=== PATIENT | female | born 1935 | race Caucasian/White ===

== ENCOUNTER 2021-03-22 13:22 | Outpatient (CLI) | payer MEDICARE, BC, SELFPAY ==
--- NOTE | ~2021-03-22 | CT_ITS ---
EXAMINATION: CT brain wo con DATE: 03/22/2021 14:09 INDICATION: Other amnesia. Headache and dizziness. TECHNIQUE: Computed tomography (CT) of the head was performed without intravenous contrast. The mA wa s adjusted according to patient size. Iterative reconstruction technique was employed. The dose-lengt h product was 605.33 mGy-cm. COMPARISON: Head CT 11/14/2012 FINDINGS: There are old infarcts involving the right basal ganglia. There is a small old infarct in r ight cerebellum. There are scattered areas of low attenuation in the cerebral white matter. There is no intracranial hemorrhage, acute infarction, or abnormal intracranial mass lesion. The ventricles ar e normal in size. There is mild mucosal thickening in the paranasal sinuses. There are likely changes of ocular lens replacement surgeries. The mastoid air cells are normal. IMPRESSION: 1. 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 2. Worsened extensive nonspecific cerebral white matter disease, which likely represents chronic smal l vessel ischemic disease. Reviewed, dictated and finalized at location A. AR MIXER OPERATOR IMPRESSION: 1. 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 2. Worsened extensive nonspecific cerebral white matter disease, which likely r epresents chronic small vessel ischemic disease.
[2021-03-22 15:12] LABS: Alanine Aminotransferase 13 U/L (4-35); Albumin Level 3.8 g/dL (3.5-5.1); Alkaline Phosphatase 87 U/L (38-126); Anion Gap 4 mmol/L (8-16); Aspartate Amino Transferase 25 U/L (14-36); Bilirubin,Total 0.4 mg/dL (0.2-1.3); Blood Urea Nitrogen 19 mg/dL (7-17); Calcium 8.8 mg/dL (8.4-10.2); Carbon Dioxide 28 mmol/L (22-30); Chloride 104 mmol/L (98-107); Estimated Glomerular Filt Rate 60; Glucose 103 mg/dL (65-110); Potassium 4.5 mmol/L (3.4-5.0); Sodium 136 mmol/L (137-145)
== END 2021-03-22 13:23 | disposition home or self-care (01) ==
PROVIDERS: PCP Internal Medicine; Visit Provider Nurse Practitioner
DX: R41.3 Other amnesia (principal); S09.90XA Unspecified injury of head, initial encounter; X58.XXXA Exposure to other specified factors, initial encounter; R93.0 Abnormal findings on diagnostic imaging of skull and head, not elsewhere classified
CPT/HCPCS: 36415; 70450; 80053; 82607; 84443

== ENCOUNTER 2021-05-10 13:19 | Outpatient (CLI) | payer MEDICARE, BC, SELFPAY ==
--- NOTE | 2021-05-10 15:14 | WPDPFTINT ---
PFT Procedure Performed PFT Procedure Performed Spirometry with Pre/Post Bronchodilator Plethysmography (Lung Vol) Diffusing Cap (DLCO) Flow Vol Loop PFT Interpretation This is a pulmonary function test with pre and post-bronchodilator spirometry, plethysmography and diffusing capacity. The test was performed and results interpreted in accordance with the 2019 and 2005 ATS/ERS Task Force guidelines respectively using the Global Lung Function Initiative-2012 reference equations. Patient demonstrated good effort and cooperation. Reproducibility criteria were met. The quality of the pre bronchodilator spirometry maneuver was Grade A and post bronchodilator spirometry maneuver was Grade A. Findings: Spirometry: There is decreased maximal expiratory airflow at all lung volumes with concave expiratory flow tracing. The pre bronchodilator FVC is 2.28 L, 104% predicted. The FEV1 is 1.24 L, 74% predicted. The FEV1: FVC ratio is 54%. The post bronchodilator FVC is 2.32 L, representing a 2% increase. The post bronchodilator FEV1 is 1.26 L, representing a 2% increase. The post bronchodilator FEV1: FVC ratio is 54%. Plethysmography: The total lung capacity is 4.91 L, 107% predicted. The functional residual capacity is 3.14 L, 118% predicted. The residual volume is 2.63 L, 113% predicted. Diffusing capacity: The diffusing capacity on adjusted for hemoglobin is 11.6, 65% predicted. The diffusing capacity adjusted for alveolar volume is 3.61, 86% predicted. Impression: There is a mild obstructive abnormality with a normal FEV1 and without significant improvement after inhaling a single dose of albuterol. The lung volumes are normal. The diffusing capacity is normal. There are no prior studies for comparison
== END 2021-05-10 13:20 | disposition home or self-care (01) ==
LOC: ANHPFT 13:22
PROVIDERS: PCP Internal Medicine; Visit Provider Internal Medicine
DX: R06.02 Shortness of breath (principal); R94.2 Abnormal results of pulmonary function studies
CPT/HCPCS: 94060; 94726; 94729

== ENCOUNTER 2021-07-20 01:14 | Day surgery (SDC) | payer MEDICARE, BC, SELFPAY ==
[2021-07-06 13:38] VITALS: BMI 30.4
[2021-07-20] MEDS: LACTATED RINGERS 1,000 ML 150 ML IV CONT (08:17)
[2021-07-20 08:21] VITALS: BP 147/58; PULSE 110; RESP 18; TEMP 36.2; O2SAT 93
--- NOTE | 2021-07-20 08:48 | PM.HPGS ---
History of Present Illness History of Present Illness Consent: Risks, benefits, and alternatives have been discussed and questions answered. Patient agrees to proceed with procedure. Chief complaint: diarrhea, dysphagia Narrative: Emerald Villafana is a 86 year old female Who has been suffering from diarrhea for about 4 months. For 10 days she has very loose watery stools. Although the consistency has improved she is still intermittently having episodes and requires Imodium. She has not seen blood in her stools. Stool studies were done for infections and they were all negative. She denies fever or abdominal pain. She has had difficulty swallowing lately with food getting hung up also she gets a discomfort in the epigastric area. she has also lost weight because lately she has been afraid to eat anything except bread water and some Ensure. If he eats a full meal she has diarrhea almost immediately. 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 Osteopenia Other and unspecified hyperlipidemia Pes anserine bursitis Post-menopause Serum potassium elevated SOB (shortness of breath) Wears glasses Surgical History Surgical History History of left knee replacement Presence of left artificial knee joint Family History Family History Mother Family history of lung disease Family history of heart disease in male family member before age 55 Sibling Patient's sister is , Onset Age: 77 Other Cerebrovascular accident Family history of arthritis Social History Social History Smoking packs per day: 1 Smoking cigarettes per day: 20.0 Years smoked: 30 Smoking pack-years: 30.00 Smoking status: Former smoker Tobacco type: cigarettes Second hand tobacco smoke exposure: Yes Smoking end date: 04/22/83 Alcohol intake: never Substance use: never Substance use type: does not use Living arrangements: alone Spiritual care concerns: No Meds Home Medications and Allergies Home Medications Medication Instructions Recorded Confirmed Type naproxen sodium 220 mg capsule 220 mg PO BID PRN 05/06/19 07/06/21 History alirocumab 150 mg/mL subcutaneous 150 mg SUB-Q .COMPLEX #2 ml 03/01/20 07/06/21 Rx pen injector ascorbate calcium (vitamin C) 500 1 g PO DAILY tablet 11/10/20 07/06/21 History mg tablet calcium carbonate 600 mg calcium 600 mg PO BID 11/10/20 07/06/21 History (1,500 mg) tablet fluoxetine 20 mg capsule See Rx Instructions .ROUTE 11/10/20 07/06/21 Rx .COMPLEX #90 capsule donepezil 10 mg tablet 10 mg PO QHS #30 tablet 03/08/21 07/06/21 Rx diphenoxylate-atropine 2.5 1 tablet PO TID PRN #20 tablet 04/01/21 07/06/21 Rx mg-0.025 mg tablet cyanocobalamin (vitamin B-12) 1,000 mcg PO BID cap 04/04/21 07/06/21 History 1,000 mcg capsule raloxifene 60 mg tablet 60 mg PO DAILY #90 tablet 06/01/21 07/06/21 Rx lansoprazole 30 mg capsule,delayed 30 mg PO DAILY #90 cap 07/17/21 Rx release Allergies Allergy/AdvReac Type Severity Reaction Status Date / Time ciprofloxacin Allergy Mild hives Verified 07/20/21 08:13 Quinolones Allergy Mild ITCH Verified 07/20/21 08:13 Sulfa (Sulfonamide Allergy Mild hives Verified 07/20/21 08:13 Antibioti
--- NOTE | 2021-07-20 09:14 | WPDANESEPPF ---
Anes - Initial Pre Proc Eval Procedure: Operation Date: 07/20/21 09:30 Proposed Procedures p Esophagogastroduodenoscopy & Colonoscopy - Bobby Puckett MD Date/Time: 07/20/21 09:14 Surgeon: Bobby Puckett MD Pre Op Diagnosis: diarrhea, dysphagia Patient Data Age: 86 Gender: F Height: 1.55 m Weight: 71 kg Last Vital Signs Temp 97.1 F L 07/20/21 08:21 Pulse 110 H 07/20/21 08:21 Resp 18 07/20/21 08:21 BP 147/58 H 07/20/21 08:21 Pulse Ox 93 07/20/21 08:21 Allergies Allergy/AdvReac Type Severity Reaction Status Date / Time ciprofloxacin Allergy Mild hives Verified 07/20/21 08:13 Quinolones Allergy Mild ITCH Verified 07/20/21 08:13 Sulfa (Sulfonamide Allergy Mild hives Verified 07/20/21 08:13 Antibiotics) Home Medications Medication Instructions Recorded Confirmed Type naproxen sodium 220 mg capsule 220 mg PO BID PRN 05/06/19 07/06/21 History alirocumab 150 mg/mL subcutaneous 150 mg SUB-Q .COMPLEX #2 ml 03/01/20 07/06/21 Rx pen injector ascorbate calcium (vitamin C) 500 1 g PO DAILY tablet 11/10/20 07/06/21 History mg tablet calcium carbonate 600 mg calcium 600 mg PO BID 11/10/20 07/06/21 History (1,500 mg) tablet fluoxetine 20 mg capsule See Rx Instructions .ROUTE 11/10/20 07/06/21 Rx .COMPLEX #90 capsule donepezil 10 mg tablet 10 mg PO QHS #30 tablet 03/08/21 07/06/21 Rx diphenoxylate-atropine 2.5 1 tablet PO TID PRN #20 tablet 04/01/21 07/06/21 Rx mg-0.025 mg tablet cyanocobalamin (vitamin B-12) 1,000 mcg PO BID cap 04/04/21 07/06/21 History 1,000 mcg capsule raloxifene 60 mg tablet 60 mg PO DAILY #90 tablet 06/01/21 07/06/21 Rx lansoprazole 30 mg capsule,delayed 30 mg PO DAILY #90 cap 07/17/21 Rx release Patient hx anesthesia problems: none Family hx anesthesia problems: none Results Review: All pre-operative results and documents have been reviewed as part of the pre-operative evaluation. [facility] Past Medical History Medical History Anemia Anxiety Arthritis ASHD (arteriosclerotic heart disease) B12 deficiency Benign essential hypertension Cerumen impaction Closed head injury without loss of consciousness Depression Diarrhea Diverticulitis Dysphagia Elevated hematocrit Hx of colonic polyp Hyperlipemia IGT (impaired glucose tolerance) Imbalance Iron deficiency anemia Left knee pain Memory loss Nausea Obesity On nursing home drug therapy Osteopenia Other and unspecified hyperlipidemia Pes anserine bursitis Post-menopause Serum potassium elevated SOB (shortness of breath) Wears glasses Surgical History Surgical History History of left knee replacement Presence of left artificial knee joint Family History Family History Mother Family history of lung disease Family history of heart disease in male family member before age 55 Sibling Patient's sister is , Onset Age: 77 Other Cerebrovascular accident Family history of arthritis Social History Social History Smoking packs per day: 1 Smoking cigarettes per day: 20.0 Years smoked: 30 Smoking pack-years: 30.00 Smoking status: Former smoker Tobacco type: cigarettes Second hand tobacco smoke exposure: Yes Smoking end date: 04/22/83 Alcohol intake: never Substance use: never Substance use type: does not use Living arrangements: alone Spiritual care concerns: No Anes - Eval Final PreProcedure Day of Procedure 07/20/21 09:14 Patient weight: normal Heart: regular rate and rhythm Lungs: clear to auscultation Airway: Mallampati scale class II Neurological: alert and oriented Last oral intake: >/= 8 hours ASA classification: III Emergent: no Anesthetic plan: proceed Anesthesia type and monitoring: general GIVS and st
--- NOTE | 2021-07-20 09:50 | SUR.OPER ---
EGD End: 943 COLONOSCOPY START: 948
[2021-07-20 10:04] VITALS: BP 144/58; PULSE 77; RESP 18; O2SAT 98
[2021-07-20 10:14] VITALS: BP 143/69; PULSE 74; RESP 20; O2SAT 94
[2021-07-20 10:24] VITALS: BP 179/86; PULSE 71; RESP 18; O2SAT 95
== END 2021-07-20 10:36 | disposition home or self-care (01) ==
PROVIDERS: PCP Internal Medicine; Visit Provider Internal Medicine Gastroenterology
PROC: 0DJ08ZZ Inspection of Upper Intestinal Tract, Via Natural or Artificial Opening Endoscopic (ICD-10-PCS; CPT 43235; principal; 2021-07-20 09:30)
DX: R19.7 Diarrhea, unspecified (principal); K57.30 Diverticulosis of large intestine without perforation or abscess without bleeding; K64.8 Other hemorrhoids; K22.2 Esophageal obstruction; K44.9 Diaphragmatic hernia without obstruction or gangrene; K29.70 Gastritis, unspecified, without bleeding; K31.7 Polyp of stomach and duodenum; R63.4 Abnormal weight loss; I10 Essential (primary) hypertension; E78.5 Hyperlipidemia, unspecified; D50.9 Iron deficiency anemia, unspecified; F41.8 Other specified anxiety disorders; I25.10 Atherosclerotic heart disease of native coronary artery without angina pectoris; E53.8 Deficiency of other specified B group vitamins; M85.80 Other specified disorders of bone density and structure, unspecified site; Z87.891 Personal history of nicotine dependence
CPT/HCPCS: 45380; 43251; 43249; 43239; 87081; 88305; C1726; J2704; J7120

== ENCOUNTER 2021-08-16 14:24 | Outpatient (CLI) | payer MEDICARE, BC, SELFPAY ==
[2021-08-16 14:55] LABS: Basophils Percent Auto 0.3 % (0.2-1.2); Eosinophils Absolute Auto 0.2 K/mm3 (0-0.3); Eosinophils Percent Auto 1.6 % (0-4.4); Hematocrit 47.9 % (37.0-47.0); Hemoglobin 15.2 g/dL (12.0-15.0); Immature Granulocyte Absolute 0.04 K/mm3 (0.00-0.031); Immature Granulocyte Percent A 0.4 % (0-0.5); Lymphocytes Absolute Auto 2.27 K/mm3 (0.9-3.2); Lymphocytes Percent Auto 22.9 % (18.3-44.2); Mean Corpuscular HGB Conc 31.7 g/dl (32-36); Mean Corpuscular Hemoglobin 31.5 pg (26-34); Mean Corpuscular Volume 99.4 fl (80-100); Mean Platelet Volume 10.1 fl (7.4-10.4); Monocytes Absolute Auto 0.6 K/mm3 (0.1-0.6); Monocytes Percent Auto 6.5 % (2.6-8.5); Neutrophils Absolute Auto 6.8 K/mm3 (1.3-6.7); Neutrophils Percent Auto 68.3 % (45.5-73.1); Platelet Count Result 278 k/mm3 (150-375); Red Blood Count 4.82 M/mm3 (4.2-5.4); Red Cell Distribution Width 13.9 % (11.5-14.5); White Blood Count 9.9 K/mm3 (4.5-10.0)
[2021-08-16 15:16] LABS: Alanine Aminotransferase 12 U/L (4-35); Albumin Level 3.7 g/dL (3.5-5.1); Alkaline Phosphatase 101 U/L (38-126); Anion Gap 5 mmol/L (8-16); Aspartate Amino Transferase 24 U/L (14-36); Bilirubin,Total 0.3 mg/dL (0.2-1.3); Blood Urea Nitrogen 24 mg/dL (7-17); Calcium 8.5 mg/dL (8.4-10.2); Carbon Dioxide 29 mmol/L (22-30); Chloride 105 mmol/L (98-107); Estimated Glomerular Filt Rate 53; Glucose 97 mg/dL (65-110); Potassium 4.5 mmol/L (3.4-5.0); Sodium 139 mmol/L (137-145)
== END 2021-08-16 14:25 | disposition home or self-care (01) ==
PROVIDERS: PCP Internal Medicine; Visit Provider Internal Medicine
DX: R19.7 Diarrhea, unspecified (principal)
CPT/HCPCS: 36415; 80053; 85025

== ENCOUNTER 2021-11-21 15:51 | Outpatient (CLI) | payer MEDICARE, BC, SELFPAY ==
[2021-11-25 11:24] LABS: Red Blood Cell Folate 338 ng/mL RBC (>280)
== END 2021-11-21 15:52 | disposition home or self-care (01) ==
LOC: ANHLAB 16:04
PROVIDERS: PCP Internal Medicine; Visit Provider Nurse Practitioner
DX: R41.3 Other amnesia (principal)
CPT/HCPCS: 36415; 82607; 82747

== ENCOUNTER 2022-02-05 08:19 | Outpatient (CLI) | payer MEDICARE, BC, SELFPAY ==
--- NOTE | ~2022-02-05 | XR_ITS ---
EXAMINATION: XR chest 2V DATE: 02/05/2022 08:47 INDICATION: Shortness of breath TECHNIQUE: PA and lateral views of the chest are obtained. COMPARISON: 11/10/2014 FINDINGS: The lungs are free of acute opacities. No pleural effusion or pneumothorax. The cardiomedia stinal silhouette is normal. There is moderate thoracic spondylosis. IMPRESSION: 1. No acute cardiopulmonary abnormality. Reviewed, dictated and finalized at location A.
== END 2022-02-05 08:20 | disposition home or self-care (01) ==
LOC: ANHIMG 08:32
PROVIDERS: PCP Internal Medicine
DX: R06.09 Other forms of dyspnea (principal)
CPT/HCPCS: 71046

== ENCOUNTER 2022-04-19 09:25 | Outpatient (CLI) | payer MEDICARE, BC, SELFPAY ==
--- NOTE | ~2022-04-19 | US_ITS ---
Abdominal Sonogram: Real-time sonographic imaging of the abdomen was performed. Clinical History: Abdominal pain Findings: The liver appears normal with no evidence of mass lesion or bile duct dilatation. Main por rob vein demonstrates normal direction of flow. The spleen is normal in size without evidence of foca l lesion. The gallbladder is absent, compatible prior cholecystectomy. The common bile duct measures 9 mm. The visualized pancreas pancreas and IVC are unremarkable. There is minimal dilatation of the distal abdominal aorta at 2.6 cm. The right kidney measures 8.1 cm in length and the left kidney me asures 9.9 cm. There is no hydronephrosis or renal calculus. Impression: Status post cholecystectomy. Mild dilatation of the distal abdominal aorta to 2.6 cm. Reviewed, dictated and finalized at location . SUPERVISOR Impression: Status post cholecystectomy. Mild dilatation of the distal abdominal aorta to 2.6 cm.
== END 2022-04-19 09:26 | disposition home or self-care (01) ==
PROVIDERS: PCP Internal Medicine; Visit Provider Internal Medicine
DX: I77.811 Abdominal aortic ectasia (principal); R10.9 Unspecified abdominal pain; K52.9 Noninfective gastroenteritis and colitis, unspecified
CPT/HCPCS: 76700

== ENCOUNTER 2022-04-30 01:14 | Day surgery (SDC) | payer MEDICARE, BC, SELFPAY ==
[2022-04-17 10:31] VITALS: BMI 33.0
--- NOTE | 2022-04-28 20:07 | PM.HPGS ---
History of Present Illness History of Present Illness Consent: Risks, benefits, and alternatives have been discussed and questions answered. Patient agrees to proceed with procedure. Chief complaint: Dysphagia, Esophageal Stricture Narrative: Emerald Villafana is a 86 year old female with a history of esophageal stricture, now with dysphagia Review of Systems Review of Systems: All systems reviewed & are unremarkable except as noted in HPI and below PMFSH Past Medical History Medical History Anemia Anxiety Arthritis ASHD (arteriosclerotic heart disease) B12 deficiency Benign essential hypertension Cerumen impaction Closed head injury without loss of consciousness Depression Diarrhea Diverticulitis Dysphagia Elevated hematocrit Hx of colonic polyp Hyperlipemia IGT (impaired glucose tolerance) Imbalance Iron deficiency anemia Left knee pain Memory loss Nausea Obesity On correction drug therapy Osteopenia Other and unspecified hyperlipidemia Pes anserine bursitis Post-menopause Serum potassium elevated SOB (shortness of breath) Wears glasses Surgical History Surgical History History of left knee replacement Presence of left artificial knee joint Family History Family History Mother Family history of lung disease Family history of heart disease in male family member before age 55 Sibling Patient's sister is , Onset Age: 77 Other Cerebrovascular accident Family history of arthritis Social History Social History Smoking packs per day: 1 Smoking cigarettes per day: 20.0 Years smoked: 30 Smoking pack-years: 30.00 Smoking status: Former smoker Tobacco type: cigarettes Second hand tobacco smoke exposure: Yes Smoking end date: 04/22/83 Alcohol intake: never Substance use: never Substance use type: does not use Lack of Transportation: YES Lack of Food: Never True Current Housing: I Have Housing Concerned About Future Housing: No Difficulty Paying Gas/Electric Bills: No Difficulty Paying for Meds: No Currently Unemployed: No Education: High School Diploma/GED Difficulty w/ Childcare or Family Care: No Spiritual care concerns: No Meds Home Medications and Allergies Home Medications Medication Instructions Recorded Confirmed Type naproxen sodium 220 mg capsule 220 mg PO BID PRN Pain, Mild 05/06/19 04/17/22 History (Aleve) ascorbate calcium (vitamin C) 500 1 g PO DAILY 11/10/20 04/17/22 History mg tablet calcium carbonate 600 mg calcium 600 mg PO BID 11/10/20 04/17/22 History (1,500 mg) tablet (Calcium) cyanocobalamin (vitamin B-12) 1,000 mcg PO BID 04/04/21 04/17/22 History 1,000 mcg capsule alirocumab 150 mg/mL subcutaneous 150 mg subcut .COMPLEX #2 mL 03/21/22 04/17/22 Rx pen injector (Praluent Pen) diphenoxylate-atropine 2.5 1 tablet PO TID PRN diarrhea #20 03/21/22 04/17/22 Rx mg-0.025 mg tablet (Lomotil) tabs donepezil 10 mg tablet 10 mg PO QHS #90 tabs 03/21/22 04/17/22 Rx fluoxetine 20 mg capsule See Rx Instructions .Route 03/21/22 04/17/22 Rx .COMPLEX #90 caps lansoprazole 30 mg capsule,delayed 30 mg PO DAILY #90 caps 03/21/22 04/17/22 Rx release (Prevacid) raloxifene 60 mg tablet (Evista) 60 mg PO DAILY #90 tabs 03/21/22 04/17/22 Rx cholestyramine-aspartame 4 gram 4 g PO DAILY #210 grams 04/03/22 04/17/22 Rx oral powder (Questran Light) cholestyramine-aspartame 4 gram 1 ea PO DAILY 04/17/22 04/17/22 History oral powder for susp in a packet (Prevalite) Allergies Allergy/AdvReac Type Severity Reaction Status Date / Time ciprofloxacin Allergy Mild hives Verified 03/13/22 15:08 Quinolones Allergy Mild ITCH Verified 03/13/22 15:08 Sulfa (Sulfonamide Allergy Mild hives Verifi
[2022-04-30 09:44] VITALS: BP 149/100; PULSE 96; RESP 20; TEMP 36.1; O2SAT 96; BMI 29.3
[2022-04-30] MEDS: LACTATED RINGERS 1,000 ML 150 ML IV CONT (09:57)
--- NOTE | 2022-04-30 10:12 | WPDANESEPPF ---
Anes - Initial Pre Proc Eval Procedure: Operation Date: 04/30/22 10:30 Proposed Procedures p Esophagogastroduodenoscopy - Bobby Puckett MD Date/Time: 04/30/22 10:12 Surgeon: Bobby Puckett MD Pre Op Diagnosis: Dysphagia, Esophageal Stricture Patient Data Age: 86 Gender: F Height: 1.57 m Weight: 72.8 kg Last Vital Signs Temp 97 F L 04/30/22 09:44 Pulse 96 04/30/22 09:44 Resp 20 04/30/22 09:44 BP 149/100 H 04/30/22 09:44 Pulse Ox 96 04/30/22 09:44 O2 Del Method Room Air 04/30/22 09:44 Allergies Allergy/AdvReac Type Severity Reaction Status Date / Time ciprofloxacin Allergy Mild hives Verified 03/13/22 15:08 Quinolones Allergy Mild ITCH Verified 03/13/22 15:08 Sulfa (Sulfonamide Allergy Mild hives Verified 03/13/22 15:08 Antibiotics) Home Medications Medication Instructions Recorded Confirmed Type naproxen sodium 220 mg capsule 220 mg PO BID PRN Pain, Mild 05/06/19 04/17/22 History (Aleve) ascorbate calcium (vitamin C) 500 1 g PO DAILY 11/10/20 04/17/22 History mg tablet calcium carbonate 600 mg calcium 600 mg PO BID 11/10/20 04/17/22 History (1,500 mg) tablet (Calcium) cyanocobalamin (vitamin B-12) 1,000 mcg PO BID 04/04/21 04/17/22 History 1,000 mcg capsule alirocumab 150 mg/mL subcutaneous 150 mg subcut .COMPLEX #2 mL 03/21/22 04/17/22 Rx pen injector (Praluent Pen) diphenoxylate-atropine 2.5 1 tablet PO TID PRN diarrhea #20 03/21/22 04/17/22 Rx mg-0.025 mg tablet (Lomotil) tabs donepezil 10 mg tablet 10 mg PO QHS #90 tabs 03/21/22 04/17/22 Rx fluoxetine 20 mg capsule See Rx Instructions .Route 03/21/22 04/17/22 Rx .COMPLEX #90 caps lansoprazole 30 mg capsule,delayed 30 mg PO DAILY #90 caps 03/21/22 04/17/22 Rx release (Prevacid) raloxifene 60 mg tablet (Evista) 60 mg PO DAILY #90 tabs 03/21/22 04/17/22 Rx cholestyramine-aspartame 4 gram 4 g PO DAILY #210 grams 04/03/22 04/17/22 Rx oral powder (Questran Light) cholestyramine-aspartame 4 gram 1 ea PO DAILY 04/17/22 04/17/22 History oral powder for susp in a packet (Prevalite) Patient hx anesthesia problems: none Family hx anesthesia problems: none Results Review: All pre-operative results and documents have been reviewed as part of the pre-operative evaluation. 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 Osteopenia Other and unspecified hyperlipidemia Pes anserine bursitis Post-menopause Serum potassium elevated SOB (shortness of breath) Wears glasses Surgical History Surgical History History of left knee replacement Presence of left artificial knee joint Family History Family History Mother Family history of lung disease Family history of heart disease in male family member before age 55 Sibling Patient's sister is , Onset Age: 77 Other Cerebrovascular accident Family history of arthritis Social History Social History (Updated 03/13/22 @ 15:10 by Patrice Davey MA) Smoking packs per day: 1 Smoking cigarettes per day: 20.0 Years smoked: 30 Smoking pack-years: 30.00 Smoking status: Former smoker Tobacco type: cigarettes Second hand tobacco smoke exposure: Yes Smoking end date: 04/22/83 Alcohol intake: never Substance use: never Substance use type: does not use Lack of Transportation: YES Lack of Food: Never True Current Housing:
[2022-04-30 10:35] VITALS: BP 141/67; PULSE 81; RESP 16; O2SAT 99
[2022-04-30 10:45] VITALS: BP 146/70; PULSE 83; RESP 20; O2SAT 95
[2022-04-30 10:55] VITALS: BP 155/88; PULSE 78; RESP 20; O2SAT 95
== END 2022-04-30 11:09 | disposition home or self-care (01) ==
PROVIDERS: PCP Internal Medicine; Visit Provider Internal Medicine Gastroenterology
PROC: 0DJ08ZZ Inspection of Upper Intestinal Tract, Via Natural or Artificial Opening Endoscopic (ICD-10-PCS; CPT 43235; principal; 2022-04-30 10:30)
DX: K22.2 Esophageal obstruction (principal); I10 Essential (primary) hypertension; F41.9 Anxiety disorder, unspecified; F32.A Depression, unspecified; I25.10 Atherosclerotic heart disease of native coronary artery without angina pectoris; E53.8 Deficiency of other specified B group vitamins; E78.5 Hyperlipidemia, unspecified; D50.9 Iron deficiency anemia, unspecified; Z87.891 Personal history of nicotine dependence
CPT/HCPCS: 43249; 88305; C1726; J2704; J7120

== ENCOUNTER 2022-07-19 01:05 | Day surgery (SDC) | payer MEDICARE, BC, SELFPAY ==
[2022-07-06 14:29] VITALS: BMI 31.3
--- NOTE | 2022-07-18 14:23 | PM.HPGS ---
History of Present Illness History of Present Illness Consent: Risks, benefits, and alternatives have been discussed and questions answered. Patient agrees to proceed with procedure. Chief complaint: Dysphagia Narrative: Emerald Villafana is a 87 year old female Who is having dysphagia for solid food. A few months ago she had endoscopy and a stricture was dilated up to 18 mm. She continues to have episodes of dysphagia. Review of Systems Review of Systems: All systems reviewed & are unremarkable except as noted in HPI and below PMFSH Past Medical History Medical History Anemia Anxiety Arthritis ASHD (arteriosclerotic heart disease) B12 deficiency Benign essential hypertension Cerumen impaction Closed head injury without loss of consciousness Depression Diarrhea Diverticulitis Dysphagia Elevated hematocrit Hx of colonic polyp Hyperlipemia IGT (impaired glucose tolerance) Imbalance Iron deficiency anemia Left knee pain Memory loss Nausea Obesity On [facility] drug therapy Osteopenia Other and unspecified hyperlipidemia Pes anserine bursitis Post-menopause Serum potassium elevated SOB (shortness of breath) Wears glasses Surgical History Surgical History History of left knee replacement Presence of left artificial knee joint Family History Family History Mother Family history of lung disease Family history of heart disease in male family member before age 55 Sibling Patient's sister is , Onset Age: 77 Other Cerebrovascular accident Family history of arthritis Social History Social History Smoking packs per day: 1 Smoking cigarettes per day: 20.0 Years smoked: 30 Smoking pack-years: 30.00 Smoking status: Former smoker Tobacco type: cigarettes Second hand tobacco smoke exposure: Yes Smoking end date: 04/22/83 Alcohol intake: never Substance use: never Substance use type: does not use Lack of Transportation: YES Lack of Food: Never True Current Housing: I Have Housing Concerned About Future Housing: No Difficulty Paying Gas/Electric Bills: No Difficulty Paying for Meds: No Currently Unemployed: No Education: High School Diploma/GED Difficulty w/ Childcare or Family Care: No Living arrangements: assisted living Spiritual care concerns: No Meds Home Medications and Allergies Home Medications Medication Instructions Recorded Confirmed Type naproxen sodium 220 mg capsule 220 mg PO BID PRN Pain, Mild 05/06/19 07/19/22 History (Aleve) ascorbate calcium (vitamin C) 500 1 g PO DAILY 11/10/20 07/19/22 History mg tablet calcium carbonate 600 mg calcium 600 mg PO BID 11/10/20 07/19/22 History (1,500 mg) tablet (Calcium) cyanocobalamin (vitamin B-12) 1,000 mcg PO BID 04/04/21 07/19/22 History 1,000 mcg capsule alirocumab 150 mg/mL subcutaneous 150 mg subcut .COMPLEX #2 mL 03/21/22 07/19/22 Rx pen injector (Praluent Pen) diphenoxylate-atropine 2.5 1 tablet PO TID PRN diarrhea #20 03/21/22 07/19/22 Rx mg-0.025 mg tablet (Lomotil) tabs donepezil 10 mg tablet 10 mg PO QHS #90 tabs 03/21/22 07/19/22 Rx fluoxetine 20 mg capsule See Rx Instructions .Route 03/21/22 07/19/22 Rx .COMPLEX #90 caps lansoprazole 30 mg capsule,delayed 30 mg PO DAILY #90 caps 03/21/22 07/19/22 Rx release (Prevacid) cholestyramine-aspartame 4 gram 4 g PO DAILY #210 grams 04/03/22 07/19/22 Rx oral powder (Questran Light) cholestyramine-aspartame 4 gram 1 ea PO DAILY 04/17/22 07/19/22 History oral powder for susp in a packet (Prevalite) raloxifene 60 mg tablet (Evista) 60 mg PO DAILY #90 tabs 07/04/22 07/19/22 Rx albuterol sulfate 90 mcg/actuation 2 inh inhalation Q4-6H #8.5 grams 07/06/22 07/19/22 Rx aerosol inhaler (
[2022-07-19 09:52] VITALS: BP 152/85; PULSE 103; RESP 18; TEMP 36.3; O2SAT 94
[2022-07-19] MEDS: LACTATED RINGERS 1,000 ML 150 ML IV CONT (09:59)
--- NOTE | 2022-07-19 10:10 | WPDANESEPPF ---
Anes - Initial Pre Proc Eval Procedure: Operation Date: 07/19/22 10:30 Proposed Procedures p Esophagogastroduodenoscopy - Bobby Puckett MD Date/Time: 07/19/22 10:10 Surgeon: Bobby Puckett MD Pre Op Diagnosis: Dysphagia Patient Data Age: 87 Gender: F Height: 1.52 m Weight: 68 kg Last Vital Signs Temp 36.3 C L 07/19/22 09:52 Pulse 103 H 07/19/22 09:52 Resp 18 07/19/22 09:52 BP 152/85 H 07/19/22 09:52 Pulse Ox 94 07/19/22 09:52 O2 Del Method Room Air 07/19/22 09:52 Allergies Allergy/AdvReac Type Severity Reaction Status Date / Time ciprofloxacin Allergy Mild hives Verified 07/19/22 09:51 Quinolones Allergy Mild ITCH Verified 07/19/22 09:51 Sulfa (Sulfonamide Allergy Mild hives Verified 07/19/22 09:51 Antibiotics) Home Medications Medication Instructions Recorded Confirmed Type naproxen sodium 220 mg capsule 220 mg PO BID PRN Pain, Mild 05/06/19 07/19/22 History (Aleve) ascorbate calcium (vitamin C) 500 1 g PO DAILY 11/10/20 07/19/22 History mg tablet calcium carbonate 600 mg calcium 600 mg PO BID 11/10/20 07/19/22 History (1,500 mg) tablet (Calcium) cyanocobalamin (vitamin B-12) 1,000 mcg PO BID 04/04/21 07/19/22 History 1,000 mcg capsule alirocumab 150 mg/mL subcutaneous 150 mg subcut .COMPLEX #2 mL 03/21/22 07/19/22 Rx pen injector (Praluent Pen) diphenoxylate-atropine 2.5 1 tablet PO TID PRN diarrhea #20 03/21/22 07/19/22 Rx mg-0.025 mg tablet (Lomotil) tabs donepezil 10 mg tablet 10 mg PO QHS #90 tabs 03/21/22 07/19/22 Rx fluoxetine 20 mg capsule See Rx Instructions .Route 03/21/22 07/19/22 Rx .COMPLEX #90 caps lansoprazole 30 mg capsule,delayed 30 mg PO DAILY #90 caps 03/21/22 07/19/22 Rx release (Prevacid) cholestyramine-aspartame 4 gram 4 g PO DAILY #210 grams 04/03/22 07/19/22 Rx oral powder (Questran Light) cholestyramine-aspartame 4 gram 1 ea PO DAILY 04/17/22 07/19/22 History oral powder for susp in a packet (Prevalite) raloxifene 60 mg tablet (Evista) 60 mg PO DAILY #90 tabs 07/04/22 07/19/22 Rx albuterol sulfate 90 mcg/actuation 2 inh inhalation Q4-6H #8.5 grams 07/06/22 07/19/22 Rx aerosol inhaler (ProAir HFA) evolocumab 140 mg/mL subcutaneous 140 mg subcut WEEKLY 07/06/22 07/19/22 History pen injector (Repatha SureClick) hyoscyamine sulfate 0.375 mg 0.375 mg PO DAILY@0800 #30 tabs 07/10/22 07/19/22 Rx tablet,extended release,12 hr (Levbid) Patient hx anesthesia problems: none Family hx anesthesia problems: none Results Review: All pre-operative results and documents have been reviewed as part of the pre-operative evaluation. [facility] Past Medical History Medical History Anemia Anxiety Arthritis ASHD (arteriosclerotic heart disease) B12 deficiency Benign essential hypertension Cerumen impaction Closed head injury without loss of consciousness Depression Diarrhea Diverticulitis Dysphagia Elevated hematocrit Hx of colonic polyp Hyperlipemia IGT (impaired glucose tolerance) Imbalance Iron deficiency anemia Left knee pain Memory loss Nausea Obesity On prison drug therapy Osteopenia Other and unspecified hyperlipidemia Pes anserine bursitis Post-menopause Serum potassium elevated SOB (shortness of breath) Wears glasses Surgical History Surgical History History of left knee replacement Presence of left artificial knee joint Family History Family History Mother Family history of lung disease Family history of heart disease in male family member before age 55 Sibling Patient's sister is , Onset Age: 77 Other Cerebrovascular accident Family history of arthritis Social History Social History Smoking packs per day: 1 Smoking cigarettes per d
[2022-07-19 11:23] VITALS: BP 175/84; PULSE 84; RESP 20; O2SAT 96
[2022-07-19 11:33] VITALS: BP 183/87; PULSE 80; RESP 18; O2SAT 100
[2022-07-19 11:43] VITALS: BP 190/102; PULSE 72; RESP 18; O2SAT 99
--- NOTE | 2022-07-19 11:51 | SUR.PHASEII ---
DR BRIGGS MADE AWARE OF PT'S BLOOD PRESSURE 190/102 AND PAST VITAL SIGNS, NO NEW ORDERS RECEIVED, DR STATES PT TO BE DISCHARGED AND RESUME HOME MEDICATIONS AFTER DISCHARGE. PT MADE AWARE WELL BRIGHTLY CUSTODIAL FACILITY, ALL STATE UNDERSTANDING.
== END 2022-07-19 12:08 | disposition home or self-care (01) ==
PROVIDERS: PCP Internal Medicine; Visit Provider Internal Medicine Gastroenterology
PROC: 0DJ08ZZ Inspection of Upper Intestinal Tract, Via Natural or Artificial Opening Endoscopic (ICD-10-PCS; CPT 43235; principal; 2022-07-19 10:30)
DX: K22.2 Esophageal obstruction (principal); I25.10 Atherosclerotic heart disease of native coronary artery without angina pectoris; I10 Essential (primary) hypertension; F41.9 Anxiety disorder, unspecified; F32.A Depression, unspecified; E78.5 Hyperlipidemia, unspecified; Z79.51 Long term (current) use of inhaled steroids; Z87.891 Personal history of nicotine dependence
CPT/HCPCS: 43249; C1726; J2704; J7120

== ENCOUNTER 2022-08-08 14:03 | Emergency (ER) | payer MEDICARE, BC, SELFPAY ==
--- NOTE | ~2022-08-08 | CT_ITS ---
EXAMINATION: CT pelvis wo con DATE: 08/08/2022 15:04 INDICATION: Right hip pain TECHNIQUE: Computed tomography (CT) of the pelvis was performed without intravenous contrast. The dos e-length product was 368.71 mGy-cm. COMPARISON: CT dated 07/22/2018 FINDINGS: There is osteoarthritis of the hips, symmetric. Mild degenerative changes of the sacroiliac joints. There is lower lumbar spondylosis partially visualized. No focal lytic or blastic lesions. T here is grade 1 spondylolisthesis at L4-5. There is atherosclerosis. Colonic diverticulosis without e vidence for diverticulitis. No acute fracture or traumatic malalignment. IMPRESSION: 1. No acute fracture. 2: Moderate symmetric osteoarthritis of the hips. Reviewed, dictated and finalized at location A.
[2022-08-08 14:11] VITALS: BP 171/99; PULSE 95; RESP 16; TEMP 36.8; O2SAT 96
--- NOTE | 2022-08-08 14:44 | ED.FALL ---
HPI - Fall General Chief Complaint: Fall Stated Complaint: fall, right hip pain Time Seen by Provider: 08/08/22 14:20 History of Present Illness HPI Narrative: Patient is an 87-year-old female presenting with right hip pain. Patient states that a couple of days ago she missed the toilet when she was trying to sit down. States that she hit her right hip on the toilet seat. States that since that time she has had a lot of pain in her right hip with walking. Denies weakness or numbness. Denies further injuries or complaints. Related Data Home Medications Medication Instructions Recorded Confirmed naproxen sodium 220 mg capsule 220 mg PO BID PRN Pain, Mild 05/06/19 07/19/22 (Aleve) ascorbate calcium (vitamin C) 500 1 g PO DAILY 11/10/20 07/19/22 mg tablet calcium carbonate 600 mg calcium 600 mg PO BID 11/10/20 07/19/22 (1,500 mg) tablet (Calcium) cyanocobalamin (vitamin B-12) 1,000 mcg PO BID 04/04/21 07/19/22 1,000 mcg capsule cholestyramine-aspartame 4 gram 1 ea PO DAILY 04/17/22 07/19/22 oral powder for susp in a packet (Prevalite) evolocumab 140 mg/mL subcutaneous 140 mg subcut WEEKLY 07/06/22 07/19/22 pen injector (Mykel Penaloza) Allergies Allergy/AdvReac Type Severity Reaction Status Date / Time ciprofloxacin Allergy Mild hives Verified 08/08/22 14:13 Quinolones Allergy Mild ITCH Verified 08/08/22 14:13 Sulfa (Sulfonamide Allergy Mild hives Verified 08/08/22 14:13 Antibiotics) Review of Systems Review of Systems: All systems reviewed & are unremarkable except as noted in HPI and below PMFSH Past Medical History Medical History Anemia Anxiety Arthritis ASHD (arteriosclerotic heart disease) B12 deficiency Benign essential hypertension Cerumen impaction Closed head injury without loss of consciousness Depression Diarrhea Diverticulitis Dysphagia Elevated hematocrit Hx of colonic polyp Hyperlipemia IGT (impaired glucose tolerance) Imbalance Iron deficiency anemia Left knee pain Memory loss Nausea Obesity On jail drug therapy Osteopenia Other and unspecified hyperlipidemia Pes anserine bursitis Post-menopause Serum potassium elevated SOB (shortness of breath) Wears glasses Surgical History Surgical History History of left knee replacement Presence of left artificial knee joint Family History Family History Mother Family history of lung disease Family history of heart disease in male family member before age 55 Sibling Patient's sister is , Onset Age: 77 Other Cerebrovascular accident Family history of arthritis Social History Social History Smoking packs per day: 1 Smoking cigarettes per day: 20.0 Years smoked: 30 Smoking pack-years: 30.00 Smoking status: Former smoker Tobacco type: cigarettes Second hand tobacco smoke exposure: Yes Smoking end date: 04/22/83 Alcohol intake: never Substance use: never Substance use type: does not use Lack of Transportation: YES Lack of Food: Never True Current Housing: I Have Housing Concerned About Future Housing: No Difficulty Paying Gas/Electric Bills: No Difficulty Paying for Meds: No Currently Unemployed: No Education: High School Diploma/GED Difficulty w/ Childcare or Family Care: No Living arrangements: assisted living Spiritual care concerns: No Exam Narrative: GENERAL: Well-appearing, well-nourished, and in no acute distress. HEAD: Normocephalic, atraumatic. EYES: PERRLA and EOMI. ENT: Nares clear, no rhinorrhea or epistaxis. Mucous membranes moist. NECK: Supple. CHEST: Clear to auscultation. No respiratory distress. HEART: Regular rate and rhythm. Normal peripheral pulses. ABDOMEN: Soft, nontender, nondist
[2022-08-08] MEDS: ACETAMINOPHEN 500 MG TABLET 1000 MG PO (15:15)
[2022-08-08 17:12] VITALS: BP 171/82; PULSE 69; RESP 16; O2SAT 97
== END 2022-08-08 17:13 | disposition home or self-care (01) ==
PROVIDERS: Emergency Provider Emergency Medicine; PCP Internal Medicine
DX: S79.911A Unspecified injury of right hip, initial encounter (principal); M16.0 Bilateral primary osteoarthritis of hip; I25.10 Atherosclerotic heart disease of native coronary artery without angina pectoris; I10 Essential (primary) hypertension; D50.9 Iron deficiency anemia, unspecified; E53.8 Deficiency of other specified B group vitamins; E78.49 Other hyperlipidemia; E66.9 Obesity, unspecified; Z68.27 Body mass index [BMI] 27.0-27.9, adult; M85.80 Other specified disorders of bone density and structure, unspecified site; Z96.652 Presence of left artificial knee joint; Z86.010 Personal history of colon polyps; Z87.891 Personal history of nicotine dependence; W22.8XXA Striking against or struck by other objects, initial encounter
CPT/HCPCS: 72192; 99284; A9270

== ENCOUNTER 2022-10-01 14:35 | Outpatient (CLI) | payer MEDICARE, BC, SELFPAY ==
--- NOTE | ~2022-10-01 | CT_ITS ---
EXAMINATION: CT brain wo con DATE: 10/01/2022 15:07 INDICATION: Dementia TECHNIQUE: Computed tomography (CT) of the head was performed without intravenous contrast. The dose- length product was 605.33 mGy-cm. Automated exposure control and iterative reconstruction technique w ere employed. COMPARISON: CT dated 03/22/2021 FINDINGS: Generalized atrophy. There are scattered severe periventricular and subcortical white matte r changes, most likely related to small vessel ischemic disease (microangiopathy). No acute intracran ial hemorrhage, infarction, mass or mass effect. There is a chronic lacunar infarction of the right c audate nucleus. There is intracranial atherosclerosis. Paranasal sinuses and mastoids are pneumatized . No depressed skull fractures. IMPRESSION: 1. No acute intracranial abnormality. 2: Spur chronic right lacunar infarction. 3: Chronic age-related findings. Reviewed, dictated and finalized at location []
== END 2022-10-01 14:36 | disposition home or self-care (01) ==
PROVIDERS: PCP Internal Medicine; Visit Provider Internal Medicine
DX: F03.90 Unspecified dementia, unspecified severity, without behavioral disturbance, psychotic disturbance, mood disturbance, and anxiety (principal)
CPT/HCPCS: 70450

== ENCOUNTER 2022-11-08 11:18 | Outpatient (CLI) | payer MEDICARE, BC, SELFPAY ==
[2022-11-08 12:20] LABS: Basophils Percent Auto 0.4 % (0.2-1.2); Eosinophils Absolute Auto 0.1 K/mm3 (0-0.3); Eosinophils Percent Auto 1.3 % (0-4.4); Hematocrit 47.4 % (37.0-47.0); Immature Granulocyte Absolute 0.02 K/mm3 (0.00-0.031); Immature Granulocyte Percent A 0.2 % (0-0.5); Lymphocytes Absolute Auto 1.89 K/mm3 (0.9-3.2); Lymphocytes Percent Auto 22.6 % (18.3-44.2); Mean Corpuscular HGB Conc 31.6 g/dl (32-36); Mean Corpuscular Volume 97.9 fl (80-100); Mean Platelet Volume 10.4 fl (7.4-10.4); Monocytes Absolute Auto 0.5 K/mm3 (0.1-0.6); Monocytes Percent Auto 5.9 % (2.6-8.5); Neutrophils Absolute Auto 5.8 K/mm3 (1.3-6.7); Neutrophils Percent Auto 69.6 % (45.5-73.1); Platelet Count Result 254 k/mm3 (150-375); Red Blood Count 4.84 M/mm3 (4.2-5.4); Red Cell Distribution Width 13.5 % (11.5-14.5); White Blood Count 8.4 K/mm3 (4.5-10.0)
[2022-11-08 12:47] LABS: Iron 81 ug/dL (37-170)
[2022-11-08 12:50] LABS: Vitamin D 25 Hydroxy 46.7 ng/mL
[2022-11-08 12:56] LABS: Alanine Aminotransferase 17 U/L (6-35); Albumin Level 4.1 g/dL (3.5-5.1); Alkaline Phosphatase 88 U/L (38-126); Anion Gap 4 mmol/L (8-16); Aspartate Amino Transferase 23 U/L (14-36); Bilirubin,Total 0.6 mg/dL (0.2-1.3); Blood Urea Nitrogen 14 mg/dL (7-17); Calcium 9.2 mg/dL (8.4-10.2); Carbon Dioxide 32 mmol/L (22-30); Chloride 103 mmol/L (98-107); Cholesterol 142 mg/dL (0-200); Estimated Glomerular Filt Rate 53; Glucose 94 mg/dL (65-110); HDL Direct 49 mg/dL; Potassium 3.9 mmol/L (3.4-5.0); Sodium 139 mmol/L (137-145); Triglycerides 224 mg/dL (<150)
[2022-11-08 12:57] LABS: Percent Iron Saturation 22 % (20-50)
[2022-11-08 13:07] LABS: LDL Cholesterol Direct 52 mg/dL
== END 2022-11-08 11:19 | disposition home or self-care (01) ==
PROVIDERS: PCP Internal Medicine; Visit Provider Internal Medicine
DX: D50.9 Iron deficiency anemia, unspecified (principal); E53.8 Deficiency of other specified B group vitamins; E78.5 Hyperlipidemia, unspecified; I10 Essential (primary) hypertension; R53.83 Other fatigue
CPT/HCPCS: 36415; 80053; 80061; 82306; 82607; 82746; 83540; 83550; 84443; 85025

== ENCOUNTER 2022-12-25 14:21 | Outpatient (CLI) | payer MEDICARE, SELFPAY ==
--- NOTE | ~2022-12-25 | MR_ITS ---
EXAMINATION: MR brain/brain stem wo con DATE: 12/25/2022 15:33 INDICATION: Dementia. TECHNIQUE: Magnetic resonance imaging (MRI) of the brain and brainstem was performed without intraven ous contrast. COMPARISON: Head CT 10/01/2022 FINDINGS: There is a small old infarct in right cerebellum. There are scattered areas of nonspecific increased T2-weighted signal intensity in the cerebral white matter, alessandro, and deep gutierrez nuclei. Ther e is an old infarct in the right caudate nucleus. There is no intracranial hemorrhage, acute infarcti on, or abnormal intracranial mass lesion. The ventricles are normal in size. The paranasal sinuses ar e clear. There are likely changes of ocular lens replacement surgeries. The mastoid air cells are nor mal. IMPRESSION: 1. 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 2. Extensive nonspecific cerebral white matter disease and disease of the alessandro and deep gutierrez nuclei, which likely represents chronic small vessel ischemic disease. Reviewed, dictated and finalized at location A. IMPRESSION: 1. 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 2. Extensive nonspecific cerebral white matter disease and disease of the alessandro and deep gutierrez nuclei, which likely represents chronic small vessel ischemic dis ease.
== END 2022-12-25 14:22 | disposition home or self-care (01) ==
PROVIDERS: PCP Internal Medicine; Visit Provider Physician Assistant
DX: G30.9 Alzheimer's disease, unspecified (principal); F02.80 Dementia in other diseases classified elsewhere, unspecified severity, without behavioral disturbance, psychotic disturbance, mood disturbance, and anxiety; R93.0 Abnormal findings on diagnostic imaging of skull and head, not elsewhere classified
CPT/HCPCS: 70551

== ENCOUNTER 2024-03-11 08:41 | Emergency (ER) | payer MEDICARE, SELFPAY ==
--- NOTE | ~2024-03-11 | XR_ITS ---
XR chest 2V Ordering provider: Santiago Curry MD History: 88 years Female with . chest pain, intermittent . Comparison: None. FINDINGS: MEDIASTINUM: The cardiac silhouette is not enlarged. Slightly Prominent right hilum. LUNGS: No infiltrates, effusions or pneumothorax. OTHER: No free air under the diaphragm. Degenerative changes of the spine. IMPRESSION: No acute cardiopulmonary pathology. Reviewed, dictated and finalized at location A. N CARRIER
--- NOTE | ~2024-03-11 | CT_ITS ---
EXAMINATION: CT chest abdomen pelvis w con DATE: 03/11/2024 10:37 INDICATION: Right-sided abdominal pain and chest pain. TECHNIQUE: Computed tomography (CT) of the chest, abdomen, and pelvis was performed with 100 mL Omnip aque-350 intravenous contrast. Automated exposure control and iterative reconstruction technique were employed. The dose-length product was 522.24 mGy-cm. COMPARISON: None FINDINGS: CHEST CT: Moderate emphysema. Calcified nodule at the right lung base along with calcified right hilar and medi astinal lymph nodes consistent with old granulomatous disease. There are a few additional noncalcifie d less than 3 mm nodules in the bilateral upper lobes. No pneumonia, pulmonary edema, pleural effusio n or pneumothorax. No evident pulmonary embolism. Sensitivity decreased in some of the pulmonary carmelo abhishek in the mid lung zones due to some respiratory motion artifact. Heart size is normal. Atheroscler otic coronary artery calcifications and likely stenting along the right coronary artery. No pericardi al effusion. Thoracic aorta is normal in caliber. There is penetrating atherosclerotic ulcer along th e aortic arch immediately distal to the takeoff of the left subclavian artery with associated small i ntramural hematoma. Mild inferior thoracic dextrocurvature. Chronic posterior right sixth-eighth left rib fractures. ABDOMEN/PELVIS CT: Focal hepatic steatosis at the ligamentum teres. Minimal dilation of the common bile duct and central intrahepatic biliary tree which is within normal limits post cholecystectomy with surgical clips the gallbladder fossa. Spleen, pancreas and bilateral adrenal glands are normal. 2.5 cm right renal cyst and a few smaller parenchymal and parapelvic cysts at the left kidney. Bladder is normal. The uterus is not identified and has likely been surgically resected. There is moderate colonic diverticulosis with a sigmoid predominance. There is no adjacent inflammatory change to suggest diverticulitis. No bowel obstruction. The appendix is not visualized. No pericecal inflammatory change to suggest acute appendicitis. No free intraperitoneal gas or fluid. No pathologically enlarged abdominal or pelvic ly mphadenopathy. Severe lumbar spondylosis with few millimeter retrolisthesis L1 on L2 and anterolisthe sis L4 on L5. IMPRESSION: 1. Penetrating atherosclerotic ulcer with associated small intramural hematoma along the distal aorti c arch. 2. Moderate emphysema. 3. Sigmoid diverticulosis. No acute intra-abdominal/pelvic process. Reviewed, dictated and finalized at location B. TRIMMER IMPRESSION: 1. Penetrating atherosclerotic ulcer with associated small intramural hematoma along the distal aortic arch. 2. Moderate emphysema. 3. Sigmoid diverticulosis. No acute intra-abdominal/pelvic process.
--- NOTE | ~2024-03-11 | XR_ITS ---
XR toe 1st RT min 2V Ordering provider: Christy Dillon APRN History: . R toe pain . Comparison: None. FINDINGS: BONES: Hammertoes are noted. No acute fracture or dislocation. JOINT SPACES: Normal. SOFT TISSUES: Normal. IMPRESSION: No acute osseous abnormality. Hammertoes. Reviewed, dictated and finalized at location A. STIGATIVE ASSISTANT
[2024-03-11 08:31] VITALS: BP 195/104; PULSE 104; RESP 13; TEMP 36.4; O2SAT 95
--- NOTE | 2024-03-11 08:45 | ECG_ITS ---
Test Date: 2024-03-11 08:51:27 Measurements Intervals [place] Rate: 93 P: 78 UT: 144 QRS: 35 QRSD: 78 T: 74 QT: 360 QTc: 449 Interpretive Statements SINUS RHYTHM WITH OCCASIONAL SUPRAVENTRICULAR PREMATURE COMPLEXES NONSPECIFIC ST & T-WAVE ABNORMALITY- DIFFUSE LEADS BASELINE ARTIFACT- I, III, AVR, AVL, AVF, V1-V6 BORDERLINE ECG No previous ECG available for comparison Electronically Signed On 03-11-2024 09:16:42 [facility]ADLER by Bhargav Morales D.O.
[2024-03-11 08:46] VITALS: O2SAT 94
[2024-03-11 09:15] LABS: Basophils Percent Auto 0.4 % (0.2-1.2); Eosinophils Absolute Auto 0.1 K/mm3 (0-0.3); Eosinophils Percent Auto 1.8 % (0-4.4); Hematocrit 46.5 % (37.0-47.0); Hemoglobin 14.6 g/dL (12.0-15.0); Immature Granulocyte Absolute 0.01 K/mm3 (0.00-0.031); Immature Granulocyte Percent A 0.1 % (0-0.5); Lymphocytes Absolute Auto 1.65 K/mm3 (0.9-3.2); Lymphocytes Percent Auto 22.8 % (18.3-44.2); Mean Corpuscular HGB Conc 31.4 g/dl (32-36); Mean Corpuscular Hemoglobin 30.4 pg (26-34); Mean Corpuscular Volume 96.7 fl (80-100); Mean Platelet Volume 10.8 fl (7.4-10.4); Monocytes Absolute Auto 0.4 K/mm3 (0.1-0.6); Monocytes Percent Auto 6.1 % (2.6-8.5); Neutrophils Percent Auto 68.8 % (45.5-73.1); Platelet Count Result 187 k/mm3 (150-375); Red Blood Count 4.81 M/mm3 (4.2-5.4); Red Cell Distribution Width 13.6 % (11.5-14.5); White Blood Count 7.3 K/mm3 (4.5-10.0)
[2024-03-11 09:25] LABS: Alanine Aminotransferase 11 U/L (6-35); Albumin Level 3.7 g/dL (3.5-5.1); Alkaline Phosphatase 71 U/L (38-126); Anion Gap 2 mmol/L (4-12); Aspartate Amino Transferase 18 U/L (14-36); Bilirubin,Total 0.6 mg/dL (0.2-1.3); Blood Urea Nitrogen 15 mg/dL (7-17); Calcium 8.9 mg/dL (8.4-10.2); Carbon Dioxide 34 mmol/L (22-30); Chloride 102 mmol/L (98-107); Estimated CRCL calculation 28 ml/min; Estimated Glomerular Filt Rate 47; Glucose 89 mg/dL (65-110); Lipase 48 U/L (23-300); Potassium 4.2 mmol/L (3.4-5.0); Sodium 138 mmol/L (137-145)
[2024-03-11 09:27] LABS: Partial Thromboplastin Time 27.7 Seconds (22.3-36.8); Prothrombin Time 13.5 Seconds (11.1-14.7)
[2024-03-11 09:37] LABS: Troponin I 0.016 ng/mL (0.000-0.034)
--- NOTE | 2024-03-11 09:47 | ED_ITS ---
HPI - Chest Pain General Chief Complaint: Chest Pain Stated Complaint: CP Time Seen by Provider: 03/11/24 08:49 Source: patient Mode of arrival: EMS Limitations: no limitations History of Present Illness HPI narrative: Patient is an 88-year-old female who presents to the ER with complaints of chest pain. She is alert and oriented x2, so some of her medical history was obtained from EMS and her daughter, her POA, calling and giving medical staff information. Patient reports she is supposed to get a test but is unsure as to which one. At the time of examination, patient complains of right toe pain, right upper and lower quadrant abdominal pain, but EMS reports they were called because patient was experiencing chest pain. Patient is unsure whether not she took her medications this morning. She does point to her urinary area and reports she has pain sometimes down there. Patient denies sh ortness of breath, or recent signs/symptoms of illness that she remembers. Related Data Home Medications Medication Instructions Recorded Confirmed cyanocobalamin (vitamin B-12) 1,000 mcg PO BID 04/04/21 02/14/23 1,000 mcg capsule evolocumab 140 mg/mL subcutaneous 140 mg subcut ONCE 11/08/22 02/14/23 syringe (Repatha Syringe) Allergies Allergy/AdvReac Type Severity Reaction Status Date / Time ciprofloxacin Allergy Mild hives Verified 11/08/22 09:34 Quinolones Allergy Mild ITCH Verified 11/08/22 09:34 Sulfa (Sulfonamide Allergy Mild hives Verified 11/08/22 09:34 Antibiotics) Review of Systems Review of Systems: All systems reviewed & are unremarkable except as noted in HPI and below PMFSH Past Medical History Medical History Anemia Anxiety Arthritis ASHD (arteriosclerotic heart disease) B12 deficiency Benign essential hypertension Cerumen impaction Closed head injury without loss of consciousness Depression Diarrhea Diverticulitis Dysphagia Elevated hematocrit Hx of colonic polyp Hyperlipemia IGT (impaired glucose tolerance) Imbalance Iron deficiency anemia Left knee pain Memory loss Nausea Obesity On halfway drug therapy Osteopenia Other and unspecified hyperlipidemia Pes anserine bursitis Post-menopause Serum potassium elevated SOB (shortness of breath) Wears glasses Surgical History Surgical History History of left knee replacement Presence of left artificial knee joint Family History Family History Mother Family history of lung disease Family history of heart disease in male family member before age 55 Sibling Patient's sister is , Onset Age: 77 Other Cerebrovascular accident Family history of arthritis Social History Social History Smoking packs per day: 1 Smoking cigarettes per day: 20.0 Years smoked: 30 Smoking pack-years: 30.00 Smoking status: Former smoker Tobacco type: cigarettes Second hand tobacco smoke exposure: Yes Smoking end date: 04/22/83 Alcohol intake: never Substance use: never Substance use type: does not use Lack of Transportation: YES Lack of Food: Never True Current Housing: I Have Housing Concerned About Future Housing: No Difficulty Paying Gas/Electric Bills: No Difficulty Paying for Meds: No Currently Unemployed: No Education: High School Diploma/GED Difficulty w/ Childcare or Family Care: No Living arrangements: assisted living Spiritual care concerns: No Exam Narrative: GENERAL: Well appearing, well-nourished, non-toxic, in no acute distress. HEAD: Normocephalic, atraumatic. NECK: Supple. No adenopathy, no masses. RESPIRATORY: Airway patent, respirations nonlabored. Clear to auscultation bilaterally, no rales, rhonchi, wheezing. CARDIOVASCULAR: Regular rate and rhythm without murmurs, rubs, or gallops. Peripheral pulses 2+ and equal bilaterally. ABDOMINAL: Soft, tender with palpation RUQ and RLQ, nondistended, no hepatosp lenomegaly. Normoactive BS. MUSCULOSKELETAL: Moves all extremities. Strength/ROM intact without gross deformities. R great toe pain SKIN: Warm, dry, normal color. No rashes. NEURO: A&O X3. Speech clear. Cranial nerves II-XII grossly intact. Steady gait. No ataxic movements. PSYCHIATRIC: Appropriate mood and affect. Normal interaction. Course Vital Signs Vital signs: Vital Signs Temperature 36.4 C 03/11/24 08:31 Pulse Rate 104 H 03/11/24 08:31 Respiratory Rate 13 03/11/24 08:31 Blood Pressure 195/104 H 03/11/24 08:31 Pulse Oximetry 95 11/20/24 08:31 Oxygen Delivery Room Air 03/11/24 08:31 Temperature 36.4 C 03/11/24 08:31 Pulse Rate 88 03/11/24 10:04 Respiratory Rate 20 03/11/24 10:04 Blood Pressure 190/94 H 03/11/24 10:04 Pulse Oximetry 96 03/11/24 10:04 Oxygen Delivery Room Air 03/11/24 08:46 MDM - Chest Pain MDM Narrative Medical decision making narrative: Patient is an 88-year-old female who presents to the ER with complaints of chest pain. She is alert and oriented x2, so some of her medical history was obtained from EMS and her daughter, her POA, calling and giving medical staff information. Patient reports she is supposed to get a test but is unsure as to which one. At the time of examination, patient complains of right toe pain, right upper and lower quadrant abdominal pain, but EMS reports they were called because patient was experiencing chest pain. Patient is unsure whether not she took her medications this morning. She does point to her urinary area and reports she has pain sometimes down there. Patient denies shortness of breath, or recent signs/symptoms of illness. Labs Ordered: CBC, CMP, troponin, lipase, PTT, INR, UA, COVID Imaging Ordered: EKG, chest x-ray, CT chest/abdomen/pelvis with contrast Results: CT chest: Moderate emphysema. Calcified nodule at the right lung base along with calcified right hilar and mediastinal lymph nodes consistent with old granulomatous disease. There are a few additional noncalcified less than 3 mm nodules in the bilateral upper lobes. No pneumonia, pulmonary edema, pleural effusion or pneumothorax. No evident pulmonary embolism. Sensitivity decreased in some of the pulmonary arteries in the mid lung zones due to some respiratory motion artifact. Heart size is normal. Atherosclerotic coronary artery calcifications and likely stenting along the right coronary artery. No pericardial effusion. Thoracic aorta is normal in caliber. There is penetrating atherosclerotic ulcer along the aortic arch immediately distal to the takeoff of the left subclavian artery with associated small intramural hematoma. Mild inferior thoracic dextrocurvature. Chronic posterior right sixth-eighth left rib fractures. CT abdomen/pelvis: Focal hepatic steatosis at the ligamentum teres. Minimal dilation of the common bile duct and central intrahepatic biliary tree which is within normal limits post cholecystectomy with surgical clips the gallbladder fossa. Spleen, pancreas and bilateral adrenal glands are normal. 2.5 cm right renal cyst and a few smaller parenchymal and parapelvic cysts at the left kidney. Bladder is normal. The uterus is not identified and has likely been surgically resected. There is moderate colonic diverticulosis with a sigmoid predominance. There is no adjacent inflammatory change to suggest diverticulitis. No bowel obstruction. The appendix is not visualized. No pericecal inflammatory change to suggest acute appendicitis. No free intraperitoneal gas or fluid. No pathologically enlarged abdominal or pelvic lymphadenopathy. Severe lumbar spondylosis with few millimeter retrolisthesis L1 on L2 and anterolisthesis L4 on L5. Diagnosis: Penetrating atherosclerotic ulcer with associated small intramural hematoma along the distal aortic arch. Moderate emphysema. Sigmoid diverticulos is. No acute intra-abdominal/pelvic process. Consults: [id number]-M access line contacted and connecting with [facility] for further discussion. [id number]-[facility] vascular surgeon, Dr. Moss, is recommending transfer to [facility]. 1150- ER is accepting pt, Dr. Cobb. Patient Education/Shared MDM: Pt will be transferred to [facility] ER. Results shared and explained to pt's daughter, who verbalizes understanding and is agreement with plan. Pt's daughter, who is her POA, would like to make pt a DNR prior to transfer. Disposition/Plan: Transfer to [facility] via EMS. Differential Diagnosis Differential diagnosis: Likely pneumothorax, atypical chest pain, st elevation myocardial infarction, costochondritis, chest pain and other (aortic aneurysm, dissecting AAA) Lab Data Attestation: I reviewed the patient's lab results. 03/11/24 09:09 03/11/24 09:09 Labs: Lab Results 03/11/24 03/11/24 Range/Units 09:09 10:48 WBC 7.3 (4.5-10.0) K/mm3 RBC 4.81 (4.2-5.4) M/mm3 Hgb 14.6 (12.0-15.0) g/dL Hct 46.5 (37.0-47.0) % MCV 96.7 (80-100) fl MCH 30.4 (26-34) pg MCHC 31.4 L (32-36) g/dl RDW 13.6 (11.5-14.5) % Plt Count 187 (150-375) k/mm3 MPV 10.8 H (7.4-10.4) fl Immature Gran % (Auto) 0.1 (0-0.5) % Neut % (Auto) 68.8 (45.5-73.1) % Lymph % (Auto) 22.8 (18.3-44.2) % Weston % (Auto) 6.1 (2.6-8.5) % Eos % (Auto) 1.8 (0-4.4) % Baso % (Auto) 0.4 (0.2-1.2) % Lymph # (Auto) 1.65 (0.9-3.2) K/mm3 Weston # (Auto) 0.4 (0.1-0.6) K/mm3 Eos # (Auto) 0.1 (0-0.3) K/mm3 Baso # (Auto) 0.0 (0.0-0.1) K/mm3 Abs Immat Gran (auto) 0.01 (0.00-0.031) K/mm3 Absolute Neuts (auto) 5.0 (1.3-6.7) K/mm3 Absolute Nucleated RBC 0.000 (0.0-0.012) K/mm3 Nucleated RBC % 0.0 (0.0-0.2) % PT 13.5 (11.1-14.7) Seconds INR 1.0 APTT 27.7 (22.3-36.8) Seconds Sodium 138 (137-145) mmol/L Potassium 4.2 (3.4-5.0) mmol/L Chloride 102 (98-107) mmol/L Carbon Dioxide 34 H (22-30) mmol/L Anion Gap 2 L (4-12) mmol/L BUN 15 (7-17) mg/dL Creatinine 1.10 H (0.7-1.0) mg/dL Estim Creat Clear Calc 28 ml/min Estimated GFR 47 L (59 - ) Glucose 89 (65-110) mg/dL Calcium 8.9 (8.4-10.2) mg/dL Total Bilirubin 0.6 (0.2-1.3) mg/dL AST 18 (14-36) U/L ALT 11 (6-35) U/L Alkaline Phosphatase 71 (38-126) U/L Troponin I 0.016 (0.000-0.034) ng/mL Total Protein 7.0 (6.3-8.2) g/dL Albumin 3.7 (3.5-5.1) g/dL Lipase 48 (23-300) U/L Influenza A (RT-PCR) Negative (Negative) Influenza B (RT-PCR) Negative (Negative) RSV (RT-PCR) Negative (Negative) SARS-CoV-2 RNA (RT-PCR) Negative (Negative) Imaging Data Attestation: I personally reviewed and interpreted this imaging study as follows: Radiologist's impression: Impressions Chest X-Ray 03/11/24 09:34 IMPRESSION: No acute cardiopulmonary pathology. Chest/Abdomen/Pelvis CT 03/11/24 10:41 IMPRESSION: 1. Penetrating atherosclerotic ulcer with associated small intramural hematoma along the distal aortic arch. 2. Moderate emphysema. 3. Sigmoid diverticulosis. No acute intra-abdominal/pelvic process. Toe X-Ray 03/11/24 11:31 IMPRESSION: No acute osseous abnormality. Klaus. Discharge Plan Discharge Clinical Impression: Penetrating atherosclerotic ulcer of aorta, Intramural aortic hematoma Patient Disposition: Acute Care Hospital Condition: Guarded Prognosis Prescriptions: No Action cyanocobalamin (vitamin B-12) 1,000 mcg capsule 1,000 mcg PO BID Repatha Syringe 140 mg/mL syringe 140 mg subcut ONCE donepezil 10 mg tablet 10 mg PO QHS Qty: 90 1RF Praluent Pen 150 mg/mL pen injector 150 mg SUB-Q .COMPLEX Qty: 2 5RF Rx Instructions: 150 mg subcut every 2 weeks; inject into abdomen, thigh, or upper arm (deltoid muscle); rotate sites diphenoxylate-atropine [Lomotil] 2.5-0.025 mg tablet 1 tablet PO TID PRN (Reason: diarrhea) Qty: 20 1RF albuterol sulfate [ProAir HFA] 90 mcg/actuation HFA aerosol inhaler 2 inh inhalation Q4-6H Qty: 8.5 4RF meloxicam 15 mg tablet 15 mg PO DAILY Qty: 30 1RF calcium carbonate [Calcium 600] 600 mg calcium (1,500 mg) tablet 600 mg PO BID Qty: 180 1RF ascorbic acid (vitamin C) 500 mg tablet 500 mg PO BID Qty: 60 5RF fluoxetine 20 mg capsule 20 mg PO DAILY Qty: 90 0RF cholestyramine-aspartame [Prevalite] 4 gram powder in packet 1 ea PO DAILY Qty: 30 2RF loperamide 2 mg capsule See Rx Instructions .ROUTE .COMPLEX Qty: 15 11RF Dose Instruction: TAKE ONE CAPSULE BY MOUTH EVERY OTHER DAY Rx Instructions: TAKE ONE CAPSULE BY MOUTH EVERY OTHER DAY losartan 50 mg tablet 50 mg PO DAILY Qty: 90 1RF amlodipine 10 mg tablet 10 mg PO DAILY Qty: 30 5RF megestrol 400 mg/10 mL (10 mL) suspension 200 mg PO BID Qty: 300 3RF alprazolam 0.25 mg tablet 0.25 mg PO .COMPLEX Qty: 2 0RF Rx Instructions: 1 tablet 1 hour before MRI, may repeat X1 lansoprazole 30 mg capsule,delayed release(DR/EC) See Rx Instructions .ROUTE .COMPLEX Qty: 30 0RF Dose Instruction: TAKE ONE CAPSULE BY MOUTH DAILY Rx Instructions: TAKE ONE CAPSULE BY MOUTH DAILY raloxifene 60 mg tablet See Rx Instructions .ROUTE .COMPLEX Qty: 30 0RF Dose Instruction: TAKE ONE TABLET BY MOUTH DAILY Rx Instructions: TAKE ONE TABLET BY MOUTH DAILY hyoscyamine sulfate 0.375 mg tablet extended release 12 hr See Rx Instructions .ROUTE .COMPLEX Qty: 30 0RF Dose Instruction: TAKE ONE TABLET BY MOUTH DAILY Rx Instructions: TAKE ONE TABLET BY MOUTH DAILY Follow-up/Referrals: UNKNOWN,DOCTOR [Primary Care Provider] - Time of Disposition: 11:59
[2024-03-11 10:04] VITALS: BP 190/94; PULSE 88; RESP 20; O2SAT 96
[2024-03-11 11:35] LABS: Influenza A QL RT-PCR Negative (Negative); Influenza B QL RT-PCR Negative (Negative); RSV RNA, RT-PCR Negative (Negative); SARS-CoV-2 RNA PCR Negative (Negative)
[2024-03-11 12:15] VITALS: BP 190/94; PULSE 93; RESP 18; O2SAT 95
--- NOTE | 2024-03-11 12:37 | PCCCNOTE ---
1237-Called to the pt's room to complete the pt's POLST form to a DNR status. Verified the Daughter Cinthia Henderson via drivers license is the POA noted on the forms with in the pt's chart. Updated the DNR forms with the providers signature and included in the pt's chart.-daniela.
[2024-03-11 13:24] LABS: Troponin I 0.016 ng/mL (0.000-0.034)
--- NOTE | 2024-03-11 14:04 | PC.NURSE ---
[facility] med took patient to [facility] ER for transfer. patient at baseline and in no distress at time of transfer.
== END 2024-03-11 14:04 | disposition short-term general hospital (02) ==
PROVIDERS: Emergency Medicine; Emergency Provider Registered Nurse
DX: I71.12 Aneurysm of the aortic arch, ruptured (principal); I71.011 Dissection of aortic arch; J43.9 Emphysema, unspecified; R91.1 Solitary pulmonary nodule; K76.0 Fatty (change of) liver, not elsewhere classified; M47.816 Spondylosis without myelopathy or radiculopathy, lumbar region; K57.30 Diverticulosis of large intestine without perforation or abscess without bleeding; Z20.822 Contact with and (suspected) exposure to COVID-19; D64.9 Anemia, unspecified; F41.9 Anxiety disorder, unspecified; M19.90 Unspecified osteoarthritis, unspecified site; I10 Essential (primary) hypertension; F32.A Depression, unspecified
CPT/HCPCS: 36415; 71046; 71260; 73660; 74177; 80053; 83690; 84484; 85025; 85610; 85730; 87637; 93005; 99285; Q9967

== ENCOUNTER 2024-04-24 06:01 | Emergency (ER) | payer MEDICARE, BC, SELFPAY ==
--- NOTE | ~2024-04-24 | CT_ITS ---
CT head without contrast Indication: Status post fall COMPARISON: 10/01/2022 Technique: Serial scans were obtained through the brain without the administration of contrast. Dose reduction technique was used on this scan by utilizing automated exposure control and iterative recon struction technique. The dose-length product (DLP) was 681.00 mGy-cm. Findings: No acute infarct evident. There are chronic bilateral cerebral convexity subdural hematomas , measuring up to 14 mm in thickness on either side. There is a tiny amount of acute subdural blood i n the left cerebral convexity collection (axial image 37). The ventricles and subarachnoid spaces are dilated, consistent with mild atrophy. Low attenuation regions are seen within the periventricular white matter bilaterally, likely representing changes from chronic microvascular ischemic disease. Th ere is no evidence of edema, mass effect or midline shift. The visualized paranasal sinuses and mas toid air cells are clear. Impression: Bilateral chronic subdural hematomas measuring up to 14 mm in thickness. Tiny amount of acute subdura l blood in the left cerebral convexity collection. Mild generalized atrophy. Reviewed, dictated and finalized at location M. F STRATEGY OFFICER Impression: Bilateral chronic subdural hematomas measuring up to 14 mm in thickness. Tiny a mount of acute subdural blood in the left cerebral convexity collection. Mild generalized atrophy.
--- NOTE | ~2024-04-24 | XR_ITS ---
AP view of the pelvis and AP and lateral views of the left hip Clinical history: Pain Findings: No acute fracture or dislocation is seen. Osseous alignment is anatomic. Bilateral hip and SI joint spaces are preserved. Soft tissues are unremarkable. Impression: No significant abnormality is seen. Reviewed, dictated and finalized at [facility]. BLENDER Impression: No significant abnormality is seen.
--- NOTE | ~2024-04-24 | CT_ITS ---
Noncontrast CT scan of the cervical spine Technique: Multiple contiguous axial [address] images of the cervical spine were obtained and rec onstructed in 2D sagittal and coronal planes on the acquisition scanner. Dose reduction technique was used on this scan by utilizing automated exposure control, adjustment of the mA and/or kV according to patient size. The dose-length product (DLP) was 149.36 mGy-cm. Clinical History: Pain Findings: No acute fracture. 5 mm anterolisthesis of C3 over C4 noted. There is advanced generative d isc narrowing at C4-C5, C5-C6, and C6-C7. There is moderate degenerative disc narrowing at C3-C4. The re is facet arthropathy and disc osteophyte complex at C2-C3, with bilateral neural foraminal narrowi ng. There is facet arthropathy with bilateral neural foraminal narrowing at C3-C4. There is facet art hropathy and disc osteophyte complex at C4-C5, with bilateral neural foraminal narrowing and possible mild canal stenosis. There is facet arthropathy and disc osteophyte complex at C5-C6, bilateral neur al foraminal narrowing and [id number] spinal canal stenosis. There is bilateral facet arthropat hy and disc ossify complex at C6-C7, with bilateral neural foraminal narrowing and moderate canal valentina nosis. No prevertebral soft tissue swelling. Impression: No acute fracture. 5 mm anterolisthesis of C3 over C4. Severe degenerative spondylosis throughout the cervical spine, as detailed above. Reviewed, dictated and finalized at [facility]. CONFORMING MACHINE OPERATOR Impression: No acute fracture. 5 mm anterolisthesis of C3 over C4. Severe degenerative spondylosis throughout the cervical spine, as detailed sara abraham
[2024-04-24 06:02] VITALS: BP 167/89; PULSE 83; RESP 15; TEMP 36.6; O2SAT 95
[2024-04-24 07:00] VITALS: BP 142/74; PULSE 76; RESP 16; TEMP 36.4; O2SAT 100
[2024-04-24 08:00] VITALS: BP 136/80; PULSE 76; RESP 16; TEMP 36.6; O2SAT 98
--- NOTE | 2024-04-24 08:12 | ED_ITS ---
HPI - Fall General Chief Complaint: Fall Stated Complaint: GLF, unwitnessed Time Seen by Provider: 04/24/24 07:34 Source: family (daughter Cinthia), EMS and RN notes reviewed Mode of arrival: EMS Limitations: dementia History of Present Illness HPI Narrative: Patient presents after an unwitnessed ground level fall. She was initially complaining of left hip pain but not presently. C-collar had been applied by EMS. She is alert oriented x1 which is reported to be or baseline. She has a history of atrial fibrillation but is not on anticoagulation. Also has dementia and hypertension. Has had multiple falls recently. Speaks incomprehensibly. Related Data Home Medications ?Medication ?Instructions ?Recorded ?Confirmed ?Last Taken ?Type evolocumab 140 mg/mL subcutaneous 140 mg subcut [id number] 11/08/22 04/09/24 Unknown History syringe (Repatha Syringe) acetaminophen 325 mg capsule 650 mg PO Q4H PRN fever or pain 04/08/24 04/08/24 Unknown History ascorbic acid (vitamin C) 500 mg 500 mg PO DAILY 04/08/24 04/08/24 Unknown History tablet aspirin 81 mg capsule 81 mg PO DAILY 04/08/24 04/08/24 Unknown History atorvastatin 20 mg tablet 20 mg PO HS 04/08/24 04/08/24 Unknown History carvedilol 25 mg tablet 25 mg PO Q12H 04/08/24 04/08/24 Unknown History cholestyramine (with sugar) 4 gram 1 ea PO DAILY@0800 04/08/24 04/08/24 Unknown History oral powder lansoprazole 30 mg capsule,delayed 30 mg PO DAILY@0800 04/08/24 04/09/24 Unknown History release loperamide 2 mg capsule 2 mg PO PRN Diarrhea 04/08/24 04/09/24 Unknown History melatonin 3 mg capsule 3 mg PO HS 04/08/24 04/08/24 Unknown History polyethylene glycol 3350 17 gram 17 g PO DAILY 04/08/24 04/08/24 Unknown History oral powder packet (ClearLax) tamsulosin 0.4 mg capsule 0.4 mg PO DAILY 04/08/24 04/08/24 Unknown History trazodone 50 mg tablet 25 mg PO HS PRN insomnia 04/08/24 04/09/24 Unknown History calcium carbonate (Calcium Antacid) 600 mg PO BIDWM 04/09/24 04/09/24 Unknown History hyoscyamine sulfate 0.375 mg 0.375 mg PO DAILY 04/09/24 04/09/24 Unknown History tablet,extended release,12 hr ipratropium 0.5 mg-albuterol 3 mg 3 ml inhalation Q4H PRN shortness 04/09/24 04/09/24 Unknown History (2.5 mg base)/3 mL nebulization of breath or wheezing soln raloxifene 60 mg tablet 60 mg PO DAILY 04/09/24 04/09/24 Unknown History Allergies Allergy/AdvReac Type Severity Reaction Status Date / Time ciprofloxacin Allergy Mild hives Verified 04/08/24 17:44 Quinolones Allergy Mild ITCH Verified 04/08/24 17:44 Sulfa (Sulfonamide Allergy Mild hives Verified 04/08/24 17:44 Antibiotics) [facility] Past Medical History Medical History Bilateral chronic intracranial subdural hematoma UTI (urinary tract infection) COPD (chronic obstructive pulmonary disease) Dysphagia Nausea Wears glasses Pes anserine bursitis Left knee pain B12 deficiency SOB (shortness of breath) Closed head injury without loss of consciousness Memory loss Serum potassium elevated Elevated hematocrit Post-menopause Diarrhea Anemia Anxiety Arthritis Depression Diverticulitis Hyperlipemia Obesity Cerumen impaction Imbalance ASHD (arteriosclerotic heart disease) Benign essential hypertension Hx of colonic polyp IGT (impaired glucose tolerance) Iron deficiency anemia 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 Osteopenia Other and unspecified hyperlipidemia Surgical History Surgical History History of left knee replacement Presence of left artificial knee joint Family History Family History Mother Family history of lung disease Family history of heart disease in male family member before age 55 Sibling Patient's sister is , Onset Age: 77 Other Cerebrovascular accident Family history of arthritis Social History Social History Smoking packs per day: 1 Smoking cigarettes per day: 20.0 Years smoked: 30 Smoking pack-years: 30.00 Smoking status: Never smoker Tobacco type: cigarettes Second hand tobacco smoke exposure: Yes Smoking end date: 04/22/83 Alcohol intake: never Substance use: never Substance use type: does not use Lack of Transportation: YES Lack of Food: Never True Current Housing: I Have Housing Concerned About Future Housing: No Difficulty Paying Gas/Electric Bills: No Difficulty Paying for Meds: No Currently Unemployed: No Education: High School Diploma/GED Difficulty w/ Childcare or Family Care: No Living arrangements: assisted living Additional living arrangements comments: [facility] Spiritual care concerns: No Exam Narrative: GENERAL: Well-appearing, well-nourished, and in no acute distress. HEAD: Normocephalic, atraumatic. EYES: Non injected, non icteric. PERRL. Arcuate senilis. ENT: Nares clear, no rhinorrhea or epistaxis. NECK: C collar initially in place but removed by myself and no TTP of C spine. CHEST: Speaking in full sentences. No respiratory distress. HEART: Regular rate and rhythm. . ABDOMEN: Soft, nondistended. No abdominal tenderness to palpation EXTREMITIES: No lower extremity edema. Pelvis stable to compression. No tende rness to palpation rib bony deformities of extremities x4 which have normal ROM. SKIN: Warm, dry. Well healing lesion with scab on right forehead/alevism. NEURO: No focal deficits. Alert but speaks incomprehensibly (baseline per daughter at baseline. . PSYCH: Congruent mood and affect. Course Vital Signs Vital signs: Vital Signs Temperature 98 F 04/24/24 06:02 Pulse Rate 83 04/24/24 06:02 Respiratory Rate 15 04/24/24 06:02 Blood Pressure 167/89 H 04/24/24 06:02 Pulse Oximetry 95 04/24/24 06:02 Temperature 97.6 F 04/24/24 10:00 Pulse Rate 74 04/24/24 10:00 Respiratory Rate 16 04/24/24 10:00 Blood Pressure 130/76 04/24/24 10:00 Pulse Oximetry 98 04/24/24 10:00 MDM - Fall MDM Narrative Medical decision making narrative: Patient presents after an unwitnessed ground level fall. She had initially complained of left hip pain but not currently. She is alert oriented x1 at baseline due to her dementia as well as her chronic subdural bilateral hematomas. In the emergency department she is afebrile with vital signs notable for hypertension. Per review of the EMR, patient has had multiple falls in the past week for which she has presented multiple times to [facility]. There is evidence of possible acute subdural hematoma on imaging today however I do suspect that this is likely subacute and will attempt to correlate with imaging obtained in the interim at [facility]. Spoke with SARAY Soto at [facility]. He does state that it appears stable from/similar to the imaging that was obtained recently at their facility. Recommends follow up in 4 weeks; sooner if complains of headaches or increased confusion though it is unclear how she would make these needs known. I did update patient's daughter via phone who verifies understanding and is in agreement. Discharge back to facility in stable condition. Because of her degree of dementia and confusion, will require EMS transportation back which we will arrange. Provided Rx for APAP and encourage facility to offer to patient PRN. == Given patient's dementia, recommend continuing conversation of goals of care to establish values and wishes as discuss further treatments and interventions. Of note, Medicare guidelines for hospice eligibility for patients with dementia are as follows: Patient will be considered to be in the terminal stage (life expectancy of 6 months or less) if they meet ALL of the following criteria: 1. Inability to walk AND 2. One or more of the following conditions in the past 12 months: aspiration pneumonia, pyelonephritis septicemia, multiple pressure ulcers (stage 3-4), recurrent fever, or other significant condition that suggests a limited prognosis, and/or inability to maintain sufficient fluid and calorie intake in the past 6 months (10% weight loss or albumin <2.5gm/dL). Given this, patient might not currently meet criteria but a palliative care consult might be appropriate. == Differential Diagnosis Differential diagnosis: Likely concussion with loss of consciousness, concussion without loss of consciousness and other (Cervical spine fracture, intracranial hemorrhage, hip fracture, bony contusion) Medical Records Attestation: I reviewed the patient's medical records. Medical records narrative: Rehab facility note from 04/20/24: 88-year-old with PMHx of CAD s/p stent, dementia, COPD (not on O2), HLD, HTN and GERD, she presented to [facility] on 03/13 s/p fall. Patient reportedly lives in assisted living. Patient recently d/c from [facility] after admission for aortic ulcer perforation and had 2 falls on the day of d/c. 2nd fall resulted in injuries and she returned back to [facility]. Patient brought to ED in setting of bleeding from forehead. CT scan showed small SDH and SAH, and neurosurgery was contacted at that time and no surgical intervention was needed. 03/14 Otolaryngology/ ENT was consulted for her facial trauma and repaired it bedside. Geriatric medicine was consulted due to her age and trauma. Her hospital course complicated by delirium with agitation, TBI, resp failure and shock. Patient also treated for UTI, completed 5 days IV ceftriaxone. Urology was consulted for her urinary retention they recommended to maintain the natarajan and to re attempt a void trial closer to her discharge and if it fails to replace with catheter and with schedule an outpatient void trial. Pt did had a fall on 04/04 when she tried to get up by herself a head CT was obtained and showed stable, improving SDH, not concerning. Imaging Data Radiologist's impression: Impressions Head CT 04/24/24 06:50 Impression: Bilateral chronic subdural hematomas measuring up to 14 mm in thickness. Tiny amount of acute subdural blood in the left cerebral convexity collection. Mild generalized atrophy. Cervical Spine CT 04/24/24 06:53 Impression: No acute fracture. 5 mm anterolisthesis of C3 over C4. Severe degenerative spondylosis throughout the cervical spine, as detailed above. Hip/Pelvis X-Ray 04/24/24 08:51 Impression: No significant abnormality is seen. Discharge Plan Discharge Clinical Impression: Anterolisthesis of cervical spine, Bilateral chronic intracranial subdural hematoma, Hip pain, left, Frequent falls Fall Qualifiers: Encounter type: initial encounter Qualified Code(s): W19.XXXA - Unspecified fall, initial encounter Patient Disposition: NH Detention/Asst Living Condition: Stable Instructions: Antibiotic Form, Fall Prevention for Older Adults (ED), Hip Pain (ED), Hematoma (ED) Additional Instructions: Although it initially appeared that she had an acute subdural hematoma in addition to her chronic bilateral subdural hematomas, her imaging was similar/consistent with the imaging that was obtained at [facility] in the past week. Neuro surgery at [facility] recommends following up in 4 weeks or sooner if she is complaining of headaches or having increased confusion. Return to the emergency department with any new or worsening symptoms. Patient should be offered acetaminophen frequently given she may be experiencing pain from her falls that she is unable to vocalize. Given patient's dementia, recommend continuing conversation of goals of care to establish values and wishes as discuss further treatments and interventions. Of note, Medicare guidelines for hospice eligibility for patients with dementia are as follows: Patient will be considered to be in the terminal stage (life expectancy of 6 months or less) if they meet ALL of the following criteria: 1. Inability to walk AND 2. One or more of the following conditions in the past 12 months: aspiration pneumonia, pyelonephritis septicemia, multiple pressure ulcers (stage 3-4), recurrent fever, or other significant condition that suggests a limited prognosis, and/or inability to maintain sufficient fluid and calorie intake in the past 6 months (10% weight loss or albumin <2.5gm/dL). Given this, patient might not currently meet criteria but a palliative care consult might be appropriate. Patient Language: Spanish Prescriptions: New acetaminophen 650 mg tablet extended release 650 mg PO Q8H PRN (Reason: pain) Qty: 20 0RF No Action Repatha Syringe 140 mg/mL syringe 140 mg subcut [id number] losartan 50 mg tablet 50 mg PO DAILY Qty: 90 1RF acetaminophen 325 mg capsule 650 mg PO Q4H PRN (Reason: fever or pain) melatonin 3 mg capsule 3 mg PO HS polyethylene glycol 3350 [ClearLax] 17 gram powder in packet 17 g PO DAILY tamsulosin 0.4 mg capsule 0.4 mg PO DAILY trazodone 50 mg tablet 25 mg PO HS PRN (Reason: insomnia) aspirin 81 mg capsule 81 mg PO DAILY atorvastatin 20 mg tablet 20 mg PO HS carvedilol 25 mg tablet 25 mg PO Q12H Rx Instructions: must administer with a meal/food cholestyramine (with sugar) 4 gram powder 1 ea PO DAILY@0800 loperamide 2 mg capsule 2 mg PO PRN ascorbic acid (vitamin C) 500 mg tablet 500 mg PO DAILY lansoprazole 30 mg capsule,delayed release(DR/EC) 30 mg PO DAILY@0800 Rx Instructions: before breakfast ipratropium-albuterol 0.5 mg-3 mg(2.5 mg base)/3 mL solution for nebulization 3 ml inhalation Q4H PRN (Reason: shortness of breath or wheezing) calcium carbonate [Calcium Antacid] 200 mg calcium (500 mg) tablet,chewable 600 mg PO BIDWM hyoscyamine sulfate 0.375 mg tablet extended release 12 hr 0.375 mg PO DAILY raloxifene 60 mg tablet 60 mg PO DAILY bacitracin zinc 500 unit/gram Ointment In Packet 1 applic topical DAILY Qty: 0 0RF Follow-up/Referrals: UNKNOWN,DOCTOR [Primary Care Provider] - Stand Alone Forms: Snf Discharge Time of Disposition: 10:16
[2024-04-24 09:00] VITALS: BP 136/78; PULSE 74; RESP 16; TEMP 36.4; O2SAT 98
[2024-04-24 10:00] VITALS: BP 130/76; PULSE 74; RESP 16; TEMP 36.4; O2SAT 98
--- OUTSIDE RECORDS SUMMARY | 2024-05-01 13:39 | XMS_ITS | Data Portability ---
Author Organization [place] [facility], [employer] Address [address] [place] [address] Care Team Providers Care Patient Centered Care Specialist Name Role Phone ADAM CALZADA Licensing Director IRIS DELGADO Primary Care Provider ANKITA MERCER OTHER Assessment Encounter Date Assessment Date Assessment LastModified by Organization Details LastModified Time 07/17/2023 07/17/2023 Medication Short es Patient continues to have multiple bathroom visits overnight with urination. Checking urine to r/o possible infectious process vs OAB. Cognition is worsening but remains pleasant and in good spirits. Encourage participating in activities. Mental activities to stimulate brain. Reorient, redirect, and supportive care. Signs and symptoms of when to seek further care reviewed with patient/caregiver/ family/facility staff. Patient to follow up with primary care provider or return to clinic for any worsening signs and symptoms. Always present to ER or Urgent Care with any progression of/alarming symptoms, significant changes in symptoms or any concerning or urgent matters. Patient/caregiver/ family/facility staff verbalized agreement and understanding of treatment plan. F/U 4 weeks, sooner if needed [email or web address] Not available 07/17/2023 09:57:38 08/21/2023 08/21/2023 Hypertension: - Continue current medication regimen as blood pressure is within goal. - Obtain a CBC, CMP, and magnesium to check levels. - Encourage adherence to a low cardiac diet and low-salt intake. Depression: - Continue current medication and monitor for any worsening signs and symptoms. - Encourage a nutritious, well-balanced diet, adequate food intake, and sleep to support mental health. - Promote mental activities to stimulate the brain. GERD: - Continue current medication as directed. - Denies reflux, dysphagia, and heartburn. - Advise avoidance of spicy foods and eating 2-3 hours before bedtime. Dementia: - Note worsening cognition and pleasant confusion. - Redirect, reorient, and provide supportive care. - Encourage mental stimulation and physical activity to help the patient stay active. - Facility staff to monitor for negative behaviors and manage accordingly. Medication Changes Signs and symptoms of when to seek further care reviewed with patient/caregiver/ family/facility staff. Patient to follow up with primary care provider or return to clinic for any worsening signs and symptoms. Always present to ER or Urgent Care with any progression of/alarming symptoms, significant changes in symptoms or any concerning or urgent matters. Patient/caregiver/ family/facility staff verbalized agreement and understanding of treatment plan. F/U 4 weeks, sooner if needed [email or web address] Not available 08/22/2023 19:52:24 09/11/2023 09/11/2023 Intermittent lef t breast pain: - No palpable masses were noted during the examination. - Order a mammogram with ultrasound if needed to further evaluate the breast pain. Cognitive decline and dementia: - The patient continues to be pleasantly confused, struggling with the date and place. - Notable worsening of cognition. - Continue to monitor cognitive decline and provide appropriate support. No changes in medication at this time. Depression: - The patient is currently on fluoxetine and reports doing well. - Continue fluoxetine for depression management. - Monitor for any changes in mood or behavior. Hypertension: - The patient is on blood pressure medication and her blood pressure is at goal. - Continue current oral medications for hypertension management. Monitor blood pressure regularly. Low protein count: - Labs revealed a low protein count. - Investigate potential causes of low protein count and consider dietary modifications or supplementation if necessary. Monitor protein levels in future lab work. Medication Changes / Orders mammogram with ultrasound for pain of left breast Signs and symptoms of when to seek further care reviewed with patient/caregiver/ family/facility staff. Patient to follow up with primary care provider or return to clinic for any worsening signs and symptoms. Always present to ER or Urgent Care with any progression of/alarming symptoms, significant changes in symptoms or any concerning or urgent matters. Patient/caregiver/ family/facility staff verbalized agreement and understanding of treatment plan. F/U 4 weeks, sooner if needed [email or web address] Not available 09/11/2023 10:36:36 10/09/2023 10/09/2023 Gastrointestinal issues: - Patient reports increasing upset stomach, especially in the evenings. - Current medication: Prevacid daily, possibly not providing benefit. - initiate Pepcid 20 mg daily in the evening. Visual disturbances: - Patient reports seeing large black blobs upon opening her eyes. - No visible abnormalities detected during the visit. - Refer patient to an coin wrapping machine operator for a comprehensive eye examination. Dementia: - Patient's confusion and cognitive decline appear to be worsening. - Continue to monitor the patient's cognitive status. - Implement redirection and reorientation strategies as needed. - Consider referral to a neurologist or geriatric specialist for further evaluation and management. Medication changes Initiate Pepcid 20 mg daily in the evening for GERD. Signs and symptoms of when to seek further care reviewed with patient/caregiver/ family/facility staff. Patient to follow up with primary care provider or return to clinic for any worsening signs and symptoms. Always present to ER or Urgent Care with any progression of/alarming symptoms, significant changes in symptoms or any concerning or urgent matters. Patient/caregiver/ family/facility staff verbalized agreement and understanding of treatment plan. F/U 4 weeks, sooner if needed Not available 10/09/2023 19:51:45 11/13/2023 11/13/2023 GERD: - PEPCID given and doing better with stomach. - Continue regimen. Dementia: - Patient's confusion and cognitive decline appear to be worsening. - Continue to monitor the patient's cognitive status. - Implement redirection and reorientation strategies as needed. Signs and symptoms of when to seek further care reviewed with patient/caregiver/ family/facility staff. Patient to follow up with primary care provider or return to clinic for any worsening signs and symptoms. Always present to ER or Urgent Care with any progression of/alarming symptoms, significant changes in symptoms or any concerning or urgent matters. Patient/caregiver/ family/facility staff verbalized agreement and understanding of treatment plan. [email or web address] Not available 11/13/2023 13:27:35 Plan of Treatment Reminders Order Date Submit Date Provider Last Modified By Organization Details Last Modified Time Details Appointments None recorded. Lab urinalysis , dipstick, reflex micro 2023 024 [facility], [address], [place], [address], 4 12:57:20 unlisted lab - urinary tract infection (UTI) - bacterial/ fungal [address], [place], [address], 4 13:05:34 unlisted lab - complete blood count with auto diff* [address], [place], [address], 4 17:23:26 CMP, serum or plasma [address], [place], [address], 4 12:46:08 magnesium, serum or plasma [address], [place], [address], 4 12:46:09 Referral ophthalmol ogist referral 2023 024 [facility], [address] [place] [address], [place], [address], 4 19:54:17 Procedures None recorded. Surgeries None recorded. Imaging MAMMO, diagnostic , bilateral 2023 024 [facility], [facility] [address], [address], 4 11:06:42 US, breast, unilateral , complete 2023 024 [facility], [facility], [place], [address], 4 11:21:39 Medication Orders famotidine 20 mg tablet 2023 024 [facility], [address] [place], [id number], 20:01:14 Patient TargetsNo targets recorded. Patient Instructions Encounter Date Encounter Id Patient Instructions Last Modified By Organization Details Last Modified Time 07/17/2023 [id number] instructions to assisted living home* - Please obtain urine and sent to [facility]. Order has been sent to them, so you don't have to send another one. Please ensure to label specimen with name and . [email or web address] Not available 07/17/2023 09:58:15 Reason for Referral Supervisor Pig Machine Referral for Visual disturbance Referring Physician: Ada Rahman, Internal Medicine, Encounter Date: 10/09/2023 Results Created Date Observation Date Name Description Value Unit Range Abnormal Flag Note LastModifiedBy Organization Detail LastModifiedTime 08/29/19 24 08/29/2023 COMPL ETE BLOOD COUNT WITH AUTO DIFF* WBC 6.52 10E3/ uL 4.50-1 1.50 Not Available [facility] [address], [place], [address], 08/30/2023 12:46:07 08/29/19 24 08/29/2023 COMPL ETE BLOOD COUNT WITH AUTO DIFF* RBC 4.02 10E6/ uL 4.00-5 .40 Not Available [facility] [address], [place], [address], 08/30/2023 12:46:07 08/29/19 24 08/29/2023 COMPL ETE BLOOD COUNT WITH AUTO DIFF* HGB 13.0 g/dL 12.0-1 5.0 Not Available [facility] [address], [place], [address], 08/30/2023 12:46:07 08/29/19 24 08/29/2023 COMPL ETE BLOOD COUNT WITH AUTO DIFF* HCT 41.3 % 35.0-4 9.0 Not Available [facility] [address], [place], [address], 08/30/2023 12:46:07 08/29/19 24 08/29/2023 COMPL ETE BLOOD COUNT WITH AUTO DIFF* MCV 103 fL 80-100 high Not Available [facility] [address], [place], [address], 08/30/2023 12:46:07 08/29/19 24 08/29/2023 COMPL ETE BLOOD COUNT WITH AUTO DIFF* MCH 32 pg 26-32 Not Available [facility] [address], [place], [address], 08/30/2023 12:46:07 08/29/19 24 08/29/2023 COMPL ETE BLOOD COUNT WITH AUTO DIFF* MCHC 31.5 g/dL 32.0-3 6.0 low Not Available [facility] [address], [place], [address], 08/30/2023 12:46:07 08/29/19 24 08/29/2023 COMPL ETE BLOOD COUNT WITH AUTO DIFF* RDW 13.9 % 11.5-1 4.5 Not Available [facility] [address], [place], [address], 08/30/2023 12:46:07 08/29/19 24 08/29/2023 COMPL ETE BLOOD COUNT WITH AUTO DIFF* plt 193 10E3/ uL 150-45 0 Not Available [facility] [address], [place], [address], 08/30/2023 12:46:07 08/29/19 24 08/29/2023 COMPL ETE BLOOD COUNT WITH AUTO DIFF* neut% 66.4 % 50.0-7 0.0 Not Available [facility] [address], [place], [address], 08/30/2023 12:46:07 08/29/19 24 08/29/2023 COMPL ETE BLOOD COUNT WITH AUTO DIFF* lymph% 24.5 % 18.0-4 2.0 Not Available [facility] [address], [place], [address], 08/30/2023 12:46:07 08/29/19 24 08/29/2023 COMPL ETE BLOOD COUNT WITH AUTO DIFF* mono% 6.0 % 2.0-11 .0 Not Available [facility] [address], [place], [address], 08/30/2023 12:46:07 08/29/19 24 08/29/2023 COMPL ETE BLOOD COUNT WITH AUTO DIFF* eos% 2.6 % 1.0-3. 0 Not Available [facility] [address], [place], [address], 08/30/2023 12:46:07 08/29/19 24 08/29/2023 COMPL ETE BLOOD COUNT WITH AUTO DIFF* baso% 0.3 % 0.0-2. 0 Not Available [facility] [address], [place], [address], 08/30/2023 12:46:07 08/29/19 24 08/29/2023 COMPL ETE BLOOD COUNT WITH AUTO DIFF* Ig% 0.2 % 0.0-0. 6 Not Available [facility] [address], [place], [address], 08/30/2023 12:46:07 08/29/19 24 08/29/2023 COMPL ETE BLOOD COUNT WITH AUTO DIFF* neut# 4.33 10E3/ uL 2.30-8 .10 Not Available [facility] [address], [place], [address], 08/30/2023 12:46:07 08/29/19 24 08/29/2023 COMPL ETE BLOOD COUNT WITH AUTO DIFF* lymph# 1.60 10E3/ uL 0.80-4 .80 Not Available [facility] [address], [place], [address], 08/30/2023 12:46:07 08/29/19 24 08/29/2023 COMPL ETE BLOOD COUNT WITH AUTO DIFF* mono# 0.39 10E3/ uL 0.45-1 .30 low Not Available [facility] [address], [place], [address], 08/30/2023 12:46:07 08/29/19 24 08/29/2023 COMPL ETE BLOOD COUNT WITH AUTO DIFF* eos# 0.17 10E3/ uL 0.00-0 .40 Not Available [facility] [address], [place], [address], 08/30/2023 12:46:07 08/29/19 24 08/29/2023 COMPL ETE BLOOD COUNT WITH AUTO DIFF* baso# 0.02 10E3/ uL 0.00-0 .10 Not Available [facility] [address], [place], [address], 08/30/2023 12:46:07 08/29/19 24 08/29/2023 COMPL ETE BLOOD COUNT WITH AUTO DIFF* Ig# 0.01 10E3/ uL 0.00-0 .09 Not Available [facility] [address], [place], [address], 08/30/2023 12:46:07 08/29/19 24 08/29/2023 COMPR EHENS BIPIN METAB OLIC PANEL * glucose 85 mg/dL 70-99 The Ameri can Diabe alix Assoc iatio n (ADA) recom mends the follo wing crite sheba for the diagn osis of diabe alix: 1) Sympt oms of diabe alix and a rando m gluco se >200 mg/dL OR 2) Fasti ng gluco se >= 126 mg/dL on more than one occas ion. Impai red fasti ng gluco se (IFG) , a fasti ng gluco se betwe en 100 and 125 mg/dL , is defin ed by the ADA as a categ ory at risk for futur e diabe alix and cardi ovasc ular disea se (Pred iabet es). Not Available [facility] [address], [place], [address], 08/30/2023 12:46:08 08/29/19 24 08/29/2023 COMPR EHENS BIPIN METAB OLIC PANEL * BUN 18 mg/dL 8-23 Not Available [facility] [address], [place], [address], 08/30/2023 12:46:08 08/29/19 24 08/29/2023 COMPR EHENS BIPIN METAB OLIC PANEL * calcium 8.6 mg/dL 8.8-10 .2 low Not Available [facility] [address], [place], [address], 08/30/2023 12:46:08 08/29/19 24 08/29/2023 COMPR EHENS BIPIN METAB OLIC PANEL * creatinine 0.93 mg/dL 0.60-1 .20 Not Available [facility] [address], [place], [address], 08/30/2023 12:46:08 08/29/19 24 08/29/2023 COMPR EHENS BIPIN METAB OLIC PANEL * sodium 143 mmol/ L 136-14 5 Not Available [facility] [address], [place], [address], 08/30/2023 12:46:08 08/29/19 24 08/29/2023 COMPR EHENS BIPIN METAB OLIC PANEL * potassium 4.3 mmol/ L 3.5-5. 1 Not Available [facility] [address], [place], [address], 08/30/2023 12:46:08 08/29/19 24 08/29/2023 COMPR EHENS BIPIN METAB OLIC PANEL * chloride 107 mEq/L 98-107 Not Available [facility] [address], [place], [address], 08/30/2023 12:46:08 08/29/19 24 08/29/2023 COMPR EHENS BIPIN METAB OLIC PANEL * carbon dioxide 32 mmol/ L 23-30 high Not Available [facility] [address], [place], [address], 08/30/2023 12:46:08 08/29/19 24 08/29/2023 COMPR EHENS BIPIN METAB OLIC PANEL * total protein 5.9 g/dL 6.2-8. 1 low Not Available [facility] [address], [place], [address], 08/30/2023 12:46:08 08/29/19 24 08/29/2023 COMPR EHENS BIPIN METAB OLIC PANEL * albumin 2.6 g/dL 3.2-4. 6 low Not Available [facility] [address], [place], [address], 08/30/2023 12:46:08 08/29/19 24 08/29/2023 COMPR EHENS BIPIN METAB OLIC PANEL * globulin 3.3 g/dL 2.3-3. 4 Not Available [facility] [address], [place], [address], 08/30/2023 12:46:08 08/29/19 24 08/29/2023 COMPR EHENS BIPIN METAB OLIC PANEL * A/G ratio 0.8 g/dL 0.8-2. 0 Not Available [facility] [address], [place], [address], 08/30/2023 12:46:08 08/29/19 24 08/29/2023 COMPR EHENS BIPIN METAB OLIC PANEL * alkaline phosphatase 79 U/L 30-120 Not Available [facility] [address], [place], [address], 08/30/2023 12:46:08 08/29/19 24 08/29/2023 COMPR EHENS BIPIN METAB OLIC PANEL * ALT (SGPT) 15 U/L 10-28 Not Available [facility] [address], [place], [address], 08/30/2023 12:46:08 08/29/19 24 08/29/2023 COMPR EHENS BIPIN METAB OLIC PANEL * AST (SGOT) 14 U/L 9-36 Not Available [facility] [address], [place], [address], 08/30/2023 12:46:08 08/29/19 24 08/29/2023 COMPR EHENS BIPIN METAB OLIC PANEL * bilirubin, total 0.39 mg/dL 0.20-1 .10 Not Available [facility] [address], [place], [address], 08/30/2023 12:46:08 08/29/19 24 08/29/2023 COMPR EHENS BIPIN METAB OLIC PANEL * eGFR 59.41 mL/mi n/1.7 3m2 >60.00 low Refer ence Range for Chron ic Kidne y Disea se (CKD) GFR CKD Stage >60 Stage 1 or 2 30-60 Stage 3 15-29 Stage 4 <15 Stage 5 The estim ated glome rular filtr ation rate (eGFR ) was deter mined using the 2020 CKD-E PI creat inine equat ion, which does not consi nelson race as a facto r. This equat ion is for indiv idual s aged >=18 years with the resul t adjus melyssa to a body surfa ce area of 1.73 m2. This calcu latio n has been updat ed on labor atory repor ts effec tive 11/27 . Not Available [facility] [address], [place], [address], 08/30/2023 12:46:08 08/29/19 24 08/29/2023 MAGNE SIUM* magnesium 2.00 mg/dL 1.60-2 .40 Not Available [facility] [address], [place], [address], 08/30/2023 12:46:09 Result Notes None recorded. Problems Name Problem SNOMED Code Status Onset Date Resolution Date Notes Provider Name and Address Organization Details Recorded Time Essential hypertension 52342723 Active 2022 MIRTA Barry-BC, PMHNP-BC [address], [place], [address], [facility] 4 18:28:20 Dementia 04329259 Active 2022 CHYNA BarryP-BC, PMHNP-BC [address], [place], [address], [place] [facility] 4 18:28:20 Gastroesophage al reflux disease without esophagitis 000291858 Active 2022 MIRTA Barry-BC, PMHNP-BC [address], [place], [address], [facility] 4 18:28:20 Recurrent major depression 98006126 Active 2023 MIRTA Barry-BC, PMHNP-BC [address], [place], [address], [facility] 4 09:54:36 Problem Notes None recorded. Procedures Surgical History Date Name Laterality Status Provider Name and Address Organization Details Recorded Time Total Knee Replacement, Right completed Jennifer Stein [place] [facility] 03/21/2023 15:35:51 placement of stent completed Jennifer Emil [place] [facility] 03/21/2023 15:36:17 Imaging Results None recorded. Procedure Notes None recorded. Medical Equipment None Reported. Allergies Allergen ID Allergen Name Allergen Category Reaction Reaction Severity Criticality Documentation Date Start Date Code Code System Note Provider Name and Address Organization Details Recorded Time 6951 ciproflox acin medicatio n Not available Not available Not available 03/21/2023 2551 RxNorm Jennifer Stein [facility], [place] - [facility] 3 09:12:26 6952 Medicinal product containin g quinolone and acting as antibacte rial agent (product) medicatio n Not available Not available Not available 03/21/2023 11462 008 SNOMED [facility] 3 09:12:34 6953 Substance with sulfonami de structure and antibacte rial mechanism of action (substanc e) medicatio n Not available Not available Not available 03/21/2023 98152 8003 SNOMED [facility]ANY[facility] 3 09:12:47 Medications Name Sig Start Date Stop Date Status Note LastModified by Organization Details LastModified Time losartan 50 mg tablet TAKE ONE TABLET BY MOUTH DAILY 2023 active Not Available Not Available Not Avai lable Vitamin C 500 mg tablet Take 1 tablet every day by oral route. 06/23 completed Not Available Not Available Not Available loperamide 2 mg capsule Take 1 capsule every other day by oral route for 90 days. 2023 active Not Available Not Available Not Avai lable fosfomycin tromethamin e 3 gram oral packet Take 1 packet every 72 hours by oral route for 9 days. 08/21 completed Not Available Not Available Not Available donepezil 10 mg tablet 04/01 completed Not Available Not Available Not Available meloxicam 15 mg tablet 04/01 completed Not Available Not Available Not Available acetaminoph en 500 mg tablet Take 2 tablets twice a day by oral route as needed. 2023 active Not Available Not Available Not Avai lable calcium 600 mg (as calcium carbonate 1,500 mg) tablet 04/01 completed Not Available Not Available Not Available alprazolam 0.25 mg tablet 1 TABLET 1 HOUR BEFORE MRI, MAY REPEAT X1 04/01 completed Not Available Not Available Not Available famotidine 20 mg tablet Take 1 tablet every day by oral route in the evening for 90 days. 2023 active Not Available Not Available Not Avai lable hyoscyamine ER 0.375 mg tablet,exte nded release,12 hr TAKE ONE TABLET BY MOUTH DAILY active Not Available Not Available No t Available amlodipine 10 mg tablet Take 1 tablet every day by oral route for 90 days. 2023 active Not Available Not Available Not Avai lable lansoprazol e 30 mg capsule,del ayed release TAKE ONE CAPSULE BY MOUTH EVERY OTHER DAY 2023 active Not Available Not Available Not Avai lable Prevalite 4 gram powder for susp in a packet MIX ONE PACKET WITH WATER AND DRINK ONCE A DAY TAKE OTHER MEDS 1 HOUR BEFORE OR 4 TO 6 HOURS AFTER CHOLESTYR AMINE 2023 active Not Available Not Available Not Avai lable raloxifene 60 mg tablet TAKE ONE TABLET BY MOUTH DAILY 2023 active Not Available Not Available Not Avai lable albuterol sulfate HFA 90 mcg/actuati on aerosol inhaler 04/01 completed Not Available Not Available Not Available fluoxetine 20 mg capsule Take 1 capsule every day by oral route for 90 days. 2023 active Not Available Not Available Not Avai lable nitrofurant oin monohydrate /macrocryst als 100 mg capsule 04/01 completed Not Available Not Available Not Available megestrol 400 mg/10 mL (10 mL) oral suspension Take 200 mg twice a day by oral route. active Not Available Not Available No t Available Repatha SureClick 140 mg/mL subcutaneou s pen injector INJECT SUBCUTANE OUSLY EVERY 2 WEEKS 04/01 completed Not Available Not Available Not Available Paxlovid 300 mg (150 mg x 2)-100 mg tablets in a dose pack TK 2 NIRMATREL VIR TS AND 1 RITONAVIR T TOGETHER PO BID FOR 5 DAYS 04/01 completed Not Available Not Available Not Available Paxlovid 150 mg-100 mg tablets in a dose pack (Renal Dose) 04/01 completed Not Available Not Available Not Available Vitals Date Recorded Body height Heart rate Respiratory rate Oxygen saturation Oxygen saturation in Arterial blood by Pulse oximetry Body temperature Body mass index (BMI) Body weight Systolic blood pressure Diastolic blood pressure Provider Name and Address Organization Details Last Updated DateTime 4 157.48 cm 53 /min 18 /min 92 % 92 % 97.5 [degF] 25.5 kg/m2 72223.7 8 g 138 mm[Hg] 78 mm[Hg] Audi Henley [facility] 4 09:00:48 Date Recorded Body height Heart rate Respiratory rate Oxygen saturation Oxygen saturation in Arterial blood by Pulse oximetry Body temperature Systolic blood pressure Diastolic blood pressure Provider Name and Address Organization Details Last Updated DateTime 4 157.48 cm 80 /min 16 /min 93 % 93 % 97.8 [degF] 136 mm[Hg] 78 mm[Hg] Audi Henley [facility] 4 08:44:37 Date Recorded Body height Heart rate Respiratory rate Oxygen saturation Oxygen saturation in Arterial blood by Pulse oximetry Body temperature Systolic blood pressure Diastolic blood pressure Provider Name and Address Organization Details Last Updated DateTime 4 157.48 cm 93 /min 16 /min 94 % 94 % 97.2 [degF] 138 mm[Hg] 80 mm[Hg] Audi [facility] 4 08:40:39 Date Recorded Body height Body temperature Respiratory rate Oxygen saturation Oxygen saturation in Arterial blood by Pulse oximetry Heart rate Body mass index (BMI) Body weight Systolic blood pressure Diastolic blood pressure Provider Name and Address Organization Details Last Updated DateTime 4 157.48 cm 98.2 [degF] 18 /min 95 % 95 % 100 /min 26.6 kg/m2 58415.6 1 g 102 mm[Hg] 64 mm[Hg] Bethanie Poon [facility] 4 09:15:03 Date Recorded Body height Respiratory rate Oxygen saturation Oxygen saturation in Arterial blood by Pulse oximetry Heart rate Body temperature Systolic blood pressure Diastolic blood pressure Provider Name and Address Organization Details Last Updated DateTime 4 157.48 cm 20 /min 96 % 96 % 98 /min 98.4 [degF] 112 mm[Hg] 66 mm[Hg] Bethanie Poon [facility] 4 08:17:00 Social History Question Answer Notes LastModified by Organizat ion Details LastModified Time Tobacco Smoking Status [facility] [place] 15:25:15 Do You Have An Advance Directive? Yes Information not available 03/21/2023 What Is Your Level Of Alcohol Consumption? None Information not available 03/21/2023 Are You Currently Sexually Active With Anyone Who Has Traveled (within The Last 12 Weeks) To A Zika-affected Area? No Information not available 03/21/2023 Are You Blind Or Do You Have Difficulty Seeing? Yes Wears Glasses Information not available 03/21/2023 What Is Your Level Of Caffeine Consumption? Moderate Drinks Tea Daily Information not available 03/21/2023 What Is Your Code Status? Full Code Per Tanvi Lin, They Will Be Changed Soon. Information not available 03/21/2023 In The 14 Days Before Symptom Onset, Have You Had Close Contact With A Laboratory-confir med COVID-19 While That Case Was Ill? No Information not available 03/21/2023 In The 14 Days Before Symptom Onset, Have You Had Close Contact With A Person Who Is Under Investigation For COVID-19 While That Person Was Ill? No Information not available 03/21/2023 Have You Been To An Area Known To Be High Risk For COVID-19? 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 Yes Information not available 03/21/2023 What Type Of Diet Are You Following? REGULAR Information not available 03/21/2023 Have You Processed Blood Or Body Fluids From An Ebola Virus Disease Patient Without Appropriate PPE? No Information not available 03/21/2023 Do You Reside In Or Have You Traveled To An Area Where Ebola Virus Transmission Is Active? No Information not available 03/21/2023 What Is The Highest Grade Or Level Of School You Have Completed Or The Highest Degree You Have Received? [id number] Information not available 03/21/2023 Have There Been Any Changes To Your Family Or Social Situation? No Information no t available 03/21/2023 When Did You Quit Smoking? 17+yearssinc elastcigaret te Mid 80s Information not available 03/21/2023 Are There Any Guns Present In Your Home? No Information not available 03/21/2023 Which Of Your Hands Is Dominant? Right Information not available 03/21/2023 Have You Recently Or Are You Planning To Travel To An Area With Zika Virus? No Information not available 03/21/2023 Do You Have A Medical Power Of [place]? Yes Tanvi Henderson Information not available 03/21/2023 How Many Children Do You Have? 2 Information not available 03/21/2023 Do You Have Any Pets? No Information not available 03/21/2023 What Is Your Relationship Status? Information not available 03/21/2023 Do You Use Your Seat Belt Or Car Seat Routinely? Yes Information not available 03/21/2023 Are You Sexually Active? No Information not available 03/21/2023 Do You Have Smoke And Carbon Monoxide Detectors In Your Home? Yes Information not available 03/21/2023 Are You Passively Exposed To Smoke? No Information no t available 03/21/2023 Do You Participate In Social Media? No Information not available 03/21/2023 Do You Feel Stressed (tense, Restless, Nervous, Or Anxious, Or Unable To Sleep At Night)? [id number] Information not available 03/21/2023 Do You Use Any Illicit Or Recreational Drugs? No Information not available 03/21/2023 Do You Use Sunscreen Routinely? Yes Information not available 03/21/2023 Have You Recently Traveled Abroad? No Information not available 03/21/2023 Are You Currently In School? No Information not available 03/21/2023 Do You Have Any Dietary Restrictions? No Information not available 03/21/2023 Do You Or Have You Ever Used Any Other Forms Of Tobacco Or Nicotine? No Information not available 03/21/2023 Sex: Female Functional Status Question Answer Note LastModified by Organizat ion Details LastModified Time Do you have difficulty walking or climbing stairs? Yes Information not available 03/21/2023 Do you have transportation difficulties? No Information not available 03/21/2023 Are you able to walk? YESASSIST has a walker Information not available 03/21/2023 Do you have difficulty doing errands alone? Yes Information not available 03/21/2023 Are you able to care for yourself? No Information n ot available 03/21/2023 Do you have difficulty dressing or bathing? Yes Information not available 03/21/2023 What is your exercise level? None Information not available 03/21/2023 Mental Status Question Answer Note LastModified by Organizat ion Details LastModified Time Do you have difficulty concentrating, remembering or making decisions? Yes has dementia Information not available 03/21/2023 Family History Relationship Description Onset Age of this Age Resolved Age Notes LastModified by Organization Details LastModified Time Unspecified Relation Family history of stroke [email or web address] Not available 2022 10:31:37 Unspecified Relation Family history of Arthritis [email or web address] Not available 2022 10:31:47 Unspecified Relation Family history of disorder of lung [email or web address] Not available 2022 10:32:01 Unspecified Relation Family history of cardiovascul ar disease in first degree male relative less than 55 years of age [email or web address] Not available 02/2023 10:32:17 Sister Sister 77 [email or web address] Not available 2022 10:32:29 Medical History Condition Response Gynecological Diseases / Disorders Y Endocrine Diseases / Disorders Y Hematological Diseases / Disorders Y Gastrointestinal Diseases / Disorders Y Ear, Nose, Throat Diseases / Disorders Y Musculoskeletal Diseases / Disorders Y Hyperlipidemia Y Dementia Y Pulmonary Diseases / Disorders Y Cardiac Diseases / Disorders Y Vitamin deficiency Y Neurological Diseases / Disorders Y Osteopenia Y Hypertension Y Gynecological HistoryNo gynecological history recorded. Obstetrics History GPAL:G 0 P 0 0 0 0 Past Encounters Encounter ID Performer Location Encounter Start Date Encounter Closed Date Diagnosis/Indication Diagnosis SNOMED-CT Code Diagnosis ICD10 Code Diagnosis Note [id number] EPIFANIO Barry, NASREEN [facility] [address] [place] [address] 04/01/2023 07:03:36 04/01/2023 18:09:06 Essential hypertension 62908803 I10 taking medication s. labs to eval levels. Dementia 94235954 F03.90 Gastroesop hageal reflux disease without esophagitis 921321059 K21.9 Lifestyle modificati ons with wt loss, avoid meals 2-3h before HS. Consider eliminatin g food triggers: chocolate, caffeine, ETOH, acid/spicy food. [id number] EPIFANIO Barry, PMHNP-BC [facility] [address] [place] [address] 04/30/2023 08:29:33 04/30/2023 20:19:19 Dementia 62654489 F03.90 Medication dose changed 0261988363 13073 Z51.81 [id number] Ada Rahman [employer], PMHNP-BC [facility] [address] 4 05/28/2023 08:32:18 05/30/2023 14:21:59 Dementia 41111763 F03.90 Essential hypertension 03534336 I10 Recurrent major depression 79534902 F33.9 Urinary tr act infectious disease 96960868 N39.0 [id number] Ada Rahman [employer], PMHNP-BC [facility] [address] [address] 06/19/2023 08:53:20 06/20/2023 08:50:10 Dementia 23934561 F03.90 Osteoarthr itis of multiple joints 392676577 M15.9 Increased frequency of urination 864643012 R35.0 [id number] Ada Rahman [employer], PMHNP-BC [facility] [address] [address] 07/17/2023 07:28:41 07/17/2023 15:06:53 Dementia 16739837 F03.90 Increased frequency of urination 078734629 R35.0 [id number] Ada Rahman [employer], PMHNP-BC [facility] [address] [place] [address] 08/21/2023 08:00:45 08/22/2023 22:04:19 Dementia 76014349 F03.90 Gastroesop hageal reflux disease without esophagitis 267143206 K21.9 Essential hypertension 09567867 I10 Recurrent major depression 56235818 F33.9 [id number] Ada Rahman [employer], PMHNP-BC [facility] [address] [place] [address] 09/11/2023 08:09:23 09/12/2023 09:44:38 Dementia 07838023 F03.90 Essential hypertension 40753066 I10 Recurrent major depression 38794539 F33.9 Pain of left breast 1010 661042 N64.4 [id number] Ada Rahman, [employer], PMHNP-BC [facility] [address] [place] [facility] [place] [address] 10/09/2023 07:43:25 10/09/2023 23:11:49 Dementia 61537498 F03.90 Gastroesop hageal reflux disease without esophagitis 602359220 K21.9 Visual disturbance 60325 001 H53.9 [id number] Ada Rahman [employer], PMHNP-BC [facility] [address] [place] [address] 11/13/2023 08:11:59 11/13/2023 22:48:09 Dementia 28124425 F03.90 Gastroesop hageal reflux disease without esophagitis 949967296 K21.9 Health Concerns Section Related Observation LastModified by Organization Detai ls LastModified Time None Recorded Concern Status LastModified by Organization Details LastModified Time None Recorded Advance Directives Directive Y: Payers Encounter Date Sequence Insurance Name Policy Number Policy [place] Covered Member ID B[place] Member ID Guarantor Name 07/17/2023 2 [place] [employer]ITY 65 PLAN (MEDICARE SUPPLEMENT) [id number] Emerald Locandro [id number] Emerald Locandro 07/17/2023 1 [place] Emerald Kesslerandro [id number] Emerald Locandro 08/21/2023 2 [place] 65 PLAN (MEDICARE SUPPLEMENT) [id number] Emerald Locandro [id number] Emerald Locandro 08/21/2023 1 [place] Emerald Dudley Locandro [id number] Emerald Locandro 09/11/2023 2 [place]ITY 65 PLAN (MEDICARE SUPPLEMENT) [id number] Emerald Locandro [id number] Emerald Locandro 09/11/2023 1 [place] Emerald Adamsro [id number] Emerald Locandro 10/09/2023 2 [place]ITY 65 PLAN (MEDICARE SUPPLEMENT) [id number] Emerald Adamsro [id number] Emerald Locandro 10/09/2023 1 [place] Emerald Kesslerandro [id number] Emerald Locandro 11/13/2023 2 [place]ITY 65 PLAN (MEDICARE SUPPLEMENT) [id number] Emerald Locandro [id number] Emerald Locandro 11/13/2023 1 [place] Emerald Kesslerandro [id number] Emerald Locandro Notes Date Note Type Note Provider Name and Address Organization Details Recorded Time 07/17/2023 text/html DementiaReported donovan.Quality:short term memory loss; forgetting names or everyday words; disoriented time, self, or place Severity:moderate Associated Symptoms:no depression; no paranoia; no anxiety; no irritability or agitation; no weight loss; no incontinence; no wandering; recent fallsNotes:More confusion noted Urine - recently treated for UTI and Emerald reports that she is continuing to have increasing urinary frequency with going multiple times nightly. She is noted to be more confused than usual. She reports that she feels like she is constantly going. Ada Rahman, [employer], PMHNP-BC [address] [place], [address], [facility] 07/17/2023 09:58:06 08/21/2023 text/html Emerald presents wi th a history of hypertension, for which she is currently taking medication and adhering to a low cardiac, low-salt diet. She reports experiencing normal symptoms and denies any recent exacerbations. Emerald also has a history of depression and is currently on medication for it. She states that she is doing well and denies any suicidal or homicidal ideations. She reports sleeping well at night. Additionally, the patient has a diagnosis of GERD and is currently on medication for it. She denies experiencing any reflux, dysphagia, or heartburn. Lastly, Emerald has been diagnosed with dementia. It is noted that her cognition has been worsening, but she remains pleasantly confused. Facility staff report that she can be bossy towards others but does not exhibit negative behaviors. EPIFANIO Barry, RIKKIHNP-NESSA [address], [place], [address] [place] [address], [facility] 08/22/2023 20:58:04 09/11/2023 text/html Emerald presents fo r a follow-up visit, reporting intermittent throbbing pain in her left breast. She describes the pain as not constant. Emerald continues to experience cognitive challenges, characterized by confusion and difficulty with orientation regarding the date and place, indicative of progressing dementia. Despite these cognitive issues, she remains in good spirits. Her laboratory results show a low protein count, but are otherwise unremarkable. Emerald is currently on fluoxetine for depression, which is managing her condition effectively. She is also taking medication for hypertension, and her blood pressure is controlled and at goal. EPIFANIO Barry PMHNP-NESSA [address], [place], [address] [place] [address], [facility] 09/11/2023 20:43:47 10/09/2023 text/html Emerald presents fo r a follow-up visit with complaints of increasing upset stomach, particularly in the evenings. She is currently on Prevacid daily, which may not be providing adequate relief. Additionally, Emerald reports experiencing visual disturbances, such as seeing large black blobs when opening her eyes. No visible abnormalities were observed during the examination. Jamirs dementia appears to be worsening, with increased confusion noted. EPIFANIO Barry, DINESHP-NESSA [address], [place], [address] [place] [address], [facility] 10/09/2023 19:51:52 11/13/2023 text/html Emerald presents fo r a follow-up visit and doing better with upset stomach with Pepcid. Jamirs dementia appears to be worsening, with increased confusion noted. No behaviors. EPIFANIO Barry, RIKKIHNP-BC [address], [place], [address] [place] [address], [facility] 11/13/2023 13:27:38 OBGyn Episode No OBEpisode recorded.
--- OUTSIDE RECORDS SUMMARY | 2024-05-01 13:44 | XMS_ITS | Patient Health Summary ---
Author Organization [facility] Address [address] [place] [address] Care Team Providers Care [employer] Sales Representative Name Role Phone None, Physician Primary Care Provider Unavailmathew Ada Parker GAME ENGINEER-MEAL PACKER Unavailable [phone] Note from [facility],non-owned Affiliates and Associated Physician Practices is amultiple site organization consisting of ambulatory clinics and hospital sitesin [place], [place], [place] and [place]. This disclosure is being madepursuant to the Care Everywhere program and may not contain all information available regarding this patient. Last updated 18.[facility] Allergies * Ciprofloxacin(Rash) -Medium Criticality * Quinolones(Unknown) * Sulfa Antibiotics(Unknown) Medications * Be aware that medications may not be up to date on this document. Alwaysverify current medications with the patient. * ascorbic acid (Vitamin C) 500 MG tablet Take 1 (one) tablet by mouth once daily * calcium carbonate (Tums) 500 MG chew tablet Take 3 (three) tablets by mouth 2 times daily with morning and evening meal * cholestyramine (Questran) 4 g packet Take 1 (one) packet by mouth once daily * hyoscyamine CR 12hr (Levbid) 0.375 MG tablet Take 1 (one) tablet by mouth once daily * lansoprazole (Prevacid) 30 MG capsule Take 1 (one) capsule by mouth daily before breakfast * loperamide (Imodium) 2 MG capsule Take 1 (one) capsule by mouth as needed for Diarrhea * raloxifene (Evista) 60 MG tablet Take 1 (one) tablet by mouth once daily * evolocumab (Repatha) 140 MG/ML prefilled syringe Inject 140 (one hundred forty) mg subcutaneously every 14 days * traMADol (Ultram) 50 MG tablet Take 1 (one) tablet by mouth every 6 hours as needed for Pain * carvedilol (Coreg) 25 MG tablet(Started 03/13/2024) Take 1 (one) tablet by mouth 2 times daily with morning and evening meal 3 refills by 03/13/2025 * atorvastatin (Lipitor) 20 MG tablet(Started 03/13/2024) Take 1 (one) tablet by mouth at bedtime 3 refills by 03/13/2025 * aspirin (Aspirin) 81 MG chew tablet(Started 03/14/2024) Take 1 (one) tablet by mouth once daily 2 refills by 03/13/2025 * acetaminophen (Tylenol) 325 MG tablet(Started 04/08/2024) Take 2 (two) tablets by mouth every 4 hours as needed Maximum allowable Acetaminophen amount = 4 Grams (4000 mg) / 24 hours. * albuterol-ipratropium (Duo-Neb) 0.5-2.5 (3) MG/3ML nebulizer solution(Started 04/08/2024) Inhale 3 mL by mouth every 4 hours as needed for Shortness of Breath or Wheezing * enoxaparin (Lovenox) 30 MG/0.3ML injection(Started 04/08/2024) Inject 30 (thirty) mg subcutaneously every 12 hours * traZODone (Desyrel) 50 MG tablet(Started 04/08/2024) Take 0.5 (one-half) tablet by mouth nightly as needed for Insomnia * losartan (Cozaar) 50 MG tablet(Started 04/09/2024) Take 1 (one) tablet by mouth once daily * polyethylene glycol 3350 (Miralax) 17 g packet(Started 04/09/2024) Take 17 (seventeen) g by mouth once daily * melatonin 3 MG tablet(Started 04/08/2024) Take 1 (one) tablet by mouth at bedtime * tamsulosin (Flomax) 0.4 MG capsule(Started 04/09/2024) Take 1 (one) capsule by mouth once daily At the same time every day after a meal. * white petroleum (Vaseline) ointment(Started 04/08/2024) Apply to affected area 3 times daily Ended Medications* FLUoxetine (PROzac) 20 MG capsule(Discontinued) Take 1 (one) capsule by mouth once daily * losartan (Cozaar) 25 MG tablet(Started 03/14/2024)(Discontinued) Take 1 (one) tablet by mouth once daily 3 refills by 03/13/2025 Active Problems Problem Noted Date Diagnosed Date Altered mental status, unspe cified altered mental status type 03/13/2024 Fall, initial encounter 03/13/2024 Subarachnoid bleed 03/13/2024 Trauma 03/13/2024 Impaired mobility and ADLs 03/13/2024 Acute pain 03/13/2024 Subdural hematoma 03/13/2024 Malignant hypertension 03/11/2024 Chest pain, unspecified type 03/11/2024 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 Patient unable to answer 03/13/2024 Q2: How many drinks containi ng alcohol do you have on a typical day when you are drinking? Patient unable to answer Q3: How often do you have si x or more drinks on one occasion? Patient unable to answer 03/13/2024 Overall Financial Resource Strain (CARDIA) Answe r Date Recorded How hard is it for you to pa y for the very basics like food, housing, medical care, and heating? Not hard at all 03/28/2024 [place] [facility] - Occupational Stress Questionnaire Answer Date Recorded Do you feel stress - tense, restless, nervous, or anxious, or unable to sleep at night because your mind is troubled all the time - these days? Not at all 03/28/2024 Hunger Vital Sign Answer Date Recorded Within the past 12 months, y ou worried that your food would run out before you got the money to buy more. Never true 03/28/20 24 Within the past 12 months, t he food you bought just didn't last and you didn't have money to get more. Never true 03/28/2024 PRAPARE - Transportation Answer Date Re corded In the past 12 months, has l ack of transportation kept you from medical appointments or from getting medications? No 10/2023 In the past 12 months, has l ack of transportation kept you from meetings, work, or from getting things needed for daily living? No 03/28/2024 Housing Stability Vital Sign Answer Dharmesh e Recorded In the last 12 months, was t here a time when you were not able to pay the mortgage or rent on time? No 03/28/2024 In the past 12 months, how m any times have you moved where you were living? 0 03/28/2024 At any time in the past 12 m [facility], were you homeless or living in a long term (including now)? No 03/28/2024 Sex and Gender Information Value Date Recorded Sex Assigned at Not on file Gender Identity Not on file Sexual Orientation Not on file Last Filed Vital Signs Vital Sign Reading Time Taken Comments Blood Pressure 149/72 04/08/2024 7:42 AM ACCOUNT COORDINATOR Pulse 58 04/08/2024 7:42 AM ACCOUNT COORDINATOR Temperature 36.2 ??C (97.2 ??F) 04/08/2024 7:42 AM CS T Respiratory Rate 16 04/07/2024 11:30 PM ACCOUNT COORDINATOR Oxygen Saturation 98% 04/08/2024 3:57 PM ACCOUNT COORDINATOR Inhaled Oxygen Concentration 30% 03/19/2024 1 2:00 PM ACCOUNT COORDINATOR Weight 87.8 kg (193 lb 9.6 oz) 03/19/2024 4:00 A M ACCOUNT COORDINATOR Height 170.2 cm (5' 7 ) 03/14/2024 3:49 AM ACCOUNT COORDINATOR Body Mass Index 30.32 03/14/2024 3:49 AM ACCOUNT COORDINATOR Procedures * PHOSPHORUS BLOOD(Performed 04/06/2024) * MAGNESIUM BLOOD(Performed 04/06/2024) * BASIC METABOLIC PANEL (CALCIUM TOTAL)(Performed 04/06/2024) * CBC W/O DIFFERENTIAL(Performed 04/06/2024) * CT HEAD WO CONTRAST(Performed 04/04/2024) Performed for Fall, initial encounter * PHOSPHORUS BLOOD(Performed 04/01/2024) * MAGNESIUM BLOOD(Performed 04/01/2024) * BASIC METABOLIC PANEL (CALCIUM TOTAL)(Performed 04/01/2024) * CBC W/O DIFFERENTIAL(Performed 04/01/2024) * URINALYSIS REFLEX TO MICROSCOPIC NO CULTURE(Performed 03/29/2024) * PHOSPHORUS BLOOD(Performed 03/25/2024) * MAGNESIUM BLOOD(Performed 03/25/2024) * BASIC METABOLIC PANEL (CALCIUM TOTAL)(Performed 03/25/2024) * CBC W AUTO DIFFERENTIAL(Performed 03/25/2024) * GLUCOSE - POINT OF CARE(Performed 03/24/2024) * GLUCOSE - POINT OF CARE(Performed 03/24/2024) * GLUCOSE - POINT OF CARE(Performed 03/24/2024) * GLUCOSE - POINT OF CARE(Performed 03/24/2024) * GLUCOSE - POINT OF CARE(Performed 03/24/2024) * GLUCOSE - POINT OF CARE(Performed 03/24/2024) * GLUCOSE - POINT OF CARE(Performed 03/23/2024) * URINALYSIS REFLEX TO MICROSCOPIC NO CULTURE(Performed 03/23/2024) * CBC W AUTO DIFFERENTIAL(Performed 03/23/2024) * CBC W AUTO DIFFERENTIAL(Performed 03/23/2024) * GLUCOSE - POINT OF CARE(Performed 03/22/2024) * BASIC METABOLIC PANEL (CALCIUM TOTAL)(Performed 03/22/2024) * CBC W AUTO DIFFERENTIAL(Performed 03/21/2024) * GLUCOSE - POINT OF CARE(Performed 03/21/2024) * GLUCOSE - POINT OF CARE(Performed 03/21/2024) * CALCIUM IONIZED WHOLE BLOOD(Performed 03/21/2024) * MAGNESIUM BLOOD(Performed 03/21/2024) * PHOSPHORUS BLOOD(Performed 03/21/2024) * BASIC METABOLIC PANEL (CALCIUM TOTAL)(Performed 03/21/2024) * CBC W AUTO DIFFERENTIAL(Performed 03/21/2024) * GLUCOSE - POINT OF CARE(Performed 03/21/2024) * GLUCOSE - POINT OF CARE(Performed 03/20/2024) * GLUCOSE - POINT OF CARE(Performed 03/20/2024) * GLUCOSE - POINT OF CARE(Performed 03/20/2024) * GLUCOSE - POINT OF CARE(Performed 03/20/2024) * CALCIUM IONIZED WHOLE BLOOD(Performed 03/20/2024) * MAGNESIUM BLOOD(Performed 03/20/2024) * PHOSPHORUS BLOOD(Performed 03/20/2024) * BASIC METABOLIC PANEL (CALCIUM TOTAL)(Performed 03/20/2024) * CBC W AUTO DIFFERENTIAL(Performed 03/20/2024) * GLUCOSE - POINT OF CARE(Performed 03/19/2024) * GLUCOSE - POINT OF CARE(Performed 03/19/2024) * GLUCOSE - POINT OF CARE(Performed 03/19/2024) * GLUCOSE - POINT OF CARE(Performed 03/19/2024) * XR CHEST 1VW PORTABLE(Performed 03/19/2024) Performed for Endotracheal tube present * GLUCOSE - POINT OF CARE(Performed 03/19/2024) * CALCIUM IONIZED WHOLE BLOOD(Performed 03/18/2024) * MAGNESIUM BLOOD(Performed 03/18/2024) * PHOSPHORUS BLOOD(Performed 03/18/2024) * BASIC METABOLIC PANEL (CALCIUM TOTAL)(Performed 03/18/2024) * CBC W AUTO DIFFERENTIAL(Performed 03/18/2024) * GLUCOSE - POINT OF CARE(Performed 03/18/2024) * CBC W/O DIFFERENTIAL(Performed 03/18/2024) * GLUCOSE - POINT OF CARE(Performed 03/18/2024) * XR CHEST 1VW PORTABLE(Performed 03/18/2024) Performed for Endotracheal tube present * TRANSFUSE RED BLOOD CELL LEUKOREDUCED UNIT(S)(Performed 03/18/2024) * PREPARE RBC LEUKOREDUCED UNIT(Performed 03/18/2024) * TYPE + SCREEN PANEL(Performed 03/18/2024) * CBC W/O DIFFERENTIAL(Performed 03/18/2024) * CALCIUM IONIZED WHOLE BLOOD(Performed 03/18/2024) * MAGNESIUM BLOOD(Performed 03/18/2024) * PHOSPHORUS BLOOD(Performed 03/18/2024) * BASIC METABOLIC PANEL (CALCIUM TOTAL)(Performed 03/18/2024) * CBC W AUTO DIFFERENTIAL(Performed 03/18/2024) * GLUCOSE - POINT OF CARE(Performed 03/17/2024) * GLUCOSE - POINT OF CARE(Performed 03/17/2024) * ECHO COMPLETE W CONTRAST(Performed 03/17/2024) Performed for Trauma * GLUCOSE - POINT OF CARE(Performed 03/17/2024) * XR CHEST 1VW PORTABLE(Performed 03/17/2024) Performed for Endotracheal tube present * GLUCOSE - POINT OF CARE(Performed 03/17/2024) * CALCIUM IONIZED WHOLE BLOOD(Performed 03/17/2024) * MAGNESIUM BLOOD(Performed 03/17/2024) * PHOSPHORUS BLOOD(Performed 03/17/2024) * BASIC METABOLIC PANEL (CALCIUM TOTAL)(Performed 03/17/2024) * CBC W AUTO DIFFERENTIAL(Performed 03/17/2024) * GLUCOSE - POINT OF CARE(Performed 03/16/2024) * CARDIAC EKG ORDER(Performed 03/16/2024) * GLUCOSE - POINT OF CARE(Performed 03/16/2024) * GLUCOSE - POINT OF CARE(Performed 03/16/2024) * GLUCOSE - POINT OF CARE(Performed 03/16/2024) * XR CHEST 1VW PORTABLE(Performed 03/16/2024) Performed for Endotracheal tube present * BLOOD GASES ART + COOX PANEL(Performed 03/16/2024) * CALCIUM IONIZED WHOLE BLOOD(Performed 03/16/2024) * MAGNESIUM BLOOD(Performed 03/16/2024) * PHOSPHORUS BLOOD(Performed 03/16/2024) * BASIC METABOLIC PANEL (CALCIUM TOTAL)(Performed 03/16/2024) * CBC W AUTO DIFFERENTIAL(Performed 03/16/2024) * GLUCOSE - POINT OF CARE(Performed 03/16/2024) * TROPONIN-I HIGH SENSITIVE REFLEX 1HOUR(Performed 03/15/2024) * TROPONIN-I HIGH SENSITIVE BASELINE + 1HR(Performed 03/15/2024) * GLUCOSE - POINT OF CARE(Performed 03/15/2024) * PHOSPHORUS BLOOD(Performed 03/15/2024) * MAGNESIUM BLOOD(Performed 03/15/2024) * CBC W/O DIFFERENTIAL(Performed 03/15/2024) * XR CHEST 1VW PORTABLE(Performed 03/15/2024) Performed for Fall, initial encounter, Subarachnoid bleed (HCC), Altered mental status, unspecifiedaltered mental status type, Respiratory failure after trauma (HCC), Endotracheal tube present, Subdural hematoma (HCC), Acute pain, Impaired mobility and ADLs, Trauma * COMPREHENSIVE METABOLIC PANEL(Performed 03/15/2024) * BLOOD GASES ART + COOX PANEL(Performed 03/15/2024) * B-TYPE NATRIURETIC PEPTIDE(Performed 03/15/2024) * TROPONIN-I HIGH SENSITIVE(Performed 03/15/2024) * EKG 12-LEAD(Performed 03/15/2024) Performed for Fall, initial encounter, Subarachnoid bleed (HCC), Altered mental status, unspecifiedaltered mental status type, Respiratory failure after trauma (HCC), Endotracheal tube present, Subdural hematoma (HCC), Acute pain, Impaired mobility and ADLs, Trauma * BLOOD GASES VASILIY + COOX PANEL(Performed 03/15/2024) * GLUCOSE - POINT OF CARE(Performed 03/15/2024) * GLUCOSE - POINT OF CARE(Performed 03/15/2024) * XR CHEST 1VW PORTABLE(Performed 03/15/2024) Performed for Endotracheal tube present * CALCIUM IONIZED WHOLE BLOOD(Performed 03/15/2024) * TRIGLYCERIDES BLOOD(Performed 03/15/2024) * BLOOD GASES ART + COOX PANEL(Performed 03/15/2024) * MAGNESIUM BLOOD(Performed 03/15/2024) * PHOSPHORUS BLOOD(Performed 03/15/2024) * BASIC METABOLIC PANEL (CALCIUM TOTAL)(Performed 03/15/2024) * CBC W AUTO DIFFERENTIAL(Performed 03/15/2024) * GLUCOSE - POINT OF CARE(Performed 03/14/2024) * XR HAND LEFT 2VW(Performed 03/14/2024) Performed for Fall, initial encounter, Subarachnoid bleed (HCC), Altered mental status, unspecifiedaltered mental status type, Respiratory failure after trauma (HCC), Endotracheal tube present, Subdural hematoma (HCC), Acute pain, Impaired mobility and ADLs, Trauma * URINALYSIS REFLEX MICROSCOPIC REFLEX CULTURE(Performed 03/14/2024) * XR HAND RIGHT 2VW(Performed 03/14/2024) Performed for Fall, initial encounter, Subarachnoid bleed (HCC), Altered mental status, unspecifiedaltered mental status type, Respiratory failure after trauma (HCC), Endotracheal tube present, Subdural hematoma (HCC), Acute pain, Impaired mobility and ADLs, Trauma * XR KNEE LEFT 2VW OR LESS(Performed 03/14/2024) Performed for Fall, initial encounter, Subarachnoid bleed (HCC), Altered mental status, unspecifiedaltered mental status type, Respiratory failure after trauma (HCC), Endotracheal tube present, Subdural hematoma (HCC), Acute pain, Impaired mobility and ADLs, Trauma * XR KNEE RIGHT 2VW OR LESS(Performed 03/14/2024) Performed for Fall, initial encounter, Subarachnoid bleed (HCC), Altered mental status, unspecifiedaltered mental status type, Respiratory failure after trauma (HCC), Endotracheal tube present, Subdural hematoma (HCC), Acute pain, Impaired mobility and ADLs, Trauma * CALCIUM IONIZED WHOLE BLOOD(Performed 03/14/2024) * BLOOD GASES VASILIY + COOX PANEL(Performed 03/14/2024) * GLUCOSE - POINT OF CARE(Performed 03/14/2024) * CBC W/O DIFFERENTIAL(Performed 03/14/2024) * CT HEAD WO CONTRAST(Performed 03/14/2024) Performed for Altered mental status, unspecified altered mental status type * GLUCOSE - POINT OF CARE(Performed 03/14/2024) * CALCIUM IONIZED WHOLE BLOOD(Performed 03/14/2024) * BLOOD GASES VASILIY + COOX PANEL(Performed 03/14/2024) * CBC W/O DIFFERENTIAL(Performed 03/14/2024) * PHOSPHORUS BLOOD(Performed 03/14/2024) * MAGNESIUM BLOOD(Performed 03/14/2024) * BASIC METABOLIC PANEL (CALCIUM TOTAL)(Performed 03/14/2024) * BLOOD GASES ART + COOX PANEL(Performed 03/14/2024) * CT ANGIO BRAIN(Performed 03/14/2024) Performed for Subarachnoid bleed (HCC) * BLOOD TYPE VERIFICATION(Performed 03/14/2024) * HEMOGLOBIN A1C(Performed 03/14/2024) * URINE DRUG SCREEN IMMUNOASSAY(Performed 03/14/2024) * GLUCOSE - POINT OF CARE(Performed 03/14/2024) * TEG 6S PLATELET MAPPING(Performed 03/13/2024) * TEG 6 GLOBAL HEMOSTASIS W/ LYSIS(Performed 03/13/2024) * XR ABDOMEN KUB PORTABLE(Performed 03/13/2024) Performed for Fall, initial encounter * CT FACIAL BONES WO CONTRAST(Performed 03/13/2024) Performed for Fall, initial encounter * CT LUMBAR SPINE WO CONTRAST(Performed 03/13/2024) Performed for Fall, initial encounter * CT THORACIC SPINE WO CONTRAST(Performed 03/13/2024) Performed for Fall, initial encounter * CT CHEST ABDOMEN PELVIS W CONT(Performed 03/13/2024) Performed for Fall, initial encounter * CT CERVICAL SPINE WO CONTRAST(Performed 03/13/2024) Performed for Fall, initial encounter * CT HEAD WO CONTRAST(Performed 03/13/2024) Performed for Fall, initial encounter * XR CHEST 1VW PORTABLE(Performed 03/13/2024) Performed for Fall, initial encounter * TYPE + SCREEN PANEL(Performed 03/13/2024) * PTT SLH(Performed 03/13/2024) * COMPREHENSIVE METABOLIC PANEL(Performed 03/13/2024) * PT-INR [facility](Performed 03/13/2024) * LIPASE BLOOD(Performed 03/13/2024) * CBC W AUTO DIFFERENTIAL(Performed 03/13/2024) * ALCOHOL ETHYL BLOOD(Performed 03/13/2024) * ED INTUBATION(Performed 03/13/2024) * MAGNESIUM BLOOD(Performed 03/13/2024) * RENAL FUNCTION PANEL(Performed 03/13/2024) * CBC W/O DIFFERENTIAL(Performed 03/13/2024) * GLUCOSE - POINT OF CARE(Performed 03/12/2024) * MAGNESIUM BLOOD(Performed 03/12/2024) * RENAL FUNCTION PANEL(Performed 03/12/2024) * CBC W/O DIFFERENTIAL(Performed 03/12/2024) * ED ARTERIAL LINE INSERTION(Performed 03/11/2024) * TROPONIN-I HIGH SENSITIVE REFLEX 1HOUR(Performed 03/11/2024) * EKG 12-LEAD(Performed 03/11/2024) Performed for Chest pain, unspecified type * XR CHEST 1VW PORTABLE(Performed 03/11/2024) Performed for Chest pain, unspecified type * B-TYPE NATRIURETIC PEPTIDE(Performed 03/11/2024) * PT-INR SLH(Performed 03/11/2024) * TROPONIN-I HIGH SENSITIVE BASELINE + 1HR(Performed 03/11/2024) * MAGNESIUM BLOOD(Performed 03/11/2024) * COMPREHENSIVE METABOLIC PANEL(Performed 03/11/2024) * CBC W AUTO DIFFERENTIAL(Performed 03/11/2024) Results * (ABNORMAL) CBC W/O DIFFERENTIAL (04/06/2024 4:42 AM ACCOUNT COORDINATOR) Only the most recent of9 resultswithin the time period is included. WBC 7.4 4.0 - 10.7 x10E9/L 04/06/2024 5:34 AM [facility] RBC Count 3.34(L) 3.90 - 5.20 x10E12/L 04/06/2024 5:34 AM [facility] Hemoglobin 9.2(L) 11.9 - 15.8 g/dL 04/06/2024 5:34 AM [facility] Hematocrit 31.8(L) 34.8 - 46.1 % 04/06/2024 5:34 AM [facility] MCV 95.2 80.0 - 98.0 fL 04/06/2024 5:34 AM [facility] MCH 27.5 26.7 - 33.6 pg 04/06/2024 5:34 AM [facility] MCHC 28.9(L) 31.7 - 36.3 g/dL 04/06/2024 5:34 AM [facility] RDW-CV 14.9(H) 11.3 - 14.8 % 04/06/2024 5:34 AM [facility] Platelet Count 353 150 - 420 x10E9/L 04/06/2024 5:34 AM [facility] MPV 10.6 7.8 - 11.4 fL 04/06/2024 5:34 AM [facility] Blood BLOOD SPECIMEN / Unknown Lab Venipuncture / Unknown 04/06/2024 4:42 AM ACCOUNT COORDINATOR 04/06/2024 5:20 AM ACCOUNT COORDINATOR Andre Cesar MD LAB - HEMATOLOGY ORDERABLES [facility] [address] [place] [id number], [facility] [phone] * (ABNORMAL) BASIC METABOLIC PANEL (CALCIUM TOTAL) (04/06/2024 4:42 AM ACCOUNT COORDINATOR) Only the most recent of12 resultswithin the time period is included. BUN 25 7 - 26 mg/dL 04/06/2024 5:45 AM [facility] Creatinine 0.81 0.56 - 0.96 mg/dL 04/06/2024 5:45 AM [facility] Sodium 147(H) 136 - 145 mmol/L 04/06/2024 5:45 AM [facility] Potassium 3.9 3.5 - 4.5 mmol/L 04/06/2024 5:45 AM [facility] Chloride 113(H) 98 - 107 mmol/L 04/06/2024 5:45 AM [facility] CO2 30(H) 22 - 29 mmol/L 04/06/2024 5:45 AM [facility] Glucose 114(H) 70 - 99 mg/dL 04/06/2024 5:45 AM [facility] Calcium 8.8 8.4 - 10.2 mg/dL 04/06/2024 5:45 AM [facility] Anion Gap 4(L) 6 - 16 04/06/2024 5:45 AM [facility] BUN/Creatinine Ratio 31(H) 7 - 23 04/06/2024 5:45 AM [facility] Osmolality Calculated 309(H) 275 - 295 mOsm/kg 04/06/2024 5:45 AM [facility] eGFR by CKD-EPI 70(L) >=90 mL/min/1.7 3 m2 04/06/2024 5:45 AM [facility] Blood BLOOD SPECIMEN / Unknown Lab Venipuncture / Unknown 04/06/2024 4:42 AM ACCOUNT COORDINATOR 04/06/2024 5:17 AM [facility] Andre Cesar MD LAB - CHEMISTRY O RDERABLES [facility] [address] [place] [id number], [facility] [phone] * PHOSPHORUS BLOOD (04/06/2024 4:42 AM ACCOUNT COORDINATOR) Only the most recent of12 resultswithin the time period is included. Phosphorus 3.2 2.9 - 5.1 mg/dL 04/06/2024 5:45 AM ACCOUNT COORDINATOR [facility] Blood BLOOD SPECIMEN / Unknown Lab Venipuncture / Unknown 04/06/2024 4:42 AM ACCOUNT COORDINATOR 04/06/2024 5:17 AM ACCOUNT COORDINATOR Andre Cesar MD LAB - CHEMISTRY O RDCATERINA Performing Organization Address City/[facility]/ZIP Co de Phone Number [address] [phone], [facility] [phone] * MAGNESIUM BLOOD (04/06/2024 4:42 AM ACCOUNT COORDINATOR) Only the most recent of15 resultswithin the time period is included. Magnesium 2.2 1.6 - 2.6 mg/dL 04/06/2024 5:45 AM ACCOUNT COORDINATOR [facility] Blood BLOOD SPECIMEN / Unknown Lab Venipuncture / Unknown 04/06/2024 4:42 AM ACCOUNT COORDINATOR 04/06/2024 5:17 AM ACCOUNT COORDINATOR Andre Cesar MD LAB - CHEMISTRY O RDCATERINA Performing Organization Address [facility] Co de Phone Number [address] [phone], [facility] [phone] * CT Head Wo Contrast (04/04/2024 8:02 PM ACCOUNT COORDINATOR) Only the most recent of3 resultswithin the time period is included. Anatomical Region Laterality Modality Head Computed Tomogra phy 04/04/2024 8:30 PM ACCOUNT COORDINATOR Impressions 04/04/2024 11:36 PM ACCOUNT COORDINATOR IMPRESSION: 1.No new intracranial hemorrhage identified. 2.Interval near complete resolution of a small amount of subdural blood products along the left tentorial leaflet and subarachnoid blood products in the bilateral cerebral sulci and cerebral fissures. 3.Bilateral chronic subdural fluid collections are similar in maximum thickness, now decrease in density and now nearly isodense relative to CSF. Report dictated by Jann Viera MD (optometrist president/practice owner). IGabe MD have personally reviewed and interpreted this examination/study. > Interpreting Provider: Gabe Page MD on 04/04/2024 11:36 PM Narrative 04/04/2024 11:36 PM ACCOUNT COORDINATOR PROCEDURE: ??CT HEAD WO CONTRAST, DATE/TIME OF EXAM: ??04/04/2024 8:03 PM, LOCATION ??[facility] INDICATION: [id number]: Fall, initial encounter EXAMINATION: Computed tomography (CT) of the head without contrast ADDITIONAL CLINICAL INFORMATION: Ordering Provider Reason For Exam: ??Fall Technologist Note: ??None Additional: ??New ground level fall. ?? TECHNIQUE: CT of the head was performed without contrast according to standard protocol. CT dose reduction technique was used, including Automated Exposure Control. COMPARISON: Head CT 03/14/2024 FINDINGS: Interval near complete resolution of a small amount of subdural blood products along the left tentorial leaflet and subarachnoid blood products in the bilateral cerebral sulci and cerebral fissures. Bilateral chronic subdural fluid collections are similar in maximum thickness, now decrease in density and now nearly isodense relative to CSF. No new intracranial hemorrhage identified. There is mild cerebral volume loss with associated ex vacuo ventricular dilatation. The basilar cisterns are patent. No midline shift. 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 The gutierrez-white matter differentiation otherwise appears normal. Periventricular white matter hypoattenuation is indicative of chronic small vessel ischemic disease. There is vascular calcification of the carotid siphons and V4 segments of the vertebral arteries. No acute calvarial fracture is identified. Other than bilateral cataract extractions, the orbits appear normal. The paranasal sinuses are clear. The mastoid air cells are clear. Mild soft tissue swelling in the right frontal temporal scalp. Procedure Note Gabe Page MD - 04/04/2024 PROCEDURE: CT HEAD WO CONTRAST, DATE/TIME OF EXAM: 04/04/2024 8:03 PM, LOCATION [facility] INDICATION: W19.XXXA: Fall, initial encounter EXAMINATION: Computed tomography (CT) of the head without contrast ADDITIONAL CLINICAL INFORMATION: Ordering Provider Reason For Exam: Fall Technologist Note: None Additional: New ground level fall. TECHNIQUE: CT of the head was performed without contrast according to standard protocol. CT dose reduction technique was used, including Automated Exposure Control. COMPARISON: Head CT 03/14/2024 FINDINGS: Interval near complete resolution of a small amount of subdural blood products along the left tentorial leaflet and subarachnoid bloodproducts in the bilateral cerebral sulci and cerebral fissures. Bilateral chronic subdural fluid collections are similar in maximum thickness, now decrease in density and now nearly isodense relative toCSF. No new intracranial hemorrhage identified. There is mild cerebral volume loss with associated ex vacuo ventricular dilatation. The basilarcisterns are patent. No midline shift. 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 The gutierrez-white matter differentiation otherwise appears normal. Periventricular white matter hypoattenuationis indicative of chronic small vessel ischemic disease. There is vascular calcification of the carotid siphons and V4 segments of the vertebral arteries. No acute calvarial fracture is identified. Other thanbilateral cataract extractions, the orbits appear normal. The paranasal sinusesare clear. The mastoid air cells are clear. Mild soft tissue swelling in the right frontal temporal scalp. IMPRESSION: 1.No new intracranial hemorrhage identified. 2.Interval near complete resolution of a small amount of subdural blood products along the left tentorial leaflet and subarachnoid bloodproducts in the bilateral cerebral sulci and cerebral fissures. 3.Bilateral chronic subdural fluid collections are similar in maximum thickness, now decrease in density and now nearly isodense relative toCSF. Report dictated by Jann Viera MD (optometrist president/practice owner). I, Gabe Page MD have personally reviewed and interpretedthis examination/study. > Interpreting Provider: Gabe Page MD on 04/04/2024 11:36PM Isabella Elliott MD CT ORDERABLES * (ABNORMAL) URINALYSIS REFLEX TO MICROSCOPIC NO CULTURE (03/29/2024 1:31 PM ACCOUNT COORDINATOR) Only the most recent of2 resultswithin the time period is included. Color UA Yellow Straw, Yellow 03/29/2024 1:54 PM ACCOUNT COORDINATOR [facility] Clarity UA Turbid(A) Clear 03/29/2024 1:54 PM ACCOUNT COORDINATOR [facility] Specific [place] UA 1.012 1.005 - 1.030 03/29/2024 1:54 PM ACCOUNT COORDINATOR [facility] pH UA 8.0 5.0 - 8.0 pH 03/29/2024 1:54 PM [facility] Protein UA Negative Negative 03/29/2024 1:54 PM [facility] Glucose UA Negative Negative 03/29/2024 1:54 PM [facility] Ketone UA Negative Negative 03/29/2024 1:54 PM [facility] Bilirubin UA Negative Negative 03/29/2024 1:54 PM [facility] Blood UA Negative Negative 03/29/2024 1:54 PM [facility] Nitrite UA Negative Negative 03/29/2024 1:54 PM [facility] Leukocyte Esterase Negative Negative 03/29/2024 1:54 PM [facility] Urobilinogen UA Negative Negative mg/dL 03/29/2024 1:54 PM [facility] RBC UA 3-5 None Seen, 0-2, 3-5 /HPF 03/29/2024 1:54 PM [facility] WBC UA 0-5 None Seen, 0-5 /HPF 03/29/2024 1:54 PM [facility] Squamous Epithelial Cells UA 3-5 None Seen, 0-2, 3-5 /HPF 03/29/2024 1:54 PM [facility] Mucus UA 1+ /LPF 03/29/2024 1:54 PM [facility] Amorphous Crystals Many(A) None /HPF 03/29/2024 1:54 PM [facility] Urine URINE SPECIMEN OBTAINED BY CLEAN CATCH PROCEDURE / Unknown Collection / Unknown 03/29/2024 1:31 PM ACCOUNT COORDINATOR 03/29/2024 1:31 PM [facility] - 03/29/2024 1:54 PM ACCOUNT COORDINATOR Dian Valera GAME ENGINEER-MEAL PACKER LAB - URINALYSIS ORDERABLES [facility] [address] [place] [address], [facility] [phone] * (ABNORMAL) CBC W AUTO DIFFERENTIAL (03/25/2024 10:32 AM ACCOUNT COORDINATOR) Only the most recent of13 resultswithin the time period is included. WBC 9.1 4.0 - 10.7 x10E9/L 03/25/2024 10:54 AM [facility] RBC Count 3.32(L) 3.90 - 5.20 x10E12/L 03/25/2024 10:54 AM [facility] Hemoglobin 9.6(L) 11.9 - 15.8 g/dL 03/25/2024 10:54 AM [facility] Hematocrit 30.9(L) 34.8 - 46.1 % 03/25/2024 10:54 AM [facility] MCV 93.1 80.0 - 98.0 fL 03/25/2024 10:54 AM [facility] MCH 28.9 26.7 - 33.6 pg 03/25/2024 10:54 AM [facility] MCHC 31.1(L) 31.7 - 36.3 g/dL 03/25/2024 10:54 AM [facility] RDW-CV 15.5(H) 11.3 - 14.8 % 03/25/2024 10:54 AM [facility] Platelet Count 365 150 - 420 x10E9/L 03/25/2024 10:54 AM [facility] MPV 9.7 7.8 - 11.4 fL 03/25/2024 10:54 AM [facility] Neutrophil % 72.8 41.0 - 74.0 % 03/25/2024 10:54 AM [facility] Lymphocyte % 16.1(L) 17.0 - 47.0 % 03/25/2024 10:54 AM [facility] Monocyte % 7.5 3.0 - 11.0 % 03/25/2024 10:54 AM [facility] Eosinophil % 3.0 0.0 - 7.0 % 03/25/2024 10:54 AM [facility] Basophil % 0.3 0.0 - 1.6 % 03/25/2024 10:54 AM [facility] Immature Granulocytes % 0.3 0.0 - 1.0 % 03/25/2024 10:54 AM [facility] Neutrophil Absolute 6.64 1.60 - 7.50 x10E9/L 03/25/2024 10:54 AM [facility] Lymphocyte Absolute 1.47 1.00 - 4.40 x10E9/L 03/25/2024 10:54 AM [facility] Monocyte Absolute 0.68 0.15 - 1.00 x10E9/L 03/25/2024 10:54 AM [facility] Eosinophil Absolute 0.27 0.00 - 0.60 x10E9/L 03/25/2024 10:54 AM [facility] Basophil Absolute 0.03 0.00 - 0.13 x10E9/L 03/25/2024 10:54 AM [facility] Blood BLOOD SPECIMEN / Unknown Lab Venipuncture / Unknown 03/25/2024 10:32 AM ACCOUNT COORDINATOR 03/25/2024 10:44 AM ACCOUNT COORDINATOR Bethanie Benitez GAME ENGINEER-MEAL PACKER LAB - HEMATOLOGY ORDERABLES Performing Organization Address City/[facility]/ZIP Co de Phone Number [address] [address], [facility] [phone] * (ABNORMAL) GLUCOSE - POINT OF CARE (03/24/2024 8:18 PM ACCOUNT COORDINATOR) Only the most recent of39 resultswithin the time period is included. Glucose WB/POC 123(H) 70 - 99 mg/dL 03/24/2024 8:22 PM [facility] Specimen Type Cap Fingerstick 2023 8:22 PM [facility] Blood BLOOD SPECIMEN / Unknown 03/24/2024 8:18 PM ACCOUNT COORDINATOR 03/24/2024 8:22 PM ACCOUNT COORDINATOR Lennie Anna MD LAB - POINT OF CARE ORDERABLES Performing Organization Address City/[facility]/ZIP Co de Phone Number [address] [address], [place] [phone] * (ABNORMAL) CALCIUM IONIZED WHOLE BLOOD (03/21/2024 2:12 AM ACCOUNT COORDINATOR) Only the most recent of9 resultswithin the time period is included. Calcium Ionized 1.15 mmol/L 03/21/2024 2:42 AM ACCOUNT COORDINATOR [facility] pH 7.39 7.35 - 7.45 pH 03/21/2024 2:42 AM ACCOUNT COORDINATOR [facility] Ionized Calcium pH Adjusted 1.15(L) 1.19 - 1.34 mmol/L 03/21/2024 2:42 AM ACCOUNT COORDINATOR [facility] Blood BLOOD SPECIMEN / Unknown Lab Venipuncture / Unknown 03/21/2024 2:12 AM ACCOUNT COORDINATOR 03/21/2024 2:40 AM ACCOUNT COORDINATOR Lennie Anna MD LAB - CHEMISTRY ORDERABLES [facility] [address] [place] [address], [facility] [phone] * XR Chest 1Vw Portable (03/19/2024 4:35 AM ACCOUNT COORDINATOR) Only the most recent of8 resultswithin the time period is included. Anatomical Region Laterality Modality Chest Digital Radiogra phy 03/19/2024 9:57 PM ACCOUNT COORDINATOR Impressions 03/19/2024 9:58 PM ACCOUNT COORDINATOR IMPRESSION: *Stable endotracheal tube and partially imaged enteric tube. Normal cardiomediastinal silhouette. Atherosclerotic aorta. No focal consolidation, pleural effusion, or pneumothorax. > Interpreting Provider: Argenis Morales MD on 03/19/2024 9:58 PM Narrative 03/19/2024 9:58 PM ACCOUNT COORDINATOR PROCEDURE: ??XR CHEST 1VW PORTABLE DATE/TIME OF EXAM: ??03/19/2024 5:11 AM CLINICAL INFORMATION: None relevant/not provided if blank. Indication: Z97.8: Endotracheal tube present Additional History: COMPARISON: 03/18/2024 Procedure Note Argenis Morales MD - 03/19/2024 PROCEDURE: XR CHEST 1VW PORTABLE DATE/TIME OF EXAM: 03/19/2024 5:11 AM CLINICAL INFORMATION: None relevant/not provided if blank. Indication: Z97.8: Endotracheal tube present Additional History: COMPARISON: 03/18/2024 IMPRESSION: *Stable endotracheal tube and partially imaged enteric tube. Normal cardiomediastinal silhouette. Atherosclerotic aorta. No focal consolidation, pleural effusion, or pneumothorax. > Interpreting Provider: Argenis Morales MD on 03/19/2024 9:58 PM Lennie Anna MD DIAGNOSTIC IMAG ING ORDERABLES * TRANSFUSE RED BLOOD CELL LEUKOREDUCED UNIT(S) (03/18/2024 3:24 AM ACCOUNT COORDINATOR) Lennie Anna MD NURSING - BLOOD PROD TRANSFUSION * PREPARE (CROSSMATCH) RBC UNIT(S), 1 Units (03/18/2024 1:34 AM ACCOUNT COORDINATOR) Unit Description AS1 LR PRBC [facility] Unit ABO O [facility] Unit Rh NEG [facility] Product Number R44 [facility] Unit Donor # [id number] [facility] Unit Status transfused [facility] Product Code [id number] [facility] Blood Type Barcode 9500 [facility] Expiration Date [facility] Blood Bank BLOOD SPECIMEN / Unknown 03/18/2024 12:43 AM ACCOUNT COORDINATOR Lennie Anna MD LAB - BLOOD BAN K ORDERABLES [facility] [address] [place] [address], [facility] [phone] * TYPE + SCREEN PANEL (03/18/2024 12:35 AM ACCOUNT COORDINATOR) Only the most recent of2 resultswithin the time period is included. Antibody Screen NEG 1:25 AM ACCOUNT COORDINATOR [facility] ABO Rh O POS 03/18/2024 1:25 AM ACCOUNT COORDINATOR [facility] Blood Bank BLOOD SPECIMEN / Unknown Venipuncture / Unknown 03/18/2024 12:35 AM ACCOUNT COORDINATOR 03/18/2024 12:43 AM ACCOUNT COORDINATOR Lennie Anna MD LAB - BLOOD BAN K ORDERABLES [facility] [address] [place] [address], [facility] [phone] * ECHO COMPLETE W CONTRAST (03/17/2024 11:33 AM ACCOUNT COORDINATOR) IVSd 2D 1.027 cm SSM CV FUJ I PACS LVIDd 3.762 cm SSM CV FUJ I PACS LVIDs 2.463 cm SSM CV FUJ I PACS LVOT diam 1.878 cm SSM CV FUJ I PACS LVPWd 0.831 cm SSM CV FUJ I PACS LVOT pk cruz 73.062 cm/s SSM CV F UJI PACS LVOT VTI 16.201 cm SSM CV FUJ I PACS LA size 3.358 cm SSM CV FUJ I PACS AV mn grad 2.197 mmHg SSM CV FU JI PACS AV pk cruz 106.496 cm/s SSM CV FUJ I PACS AV VTI 18.337 cm SSM CV FUJ I PACS MV A pk cruz 53.647 cm/s SSM CV F UJI PACS MV E pk cruz 46.036 cm/s SSM CV F UJI PACS MV E' lateral cruz 6.533 cm/s SSM CV FUJI PACS MV mn grad 0.937 mmHg SSM CV FU JI PACS MV VTI 16.341 cm SSM CV FUJ I PACS PV pk cruz 84.906 cm/s SSM CV FUJ I PACS PV VTI 15.876 cm SSM CV FUJ I PACS IVC Diam Expiration 2.002 cm SSM CV FUJI PACS Myocardial strain charge 2 unitless SSM CV FUJI PACS Anatomical Region Laterality Modality Ultrasound 03/17/2024 10:3 7 AM ACCOUNT COORDINATOR Narrative 03/17/2024 2:48 PM ACCOUNT COORDINATOR Summary ??* The left ventricle is normal in size with normal systolic function and an estimated ejection fraction of 65-70% by visual estimate. Left ventricular wall motion is grossly normal, however endocardial definition is limited. ??* The left ventricular mass is normal with concentric remodeling. ??* The left ventricular diastolic function is indeterminate. ??* Right ventricle is normal in size with normal systolic function. ??* No hemodynamically significant valve disease. ??* There is a small to moderate pericardial effusion along the right ventricle. No evidence of tamponade physiology. Patient Info Name: ? Emerald Villafana Age: ? 88 years : ? 1935 Gender: ? Female Accession #: ? [id number] Ht: ? 67 in Wt: ? 183 lb BSA: ? 2.00 m2 Exam Date: ? 03/17/2024 10:37 AM Patient Status: ? I/P Study Site: ? [facility] Primary Location: ? [facility] EStud Info Technical Quality: ? Fair Exam Type: ? ECHO COMPLETE W CONTRAST Indications ?T14.90XA - Trauma Procedure(s) ??* A complete 2D, color Doppler, spectral Doppler and M-Mode transthoracic echocardiogram was performed with an Ultrasound Enhancing Agent (UEA). Contrast/Agitated Saline Contrast / Saline: ? Definity Amount: ? 1.50 ml Administered By: ? Ernesto Leigh Reaction to Contrast: ? no Reason for Technically Difficult ??Study: ? poor acoustic windows Staff Referring Physician: ? Lennie Anna Ordering Provider: ? Lennie Anna Attending Physician: ? Lennie Anna Line Analyst: ? Ernesto Leigh Left Ventricle ??The left ventricle is normal in size. Left ventricular systolic function is normal with an estimated ejection fraction of 65-70% by visual estimate. The left ventricular mass is normal with concentric remodeling. Left ventricular segmental wall motion is grossly normal, however endocardial definition is limited. The left ventricular diastolic function is indeterminate. Right Ventricle ??The right ventricle is normal in size. Right ventricular systolic function is normal. Left Atrium ??The left atrium is normal in size. Right Atrium ??The right atrium is not well visualized, but appears grossly normal in size. Atrial Septum ??Interatrial septum not well visualized by 2D and color Doppler imaging. Aortic Valve ??The aortic valve is trileaflet. There is no aortic valve stenosis. There is no aortic valve regurgitation. Pulmonic Valve ??The pulmonic valve is grossly normal. There is no pulmonic valve stenosis. There is no significant pulmonic regurgitation. Mitral Valve ??The mitral valve is normal. There is no mitral valve stenosis. There is no significant mitral valve regurgitation. Tricuspid Valve ??The tricuspid valve is normal. There is no significant tricuspid valve regurgitation. Unable to assess pulmonary pressures due to a lack of tricuspid and pulmonic regurgitation. Pericardium/Pleural ??There is a small to moderate pericardial effusion along the right ventricle. No evidence of tamponade physiology. Measurements Left Ventricular Outflow Tract Name ? Value ?Normal LVOT 2D LVOT Diameter ? 1.9 cm ? LVOT Area ?2.8 cm2 ? LVOT Doppler LVOT Peak Velocity ? 0.7 m/s ? LVOT Peak Gradient ?2 mmHg ? LVOT Mean Velocity ?53.04 cm/s ? LVOT Mean Gradient ?1 mmHg ? LVOT VTI ? 16.2 cm ? LVOT VTI/AV VTI Ratio ?0.9 ? LVOT Stroke Volume ? 45 ml ? LVOT Stroke Volume Index ?22 ml/m2 ? 35-58 LVOT CO ?8.8 l/min ? LVOT CI ? 4.4 l/min/m2 Pulmonic Valve Name ? Value ?Normal PV Doppler PV Peak Velocity ? 0.8 m/s ? PV Peak Gradient ?3 mmHg ? PV Mean Gradient ?2 mmHg Mitral Valve Name ? Value ?Normal MV Doppler MV Peak Gradient ?2 mmHg ? MV Mean Gradient ?1 mmHg ? MV DI (VTI) ? 1.01 ? MV PHT ? 59 ms ? MV Area (PHT) ? 3.71 cm2 ? 4.00-5.00 MV Area (Cont Eq VTI) ? 2.74 cm2 ? MV Diastolic Function MV E Peak Velocity ? 0.5 m/sec ? MV A Peak Velocity ? 0.5 m/sec ? MV E/A ? 0.9 ? MV Decel Time (PW) ?204 ms ? MV Annular TDI MV Septal e' Velocity ? 5 cm/s ? >=8 MV E/e' (Septal) ? 9 ? <=8 MV Lateral e' Velocity ?7 cm/s ?>=10 MV E/e' (Lateral) ?7 ? <=8 MV e' Average ? 6 cm/s ? MV E/e' (Average) ?8 Tricuspid Valve Name ? Value ?Normal TV Annular TDI TV Lateral Kortney s' Velocity ? 13 cm/s ? 10-19 Venous Name ? Value ?Normal IVC/SVC IVC Diameter ?2.0 cm ? <=2.1 Aortic Valve Name ? Value ?Normal AV 2D/MM AV Cusp Sep (MM) ?1.7 cm ? AV Doppler AV Peak Velocity ?1.06 m/s ? AV Peak Gradient ?5 mmHg ? AV Mean Gradient ?2 mmHg ? AV VTI ? 18 cm ? AV Area (Cont Eq VTI) ? 2.45 cm2 ?>=2.00 AV Area (Cont Eq Cruz) ? 1.90 cm2 ? AV DI (VTI) ? 0.88 ? AV DI (Cruz) ? 0.69 ? AV Regurgitation 2D LVOT Area ? 2.77 cm2 Ventricles Name ? Value ?Normal LV Dimensions 2D/MM IVS Diastolic Thickness (2D) ?1.0 cm ? 0.6-0.9 LVID Diastole (2D) ?3.8 cm ? 3.8-5.2 LVPW Diastolic Thickness (2D) ?0.8 cm ? 0.6-0.9 LVID Systole (2D) ? 2.5 cm ? 2.2-3.5 LV Mass (2D Cubed) ? 104 g ?67-162 LV Mass Index (2D Cubed) ? 52 g/m2 ? 43-95 Relative Wall Thickness (2D) ?0.44 ?<=0.42 LV Fractional Shortening/Ejection Fraction 2D/MM LV Fractional Shortening (2D) ?35 % ? 27-45 LV EF (2D Aleida) ? 64 % ? 54-74 Atria Name ? Value ?Normal LA Dimensions LA Dimension (2D) ? 3.4 cm ? 2.7-3.8 LA Dimen Index (2D) ?1.7 cm/m2 Report Signatures Finalized by Arielle Alfaro on 03/17/2024 02:48 PM Procedure Note Arielle Alfaro MD - 03/17/2024 Summary * The left ventricle is normal in size with normal systolic function andan estimated ejection fraction of 65-70% by visual estimate. Leftventricular wall motion is grossly normal, however endocardial definition islimited. * The left ventricular mass is normal with concentric remodeling. * The left ventricular diastolic function is indeterminate. * Right ventricle is normal in size with normal systolic function. * No hemodynamically significant valve disease. * There is a small to moderate pericardial effusion along the right ventricle. No evidence of tamponade physiology. Patient Info Name: Emerald Bashir Locandro Age: 88 years : 1935 Gender: Female Ht: 67 in Wt: 183 lb BSA: 2.00 m2 Exam Date: 03/17/2024 10:37 AM Patient Status: I/P Study Site: [facility] Primary Location: [facility] Info Technical Quality: Fair Exam Type: ECHO COMPLETE W CONTRAST Indications T14.90XA - Trauma Procedure(s) * A complete 2D, color Doppler, spectral Doppler and M-Modetransthoracic echocardiogram was performed with an Ultrasound Enhancing Agent (UEA). Contrast/Agitated Saline Contrast / Saline: Definity Amount: 1.50 ml Administered By: Ernesto Leigh Reaction to Contrast: no Reason for Technically Difficult Study: poor acoustic windows Staff Referring Physician: Lennie Anna Ordering Provider: Lennie Anna Attending Physician: Lennie Anna Line Analyst: Ernesto Leigh Left Ventricle The left ventricle is normal in size. Left ventricular systolic functionis normal with an estimated ejection fraction of 65-70% by visual estimate.The left ventricular mass is normal with concentric remodeling. Leftventricular segmental wall motion is grossly normal, however endocardial definitionis limited. The left ventricular diastolic function is indeterminate. Right Ventricle The right ventricle is normal in size. Right ventricular systolicfunction is normal. Left Atrium The left atrium is normal in size. Right Atrium The right atrium is not well visualized, but appears grossly normal insize. Atrial Septum Interatrial septum not well visualized by 2D and color Dopplerimaging. Aortic Valve The aortic valve is trileaflet. There is no aortic valve stenosis. Thereis no aortic valve regurgitation. Pulmonic Valve The pulmonic valve is grossly normal. There is no pulmonic valvestenosis. There is no significant pulmonic regurgitation. Mitral Valve The mitral valve is normal. There is no mitral valve stenosis. There isno significant mitral valve regurgitation. Tricuspid Valve The tricuspid valve is normal. There is no significant tricuspid valve regurgitation. Unable to assess pulmonary pressures due to a lack oftricuspid and pulmonic regurgitation. Pericardium/Pleural There is a small to moderate pericardial effusion along the rightventricle. No evidence of tamponade physiology. Measurements Left Ventricular Outflow Tract Name Value Normal LVOT 2D LVOT Diameter 1.9 cm LVOT Area 2.8 cm2 LVOT Doppler LVOT Peak Velocity 0.7 m/s LVOT Peak Gradient 2 mmHg LVOT Mean Velocity 53.04 cm/s LVOT Mean Gradient 1 mmHg LVOT VTI 16.2 cm LVOT VTI/AV VTI Ratio 0.9 LVOT Stroke Volume 45 ml LVOT Stroke Volume Index 22 ml/m2 35-58 LVOT CO 8.8 l/min LVOT CI 4.4 l/min/m2 Pulmonic Valve Name Value Normal PV Doppler PV Peak Velocity 0.8 m/s PV Peak Gradient 3 mmHg PV Mean Gradient 2 mmHg Mitral Valve Name Value Normal MV Doppler MV Peak Gradient 2 mmHg MV Mean Gradient 1 mmHg MV DI (VTI) 1.01 MV PHT 59 ms MV Area (PHT) 3.71 cm2 4.00-5.00 MV Area (Cont Eq VTI) 2.74 cm2 MV Diastolic Function MV E Peak Velocity 0.5 m/sec MV A Peak Velocity 0.5 m/sec MV E/A 0.9 MV Decel Time (PW) 204 ms MV Annular TDI MV Septal e' Velocity 5 cm/s >=8 MV E/e' (Septal) 9 <=8 MV Lateral e' Velocity 7 cm/s >=10 MV E/e' (Lateral) 7 <=8 MV e' Average 6 cm/s MV E/e' (Average) 8 Tricuspid Valve Name Value Normal TV Annular TDI TV Lateral Kortney s' Velocity 13 cm/s 10-19 Venous Name Value Normal IVC/SVC IVC Diameter 2.0 cm <=2.1 Aortic Valve Name Value Normal AV 2D/MM AV Cusp Sep (MM) 1.7 cm AV Doppler AV Peak Velocity 1.06 m/s AV Peak Gradient 5 mmHg AV Mean Gradient 2 mmHg AV VTI 18 cm AV Area (Cont Eq VTI) 2.45 cm2 >=2.00 AV Area (Cont Eq Cruz) 1.90 cm2 AV DI (VTI) 0.88 AV DI (Cruz) 0.69 AV Regurgitation 2D LVOT Area 2.77 cm2 Ventricles Name Value Normal LV Dimensions 2D/MM IVS Diastolic Thickness (2D) 1.0 cm 0.6-0.9 LVID Diastole (2D) 3.8 cm 3.8-5.2 LVPW Diastolic Thickness (2D) 0.8 cm 0.6-0.9 LVID Systole (2D) 2.5 cm 2.2-3.5 LV Mass (2D Cubed) 104 g 67-162 LV Mass Index (2D Cubed) 52 g/m2 43-95 Relative Wall Thickness (2D) 0.44 <=0.42 LV Fractional Shortening/Ejection Fraction 2D/MM LV Fractional Shortening (2D) 35 % 27-45 LV EF (2D Teicholz) 64 % 54-74 Atria Name Value Normal LA Dimensions LA Dimension (2D) 3.4 cm 2.7-3.8 LA Dimen Index (2D) 1.7 cm/m2 Report Signatures Finalized by Arielle Alfaro on 03/17/2024 02:48 PM Lennie Anna MD ECHO CUPID * CARDIAC EKG ORDER (03/16/2024 1:34 PM ACCOUNT COORDINATOR) Narrative 03/16/2024 1:34 PM ACCOUNT COORDINATOR Ordered by an unspecified provider. Scanned Document CARDIAC SERVICES ORD ERABLES * (ABNORMAL) BLOOD GASES ART + COOX PANEL (03/16/2024 1:37 AM ACCOUNT COORDINATOR) Only the most recent of4 resultswithin the time period is included. pH Arterial 7.41 7.35 - 7.45 pH 03/16/2024 1:44 AM [facility] pO2 Arterial 134(H) 80 - 100 mmHg 03/16/2024 1:44 AM [facility] pCO2 Arterial 34(L) 35 - 45 mmHg 1:44 AM [facility] HCO3 Arterial 21.6 20.0 - 30.0 mmol/L 03/16/2024 1:44 AM [facility] BE Arterial -2.7(L) -2.0 - 2.0 mmol/L 03/16/2024 1:44 AM [facility] Oxyhemoglobin Arterial 97.8 % 03/16/2024 1:44 AM [facility] Dexoyhemoglobin (HHB) % <1.0 % 03/16/2024 1:44 AM [facility] Methemoglobin 0.9 0.0 - 2.0 % 03/16/2024 1:44 AM [facility] Carboxyhemoglobin 1.2 0.0 - 2.0 % 2023 1:44 AM [facility] O2 Content Arterial 11.6 Interpret within clinical context ml/dL 03/16/2024 1:44 AM [facility] Hemoglobin by COOX 8.2(L) 12.0 - 15.6 g/dL 03/16/2024 1:44 AM [facility] O2 Saturation Arterial 100 90 - 100 % 03/16/2024 1:44 AM [facility] FI O2 Arterial 30.0 % 03/16/2024 1:44 AM [facility] Blood, arterial ARTERIAL BLOOD SPECIMEN / Unknown Arterial Puncture / Unknown 03/16/2024 1:37 AM ACCOUNT COORDINATOR 03/16/2024 1:40 AM [facility] - 03/16/2024 1:44 AM [facility] Carboxyhemoglobin Normal Concentration: Non-smokers: 0-2%; Smokers: 0-9%; Toxic: >20% Lennie Anna MD LAB - BLOOD GAS ES ORDERABLES [facility] [address] [place] [address], [facility] [phone] * (ABNORMAL) TROPONIN-I HIGH SENSITIVE REFLEX 1HOUR (03/15/2024 9:07 PM ACCOUNT COORDINATOR) Only the most recent of2 resultswithin the time period is included. Troponin I High Sensitive 19(H) <=14 ng/L 03/15/2024 9:51 PM ACCOUNT COORDINATOR [facility] Delta Troponin I HS 03/15/2024 9:51 PM ACCOUNT COORDINATOR [facility] Comment:Delta value intentio nuno not calculated. Baseline to 1 hour specimen collection interval exceeded. Blood BLOOD SPECIMEN / Unknown Venipuncture / Unknown 03/15/2024 9:07 PM ACCOUNT COORDINATOR 03/15/2024 9:14 PM ACCOUNT COORDINATOR Lennie Anna MD LAB - CHEMISTRY ORDERABLES Performing Organization Address City/[facility]/ZIP Co de Phone Number [address] [address], [facility] [phone] * (ABNORMAL) TROPONIN-I HIGH SENSITIVE BASELINE + 1HR (03/15/2024 6:03 PM ACCOUNT COORDINATOR) Only the most recent of2 resultswithin the time period is included. Pathologist [facility] Troponin I High Sensitive 17(H) <=14 ng/L 03/15/2024 6:54 PM ACCOUNT COORDINATOR [facility] Blood BLOOD SPECIMEN / Unknown Venipuncture / Unknown 03/15/2024 6:03 PM ACCOUNT COORDINATOR 03/15/2024 6:21 PM ACCOUNT COORDINATOR Lennie Anna MD LAB - CHEMISTRY ORDERABLES [address] [address], [facility] [phone] * (ABNORMAL) TROPONIN-I HIGH SENSITIVE (03/15/2024 4:26 PM ACCOUNT COORDINATOR) Troponin I High Sensitive 22(H) <=14 ng/L 03/15/2024 5:03 PM ACCOUNT COORDINATOR [facility] Blood BLOOD SPECIMEN / Unknown Venipuncture / Unknown 03/15/2024 4:26 PM ACCOUNT COORDINATOR 03/15/2024 4:33 PM ACCOUNT COORDINATOR Lennie Anna MD LAB - CHEMISTRY ORDERABLES [facility] [address] [place] [address], [place] [phone] * B-TYPE NATRIURETIC PEPTIDE (03/15/2024 4:26 PM ACCOUNT COORDINATOR) Only the most recent of2 resultswithin the time period is included. BNP 50 <100 pg/mL 03/15/2024 5:04 PM ACCOUNT COORDINATOR [facility] Comment: A decision threshold of 100 pg/mL has been demonstrated to provide the maximal combination of sensitivity, specificity and predictive value for the diagnosis of congestive heart failure (CHF). ??Virtually all patients with no evidence of CHF have BNP values less than 100 pg/mL. A BNP value greater than 100 pg/mL is consistent with the diagnosis of CHF in the appropriate clinical setting. In a study of 693 patients (male and female) with diagnosed CHF, the following values were determined based on the NYHA functional classification system: NYHA Functional Class ?Mean Valule (pg/mL) ? % >100 pg/mL ?I ?320 ? 58.1 ?II ? 432 ? 73.0 ?III ?656 ? 79.0 ?IV ?1635 ? 98.3 ? Blood BLOOD SPECIMEN / Unknown Venipuncture / Unknown 03/15/2024 4:26 PM ACCOUNT COORDINATOR 03/15/2024 4:33 PM ACCOUNT COORDINATOR Lennie Anna MD LAB - CHEMISTRY ORDERABLES Performing Organization Address [facility]/State/ZIP Co de Phone Number [facility] [address] [place] [address], [facility] [phone] * (ABNORMAL) COMPREHENSIVE METABOLIC PANEL (03/15/2024 4:26 PM ACCOUNT COORDINATOR) Only the most recent of3 resultswithin the time period is included. BUN 26 7 - 26 mg/dL 03/15/2024 4:59 PM [facility] Creatinine 1.16(H) 0.56 - 0.96 mg/dL 03/15/2024 4:59 PM [facility] Sodium 131(L) 136 - 145 mmol/L 03/15/2024 4:59 PM [facility] Potassium 3.8 3.5 - 4.5 mmol/L 03/15/2024 4:59 PM [facility] Chloride 107 98 - 107 mmol/L 03/15/2024 4:59 PM [facility] CO2 21(L) 22 - 29 mmol/L 03/15/2024 4:59 PM [facility] Glucose 155(H) 70 - 99 mg/dL 03/15/2024 4:59 PM [facility] Calcium 7.6(L) 8.4 - 10.2 mg/dL 03/15/2024 4:59 PM [facility] Protein Total 4.4(L) 6.0 - 8.3 g/dL 03/15/2024 4:59 PM [facility] Albumin 2.1(L) 3.4 - 5.0 g/dL 03/15/2024 4:59 PM [facility] Bilirubin Total 0.4 0.2 - 1.2 mg/dL 03/15/2024 4:59 PM [facility] Alkaline Phosphatase 44 40 - 150 U/L 03/15/2024 4:59 PM [facility] ALT 8 5 - 55 U/L 03/15/2024 4:59 PM [facility] AST 12 5 - 34 U/L 03/15/2024 4:59 PM [facility] Anion Gap 3(L) 6 - 16 03/15/2024 4:59 PM [facility] BUN/Creatinine Ratio 22 7 - 23 03/15/2024 4:59 PM [facility] Osmolality Calculated 280 275 - 295 mOsm/kg 03/15/2024 4:59 PM [facility] Albumin/Globulin Ratio 0.9(L) 1.1 - 2.3 03/15/2024 4:59 PM [facility] eGFR by CKD-EPI 46(L) >=90 mL/min/1.7 3 m2 03/15/2024 4:59 PM [facility] Blood BLOOD SPECIMEN / Unknown Venipuncture / Unknown 03/15/2024 4:26 PM ACCOUNT COORDINATOR 03/15/2024 4:33 PM [facility] Lennie Anna MD LAB - CHEMISTRY ORDERABLES [facility] [address] [place] [address], [facility] [phone] * EKG 12-LEAD (03/15/2024 4:16 PM ACCOUNT COORDINATOR) Only the most recent of2 resultswithin the time period is included. Ventricular Rate 76 BPM [facility] MUSE Atrial Rate 76 BPM [facility] MUSE P-R Interval 144 ms [facility] QRS Duration ms 76 ms [facility] MUSE Q-T Interval ms 428 ms [facility] MUSE QTC Calculation (Bezet) 481 ms [facility] MUSE Calculated P [place] 79 degrees [facility] MUSE Calculated R [place] 53 degrees [facility] Calculated T [place] -131 degrees [facility] MUSE Interpretation EKG SINUS RHYTHM WITH PREMATURE SUPRAVENTRICULAR COMPLEXES ST & T WAVE ABNORMALITY, CONSIDER INFERIOR ISCHEMIA ST & T WAVE ABNORMALITY, CONSIDER ANTEROLATERAL ISCHEMIA PROLONGED QT ABNORMAL ECG NO PREVIOUS ECGS AVAILABLE Confirmed by ARIELLE ALFARO MD ([id number]) on 03/17/2024 9:36:36 AM [facility] MUSE 03/15/2024 4:16 PM ACCOUNT COORDINATOR 03/17/2024 9:36 AM ACCOUNT COORDINATOR Lennie Anna MD ECG ORDERABLES [facility] MUSE * (ABNORMAL) BLOOD GASES VASILIY + COOX PANEL (03/15/2024 12:05 PM ACCOUNT COORDINATOR) Only the most recent of3 resultswithin the time period is included. pH Venous 7.37 7.32 - 7.42 pH 03/15/2024 12:24 PM [facility] pO2 Venous 45(H) 35 - 40 mmHg 03/15/2024 12:24 PM [facility] pCO2 Venous 39(L) 40 - 50 mmHg 03/15/2024 12:24 PM [facility] HCO3 Venous 22.5 20 - 30 mmol/L 03/15/2024 12:24 PM [facility] Base Excess Venous -2.6(L) -2.0 - 2.0 mmol/L 03/15/2024 12:24 PM [facility] Oxyhemoglobin Venous 75.3 % 02/21 12:24 PM [facility] Deoxyhemoglobin (HHB) Venous % 22.7 % 03/15/2024 12:24 PM [facility] Methemoglobin 1.1 0.0 - 2.0 % 03/15/2024 12:24 PM [facility] Carboxyhemoglobin 0.9 0.0 - 2.0 % 2023 12:24 PM [facility] O2 Content Venous 8.6 Interpret within clinical context ml/dL 03/15/2024 12:24 PM [facility] Hemoglobin by COOX 8.1(L) 12.0 - 15.6 g/dL 03/15/2024 12:24 PM [facility] O2 Saturation Venous 77 >=70 % 02/21 12:24 PM ACCOUNT COORDINATOR [facility] FI O2 Mixed Venous 30.0 % 2023 12:24 PM ACCOUNT COORDINATOR [facility] Blood BLOOD SPECIMEN / Unknown Venipuncture / Unknown 03/15/2024 12:05 PM ACCOUNT COORDINATOR 03/15/2024 12:22 PM ACCOUNT COORDINATOR Narrative [facility] - 03/15/2024 12:24 PM ACCOUNT COORDINATOR Carboxyhemoglobin Normal Concentration: Non-smokers: 0-2%; Smokers: 0-9%; Toxic: >20% Lennie Anna MD LAB - BLOOD GAS ES ORDERABLES Performing Organization Address City/[facility]/ZIP Co de Phone Number [facility] [address] [place] [address], [place] [phone] * TRIGLYCERIDES BLOOD (03/15/2024 12:48 AM ACCOUNT COORDINATOR) Triglycerides 86 <150 mg/dL 03/15/2024 1:09 AM ACCOUNT COORDINATOR [facility] Comment: ATP III Classification of Triglycerides: ?<150 mg/dL: ??Normal ? 150 - 199 mg/dL: ??Borderline High ? 200 - 400 mg/dL: ??High ?>500 mg/dL: ??Very High Blood BLOOD SPECIMEN / Unknown Venipuncture / Unknown 03/15/2024 12:48 AM ACCOUNT COORDINATOR 03/15/2024 1:01 AM ACCOUNT COORDINATOR Luther Bridges MD LAB - CHEMISTRY NANCI LEÓN [facility] [address] [place] [address], [place] [phone] * XR Hand Left 2Vw (03/14/2024 9:53 PM ACCOUNT COORDINATOR) Anatomical Region Laterality Modality Wrist / Hand Digital Radiogra phy 03/15/2024 10:4 5 AM ACCOUNT COORDINATOR Impressions 03/16/2024 12:34 AM ACCOUNT COORDINATOR IMPRESSION: 1. No fracture. 2.Joint space narrowing, more pronounced in the distal interphalangeal joints of the left hand, this could be representing erosive osteoarthropathy. 3.Reduced bone density and coarse texture, correlation with a DEXA scan can be performed if not already done. 4. The above examinations do not constitute proper radiographic examination of the wrist. If there is clinical concern for wrist injury, wrist radiographs would be recommended. > Dictated by Viktor PUENTE [facility] (optometrist president/practice owner). I, Todd Garcia MD have personally reviewed and interpreted this examination/study. > Interpreting Provider: Todd Garcia MD on 03/16/2024 12:34 AM Narrative 03/16/2024 12:34 AM ACCOUNT COORDINATOR EXAMINATION: XR HAND LEFT 2VW DATE/TIME OF EXAM: ??03/14/2024 9:56 PM, LOCATION ??[facility] HISTORY: [id number]: Fall, initial encounter I60.9: Subarachnoid bleed (HCC) R41.82: Altered mental status, unspecified altered mental status type J96.90: Respiratory failure after trauma (HCC) Z97.8: Endotracheal tube present S06.5XAA: Subdural hematoma (HCC) R52: Acute pain Z74.09: Impaired mobility and ADLs Z78.9: Impaired mobility and ADLs T14.90XA: Trauma ecchymosis COMPARISON: No prior study is available for comparison. FINDINGS: No acute fracture or dislocation. Joint space narrowing, more pronounced in the distal interphalangeal joints. Bone density and texture are reduced. No soft tissue swelling is present. ?? Procedure Note Todd Garcia MD - 03/16/2024 EXAMINATION: XR HAND LEFT 2VW DATE/TIME OF EXAM: 03/14/2024 9:56 PM, LOCATION [facility] HISTORY: [id number]: Fall, initial encounter I60.9: Subarachnoid bleed (HCC) R41.82: Altered mental status, unspecified altered mental status type J96.90: Respiratory failure after trauma (HCC) Z97.8: Endotracheal tube present S06.5XAA: Subdural hematoma (HCC) R52: Acute pain Z74.09: Impaired mobility and ADLs Z78.9: Impaired mobility and ADLs T14.90XA: Trauma ecchymosis COMPARISON: No prior study is available for comparison. FINDINGS: No acute fracture or dislocation. Joint space narrowing, more pronouncedin the distal interphalangeal joints. Bone density and texture are reduced.No soft tissue swelling is present. IMPRESSION: 1. No fracture. 2.Joint space narrowing, more pronounced in the distal interphalangeal joints of the left hand, this could be representing erosive osteoarthropathy. 3.Reduced bone density and coarse texture, correlation with a DEXA scancan be performed if not already done. 4. The above examinations do not constitute proper radiographicexamination of the wrist. If there is clinical concern for wrist injury, wrist radiographs would be recommended. > Dictated by Viktor PUENTE [facility] (optometrist president/practice owner). I, Todd Garcia MD have personally reviewed and interpreted this examination/study. > Interpreting Provider: Todd Garcia MD on 03/16/2024 12:34 AM Lenine Anna MD DIAGNOSTIC IMAG ING ORDERABLES * (ABNORMAL) URINALYSIS REFLEX MICROSCOPIC REFLEX CULTURE (03/14/2024 9:51 PM [facility]) Color UA Yellow Straw, Yellow 03/14/2024 10:05 PM [facility] Clarity UA Clear Clear 03/14/2024 10:05 PM [facility] Specific [place] UA >1.060(H) 1.005 - 1.030 03/14/2024 10:05 PM [facility] pH UA 5.0 5.0 - 8.0 pH 03/14/2024 10:05 PM [facility] Protein UA Negative Negative 03/14/2024 10:05 PM [facility] Glucose UA Negative Negative 03/14/2024 10:05 PM [facility] Ketone UA Negative Negative 03/14/2024 10:05 PM [facility] Bilirubin UA Negative Negative 03/14/2024 10:05 PM [facility] Blood UA Negative Negative 03/14/2024 10:05 PM [facility] Nitrite UA Negative Negative 03/14/2024 10:05 PM [facility] Leukocyte Esterase Negative Negative 03/14/2024 10:05 PM [facility] Urobilinogen UA Negative Negative mg/dL 03/14/2024 10:05 PM ACCOUNT COORDINATOR [facility] Comment UA Microscopic not indicated. 03/14/2024 10:05 PM ACCOUNT COORDINATOR [facility] Urine URINE SPECIMEN OBTAINED VIA [facility]WELL[facility] URINARY CATHETER / Unknown Collection / Unknown 03/14/2024 9:51 PM ACCOUNT COORDINATOR 03/14/2024 9:56 PM ACCOUNT COORDINATOR Narrative [facility] - 03/14/2024 10:05 PM ACCOUNT COORDINATOR Lennie Anna MD LAB - URINALYSI S ORDERABLES [facility] [address] [place] [address], [facility] [phone] * XR Hand Right 2Vw (03/14/2024 9:42 PM ACCOUNT COORDINATOR) Anatomical Region Laterality Modality Wrist / Hand Digital Radiogra phy 03/15/2024 10:4 0 AM ACCOUNT COORDINATOR Impressions 03/16/2024 12:33 AM ACCOUNT COORDINATOR IMPRESSION: 1. No fracture. 2. 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 3. Reduced bone density and coarse texture, correlation with a DEXA scan can be performed if not already done. 4. The above examinations do not constitute proper radiographic examination of the wrist. If there is clinical concern for wrist injury, wrist radiographs would be recommended. > Dictated by Viktor PUENTE [facility] (optometrist president/practice owner). I, Todd Garcia MD have personally reviewed and interpreted this examination/study. > Interpreting Provider: Todd Garcia MD on 03/16/2024 12:33 AM Narrative 03/16/2024 12:33 AM ACCOUNT COORDINATOR EXAMINATION: XR HAND RIGHT 2VW DATE/TIME OF EXAM: ??03/14/2024 9:55 PM, LOCATION ??[facility] HISTORY: [id number]: Fall, initial encounter I60.9: Subarachnoid bleed ([facility]) R41.82: Altered mental status, unspecified altered mental status type J96.90: Respiratory failure after trauma ([facility]) Z97.8: Endotracheal tube present S06.5XAA: Subdural hematoma (HCC) R52: Acute pain Z74.09: Impaired mobility and ADLs Z78.9: Impaired mobility and ADLs T14.90XA: Trauma ecchymosis COMPARISON: No prior study is available for comparison. FINDINGS: No acute fracture or dislocation. Joint space narrowing, more pronounced in the distal interphalangeal joints. Bone density and texture are reduced. No soft tissue swelling is present. ?? Procedure Note Todd Garcia MD - 03/16/2024 EXAMINATION: XR HAND RIGHT 2VW DATE/TIME OF EXAM: 03/14/2024 9:55 PM, LOCATION [facility] HISTORY: [id number]: Fall, initial encounter I60.9: Subarachnoid bleed (HCC) R41.82: Altered mental status, unspecified altered mental status type J96.90: Respiratory failure after trauma (HCC) Z97.8: Endotracheal tube present S06.5XAA: Subdural hematoma (HCC) R52: Acute pain Z74.09: Impaired mobility and ADLs Z78.9: Impaired mobility and ADLs T14.90XA: Trauma ecchymosis COMPARISON: No prior study is available for comparison. FINDINGS: No acute fracture or dislocation. Joint space narrowing, more pronouncedin the distal interphalangeal joints. Bone density and texture are reduced.No soft tissue swelling is present. IMPRESSION: 1. No fracture. 2. 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 3. Reduced bone density and coarse texture, correlation with a DEXA scan can be performed if not already done. 4. The above examinations do not constitute proper radiographicexamination of the wrist. If there is clinical concern for wrist injury, wrist radiographs would be recommended. > Dictated by Viktor PUENTE, [facility] (optometrist president/practice owner). ITodd MD have personally reviewed and interpreted this examination/study. > Interpreting Provider: Todd Garcia MD on 03/16/2024 12:33 AM Lennie Anna MD DIAGNOSTIC IMAG ING ORDERABLES * XR Knee Left 2Vw or Less (03/14/2024 9:31 PM ACCOUNT COORDINATOR) Anatomical Region Laterality Modality Lower Extremity Digital Radiogra phy 03/15/2024 10:3 4 AM ACCOUNT COORDINATOR Impressions 03/16/2024 12:30 AM ACCOUNT COORDINATOR IMPRESSION: Left total knee replacement without periprosthetic fracture. > Dictated by Viktor PUENTE [facility] (optometrist president/practice owner). ITodd MD have personally reviewed and interpreted this examination/study. > Interpreting Provider: Todd Garcia MD on 03/16/2024 12:30 AM Narrative 03/16/2024 12:30 AM ACCOUNT COORDINATOR EXAMINATION: XR KNEE LEFT 2VW OR LESS DATE/TIME OF EXAM: ??03/14/2024 9:54 PM, LOCATION ??[facility] HISTORY: [id number]: Fall, initial encounter I60.9: Subarachnoid bleed (HCC) R41.82: Altered mental status, unspecified altered mental status type J96.90: Respiratory failure after trauma (HCC) Z97.8: Endotracheal tube present S06.5XAA: Subdural hematoma (HCC) R52: Acute pain Z74.09: Impaired mobility and ADLs Z78.9: Impaired mobility and ADLs T14.90XA: Trauma ecchymosis COMPARISON: No prior study is available for comparison. FINDINGS: Left total knee replacement. No periprosthetic fracture. No joint effusion is seen. Bone density and texture are normal. No soft tissue swelling is present. Procedure Note Todd Garcia MD - 03/16/2024 EXAMINATION: XR KNEE LEFT 2VW OR LESS DATE/TIME OF EXAM: 03/14/2024 9:54 PM, LOCATION [facility] HISTORY: [id number]: Fall, initial encounter I60.9: Subarachnoid bleed (HCC) R41.82: Altered mental status, unspecified altered mental status type J96.90: Respiratory failure after trauma (HCC) Z97.8: Endotracheal tube present S06.5XAA: Subdural hematoma (HCC) R52: Acute pain Z74.09: Impaired mobility and ADLs Z78.9: Impaired mobility and ADLs T14.90XA: Trauma ecchymosis COMPARISON: No prior study is available for comparison. FINDINGS: Left total knee replacement. No periprosthetic fracture. No jointeffusion is seen. Bone density and texture are normal. No soft tissue swelling is present. 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 > Dictated by Maliha Aldrich (optometrist president/practice owner). Todd Guzmán MD have personally reviewed and interpreted this examination/study. > Interpreting Provider: Todd Garcia MD on 03/16/2024 12:30 AM Lennie Anna MD DIAGNOSTIC IMAG ING ORDERABLES * XR Knee Right 2Vw or Less (03/14/2024 9:20 PM ACCOUNT COORDINATOR) Anatomical Region Laterality Modality Lower Extremity Digital Radiogra phy 03/15/2024 10:3 6 AM ACCOUNT COORDINATOR Impressions 03/16/2024 12:30 AM ACCOUNT COORDINATOR IMPRESSION: No acute fracture or dislocation of knee identified.Intra-articular ossific densities within the right knee joint are indeterminate and could be degenerative. Right knee intercondylar view can be performed if clinically needed. > Dictated by Maliha Aldrich (optometrist president/practice owner). Todd Guzmán MD have personally reviewed and interpreted this examination/study. > Interpreting Provider: Todd Garcia MD on 03/16/2024 12:30 AM Narrative 03/16/2024 12:30 AM ACCOUNT COORDINATOR EXAMINATION: XR KNEE RIGHT 2VW OR LESS DATE/TIME OF EXAM: ??03/14/2024 9:53 PM, LOCATION ??[facility] HISTORY: [id number]: Fall, initial encounter I60.9: Subarachnoid bleed ([facility]) R41.82: Altered mental status, unspecified altered mental status type J96.90: Respiratory failure after trauma ([facility]) Z97.8: Endotracheal tube present S06.5XAA: Subdural hematoma ([facility]) R52: Acute pain Z74.09: Impaired mobility and ADLs Z78.9: Impaired mobility and ADLs T14.90XA: Trauma ecchymosis COMPARISON: No prior study is available for comparison. FINDINGS: Intra-articular ossific densities within the right knee joint are indeterminate. No joint effusion is seen. Bone density and texture are normal. No soft tissue swelling is present. Procedure Note Todd Garcia MD - 03/16/2024 EXAMINATION: XR KNEE RIGHT 2VW OR LESS DATE/TIME OF EXAM: 03/14/2024 9:53 PM, LOCATION [facility] HISTORY: [id number]: Fall, initial encounter I60.9: Subarachnoid bleed (HCC) R41.82: Altered mental status, unspecified altered mental status type J96.90: Respiratory failure after trauma (HCC) Z97.8: Endotracheal tube present S06.5XAA: Subdural hematoma (HCC) R52: Acute pain Z74.09: Impaired mobility and ADLs Z78.9: Impaired mobility and ADLs T14.90XA: Trauma ecchymosis COMPARISON: No prior study is available for comparison. FINDINGS: Intra-articular ossific densities within the right knee joint are indeterminate. No joint effusion is seen. Bone density and texture are normal. No soft tissue swelling is present. IMPRESSION: No acute fracture or dislocation of knee identified.Intra-articularossific densities within the right knee joint are indeterminate and could be degenerative. Right knee intercondylar view can be performed ifclinically needed. > Dictated by Viktor Robbins LAURA [facility] (optometrist president/practice owner). ITodd MD have personally reviewed and interpreted this examination/study. > Interpreting Provider: Todd Garcia MD on 03/16/2024 12:30 AM Lennie Anna MD DIAGNOSTIC IMAG ING ORDERABLES * CT Angio Brain (03/14/2024 6:50 AM ACCOUNT COORDINATOR) Anatomical Region Laterality Modality Head Computed Tomogra phy 03/14/2024 9:34 AM ACCOUNT COORDINATOR Impressions 03/14/2024 10:31 AM ACCOUNT COORDINATOR IMPRESSION: 1.Redemonstration of sequelae of TBI was multilevel compartmental intracranial hemorrhages, including an acute subdural hematoma, along the left tentorial leaflet, as well as well multiple foci of subarachnoid hemorrhages most prominent in the bilateral sylvian fissures and in the basal cisterns, overall similar or slightly conspicuous compared to the prior, allowing for slight differences in the imaging technique and expected redistribution. 2.No significant mass effect or midline shift. 3.No large arterial occlusions or hemodynamically significant stenoses identified in the head. > Interpreting Provider: Gabe Pgae MD on 03/14/2024 10:31 AM Narrative 03/14/2024 10:31 AM ACCOUNT COORDINATOR PROCEDURE: ??CT ANGIO BRAIN, DATE/TIME OF EXAM: ??03/14/2024 6:51 AM, LOCATION ??[facility] INDICATION: I60.9: Subarachnoid bleed (HCC) ADDITIONAL CLINICAL INFORMATION: Ordering Provider Reason For Exam: ??Fu [facility] Technologist Note: ??Does the patient have a history of renal insufficiency?->Unable to ascertain Additional: ??None. CONTRAST: ??IOPAMIDOL 76 % IV SOLN:75 mL EXAMINATION: Computed tomographic (CT) angiography of the head without and with contrast TECHNIQUE: CT of the head was performed without contrast according to standard protocol. Then CT angiography of the head was obtained after the uneventful administration of 75 mL Isovue-370 intravenous contrast. Three dimensional postprocessing was performed by the technologist and sent to the workstation for review. COMPARISON: CT of the head from 03/13/2024. FINDINGS: Non-angiographic findings: Redemonstration of sequelae of traumatic brain injury, with multi-compartmental intracranial hemorrhages, overall grossly similar to the prior as well as: *Acute subdural hematoma layering along the left tentorial leaflet, overall grossly unchanged from prior. *There are small-moderate volume subarachnoid blood products in the bilateral sylvian fissures, similar or slightly more conspicuous compared to the prior. *There are small volume subarachnoid blood products within the basal cisterns bilaterally, similar or slightly more conspicuous compared to the prior. *Subtle hemorrhagic contusions along the anterior right temporal lobe cannot be excluded. There is mild cerebral volume loss with associated ex vacuo ventricular dilatation. No significant mass effect or midline shift is seen. Old lacunar infarct in the right caudate head. The gutierrez-white matter differentiation otherwise appears normal. Periventricular white matter hypoattenuation is indicative of chronic small vessel ischemic disease. There is vascular calcification of the carotid siphons and the V4 segments of the vertebral arteries. No acute calvarial fracture is identified. There is right frontoparietal scalp laceration and hematoma, along with tissue loss. Trace soft tissue gas is seen in this region. No underlying calvarial fracture. Mild scalp soft tissue swelling/contusions along the left parietal region and the left frontal scalp, and superior periorbital area. Angiographic findings: There is atherosclerotic disease involving the distal internal carotid arteries without significant/high-grade focal stenosis. The anterior and middle cerebral arteries appear normal. There is atherosclerotic disease involving the distal vertebral arteries without significant focal stenosis. The basilar artery and posterior cerebral arteries appear normal. No aneurysms, vascular occlusions, or hemodynamically significant intracranial stenoses are identified. Procedure Note Gabe Page MD - 03/14/2024 PROCEDURE: CT ANGIO BRAIN, DATE/TIME OF EXAM: 03/14/2024 6:51 AM, LOCATION [facility] INDICATION: I60.9: Subarachnoid bleed (HCC) ADDITIONAL CLINICAL INFORMATION: Ordering Provider Reason For Exam: [facility] Technologist Note: Does the patient have a history of renal insufficiency?->Unable to ascertain Additional: None. CONTRAST: IOPAMIDOL 76 % IV SOLN:75 mL EXAMINATION: Computed tomographic (CT) angiography of the head withoutand with contrast TECHNIQUE: CT of the head was performed without contrast according to standard protocol. Then CT angiography of the head was obtained afterthe uneventful administration of 75 mL Isovue-370 intravenous contrast.Three dimensional postprocessing was performed by the technologist and sent to the workstation for review. COMPARISON: CT of the head from 03/13/2024. FINDINGS: Non-angiographic findings: Redemonstration of sequelae of traumatic brain injury, with multi-compartmental intracranial hemorrhages, overall grossly similar to the prior as well as: *Acute subdural hematoma layering along the left tentorial leaflet,overall grossly unchanged from prior. *There are small-moderate volume subarachnoid blood products in the bilateral sylvian fissures, similar or slightly more conspicuouscompared to the prior. *There are small volume subarachnoid blood products within the basal cisterns bilaterally, similar or slightly more conspicuous compared tothe prior. *Subtle hemorrhagic contusions along the anterior right temporal lobe cannot be excluded. There is mild cerebral volume loss with associated ex vacuo ventricular dilatation. No significant mass effect or midline shift is seen. Old lacunar infarct in the right caudate head. The gutierrez-white matter differentiation otherwise appears normal. Periventricular white matter hypoattenuation is indicative of chronic small vessel ischemic disease. There is vascular calcification of the carotid siphons and the [id number] of the vertebral arteries. No acute calvarial fracture is identified.There is right frontoparietal scalp laceration and hematoma, along with tissue loss. Trace soft tissue gas is seen in this region. No underlyingcalvarial fracture. Mild scalp soft tissue swelling/contusions along the left parietal region and the left frontal scalp, and superior periorbitalarea. Angiographic findings: There is atherosclerotic disease involving the distal internal carotid arteries without significant/high-grade focal stenosis. The anterior and middle cerebral arteries appear normal. There is atherosclerotic disease involving the distal vertebral arteries without significant focalstenosis. The basilar artery and posterior cerebral arteries appear normal. No aneurysms, vascular occlusions, or hemodynamically significantintracranial stenoses are identified. IMPRESSION: 1.Redemonstration of sequelae of TBI was multilevel compartmental intracranial hemorrhages, including an acute subdural hematoma, alongthe left tentorial leaflet, as well as well multiple foci of subarachnoid hemorrhages most prominent in the bilateral sylvian fissures and in the basal cisterns, overall similar or slightly conspicuous compared to the prior, allowing for slight differences in the imaging technique and expected redistribution. 2.No significant mass effect or midline shift. 3.No large arterial occlusions or hemodynamically significant stenoses identified in the head. > Interpreting Provider: Gabe Page MD on 03/14/2024 10:31AM Lennie Anna MD CT ORDERABLES * BLOOD TYPE VERIFICATION (03/14/2024 5:50 AM ACCOUNT COORDINATOR) ABO Rh O POS 03/14/2024 6:3 1 AM ACCOUNT COORDINATOR [facility] Blood Bank BLOOD SPECIMEN / Unknown Venipuncture / Unknown 03/14/2024 5:50 AM ACCOUNT COORDINATOR 03/14/2024 5:59 AM ACCOUNT COORDINATOR Luther Bridges MD LAB - BLOOD BANK ORD ERABLES [facility] [address] [place] [address], [facility] [phone] * HEMOGLOBIN A1C (03/14/2024 5:50 AM ACCOUNT COORDINATOR) Hemoglobin A1c 5.0 <=5.6 % 03/14/2024 9:30 AM [facility] Estimated Average Glucose 97 mg/dL 03/14/2024 9:30 AM [facility] Comment: HbA1c Interpretation: Normal : < 5.7% Pre-diabetes: 5.7-6.4% Diabetes: Equal to or greater than 6.5% Test results diagnostic of diabetes should be repeated for confirmation. Treatment target values recommended by ADA and other clinical organizations should be used to evaluate metabolic control in patients. Reference: [place] [employer], Standards of Care in Diabetes -2020 In patients 70 years and older consider HbA1c target range of 7.0-7.5% (Reference: Wander Greene et al. JAMDA. 2012) The Sebia assay for the measurement of HbA1c is a National Glycohemoglobin Standardization Program (NGSP) certified method. Blood BLOOD SPECIMEN / Unknown Venipuncture / Unknown 03/14/2024 5:50 AM ACCOUNT COORDINATOR 03/14/2024 5:53 AM [facility] Lennie Anna MD LAB - CHEMISTRY ORDERABLES [address] [address], [facility] [phone] * (ABNORMAL) URINE DRUG SCREEN IMMUNOASSAY (03/14/2024 5:23 AM [facility]) [facility] Amphetamines Screen Urine Negative Negative : < 1000 ng/mL 03/14/2024 6:15 AM [facility] Barbiturates Screen Urine Negative Negative : < 200 ng/mL 03/14/2024 6:15 AM [facility] Benzodiazepine Screen Urine Negative Negative : < 200 ng/mL 03/14/2024 6:15 AM [facility] Opiates Urine Negative Negative : < 300 ng/mL 03/14/2024 6:15 AM [facility] Cocaine Metabolites Urine Negative Negative : < 300 ng/mL 03/14/2024 6:15 AM [facility] Phencyclidine Screen Urine Negative Negative : < 25 ng/ml 03/14/2024 6:15 AM [facility] Cannabinoids Screen Urine Negative Negative : <50 ng/mL 03/14/2024 6:15 AM [facility] Methadone Screen Urine Negative Negative : < 300 ng/mL 03/14/2024 6:15 AM [facility] Fentanyl Screen Urine Positive(A) Negative : <1.5 ng/mL 03/14/2024 6:15 AM [facility] Comment:Positive urine fenta nyl screening results should be confirmed by another generally accepted non-immunological method such as gas chromatography or mass spectrometry. Urine URINE / Unknown Collection / Unknown 03/14/2024 5:23 AM ACCOUNT COORDINATOR 03/14/2024 5:53 AM [facility] Narrative [facility] - 03/14/2024 6:15 AM [facility] The Urine Toxicology Screening Panel does not screen for Propoxyphene, Meprobamate, Carisoprodol, Trazodone, mado-lby-afxivqn medications and/or volatiles (Acetone, Isopropanol, Methanol or Ethylene Glycol). Ethanol, Salicylate, Acetaminophen, Tricyclic Antidepressants and several therapeutic drugs may be individually assayed in serum or plasma specimen. Toxicology testing by the [facility] is an aid to medical diagnosis and treatment of patients. No documented chain of custody was maintained. Results are intended to be used for clinical purposes only. ? Luther Bridges MD LAB - URINE CHEMISTR Y ORDERABLES [facility] [address] [place] [address], [facility] [phone] * (ABNORMAL) TEG 6 GLOBAL HEMOSTASIS W/ LYSIS (03/13/2024 11:48 PM ACCOUNT COORDINATOR) Citrated Kaolin R (Reaction Time) 2.4(L) 4.6 - 9.1 min 03/14/2024 12:50 AM [facility] Comment:CK R result below no rmal range. Consistent with hypercoagulable clotting factors. Citrated Kaolin LY30 (Lysis) 0.0 0.0 - 2.6 % 03/14/2024 12:50 AM [facility] Citrated Functional Fibrinogen MA (Max Amplitude) 18.7 15.0 - 32.0 mm 03/14/2024 12:50 AM [facility] Citrated RapidTEG MA (Max Amplitude) 60.3 52.0 - 70.0 mm 03/14/2024 12:50 AM [facility] Blood BLOOD SPECIMEN / Unknown Venipuncture / Unknown 03/13/2024 11:48 PM ACCOUNT COORDINATOR 03/13/2024 11:53 PM ACCOUNT COORDINATOR Luther Bridges MD LAB - HEMATOLOGY ORD ERABLES [facility] [address] [place] [address], [facility] [phone] * (ABNORMAL) TEG 6S PLATELET MAPPING (03/13/2024 11:48 PM ACCOUNT COORDINATOR) Pathologist [facility] TEGPLM (Max Amplitude) [place] 56.0 53.0 - 68.0 mm 03/14/2024 12:50 AM [facility] TEGPLM (Max Amplitude) ACTF 5.3 2.0 - 19.0 mm 03/14/2024 12:50 AM [facility] TEGPLM (Max Amplitude) ADP 11.8(L) 45.0 - 69.0 mm 03/14/2024 12:50 AM [facility] Comment:ADP MA below normal range. Inhibition present. TEGPLM (Max Amplitude) AA 10.4(L) 51.0 - 71.0 mm 03/14/2024 12:50 AM [facility] Comment:AA MA below normal r savannah. Inhibition present. TEGPLM %Inhibition ADP 87.2(H) 0.0 - 17.0 % 03/14/2024 12:50 AM ACCOUNT COORDINATOR [facility] TEGPLM %Inhibition AA 89.9(H) 0.0 - 11.0 % 03/14/2024 12:50 AM [facility] TEGPLM %Aggregation ADP 12.8(L) 83.0 - 100.0 % 03/14/2024 12:50 AM [facility] TEGPLM % Aggregation AA 10.1(L) 89.0 - 100.0 % 03/14/2024 12:50 AM ACCOUNT COORDINATOR [facility] Blood BLOOD SPECIMEN / Unknown Venipuncture / Unknown 03/13/2024 11:48 PM ACCOUNT COORDINATOR 03/13/2024 11:53 PM ACCOUNT COORDINATOR Luther Bridges MD LAB - HEMATOLOGY ORD ERABLES [facility] [address] [place] [id number], [facility] [phone] * XR Abdomen Kub Portable (03/13/2024 11:40 PM ACCOUNT COORDINATOR) Anatomical Region Laterality Modality Abdomen Digital Radiogra phy 03/14/2024 12:4 1 AM ACCOUNT COORDINATOR Narrative 03/14/2024 7:08 AM ACCOUNT COORDINATOR PROCEDURE: ??XR ABDOMEN KUB PORTABLE DATE/TIME OF EXAM: ??03/13/2024 11:41 PM Indication: W19.XXXA: Fall, initial encounter Additional History: COMPARISON: None. FINDINGS/IMPRESSION: An enteric tube is seen coursing below the diaphragm and coils in the gastric fundus with the tip projecting over the region of the fundus/GE junction. Report dictated by Jann Viera MD (optometrist president/practice owner). I, Argenis Morales MD have personally reviewed and interpreted this examination/study. > Interpreting Provider: Argenis Morales MD on 03/14/2024 7:08 AM Procedure Note Argenis Morales MD - 03/14/2024 PROCEDURE: XR ABDOMEN KUB PORTABLE DATE/TIME OF EXAM: 03/13/2024 11:41 PM Indication: W19.XXXA: Fall, initial encounter Additional History: COMPARISON: None. FINDINGS/IMPRESSION: An enteric tube is seen coursing below the diaphragm and coils in the gastric fundus with the tip projecting over the region of the fundus/GE junction. Report dictated by Jann Viera MD (optometrist president/practice owner). Argenis Guzmán MD have personally reviewed and interpreted this examination/study. > Interpreting Provider: Argenis Morales MD on 03/14/2024 7:08 AM Luther Bridges MD DIAGNOSTIC IMAGING O RDERABLES * CT CHEST ABDOMEN PELVIS W CONT - Abdomen-pelvis trauma, blunt or penetrating (03/13/2024 10:49 PM ACCOUNT COORDINATOR) Anatomical Region Laterality Modality Chest, Abdomen, Pelvis Computed Tomography 03/13/2024 10:4 4 PM ACCOUNT COORDINATOR Impressions 03/14/2024 11:02 AM ACCOUNT COORDINATOR Impression 1.An elongated area of low attenuation in the anterior-inferior aspect of the right hepatic lobe measuring 5 x 1 cm (series 4 image 50-58). This is concerning for a contusion or laceration (grade 2 liver injury), although focal fatty infiltration is possible. 2.Otherwise no evidence of acute visceral, vascular, or osseus injury identified in the chest, abdomen, or pelvis. 3.Small penetrating atherosclerotic ulcer noted in the aortic arch distal to the left subclavian artery. Multiple wall irregularities of the thoracic aorta is noted, likely secondary to atherosclerotic disease. 4.Cardiomegaly. There is reflux of contrast into the IVC and hepatic veins consistent with right heart dysfunction. 5.2 mm left upper lobe lung nodule. Recommend follow-up CT in one year. Centrilobular and paraseptal emphysematous changes are noted. 6.Colonic diverticulosis without evidence of diverticulitis. 7.Scattered bilateral breast parenchyma calcifications. Recommend correlation with prior mammogram results. Dr. Queen discussed the liver findings by telephone with Dr. Barney of the trauma ICU service with closed loop verification at 10:54 AM on 03/13/2024. Report dictated by Darvin Santos MD(optometrist president/practice owner). Yahir Guzmán MD have personally reviewed and interpreted this examination/study. > Interpreting Provider: Yahir Queen MD on 03/14/2024 11:02 AM Narrative 03/14/2024 11:02 AM ACCOUNT COORDINATOR PROCEDURE: ??CT CHEST ABDOMEN PELVIS W CONT, DATE/TIME OF EXAM: ??03/13/2024 10:50 PM, LOCATION ??[facility] INDICATION: Trauma ADDITIONAL CLINICAL INFORMATION: Ordering Provider Reason For Exam: Technologist Note: Additional: PROCEDURE: ??CT CHEST ABDOMEN PELVIS W CONT, DATE/TIME OF EXAM: 03/13/2024 10:50 PM, LOCATION ??[facility] INDICATION: Trauma COMPARISON: None. EXAMINATION: Computed tomography (CT) of the chest, abdomen, and pelvis with contrast TECHNIQUE: CT of the chest, abdomen, and pelvis was performed after the uneventful administration of 100 mL of Isovue 370 intravenous contrast according to standard protocol. Findings: Devices/lines: ET tube projects in the midthoracic trachea above the thomas. Chest: Lower neck and Axilla: Normal. Vasculature: The thoracic aorta is atherosclerotic. A small penetrating atherosclerotic ulcers noted of the aortic arch distal to the left subclavian artery (series 8, image 64). Multifocal areas of irregularity noted in the thoracic aorta is noted, likely secondary to atherosclerotic disease. Gas is noted within the right internal jugular, left brachiocephalic vein, SVC, likely sequela of intravenous injection. Lungs and Pleura: Centrilobular and paraseptal emphysematous changes. Scattered subcentimeter pulmonary cyst. Dependent subsegmental atelectatic changes are noted in the lungs. No pleural effusion. No pneumothorax. ??2 mm nodule left upper lobe (series 5 image 17). Heart and Pericardium: Cardiomegaly. There is reflux of contrast into the IVC and hepatic veins consistent with right heart dysfunction. Atherosclerotic calcifications of the coronary arteries. Mediastinum and Carol: No mediastinal mass is present. No enlarged lymph nodes are present. Abdomen/pelvis: Liver and Gall Bladder: There is a focal area of low-attenuation in the left hepatic lobe adjacent to the falciform ligament which is likely focal fatty infiltration (series 4 image 36). There is an additional elongated area of low attenuation in measuring approximately 5 cm in length and 1 cm in diameter in the anterior-inferior aspect of the right hepatic lobe (series 4 image 47-57). Differential includes a contusion or laceration, focal fatty infiltration, or less likely a lesion such as hemangioma (although the elongated shape is atypical). There is a minimal adjacent fat stranding (series 4 image 53). The gallbladder surgically absent. The common bile duct is prominent in size measuring up to 1.0 cm and there is mild central intrahepatic biliary dilatation, likely secondary to post cholecystectomy state. Spleen: Normal in size. Several small low-attenuation foci may represent cysts, hemangiomas, or infarcts. Pancreas: Normal. Kidneys and Adrenals: The adrenals are normal. Numerous hypoattenuating parenchymal/peripelvic renal cysts are present. Renal cortical thinning/scarring is present bilaterally. Gastrointestinal: The stomach appears normal. The small bowel and colon appear normal without wall thickening or obstruction. Colonic diverticulosis without evidence of diverticulitis. Mesentery/Peritoneum/Retroperitoneum: No free intraperitoneal air or fluid. ?? Scattered subcentimeter retroperitoneal/periaortic lymph nodes are present. For example, a 0.6 cm short axis periaortic lymph nodes is noted on series 4, image 44). Pelvic Structures: The bladder is distended. The uterus is absent. 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 Extensive atherosclerotic disease of the abdominal aorta and its branches. 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 Bones and Soft tissues: Bone windows demonstrate no suspicious lytic or blastic lesions. Multiple chronic appearing left-sided rib deformities are present.. Degenerative changes are seen in the spine. Mild retrolisthesis of L1 on L2 and anterolisthesis of L4-L5. Fat-containing umbilical hernia is present. Scattered bilateral breast parenchymal calcifications are present. Procedure Note Yahir Queen MD - 03/14/2024 PROCEDURE: CT CHEST ABDOMEN PELVIS W CONT, DATE/TIME OF EXAM:03/13/2024 10:50 PM, LOCATION [facility] INDICATION: Trauma ADDITIONAL CLINICAL INFORMATION: Ordering Provider Reason For Exam: Technologist Note: Additional: PROCEDURE: CT CHEST ABDOMEN PELVIS W CONT, DATE/TIME OF EXAM: 03/13/2024 10:50 PM, LOCATION [facility] INDICATION: Trauma COMPARISON: None. EXAMINATION: Computed tomography (CT) of the chest, abdomen, and pelvis with contrast TECHNIQUE: CT of the chest, abdomen, and pelvis was performed after the uneventful administration of 100 mL of Isovue 370 intravenous contrast according to standard protocol. Findings: Devices/lines: ET tube projects in the midthoracic trachea above the thomas. Chest: Lower neck and Axilla: Normal. Vasculature: The thoracic aorta is atherosclerotic. A small penetratingatherosclerotic ulcers noted of the aortic arch distal to the left subclavian artery (series 8, image 64). Multifocal areas of irregularity noted in the thoracic aorta is noted, likely secondary to atherosclerotic disease.Gas is noted within the right internal jugular, left brachiocephalic vein,SVC, likely sequela of intravenous injection. Lungs and Pleura: Centrilobular and paraseptal emphysematous changes. Scatteredsubcentimeter pulmonary cyst. Dependent subsegmental atelectatic changes are noted inthe lungs. No pleural effusion. No pneumothorax. 2 mm nodule left upperlobe (series 5 image 17). Heart and Pericardium: Cardiomegaly. There is reflux of contrast into the IVC and hepatic veins consistent with right heart dysfunction. Atherosclerotic calcificationsof the coronary arteries. Mediastinum and Carol: No mediastinal mass is present. No enlarged lymph nodes are present. Abdomen/pelvis: Liver and Gall Bladder: There is a focal area of low-attenuation in the left hepatic lobeadjacent to the falciform ligament which is likely focal fatty infiltration(series 4 image 36). There is an additional elongated area of low attenuation in measuring approximately 5 cm in length and 1 cm in diameter in the anterior-inferior aspect of the right hepatic lobe (series 4 [id number]). Differential includes a contusion or laceration, focal fattyinfiltration, or less likely a lesion such as hemangioma (although the elongated shapeis atypical). There is a minimal adjacent fat stranding (series 4 image53). The gallbladder surgically absent. The common bile duct is prominent in size measuring up to 1.0 cm and there is mild central intrahepaticbiliary dilatation, likely secondary to post cholecystectomy state. Spleen: Normal in size. Several small low-attenuation foci may represent cysts, hemangiomas, or infarcts. Pancreas: Normal. Kidneys and Adrenals: The adrenals are normal. Numerous hypoattenuating parenchymal/peripelvic renal cysts are present. Renal cortical thinning/scarring is present bilaterally. Gastrointestinal: The stomach appears normal. The small bowel and colon appear normalwithout wall thickening or obstruction. Colonic diverticulosis without evidenceof diverticulitis. Mesentery/Peritoneum/Retroperitoneum: No free intraperitoneal air or fluid. Scattered subcentimeter retroperitoneal/periaortic lymph nodes are present. For example, a 0.6cm short axis periaortic lymph nodes is noted on series 4, image 44). Pelvic Structures: The bladder is distended. The uterus is absent. Vasculature: There is aneurysmal dilatation of the infrarenal abdominal aortameasuring 2.7 x 2.5 cm (series 4, image 65). Extensive atherosclerotic disease ofthe abdominal aorta and its branches. There is marked stenosis of the originof the celiac artery and SMA secondary to atherosclerotic plaque. Bones and Soft tissues: Bone windows demonstrate no suspicious lytic or blastic lesions.Multiple chronic appearing left-sided rib deformities are present.. Degenerative changes are seen in the spine. Mild retrolisthesis of L1 on L2 and anterolisthesis of L4-L5. Fat-containing umbilical hernia is present. Scattered bilateral breast parenchymal calcifications are present. Impression 1.An elongated area of low attenuation in the anterior-inferior aspectof the right hepatic lobe measuring 5 x 1 cm (series 4 image 50-58). Thisis concerning for a contusion or laceration (grade 2 liver injury),although focal fatty infiltration is possible. 2.Otherwise no evidence of acute visceral, vascular, or osseus injury identified in the chest, abdomen, or pelvis. 3.Small penetrating atherosclerotic ulcer noted in the aortic archdistal to the left subclavian artery. Multiple wall irregularities of thethoracic aorta is noted, likely secondary to atherosclerotic disease. 4.Cardiomegaly. There is reflux of contrast into the IVC and hepaticveins consistent with right heart dysfunction. 5.2 mm left upper lobe lung nodule. Recommend follow-up CT in one year. Centrilobular and paraseptal emphysematous changes are noted. 6.Colonic diverticulosis without evidence of diverticulitis. 7.Scattered bilateral breast parenchyma calcifications. Recommend correlation with prior mammogram results. Dr. Queen discussed the liver findings by telephone with of the trauma ICU service with closed loop verification at 10:54 AM on 03/13/2024. Report dictated by Darvin Santos MD(optometrist president/practice owner). I, Yahir Queen MD have personally reviewed and interpreted this examination/study. > Interpreting Provider: Yahir Queen MD on 03/14/2024 11:02 AM Luther Bridges MD CT ORDERABLES * CT LUMBAR SPINE WO CONTRAST - T/L-spine trauma, Spine fracture (03/13/2024 10:49 PM ACCOUNT COORDINATOR) Anatomical Region Laterality Modality Spine Computed Tomogra phy 03/13/2024 11:1 6 PM ACCOUNT COORDINATOR Impressions 03/14/2024 6:31 AM ACCOUNT COORDINATOR IMPRESSION: 1.Sequelae of TBI was multilevel compartmental intracranial hemorrhages, including an acute subdural hematoma up to 7 mm in maximum thickness layering along the left tentorial leaflet, as well as well multiple foci of subarachnoid hemorrhages most prominent in the bilateral sylvian fissures and in the basal cisterns. 2.No significant mass effect or midline shift. 3.Right frontoparietal scalp laceration, no underlying calvarial fracture. 4.No acute facial bone fractures identified. 5.No evidence of acute fracture in the cervical, thoracic, or lumbar spine. 6.Up to severe degenerative change throughout the spine as detailed in the findings section. 7.The separately dictated same day CT chest, abdomen and pelvis contain additional intrathoracic and intra-abdominal findings. Report dictated by Jann Viera MD (optometrist president/practice owner). Critical findings were discussed in detail with the patient's care provider, Dr. Samson by Dr. Viera via telephone at 11:34 PM on 03/13/2024 with readback comprehension and verification. I, Gabe Page MD have personally reviewed and interpreted this examination/study. > Interpreting Provider: Gabe Page MD on 03/14/2024 6:31 AM Narrative 03/14/2024 6:31 AM ACCOUNT COORDINATOR PROCEDURE: ??CT HEAD WO CONTRAST, CT FACIAL BONES WO CONTRAST, CT LUMBAR SPINE WO CONTRAST, CT THORACIC SPINE WO CONTRAST, CT CERVICAL SPINE WO CONTRAST, DATE/TIME OF EXAM: ??03/13/2024 10:50 PM, LOCATION ??[facility] INDICATION: Trauma EXAMINATION: 1. Computed tomography (CT) of the head without contrast 2. CT of the maxillofacial bones, orbits, and paranasal sinuses without contrast 3. CT of the cervical spine without contrast 4. CT of the thoracic spine without contrast 5. CT of the lumbar spine without contrast TECHNIQUE: CT of the head, cervical spine, and maxillofacial bones, orbits, and paranasal sinuses was performed without contrast according to standard protocol. Reformatted axial, sagittal, and coronal images of the thoracic and lumbar spine were obtained by the technologist from a concurrently performed body CT and sent to the workstation for review. CT dose reduction technique was used, including Automated Exposure Control. COMPARISON: No prior study is available for comparison at the time of this dictation. FINDINGS: Head: There are sequelae of traumatic brain injury, with multi-compartmental intracranial hemorrhages as well as: *Acute subdural hematoma layering along the left tentorial leaflet up to 7 mm in maximum thickness (series 5 image 50). *There are small-moderate volume subarachnoid blood products in the bilateral sylvian fissures (series 3 image 22). *There are small volume subarachnoid blood products within the basal cisterns bilaterally. *Subtle hemorrhagic contusions along the anterior right temporal lobe cannot be excluded. There is mild cerebral volume loss with associated ex vacuo ventricular dilatation. No significant mass effect or midline shift is seen. Old lacunar infarct in the right caudate head. The gutierrez-white matter differentiation otherwise appears normal. Periventricular white matter hypoattenuation is indicative of chronic small vessel ischemic disease. There is vascular calcification of the carotid siphons. No acute calvarial fracture is identified. There is right frontoparietal scalp laceration and hematoma, along with tissue loss. Trace soft tissue gas is seen in this region. No underlying calvarial fracture. Also, contusion and swelling of the left parietal scalp and mildly of the left frontal scalp and superior periorbital area. Brain injury guidelines: Skull fracture: No Subdural hematoma: 5-7mm. Epidural hematoma: No epidural hematoma. Intraparenchymal hemorrhage: No intraparenchymal hemorrhage. Subarachnoid hemorrhage: Scattered-bihemispheric. Intraventricular hemorrhage: No. Midline shift: No. Maxillofacial: Other than bilateral cataract extractions,, and some mild scleral plaques, the orbits appear normal. There is mild paranasal sinus disease. There are degenerative changes of the temporomandibular joints, worse on the left the patient is edentulous. Cerumen is present in the external canals, left more than right The hard palate, mandible, and temporomandibular joints appear normal. Chronic left deviation of the nasal bones. The nasal septum is deviated to the right with a septal spur deforming the right inferior turbinate. Mild hypertrophy of the inferior turbinates, right more than left. There is a tiny bone fragment adjacent to anterior nasal spine which could represent an age-indeterminate fracture. Otherwise, no acute facial bone fractures are identified. The mastoid air cells are grossly clear. Suspected mild right periorbital soft tissue swelling. No additional soft tissue abnormality is identified. Cervical spine: There is gentle cervical kyphosis. Mild levocurvature of the cervical spine. There is a stepwise grade 1 anterolisthesis of C2 on C3, C3 on C4 and C4 on C5. Minimal anterolisthesis of C7 on T1. Vertebral bodies are normal in height without evidence of acute fracture. Mild osteopenia. Other than advanced middle atlantoaxial joint osteoarthritis, the craniocervical junction appears normal. There is advanced degenerative disc disease most significant at C4-5 and C6-C7. There is multilevel central canal stenosis, most significant at C4-5 with left eccentric moderate-severe stenosis due to prominent disc herniation, (series 8, image 92). Suspected severe spinal canal stenosis is also noted at C6-C7 due to diffuse disc osteophyte complex and hypertrophy of the ligamentum flavum. Moderate spinal canal stenosis noted at C3-C4, and C5-C6. There are varying degrees of advanced facet osteoarthritis. There are varying degrees of advanced uncovertebral joint osteoarthritis with the same degree of neural foraminal stenosis at these levels most severe at C3-C4 and C6-C7. There is centrilobular emphysema in the lung apices. There is atherosclerotic calcification of the carotid bifurcations. Thoracic spine: Exaggerated thoracic kyphosis. Mild dextrocurvature of the thoracic spine. Vertebral bodies are grossly normal in height without evidence of acute fracture. Schmorl's nodes are present at multiple levels. Mild osteopenia. No significant central canal stenosis is seen. There are varying degrees of mild facet osteoarthritis. ??There are varying degrees of neural foraminal stenosis at multiple levels. There is advanced atherosclerotic calcification of the thoracic aorta and its branch vessels. There is diffuse interlobular septal thickening which may represent interstitial edema. Partially visualized reflux of contrast into the IVC and hepatic veins which may relate to reduced cardiac function. An endotracheal tube terminates in the distal thoracic trachea. There are atherosclerotic calcifications of the coronary arteries. Few calcified mediastinal lymph nodes. Lumbar spine: Grade 1 degenerative retrolisthesis of L1 on L2. Minimal interstitial L4 on L5.. Trace levocurvature of the lumbar spine. Moderate osteopenia. Vertebral bodies are normal in height without evidence of acute fracture. There is advanced degenerative disc disease. There is central canal stenosis of varying degrees, most severe at the level of L4-5 and L2-L3, with moderate spinal canal stenosis at L1-L2 and L3-L4. There are varying degrees of up to severe facet osteoarthritis. There are varying degrees of neural foraminal stenosis at multiple levels most significant at the level of L1-2. ??Colonic diverticulosis is partially imaged. Extensive atherosclerotic calcification of the abdominal aorta and its branch vessels. There are degenerative changes of the SI joints. Multiple simple renal cysts bilaterally. Procedure Note Gabe Page MD - 03/14/2024 PROCEDURE: CT HEAD WO CONTRAST, CT FACIAL BONES WO CONTRAST, CT LUMBAR SPINE WO CONTRAST, CT THORACIC SPINE WO CONTRAST, CT CERVICAL SPINE WO CONTRAST, DATE/TIME OF EXAM: 03/13/2024 10:50 PM, LOCATION [facility] INDICATION: Trauma EXAMINATION: 1. Computed tomography (CT) of the head without contrast 2. CT of the maxillofacial bones, orbits, and paranasal sinuses without contrast 3. CT of the cervical spine without contrast 4. CT of the thoracic spine without contrast 5. CT of the lumbar spine without contrast TECHNIQUE: CT of the head, cervical spine, and maxillofacial bones,orbits, and paranasal sinuses was performed without contrast according tostandard protocol. Reformatted axial, sagittal, and coronal images of thethoracic and lumbar spine were obtained by the technologist from a concurrently performed body CT and sent to the workstation for review. CT dosereduction technique was used, including Automated Exposure Control. COMPARISON: No prior study is available for comparison at the time ofthis dictation. 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 *There are small-moderate volume subarachnoid blood products in the bilateral sylvian fissures (series 3 image 22). *There are small volume subarachnoid blood products within the basal cisterns bilaterally. *Subtle hemorrhagic contusions along the anterior right temporal lobe cannot be excluded. There is mild cerebral volume loss with associated ex vacuo ventricular dilatation. No significant mass effect or midline shift is seen. Old lacunar infarct in the right caudate head. The gutierrez-white matter differentiation otherwise appears normal. Periventricular white matter hypoattenuation is indicative of chronic small vessel ischemic disease. There is vascular calcification of the carotid siphons. No acutecalvarial fracture is identified. There is right frontoparietal scalp lacerationand hematoma, along with tissue loss. Trace soft tissue gas is seen in this region. No underlying calvarial fracture. Also, contusion and swellingof the left parietal scalp and mildly of the left frontal scalp andsuperior periorbital area. Brain injury guidelines: Skull fracture: No Subdural hematoma: 5-7mm. Epidural hematoma: No epidural hematoma. Intraparenchymal hemorrhage: No intraparenchymal hemorrhage. Subarachnoid hemorrhage: Scattered-bihemispheric. Intraventricular hemorrhage: No. Midline shift: No. Maxillofacial: Other than bilateral cataract extractions,, and some mild scleralplaques, the orbits appear normal. There is mild paranasal sinus disease. Thereare degenerative changes of the temporomandibular joints, worse on the leftthe patient is edentulous. Cerumen is present in the external canals, leftmore than right The hard palate, mandible, and temporomandibular jointsappear normal. Chronic left deviation of the nasal bones. The nasal septum is deviated to the right with a septal spur deforming the right inferior turbinate. Mild hypertrophy of the inferior turbinates, right more than left. There is a tiny bone fragment adjacent to anterior nasal spinewhich could represent an age-indeterminate fracture. Otherwise, no acutefacial bone fractures are identified. The mastoid air cells are grossly clear. Suspected mild right periorbital soft tissue swelling. No additionalsoft tissue abnormality is identified. Cervical spine: There is gentle cervical kyphosis. Mild levocurvature of the cervical spine. There is a stepwise grade 1 anterolisthesis of C2 on C3, C3 on C4 and C4 on C5. Minimal anterolisthesis of C7 on T1. Vertebral bodies are normal in height without evidence of acute fracture. Mild osteopenia.Other than advanced middle atlantoaxial joint osteoarthritis, thecraniocervical junction appears normal. There is advanced degenerative disc diseasemost significant at C4-5 and C6-C7. There is multilevel central canalstenosis, most significant at C4-5 with left eccentric moderate-severe stenosisdue to prominent disc herniation, (series 8, image 92). Suspected severespinal canal stenosis is also noted at C6-C7 due to diffuse disc osteophyte complex and hypertrophy of the ligamentum flavum. Moderate spinal canal stenosis noted at C3-C4, and C5-C6. There are varying degrees ofadvanced facet osteoarthritis. There are varying degrees of advanceduncovertebral joint osteoarthritis with the same degree of neural foraminal stenosisat these levels most severe at C3-C4 and C6-C7. There is centrilobular emphysema in the lung apices. There is atherosclerotic calcification ofthe carotid bifurcations. Thoracic spine: Exaggerated thoracic kyphosis. Mild dextrocurvature of the thoracicspine. Vertebral bodies are grossly normal in height without evidence of acute fracture. Schmorl's nodes are present at multiple levels. Mildosteopenia. No significant central canal stenosis is seen. There are varying degreesof mild facet osteoarthritis. There are varying degrees of neuralforaminal stenosis at multiple levels. There is advanced atherosclerotic calcification of the thoracic aorta and its branch vessels. There is diffuse interlobular septal thickening which may represent interstitial edema. Partially visualized reflux of contrast into the IVC and hepatic veins which may relate to reduced cardiac function. An endotracheal tube terminates in the distal thoracic trachea. There are atherosclerotic calcifications of the coronary arteries. Few calcified mediastinal lymph nodes. Lumbar spine: Grade 1 degenerative retrolisthesis of L1 on L2. Minimal interstitial L4on L5.. Trace levocurvature of the lumbar spine. Moderate osteopenia. Vertebral bodies are normal in height without evidence of acutefracture. There is advanced degenerative disc disease. There is central canal stenosis of varying degrees, most severe at the level of L4-5 and L2-L3, with moderate spinal canal stenosis at L1-L2 and L3-L4. There arevarying degrees of up to severe facet osteoarthritis. There are varying degreesof neural foraminal stenosis at multiple levels most significant at thelevel of L1-2. Colonic diverticulosis is partially imaged. Extensive atherosclerotic calcification of the abdominal aorta and its branch vessels. There are degenerative changes of the SI joints. Multiplesimple renal cysts bilaterally. 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 2.No significant mass effect or midline shift. 3.Right frontoparietal scalp laceration, no underlying calvarialfracture. 4.No acute facial bone fractures identified. 5.No evidence of acute fracture in the cervical, thoracic, or lumbarspine. 6.Up to severe degenerative change throughout the spine as detailed inthe findings section. 7.The separately dictated same day CT chest, abdomen and pelvis contain additional intrathoracic and intra-abdominal findings. Report dictated by Jann Viera MD (optometrist president/practice owner). Critical findings were discussed in detail with the patient's care provider, Dr. Samson by Dr. Viera via telephone at 11:34 PM on 03/13/2024with readback comprehension and verification. I, Gabe Page MD have personally reviewed and interpretedthis examination/study. > Interpreting Provider: Gabe Page MD on 03/14/2024 6:31 AM Luther Bridges MD CT ORDERABLES * CT THORACIC SPINE WO CONTRAST - T/L-spine trauma, spine fracture (03/13/2024 10:49 PM ACCOUNT COORDINATOR) Anatomical Region Laterality Modality Spine Computed Tomogra phy 03/13/2024 11:1 6 PM ACCOUNT COORDINATOR Impressions 03/14/2024 6:31 AM ACCOUNT COORDINATOR IMPRESSION: 1.Sequelae of TBI was multilevel compartmental intracranial hemorrhages, including an acute subdural hematoma up to 7 mm in maximum thickness layering along the left tentorial leaflet, as well as well multiple foci of subarachnoid hemorrhages most prominent in the bilateral sylvian fissures and in the basal cisterns. 2.No significant mass effect or midline shift. 3.Right frontoparietal scalp laceration, no underlying calvarial fracture. 4.No acute facial bone fractures identified. 5.No evidence of acute fracture in the cervical, thoracic, or lumbar spine. 6.Up to severe degenerative change throughout the spine as detailed in the findings section. 7.The separately dictated same day CT chest, abdomen and pelvis contain additional intrathoracic and intra-abdominal findings. Report dictated by Jann Viera MD (optometrist president/practice owner). Critical findings were discussed in detail with the patient's care provider, Dr. Samson by Dr. Viera via telephone at 11:34 PM on 03/13/2024 with readback comprehension and verification. IGabe MD have personally reviewed and interpreted this examination/study. > Interpreting Provider: Gabe Page MD on 03/14/2024 6:31 AM Narrative 03/14/2024 6:31 AM ACCOUNT COORDINATOR PROCEDURE: ??CT HEAD WO CONTRAST, CT FACIAL BONES WO CONTRAST, CT LUMBAR SPINE WO CONTRAST, CT THORACIC SPINE WO CONTRAST, CT CERVICAL SPINE WO CONTRAST, DATE/TIME OF EXAM: ??03/13/2024 10:50 PM, LOCATION ??[facility] INDICATION: Trauma EXAMINATION: 1. Computed tomography (CT) of the head without contrast 2. CT of the maxillofacial bones, orbits, and paranasal sinuses without contrast 3. CT of the cervical spine without contrast 4. CT of the thoracic spine without contrast 5. CT of the lumbar spine without contrast TECHNIQUE: CT of the head, cervical spine, and maxillofacial bones, orbits, and paranasal sinuses was performed without contrast according to standard protocol. Reformatted axial, sagittal, and coronal images of the thoracic and lumbar spine were obtained by the technologist from a concurrently performed body CT and sent to the workstation for review. CT dose reduction technique was used, including Automated Exposure Control. COMPARISON: No prior study is available for comparison at the time of this dictation. FINDINGS: Head: There are sequelae of traumatic brain injury, with multi-compartmental intracranial hemorrhages as well as: *Acute subdural hematoma layering along the left tentorial leaflet up to 7 mm in maximum thickness (series 5 image 50). *There are small-moderate volume subarachnoid blood products in the bilateral sylvian fissures (series 3 image 22). *There are small volume subarachnoid blood products within the basal cisterns bilaterally. *Subtle hemorrhagic contusions along the anterior right temporal lobe cannot be excluded. There is mild cerebral volume loss with associated ex vacuo ventricular dilatation. No significant mass effect or midline shift is seen. Old lacunar infarct in the right caudate head. The gutierrez-white matter differentiation otherwise appears normal. Periventricular white matter hypoattenuation is indicative of chronic small vessel ischemic disease. There is vascular calcification of the carotid siphons. No acute calvarial fracture is identified. There is right frontoparietal scalp laceration and hematoma, along with tissue loss. Trace soft tissue gas is seen in this region. No underlying calvarial fracture. Also, contusion and swelling of the left parietal scalp and mildly of the left frontal scalp and superior periorbital area. Brain injury guidelines: Skull fracture: No Subdural hematoma: 5-7mm. Epidural hematoma: No epidural hematoma. Intraparenchymal hemorrhage: No intraparenchymal hemorrhage. Subarachnoid hemorrhage: Scattered-bihemispheric. Intraventricular hemorrhage: No. Midline shift: No. Maxillofacial: Other than bilateral cataract extractions,, and some mild scleral plaques, the orbits appear normal. There is mild paranasal sinus disease. There are degenerative changes of the temporomandibular joints, worse on the left the patient is edentulous. Cerumen is present in the external canals, left more than right The hard palate, mandible, and temporomandibular joints appear normal. Chronic left deviation of the nasal bones. The nasal septum is deviated to the right with a septal spur deforming the right inferior turbinate. Mild hypertrophy of the inferior turbinates, right more than left. There is a tiny bone fragment adjacent to anterior nasal spine which could represent an age-indeterminate fracture. Otherwise, no acute facial bone fractures are identified. The mastoid air cells are grossly clear. Suspected mild right periorbital soft tissue swelling. No additional soft tissue abnormality is identified. Cervical spine: There is gentle cervical kyphosis. Mild levocurvature of the cervical spine. There is a stepwise grade 1 anterolisthesis of C2 on C3, C3 on C4 and C4 on C5. Minimal anterolisthesis of C7 on T1. Vertebral bodies are normal in height without evidence of acute fracture. Mild osteopenia. Other than advanced middle atlantoaxial joint osteoarthritis, the craniocervical junction appears normal. There is advanced degenerative disc disease most significant at C4-5 and C6-C7. There is multilevel central canal stenosis, most significant at C4-5 with left eccentric moderate-severe stenosis due to prominent disc herniation, (series 8, image 92). Suspected severe spinal canal stenosis is also noted at C6-C7 due to diffuse disc osteophyte complex and hypertrophy of the ligamentum flavum. Moderate spinal canal stenosis noted at C3-C4, and C5-C6. There are varying degrees of advanced facet osteoarthritis. There are varying degrees of advanced uncovertebral joint osteoarthritis with the same degree of neural foraminal stenosis at these levels most severe at C3-C4 and C6-C7. There is centrilobular emphysema in the lung apices. There is atherosclerotic calcification of the carotid bifurcations. Thoracic spine: Exaggerated thoracic kyphosis. Mild dextrocurvature of the thoracic spine. Vertebral bodies are grossly normal in height without evidence of acute fracture. Schmorl's nodes are present at multiple levels. Mild osteopenia. No significant central canal stenosis is seen. There are varying degrees of mild facet osteoarthritis. ??There are varying degrees of neural foraminal stenosis at multiple levels. There is advanced atherosclerotic calcification of the thoracic aorta and its branch vessels. There is diffuse interlobular septal thickening which may represent interstitial edema. Partially visualized reflux of contrast into the IVC and hepatic veins which may relate to reduced cardiac function. An endotracheal tube terminates in the distal thoracic trachea. There are atherosclerotic calcifications of the coronary arteries. Few calcified mediastinal lymph nodes. Lumbar spine: Grade 1 degenerative retrolisthesis of L1 on L2. Minimal interstitial L4 on L5.. Trace levocurvature of the lumbar spine. Moderate osteopenia. Vertebral bodies are normal in height without evidence of acute fracture. There is advanced degenerative disc disease. There is central canal stenosis of varying degrees, most severe at the level of L4-5 and L2-L3, with moderate spinal canal stenosis at L1-L2 and L3-L4. There are varying degrees of up to severe facet osteoarthritis. There are varying degrees of neural foraminal stenosis at multiple levels most significant at the level of L1-2. ??Colonic diverticulosis is partially imaged. Extensive atherosclerotic calcification of the abdominal aorta and its branch vessels. There are degenerative changes of the SI joints. Multiple simple renal cysts bilaterally. Procedure Note Gabe Page MD - 03/14/2024 PROCEDURE: CT HEAD WO CONTRAST, CT FACIAL BONES WO CONTRAST, CT LUMBAR SPINE WO CONTRAST, CT THORACIC SPINE WO CONTRAST, CT CERVICAL SPINE WO CONTRAST, DATE/TIME OF EXAM: 03/13/2024 10:50 PM, LOCATION [facility] INDICATION: Trauma EXAMINATION: 1. Computed tomography (CT) of the head without contrast 2. CT of the maxillofacial bones, orbits, and paranasal sinuses without contrast 3. CT of the cervical spine without contrast 4. CT of the thoracic spine without contrast 5. CT of the lumbar spine without contrast TECHNIQUE: CT of the head, cervical spine, and maxillofacial bones,orbits, and paranasal sinuses was performed without contrast according tostandard protocol. Reformatted axial, sagittal, and coronal images of thethoracic and lumbar spine were obtained by the technologist from a concurrently performed body CT and sent to the workstation for review. CT dosereduction technique was used, including Automated Exposure Control. COMPARISON: No prior study is available for comparison at the time ofthis dictation. 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 *There are small-moderate volume subarachnoid blood products in the bilateral sylvian fissures (series 3 image 22). *There are small volume subarachnoid blood products within the basal cisterns bilaterally. *Subtle hemorrhagic contusions along the anterior right temporal lobe cannot be excluded. There is mild cerebral volume loss with associated ex vacuo ventricular dilatation. No significant mass effect or midline shift is seen. Old lacunar infarct in the right caudate head. The gutierrez-white matter differentiation otherwise appears normal. Periventricular white matter hypoattenuation is indicative of chronic small vessel ischemic disease. There is vascular calcification of the carotid siphons. No acutecalvarial fracture is identified. There is right frontoparietal scalp lacerationand hematoma, along with tissue loss. Trace soft tissue gas is seen in this region. No underlying calvarial fracture. Also, contusion and swellingof the left parietal scalp and mildly of the left frontal scalp andsuperior periorbital area. Brain injury guidelines: Skull fracture: No Subdural hematoma: 5-7mm. Epidural hematoma: No epidural hematoma. Intraparenchymal hemorrhage: No intraparenchymal hemorrhage. Subarachnoid hemorrhage: Scattered-bihemispheric. Intraventricular hemorrhage: No. Midline shift: No. Maxillofacial: Other than bilateral cataract extractions,, and some mild scleralplaques, the orbits appear normal. There is mild paranasal sinus disease. Thereare degenerative changes of the temporomandibular joints, worse on the leftthe patient is edentulous. Cerumen is present in the external canals, leftmore than right The hard palate, mandible, and temporomandibular jointsappear normal. Chronic left deviation of the nasal bones. The nasal septum is deviated to the right with a septal spur deforming the right inferior turbinate. Mild hypertrophy of the inferior turbinates, right more than left. There is a tiny bone fragment adjacent to anterior nasal spinewhich could represent an age-indeterminate fracture. Otherwise, no acutefacial bone fractures are identified. The mastoid air cells are grossly clear. Suspected mild right periorbital soft tissue swelling. No additionalsoft tissue abnormality is identified. Cervical spine: There is gentle cervical kyphosis. Mild levocurvature of the cervical spine. There is a stepwise grade 1 anterolisthesis of C2 on C3, C3 on C4 and C4 on C5. Minimal anterolisthesis of C7 on T1. Vertebral bodies are normal in height without evidence of acute fracture. Mild osteopenia.Other than advanced middle atlantoaxial joint osteoarthritis, thecraniocervical junction appears normal. There is advanced degenerative disc diseasemost significant at C4-5 and C6-C7. There is multilevel central canalstenosis, most significant at C4-5 with left eccentric moderate-severe stenosisdue to prominent disc herniation, (series 8, image 92). Suspected severespinal canal stenosis is also noted at C6-C7 due to diffuse disc osteophyte complex and hypertrophy of the ligamentum flavum. Moderate spinal canal stenosis noted at C3-C4, and C5-C6. There are varying degrees ofadvanced facet osteoarthritis. There are varying degrees of advanceduncovertebral joint osteoarthritis with the same degree of neural foraminal stenosisat these levels most severe at C3-C4 and C6-C7. There is centrilobular emphysema in the lung apices. There is atherosclerotic calcification ofthe carotid bifurcations. Thoracic spine: Exaggerated thoracic kyphosis. Mild dextrocurvature of the thoracicspine. Vertebral bodies are grossly normal in height without evidence of acute fracture. Schmorl's nodes are present at multiple levels. Mildosteopenia. No significant central canal stenosis is seen. There are varying degreesof mild facet osteoarthritis. There are varying degrees of neuralforaminal stenosis at multiple levels. There is advanced atherosclerotic calcification of the thoracic aorta and its branch vessels. There is diffuse interlobular septal thickening which may represent interstitial edema. Partially visualized reflux of contrast into the IVC and hepatic veins which may relate to reduced cardiac function. An endotracheal tube terminates in the distal thoracic trachea. There are atherosclerotic calcifications of the coronary arteries. Few calcified mediastinal lymph nodes. Lumbar spine: Grade 1 degenerative retrolisthesis of L1 on L2. Minimal interstitial L4on L5.. Trace levocurvature of the lumbar spine. Moderate osteopenia. Vertebral bodies are normal in height without evidence of acutefracture. There is advanced degenerative disc disease. There is central canal stenosis of varying degrees, most severe at the level of L4-5 and L2-L3, with moderate spinal canal stenosis at L1-L2 and L3-L4. There arevarying degrees of up to severe facet osteoarthritis. There are varying degreesof neural foraminal stenosis at multiple levels most significant at thelevel of L1-2. Colonic diverticulosis is partially imaged. Extensive atherosclerotic calcification of the abdominal aorta and its branch vessels. There are degenerative changes of the SI joints. Multiplesimple renal cysts bilaterally. 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 2.No significant mass effect or midline shift. 3.Right frontoparietal scalp laceration, no underlying calvarialfracture. 4.No acute facial bone fractures identified. 5.No evidence of acute fracture in the cervical, thoracic, or lumbarspine. 6.Up to severe degenerative change throughout the spine as detailed inthe findings section. 7.The separately dictated same day CT chest, abdomen and pelvis contain additional intrathoracic and intra-abdominal findings. Report dictated by Jann Viera MD (optometrist president/practice owner). Critical findings were discussed in detail with the patient's care provider, Dr. Samson by Dr. Viera via telephone at 11:34 PM on 03/13/2024with readback comprehension and verification. I, Gabe Page MD have personally reviewed and interpretedthis examination/study. 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 2.No significant mass effect or midline shift. 3.Right frontoparietal scalp laceration, no underlying calvarial fracture. 4.No acute facial bone fractures identified. 5.No evidence of acute fracture in the cervical, thoracic, or lumbar spine. 6.Up to severe degenerative change throughout the spine as detailed in the findings section. 7.The separately dictated same day CT chest, abdomen and pelvis contain additional intrathoracic and intra-abdominal findings. Report dictated by Jann Viera MD (optometrist president/practice owner). Critical findings were discussed in detail with the patient's care provider, Dr. Samson by Dr. Viera via telephone at 11:34 PM on 03/13/2024 with readback comprehension and verification. I, Gabe Page MD have personally reviewed and interpreted this examination/study. > Interpreting Provider: Gabe Page MD on 03/14/2024 6:31 AM Narrative 03/14/2024 6:31 AM ACCOUNT COORDINATOR PROCEDURE: ??CT HEAD WO CONTRAST, CT FACIAL BONES WO CONTRAST, CT LUMBAR SPINE WO CONTRAST, CT THORACIC SPINE WO CONTRAST, CT CERVICAL SPINE WO CONTRAST, DATE/TIME OF EXAM: ??03/13/2024 10:50 PM, LOCATION ??[facility] INDICATION: Trauma EXAMINATION: 1. Computed tomography (CT) of the head without contrast 2. CT of the maxillofacial bones, orbits, and paranasal sinuses without contrast 3. CT of the cervical spine without contrast 4. CT of the thoracic spine without contrast 5. CT of the lumbar spine without contrast TECHNIQUE: CT of the head, cervical spine, and maxillofacial bones, orbits, and paranasal sinuses was performed without contrast according to standard protocol. Reformatted axial, sagittal, and coronal images of the thoracic and lumbar spine were obtained by the technologist from a concurrently performed body CT and sent to the workstation for review. CT dose reduction technique was used, including Automated Exposure Control. COMPARISON: No prior study is available for comparison at the time of this dictation. FINDINGS: Head: There are sequelae of traumatic brain injury, with multi-compartmental intracranial hemorrhages as well as: *Acute subdural hematoma layering along the left tentorial leaflet up to 7 mm in maximum thickness (series 5 image 50). *There are small-moderate volume subarachnoid blood products in the bilateral sylvian fissures (series 3 image 22). *There are small volume subarachnoid blood products within the basal cisterns bilaterally. *Subtle hemorrhagic contusions along the anterior right temporal lobe cannot be excluded. There is mild cerebral volume loss with associated ex vacuo ventricular dilatation. No significant mass effect or midline shift is seen. Old lacunar infarct in the right caudate head. The gutierrez-white matter differentiation otherwise appears normal. Periventricular white matter hypoattenuation is indicative of chronic small vessel ischemic disease. There is vascular calcification of the carotid siphons. No acute calvarial fracture is identified. There is right frontoparietal scalp laceration and hematoma, along with tissue loss. Trace soft tissue gas is seen in this region. No underlying calvarial fracture. Also, contusion and swelling of the left parietal scalp and mildly of the left frontal scalp and superior periorbital area. Brain injury guidelines: Skull fracture: No Subdural hematoma: 5-7mm. Epidural hematoma: No epidural hematoma. Intraparenchymal hemorrhage: No intraparenchymal hemorrhage. Subarachnoid hemorrhage: Scattered-bihemispheric. Intraventricular hemorrhage: No. Midline shift: No. Maxillofacial: Other than bilateral cataract extractions,, and some mild scleral plaques, the orbits appear normal. There is mild paranasal sinus disease. There are degenerative changes of the temporomandibular joints, worse on the left the patient is edentulous. Cerumen is present in the external canals, left more than right The hard palate, mandible, and temporomandibular joints appear normal. Chronic left deviation of the nasal bones. The nasal septum is deviated to the right with a septal spur deforming the right inferior turbinate. Mild hypertrophy of the inferior turbinates, right more than left. There is a tiny bone fragment adjacent to anterior nasal spine which could represent an age-indeterminate fracture. Otherwise, no acute facial bone fractures are identified. The mastoid air cells are grossly clear. Suspected mild right periorbital soft tissue swelling. No additional soft tissue abnormality is identified. Cervical spine: There is gentle cervical kyphosis. Mild levocurvature of the cervical spine. There is a stepwise grade 1 anterolisthesis of C2 on C3, C3 on C4 and C4 on C5. Minimal anterolisthesis of C7 on T1. Vertebral bodies are normal in height without evidence of acute fracture. Mild osteopenia. Other than advanced middle atlantoaxial joint osteoarthritis, the craniocervical junction appears normal. There is advanced degenerative disc disease most significant at C4-5 and C6-C7. There is multilevel central canal stenosis, most significant at C4-5 with left eccentric moderate-severe stenosis due to prominent disc herniation, (series 8, image 92). Suspected severe spinal canal stenosis is also noted at C6-C7 due to diffuse disc osteophyte complex and hypertrophy of the ligamentum flavum. Moderate spinal canal stenosis noted at C3-C4, and C5-C6. There are varying degrees of advanced facet osteoarthritis. There are varying degrees of advanced uncovertebral joint osteoarthritis with the same degree of neural foraminal stenosis at these levels most severe at C3-C4 and C6-C7. There is centrilobular emphysema in the lung apices. There is atherosclerotic calcification of the carotid bifurcations. Thoracic spine: Exaggerated thoracic kyphosis. Mild dextrocurvature of the thoracic spine. Vertebral bodies are grossly normal in height without evidence of acute fracture. Schmorl's nodes are present at multiple levels. Mild osteopenia. No significant central canal stenosis is seen. There are varying degrees of mild facet osteoarthritis. ??There are varying degrees of neural foraminal stenosis at multiple levels. There is advanced atherosclerotic calcification of the thoracic aorta and its branch vessels. There is diffuse interlobular septal thickening which may represent interstitial edema. Partially visualized reflux of contrast into the IVC and hepatic veins which may relate to reduced cardiac function. An endotracheal tube terminates in the distal thoracic trachea. There are atherosclerotic calcifications of the coronary arteries. Few calcified mediastinal lymph nodes. Lumbar spine: Grade 1 degenerative retrolisthesis of L1 on L2. Minimal interstitial L4 on L5.. Trace levocurvature of the lumbar spine. Moderate osteopenia. Vertebral bodies are normal in height without evidence of acute fracture. There is advanced degenerative disc disease. There is central canal stenosis of varying degrees, most severe at the level of L4-5 and L2-L3, with moderate spinal canal stenosis at L1-L2 and L3-L4. There are varying degrees of up to severe facet osteoarthritis. There are varying degrees of neural foraminal stenosis at multiple levels most significant at the level of L1-2. ??Colonic diverticulosis is partially imaged. Extensive atherosclerotic calcification of the abdominal aorta and its branch vessels. There are degenerative changes of the SI joints. Multiple simple renal cysts bilaterally. Procedure Note Gabe Page MD - 03/14/2024 PROCEDURE: CT HEAD WO CONTRAST, CT FACIAL BONES WO CONTRAST, CT LUMBAR SPINE WO CONTRAST, CT THORACIC SPINE WO CONTRAST, CT CERVICAL SPINE WO CONTRAST, DATE/TIME OF EXAM: 03/13/2024 10:50 PM, LOCATION [facility] INDICATION: Trauma EXAMINATION: 1. Computed tomography (CT) of the head without contrast 2. CT of the maxillofacial bones, orbits, and paranasal sinuses without contrast 3. CT of the cervical spine without contrast 4. CT of the thoracic spine without contrast 5. CT of the lumbar spine without contrast TECHNIQUE: CT of the head, cervical spine, and maxillofacial bones,orbits, and paranasal sinuses was performed without contrast according tostandard protocol. Reformatted axial, sagittal, and coronal images of thethoracic and lumbar spine were obtained by the technologist from a concurrently performed body CT and sent to the workstation for review. CT dosereduction technique was used, including Automated Exposure Control. COMPARISON: No prior study is available for comparison at the time ofthis dictation. 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 *There are small-moderate volume subarachnoid blood products in the bilateral sylvian fissures (series 3 image 22). *There are small volume subarachnoid blood products within the basal cisterns bilaterally. *Subtle hemorrhagic contusions along the anterior right temporal lobe cannot be excluded. There is mild cerebral volume loss with associated ex vacuo ventricular dilatation. No significant mass effect or midline shift is seen. Old lacunar infarct in the right caudate head. The gutierrez-white matter differentiation otherwise appears normal. Periventricular white matter hypoattenuation is indicative of chronic small vessel ischemic disease. There is vascular calcification of the carotid siphons. No acutecalvarial fracture is identified. There is right frontoparietal scalp lacerationand hematoma, along with tissue loss. Trace soft tissue gas is seen in this region. No underlying calvarial fracture. Also, contusion and swellingof the left parietal scalp and mildly of the left frontal scalp andsuperior periorbital area. Brain injury guidelines: Skull fracture: No Subdural hematoma: 5-7mm. Epidural hematoma: No epidural hematoma. Intraparenchymal hemorrhage: No intraparenchymal hemorrhage. Subarachnoid hemorrhage: Scattered-bihemispheric. Intraventricular hemorrhage: No. Midline shift: No. Maxillofacial: Other than bilateral cataract extractions,, and some mild scleralplaques, the orbits appear normal. There is mild paranasal sinus disease. Thereare degenerative changes of the temporomandibular joints, worse on the leftthe patient is edentulous. Cerumen is present in the external canals, leftmore than right The hard palate, mandible, and temporomandibular jointsappear normal. Chronic left deviation of the nasal bones. The nasal septum is deviated to the right with a septal spur deforming the right inferior turbinate. Mild hypertrophy of the inferior turbinates, right more than left. There is a tiny bone fragment adjacent to anterior nasal spinewhich could represent an age-indeterminate fracture. Otherwise, no acutefacial bone fractures are identified. The mastoid air cells are grossly clear. Suspected mild right periorbital soft tissue swelling. No additionalsoft tissue abnormality is identified. Cervical spine: There is gentle cervical kyphosis. Mild levocurvature of the cervical spine. There is a stepwise grade 1 anterolisthesis of C2 on C3, C3 on C4 and C4 on C5. Minimal anterolisthesis of C7 on T1. Vertebral bodies are normal in height without evidence of acute fracture. Mild osteopenia.Other than advanced middle atlantoaxial joint osteoarthritis, thecraniocervical junction appears normal. There is advanced degenerative disc diseasemost significant at C4-5 and C6-C7. There is multilevel central canalstenosis, most significant at C4-5 with left eccentric moderate-severe stenosisdue to prominent disc herniation, (series 8, image 92). Suspected severespinal canal stenosis is also noted at C6-C7 due to diffuse disc osteophyte complex and hypertrophy of the ligamentum flavum. Moderate spinal canal stenosis noted at C3-C4, and C5-C6. There are varying degrees ofadvanced facet osteoarthritis. There are varying degrees of advanceduncovertebral joint osteoarthritis with the same degree of neural foraminal stenosisat these levels most severe at C3-C4 and C6-C7. There is centrilobular emphysema in the lung apices. There is atherosclerotic calcification ofthe carotid bifurcations. Thoracic spine: Exaggerated thoracic kyphosis. Mild dextrocurvature of the thoracicspine. Vertebral bodies are grossly normal in height without evidence of acute fracture. Schmorl's nodes are present at multiple levels. Mildosteopenia. No significant central canal stenosis is seen. There are varying degreesof mild facet osteoarthritis. There are varying degrees of neuralforaminal stenosis at multiple levels. There is advanced atherosclerotic calcification of the thoracic aorta and its branch vessels. There is diffuse interlobular septal thickening which may represent interstitial edema. Partially visualized reflux of contrast into the IVC and hepatic veins which may relate to reduced cardiac function. An endotracheal tube terminates in the distal thoracic trachea. There are atherosclerotic calcifications of the coronary arteries. Few calcified mediastinal lymph nodes. Lumbar spine: Grade 1 degenerative retrolisthesis of L1 on L2. Minimal interstitial L4on L5.. Trace levocurvature of the lumbar spine. Moderate osteopenia. Vertebral bodies are normal in height without evidence of acutefracture. There is advanced degenerative disc disease. There is central canal stenosis of varying degrees, most severe at the level of L4-5 and L2-L3, with moderate spinal canal stenosis at L1-L2 and L3-L4. There arevarying degrees of up to severe facet osteoarthritis. There are varying degreesof neural foraminal stenosis at multiple levels most significant at thelevel of L1-2. Colonic diverticulosis is partially imaged. Extensive atherosclerotic calcification of the abdominal aorta and its branch vessels. There are degenerative changes of the SI joints. Multiplesimple renal cysts bilaterally. 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 2.No significant mass effect or midline shift. 3.Right frontoparietal scalp laceration, no underlying calvarialfracture. 4.No acute facial bone fractures identified. 5.No evidence of acute fracture in the cervical, thoracic, or lumbarspine. 6.Up to severe degenerative change throughout the spine as detailed inthe findings section. 7.The separately dictated same day CT chest, abdomen and pelvis contain additional intrathoracic and intra-abdominal findings. Report dictated by Jann Viera MD (optometrist president/practice owner). Critical findings were discussed in detail with the patient's care provider, Dr. Samson by Dr. Viera via telephone at 11:34 PM on 03/13/2024with readback comprehension and verification. I, Gabe Page MD have personally reviewed and interpretedthis examination/study. 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 2.No significant mass effect or midline shift. 3.Right frontoparietal scalp laceration, no underlying calvarial fracture. 4.No acute facial bone fractures identified. 5.No evidence of acute fracture in the cervical, thoracic, or lumbar spine. 6.Up to severe degenerative change throughout the spine as detailed in the findings section. 7.The separately dictated same day CT chest, abdomen and pelvis contain additional intrathoracic and intra-abdominal findings. Report dictated by Jann Viera MD (optometrist president/practice owner). Critical findings were discussed in detail with the patient's care provider, Dr. Samson by Dr. Maximiliano via telephone at 11:34 PM on 03/13/2024 with readback comprehension and verification. I, Gabe Page MD have personally reviewed and interpreted this examination/study. > Interpreting Provider: Gaeb Page MD on 03/14/2024 6:31 AM Narrative 03/14/2024 6:31 AM ACCOUNT COORDINATOR PROCEDURE: ??CT HEAD WO CONTRAST, CT FACIAL BONES WO CONTRAST, CT LUMBAR SPINE WO CONTRAST, CT THORACIC SPINE WO CONTRAST, CT CERVICAL SPINE WO CONTRAST, DATE/TIME OF EXAM: ??03/13/2024 10:50 PM, LOCATION ??[facility] INDICATION: Trauma EXAMINATION: 1. Computed tomography (CT) of the head without contrast 2. CT of the maxillofacial bones, orbits, and paranasal sinuses without contrast 3. CT of the cervical spine without contrast 4. CT of the thoracic spine without contrast 5. CT of the lumbar spine without contrast TECHNIQUE: CT of the head, cervical spine, and maxillofacial bones, orbits, and paranasal sinuses was performed without contrast according to standard protocol. Reformatted axial, sagittal, and coronal images of the thoracic and lumbar spine were obtained by the technologist from a concurrently performed body CT and sent to the workstation for review. CT dose reduction technique was used, including Automated Exposure Control. COMPARISON: No prior study is available for comparison at the time of this dictation. FINDINGS: Head: There are sequelae of traumatic brain injury, with multi-compartmental intracranial hemorrhages as well as: *Acute subdural hematoma layering along the left tentorial leaflet up to 7 mm in maximum thickness (series 5 image 50). *There are small-moderate volume subarachnoid blood products in the bilateral sylvian fissures (series 3 image 22). *There are small volume subarachnoid blood products within the basal cisterns bilaterally. *Subtle hemorrhagic contusions along the anterior right temporal lobe cannot be excluded. There is mild cerebral volume loss with associated ex vacuo ventricular dilatation. No significant mass effect or midline shift is seen. Old lacunar infarct in the right caudate head. The gutierrez-white matter differentiation otherwise appears normal. Periventricular white matter hypoattenuation is indicative of chronic small vessel ischemic disease. There is vascular calcification of the carotid siphons. No acute calvarial fracture is identified. There is right frontoparietal scalp laceration and hematoma, along with tissue loss. Trace soft tissue gas is seen in this region. No underlying calvarial fracture. Also, contusion and swelling of the left parietal scalp and mildly of the left frontal scalp and superior periorbital area. Brain injury guidelines: Skull fracture: No Subdural hematoma: 5-7mm. Epidural hematoma: No epidural hematoma. Intraparenchymal hemorrhage: No intraparenchymal hemorrhage. Subarachnoid hemorrhage: Scattered-bihemispheric. Intraventricular hemorrhage: No. Midline shift: No. Maxillofacial: Other than bilateral cataract extractions,, and some mild scleral plaques, the orbits appear normal. There is mild paranasal sinus disease. There are degenerative changes of the temporomandibular joints, worse on the left the patient is edentulous. Cerumen is present in the external canals, left more than right The hard palate, mandible, and temporomandibular joints appear normal. Chronic left deviation of the nasal bones. The nasal septum is deviated to the right with a septal spur deforming the right inferior turbinate. Mild hypertrophy of the inferior turbinates, right more than left. There is a tiny bone fragment adjacent to anterior nasal spine which could represent an age-indeterminate fracture. Otherwise, no acute facial bone fractures are identified. The mastoid air cells are grossly clear. Suspected mild right periorbital soft tissue swelling. No additional soft tissue abnormality is identified. Cervical spine: There is gentle cervical kyphosis. Mild levocurvature of the cervical spine. There is a stepwise grade 1 anterolisthesis of C2 on C3, C3 on C4 and C4 on C5. Minimal anterolisthesis of C7 on T1. Vertebral bodies are normal in height without evidence of acute fracture. Mild osteopenia. Other than advanced middle atlantoaxial joint osteoarthritis, the craniocervical junction appears normal. There is advanced degenerative disc disease most significant at C4-5 and C6-C7. There is multilevel central canal stenosis, most significant at C4-5 with left eccentric moderate-severe stenosis due to prominent disc herniation, (series 8, image 92). Suspected severe spinal canal stenosis is also noted at C6-C7 due to diffuse disc osteophyte complex and hypertrophy of the ligamentum flavum. Moderate spinal canal stenosis noted at C3-C4, and C5-C6. There are varying degrees of advanced facet osteoarthritis. There are varying degrees of advanced uncovertebral joint osteoarthritis with the same degree of neural foraminal stenosis at these levels most severe at C3-C4 and C6-C7. There is centrilobular emphysema in the lung apices. There is atherosclerotic calcification of the carotid bifurcations. Thoracic spine: Exaggerated thoracic kyphosis. Mild dextrocurvature of the thoracic spine. Vertebral bodies are grossly normal in height without evidence of acute fracture. Schmorl's nodes are present at multiple levels. Mild osteopenia. No significant central canal stenosis is seen. There are varying degrees of mild facet osteoarthritis. ??There are varying degrees of neural foraminal stenosis at multiple levels. There is advanced atherosclerotic calcification of the thoracic aorta and its branch vessels. There is diffuse interlobular septal thickening which may represent interstitial edema. Partially visualized reflux of contrast into the IVC and hepatic veins which may relate to reduced cardiac function. An endotracheal tube terminates in the distal thoracic trachea. There are atherosclerotic calcifications of the coronary arteries. Few calcified mediastinal lymph nodes. Lumbar spine: Grade 1 degenerative retrolisthesis of L1 on L2. Minimal interstitial L4 on L5.. Trace levocurvature of the lumbar spine. Moderate osteopenia. Vertebral bodies are normal in height without evidence of acute fracture. There is advanced degenerative disc disease. There is central canal stenosis of varying degrees, most severe at the level of L4-5 and L2-L3, with moderate spinal canal stenosis at L1-L2 and L3-L4. There are varying degrees of up to severe facet osteoarthritis. There are varying degrees of neural foraminal stenosis at multiple levels most significant at the level of L1-2. ??Colonic diverticulosis is partially imaged. Extensive atherosclerotic calcification of the abdominal aorta and its branch vessels. There are degenerative changes of the SI joints. Multiple simple renal cysts bilaterally. Procedure Note Gabe Page MD - 03/14/2024 PROCEDURE: CT HEAD WO CONTRAST, CT FACIAL BONES WO CONTRAST, CT LUMBAR SPINE WO CONTRAST, CT THORACIC SPINE WO CONTRAST, CT CERVICAL SPINE WO CONTRAST, DATE/TIME OF EXAM: 03/13/2024 10:50 PM, LOCATION [facility] INDICATION: Trauma EXAMINATION: 1. Computed tomography (CT) of the head without contrast 2. CT of the maxillofacial bones, orbits, and paranasal sinuses without contrast 3. CT of the cervical spine without contrast 4. CT of the thoracic spine without contrast 5. CT of the lumbar spine without contrast TECHNIQUE: CT of the head, cervical spine, and maxillofacial bones,orbits, and paranasal sinuses was performed without contrast according tostandard protocol. Reformatted axial, sagittal, and coronal images of thethoracic and lumbar spine were obtained by the technologist from a concurrently performed body CT and sent to the workstation for review. CT dosereduction technique was used, including Automated Exposure Control. COMPARISON: No prior study is available for comparison at the time ofthis dictation. 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 *There are small-moderate volume subarachnoid blood products in the bilateral sylvian fissures (series 3 image 22). *There are small volume subarachnoid blood products within the basal cisterns bilaterally. *Subtle hemorrhagic contusions along the anterior right temporal lobe cannot be excluded. There is mild cerebral volume loss with associated ex vacuo ventricular dilatation. No significant mass effect or midline shift is seen. Old lacunar infarct in the right caudate head. The gutierrez-white matter differentiation otherwise appears normal. Periventricular white matter hypoattenuation is indicative of chronic small vessel ischemic disease. There is vascular calcification of the carotid siphons. No acutecalvarial fracture is identified. There is right frontoparietal scalp lacerationand hematoma, along with tissue loss. Trace soft tissue gas is seen in this region. No underlying calvarial fracture. Also, contusion and swellingof the left parietal scalp and mildly of the left frontal scalp andsuperior periorbital area. Brain injury guidelines: Skull fracture: No Subdural hematoma: 5-7mm. Epidural hematoma: No epidural hematoma. Intraparenchymal hemorrhage: No intraparenchymal hemorrhage. Subarachnoid hemorrhage: Scattered-bihemispheric. Intraventricular hemorrhage: No. Midline shift: No. Maxillofacial: Other than bilateral cataract extractions,, and some mild scleralplaques, the orbits appear normal. There is mild paranasal sinus disease. Thereare degenerative changes of the temporomandibular joints, worse on the leftthe patient is edentulous. Cerumen is present in the external canals, leftmore than right The hard palate, mandible, and temporomandibular jointsappear normal. Chronic left deviation of the nasal bones. The nasal septum is deviated to the right with a septal spur deforming the right inferior turbinate. Mild hypertrophy of the inferior turbinates, right more than left. There is a tiny bone fragment adjacent to anterior nasal spinewhich could represent an age-indeterminate fracture. Otherwise, no acutefacial bone fractures are identified. The mastoid air cells are grossly clear. Suspected mild right periorbital soft tissue swelling. No additionalsoft tissue abnormality is identified. Cervical spine: There is gentle cervical kyphosis. Mild levocurvature of the cervical spine. There is a stepwise grade 1 anterolisthesis of C2 on C3, C3 on C4 and C4 on C5. Minimal anterolisthesis of C7 on T1. Vertebral bodies are normal in height without evidence of acute fracture. Mild osteopenia.Other than advanced middle atlantoaxial joint osteoarthritis, thecraniocervical junction appears normal. There is advanced degenerative disc diseasemost significant at C4-5 and C6-C7. There is multilevel central canalstenosis, most significant at C4-5 with left eccentric moderate-severe stenosisdue to prominent disc herniation, (series 8, image 92). Suspected severespinal canal stenosis is also noted at C6-C7 due to diffuse disc osteophyte complex and hypertrophy of the ligamentum flavum. Moderate spinal canal stenosis noted at C3-C4, and C5-C6. There are varying degrees ofadvanced facet osteoarthritis. There are varying degrees of advanceduncovertebral joint osteoarthritis with the same degree of neural foraminal stenosisat these levels most severe at C3-C4 and C6-C7. There is centrilobular emphysema in the lung apices. There is atherosclerotic calcification ofthe carotid bifurcations. Thoracic spine: Exaggerated thoracic kyphosis. Mild dextrocurvature of the thoracicspine. Vertebral bodies are grossly normal in height without evidence of acute fracture. Schmorl's nodes are present at multiple levels. Mildosteopenia. No significant central canal stenosis is seen. There are varying degreesof mild facet osteoarthritis. There are varying degrees of neuralforaminal stenosis at multiple levels. There is advanced atherosclerotic calcification of the thoracic aorta and its branch vessels. There is diffuse interlobular septal thickening which may represent interstitial edema. Partially visualized reflux of contrast into the IVC and hepatic veins which may relate to reduced cardiac function. An endotracheal tube terminates in the distal thoracic trachea. There are atherosclerotic calcifications of the coronary arteries. Few calcified mediastinal lymph nodes. Lumbar spine: Grade 1 degenerative retrolisthesis of L1 on L2. Minimal interstitial L4on L5.. Trace levocurvature of the lumbar spine. Moderate osteopenia. Vertebral bodies are normal in height without evidence of acutefracture. There is advanced degenerative disc disease. There is central canal stenosis of varying degrees, most severe at the level of L4-5 and L2-L3, with moderate spinal canal stenosis at L1-L2 and L3-L4. There arevarying degrees of up to severe facet osteoarthritis. There are varying degreesof neural foraminal stenosis at multiple levels most significant at thelevel of L1-2. Colonic diverticulosis is partially imaged. Extensive atherosclerotic calcification of the abdominal aorta and its branch vessels. There are degenerative changes of the SI joints. Multiplesimple renal cysts bilaterally. 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 2.No significant mass effect or midline shift. 3.Right frontoparietal scalp laceration, no underlying calvarialfracture. 4.No acute facial bone fractures identified. 5.No evidence of acute fracture in the cervical, thoracic, or lumbarspine. 6.Up to severe degenerative change throughout the spine as detailed inthe findings section. 7.The separately dictated same day CT chest, abdomen and pelvis contain additional intrathoracic and intra-abdominal findings. Report dictated by Jann Viera MD (optometrist president/practice owner). Critical findings were discussed in detail with the patient's care provider, Dr. Samson by Dr. Viera via telephone at 11:34 PM on 03/13/2024with readback comprehension and verification. I, Gabe Page MD have personally reviewed and interpretedthis examination/study. > Interpreting Provider: Gabe Page MD on 03/14/2024 6:31 AM Lennie Anna MD CT ORDERABLES * PTT [facility] (03/13/2024 10:09 PM ACCOUNT COORDINATOR) APTT 23.3 23.0 - 38.4 Seconds 03/13/2024 10:40 PM [facility] Comment:Suggested therapeuti c range for full dose I.V. unfractionated heparin therapy for venous thromboembolism is 71 to 109 seconds. Blood BLOOD SPECIMEN / Unknown Venipuncture / Unknown 03/13/2024 10:09 PM ACCOUNT COORDINATOR 03/13/2024 10:18 PM ACCOUNT COORDINATOR Luther Bridges MD LAB - COAGULATION OR DERABLES Performing Organization Address [facility] Co de Phone Number [address] [address], [facility] [phone] * PT-INR [facility] (03/13/2024 10:09 PM ACCOUNT COORDINATOR) Only the most recent of2 resultswithin the time period is included. PT 13.9 12.1 - 14.8 Seconds 03/13/2024 10:40 PM ACCOUNT COORDINATOR [facility] INR 1.1 See Comment 03/13/2024 10:40 PM [facility] Comment:The suggested therap eutic range for standard coumadin (warfarin) therapy is an INR of 2.0-3.0. For high-risk patients (Mechanical Mitral Valve Prosthesis, etc.), the suggested prophylactic therapeutic range is an INR of 2.5-3.5. Blood BLOOD SPECIMEN / Unknown Venipuncture / Unknown 03/13/2024 10:09 PM ACCOUNT COORDINATOR 03/13/2024 10:18 PM ACCOUNT COORDINATOR Luther Bridges MD LAB - COAGULATION OR DERABLES Performing Organization Address City/[facility]/ZIP Co de Phone Number [address] [address], [facility] [phone] * LIPASE BLOOD (03/13/2024 10:09 PM ACCOUNT COORDINATOR) Lipase 14 8 - 78 U/L 03/13/2024 10:44 PM ACCOUNT COORDINATOR [facility] Blood BLOOD SPECIMEN / Unknown Venipuncture / Unknown 03/13/2024 10:09 PM ACCOUNT COORDINATOR 03/13/2024 10:18 PM ACCOUNT COORDINATOR Narrative [facility] - 03/13/2024 10:44 PM ACCOUNT COORDINATOR Lipase results from the Alas Alinity analyzer may not be comparable with other methodologies. Luther Bridges MD LAB - CHEMISTRY NANCI LEÓN Performing Organization Address [facility] Co de Phone Number [address] [address], [facility] [phone] * ALCOHOL ETHYL BLOOD (03/13/2024 10:09 PM ACCOUNT COORDINATOR) Ethanol (mg/dL) <10 <10 mg/dL 10:44 PM ACCOUNT COORDINATOR [facility] Ethanol Calculated (g/dL) <0.010 <=0.010 g/dL 03/13/2024 10:44 PM [facility] Blood BLOOD SPECIMEN / Unknown Venipuncture / Unknown 03/13/2024 10:09 PM ACCOUNT COORDINATOR 03/13/2024 10:18 PM ACCOUNT COORDINATOR Narrative [facility] - 03/13/2024 10:44 PM ACCOUNT COORDINATOR Ethanol Interp <10: None Detected. Depression of GEOMETRY PROFESSOR: >100 mg/dl Potentially Critical: >250 mg/dl Potentially Fatal >400 mg/dl Ethanol in the patient's blood will contribute to the osmolar gap. Ethanol's contribution to the osmolar gap can be estimated by dividing the concentration of ethanol in mg/dL by 4.6. This test is for clinical use only and does not equal a SANDIE for legal purposes. Luther Bridges MD LAB - CHEMISTRY NANCI LEÓN Performing Organization Address [facility] Co de Phone Number [address] [address], [facility] [phone] * Intubation (03/13/2024 10:10 AM ACCOUNT COORDINATOR) Narrative Luther Bridges MD - 03/13/2024 10:10 AM ACCOUNT COORDINATOR Narinder Nevarez, DO ? 03/13/2024 11:02 PM Intubation Date/Time: 03/13/2024 10:10 AM Performed by: Narinder Nevarez, DO Authorized by: Luther Bridges MD ?? Consent: ??Consent obtained: ??Emergent situation Keo protocol: ??Immediately prior to procedure, a time out was called: yes ?Patient identity confirmed: ??Arm band Pre-procedure details: ??Indications: airway protection ?Indications comment: ??Sedation for extensive head laceration due to AMS ??Patient status: ??Altered mental status ??Look externally: no concerns ?Mouth opening - incisor distance: ??3 or more finger widths ??Obstruction: none ?C-collar present comment: ??C-collar removed for intubation and in-line cervical stabilization maintained ??Pharmacologic strategy: RSI ?Induction agents: ??Etomidate ??Paralytics: ??Rocuronium Procedure details: ??Preoxygenation: ??Nasal cannula ??CPR in progress: no ?Number of attempts: ??1 Successful intubation attempt details: ??Intubation method: ??Oral ??Intubation technique: video assisted ?Laryngoscope blade: ??Hypercurved and Mac 3 ??Bougie used: no ?Grade view: II ?Tube size (mm): ??7.5 ??Tube type: ??Cuffed ??Tube visualized through cords: yes ?? Placement assessment: ??ETT at teeth/gumline (cm): ??23 ??Tube secured with: ??ETT gupta ??Breath sounds: ??Equal ??Placement verification: chest rise, colorimetric ETCO2, CXR verification, direct visualization, equal breath sounds and tube exhalation ?CXR findings: ??Appropriate position Post-procedure details: ??Procedure completion: ??Tolerated well, no immediate complications Luther Bridges MD PROCEDURE/MINOR SURG ICAL ORDERABLES * (ABNORMAL) RENAL FUNCTION PANEL (03/13/2024 9:36 AM [facility]) Only the most recent of2 resultswithin the time period is included. BUN 18 7 - 26 mg/dL 03/13/2024 10:21 AM [facility] Creatinine 1.01(H) 0.56 - 0.96 mg/dL 03/13/2024 10:21 AM [facility] Sodium 137 136 - 145 mmol/L 03/13/2024 10:21 AM [facility] Potassium 4.2 3.5 - 4.5 mmol/L 03/13/2024 10:21 AM [facility] Chloride 104 98 - 107 mmol/L 03/13/2024 10:21 AM [facility] CO2 25 22 - 29 mmol/L 03/13/2024 10:21 AM [facility] Glucose 127(H) 70 - 99 mg/dL 03/13/2024 10:21 AM [facility] Albumin 2.8(L) 3.4 - 5.0 g/dL 03/13/2024 10:21 AM [facility] Calcium 8.6 8.4 - 10.2 mg/dL 03/13/2024 10:21 AM [facility] Phosphorus 3.4 2.9 - 5.1 mg/dL 03/13/2024 10:21 AM [facility] Anion Gap 8 6 - 16 03/13/2024 10:21 AM [facility] BUN/Creatinine Ratio 18 7 - 23 03/13/2024 10:21 AM [facility] Osmolality Calculated 287 275 - 295 mOsm/kg 03/13/2024 10:21 AM [facility] eGFR by CKD-EPI 54(L) >=90 mL/min/1.7 3 m2 03/13/2024 10:21 AM [facility] Blood BLOOD SPECIMEN / Unknown Lab Venipuncture / Unknown 03/13/2024 9:36 AM ACCOUNT COORDINATOR 03/13/2024 9:50 AM [facility] Santos Gomez MD LAB - CHEMISTRY ORDE MAU [facility] Organization Address City/State/[facility] de Phone Number [facility] [address] [place] [address], [facility] [phone] * Arterial Line (03/11/2024 6:00 PM ACCOUNT COORDINATOR) Narrative Carlos Ndiaye MD - 03/11/2024 6:00 PM ACCOUNT COORDINATOR Eddy Huntley, DO ? 03/11/2024 ??6:00 PM Arterial Line Date/Time: 03/11/2024 6:00 PM Performed by: Eddy Huntley, DO Authorized by: Santos Gomez MD ?? Consent: ??Consent obtained: ??Verbal ??Risks discussed: ??Bleeding, infection and pain Keo protocol: ??Patient identity confirmed: ??Verbally with patient, arm band and hospital-assigned identification number Indications: ??Indications: hemodynamic monitoring ?? Pre-procedure details: ??Skin preparation: ??Chlorhexidine Sedation: ??Sedation type: ??None Anesthesia: ??Anesthesia method: ??Local infiltration ??Local anesthetic: ??Lidocaine 1% w/o epi Procedure details: ??Location: ??R radial ??Hiro's test performed: yes ?Hiro's test abnormal: no ?Needle gauge: ??18 G ??Placement technique: ??Seldinger and ultrasound guided ??Number of attempts: ??2 Post-procedure details: ??Post-procedure: ??Biopatch applied ??Procedure completion: ??Tolerated well, no immediate complications Santos Gomez MD PROCEDURE/MINOR SURG ICAL ORDERABLES Care Teams [employer] Sales Representative Relationship Specialty Start Date End Date None, Physician [address] [place] [address] PCP - General 03/13/24 Ada Rahman, GAME ENGINEER-MEAL PACKER [address] [place] [id number] Nurse Practitioner Family 03/13/24
--- OUTSIDE RECORDS SUMMARY | 2024-05-01 13:44 | XMS_ITS | Referral Summary ---
Author Organization [facility] Address [address] [place] [address] Care Team Providers Care Director Of Knowledge Management Name Role Phone None, Physician Primary Care Provider Liu Rahman Ada Sarah NETWORK INTELLIGENCE ANALYST-PHOTOGRAPHY COLORIST Unavailable [phone] Source Comments [facility],non-owned Affiliates and Associated Physician Practices is amultiple site organization consisting of ambulatory clinics and hospital sitesin [place], [place], [place] and [place]. This disclosure is being madepursuant to the Care Everywhere program and may not contain all information available regarding this patient. Last updated 18.[facility] Encounters Date Type Department Care Team Description 04/24/2024 Orders Only [facility] NEUROSURGERY [address] [place] [address] Pramod Soto MD SDH (subdural hematoma) (HCC) 03/13/2024 9:48 PM [facility] - 04/08/2024 4:15 PM [facility] Hospital Encounter [facility] [address] [place] [address] Luther Bridges MD Stanley, Chad, MD Medintz, Lennie VenusMD Arsenio Keniesha O, MD Albrecht, Ryan, DO Internal Medicine Discharge Disposition: Rehab:Inpatient 03/15/2024 Travel 03/14/2024 Travel 03/11/2024 2:14 PM [facility] - 03/13/2024 5:01 PM [facility] Hospital Encounter [facility] [address] ACUTE [address] [place] [address] Carlos Ndiaye MD Arora, Shilpkumar, MD Cardiovascular Disease Discharge Disposition: [facility] Acute Care 03/11/2024 Travel from Last 3 Months Allergies Active Allergy Reactions Criticality Noted Date Comments Ciprofloxacin Rash Medium 03/11/2024 Quinolones Unknown 03/11/2024 Sulfa Antibiotics Unknown 03/11/2024 Medications * Be aware that medications may not be up to date on this document. Alwaysverify current medications with the patient. Medication Sig Dispensed Refills Start Date End Date Status ascorbic acid (Vitamin C) 500 MG tablet Take 1 (one) tablet by mouth once daily Active calcium carbonate (Tums) 500 MG chew tablet Take 3 (three) tablets by mouth 2 times daily with morning and evening meal Active cholestyramine (Questran) 4 g packet Take 1 (one) packet by mouth once daily Active hyoscyamine CR 12hr (Levbid) 0.375 MG tablet Take 1 (one) tablet by mouth once daily Active lansoprazole (Prevacid) 30 MG capsule Take 1 (one) capsule by mouth daily before breakfast Active loperamide (Imodium) 2 MG capsule Take 1 (one) capsule by mouth as needed for Diarrhea Active raloxifene (Evista) 60 MG tablet Take 1 (one) tablet by mouth once daily Active evolocumab (Repatha) 140 MG/ML prefilled syringe Inject 140 (one hundred forty) mg subcutaneously every 14 days Active traMADol (Ultram) 50 MG tablet Take 1 (one) tablet by mouth every 6 hours as needed for Pain Active carvedilol (Coreg) 25 MG tablet Take 1 (one) tablet by mouth 2 times daily with morning and evening meal 60 tablet 3 03/13/2024 Active atorvastatin (Lipitor) 20 MG tablet Take 1 (one) tablet by mouth at bedtime 30 tablet 3 03/13/2024 Active aspirin (Aspirin) 81 MG chew tablet Take 1 (one) tablet by mouth once daily 30 tablet 2 03/14/2024 Active acetaminophen (Tylenol) 325 MG tablet Take 2 (two) tablets by mouth every 4 hours as needed Maximum allowable Acetaminophen amount = 4 Grams (4000 mg) / 24 hours. 04/08/2024 Active albuterol-ipratr opium (Duo-Neb) 0.5-2.5 (3) MG/3ML nebulizer solution Inhale 3 mL by mouth every 4 hours as needed for Shortness of Breath or Wheezing 04/08/2024 Active enoxaparin (Lovenox) 30 MG/0.3ML injection Inject 30 (thirty) mg subcutaneously every 12 hours 04/08/2024 Active traZODone (Desyrel) 50 MG tablet Take 0.5 (one-half) tablet by mouth nightly as needed for Insomnia 04/08/2024 Active losartan (Cozaar) 50 MG tablet Take 1 (one) tablet by mouth once daily 04/09/2024 Active polyethylene glycol 3350 (Miralax) 17 g packet Take 17 (seventeen) g by mouth once daily 04/09/2024 Active melatonin 3 MG tablet Take 1 (one) tablet by mouth at bedtime 04/08/2024 Active tamsulosin (Flomax) 0.4 MG capsule Take 1 (one) capsule by mouth once daily At the same time every day after a meal. 04/09/2024 Active white petroleum (Vaseline) ointment Apply to affected area 3 times daily 04/08/2024 Active FLUoxetine (PROzac) 20 MG capsule Take 1 (one) capsule by mouth once daily 4 Discontinue d(Clinical Decision) losartan (Cozaar) 25 MG tablet Take 1 (one) tablet by mouth once daily 30 tablet 3 03/14/2024 4 Discontinue d(Dose Adjustment) Active Problems Problem Noted Date Diagnosed Date [...] Respiratory failure after trauma 03/13/2024 03/25/2024 Immunizations Name Administration Dates Next Due TDAP (7yrs+) 03/13/2024 Social History Tobacco Use Types Packs/Day Years [...] and heating? Not hard at all 03/28/2024 [facility] - [facility] [...] any time in the past 12 m [facility], were you homeless or living in a assisted (including now)? No 03/28/2024 Sex and Gender Information Value Date Recorded Sex Assigned at Not on file Gender Identity Not on file Sexual Orientation Not on file Last Filed Vital Signs Vital Sign Reading Time Taken Comments Blood Pressure 149/72 04/08/2024 7:42 AM [facility] Pulse 58 04/08/2024 7:42 AM [facility] Temperature 36.2 ??C (97.2 ??F) 04/08/2024 7:42 AM CS T Respiratory Rate 16 04/07/2024 11:30 PM [facility] Oxygen Saturation 98% 04/08/2024 3:57 PM [facility] Inhaled Oxygen Concentration 30% 03/19/2024 1 2:00 PM [facility] Weight 87.8 kg (193 lb 9.6 oz) 03/19/2024 4:00 A M [facility] Height 170.2 cm (5' 7 ) 03/14/2024 3:49 AM [facility] Body Mass Index 30.32 03/14/2024 3:49 AM [facility] Functional Status Functional Status Response Date of Assess ment Is person deaf or have sarah us hearing difficulty? No 03/14/2024 Is person blind or have seri ous difficulty seeing? Yes-wears glasses to read 03/14/2024 Does person have serious dif ficulty walking/climbing stairs? Yes 03/14/2024 Does person have difficulty dressing/bathing? Yes 03/14/2024 Does person have difficulty doing errands alone? Yes 03/14/2024 Cognitive Status Response Date of Assessm ent Does person have difficulty concentrating/remembering/making decisions? Yes 03/14/2024 Plan of Treatment Not on file Procedures Procedure Name Priority Date/Time Associated Diagnosis Comments PHOSPHORUS BLOOD Routine 04/06/2024 4:42 AM [facility] MAGNESIUM BLOOD Routine 04/06/2024 4:42 AM [facility] BASIC METABOLIC PANEL (CALCIUM TOTAL) Routine 04/06/2024 4:42 AM [facility] CBC W/O DIFFERENTIAL Routine 04/06/2024 4:[address] HEAD WO CONTRAST STAT 04/04/2024 8 :02 PM [facility] Fall, initial encounter PHOSPHORUS BLOOD Routine 04/01/2024 7:50 PM [facility] MAGNESIUM BLOOD Routine 04/01/2024 7:50 PM [facility] BASIC METABOLIC PANEL (CALCIUM TOTAL) Routine 04/01/2024 7:50 PM [facility] CBC W/O DIFFERENTIAL Routine 04/01/2024 7:50 PM [facility] URINALYSIS REFLEX TO MICROSCOPIC NO CULTURE Routine 03/29/2024 1:31 PM [facility] PHOSPHORUS BLOOD STAT 03/25/2024 10:3 2 AM [facility] MAGNESIUM BLOOD STAT 03/25/2024 10:32 AM [facility] BASIC METABOLIC PANEL (CALCIUM TOTAL) STAT 03/25/2024 10:32 AM [facility] CBC W AUTO DIFFERENTIAL STAT 03/25/2024 10:32 AM [facility] GLUCOSE - POINT OF CARE Routine 03/24/2024 8:18 PM [facility] GLUCOSE - POINT OF CARE Routine 03/24/2024 4:53 PM [facility] GLUCOSE - POINT OF CARE Routine 03/24/2024 11:58 AM [facility] GLUCOSE - POINT OF CARE Routine 03/24/2024 8:05 AM [facility] GLUCOSE - POINT OF CARE Routine 03/24/2024 7:04 AM [facility] GLUCOSE - POINT OF CARE Routine 03/24/2024 12:25 AM [facility] GLUCOSE - POINT OF CARE Routine 03/23/2024 6:54 PM [facility] URINALYSIS REFLEX TO MICROSCOPIC NO CULTURE Routine 03/23/2024 6:27 PM [facility] CBC W AUTO DIFFERENTIAL Timed 03/23/2024 1:04 PM [facility] CBC W AUTO DIFFERENTIAL Timed 03/23/2024 2:15 AM [facility] GLUCOSE - POINT OF CARE Routine 03/22/2024 5:50 PM [facility] BASIC METABOLIC PANEL (CALCIUM TOTAL) AM Draw 03/22/2024 6:56 AM [facility] CBC W AUTO DIFFERENTIAL Timed 03/21/2024 11:40 PM [facility] GLUCOSE - POINT OF CARE Routine 03/21/2024 12:36 PM [facility] GLUCOSE - POINT OF CARE Routine 03/21/2024 6:18 AM [facility] CALCIUM IONIZED WHOLE BLOOD Timed 03/21/2024 2:12 AM [facility] MAGNESIUM BLOOD Timed 03/21/2024 2:12 AM [facility] PHOSPHORUS BLOOD Timed 03/21/2024 2:12 AM [facility] BASIC METABOLIC PANEL (CALCIUM TOTAL) Timed 03/21/2024 2:12 AM [facility] CBC W AUTO DIFFERENTIAL Timed 03/21/2024 2:12 AM [facility] GLUCOSE - POINT OF CARE Routine 03/21/2024 12:20 AM [facility] GLUCOSE - POINT OF CARE Routine 03/20/2024 5:42 PM [facility] GLUCOSE - POINT OF CARE Routine 03/20/2024 12:24 PM [facility] GLUCOSE - POINT OF CARE Routine 03/20/2024 5:08 AM [facility] GLUCOSE - POINT OF CARE Routine 03/20/2024 1:28 AM [facility] CALCIUM IONIZED WHOLE BLOOD Timed 03/20/2024 12:29 AM [facility] MAGNESIUM BLOOD Timed 03/20/2024 12:29 AM [facility] PHOSPHORUS BLOOD Timed 03/20/2024 12:2 9 AM [facility] BASIC METABOLIC PANEL (CALCIUM TOTAL) Timed 03/20/2024 12:29 AM [facility] CBC W AUTO DIFFERENTIAL Timed 03/20/2024 12:29 AM [facility] GLUCOSE - POINT OF CARE Routine 03/19/2024 6:51 PM [facility] GLUCOSE - POINT OF CARE Routine 03/19/2024 6:16 PM [facility] GLUCOSE - POINT OF CARE Routine 03/19/2024 1:09 PM [facility] GLUCOSE - POINT OF CARE Routine 03/19/2024 5:02 AM [facility] XR CHEST 1VW PORTABLE Routine 03/19/2024 4:35 AM [facility] Endotracheal tube present GLUCOSE - POINT OF CARE Routine 03/19/2024 12:00 AM [facility] CALCIUM IONIZED WHOLE BLOOD Timed 03/18/2024 11:58 PM [facility] MAGNESIUM BLOOD Timed 03/18/2024 11:58 PM [facility] PHOSPHORUS BLOOD Timed 03/18/2024 11:5 8 PM [facility] BASIC METABOLIC PANEL (CALCIUM TOTAL) Timed 03/18/2024 11:58 PM [facility] CBC W AUTO DIFFERENTIAL Timed 03/18/2024 11:58 PM [facility] GLUCOSE - POINT OF CARE Routine 03/18/2024 6:39 PM [facility] CBC W/O DIFFERENTIAL STAT 03/18/2024 3:42 PM [facility] GLUCOSE - POINT OF CARE Routine 03/18/2024 5:24 AM [facility] XR CHEST 1VW PORTABLE Routine 03/18/2024 4:20 AM [facility] Endotracheal tube present TRANSFUSE RED BLOOD CELL LEUKOREDUCED UNIT(S) Routine 03/18/2024 1:41 AM [facility] PREPARE RBC LEUKOREDUCED UNIT Routine 03/18/2024 1:34 AM [facility] TYPE + SCREEN PANEL Routine 03/18/2024 1 2:35 AM [facility] CBC W/O DIFFERENTIAL Routine 03/18/2024 12:35 AM [facility] CALCIUM IONIZED WHOLE BLOOD Timed 03/18/2024 12:01 AM [facility] MAGNESIUM BLOOD Timed 03/18/2024 12:01 AM [facility] PHOSPHORUS BLOOD Timed 03/18/2024 12:0 1 AM [facility] BASIC METABOLIC PANEL (CALCIUM TOTAL) Timed 03/18/2024 12:01 AM [facility] CBC W AUTO DIFFERENTIAL Timed 03/18/2024 12:01 AM [facility] GLUCOSE - POINT OF CARE Routine 03/17/2024 5:07 PM [facility] GLUCOSE - POINT OF CARE Routine 03/17/2024 12:07 PM [facility] ECHO COMPLETE W CONTRAST Routine 03/17/2024 11:33 AM [facility] Trauma GLUCOSE - POINT OF CARE Routine 03/17/2024 6:17 AM [facility] XR CHEST 1VW PORTABLE Routine 03/17/2024 4:36 AM [facility] Endotracheal tube present GLUCOSE - POINT OF CARE Routine 03/17/2024 12:50 AM [facility] CALCIUM IONIZED WHOLE BLOOD Timed 03/17/2024 12:50 AM [facility] MAGNESIUM BLOOD Timed 03/17/2024 12:50 AM [facility] PHOSPHORUS BLOOD Timed 03/17/2024 12:5 0 AM [facility] BASIC METABOLIC PANEL (CALCIUM TOTAL) Timed 03/17/2024 12:50 AM [facility] CBC W AUTO DIFFERENTIAL Timed 03/17/2024 12:50 AM [facility] GLUCOSE - POINT OF CARE Routine 03/16/2024 4:44 PM [facility] CARDIAC EKG ORDER 03/16/2024 1:3 4 PM [facility] GLUCOSE - POINT OF CARE Routine 03/16/2024 11:08 AM [facility] GLUCOSE - POINT OF CARE Routine 03/16/2024 11:07 AM [facility] GLUCOSE - POINT OF CARE Routine 03/16/2024 5:32 AM [facility] XR CHEST 1VW PORTABLE Routine 03/16/2024 3:46 AM [facility] Endotracheal tube present BLOOD GASES ART + COOX PANEL Routine 03/16/2024 1:37 AM [facility] CALCIUM IONIZED WHOLE BLOOD Timed 03/16/2024 1:37 AM [facility] MAGNESIUM BLOOD Timed 03/16/2024 1:37 AM [facility] PHOSPHORUS BLOOD Timed 03/16/2024 1:37 AM [facility] BASIC METABOLIC PANEL (CALCIUM TOTAL) Timed 03/16/2024 1:37 AM [facility] CBC W AUTO DIFFERENTIAL Timed 03/16/2024 1:37 AM [facility] GLUCOSE - POINT OF CARE Routine 03/16/2024 1:35 AM [facility] TROPONIN-I HIGH SENSITIVE REFLEX 1HOUR Timed 03/15/2024 9:07 PM [facility] TROPONIN-I HIGH SENSITIVE BASELINE + 1HR Routine 03/15/2024 6:03 PM [facility] GLUCOSE - POINT OF CARE Routine 03/15/2024 5:38 PM [facility] PHOSPHORUS BLOOD STAT 03/15/2024 4:53 PM [facility] MAGNESIUM BLOOD STAT 03/15/2024 4:53 PM [facility] CBC W/O DIFFERENTIAL STAT 03/15/2024 4:53 PM [facility] XR CHEST 1VW PORTABLE Routine 03/15/2024 4:40 PM [facility] Fall, initial encounter Subarachnoid bleed (HCC) Altered mental status, unspecified altered mental status type Respiratory failure after trauma (HCC) Endotracheal tube present Subdural hematoma (HCC) Acute pain Impaired mobility and ADLs Trauma COMPREHENSIVE METABOLIC PANEL STAT 03/15/2024 4:26 PM [facility] BLOOD GASES ART + COOX PANEL STAT 03/15/2024 4:26 PM [facility] B-TYPE NATRIURETIC PEPTIDE STAT 03/15/2024 4:26 PM [facility] TROPONIN-I HIGH SENSITIVE STAT 03/15/2024 4:26 PM [facility] EKG 12-LEAD Routine 03/15/2024 4:16 PM [facility] Fall, initial encounter Subarachnoid bleed (HCC) Altered mental status, unspecified altered mental status type Respiratory failure after trauma (HCC) Endotracheal tube present Subdural hematoma (HCC) Acute pain Impaired mobility and ADLs Trauma BLOOD GASES VASILIY + COOX PANEL Routine 03/15/2024 12:05 PM [facility] GLUCOSE - POINT OF CARE Routine 03/15/2024 12:03 PM [facility] GLUCOSE - POINT OF CARE Routine 03/15/2024 6:03 AM [facility] XR CHEST 1VW PORTABLE Routine 03/15/2024 5:09 AM [facility] Endotracheal tube present CALCIUM IONIZED WHOLE BLOOD Routine 03/15/2024 12:48 AM [facility] TRIGLYCERIDES BLOOD AM Draw 03/15/2024 1 2:48 AM [facility] BLOOD GASES ART + COOX PANEL STAT 03/15/2024 12:48 AM [facility] MAGNESIUM BLOOD Timed 03/15/2024 12:48 AM [facility] PHOSPHORUS BLOOD Timed 03/15/2024 12:4 8 AM [facility] BASIC METABOLIC PANEL (CALCIUM TOTAL) Timed 03/15/2024 12:48 AM [facility] CBC W AUTO DIFFERENTIAL Timed 03/15/2024 12:48 AM [facility] GLUCOSE - POINT OF CARE Routine 03/14/2024 11:20 PM [facility] XR HAND LEFT 2VW Routine 03/14/2024 9:53 PM [facility] Fall, initial encounter Subarachnoid bleed (HCC) Altered mental status, unspecified altered mental status type Respiratory failure after trauma (HCC) Endotracheal tube present Subdural hematoma (HCC) Acute pain Impaired mobility and ADLs Trauma URINALYSIS REFLEX MICROSCOPIC REFLEX CULTURE Routine 03/14/2024 9:51 PM [facility] XR HAND RIGHT 2VW Routine 03/14/2024 9:4 2 PM [facility] Fall, initial encounter Subarachnoid bleed (HCC) Altered mental status, unspecified altered mental status type Respiratory failure after trauma (HCC) Endotracheal tube present Subdural hematoma (HCC) Acute pain Impaired mobility and ADLs Trauma XR KNEE LEFT 2VW OR LESS Routine 03/14/2024 9:31 PM [facility] Fall, initial encounter Subarachnoid bleed (HCC) Altered mental status, unspecified altered mental status type Respiratory failure after trauma (HCC) Endotracheal tube present Subdural hematoma (HCC) Acute pain Impaired mobility and ADLs Trauma XR KNEE RIGHT 2VW OR LESS Routine 03/14/2024 9:20 PM [facility] Fall, initial encounter Subarachnoid bleed (HCC) Altered mental status, unspecified altered mental status type Respiratory failure after trauma (HCC) Endotracheal tube present Subdural hematoma (HCC) Acute pain Impaired mobility and ADLs Trauma CALCIUM IONIZED WHOLE BLOOD Timed 03/14/2024 6:46 PM [facility] BLOOD GASES VASILIY + COOX PANEL STAT 03/14/2024 6:46 PM [facility] GLUCOSE - POINT OF CARE Routine 03/14/2024 6:08 PM [facility] CBC W/O DIFFERENTIAL Routine 03/14/2024 6:[address] HEAD WO CONTRAST Routine 03/14/2024 3 :03 PM [facility] Altered mental status, unspecified altered mental status type GLUCOSE - POINT OF CARE Routine 03/14/2024 11:39 AM [facility] CALCIUM IONIZED WHOLE BLOOD Routine 03/14/2024 9:29 AM [facility] BLOOD GASES VASILIY + COOX PANEL Routine 03/14/2024 9:29 AM [facility] CBC W/O DIFFERENTIAL STAT 03/14/2024 9:22 AM [facility] PHOSPHORUS BLOOD STAT 03/14/2024 7:49 AM [facility] MAGNESIUM BLOOD STAT 03/14/2024 7:49 AM [facility] BASIC METABOLIC PANEL (CALCIUM TOTAL) STAT 03/14/2024 7:49 AM [facility] BLOOD GASES ART + COOX PANEL STAT 03/14/2024 7:[address] ANGIO BRAIN Routine 03/14/2024 6:50 AM [facility] Subarachnoid bleed (HCC) BLOOD TYPE VERIFICATION STAT 03/14/2024 5:50 AM [facility] HEMOGLOBIN A1C Routine 03/14/2024 5:50 AM [facility] URINE DRUG SCREEN IMMUNOASSAY STAT 03/14/2024 5:23 AM [facility] GLUCOSE - POINT OF CARE Routine 03/14/2024 5:13 AM [facility] TEG 6S PLATELET MAPPING STAT 03/13/2024 11:48 PM [facility] TEG 6 GLOBAL HEMOSTASIS W/ LYSIS STAT 03/13/2024 11:48 PM [facility] XR ABDOMEN KUB PORTABLE STAT 03/13/2024 11:40 PM [facility] Fall, initial encounter CT FACIAL BONES WO CONTRAST STAT 03/13/2024 10:49 PM [facility] Fall, initial encounter CT LUMBAR SPINE WO CONTRAST STAT 03/13/2024 10:49 PM [facility] Fall, initial encounter CT THORACIC SPINE WO CONTRAST STAT 03/13/2024 10:49 PM [facility] Fall, initial encounter CT CHEST ABDOMEN PELVIS W CONT STAT 03/13/2024 10:49 PM [facility] Fall, initial encounter CT CERVICAL SPINE WO CONTRAST STAT 03/13/2024 10:49 PM [facility] Fall, initial encounter CT HEAD WO CONTRAST STAT 03/13/2024 1 0:49 PM [facility] Fall, initial encounter XR CHEST 1VW PORTABLE STAT 03/13/2024 10:24 PM [facility] Fall, initial encounter TYPE + SCREEN PANEL STAT 03/13/2024 1 0:09 PM [facility] PTT SLH STAT 03/13/2024 10:09 PM [facility] COMPREHENSIVE METABOLIC PANEL STAT 03/13/2024 10:09 PM [facility] PT-INR SLH STAT 03/13/2024 10:09 PM [facility] LIPASE BLOOD STAT 03/13/2024 10:09 PM [facility] CBC W AUTO DIFFERENTIAL STAT 03/13/2024 10:09 PM [facility] ALCOHOL ETHYL BLOOD STAT 03/13/2024 1 0:09 PM [facility] ED INTUBATION Routine 03/13/2024 10:10 AM [facility] MAGNESIUM BLOOD Routine 03/13/2024 9:36 AM [facility] RENAL FUNCTION PANEL AM Draw 03/13/2024 9:36 AM [facility] CBC W/O DIFFERENTIAL AM Draw 03/13/2024 9:36 AM [facility] GLUCOSE - POINT OF CARE Routine 03/12/2024 6:37 AM [facility] MAGNESIUM BLOOD Routine 03/12/2024 3:30 AM [facility] RENAL FUNCTION PANEL AM Draw 03/12/2024 3:30 AM [facility] CBC W/O DIFFERENTIAL AM Draw 03/12/2024 3:30 AM [facility] ED ARTERIAL LINE INSERTION Routine 03/11/2024 6:00 PM [facility] TROPONIN-I HIGH SENSITIVE REFLEX 1HOUR Timed 03/11/2024 4:52 PM [facility] EKG 12-LEAD STAT 03/11/2024 2:42 PM [facility] Chest pain, unspecified type XR CHEST 1VW PORTABLE STAT 03/11/2024 2:38 PM [facility] Chest pain, unspecified type B-TYPE NATRIURETIC PEPTIDE STAT 03/11/2024 2:35 PM [facility] PT-INR [facility] STAT 03/11/2024 2:35 PM [facility] TROPONIN-I HIGH SENSITIVE BASELINE + 1HR STAT 03/11/2024 2:35 PM [facility] MAGNESIUM BLOOD STAT 03/11/2024 2:35 PM [facility] COMPREHENSIVE METABOLIC PANEL STAT 03/11/2024 2:35 PM [facility] CBC W AUTO DIFFERENTIAL STAT 03/11/2024 2:35 PM [facility] from Last 3 Months Results * (ABNORMAL) CBC W/O DIFFERENTIAL (04/06/2024 4:42 AM [facility]) Only the most recent of9 resultswithin the time period is included. WBC 7.4 4.0 - 10.7 x10E9/L 04/06/2024 5:34 AM [facility] RBC Count 3.34(L) 3.90 - 5.20 x10E12/L 04/06/2024 5:34 AM [facility] Hemoglobin 9.2(L) 11.9 - 15.8 g/dL 04/06/2024 5:34 AM [facility] Hematocrit 31.8(L) 34.8 - 46.1 % 04/06/2024 5:34 AM [facility] MCV 95.2 80.0 - 98.0 fL 04/06/2024 5:34 AM [facility] MCH 27.5 26.7 - 33.6 pg 04/06/2024 5:34 AM [facility] MCHC 28.9(L) 31.7 - 36.3 g/dL 04/06/2024 5:34 AM [facility] RDW-CV 14.9(H) 11.3 - 14.8 % 04/06/2024 5:34 AM [facility] Platelet Count 353 150 - 420 x10E9/L 04/06/2024 5:34 AM [facility] MPV 10.6 7.8 - 11.4 fL 04/06/2024 5:34 AM [facility] Blood BLOOD SPECIMEN / Unknown Lab Venipuncture / Unknown 04/06/2024 4:42 AM [facility] 04/06/2024 5:20 AM [facility] Andre Cesar MD LAB - HEMATOLOGY ORDERABLES [facility] [address] [place] [address], [facility] [phone] * (ABNORMAL) BASIC METABOLIC PANEL (CALCIUM TOTAL) (04/06/2024 4:42 AM [facility]) Only the most recent of12 resultswithin the time period is included. BUN 25 7 - 26 mg/dL 04/06/2024 5:45 AM [facility] Creatinine 0.81 0.56 - 0.96 mg/dL 04/06/2024 5:45 AM [facility] Sodium 147(H) 136 - 145 mmol/L 04/06/2024 5:45 AM [facility] Potassium 3.9 3.5 - 4.5 mmol/L 04/06/2024 5:45 AM [facility] Chloride 113(H) 98 - 107 mmol/L 04/06/2024 5:45 AM [facility] CO2 30(H) 22 - 29 mmol/L 04/06/2024 5:45 AM [facility] Glucose 114(H) 70 - 99 mg/dL 04/06/2024 5:45 AM [facility] Calcium 8.8 8.4 - 10.2 mg/dL 04/06/2024 5:45 AM [facility] Anion Gap 4(L) 6 - 16 04/06/2024 5:45 AM [facility] BUN/Creatinine Ratio 31(H) 7 - 23 04/06/2024 5:45 AM [facility] Osmolality Calculated 309(H) 275 - 295 mOsm/kg 04/06/2024 5:45 AM [facility] eGFR by CKD-EPI 70(L) >=90 mL/min/1.7 3 m2 04/06/2024 5:45 AM [facility] Blood BLOOD SPECIMEN / Unknown Lab Venipuncture / Unknown 04/06/2024 4:42 AM [facility] 04/06/2024 5:17 AM [facility] Andre Cesar MD LAB - CHEMISTRY O RDCATERINA Performing Organization Address City/[facility]/ZIP Co de Phone Number [facility] [address] [place] [address], [place] [phone] * PHOSPHORUS BLOOD (04/06/2024 4:42 AM [facility]) Only the most recent of12 resultswithin the time period is included. Phosphorus 3.2 2.9 - 5.1 mg/dL 04/06/2024 5:45 AM [facility] Blood BLOOD SPECIMEN / Unknown Lab Venipuncture / Unknown 04/06/2024 4:42 AM [facility] 04/06/2024 5:17 AM [facility] Andre Cesar MD LAB - CHEMISTRY O MORRO Performing Organization Address City/[facility]/ZIP Co de Phone Number [facility] [address] [place] [address], [place] [phone] * MAGNESIUM BLOOD (04/06/2024 4:42 AM [facility]) Only the most recent of15 resultswithin the time period is included. Magnesium 2.2 1.6 - 2.6 mg/dL 04/06/2024 5:45 AM [facility] Blood BLOOD SPECIMEN / Unknown Lab Venipuncture / Unknown 04/06/2024 4:42 AM [facility] 04/06/2024 5:17 AM [facility] Andre Cesar MD LAB - CHEMISTRY O [facility] [address] [place] [address], [facility] [phone] * CT Head Wo Contrast (04/04/2024 8:02 PM [facility]) Only the most recent of3 resultswithin the time period is included. Anatomical Region Laterality Modality Head Computed Tomogra phy 04/04/2024 8:30 PM [facility] Impressions 04/04/2024 11:36 PM [facility] IMPRESSION: 1.No new intracranial hemorrhage identified. 2.Interval near complete resolution of a small amount of subdural blood products along the left tentorial leaflet and subarachnoid blood products in the bilateral cerebral sulci and cerebral fissures. 3.Bilateral chronic subdural fluid collections are similar in maximum thickness, now decrease in density and now nearly isodense relative to CSF. Report dictated by Jann Viera MD (radiology physician). IGabe MD have personally reviewed and interpreted this examination/study. > Interpreting Provider: Gabe Page MD on 04/04/2024 11:36 PM Narrative 04/04/2024 11:36 PM [facility] PROCEDURE: ??CT HEAD WO CONTRAST, DATE/TIME OF EXAM: ??04/04/2024 8:03 PM, LOCATION ??[facility] INDICATION: [id number].XXXA: Fall, initial encounter EXAMINATION: Computed [...] DATE/TIME OF EXAM: 04/04/2024 8:03 PM, [facility] [facility] INDICATION: W19.XXXA: Fall, initial encounter EXAMINATION: Computed [...] toCSF. Report dictated by Jann Viera MD (radiology physician). I, Gabe Page MD have personally reviewed and interpretedthis examination/study. > Interpreting Provider: Gabe Page MD on 04/04/2024 11:36PM Isabella Elliott MD CT ORDERABLES * (ABNORMAL) URINALYSIS REFLEX TO MICROSCOPIC NO CULTURE (03/29/2024 1:31 PM [facility]) Only the most recent of2 resultswithin the time period is included. Color UA Yellow Straw, Yellow 03/29/2024 1:54 PM [facility] Clarity UA Turbid(A) Clear 03/29/2024 1:54 PM [facility] Specific [place] UA 1.012 1.005 - 1.030 03/29/2024 1:54 PM [facility] pH UA 8.0 5.0 - 8.0 pH 03/29/2024 1:54 PM [facility] Protein UA Negative Negative 03/29/2024 1:54 PM [facility] Glucose UA Negative Negative 03/29/2024 1:54 PM [facility] Ketone UA Negative Negative 03/29/2024 1:54 PM [facility] Bilirubin UA Negative Negative 03/29/2024 1:54 PM [facility] Blood UA Negative Negative 03/29/2024 1:54 PM [facility] Nitrite UA Negative Negative 03/29/2024 1:54 PM [facility] Leukocyte Esterase Negative Negative 03/29/2024 1:54 PM [facility] Urobilinogen UA Negative Negative mg/dL 03/29/2024 1:54 PM [facility] RBC UA 3-5 None Seen, 0-2, 3-5 /HPF 03/29/2024 1:54 PM [facility] WBC UA 0-5 None Seen, 0-5 /HPF 03/29/2024 1:54 PM [facility] Squamous Epithelial Cells UA 3-5 None Seen, 0-2, 3-5 /HPF 03/29/2024 1:54 PM [facility] Mucus UA 1+ /LPF 03/29/2024 1:54 PM [facility] Amorphous Crystals Many(A) None /HPF 03/29/2024 1:54 PM [facility] Urine URINE SPECIMEN OBTAINED BY CLEAN CATCH PROCEDURE / Unknown Collection / Unknown 03/29/2024 1:31 PM [facility] 03/29/2024 1:31 PM [facility] Narrative [facility] - 03/29/2024 1:54 PM [facility] Dian Valera NETWORK INTELLIGENCE ANALYST-PHOTOGRAPHY COLORIST LAB - URINALYSIS ORDERABLES [facility] [address] [place] [address], [facility] [phone] * (ABNORMAL) CBC W AUTO DIFFERENTIAL (03/25/2024 10:32 AM [facility]) Only the most recent of13 resultswithin the time period is included. WBC 9.1 4.0 - 10.7 x10E9/L 03/25/2024 10:54 AM [facility] RBC Count 3.32(L) 3.90 - 5.20 x10E12/L 03/25/2024 10:54 AM [facility] Hemoglobin 9.6(L) 11.9 - 15.8 g/dL 03/25/2024 10:54 AM [facility] Hematocrit 30.9(L) 34.8 - 46.1 % 03/25/2024 10:54 AM [facility] MCV 93.1 80.0 - 98.0 fL 03/25/2024 10:54 AM [facility] MCH 28.9 26.7 - 33.6 pg 03/25/2024 10:54 AM [facility] MCHC 31.1(L) 31.7 - 36.3 g/dL 03/25/2024 10:54 AM [facility] RDW-CV 15.5(H) 11.3 - 14.8 % 03/25/2024 10:54 AM [facility] Platelet Count 365 150 - 420 x10E9/L 03/25/2024 10:54 AM [facility] MPV 9.7 7.8 - 11.4 fL 03/25/2024 10:54 AM [facility] Neutrophil % 72.8 41.0 - 74.0 % 03/25/2024 10:54 AM [facility] Lymphocyte % 16.1(L) 17.0 - 47.0 % 03/25/2024 10:54 AM [facility] Monocyte % 7.5 3.0 - 11.0 % 03/25/2024 10:54 AM [facility] Eosinophil % 3.0 0.0 - 7.0 % 03/25/2024 10:54 AM [facility] Basophil % 0.3 0.0 - 1.6 % 03/25/2024 10:54 AM [facility] Immature Granulocytes % 0.3 0.0 - 1.0 % 03/25/2024 10:54 AM [facility] Neutrophil Absolute 6.64 1.60 - 7.50 x10E9/L 03/25/2024 10:54 AM [facility] Lymphocyte Absolute 1.47 1.00 - 4.40 x10E9/L 03/25/2024 10:54 AM [facility] Monocyte Absolute 0.68 0.15 - 1.00 x10E9/L 03/25/2024 10:54 AM [facility] Eosinophil Absolute 0.27 0.00 - 0.60 x10E9/L 03/25/2024 10:54 AM [facility] Basophil Absolute 0.03 0.00 - 0.13 x10E9/L 03/25/2024 10:54 AM [facility] Blood BLOOD SPECIMEN / Unknown Lab Venipuncture / Unknown 03/25/2024 10:32 AM [facility] 03/25/2024 10:44 AM [facility] Bethanie Benitez NETWORK INTELLIGENCE ANALYST-PHOTOGRAPHY COLORIST LAB - HEMATOLOGY ORDERABLES [facility] [address] [place] [phone], [facility] [phone] * (ABNORMAL) GLUCOSE - POINT OF CARE (03/24/2024 8:18 PM [facility]) Only the most recent of39 resultswithin the time period is included. Glucose WB/POC 123(H) 70 - 99 mg/dL 03/24/2024 8:22 PM [facility] Specimen Type Cap Fingerstick 2023 8:22 PM [facility] Blood BLOOD SPECIMEN / Unknown 03/24/2024 8:18 PM [facility] 03/24/2024 8:22 PM [facility] Lennie Anna MD LAB - POINT OF CARE ORDERABLES [address] [address], [facility] [phone] * (ABNORMAL) CALCIUM IONIZED WHOLE BLOOD (03/21/2024 2:12 AM [facility]) Only the most recent of9 resultswithin the time period is included. Pathologist [facility] Calcium Ionized 1.15 mmol/L 03/21/2024 2:42 AM [facility] pH 7.39 7.35 - 7.45 pH 03/21/2024 2:42 AM [facility] Ionized Calcium pH Adjusted 1.15(L) 1.19 - 1.34 mmol/L 03/21/2024 2:42 AM [facility] Blood BLOOD SPECIMEN / Unknown Lab Venipuncture / Unknown 03/21/2024 2:12 AM [facility] 03/21/2024 2:40 AM [facility] Lennie Anna MD LAB - CHEMISTRY ORDERABLES Performing Organization Address City/[facility]/ZIP Co de Phone Number [address] [address], [place] [phone] * XR Chest 1Vw Portable (03/19/2024 4:35 AM [facility]) Only the most recent of8 resultswithin the time period is included. Anatomical Region Laterality Modality Chest Digital Radiogra phy 03/19/2024 9:57 PM [facility] Impressions 03/19/2024 9:58 PM [facility] IMPRESSION: *Stable endotracheal tube and partially imaged enteric tube. Normal cardiomediastinal silhouette. Atherosclerotic aorta. No focal consolidation, pleural effusion, or pneumothorax. > Interpreting Provider: Argenis Morales MD on 03/19/2024 9:58 PM Narrative 03/19/2024 9:58 PM [facility] PROCEDURE: ??XR CHEST 1VW PORTABLE DATE/TIME OF [...] BLOOD CELL LEUKOREDUCED UNIT(S) (03/18/2024 3:24 AM [facility]) Lennie Anna MD NURSING - BLOOD PROD TRANSFUSION * PREPARE (CROSSMATCH) RBC UNIT(S), 1 Units (03/18/2024 1:34 AM [facility]) Unit Description AS1 LR PRBC [facility] Unit ABO O [facility] Unit Rh NEG [facility] Product Number R44 [facility] B LOOD B[facility] LAB Unit Donor # [id number] [facility] Unit Status transfused [facility] OD [facility] Product Code [id number] [facility] BLO OD [facility]ANK LAB Blood Type Barcode 9500 [facility] Expiration Date S BLOOD BANK LAB Blood Bank BLOOD SPECIMEN / Unknown 03/18/2024 12:43 AM [facility] Lennie Anna MD LAB - BLOOD BAN K ORDERABLES Performing Organization Address City/[facility]/ZIP Co de Phone Number [facility] [address] [place] [address], [facility] [phone] * TYPE + SCREEN PANEL (03/18/2024 12:35 AM [facility]) Only the most recent of2 resultswithin the time period is included. Antibody Screen NEG 1:25 AM [facility] ABO Rh O POS 03/18/2024 1:25 AM [facility] Blood Bank BLOOD SPECIMEN / Unknown Venipuncture / Unknown 03/18/2024 12:35 AM [facility] 03/18/2024 12:43 AM [facility] Lennie Anna MD LAB - BLOOD BAN K ORDERABLES Performing Organization Address City/[facility]/ZIP Co de Phone Number [facility] [address] [place] [address], [facility] [phone] * ECHO COMPLETE W CONTRAST (03/17/2024 11:33 AM [facility]) IVSd 2D 1.027 cm [facility] CV FUJ [...] Myocardial strain charge 2 [facility]less [facility] Anatomical Region Laterality Modality Ultrasound 03/17/2024 10:3 7 AM [facility] Narrative 03/17/2024 2:48 PM [facility] Summary ??* The left ventricle is normal [...] 1935 Gender: ? Female Accession #: ? [id number] Ht: ? 67 in Wt: ? 183 lb BSA: ? 2.00 m2 Exam Date: ? 03/17/2024 10:37 AM Patient Status: ? I/P Study Site: ? [facility] Primary Location: ? [facility] EStudy Info Technical Quality: ? Fair Exam Type: [...] Lennie Anna Attending Physician: ? Lennie Anna Pharmacy Informaticist: ? Ernesto Leigh Left Ventricle ??The left [...] ?35 % ? 27-45 LV EF (2D Teicholz) ? 64 % ? 54-74 Atria Name [...] of tamponade physiology. Patient Info Name: Emerald Villafana Age: 88 years : 1935 Gender: Female Ht: 67 in Wt: 183 lb BSA: 2.00 m2 Exam Date: 03/17/2024 10:37 AM Patient Status: I/P Study Site: [facility] Primary Location: [facility] EStudy Info Technical Quality: Fair Exam Type: ECHO [...] Provider: Lennie Anna Attending Physician: Lennie Anna Pharmacy Informaticist: Ernesto Leigh Left Ventricle The left ventricle [...] * CARDIAC EKG ORDER (03/16/2024 1:34 PM [facility]) Narrative 03/16/2024 1:34 PM [facility] Ordered by an unspecified provider. Scanned Document CARDIAC SERVICES ORD ERABLES * (ABNORMAL) BLOOD GASES ART + COOX PANEL (03/16/2024 1:37 AM [facility]) Only the most recent of4 resultswithin the time period is included. pH Arterial 7.41 7.35 - 7.45 pH 03/16/2024 1:44 AM [facility] pO2 Arterial 134(H) 80 - 100 mmHg 03/16/2024 1:44 AM [facility] pCO2 Arterial 34(L) 35 - 45 mmHg 1:44 AM [facility] HCO3 Arterial 21.6 20.0 - 30.0 mmol/L 03/16/2024 1:44 AM [facility] BE Arterial -2.7(L) -2.0 - 2.0 mmol/L 03/16/2024 1:44 AM [facility] Oxyhemoglobin Arterial 97.8 % 03/16/2024 1:44 AM [facility] Dexoyhemoglobin (HHB) % <1.0 % 03/16/2024 1:44 AM [facility] Methemoglobin 0.9 0.0 - 2.0 % 03/16/2024 1:44 AM [facility] Carboxyhemoglobin 1.2 0.0 - 2.0 % 2023 1:44 AM [facility] O2 Content Arterial 11.6 Interpret within clinical context ml/dL 03/16/2024 1:44 AM [facility] Hemoglobin by COOX 8.2(L) 12.0 - 15.6 g/dL 03/16/2024 1:44 AM [facility] O2 Saturation Arterial 100 90 - 100 % 03/16/2024 1:44 AM [facility] FI O2 Arterial 30.0 % 03/16/2024 1:44 AM [facility] Blood, arterial ARTERIAL BLOOD SPECIMEN / Unknown Arterial Puncture / Unknown 03/16/2024 1:37 AM [facility] 03/16/2024 1:40 AM [facility] - 03/16/2024 1:44 AM [facility] Carboxyhemoglobin Normal Concentration: Non-smokers: 0-2%; Smokers: 0-9%; Toxic: >20% Lennie Anna MD LAB - BLOOD GAS ES ORDERABLES Performing Organization Address City/[facility]/ZIP Co de Phone Number [address] [address], [facility] [phone] * (ABNORMAL) TROPONIN-I HIGH SENSITIVE REFLEX 1HOUR (03/15/2024 9:07 PM [facility]) Only the most recent of2 resultswithin the time period is included. [facility] Troponin I High Sensitive 19(H) <=14 ng/L 03/15/2024 9:51 PM [facility] Delta Troponin I HS 03/15/2024 9:51 PM [facility] Comment:Delta value intentio nuno not calculated. Baseline to 1 hour specimen collection interval exceeded. Blood BLOOD SPECIMEN / Unknown Venipuncture / Unknown 03/15/2024 9:07 PM [facility] 03/15/2024 9:14 PM [facility] Lennie Anna MD LAB - CHEMISTRY ORDERABLES [address] [address], [facility] [phone] * (ABNORMAL) TROPONIN-I HIGH SENSITIVE BASELINE + 1HR (03/15/2024 6:03 PM [facility]) Only the most recent of2 resultswithin the time period is included. [facility] Troponin I High Sensitive 17(H) <=14 ng/L 03/15/2024 6:54 PM [facility] Blood BLOOD SPECIMEN / Unknown Venipuncture / Unknown 03/15/2024 6:03 PM [facility] 03/15/2024 6:21 PM [facility] Lennie Anna MD LAB - CHEMISTRY ORDERABLES Performing Organization Address City/[facility]/ZIP Co de Phone Number [facility] [address] [place] [phone], [facility] [phone] * (ABNORMAL) TROPONIN-I HIGH SENSITIVE (03/15/2024 4:26 PM [facility]) Pathologist [facility] Troponin I High Sensitive 22(H) <=14 ng/L 03/15/2024 5:03 PM [facility] Blood BLOOD SPECIMEN / Unknown Venipuncture / Unknown 03/15/2024 4:26 PM [facility] 03/15/2024 4:33 PM [facility] eLnnie Anna MD LAB - CHEMISTRY ORDERABLES Performing Organization Address City/[facility]/ZIP Co de Phone Number [address] [address], [facility] [phone] * B-TYPE NATRIURETIC PEPTIDE (03/15/2024 4:26 PM [facility]) Only the most recent of2 resultswithin the time period is included. Pathologist [facility] BNP 50 <100 pg/mL 03/15/2024 5:04 PM [facility] Comment: A decision threshold of 100 pg/mL [...] Unknown Venipuncture / Unknown 03/15/2024 4:26 PM [facility] 03/15/2024 4:33 PM [facility] Lennie Anna MD LAB - CHEMISTRY ORDERABLES Performing Organization Address [facility] Co de Phone Number [facility] [address] [place] [address], [facility] [phone] * (ABNORMAL) COMPREHENSIVE METABOLIC PANEL (03/15/2024 4:26 PM [facility]) Only the most recent of3 resultswithin the time period is included. BUN 26 7 - 26 mg/dL 03/15/2024 4:59 PM [facility] Creatinine 1.16(H) 0.56 - 0.96 mg/dL 03/15/2024 4:59 PM [facility] Sodium 131(L) 136 - 145 mmol/L 03/15/2024 4:59 PM [facility] Potassium 3.8 3.5 - 4.5 mmol/L 03/15/2024 4:59 PM [facility] Chloride 107 98 - 107 mmol/L 03/15/2024 4:59 PM [facility] CO2 21(L) 22 - 29 mmol/L 03/15/2024 4:59 PM [facility] Glucose 155(H) 70 - 99 mg/dL 03/15/2024 4:59 PM [facility] Calcium 7.6(L) 8.4 - 10.2 mg/dL 03/15/2024 4:59 PM [facility] Protein Total 4.4(L) 6.0 - 8.3 g/dL 03/15/2024 4:59 PM [facility] Albumin 2.1(L) 3.4 - 5.0 g/dL 03/15/2024 4:59 PM [facility] Bilirubin Total 0.4 0.2 - 1.2 mg/dL 03/15/2024 4:59 PM [facility] Alkaline Phosphatase 44 40 - 150 U/L 03/15/2024 4:59 PM [facility] ALT 8 5 - 55 U/L 03/15/2024 4:59 PM [facility] AST 12 5 - 34 U/L 03/15/2024 4:59 PM [facility] Anion Gap 3(L) 6 - 16 03/15/2024 4:59 PM [facility] BUN/Creatinine Ratio 22 7 - 23 03/15/2024 4:59 PM [facility] Osmolality Calculated 280 275 - 295 mOsm/kg 03/15/2024 4:59 PM [facility] Albumin/Globulin Ratio 0.9(L) 1.1 - 2.3 03/15/2024 4:59 PM [facility] eGFR by CKD-EPI 46(L) >=90 mL/min/1.7 3 m2 03/15/2024 4:59 PM [facility] Blood BLOOD SPECIMEN / Unknown Venipuncture / Unknown 03/15/2024 4:26 PM [facility] 03/15/2024 4:33 PM [facility] Lennie Anna MD LAB - CHEMISTRY ORDERABLES Performing Organization Address [facility]/ZIP Co de Phone Number [facility] [address] [place] [address], [facility] [phone] * EKG 12-LEAD (03/15/2024 4:16 PM [facility]) Only the most recent of2 resultswithin the time period is included. Pathologist [facility] Ventricular Rate 76 BPM [facility] MUSE Atrial Rate 76 BPM [facility] MUSE P-R Interval 144 ms [facility] MUSE QRS Duration ms 76 ms [facility] MUSE Q-T Interval ms 428 ms [facility] MUSE QTC Calculation (Bezet) 481 ms [facility] MUSE Calculated P Kimberly 79 degrees [facility] MUSE Calculated R Kimberly 53 degrees [facility] MUSE Calculated T Kimberly -131 degrees [facility] MUSE Interpretation EKG SINUS RHYTHM WITH PREMATURE SUPRAVENTRICULAR COMPLEXES ST & T WAVE ABNORMALITY, CONSIDER INFERIOR ISCHEMIA ST & T WAVE ABNORMALITY, CONSIDER ANTEROLATERAL ISCHEMIA PROLONGED QT ABNORMAL ECG NO PREVIOUS ECGS AVAILABLE Confirmed by ARIELLE ALFARO MD ([id number]) on 03/17/2024 9:36:36 AM [facility] MUSE 03/15/2024 4:16 PM [facility] 03/17/2024 9:36 AM [facility] Lennie Anna MD ECG ORDERABLES Performing Organization Address [facility] Co de Phone Number [facility] MUSE * (ABNORMAL) BLOOD GASES VASILIY + COOX PANEL (03/15/2024 12:05 PM [facility]) Only the most recent of3 resultswithin the time period is included. Pathologist [facility] pH Venous 7.37 7.32 - 7.42 pH 03/15/2024 12:24 PM [facility] pO2 Venous 45(H) 35 - 40 mmHg 03/15/2024 12:24 PM [facility] pCO2 Venous 39(L) 40 - 50 mmHg 03/15/2024 12:24 PM [facility] HCO3 Venous 22.5 20 - 30 mmol/L 03/15/2024 12:24 PM [facility] Base Excess Venous -2.6(L) -2.0 - 2.0 mmol/L 03/15/2024 12:24 PM [facility] Oxyhemoglobin Venous 75.3 % 02/21 12:24 PM [facility] Deoxyhemoglobin (HHB) Venous % 22.7 % 03/15/2024 12:24 PM [facility] Methemoglobin 1.1 0.0 - 2.0 % 03/15/2024 12:24 PM [facility] Carboxyhemoglobin 0.9 0.0 - 2.0 % 2023 12:24 PM [facility] O2 Content Venous 8.6 Interpret within clinical context ml/dL 03/15/2024 12:24 PM [facility] Hemoglobin by COOX 8.1(L) 12.0 - 15.6 g/dL 03/15/2024 12:24 PM [facility] O2 Saturation Venous 77 >=70 % 02/21 12:24 PM [facility] FI O2 Mixed Venous 30.0 % 2023 12:24 PM [facility] Blood BLOOD SPECIMEN / Unknown Venipuncture / Unknown 03/15/2024 12:05 PM [facility] 03/15/2024 12:22 PM [facility] - 03/15/2024 12:24 PM [facility] Carboxyhemoglobin Normal Concentration: Non-smokers: 0-2%; Smokers: 0-9%; Toxic: >20% Lennie Anna MD LAB - BLOOD GAS ES ORDERABLES Performing Organization Address [facility]/State/[facility] Co de Phone Number [facility] [address] [place] [phone], [facility] [phone] * TRIGLYCERIDES BLOOD (03/15/2024 12:48 AM [facility]) Triglycerides 86 <150 mg/dL 03/15/2024 1:09 AM [facility] Comment: ATP III Classification of Triglycerides: ?<150 mg/dL: ??Normal ? 150 - 199 mg/dL: ??Borderline High ? 200 - 400 mg/dL: ??High ?>500 mg/dL: ??Very High Blood BLOOD SPECIMEN / Unknown Venipuncture / Unknown 03/15/2024 12:48 AM [facility] 03/15/2024 1:01 AM [facility] Luther Bridges MD LAB - CHEMISTRY NANCI LEÓN [facility] Organization Address City/State/ZIP Co de Phone Number [facility] [place] [id number] [place] [address], [facility] [phone] * XR Hand Left 2Vw (03/14/2024 9:53 PM [facility]) Anatomical Region Laterality Modality Wrist / Hand Digital Radiogra phy 03/15/2024 10:4 5 AM [facility] Impressions 03/16/2024 12:34 AM [facility] IMPRESSION: 1. No fracture. 2.Joint space narrowing, [...] be recommended. > Dictated by Viktor PUENTE [facility] (radiology physician). I, Todd Garcia MD have personally reviewed and interpreted this examination/study. > Interpreting Provider: Todd Garcia MD on 03/16/2024 12:34 AM Narrative 03/16/2024 12:34 AM [facility] EXAMINATION: XR HAND LEFT 2VW DATE/TIME OF EXAM: ??03/14/2024 9:56 PM, LOCATION ??[facility] HISTORY: W19.XXXA: Fall, initial encounter I60.9: Subarachnoid [...] DATE/TIME OF EXAM: 03/14/2024 9:56 PM, LOCATION [facility] HISTORY: [id number].XXXA: Fall, initial encounter I60.9: Subarachnoid bleed ([facility]) R41.82: Altered mental status, unspecified altered mental status type J96.90: Respiratory failure after trauma ([facility]) Z97.8: Endotracheal tube present S06.5XAA: Subdural hematoma ([facility]) R52: Acute pain Z74.09: Impaired mobility and [...] be recommended. > Dictated by Viktor PUENTE, [facility] (radiology physician). ITodd MD have personally reviewed and interpreted this examination/study. > Interpreting Provider: Todd Garcia MD on 03/16/2024 12:34 AM Lennie Anna MD DIAGNOSTIC IMAG ING ORDERABLES * (ABNORMAL) URINALYSIS REFLEX MICROSCOPIC REFLEX CULTURE (03/14/2024 9:51 PM [facility]) Color UA Yellow Straw, Yellow 03/14/2024 10:05 PM [facility] Clarity UA Clear Clear 03/14/2024 10:05 PM [facility] Specific [place] UA >1.060(H) 1.005 - 1.030 03/14/2024 10:05 PM [facility] pH UA 5.0 5.0 - 8.0 pH 03/14/2024 10:05 PM [facility] Protein UA Negative Negative 03/14/2024 10:05 PM [facility] Glucose UA Negative Negative 03/14/2024 10:05 PM [facility] Ketone UA Negative Negative 03/14/2024 10:05 PM [facility] Bilirubin UA Negative Negative 03/14/2024 10:05 PM [facility] Blood UA Negative Negative 03/14/2024 10:05 PM [facility] Nitrite UA Negative Negative 03/14/2024 10:05 PM [facility] Leukocyte Esterase Negative Negative 03/14/2024 10:05 PM [facility] Urobilinogen UA Negative Negative mg/dL 03/14/2024 10:05 PM [facility] Comment UA Microscopic not indicated. 03/14/2024 10:05 PM [facility] Urine URINE SPECIMEN OBTAINED VIA [facility]HE[facility] / Unknown Collection / Unknown 03/14/2024 9:51 PM [facility] 03/14/2024 9:56 PM [facility] - 03/14/2024 10:05 PM [facility] Lennie Anna MD LAB - URINALYSI S ORDERABLES Performing Organization Address [facility] Co de Phone Number [address] [address], [facility] [phone] * XR Hand Right 2Vw (03/14/2024 9:42 PM [facility]) Anatomical Region Laterality Modality Wrist / Hand Digital Radiogra phy 03/15/2024 10:4 0 AM [facility] Impressions 03/16/2024 12:33 AM [facility] IMPRESSION: 1. No fracture. 2. Joint space [...] be recommended. > Dictated by Viktor PUENTE [facility] (radiology physician). Todd Guzmán MD have personally reviewed and interpreted this examination/study. > Interpreting Provider: Todd Garcia MD on 03/16/2024 12:33 AM Narrative 03/16/2024 12:33 AM BEET TOPPER EXAMINATION: XR HAND RIGHT 2VW DATE/TIME OF EXAM: ??03/14/2024 9:55 PM, LOCATION ??[facility] HISTORY: W19.XXXA: Fall, initial encounter I60.9: Subarachnoid [...] DATE/TIME OF EXAM: 03/14/2024 9:55 PM, LOCATION [facility] HISTORY: W19.XXXA: Fall, initial encounter I60.9: Subarachnoid [...] radiographs would be recommended. > Dictated by Maliha Aldrich (radiology physician). Todd Guzmán MD have personally reviewed and interpreted this examination/study. 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 > Dictated by Maliha Aldrich (radiology physician). Todd Guzmán MD have personally reviewed and interpreted this examination/study. > Interpreting Provider: Todd Garcia MD on 03/16/2024 12:30 AM Narrative 03/16/2024 12:30 AM [facility] EXAMINATION: XR KNEE LEFT 2VW OR LESS DATE/TIME OF EXAM: ??03/14/2024 9:54 PM, LOCATION ??[facility] HISTORY: W19.XXXA: Fall, initial encounter I60.9: Subarachnoid bleed ([facility]) R41.82: Altered mental status, unspecified altered mental status type J96.90: Respiratory failure after trauma (HCC) Z97.8: Endotracheal tube present S06.5XAA: Subdural hematoma ([facility]) R52: Acute pain Z74.09: Impaired mobility and [...] DATE/TIME OF EXAM: 03/14/2024 9:54 PM, LOCATION [facility] HISTORY: W19.XXXA: Fall, initial encounter I60.9: Subarachnoid bleed (HCC) R41.82: Altered mental status, unspecified altered mental status type J96.90: Respiratory failure after trauma ([facility]) Z97.8: Endotracheal tube present S06.5XAA: Subdural hematoma ([facility]) R52: Acute pain Z74.09: Impaired mobility and ADLs Z78.9: Impaired mobility and ADLs T14.90XA: Trauma ecchymosis COMPARISON: No prior study is available for comparison. FINDINGS: Left total knee replacement. No periprosthetic fracture. No jointeffusion is seen. Bone density and texture are normal. No soft tissue swelling is present. 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 > Dictated by Maliha Aldrich (radiology physician). Todd Guzmán MD have personally reviewed and interpreted this examination/study. > Interpreting Provider: Todd Garcia MD on 03/16/2024 12:30 AM Lennie Anna MD DIAGNOSTIC IMAG ING ORDERABLES * XR Knee Right 2Vw or Less (03/14/2024 9:20 PM BEET [facility]PER) Anatomical Region Laterality Modality Lower Extremity Digital Radiogra phy 03/15/2024 10:3 6 AM [facility]PER Impressions 03/16/2024 12:30 AM [facility] IMPRESSION: No acute fracture or dislocation of knee identified.Intra-articular ossific densities within the right knee joint are indeterminate and could be degenerative. Right knee intercondylar view can be performed if clinically needed. > Dictated by Maliha Aldrich (radiology physician). Todd Guzmán MD have personally reviewed and interpreted this examination/study. > Interpreting Provider: Todd Garcia MD on 03/16/2024 12:30 AM Narrative 03/16/2024 12:30 AM [facility] EXAMINATION: XR KNEE RIGHT 2VW OR LESS DATE/TIME OF EXAM: ??03/14/2024 9:53 PM, LOCATION ??[facility] HISTORY: W19.XXXA: Fall, initial encounter I60.9: Subarachnoid [...] DATE/TIME OF EXAM: 03/14/2024 9:53 PM, LOCATION [facility] HISTORY: W19.XXXA: Fall, initial encounter I60.9: Subarachnoid [...] be performed ifclinically needed. > Dictated by SHIRAZ Aldrich (radiology physician). I, Todd Garcia MD have personally reviewed and interpreted this examination/study. > Interpreting Provider: Todd Garcia MD on 03/16/2024 12:30 AM Lennie Anna MD DIAGNOSTIC IMAG ING ORDERABLES * CT Angio Brain (03/14/2024 6:50 AM BEET [facility]PER) Anatomical Region Laterality Modality Head Computed Tomogra phy 03/14/2024 9:34 AM [facility]PER Impressions 03/14/2024 10:31 AM [facility]PER IMPRESSION: 1.Redemonstration of sequelae of TBI was [...] Interpreting Provider: Gabe Page MD on 03/14/2024 10:31 AM Narrative 03/14/2024 10:31 AM [facility] PROCEDURE: ??CT ANGIO BRAIN, DATE/TIME OF EXAM: ??03/14/2024 6:51 AM, LOCATION ??[facility] INDICATION: I60.9: Subarachnoid bleed (HCC) ADDITIONAL CLINICAL INFORMATION: Ordering Provider Reason For Exam: ?? SA[facility] Technologist Note: ??Does the patient have [...] DATE/TIME OF EXAM: 03/14/2024 6:51 AM, LOCATION [facility] INDICATION: I60.9: Subarachnoid bleed (HCC) ADDITIONAL CLINICAL [...] calcification of the carotid siphons and the [id number] of the vertebral arteries. No acute calvarial [...] * BLOOD TYPE VERIFICATION (03/14/2024 5:50 AM BEET [facility]PER) ABO Rh O POS 03/14/2024 6:3 1 AM [facility] B[facility]OD [facility] LAB Blood Bank BLOOD SPECIMEN / Unknown Venipuncture / Unknown 03/14/2024 5:50 AM [facility] 03/14/2024 5:59 AM BE[facility]PER Luther Bridges MD LAB - BLOOD BANK ORD ERABLES [facility] LAB [address] [place] [address], [place] [phone] * HEMOGLOBIN A1C (03/14/2024 5:50 AM BE[facility]PER) Hemoglobin A1c 5.0 <=5.6 % 03/14/2024 9:30 AM [facility] Estimated Average Glucose 97 mg/dL 03/14/2024 9:30 AM [facility] Comment: HbA1c Interpretation: Normal : < 5.7% Pre-diabetes: 5.7-6.4% Diabetes: Equal to or greater than 6.5% Test results diagnostic of diabetes should be repeated for confirmation. Treatment target values recommended by ADA and other clinical organizations should be used to evaluate metabolic control in patients. Reference: [place] [employer], Standards of Care in Diabetes -2020 In patients 70 years and older consider HbA1c target range of 7.0-7.5% (Reference: Wander Greene et al. JAMDA. 2012) The Sebia assay for the measurement of HbA1c is a National Glycohemoglobin Standardization Program (NGSP) certified method. Blood BLOOD SPECIMEN / Unknown Venipuncture / Unknown 03/14/2024 5:50 AM [facility] 03/14/2024 5:53 AM BE[facility]PER Lennie Anna MD LAB - CHEMISTRY ORDERABLES [facility] [address] [place] [address] [phone] * (ABNORMAL) URINE DRUG SCREEN IMMUNOASSAY (03/14/2024 5:23 AM [facility]) Pathologist [facility] Amphetamines Screen Urine Negative Negative : < 1000 ng/mL 03/14/2024 6:15 AM [facility] Barbiturates Screen Urine Negative Negative : < 200 ng/mL 03/14/2024 6:15 AM [facility] Benzodiazepine Screen Urine Negative Negative : < 200 ng/mL 03/14/2024 6:15 AM [facility] Opiates Urine Negative Negative : < 300 ng/mL 03/14/2024 6:15 AM [facility] Cocaine Metabolites Urine Negative Negative : < 300 ng/mL 03/14/2024 6:15 AM [facility] Phencyclidine Screen Urine Negative Negative : < 25 ng/ml 03/14/2024 6:15 AM [facility] Cannabinoids Screen Urine Negative Negative : <50 ng/mL 03/14/2024 6:15 AM [facility] Methadone Screen Urine Negative Negative : < 300 ng/mL 03/14/2024 6:15 AM [facility] Fentanyl Screen Urine Positive(A) Negative : <1.5 ng/mL 03/14/2024 6:15 AM [facility] Comment:Positive urine fenta nyl screening results should be confirmed by another generally accepted non-immunological method such as gas chromatography or mass spectrometry. Urine URINE / Unknown Collection / Unknown 03/14/2024 5:23 AM [facility] 03/14/2024 5:53 AM [facility] - 03/14/2024 6:15 AM [facility] The Urine Toxicology Screening Panel does not screen for Propoxyphene, Meprobamate, Carisoprodol, Trazodone, mbfd-qgp-kyogzzl medications and/or volatiles (Acetone, Isopropanol, Methanol or Ethylene Glycol). Ethanol, Salicylate, Acetaminophen, Tricyclic Antidepressants and several therapeutic drugs may be individually assayed in serum or plasma specimen. Toxicology testing by the [facility] is an aid to medical diagnosis and treatment of patients. No documented chain of custody was maintained. Results are intended to be used for clinical purposes only. ? Luther Bridges MD LAB - URINE CHEMISTR Y ORDERABLES Performing Organization Address [facility] de Phone Number [address] [address], [place] [phone] * (ABNORMAL) TEG 6 GLOBAL HEMOSTASIS W/ LYSIS (03/13/2024 11:48 PM BEET [facility]PER) Citrated Kaolin R (Reaction Time) 2.4(L) 4.6 - 9.1 min 03/14/2024 12:50 AM [facility] Comment:CK R result below no rmal range. Consistent with hypercoagulable clotting factors. Citrated Kaolin LY30 (Lysis) 0.0 0.0 - 2.6 % 03/14/2024 12:50 AM [facility] Citrated Functional Fibrinogen MA (Max Amplitude) 18.7 15.0 - 32.0 mm 03/14/2024 12:50 AM [facility] Citrated RapidTEG MA (Max Amplitude) 60.3 52.0 - 70.0 mm 03/14/2024 12:50 AM [facility] Blood BLOOD SPECIMEN / Unknown Venipuncture / Unknown 03/13/2024 11:48 PM [facility]PER 03/13/2024 11:53 PM BEET [facility]PER Luther Bridges MD LAB - HEMATOLOGY ORD ERABLES Performing Organization Address [facility] de Phone Number [facility] [address] [place] [address], [place] [phone] * (ABNORMAL) TEG 6S PLATELET MAPPING (03/13/2024 11:48 PM BEET [facility]PER) TEGPLM (Max Amplitude) Koalin 56.0 53.0 - 68.0 mm 03/14/2024 12:50 AM [facility] TEGPLM (Max Amplitude) ACTF 5.3 2.0 - 19.0 mm 03/14/2024 12:50 AM [facility] TEGPLM (Max Amplitude) ADP 11.8(L) 45.0 - 69.0 mm 03/14/2024 12:50 AM [facility] Comment:ADP MA below normal range. Inhibition present. TEGPLM (Max Amplitude) AA 10.4(L) 51.0 - 71.0 mm 03/14/2024 12:50 AM [facility] Comment:AA MA below normal r savannah. Inhibition present. TEGPLM %Inhibition ADP 87.2(H) 0.0 - 17.0 % 03/14/2024 12:50 AM [facility] TEGPLM %Inhibition AA 89.9(H) 0.0 - 11.0 % 03/14/2024 12:50 AM [facility] TEGPLM %Aggregation ADP 12.8(L) 83.0 - 100.0 % 03/14/2024 12:50 AM [facility] TEGPLM % Aggregation AA 10.1(L) 89.0 - 100.0 % 03/14/2024 12:50 AM [facility] Blood BLOOD SPECIMEN / Unknown Venipuncture / Unknown 03/13/2024 11:48 PM [facility] 03/13/2024 11:53 PM [facility]PER Luther Bridges MD LAB - HEMATOLOGY ORD ERABLES [address] [address], [facility] [phone] * XR Abdomen Kub Portable (03/13/2024 11:40 PM BEET TOPPER) Anatomical Region Laterality Modality Abdomen Digital Radiogra phy 03/14/2024 12:4 1 AM BE[facility]PER Narrative 03/14/2024 7:08 AM [facility] PROCEDURE: ??XR ABDOMEN KUB PORTABLE DATE/TIME OF EXAM: ??03/13/2024 11:41 PM Indication: W19.XXXA: Fall, initial encounter Additional History: COMPARISON: None. FINDINGS/IMPRESSION: An enteric tube is seen coursing below the diaphragm and coils in the gastric fundus with the tip projecting over the region of the fundus/GE junction. Report dictated by Jann Viera MD (radiology physician). Argenis Guzmán MD have personally reviewed and [...] junction. Report dictated by Jann Viera MD (radiology physician). Argenis Guzmán MD have personally reviewed and interpreted this examination/study. > Interpreting Provider: Argenis Morales MD on 03/14/2024 7:08 AM Luther Bridges MD DIAGNOSTIC IMAGING O RDERABLES * CT CHEST ABDOMEN PELVIS W CONT - Abdomen-pelvis trauma, blunt or penetrating (03/13/2024 10:49 PM BEET TOPPER) Anatomical Region Laterality Modality Chest, Abdomen, Pelvis Computed Tomography 03/13/2024 10:4 4 PM BE[facility]PER Impressions 03/14/2024 11:02 AM BEET [facility]PER Impression 1.An elongated area of low attenuation [...] on 03/13/2024. Report dictated by Darvin Santos MD(radiology physician). I, Yahir Queen MD have personally reviewed and interpreted this examination/study. > Interpreting Provider: Yahir Queen MD on 03/14/2024 11:02 AM Narrative 03/14/2024 11:02 AM [facility] PROCEDURE: ??CT CHEST ABDOMEN PELVIS W CONT, DATE/TIME OF EXAM: ??03/13/2024 10:50 PM, LOCATION ??[facility] INDICATION: Trauma ADDITIONAL CLINICAL INFORMATION: Ordering Provider Reason For Exam: Technologist Note: Additional: PROCEDURE: ??CT CHEST ABDOMEN PELVIS W CONT, DATE/TIME OF EXAM: 03/13/2024 10:50 PM, LOCATION ??[facility] INDICATION: Trauma COMPARISON: None. EXAMINATION: Computed tomography [...] CONT, DATE/TIME OF EXAM:03/13/2024 10:50 PM, LOCATION [facility] INDICATION: Trauma ADDITIONAL CLINICAL INFORMATION: Ordering Provider Reason For Exam: Technologist Note: Additional: PROCEDURE: CT CHEST ABDOMEN PELVIS W CONT, DATE/TIME OF EXAM: 03/13/2024 10:50 PM, LOCATION [facility] INDICATION: Trauma COMPARISON: None. EXAMINATION: Computed tomography [...] of the right hepatic lobe (series 4 [id number]). Differential includes a contusion or laceration, focal [...] on 03/13/2024. Report dictated by Darvin Santos MD(radiology physician). I, Yahir Queen MD have personally reviewed and interpreted this examination/study. 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 Report dictated by Jann Viera MD (radiology physician). Critical findings were discussed in detail with the patient's care provider, Dr. Samson by Dr. Viera via telephone at 11:34 PM on 03/13/2024 with readback comprehension and verification. IGabe MD have personally reviewed and interpreted this examination/study. > Interpreting Provider: Gabe Page MD on 03/14/2024 6:31 AM Narrative 03/14/2024 6:31 AM [facility] PROCEDURE: ??CT HEAD WO CONTRAST, CT FACIAL BONES WO CONTRAST, CT LUMBAR SPINE WO CONTRAST, CT THORACIC SPINE WO CONTRAST, CT CERVICAL SPINE WO CONTRAST, DATE/TIME OF EXAM: ??03/13/2024 10:50 PM, LOCATION ??[facility] INDICATION: Trauma EXAMINATION: 1. Computed tomography (CT) [...] DATE/TIME OF EXAM: 03/13/2024 10:50 PM, LOCATION [facility] INDICATION: Trauma EXAMINATION: 1. Computed tomography (CT) [...] findings. Report dictated by Jann Viera MD (radiology physician). 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 Report dictated by Jann Viera MD (radiology physician). Critical findings were discussed in detail with the patient's care provider, Dr. Samson by Dr. Viera via telephone at 11:34 PM on 03/13/2024 with readback comprehension and verification. I, Gabe Page MD have personally reviewed and interpreted this examination/study. > Interpreting Provider: Gabe Page MD on 03/14/2024 6:31 AM Narrative 03/14/2024 6:31 AM [facility] PROCEDURE: ??CT HEAD WO CONTRAST, CT FACIAL BONES WO CONTRAST, CT LUMBAR SPINE WO CONTRAST, CT THORACIC SPINE WO CONTRAST, CT CERVICAL SPINE WO CONTRAST, DATE/TIME OF EXAM: ??03/13/2024 10:50 PM, LOCATION ??[facility] INDICATION: Trauma EXAMINATION: 1. Computed tomography (CT) [...] DATE/TIME OF EXAM: 03/13/2024 10:50 PM, LOCATION [facility] INDICATION: Trauma EXAMINATION: 1. Computed tomography (CT) [...] findings. Report dictated by Jann Viera MD (radiology physician). 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 Report dictated by Jann Viera MD (radiology physician). Critical findings were discussed in detail with the patient's care provider, Dr. Samson by Dr. Viera via telephone at 11:34 PM on 03/13/2024 with readback comprehension and verification. IGabe MD have personally reviewed and interpreted this examination/study. > Interpreting Provider: Gabe Page MD on 03/14/2024 6:31 AM Narrative 03/14/2024 6:31 AM [facility] PROCEDURE: ??CT HEAD WO CONTRAST, CT FACIAL BONES WO CONTRAST, CT LUMBAR SPINE WO CONTRAST, CT THORACIC SPINE WO CONTRAST, CT CERVICAL SPINE WO CONTRAST, DATE/TIME OF EXAM: ??03/13/2024 10:50 PM, LOCATION ??[facility] INDICATION: Trauma EXAMINATION: 1. Computed tomography (CT) [...] DATE/TIME OF EXAM: 03/13/2024 10:50 PM, LOCATION [facility] INDICATION: Trauma EXAMINATION: 1. Computed tomography (CT) [...] findings. Report dictated by Jann Viera MD (radiology physician). 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 Report dictated by Jann Viera MD (radiology physician). Critical findings were discussed in detail with the patient's care provider, Dr. Samson by Dr. Viera via telephone at 11:34 PM on 03/13/2024 with readback comprehension and verification. I, Gabe Page MD have personally reviewed and interpreted this examination/study. > Interpreting Provider: Gabe Page MD on 03/14/2024 6:31 AM Narrative 03/14/2024 6:31 AM [facility] PROCEDURE: ??CT HEAD WO CONTRAST, CT FACIAL BONES WO CONTRAST, CT LUMBAR SPINE WO CONTRAST, CT THORACIC SPINE WO CONTRAST, CT CERVICAL SPINE WO CONTRAST, DATE/TIME OF EXAM: ??03/13/2024 10:50 PM, LOCATION ??[facility] INDICATION: Trauma EXAMINATION: 1. Computed tomography (CT) [...] DATE/TIME OF EXAM: 03/13/2024 10:50 PM, LOCATION [facility] INDICATION: Trauma EXAMINATION: 1. Computed tomography (CT) [...] findings. Report dictated by Jann Viera MD (radiology physician). Critical findings were discussed in detail with the patient's care provider, Dr. Samson by Dr. Viera via telephone at 11:34 PM on 03/13/2024with readback comprehension and verification. I, Gabe Page MD have personally reviewed and interpretedthis examination/study. > Interpreting Provider: Gabe Page MD on 03/14/2024 6:31 AM Lennie Anna MD CT ORDERABLES * PTT [facility] (03/13/2024 10:09 PM BEET [facility]PER) APTT 23.3 23.0 - 38.4 Seconds 03/13/2024 10:40 PM [facility] Comment:Suggested therapeuti c range for full dose I.V. unfractionated heparin therapy for venous thromboembolism is 71 to 109 seconds. Blood BLOOD SPECIMEN / Unknown Venipuncture / Unknown 03/13/2024 10:09 PM [facility]PER 03/13/2024 10:18 PM BEET [facility]PER Luther Bridges MD LAB - COAGULATION OR DERABLES Performing Organization Address [facility]/State/ZIP Co de Phone Number [facility] [address] [place] [address], [facility] [phone] * PT-INR [facility] (03/13/2024 10:09 PM BEET [facility]PER) Only the most recent of2 resultswithin the time period is included. PT 13.9 12.1 - 14.8 Seconds 03/13/2024 10:40 PM BEET [facility] INR 1.1 See Comment 03/13/2024 10:40 PM [facility] Comment:The suggested therap eutic range for standard coumadin (warfarin) therapy is an INR of 2.0-3.0. For high-risk patients (Mechanical Mitral Valve Prosthesis, etc.), the suggested prophylactic therapeutic range is an INR of 2.5-3.5. Blood BLOOD SPECIMEN / Unknown Venipuncture / Unknown 03/13/2024 10:09 PM [facility]ET [facility]PER 03/13/2024 10:18 PM BEET [facility]PER Luther Bridges MD LAB - COAGULATION OR DERABLES Performing Organization Address [facility]/ZIP Co de Phone Number [address] [address], [facility] [phone] * LIPASE BLOOD (03/13/2024 10:09 PM BEET [facility]PER) Lipase 14 8 - 78 U/L 03/13/2024 10:44 PM BE[facility] Blood BLOOD SPECIMEN / Unknown Venipuncture / Unknown 03/13/2024 10:09 PM BEET [facility]PER 03/13/2024 10:18 PM BEET [facility]PER [facility] - 03/13/2024 10:44 PM BEET [facility]PER Lipase results from the Alas Alinity analyzer may not be comparable with other methodologies. Luther Bridges MD LAB - CHEMISTRY ORDE RABLES Performing Organization Address City/[facility]/ZIP Co de Phone Number [address] [address], [facility] [phone] * ALCOHOL ETHYL BLOOD (03/13/2024 10:09 PM BEET [facility]PER) Ethanol (mg/dL) <10 <10 mg/dL 10:44 PM [facility] Ethanol Calculated (g/dL) <0.010 <=0.010 g/dL 03/13/2024 10:44 PM [facility] Blood BLOOD SPECIMEN / Unknown Venipuncture / Unknown 03/13/2024 10:09 PM BEET [facility]PER 03/13/2024 10:18 PM BEET [facility]PER [facility] - 03/13/2024 10:44 PM BE[facility]PER Ethanol Interp <10: None Detected. Depression of ETL ANALYST DEVELOPER: >100 mg/dl Potentially Critical: >250 mg/dl Potentially Fatal >400 mg/dl Ethanol in the patient's blood will contribute to the osmolar gap. Ethanol's contribution to the osmolar gap can be estimated by dividing the concentration of ethanol in mg/dL by 4.6. This test is for clinical use only and does not equal a SANDIE for legal purposes. Luther Bridges MD LAB - CHEMISTRY [place] [facility] [address] [place] [address], [facility] [phone] * Intubation (03/13/2024 10:10 AM BEET TOPPER) Narrative Luther Bridges MD - 03/13/2024 10:10 AM BEET [facility]PER Narinder Nevarez, DO ? 03/13/2024 11:02 PM Intubation Date/Time: 03/13/2024 10:10 AM Performed by: Narinder Nevarez, DO Authorized by: Luther Bridges MD ?? Consent: ??Consent obtained: ??Emergent situation Maskell protocol: ??Immediately prior to procedure, a time [...] 7 - 26 mg/dL 03/13/2024 10:21 AM [facility] Creatinine 1.01(H) 0.56 - 0.96 mg/dL 03/13/2024 10:21 AM [facility] Sodium 137 136 - 145 mmol/L 03/13/2024 10:21 AM [facility] Potassium 4.2 3.5 - 4.5 mmol/L 03/13/2024 10:21 AM [facility] Chloride 104 98 - 107 mmol/L 03/13/2024 10:21 AM [facility] CO2 25 22 - 29 mmol/L 03/13/2024 10:21 AM [facility] Glucose 127(H) 70 - 99 mg/dL 03/13/2024 10:21 AM [facility] Albumin 2.8(L) 3.4 - 5.0 g/dL 03/13/2024 10:21 AM [facility] Calcium 8.6 8.4 - 10.2 mg/dL 03/13/2024 10:21 AM [facility] Phosphorus 3.4 2.9 - 5.1 mg/dL 03/13/2024 10:21 AM [facility] Anion Gap 8 6 - 16 03/13/2024 10:21 AM [facility] BUN/Creatinine Ratio 18 7 - 23 03/13/2024 10:21 AM [facility] Osmolality Calculated 287 275 - 295 mOsm/kg 03/13/2024 10:21 AM [facility] eGFR by CKD-EPI 54(L) >=90 mL/min/1.7 3 m2 03/13/2024 10:21 [address] [facility] Blood BLOOD SPECIMEN / Unknown Lab Venipuncture / Unknown 03/13/2024 9:36 AM BEET [facility]PER 03/13/2024 9:50 AM BEET TOPPER Santos Gomez MD LAB - CHEMISTRY NANCI LEÓN [facility] [address] [place] [address], [facility] [phone] * Arterial Line (03/11/2024 6:00 PM BEET TOPPER) Narrative Carlos Ndiaye MD - 03/11/2024 6:00 PM BEET TOPPER Eddy Huntley, DO ? 03/11/2024 ??6:00 PM Arterial Line Date/Time: 03/11/2024 6:00 PM Performed by: Eddy Huntley, DO Authorized by: Santos Gomez MD ?? Consent: ??Consent obtained: ??Verbal ??Risks discussed: ??Bleeding, infection and pain Maskell protocol: ??Patient identity confirmed: ??Verbally with patient, [...] Santos Gomez MD PROCEDURE/MINOR SURG ICAL ORDERABLES from Last 3 Months Advance Directives * DNR - IF PULSELESS NO CPR, NO SHOCK (Latest Code Status on File) Date Activated Date Inactivated Comments 03/13/2024 11:32 PM 04/08/2024 5:42 PM Question Answer Comments : DO NOT discontinue a ny active orders without asking attending physician. * LIMITED RESUSCITATION-PRIOR AND AFTER ARREST Date Activated Date Inactivated Comments 03/11/2024 5:51 PM 03/13/2024 6:02 PM Question Answer Comments Limited Resuscitation: No Chest Compress ionNo Intubation, No Invasive VentilationNo Cardioversion, No Defibrilation, No External or Internal Pacemaker * DNR - IF PULSELESS NO CPR, NO SHOCK Date Activated Date Inactivated Comments 03/11/2024 5:38 PM 03/11/2024 5:51 PM Question Answer Comments : DO NOT discontinue a [place] active orders without asking attending physician. Healthcare Agents on File Name Relationship [facility] Tarah Dalton Daughter Power of Lapidarist (POA) Care Teams Director Of Knowledge Management Relationship Specialty Start Date End Date None, Physician [address] [place] [address] PCP - General 03/13/24 Ada Rahman APRN-PHOTOGRAPHY COLORIST [address] [place] [address] Nurse Practitioner Family 03/13/24
--- OUTSIDE RECORDS SUMMARY | 2024-05-01 13:44 | XMS_ITS | Clinical Summary ---
Author Organization [facility] Address [address] [place] [address] Care Team Providers Care Brass And Wind Instrument Repairer Name Role Phone None, Physician Primary Care Provider Liu Rahman Ada Sarah SOLE MOLDER-CAMP MAINTENANCE SUPERVISOR Unavailable [phone] Source Comments [facility],non-owned Affiliates and Associated Physician Practices is amultiple site organization consisting of ambulatory clinics and hospital sitesin [place], [place], [place] and [place]. This disclosure is being madepursuant to the Care Everywhere program and may not contain all information available regarding this patient. Last updated 18.[facility] Allergies Active Allergy Reactions Criticality Noted Date [...] Date Respiratory failure after trauma 03/13/2024 03/25/2024 Encounters Date Type Department Care Team Description 04/24/2024 Orders Only [facility] [address] [place] [id number] Pramod Soto MD SDH (subdural hematoma) (FORM[facility]LY [facility]) 03/15/2024 Travel 03/14/2024 Travel 03/13/2024 9:48 PM APPLICATION DEVELOPER MANAGER - 04/08/2024 4:15 PM [facility] Hospital Encounter [facility] [address] [place] [phone] Luther Bridges MD Stanley, Chad, MD Medintz, MD Arsenio Blancas, MD Brittany Pimentel Ryan, DO Internal Medicine Discharge Disposition: Rehab:Inpatient 03/11/2024 2:14 PM APPLICATION DEVELOPER MANAGER - 03/13/2024 5:01 PM [facility] Hospital Encounter [facility] 8S ACUTE [address] [place] [phone] Carlos Ndiaye MD Arora, Shilpkumar, MD Cardiovascular Disease Discharge Disposition: Floor Press Operator Acute Care 03/11/2024 Travel from Last 3 Months Immunizations Name Administration Dates Next Due TDAP [...] and heating? Not hard at all 03/28/2024 [facility] - Occupational Stress [...] any time in the past 12 m [facility], were you homeless or living in a group home (including now)? No 03/28/2024 Sex and Gender Information Value Date Recorded Sex Assigned at Not on file Gender Identity Not on file Sexual Orientation Not on file Last Filed Vital Signs Vital Sign Reading Time Taken Comments Blood Pressure 149/72 04/08/2024 7:42 AM APPLICATION DEVELOPER MANAGER Pulse 58 04/08/2024 7:42 AM APPLICATION DEVELOPER MANAGER Temperature 36.2 ??C (97.2 ??F) 04/08/2024 7:42 AM CS T Respiratory Rate 16 04/07/2024 11:30 PM APPLICATION DEVELOPER MANAGER Oxygen Saturation 98% 04/08/2024 3:57 PM APPLICATION DEVELOPER MANAGER Inhaled Oxygen Concentration 30% 03/19/2024 1 2:00 PM APPLICATION DEVELOPER MANAGER Weight 87.8 kg (193 lb 9.6 oz) 03/19/2024 4:00 A M APPLICATION DEVELOPER MANAGER Height 170.2 cm (5' 7 ) 03/14/2024 3:49 AM APPLICATION DEVELOPER MANAGER Body Mass Index 30.32 03/14/2024 3:49 AM APPLICATION DEVELOPER MANAGER Plan of Treatment Health Maintenance Due Date Last Done Comments BONE DENSITY TESTING 1935 MEDICARE AWV ? 12 MONTHS 1935 PNEUMOCOCCAL VACCINE 50+ (1 of 2 - PCV) 1955 ZOSTER VACCINE (1 of 2) 1986 Respiratory Syncytial Virus (RSV) Vaccine Pt: or over 60 yrs (1 - 1-dose 75+ series) 2011 COVID-19 VACCINE ( season) 2023 03/25/2021, 07/15/2020, 06/17/2020 INFLUENZA VACCINE (#1) 2023 3, 01/13/2021, 02/14/2018, Additional history exists DEPRESSION SCREENING 04/22/2024 DTAP/TDAP/TD VACCINES (2 - Td or Tdap) 03/13/2034 03/13/2024 HEPATITIS B VACCINE Aged Out No longe r eligible based on patient's age to complete this topic HIB VACCINE Aged Out No longer eligi ble based on patient's age to complete this topic HPV VACCINE Aged Out No longer eligi ble based on patient's age to complete this topic MENINGOCOCCAL (Group B) VACCINE Aged Out No longer eligible based on patient's age to complete this topic MENINGOCOCCAL VACCINE Aged Out No calderon isamar eligible based on patient's age to complete this topic Procedures Procedure Name Priority Date/Time Associated Diagnosis Comments PHOSPHORUS BLOOD Routine 04/06/2024 4:42 AM APPLICATION DEVELOPER MANAGER MAGNESIUM BLOOD Routine 04/06/2024 4:42 AM APPLICATION DEVELOPER MANAGER BASIC METABOLIC PANEL (CALCIUM TOTAL) Routine 04/06/2024 4:42 AM APPLICATION DEVELOPER MANAGER CBC W/O DIFFERENTIAL Routine 04/06/2024 4:42 AM APPLICATION DEVELOPER MANAGER CT HEAD WO CONTRAST STAT 04/04/2024 8 :02 PM APPLICATION DEVELOPER MANAGER Fall, initial encounter PHOSPHORUS BLOOD Routine 04/01/2024 7:50 PM APPLICATION DEVELOPER MANAGER MAGNESIUM BLOOD Routine 04/01/2024 7:50 PM APPLICATION DEVELOPER MANAGER BASIC METABOLIC PANEL (CALCIUM TOTAL) Routine 04/01/2024 7:50 PM APPLICATION DEVELOPER MANAGER CBC W/O DIFFERENTIAL Routine 04/01/2024 7:50 PM APPLICATION DEVELOPER MANAGER URINALYSIS REFLEX TO MICROSCOPIC NO CULTURE Routine 03/29/2024 1:31 PM APPLICATION DEVELOPER MANAGER PHOSPHORUS BLOOD STAT 03/25/2024 10:3 2 AM APPLICATION DEVELOPER MANAGER MAGNESIUM BLOOD STAT 03/25/2024 10:32 AM APPLICATION DEVELOPER MANAGER BASIC METABOLIC PANEL (CALCIUM TOTAL) STAT 03/25/2024 10:32 AM APPLICATION DEVELOPER MANAGER CBC W AUTO DIFFERENTIAL STAT 03/25/2024 10:32 AM APPLICATION DEVELOPER MANAGER GLUCOSE - POINT OF CARE Routine 03/24/2024 8:18 PM APPLICATION DEVELOPER MANAGER GLUCOSE - POINT OF CARE Routine 03/24/2024 4:53 PM APPLICATION DEVELOPER MANAGER GLUCOSE - POINT OF CARE Routine 03/24/2024 11:58 AM APPLICATION DEVELOPER MANAGER GLUCOSE - POINT OF CARE Routine 03/24/2024 8:05 AM APPLICATION DEVELOPER MANAGER GLUCOSE - POINT OF CARE Routine 03/24/2024 7:04 AM APPLICATION DEVELOPER MANAGER GLUCOSE - POINT OF CARE Routine 03/24/2024 12:25 AM APPLICATION DEVELOPER MANAGER GLUCOSE - POINT OF CARE Routine 03/23/2024 6:54 PM APPLICATION DEVELOPER MANAGER URINALYSIS REFLEX TO MICROSCOPIC NO CULTURE Routine 03/23/2024 6:27 PM APPLICATION DEVELOPER MANAGER CBC W AUTO DIFFERENTIAL Timed 03/23/2024 1:04 PM APPLICATION DEVELOPER MANAGER CBC W AUTO DIFFERENTIAL Timed 03/23/2024 2:15 AM APPLICATION DEVELOPER MANAGER GLUCOSE - POINT OF CARE Routine 03/22/2024 5:50 PM APPLICATION DEVELOPER MANAGER BASIC METABOLIC PANEL (CALCIUM TOTAL) AM Draw 03/22/2024 6:56 AM APPLICATION DEVELOPER MANAGER CBC W AUTO DIFFERENTIAL Timed 03/21/2024 11:40 PM APPLICATION DEVELOPER MANAGER GLUCOSE - POINT OF CARE Routine 03/21/2024 12:36 PM APPLICATION DEVELOPER MANAGER GLUCOSE - POINT OF CARE Routine 03/21/2024 6:18 AM APPLICATION DEVELOPER MANAGER CALCIUM IONIZED WHOLE BLOOD Timed 03/21/2024 2:12 AM APPLICATION DEVELOPER MANAGER MAGNESIUM BLOOD Timed 03/21/2024 2:12 AM APPLICATION DEVELOPER MANAGER PHOSPHORUS BLOOD Timed 03/21/2024 2:12 AM APPLICATION DEVELOPER MANAGER BASIC METABOLIC PANEL (CALCIUM TOTAL) Timed 03/21/2024 2:12 AM APPLICATION DEVELOPER MANAGER CBC W AUTO DIFFERENTIAL Timed 03/21/2024 2:12 AM APPLICATION DEVELOPER MANAGER GLUCOSE - POINT OF CARE Routine 03/21/2024 12:20 AM APPLICATION DEVELOPER MANAGER GLUCOSE - POINT OF CARE Routine 03/20/2024 5:42 PM APPLICATION DEVELOPER MANAGER GLUCOSE - POINT OF CARE Routine 03/20/2024 12:24 PM APPLICATION DEVELOPER MANAGER GLUCOSE - POINT OF CARE Routine 03/20/2024 5:08 AM APPLICATION DEVELOPER MANAGER GLUCOSE - POINT OF CARE Routine 03/20/2024 1:28 AM APPLICATION DEVELOPER MANAGER CALCIUM IONIZED WHOLE BLOOD Timed 03/20/2024 12:29 AM APPLICATION DEVELOPER MANAGER MAGNESIUM BLOOD Timed 03/20/2024 12:29 AM APPLICATION DEVELOPER MANAGER PHOSPHORUS BLOOD Timed 03/20/2024 12:2 9 AM APPLICATION DEVELOPER MANAGER BASIC METABOLIC PANEL (CALCIUM TOTAL) Timed 03/20/2024 12:29 AM APPLICATION DEVELOPER MANAGER CBC W AUTO DIFFERENTIAL Timed 03/20/2024 12:29 AM APPLICATION DEVELOPER MANAGER GLUCOSE - POINT OF CARE Routine 03/19/2024 6:51 PM APPLICATION DEVELOPER MANAGER GLUCOSE - POINT OF CARE Routine 03/19/2024 6:16 PM APPLICATION DEVELOPER MANAGER GLUCOSE - POINT OF CARE Routine 03/19/2024 1:09 PM APPLICATION DEVELOPER MANAGER GLUCOSE - POINT OF CARE Routine 03/19/2024 5:02 AM APPLICATION DEVELOPER MANAGER XR CHEST 1VW PORTABLE Routine 03/19/2024 4:35 AM APPLICATION DEVELOPER MANAGER Endotracheal tube present GLUCOSE - POINT OF CARE Routine 03/19/2024 12:00 AM APPLICATION DEVELOPER MANAGER CALCIUM IONIZED WHOLE BLOOD Timed 03/18/2024 11:58 PM APPLICATION DEVELOPER MANAGER MAGNESIUM BLOOD Timed 03/18/2024 11:58 PM APPLICATION DEVELOPER MANAGER PHOSPHORUS BLOOD Timed 03/18/2024 11:5 8 PM APPLICATION DEVELOPER MANAGER BASIC METABOLIC PANEL (CALCIUM TOTAL) Timed 03/18/2024 11:58 PM APPLICATION DEVELOPER MANAGER CBC W AUTO DIFFERENTIAL Timed 03/18/2024 11:58 PM APPLICATION DEVELOPER MANAGER GLUCOSE - POINT OF CARE Routine 03/18/2024 6:39 PM APPLICATION DEVELOPER MANAGER CBC W/O DIFFERENTIAL STAT 03/18/2024 3:42 PM APPLICATION DEVELOPER MANAGER GLUCOSE - POINT OF CARE Routine 03/18/2024 5:24 AM APPLICATION DEVELOPER MANAGER XR CHEST 1VW PORTABLE Routine 03/18/2024 4:20 AM APPLICATION DEVELOPER MANAGER Endotracheal tube present TRANSFUSE RED BLOOD CELL LEUKOREDUCED UNIT(S) Routine 03/18/2024 1:41 AM APPLICATION DEVELOPER MANAGER PREPARE RBC LEUKOREDUCED UNIT Routine 03/18/2024 1:34 AM APPLICATION DEVELOPER MANAGER TYPE + SCREEN PANEL Routine 03/18/2024 1 2:35 AM APPLICATION DEVELOPER MANAGER CBC W/O DIFFERENTIAL Routine 03/18/2024 12:35 AM APPLICATION DEVELOPER MANAGER CALCIUM IONIZED WHOLE BLOOD Timed 03/18/2024 12:01 AM APPLICATION DEVELOPER MANAGER MAGNESIUM BLOOD Timed 03/18/2024 12:01 AM APPLICATION DEVELOPER MANAGER PHOSPHORUS BLOOD Timed 03/18/2024 12:0 1 AM APPLICATION DEVELOPER MANAGER BASIC METABOLIC PANEL (CALCIUM TOTAL) Timed 03/18/2024 12:01 AM APPLICATION DEVELOPER MANAGER CBC W AUTO DIFFERENTIAL Timed 03/18/2024 12:01 AM APPLICATION DEVELOPER MANAGER GLUCOSE - POINT OF CARE Routine 03/17/2024 5:07 PM APPLICATION DEVELOPER MANAGER GLUCOSE - POINT OF CARE Routine 03/17/2024 12:07 PM APPLICATION DEVELOPER MANAGER ECHO COMPLETE W CONTRAST Routine 03/17/2024 11:33 AM APPLICATION DEVELOPER MANAGER Trauma GLUCOSE - POINT OF CARE Routine 03/17/2024 6:17 AM APPLICATION DEVELOPER MANAGER XR CHEST 1VW PORTABLE Routine 03/17/2024 4:36 AM APPLICATION DEVELOPER MANAGER Endotracheal tube present GLUCOSE - POINT OF CARE Routine 03/17/2024 12:50 AM APPLICATION DEVELOPER MANAGER CALCIUM IONIZED WHOLE BLOOD Timed 03/17/2024 12:50 AM APPLICATION DEVELOPER MANAGER MAGNESIUM BLOOD Timed 03/17/2024 12:50 AM APPLICATION DEVELOPER MANAGER PHOSPHORUS BLOOD Timed 03/17/2024 12:5 0 AM APPLICATION DEVELOPER MANAGER BASIC METABOLIC PANEL (CALCIUM TOTAL) Timed 03/17/2024 12:50 AM APPLICATION DEVELOPER MANAGER CBC W AUTO DIFFERENTIAL Timed 03/17/2024 12:50 AM APPLICATION DEVELOPER MANAGER GLUCOSE - POINT OF CARE Routine 03/16/2024 4:44 PM APPLICATION DEVELOPER MANAGER CARDIAC EKG ORDER 03/16/2024 1:3 4 PM APPLICATION DEVELOPER MANAGER GLUCOSE - POINT OF CARE Routine 03/16/2024 11:08 AM APPLICATION DEVELOPER MANAGER GLUCOSE - POINT OF CARE Routine 03/16/2024 11:07 AM APPLICATION DEVELOPER MANAGER GLUCOSE - POINT OF CARE Routine 03/16/2024 5:32 AM APPLICATION DEVELOPER MANAGER XR CHEST 1VW PORTABLE Routine 03/16/2024 3:46 AM APPLICATION DEVELOPER MANAGER Endotracheal tube present BLOOD GASES ART + COOX PANEL Routine 03/16/2024 1:37 AM APPLICATION DEVELOPER MANAGER CALCIUM IONIZED WHOLE BLOOD Timed 03/16/2024 1:37 AM APPLICATION DEVELOPER MANAGER MAGNESIUM BLOOD Timed 03/16/2024 1:37 AM APPLICATION DEVELOPER MANAGER PHOSPHORUS BLOOD Timed 03/16/2024 1:37 AM APPLICATION DEVELOPER MANAGER BASIC METABOLIC PANEL (CALCIUM TOTAL) Timed 03/16/2024 1:37 AM APPLICATION DEVELOPER MANAGER CBC W AUTO DIFFERENTIAL Timed 03/16/2024 1:37 AM APPLICATION DEVELOPER MANAGER GLUCOSE - POINT OF CARE Routine 03/16/2024 1:35 AM APPLICATION DEVELOPER MANAGER TROPONIN-I HIGH SENSITIVE REFLEX 1HOUR Timed 03/15/2024 9:07 PM APPLICATION DEVELOPER MANAGER TROPONIN-I HIGH SENSITIVE BASELINE + 1HR Routine 03/15/2024 6:03 PM APPLICATION DEVELOPER MANAGER GLUCOSE - POINT OF CARE Routine 03/15/2024 5:38 PM APPLICATION DEVELOPER MANAGER PHOSPHORUS BLOOD STAT 03/15/2024 4:53 PM APPLICATION DEVELOPER MANAGER MAGNESIUM BLOOD STAT 03/15/2024 4:53 PM APPLICATION DEVELOPER MANAGER CBC W/O DIFFERENTIAL STAT 03/15/2024 4:53 PM APPLICATION DEVELOPER MANAGER XR CHEST 1VW PORTABLE Routine 03/15/2024 4:40 PM APPLICATION DEVELOPER MANAGER Fall, initial encounter Subarachnoid bleed (HCC) Altered mental status, unspecified altered mental status type Respiratory failure after trauma (HCC) Endotracheal tube present Subdural hematoma (HCC) Acute pain Impaired mobility and ADLs Trauma COMPREHENSIVE METABOLIC PANEL STAT 03/15/2024 4:26 PM APPLICATION DEVELOPER MANAGER BLOOD GASES ART + COOX PANEL STAT 03/15/2024 4:26 PM APPLICATION DEVELOPER MANAGER B-TYPE NATRIURETIC PEPTIDE STAT 03/15/2024 4:26 PM APPLICATION DEVELOPER MANAGER TROPONIN-I HIGH SENSITIVE STAT 03/15/2024 4:26 PM APPLICATION DEVELOPER MANAGER EKG 12-LEAD Routine 03/15/2024 4:16 PM APPLICATION DEVELOPER MANAGER Fall, initial encounter Subarachnoid bleed (HCC) Altered mental status, unspecified altered mental status type Respiratory failure after trauma (HCC) Endotracheal tube present Subdural hematoma (HCC) Acute pain Impaired mobility and ADLs Trauma BLOOD GASES VASILIY + COOX PANEL Routine 03/15/2024 12:05 PM APPLICATION DEVELOPER MANAGER GLUCOSE - POINT OF CARE Routine 03/15/2024 12:03 PM APPLICATION DEVELOPER MANAGER GLUCOSE - POINT OF CARE Routine 03/15/2024 6:03 AM APPLICATION DEVELOPER MANAGER XR CHEST 1VW PORTABLE Routine 03/15/2024 5:09 AM APPLICATION DEVELOPER MANAGER Endotracheal tube present CALCIUM IONIZED WHOLE BLOOD Routine 03/15/2024 12:48 AM APPLICATION DEVELOPER MANAGER TRIGLYCERIDES BLOOD AM Draw 03/15/2024 1 2:48 AM APPLICATION DEVELOPER MANAGER BLOOD GASES ART + COOX PANEL STAT 03/15/2024 12:48 AM APPLICATION DEVELOPER MANAGER MAGNESIUM BLOOD Timed 03/15/2024 12:48 AM APPLICATION DEVELOPER MANAGER PHOSPHORUS BLOOD Timed 03/15/2024 12:4 8 AM APPLICATION DEVELOPER MANAGER BASIC METABOLIC PANEL (CALCIUM TOTAL) Timed 03/15/2024 12:48 AM APPLICATION DEVELOPER MANAGER CBC W AUTO DIFFERENTIAL Timed 03/15/2024 12:48 AM APPLICATION DEVELOPER MANAGER GLUCOSE - POINT OF CARE Routine 03/14/2024 11:20 PM APPLICATION DEVELOPER MANAGER XR HAND LEFT 2VW Routine 03/14/2024 9:53 PM APPLICATION DEVELOPER MANAGER Fall, initial encounter Subarachnoid bleed (HCC) Altered mental status, unspecified altered mental status type Respiratory failure after trauma (HCC) Endotracheal tube present Subdural hematoma (HCC) Acute pain Impaired mobility and ADLs Trauma URINALYSIS REFLEX MICROSCOPIC REFLEX CULTURE Routine 03/14/2024 9:51 PM APPLICATION DEVELOPER MANAGER XR HAND RIGHT 2VW Routine 03/14/2024 9:4 2 PM APPLICATION DEVELOPER MANAGER Fall, initial encounter Subarachnoid bleed (HCC) Altered mental status, unspecified altered mental status type Respiratory failure after trauma (HCC) Endotracheal tube present Subdural hematoma (HCC) Acute pain Impaired mobility and ADLs Trauma XR KNEE LEFT 2VW OR LESS Routine 03/14/2024 9:31 PM APPLICATION DEVELOPER MANAGER Fall, initial encounter Subarachnoid bleed (HCC) Altered mental status, unspecified altered mental status type Respiratory failure after trauma (HCC) Endotracheal tube present Subdural hematoma (HCC) Acute pain Impaired mobility and ADLs Trauma XR KNEE RIGHT 2VW OR LESS Routine 03/14/2024 9:20 PM APPLICATION DEVELOPER MANAGER Fall, initial encounter Subarachnoid bleed (HCC) Altered mental status, unspecified altered mental status type Respiratory failure after trauma (HCC) Endotracheal tube present Subdural hematoma (HCC) Acute pain Impaired mobility and ADLs Trauma CALCIUM IONIZED WHOLE BLOOD Timed 03/14/2024 6:46 PM APPLICATION DEVELOPER MANAGER BLOOD GASES VASILIY + COOX PANEL STAT 03/14/2024 6:46 PM APPLICATION DEVELOPER MANAGER GLUCOSE - POINT OF CARE Routine 03/14/2024 6:08 PM APPLICATION DEVELOPER MANAGER CBC W/O DIFFERENTIAL Routine 03/14/2024 6:05 PM APPLICATION DEVELOPER MANAGER CT HEAD WO CONTRAST Routine 03/14/2024 3 :03 PM APPLICATION DEVELOPER MANAGER Altered mental status, unspecified altered mental status type GLUCOSE - POINT OF CARE Routine 03/14/2024 11:39 AM APPLICATION DEVELOPER MANAGER CALCIUM IONIZED WHOLE BLOOD Routine 03/14/2024 9:29 AM APPLICATION DEVELOPER MANAGER BLOOD GASES VASILIY + COOX PANEL Routine 03/14/2024 9:29 AM APPLICATION DEVELOPER MANAGER CBC W/O DIFFERENTIAL STAT 03/14/2024 9:22 AM APPLICATION DEVELOPER MANAGER PHOSPHORUS BLOOD STAT 03/14/2024 7:49 AM APPLICATION DEVELOPER MANAGER MAGNESIUM BLOOD STAT 03/14/2024 7:49 AM APPLICATION DEVELOPER MANAGER BASIC METABOLIC PANEL (CALCIUM TOTAL) STAT 03/14/2024 7:49 AM APPLICATION DEVELOPER MANAGER BLOOD GASES ART + COOX PANEL STAT 03/14/2024 7:49 AM APPLICATION DEVELOPER MANAGER CT ANGIO BRAIN Routine 03/14/2024 6:50 AM APPLICATION DEVELOPER MANAGER Subarachnoid bleed (HCC) BLOOD TYPE VERIFICATION STAT 03/14/2024 5:50 AM APPLICATION DEVELOPER MANAGER HEMOGLOBIN A1C Routine 03/14/2024 5:50 AM APPLICATION DEVELOPER MANAGER URINE DRUG SCREEN IMMUNOASSAY STAT 03/14/2024 5:23 AM APPLICATION DEVELOPER MANAGER GLUCOSE - POINT OF CARE Routine 03/14/2024 5:13 AM APPLICATION DEVELOPER MANAGER TEG 6S PLATELET MAPPING STAT 03/13/2024 11:48 PM APPLICATION DEVELOPER MANAGER TEG 6 GLOBAL HEMOSTASIS W/ LYSIS STAT 03/13/2024 11:48 PM APPLICATION DEVELOPER MANAGER XR ABDOMEN KUB PORTABLE STAT 03/13/2024 11:40 PM APPLICATION DEVELOPER MANAGER Fall, initial encounter CT FACIAL BONES WO CONTRAST STAT 03/13/2024 10:49 PM APPLICATION DEVELOPER MANAGER Fall, initial encounter CT LUMBAR SPINE WO CONTRAST STAT 03/13/2024 10:49 PM APPLICATION DEVELOPER MANAGER Fall, initial encounter CT THORACIC SPINE WO CONTRAST STAT 03/13/2024 10:49 PM APPLICATION DEVELOPER MANAGER Fall, initial encounter CT CHEST ABDOMEN PELVIS W CONT STAT 03/13/2024 10:49 PM APPLICATION DEVELOPER MANAGER Fall, initial encounter CT CERVICAL SPINE WO CONTRAST STAT 03/13/2024 10:49 PM APPLICATION DEVELOPER MANAGER Fall, initial encounter CT HEAD WO CONTRAST STAT 03/13/2024 1 0:49 PM APPLICATION DEVELOPER MANAGER Fall, initial encounter XR CHEST 1VW PORTABLE STAT 03/13/2024 10:24 PM APPLICATION DEVELOPER MANAGER Fall, initial encounter TYPE + SCREEN PANEL STAT 03/13/2024 1 0:09 PM APPLICATION DEVELOPER MANAGER PTT SL[facility] STAT 03/13/2024 10:09 PM APPLICATION DEVELOPER MANAGER COMPREHENSIVE METABOLIC PANEL STAT 03/13/2024 10:09 PM APPLICATION DEVELOPER MANAGER PT-INR [facility] STAT 03/13/2024 10:09 PM APPLICATION DEVELOPER MANAGER LIPASE BLOOD STAT 03/13/2024 10:09 PM APPLICATION DEVELOPER MANAGER CBC W AUTO DIFFERENTIAL STAT 03/13/2024 10:09 PM APPLICATION DEVELOPER MANAGER ALCOHOL ETHYL BLOOD STAT 03/13/2024 1 0:09 PM APPLICATION DEVELOPER MANAGER ED INTUBATION Routine 03/13/2024 10:10 AM APPLICATION DEVELOPER MANAGER MAGNESIUM BLOOD Routine 03/13/2024 9:36 AM APPLICATION DEVELOPER MANAGER RENAL FUNCTION PANEL AM Draw 03/13/2024 9:36 AM APPLICATION DEVELOPER MANAGER CBC W/O DIFFERENTIAL AM Draw 03/13/2024 9:36 AM APPLICATION DEVELOPER MANAGER GLUCOSE - POINT OF CARE Routine 03/12/2024 6:37 AM APPLICATION DEVELOPER MANAGER MAGNESIUM BLOOD Routine 03/12/2024 3:30 AM APPLICATION DEVELOPER MANAGER RENAL FUNCTION PANEL AM Draw 03/12/2024 3:30 AM APPLICATION DEVELOPER MANAGER CBC W/O DIFFERENTIAL AM Draw 03/12/2024 3:30 AM APPLICATION DEVELOPER MANAGER ED ARTERIAL LINE INSERTION Routine 03/11/2024 6:00 PM APPLICATION DEVELOPER MANAGER TROPONIN-I HIGH SENSITIVE REFLEX 1HOUR Timed 03/11/2024 4:52 PM APPLICATION DEVELOPER MANAGER EKG 12-LEAD STAT 03/11/2024 2:42 PM APPLICATION DEVELOPER MANAGER Chest pain, unspecified type XR CHEST 1VW PORTABLE STAT 03/11/2024 2:38 PM APPLICATION DEVELOPER MANAGER Chest pain, unspecified type B-TYPE NATRIURETIC PEPTIDE STAT 03/11/2024 2:35 PM APPLICATION DEVELOPER MANAGER PT-INR [facility] STAT 03/11/2024 2:35 PM APPLICATION DEVELOPER MANAGER TROPONIN-I HIGH SENSITIVE BASELINE + 1HR STAT 03/11/2024 2:35 PM APPLICATION DEVELOPER MANAGER MAGNESIUM BLOOD STAT 03/11/2024 2:35 PM APPLICATION DEVELOPER MANAGER COMPREHENSIVE METABOLIC PANEL STAT 03/11/2024 2:35 PM APPLICATION DEVELOPER MANAGER CBC W AUTO DIFFERENTIAL STAT 03/11/2024 2:35 PM APPLICATION DEVELOPER MANAGER from Last 3 Months Results * (ABNORMAL) CBC W/O DIFFERENTIAL (04/06/2024 4:42 AM APPLICATION DEVELOPER MANAGER) Only the most recent of9 resultswithin the time period is included. [facility] WBC 7.4 4.0 - 10.7 x10E9/L 04/06/2024 5:34 AM APPLICATION DEVELOPER MANAGER [facility] RBC Count 3.34(L) 3.90 - 5.20 [...] Lab Venipuncture / Unknown 04/06/2024 4:42 AM APPLICATION DEVELOPER MANAGER 04/06/2024 5:20 AM [facility] Andre Cesar MD LAB - HEMATOLOGY ORDERABLES Performing Organization Address [facility]/State/ZIP Co de Phone Number [address] [address], [facility] [phone] * (ABNORMAL) BASIC METABOLIC PANEL (CALCIUM TOTAL) (04/06/2024 4:42 AM APPLICATION DEVELOPER MANAGER) Only the most recent of12 resultswithin the [...] Lab Venipuncture / Unknown 04/06/2024 4:42 AM APPLICATION DEVELOPER MANAGER 04/06/2024 5:17 AM APPLICATION DEVELOPER MANAGER Andre Cesar MD LAB - CHEMISTRY O RDERACAROLYN [address] [address], [place] [phone] * PHOSPHORUS BLOOD (04/06/2024 4:42 AM APPLICATION DEVELOPER MANAGER) Only the most recent of12 resultswithin the time period is included. Phosphorus 3.2 2.9 - 5.1 mg/dL 04/06/2024 5:45 AM [facility] Blood BLOOD SPECIMEN / Unknown Lab Venipuncture / Unknown 04/06/2024 4:42 AM APPLICATION DEVELOPER MANAGER 04/06/2024 5:17 AM APPLICATION DEVELOPER MANAGER Andre Cesar MD LAB - CHEMISTRY O RDERACAROLYN Performing Organization Address City/[facility]/ZIP Co de Phone Number [address] [address], [place] [phone] * MAGNESIUM BLOOD (04/06/2024 4:42 AM APPLICATION DEVELOPER MANAGER) Only the most recent of15 resultswithin the time period is included. Magnesium 2.2 1.6 - 2.6 mg/dL 04/06/2024 5:45 AM APPLICATION DEVELOPER MANAGER [facility] Blood BLOOD SPECIMEN / Unknown Lab Venipuncture / Unknown 04/06/2024 4:42 AM APPLICATION DEVELOPER MANAGER 04/06/2024 5:17 AM APPLICATION DEVELOPER MANAGER Andre Cesar MD LAB - CHEMISTRY O RDERABLES [facility] [address] [place] [id number], [facility] [phone] * CT Head Wo Contrast (04/04/2024 8:02 PM APPLICATION DEVELOPER MANAGER) Only the most recent of3 resultswithin the time period is included. Anatomical Region Laterality Modality Head Computed Tomogra phy 04/04/2024 8:30 PM APPLICATION DEVELOPER MANAGER Impressions 04/04/2024 11:36 PM APPLICATION DEVELOPER MANAGER IMPRESSION: 1.No new intracranial hemorrhage identified. 2.Interval near complete resolution of a small amount of subdural blood products along the left tentorial leaflet and subarachnoid blood products in the bilateral cerebral sulci and cerebral fissures. 3.Bilateral chronic subdural fluid collections are similar in maximum thickness, now decrease in density and now nearly isodense relative to CSF. Report dictated by Jann Viera MD (resident care associate). I, Gabe Page MD have personally reviewed and interpreted this examination/study. > Interpreting Provider: Gabe Page MD on 04/04/2024 11:36 PM Narrative 04/04/2024 11:36 PM APPLICATION DEVELOPER MANAGER PROCEDURE: ??CT HEAD WO CONTRAST, DATE/TIME OF EXAM: ??04/04/2024 8:03 PM, LOCATION ??[facility] INDICATION: W19.XXXA: Fall, initial encounter EXAMINATION: [...] DATE/TIME OF EXAM: 04/04/2024 8:03 PM, LOCATION [facility] INDICATION: W19.XXXA: Fall, initial encounter EXAMINATION: [...] toCSF. Report dictated by Jann Viera MD (resident care associate). I, Gabe Page MD have personally reviewed and interpretedthis examination/study. > Interpreting Provider: Gabe Page MD on 04/04/2024 11:36PM Isabella Elliott MD CT ORDERABLES * (ABNORMAL) URINALYSIS REFLEX TO MICROSCOPIC NO CULTURE (03/29/2024 1:31 PM APPLICATION DEVELOPER MANAGER) Only the most recent of2 resultswithin the time period is included. Color UA Yellow Straw, Yellow 03/29/2024 1:54 PM [facility] Clarity UA Turbid(A) Clear 03/29/2024 1:54 PM APPLICATION DEVELOPER MANAGER [facility] Specific [place] UA 1.012 1.005 - 1.030 03/29/2024 1:54 PM [facility] pH UA 8.0 5.0 - 8.0 pH 03/29/2024 1:54 PM [facility] Protein UA Negative Negative 03/29/2024 1:54 PM APPLICATION DEVELOPER MANAGER [facility] Glucose UA Negative Negative 03/29/2024 1:54 PM APPLICATION DEVELOPER MANAGER [facility] Ketone UA Negative Negative 03/29/2024 1:54 [...] Unknown Collection / Unknown 03/29/2024 1:31 PM APPLICATION DEVELOPER MANAGER 03/29/2024 1:31 PM [facility] - 03/29/2024 1:54 PM APPLICATION DEVELOPER MANAGER Dian Valera SOLE MOLDER-CAMP MAINTENANCE SUPERVISOR LAB - URINALYSIS ORDERABLES Performing Organization Address City/State/[facility] Co de Phone Number [address] [address], [facility] [phone] * (ABNORMAL) CBC W AUTO DIFFERENTIAL (03/25/2024 10:32 AM APPLICATION DEVELOPER MANAGER) Only the most recent of13 resultswithin the [...] Lab Venipuncture / Unknown 03/25/2024 10:32 AM APPLICATION DEVELOPER MANAGER 03/25/2024 10:44 AM APPLICATION DEVELOPER MANAGER Bethanie Benitez SOLE MOL[employer]CAMP MAINTENANCE SUPERVISOR LAB - HEMATOLOGY ORDERABLES [facility] [address] [place] [phone], [facility] [phone] * (ABNORMAL) GLUCOSE - POINT OF CARE (03/24/2024 8:18 PM APPLICATION DEVELOPER MANAGER) Only the most recent of39 resultswithin the time period is included. Glucose WB/POC 123(H) 70 - 99 mg/dL 03/24/2024 8:22 PM [facility] Specimen Type Cap Fingerstick 2023 8:22 PM [facility] Blood BLOOD SPECIMEN / Unknown 03/24/2024 8:18 PM APPLICATION DEVELOPER MANAGER 03/24/2024 8:22 PM APPLICATION DEVELOPER MANAGER Lennie Anna MD LAB - POINT OF CARE ORDERABLES [facility] [address] [place] [phone], [facility] [phone] * (ABNORMAL) CALCIUM IONIZED WHOLE BLOOD (03/21/2024 2:12 AM APPLICATION DEVELOPER MANAGER) Only the most recent of9 resultswithin the time period is included. Calcium Ionized 1.15 mmol/L 03/21/2024 2:42 AM [facility] pH 7.39 7.35 - 7.45 pH 03/21/2024 2:42 AM [facility] Ionized Calcium pH Adjusted 1.15(L) 1.19 - 1.34 mmol/L 03/21/2024 2:42 AM [facility] Blood BLOOD SPECIMEN / Unknown Lab Venipuncture / Unknown 03/21/2024 2:12 AM APPLICATION DEVELOPER MANAGER 03/21/2024 2:40 AM APPLICATION DEVELOPER MANAGER Lennie Anna MD LAB - CHEMISTRY ORDERABLES [facility] [address] [place] [phone], [facility] [phone] * XR Chest 1Vw Portable (03/19/2024 4:35 AM APPLICATION DEVELOPER MANAGER) Only the most recent of8 resultswithin the time period is included. Anatomical Region Laterality Modality Chest Digital Radiogra phy 03/19/2024 9:57 PM APPLICATION DEVELOPER MANAGER Impressions 03/19/2024 9:58 PM APPLICATION DEVELOPER MANAGER IMPRESSION: *Stable endotracheal tube and partially imaged enteric tube. Normal cardiomediastinal silhouette. Atherosclerotic aorta. No focal consolidation, pleural effusion, or pneumothorax. > Interpreting Provider: Argenis Morales MD on 03/19/2024 9:58 PM Narrative 03/19/2024 9:58 PM APPLICATION DEVELOPER MANAGER PROCEDURE: ??XR CHEST 1VW PORTABLE DATE/TIME OF [...] BLOOD CELL LEUKOREDUCED UNIT(S) (03/18/2024 3:24 AM APPLICATION DEVELOPER MANAGER) Lennie Anna MD NURSING - BLOOD PROD TRANSFUSION * PREPARE (CROSSMATCH) RBC UNIT(S), 1 Units (03/18/2024 1:34 AM APPLICATION DEVELOPER MANAGER) Unit Description AS1 LR PRBC [facility] Unit ABO O [facility] Unit Rh NEG [facility] Product Number R44 [facility] B[facility] Unit Donor # [id number] [facility] Unit Status transfused [facility] Product Code [id number] [facility] Blood Type Barcode 9500 [facility] Expiration Date [facility] Blood Bank BLOOD SPECIMEN / Unknown 03/18/2024 12:43 AM APPLICATION DEVELOPER MANAGER Lennie Anna MD LAB - BLOOD BAN K ORDERABLES Performing Organization Address City/[facility]/ZIP Co de Phone Number [facility] [address] [place] [address], [place] [phone] * TYPE + SCREEN PANEL (03/18/2024 12:35 AM APPLICATION DEVELOPER MANAGER) Only the most recent of2 resultswithin the time period is included. Pathologist [facility] Antibody Screen NEG 1:25 AM APPLICATION DEVELOPER MANAGER [facility] ABO Rh O POS 03/18/2024 1:25 AM APPLICATION DEVELOPER MANAGER [facility] Blood Bank BLOOD SPECIMEN / Unknown Venipuncture / Unknown 03/18/2024 12:35 AM APPLICATION DEVELOPER MANAGER 03/18/2024 12:43 AM APPLICATION DEVELOPER MANAGER Lennie Anna MD LAB - BLOOD BAN K ORDERABLES [facility] [address] [place] [address], [place] [phone] * ECHO COMPLETE W CONTRAST (03/17/2024 11:33 AM APPLICATION DEVELOPER MANAGER) IVSd 2D 1.027 cm SSM CV FUJ [...] Laterality Modality Ultrasound 03/17/2024 10:3 7 AM APPLICATION DEVELOPER MANAGER Narrative 03/17/2024 2:48 PM APPLICATION DEVELOPER MANAGER Summary ??* The left ventricle is normal [...] 1935 Gender: ? Female Accession #: ? [id number] Ht: ? 67 in Wt: ? 183 lb BSA: ? 2.00 m2 Exam Date: ? 03/17/2024 10:37 AM Patient Status: ? I/P Study Site: ? [facility] Primary Location: ? [facility] EStudy Info Technical Quality: ? Fair [...] Lennie Anna Attending Physician: ? Lennie Anna Wrecker Driver: ? Ernesto Leigh Left Ventricle ??The left [...] 10:37 AM Patient Status: I/P Study Site: [facility] Primary Location: [facility] Technical Quality: Fair Exam Type: ECHO COMPLETE [...] Provider: Lennie Anna Attending Physician: Lennie Anna Wrecker Driver: Ernesto Leigh Left Ventricle The left ventricle [...] * CARDIAC EKG ORDER (03/16/2024 1:34 PM APPLICATION DEVELOPER MANAGER) Narrative 03/16/2024 1:34 PM APPLICATION DEVELOPER MANAGER Ordered by an unspecified provider. Scanned Document CARDI[facility] SERVICES ORD ERABLES * (ABNORMAL) BLOOD GASES ART + COOX PANEL (03/16/2024 1:37 AM APPLICATION DEVELOPER MANAGER) Only the most recent of4 resultswithin the [...] Arterial Puncture / Unknown 03/16/2024 1:37 AM [facility] 03/16/2024 1:40 AM [facility] - 03/16/2024 1:44 AM [facility] Carboxyhemoglobin Normal Concentration: Non-smokers: 0-2%; Smokers: 0-9%; Toxic: >20% Lennie Anna MD LAB - BLOOD GAS ES ORDERABLES [facility] [address] [place] [phone], [facility] [phone] * (ABNORMAL) TROPONIN-I HIGH SENSITIVE REFLEX 1HOUR (03/15/2024 9:07 PM APPLICATION DEVELOPER MANAGER) Only the most recent of2 resultswithin the time period is included. Troponin I High Sensitive 19(H) <=14 ng/L 03/15/2024 9:51 PM [facility] Delta Troponin I HS 03/15/2024 9:51 PM [facility] Comment:Delta value intentio nuno not calculated. Baseline to 1 hour specimen collection interval exceeded. Blood BLOOD SPECIMEN / Unknown Venipuncture / Unknown 03/15/2024 9:07 PM APPLICATION DEVELOPER MANAGER 03/15/2024 9:14 PM APPLICATION DEVELOPER MANAGER Lennie Anna MD LAB - CHEMISTRY ORDERABLES Performing Organization Address City/[facility]/ZIP Co de Phone Number [address] [address], [place] [phone] * (ABNORMAL) TROPONIN-I HIGH SENSITIVE BASELINE + 1HR (03/15/2024 6:03 PM APPLICATION DEVELOPER MANAGER) Only the most recent of2 resultswithin the time period is included. Troponin I High Sensitive 17(H) <=14 ng/L 03/15/2024 6:54 PM APPLICATION DEVELOPER MANAGER [facility] Blood BLOOD SPECIMEN / Unknown Venipuncture / Unknown 03/15/2024 6:03 PM APPLICATION DEVELOPER MANAGER 03/15/2024 6:21 PM APPLICATION DEVELOPER MANAGER Lennie Anna MD LAB - CHEMISTRY ORDERABLES Performing Organization Address [facility]/ZIP Co de Phone Number [address] [address], [place] [phone] * (ABNORMAL) TROPONIN-I HIGH SENSITIVE (03/15/2024 4:26 PM APPLICATION DEVELOPER MANAGER) Troponin I High Sensitive 22(H) <=14 ng/L 03/15/2024 5:03 PM APPLICATION DEVELOPER MANAGER [facility] Blood BLOOD SPECIMEN / Unknown Venipuncture / Unknown 03/15/2024 4:26 PM APPLICATION DEVELOPER MANAGER 03/15/2024 4:33 PM APPLICATION DEVELOPER MANAGER Lennie Anna MD LAB - CHEMISTRY ORDERABLES [address] [address], [place] [phone] * B-TYPE NATRIURETIC PEPTIDE (03/15/2024 4:26 PM APPLICATION DEVELOPER MANAGER) Only the most recent of2 resultswithin the time period is included. [facility] BNP 50 <100 pg/mL 03/15/2024 5:04 PM APPLICATION DEVELOPER MANAGER [facility] Comment: A decision threshold of 100 [...] Unknown Venipuncture / Unknown 03/15/2024 4:26 PM APPLICATION DEVELOPER MANAGER 03/15/2024 4:33 PM APPLICATION DEVELOPER MANAGER Lennie Anna MD LAB - CHEMISTRY ORDERABLES [facility] [address] [place] [phone], [facility] [phone] * (ABNORMAL) COMPREHENSIVE METABOLIC PANEL (03/15/2024 4:26 PM APPLICATION DEVELOPER MANAGER) Only the most recent of3 resultswithin the time period is included. BUN 26 7 - 26 mg/dL 03/15/2024 4:59 PM [facility] Creatinine 1.16(H) 0.56 - 0.96 mg/dL 03/15/2024 [...] Unknown Venipuncture / Unknown 03/15/2024 4:26 PM APPLICATION DEVELOPER MANAGER 03/15/2024 4:33 PM APPLICATION DEVELOPER MANAGER Lennie Anna MD LAB - CHEMISTRY ORDERABLES [facility] [address] [place] [address], [facility] [phone] * EKG 12-LEAD (03/15/2024 4:16 PM APPLICATION DEVELOPER MANAGER) Only the most recent of2 resultswithin the time period is included. Ventricular Rate 76 BPM SL MUSE Atrial Rate 76 BPM [facility] P-R Interval 144 ms [facility] QRS Duration ms 76 ms [facility] Q-T Interval ms 428 ms [facility] QTC Calculation (Bezet) 481 ms [facility] Calculated P [place] 79 degrees [facility] M[facility] Calculated R [place] 53 degrees [facility] M[facility] Calculated T [place] -131 degrees [facility] Interpretation EKG SINUS RHYTHM WITH PREMATURE SUPRAVENTRICULAR COMPLEXES ST & T WAVE ABNORMALITY, CONSIDER INFERIOR ISCHEMIA ST & T WAVE ABNORMALITY, CONSIDER ANTEROLATERAL ISCHEMIA PROLONGED QT ABNORMAL ECG NO PREVIOUS ECGS AVAILABLE Confirmed by ARIELLE ALFARO MD ([id number]) on 03/17/2024 9:36:36 AM [facility] 03/15/2024 4:16 PM APPLICATION DEVELOPER MANAGER 03/17/2024 9:36 AM APPLICATION DEVELOPER MANAGER Lennie Anna MD ECG ORDERABLES [facility] * (ABNORMAL) BLOOD GASES VASILIY + COOX PANEL (03/15/2024 12:05 PM [facility]) Only the most recent of3 resultswithin the time period is included. pH Venous 7.37 7.32 - 7.42 pH 03/15/2024 12:24 PM [facility] pO2 Venous 45(H) 35 - 40 mmHg 03/15/2024 12:24 PM [facility] pCO2 Venous 39(L) 40 - 50 mmHg 03/15/2024 12:24 PM [facility] HCO3 Venous 22.5 20 - 30 mmol/L 03/15/2024 12:24 PM [facility] Base Excess Venous -2.6(L) -2.0 - 2.0 [...] Unknown Venipuncture / Unknown 03/15/2024 12:05 PM APPLICATION DEVELOPER MANAGER 03/15/2024 12:22 PM [facility] - 03/15/2024 12:24 PM [facility] Carboxyhemoglobin Normal Concentration: Non-smokers: 0-2%; Smokers: 0-9%; Toxic: >20% Lennie Anna MD LAB - BLOOD GAS ES ORDERABLES Performing Organization Address [facility] Co de Phone Number [address] [address], [facility] [phone] * TRIGLYCERIDES BLOOD (03/15/2024 12:48 AM APPLICATION DEVELOPER MANAGER) Triglycerides 86 <150 mg/dL 03/15/2024 1:09 AM APPLICATION DEVELOPER MANAGER [facility] Comment: ATP III Classification of Triglycerides: ?<150 mg/dL: ??Normal ? 150 - 199 mg/dL: ??Borderline High ? 200 - 400 mg/dL: ??High ?>500 mg/dL: ??Very High Blood BLOOD SPECIMEN / Unknown Venipuncture / Unknown 03/15/2024 12:48 AM APPLICATION DEVELOPER MANAGER 03/15/2024 1:01 AM APPLICATION DEVELOPER MANAGER Luther Bridges MD LAB - CHEMISTRY ORDE RABLES Performing Organization Address [facility] Co de Phone Number [address] [address], [facility] [phone] * XR Hand Left 2Vw (03/14/2024 9:53 PM APPLICATION DEVELOPER MANAGER) Anatomical Region Laterality Modality Wrist / Hand Digital Radiogra phy 03/15/2024 10:4 5 AM APPLICATION DEVELOPER MANAGER Impressions 03/16/2024 12:34 AM APPLICATION DEVELOPER MANAGER IMPRESSION: 1. No fracture. 2.Joint space narrowing, [...] be recommended. > Dictated by Viktor PUENTE [facility] (resident care associate). I, Todd Garcia MD have personally reviewed and interpreted this examination/study. > Interpreting Provider: Todd Garcia MD on 03/16/2024 12:34 AM Narrative 03/16/2024 12:34 AM APPLICATION DEVELOPER MANAGER EXAMINATION: XR HAND LEFT 2VW DATE/TIME OF EXAM: ??03/14/2024 9:56 PM, LOCATION ??[facility] HISTORY: W19.XXXA: Fall, initial encounter I60.9: [...] DATE/TIME OF EXAM: 03/14/2024 9:56 PM, LOCATION [facility] HISTORY: W19.XXXA: Fall, initial encounter I60.9: [...] be recommended. > Dictated by Viktor PUENTE [facility] (resident care associate). I, Todd Garcia MD have personally reviewed and interpreted this examination/study. > Interpreting Provider: Todd Garcia MD on 03/16/2024 12:34 AM Lennie Anna MD DIAGNOSTIC IMAG ING ORDERABLES * (ABNORMAL) URINALYSIS REFLEX MICROSCOPIC REFLEX CULTURE (03/14/2024 9:51 PM APPLICATION DEVELOPER MANAGER) Color UA Yellow Straw, Yellow 03/14/2024 10:05 PM [facility] Clarity UA Clear Clear 03/14/2024 10:05 PM [facility] Specific [place] UA >1.060(H) 1.005 - 1.030 03/14/2024 10:05 [...] Unknown Collection / Unknown 03/14/2024 9:51 PM APPLICATION DEVELOPER MANAGER 03/14/2024 9:56 PM [facility] - 03/14/2024 10:05 PM APPLICATION DEVELOPER MANAGER Lennie Anna MD LAB - URINALYSI S ORDERABLES [place] [address] [place] [address], [facility] [phone] * XR Hand Right 2Vw (03/14/2024 9:42 PM APPLICATION DEVELOPER MANAGER) Anatomical Region Laterality Modality Wrist / Hand Digital Radiogra phy 03/15/2024 10:4 0 AM APPLICATION DEVELOPER MANAGER Impressions 03/16/2024 12:33 AM APPLICATION DEVELOPER MANAGER IMPRESSION: 1. No fracture. 2. Joint space [...] be recommended. > Dictated by Viktor PUENTE [facility] (resident care associate). ITodd MD have personally reviewed and interpreted this examination/study. > Interpreting Provider: Todd Garcia MD on 03/16/2024 12:33 AM Narrative 03/16/2024 12:33 AM APPLICATION DEVELOPER MANAGER EXAMINATION: XR HAND RIGHT 2VW DATE/TIME OF EXAM: ??03/14/2024 9:55 PM, LOCATION ??[facility] HISTORY: W19.XXXA: Fall, initial encounter I60.9: Subarachnoid bleed (HCC) R41.82: Altered mental status, unspecified altered mental status type J96.90: Respiratory failure after trauma (HCC) Z97.8: Endotracheal tube present S06.5XAA: Subdural hematoma ([facility]) R52: Acute pain Z74.09: Impaired [...] DATE/TIME OF EXAM: 03/14/2024 9:55 PM, LOCATION [facility] HISTORY: W19.XXXA: Fall, initial encounter I60.9: [...] be recommended. > Dictated by Maliha Aldrich (resident care associate). Todd Guzmán MD have personally reviewed and interpreted this examination/study. 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 > Dictated by Maliha Aldrich (resident care associate). Todd Guzmán MD have personally reviewed and interpreted this examination/study. > Interpreting Provider: Todd Garcia MD on 03/16/2024 12:30 AM Narrative 03/16/2024 12:30 AM APPLICATION DEVELOPER MANAGER EXAMINATION: XR KNEE LEFT 2VW OR LESS DATE/TIME OF EXAM: ??03/14/2024 9:54 PM, LOCATION ??[facility] HISTORY: W19.XXXA: Fall, initial encounter I60.9: [...] DATE/TIME OF EXAM: 03/14/2024 9:54 PM, LOCATION [facility] HISTORY: W19.XXXA: Fall, initial encounter I60.9: [...] periprosthetic fracture. > Dictated by Viktor PUENTE [facility] (resident care associate). Todd Guzmán MD have personally reviewed and interpreted this examination/study. > Interpreting Provider: Todd Garcia MD on 03/16/2024 12:30 AM Lennie Anna MD DIAGNOSTIC IMAG ING ORDERABLES * XR Knee Right 2Vw or Less (03/14/2024 9:20 PM APPLICATION DEVELOPER MANAGER) Anatomical Region Laterality Modality Lower Extremity Digital Radiogra phy 03/15/2024 10:3 6 AM APPLICATION DEVELOPER MANAGER Impressions 03/16/2024 12:30 AM APPLICATION DEVELOPER MANAGER IMPRESSION: No acute fracture or dislocation of knee identified.Intra-articular ossific densities within the right knee joint are indeterminate and could be degenerative. Right knee intercondylar view can be performed if clinically needed. > Dictated by Viktor PUENTE [facility] (resident care associate). ITodd MD have personally reviewed and interpreted this examination/study. > Interpreting Provider: Todd Garcia MD on 03/16/2024 12:30 AM Narrative 03/16/2024 12:30 AM APPLICATION DEVELOPER MANAGER EXAMINATION: XR KNEE RIGHT 2VW OR LESS DATE/TIME OF EXAM: ??03/14/2024 9:53 PM, LOCATION ??[facility] HISTORY: W19.XXXA: Fall, initial encounter I60.9: [...] DATE/TIME OF EXAM: 03/14/2024 9:53 PM, LOCATION [facility] HISTORY: W19.XXXA: Fall, initial encounter I60.9: [...] performed ifclinically needed. > Dictated by Viktor PUENTE [facility] (resident care associate). I, Todd Garcia MD have personally reviewed and interpreted this examination/study. > Interpreting Provider: Todd Garcia MD on 03/16/2024 12:30 AM Lennie Anna MD DIAGNOSTIC IMAG ING ORDERABLES * CT Angio Brain (03/14/2024 6:50 AM APPLICATION DEVELOPER MANAGER) Anatomical Region Laterality Modality Head Computed Tomogra phy 03/14/2024 9:34 AM APPLICATION DEVELOPER MANAGER Impressions 03/14/2024 10:31 AM APPLICATION DEVELOPER MANAGER IMPRESSION: 1.Redemonstration of sequelae of TBI was [...] 03/14/2024 10:31 AM Narrative 03/14/2024 10:31 AM APPLICATION DEVELOPER MANAGER PROCEDURE: ??CT ANGIO BRAIN, DATE/TIME OF EXAM: ??03/14/2024 6:51 AM, LOCATION ??[facility] INDICATION: I60.9: Subarachnoid bleed (HCC) ADDITIONAL [...] DATE/TIME OF EXAM: 03/14/2024 6:51 AM, LOCATION [facility] INDICATION: I60.9: Subarachnoid bleed (HCC) ADDITIONAL CLINICAL INFORMATION: Ordering Provider Reason For Exam: Fu SAH Technologist Note: Does the patient have [...] calcification of the carotid siphons and the [id number] of the vertebral arteries. No acute calvarial [...] Provider: Gabe Page MD on 03/14/2024 10:31AM Lenine Anna MD CT ORDERABLES * BLOOD TYPE VERIFICATION (03/14/2024 5:50 AM APPLICATION DEVELOPER MANAGER) ABO Rh O POS 03/14/2024 6:3 1 AM APPLICATION DEVELOPER MANAGER [facility] Blood Bank BLOOD SPECIMEN / Unknown Venipuncture / Unknown 03/14/2024 5:50 AM APPLICATION DEVELOPER MANAGER 03/14/2024 5:59 AM APPLICATION DEVELOPER MANAGER Luther Bridges MD LAB - BLOOD BANK ORD ERABLES [facility] [address] [place] [address], [facility] [phone] * HEMOGLOBIN A1C (03/14/2024 5:50 AM APPLICATION DEVELOPER MANAGER) Hemoglobin A1c 5.0 <=5.6 % 03/14/2024 9:30 AM [facility] Estimated Average Glucose 97 mg/dL 03/14/2024 9:30 AM [facility] Comment: HbA1c Interpretation: Normal : < 5.7% Pre-diabetes: 5.7-6.4% Diabetes: Equal to or greater than 6.5% Test results diagnostic of diabetes should be repeated for confirmation. Treatment target values recommended by ADA and other clinical organizations should be used to evaluate metabolic control in patients. Reference: [place] [employer], Standards of Care in Diabetes -2020 In patients 70 years and older consider HbA1c target range of 7.0-7.5% (Reference: Wander Greene et al. JAMDA. 2012) The Sebia assay for the measurement of HbA1c is a National Glycohemoglobin Standardization Program (NGSP) certified method. Blood BLOOD SPECIMEN / Unknown Venipuncture / Unknown 03/14/2024 5:50 AM APPLICATION DEVELOPER MANAGER 03/14/2024 5:53 AM APPLICATION DEVELOPER MANAGER Lennie Anna MD LAB - CHEMISTRY ORDERABLES [facility] [address] [place] [address], [facility] [phone] * (ABNORMAL) URINE DRUG SCREEN IMMUNOASSAY (03/14/2024 5:23 AM [facility]) [facility] Amphetamines Screen Urine Negative Negative : < [...] Unknown Collection / Unknown 03/14/2024 5:23 AM APPLICATION DEVELOPER MANAGER 03/14/2024 5:53 AM APPLICATION DEVELOPER MANAGER Narrative [facility] - 03/14/2024 6:15 AM APPLICATION DEVELOPER MANAGER The Urine Toxicology Screening Panel does not screen for Propoxyphene, Meprobamate, Carisoprodol, Trazodone, ipou-cii-tsjkods medications and/or volatiles (Acetone, Isopropanol, Methanol or Ethylene Glycol). Ethanol, Salicylate, Acetaminophen, Tricyclic Antidepressants and several therapeutic drugs may be individually assayed in serum or plasma specimen. Toxicology testing by the [facility] is an aid to medical diagnosis and treatment of patients. No documented chain of custody was maintained. Results are intended to be used for clinical purposes only. ? Luther Bridges MD LAB - URINE CHEMISTR Y ORDERABLES Performing Organization Address [facility]/State/[facility] Co de Phone Number [facility] [address] [place] [address], [facility] [phone] * (ABNORMAL) TEG 6 GLOBAL HEMOSTASIS W/ LYSIS (03/13/2024 11:48 PM APPLICATION DEVELOPER MANAGER) Citrated Kaolin R (Reaction Time) 2.4(L) 4.6 [...] Unknown Venipuncture / Unknown 03/13/2024 11:48 PM APPLICATION DEVELOPER MANAGER 03/13/2024 11:53 PM APPLICATION DEVELOPER MANAGER Luther Bridges MD LAB - HEMATOLOGY ORD ERABLES [facility] [address] [place] [address], [facility] [phone] * (ABNORMAL) TEG 6S PLATELET MAPPING (03/13/2024 11:48 PM APPLICATION DEVELOPER MANAGER) TEGPLM (Max Amplitude) Koalin 56.0 53.0 - [...] 89.0 - 100.0 % 03/14/2024 12:50 AM APPLICATION DEVELOPER MANAGER [facility] Blood BLOOD SPECIMEN / Unknown Venipuncture / Unknown 03/13/2024 11:48 PM APPLICATION DEVELOPER MANAGER 03/13/2024 11:53 PM APPLICATION DEVELOPER MANAGER Luther Bridges MD LAB - HEMATOLOGY ORD ERABLES [facility] [address] [place] [address], [facility] [phone] * XR Abdomen Kub Portable (03/13/2024 11:40 PM APPLICATION DEVELOPER MANAGER) Anatomical Region Laterality Modality Abdomen Digital Radiogra phy 03/14/2024 12:4 1 AM APPLICATION DEVELOPER MANAGER Narrative 03/14/2024 7:08 AM APPLICATION DEVELOPER MANAGER PROCEDURE: ??XR ABDOMEN KUB PORTABLE DATE/TIME OF EXAM: ??03/13/2024 11:41 PM Indication: W19.XXXA: Fall, initial encounter Additional History: COMPARISON: None. FINDINGS/IMPRESSION: An enteric tube is seen coursing below the diaphragm and coils in the gastric fundus with the tip projecting over the region of the fundus/GE junction. Report dictated by Jann Viera MD (resident care associate). Argenis Guzmán MD have personally reviewed and [...] junction. Report dictated by Jann Viera MD (resident care associate). Argenis Guzmán MD have personally reviewed and interpreted this examination/study. > Interpreting Provider: Argenis Morales MD on 03/14/2024 7:08 AM Luther Bridges MD DIAGNOSTIC IMAGING O RDERABLES * CT CHEST ABDOMEN PELVIS W CONT - Abdomen-pelvis trauma, blunt or penetrating (03/13/2024 10:49 PM APPLICATION DEVELOPER MANAGER) Anatomical Region Laterality Modality Chest, Abdomen, Pelvis Computed Tomography 03/13/2024 10:4 4 PM APPLICATION DEVELOPER MANAGER Impressions 03/14/2024 11:02 AM APPLICATION DEVELOPER MANAGER Impression 1.An elongated area of low attenuation [...] on 03/13/2024. Report dictated by Darvin Santos MD(resident care associate). I, Yahir Queen MD have personally reviewed and interpreted this examination/study. > Interpreting Provider: Yahir Queen MD on 03/14/2024 11:02 AM Narrative 03/14/2024 11:02 AM APPLICATION DEVELOPER MANAGER PROCEDURE: ??CT CHEST ABDOMEN PELVIS W CONT, DATE/TIME OF EXAM: ??03/13/2024 10:50 PM, LOCATION ??[facility] INDICATION: Trauma ADDITIONAL CLINICAL INFORMATION: Ordering Provider Reason For Exam: Technologist Note: Additional: PROCEDURE: ??CT CHEST ABDOMEN PELVIS W CONT, DATE/TIME OF EXAM: 03/13/2024 10:50 PM, LOCATION ??[facility] INDICATION: Trauma COMPARISON: None. EXAMINATION: Computed [...] CONT, DATE/TIME OF EXAM:03/13/2024 10:50 PM, LOCATION [facility] INDICATION: Trauma ADDITIONAL CLINICAL INFORMATION: Ordering Provider Reason For Exam: Technologist Note: Additional: PROCEDURE: CT CHEST ABDOMEN PELVIS W CONT, DATE/TIME OF EXAM: 03/13/2024 10:50 PM, LOCATION [facility] INDICATION: Trauma COMPARISON: None. EXAMINATION: Computed [...] of the right hepatic lobe (series 4 [id number]). Differential includes a contusion or laceration, focal [...] on 03/13/2024. Report dictated by Darvin Santos MD(resident care associate). I, Yahir Queen MD have personally reviewed and interpreted this examination/study. 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 Report dictated by Jann Viera MD (resident care associate). Critical findings were discussed in detail with the patient's care provider, Dr. Samson by Dr. Viera via telephone at 11:34 PM on 03/13/2024 with readback comprehension and verification. I, Gabe Page MD have personally reviewed and interpreted this examination/study. > Interpreting Provider: Gabe Page MD on 03/14/2024 6:31 AM Narrative 03/14/2024 6:31 AM APPLICATION DEVELOPER MANAGER PROCEDURE: ??CT HEAD WO CONTRAST, CT FACIAL BONES WO CONTRAST, CT LUMBAR SPINE WO CONTRAST, CT THORACIC SPINE WO CONTRAST, CT CERVICAL SPINE WO CONTRAST, DATE/TIME OF EXAM: ??03/13/2024 10:50 PM, LOCATION ??[facility] INDICATION: Trauma EXAMINATION: 1. Computed tomography [...] DATE/TIME OF EXAM: 03/13/2024 10:50 PM, LOCATION [facility] INDICATION: Trauma EXAMINATION: 1. Computed tomography [...] findings. Report dictated by Jann Viera MD (resident care associate). Critical findings were discussed in detail with the patient's care provider, Dr. Samson by Dr. Viera via telephone at 11:34 PM on 03/13/2024with readback comprehension and verification. Gabe Guzmán MD have personally reviewed and interpretedthis examination/study. 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 Report dictated by Jann Viera MD (resident care associate). Critical findings were discussed in detail with the patient's care provider, Dr. Samson by Dr. Viera via telephone at 11:34 PM on 03/13/2024 with readback comprehension and verification. Gabe Guzmán MD have personally reviewed and interpreted this examination/study. > Interpreting Provider: Gabe Page MD on 03/14/2024 6:31 AM Narrative 03/14/2024 6:31 AM APPLICATION DEVELOPER MANAGER PROCEDURE: ??CT HEAD WO CONTRAST, CT FACIAL BONES WO CONTRAST, CT LUMBAR SPINE WO CONTRAST, CT THORACIC SPINE WO CONTRAST, CT CERVICAL SPINE WO CONTRAST, DATE/TIME OF EXAM: ??03/13/2024 10:50 PM, LOCATION ??[facility] INDICATION: Trauma EXAMINATION: 1. Computed tomography [...] DATE/TIME OF EXAM: 03/13/2024 10:50 PM, LOCATION [facility] INDICATION: Trauma EXAMINATION: 1. Computed tomography [...] findings. Report dictated by Jann Viera MD (resident care associate). 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 Report dictated by Jann Viera MD (resident care associate). Critical findings were discussed in detail with the patient's care provider, Dr. Samson by Dr. Viera via telephone at 11:34 PM on 03/13/2024 with readback comprehension and verification. I, Gabe Page MD have personally reviewed and interpreted this examination/study. > Interpreting Provider: Gabe Page MD on 03/14/2024 6:31 AM Narrative 03/14/2024 6:31 AM APPLICATION DEVELOPER MANAGER PROCEDURE: ??CT HEAD WO CONTRAST, CT FACIAL BONES WO CONTRAST, CT LUMBAR SPINE WO CONTRAST, CT THORACIC SPINE WO CONTRAST, CT CERVICAL SPINE WO CONTRAST, DATE/TIME OF EXAM: ??03/13/2024 10:50 PM, LOCATION ??[facility] INDICATION: Trauma EXAMINATION: 1. Computed tomography [...] Multiple simple renal cysts bilaterally. Procedure Note Mahmoud, Shamseldeen Y, MD - 03/14/2024 PROCEDURE: CT HEAD WO CONTRAST, CT FACIAL BONES WO CONTRAST, CT LUMBAR SPINE WO CONTRAST, CT THORACIC SPINE WO CONTRAST, CT CERVICAL SPINE WO CONTRAST, DATE/TIME OF EXAM: 03/13/2024 10:50 PM, LOCATION [facility] INDICATION: Trauma EXAMINATION: 1. Computed tomography [...] findings. Report dictated by Jann Viera MD (resident care associate). Critical findings were discussed in detail with the patient's care provider, Dr. Samson by Dr. Viera via telephone at 11:34 PM on 03/13/2024with readback comprehension and verification. Gabe Guzmán MD have personally reviewed and interpretedthis examination/study. 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 Report dictated by Jann Viera MD (resident care associate). Critical findings were discussed in detail with the patient's care provider, Dr. Samson by Dr. Viera via telephone at 11:34 PM on 03/13/2024 with readback comprehension and verification. Gabe Guzmán MD have personally reviewed and interpreted this examination/study. > Interpreting Provider: Gabe Page MD on 03/14/2024 6:31 AM Narrative 03/14/2024 6:31 AM APPLICATION DEVELOPER MANAGER PROCEDURE: ??CT HEAD WO CONTRAST, CT FACIAL BONES WO CONTRAST, CT LUMBAR SPINE WO CONTRAST, CT THORACIC SPINE WO CONTRAST, CT CERVICAL SPINE WO CONTRAST, DATE/TIME OF EXAM: ??03/13/2024 10:50 PM, LOCATION ??[facility] INDICATION: Trauma EXAMINATION: 1. Computed tomography [...] DATE/TIME OF EXAM: 03/13/2024 10:50 PM, LOCATION [facility] INDICATION: Trauma EXAMINATION: 1. Computed tomography [...] findings. Report dictated by Jann Viera MD (resident care associate). Critical findings were discussed in detail with the patient's care provider, Dr. Samson by Dr. Viera via telephone at 11:34 PM on 03/13/2024with readback comprehension and verification. I, Gabe Page MD have personally reviewed and interpretedthis examination/study. > Interpreting Provider: Gabe Page MD on 03/14/2024 6:31 AM Lennie Anna MD CT ORDERABLES * PTT [facility] (03/13/2024 10:09 PM APPLICATION DEVELOPER MANAGER) APTT 23.3 23.0 - 38.4 Seconds 03/13/2024 10:40 PM APPLICATION DEVELOPER MANAGER [facility] Comment:Suggested therapeuti c range for full dose I.V. unfractionated heparin therapy for venous thromboembolism is 71 to 109 seconds. Blood BLOOD SPECIMEN / Unknown Venipuncture / Unknown 03/13/2024 10:09 PM APPLICATION DEVELOPER MANAGER 03/13/2024 10:18 PM APPLICATION DEVELOPER MANAGER Luther Bridges MD LAB - COAGULATION OR DERABLES [facility] [address] [address], [facility] [phone] * PT-INR [facility] (03/13/2024 10:09 PM APPLICATION DEVELOPER MANAGER) Only the most recent of2 resultswithin the time period is included. [facility] PT 13.9 12.1 - 14.8 Seconds 03/13/2024 10:40 PM APPLICATION DEVELOPER MANAGER [facility] INR 1.1 See Comment 03/13/2024 10:40 PM [facility] Comment:The suggested therap eutic range for standard coumadin (warfarin) therapy is an INR of 2.0-3.0. For high-risk patients (Mechanical Mitral Valve Prosthesis, etc.), the suggested prophylactic therapeutic range is an INR of 2.5-3.5. Blood BLOOD SPECIMEN / Unknown Venipuncture / Unknown 03/13/2024 10:09 PM APPLICATION DEVELOPER MANAGER 03/13/2024 10:18 PM APPLICATION DEVELOPER MANAGER Luther Bridges MD LAB - COAGULATION OR DERABLES [address] [address], [facility] [phone] * LIPASE BLOOD (03/13/2024 10:09 PM APPLICATION DEVELOPER MANAGER) [facility] Lipase 14 8 - 78 U/L 03/13/2024 10:44 PM APPLICATION DEVELOPER MANAGER [facility] Blood BLOOD SPECIMEN / Unknown Venipuncture / Unknown 03/13/2024 10:09 PM APPLICATION DEVELOPER MANAGER 03/13/2024 10:18 PM APPLICATION DEVELOPER MANAGER Narrative [facility] - 03/13/2024 10:44 PM APPLICATION DEVELOPER MANAGER Lipase results from the Alas Alinity analyzer may not be comparable with other methodologies. Luther Bridges MD LAB - CHEMISTRY ORDE RABLES [address] [address], [facility] [phone] * ALCOHOL ETHYL BLOOD (03/13/2024 10:09 PM APPLICATION DEVELOPER MANAGER) [facility] Ethanol (mg/dL) <10 <10 mg/dL 10:44 PM [facility] Ethanol Calculated (g/dL) <0.010 <=0.010 g/dL 03/13/2024 10:44 PM [facility] Blood BLOOD SPECIMEN / Unknown Venipuncture / Unknown 03/13/2024 10:09 PM APPLICATION DEVELOPER MANAGER 03/13/2024 10:18 PM [facility] Narrative [facility] - 03/13/2024 10:44 PM [facility] Ethanol Interp <10: None Detected. Depression of GYM SUPERVISOR: >100 mg/dl Potentially Critical: >250 mg/dl Potentially Fatal >400 mg/dl Ethanol in the patient's blood will contribute to the osmolar gap. Ethanol's contribution to the osmolar gap can be estimated by dividing the concentration of ethanol in mg/dL by 4.6. This test is for clinical use only and does not equal a SANDIE for legal purposes. Luther Bridges MD LAB - CHEMISTRY [facility] Organization Address City/State/ZIP Co de Phone Number [facility] [address] [place] [address], [facility] [phone] * Intubation (03/13/2024 10:10 AM [facility]) Narrative Luther Bridges MD - 03/13/2024 10:10 AM APPLICATION DEVELOPER MANAGER Narinder Nevarez, DO ? 03/13/2024 11:02 PM Intubation Date/Time: 03/13/2024 10:10 AM Performed by: Narinder Nevarez, Authorized by: Luther Bridges MD ?? Consent: ??Consent obtained: ??Emergent situation [place] protocol: ??Immediately prior to procedure, a time [...] (ABNORMAL) RENAL FUNCTION PANEL (03/13/2024 9:36 AM RUST) Only the most recent of2 resultswithin the [...] >=90 mL/min/1.7 3 m2 03/13/2024 10:21 AM [facility] Blood BLOOD SPECIMEN / Unknown Lab Venipuncture / Unknown 03/13/2024 9:36 AM APPLICATION DEVELOPER MANAGER 03/13/2024 9:50 AM [facility] Santos Gomez MD LAB - CHEMISTRY NANCI LEÓN [facility] Organization Address City/State/[facility] Co de Phone Number [facility] [address] [place] [address], [facility] [phone] * Arterial Line (03/11/2024 6:00 PM [facility]UST) Narrative Carlos Ndiaye MD - 03/11/2024 6:00 PM APPLICATION DEVELOPER MANAGER Eddy Huntley, DO ? 03/11/2024 ??6:00 PM Arterial Line Date/Time: 03/11/2024 6:00 PM Performed by: Eddy Huntley, DO Authorized by: Santos Gomez MD ?? Consent: ??Consent obtained: ??Verbal ??Risks discussed: ??Bleeding, infection and pain [place] protocol: ??Patient identity confirmed: ??Verbally with patient, [...] Agents on File Name Relationship Healthcare Agent [facility] Communication Tarah Sha Daughter Power of Voice Writing Reporter (POA) Care Teams Brass And Wind Instrument Repairer Relationship Specialty Start Date End Date None, Physician [address] [place] [address] PCP - General 03/13/24 Ada Rahman, SOLE MOLDER-CAMP MAINTENANCE SUPERVISOR [address] [place] [address] Nurse Practitioner Family 03/13/24
--- OUTSIDE RECORDS SUMMARY | 2024-05-01 13:45 | XMS_ITS | Encounter Summary ---
Author Organization [facility] Address [address] [place] [address] Care Team Providers Care Freight Elevator Erector Name Role Phone None, Physician Primary Care Provider Liu Ada Parker TUBER MACHINE OPERATOR HELPER-REIMBURSEMENT COUNSELOR Unavailable [phone] Encounter Details Date Type Department Care Team (Latest Contact Info) Description 03/15/2024 Travel Social History Tobacco Use Types Packs/Day Years Used Date Smoking Tobacco: Unknown Alcohol Use Standard Drinks/Week Comments Not Asked [...] like food, housing, medical care, and heating? Patient unable to answer 03/14/2024 [facility] [place] [facility] Occupat ional Health - Occupational Stress Questionnaire Answer Date Recorded Do you feel stress - tense, restless, nervous, or anxious, or unable to sleep at night because your mind is troubled all the time - these days? Patient unable to answer 03/14/2024 Hunger Vital Sign Answer Date Recorded Within the past 12 months, y ou worried that your food would run out before you got the money to buy more. Patient unable to answer 03/14/2024 Within the past 12 months, t he food you bought just didn't last and you didn't have money to get more. Patient unable to answer 03/14/2024 PRAPARE - Transportation Answer Date Re corded In the past 12 months, has l ack of transportation kept you from medical appointments or from getting medications? Patient unable to answer 03/14/2024 In the past 12 months, has l ack of transportation kept you from meetings, work, or from getting things needed for daily living? Patient unable to answer 03/14/2024 Housing Stability Vital Sign Answer Dharmesh e Recorded In the last 12 months, was t here a time when you were not able to pay the mortgage or rent on time? Patient unable to answer 03/14/2024 In the past 12 months, how m any times have you moved where you were living? 1 03/14/2024 At any time in the past 12 m [facility], were you homeless or living in a jail (including now)? Patient unable to answer 03/14/2024 Sex and Gender Information Value Date Recorded Sex Assigned at Not on file Gender Identity Not on file Sexual Orientation Not on file documented as of this encounter Functional Status Functional Status Response Date of [...] person have difficulty concentrating/remembering/making decisions? Yes 03/14/2024 documented as of this encounter Plan of Treatment Not on file documented as of this encounter Visit Diagnoses Not on filedocumented in this encounter Care Teams Freight Elevator Erector Relationship Specialty Start Date End Date None, Physician [address] [place] [address] PCP - General 03/13/24 Ada Rahman, TUBER MACHINE OPERATOR HELPER-REIMBURSEMENT COUNSELOR [address] [place] [id number] Nurse Practitioner Family 03/13/24 documented as of this encounter
--- OUTSIDE RECORDS SUMMARY | 2024-05-01 13:45 | XMS_ITS | Encounter Summary ---
Author Organization [facility] Address [address] [place] [address] Care Team Providers Care Cleaning Supervisor Name Role Phone Ada Rahman Primary Care Provider Encounter Details Date Type Department Care Team (Latest Contact Info) Description 03/11/2024 Travel Social History Tobacco Use Types Packs/Day Years Used Date Smoking Tobacco: Former Cigarettes 1 30 1 954 - 04/22/1983 Alcohol Use Standard Drinks/Week Comments Never 0 (1 standard drink = 0.6 oz pur e alcohol) Sex and Gender Information Value Date Recorded Sex Assigned at Not on file Gender Identity Not on file Sexual Orientation Not on file documented as of this encounter Plan of Treatment Not on file documented as of this encounter Visit Diagnoses Not on filedocumented in this encounter Care Teams Cleaning Supervisor Relationship Specialty Start Date End Date Ada Rahman APRN-CNP [address] [place] [address] PCP - General Nurse Practitioner Family 03/11/24 documented as of this encounter
--- OUTSIDE RECORDS SUMMARY | 2024-05-01 13:45 | XMS_ITS | Encounter Summary ---
Author Organization [facility] Address [address] [place] [address] Care Team Providers Care Data Entry Operator Name Role Phone Ada Rahman HOUSEHOLD CHORES[employer]GBO[employer] CAPTAIN Primary Care Provider None, Physician Primary Care Provider Unavailabl e Ada Rahman HOUSEHOLD CHORES[employer]GBO[employer] CAPTAIN Unavailable [phone] Reason for Referral * Radiology Services (Routine) - Pending Review Specialty Diagnoses / Procedures Referred By Contac t Referred To Contact Diagnoses Penetrating atherosclerotic ulcer of aorta (HCC) Procedures CT Chest Abdomen Pelvis W Cont Feliciano Gomez MD [address] [facility] [address] [place] [address] Referral ID Status Reason Start Date Expiration Date V isits Requested Visits Authorized [id number] Pending Review 05/01/2024 05/01/2025 1 1 ORT WORKER * Evaluate & Treat (Routine) - Closed Specialty Diagnoses / Procedures Referred By Contac t Referred To Contact Cardiology Diagnoses Penetrating atherosclerotic ulcer of aorta (HCC) Feliciano Gomez MD [address] [facility] [address] [place] [address] [facility] [address] [facility] [address] [place] [address] Referral ID Status Reason Start Date Expiration Date V isits Requested Visits Authorized [id number] Closed Discharge Follow-up 03/13/2024 03/13/2025 1 1 Scheduling Instructions Please Schedule patient with Dr. Cobb in [place]. Patient will need another CT Scan in about 6-8 weeks. ORT WORKER Reason for Visit * Reason Comments Chest Pain BIBA from OSH due to pentrating aortic ulcer. Pt went to OSH due to chest pain. Denies any sx's att. Pt is a&O x 1-2. Hx of dementia. * Auth/Cert (Routine) Specialty Diagnoses / Procedures Referred By Contac t Referred To Contact Diagnoses penetrating aortic ulcer Referral ID Status Reason Start Date Expiration Date Visits Re quested Visits Authorized [id number] 1 1 Encounter Details Date Type Department Care Team (Late st Contact Info) Description 03/11/2024 2:14 PM SUPPORT WORKER - 03/13/2024 5:01 PM SUPPORT WORKER Hospital Encounter [facility] 8S ACUTE [address] [place] [address] Carlos Ndiaye MD [address] [place] [address] Feliciano Gomez MD [address] [facility] [address] [place] [address] Cardiovascular Disease Discharge Disposition: Sterilisation Technician Acute Care Social History Tobacco Use Types Packs/Day Years Used Date Smoking Tobacco: Former Cigarettes 1 30 1 954 - 04/22/1983 Alcohol Use Standard Drinks/Week Comments Never 0 (1 standard drink = 0.6 oz pur e alcohol) AUDIT-C Answer Date Recorded Q1: How often [...] and heating? Patient unable to answer 03/14/2024 [facility] - Occupational Stress Questionnaire Answer Date Recorded [...] any time in the past 12 [address] [facility], were you homeless or living in a detention (including now)? Patient unable to answer 03/14/2024 Sex and Gender Information Value Date Recorded Sex Assigned at Not on file Gender Identity Not on file Sexual Orientation Not on file documented as of this encounter Last Filed Vital Signs Vital Sign Reading Time Taken Comments Blood Pressure 105/82 03/13/2024 11:35 AM SUPPORT WORKER Pulse 90 03/13/2024 11:35 AM SUPPORT WORKER Temperature 36.7 ??C (98.1 ??F) 03/13/2024 11:[address] Respiratory Rate 18 03/13/2024 11:35 AM SUPPORT WORKER Oxygen Saturation 96% 03/13/2024 11:35 AM SUPPORT WORKER Inhaled Oxygen Concentration - - Weight 65.1 kg (143 lb 8.3 oz) 03/12/2024 4:00 A M SUPPORT WORKER Height 160 cm (5' 3 ) 03/11/2024 2:17 PM SUPPORT WORKER Body Mass Index 25.42 03/11/2024 2:17 PM SUPPORT WORKER documented in this encounter Functional Status Functional Status Response Date of Assess ment Is person deaf or have serious hearing difficult y? No 03/11/2024 Is person blind or have serious difficulty seein g? No 03/11/2024 Does person have serious dif ficulty walking/climbing stairs? Yes 03/11/2024 Does person have difficulty dressing/bathing? Ye s 03/11/2024 Does person have difficulty doing errands alone? Yes 03/11/2024 Cognitive Status Response Date of Assessm ent Does person have difficulty concentrating/remembering/making decisions? Yes 03/11/2024 documented as of this encounter Discharge Summaries * José King MD - 03/13/2024 2:46 PM CST [facility] INTERNAL MEDICINE DISCHARGE SUMMARY PATIENT: Emerald Villafana 88 year old female : 1935 ADMISSION INFORMATION ADMISSION DISCHARGE Date: 03/11/2024 Date: 03/13/2024 Admitting Physician Feliciano Gomez MD Discharge Physician: FELICIANO GOMEZ Present on Admission: Malignant hypertension Chest pain, unspecified type Penetrating atherosclerotic ulcer of aorta (HCC) Discharge Diagnoses: Penetrating Atherosclerotic Ulcer of the Aorta Admission Condition: stable Discharged Condition: stable Consults: Vascular surgery HOSPITAL COURSE Hospital Course: Emerald Villafana is 88 year old female with history of CAD s/p stent, dementia, COPD, HLD, HTN, GERDthat initially presented to OSH for right sided abdominal pain and chest pain radiating to left arm, transferred to [facility] on 03/11/2024 for higher level of care. History obtained by chart review and family at bedside as patient disoriented at baseline. At OSH, CT showed penetrating atherosclerotic ulcer with associated small intramural hematoma along the distal aortic arch. Transferred to [facility] ED. In ED, BP 186/101, HR 107, afebrile, sting well on room air. Labs significant for BNP 189, otherwise unremarkable. Vascular surgery consulted in ED, no plans for surgical intervention, recommend systolic BP goal <120 and HR <80. Received hydralazine 10mg IV, labetalol 5mg IV x1 and 10mg IV x2. Started on esmolol drip. Admitted to CCU. Patient intermittently answering questions appropriately. Endorsing chest pressure but no chest pain. States she does have abdominal pain sometimes but not currently. Patient was weaned off Esmolol and Nicardipine during ICU admission and was transitioned to PO Medications to meet SBP and HR Parameters. On reviewing the imaging, patient has a penetratingulcer, there is a chance of bleeding/dissection however the risk is low if patient is compliant with BP medications. The decision was made to control patient's BP with medications and follow up as outpatient for a repeat scan in 2 months. Family was present during admission and agreed and expressedunderstanding. Note to PCP (e.g. vitals, labs, imaging, medication start/stop, etc. to follow): Patient is to follow up with with Dr. Patricia Moreno as an outpatient and is to have a CT Scan Chest Abdomen Pelvis with Contrast to reassess if the penetrating ulcer has expanded in size. Significant Diagnostic Studies: Labs this admission: CBC: Recent Labs Lab 03/13/24 0936 03/12/24 0330 03/11/24 1435 WBC 7.5 7.2 7.9 HGB 13.0 11.9 13.5 HCT 40.5 37.0 42.0 MCV 92.9 93.4 92.7 PLTCOUNT 162 162 175 BMP: Recent Labs Lab 03/13/24 0936 03/12/24 0330 03/11/24 1435 NA 137 137 140 POTASSIUM 4.2 4.2 4.1 CL 104 110* 105 BUN 18 13 12 CREATININE 1.01* 0.86 0.92 CALCIUM 8.6 8.3* 8.7 CMP: Recent Labs Lab 03/13/24 0936 03/12/24 0330 03/11/24 1435 AST -- -- 12 ALT -- -- 8 TBILI -- -- 0.6 ALKPHOS -- -- 63 ALB 2.8* 2.6* 3.0* PROT -- -- 6.0 Coagulation: Recent Labs Lab Units 03/11/24 1435 PT Seconds 12.9 INR 1.0 Pertinent Microbiology: N/A Pending labs: N/A Imaging: (only include the pertinent ones) No results found. Discharge Exam: Vitals: BP 105/82 (BP Location: Left arm, Patient Position: Lying) Pulse 90 Temp 98.1 ??F (36.7 ??C) Resp 18 Ht 1.6 m (5' 3 ) Wt 65.1 kg (143 lb 8.3 oz) SpO2 96% General - NAD, afebrile, sitting comfortably in the bed eating food HEENT - NC/AT, EOMI, clear conjunctivae, throat without erythema or exudate, moist mucous membranes Neck - Supple, no LAD, no JVD Chest - CTAB no crackles or wheezes bilaterally CV - RRR no murmurs, radial and DP pulses 2/4, good capillary refill Abdomen - Soft, NT/ND, +BS, no organomegaly Musculoskeletal - Moves all four extremities Extremities - No c/c/e Skin - No rashes, lesions or jaundice Neurologic - A&O x 1-2, no focal neurological deficits DISCHARGE PLANNING Disposition: Assisted living Patient Instructions: Medication List START taking these medications aspirin 81 MG chew tablet Commonly known as: Aspirin Take 1 (one) tablet by mouth once daily Start taking on: March 14, 2024 atorvastatin 20 MG tablet Commonly known as: Lipitor Take 1 (one) tablet by mouth at bedtime carvedilol 25 MG tablet Commonly known as: Coreg Take 1 (one) tablet by mouth 2 times daily with morning and evening meal losartan 25 MG tablet Commonly known as: Cozaar Take 1 (one) tablet by mouth once daily Start taking on: March 14, 2024 CONTINUE taking these medications ascorbic acid 500 MG tablet Commonly known as: Vitamin C calcium carbonate 500 MG chew tablet Commonly known as: Tums cholestyramine 4 g packet Commonly known as: Questran FLUoxetine 20 MG capsule Commonly known as: PROzac hyoscyamine CR 12hr 0.375 MG tablet Commonly known as: Levbid lansoprazole 30 MG capsule Commonly known as: Prevacid loperamide 2 MG capsule Commonly known as: Imodium raloxifene 60 MG tablet Commonly known as: Evista Repatha 140 MG/ML prefilled syringe Generic drug: evolocumab traMADol 50 MG tablet Commonly known as: Ultram Where to Get Your Medications These medications were sent to [facility] [address] [facility] [id number] aspirin 81 MG chew tablet atorvastatin 20 MG tablet carvedilol 25 MG tablet losartan 25 MG tablet Discharge Instructions [facility] SUMMARY OF HOSPITALIZATION (03/11/2024 through 03/13/2024) Ms. Ledy Masters were transferred to [facility] on 03/11/2024 for higher level of care after presenting from outside hospital due to the CT Scan showing a penetrating atherosclerotic ulcer in the descending aorta. You were evaluated by vascular surgery who did not recommend surgery and pursued medical management. You were in the ICU to help control your Blood Pressure for a heart rate less than 80 and a systolic blood pressure less than 120 and were then transferred to the floors after weswitched your IV medications to [facility]. Please take all the blood pressure medications as prescribedas listed below. You will need to follow up with an outpatient ross carrier driver closely and will need to get another CT Scan in about 6-8 weeks to make sure the ulcer is not widening or worsening. Pleaseobtain a blood pressure cuff and check your blood pressure daily, we want your systolic blood pressure to be below 120 and heart rate to be close to 80; if you ever feel dizzy, light headed or are having balance issues please stop taking the medications and talk to your facilities medical professional about medication management. On 03/13/2024, we felt that you were ready for discharge from the hospital. ----- PLEASE NOTE THE FOLLOWING: Medications: Please take only the medications as described in the table below: Current Discharge Medication List START taking these medications Instructions Authorizing Provider aspirin 81 MG chew tablet Commonly known as: Aspirin Quantity Dispensed: 30 tablet Start taking on: March 14, 2024 Take 1 (one) tablet by mouth once daily José King atorvastatin 20 MG tablet Commonly known as: Lipitor Quantity Dispensed: 30 tablet Take 1 (one) tablet by mouth at bedtime José King carvedilol 25 MG tablet Commonly known as: Coreg Quantity Dispensed: 60 tablet Take 1 (one) tablet by mouth 2 times daily with morning and evening meal José King losartan 25 MG tablet Commonly known as: Cozaar Quantity Dispensed: 30 tablet Start taking on: March 14, 2024 Take 1 (one) tablet by mouth once daily José King CONTINUE taking these medications which have NOT CHANGED Instructions Authorizing Provider ascorbic acid 500 MG tablet Commonly known as: Vitamin C Take 1 (one) tablet by mouth once daily calcium carbonate 500 MG chew tablet Commonly known as: Tums Take 3 (three) tablets by mouth 2 times daily with morning and evening meal cholestyramine 4 g packet Commonly known as: Questran Take 1 (one) packet by mouth once daily FLUoxetine 20 MG capsule Commonly known as: PROzac Take 1 (one) capsule by mouth once daily hyoscyamine CR 12hr 0.375 MG tablet Commonly known as: Levbid Take 1 (one) tablet by mouth once daily lansoprazole 30 MG capsule Commonly known as: Prevacid Take 1 (one) capsule by mouth daily before breakfast loperamide 2 MG capsule Commonly known as: Imodium Take 1 (one) capsule by mouth as needed for Diarrhea raloxifene 60 MG tablet Commonly known as: Evista Take 1 (one) tablet by mouth once daily Repatha 140 MG/ML prefilled syringe Generic drug: evolocumab Inject 140 (one hundred forty) mg subcutaneously every 14 days traMADol 50 MG tablet Commonly known as: Ultram Take 1 (one) tablet by mouth every 6 hours as needed for Pain 3. Lifestyle Modifications: - Please AVOID smoking cigarettes. Please talk to your Primary Care Physician if you need help quitting smoking. - Please cut down on alcohol use. Please talk with your Primary Care Physician if you need help cutting down or quitting drinking alcohol. - Please maintain a healthy diet including fresh fruits & vegetables, low-salt food, and low-calorie food in order to help you lose weight and live a healthy lifestyle. - Discuss an exercise program with your Primary Care Physician. We recommended that most individuals exercise for 20 minutes at least 5 times per week 4. In the case of emergency: - Please call your physician or report to the nearest emergency room if you develop new or concerning symptoms, including, but not limited to, chest pain, palpitations, shortness of breath, nausea, vomiting, confusion, and/or numbness or tingling. Thank you for allowing us to participate in your care. Sincerely, [facility] phone number: Scheduling line phone number: Signed: José King MD Internal Medicine Resident [facility] 03/13/2024 2:46 PM ORT WORKER Associated attestation - Feliciano Gomez MD - 03/13/2024 3:21 PM SUPPORT WORKER I have seen and examined the patient with the resident and I agree with the findings and plan of care as documented by the resident. Date of service is the date in the resident's note. Lele Gomez MD MPH documented in this encounter Discharge Instructions * Discharge Instructions* José King MD - 03/13/2024 2:13 PM SUPPORT WORKER [facility] SUMMARY OF HOSPITALIZATION (03/11/2024 through 03/13/2024) Ms. Villafana You were transferred to [facility] on 03/11/2024 for higher level of care after presenting from outside hospital due to the CT Scan showing a penetrating atherosclerotic ulcer in the descending aorta. You were evaluated by vascular surgery who did not recommend surgery and pursued medical management. You were in the ICU to help control your Blood Pressure for a heart rate less than 80 and a systolic blood pressure less than 120 and were then transferred to the floors after weswitched your IV medications to [facility]. Please take all the blood pressure medications as prescribedas listed below. You will need to follow up with an outpatient ross carrier driver closely and will need to get another CT Scan in about 6-8 weeks to make sure the ulcer is not widening or worsening. Pleaseobtain a blood pressure cuff and check your blood pressure daily, we want your systolic blood pressure to be below 120 and heart rate to be close to 80; if you ever feel dizzy, light headed or are having balance issues please stop taking the medications and talk to your facilities medical professional about medication management. On 03/13/2024, we felt that you were ready for discharge from the hospital. ----- PLEASE NOTE THE FOLLOWING: Medications: Please take only the medications as described in the table below: Current Discharge Medication List START taking these medications Instructions Authorizing Provider aspirin 81 MG chew tablet Commonly known as: Aspirin Quantity Dispensed: 30 tablet Start taking on: March 14, 2024 Take 1 (one) tablet by mouth once daily José King atorvastatin 20 MG tablet Commonly known as: Lipitor Quantity Dispensed: 30 tablet Take 1 (one) tablet by mouth at bedtime José King carvedilol 25 MG tablet Commonly known as: Coreg Quantity Dispensed: 60 tablet Take 1 (one) tablet by mouth 2 times daily with morning and evening meal José King losartan 25 MG tablet Commonly known as: Cozaar Quantity Dispensed: 30 tablet Start taking on: March 14, 2024 Take 1 (one) tablet by mouth once daily José King CONTINUE taking these medications which have NOT CHANGED Instructions Authorizing Provider ascorbic acid 500 MG tablet Commonly known as: Vitamin C Take 1 (one) tablet by mouth once daily calcium carbonate 500 MG chew tablet Commonly known as: Tums Take 3 (three) tablets by mouth 2 times daily with morning and evening meal cholestyramine 4 g packet Commonly known as: Questran Take 1 (one) packet by mouth once daily FLUoxetine 20 MG capsule Commonly known as: PROzac Take 1 (one) capsule by mouth once daily hyoscyamine CR 12hr 0.375 MG tablet Commonly known as: Levbid Take 1 (one) tablet by mouth once daily lansoprazole 30 MG capsule Commonly known as: Prevacid Take 1 (one) capsule by mouth daily before breakfast loperamide 2 MG capsule Commonly known as: Imodium Take 1 (one) capsule by mouth as needed for Diarrhea raloxifene 60 MG tablet Commonly known as: Evista Take 1 (one) tablet by mouth once daily Repatha 140 MG/ML prefilled syringe Generic drug: evolocumab Inject 140 (one hundred forty) mg subcutaneously every 14 days traMADol 50 MG tablet Commonly known as: Ultram Take 1 (one) tablet by mouth every 6 hours as needed for Pain 3. Lifestyle Modifications: - Please AVOID smoking cigarettes. Please talk to your Primary Care Physician if you need help quitting smoking. - Please cut down on alcohol use. Please talk with your Primary Care Physician if you need help cutting down or quitting drinking alcohol. - Please maintain a healthy diet including fresh fruits & vegetables, low-salt food, and low-calorie food in order to help you lose weight and live a healthy lifestyle. - Discuss an exercise program with your Primary Care Physician. We recommended that most individuals exercise for 20 minutes at least 5 times per week 4. In the case of emergency: - Please call your physician or report to the nearest emergency room if you develop new or concerning symptoms, including, but not limited to, chest pain, palpitations, shortness of breath, nausea, vomiting, confusion, and/or numbness or tingling. Thank you for allowing us to participate in your care. Sincerely, [facility] phone number: Scheduling line phone number: ORT WORKER documented in this encounter Medications at Time of Discharge Medication Sig Dispensed Refills Start Date End Date acetaminophen (Tylenol) 325 MG tablet Take 2 (two) tablets by mouth every 4 hours as needed Maximum allowable Acetaminophen amount = 4 Grams (4000 mg) / 24 hours. 04/08/2024 albuterol-ipratropiu m (Duo-Neb) 0.5-2.5 (3) MG/3ML nebulizer solution Inhale 3 mL by mouth every 4 hours as needed for Shortness of Breath or Wheezing 04/08/2024 ascorbic acid (Vitamin C) 500 MG tablet Take 1 (one) tablet by mouth once daily aspirin (Aspirin) 81 MG chew tablet Take 1 (one) tablet by mouth once daily 30 tablet 2 03/14/2024 atorvastatin (Lipitor) 20 MG tablet Take 1 (one) tablet by mouth at bedtime 30 tablet 3 03/13/2024 calcium carbonate (Tums) 500 MG chew tablet Take 3 (three) tablets by mouth 2 times daily with morning and evening meal carvedilol (Coreg) 25 MG tablet Take 1 (one) tablet by mouth 2 times daily with morning and evening meal 60 tablet 3 03/13/2024 cholestyramine (Questran) 4 g packet Take 1 (one) packet by mouth once daily enoxaparin (Lovenox) 30 MG/0.3ML injection Inject 30 (thirty) mg subcutaneously every 12 hours 04/08/2024 evolocumab (Repatha) 140 MG/ML prefilled syringe Inject 140 (one hundred forty) mg subcutaneously every 14 days hyoscyamine CR 12hr (Levbid) 0.375 MG tablet Take 1 (one) tablet by mouth once daily lansoprazole (Prevacid) 30 MG capsule Take 1 (one) capsule by mouth daily before breakfast loperamide (Imodium) 2 MG capsule Take 1 (one) capsule by mouth as needed for Diarrhea losartan (Cozaar) 50 MG tablet Take 1 (one) tablet by mouth once daily 04/09/2024 melatonin 3 MG tablet Take 1 (one) tablet by mouth at bedtime 04/08/2024 polyethylene glycol 3350 (Miralax) 17 g packet Take 17 (seventeen) g by mouth once daily 04/09/2024 raloxifene (Evista) 60 MG tablet Take 1 (one) tablet by mouth once daily tamsulosin (Flomax) 0.4 MG capsule Take 1 (one) capsule by mouth once daily At the same time every day after a meal. 04/09/2024 traMADol (Ultram) 50 MG tablet Take 1 (one) tablet by mouth every 6 hours as needed for Pain traZODone (Desyrel) 50 MG tablet Take 0.5 (one-half) tablet by mouth nightly as needed for Insomnia 04/08/2024 white petroleum (Vaseline) ointment Apply to affected area 3 times daily 04/08/2024 FLUoxetine (PROzac) 20 MG capsule Take 1 (one) capsule by mouth once daily 04/08/2024 losartan (Cozaar) 25 MG tablet Take 1 (one) tablet by mouth once daily 30 tablet 3 03/14/2024 04/08/2024 documented as of this encounter Progress Notes * Douglas Pacheco RN - 03/13/2024 5:01 PM CST Discharge To Facility Discharge Date: 03/13/2024 Comments: Pt returned to [facility] [place] No other needs. Case management no longer needed. [email or web address] GINO REAL, GINO-Certification, A.D.N, BSN [phone] ORT WORKER * Melisa Forte RN - 03/13/2024 4:52 PM CST Problem: Fall Risk Goal: Fall risk and fall related injury risk are minimized (interventions related to the fall risk can be found in the flowsheet documentation) Outcome: Adequate for Discharge Problem: Skin Integrity Goal: Skin integrity is maintained or improved Outcome: Adequate for Discharge Problem: Pain/Discomfort Goal: Patient exhibits reduced pain/discomfort as evidenced by pain scores Outcome: Adequate for Discharge Goal: Patient uses pharmacological and non-pharmacological pain management strategies. Outcome: Adequate for Discharge Goal: Patient verbalizes acceptable level of pain relief and ability to engage in desired activity. Outcome: Adequate for Discharge Problem: Hemodynamic Status/Cardiac Output Goal: Patient has stable vital signs and fluid balance Outcome: Adequate for Discharge ORT WORKER * Kris Burt MSW - 03/13/2024 12:31 PM CST Manager Of Sales Progress Note Anticipated level of care at discharge: Unknown: Return to [facility] 03/16/2024: Discharge Plan: SW aware this pt is from [facility] and is planning on returning once med ready. SW sent updated notes to the SNF and will follow accordingly. Orientation Level: Oriented to Person;Disoriented to Place;Disoriented to Time;Disoriented to Situation: Family Support (Name and Phone): Extended Emergency Contact Information Primary Emergency Contact: tarah dalton Mobile Relation: Daughter Secondary Emergency Contact: MERI NOVOA Mobile Relation: Daughter Transportation at Discharge: Family: READMISSION RISK SCORE is 13 at 12:32 PM 03/13/2024.: Name: JOSE LUIS Leung ORT WORKER * Douglas Pacheco RN - 03/13/2024 10:47 AM CST Care Coordination Progress Note Expected Discharge Date: 03/16/2024 Discharge Plan: Plan is for pt to return [facility] [place] Vascular surgery declining intervention. Family Support (Name and Phone): Extended Emergency Contact Information Primary Emergency Contact: tarah dalton Mobile Relation: Daughter Secondary Emergency Contact: MERI NOVOA Mobile Relation: Daughter Transportation at Discharge: Family: READMISSION RISK SCORE is 13 at 10:47 AM 03/13/2024.: [email or web address] GINO REAL, MA-Certification, A.D.N, BSN [phone] ORT WORKER * Alban Brown MD - 03/13/2024 7:08 AM CST Vascular Surgery Plan of Care No further Vascular Surgery intervention at this time. Patient does not need to follow up outpatient with our team. Please contact Vascular Surgery with questions or concerns. Alban Brown M.D. 03/13/2024 7:08 AM ORT WORKER * Maura Webb RN - 03/13/2024 1:38 AM CST Problem: Fall Risk Goal: Fall risk and fall related injury risk are minimized (interventions related to the fall risk can be found in the flowsheet documentation) Outcome: Progressing Problem: Skin Integrity Goal: Skin integrity is maintained or improved Outcome: Progressing Problem: Pain/Discomfort Goal: Patient exhibits reduced pain/discomfort as evidenced by pain scores Outcome: Progressing Goal: Patient uses pharmacological and non-pharmacological pain management strategies. Outcome: Progressing Goal: Patient verbalizes acceptable level of pain relief and ability to engage in desired activity. Outcome: Progressing Problem: Hemodynamic Status/Cardiac Output Goal: Patient has stable vital signs and fluid balance Outcome: Progressing ORT WORKER * Laury Pedro RN - 03/12/2024 6:57 PM CST 1850-Called patient's daughter Meri Novoa POA- [phone]. Message left informing her of patient's transfer to room 844. Phone number to nursing station left on message. 0- Patient's POA called RN back and made aware of above. Aware of transfer. Awaiting transport to transfer patient. ORT WORKER * Laury Pedro RN - 03/12/2024 3:47 PM CST Problem: Fall Risk Goal: Fall risk and fall related injury risk are minimized (interventions related to the fall risk can be found in the flowsheet documentation) Outcome: Progressing Problem: Skin Integrity Goal: Skin integrity is maintained or improved Outcome: Progressing Problem: Pain/Discomfort Goal: Patient exhibits reduced pain/discomfort as evidenced by pain scores Outcome: Progressing ORT WORKER * Karen Hoang RN - 03/12/2024 9:50 AM CST Care Coordination Initial Assessment Expected Discharge Date: 03/16/2024 Expected Discharge Disposition: (P) [facility] Facility Transportation at Discharge: (P) Family Prior Level of Care: (P) Fdc - Skilled Facility Prior to Admit Provider: (P) [facility] Comments: Pt is a resident at [facility]. She has been living there for the past two years. She receives assistance with showers, meal prep, housekeeping, medication and mobility. Pt getsaround independently with her walker. No other DMEs. Lives with: (P) Alone Physical Limitations: (P) Ambulation with use of DME Requires Assistance With: (P) Mobility;Hygiene;Housekeeping;Meal Preparation;Medication Administration Preferred Pharmacy: [facility] [address] [phone] READMISSION RISK SCORE is 14 at 9:50 AM 03/12/2024. Met with [facility] Family Support (name and phone): Extended Emergency Contact Information Primary Emergency Contact: traah dalton Mobile Relation: Daughter Secondary Emergency Contact: MERI NOVOA Mobile Relation: Daughter Patient or community engagement representative requests care coordination reach out to family or caregiver listed above regarding discharge planning and at time of discharge? Yes Actual Level of Care/Dispostion Details Manager Of Sales Referral: No Will continue to follow. For any questions or needs please contact: Job Developer/Social Work Name/Phone number: Karen Hoang RN ORT WORKER * José King MD - 03/12/2024 7:33 AM CST Cardiology Progress Note 03/12/2024 7:33 AM Patient: Emerald Villafana (:1935) Room: [facility] Admit Date: 03/11/2024. Hospital Day: 1 CC: Chest pain HPI: Emerald Villafana is 88 year old female with history of CAD s/p stent, dementia, COPD, HLD, HTN, GERDthat initially presented to OSH for right sided abdominal pain and chest pain radiating to left arm, transferred to [facility] on 03/11/2024 for higher level of care. History obtained by chart review and family at bedside as patient disoriented at baseline. At OSH, CT showed penetrating atherosclerotic ulcer with associated small intramural hematoma along the distal aortic arch. Transferred to [facility] ED. In ED, BP 186/101, HR 107, afebrile, sting well on room air. Labs significant for BNP 189, otherwise unremarkable. Vascular surgery consulted in ED, no plans for surgical intervention, recommend systolic BP goal <120 and HR <80. Received hydralazine 10mg IV, labetalol 5mg IV x1 and 10mg IV x2. Started on esmolol drip. Admitted to CCU. Patient intermittently answering questions appropriately. Endorsing chest pressure but no chest pain. States she does have abdominal pain sometimes but not currently. At baseline, patient lives in memory care facility at [facility], in assisted living. Gets help with taking medications, bathing, and gets taken down for meals but is otherwise able to perform ADLs. Walks with walker. Past Medical History Past Medical History: Diagnosis Date CAD (coronary artery disease) COPD (chronic obstructive pulmonary disease) (HCC) Dementia without behavioral disturbance (HCC) GERD (gastroesophageal reflux disease) HLD (hyperlipidemia) HTN (hypertension) Past Surgical History Past Surgical History: Procedure Laterality Date Knee Replacement Left Social History Social History Tobacco Use Smoking status: Former Current packs/day: 0.00 Average packs/day: 1 pack/day for 30.0 years (30.0 ttl pk-yrs) Types: Cigarettes Start date: 1953 Quit date: 04/22/1983 Years since quittin.9 Vaping Use Vaping status: Never Used Substance Use Topics Alcohol use: Never Drug use: Never Family History No family history on file. Allergies Allergies Allergen Reactions Ciprofloxacin Rash Quinolones Unknown Sulfa Antibiotics Unknown Home Medications Current Outpatient Medications Medication Instructions ascorbic acid (VITAMIN C) 500 mg, Oral, DAILY calcium carbonate (Tums) 500 MG chew tablet 3 tablets, Oral, 2 TIMES DAILY WITH MEALS cholestyramine (QUESTRAN) 4 g, Oral, DAILY FLUoxetine (PROZAC) 20 mg, Oral, DAILY hyoscyamine CR 12hr (LEVBID) 0.375 mg, Oral, DAILY lansoprazole (PREVACID) 30 mg, Oral, DAILY BEFORE BREAKFAST loperamide (IMODIUM) 2 mg, Oral, PRN raloxifene (EVISTA) 60 mg, Oral, DAILY Repatha 140 mg, Subcutaneous, EVERY 14 DAYS traMADol (ULTRAM) 50 mg, Oral, EVERY 6 HOURS PRN Objective: Vitals: 03/12/24 0300 03/12/24 0400 03/12/24 0500 03/12/24 0600 BP: Pulse: 71 70 73 83 Resp: 12 15 17 13 Temp: SpO2: 98% 99% 94% 93% Weight: 65.1 kg (143 lb 8.3 oz) Height: Intake/Output Summary (Last 24 hours) at 03/12/2024 0733 Last data filed at 03/12/2024 0401 Gross per 24 hour Intake 462.41 ml Output -- Net 462.41 ml Physical Exam General - NAD, afebrile, , A&Ox1-2 HEENT - NC/AT, EOMI, clear conjunctivae, throat without erythema or exudate, moist mucous membranes Neck - Supple, no LAD, no JVD Chest - CTAB no crackles or wheezes bilaterally CV - RRR no murmurs, radial and DP pulses 2/4, good capillary refill Abdomen - Soft, NT/ND, +BS, no organomegaly Musculoskeletal - Moves all four extremities Extremities - No c/c/e Skin - No rashes, lesions or jaundice Neurologic - A&O x 1-2, no focal neurological deficits Labs: CBC: Recent Labs Component Name 03/12/24 0330 03/11/24 1435 WBC 7.2 7.9 HGB 11.9 13.5 HCT 37.0 42.0 BMP: Recent Labs Component Name 03/12/24 0330 03/11/24 1435 NA 137 140 CL 110* 105 CO2 BUN 13 12 CREATININE 0.86 0.92 CALCIUM 8.3* 8.7 PHOS 3.7 - Hepatic: Recent Labs Component Name 03/12/24 0330 03/11/24 1435 ALT - 8 AST - 12 TBILI - 0.6 PROT - 6.0 ALB 2.6* 3.0* ALKPHOS - 63 Coagulation: Recent Labs Component Name 03/11/24 1435 PT 12.9 INR 1.0 Cardiac Markers: No results for input(s): CK , CKTOTAL , CKMB , CKMBUL , CKMBNGML , TROPONIN , TROPONINI , TROPONINT in the last 72147 hours. ABGs: No results for input(s): PHART , PO2ART , HML1FKH , BEART in the last 87832 hours. Micro: Reviewed Imaging: Imaging reviewed. Assessment: Malignant hypertension (POA: Unknown) Chest pain, unspecified type (POA: Unknown) Penetrating atherosclerotic ulcer of aorta (HCC) (POA: Unknown) PLAN: Neurological: #Dementia - waxing and waning mental status at baseline per family - may need sitter once off of restraints - Continue home fluoxetine 20mg daily Cardiovascular: #Distal aortic arch penetrating ulcer and intramural hematoma - Per vascular surgery note: OSH CT showed a penetrating atherosclerotic ulcer (RADHA) with associated small intramural hematoma along the distal aortic arch. Upon reviewing the CT Scan, the RADHA is stable in the descending portion of the Aorta; there is a low risk of rupture if patient is medically managed thus will continue to monitor patient and titrate BP medications as needed and follow up as outpatient in about 4-[address] Scan to assess for any changes. PLAN: - Vascular surgery consulted, apprec recs ---No plan for surgical intervention ---Systolic BP goal <120; HR goal <80 - Weaning off Esmolol, increased Coreg 12.5 to wean off IV medications - Off Nicardipine - Coreg 12.5 mg BID, Losartan 25mg daily #CAD #HLD - Start ASA 81mg, Atorvastatin 20mg daily - Continue home cholestyramine - Hold off on home repatha as not on formulary Pulmonary: #COPD - Not on oxygen at baseline SpO2 goal - >88% GI: #GERD - Start Pantoprazole 40mg daily (home lansoprazole not on formulary) - Continue home Calcium Carbonate Renal: DANIAL Endocrine: BGM goal 140-180 mg/dL ID: DANIAL Heme/Onc: DANIAL FEN: -Monitor electrolytes QD, Replace K<4, Mg<2, Phos<3 Lines: PIV x2; A-line Prophylaxis: Aspiration precautions w/ HOB elevation by 30 degrees GI prophyalxis not indicated DVT prophyalxis w/ SCDs Diet: Cardiac Activity: As tolerated Disposition: ICU Monitoring Code Status: DNR/DNI José King MD Internal Medicine PGY-2 03/12/2024 7:33 AM ORT WORKER Associated attestation - Feliciano Gomez MD - 03/13/2024 3:22 PM SUPPORT WORKER I have seen and examined the patient with the resident and I agree with the findings and plan of care as documented by the resident. Date of service is the date in the resident's note. Lele Gomez MD MPH * Conor Piña MD - 03/12/2024 6:24 AM CST Images from the original note were not included. VASCULAR SURGERY PROGRESS NOTE ADMIT: 03/11/2024 2:14 PM LOS: 1 day 03/12/2024 HISTORY: Emerald Villafana is an 88 year old female with PMHx s/f CAD s/p stent, dementia, COPD (not on O2), HLD, HTN, GERD who presented to OSH complaining of right-sided abdominal pain and chest painradiating to her left arm. OSH CT showed a penetrating atherosclerotic ulcer (RADHA) with associated small intramural hematoma along the distal aortic arch. Patient was then transferred to [facility] for higher level of care. Vascular surgery consulted for finding of RADHA. She presents with 2 family memberswho states she awoke this morning with chest pain radiating to her left arm. She has no other symptoms. She also has a history of syncopal episodes with falls. On exam, patient is A&O x2, confused. She's hypertensive to 180s/100s, HR 70s- 80s, satting 93% on RA. She currently complains of mild pain in her left arm, she's non-tender to palpation in chest and abdomen. Labs are within normal limits. Patient denies fever, chills, nausea, vomiting, lightheadedness. Former smoker, quit in 1981. No history of strokes, patient is not taking blood thinners. She lives at an assisted living, and ambulates with a walker. SUBJECTIVE: No overnight events, pain well controlled on current regimen, afebrile, hemodynamically stable, denies nausea/vomiting, no chest pain or SOB, and distal pulses intact OBJECTIVE: Blood pressure 95/65, pulse 83, temperature 97.6 ??F (36.4 ??C), temperature source Oral, resp. rate 13, height 1.6 m (5' 3 ), weight 65.1 kg (143 lb 8.3 oz), SpO2 93%. Temp: [97.1 ??F (36.2 ??C)-97.6 ??F (36.4 ??C)] 97.6 ??F (36.4 ??C) Pulse: [70-107] 83 Resp: [10-30] 13 BP: (95-186)/(65-106) 95/65 Arterial Line BP #1: (95-132)/(44-57) 115/52 DIET: DIET CARDIAC Ins/Outs: 03/11 701 - 03/12 700 In: 462.4 [I.V.:462.4] Out: - Scheduled Medications: 0.9% NaCl 3 mL Intracatheter q8h aspirin 81 mg Oral QDAY atorvastatin 20 mg Oral AT BEDTIME carvedilol 6.25 mg Oral BID WC cholestyramine light 4 g Oral QDAY at 1300 FLUoxetine 20 mg Oral QDAY hyoscyamine CR 12hr 0.375 mg Oral QDAY losartan 25 mg Oral QDAY pantoprazole EC 40 mg Oral QDAY Continuous Medications: esmolol, 0-200 mcg/kg/min, Last Rate: 75 mcg/kg/min (03/12/24730) niCARdipine, 0-15 mg/hr, Last Rate: Stopped (03/11/242115) PRN Medications: 0.9% NaCl, 1-10 mL, PRN Physical Exam Gen: NAD, Confused, and A&O x 2 ENT: Normocephalic and EOMI Resp: unlabored breathing on RA CV: RRR Abd: Soft, Non-distended, and Non-peritoneal, no rebound/guarding MSK: pulse exam: Present palpable bilateral DP/PT, R Fem, L Fem, and bilateral radial Psych: Appropriate mood and affect RECENT LABS: Recent Labs Component Name 03/12/24 0330 03/11/24 1435 WBC 7.2 7.9 HGB 11.9 13.5 HCT 37.0 42.0 MCV 93.4 92.7 Recent Labs Component Name 03/12/24 0330 03/11/24 1435 NA 137 140 POTASSIUM 4.2 4.1 CL 110* 105 CO2 24 24 BUN 13 12 CREATININE 0.86 0.92 CALCIUM 8.3* 8.7 MAGNESIUM 2.0 2.0 PHOS 3.7 - Recent Labs Component Name 03/12/24 0330 03/11/24 1435 PROT - 6.0 ALB 2.6* 3.0* TBILI - 0.6 AST - 12 ALT - 8 ALKPHOS - 63 RECENT IMAGING: OSH Imaging reviewed: IMPRESSION: Penetrating atherosclerotic ulcer with associated small intramural hematoma along the distal aorticarch. Moderate emphysema. Sigmoid diverticulosis. No acute intra-abdominal/pelvic process. ASSESSMENT: Emerald Villafana is a 88 year old female with PMH s/f CAD s/p stent, dementia, COPD (noton O2), HLD, GERD who presented to OSH complaining of right- sided abdominal pain and chest pain radiating to her left arm. 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 PLAN: - Continue impulse control: Systolics < 120, HR < 80 - Wean to oral antihypertensives - Aspirin when able Patient will be staffed with attending, Dr. Eddy Clark. Note to be updated with any changes. Conor Piña MD General Surgery, PGY-1 [facility] 03/12/2024 7:34 AM ORT WORKER documented in this encounter H&P Notes * Yuly Dolan MD - 03/11/2024 5:22 PM CST Cardiology History & Physical Note 03/11/2024 8:01 PM Patient: Emerald Villafana (:1935) Room: [facility] Admit Date: 03/11/2024. Hospital Day: 0 CC: Chest pain HPI: Emerald Villafana is 88 year old female with history of CAD s/p stent, dementia, COPD, HLD, HTN, GERDthat initially presented to OSH for right sided abdominal pain and chest pain radiating to left arm, transferred to [facility] on 03/11/2024 for higher level of care. History obtained by chart review and family at bedside as patient disoriented at baseline. At OSH, CT showed penetrating atherosclerotic ulcer with associated small intramural hematoma along the distal aortic arch. Transferred to [facility] ED. In ED, BP 186/101, HR 107, afebrile, sting well on room air. Labs significant for BNP 189, otherwise unremarkable. Vascular surgery consulted in ED, no plans for surgical intervention, recommend systolic BP goal <120 and HR <80. Received hydralazine 10mg IV, labetalol 5mg IV x1 and 10mg IV x2. Started on esmolol drip. Admitted to CCU. Patient intermittently answering questions appropriately. Endorsing chest pressure but no chest pain. States she does have abdominal pain sometimes but not currently. At baseline, patient lives in memory care facility at [facility], in assisted living. Gets help with taking medications, bathing, and gets taken down for meals but is otherwise able to perform ADLs. Walks with walker. Past Medical History Past Medical History: Diagnosis Date CAD (coronary artery disease) COPD (chronic obstructive pulmonary disease) (HCC) Dementia without behavioral disturbance (HCC) GERD (gastroesophageal reflux disease) HLD (hyperlipidemia) HTN (hypertension) Past Surgical History Past Surgical History: Procedure Laterality Date Knee Replacement Left Social History Social History Tobacco Use Smoking status: Never Vaping Use Vaping status: Never Used Substance Use Topics Alcohol use: Never Drug use: Never Family History No family history on file. Allergies Allergies Allergen Reactions Ciprofloxacin Rash Quinolones Unknown Sulfa Antibiotics Unknown Home Medications Current Outpatient Medications Medication Instructions ascorbic acid (VITAMIN C) 500 mg, Oral, DAILY calcium carbonate (Tums) 500 MG chew tablet 3 tablets, Oral, 2 TIMES DAILY WITH MEALS cholestyramine (QUESTRAN) 4 g, Oral, DAILY FLUoxetine (PROZAC) 20 mg, Oral, DAILY hyoscyamine CR 12hr (LEVBID) 0.375 mg, Oral, DAILY lansoprazole (PREVACID) 30 mg, Oral, DAILY BEFORE BREAKFAST loperamide (IMODIUM) 2 mg, Oral, PRN raloxifene (EVISTA) 60 mg, Oral, DAILY Repatha 140 mg, Subcutaneous, EVERY 14 DAYS traMADol (ULTRAM) 50 mg, Oral, EVERY 6 HOURS PRN Review of Systems positives are in bold; negatives are in italics Constitutional: fevers, chills, sweats, fatigue, weight loss/gain, chronic pain HEENT: head trauma, vision/hearing/voice changes, eye/ear/throat pain, nasal discharge, dysphagia, sores, ulcers, sinus pain Respiratory: cough, hemoptysis, sputum, JAMES, dyspnea at rest, PND, wheezing Cardiovascular: chest pain/discomfort, palpitations, lower extremity edema, calf/leg pain Gastrointestinal: nausea/vomiting, diarrhea, constipation, melena, abdominal pain Genitourinary: dysuria, urgency, frequency, incontinence, hematuria Integument: rash, ulcers, itching Hematologic/lymphatic: easy bruising, bleeding Musculoskeletal: myalgias, arthralgias Neurological: headaches, dizziness, numbness, tingling, seizures Behavioral/Psych: anxiety, depression, memory problems Endocrine: polyuria, polydipsia, polyphagia, heat/cold intolerance Objective: Vitals: 03/11/24 1700 03/11/24 1802 03/11/24 1819 03/11/24 1823 BP: 118/69 167/78 161/73 144/98 Pulse: 93 Resp: 15 Temp: SpO2: 93% Weight: Height: No intake or output data in the 24 hours ending 03/11/242000 Physical Exam General - NAD, afebrile, pleasantly demented, A&Ox1 HEENT - NC/AT, EOMI, clear conjunctivae, throat without erythema or exudate, moist mucous membranes Neck - Supple, no LAD, no JVD Chest - CTAB no crackles or wheezes bilaterally CV - RRR no murmurs, radial and DP pulses 2/4, good capillary refill Abdomen - Soft, NT/ND, +BS, no organomegaly Musculoskeletal - Moves all four extremities Extremities - No c/c/e Skin - No rashes, lesions or jaundice Neurologic - A&O x 1, no focal neurological deficits Psych - Pleasantly demented Labs: CBC: Recent Labs Component Name 03/11/24 1435 WBC 7.9 HGB 13.5 HCT 42.0 BMP: Recent Labs Component Name 03/11/24 1435 NA 140 CL 105 CO2 24 BUN 12 CREATININE 0.92 CALCIUM 8.7 Hepatic: Recent Labs Component Name 03/11/24 1435 ALT 8 AST 12 TBILI 0.6 PROT 6.0 ALB 3.0* ALKPHOS 63 Coagulation: Recent Labs Component Name 03/11/24 1435 PT 12.9 INR 1.0 Cardiac Markers: No results for input(s): CK , CKTOTAL , CKMB , CKMBUL , CKMBNGML , TROPONIN , TROPONINI , TROPONINT in the last 54011 hours. ABGs: No results for input(s): PHART , PO2ART , ZAA3GUQ , BEART in the last 90530 hours. Micro: Reviewed Imaging: Imaging reviewed. Assessment: Malignant hypertension (POA: Unknown) Chest pain, unspecified type (POA: Unknown) Penetrating atherosclerotic ulcer of aorta (HCC) (POA: Unknown) PLAN: Neurological: #Dementia - waxing and waning mental status at baseline per family - may need sitter once off of restraints - Continue home fluoxetine 20mg daily Cardiovascular: #Distal aortic arch penetrating ulcer and intramural hematoma - Per vascular surgery note: OSH CT showed a penetrating atherosclerotic ulcer (RADHA) with associated small intramural hematoma along the distal aortic arch PLAN: - Vascular surgery consulted, apprec recs ---No plan for surgical intervention ---Systolic BP goal <120; HR goal <80 - Start esmolol gtt, wean as able - Started on nicardipine gtt in ED, wean as able - Start Coreg 6.25mg BID, Losartan 25mg daily #CAD #HLD - Start ASA 81mg, Atorvastatin 20mg daily - Continue home cholestyramine - Hold off on home repatha as not on formulary Pulmonary: #COPD - Not on oxygen at baseline SpO2 goal - >88% GI: #GERD - Start pantoprazole 40mg daily (home lansoprazole not on formulary) - Continue home calcium carbonate Renal: DANIAL Endocrine: BGM goal 140-180 mg/dL ID: DANIAL Heme/Onc: DANIAL FEN: -Monitor electrolytes QD, Replace K<4, Mg<2, Phos<3 Lines: PIV x2; A-line Prophylaxis: Aspiration precautions w/ HOB elevation by 30 degrees GI prophyalxis not indicated DVT prophyalxis w/ SCDs Diet: Cardiac Activity: As tolerated Disposition: ICU Monitoring Code Status: DNR/DNI Yuly Dolan MD Internal Medicine PGY-3 03/11/2024 8:01 PM ORT WORKER Associated attestation - Feliciano Gomez MD - 03/13/2024 3:23 PM SUPPORT WORKER I have seen and examined the patient with the resident and I agree with the findings and plan of care as documented by the resident. Date of service is the date in the resident's note. 45 mins of critical care time spend on discussion and drips. Lele Gomez MD MPH documented in this encounter Procedure Notes * Eddy Huntley DO - 03/11/2024 5:59 PM CSTAssociated Order(s): Arterial Line 03/11/2024 5:59 PM Arterial Line Date/Time: 03/11/2024 6:00 PM Performed by: Eddy Huntley DO Authorized by: Feliciano Gomez MD Consent: Consent obtained: Verbal Risks discussed: Bleeding, infection and pain [place] protocol: Patient identity confirmed: Verbally with patient, arm band and hospital- assigned identification number Indications: Indications: hemodynamic monitoring Pre-procedure details: Skin preparation: Chlorhexidine Sedation: Sedation type: None Anesthesia: Anesthesia method: Local infiltration Local anesthetic: Lidocaine 1% w/o epi Procedure details: Location: R radial Hiro's test performed: yes Ihro's test abnormal: no Needle gauge: 18 G Placement technique: Seldinger and ultrasound guided Number of attempts: 2 Post-procedure details: Post-procedure: Biopatch applied Procedure completion: Tolerated well, no immediate complications ORT WORKER documented in this encounter Consult Notes * Inez Joseph MD - 03/11/2024 3:13 PM CST Vascular Surgery Consult Note ADMIT: 03/11/2024 2:14 PM LOS: 0 days 03/11/2024 History of Present Illness: Emerald Villafana is an 88 year old female with PMHx s/f CAD s/p stent, dementia, COPD (not on O2), HLD, HTN, GERD who presented to OSH complaining of right-sided abdominal pain and chest pain radiating to her left arm. OSH CT showed a penetrating atherosclerotic ulcer (RADHA) with associated small intramural hematoma along the distal aortic arch. Patient was then transferred to [facility] for higher levelof care. Vascular surgery consulted for finding of RADHA. She presents with 2 family members who states she awoke this morning with chest pain radiating to her left arm. She has no other symptoms. She also has a history of syncopal episodes with falls. On exam, patient is A&O x2, confused. She's hypertensive to 180s/100s, HR 70s- 80s, satting 93% on RA. She currently complains of mild pain in her left arm, she's non-tender to palpation in chest and abdomen. Labs are within normal limits. Patient denies fever, chills, nausea, vomiting, lightheadedness. Former smoker, quit in 1981. No history of strokes, patient is not taking blood thinners. She lives at an assisted living, and ambulates with a walker. Past Medical History: No past medical history on file. Past Surgical History: No past surgical history on file. Home Medications: Current Facility-Administered Medications Medication 0.9% NaCl injection 3 mL And 0.9% NaCl injection 1-10 mL No current outpatient medications on file. Allergies: Allergies Allergen Reactions Ciprofloxacin Rash Quinolones Unknown Sulfa Antibiotics Unknown Social History: Social History Socioeconomic History Marital status: Family History: No family history on file. Review of Systems: Pertinent positives of ROS are listed above Objective: BP (!) 186/101 (BP Location: Right arm, Patient Position: Sitting) Pulse 107 Temp 97.1 ??F (36.2 ??C) Resp 13 Ht 1.6 m (5' 3 ) Wt 63.5 kg (140 lb) SpO2 94% Physical Exam: Gen: NAD, Confused, and A&O x 2 ENT: Normocephalic and EOMI Resp: unlabored breathing on RA CV: RRR Abd: Soft, Non-distended, and Non-peritoneal, no rebound/guarding MSK: pulse exam: Present palpable bilateral DP/PT, R Fem, L Fem, and bilateral radial Psych: Appropriate mood and affect Labs: Recent Labs Component Name 03/11/24 1435 WBC 7.9 HGB 13.5 HCT 42.0 Imaging: OSH Imaging reviewed: IMPRESSION: Penetrating atherosclerotic ulcer with associated small intramural hematoma along the distal aorticarch. Moderate emphysema. Sigmoid diverticulosis. No acute intra-abdominal/pelvic process. Assessment: Emerald Villafana is a 88 year old female with PMH s/f CAD s/p stent, dementia, COPD (noton O2), HLD, GERD who presented to OSH complaining of right- sided abdominal pain and chest pain radiating to her left arm. 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 Plan: - No acute vascular surgery intervention - Impulse control: Systolics < 120, HR < 80 - Pain control - Rest of care per primary team, please call with any questions or concerns Patient staffed with chief, Dr. Joseph, will be staffed with attending, Dr. Clark. Note to be updated with any changes. Conor Piña MD General Surgery, PGY-1 [facility] 03/11/2024 3:13 PM Chief Addendum -Pt reviewed. 88 year old F multiple comorbidities, living independently presenting with chest painwhich has since resolved. CT [facility] at [facility] showing small approx 2mm RADHA about 2 cm from subclavian takeoff. No extravasation. No known history of RADHA previously. Currently not on antiplatelet or anticoagulant therapy. Does have hx of cardiac stents. HTN to 170s; otherwise no distress. Family wants minimal interventions; would be okay with smaller interventions but would like to avoid surgical intervention if possible. Discussed with Dr. Clark, imaging reviewed. No acute surgical intervention. No landing zone for standard TEVAR and would require branched endograft which is a more complex intervention; would not recommend at this time. Recommend medicine admit; medical management with ASA81, statin, and impulse control with SBP <120 and HR <80. Please call with questions/concerns. Inez Joseph MD PGY-7 Vascular Surgery Fellow 03/11/2024 5:15 PM ORT WORKER documented in this encounter ED Notes * Hailee Pelletier RN - 03/11/2024 6:26 PM CST Pt report given to ZACH Baltazar. All questions answered. ORT WORKER * Carlos Ndiaye MD - 03/11/2024 2:31 PM CST [facility] ENCOUNTER HISTORICAL INFORMATION Primary Care Doctor: Ada Rahman, [employer] Patient information was obtained primarily from the patient, nursing notes, and OSH History/Exam limitations: dementia Provider contact time: 2:15 I have personally seen, examined and been fully involved in the management of this patient with theresident. I confirm history, exam, assessment and plan Discussed. In addition I note: CHIEF COMPLAINT Chest Pain (BIBA from OSH due to pentrating aortic ulcer. Pt went to OSH due to chest pain. Denies any sx's att. Pt is a&O x 1-2. Hx of dementia. ) HPI Emerald Villafana is a 88 year old female who presents to the [facility] ED via transfer by EMS from OSH. The pt is presenting from the OSH with a potential penetrating aortic ulcer. The pt does have a histroy of hypertension, dementia, and arthroscopic heart disease. At the OSH, the pt was initally complaining of chest pain, but after CT was taken at OSH, there was evidence of a penetrating athroscopic ulcer with a small hematoma along the distal aortic arch. At the OSH, labs were largely unremarkable. PAST MEDICAL HISTORY Past Medical History: Diagnosis Date CAD (coronary artery disease) COPD (chronic obstructive pulmonary disease) (HCC) Dementia without behavioral disturbance (HCC) GERD (gastroesophageal reflux disease) HLD (hyperlipidemia) HTN (hypertension) SURGICAL HISTORY Past Surgical History: Procedure Laterality Date Knee Replacement Left CURRENT MEDICATIONS No current outpatient medications on file. ALLERGIES Allergies Allergen Reactions Ciprofloxacin Rash Quinolones Unknown Sulfa Antibiotics Unknown FAMILY HISTORY No family history on file. SOCIAL HISTORY Social History Socioeconomic History Marital status: Tobacco Use Smoking status: Former Current packs/day: 0.00 Average packs/day: 1 pack/day for 30.0 years (30.0 ttl pk-yrs) Types: Cigarettes Start date: 1952 Quit date: 04/22/1983 Years since quittin.9 Vaping Use Vaping status: Never Used Substance and Sexual Activity Alcohol use: Never Drug use: Never REVIEW OF SYSTEMS ROS LIMITED DUE TO POOR COMMUNICATION PHYSICAL EXAM VITAL SIGNS: BP 95/65 Pulse 99 Temp 97.3 ??F (36.3 ??C) (Oral) Resp 18 Ht 1.6 m (5' 3 ) Wt 63.5 kg (140 lb) SpO2 90% Constitutional: Well developed, Well nourished, No acute distress, Non-toxic appearance. HENT: Normocephalic, Atraumatic, Bilateral external ears normal, Oropharynx moist, No oral exudates, Nose normal. Eyes: PERRL, EOMI, Conjunctiva normal, No discharge. Neck- Normal range of motion, No tenderness, Supple, No stridor. Respiratory: Normal breath sounds, No respiratory distress. Cardiovascular: Normal heart rate, Normal rhythm GI: Bowel sounds normal, Soft, No tenderness Musculoskeletal: Intact distal pulses, No edema, No tenderness, No cyanosis. Back- No tenderness. Integument: Warm, Dry, No erythema, No rash. Neurologic: Alert & oriented to self, Normal motor function, Normal sensory function, No focal deficits noted. Psychiatric: Affect normal, Judgment normal, Mood normal. PULSE OXIMETRY INTERPRETATION Saturation: 93% Oxygen Delivery: ra Interpretation: normal RHYTHM STRIP INTERPRETATION (interpreted by ED provider) Rhythm: sinus Ventricular Rate: 80 bpm EKG (interpreted by ED provider) Date: 03/11/24 Time: 1442 Interpretation: sinus, no acute ischemia, vr 81bpm, qt/qtc 384/446 RADIOLOGY I have independently reviewed all imaging for today's visit. XR CHEST 1VW PORTABLE Result Date: 03/11/2024 PROCEDURE: XR CHEST 1VW PORTABLE, DATE/TIME OF EXAM: 03/11/2024 2:39 PM, LOCATION [facility] INDICATION: R07.9: Chest pain, unspecified type ADDITIONAL CLINICAL INFORMATION: Ordering Provider Reason For Exam: chest pain COMPARISON: Same day CT chest abdomen pelvis. TECHNIQUE: Frontal radiograph of the chest. FINDINGS/IMPRESSION: There is no focal consolidation, pleural effusion,or pneumothorax. The cardiomediastinal silhouette is normal. There is atherosclerotic calcificationof the aorta. No displaced fractures identified. Report dictated by Maren Oconnell MD, (Wine Steward/Stewardess). I, Argenis Morales MD have personally reviewed and interpreted this examination/study. & gt; Interpreting Provider: Argeins Morales MD on 03/11/2024 2:[address] Head Wo Contrast Result Date: 02/20/2024 EXAM DESCRIPTION: CT HEAD WO CONTRAST REASON FOR STUDY: Mental status change, unknown cause Pt to ED via [facility] from [facility] Living for c/o increased fatigue and confusion x3 days. Pt has hx of dementia and is baseline AO to self per step daughter but over past 3 days has been moreconfused than usual. Pt has also been sleeping more. EMS reports facility did a UA and it showed pthas UTI. Denies fever or any c/o pain. TECHNIQUE: Axial images acquired through the brain without intravenous contrast. Images stored on PACS. Automated exposure control was used as a dose optimization technique for this examination. COMPARISON: 11/30/2023 FINDINGS: BRAIN: No hemorrhage, edema or ma ss effect. No recent infarct. Periventricular white matter hypoattenuation suggestive of chronic microvascular ischemic change. Global cerebral volume loss. EXTRA-AXIAL SPACES: No fluid collections. No masses. CALVARIUM: No fracture. SINUSES/MASTOIDS: No fluid or mucosal thickening. ORBITS: No significant abnormality. OTHER: No other significant abnormality. IMPRESSION: No acute intracranial findings. THIS IS AN ELECTRONICALLY VERIFIED FINAL REPORT 02/20/2024 5:25 PM - Electronically signed by Jeramie RIVERA: NICOLE Report ID: [id number] Reading Location: [id number] XR Chest 1Vw Result Date: 02/20/2024 EXAM DESCRIPTION: XR CHEST 1 VIEW REASON FOR STUDY: dyspnea Pt to ED via [facility] from [facility] for c/o increased fatigue and confusion x3 days. Pt has hx of dementia and is baseline AO to self per step daughter but over past 3 days has been more confused than usual. Pt has also been sleeping more. EMS reports facility did a UA and it showed pt has UTI. Denies fever or any c/o pain. TECHNIQUE: 1 radiographic view(s) of the chest. COMPARISON: 10/18/2022 FINDINGS: LUNGS: No focal opacity, pleural effusion, or pneumothorax. HEART/MEDIASTINUM: Cardiac silhouette normal in size. Mediastinal and hilar contours appear normal. LINES/TUBES: None. BONES: No acute osseous abnormality. IMPRESSION: No acute cardiopulmonary abnormality. THIS IS AN ELECTRONICALLY VERIFIED FINAL REPORT 02/20/2024 4:41 PM - Electronically signed by Jeramie Grove M.D. KR: NICOLE Report ID: [id number] Reading Location: [id number] PROGRESS NOTES & MEDICAL DECISION MAKING PROCEDURES I was present for, supervised and directly supervised the arterial line placement performed by the resident. Differential diagnosis: Differential diagnosis includes: ACS, Aortic dissection, Pneumothorax, Pulmonary Embolus, Gustavo/pericarditis, Esophageal abnormality, GI etiology, Pneumonia, Atypical/Non-cardiac (MSK, etc) ED COURSE Pertinent Labs & Imaging studies reviewed. (I have reviewed the lab / findings below.) 5:00 PM - Vascular at bedside 5:11 PM - After discussion with Cardiology ICU, the patient will be admitted to their service for further management of penetrating aortic ulcer. Admitting provider is Dr. Gomez. - I have reviewed the diagnostic findings with the patient and they have had an opportunity to ask me any questions they have about care, diagnosis, and reason for admission. The patient states understanding and agrees to admission. 5:17 PM - Arterial Line placement at this time Hospital Encounter on 03/11/24 CBC W AUTO DIFFERENTIAL Result Value Ref Range WBC 7.9 4.0 - 10.7 x10E9/L RBC Count 4.53 3.90 - 5.20 x10E12/L Hemoglobin 13.5 11.9 - 15.8 g/dL Hematocrit 42.0 34.8 - 46.1 % MCV 92.7 80.0 - 98.0 fL MCH 29.8 26.7 - 33.6 pg MCHC 32.1 31.7 - 36.3 g/dL RDW-CV 13.5 11.3 - 14.8 % Platelet Count 175 150 - 420 x10E9/L MPV 11.6 (H) 7.8 - 11.4 fL Neutrophil % 68.8 41.0 - 74.0 % Lymphocyte % 22.6 17.0 - 47.0 % Monocyte % 6.4 3.0 - 11.0 % Eosinophil % 1.5 0.0 - 7.0 % Basophil % 0.4 0.0 - 1.6 % Immature Granulocytes % 0.3 0.0 - 1.0 % Neutrophil Absolute 5.42 1.60 - 7.50 x10E9/L Lymphocyte Absolute 1.78 1.00 - 4.40 x10E9/L Monocyte Absolute 0.50 0.15 - 1.00 x10E9/L Eosinophil Absolute 0.12 0.00 - 0.60 x10E9/L Basophil Absolute 0.03 0.00 - 0.13 x10E9/L COMPREHENSIVE METABOLIC PANEL Result Value Ref Range BUN 12 7 - 26 mg/dL Creatinine 0.92 0.56 - 0.96 mg/dL Sodium 140 136 - 145 mmol/L Potassium 4.1 3.5 - 4.5 mmol/L Chloride 105 98 - 107 mmol/L CO2 24 22 - 29 mmol/L Glucose 80 70 - 99 mg/dL Calcium 8.7 8.4 - 10.2 mg/dL Protein Total 6.0 6.0 - 8.3 g/dL Albumin 3.0 (L) 3.4 - 5.0 g/dL Bilirubin Total 0.6 0.2 - 1.2 mg/dL Alkaline Phosphatase 63 40 - 150 U/L ALT 8 5 - 55 U/L AST 12 5 - 34 U/L Anion Gap 11 6 - 16 BUN/Creatinine Ratio 13 7 - 23 Osmolality Calculated 289 275 - 295 mOsm/kg Albumin/Globulin Ratio 1.0 (L) 1.1 - 2.3 eGFR by CKD-EPI 60 (L) >=90 mL/min/1.73 m2 MAGNESIUM BLOOD Result Value Ref Range Magnesium 2.0 1.6 - 2.6 mg/dL TROPONIN-I HIGH SENSITIVE BASELINE + 1HR Result Value Ref Range Troponin I High Sensitive 12 <=14 ng/L PT-INR [facility] Result Value Ref Range PT 12.9 12.1 - 14.8 Seconds INR 1.0 See Comment B-TYPE NATRIURETIC PEPTIDE Result Value Ref Range BNP 189 (H) <100 pg/mL TROPONIN-I HIGH SENSITIVE REFLEX 1HOUR Result Value Ref Range Troponin I High Sensitive 15 (H) <=14 ng/L Delta Troponin I HS CRITICAL CARE ADDENDUM: Indication: penetrating aortic ulceration / malignant HTN / CP Service Time: 55 minutes Time Type: Intermittent I provided a total of 55 minutes of critical care excluding separately billable procedures. This includes time with EMS, initial bedside evaluation, reviewing old records, review of testing done while under my care, discussion with the family, nurses, multiple consults and guiding the patient???s care while in the emergency department. Approximant time distribution: 15 minutes - Initial evaluation, d/w involved parties, attempting to gather old records 10 minutes - Documenting medical record 10 minutes - Review of results (EKGs, labs, imaging) 10 minutes - Serial repeat bedside evaluation 10 minutes - Discussing case with multiple providers Please see main chart for details. Excludes separately billable procedures. Amount and/or Complexity of Data Reviewed Triage notes and available nursing notes reviewed Clinical lab tests: ordered and reviewed Tests in the radiology section of CPT??: ordered and reviewed Independent visualization of images: yes Decide to obtain previous medical records or to obtain history from someone other than the patient:yes, see HPI Review and summarize past medical records: yes Discuss the patient with other providers: yes FINAL IMPRESSION 1. Chest pain, unspecified type 2. 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 Ndiaye. Signed: Cristian Rankin. Carlos Ndiaye M.D. Emergency Medicine Physician ORT WORKER * Blayne Santacruz RN - 03/11/2024 2:14 PM CST Bed: [facility] Expected date: Expected time: Means of arrival: Comments: [facility] med 8 - 88 F transfer ORT WORKER documented in this encounter Plan of Treatment Scheduled Orders Name Type Priority Associated Diagnoses Orde r Schedule CT Chest Abdomen Pelvis W Cont Imaging Routine Penetrating atherosclerotic ulcer of aorta (HCC) Expected: 05/01/2024, Expires: 03/13/2025 Scheduled Referrals Name Type Priority Associated Diagnoses Orde r Schedule Ref to Cardiology [facility] Outpatient Referral Routine Penetrating atherosclerotic ulcer of aorta (HCC) Ordered: 03/13/2024 documented as of this encounter Procedures Procedure Name Priority Date/Time Associated Diagnosis Comments CARDIAC EKG ORDER 03/16/2024 1:3 4 PM SUPPORT WORKER CBC W/O DIFFERENTIAL AM Draw 03/13/2024 9:36 AM SUPPORT WORKER RENAL FUNCTION PANEL AM Draw 03/13/2024 9:36 AM SUPPORT WORKER MAGNESIUM BLOOD Routine 03/13/2024 9:36 AM SUPPORT WORKER GLUCOSE - POINT OF CARE Routine 03/12/2024 6:37 AM SUPPORT WORKER CBC W/O DIFFERENTIAL AM Draw 03/12/2024 3:30 AM SUPPORT WORKER RENAL FUNCTION PANEL AM Draw 03/12/2024 3:30 AM SUPPORT WORKER MAGNESIUM BLOOD Routine 03/12/2024 3:30 AM SUPPORT WORKER ED ARTERIAL LINE INSERTION Routine 03/11/2024 6:00 PM SUPPORT WORKER TROPONIN-I HIGH SENSITIVE REFLEX 1HOUR Timed 03/11/2024 4:52 PM SUPPORT WORKER EKG 12-LEAD STAT 03/11/2024 2:42 PM SUPPORT WORKER Chest pain, unspecified type XR CHEST 1VW PORTABLE STAT 03/11/2024 2:38 PM SUPPORT WORKER Chest pain, unspecified type PT-INR [facility] STAT 03/11/2024 2:35 PM SUPPORT WORKER TROPONIN-I HIGH SENSITIVE BASELINE + 1HR STAT 03/11/2024 2:35 PM SUPPORT WORKER CBC W AUTO DIFFERENTIAL STAT 03/11/2024 2:35 PM SUPPORT WORKER B-TYPE NATRIURETIC PEPTIDE STAT 03/11/2024 2:35 PM SUPPORT WORKER COMPREHENSIVE METABOLIC PANEL STAT 03/11/2024 2:35 PM SUPPORT WORKER MAGNESIUM BLOOD STAT 03/11/2024 2:35 PM SUPPORT WORKER documented in this encounter Results * CARDIAC EKG ORDER (03/16/2024 1:34 PM SUPPORT WORKER) Narrative 03/16/2024 1:34 PM SUPPORT WORKER Ordered by an unspecified provider. Scanned Document CARDIAC SERVICES ORD ERABLES * MAGNESIUM BLOOD (03/13/2024 9:36 AM SUPPORT WORKER) Magnesium 2.1 1.6 - 2.6 mg/dL 03/13/2024 10:21 AM SUPPORT WORKER [facility] Blood BLOOD SPECIMEN / Unknown Lab Venipuncture / Unknown 03/13/2024 9:36 AM SUPPORT WORKER 03/13/2024 9:50 AM SUPPORT WORKER Feliciano Gomez MD LAB - CHEMISTRY ORDE MAU [facility] Organization Address City/State/ZIP Co de Phone Number [facility] [address] [place] [address], [facility] [phone] * (ABNORMAL) RENAL FUNCTION PANEL (03/13/2024 9:36 AM [facility] BUN 18 7 - 26 mg/dL 03/13/2024 10:21 AM [facility] Creatinine 1.01(H) 0.56 - 0.96 mg/dL 03/13/2024 10:21 AM [facility] Sodium 137 136 - 145 mmol/L 03/13/2024 10:21 AM [facility] Potassium 4.2 3.5 - 4.5 mmol/L 03/13/2024 10:21 AM [facility] Chloride 104 98 - 107 mmol/L 03/13/2024 10:21 AM [facility] CO2 25 22 - 29 mmol/L 03/13/2024 10:21 AM [facility] Glucose 127(H) 70 - 99 mg/dL 03/13/2024 10:21 AM [facility] Albumin 2.8(L) 3.4 - 5.0 g/dL 03/13/2024 10:21 AM [facility] Calcium 8.6 8.4 - 10.2 mg/dL 03/13/2024 10:21 AM [facility] Phosphorus 3.4 2.9 - 5.1 mg/dL 03/13/2024 10:21 AM [facility] Anion Gap 8 6 - 16 03/13/2024 10:21 AM [facility] BUN/Creatinine Ratio 18 7 - 23 03/13/2024 10:21 AM [facility] Osmolality Calculated 287 275 - 295 mOsm/kg 03/13/2024 10:21 AM [facility] eGFR by CKD-EPI 54(L) >=90 mL/min/1.7 3 m2 03/13/2024 10:21 AM [facility] Blood BLOOD SPECIMEN / Unknown Lab Venipuncture / Unknown 03/13/2024 9:36 AM SUPPORT WORKER 03/13/2024 9:50 AM SUPPORT WORKER Feliciano Gomez MD LAB - CHEMISTRY ORDE MAU [facility] [address] [place] [address], [facility] [phone] * CBC W/O DIFFERENTIAL (03/13/2024 9:36 AM SUPPORT WORKER) WBC 7.5 4.0 - 10.7 x10E9/L 03/13/2024 9:59 AM [facility] RBC Count 4.36 3.90 - 5.20 x10E12/L 03/13/2024 9:59 AM [facility] Hemoglobin 13.0 11.9 - 15.8 g/dL 03/13/2024 9:59 AM [facility] Hematocrit 40.5 34.8 - 46.1 % 03/13/2024 9:59 AM [facility] MCV 92.9 80.0 - 98.0 fL 03/13/2024 9:59 AM [facility] MCH 29.8 26.7 - 33.6 pg 03/13/2024 9:59 AM [facility] MCHC 32.1 31.7 - 36.3 g/dL 03/13/2024 9:59 AM [facility] RDW-CV 13.6 11.3 - 14.8 % 03/13/2024 9:59 AM [facility] Platelet Count 162 150 - 420 x10E9/L 03/13/2024 9:59 AM [facility] MPV 11.2 7.8 - 11.4 fL 03/13/2024 9:59 AM [facility] Blood BLOOD SPECIMEN / Unknown Lab Venipuncture / Unknown 03/13/2024 9:36 AM SUPPORT WORKER 03/13/2024 9:50 AM SUPPORT WORKER Feliciano Gomez MD LAB - HEMATOLOGY ORD ERABLES [facility] [address] [place] [address], [facility] [phone] * (ABNORMAL) GLUCOSE - POINT OF CARE (03/12/2024 6:37 AM SUPPORT WORKER) Pathologist [facility] Glucose WB/POC 69(L) 70 - 99 mg/dL 03/12/2024 5:26 PM [facility] Specimen Type Cap Fingerstick 2023 5:26 PM [facility] Blood BLOOD SPECIMEN / Unknown 03/12/2024 6:37 AM SUPPORT WORKER 03/12/2024 5:26 PM SUPPORT WORKER Feliciano Gomez MD LAB - POINT OF CARE ORDERABLES [address] [address], [place] [phone] * MAGNESIUM BLOOD (03/12/2024 3:30 AM SUPPORT WORKER) [facility] Magnesium 2.0 1.6 - 2.6 mg/dL 03/12/2024 4:14 AM [facility] Blood BLOOD SPECIMEN / Unknown Venipuncture / Unknown 03/12/2024 3:30 AM SUPPORT WORKER 03/12/2024 3:44 AM SUPPORT WORKER Feliciano Gomez MD LAB - CHEMISTRY ORDE RABLES [address] [address], [place] [phone] * (ABNORMAL) RENAL FUNCTION PANEL (03/12/2024 3:30 AM SUPPORT WORKER) [facility] BUN 13 7 - 26 mg/dL 03/12/2024 4:14 AM [facility] Creatinine 0.86 0.56 - 0.96 mg/dL 03/12/2024 4:14 AM [facility] Sodium 137 136 - 145 mmol/L 03/12/2024 4:14 AM [facility] Potassium 4.2 3.5 - 4.5 mmol/L 03/12/2024 4:14 AM [facility] Chloride 110(H) 98 - 107 mmol/L 03/12/2024 4:14 AM [facility] CO2 24 22 - 29 mmol/L 03/12/2024 4:14 AM [facility] Glucose 71 70 - 99 mg/dL 03/12/2024 4:14 AM [facility] Albumin 2.6(L) 3.4 - 5.0 g/dL 03/12/2024 4:14 AM [facility] Calcium 8.3(L) 8.4 - 10.2 mg/dL 03/12/2024 4:14 AM [facility] Phosphorus 3.7 2.9 - 5.1 mg/dL 03/12/2024 4:14 AM [facility] Anion Gap 3(L) 6 - 16 03/12/2024 4:14 AM [facility] BUN/Creatinine Ratio 15 7 - 23 03/12/2024 4:14 AM [facility] Osmolality Calculated 283 275 - 295 mOsm/kg 03/12/2024 4:14 AM [facility] eGFR by CKD-EPI 65(L) >=90 mL/min/1.7 3 m2 03/12/2024 4:14 AM [facility] Blood BLOOD SPECIMEN / Unknown Venipuncture / Unknown 03/12/2024 3:30 AM SUPPORT WORKER 03/12/2024 3:44 AM [facility] Feliciano Gomez MD LAB - CHEMISTRY NANCI LE[place]N [facility] Organization Address City/State/[facility] Co de Phone Number [facility] [address] [place] [address], [facility] [phone] * CBC W/O DIFFERENTIAL (03/12/2024 3:30 AM [facility] WBC 7.2 4.0 - 10.7 x10E9/L 03/12/2024 3:55 AM [facility] RBC Count 3.96 3.90 - 5.20 x10E12/L 03/12/2024 3:55 AM [facility] Hemoglobin 11.9 11.9 - 15.8 g/dL 03/12/2024 3:55 AM [facility] Hematocrit 37.0 34.8 - 46.1 % 03/12/2024 3:55 AM [facility] MCV 93.4 80.0 - 98.0 fL 03/12/2024 3:55 AM [facility] MCH 30.1 26.7 - 33.6 pg 03/12/2024 3:55 AM [facility] MCHC 32.2 31.7 - 36.3 g/dL 03/12/2024 3:55 AM [facility] RDW-CV 13.6 11.3 - 14.8 % 03/12/2024 3:55 AM [facility] Platelet Count 162 150 - 420 x10E9/L 03/12/2024 3:55 AM [facility] MPV 11.1 7.8 - 11.4 fL 03/12/2024 3:55 AM [facility] Blood BLOOD SPECIMEN / Unknown Venipuncture / Unknown 03/12/2024 3:30 AM SUPPORT WORKER 03/12/2024 3:44 AM SUPPORT WORKER Feliciano Gomez MD LAB - HEMATOLOGY ORD ERABLES Performing Organization Address [facility] Co de Phone Number [facility] [address] [place] [address], [facility] [phone] * Arterial Line (03/11/2024 6:00 PM SUPPORT WORKER) Narrative Carlos Ndiaye MD - 03/11/2024 6:00 PM SUPPORT WORKER Eddy Huntley, DO ? 03/11/2024 ??6:00 PM Arterial Line Date/Time: 03/11/2024 6:00 PM Performed by: Eddy Huntley, DO Authorized by: Feliciano Gomez MD ?? Consent: ??Consent obtained: ??Verbal ??Risks discussed: ??Bleeding, infection and pain [place] protocol: ??Patient identity confirmed: ??Verbally with patient, [...] ??Procedure completion: ??Tolerated well, no immediate complications Feliciano Gomez MD PROCEDURE/MINOR SURG ICAL ORDERABLES * (ABNORMAL) TROPONIN-I HIGH SENSITIVE REFLEX 1HOUR (03/11/2024 4:52 PM SUPPORT WORKER) [facility] Troponin I High Sensitive 15(H) <=14 ng/L 03/11/2024 5:52 PM SUPPORT WORKER [facility] Delta Troponin I HS 03/11/2024 5:52 PM SUPPORT WORKER [facility] Comment:Delta value intentio nuno not calculated. Baseline to 1 hour specimen collection interval exceeded. Blood BLOOD SPECIMEN / Unknown Venipuncture / Unknown 03/11/2024 4:52 PM SUPPORT WORKER 03/11/2024 5:18 PM SUPPORT WORKER Carlos Ndiaye MD LAB - CHEMISTRY OR DERABLES [facility] [address] [place] [id number], [facility] [phone] * EKG 12-LEAD (03/11/2024 2:42 PM SUPPORT WORKER) [facility] Ventricular Rate 81 BPM SL MUSE Atrial Rate 81 BPM [facility] MUSE P-R Interval 134 ms [facility] MUSE QRS Duration ms 76 ms [facility] MUSE Q-T Interval ms 384 ms [facility] MUSE QTC Calculation (Bezet) 446 ms [facility] MUSE Calculated P Sarah Ann 75 degrees [facility] MUSE Calculated R Sarah Ann 14 degrees [facility] MUSE Calculated T Sarah Ann 64 degrees [facility] MUSE Interpretation EKG SINUS RHYTHM WITH PREMATURE ATRIAL COMPLEXES NONSPECIFIC ST AND T WAVE ABNORMALITY ABNORMAL ECG NO PREVIOUS ECGS AVAILABLE Confirmed by ARIELLE ALFARO MD ([id number]) on 03/12/2024 8:16:48 AM [facility] MUSE 03/11/2024 2:42 PM SUPPORT WORKER 03/12/2024 8:16 AM SUPPORT WORKER Carlos Ndiaye MD ECG ORDERABLES [facility] MUSE * XR CHEST 1VW PORTABLE (03/11/2024 2:38 PM SUPPORT WORKER) Anatomical Region Laterality Modality Chest Digital Radiogra phy 03/11/2024 2:41 PM SUPPORT WORKER Narrative 03/11/2024 2:46 PM SUPPORT WORKER PROCEDURE: ??XR CHEST 1VW PORTABLE, DATE/TIME OF EXAM: ??03/11/2024 2:39 PM, LOCATION ??[facility] INDICATION: R07.9: Chest pain, unspecified type ADDITIONAL CLINICAL INFORMATION: Ordering Provider Reason For Exam: ??chest pain COMPARISON: Same day CT chest abdomen pelvis. TECHNIQUE: Frontal radiograph of the chest. FINDINGS/IMPRESSION: There is no focal consolidation, pleural effusion, or pneumothorax. The cardiomediastinal silhouette is normal. There is atherosclerotic calcification of the aorta. No displaced fractures identified. Report dictated by Maren Oconnell MD, (Wine Steward/Stewardess). Argenis Guzmán MD have personally reviewed and interpreted this examination/study. > Interpreting Provider: Argenis Morales MD on 03/11/2024 2:46 PM Procedure Note Argenis Morales MD - 03/11/2024 PROCEDURE: XR CHEST 1VW PORTABLE, DATE/TIME OF EXAM: 03/11/2024 2:39PM, LOCATION [facility] INDICATION: R07.9: Chest pain, unspecified type ADDITIONAL CLINICAL INFORMATION: Ordering Provider Reason For Exam: chest pain COMPARISON: Same day CT chest abdomen pelvis. TECHNIQUE: Frontal radiograph of the chest. FINDINGS/IMPRESSION: There is no focal consolidation, pleural effusion, or pneumothorax. The cardiomediastinal silhouette is normal. There is atherosclerotic calcification of the aorta. No displaced fractures identified. Report dictated by Maren Oconnell MD, (Wine Steward/Stewardess). Argenis Guzmán MD have personally reviewed and interpreted this examination/study. > Interpreting Provider: Argenis Morales MD on 03/11/2024 2:46 PM Carlos Ndiaye MD DIAGNOSTIC IMAGING ORDERABLES * (ABNORMAL) B-TYPE NATRIURETIC PEPTIDE (03/11/2024 2:35 PM SUPPORT WORKER) BNP 189(H) <100 pg/mL 03/11/2024 4:12 PM SUPPORT WORKER [facility] Comment: A decision threshold of [...] BLOOD SPECIMEN / Unknown Venipuncture / Unknown 03/11/2024 2:35 PM SUPPORT WORKER 03/11/2024 2:56 PM SUPPORT WORKER Carlos Ndiaye MD LAB - CHEMISTRY OR DERABLES Performing Organization Address City/[facility]/ZIP Co de Phone Number [facility] [address] [place] [id number], [place] [phone] * PT-INR [facility] (03/11/2024 2:35 PM SUPPORT WORKER) Pathologist [facility] PT 12.9 12.1 - 14.8 Seconds 03/11/2024 3:20 PM SUPPORT WORKER [facility] INR 1.0 See Comment 03/11/2024 3:20 PM SUPPORT WORKER [facility] Comment:The suggested therap eutic range for standard coumadin (warfarin) therapy is an INR of 2.0-3.0. For high-risk patients (Mechanical Mitral Valve Prosthesis, etc.), the suggested prophylactic therapeutic range is an INR of 2.5-3.5. Blood BLOOD SPECIMEN / Unknown Venipuncture / Unknown 03/11/2024 2:35 PM SUPPORT WORKER 03/11/2024 2:57 PM SUPPORT WORKER Carlos Ndiaye MD LAB - COAGULATION ORDERABLES Performing Organization Address [facility]/ZIP Co de Phone Number [address] [address], [place] [phone] * TROPONIN-I HIGH SENSITIVE BASELINE + 1HR (03/11/2024 2:35 PM SUPPORT WORKER) [facility] Troponin I High Sensitive 12 <=14 ng/L 03/11/2024 3:27 PM SUPPORT WORKER [facility] Blood BLOOD SPECIMEN / Unknown Venipuncture / Unknown 03/11/2024 2:35 PM SUPPORT WORKER 03/11/2024 2:56 PM SUPPORT WORKER Carlos Ndiaye MD LAB - CHEMISTRY OR DERABLES Performing Organization Address City/[facility]/ZIP Co de Phone Number [address] [address], [place] [phone] * MAGNESIUM BLOOD (03/11/2024 2:35 PM SUPPORT WORKER) Magnesium 2.0 1.6 - 2.6 mg/dL 03/11/2024 3:23 PM [facility] Blood BLOOD SPECIMEN / Unknown Venipuncture / Unknown 03/11/2024 2:35 PM SUPPORT WORKER 03/11/2024 2:56 PM SUPPORT WORKER Carlos Ndiaye MD LAB - CHEMISTRY OR DERABLES [facility] [address] [place] [address], [facility] [phone] * (ABNORMAL) COMPREHENSIVE METABOLIC PANEL (03/11/2024 2:35 PM SUPPORT WORKER) Pathologist [facility] BUN 12 7 - 26 mg/dL 03/11/2024 3:23 PM [facility] Creatinine 0.92 0.56 - 0.96 mg/dL 03/11/2024 3:23 PM [facility] Sodium 140 136 - 145 mmol/L 03/11/2024 3:23 PM [facility] Potassium 4.1 3.5 - 4.5 mmol/L 03/11/2024 3:23 PM [facility] Chloride 105 98 - 107 mmol/L 03/11/2024 3:23 PM [facility] CO2 24 22 - 29 mmol/L 03/11/2024 3:23 PM [facility] Glucose 80 70 - 99 mg/dL 03/11/2024 3:23 PM [facility] Calcium 8.7 8.4 - 10.2 mg/dL 03/11/2024 3:23 PM [facility] Protein Total 6.0 6.0 - 8.3 g/dL 03/11/2024 3:23 PM [facility] Albumin 3.0(L) 3.4 - 5.0 g/dL 03/11/2024 3:23 PM [facility] Bilirubin Total 0.6 0.2 - 1.2 mg/dL 03/11/2024 3:23 PM [facility] Alkaline Phosphatase 63 40 - 150 U/L 03/11/2024 3:23 PM [facility] ALT 8 5 - 55 U/L 03/11/2024 3:23 PM [facility] AST 12 5 - 34 U/L 03/11/2024 3:23 PM [facility] Anion Gap 11 6 - 16 03/11/2024 3:23 PM [facility] BUN/Creatinine Ratio 13 7 - 23 03/11/2024 3:23 PM [facility] Osmolality Calculated 289 275 - 295 mOsm/kg 03/11/2024 3:23 PM [facility] Albumin/Globulin Ratio 1.0(L) 1.1 - 2.3 03/11/2024 3:23 PM [facility] eGFR by CKD-EPI 60(L) >=90 mL/min/1.7 3 m2 03/11/2024 3:23 PM [facility] Blood BLOOD SPECIMEN / Unknown Venipuncture / Unknown 03/11/2024 2:35 PM SUPPORT WORKER 03/11/2024 2:56 PM SUPPORT WORKER Carlos Ndiaye MD LAB - CHEMISTRY OR DERABLES [facility] [address] [place] [address], [facility] [phone] * (ABNORMAL) CBC W AUTO DIFFERENTIAL (03/11/2024 2:35 PM SUPPORT WORKER) WBC 7.9 4.0 - 10.7 x10E9/L 03/11/2024 3:11 PM [facility] RBC Count 4.53 3.90 - 5.20 x10E12/L 03/11/2024 3:11 PM [facility] Hemoglobin 13.5 11.9 - 15.8 g/dL 03/11/2024 3:11 PM [facility] Hematocrit 42.0 34.8 - 46.1 % 03/11/2024 3:11 PM [facility] MCV 92.7 80.0 - 98.0 fL 03/11/2024 3:11 PM [facility] MCH 29.8 26.7 - 33.6 pg 03/11/2024 3:11 PM [facility] MCHC 32.1 31.7 - 36.3 g/dL 03/11/2024 3:11 PM [facility] RDW-CV 13.5 11.3 - 14.8 % 03/11/2024 3:11 PM [facility] Platelet Count 175 150 - 420 x10E9/L 03/11/2024 3:11 PM [facility] MPV 11.6(H) 7.8 - 11.4 fL 03/11/2024 3:11 PM [facility] Neutrophil % 68.8 41.0 - 74.0 % 03/11/2024 3:11 PM [facility] Lymphocyte % 22.6 17.0 - 47.0 % 03/11/2024 3:11 PM [facility] Monocyte % 6.4 3.0 - 11.0 % 03/11/2024 3:11 PM [facility] Eosinophil % 1.5 0.0 - 7.0 % 03/11/2024 3:11 PM [facility] Basophil % 0.4 0.0 - 1.6 % 03/11/2024 3:11 PM [facility] Immature Granulocytes % 0.3 0.0 - 1.0 % 03/11/2024 3:11 PM [facility] Neutrophil Absolute 5.42 1.60 - 7.50 x10E9/L 03/11/2024 3:11 PM [facility] Lymphocyte Absolute 1.78 1.00 - 4.40 x10E9/L 03/11/2024 3:11 PM [facility] Monocyte Absolute 0.50 0.15 - 1.00 x10E9/L 03/11/2024 3:11 PM [facility] Eosinophil Absolute 0.12 0.00 - 0.60 x10E9/L 03/11/2024 3:11 PM [facility] Basophil Absolute 0.03 0.00 - 0.13 x10E9/L 03/11/2024 3:11 PM [facility] Blood BLOOD SPECIMEN / Unknown Venipuncture / Unknown 03/11/2024 2:35 PM SUPPORT WORKER 03/11/2024 2:56 PM SUPPORT WORKER Carlos Ndiaye MD LAB - HEMATOLOGY O RDERABLES [address] [address], [facility] [phone] documented in this encounter Visit Diagnoses Diagnosis Chest pain, unspecified type Penetrating atherosclerotic ulcer of aorta (HCC) Malignant hypertension Essential hypertension, malignant Malignant hypertension Essential hypertension, malignant Chest pain, unspecified type Penetrating atherosclerotic ulcer of aorta (HCC) documented in this encounter Administered Medications Inactive Administered Medications - up to 3 most recent administrations Medication Order MAR Action Action Date Dose Rate Site 0.9% NaCl injection 1-10 mL 1-10 mL, Intracatheter, PRN, Other, peripheral line flush, Starting on Sat03/11/24 at 1430, Until Sat03/13/24 at 1802, Flush peripheral IV catheter with 1-10 mL of normal saline before and after medications and prn to clear blood from the line or to verify patency. 0.9% NaCl injection 3 mL 3 mL, Intracatheter, EVERY 8 HOURS, First dose on Sat03/11/24 at 1515, Until Discontinued, Flush peripheral IV catheter with 3 mL of normal saline every 8 hours. $ Given 03/13/2024 2:25 PM SUPPORT WORKER 3 mL $ Given 03/12/2024 8:23 PM SUPPORT WORKER 3 mL $ Given 03/12/2024 2:24 PM SUPPORT WORKER 3 mL aspirin chew tablet 81 mg 81 mg, Oral, DAILY, First dose on Sat03/11/24 at 2030, Until Discontinued $ Given 03/13/2024 9:24 AM SUPPORT WORKER 81 mg $ Given 03/12/2024 9:12 AM SUPPORT WORKER 81 mg $ Given 03/11/2024 8:19 PM SUPPORT WORKER 81 mg atorvastatin (Lipitor) tablet 20 mg 20 mg, Oral, AT BEDTIME, First dose on Sat03/11/24 at 2100, Until Discontinued $ Given 03/12/2024 8:23 PM SUPPORT WORKER 20 mg $ Given 03/11/2024 8:19 PM SUPPORT WORKER 20 mg carvedilol (Coreg) tablet 25 mg 25 mg, Oral, 2 TIMES DAILY WITH MEALS, First dose (after last modification) on Marily 03/12/24 at 1800, Until Discontinued, Take with food $ Given 03/13/2024 9:21 AM SUPPORT WORKER 25 mg $ Given 03/12/2024 5:24 PM SUPPORT WORKER 25 mg carvedilol (Coreg) tablet 6.25 mg 6.25 mg, Oral, 2 TIMES DAILY WITH MEALS, First dose on Sat03/11/24 at 2030, Until Discontinued, Take with food $ Given 03/12/2024 9:09 AM SUPPORT WORKER 6.25 mg $ Given 03/11/2024 8:19 PM SUPPORT WORKER 6.25 mg carvedilol (Coreg) tablet 6.25 mg 6.25 mg, Oral, Once, 1 dose, On Sat03/12/24 at 1015, Take with food $ Given 03/12/2024 10:38 AM SUPPORT WORKER 6.25 mg cholestyramine light (Questran Light; Prevalite) packet 4 g 4 g, Oral, DAILY at 1300, First dose on Sat03/11/24 at 2030, Until Discontinued $ Given 03/13/2024 2:25 PM SUPPORT WORKER 4 g $ Given 03/12/2024 2:24 PM SUPPORT WORKER 4 g $ Given 03/11/2024 8:20 PM SUPPORT WORKER 4 g esmolol (Brevibloc) 2,500 mg in 250 mL infusion 0-200 mcg/kg/min ? 63.5 kg (0-76.2 mL/hr), Intravenous, CONTINUOUS, Starting on Sat03/11/24 at 1715, Until Sat03/12/24 at 0848, Titration Parameters: Standard Parameters, Indication: Tachycardia, Initiate infusion at: 50 mcg/kg/min, Titrate infusion by: 25-50 mcg/kg/min, Titrate every: 2 minutes, To maintain a: Other HR, see comments, Other SBP, see comments, Notify Physician: unable to maintain ordered clinical parameter despite max dose, Restart Infusion: Medication may be restarted at last dose/rate administered before titrated to off. If infusion has been off for 4 or more hours, contact provider prior to restarting infusion. Rate Change 03/12/2024 8:43 AM SUPPORT WORKER 75 mcg/kg/min 28.58 mL/hr Rate Change 03/12/2024 8:35 AM SUPPORT WORKER 100 mcg/kg/min 38.1 mL/ hr Rate Change 03/12/2024 8:23 AM SUPPORT WORKER 75 mcg/kg/min 28.58 mL/ hr esmolol (Brevibloc) 2,500 mg in 250 mL infusion 0-200 mcg/kg/min ? 63.5 kg (0-76.2 mL/hr), Intravenous, CONTINUOUS, Starting on Sat03/12/24 at 0900, Until Sat03/12/24 at 1458, Titration Parameters: Standard Parameters, Indication: Tachycardia, Initiate infusion at: 50 mcg/kg/min, Titrate infusion by: 25-50 mcg/kg/min, Titrate every: 2 minutes, To maintain a: Other HR, see comments, Other SBP, see comments, Notify Physician: unable to maintain ordered clinical parameter despite max dose, Restart Infusion: Medication may be restarted at last dose/rate administered before titrated to off. If infusion has been off for 4 or more hours, contact provider prior to restarting infusion. Rate Change 03/12/2024 2:36 PM SUPPORT WORKER 25 mcg/kg/min 9.53 mL/hr Rate Change 03/12/2024 2:32 PM SUPPORT WORKER 50 mcg/kg/min 19.05 mL/ hr Rate Change 03/12/2024 2:29 PM SUPPORT WORKER 75 mcg/kg/min 28.58 mL/ hr esmolol (Brevibloc) bolus from bag 31,750 mcg 31,750 mcg (500 mcg/kg ? 63.5 kg), Intravenous, BOLUS FROM BAG ONCE, 1 dose, On Sat03/11/24 at 1715 Bolus From Bag 03/11/2024 6:08 PM SUPPORT WORKER 31,750 mcg FLUoxetine (PROzac) capsule 20 mg 20 mg, Oral, DAILY, First dose on Sat03/12/24 at 0900, Until Discontinued $ Given 03/13/2024 9:20 AM SUPPORT WORKER 20 mg $ Given 03/12/2024 9:11 AM SUPPORT WORKER 20 mg hydrALAZINE (Apresoline) injection 10 mg 10 mg, Intravenous, EVERY 30 MIN PRN, SBP>120, 2 doses, Starting on Sat03/11/24 at 1539, Until Sat03/12/24 at 0530 $ Given 03/12/2024 5:30 AM SUPPORT WORKER 10 mg $ Given 03/11/2024 4:36 PM SUPPORT WORKER 10 mg hyoscyamine CR 12hr (Levbid) tablet 0.375 mg 0.375 mg, Oral, DAILY, First dose on Sat03/12/24 at 0900, Until Discontinued, Do not crush or chew. $ Given 03/13/2024 9:20 AM SUPPORT WORKER 0.375 mg $ Given 03/12/2024 9:11 AM SUPPORT WORKER 0.375 mg labetalol (Normodyne; Trandate) injection 10 mg 10 mg, Intravenous, EVERY 10 MIN PRN, Other, SBP>130, 2 doses, Starting on Sat03/11/24 at 1517, Until Sat03/11/24 at 1540, Hold for HR <60 Max IV dose is 300mg/24 hours. $ Given 03/11/2024 3:40 PM SUPPORT WORKER 10 mg $ Given 03/11/2024 3:19 PM SUPPORT WORKER 10 mg labetalol (Normodyne;Trandate) 5 mg/mL injection ADS Med 1 dose, Starting on Sat03/11/24 at 1518, Until Sat03/11/24 at 1518, Created by cabinet override $ Given 03/11/2024 3:18 PM SUPPORT WORKER 20 mg losartan (Cozaar) tablet 25 mg 25 mg, Oral, DAILY, First dose on Sat03/11/24 at 2045, Until Discontinued $ Given 03/12/2024 9:11 AM SUPPORT WORKER 25 mg $ Given 03/11/2024 8:20 PM SUPPORT WORKER 25 mg losartan (Cozaar) tablet 25 mg 25 mg, Oral, DAILY, First dose (after last modification) on Sat03/13/24 at 0900, Until Discontinued $ Given 03/13/2024 9:21 AM SUPPORT WORKER 25 mg melatonin tablet 3 mg 3 mg, Oral, AT BEDTIME, First dose on Sat03/12/24 at 2345, Until Discontinued $ Given 03/12/2024 11:11 PM SUPPORT WORKER 3 mg niCARdipine (Cardene) 20 mg in NaCl 200 mL infusion 0-15 mg/hr (0-150 mL/hr), Intravenous, CONTINUOUS, Starting on Sat03/11/24 at 1845, Until Sat03/12/24 at 1235, Change the infusion site every 12 hours if a peripheral vein is used, Titration Parameters: Standard Parameters, Indication: Stroke-Hypertension, Initiate infusion at: 5 mg/hr, Titrate infusion by: 2.5 mg/hr, Titrate every: 5 minutes, To maintain a: Other - see comments, Notify physician if: SBP greater than - Other - see comments, despite max dose Rate Change 03/11/2024 9:01 PM SUPPORT WORKER 1.25 mg/hr 12.5 mL/hr Current Rate 03/11/2024 9:01 PM SUPPORT WORKER 2.5 mg/hr 25 mL/hr Restarted 03/11/2024 8:09 PM SUPPORT WORKER 2.5 mg/hr 25 mL/hr pantoprazole EC (Protonix) tablet 40 mg 40 mg, Oral, DAILY, First dose on Marily 03/12/24 at 0900, Until Discontinued, Do not crush, chew, or cut in half. $ Given 03/13/2024 9:21 AM SUPPORT WORKER 40 mg $ Given 03/12/2024 9:12 AM SUPPORT WORKER 40 mg documented in this encounter Active and Recently Administered Medications Times are shown in SUPPORT WORKER. Scheduled Medication Order 03/11/2024 03/12/2024 03/13/2024 0.9% NaCl injection 3 mL(Linked Group 1) 3 mL, Intracatheter, EVERY 8 HOURS, First dose on Sat03/11/24 at 1515, Until Discontinued, Flush peripheral IV catheter with 3 mL of normal saline every 8 hours. 1515 (Due)2019 ($ Given - Provider: Dylan Hernandez RN) 0524 ($ Given - Provider: Dylan Hernandez RN)1424 ($ Given - Provider: Laury Pedro RN)2022 ($ Given - Provider: Maura Webb RN) 0631 (Not Administered - Provider: Maura Webb RN - Reason: Patient sleeping)1425 ($ Given - Provider: Melisa Forte RN) aspirin chew tablet 81 mg 81 mg, Oral, DAILY, First dose on Sat03/11/24 at 2030, Until Discontinued 2018 ($ Given - Provider: Dylan Hernandez RN) 0912 ($ Given - Provider: Laury Pedro RN) 0924 ($ Given - Provider: SN Jackie) atorvastatin (Lipitor) tablet 20 mg 20 mg, Oral, AT BEDTIME, First dose on Sat03/11/24 at 2100, Until Discontinued 2018 ($ Given - Provider: Dylan Hernandez RN) 2022 ($ Given - Provider: Maura Webb RN) carvedilol (Coreg) tablet 25 mg 25 mg, Oral, 2 TIMES DAILY WITH MEALS, First dose (after last modification) on Sat03/12/24 at 1800, Until Discontinued, Take with food 1724 ($ Given - Provider: Laury Pedro RN) 0921 ($ Given - Provider: SN Jackie) carvedilol (Coreg) tablet 6.25 mg (CANCELED) 6.25 mg, Oral, 2 TIMES DAILY WITH MEALS, First dose on Sat03/11/24 at 2030, Until Discontinued, Take with food 2019 ($ Given - Provider: Dylan Hernandez RN) 0909 ($ Given - Provider: Laury Pedro RN) carvedilol (Coreg) tablet 6.25 mg (COMPLETED) 6.25 mg, Oral, Once, 1 dose, On Sat03/12/24 at 1015, Take with food 1038 ($ Given - Provider: Laury Pedro RN) cholestyramine light (Questran Light; Prevalite) packet 4 g 4 g, Oral, DAILY at 1300, First dose on Sat03/11/24 at 2030, Until Discontinued 2019 ($ Given - Provider: Dylan Hernandez RN) 1424 ($ Given - Provider: Laury Pedro RN) 1425 ($ Given - Provider: Melisa Forte, ZACH) esmolol (Brevibloc) bolus from bag 31,750 mcg (COMPLETED) 31,750 mcg (500 mcg/kg ? 63.5 kg), Intravenous, BOLUS FROM BAG ONCE, 1 dose, On Sat03/11/24 at 1715 1808 (Bolus From Bag - Provider: Hailee Pelletier RN) FLUoxetine (PROzac) capsule 20 mg 20 mg, Oral, DAILY, First dose on Sat03/12/24 at 0900, Until Discontinued 0911 ($ Given - Provider: Laury Pedro RN) 0920 ($ Given - Provider: SN Jackie) hyoscyamine CR 12hr (Levbid) tablet 0.375 mg 0.375 mg, Oral, DAILY, First dose on Sat03/12/24 at 0900, Until Discontinued, Do not crush or chew. 0911 ($ Given - Provider: Laury Pedro RN) 0920 ($ Given - Provider: SN Jackie) losartan (Cozaar) tablet 25 mg (CANCELED) 25 mg, Oral, DAILY, First dose on Sat03/11/24 at 2045, Until Discontinued 2019 ($ Given - Provider: Dylan Hernandez RN) 09 ($ Given - Provider: Laury Pedro RN) losartan (Cozaar) tablet 25 mg 25 mg, Oral, DAILY, First dose (after last modification) on Sat03/13/24 at 0900, Until Discontinued 920 ($ Given - Provider: SN Jackie) melatonin tablet 3 mg 3 mg, Oral, AT BEDTIME, First dose on Sat03/12/24 at 2345, Until Discontinued 231 ($ Given - Provider: Maura Webb RN) pantoprazole EC (Protonix) tablet 40 mg 40 mg, Oral, DAILY, First dose on Sat03/12/24 at 0900, Until Discontinued, Do not crush, chew, or cut in half. 09 ($ Given - Provider: Laury Pedro RN) 09 ($ Given - Provider: SN Jackie) Continuous Medication Order 03/11/2024 03/12/2024 03/13/2024 esmolol (Brevibloc) 2,500 mg in 250 mL infusion (CANCELED) 0-200 mcg/kg/min ? 63.5 kg (0-76.2 mL/hr), Intravenous, CONTINUOUS, Starting on Sat03/11/24 at 1715, Until Sat03/12/24 at 0848, Titration Parameters: Standard Parameters, Indication: Tachycardia, Initiate infusion at: 50 mcg/kg/min, Titrate infusion by: 25-50 mcg/kg/min, Titrate every: 2 minutes, To maintain a: Other HR, see comments, Other SBP, see comments, Notify Physician: unable to maintain ordered clinical parameter despite max dose, Restart Infusion: Medication may be restarted at last dose/rate administered before titrated to off. If infusion has been off for 4 or more hours, contact provider prior to restarting infusion. 1801 ($ New Bag/Syringe - Provider: Hailee Pelletier RN)1807 (Rate Change - Provider: Dylan Hernandez RN)1810 (Current Rate - Provider: Dylan Hernandez RN)1813 (Current Rate - Provider: Dylan Hernandez RN)1817 (Paused - Provider: Dylan Hernandez RN)181 (Rate Change - Provider: Hailee Pelletier, RN)1823 (Paused - Provider: Dylan Hernandez RN)1823 (Rate Change - Provider: Hailee Pelletier, RN)1831 (Rate Change - Provider: Hailee Pelletier, RN)1901 (Current Rate - Provider: Dylan Hernandez RN)2000 (Current Rate - Provider: Dylan Hernandez RN)210 (Current Rate - Provider: Dylan Hernandez RN)212 (Rate Change - Provider: Dylan Hernandez RN)220 (Current Rate - Provider: Dylan Hernandez RN)220 (Current Rate - Provider: Dylan Hernandez RN)220 (Current Rate - Provider: Dylan Hernandez RN)2235 (Rate Change - Provider: Dylan Hernandez RN)2301 (Current Rate - Provider: Dylan Hernandez RN)2328 (Rate Change - Provider: Dylan Hernandez RN)2338 (Stopped - Provider: Dylan Hernandez RN)2338 ($ New Bag/Syringe - Provider: Dylan Hernandez RN) 0001 (Current Rate - Provider: Dylan Hernandez RN)0101 (Current Rate - Provider: Dylan Hernandez RN)0201 (Current Rate - Provider: Dylan Hernandez RN)0301 (Current Rate - Provider: Dylan Hernandez RN)0320 (Rate Change - Provider: Dylan Hernandez RN)0352 (Rate Change - Provider: Dylan Hernandez, ZACH)0401 (Current Rate - Provider: Dylan Hernandez, ZACH)0522 (Rate Change - Provider: Laury Pedro, ZACH)0731 ($ New Bag/Syringe - Provider: Dylan Hernandez RN)0748 (Rate Change - Provider: Laury Pedro, RN)0823 (Rate Change - Provider: Laury Pedro, RN)0835 (Rate Change - Provider: Laury Pedro, RN)0843 (Rate Change - Provider: Laury Pedro RN) esmolol (Brevibloc) 2,500 mg in 250 mL infusion (CANCELED)(Linked Group 2) 0-200 mcg/kg/min ? 63.5 kg (0-76.2 mL/hr), Intravenous, CONTINUOUS, Starting on Marily 03/12/24 at 0900, Until Marily 03/12/24 at 1458, Titration Parameters: Standard Parameters, Indication: Tachycardia, Initiate infusion at: 50 mcg/kg/min, Titrate infusion by: 25-50 mcg/kg/min, Titrate every: 2 minutes, To maintain a: Other HR, see comments, Other SBP, see comments, Notify Physician: unable to maintain ordered clinical parameter despite max dose, Restart Infusion: Medication may be restarted at last dose/rate administered before titrated to off. If infusion has been off for 4 or more hours, contact provider prior to restarting infusion. 0914 (*Current Bag - New Order - Provider: Laury Pedro RN)0922 (Rate Change - Provider: Laury Pedro RN)1036 (Rate Change - Provider: Laury Pedro RN)1042 (Current Rate - Provider: Laury Pedro RN)1042 (Rate Change - Provider: Laury Pedro RN)1108 (Rate Change - Provider: Laury Pedro RN)1108 (Stopped - Provider: Laury Pedro RN)1214 (Restarted - Provider: Laury Pedro RN)1221 (Rate Change - Provider: Laury Pedro RN)1225 (Rate Change - Provider: Laury Pedro RN)1245 (Rate Change - Provider: Laury Pedro RN)1251 (Current Rate - Provider: Laury Pedro RN)1251 (Rate Change - Provider: Laury Pedro RN)1306 (Current Rate - Provider: Laury Pedro RN)1306 (Rate Change - Provider: Laury Pedro RN)1318 (Rate Change - Provider: Laury Pedro RN)1321 (Rate Change - Provider: Laury Pedro RN)1350 (Rate Change - Provider: Laury Pedro RN)1401 (Rate Change - Provider: Laury Pdero RN)1402 (Current Rate - Provider: Laury Pedro RN)1424 (Rate Change - Provider: Laury Pedro RN)1425 (Rate Change - Provider: Laury Pedro RN)1429 (Rate Change - Provider: Laury Pedro RN)1432 (Rate Change - Provider: Laury Pedro RN)1436 (Rate Change - Provider: Laury Pedro RN)1444 (Stopped - Provider: Laury Pedro RN) niCARdipine (Cardene) 20 mg in NaCl 200 mL infusion (CANCELED) 0-15 mg/hr (0-150 mL/hr), Intravenous, CONTINUOUS, Starting on Sat03/11/24 at 1845, Until Marily 03/12/24 at 1235, Change the infusion site every 12 hours if a peripheral vein is used, Titration Parameters: Standard Parameters, Indication: Stroke-Hypertension, Initiate infusion at: 5 mg/hr, Titrate infusion by: 2.5 mg/hr, Titrate every: 5 minutes, To maintain a: Other - see comments, Notify physician if: SBP greater than - Other - see comments, despite max dose 181 ($ New Bag/Syringe - Provider: Hailee Pelletier RN)182 (Rate Change - Provider: Dylan Hernandez RN)182 (Rate Change - Provider: Hailee Pelletier, ZACH)190 (Current Rate - Provider: Dylan Hernandez RN)190 (Rate Change - Provider: Dylan Hernandez RN)190 (Rate Change - Provider: Dylan Hernandez, ZACH)191 (Paused - Provider: Dylan Hernandez RN)2008 (Restarted - Provider: Dylan Hernandez RN)2100 (Current Rate - Provider: Dylan Hernandez, ZACH)2100 (Rate Change - Provider: Dylan Hernandez, ZACH)2115 (Stopped - Provider: Dylan Hernandez RN) PRN Medication Order 03/11/2024 03/12/2024 03/13/2024 0.9% NaCl injection 1-10 mL(Linked Group 1) 1-10 mL, Intracatheter, PRN, Other, peripheral line flush, Starting on Sat03/11/24 at 1430, Until Sat03/13/24 at 1802, Flush peripheral IV catheter with 1-10 mL of normal saline before and after medications and prn to clear blood from the line or to verify patency. hydrALAZINE (Apresoline) injection 10 mg (COMPLETED) 10 mg, Intravenous, EVERY 30 MIN PRN, SBP>120, 2 doses, Starting on Sat03/11/24 at 1539, Until Marily 03/12/24 at 0530 1636 ($ Given - Provider: Hailee Pelletier RN) 0530 ($ Given - Provider: Dylan Hernandez RN) labetalol (Normodyne; Trandate) injection 10 mg (COMPLETED) 10 mg, Intravenous, EVERY 10 MIN PRN, Other, SBP>130, 2 doses, Starting on Sat03/11/24 at 1517, Until Sat03/11/24 at 1540, Hold for HR <60 Max IV dose is 300mg/24 hours. 1519 ($ Given - Provider: Hailee Pelletier RN)1540 ($ Given - Provider: Hailee Pelletier RN) No Frequency Medication Order 03/11/2024 03/12/2024 03/13/2024 labetalol (Normodyne;Trandate) 5 mg/mL injection ADS Med (COMPLETED) 1 dose, Starting on Sat03/11/24 at 1518, Until Sat03/11/24 at 1518, Created by cabinet override 1518 ($ Given - Provider: Hailee Pelletier RN - Comment: overide pull) Linked Groups Order Group 1: SALINE LOCK, INSERT AND MAINTAIN (CANCELED) Routine, CONTINUOUS, Starting on Sat03/11/24 at 1445, Until Specified, New collection, Task Completed: Yes And 0.9% NaCl injection 3 mLJump to med 3 mL, Intracatheter, EVERY 8 HOURS, First dose on Sat03/11/24 at 1515, Until Discontinued, Flush peripheral IV catheter with 3 mL of normal saline every 8 hours. And 0.9% NaCl injection 1-10 mLJump to med 1-10 mL, Intracatheter, PRN, Other, peripheral line flush, Starting on Sat03/11/24 at 1430, Until Sat03/13/24 at 1802, Flush peripheral IV catheter with 1-10 mL of normal saline before and after medications and prn to clear blood from the line or to verify patency. Group 2: esmolol (Brevibloc) 2,500 mg in 250 mL infusion (CANCELED)Jump to med 0-200 mcg/kg/min ? 63.5 kg (0-76.2 mL/hr), Intravenous, CONTINUOUS, Starting on Marily 03/12/24 at 0900, Until Marily 03/12/24 at 1458, Titration Parameters: Standard Parameters, Indication: Tachycardia, Initiate infusion at: 50 mcg/kg/min, Titrate infusion by: 25-50 mcg/kg/min, Titrate every: 2 minutes, To maintain a: Other HR, see comments, Other SBP, see comments, Notify Physician: unable to maintain ordered clinical parameter despite max dose, Restart Infusion: Medication may be restarted at last dose/rate administered before titrated to off. If infusion has been off for 4 or more hours, contact provider prior to restarting infusion. documented in this encounter Care Teams Data Entry Operator Relationship Specialty Start Date End Date Ada Rahman APRN-VENKATESH [address] [place] [address] PCP - General Nurse Practitioner Family 03/11/24 None, Physician [address] [place] [address] PCP - General 03/13/24 Ada Rahman APRN-CNP [address] [place] [address] Nurse Practitioner Family 03/13/24 documented as of this encounter
--- OUTSIDE RECORDS SUMMARY | 2024-05-01 13:45 | XMS_ITS | Encounter Summary ---
Author Organization [facility] Address [address] [place] [address] Care Team Providers Care Distribution Coordinator Name Role Phone None, Physician Primary Care Provider Liu Ada Parker SENIOR ENGINEERING TECHNICIAN-UNDERWATER PHOTOGRAPHER Unavailable [phone] Encounter Details Date Type Department Care Team (Latest Contact Info) Description 03/14/2024 Travel Social History Tobacco Use Types Packs/Day [...] and heating? Patient unable to answer 03/14/2024 [facility] [place] [facility] - Occupational Stress [...] any time in the past 12 m [facility], were you homeless or living in a fdc (including now)? Patient unable to answer 03/14/2024 [...] on filedocumented in this encounter Care Teams Distribution Coordinator Relationship Specialty Start Date End Date None, Physician [address] [place] [address] PCP - General 03/13/24 Ada Rahman, SENIOR ENGINEERING TECHNICIAN-UNDERWATER PHOTOGRAPHER [address] [place] [id number] Nurse Practitioner Family 03/13/24 documented as of this encounter
--- OUTSIDE RECORDS SUMMARY | 2024-05-01 13:45 | XMS_ITS | Encounter Summary ---
Author Organization [facility] Address [address] [place] [address] Care Team Providers Care Scheme Technician Name Role Phone None, Physician Primary Care Provider Unavailmathew Ada Parker ROBOTICS TESTING TECHNICIAN-ELECTRIC MOTOR REPAIR SUPERVISOR Unavailable [phone] Reason for Referral * Consultation (Routine) - Open Specialty Diagnoses / Procedures Referred By Pina jean-baptiste Referred To Contact Diagnoses Fall, initial encounter Alexander Soto DO [address] [place] [address] Referral ID Status Reason Start Date Expiration Date V isits Requested Visits Authorized [id number] Open Specialty Services Required 04/08/2024 04/08/2025 1 1 PROGRAMMER Reason for Visit * Reason Comments Fall Pt BIBair with cc of laceration to the forehead secondary to fall. Air team reports history of dementia. Pt arrived AO1, with a GCS of 8. * Auth/Cert (Routine) Specialty Diagnoses / Procedures Referred By Pina jean-baptiste Referred To Contact Referral ID Status Reason Start Date Expiration Date Visits Re quested Visits Authorized [id number] 1 1 Encounter Details Date Type Department Care Team (Late st Contact Info) Description 03/13/2024 9:48 PM VBA PROGRAMMER - 04/08/2024 4:15 PM VBA PROGRAMMER Hospital Encounter AURELIO JORDAN [address] [place] [address] Luther Bridges MD [address] [facility] [place] [address] Santiago Barba MD [address] [facility] DIV OF EMERGENCY MEDICINE [place], [place] Lennie Anna MD [address] [facility] 2L [place] [address] Andre Cesar MD [address] [place] [address] Alexander Soto DO [address] [place] [address] Internal Medicine Discharge Disposition: Rehab:Inpatient Social History Tobacco Use Types Packs/Day Years [...] and heating? Not hard at all 03/28/2024 [facility] [place] [facility] - Occupational Stress [...] any time in the past 12 m [facility], were you homeless or living in a prison (including now)? No 03/28/2024 Sex and Gender Information Value Date Recorded Sex Assigned at Not on file Gender Identity Not on file Sexual Orientation Not on file documented as of this encounter Last Filed Vital Signs Vital Sign Reading Time Taken Comments Blood Pressure 149/72 04/08/2024 7:42 AM VBA PROGRAMMER Pulse 58 04/08/2024 7:42 AM VBA PROGRAMMER Temperature 36.2 ??C (97.2 ??F) 04/08/2024 7:42 AM CS T Respiratory Rate 16 04/07/2024 11:30 PM VBA PROGRAMMER Oxygen Saturation 98% 04/08/2024 3:57 PM VBA PROGRAMMER Inhaled Oxygen Concentration 30% 03/19/2024 1 2:00 PM VBA PROGRAMMER Weight 87.8 kg (193 lb 9.6 oz) 03/19/2024 4:00 A M VBA PROGRAMMER Height 170.2 cm (5' 7 ) 03/14/2024 3:49 AM VBA PROGRAMMER Body Mass Index 30.32 03/14/2024 3:49 AM VBA PROGRAMMER documented in this encounter Functional Status Functional [...] Yes 03/14/2024 documented as of this encounter Discharge Summaries * Alexander Soto, DO - 04/08/2024 1:40 PM CST HOSPITALIST DISCHARGE SUMMARY NAME: Emerald Villafana : 1935 DATE OF ADMISSION: 03/13/2024 DATE OF DISCHARGE: 04/08/2024 FINAL DIAGNOSES: Include all new and active diagnoses. Principal Problem: Subarachnoid bleed (HCC) Active Problems: Altered mental status, unspecified altered mental status type Fall, initial encounter Trauma Impaired mobility and ADLs Acute pain Subdural hematoma (HCC) DISCHARGE DESTINATION: shelter facility FOLLOW UP PLAN: Include list of active issues: Next steps Testing & Referrals Scheduled: Testing & Referrals TBD: Timing Provider [facility] No need for NSGY follow up PENDING TEST RESULTS: none INCIDENTAL FINDINGS REQUIRING FOLLOW UP: none READMISSION RISK SCORE: 21+: high 30 day readmission risk 0-20: low-moderate 30 day readmission risk 17 at 1:40 PM 04/08/2024. Secondary/Resolved/Significant Prior Diagnoses: none PRESENTING HISTORY: Per Dr. Dolan: Emerald Villafana is 88 year old female with history of CAD s/p stent, dementia, COPD, HLD, HTN, GERDthat initially presented to OSH for right sided abdominal pain and chest pain radiating to left arm, transferred to [facility] on 03/11/2024 for higher level of care. History obtained by chart review and family at bedside as patient disoriented at baseline. At OSH, CT showed penetrating atherosclerotic ulcer with associated small intramural hematoma along the distal aortic arch. Transferred to [facility] ED. In ED, BP 186/101, HR 107, [...] patient lives in memory care facility at [facility], in assisted living. Gets help with taking medications, bathing, and gets taken down for meals but is otherwise able to perform ADLs. Walks with walker. 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 Hospital course complicated by delirium with agitation, TBI, resp failure and shock. Patient als o treated for UTI, completed 5 days IV ceftriaxone. Patient transferred from Trauma service to [facility] unit on 03/31 for further management. Accepted to [facility], discharged on 04/08/24 POA ACTIVATED STATUS: YES RADIOLOGY: (last 7 days) + additional pertinent studies CT Head Wo Contrast Result Date: 04/04/2024 IMPRESSION: 1.No new intracranial hemorrhage identified. 2.Interval near complete resolution of a small amount of subdural blood products along the left tentorial leaflet and subarachnoid blood products in the bilateral cerebral sulci and cerebral fissures. 3.Bilateral chronic subdural fluid collections are similar in maximum thickness, now decrease in density and now nearly isodense relative to CSF. Report dictated by Jann Viera MD (senior resident care director). I, Gabe Page MD have personally reviewed and interpreted this examination/study. > Interpreting Provider: Gabe Page MD on 04/04/2024 11:36 PM ADDITIONAL PERTINENT STUDIES: CT Head Wo Contrast Result Date: 04/04/2024 IMPRESSION: 1.No new intracranial hemorrhage identified. 2.Interval near complete resolution of a small amount of subdural blood products along the left tentorial leaflet and subarachnoid blood products in the bilateral cerebral sulci and cerebral fissures. 3.Bilateral chronic subdural fluid collections are similar in maximum thickness, now decrease in density and now nearly isodense relative to CSF. Report dictated by Jann Viera MD (senior resident care director). Gabe Guzmán MD have personally reviewed and interpreted this examination/study. > Interpreting Provider: Gabe Page MD on 04/04/2024 11:36 PM XR Chest 1Vw Portable Result Date: 03/19/2024 IMPRESSION: *Stable endotracheal tube and partially imaged enteric tube. Normal cardiomediastinal silhouette. Atherosclerotic aorta. No focal consolidation, pleural effusion, or pneumothorax. > Interpreting Provider: Argenis Morales MD on 03/19/2024 9:58 PM XR Hand Left 2Vw Result Date: 03/16/2024 IMPRESSION: 1. No fracture. 2.Joint space narrowing, more pronounced in the distal interphalangeal joints of the left hand, this could be representing erosive osteoarthropathy. 3.Reduced bone densityand coarse texture, correlation with a DEXA scan can be performed if not already done. 4. The aboveexaminations do not constitute proper radiographic examination of the wrist. If there is clinical concern for wrist injury, wrist radiographs would be recommended. > Dictated by SHIRAZ Aldrich (senior resident care director). Todd Guzmán MD have personally reviewed and interpreted this examination/study. > Interpreting Provider: Todd Garcia MD on 03/16/2024 12:34 AM XR Hand Right 2Vw Result Date: 03/16/2024 IMPRESSION: 1. No fracture. 2. Joint space narrowing, more pronounced in the distal interphalangealjoints of the right hand, this could be representing erosive osteoarthropathy. 3. Reduced bone density and coarse texture, correlation with a DEXA scan can be performed if not already done. 4. The above examinations do not constitute proper radiographic examination of the wrist. If there is clinical concern for wrist injury, wrist radiographs would be recommended. > Dictated by Maliha Aldrich (senior resident care director). Todd Guzmán MD have personally reviewed and interpreted this ex amination/study. > Interpreting Provider: Todd Garcia MD on 03/16/2024 12:33 AM XR Knee Left 2Vw or Less Result Date: 03/16/2024 IMPRESSION: Left total knee replacement without periprosthetic fracture. > Dictated by Maliha Aldrich (senior resident care director). Todd Guzmán MD have personally reviewed and interpreted this examination/study. > Interpreting Provider: Todd Garcia MD on 03/16/2024 12:30 AM XR Knee Right 2Vw or Less Result Date: 03/16/2024 IMPRESSION: No acute fracture or dislocation of knee identified.Intra-articular ossific densities within the right knee joint are indeterminate and could be degenerative. Right knee intercondylar view can be performed if clinically needed. > Dictated by Maliha Aldrich (senior resident care director). Todd Guzmán MD have personally reviewed and interpreted this examination/study. > Interpreting Provider: Todd Garcia MD on 03/16/2024 12:[address] Head Wo Contrast Result Date: 03/14/2024 IMPRESSION: 1. Slightly increased amount of subarachnoid hemorrhage scattered in the bilateral cerebral sulci, the solid fissures and the ambient and quadrigeminal plate cisterns. 2. A small subduralhematoma along the left tentorial leaflet is grossly unchanged. 3. Increased density of the small bi lateral subdural fluid collections measuring up to 7 mm in maximum thickness in the right frontal cerebral convexities is likely related to the presence of residual contrast material. No midline shift. > Interpreting Provider: Barbara Moreno MD on 03/14/2024 3:[address] CHEST ABDOMEN PELVIS W CONT - Abdomen-pelvis trauma, blunt or penetrating Result Date: 03/14/2024 Impression 1.An elongated area of low attenuation in the anterior-inferior aspect of the right hepatic lobe measuring 5 x 1 cm (series 4 image 50-58). This is concerning for a contusion or laceration(grade 2 liver injury), although focal fatty infiltration is possible. 2.Otherwise no evidence of acute visceral, vascular, or osseus injury identified in the chest, abdomen, or pelvis. 3.Small penetrating atherosclerotic ulcer noted in the aortic arch distal to the left subclavian artery. Multiplewall irregularities of the thoracic aorta is noted, likely secondary to atherosclerotic disease. 4.Cardiomegaly. There is reflux of contrast into the IVC and hepatic veins consistent with right heartdysfunction. 5.2 mm left upper lobe lung nodule. [...] on 03/13/2024. Report dictated by Darvin Santos MD(senior resident care director). I, Yahir Queen MD have personally reviewed and interpreted thisexamination/study. > Interpreting Provider: Yahir Queen MD on 03/14/2024 11:[address] Angio Brain Result Date: 03/14/2024 IMPRESSION: 1.Redemonstration of sequelae of TBI was multilevel compartmental intracranial hemorrhages, including an acute subdural hematoma, along the left tentorial leaflet, as well as well multiple foci of subarachnoid hemorrhages most prominent in the bilateral sylvian fissures and in the basalcisterns, overall similar or slightly conspicuous compared to the prior, allowing for slight differences in the imaging technique and expected redistribution. 2.No significant mass effect or midline shift. 3.No large arterial occlusions or hemodynamically significant stenoses identified in the head. > Interpreting Provider: Gabe Page MD on 03/14/2024 10:[address] HEAD WO CONTRAST - Head Trauma, CSF leak, mental status changes Result Date: 03/14/2024 IMPRESSION: 1.Sequelae of TBI was multilevel compartmental intracranial hemorrhages, including an acute subdural hematoma up to 7 mm in maximum thickness layering along the left tentorial leaflet, aswell as well multiple foci of subarachnoid hemorrhages most prominent in the bilateral sylvian fissu res and in the basal cisterns. 2.No significant [...] findings. Report dictated by Jann Viera MD (senior resident care director). Critical findings were discussed in detail with the patient's care provider, Dr. Samson by Dr. Viera via telephone at 11:34 PM on 03/13/2024 with readback comprehension and verification. Gabe Guzmán MD have personally reviewed and interpreted this examination/study. > Interpreting Provider: Gabe Page MD on 03/14/2024 6:31AM CT CERVICAL SPINE WO CONTRAST - C-Spine Trauma, Spine fracture Result Date: 03/14/2024 IMPRESSION: 1.Sequelae of TBI was multilevel compartmental intracranial hemorrhages, including an acute subdural hematoma up to 7 mm in maximum thickness layering along the left tentorial leaflet, aswell as well multiple foci of subarachnoid hemorrhages most prominent in the bilateral sylvian fissu res and in the basal cisterns. 2.No significant [...] findings. Report dictated by Jann Viera MD (senior resident care director). Critical findings were discussed in detail with the patient's care provider, Dr. Samson by Dr. Viera via telephone at 11:34 PM on 03/13/2024 with readback comprehension and verification. Gabe Guzmán MD have personally reviewed and interpreted this examination/study. > Interpreting Provider: Gabe Page MD on 03/14/2024 6:31AM CT THORACIC SPINE WO CONTRAST - T/L-spine trauma, spine fracture Result Date: 03/14/2024 IMPRESSION: 1.Sequelae of TBI was multilevel compartmental intracranial hemorrhages, including an acute subdural hematoma up to 7 mm in maximum thickness layering along the left tentorial leaflet, aswell as well multiple foci of subarachnoid hemorrhages most prominent in the bilateral sylvian fissu res and in the basal cisterns. 2.No significant [...] findings. Report dictated by Jann Viera MD (senior resident care director). Critical findings were discussed in detail with the patient's care provider, Dr. Samson by Dr. Viera via telephone at 11:34 PM on 03/13/2024 with readback comprehension and verification. Gabe Guzmán MD have personally reviewed and interpreted this examination/study. > Interpreting Provider: Gabe Page MD on 03/14/2024 6:31AM CT LUMBAR SPINE WO CONTRAST - T/L-spine trauma, Spine fracture Result Date: 03/14/2024 IMPRESSION: 1.Sequelae of TBI was multilevel compartmental intracranial hemorrhages, including an acute subdural hematoma up to 7 mm in maximum thickness layering along the left tentorial leaflet, aswell as well multiple foci of subarachnoid hemorrhages most prominent in the bilateral sylvian fissu res and in the basal cisterns. 2.No significant [...] findings. Report dictated by Jann Viera MD (senior resident care director). Critical findings were discussed in detail with the patient's care provider, Dr. Samson by Dr. Viera via telephone at 11:34 PM on 03/13/2024 with readback comprehension and verification. Gabe Guzmán MD have personally reviewed and interpreted this examination/study. > Interpreting Provider: Gabe Page MD on 03/14/2024 6:31AM CT FACIAL BONES WO CONTRAST - Facial trauma, fx suspected, blunt Result Date: 03/14/2024 IMPRESSION: 1.Sequelae of TBI was multilevel compartmental intracranial hemorrhages, including an acute subdural hematoma up to 7 mm in maximum thickness layering along the left tentorial leaflet, aswell as well multiple foci of subarachnoid hemorrhages most prominent in the bilateral sylvian fissu res and in the basal cisterns. 2.No significant [...] findings. Report dictated by Jann Viera MD (senior resident care director). Critical findings were discussed in detail with the patient's care provider, Dr. Samson by Dr. Viera via telephone at 11:34 PM on 03/13/2024 with readback comprehension and verification. I, Gabe Page MD have personally reviewed and interpreted this examination/study. > Interpreting Provider: Gabe Page MD on 03/14/2024 6:31AM RECENT/NOTABLE LABS: include pertinent positives Recent Labs Component Name 04/06/24 0442 POTASSIUM 3.9 CO2 30* BUN 25 CREATININE 0.81 EGFR 70* Recent Labs Component Name 04/06/24 0442 WBC 7.4 HGB 9.2* HCT 31.8* PLTCOUNT 353 Recent Labs Component Name 03/13/24 2209 03/11/24 1435 INR 1.1 1.0 VITALS/MENTAL STATUS/NOTIBLE EXAM FINDINGS Most recent weight: Weight: 87.8 kg (193 lb 9.6 oz) (03/19/24 0400) BP 149/72 (BP Location: Left arm) Pulse 58 Temp 97.2 ??F (36.2 ??C) (Axillary) Resp 16 Ht 1.702 m (5' 7 ) Wt 87.8 kg (193 lb 9.6 oz) SpO2 97% Exam: General: Awake, no acute distress HEENT: NC/AT, EOMI, MMM Heart: RRR Lungs: CTAB, normal effort Abd: Soft, NT/ND, +BS Ext: Moves spontaneously, no edema Skin: Warm, dry, no rash Neuro: A&O self, stable DISCHARGE MEDICATIONS AND ALLERGIES This list of medications is preliminary and tentative: please see the Patient Discharge Instructions for patients discharged home or the Facility Transfer Order for the final and accurate medication list. Current Discharge Medication List START taking these medications Instructions Authorizing Provider acetaminophen 325 MG tablet Commonly known as: Tylenol Take 2 (two) tablets by mouth every 4 hours as needed Maximum allowable Acetaminophen amount = 4 Grams (4000 mg) / 24 hours. Alexander Soto DO albuterol-ipratropium 0.5-2.5 (3) MG/3ML nebulizer solution Commonly known as: Duo-Neb Inhale 3 mL by mouth every 4 hours as needed for Shortness of Breath or Wheezing Alexander Soto DO enoxaparin 30 MG/0.3ML injection Commonly known as: Lovenox Inject 30 (thirty) mg subcutaneously every 12 hours Alexander Soto DO melatonin 3 MG tablet Take 1 (one) tablet by mouth at bedtime Alexander Soto DO polyethylene glycol 3350 17 g packet Commonly known as: Miralax Start taking on: April 09, 2024 Take 17 (seventeen) g by mouth once daily Alexander Soto DO tamsulosin 0.4 MG capsule Commonly known as: Flomax Start taking on: April 09, 2024 Take 1 (one) capsule by mouth once daily At the same time every day after a meal. Alexander Soto DO traZODone 50 MG tablet Commonly known as: Desyrel Take 0.5 (one-half) tablet by mouth nightly as needed for Insomnia Alexander Soto DO white petroleum ointment Commonly known as: Vaseline Apply to affected area 3 times daily Alexander Soto DO CONTINUE taking these medications which have CHANGED Instructions Authorizing Provider losartan 50 MG tablet What changed: medication strength how much to take Commonly known as: Cozaar Start taking on: April 09, 2024 Take 1 (one) tablet by mouth once daily Alexander Soto DO CONTINUE taking these medications which have NOT CHANGED Instructions Authorizing Provider ascorbic acid 500 MG tablet Commonly known as: Vitamin C Take 1 (one) tablet by mouth once daily Aspirin Low Dose 81 MG chew tablet Generic drug: aspirin Quantity Dispensed: 30 tablet Take 1 (one) tablet by mouth once daily José King atorvastatin 20 MG tablet Commonly known as: Lipitor Quantity Dispensed: 30 tablet Take 1 (one) tablet by mouth at bedtime José King calcium carbonate 500 MG chew tablet Commonly known as: Tums Take 3 (three) tablets by mouth 2 times daily with morning and evening meal carvedilol 25 MG tablet Commonly known as: Coreg Quantity Dispensed: 60 tablet Take 1 (one) tablet by mouth 2 times daily with morning and evening meal José King cholestyramine 4 g packet Commonly known as: Questran Take 1 (one) packet by mouth once daily hyoscyamine CR 12hr [...] every 6 hours as needed for Pain STOP taking these medications FLUoxetine 20 MG capsule Commonly known as: PROzac ALLERGIES: Allergies Allergen Reactions Ciprofloxacin Rash Quinolones Unknown Sulfa Antibiotics Unknown DISCHARGE INSTRUCTIONS Contact Information for Follow-Up Providers None, Physician Relationship: PCP - General [address] [place] [id number] Next Steps: Follow up Our records show your Primary Care Provider (PCP) is Physician None. Follow Up Instructions for Patient: Within 5-10 Days from Discharge ISOLATION PRECAUTIONS No active isolations. Isolation due to No active infections. I spent 4 minutes in addition to direct patient care summarizing this patient's hospital stay, reviewing and updating the inpatient problem list, reviewing discharge medications, instructions, discussing discharge care planand discharge follow up labs/studies/doctor visits with the patient and or POA/family. Alexander Soto DO PROGRAMMER documented in this encounter Discharge Instructions * Discharge Instructions* Alexander Soto DO - 04/08/2024 1:36 PM VBA PROGRAMMER A Note From Your Doctors: Andrea Emerald Villafana, You were admitted to the hospital after a fall and bleeding around your brain. Part of your care was in our ICU due to the severity of your illness. Ultimately you had improvement to the point of being able to be transferred out of the ICU. We are now discharging you to a SNF for rehab. Wound Care/Activity Instructions: can apply vaseline to forehead laceration as needed. MEDICATIONS: Resume your home medications other than those changed, removed, or added as detailed below. Current Discharge Medication List START taking these medications Instructions Authorizing Provider acetaminophen 325 MG tablet Commonly known as: Tylenol Take 2 (two) tablets by mouth every 4 hours as needed Maximum allowable Acetaminophen amount = 4 Grams (4000 mg) / 24 hours. Alexander Soto DO albuterol-ipratropium 0.5-2.5 (3) MG/3ML nebulizer solution Commonly known as: Duo-Neb Inhale 3 mL by mouth every 4 hours as needed for Shortness of Breath or Wheezing Alexander Soto DO enoxaparin 30 MG/0.3ML injection Commonly known as: Lovenox Inject 30 (thirty) mg subcutaneously every 12 hours Alexander Soto DO melatonin 3 MG tablet Take 1 (one) tablet by mouth at bedtime Alexander Soto DO polyethylene glycol 3350 17 g packet Commonly known as: Miralax Start taking on: April 09, 2024 Take 17 (seventeen) g by mouth once daily Alexander Soto DO tamsulosin 0.4 MG capsule Commonly known as: Flomax Start taking on: April 09, 2024 Take 1 (one) capsule by mouth once daily At the same time every day after a meal. Alexander Soto DO traZODone 50 MG tablet Commonly known as: Desyrel Take 0.5 (one-half) tablet by mouth nightly as needed for Insomnia Alexander Soto DO white petroleum ointment Commonly known as: Vaseline Apply to affected area 3 times daily Alexander Soto DO CONTINUE taking these medications which have CHANGED Instructions Authorizing Provider losartan 50 MG tablet What changed: medication strength how much to take Commonly known as: Cozaar Start taking on: April 09, 2024 Take 1 (one) tablet by mouth once daily Alexander Soto DO CONTINUE taking these medications which have NOT CHANGED Instructions Authorizing Provider ascorbic acid 500 MG tablet Commonly known as: Vitamin C Take 1 (one) tablet by mouth once daily Aspirin Low Dose 81 MG chew tablet Generic drug: aspirin Quantity Dispensed: 30 tablet Take 1 (one) tablet by mouth once daily José King atorvastatin 20 MG tablet Commonly known as: Lipitor Quantity Dispensed: 30 tablet Take 1 (one) tablet by mouth at bedtime José King calcium carbonate 500 MG chew tablet Commonly known as: Tums Take 3 (three) tablets by mouth 2 times daily with morning and evening meal carvedilol 25 MG tablet Commonly known as: Coreg Quantity Dispensed: 60 tablet Take 1 (one) tablet by mouth 2 times daily with morning and evening meal José King cholestyramine 4 g packet Commonly known as: Questran Take 1 (one) packet by mouth once daily hyoscyamine CR 12hr [...] every 6 hours as needed for Pain STOP taking these medications FLUoxetine 20 MG capsule Commonly known as: PROzac If you have any questions about your medications, please be sure to ask the pharmacy when you nut picker your prescription. You may also call your primary provider to ask if you should be taking your medication. FOLLOW-UP: It is important that you follow-up with all appointments that have been made on your behalf. These appointments include: Future Appointments March 9:45 AM (Arrive by 9:30 AM) Appointment with Itzel Rudolph at [facility] - Cardiology ([phone]) [address] [facility] [address] [facility] [id number] As directed Outpatient Referral: AMB REFERRAL TO PCP Additionally, we have requested appointments with the following: Follow up with your PCP You will be contacted within 3 days of discharge from the hospital by the patient scheduler regarding your follow up appointments, as listed above, after leaving the hospital. If you are not contacted pleasecall the number . If a follow-up with your primary care provider has not been scheduled, please schedule an appointment to follow-up on your hospitalization. If there is a conflict, please call the clinic ahead of time and reschedule the appointment. CONCERNING SYMPTOMS: When to call your healthcare provider: Call your healthcare provider immediately if you have any of the following: - Dizziness - Weakness in arms/legs - Fever of 101??F or higher - Shaking chills - Intractable nausea and vomiting - Severe headache - Confusion/altered mental status - Seizures (convulsions) If you are unable to reach your primary provider, please go to the nearest emergency room or call EMS ([phone]). Regards, Internal Medicine Department [address] [address] PROGRAMMER documented in this encounter Medications at Time of Discharge Medication Sig Dispensed Refills Start Date End Date acetaminophen (Tylenol) 325 MG tablet Take 2 (two) tablets by mouth every 4 hours as needed Maximum allowable Acetaminophen amount = 4 Grams (4000 mg) / 24 hours. 04/08/2024 albuterol-ipratropium (Duo-Neb) 0.5-2.5 (3) MG/3ML nebulizer solution Inhale [...] to affected area 3 times daily 04/08/2024 documented as of this encounter Progress Notes * Emelia Bain RN - 04/08/2024 3:18 PM CST Care Coordination Discharge Note Expected Discharge Date: 04/08/2024 Actual Level of Care/Dispostion Details Actual Level of Care at Discharge: Acute Rehab Facility Patient / Family provided post-acute services choices?: Yes Payor Source: Medicare Facility Name: (include name of person confirming admission): [facility] [facility] Call Report to: [phone] RN Fax D/C Orders to: [phone] Transportation: [facility] Certificate of Medical Necessity rationale: subarachnoid bleed Date/time of transfer: 04/08/24- Ground Transport Accepting MD: Rick Reyes Family/Other Notified of Transfer (name/phone): Daughter Meri notified by RN CM Comments: Patient to return to her memory care [facility] after acute rehab stay Emelia Bain RN Family Support (Name and Phone): Extended Emergency Contact Information Primary Emergency Contact: Meri Henderson (POA) Mobile Relation: Daughter Preferred language: Icelandic V Belt Curer needed? No Secondary Emergency Contact: shay washington Mobile Relation: Daughter Guardian: MERI HENDERSON POA Mobile Relation: Daughter Transportation at Discharge: Family: READMISSION RISK SCORE is 17 at 3:18 PM 04/08/2024.: Name: Emelia Bain RN PROGRAMMER * Jn Walters, PT - 04/08/2024 2:[address] [facility] Physical Medicine and Rehabilitation Physical Therapy Progress Note Patient: Emerald [facility] Record Number: [id number] Date of : 1935 Age: [age] year old PPE worn by staff: gloves PPE worn by patient: socks - clean Tech: N/A Recommendations: Discharge PT Discharge Recommendations: Patient would benefit from ongoing therapy with home health This recommendation is made due to ongoing PT functional needs: address functional deficits Patient currently using Wheeled Walker and has equipment at home. No equipment needs if d/c home. SUBJECTIVE: Subjective: Pt pleasantly confused with family and facility liaison present. Pain Assessment: Pain Assessment Pain Scale/Observation: FLACC Sedation Level: S-Sleeping, easy to arouse PRECAUTIONS: Weight Bearing Status: (No Restrictions) Activity Level: Activity as Tolerated OBJECTIVE: At start of therapy session, patient found in patient bedside chair and with chair alarm on General Appearance: Patient was sitting in chair with family and facility liaison at bedside. She was pleasantly confused and working with therapy. No lines attached. Vitals: Asymptomatic Mental Status/Cognition: Level of Consciousness-Adult: Responds to voice Orientation Level: Disoriented X4 Cognition: Confused Following Commands: Follows one step commands with repetition/cues Safety Judgement: Decreased awareness of need for assistance Mobility: A gait belt and non-slip socks were used for all out of bed activity this date. Bed Mobility: Supine to Sit: Other (Comment) (Pt sitting in chair upon entry.) Sit to Supine: Other (Comment) (Sitting in chair at end of session) Transfers: Sit to Stand: Minimal Assistance Stand to Sit: Stand By Assist Bed to Chair: Stand By Assist Type of Transfer: Other (Comment) (Stand Step Transfer) Transfer Device: Gait belt;Walker-2 Wheeled Gait: Weight Bearing Status: (No Restrictions) Distance Ambulated (ft): 50 FEET Ambulation: Assistive Device: Walker-2 Wheeled;Gait Belt Ambulation: Level of Assistance: Stand By Assist;Minimum Assistance Ambulation: Gait Deviations: Antalgic;Lauryn - Decreased Comments: patient continues to need multiple verbal, visual, and tactile cues to participate with therapy, secondary to diminished attention span. She was able to assist staff with donning on pants. She was also able to ambulate with increased time due to fatigue. No buckling or loss of balance waspresent. Balance: Balance Scales/Tests Used: Sitting: Static/Dynamic;Standing: Static/Dynamic Sitting - Static: Good;With One Upper Extremity Support Sitting - Dynamic: Good;With One Upper Extremity Support Standing - Static: Good -;With Both Upper Extremity's Support Standing - Dynamic: Fair +;With One Upper Extremity Support ACTIVITY TOLERANCE: Activity Tolerance: Requires standing rest breaks TREATMENT/INTERVENTIONS: transfer training and gait training Modified New Eagle: Current Modified New Eagle Score: 4 AM-PAC 6 Clicks Mobility Raw Score:: 16 EDUCATION: While performing PT, Patient was instructed in:functional mobility training, safety awareness/fall precautions Presented to patient who demonstrates Poor understanding of instructions given. ASSESSMENT: Patient is improving with therapy with no significant loss of balance present. A change in recommendation to Home Health Physical Therapy is appropriate due to having the support at the facility and needing to improve gait distance. Patient would benefit from additional Physical Therapy sessions toachieve the following functional goals to enhance independence. Short Term Goals: Goal Formation With patient Patient will perform bed mobility with moderate assist of 1 (Upgrade 03/26) Patient will transfer sit to/from stand with Standby Assist - Goal Updated 04/03/24 Patient will demonstrate sitting balance of normal x 5 minutes - Goal Updated 04/03/24 Patient to ambulate 75 ft with Standby Assist - Goal Updated 04/08/24 Shelter Goal(s): Patient to discharge to appropriate next level of inpatient care INFORMED CONSENT TO TREATMENT: Plan of care including recommended therapy, goals and frequency, discussed with patient who understands and agrees to proceed. Equipment Issued: gait belt and assistive device Plan: Patient continues to benefit from skilled therapy services., Goals updated this date. If patient is discharged from the facility, this note serves as a discharge summary if further physical therapy visits did not occur. Refer to filed flowsheet for further details. Following therapy session, patient left in patient bedside chair , with waffle seat cushion in place, with chair alarm on and positioned under patient's buttocks , with call light within reach, with family in room. PROGRAMMER * Lula Carrizales RN - 04/08/2024 11:50 AM CST Patient has not had security public safety officer in place since transfer to [address] [place] [address] on 03/31/24. Patient has not required sitter during stay on [address] [place] [address] PROGRAMMER * Emelia Bain RN - 04/08/2024 11:43 AM CST Care Coordination Progress Note Expected Discharge Date: 04/08/2024 Discharge Plan: ZACH VUONG [facility] and they are running patients information for possible admission this afternoon. Patient has not had a security public safety officer since her transfer to [address] [place] [address]. ZACH VUONG will continue to follow. Family Support (Name and Phone): Extended Emergency Contact Information Primary Emergency Contact: Meri Henderson (POA) Mobile Relation: Daughter Preferred language: Icelandic V Belt Curer needed? No Secondary Emergency Contact: shay washington Mobile Relation: Daughter Guardian: MERI HENDERSON Mobile Relation: Daughter Transportation at Discharge: Family: READMISSION RISK SCORE is 17 at 11:43 AM 04/08/2024.: Name: Emelia Bain, ZACH PROGRAMMER * Alexander Soto, - 04/08/2024 10:48 AM CST GENERAL INTERNAL MEDICINE Progress Note Hospital Course: Emerald Villafana is a 88 year old F with a PMHx of CAD s/p stent, dementia, COPD (not on O2), HLD, HTN, GERD, recent admission from 03/11 to 03/13 with malignant hypertension and a penetrating atherosclerotic ulcer treated medically admitted on 03/13/2024 after fall with head trauma resulting SDH and SAH. Hospital course complicated by delirium with agitation, TBI, resp failure and shock. Patient als o treated for UTI, completed 5 days IV ceftriaxone. Patient transferred from Trauma service to [facility] unit on 03/31 for further management. Subjective: No acute events overnight. No acute concerns this morning. Patient has not needed sitter, so was discontinued. Objective: Blood pressure 149/72, pulse 58, temperature 97.2 ??F (36.2 ??C), temperature source Axillary, resp. rate 16, height 1.702 m (5' 7 ), weight 87.8 kg (193 lb 9.6 oz), SpO2 97%. Gen: Awake and alert; Oriented to person only NAD HEENT: NCAT, EOMI, MMM RESP: Clear to auscultation CV: Nl S1 and S2 No gallops. GI: Soft and non tender. +BS, no HSM EXT: No edema. MAR reviewed Labs: CBC: Recent Labs Lab Units 04/06/24 0442 04/01/24 1950 WBC x10E9/L 7.4 7.3 RBC x10E12/L 3.34* 3.24* HGB g/dL 9.2* 9.1* HCT % 31.8* 30.5* BMP: Recent Labs Lab Units 04/06/24 0442 04/01/24 1950 NA mmol/L 147* 144 CL mmol/L 113* 111* CO2 mmol/L 30* 24 BUN mg/dL 25 28* CREATININE mg/dL 0.81 0.81 CALCIUM mg/dL 8.8 8.6 Assessment/Plan: TBI SDH, SAH Right temporal brain contusion Left frontal scalp contusion - Neurosurgery consulted. No acute intervention - Repeat CT Head 04/04, stable. Grade II liver laceration - non-op management Right forehead laceration - s/p ENT repair CAD with descending aortic mural thrombus/ulcer HTN HLD - continue losartan, carvedilol - continue atorvastatin - plan for Vascular follow-up as outpatient COPD - stable on room air. - CTM Dementia Acute encephalopathy Sleep disturbance Agitation - Patient was seen by Geriatrics - Delirium precautions - Trazodone prn insomnia - Holding home prozac GERD - continue lansoprazole UTI - completed ceftriaxone x 5 days (EOT 03/28) Urinary retention - Urology consulted - Vasquez catheter removed 04/06. Cont prn bladder scan and straight cath; if needs vasquez replaced will place Urology referral for follow up - Continue tamsulosin Dysphagia - mechanical soft diet - Speech therapy following LDA: PIV Diet: Modified consistency Consults: Neurosurg, ENT, Trauma, Geriatrics, Urology, Palliative Care DVT prophylaxis: Lovenox sq Code status: DNR Disposition: Continue inpatient care. Placement pending. Facility liaison to eval patient today. Alexander Soto DO General Internal Medicine 04/08/2024 PROGRAMMER * Sarah Laguerre OT - 04/07/2024 3:[address] [facility] Physical Medicine and Rehabilitation Occupational Therapy Progress Note Patient: Emerald Villaf[facility] Record Number: [id number] Date of : 1935 Age: [age] year old PPE worn by staff: gloves PPE worn by patient: socks - clean Recommendations: Discharge OT Discharge Recommendations: Patient would benefit from multidisciplinary therapy This recommendation is made due to ongoing OT functional needs: patient to return to prior level ofcare Nurse contacted regarding patient status and/or discharge plan. Activity Level: as tolerated PRECAUTIONS: Weight Bearing Status: (no restrictions) Medical/Surgical Precaution: (safety, fall risk) SUBJECTIVE: Subjective: pt received in bedside chair with upside down cup with lid leaking onto lap (pt required cues to attend to spill, confused but generally agreeable throughout session) Pain Assessment: Pain Assessment Pain Scale/Observation: Behavioral Pain [id number]-Nhu-bfvyrakzr Pain Rating Score #1: 0 Sedation Level: 1-Awake and alert OBJECTIVE: At start of therapy session, patient found in patient bedside chair and with chair alarm on General Appearance: 88 y/o female received in NAD Mental Status/Cognition: Orientation Level: Disoriented to Place;Disoriented to Time;Disoriented to Situation (pt accuratelyreports first and last name, does not report ) Cognition: Confused Attention Span: Difficulty attending to directions Memory: Decreased halfway memory;Decreased short term memory;Decreased recall of recent events Following Commands: Follows one step commands with repetition/cues (~50% single- step command followwith max verbal cuing, repetition, and increased time) Safety Judgement: Decreased awareness of need for safety Awareness of Errors: Decreased awareness of deficits Problem Solving: Assistance required to identify errors made;Assistance required to generate solutions;Assistance required to implement solutions Mobility: a gait belt and non-slip socks were used for all out of bed activity this date. Transfers: Sit to Stand: Minimal Assistance (repeated verbal/tacile cues to intiate transfer, assist for hand placement on w/w) Stand to Sit: Minimal Assistance Toilet Transfers: Other (Comments) (Jose David bedside chair > BSC; modA BSC > bedside chair) Transfer Device: Gait belt;Walker-2 Wheeled Functional Ambulation: Patient ambulated 3-4 steps to/from bedside commode with Jose David progressing to modA d/t confusion/difficulty following commands for motor planning, UE placement on walker and AE management. Balance: Sitting - Static: Good - Sitting - Dynamic: Fair + Standing - Static: Fair;With Both Upper Extremity's Support Standing - Dynamic: Fair -;With Both Upper Extremity's Support Activities of Daily Living: Oral Facial Hygiene: Activity Does Not Occur Upper Body Dressing: Moderate Assistance (d/d gown from sitting) Lower Body Dressing: Activity Does Not Occur Toileting: Maximal Assistance (pt unable to follow commands to actively participate in pericare, maxA posterior hygiene standing at w/w with maximal cuing for safety including UE placement on w/w forstability and waiting until task is completed prior to mobilizing back to chair) Splint Issued/Checked: none ACTIVITY TOLERANCE: Activity Tolerance: Requires rest breaks Modified Joel: Current Modified New Eagle Score: 4 AM-PAC 6 Clicks Daily Activity Raw Score:: 13 TREATMENT/INTERVENTIONS: ADL training Functional transfer training Safety awareness EDUCATION: While performing OT, Patient was instructed in:functional mobility training, self-care training, safety awareness/fall precautions , discharge planning, use of call light Presented to patient who demonstrates poor understanding of instructions given. INFORMED CONSENT TO TREATMENT: Plan of care is discussed but patient with poor understanding. ASSESSMENT: Patient continues to benefit from skilled Occupational Therapy to achieve the following functional goals. Short Term Goals: Goal Formation With patient/family Patient will perform grooming at edge of bed and with stand by assist Patient will perform upper extremity dressing with minimal assist Patient will perform supine to/from sit with minimal assist Patient will transfer sit to stand with stand by assist Shelter Goal(s): Patient to discharge to appropriate next level of inpatient care Plan: Patient continues to benefit from skilled therapy services., Goals updated this date. If patient is discharged from the facility, this note serves as a discharge summary if further occupational therapy visits did not occur. Refer to filed flowsheet for further details. Following therapy session, patient left in patient bedside chair , with chair alarm on and positioned under patient's buttocks , with call light within reach, with fall mats in place. PROGRAMMER * Ayala Basurto RD/SARAI - 04/07/2024 3:10 PM CST BRIEF SYNOPSIS: Nutrition Risk Identified but does not meet malnutrition criteria. Nutrition Plan: + Continue Pureed Diet + Continue Ensure Plus High Protein BID w/meals (1.5 kcal) (350 kcal, 20 grams pro, 40 grams CHO) + Start Magic Cup once a day w/meals (290 kcal, 9g protein, 38g CHO) Recommendation to Physician: + Advance diet per ST recommendations + Assist 1:1 w/ meals, setup to tray, open containers, encourage PO intake. Discharge Needs: N/A CLINICAL NUTRITION ASSESSMENT: Pt scheduled for reassessment. Pt admitted for a fall, pt has a forehead wound. Trauma following. Pt has dementia and is AxOx0-1. Pt remains on a Pureed diet. Per documentation, Pt has been having adequate PO intake, eating 0-100% of her meals; Avg PO intake x 48 hrs = 52% Per chart, patient consumed 40-120 mL of the Ensure, RDto continue this order to aid in wound healing. Last BM yesterday. Labs reviewed- Na 147 (high) - Rest of Lytes WNL. Pt will discharge to a SNF. RDto follow. Med/Surg History and Clinical Diagnoses: PMHx: 88 year old female with dementia for which she resides at a facility presenting as a level 1 trauma following a ground level fall Height: 170.2 cm (5' 7 ) BMI: Body mass index is 30.32 kg/m??. BMI Range: Obese Class 1 IBW/lb (Calculated) Female: 135 Recent Weights/Methods 03/12/2024 0400 03/13/2024 2150 03/14/2024 0349 03/15/2024 0400 03/16/2024 0342 03/17/2024 0045 03/18/2024 0400 03/19/2024 040 Weight: 65.1 kg (143 lb 8.3 oz) 68 kg (150 lb) 68 kg (150 lb) 68 kg (150 lb) 68 kg (150 lb) 83.4 kg(183 lb 14.4 oz) 83.6 kg (184 lb 3.2 oz) 87.8 kg (193 lb 9.6 oz) Weight Method : Bed scale Estimated Bed scale Bed scale Bed scale Bed scale Bed scale -- Unintentional weight change: Need an updated weight, ordered a new one. Monitoring. Current tube feeding order: d/c'd PO INTAKE Current diet order: Pureed (4) (DYS 1) Nutrition recommendation: agree with current nutrition order Food Allergies: No known food allergies Last % Meal Taken: 20 % (04/07/24 0958) 48 hr PO INTAKE % Meal Taken Av % Min: 15 % Max: 100 % Current supplement order: Ensure Plus High Protein TID Supplement(s) Consumed- Last 48 hours Date/Time Dietary Supplement Name Liquid Supplement Consumed (mL) Non-Liquid Supplement Consumed (%) 04/05/241942 Ensure High Protein 120 ML -- 04/07/24 1348 Ensure High Protein 40 ML -- Pain affecting intake: No Chewing/Swallowing: Dysphagia (Pureed Diet) GI Concerns: None Stools: Stools (# of stools): 1 (04/06/241738) Stool Appearance : Soft (04/06/241738) Stool Amount: Medium (04/06/24 1739) Skin/Wound: Traumatic wound R forehead Estimated Needs: KCAL: 9451-8246 (25-30) Protein (g): 73 (1.2) Fluid (ml): 1 ml/kcal Needs based on: Kcal/kg- (Comment) (IBW 61kg) Recommended Access Route: PO Labs: Recent Labs Component Name 04/06/24 0442 04/01/24 1950 03/25/24 1032 03/16/24 0137 03/15/24 1626 03/14/24 0749 03/13/24 2209 03/12/24 0330 03/11/24 1435 NA 147* 144 143 - 131* - 132* - 140 POTASSIUM 3.9 4.6* 4.3 - 3.8 - 4.8* - 4.1 CO2 30* 24 26 - 21* - 23 - 24 BUN 25 28* 18 - 26 - - 12 CREATININE 0.81 0.81 0.71 - 1.16* - 1.01* - 0.92 GLUCOSE 114* 140* 101* - 155* - 201* - 80 CALCIUM 8.8 8.6 8.7 - 7.6* - 8.2* - 8.7 ALT - - - - 8 - 9 - 8 ALKPHOS - - - - - 63 AST - - - - EGFR 70* 70* 82* - 46* - 54* - 60* - = values in this interval not displayed. Recent Labs Component Name 04/06/24 0442 04/01/24 1950 03/25/24 1032 PHOS 3.2 3.4 3.2 Recent Labs Component Name 04/06/24 0442 04/01/24 1950 03/25/24 1032 MAGNESIUM 2.2 2.2 2.3 Recent Labs Component Name 04/06/24 0442 04/01/24 1950 03/25/24 1032 HGB 9.2* 9.1* 9.6* HCT 31.8* 30.5* 30.9* Recent Labs Component Name 03/14/24 0550 HGBA1C 5.0 No data found. MEDICATIONS FOR CURRENT ENCOUNTER: SCHEDULED MEDICATIONS: 0.9% NaCl injection 3 mL, Intracatheter, q8h aspirin chew tablet 81 mg, Oral, QDAY atorvastatin (Lipitor) tablet 20 mg, Oral, AT BEDTIME carvedilol (Coreg) tablet 25 mg, Oral, BID WC enoxaparin (Lovenox) injection 30 mg, Subcutaneous, q12h lansoprazole (disintegrating) (Prevacid Solutab) tablet 15 mg, Oral, QDAY BEFORE BREAKFAST losartan (Cozaar) tablet 50 mg, Oral, QDAY melatonin tablet 3 mg, Oral, AT BEDTIME polyethylene glycol 3350 (Miralax) packet 17 g, Oral, QDAY tamsulosin (Flomax) capsule 0.4 mg, Oral, QDAY white petroleum (Vaseline) gel, Topical, TID CONTINUOUS MEDICATIONS: PRN MEDICATIONS: Or Or 0.9% NaCl injection 1-10 mL, Intracatheter, PRN acetaminophen (Tylenol) tablet 650 mg, Oral, q4h PRN albuterol-ipratropium (Duo-Neb) nebulizer solution 3 mL, Inhalation, q4h PRN dextrose IV 12.5 g, Intravenous, PRN dextrose IV 25 g, Intravenous, PRN glucagon (Glucagen) injection 1 mg, Subcutaneous, PRN glucose (Diabetic Use) oral gel, Oral, PRN traZODone (Desyrel) tablet 25 mg, Oral, AT BEDTIME PRN Edema Generalized Edema: None (03/26/24 193) RUE Edema: +1-mild pitting, slight indentation (03/22/242099) R Hand Edema: +1-mild pitting, slight indentation (03/22/242099) LUE Edema: Moderate pitting, indentation subsides rapidly (03/31/24 08) L Hand Edema: +1-mild pitting, slight indentation (03/22/242099) Nutrition Diagnostic Statement: Inadequate oral intake related to:: decreased ability to consume ortolerate food and/or fluids due to illness as evidenced by:: oral intake insufficient to meet estimated requirements Nutrition Intervention: Meals and snacks:;Medical Food Supplements:;Feeding assistance:;Collaboration with other providers Education needed: Supplements Education Provided: Not appropriate (03/14/24 0700) Monitoring: PO intake, labs, weight, BM Monitor per nutrition guidelines. Risk Level: High Evaluation: Nutrition Goal: Total intake will meet estimated nutrient needs Nutrition Goal Timeframe: Throughout stay Nutrition Goal Progress: Continue with current goal Ayala Basurto RD/SARAI Ascom:[id number] PROGRAMMER * Lorena Acosta RN - 04/07/2024 3:07 PM CST Problem: Skin Integrity Goal: Skin integrity is maintained or improved Outcome: Progressing Problem: Fall Risk Goal: Fall risk and fall related injury risk are minimized (interventions related to the fall risk can be found in the flowsheet documentation) Outcome: Progressing Problem: Skin/Tissue Integrity - Adult Goal: Skin integrity remains intact Description: INTERVENTIONS: Outcome: Progressing Goal: Incisions, wounds, or drain sites healing without S/S of infection Description: INFECTIONS: Outcome: Progressing Goal: Oral mucous membranes remain intact Description: INTERVENTIONS: Outcome: Progressing Problem: Musculoskeletal - Adult Goal: Return mobility to safest level of function Description: INTERVENTIONS: Outcome: Progressing Goal: Return ADL status to a safe level of function Description: INTERVENTIONS: Outcome: Progressing Problem: Neurosensory - Adult Goal: Achieves stable or improved neurological status Description: INTERVENTIONS Outcome: Progressing Problem: Cardiovascular - Adult Goal: Maintains optimal cardiac output and hemodynamic stability Description: INTERVENTIONS: Outcome: Progressing Problem: Genitourinary - Adult Goal: Absence of urinary retention Description: INTERVENTIONS: Outcome: Progressing Problem: Metabolic/Fluid and Electrolytes - Adult Goal: Electrolytes maintained within normal limits Description: INTERVENTIONS: Outcome: Progressing PROGRAMMER * Emelia Bain RN - 04/07/2024 1:25 PM CST Care Coordination Progress Note Expected Discharge Date: 04/03/2024 Discharge Plan: ZACH VUONG sent updated clinicals to [facility] where patient resides. Facility liaison will come to hospital tomorrow and review patient for return to memory care. Anticipated to arrive between [id number] on 04/08/24. Will request that PT/OT be present to walk patient. ZACH VUONG will continue to follow and assist with discharge planning needs. Family Support (Name and Phone): Extended Emergency Contact Information Primary Emergency Contact: Meir Henderson (POA) Mobile Relation: Daughter Preferred language: Icelandic V Belt Curer needed? No Secondary Emergency Contact: shay washington Mobile Relation: Daughter Guardian: MERI HENDERSON Mobile Relation: Daughter Transportation at Discharge: Family: READMISSION RISK SCORE is 17 at 1:25 PM 04/07/2024.: Name: Emelia Bain RN PROGRAMMER * Jn Walters, PT - 04/07/2024 12:[address] [facility] Physical Medicine and Rehabilitation Physical Therapy Progress Note Patient: Emerald Villafana [facility] Record Number: [id number] Date of : 1935 Age: [age] year old PPE worn by staff: gloves PPE worn by patient: socks - clean Tech: N/A Recommendations: Discharge PT Discharge Recommendations: Patient would benefit from multidisciplinary therapy This recommendation is made due to ongoing PT functional needs: address functional deficits SUBJECTIVE: Subjective: Pt pleasantly confused but she is able to vocalize an agreement to get to the chair. Pain Assessment: Pain Assessment Pain Scale/Observation: FLACC Sedation Level: S-Sleeping, easy to arouse PRECAUTIONS: Weight Bearing Status: (No Restrictions) Activity Level: Activity as Tolerated OBJECTIVE: At start of therapy session, patient found in bed and with bed alarm on General Appearance: Patient was laying in supine with no signs of distress. She continues to be pleasantly confused. Vitals: (*Assess the 3 levels of oxygen saturations both for room air and 02 unless rest on room air is 88% or less). Rest BP: 96/50 HR: 64 Sp02 Sp02 Room Air L O2 Ex/Gait/Activity Without 02 BP: 101/73 HR: 71 Sp02 Room Air Post Activity BP: 108/62 HR: 67 Sp02 Sp02 Room Air L O2 Observations: No signs of distress, Shortness of Breath, or buckling. Mental Status/Cognition: Level of Consciousness-Adult: Responds to voice Orientation Level: Disoriented to Person;Disoriented to Situation;Disoriented to Time;Disoriented to Place (Alert, Oriented to (except year).) Cognition: Confused Following Commands: Follows one step commands with repetition/cues Safety Judgement: Decreased awareness of need for assistance Mobility: A gait belt and non-slip socks were used for all out of bed activity this date. Bed Mobility: Supine to Sit: Moderate Assistance with HOB in semi-fowlers position Sit to Supine: Other (Comment) (Sitting in chair at end of session) Transfers: Sit to Stand: Minimal Assistance Stand to Sit: Stand By Assist Bed to Chair: Minimal Assistance to Left Type of Transfer: Other (Comment) (Stand Step Transfer) Transfer Device: Gait belt;Walker-2 Wheeled Gait: Weight Bearing Status: (No Restrictions) Distance Ambulated (ft): 3 FEET Ambulation: Assistive Device: Walker-2 Wheeled;Gait Belt Ambulation: Level of Assistance: Stand By Assist Ambulation: Gait Deviations: Lauryn - Decreased;Increased Trunk Flexion Comments: Patient required additional time during today's session redirecting the patients attention to the tasks at hand. Increase in assistance was needed with bed mobility due to poor command following. She attempted multiple times to return to bed when she was given the cue that we would try toget to the chair or walk. Once we pointed out to the chair, she was more manageable and agreeable to there. Balance: Balance Scales/Tests Used: Sitting: Static/Dynamic;Standing: Static/Dynamic Sitting - Static: Good -;With One Upper Extremity Support Sitting - Dynamic: Fair;With One Upper Extremity Support Standing - Static: Fair +;With Both Upper Extremity's Support Standing - Dynamic: Fair -;With One Upper Extremity Support ACTIVITY TOLERANCE: Activity Tolerance: Requires rest breaks TREATMENT/INTERVENTIONS: bed mobility training and transfer training Modified Joel: Current Modified Joel Score: 4 AM-PAC 6 Clicks Mobility Raw Score:: 16 EDUCATION: While performing PT, Patient was instructed in:functional mobility training, safety awareness/fall precautions Presented to patient who demonstrates Poor understanding of instructions given. ASSESSMENT: Patient would benefit from additional Physical Therapy sessions to achieve the following functionalgoals to enhance independence. Short Term Goals: Goal Formation With patient Patient will perform bed mobility with moderate assist of 1 (Upgrade 03/26) Patient will transfer sit to/from stand with Standby Assist - Goal Updated 04/03/24 Patient will demonstrate sitting balance of normal x 5 minutes - Goal Updated 04/03/24 Patient to ambulate 50 ft with Standby Assist - Goal Updated 04/03/24 Direct Care Staffer Goal(s): Patient to discharge to appropriate next level of inpatient care INFORMED CONSENT TO TREATMENT: Plan of care including recommended therapy, goals and frequency, discussed with patient who understands and agrees to proceed. Equipment Issued: gait belt and assistive device Plan: Patient continues to benefit from skilled therapy services., Continue with goals as established. If patient is discharged from the facility, this note serves as a discharge summary if further physical therapy visits did not occur. Refer to filed flowsheet for further details. Following therapy session, patient left in patient bedside chair , with waffle seat cushion in place, with chair alarm on and positioned under patient's buttocks , with call light within reach. PROGRAMMER * Andre Cesar MD - 04/07/2024 10:46 AM CST GENERAL INTERNAL MEDICINE Progress Note Hospital Course: Emerald Villafana is a 88 year old F with a PMHx of CAD s/p stent, dementia, COPD (not on O2), HLD, HTN, GERD, recent admission from 03/11 to 03/13 with malignant hypertension and a penetrating atherosclerotic ulcer treated medically admitted on 03/13/2024 after fall with head trauma resulting SDH and SAH. Hospital course complicated by delirium with agitation, TBI, resp failure and shock. Patient als o treated for UTI, completed 5 days IV ceftriaxone. [facility] for further management. Subjective: No acute events overnight. Patient found resting in bed this morning. Objective: Blood pressure 126/77, pulse 71, temperature 97.8 ??F (36.6 ??C), temperature source Axillary, resp. rate 16, height 1.702 m (5' 7 ), weight 87.8 kg (193 lb 9.6 oz), SpO2 92%. Gen: Awake and alert; Oriented to person only NAD HEENT: NCAT, EOMI, MMM RESP: Clear to auscultation CV: Nl S1 and S2 No gallops. GI: Soft and non tender. +BS, no HSM EXT: No edema. MAR reviewed Labs: CBC: Recent Labs Lab Units 04/06/24 0442 04/01/24 1950 WBC x10E9/L 7.4 7.3 RBC x10E12/L 3.34* 3.24* HGB g/dL 9.2* 9.1* HCT % 31.8* 30.5* BMP: Recent Labs Lab Units 04/06/24 0442 04/01/24 1950 NA mmol/L 147* 144 CL mmol/L 113* 111* CO2 mmol/L 30* 24 BUN mg/dL 25 28* CREATININE mg/dL 0.81 0.81 CALCIUM mg/dL 8.8 8.6 Assessment/Plan: TBI SDH, SAH Right temporal brain contusion Left frontal scalp contusion - Neurosurgery consulted. No acute intervention - monitoring neuro exam q4. - Repeat CT Head 04/04, stable. Grade II liver laceration - non-op management Right forehead laceration - s/p ENT repair CAD with descending aortic mural thrombus/ulcer HTN HLD - continue losartan, carvedilol - continue atorvastatin - plan for Vascular follow-up as outpatient COPD - stable on room air. - CTM Dementia Acute encephalopathy Sleep disturbance Agitation - Patient was seen by Geriatrics - Delirium precautions - Trazodone prn started for sleep. - Holding home prozac GERD - continue lansoprazole UTI - completed ceftriaxone x 5 days Urinary retention - Urology consulted - Vasquez catheter removed 04/06. Straight cath this am 450 cc urine. Will continue Bladder scan and straight cath prn q 6 hrs. - Continue tamsulosin Dysphagia - mechanical soft diet - Speech therapy following LDA: PIV Diet: Modified consistency Consults: Neurosurg, ENT, Trauma, Geriatrics, Urology, Palliative Care DVT prophylaxis: Lovenox sq Code status: DNR Disposition: Continue inpatient care. Placement pending. Andre Cesar MD General Internal Medicine 04/07/2024 PROGRAMMER * Esdras Cowart RN - 04/07/2024 2:33 AM CST Problem: Safety related to restraint use Goal: Absence of injury while restrained Outcome: Progressing Problem: Skin Integrity Goal: Skin integrity is maintained or improved Outcome: Progressing Problem: Impaired Gas Exchange Goal: Resp rate/effort will be within specified limits Outcome: Progressing Problem: Mobility Goal: Patient's mobility/activity will be maintained as optimum level for age, diagnosis and physical limitations Outcome: Progressing Goal: Continuum of care needs are further met through referral to outpatient services when appropriate. Outcome: Progressing Goal: Patient reports the ability to perform Activities of Daily Living. Outcome: Progressing Problem: Fall Risk Goal: Fall risk and fall related injury risk are minimized (interventions related to the fall risk can be found in the flowsheet documentation) Outcome: Progressing Problem: Pain/Discomfort Goal: Patient exhibits reduced pain/discomfort as evidenced by pain scores Outcome: Progressing Goal: Patient uses pharmacological and non-pharmacological pain management strategies. Outcome: Progressing Goal: Patient verbalizes acceptable level of pain relief and ability to engage in desired activity. Outcome: Progressing Problem: Potential for Urinary Catheter-Associated Infection Goal: Signs and Symptoms of urinary catheter-associated infection are avoided Outcome: Progressing Goal: Normal urinary patterns are established within parameters of age and disease process Outcome: Progressing Problem: Risk for Violence: Self-Directed or Other Directed Description: Diagnosis: Risk for self-directed Violence or Risk for Directed Violence Risk Factors: Biochemical/neurologic imbalances, impulsivity, manic excitement, psychotic symptomatology, rage reaction, restlessness Possibly Evidenced By: agitated behaviors, delusional thinking, hallucinations, loud/threatening/profane speech, poor impulse control, provocative behaviors, verbal threats against others, verbal threats against self Goal: Patient will verbalize control of feelings. Outcome: Progressing Goal: Patient will respond to interventions when potential or actual loss of control occurs. Outcome: Progressing Goal: Patient will refrain from provoking others to physical harm. Outcome: Progressing Goal: Patient will display nonviolent behaviors toward others in the hospital, with the aid of medications and nursing interventions. Outcome: Progressing Goal: Patient will seek help when experiencing aggressive impulses. Outcome: Progressing Goal: Patient will refrain from verbal threats and loud, profrane language toward others. Outcome: Progressing Goal: Patient will be safe and free from injury. Outcome: Progressing Problem: Transfers Goal: STG - Patient to transfer to and from sit to supine Outcome: Progressing Problem: Swallowing Goal: LTG - Patient will tolerate the least restrictive diet consistency to allow for safe consumption of daily meals Outcome: Progressing Goal: STG - Patient will tolerate recommended food and liquid consistencies without clinical signs and symptoms of aspiration Outcome: Progressing Problem: Restraint Safety Goal: Free from restraint(s) Description: INTERVENTIONS: Outcome: Progressing Goal: Remains free of injury from restraints Description: INTERVENTIONS: Outcome: Progressing Problem: Skin/Tissue Integrity - Adult Goal: Skin integrity remains intact Description: INTERVENTIONS: Outcome: Progressing Goal: Incisions, wounds, or drain sites healing without S/S of infection Description: INFECTIONS: Outcome: Progressing Goal: Oral mucous membranes remain intact Description: INTERVENTIONS: Outcome: Progressing Problem: Musculoskeletal - Adult Goal: Return mobility to safest level of function Description: INTERVENTIONS: Outcome: Progressing Goal: Maintain proper alignment of affected body part Description: INTERVENTIONS: Outcome: Progressing Goal: Return ADL status to a safe level of function Description: INTERVENTIONS: Outcome: Progressing Problem: Coping Goal: Patient/Healthcare Agent able to verbalize concerns and demonstrate effective coping strategies Description: INTERVENTIONS Outcome: Progressing Problem: Behavior Goal: Pt/Family maintain appropriate behavior and adhere to behavioral management agreement, if implemented Description: INTERVENTIONS Outcome: Progressing Problem: Neurosensory - Adult Goal: Achieves stable or improved neurological status Description: INTERVENTIONS Outcome: Progressing Goal: Remains free of injury related to seizures activity Description: INTERVENTIONS: Outcome: Progressing Goal: Achieves maximal functionality and self care Description: INTERVENTIONS: Outcome: Progressing Problem: Respiratory - Adult Goal: Achieves optimal ventilation and oxygenation Description: INTERVENTIONS: Outcome: Progressing Problem: Cardiovascular - Adult Goal: Maintains optimal cardiac output and hemodynamic stability Description: INTERVENTIONS: Outcome: Progressing Goal: Absence of cardiac dysrhythmias or at baseline Description: INTERVENTIONS: Outcome: Progressing Problem: Gastrointestinal - Adult Goal: Minimal or absence of nausea and vomiting Description: INTERVENTIONS: Outcome: Progressing Goal: Maintains or returns to baseline bowel function Description: INTERVENTIONS: Outcome: Progressing Goal: Maintains adequate nutritional intake Description: INTERVENTIONS: Outcome: Progressing Problem: Genitourinary - Adult Goal: Absence of urinary retention Description: INTERVENTIONS: Outcome: Progressing Goal: Urinary catheter remains patent Description: INTERVENTIONS: Outcome: Progressing Problem: Infection - Adult Goal: Infections are decreased or avoided Description: INTERVENTIONS: Outcome: Progressing Problem: Metabolic/Fluid and Electrolytes - Adult Goal: Electrolytes maintained within normal limits Description: INTERVENTIONS: Outcome: Progressing Goal: Hemodynamic stability and optimal renal function maintained Description: INTERVENTIONS: Outcome: Progressing Goal: Glucose maintained within prescribed range Description: INTERVENTIONS: Outcome: Progressing Problem: Hematologic - Adult Goal: Maintains hematologic stability Description: INTERVENTIONS: Outcome: Progressing Problem: Anxiety Goal: Will report anxiety at manageable levels Description: INTERVENTIONS Outcome: Progressing Problem: Decision Making Goal: Patient/Healthcare Agent able to effectively weigh alternatives and participate in decision making related to treatment and care. Description: INTERVENTIONS Outcome: Progressing PROGRAMMER * Bernadette Jacobs MSW - 04/06/2024 3:05 PM CST Social Work Progress Note Discharge Plan Disposition: TBD Transportation (if ambulance rationale): Transportation at discharge: Family Anticipated Discharge Date: 04/03/2024 Contacts: Extended Emergency Contact Information Primary Emergency Contact: Meri Henderson (POA) Mobile Relation: Daughter Preferred language: Icelandic V Belt Curer needed? No Secondary Emergency Contact: shay washington Mobile Relation: Daughter Guardian: SANTIAGOMERI POA Mobile Relation: Daughter DENISE called pt's memory care facility ([facility]) and spoke to Tsering ([phone]). DENISE asked if a nurse or liaison could visit pt at [facility], since pt is now at her baseline. Tsering said a nurse will visit pt on Saturday, 04/08, in the afternoon. JOSE LUIS Reinoso [phone] PROGRAMMER * Andre Cesar MD - 04/06/2024 7:49 AM CST GENERAL INTERNAL MEDICINE Progress Note Hospital Course: Emerald Villafana is a 88 year old F with a PMHx of CAD s/p stent, dementia, COPD (not on O2), HLD, HTN, GERD, recent admission from 03/11 to 03/13 with malignant hypertension and a penetrating atherosclerotic ulcer treated medically admitted on 03/13/2024 after fall with head trauma resulting SDH and SAH. Hospital course complicated by delirium with agitation, TBI, resp failure and shock. Patient als o treated for UTI, completed 5 days IV ceftriaxone. [facility] further management. Subjective: No acute events overnight. Patient found resting in bed this morning. She denies pain or discomfort. Objective: Blood pressure 130/68, pulse 74, temperature 98 ??F (36.7 ??C), temperature source Oral, resp. rate18, height 1.702 m (5' 7 ), weight 87.8 kg (193 lb 9.6 oz), SpO2 96%. Gen: Awake and alert; Oriented to person only NAD HEENT: NCAT, EOMI, MMM RESP: Clear to auscultation CV: Nl S1 and S2 No gallops. GI: Soft and non tender. +BS, no HSM EXT: No edema. MAR reviewed Labs: CBC: Recent Labs Lab Units 04/06/2444104/01/241949 WBC x10E9/L 7.4 7.3 RBC x10E12/L 3.34* 3.24* HGB g/dL 9.2* 9.1* HCT % 31.8* 30.5* BMP: Recent Labs Lab Units 04/06/2444104/01/241949 NA mmol/L 147* 144 CL mmol/L 113* 111* CO2 mmol/L 30* 24 BUN mg/dL 25 28* CREATININE mg/dL 0.81 0.81 CALCIUM mg/dL 8.8 8.6 Assessment/Plan: TBI SDH, SAH Right temporal brain contusion Left frontal scalp contusion - Neurosurgery consulted. No acute intervention - monitoring neuro exam q4. - Repeat CT Head 04/04, stable. Grade II liver laceration - non-op management Right forehead laceration - s/p ENT repair CAD with descending aortic mural thrombus/ulcer HTN HLD - continue losartan, carvedilol - continue atorvastatin - plan for Vascular follow-up as outpatient COPD - stable on room air. - CTM Dementia Acute encephalopathy Sleep disturbance Agitation - Patient was seen by Geriatrics - Delirium precautions - Trazodone prn started for sleep. - Holding home prozac GERD - continue lansoprazole UTI - completed ceftriaxone x 5 days Urinary retention - Urology consulted - Vasquez catheter in place. - Discontinue vasquez for voiding trial today 04/06 - Continue tamsulosin Dysphagia - mechanical soft diet - Speech therapy following LDA: PIV Diet: Modified consistency Consults: Neurosurg, ENT, Trauma, Geriatrics, Urology, Palliative Care DVT prophylaxis: Lovenox sq Code status: DNR Disposition: Continue inpatient care. Placement pending. Plan for SNF placement. Andre Cesar MD General Internal Medicine 04/06/2024 PROGRAMMER * Lakshmi Traore RN - 04/06/2024 4:06 AM CST Problem: Skin Integrity Goal: Skin integrity is maintained or improved Outcome: Progressing Problem: Impaired Gas Exchange Goal: Resp rate/effort will be within specified limits Outcome: Adequate for Discharge Problem: Mobility Goal: Patient's mobility/activity will be maintained as optimum level for age, diagnosis and physical limitations Outcome: Progressing Goal: Continuum of care needs are further met through referral to outpatient services when appropriate. Outcome: Progressing Goal: Patient reports the ability to perform Activities of Daily Living. Outcome: Progressing Problem: Fall Risk Goal: Fall risk and fall related injury risk are minimized (interventions related to the fall risk can be found in the flowsheet documentation) Outcome: Progressing Problem: Pain/Discomfort Goal: Patient exhibits reduced pain/discomfort as evidenced by pain scores Outcome: Adequate for Discharge Goal: Patient uses pharmacological and non-pharmacological pain management strategies. Outcome: Adequate for Discharge Goal: Patient verbalizes acceptable level of pain relief and ability to engage in desired activity. Outcome: Adequate for Discharge Problem: Potential for Urinary Catheter-Associated Infection Goal: Signs and Symptoms of urinary catheter-associated infection are avoided Outcome: Progressing Goal: Normal urinary patterns are established within parameters of age and disease process Outcome: Progressing Problem: Transfers Goal: STG - Patient to transfer to and from sit to supine Outcome: Progressing Problem: Swallowing Goal: LTG - Patient will tolerate the least restrictive diet consistency to allow for safe consumption of daily meals Outcome: Progressing Goal: STG - Patient will tolerate recommended food and liquid consistencies without clinical signs and symptoms of aspiration Outcome: Progressing Problem: Skin/Tissue Integrity - Adult Goal: Skin integrity remains intact Description: INTERVENTIONS: Outcome: Progressing Goal: Incisions, wounds, or drain sites healing without S/S of infection Description: INFECTIONS: Outcome: Progressing Goal: Oral mucous membranes remain intact Description: INTERVENTIONS: Outcome: Progressing Problem: Musculoskeletal - Adult Goal: Return mobility to safest level of function Description: INTERVENTIONS: Outcome: Progressing Goal: Maintain proper alignment of affected body part Description: INTERVENTIONS: Outcome: Progressing Goal: Return ADL status to a safe level of function Description: INTERVENTIONS: Outcome: Progressing Problem: Neurosensory - Adult Goal: Achieves stable or improved neurological status Description: INTERVENTIONS Outcome: Progressing Goal: Remains free of injury related to seizures activity Description: INTERVENTIONS: Outcome: Progressing Goal: Achieves maximal functionality and self care Description: INTERVENTIONS: Outcome: Progressing Problem: Respiratory - Adult Goal: Achieves optimal ventilation and oxygenation Description: INTERVENTIONS: Outcome: Progressing Problem: Cardiovascular - Adult Goal: Maintains optimal cardiac output and hemodynamic stability Description: INTERVENTIONS: Outcome: Progressing Goal: Absence of cardiac dysrhythmias or at baseline Description: INTERVENTIONS: Outcome: Progressing Problem: Gastrointestinal - Adult Goal: Minimal or absence of nausea and vomiting Description: INTERVENTIONS: Outcome: Progressing Goal: Maintains or returns to baseline bowel function Description: INTERVENTIONS: Outcome: Progressing Goal: Maintains adequate nutritional intake Description: INTERVENTIONS: Outcome: Progressing Problem: Genitourinary - Adult Goal: Absence of urinary retention Description: INTERVENTIONS: Outcome: Progressing Goal: Urinary catheter remains patent Description: INTERVENTIONS: Outcome: Progressing Problem: Infection - Adult Goal: Infections are decreased or avoided Description: INTERVENTIONS: Outcome: Progressing Problem: Metabolic/Fluid and Electrolytes - Adult Goal: Electrolytes maintained within normal limits Description: INTERVENTIONS: Outcome: Progressing Goal: Hemodynamic stability and optimal renal function maintained Description: INTERVENTIONS: Outcome: Progressing Goal: Glucose maintained within prescribed range Description: INTERVENTIONS: Outcome: Progressing Problem: Hematologic - Adult Goal: Maintains hematologic stability Description: INTERVENTIONS: Outcome: Progressing Problem: Behavior Goal: Pt/Family maintain appropriate behavior and adhere to behavioral management agreement, if implemented Description: INTERVENTIONS Outcome: Progressing Problem: Anxiety Goal: Will report anxiety at manageable levels Description: INTERVENTIONS Outcome: Adequate for Discharge PROGRAMMER * Selam Howe RN - 04/05/2024 11:33 AM CST Patient's daughter present very upset about patient's straws, toothbrush and other miscellaneous item that she could not identify. This nurse tried to recover what she could but the daughter refused them. Daughter stated that it was our fault that the items were lost. Although the room was being prepared for another patient at the same time as we were getting said patient moved to a room closer to the nurse's station after her fall. The daughter also stated that it was our fault that the patient fell. The patient was in the chair per the request of the daughter after this nurse and the BLENDER CONVEYOR OPERATOR educated her on why it was safer to leave her in bed. But the daughter insisted. I tried to explain that we had just situated her shortly before her fall, and if there was anythingthat could be done in this moment to let me know. PROGRAMMER * Andre Cesar MD - 04/05/2024 10:14 AM CST GENERAL INTERNAL MEDICINE Progress Note Hospital Course: Emerald Villafana is a 88 year old F with a PMHx of CAD s/p stent, dementia, COPD (not on O2), HLD, HTN, GERD, recent admission from 03/11 to 03/13 with malignant hypertension and a penetrating atherosclerotic ulcer treated medically admitted on 03/13/2024 after fall with head trauma resulting SDH and SAH. Hospital course complicated by delirium with agitation, TBI, resp failure and shock. Patient als o treated for UTI, completed 5 days IV ceftriaxone. Patient transferred from Trauma service to [facility] unit on 03/31 for further management. Subjective: Patient had a fall as she attempted to get out of chair without assistance last evening. Concern for head injury. CT head obtained, stable, improving SDH, not concerning. Daughter, Abelpdated this morning. Objective: Blood pressure 152/73, pulse 91, temperature 98.8 ??F (37.1 ??C), temperature source Axillary, resp. rate 14, height 1.702 m (5' 7 ), weight 87.8 kg (193 lb 9.6 oz), SpO2 94%. Gen: Awake and alert; Oriented to person only NAD HEENT: NCAT, EOMI, MMM RESP: Clear to auscultation CV: Nl S1 and S2 No gallops. GI: Soft and non tender. +BS, no HSM EXT: No edema. MAR reviewed Labs: CBC: Recent Labs Lab Units 04/01/24 1950 WBC x10E9/L 7.3 RBC x10E12/L 3.24* HGB g/dL 9.1* HCT % 30.5* BMP: Recent Labs Lab Units 04/01/24 1950 NA mmol/L 144 CL mmol/L 111* CO2 mmol/L 24 BUN mg/dL 28* CREATININE mg/dL 0.81 CALCIUM mg/dL 8.6 Assessment/Plan: TBI SDH, SAH Right temporal brain contusion Left frontal scalp contusion - Neurosurgery consulted. No acute intervention - monitoring neuro exam q4. - Repeat CT Head 04/04, stable. Grade II liver laceration - non-op management Right forehead laceration - s/p ENT repair CAD with descending aortic mural thrombus/ulcer HTN HLD - continue losartan, carvedilol - continue atorvastatin - plan for Vascular follow-up as outpatient COPD - stable on room air. - CTM Dementia Acute encephalopathy Sleep disturbance Agitation - Patient was seen by Geriatrics - Delirium precautions - Trazodone prn started for sleep. - Holding home prozac GERD - continue lansoprazole UTI - completed ceftriaxone x 5 days Urinary retention - Urology consulted - Vasquez catheter in place, plan for voiding trial re-attempt. - Continue tamsulosin Dysphagia - mechanical soft diet - Speech therapy following LDA: PIV Diet: Modified consistency Consults: Neurosurg, ENT, Trauma, Geriatrics, Urology, Palliative Care DVT prophylaxis: Lovenox sq Code status: DNR Disposition: Continue inpatient care. Placement pending. Plan for SNF placement. Andre Cesar MD General Internal Medicine 04/05/2024 PROGRAMMER * Selam Howe RN - 04/04/2024 7:31 PM CST Patient was in the recliner and tried to get out of the recliner lost her balance and fell onto thefloor around 1800, she hit her head in the same spot that was being treated with vaseline, residentwas placed in the bed vitals were obtained and WNL, neuro checks were within baseline to patient, MD was notified and also came to assess, gave order to get a CT and patient is awaiting transport, POA made aware and was asked to kept informed of patient condition, fall documentation completed andreport given to oncoming nurse PROGRAMMER * Isabella Elliott MD - 04/04/2024 6:04 PM CST Patient is 88 years old with dementia who originally was admitted as level 1 trauma after ground level fall and was found to have laceration to her scalp that to renal hemorrhage and subdural hematoma. I was called by the nurse for a fall patient was moved the chair per family request and she was found to be in the ground hit her head and she was bleeding from her right forehead. Patient awake, alert, does not communicate, does not answer to direct questions or follow commands however move her extremities spontaneously, nursing team at the bedside and they stated that is her baseline. Checkedat the bleeding site with tiny cuts and bruising, stat CT head was ordered. PROGRAMMER * Andre Cesar MD - 04/04/2024 7:55 AM CST GENERAL INTERNAL MEDICINE Progress Note Hospital Course: Emerald Villafana is a 88 year old F with a PMHx of CAD s/p stent, dementia, COPD (not on O2), HLD, HTN, GERD, recent admission from 03/11 to 03/13 with malignant hypertension and a penetrating atherosclerotic ulcer treated medically admitted on 03/13/2024 after fall with head trauma resulting SDH and SAH. Hospital course complicated by delirium with agitation, TBI, resp failure and shock. Patient als o treated for UTI, completed 5 days IV ceftriaxone. [facility] for further management. Subjective: Patient with no acute events overnight. She denies pain or discomfort. Objective: Blood pressure 148/62, pulse 64, temperature 97.7 ??F (36.5 ??C), temperature source Axillary, resp. rate 20, height 1.702 m (5' 7 ), weight 87.8 kg (193 lb 9.6 oz), SpO2 96%. Gen: Awake and alert; Oriented to person only NAD HEENT: NCAT, EOMI, MMM RESP: Clear to auscultation CV: Nl S1 and S2 No gallops. GI: Soft and non tender. +BS, no HSM EXT: No edema. MAR reviewed Labs: CBC: Recent Labs Lab Units 04/01/24 1950 WBC x10E9/L 7.3 RBC x10E12/L 3.24* HGB g/dL 9.1* HCT % 30.5* BMP: Recent Labs Lab Units 04/01/24 1950 NA mmol/L 144 CL mmol/L 111* CO2 mmol/L 24 BUN mg/dL 28* CREATININE mg/dL 0.81 CALCIUM mg/dL 8.6 Assessment/Plan: TBI SDH, SAH Right temporal brain contusion Left frontal scalp contusion - Neurosurgery consulted. No acute intervention - monitoring neuro exam q4. Grade II liver laceration - non-op management Right forehead laceration - s/p ENT repair CAD with descending aortic mural thrombus/ulcer HTN HLD - continue losartan, carvedilol - continue atorvastatin - plan for Vascular follow-up as outpatient COPD - stable on room air. - CTM Dementia Acute encephalopathy Sleep disturbance Agitation - Patient was seen by Geriatrics - Delirium precautions - Trazodone prn started for sleep. - Holding home prozac GERD - continue lansoprazole UTI - completed ceftriaxone x 5 days Urinary retention - Urology consulted - Vasquez catheter in place, plan for voiding trial re-attempt. - Continue tamsulosin Dysphagia - mechanical soft diet - Speech therapy following LDA: PIV Diet: Modified consistency Consults: Neurosurg, ENT, Trauma, Geriatrics, Urology, Palliative Care DVT prophylaxis: Lovenox sq Code status: DNR Disposition: Continue inpatient care. Placement pending. Plan for SNF placement. Andre Cesar MD General Internal Medicine 04/04/2024 PROGRAMMER * Rodney You RN - 04/04/2024 1:01 AM CST Problem: Fall Risk Goal: Fall risk and fall related injury risk are minimized (interventions related to the fall risk can be found in the flowsheet documentation) Outcome: Progressing PROGRAMMER * Raven Waddell SLP - 04/03/2024 3:[address] [facility] Physical Medicine and Rehabilitation Swallow Treatment Patient: Emerald Villafana [facility] Record Number: [id number] Date of : 1935 Age: [age] year old PPE: PPE worn by staff: gloves Impressions: Pt seen at bedside with PO trials of thin liquids, purees, and ground textures with noclinical s/s aspiration. Pt with increased AP transit of ground texture but able to clear with extra time and a liquid wash. Recommend pt remain on pureed diet with thin liquids. ST will continue to follow for diet tolerance and to advance diet as appropriate. Recommendations: Diet Liquids Recommendation: Thin/ Thin (0) Diet Solids Recommendation: Pureed (4)/Pureed Dys 1 Recommended Form of Meds: Crushed;With puree Compensatory Swallowing Strategies: 90 Degrees elevation for all oral intake;One to one assist withmeals;Alternate solids and liquids;Small bites/sips;Eat/Feed slowly Recommended Tests/Consults: Recommendations: Dysphagia Treatment Discharge Recommendations: Speech therapy is recommended to improve swallow function. SUBJECTIVE: Patient Goals: None stated Pain Assessment: Pain Assessment Pain Scale/Observation: FLACC Pain Rating Score #1: 0 Sedation Level: 1-Awake and alert OBJECTIVE: Level of Consciousness: alert Orientation Level: disoriented x 4 Positioning: Seated in a chair Respiratory Status: room air Swallow Trials: Thin Liquid: Presentation: Straw-Assisted Oral: Within Functional Limits Pharyngeal: (No clinical indicators of dysphagia) Puree: Presentation: Spoon-Assisted Oral: Within Functional Limits Pharyngeal: (No clinical indicators of dysphagia) Ground Texture: Presentation: Spoon-Assisted Oral: Increased Anterior to Posterior Transit (Oral residue requiring liquid wash to clear) Pharyngeal: (No clinical indicators of dysphagia) Assessment: Risk For Aspiration: Mild Primary Diagnostic Impression - Oral: Mild Primary Diagnostic Impression - Pharyngeal: No dysphagia suspected Treatment/Education/Interventions: While performing MEDIA ASSISTANT, Patient was instructed in: results of swallow evaluation, diet/liquid recommendations, and swallowing strategies/aspiration precautions. Patient demonstrated Questionable understanding of instructions given. Nurse contacted regarding results of treatment session. INFORMED CONSENT TO TREATMENT: Plan of care is discussed but patient with questionable understanding. Short Term Goals Patient will tolerate recommended food and liquid consistencies without clinical signs of aspiration., Patient will demonstrate an improvement in oropharyngeal swallow function to warrant diet upgrade. Direct Care Staffer Goal (s): Patient to discharge to appropriate next level of inpatient care. Plan: ST will continue to follow for diet tolerance and to advance diet as appropriate. PROGRAMMER * Jn Walters, PT - 04/03/2024 2:[address] [facility] Physical Medicine and Rehabilitation Physical Therapy Progress Note Patient: Emerald Villafana [facility] Record Number: [id number] Date of : 1935 Age: [age] year old PPE worn by staff: gloves PPE worn by patient: socks - clean Tech: NA Recommendations: Discharge PT Discharge Recommendations: Patient would benefit from multidisciplinary therapy This recommendation is made due to ongoing PT functional needs: address functional deficits SUBJECTIVE: Subjective: Pt willing to participate with therapy and sits up at edge of chair on her own. Pain Assessment: Pain Assessment Pain Scale/Observation: FLACC Sedation Level: S-Sleeping, easy to arouse PRECAUTIONS: Weight Bearing Status: (No Restrictions) Activity Level: Activity as Tolerated OBJECTIVE: At start of therapy session, patient found in patient bedside chair and with chair alarm on General Appearance: Patient was sleeping upon entry in the chair but easy to arouse. She was pleasantly confused. Vitals: (*Assess the 3 levels of oxygen saturations both for room air and 02 unless rest on room air is 88% or less). Rest BP: 131/63 HR: 62 Sp02 Sp02 Room Air L O2 Post Activity BP: 144/61 HR: 66 Sp02 Sp02 Room Air L O2 Observations: Unable to assess symptoms due to confusion. Mental Status/Cognition: Level of Consciousness-Adult: Responds to voice Orientation Level: Disoriented to Situation;Disoriented to Time;Disoriented to Place (baseline dementia) Cognition: Confused;Poor attention or concentration Following Commands: Follows one step commands with repetition/cues Mobility: A gait belt and non-slip socks were used for all out of bed activity this date. Bed Mobility: Supine to Sit: Other (Comment) (Pt sitting in chair upon entry.) Transfers: Sit to Stand: Minimal Assistance Stand to Sit: Minimal Assistance Transfer Device: Gait belt;Walker-2 Wheeled Gait: Weight Bearing Status: (No Restrictions) Distance Ambulated (ft): 30 FEET (x3) Ambulation: Assistive Device: Walker-2 Wheeled;Gait Belt Ambulation: Level of Assistance: Minimum Assistance Ambulation: Gait Deviations: Lauryn - Decreased;Antalgic Comments: Patient tolerated session well without buckling today. She required seated breaks while walking due to fatigue. She was able to perform exercises in the chair in between bouts of walking. She was pleasantly confused and would carry conversations sporadically with staff. Balance: Balance Scales/Tests Used: Sitting: Static/Dynamic;Standing: Static/Dynamic Sitting - Static: Good -;With One Upper Extremity Support Sitting - Dynamic: Good -;With One Upper Extremity Support Standing - Static: Fair +;With Both Upper Extremity's Support Standing - Dynamic: Fair;With Both Upper Extremity's Support ACTIVITY TOLERANCE: Activity Tolerance: Requires seated rest breaks TREATMENT/INTERVENTIONS: strengthening exercises, transfer training, and gait training Required Visual Cuing to Perform activities - LAQ 2x10 - Ankle Circles 2x15 Modified Joel: Current Modified Joel Score: 4 AM-PAC 6 Clicks Mobility Raw Score:: 16 EDUCATION: While performing PT, Patient was instructed in:functional mobility training, safety awareness/fall precautions , home exercise program Presented to patient who demonstrates Poor understanding of instructions given. ASSESSMENT: Patient would benefit from additional Physical Therapy sessions to achieve the following functionalgoals to enhance independence. Short Term Goals: Goal Formation With patient Patient will perform bed mobility with moderate assist of 1 (Upgrade 03/26) Patient will transfer sit to/from stand with Standby Assist - Goal Updated 04/03/24 Patient will demonstrate sitting balance of normal x 5 minutes - Goal Updated 04/03/24 Patient to ambulate 50 ft with Standby Assist - Goal Updated 04/03/24 Direct Care Staffer Goal(s): Patient to discharge to appropriate next level of inpatient care INFORMED CONSENT TO TREATMENT: Plan of care including recommended therapy, goals and frequency, discussed with patient who understands and agrees to proceed. Equipment Issued: gait belt and assistive device Plan: Patient continues to benefit from skilled therapy services., Goals updated this date. If patient is discharged from the facility, this note serves as a discharge summary if further physical therapy visits did not occur. Refer to filed flowsheet for further details. Following therapy session, patient left in patient bedside chair , with waffle seat cushion in place, with chair alarm on and positioned under patient's buttocks , with call light within reach, with fall mats in place, all lines/tubes intact. PROGRAMMER * Lorena Acosta RN - 04/03/2024 2:28 PM CST Problem: Skin Integrity Goal: Skin integrity is maintained or improved Outcome: Progressing Problem: Fall Risk Goal: Fall risk and fall related injury risk are minimized (interventions related to the fall risk can be found in the flowsheet documentation) Outcome: Progressing Problem: Potential for Urinary Catheter-Associated Infection Goal: Signs and Symptoms of urinary catheter-associated infection are avoided Outcome: Progressing Problem: Skin/Tissue Integrity - Adult Goal: Skin integrity remains intact Description: INTERVENTIONS: Outcome: Progressing Goal: Incisions, wounds, or drain sites healing without S/S of infection Description: INFECTIONS: Outcome: Progressing Goal: Oral mucous membranes remain intact Description: INTERVENTIONS: Outcome: Progressing Problem: Musculoskeletal - Adult Goal: Return mobility to safest level of function Description: INTERVENTIONS: Outcome: Progressing Goal: Return ADL status to a safe level of function Description: INTERVENTIONS: Outcome: Progressing Problem: Neurosensory - Adult Goal: Achieves stable or improved neurological status Description: INTERVENTIONS Outcome: Progressing Goal: Achieves maximal functionality and self care Description: INTERVENTIONS: Outcome: Progressing Problem: Genitourinary - Adult Goal: Urinary catheter remains patent Description: INTERVENTIONS: Outcome: Progressing Problem: Infection - Adult Goal: Infections are decreased or avoided Description: INTERVENTIONS: Outcome: Progressing Problem: Oral Intake: Inadequate oral intake Goal: Total intake will meet estimated nutrient needs Outcome: Progressing PROGRAMMER * Emelia Bain RN - 04/03/2024 1:59 PM CST Care Coordination Progress Note Expected Discharge Date: 04/03/2024 Discharge Plan: RN YEVGENIY spoke to patients daughter Meri and obtained additional choices for SNF. Referrals sent by [facility]. Awaiting response. Plan is for patient to return to her [facility] after skilled stay. ZACH VUONG will continue to follow. Continued Care and Services - Admitted Since 03/13/2024 Destination Service Provider Request Status Selected Services Address Phone Fax Patient Preferred [facility] Considering I don't have a bed available today, sorry!, looks like nothing available over weekend -- [address] [facility] [address] [phone] -- [facility] Pending - Request Sent -- [facility] [address] [phone] -- [facility] Pending - Request Sent -- [address] [facility] [address] -- [place] Pending - Request Sent -- [address] [place] [address] [phone] -- [facility] Pending - Request Sent -- [address] [place] [address] -- [facility] Declined Facility cannot provide for patient's needs -- [address] [facility] [address] -- [facility] Declined Facility full -- [address] [address] -- Family Support (Name and Phone): Extended Emergency Contact Information Primary Emergency Contact: Meri Henderson (LENNY) Mobile Relation: Daughter Preferred language: Icelandic V Belt Curer needed? No Secondary Emergency Contact: shay washington Mobile Relation: Daughter Guardian: MERI HENDERSON Mobile Relation: Daughter Transportation at Discharge: Family: READMISSION RISK SCORE is 18 at 1:59 PM 04/03/2024.: Name: Emelia Bain RN PROGRAMMER * Alexander Soto DO - 04/03/2024 1:11 PM CST GENERAL INTERNAL MEDICINE Progress Note Hospital Course: Emerald Villafana is a 88 year old F with a PMHx of CAD s/p stent, dementia, COPD (not on O2), HLD, HTN, GERD, recent admission from 03/11 to 03/13 with malignant hypertension and a penetrating atherosclerotic ulcer treated medically admitted on 03/13/2024 after fall with head trauma resulting SDH and SAH. Hospital course complicated by delirium with agitation, TBI, resp failure and shock. Patient als o treated for UTI, completed 5 days IV ceftriaxone. Patient transferred from Trauma service to [facility] unit on 03/31 for further management. Subjective: NAEO. No acute complaint. Pending placement. Objective: Blood pressure 156/59, pulse 76, temperature 97.7 ??F (36.5 ??C), temperature source Oral, resp. rate 17, height 1.702 m (5' 7 ), weight 87.8 kg (193 lb 9.6 oz), SpO2 95%. Gen: Awake and alert; Oriented to person only NAD HEENT: NCAT, EOMI, MMM RESP: Clear to auscultation CV: Nl S1 and S2 No gallops. GI: Soft and non tender. +BS, no HSM EXT: No edema. MAR reviewed Labs: CBC: Recent Labs Lab Units 04/01/24 1950 WBC x10E9/L 7.3 RBC x10E12/L 3.24* HGB g/dL 9.1* HCT % 30.5* BMP: Recent Labs Lab Units 04/01/24 1950 NA mmol/L 144 CL mmol/L 111* CO2 mmol/L 24 BUN mg/dL 28* CREATININE mg/dL 0.81 CALCIUM mg/dL 8.6 Assessment/Plan: TBI SDH, SAH Right temporal brain contusion Left frontal scalp contusion - Neurosurgery consulted. No acute intervention - monitoring neuro exam q4. Grade II liver laceration - non-op management Right forehead laceration - s/p ENT repair CAD with descending aortic mural thrombus/ulcer HTN HLD - continue losartan, carvedilol - continue atorvastatin - plan for Vascular follow-up as outpatient COPD - stable on room air. - CTM Dementia Acute encephalopathy Sleep disturbance Agitation - Patient was seen by Geriatrics - Delirium precautions - Trazodone prn started for sleep. - Holding home prozac GERD - continue lansoprazole UTI - completed ceftriaxone x 5 days Urinary retention - Urology consulted - Vasquez catheter in place, plan for voiding trial re-attempt. - Continue tamsulosin Dysphagia - mechanical soft diet LDA: PIV Diet: Modified consistency Consults: Neurosurg, ENT, Trauma, Geriatrics, Urology, Palliative Care DVT prophylaxis: Lovenox sq Code status: DNR Disposition: Continue inpatient care. Placement pending. Will need short term rehab before ultimately returning to her memory care unit. Alexander Soto DO General Internal Medicine 04/03/2024 PROGRAMMER * Andre Cesar MD - 04/02/2024 8:38 AM CST GENERAL INTERNAL MEDICINE Progress Note Hospital Course: Emerald Villafana is a 88 year old F with a PMHx of CAD s/p stent, dementia, COPD (not on O2), HLD, HTN, GERD, recent admission from 03/11 to 03/13 with malignant hypertension and a penetrating atherosclerotic ulcer treated medically admitted on 03/13/2024 after fall with head trauma resulting SDH and SAH. Hospital course complicated by delirium with agitation, TBI, resp failure and shock. Patient als o treated for UTI, completed 5 days IV ceftriaxone. [facility] on 03/31 for further management. Subjective: Patient with no acute events overnight. She denies pain or discomfort this am. Objective: Blood pressure 157/62, pulse 70, temperature 97.5 ??F (36.4 ??C), temperature source Oral, resp. rate 15, height 1.702 m (5' 7 ), weight 87.8 kg (193 lb 9.6 oz), SpO2 95%. Gen: Awake and alert; Oriented to person only NAD HEENT: NCAT, EOMI, MMM RESP: Clear to auscultation CV: Nl S1 and S2 No gallops. GI: Soft and non tender. +BS, no HSM EXT: No edema. MAR reviewed Labs: CBC: Recent Labs Lab Units 04/01/24 1950 WBC x10E9/L 7.3 RBC x10E12/L 3.24* HGB g/dL 9.1* HCT % 30.5* BMP: Recent Labs Lab Units 04/01/24 1950 NA mmol/L 144 CL mmol/L 111* CO2 mmol/L 24 BUN mg/dL 28* CREATININE mg/dL 0.81 CALCIUM mg/dL 8.6 Assessment/Plan: TBI SDH, SAH Right temporal brain contusion Left frontal scalp contusion - Neurosurgery consulted. No acute intervention - monitoring neuro exam q4. Grade II liver laceration - non-op management Right forehead laceration - s/p ENT repair CAD with descending aortic mural thrombus/ulcer HTN HLD - continue losartan, carvedilol - continue atorvastatin - plan for Vascular follow-up as outpatient COPD - stable on room air. - CTM Dementia Acute encephalopathy Sleep disturbance Agitation - Patient was seen by Geriatrics - Delirium precautions - Trazodone prn started for sleep. - Holding home prozac GERD - continue lansoprazole UTI - completed ceftriaxone x 5 days Urinary retention - Urology consulted - Vasquez catheter in place, plan for voiding trial re-attempt. - Continue tamsulosin Dysphagia - mechanical soft diet LDA: PIV Diet: Modified consistency Consults: Neurosurg, ENT, Trauma, Geriatrics, Urology, Palliative Care DVT prophylaxis: Lovenox sq Code status: DNR Disposition: Continue inpatient care. Placement pending. Andre Cesar MD General Internal Medicine 04/02/2024 PROGRAMMER * Emelia Bain RN - 04/02/2024 8:25 AM CST Care Coordination Progress Note Expected Discharge Date: 04/02/2024 Discharge Plan: Updated clinicals sent to post acute facilities advising that patient is medically ready for discharge. Awaiting response. Continued Care and Services - Admitted Since 03/13/2024 Destination Service Provider Request Status Selected Services Address Phone Fax Patient Preferred [facility] Considering looks like nothing available over weekend -- [address] [facility] [address] [phone] -- [facility] Pending - Request Sent -- [address] [facility] [address] [phone] -- [facility] Declined Facility full -- [address] [place] [address] -- RN CM will continue to follow and assist with discharge planning needs. Family Support (Name and Phone): Extended Emergency Contact Information Primary Emergency Contact: Meri Henderson (LENNY) Mobile Relation: Daughter Preferred language: Icelandic V Belt Curer needed? No Secondary Emergency Contact: shay washington Mobile Relation: Daughter Guardian: MERI HENDERSON Mobile Relation: Daughter Transportation at Discharge: Family: READMISSION RISK SCORE is 18 at 8:25 AM 04/02/2024.: Name: Emelia Bain RN PROGRAMMER * Rodney You RN - 04/01/2024 10:53 PM CST Problem: Fall Risk Goal: Fall risk and fall related injury risk are minimized (interventions related to the fall risk can be found in the flowsheet documentation) Outcome: Progressing PROGRAMMER * Lorena Acosta RN - 04/01/2024 4:36 PM CST Problem: Skin Integrity Goal: Skin integrity is maintained or improved Outcome: Progressing Problem: Impaired Gas Exchange Goal: Resp rate/effort will be within specified limits Outcome: Progressing Problem: Fall Risk Goal: Fall risk and fall related injury risk are minimized (interventions related to the fall risk can be found in the flowsheet documentation) Outcome: Progressing Problem: Potential for Urinary Catheter-Associated Infection Goal: Signs and Symptoms of urinary catheter-associated infection are avoided Outcome: Progressing Goal: Normal urinary patterns are established within parameters of age and disease process Outcome: Progressing Problem: Skin/Tissue Integrity - Adult Goal: Skin integrity remains intact Description: INTERVENTIONS: Outcome: Progressing Goal: Incisions, wounds, or drain sites healing without S/S of infection Description: INFECTIONS: Outcome: Progressing Goal: Oral mucous membranes remain intact Description: INTERVENTIONS: Outcome: Progressing Problem: Musculoskeletal - Adult Goal: Return mobility to safest level of function Description: INTERVENTIONS: Outcome: Progressing Goal: Maintain proper alignment of affected body part Description: INTERVENTIONS: Outcome: Progressing Goal: Return ADL status to a safe level of function Description: INTERVENTIONS: Outcome: Progressing Problem: Genitourinary - Adult Goal: Absence of urinary retention Description: INTERVENTIONS: Outcome: Progressing Goal: Urinary catheter remains patent Description: INTERVENTIONS: Outcome: Progressing PROGRAMMER * Ruba Wise, SILVIANO/LD - 04/01/2024 4:24 PM CST Images from the original note were not included. BRIEF SYNOPSIS: Nutrition Risk Identified but does not meet malnutrition criteria. Nutrition Plan: + Continue Pureed Diet + Continue Ensure Plus High Protein BID w/meals (1.5 kcal) (350 kcal, 20 grams pro, 40 grams CHO) + Start Magic Cup once a day w/meals (290 kcal, 9g protein, 38g CHO) Recommendation to Physician: + Advance diet per ST recommendations + Assist 1:1 w/ meals, setup to tray, open containers, encourage PO intake. Discharge Needs: N/A CLINICAL NUTRITION ASSESSMENT: Pt scheduled for reassessment. Pt admitted for a fall, pt has a forehead wound. Trauma following. Pt has dementia and is AxOx1. ST saw the patient today and recommended a Pureed diet. Per documentation, Pt has been having adequate PO intake, eating 50-100% of her meals. Per chart, patient consumed 120-240mL of the Ensure, RD to continue this order to aid in wound healing. Last BM yesterday. Labs reviewed- eGFR low (82), Glucose high (101-172). Most recent A1c is 5.0%. Pt will discharge to a SNF. RD to order an additional oral nutrition supplement to aid in nutrition status. RD to follow. Med/Surg History and Clinical Diagnoses: PMHx: 88 year old female with dementia for which she resides at a facility presenting as a level 1 trauma following a ground level fall Height: 170.2 cm (5' 7 ) BMI: Body mass index is 30.32 kg/m??. BMI Range: Obese Class 1 IBW/lb (Calculated) Female: 135 Recent Weights/Methods 03/12/2024 0400 03/13/2024 2150 03/14/2024 0349 03/15/2024 0400 03/16/2024 0342 03/17/2024 0045 03/18/2024 0400 03/19/2024 0400 Weight: 65.1 kg (143 lb 8.3 oz) 68 kg (150 lb) 68 kg (150 lb) 68 kg (150 lb) 68 kg (150 lb) 83.4 kg(183 lb 14.4 oz) 83.6 kg (184 lb 3.2 oz) 87.8 kg (193 lb 9.6 oz) Weight Method : Bed scale Estimated Bed scale Bed scale Bed scale Bed scale Bed scale -- Unintentional weight change: Need an updated weight, ordered a new one. Monitoring. Current tube feeding order: d/c'd PO INTAKE Current diet order: Pureed (4) (DYS 1) Nutrition recommendation: agree with current nutrition order Food Allergies: No known food allergies Last % Meal Taken: 100 % (04/01/24 1338) 48 hr PO INTAKE % Meal Taken Av % Min: 50 % Max: 100 % Current supplement order: Ensure Plus High Protein TID Supplement(s) Consumed- Last 48 hours Date/Time Dietary Supplement Name Liquid Supplement Consumed (mL) Non-Liquid Supplement Consumed (%) 03/31/24 1051 Ensure High Protein 240 ML -- 03/31/24 1216 Ensure High Protein 120 ML PATIENT DRANKED HALF OF HER ENSURE -- Pain affecting intake: No Chewing/Swallowing: Dysphagia (Pureed Diet) GI Concerns: None Stools: Stools (# of stools): 1 (03/31/24 1408) Stool Appearance : Formed (03/31/24 1408) Stool Amount: Small (03/31/24 1408) Skin/Wound: Traumatic wound R forehead Estimated Needs: KCAL: 0330-1626 (25-30) Protein (g): 73 (1.2) Fluid (ml): 1 ml/kcal Needs based on: Kcal/kg- (Comment) (IBW 61kg) Recommended Access Route: PO Labs: Recent Labs Component Name 03/25/24 1032 03/22/24 0656 03/21/24 0212 03/16/24 0137 03/15/24 1626 03/14/24 0749 03/13/24 2209 03/12/24 0330 03/11/24 1435 NA 143 143 136 - 131* - 132* - 140 POTASSIUM 4.3 4.4 4.2 - 3.8 - 4.8* - 4.1 CO2 26 22 28 - 21* - 23 - 24 BUN 18 16 16 - 26 - 21 - 12 CREATININE 0.71 0.88 0.99* - 1.16* - 1.01* - 0.92 GLUCOSE 101* 62* 150* - 155* - 201* - 80 CALCIUM 8.7 8.8 8.1* - 7.6* - 8.2* - 8.7 ALT - - - - 9 - 8 ALKPHOS - - - - 57 AST - - - - EGFR 82* 64* 55* - 46* - 54* - 60* - = values in this interval not displayed. Recent Labs Component Name 03/25/24 1032 03/21/24 0212 03/20/24 0029 PHOS 3.2 3.0 2.9 Recent Labs Component Name 03/25/24 1032 03/21/24 0212 03/20/24 0029 MAGNESIUM 2.3 2.1 2.3 Recent Labs Component Name 03/25/24 1032 03/23/24 1304 03/23/24 0215 HGB 9.6* 8.5* 8.5* HCT 30.9* 26.8* 26.9* Recent Labs Component Name 03/14/24 0550 HGBA1C 5.0 No data found. MEDICATIONS FOR CURRENT ENCOUNTER: SCHEDULED MEDICATIONS: 0.9% NaCl injection 3 mL, Intracatheter, q8h aspirin chew tablet 81 mg, Oral, QDAY atorvastatin (Lipitor) tablet 20 mg, Oral, AT BEDTIME carvedilol (Coreg) tablet 25 mg, Oral, BID WC enoxaparin (Lovenox) injection 30 mg, Subcutaneous, q12h lansoprazole (disintegrating) (Prevacid Solutab) tablet 15 mg, Oral, QDAY BEFORE BREAKFAST losartan (Cozaar) tablet 50 mg, Oral, QDAY melatonin tablet 3 mg, Oral, AT BEDTIME polyethylene glycol 3350 (Miralax) packet 17 g, Oral, QDAY tamsulosin (Flomax) capsule 0.4 mg, Oral, QDAY white petroleum (Vaseline) gel, Topical, TID CONTINUOUS MEDICATIONS: PRN MEDICATIONS: Or Or 0.9% NaCl injection 1-10 mL, Intracatheter, PRN acetaminophen (Tylenol) tablet 650 mg, Oral, q4h PRN dextrose IV 12.5 g, Intravenous, PRN dextrose IV 25 g, Intravenous, PRN glucagon (Glucagen) injection 1 mg, Subcutaneous, PRN glucose (Diabetic Use) oral gel, Oral, PRN traZODone (Desyrel) tablet 25 mg, Oral, AT BEDTIME PRN Edema Generalized Edema: None (03/26/241931) RUE Edema: +1-mild pitting, slight indentation (03/22/242099) R Hand Edema: +1-mild pitting, slight indentation (03/22/242099) LUE Edema: Moderate pitting, indentation subsides rapidly (03/31/24 08) L Hand Edema: +1-mild pitting, slight indentation (03/22/242099) Nutrition Diagnostic Statement: Inadequate oral intake related to:: decreased ability to consume ortolerate food and/or fluids due to illness as evidenced by:: oral intake insufficient to meet estimated requirements Nutrition Intervention: Meals and snacks:;Medical Food Supplements:;Feeding assistance:;Collaboration with other providers Education needed: Supplements Education Provided: Not appropriate (03/14/24 0700) Monitoring: PO intake, labs, weight, BM Monitor per nutrition guidelines. Risk Level: High Evaluation: Nutrition Goal: Total intake will meet estimated nutrient needs Nutrition Goal Timeframe: Throughout stay Nutrition Goal Progress: Continue with current goal Ruba Wise RD/SARAI Ascom:[id number] PROGRAMMER * Jn Walters, PT - 04/01/2024 3:[address] [facility] Physical Medicine and Rehabilitation Physical Therapy Progress Note Patient: Emerald Villafana [facility] Record Number: [id number] Date of : 1935 Age: [age] year old PPE worn by staff: gloves PPE worn by patient: socks - clean Tech: N/A Recommendations: Discharge PT Discharge Recommendations: Patient would benefit from multidisciplinary therapy This recommendation is made due to ongoing PT functional needs: address functional deficits SUBJECTIVE: Subjective: Pt nods in agreement. Pain Assessment: Pain Assessment Pain Scale/Observation: FLACC Sedation Level: S-Sleeping, easy to arouse PRECAUTIONS: Weight Bearing Status: (No Restrictions) Activity Level: Activity as Tolerated OBJECTIVE: At start of therapy session, patient found in patient bedside chair, with chair alarm on, and family at bedside. General Appearance: Patient was sleeping in the chair peacefully. Vitals: (*Assess the 3 levels of oxygen saturations both for room air and 02 unless rest on room air is 88% or less). Rest BP: 148/64 HR: 66 Sp02 Sp02 Room Air L O2 Post Activity BP: 123/49 HR: 70 Sp02 Sp02 93% Room Air L O2 Observations: Asymptomatic but unable to fully obtain due to poor communication. Mental Status/Cognition: Level of Consciousness-Adult: Other (comment);Responds to voice (Drowsy) Orientation Level: Disoriented to Place;Disoriented to Situation;Disoriented to Time (Oriented to name) Cognition: Confused;Poor attention or concentration Following Commands: Follows one step commands with repetition/cues Mobility: A gait belt and non-slip socks were used for all out of bed activity this date. Bed Mobility: Supine to Sit: Other (Comment) (Pt sitting in chair upon entry.) Transfers: Sit to Stand: Minimal Assistance Stand to Sit: Moderate Assistance Transfer Device: Gait belt;Walker-2 Wheeled Gait: Weight Bearing Status: (No Restrictions) Distance Ambulated (ft): 20 FEET Ambulation: Assistive Device: Walker-2 Wheeled;Gait Belt Ambulation: Level of Assistance: Minimum Assistance Ambulation: Gait Deviations: Lauryn - Decreased;Increased Trunk Flexion;Hip/knee flexion during swing phase-- decreased Comments: Patient was required multiple verbal and tactile cues to participate with therapy, secondary to being drowsy. Diminished attention span was noted and required multiple tactile cues to redirect. She was able to mobilize with therapy. However, she buckled twice and required therapist intervention to maintain upright. She was then returned to the chair to rest. Balance: Balance Scales/Tests Used: Sitting: Static/Dynamic;Standing: Static/Dynamic Sitting - Static: Fair +;With One Upper Extremity Support Sitting - Dynamic: Fair -;With Both Upper Extremity's Support Standing - Static: Fair;With Both Upper Extremity's Support Standing - Dynamic: Fair -;With Both Upper Extremity's Support ACTIVITY TOLERANCE: Patient's activity tolerance: fair. TREATMENT/INTERVENTIONS: transfer training, gait training, and monitoring of vitals Modified Joel: Current Modified [place] Score: 4 AM-PAC 6 Clicks Mobility Raw Score:: 12 EDUCATION: While performing PT, other:son in law was instructed in:functional mobility training, safety awareness/fall precautions , discharge planning, use of call light Presented to patient who demonstrates Poor understanding of instructions given. ASSESSMENT: Patient would benefit from additional Physical Therapy sessions to achieve the following functionalgoals to enhance independence. Short Term Goals: Goal Formation With patient Patient will perform bed mobility with moderate assist of 1 (Upgrade 03/26) Patient will transfer sit to/from stand with minimal assist and of 1 (Upgrade 03/30) Patient will demonstrate sitting balance of Fair minus x 5 minutes Patient to ambulate 50 ft with moderate assist of 1. (Upgrade 03/30) Shelter Goal(s): Patient to discharge to appropriate next level of inpatient care. INFORMED CONSENT TO TREATMENT: Plan of care including recommended therapy, goals and frequency, discussed with patient who understands and agrees to proceed. Equipment Issued: gait belt and assistive device Plan: Patient continues to benefit from skilled therapy services., Continue with goals as established. If patient is discharged from the facility, this note serves as a discharge summary if further physical therapy visits did not occur. Refer to filed flowsheet for further details. Following therapy session, patient left in patient bedside chair , with waffle seat cushion in place, with chair alarm on and positioned under patient's buttocks , with call light within reach, with fall mats in place, all lines/tubes intact. PROGRAMMER * Raven Waddell, MEDIA ASSISTANT - 04/01/2024 1:[address] [facility] Physical Medicine and Rehabilitation Swallow Treatment Patient: Emerald Villafana Med Record Number: [id number] Date of : 1935 Age: [age] year old PPE: PPE worn by staff: gloves Impressions: Pt seen at bedside with PO trials of thin liquids and purees with no clinical s/s aspiration or dysphagia. Pt's grand daughter at bedside endorses pt having difficulties with minced and moist foods as she does not have dentures with her at this time. Recommend pureed foods and thin liquids. ST will continue to follow for diet tolerance and ongoing assessment of swallow function. Recommendations: Diet Liquids Recommendation: Thin/ Thin (0) Diet Solids Recommendation: Pureed (4)/Pureed Dys 1 Recommended Form of Meds: Crushed;With puree Compensatory Swallowing Strategies: 90 Degrees elevation for all oral intake;One to one assist withmeals;Alternate solids and liquids;Small bites/sips;Eat/Feed slowly Recommended Tests/Consults: Recommendations: Dysphagia Treatment Discharge Recommendations: Patient would benefit from multidisciplinary therapy. Speech therapy is recommended to improve swallow function. SUBJECTIVE: Patient Goals: None stated Pain Assessment: Pain Assessment Pain Scale/Observation: No/denies pain Pain Rating Score #1: 0 Sedation Level: 1-Awake and alert OBJECTIVE: Level of Consciousness: alert Orientation Level: disoriented x 4 Positioning: Seated in a chair Respiratory Status: room air Swallow Trials: Thin Liquid: Presentation: Straw-Assisted Oral: Within Functional Limits Pharyngeal: (No clinical indicators of dysphagia) Puree: Presentation: Spoon-Assisted Oral: Within Functional Limits Pharyngeal: (No clinical indicators of dysphagia) Assessment: Risk For Aspiration: Mild Primary Diagnostic Impression - Oral: Mild Primary Diagnostic Impression - Pharyngeal: Mild Treatment/Education/Interventions: While performing MEDIA ASSISTANT, Patient was instructed in: results of swallow evaluation, diet/liquid recommendations, and swallowing strategies/aspiration precautions. Patient demonstrated Questionable understanding of instructions given. Nurse contacted regarding results of treatment session. INFORMED CONSENT TO TREATMENT: Plan of care is discussed but patient with questionable understanding. Short Term Goals Patient will tolerate recommended food and liquid consistencies without clinical signs of aspiration., Patient will demonstrate an improvement in oropharyngeal swallow function to warrant diet upgrade. Direct Care Staffer Goal (s): Patient to discharge to appropriate next level of inpatient care. Plan: ST will continue to follow for diet tolerance and ongoing assessment of swallowing function. PROGRAMMER * Bunny Wilkins, ROBOTICS TESTING TECHNICIAN-ELECTRIC MOTOR REPAIR SUPERVISOR - 04/01/2024 8:33 AM CST [facility] Transfer Checklist: Reasons for Transfer to [facility] Awaiting SNF or Memory care unit Brief Hospital Course BIBEMS after fall after being discharged from the hospital. She was admitted 03/11- with CAD withdescending aortic mural ulcer and this was treated medically. GCS 7 in trauma bay and intubated. Hypotensive in ED. Had active arterial hemorrhage from right forehead wound and had hemostatic suturesplaced and evidence of SDH and SAH on imaging. Code status DNR. Admitted to trauma ICU for management of polytrauma. She arrived via air ambulance. She was intubated and sedated with a TBI due to brain bleeds. ENT repairs scalp laceratio. Required Levophed for MAP goals. DNR, ok with intubation pernext of kin. Weaned off pressors 03/17, exubated on 03/19, falled swallow study. TTF on 03/21. In la p belt and mitten. Encouraging PO intake. Delirium on floor with sitter. Weaned out of restraints on floor. Has UTI and started on Ceftriaxone. Seroquel was started for delirium and stopped due to lethargy. Weaned from restraints and has security public safety officer. Sitter d/c 03/31 as patient is less impulsive.[place] SNF Pertinent PMH: 88 yo female from assisted living memory care unit, ambulatory, very active in social activities, She has prior CAD s/p stent, dementia, COPD (not on O2), HLD, HTN, GERD, recent admission from 03/11 to 03/13 with malignant hypertension and a penetrating atherosclerotic ulcer with associated smallintramural hematoma along the distal aortic arch with no indication for surgical intervention and was medically managed in the CCU with IV antihypertensives and then transitioned to PO and was discharged home. Same day of discharge with 2 falls, after the initial fall evaluated by EMS without any evidence of abnormalities, but after the second fall evidence of bleeding from scalp and altered mental status. Nutritional Requirements (Dysphagia Diet / TPN / Tube Feed) Minced/moist Home Meds Being Held: Prozac ABx Indications/End Date: Rocephin 03/24-03/29 for UTI Consult Teams Past and Present: Palliative care Geriatrics ENT NSGY Pending Workup: N/a Things to Watch: Falls, place by nurses station Sitter d/c 03/31 Delirium and agitation Make sure she is eating Disposition Place and Date: : pending acceptance- [facility] To Address Prior to DC: N/a Follow Up Appointments: (Already arranged and need to arranged) NSGY Discharge Instructions: Follow up with NSGY Wound care instructions (if applicable) Vaseline TID x 2 weeks to forehead repair F/u ENT PRN Please add PRN Narcan order if appropriate for this patient N/A PROGRAMMER * Andre Cesar MD - 04/01/2024 7:51 AM CST GENERAL INTERNAL MEDICINE Progress Note Hospital Course: Emerald Villafana is a 88 year old F with a PMHx of CAD s/p stent, dementia, COPD (not on O2), HLD, HTN, GERD, recent admission from 03/11 to 03/13 with malignant hypertension and a penetrating atherosclerotic ulcer treated medically admitted on 03/13/2024 after fall with head trauma resulting SDH and SAH. Hospital course complicated by delirium with agitation, TBI, resp failure and shock. Patient als o treated for UTI, completed 5 days IV ceftriaxone. Patient transferred from Trauma service to [facility] unit on 03/31 for further management. Subjective: No acute events overnight. Patient is awake, not oriented. Denies pain or discomfort. Objective: Blood pressure 119/80, pulse 76, temperature 98.2 ??F (36.8 ??C), temperature source Oral, resp. rate 18, height 1.702 m (5' 7 ), weight 87.8 kg (193 lb 9.6 oz), SpO2 93%. Gen: Awake and alert; Oriented to person only NAD HEENT: NCAT, EOMI, MMM RESP: Clear to auscultation CV: Nl S1 and S2 No gallops. GI: Soft and non tender. +BS, no HSM EXT: No edema. MAR reviewed Labs: CBC: Recent Labs Lab Units 03/25/24 1032 WBC x10E9/L 9.1 RBC x10E12/L 3.32* HGB g/dL 9.6* HCT % 30.9* BMP: Recent Labs Lab Units 03/25/24 1032 NA mmol/L 143 CL mmol/L 106 CO2 mmol/L 26 BUN mg/dL 18 CREATININE mg/dL 0.71 CALCIUM mg/dL 8.7 Assessment/Plan: TBI SDH, SAH Right temporal brain contusion Left frontal scalp contusion - Neurosurgery consulted. No acute intervention - monitoring neuro exam q4. Grade II liver laceration - non-op management Right forehead laceration - s/p ENT repair CAD with descending aortic murla thrombus/ulcer HTN HLD - continue losartan, carvedilol - continue atorvastatin - plan for Vascular follow-up as outpatient COPD - stable on room air. - CTM Dementia Acute encephalopathy Sleep disturbance Agitation - Patient was seen by Geriatrics - Delirium precautions - Trazodone prn started for sleep. - holding home prozac GERD - continue lansoprazole UTI - completed ceftriaxone x 5 days Urinary retention - Urology consulted - vasquez catheter in place, plan for voiding trial re-attempt. - Continue tamsulosin Dysphagia - mechanical soft diet/ LDA: PIV Diet: Modified consistency Consults: Neurosurg, ENT, Trauma, Geriatrics, Urology, Palliative Care DVT prophylaxis: Lovenox sq Code status: DNR Disposition: Continue inpatient care. Placement pending. Andre Cesar MD General Internal Medicine 04/01/2024 PROGRAMMER * Noemy Forte RN - 04/01/2024 2:04 AM CST Problem: Safety related to restraint use Goal: Absence of injury while restrained Outcome: Progressing Problem: Skin Integrity Goal: Skin integrity is maintained or improved Outcome: Progressing Problem: Impaired Gas Exchange Goal: Resp rate/effort will be within specified limits Outcome: Progressing Problem: Mobility Goal: Patient's mobility/activity will be maintained as optimum level for age, diagnosis and physical limitations Outcome: Progressing Goal: Continuum of care needs are further met through referral to outpatient services when appropriate. Outcome: Progressing Goal: Patient reports the ability to perform Activities of Daily Living. Outcome: Progressing Problem: Fall Risk Goal: Fall risk and fall related injury risk are minimized (interventions related to the fall risk can be found in the flowsheet documentation) Outcome: Progressing Problem: Pain/Discomfort Goal: Patient exhibits reduced pain/discomfort as evidenced by pain scores Outcome: Progressing Goal: Patient uses pharmacological and non-pharmacological pain management strategies. Outcome: Progressing Goal: Patient verbalizes acceptable level of pain relief and ability to engage in desired activity. Outcome: Progressing Problem: Potential for Urinary Catheter-Associated Infection Goal: Signs and Symptoms of urinary catheter-associated infection are avoided Outcome: Progressing Goal: Normal urinary patterns are established within parameters of age and disease process Outcome: Progressing Problem: Risk for Violence: Self-Directed or Other Directed Description: Diagnosis: Risk for self-directed Violence or Risk for Directed Violence Risk Factors: Biochemical/neurologic imbalances, impulsivity, manic excitement, psychotic symptomatology, rage reaction, restlessness Possibly Evidenced By: agitated behaviors, delusional thinking, hallucinations, loud/threatening/profane speech, poor impulse control, provocative behaviors, verbal threats against others, verbal threats against self Goal: Patient will verbalize control of feelings. Outcome: Progressing Goal: Patient will respond to interventions when potential or actual loss of control occurs. Outcome: Progressing Goal: Patient will refrain from provoking others to physical harm. Outcome: Progressing Goal: Patient will display nonviolent behaviors toward others in the hospital, with the aid of medications and nursing interventions. Outcome: Progressing Goal: Patient will seek help when experiencing aggressive impulses. Outcome: Progressing Goal: Patient will refrain from verbal threats and loud, profrane language toward others. Outcome: Progressing Goal: Patient will be safe and free from injury. Outcome: Progressing Problem: Transfers Goal: STG - Patient to transfer to and from sit to supine Outcome: Progressing Problem: Swallowing Goal: LTG - Patient will tolerate the least restrictive diet consistency to allow for safe consumption of daily meals Outcome: Progressing Goal: STG - Patient will tolerate recommended food and liquid consistencies without clinical signs and symptoms of aspiration Outcome: Progressing Problem: Restraint Safety Goal: Free from restraint(s) Description: INTERVENTIONS: Outcome: Progressing Goal: Remains free of injury from restraints Description: INTERVENTIONS: Outcome: Progressing Problem: Skin/Tissue Integrity - Adult Goal: Skin integrity remains intact Description: INTERVENTIONS: Outcome: Progressing Goal: Incisions, wounds, or drain sites healing without S/S of infection Description: INFECTIONS: Outcome: Progressing Goal: Oral mucous membranes remain intact Description: INTERVENTIONS: Outcome: Progressing Problem: Musculoskeletal - Adult Goal: Return mobility to safest level of function Description: INTERVENTIONS: Outcome: Progressing Goal: Maintain proper alignment of affected body part Description: INTERVENTIONS: Outcome: Progressing Goal: Return ADL status to a safe level of function Description: INTERVENTIONS: Outcome: Progressing Problem: Coping Goal: Patient/Healthcare Agent able to verbalize concerns and demonstrate effective coping strategies Description: INTERVENTIONS Outcome: Progressing Problem: Behavior Goal: Pt/Family maintain appropriate behavior and adhere to behavioral management agreement, if implemented Description: INTERVENTIONS Outcome: Progressing Problem: Neurosensory - Adult Goal: Achieves stable or improved neurological status Description: INTERVENTIONS Outcome: Progressing Goal: Remains free of injury related to seizures activity Description: INTERVENTIONS: Outcome: Progressing Goal: Achieves maximal functionality and self care Description: INTERVENTIONS: Outcome: Progressing Problem: Respiratory - Adult Goal: Achieves optimal ventilation and oxygenation Description: INTERVENTIONS: Outcome: Progressing Problem: Cardiovascular - Adult Goal: Maintains optimal cardiac output and hemodynamic stability Description: INTERVENTIONS: Outcome: Progressing Goal: Absence of cardiac dysrhythmias or at baseline Description: INTERVENTIONS: Outcome: Progressing Problem: Gastrointestinal - Adult Goal: Minimal or absence of nausea and vomiting Description: INTERVENTIONS: Outcome: Progressing Goal: Maintains or returns to baseline bowel function Description: INTERVENTIONS: Outcome: Progressing Goal: Maintains adequate nutritional intake Description: INTERVENTIONS: Outcome: Progressing Problem: Genitourinary - Adult Goal: Absence of urinary retention Description: INTERVENTIONS: Outcome: Progressing Goal: Urinary catheter remains patent Description: INTERVENTIONS: Outcome: Progressing Problem: Infection - Adult Goal: Infections are decreased or avoided Description: INTERVENTIONS: Outcome: Progressing Problem: Metabolic/Fluid and Electrolytes - Adult Goal: Electrolytes maintained within normal limits Description: INTERVENTIONS: Outcome: Progressing Goal: Hemodynamic stability and optimal renal function maintained Description: INTERVENTIONS: Outcome: Progressing Goal: Glucose maintained within prescribed range Description: INTERVENTIONS: Outcome: Progressing Problem: Hematologic - Adult Goal: Maintains hematologic stability Description: INTERVENTIONS: Outcome: Progressing Problem: Anxiety Goal: Will report anxiety at manageable levels Description: INTERVENTIONS Outcome: Progressing Problem: Decision Making Goal: Patient/Healthcare Agent able to effectively weigh alternatives and participate in decision making related to treatment and care. Description: INTERVENTIONS Outcome: Progressing PROGRAMMER * Kaitlin Bailey MD - 03/31/2024 7:18 PM CST Patient was seen and examined at bedside. No acute event in my assessment. Orders were reviewed and adjusted to fit the floor. Patient to be monitored and kept stable until the morning. Medical management to be continued by the day team. PROGRAMMER * Courtney Kern LSW - 03/31/2024 3:05 PM CST SOCIAL WORK PROGRESS NOTE Discharge Level of Care: SNF Discharge Destination: pending acceptance- [facility]- kalpana Emily -[phone] is reviewing Anticipated Mode of Transportation: ambulance Barriers to D/C: Sitter was d/c'ed this a.m. and pt will need to remain sitter free for 24 hrs prior to SNF acceptance. Comment: Family primary choice is [facility] or [facility]. Emily with [facility] is reviewing. Have left several messages for Sabi with [facility] but have not received any call backs. Pt'rip expressed that she had called [facility] and was informed that they do have a female bed available. Granddaughter also expressed that [facility]. SW will continue to follow up with SNF choices for placement. Courtney BAEZAW, BALLISTIC EXPERT [phone] PROGRAMMER * Jessica Marin, OT - 03/31/2024 1:[address] [facility] Physical Medicine and Rehabilitation Occupational Therapy Progress Note Patient: Emerald [facility] Record Number: [id number] Date of : 1935 Age: [age] year old PPE worn by staff: gloves;mask - procedural PPE worn by patient: gown - patient, clean;socks - clean Tech: Damaris assists during session Recommendations: Discharge OT Discharge Recommendations: Patient would benefit from multidisciplinary therapy This recommendation is made due to ongoing OT functional needs: address functional deficits Nurse and Physical Therapist contacted regarding patient status and/or discharge plan. Activity Level: as tolerated PRECAUTIONS: Weight Bearing Status: Lower Extremity;Upper Extremity Weight Bearing: WBAT SUBJECTIVE: Subjective: Pt agreeable to therapy. Bathroom Pain Assessment: Pain Assessment Pain Scale/Observation: (Patient without pain behaviors throughout session) OBJECTIVE: At start of therapy session, patient found in patient bedside chair and with no alarm LDA: Peripheral IV, Catheter General Appearance: 88 year old female sitting in chair, in NAD. Sitter present in room. Vitals: (*Assess the 3 levels of oxygen saturations both for room air and 02 unless rest on room air is 88% or less). Post Activity BP: -- HR: 60 Sp02 Sp02 99% Room Air Observations: Patient with increased work of breathing / wheezing following mobility. Patient's granddaughter present and reports that is typical for her after she ambulates. Sp02 WFL. 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 Bed Mobility: Supine to Sit: Activity Does Not Occur (Pt sitting in bedside chair upon entrance and exit) Sit to Supine: Activity Does Not Occur Transfers: Sit to Stand: Moderate Assistance (requires direct simple one-step commands) Stand to Sit: Minimal Assistance Toilet Transfers: Moderate Assistance (to standard toilet, requires direct simple one-step commandsfor safety) Transfer Device: Gait belt;Walker-2 Wheeled Functional Ambulation: Patient ambulated to/from bathroom with Moderate assist using 2-wheeled walker and simple one step commands for navigation and safety. Balance: Balance Scales/Tests Used: Sitting: Static/Dynamic;Standing: Static/Dynamic Sitting - Static: Fair Sitting - Dynamic: Fair Standing - Static: Fair -;With Both Upper Extremity's Support Standing - Dynamic: Poor +;Fair -;With Both Upper Extremity's Support Activities of Daily Living: Oral Facial Hygiene: Set-up (for hand hygiene while sitting upright in the chair) Toileting: Moderate Assistance (for gown management and thoroughness of hygiene at standard toilet) ACTIVITY TOLERANCE: Activity Tolerance: Requires seated rest breaks Modified Joel: Current Modified [place] Score: 4 AM-PAC 6 Clicks Daily Activity Raw Score:: 13 TREATMENT/INTERVENTIONS: ADL training Functional transfer training Safety awareness EDUCATION: While performing OT, Patient was instructed in:functional mobility training, self-care training, safety awareness/fall precautions , discharge planning, use of call light Presented to patient who demonstrates Questionable understanding of instructions given. INFORMED CONSENT TO TREATMENT: Plan of care is discussed but patient with questionable understanding. ASSESSMENT: Patient continues to benefit from skilled Occupational Therapy to achieve the following functional goals. Short Term Goals: Goal Formation With patient/family Patient will perform grooming at edge of bed and with stand by assist Patient will perform upper extremity dressing with minimal assist Patient will perform supine to/from sit with maximal assist Patient will transfer sit to stand with maximal assist Direct Care Staffer Goal(s): Patient to discharge to appropriate next level of inpatient care Plan: Patient continues to benefit from skilled therapy services., Continue with goals as established. If patient is discharged from the facility, this note serves as a discharge summary if further occupational therapy visits did not occur. Refer to filed flowsheet for further details. Following therapy session, patient left in patient bedside chair , with waffle seat cushion in place, with chair alarm on and positioned under patient's buttocks , with family in room, with RNMartha aware, with therapy cues visible on white board, all lines/tubes intact, and sitter present . PROGRAMMER * Bunny Wilkins, GONZALES-ELECTRIC MOTOR REPAIR SUPERVISOR - 03/31/2024 11:22 AM CST Images from the original note were not included. Trauma Floor Progress Note Admit Date: 03/13/2024 15 Subjective: BIBEMS after fall. Admitted to trauma ICU for management of polytrauma Injuries: SDH SAH Right temporal brain contusion Right frontoparietal scalp laceration Left frontal scalp contusion Grade II liver laceration Interval History: 03/31: No acute events overnight. Sitter present. Will order trazodone tonight. Remains out of restraints. 03/30: SAVAGE JAY, concern that patient is still not sleeping at night. Geriatrics recommend trazodone 25 mg @ HS. Continuing to work towards placement. 03/29: SAVAGE JAY, patient continues to have ongoing urinary retention requires straight cath Q 4-6 hours. Urology consult today. Plan for vasquez catheter. Will attempt void trial prior to d/c. Granddaughter states patient continues to have trouble with chewing and swallowing. Plan to downgrade patient to puree diet for now. 03/28: FRANKLIN JAY, security public safety officer present working towards SNF placement. Therapies remain ongoing. 03/27: STEPHANIE JAY. Up to chair with therapy, continues to be impulsive but alert. Encouraging PO intake. Continue therapies. 03/26: More alert, up to chair today. Continue therapies, SW for placement as able. 03/25: Patient arouses to verbal stimulation this morning, but drowsy. Up in chair this afternoon. Sitter at bedside. Seroquel stopped. Continue to encourage PO intake and will wean sitter as able. 03/24 Patient remains in lap belt this morning. Granddaughter at bedside reports patient more alert this morning. Ceftriaxone started for UTI; will switch to PO after 24-28 hours. Accuchecks changed to AC/HS and nursing instructed to cluster care, if possible so patient can rest through the night. Appreciate palliative recs. 03/23: SAVAGE JAY, pt remains w/ delirium requires waist belt restraint. Plan for updated therapy recs for dispo planning today. 03/22: SCOTT JAY, plan for updated PT/OT recs for dispo. MEDIA ASSISTANT for updated recs family able to provide patient's dentures 03/21 TTF from ICU overnight. Patient in lap belt andbilateral mittens. Will arouse to verbal stimulation, but drowsy. Encourage PO intake. Wean out of restraints 03/20: Patient extubated to MN yesterday, now stable on RA. Pt failed nursing swallow, if fails formal MEDIA ASSISTANT swallow, will need dobhoff placed. Plan to transfer to trauma floor today. 03/19: Overnight, all sedation turned off, however patient agitated and precedex restarted. AFVSS. Hgb this AM 7.7. Plan to discuss code status with family, perform SBT and possibly attempt to extubate today. 03/18: AFVSS off pressors. Required 1 unit pRBC overnight for hgb 6.8. Patient intubated PEEP 5 andFiO2 of 30. 03/17: AFVSS. NAEO. Pressors and sedation weaned down to 0. Patient remains on Peep of 5 and Fi02 of 30. Plan for SBT today. 03/16: Propofol replaced with Precedex to assist with agitation during sedation wean. Patient with hypotension to 60/30's, increased levophed from 0.03 to 1.5 max. 1L IVF given, stat labs ordered without any significant changes from previous. Trops mildly elevated, EKG with T wave inversions in anterolateral leads, troponins not increasing. Remains on low vent settings. Unchanged neuro exam. Planto continue current management, wean sedation and pressors as able. 03/15: VBG drawn following SBT (PSV 10/5, RR 14) likely lab error however pt placed back on volume control with improvement. Arterial line placed overnight for BP monitoring as pt intermittently hypotensive, requiring titration of levophed and IVF boluses. Per NSGY, repeat CTH without any new changes/concerns, no further neurosurgical intervention. Plan to pause sedation and trial SBT. Discussed possibility of re-intubation with family, family okay with intubation at this time, still DNR. 03/14: ENT/Face consulted for repair of complex scalp laceration. Will follow up CTA and Neurosurgery recommendations. Patient started on Levophed for MAP's 50's. Remains intubated, sedated with fentanyl and propofol, will wean as able. 03/13: Presented by air as level 1 trauma. Admitted to ICU int ubated/sedated with SDH, SAH. Neurosurgery consulted and CTA to be completed. 0.9% NaCl, 3 mL, q8h aspirin, 81 mg, QDAY atorvastatin, 20 mg, AT BEDTIME carvedilol, 25 mg, BID WC enoxaparin, 30 mg, q12h lansoprazole (disintegrating), 15 mg, QDAY BEFORE BREAKFAST losartan, 50 mg, QDAY melatonin, 3 mg, AT BEDTIME petrolatum white, , TID polyethylene glycol 3350, 17 g, QDAY tamsulosin, 0.4 mg, QDAY traZODone, 25 mg, AT BEDTIME 0.9% NaCl, 1-10 mL, PRN acetaminophen, 650 mg, q4h PRN dextrose IV for hypoglycemia, 12.5 g, PRN Or dextrose IV for hypoglycemia, 25 g, PRN Or glucagon, 1 mg, PRN glucose (Diabetic Use) gel, , PRN labetalol, 5 mg, q4h PRN Or hydrALAZINE, 5 mg, q4h PRN Review of Systems Respiratory: Negative Cardiovascular: Negative Objective: Patient Vitals for the past 8 hrs: BP Temp Temp src Pulse Resp SpO2 03/31/24 0812 131/72 97.8 ??F (36.6 ??C) Oral 81 16 95 % Temp (24hrs), Av.8 ??F (36.6 ??C), Min:97.7 ??F (36.5 ??C), Max:97.9 ??F (36.6 ??C) Intake/Output Summary (Last 24 hours) at 03/31/2024 1122 Last data filed at 03/31/2024 1051 Gross per 24 hour Intake 600 ml Output 1100 ml Net -500 ml Diet: puree Last BM: 03/28 Activity: ad osvaldo WB Limitation: WBAT General Appearance: alert, well appearing, and in no distress sitting in chair with activity belt Lungs: Normal repiratory effort without retractions, Clear to auscultation bilaterally, and on roomair Heart: RRR Abdomen: soft non tender non distended active bowel sounds Neuro: Sensation intact to touch in all extremities and GCS 14, alert to self Follows commands Extremities: WWP +2 pulses, motor and sensation intact Data Review: CBC: Recent Labs Component Name 03/25/24 1032 03/23/24 1304 03/23/24 0215 WBC 9.1 11.4* 10.5 HGB 9.6* 8.5* 8.5* HCT 30.9* 26.8* 26.9* Electrolytes: Recent Labs Component Name 03/25/24 1032 03/22/24 0656 03/21/24 0212 POTASSIUM 4.3 4.4 4.2 CO2 26 22 28 BUN 18 16 16 CREATININE 0.71 0.88 0.99* GLUCOSE 101* 62* 150* CALCIUM 8.7 8.8 8.1* Coags: Recent Labs Component Name 03/13/24 2209 03/11/24 1435 INR 1.1 1.0 PTT 23.3 - Assessment/Plan: Neuro: mall tentorial SDH Bilateral sylvian SAH - NSGY consult, no acute interventions - ok for DVT prophylaxis - 03/23 restart ASA - no f/u needed TBI AMS - Monet consult high risk for delirium 2/2 head trauma, limited mobility, disrupted sleep/wake cycle, pain, UTI - Stop Seroquel 2/2 sedative effect, - Sleep hygiene - Abx for UTI - trazodone at night acute posttraumatic pain - continue multimodal analgesia regimen Dementia, chronic Depression, chronic -MONET consulted - hold home Prozac, - stopped Seroquel due to sedation - avoid IV haldol HEENT: R forehead laceration - ENT consulted, lace repaired with 5-0 fast gut - vaseline PRN now - ENT completed follow up 03/31 Respiratory: 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 - no acute intervention Cardiovascular: CAD with descending aortic murla thrombus/ulcer HTN, chronic HLD, chronic - 03/13 d/c from CCU f/u with cardiology outpatient w/ repeat imaging to monitor ulcer - 03/17 TTE w/ EF 65-70 - 03/15 EKG w/ SR w SVC - continue statin -Monitor VS q4 - continue losartan and carvedilol - f/u vascular outpatient - increase losartan 03/31 - vitals q 4 hours GI: Dysphagia: MEDIA ASSISTANT following On pureed diet per patient preference, can have minced and moist diet with thin liquids Grade II liver injury - managed non-op IVF: Saline locked GERD: chornic, continue PPI daily SUP: N/A BM 03/28 Endocrine: Stopped daily labs Renal: Urinary retention - flomax - URO consulted - maintain vasquez to gravity draiange - can re-attempt void trial closer to discharge at this time. Hematology: Acute blood loss anemia,, HGB stable, due to forehead laceration. - transfusion history: - 03/18 1 unit PRBC - stopped daily labs 03/25 - f/u with PCP Infectious Disease: UTI - 03/28 UA negative - 03/23UA + +3 LE, + nitrites, > 100 WBC, + 1 bacteria - 03/14 UA negative WBC 9.1; remains afebrile No results found for: CULTURE - abx: - 03/24-8 Ceftriaxone - 03/13 Ancef - CBC PRN - cedillo culture and skin check for fevers >101.5 Musculoskeletal: Impaired ADLS Due to TBI - PT/OT recommend SNF Skin: see HEENT above Lines: PIV PT/OT/ST: recommend SNF SW: for referrals, assisting with Memory care with family DVT & GI: LVX, lansoprazole Barrier to discharge: Social work assisting with placement Bunny Wilkins APRN-ELECTRIC MOTOR REPAIR SUPERVISOR 03/31/2024 11:22 AM PROGRAMMER Associated attestation - Thad Bravo MD - 03/31/2024 10:59 PM VBA PROGRAMMER Patient seen and examined with the residents. Please see note for further details. Patient's lab values and radiology images noted in this report were personally reviewed by me with my interpretations as below, unless otherwise indicated. I confirm history, exam, assessment and plan, except where it may differ from my own as stated below. Thad Bravo MD * KumarCarlos, ROBOTICS TESTING TECHNICIAN-ELECTRIC MOTOR REPAIR SUPERVISOR - 03/31/2024 11:16 AM CST GERIATRIC MEDICINE FOLLOW UP NOTE 03/31/2024 11:16 AM Reason for Consult: Delirium Consulting Physician and Team: Trauma Acute Events: Sitter at bedside Patient up in chair and ate breakfast this morning Mental status seems better today Subjective: Denied pain Breathing okay Comprehensive Geriatric Assessment: CONFUSION ASSESSMENT METHOD 1) Acute onset or fluctuating course: yes 2) Inattention: yes 3) Disorganized thinking: yes 4) Altered Level of Consciousness:yes Level of Consciousness: awake and alert this morning Delirium is suggested if criteria #1 & #2 are positive PLUS criteria #3 OR #4 Is deliirum suggested: yes Current Meds: 0.9% NaCl 3 mL Intracatheter q8h aspirin 81 mg Oral QDAY atorvastatin 20 mg Oral AT BEDTIME carvedilol 25 mg Oral BID WC enoxaparin 30 mg Subcutaneous q12h lansoprazole (disintegrating) 15 mg Oral QDAY BEFORE BREAKFAST losartan 50 mg Oral QDAY melatonin 3 mg Oral AT BEDTIME petrolatum white Topical TID polyethylene glycol 3350 17 g Oral QDAY tamsulosin 0.4 mg Oral QDAY traZODone 25 mg Oral AT BEDTIME OBJECTIVE Vitals: Patient Vitals for the past 6 hrs: Temp Pulse Resp BP BP Method 03/31/24 0812 97.8 ??F (36.6 ??C) 81 16 131/72 Automatic Intake/Output Summary (Last 24 hours) at 03/31/2024 1116 Last data filed at 03/31/2024 1051 Gross per 24 hour Intake 600 ml Output 1100 ml Net -500 ml Weight: Wt Readings from Last 2 Encounters: 03/19/24 87.8 kg (193 lb 9.6 oz) 03/12/24 65.1 kg (143 lb 8.3 oz) Physical Exam: General: NAD, pleasant frail appearing elderly woman HEENT: EOMI. PERRL Neck: No cervical lymphadenopathy Pulm: CTA-B. Cardio: RRR, S1S2 normal. No MRG Abdomen: Soft, NT, ND. BS x 4 normoactive Extremity: No edema Neuro: Awake and alert Skin: Warm and dry Labs: CBC: Recent Labs Component Name 03/25/24 1032 03/23/24 1304 03/23/24 0215 WBC 9.1 11.4* 10.5 HGB 9.6* 8.5* 8.5* BMP: Recent Labs Component Name 03/25/24 1032 03/22/24 0656 03/21/24 0212 NA 143 143 136 CL 106 104 102 CO2 26 22 28 BUN 18 16 16 CREATININE 0.71 0.88 0.99* Recent Labs Component Name 03/25/24 1032 03/22/24 0656 03/21/24 0212 03/20/24 0029 CALCIUM 8.7 8.8 8.1* 8.6 PHOS 3.2 - 3.0 2.9 LFT: Recent Labs Component Name 03/15/24 1626 03/13/24 2209 03/13/24 0936 03/12/24 0330 03/11/24 1435 PROT 4.4* 5.4* - - 6.0 ALB 2.1* 2.8* 2.8* - 3.0* ALKPHOS 44 57 - - 63 AST 12 16 - - 12 ALT 8 9 - - 8 - = values in this interval not displayed. Coagulation: Recent Labs Component Name 03/13/24220803/11/24 1435 PT 13.9 12.9 INR 1.1 1.0 Cardiac markers: Recent Labs Component Name 03/15/24 1626 03/11/24 1435 BNP 50 189* Microbiology: Latest Reference Range & Units 03/23/24 18:27 Color UA Straw, Yellow Ramya ! Clarity UA Clear Cloudy ! Specific Bigelow UA 1.005 - 1.030 1.023 pH UA 5.0 - 8.0 pH 6.0 Protein UA Negative 1+ ! Blood UA Negative 1+ ! Ketone UA Negative Negative Leukocyte Esterase Negative 3+ ! Nitrite UA Negative Positive ! Glucose UA Negative Negative Bilirubin UA Negative Negative Urobilinogen UA Negative mg/dL 2.0 ! WBC UA None Seen, 0-5 /HPF >100 ! RBC UA None Seen, 0-2, 3-5 /HPF 6-10 ! Squamous Epithelial Cells UA None Seen, 0-2, 3-5 /HPF 0-2 Bacteria Urine None /HPF 1+ ! !: Data is abnormal Imaging: CXR Normal cardiomediastinal silhouette. Atherosclerotic aorta. No focal consolidation, pleural effusion, or pneumothorax. ASSESSMENT & RECOMMENDATIONS Insomnia -Days and nights currently backwards. Per grand daughter did not sleep this weekend. Has been sleeping most of day today -Recommend to start Trazodone 25mg at hs. Would make it prn Delirium -Fluctuating mental status. High risk given head trauma, limited mobility, disturbed sleep/wake cycle, pain, urinary retention -Recommend to focus on simple interventions. Keeping her active/awake during the day, blinds up. Avoid nocturnal disturbances. Up in chair -Activity apron during the day -Continue to focus on non pharmacological approach with mobilization and redirection for fluctuating mental status. OVerall much better today with this approach. -No restraints. Sitter at bedside if needed at night. Family present during the day. Delirium Recommendations: Delirium is a morbid condition, associated with mortality. It's preventable. - daily CAM assessment - minimize tethers (eg re-assess need for Vasquez daily) - Miralax for prevention of constipation if on opioids - early mobilization - Avoid sedative hypnotics/anticholniergics. Avoid narcotics - Ensure adequate pain control. - Address sensory deficits. Vision and hearing - Provide orienting stimuli: Clock, calendar, minimal staff changes, light during the day, dark at night - please place the following orders in a nursing communication: up in chair with meals TID if activity orders allow blinds up and lights on in the AM. daily family visits Minimize nocturnal disturbances. Avoid unnecessary labs, VS, medications at night. Promote regular sleep/wake cycle Optimize nutritional status. Ensure supplements TID between meals if needed Urinary Retention -Now has a vasquez. Urology following -Flomax 0.4mg daily Monitor electrolytes QD, Replace K<4, Mg<2, Phos<3 Reviewed today's VS No labs today Thank you for this consult. Please call with questions. Geriatrics will continue to follow along with you. I have spent total 30 minutes caring for this patient, reviewing available labs, medications, coordinating care with staff (Krishan with trauma). Carlos Heath, MARIAN-BC, Geriatrics 03/31/2024 11:16 AM Pager: [phone] PROGRAMMER * Martha Cosme RN - 03/31/2024 9:00 AM CST Problem: Safety related to restraint use Goal: Absence of injury while restrained Outcome: Progressing Problem: Skin Integrity Goal: Skin integrity is maintained or improved Outcome: Progressing Problem: Impaired Gas Exchange Goal: Resp rate/effort will be within specified limits Outcome: Progressing Problem: Mobility Goal: Patient's mobility/activity will be maintained as optimum level for age, diagnosis and physical limitations Outcome: Progressing Goal: Continuum of care needs are further met through referral to outpatient services when appropriate. Outcome: Progressing Goal: Patient reports the ability to perform Activities of Daily Living. Outcome: Progressing Problem: Fall Risk Goal: Fall risk and fall related injury risk are minimized (interventions related to the fall risk can be found in the flowsheet documentation) Outcome: Progressing Problem: Pain/Discomfort Goal: Patient exhibits reduced pain/discomfort as evidenced by pain scores Outcome: Progressing Goal: Patient uses pharmacological and non-pharmacological pain management strategies. Outcome: Progressing Goal: Patient verbalizes acceptable level of pain relief and ability to engage in desired activity. Outcome: Progressing Problem: Potential for Urinary Catheter-Associated Infection Goal: Signs and Symptoms of urinary catheter-associated infection are avoided Outcome: Progressing Goal: Normal urinary patterns are established within parameters of age and disease process Outcome: Progressing Problem: Risk for Violence: Self-Directed or Other Directed Description: Diagnosis: Risk for self-directed Violence or Risk for Directed Violence Risk Factors: Biochemical/neurologic imbalances, impulsivity, manic excitement, psychotic symptomatology, rage reaction, restlessness Possibly Evidenced By: agitated behaviors, delusional thinking, hallucinations, loud/threatening/profane speech, poor impulse control, provocative behaviors, verbal threats against others, verbal threats against self Goal: Patient will verbalize control of feelings. Outcome: Progressing Goal: Patient will respond to interventions when potential or actual loss of control occurs. Outcome: Progressing Goal: Patient will refrain from provoking others to physical harm. Outcome: Progressing Goal: Patient will display nonviolent behaviors toward others in the hospital, with the aid of medications and nursing interventions. Outcome: Progressing Goal: Patient will seek help when experiencing aggressive impulses. Outcome: Progressing Goal: Patient will refrain from verbal threats and loud, profrane language toward others. Outcome: Progressing Goal: Patient will be safe and free from injury. Outcome: Progressing Problem: Transfers Goal: STG - Patient to transfer to and from sit to supine Outcome: Progressing Problem: Swallowing Goal: LTG - Patient will tolerate the least restrictive diet consistency to allow for safe consumption of daily meals Outcome: Progressing Goal: STG - Patient will tolerate recommended food and liquid consistencies without clinical signs and symptoms of aspiration Outcome: Progressing Problem: Restraint Safety Goal: Free from restraint(s) Description: INTERVENTIONS: Outcome: Progressing Goal: Remains free of injury from restraints Description: INTERVENTIONS: Outcome: Progressing Problem: Skin/Tissue Integrity - Adult Goal: Skin integrity remains intact Description: INTERVENTIONS: Outcome: Progressing Goal: Incisions, wounds, or drain sites healing without S/S of infection Description: INFECTIONS: Outcome: Progressing Goal: Oral mucous membranes remain intact Description: INTERVENTIONS: Outcome: Progressing Problem: Musculoskeletal - Adult Goal: Return mobility to safest level of function Description: INTERVENTIONS: Outcome: Progressing Goal: Maintain proper alignment of affected body part Description: INTERVENTIONS: Outcome: Progressing Goal: Return ADL status to a safe level of function Description: INTERVENTIONS: Outcome: Progressing Problem: Neurosensory - Adult Goal: Achieves stable or improved neurological status Description: INTERVENTIONS Outcome: Progressing Goal: Remains free of injury related to seizures activity Description: INTERVENTIONS: Outcome: Progressing Goal: Achieves maximal functionality and self care Description: INTERVENTIONS: Outcome: Progressing Problem: Respiratory - Adult Goal: Achieves optimal ventilation and oxygenation Description: INTERVENTIONS: Outcome: Progressing Problem: Cardiovascular - Adult Goal: Maintains optimal cardiac output and hemodynamic stability Description: INTERVENTIONS: Outcome: Progressing Goal: Absence of cardiac dysrhythmias or at baseline Description: INTERVENTIONS: Outcome: Progressing Problem: Gastrointestinal - Adult Goal: Minimal or absence of nausea and vomiting Description: INTERVENTIONS: Outcome: Progressing Goal: Maintains or returns to baseline bowel function Description: INTERVENTIONS: Outcome: Progressing Goal: Maintains adequate nutritional intake Description: INTERVENTIONS: Outcome: Progressing Problem: Genitourinary - Adult Goal: Absence of urinary retention Description: INTERVENTIONS: Outcome: Progressing Goal: Urinary catheter remains patent Description: INTERVENTIONS: Outcome: Progressing Problem: Infection - Adult Goal: Infections are decreased or avoided Description: INTERVENTIONS: Outcome: Progressing Problem: Metabolic/Fluid and Electrolytes - Adult Goal: Electrolytes maintained within normal limits Description: INTERVENTIONS: Outcome: Progressing Goal: Hemodynamic stability and optimal renal function maintained Description: INTERVENTIONS: Outcome: Progressing Goal: Glucose maintained within prescribed range Description: INTERVENTIONS: Outcome: Progressing Problem: Hematologic - Adult Goal: Maintains hematologic stability Description: INTERVENTIONS: Outcome: Progressing Problem: Coping Goal: Patient/Healthcare Agent able to verbalize concerns and demonstrate effective coping strategies Description: INTERVENTIONS Outcome: Progressing Problem: Behavior Goal: Pt/Family maintain appropriate behavior and adhere to behavioral management agreement, if implemented Description: INTERVENTIONS Outcome: Progressing Problem: Anxiety Goal: Will report anxiety at manageable levels Description: INTERVENTIONS Outcome: Progressing Problem: Decision Making Goal: Patient/Healthcare Agent able to effectively weigh alternatives and participate in decision making related to treatment and care. Description: INTERVENTIONS Outcome: Progressing PROGRAMMER * Ran Mohamud MD - 03/30/2024 5:34 PM CST Images from the original note were not included. Otolaryngology-Head and Neck Surgery Plan of Care PATIENT INFORMATION Emerald Villafana 88 year old female Today's Date: 03/30/2024 Patient seen for wound check after laceration repair performed 03/14/24. Laceration healing well with some crusting. Defect hides well in hairline. - Vaseline to wound TID x 2 weeks. - Follow up with ENT as needed. Please page ENT with any questions or concerns. Ran Mohamud MD 03/30/2024 5:34 PM PROGRAMMER * Courtney Ortiz RN - 03/30/2024 3:20 PM CST Care Coordination Progress Note Expected Discharge Date: 04/02/2024 Discharge Plan: Urinary retention, diet downgraded to Pureed due to increased issues with swallowing, still has sitter. SW following for SNF referrals when appropriate. Family Support (Name and Phone): Extended Emergency Contact Information Primary Emergency Contact: Meri Henderson) Mobile Relation: Daughter Preferred language: Icelandic V Belt Curer needed? No Secondary Emergency Contact: shay washington Mobile Relation: Daughter Guardian: MERI HENDERSON Mobile Relation: Daughter Transportation at Discharge: Family: READMISSION RISK SCORE is 16 at 3:21 PM 03/30/2024.: Name: Courtney Ortiz RN PROGRAMMER * Jillian Ramos, PT - 03/30/2024 2:[address] [facility] Physical Medicine and Rehabilitation Physical Therapy Progress Note Patient: Emerald Villafana [facility] Record Number: [id number] Date of : 1935 Age: [age] year old Tech: Krystle for chair follow Recommendations: Discharge PT Discharge Recommendations: Patient would benefit from multidisciplinary therapy This recommendation is made due to ongoing PT functional needs: address functional deficits SUBJECTIVE: Patient answered to her name and began to move to stand with verbal and tactile prompts. Pain Assessment: Pain Assessment Pain Scale/Observation: Behavioral Pain Atgzg-[id number]-[id number] Pain Rating Score #1: 0 PRECAUTIONS: Activity Level: Activity as Tolerated OBJECTIVE: At start of therapy session, patient found in bedside chair with family present. General Appearance: NAD Mental Status/Cognition: Orientation Level: (answers to name, I don't know when asked her last name; able to follow commands and participate) Cognition: Confused;Poor attention or concentration;Acute Memory Loss Mobility: A gait belt and non-slip socks were used for all out of bed activity this date. Bed Mobility: Supine to Sit: Activity Does Not Occur (Pt sitting in bedside chair upon entrance and exit) Sit to Supine: Activity Does Not Occur Transfers: Sit to Stand: Moderate Assistance Stand to Sit: Minimal Assistance;Moderate Assistance Transfer Device: Gait belt;Walker-2 Wheeled Gait: Distance Ambulated (ft): 30 FEET Ambulation: Assistive Device: Walker-2 Wheeled;Gait Belt (close chair follow) Ambulation: Level of Assistance: Moderate Assistance (max safety cues) Ambulation: Gait Deviations: Increased Trunk Flexion;Lauryn - Decreased;Step Length - Decreased;Base of Support - Decreased Balance: Balance Scales/Tests Used: Sitting: Static/Dynamic;Standing: Static/Dynamic Sitting - Static: Fair Sitting - Dynamic: Fair - Standing - Static: Fair -;With Both Upper Extremity's Support Standing - Dynamic: Poor +;With Both Upper Extremity's Support ACTIVITY TOLERANCE: Patient's activity tolerance: mildly wheezing after ambulation, but O2 sats 94% on room air TREATMENT/INTERVENTIONS: transfer training, gait training, standing balance, cognitive retraining, AROM B LE in sitting Modified [place]: Current Modified [place] Score: 4 AM-PAC 6 Clicks Mobility Raw Score:: 12 EDUCATION: Patient not appropriate for education at this time secondary to mental status. ASSESSMENT: Patient would benefit from additional Physical Therapy sessions to achieve the following functionalgoals to enhance independence. Short Term Goals: Goal Formation With patient Patient will perform bed mobility with moderate assist of 1 (Upgrade 03/26) Patient will transfer sit to/from stand with minimal assist and of 1 (Upgrade 03/30) Patient will demonstrate sitting balance of Fair minus x 5 minutes Patient to ambulate 50 ft with moderate assist of 1. (Upgrade 03/30) Shelter Goal(s): Patient to discharge to appropriate next level of inpatient care. INFORMED CONSENT TO TREATMENT: Plan of care not given secondary to cognitive impairment Equipment Issued: none Plan: Patient continues to benefit from skilled therapy services. Goals upgraded again today for further progression. If patient is discharged from the facility, this note serves as a discharge summary if further physical therapy visits did not occur. Refer to filed flowsheet for further details. Family and MD's were in conversation in room for an extended period of time. Therefore, pharmacy customer care specialist, stayed with patient in recliner chair outside of room. PROGRAMMER * Carlos Heath, ROBOTICS TESTING TECHNICIAN-ELECTRIC MOTOR REPAIR SUPERVISOR - 03/30/2024 1:47 PM CST GERIATRIC MEDICINE FOLLOW UP NOTE 03/30/2024 1:48 PM Reason for Consult: Delirium Consulting Physician and Team: Trauma Acute Events: Grand daughter Ada at bedside this afternoon Mental status up and down Did not sleep over the weekend Vasquez placed due to retention Up to chair Ate a little lunch Bowels moved yesterday Subjective: Denied pain Breathing okay Comprehensive Geriatric Assessment: CONFUSION ASSESSMENT METHOD 1) Acute onset or fluctuating course: yes 2) Inattention: yes 3) Disorganized thinking: yes 4) Altered Level of Consciousness:yes Level of Consciousness: initially drowsy but awakened when to chair Delirium is suggested if criteria #1 & #2 are positive PLUS criteria #3 OR #4 Is deliirum suggested: yes Current Meds: 0.9% NaCl 3 mL Intracatheter q8h aspirin 81 mg Oral QDAY atorvastatin 20 mg Oral AT BEDTIME carvedilol 25 mg Oral BID WC enoxaparin 30 mg Subcutaneous q12h lansoprazole (disintegrating) 15 mg Oral QDAY BEFORE BREAKFAST losartan 25 mg Oral QDAY melatonin 3 mg Oral AT BEDTIME polyethylene glycol 3350 17 g Oral QDAY senna 8.6 mg Oral QDAY tamsulosin 0.4 mg Oral QDAY OBJECTIVE Vitals: Patient Vitals for the past 6 hrs: Temp Pulse Resp BP BP Method 03/30/24 0811 97.3 ??F (36.3 ??C) 81 20 153/72 Automatic Intake/Output Summary (Last 24 hours) at 03/30/2024 1348 Last data filed at 03/30/2024 0856 Gross per 24 hour Intake 790 ml Output 400 ml Net 390 ml Weight: Wt Readings from Last 2 Encounters: 03/19/24 87.8 kg (193 lb 9.6 oz) 03/12/24 65.1 kg (143 lb 8.3 oz) Physical Exam: General: NAD, pleasant frail appearing elderly woman HEENT: EOMI. PERRL Neck: No cervical lymphadenopathy Pulm: CTA-B. Cardio: RRR, S1S2 normal. No MRG Abdomen: Soft, NT, ND. BS x 4 normoactive Extremity: No edema Neuro: Sleepy. Following commands. Skin: Warm and dry Labs: CBC: Recent Labs Component Name 03/25/24 1032 03/23/24 1304 03/23/24 0215 WBC 9.1 11.4* 10.5 HGB 9.6* 8.5* 8.5* BMP: Recent Labs Component Name 03/25/24 1032 03/22/24 0656 03/21/24 0212 NA 143 143 136 CL 106 104 102 CO2 26 22 28 BUN 18 16 16 CREATININE 0.71 0.88 0.99* Recent Labs Component Name 03/25/24 1032 03/22/24 0656 03/21/24 0212 03/20/24 0029 CALCIUM 8.7 8.8 8.1* 8.6 PHOS 3.2 - 3.0 2.9 LFT: Recent Labs Component Name 03/15/24 1626 03/13/24 2209 03/13/24 0936 03/12/24 0330 03/11/24 1435 PROT 4.4* 5.4* - - 6.0 ALB 2.1* 2.8* 2.8* - 3.0* ALKPHOS 44 57 - - 63 AST 12 16 - - 12 ALT 8 9 - - 8 - = values in this interval not displayed. Coagulation: Recent Labs Component Name 03/13/24220803/11/24 1435 PT 13.9 12.9 INR 1.1 1.0 Cardiac markers: Recent Labs Component Name 03/15/24 1626 03/11/24 1435 BNP 50 189* Microbiology: Latest Reference Range & Units 03/23/24 18:27 Color UA Straw, Yellow Ramya ! Clarity UA Clear Cloudy ! Specific Bigelow UA 1.005 - 1.030 1.023 pH UA 5.0 - 8.0 pH 6.0 Protein UA Negative 1+ ! Blood UA Negative 1+ ! Ketone UA Negative Negative Leukocyte Esterase Negative 3+ ! Nitrite UA Negative Positive ! Glucose UA Negative Negative Bilirubin UA Negative Negative Urobilinogen UA Negative mg/dL 2.0 ! WBC UA None Seen, 0-5 /HPF >100 ! RBC UA None Seen, 0-2, 3-5 /HPF 6-10 ! Squamous Epithelial Cells UA None Seen, 0-2, 3-5 /HPF 0-2 Bacteria Urine None /HPF 1+ ! !: Data is abnormal Imaging: CXR Normal cardiomediastinal silhouette. Atherosclerotic aorta. No focal consolidation, pleural effusion, or pneumothorax. ASSESSMENT & RECOMMENDATIONS Insomnia -Days and nights currently backwards. Per grand daughter did not sleep this weekend. Has been sleeping most of day today -Recommend to start Trazodone 25mg at hs Delirium -Fluctuating mental status. High risk given head trauma, limited mobility, disturbed sleep/wake cycle, pain, urinary retention -Recommend to focus on simple interventions. Keeping her active/awake during the day, blinds up. Avoid nocturnal disturbances. Up in chair -Activity apron during the day -Continue to focus on non pharmacological approach with mobilization and redirection for fluctuating mental status. OVerall much better today with this approach. -No restraints. Sitter at bedside if needed at night. Family present during the day. Delirium Recommendations: Delirium is a morbid condition, associated with mortality. It's preventable. - daily CAM assessment - minimize tethers (eg re-assess need for Vasquez daily) - Miralax for prevention of constipation if on opioids - early mobilization - Avoid sedative hypnotics/anticholniergics. Avoid narcotics - Ensure adequate pain control. - Address sensory deficits. Vision and hearing - Provide orienting stimuli: Clock, calendar, minimal staff changes, light during the day, dark at night - please place the following orders in a nursing communication: up in chair with meals TID if activity orders allow blinds up and lights on in the AM. daily family visits Minimize nocturnal disturbances. Avoid unnecessary labs, VS, medications at night. Promote regular sleep/wake cycle Optimize nutritional status. Ensure supplements TID between meals if needed Urinary Retention -Now has a vasquez. Urology following -Flomax 0.4mg daily Monitor electrolytes QD, Replace K<4, Mg<2, Phos<3 Reviewed today's VS No labs today Thank you for this consult. Please call with questions. Geriatrics will continue to follow along with you. I have spent total 30 minutes caring for this patient, reviewing available labs, medications, coordinating care with staff (Dian with trauma) , and discussing patient with family (Grand daughter Ada at bedside). I discussed with Ada that I believe her grandmother is SNF ready once accepted. Patient discussed with attending, Dr. Negro Heath, ANP-, Geriatrics 03/30/2024 1:48 PM Pager: [phone] Electronically signed by Carlos Heath, ROBOTICS TESTING TECHNICIAN-ELECTRIC MOTOR REPAIR SUPERVISOR at 03/30/2024 1:56 PM VBA PROGRAMMER * Martha Cosme RN - 03/30/2024 10:05 AM CST Problem: Safety related to restraint use Goal: Absence of injury while restrained Outcome: Progressing Problem: Skin Integrity Goal: Skin integrity is maintained or improved Outcome: Progressing Problem: Impaired Gas Exchange Goal: Resp rate/effort will be within specified limits Outcome: Progressing Problem: Mobility Goal: Patient's mobility/activity will be maintained as optimum level for age, diagnosis and physical limitations Outcome: Progressing Goal: Continuum of care needs are further met through referral to outpatient services when appropriate. Outcome: Progressing Goal: Patient reports the ability to perform Activities of Daily Living. Outcome: Progressing Problem: Fall Risk Goal: Fall risk and fall related injury risk are minimized (interventions related to the fall risk can be found in the flowsheet documentation) Outcome: Progressing Problem: Pain/Discomfort Goal: Patient exhibits reduced pain/discomfort as evidenced by pain scores Outcome: Progressing Goal: Patient uses pharmacological and non-pharmacological pain management strategies. Outcome: Progressing Goal: Patient verbalizes acceptable level of pain relief and ability to engage in desired activity. Outcome: Progressing Problem: Potential for Urinary Catheter-Associated Infection Goal: Signs and Symptoms of urinary catheter-associated infection are avoided Outcome: Progressing Goal: Normal urinary patterns are established within parameters of age and disease process Outcome: Progressing Problem: Risk for Violence: Self-Directed or Other Directed Description: Diagnosis: Risk for self-directed Violence or Risk for Directed Violence Risk Factors: Biochemical/neurologic imbalances, impulsivity, manic excitement, psychotic symptomatology, rage reaction, restlessness Possibly Evidenced By: agitated behaviors, delusional thinking, hallucinations, loud/threatening/profane speech, poor impulse control, provocative behaviors, verbal threats against others, verbal threats against self Goal: Patient will verbalize control of feelings. Outcome: Progressing Goal: Patient will respond to interventions when potential or actual loss of control occurs. Outcome: Progressing Goal: Patient will refrain from provoking others to physical harm. Outcome: Progressing Goal: Patient will display nonviolent behaviors toward others in the hospital, with the aid of medications and nursing interventions. Outcome: Progressing Goal: Patient will seek help when experiencing aggressive impulses. Outcome: Progressing Goal: Patient will refrain from verbal threats and loud, profrane language toward others. Outcome: Progressing Goal: Patient will be safe and free from injury. Outcome: Progressing Problem: Transfers Goal: STG - Patient to transfer to and from sit to supine Outcome: Progressing Problem: Swallowing Goal: LTG - Patient will tolerate the least restrictive diet consistency to allow for safe consumption of daily meals Outcome: Progressing Goal: STG - Patient will tolerate recommended food and liquid consistencies without clinical signs and symptoms of aspiration Outcome: Progressing Problem: Restraint Safety Goal: Free from restraint(s) Description: INTERVENTIONS: Outcome: Progressing Goal: Remains free of injury from restraints Description: INTERVENTIONS: Outcome: Progressing Problem: Skin/Tissue Integrity - Adult Goal: Skin integrity remains intact Description: INTERVENTIONS: Outcome: Progressing Goal: Incisions, wounds, or drain sites healing without S/S of infection Description: INFECTIONS: Outcome: Progressing Goal: Oral mucous membranes remain intact Description: INTERVENTIONS: Outcome: Progressing Problem: Neurosensory - Adult Goal: Achieves stable or improved neurological status Description: INTERVENTIONS Outcome: Progressing Goal: Remains free of injury related to seizures activity Description: INTERVENTIONS: Outcome: Progressing Goal: Achieves maximal functionality and self care Description: INTERVENTIONS: Outcome: Progressing Problem: Musculoskeletal - Adult Goal: Return mobility to safest level of function Description: INTERVENTIONS: Outcome: Progressing Goal: Maintain proper alignment of affected body part Description: INTERVENTIONS: Outcome: Progressing Goal: Return ADL status to a safe level of function Description: INTERVENTIONS: Outcome: Progressing Problem: Respiratory - Adult Goal: Achieves optimal ventilation and oxygenation Description: INTERVENTIONS: Outcome: Progressing Problem: Cardiovascular - Adult Goal: Maintains optimal cardiac output and hemodynamic stability Description: INTERVENTIONS: Outcome: Progressing Goal: Absence of cardiac dysrhythmias or at baseline Description: INTERVENTIONS: Outcome: Progressing Problem: Gastrointestinal - Adult Goal: Minimal or absence of nausea and vomiting Description: INTERVENTIONS: Outcome: Progressing Goal: Maintains or returns to baseline bowel function Description: INTERVENTIONS: Outcome: Progressing Goal: Maintains adequate nutritional intake Description: INTERVENTIONS: Outcome: Progressing Problem: Genitourinary - Adult Goal: Absence of urinary retention Description: INTERVENTIONS: Outcome: Progressing Goal: Urinary catheter remains patent Description: INTERVENTIONS: Outcome: Progressing Problem: Infection - Adult Goal: Infections are decreased or avoided Description: INTERVENTIONS: Outcome: Progressing Problem: Metabolic/Fluid and Electrolytes - Adult Goal: Electrolytes maintained within normal limits Description: INTERVENTIONS: Outcome: Progressing Goal: Hemodynamic stability and optimal renal function maintained Description: INTERVENTIONS: Outcome: Progressing Goal: Glucose maintained within prescribed range Description: INTERVENTIONS: Outcome: Progressing Problem: Hematologic - Adult Goal: Maintains hematologic stability Description: INTERVENTIONS: Outcome: Progressing Problem: Coping Goal: Patient/Healthcare Agent able to verbalize concerns and demonstrate effective coping strategies Description: INTERVENTIONS Outcome: Progressing Problem: Behavior Goal: Pt/Family maintain appropriate behavior and adhere to behavioral management agreement, if implemented Description: INTERVENTIONS Outcome: Progressing Problem: Anxiety Goal: Will report anxiety at manageable levels Description: INTERVENTIONS Outcome: Progressing Problem: Decision Making Goal: Patient/Healthcare Agent able to effectively weigh alternatives and participate in decision making related to treatment and care. Description: INTERVENTIONS Outcome: Progressing PROGRAMMER * Dian Valera, ROBOTICS TESTING TECHNICIAN-ELECTRIC MOTOR REPAIR SUPERVISOR - 03/30/2024 7:18 AM CST Admit Date: 03/13/2024 Hospital day 17 Subjective: Patient out of bed, ambulating w/ therapy. Family present at bedside HPI: 88yo F RHINA after fall. Admitted to trauma ICU for management of polytrauma Injuries: - SDH (left, 7mm) - SAH - Hemorrhagic contusion (right temporal) - Right frontoparietal scalp laceration - Left frontal scalp contusion - ?grade II liver injury Interval History: 03/30: SAVAGE JAY, concern that patient is still not sleeping at night. Geriatrics recommend trazodone 25 mg @ HS. Continuing to work towards placement. 03/29: SAVAGE JAY, patient continues to have ongoing urinary retention requires straight cath Q 4-6 hours. Urology consult today. Plan for vasquez catheter. Will attempt void trial prior to d/c. Granddaughter states patient continues to have trouble with chewing and swallowing. Plan to downgrade patient to puree diet for now. 03/28: FRANKLIN JAY, security public safety officer present working towards SNF placement. Therapies remain ongoing. 03/27: STEPHANIE JAY. Up to chair with therapy, continues to be impulsive but alert. Encouraging PO intake. Continue therapies. 03/26: More alert, up to chair today. Continue therapies, SW for placement as able. 03/25: Patient arouses to verbal stimulation this morning, but drowsy. Up in chair this afternoon. Sitter at bedside. Seroquel stopped. Continue to encourage PO intake and will wean sitter as able. 03/24 Patient remains in lap belt this morning. Granddaughter at bedside reports patient more alert this morning. Ceftriaxone started for UTI; will switch to PO after 24-28 hours. Accuchecks changed to AC/HS and nursing instructed to cluster care, if possible so patient can rest through the night. Appreciate palliative recs. 03/23: SAVAGE JAY, pt remains w/ delirium requires waist belt restraint. Plan for updated therapy recs for dispo planning today. 03/22: SCOTT JAY, plan for updated PT/OT recs for dispo. MEDIA ASSISTANT for updated recs family able to provide patient's dentures 03/21 TTF from ICU overnight. Patient in lap belt andbilateral mittens. Will arouse to verbal stimulation, but drowsy. Encourage PO intake. Wean out of restraints 03/20: Patient extubated to MN yesterday, now stable on RA. Pt failed nursing swallow, if fails formal MEDIA ASSISTANT swallow, will need dobhoff placed. Plan to transfer to trauma floor today. 03/19: Overnight, all sedation turned off, however patient agitated and precedex restarted. AFVSS. Hgb this AM 7.7. Plan to discuss code status with family, perform SBT and possibly attempt to extubate today. 03/18: AFVSS off pressors. Required 1 unit pRBC overnight for hgb 6.8. Patient intubated PEEP 5 andFiO2 of 30. 03/17: AFVSS. NAEO. Pressors and sedation weaned down to 0. Patient remains on Peep of 5 and Fi02 of 30. Plan for SBT today. 03/16: Propofol replaced with Precedex to assist with agitation during sedation wean. Patient with hypotension to 60/30's, increased levophed from 0.03 to 1.5 max. 1L IVF given, stat labs ordered without any significant changes from previous. Trops mildly elevated, EKG with T wave inversions in anterolateral leads, troponins not increasing. Remains on low vent settings. Unchanged neuro exam. Planto continue current management, wean sedation and pressors as able. 03/15: VBG drawn following SBT (PSV 10/5, RR 14) likely lab error however pt placed back on volume control with improvement. Arterial line placed overnight for BP monitoring as pt intermittently hypotensive, requiring titration of levophed and IVF boluses. Per NSGY, repeat CTH without any new changes/concerns, no further neurosurgical intervention. Plan to pause sedation and trial SBT. Discussed possibility of re-intubation with family, family okay with intubation at this time, still DNR. 03/14: ENT/Face consulted for repair of complex scalp laceration. Will follow up CTA and Neurosurgery recommendations. Patient started on Levophed for MAP's 50's. Remains intubated, sedated with fentanyl and propofol, will wean as able. 03/13: Presented by air as level 1 trauma. Admitted to ICU int ubated/sedated with SDH, SAH. Neurosurgery consulted and CTA to be completed. Current Facility-Administered Medications Medication Dose Route Frequency Provider Last Rate Last Admin 0.9% NaCl injection 3 mL 3 mL Intracatheter q8h Sanchez Nielson MD 3 mL at 03/30/24 0600 And 0.9% NaCl injection 1-10 mL 1-10 mL Intracatheter PRN Sanchez Nielson MD acetaminophen (Tylenol) tablet 650 mg 650 mg Oral q4h PRN Bethanie Benitez APRN- CNP 650 mg at 03/28/24 2000 aspirin chew tablet 81 mg 81 mg Oral QDAY Dian Valera APRN-CNP 81 mg at 03/29/24 1008 atorvastatin (Lipitor) tablet 20 mg 20 mg Oral AT BEDTIME Lennie Anna MD 20 mg at 03/29/242058 carvedilol (Coreg) tablet 25 mg 25 mg Oral BID WC Dian Valera APRN-CNP 25 mg at 03/29/24 1732 dextrose IV 12.5 g 12.5 g Intravenous PRN Eddy Samson MD 12.5 g at 03/19/24 1820 Or dextrose IV 25 g 25 g Intravenous PRN Eddy Samson MD Or glucagon (Glucagen) injection 1 mg 1 mg Subcutaneous PRN Eddy Samson MD enoxaparin (Lovenox) injection 30 mg 30 mg Subcutaneous q12h Gillian Cornejo DO 30 mg at 03/29/24 2100 glucose (Diabetic Use) oral gel Oral PRN Eddy Samson MD labetalol (Normodyne; Trandate) injection 5 mg 5 mg Intravenous q4h PRN Dian Valera APRN-CNP Or hydrALAZINE (Apresoline) injection 5 mg 5 mg Intravenous q4h PRN Dian Valera APRN-CNP lansoprazole (disintegrating) (Prevacid Solutab) tablet 15 mg 15 mg Oral QDAY BEFORE BREAKFAST Bethanie Benitez APRN-CNP 15 mg at 03/30/24 0600 losartan (Cozaar) tablet 25 mg 25 mg Oral QDAY Dian Valera APRN-CNP 25 mg at 03/29/24 1008 melatonin tablet 3 mg 3 mg Oral AT BEDTIME Alexander Mohamud MD 3 mg at 03/29/242058 polyethylene glycol 3350 (Miralax) packet 17 g 17 g Oral QDLennie Zendejas MD 17 g at 03/24/24 1040 senna (Senokot) tablet 8.6 mg 8.6 mg Oral QDLennie Zendejas MD 8.6 mg at 03/29/24 1008 tamsulosin (Flomax) capsule 0.4 mg 0.4 mg Oral QDAY Rosie Nickie, ROBOTICS TESTING TECHNICIAN-ELECTRIC MOTOR REPAIR SUPERVISOR 0.4 mg at 03/29/24 1008 Objective: Patient Vitals for the past 8 hrs: BP Temp Temp src Pulse Resp SpO2 03/30/24 0428 134/72 97.2 ??F (36.2 ??C) Oral 83 20 93 % Temp (24hrs), Av.8 ??F (36.6 ??C), Min:97.2 ??F (36.2 ??C), Max:98.2 ??F (36.8 ??C) Date 03/29/24699 - 03/30/24 0659 03/30/24 07 - 03/31/24 0659 Shift 6974-4920 4253-0432 24 Hour Total 4369-9538 6499-3079 24 Hour Total INTAKE P.O. 710 710 Shift Total(mL/kg) 710(8.1) 710(8.1) OUTPUT Urine(mL/kg/hr) 435(0.4) 400(0.4) 835(0.4) Shift Total(mL/kg) 435(5) 400(4.6) 835(9.5) NET 275 -400 -125 Weight (kg) 87.8 87.8 87.8 87.8 87.8 87.8 Diet: puree Last BM: 03/28 Activity: ad osvaldo WB Limitation: WBAT General Appearance: alert, well appearing, and in no distress Lungs: Normal repiratory effort without retractions, Clear to auscultation bilaterally, and on roomair Heart: Regular rate and rhythm without murmur Abdomen: soft non tender non distended active bowel sounds Neuro: Sensation intact to touch in all extremities and GCS 14, alert to self Extremities: WWP +2 pulses, motor and sensation intact Data Review: CBC: Recent Labs Component Name 03/25/24 1032 03/23/24 1304 03/23/24 0215 WBC 9.1 11.4* 10.5 HGB 9.6* 8.5* 8.5* HCT 30.9* 26.8* 26.9* PLTCOUNT 365 271 284 BMP: Recent Labs Component Name 03/25/24 1032 03/22/24 0656 03/21/24 0212 POTASSIUM 4.3 4.4 4.2 CO2 26 22 28 BUN 18 16 16 CREATININE 0.71 0.88 0.99* GLUCOSE 101* 62* 150* CALCIUM 8.7 8.8 8.1* Assessment: Principal Problem: Subarachnoid bleed (HCC) Active Problems: Altered mental status, unspecified altered mental status type Fall, initial encounter Trauma Impaired mobility and ADLs Acute pain Subdural hematoma (HCC) Neuro: Small tentorial SDH Bilateral sylvian SAH - NSGY consult, no acute interventions - ok for DVT prophylaxis - 03/23 restart ASA - no f/u needed TBI AMS - Monet consult high risk for delirium 2/2 head trauma, limited mobility, disrupted sleep/wake cycle, pain, UTI - Stop Seroquel 2/2 sedative effect, - Sleep hygiene - Abx for UTI acute posttraumatic pain - continue multimodal analgesia regimen Psych: Dementia, chronic Depression, chronic - Monet recs - hold Prozac for now - Seroquel d/c d/t pt being over sedated - d/c IV haldol IV d/t risk of CV complications HEENT: R forehead lac - ENT consult lac repair in ED 5-0 fast - Bacitracin BID x 5 days, then Vaseline as needed - Ad osvaldo, HOB > 30 degrees for 5-7 days - Page prior to d/c for wound check - 03/31 ENT will follow up with patient at bedside Respiratory: COPD, chronic - on room air - encourage IS, pulmonary hygiene, OOBAT Cardivascular: CAD w/ aortic mural thrombus/ulcer HTN HLD - 03/13 d/c from CCU f/u with cardiology outpatient w/ repeat imaging to monitor ulcer - 03/17 TTE w/ EF 65-70 - 03/15 EKG w/ SR w SVC - continue statin -Monitor VS q4 GI/FEN: Concern for Grade 2 liver injury GERD Dysphagia - Hgb stable - MEDIA ASSISTANT eval pt advanced to minced moist diet w/ thin liquids - 03/29 diet modified to puree - Diet: puree - SUP: n/a - BM: 03/28 -Bowel regimen Endocrine: DANIAL Renal: Urinary retention - badder scan/straight cath Q 4-6 hours - intake/output Q 4hours - CrCl 64, UOP adequate - intake and output every 6 hours -replete electrolytes as needed - BMP PRN Hematology: acute blood loss anemia s/p polytrauma - Recent Labs Component Name 03/25/24 1032 WBC 9.1 HGB 9.6* HCT 30.9* PLTCOUNT 365 - transfusion history: - 03/18 1 unit PRBC - transfuse for hgb <7 - CBC PRN Infectious Disease: UTI - 03/28 UA negative - 03/23UA + +3 LE, + nitrites, > 100 WBC, + 1 bacteria - 03/14 UA negative WBC 9.1; remains afebrile No results found for: CULTURE - abx: - 03/24-8 Ceftriaxone - 03/13 Ancef - imaging: n/a - CBC PRN - cedillo culture and skin check for fevers >101.5 Muscloskeletal: Impaired mobility and ADLs - PT/OT recommend SNF placement SKIN: -daily skin care per nursing Lines/Tubes/Drains: PIV Prophylaxis VTE: LVX, SCDs PT/OT: recommend SNF placement SW: assist w/ dispo needs barrier to discharge: Continuing to work towards placement. Granddaughter would like to know if a memory care center is an option for her grandmother. This would likely alleviate the concern for patient requiring a security public safety officer. Dian Valera, GONZALES-ELECTRIC MOTOR REPAIR SUPERVISOR 03/30/2024 7:18 AM PROGRAMMER Associated attestation - Thad Bravo MD - 03/31/2024 8:30 AM VBA PROGRAMMER Patient seen and examined with the residents. Please see note for further details. Patient's lab values and radiology images noted in this report were personally reviewed by me with my interpretations as below, unless otherwise indicated. I confirm history, exam, assessment and plan, except where it may differ from my own as stated below. Thad Bravo MD * Dian Valera, ROBOTICS TESTING TECHNICIAN-ELECTRIC MOTOR REPAIR SUPERVISOR - 03/29/2024 7:18 AM CST Admit Date: 03/13/2024 Hospital day 16 Subjective: Patient out of bed to chair, alert to self. Granddaughter present at bedside. HPI: 88yo F BIBEMS after fall. Admitted to trauma ICU for management of polytrauma Injuries: - SDH (left, 7mm) - SAH - Hemorrhagic contusion (right temporal) - Right frontoparietal scalp laceration - Left frontal scalp contusion - ?grade II liver injury Interval History: 03/29: SAVAGE JAY, patient continues to have ongoing urinary retention requires straight cath Q 4-6 hours. Urology consult today. Plan for vasquez catheter. Will attempt void trial prior to d/c. Granddaughter states patient continues to have trouble with chewing and swallowing. Plan to downgrade patient to puree diet for now. 03/28: FRANKLIN JAY, security public safety officer present working towards SNF placement. Therapies remain ongoing. 03/27: STEPHANIE JAY. Up to chair with therapy, continues to be impulsive but alert. Encouraging PO intake. Continue therapies. 03/26: More alert, up to chair today. Continue therapies, SW for placement as able. 03/25: Patient arouses to verbal stimulation this morning, but drowsy. Up in chair this afternoon. Sitter at bedside. Seroquel stopped. Continue to encourage PO intake and will wean sitter as able. 03/24 Patient remains in lap belt this morning. Granddaughter at bedside reports patient more alert this morning. Ceftriaxone started for UTI; will switch to PO after 24-28 hours. Accuchecks changed to AC/HS and nursing instructed to cluster care, if possible so patient can rest through the night. Appreciate palliative recs. 03/23: SAVAGE JAY, pt remains w/ delirium requires waist belt restraint. Plan for updated therapy recs for dispo planning today. 03/22: SCOTT JAY, plan for updated PT/OT recs for dispo. MEDIA ASSISTANT for updated recs family able to provide patient's dentures 03/21 TTF from ICU overnight. Patient in lap belt andbilateral mittens. Will arouse to verbal stimulation, but drowsy. Encourage PO intake. Wean out of restraints 03/20: Patient extubated to [place] yesterday, now stable on RA. Pt failed nursing swallow, if fails formal MEDIA ASSISTANT swallow, will need dobhoff placed. Plan to transfer to trauma floor today. 03/19: Overnight, all sedation turned off, however patient agitated and precedex restarted. AFVSS. Hgb this AM 7.7. Plan to discuss code status with family, perform SBT and possibly attempt to extubate today. 03/18: AFVSS off pressors. Required 1 unit pRBC overnight for hgb 6.8. Patient intubated PEEP 5 andFiO2 of 30. 03/17: AFVSS. NAEO. Pressors and sedation weaned down to 0. Patient remains on Peep of 5 and Fi02 of 30. Plan for SBT today. 03/16: Propofol replaced with Precedex to assist with agitation during sedation wean. Patient with hypotension to 60/30's, increased levophed from 0.03 to 1.5 max. 1L IVF given, stat labs ordered without any significant changes from previous. Trops mildly elevated, EKG with T wave inversions in anterolateral leads, troponins not increasing. Remains on low vent settings. Unchanged neuro exam. Planto continue current management, wean sedation and pressors as able. 03/15: VBG drawn following SBT (PSV 10/5, RR 14) likely lab error however pt placed back on volume control with improvement. Arterial line placed overnight for BP monitoring as pt intermittently hypotensive, requiring titration of levophed and IVF boluses. Per NSGY, repeat CTH without any new changes/concerns, no further neurosurgical intervention. Plan to pause sedation and trial SBT. Discussed possibility of re-intubation with family, family okay with intubation at this time, still DNR. 03/14: ENT/Face consulted for repair of complex scalp laceration. Will follow up CTA and Neurosurgery recommendations. Patient started on Levophed for MAP's 50's. Remains intubated, sedated with fentanyl and propofol, will wean as able. 03/13: Presented by air as level 1 trauma. Admitted to ICU int ubated/sedated with SDH, SAH. Neurosurgery consulted and CTA to be completed. Current Facility-Administered Medications Medication Dose Route Frequency Provider Last Rate Last Admin 0.9% NaCl injection 3 mL 3 mL Intracatheter q8h Sanchez Nielson MD 3 mL at 03/29/24 0436 And 0.9% NaCl injection 1-10 mL 1-10 mL Intracatheter PRN Sanchez Nielson MD acetaminophen (Tylenol) tablet 650 mg 650 mg Oral q4h PRN Bethanie Benitez APRN- CNP 650 mg at 03/28/241999 aspirin chew tablet 81 mg 81 mg Oral QDAY Dian Valera APRN-CNP 81 mg at 03/28/24 0853 atorvastatin (Lipitor) tablet 20 mg 20 mg Oral AT BEDTIME Lennie Anna MD 20 mg at 03/28/241999 carvedilol (Coreg) tablet 25 mg 25 mg Oral BID WC Dian Valera APRN-CNP 25 mg at 03/28/24 1648 dextrose IV 12.5 g 12.5 g Intravenous PRN Eddy Samson MD 12.5 g at 03/19/24 1820 Or dextrose IV 25 g 25 g Intravenous PRN Eddy Samson MD Or glucagon (Glucagen) injection 1 mg 1 mg Subcutaneous PRN Eddy Samson MD enoxaparin (Lovenox) injection 30 mg 30 mg Subcutaneous q12h Gillian Cornejo DO 30 mg at 03/28/241999 glucose (Diabetic Use) oral gel Oral PRN Eddy Samson MD labetalol (Normodyne; Trandate) injection 5 mg 5 mg Intravenous q4h PRN Dian Valera APRN-CNP Or hydrALAZINE (Apresoline) injection 5 mg 5 mg Intravenous q4h PRN Dian Valera APRN-CNP lansoprazole (disintegrating) (Prevacid Solutab) tablet 15 mg 15 mg Oral QDAY BEFORE BREAKFAST Bethanie Benitez APRN-CNP 15 mg at 03/29/24435 losartan (Cozaar) tablet 25 mg 25 mg Oral QDAY Dian Valera APRN-CNP 25 mg at 03/28/24 0853 melatonin tablet 3 mg 3 mg Oral AT BEDTIME Alxeander Mohamud MD 3 mg at 03/28/241999 polyethylene glycol 3350 (Miralax) packet 17 g 17 g Oral QDLennie Zendejas MD 17 g at 03/24/24 1040 senna (Senokot) tablet 8.6 mg 8.6 mg Oral QDLennie Zendejas MD 8.6 mg at 03/28/24 0853 tamsulosin (Flomax) capsule 0.4 mg 0.4 mg Oral QDAY KarlaAlvina grayGONZALES-ELECTRIC MOTOR REPAIR SUPERVISOR 0.4 mg at 03/28/24 0853 Objective: Patient Vitals for the past 8 hrs: BP Temp Temp src Pulse Resp SpO2 03/29/24 0449 143/73 97.8 ??F (36.6 ??C) Oral 78 16 96 % 03/29/24 0050 152/56 97.6 ??F (36.4 ??C) Oral 71 16 98 % Temp (24hrs), Av.8 ??F (36.6 ??C), Min:97 ??F (36.1 ??C), Max:98.3 ??F (36.8 ??C) Date 03/28/24 07 - 03/29/24 0659 03/29/24 07 - 03/30/24 0659 Shift 8332-9821 2950-0306 24 Hour Total 4796-5020 8700-7708 24 Hour Total INTAKE P.O. 480 240 720 Shift Total(mL/kg) 480(5.5) 240(2.7) 720(8.2) OUTPUT Urine(mL/kg/hr) 800(0.8) 500(0.5) 1300(0.6) Shift Total(mL/kg) 800(9.1) 500(5.7) 1300(14.8) NET -320 -260 -580 Weight (kg) 87.8 87.8 87.8 87.8 87.8 87.8 Diet: puree Last BM: 03/28 Activity: ad osvaldo WB Limitation: WBAT General Appearance: alert, well appearing, and in no distress Lungs: Normal repiratory effort without retractions, Clear to auscultation bilaterally, and on roomair Heart: Regular rate and rhythm without murmur Abdomen: soft non tender non distended active bowel sounds Neuro: Sensation intact to touch in all extremities and GCS 14, alert to self Extremities: WWP +2 pulses, motor and sensation intact Data Review: CBC: Recent Labs Component Name 03/25/24 1032 03/23/24 1304 03/23/24 0215 WBC 9.1 11.4* 10.5 HGB 9.6* 8.5* 8.5* HCT 30.9* 26.8* 26.9* PLTCOUNT 365 271 284 BMP: Recent Labs Component Name 03/25/24 1032 03/22/24 0656 03/21/24 0212 POTASSIUM 4.3 4.4 4.2 CO2 26 22 28 BUN 18 16 16 CREATININE 0.71 0.88 0.99* GLUCOSE 101* 62* 150* CALCIUM 8.7 8.8 8.1* Assessment: Principal Problem: Subarachnoid bleed (HCC) Active Problems: Altered mental status, unspecified altered mental status type Fall, initial encounter Trauma Impaired mobility and ADLs Acute pain Subdural hematoma (HCC) Neuro: Small tentorial SDH Bilateral sylvian SAH - NSGY consult, no acute interventions - ok for DVT prophylaxis - 03/23 restart ASA - no f/u needed TBI AMS - Monet consult high risk for delirium 2/2 head trauma, limited mobility, disrupted sleep/wake cycle, pain, UTI - Stop Seroquel 2/2 sedative effect, - Sleep hygiene - Abx for UTI acute posttraumatic pain - continue multimodal analgesia regimen Psych: Dementia, chronic Depression, chronic - Monet recs - hold Prozac for now - hx , start Quetiapine 12.5 mg BID while hospitalized - d/c IV haldol IV d/t risk of CV complications HEENT: R forehead lac - ENT consult lac repair in ED 5-0 fast - Bacitracin BID x 5 days, then Vaseline as needed - Ad osvaldo, HOB > 30 degrees for 5-7 days - Page prior to d/c for wound check Respiratory: COPD, chronic - on room air - encourage IS, pulmonary hygiene, OOBAT Cardivascular: CAD w/ aortic mural thrombus/ulcer HTN HLD - 03/13 d/c from CCU f/u with cardiology outpatient w/ repeat imaging to monitor ulcer - 03/17 TTE w/ EF 65-70 - 03/15 EKG w/ SR w SVC - continue statin -Monitor VS q4 GI/FEN: Concern for Grade 2 liver injury GERD Dysphagia - Hgb stable - MEDIA ASSISTANT eval pt advanced to minced moist diet w/ thin liquids - 03/29 diet modified to puree - Diet: puree - SUP: n/a - BM: 03/28 -Bowel regimen Endocrine: DANIAL Renal: Urinary retention - badder scan/straight cath Q 4-6 hours - intake/output Q 4hours - CrCl 66, UOP adequate - intake and output every 6 hours -replete electrolytes as needed - BMP PRN Hematology: acute blood loss anemia s/p polytrauma - Recent Labs Component Name 03/25/24 1032 WBC 9.1 HGB 9.6* HCT 30.9* PLTCOUNT 365 - transfusion history: - 03/18 1 unit PRBC - transfuse for hgb <7 - CBC PRN Infectious Disease: UTI - 03/23UA + +3 LE, + nitrites, > 100 WBC, + 1 bacteria - 03/14 UA negative WBC ; remains afebrile No results found for: CULTURE - abx: - 03/24-8 Ceftriaxone - 03/13 Ancef - imaging: n/a - CBC PRN - cedillo culture and skin check for fevers >101.5 Muscloskeletal: Impaired mobility and ADLs - PT/OT recommend SNF placement SKIN: -daily skin care per nursing Lines/Tubes/Drains: PIV Prophylaxis VTE: LVX, SCDs PT/OT: recommend SNF placement SW: assist w/ dispo needs barrier to discharge: Patient continues to have urinary retention. Urology consult today. Plan for vasquez cathter, with attempt at void trial closer to d/c. cord splicer remains in place. Dian Valera APRN-ELECTRIC MOTOR REPAIR SUPERVISOR 03/29/2024 7:18 AM PROGRAMMER Associated attestation - Lennie Anna MD - 03/29/2024 8:21 PM VBA PROGRAMMER I saw and evaluated the patient on the date of service. I discussed the plan of care with the CURRY. I reviewed all relevant labs, rads myself. Agree with note, except as documented here. Lennie Anna MD 03/29/2024 8:21 PM * Arden Buck RN - 03/28/2024 8:59 PM CST Problem: Fall Risk Goal: Fall risk and fall related injury risk are minimized (interventions related to the fall risk can be found in the flowsheet documentation) Outcome: Progressing Problem: Respiratory - Adult Goal: Achieves optimal ventilation and oxygenation Description: INTERVENTIONS: Outcome: Progressing PROGRAMMER * Dian Valera, GONZALES-ELECTRIC MOTOR REPAIR SUPERVISOR - 03/28/2024 9:46 AM CST Admit Date: 03/13/2024 Hospital day 15 Subjective: Patient is out of bed to recliner chair, patient is alert, oriented to self. cord splicer present d/t impulsivity. HPI: 88yo F BIBEMS after fall. Admitted to trauma ICU for management of polytrauma Injuries: - SDH (left, 7mm) - SAH - Hemorrhagic contusion (right temporal) - Right frontoparietal scalp laceration - Left frontal scalp contusion - ?grade II liver injury Interval History: 03/28: FRANKLIN JAY, security public safety officer present working towards SNF placement. Therapies remain ongoing. 03/27: STEPHANIE JAY. Up to chair with therapy, continues to be impulsive but alert. Encouraging PO intake. Continue therapies. 03/26: More alert, up to chair today. Continue therapies, SW for placement as able. 03/25: Patient arouses to verbal stimulation this morning, but drowsy. Up in chair this afternoon. Sitter at bedside. Seroquel stopped. Continue to encourage PO intake and will wean sitter as able. 03/24 Patient remains in lap belt this morning. Granddaughter at bedside reports patient more alert this morning. Ceftriaxone started for UTI; will switch to PO after 24-28 hours. Accuchecks changed to AC/HS and nursing instructed to cluster care, if possible so patient can rest through the night. Appreciate palliative recs. 03/23: SAVAGE JAY, pt remains w/ delirium requires waist belt restraint. Plan for updated therapy recs for dispo planning today. 03/22: SCOTT JAY, plan for updated PT/OT recs for dispo. MEDIA ASSISTANT for updated recs family able to provide patient's dentures 03/21 TTF from ICU overnight. Patient in lap belt andbilateral mittens. Will arouse to verbal stimulation, but drowsy. Encourage PO intake. Wean out of restraints 03/20: Patient extubated to [place] yesterday, now stable on RA. Pt failed nursing swallow, if fails formal MEDIA ASSISTANT swallow, will need dobhoff placed. Plan to transfer to trauma floor today. 03/19: Overnight, all sedation turned off, however patient agitated and precedex restarted. AFVSS. Hgb this AM 7.7. Plan to discuss code status with family, perform SBT and possibly attempt to extubate today. 03/18: AFVSS off pressors. Required 1 unit pRBC overnight for hgb 6.8. Patient intubated PEEP 5 andFiO2 of 30. 03/17: AFVSS. NAEO. Pressors and sedation weaned down to 0. Patient remains on Peep of 5 and Fi02 of 30. Plan for SBT today. 03/16: Propofol replaced with Precedex to assist with agitation during sedation wean. Patient with hypotension to 60/30's, increased levophed from 0.03 to 1.5 max. 1L IVF given, stat labs ordered without any significant changes from previous. Trops mildly elevated, EKG with T wave inversions in anterolateral leads, troponins not increasing. Remains on low vent settings. Unchanged neuro exam. Planto continue current management, wean sedation and pressors as able. 03/15: VBG drawn following SBT (PSV 10/5, RR 14) likely lab error however pt placed back on volume control with improvement. Arterial line placed overnight for BP monitoring as pt intermittently hypotensive, requiring titration of levophed and IVF boluses. Per NSGY, repeat CTH without any new changes/concerns, no further neurosurgical intervention. Plan to pause sedation and trial SBT. Discussed possibility of re-intubation with family, family okay with intubation at this time, still DNR. 03/14: ENT/Face consulted for repair of complex scalp laceration. Will follow up CTA and Neurosurgery recommendations. Patient started on Levophed for MAP's 50's. Remains intubated, sedated with fentanyl and propofol, will wean as able. 03/13: Presented by air as level 1 trauma. Admitted to ICU int ubated/sedated with SDH, SAH. Neurosurgery consulted and CTA to be completed. Current Facility-Administered Medications Medication Dose Route Frequency Provider Last Rate Last Admin 0.9% NaCl injection 3 mL 3 mL Intracatheter q8h Sanchez Nielson MD 3 mL at 03/28/24 0447 And 0.9% NaCl injection 1-10 mL 1-10 mL Intracatheter PRN Sanchez Nielson MD acetaminophen (Tylenol) tablet 650 mg 650 mg Oral q4h PRN Bethanie Benitez APRN- CNP 650 mg at 03/27/24 1950 aspirin chew tablet 81 mg 81 mg Oral QDAY Dian Valera APRN-CNP 81 mg at 03/28/24 0853 atorvastatin (Lipitor) tablet 20 mg 20 mg Oral AT BEDTIME Lennie Anna MD 20 mg at 03/27/241949 carvedilol (Coreg) tablet 25 mg 25 mg Oral BID WC Dian Valera APRN-CNP 25 mg at 03/28/24 0853 dextrose IV 12.5 g 12.5 g Intravenous PRN Eddy Samson MD 12.5 g at 03/19/24 1820 Or dextrose IV 25 g 25 g Intravenous PRN Eddy Samson MD Or glucagon (Glucagen) injection 1 mg 1 mg Subcutaneous PRN Eddy Samson MD enoxaparin (Lovenox) injection 30 mg 30 mg Subcutaneous q12h Gillian Cornejo, DO 30 mg at 03/28/24 0853 glucose (Diabetic Use) oral gel Oral PRN Eddy Samson MD labetalol (Normodyne; Trandate) injection 5 mg 5 mg Intravenous q4h PRN Dian Valera APRN-CNP Or hydrALAZINE (Apresoline) injection 5 mg 5 mg Intravenous q4h PRN Dian Valera APRN-CNP lansoprazole (disintegrating) (Prevacid Solutab) tablet 15 mg 15 mg Oral QDAY BEFORE BREAKFAST Bethanie Benitez APRN-CNP 15 mg at 03/28/24 0447 losartan (Cozaar) tablet 25 mg 25 mg Oral QDAY Dian Valera APRN-CNP 25 mg at 03/28/24 0853 melatonin tablet 3 mg 3 mg Oral AT BEDTIME Alexander Mohamud MD 3 mg at 03/27/24 1950 polyethylene glycol 3350 (Miralax) packet 17 g 17 g Oral QDLennie Zendejas MD 17 g at 03/24/24 1040 senna (Senokot) tablet 8.6 mg 8.6 mg Oral QDLennie Zendejas MD 8.6 mg at 03/28/24 0853 tamsulosin (Flomax) capsule 0.4 mg 0.4 mg Oral QDAY RosieAlvina APRN-ELECTRIC MOTOR REPAIR SUPERVISOR 0.4 mg at 03/28/24 0853 Objective: Patient Vitals for the past 8 hrs: BP Temp Temp src Pulse Resp SpO2 03/28/24 0852 172/59 -- -- 83 16 93 % 03/28/24 0453 157/79 -- -- 78 -- -- 03/28/24 0318 (!) 185/61 97.3 ??F (36.3 ??C) Oral 80 18 95 % Temp (24hrs), Av ??F (36.7 ??C), Min:97.3 ??F (36.3 ??C), Max:98.5 ??F (36.9 ??C) @VENTSETTINGSLH@ Date 03/27/24699 - 03/28/24 0659 03/28/24699 - 03/29/24 0659 Shift 6470-6581 6309-4634 24 Hour Total 1577-8361 9513-0988 24 Hour Total INTAKE P.O. 240 180 420 Shift Total(mL/kg) 240(2.7) 180(2) 420(4.8) OUTPUT Shift Total(mL/kg) NET 240 180 420 Weight (kg) 87.8 87.8 87.8 87.8 87.8 87.8 Diet: minced moist w/ thin liquids Last BM: 03/27 Activity: ad osvaldo WB Limitation: WBAT General Appearance: alert, well appearing, and in no distress Lungs: Normal repiratory effort without retractions, Clear to auscultation bilaterally, and on roomair Heart: Regular rate and rhythm without murmur Abdomen: soft non tender non distended active bowel sounds Neuro: Sensation intact to touch in all extremities and GCS 14, alert to self Extremities: WWP +2 pulses, motor and sensation intact Data Review: CBC: Recent Labs Component Name 03/25/24 1032 03/23/24 1304 03/23/24 0215 WBC 9.1 11.4* 10.5 HGB 9.6* 8.5* 8.5* HCT 30.9* 26.8* 26.9* PLTCOUNT 365 271 284 BMP: Recent Labs Component Name 03/25/24 1032 03/22/24 0656 03/21/24 0212 POTASSIUM 4.3 4.4 4.2 CO2 26 22 28 BUN 18 16 16 CREATININE 0.71 0.88 0.99* GLUCOSE 101* 62* 150* CALCIUM 8.7 8.8 8.1* Assessment: Principal Problem: Subarachnoid bleed (HCC) Active Problems: Altered mental status, unspecified altered mental status type Fall, initial encounter Trauma Impaired mobility and ADLs Acute pain Subdural hematoma (HCC) Neuro: Small tentorial SDH Bilateral sylvian SAH - NSGY consult, no acute interventions - ok for DVT prophylaxis - 03/23 restart ASA - no f/u needed TBI AMS - Monet consult high risk for delirium 2/2 head trauma, limited mobility, disrupted sleep/wake cycle, pain, UTI - Stop Seroquel 2/2 sedative effect, - Sleep hygiene - Abx for UTI acute posttraumatic pain - continue multimodal analgesia regimen Psych: Dementia, chronic Depression, chronic - Monet recs - hold Prozac for now - hx , start Quetiapine 12.5 mg BID while hospitalized - d/c IV haldol IV d/t risk of CV complications HEENT: R forehead lac - ENT consult lac repair in ED 5-0 fast - Bacitracin BID x 5 days, then Vaseline as needed - Ad osvaldo, HOB > 30 degrees for 5-7 days - Page prior to d/c for wound check Respiratory: COPD, chronic - on room air - encourage IS, pulmonary hygiene, OOBAT Cardivascular: CAD w/ aortic mural thrombus/ulcer HTN HLD - 03/13 d/c from CCU f/u with cardiology outpatient w/ repeat imaging to monitor ulcer - 03/17 TTE w/ EF 65-70 - 03/15 EKG w/ SR w SVC - continue statin -Monitor VS q4 GI/FEN: Concern for Grade 2 liver injury GERD Dysphagia - Hgb stable - MEDIA ASSISTANT eval pt advanced to minced moist diet w/ thin liquids - Diet:DIETORD@ - SUP: n/a - BM: 03/26 -Bowel regimen Endocrine: DANIAL Renal: Urinary retention - badder scan/straight cath Q 4-6 hours - intake/output Q 4hours - CrCl 66, UOP adequate - intake and output every 6 hours -replete electrolytes as needed - BMP PRN Hematology: acute blood loss anemia s/p polytrauma - Recent Labs Component Name 03/25/24 1032 WBC 9.1 HGB 9.6* HCT 30.9* PLTCOUNT 365 - transfusion history: - 03/18 1 unit PRBC - transfuse for hgb <7 - CBC PRN Infectious Disease: UTI - 03/23UA + +3 LE, + nitrites, > 100 WBC, + 1 bacteria - 03/14 UA negative WBC ; remains afebrile No results found for: CULTURE - abx: - 03/24-8 Ceftriaxone - 03/13 Ancef - imaging: n/a - CBC PRN - cedillo culture and skin check for fevers >101.5 Muscloskeletal: DANIAL SKIN: -daily skin care per nursing Lines/Tubes/Drains: PIV Prophylaxis VTE: LVX, SCDs PT/OT: recommend SNF placement SW: assist w/ dispo needs barrier to discharge: Patient has security public safety officer present d/t impulsive behavior and high fall risk. Will continue to wean. SNF for mobility and ADLS Dian Valera, GONZALES-ELECTRIC MOTOR REPAIR SUPERVISOR 03/28/2024 9:48 AM PROGRAMMER Associated attestation - Lennie Anna MD - 03/29/2024 8:21 PM VBA PROGRAMMER I saw and evaluated the patient on the date of service. I discussed the plan of care with the CURRY. I reviewed all relevant labs, rads myself. Agree with note, except as documented here. Lennie Anna MD 03/29/2024 8:21 PM * Arden Buck RN - 03/27/2024 8:59 PM CST Problem: Impaired Gas Exchange Goal: Resp rate/effort will be within specified limits Outcome: Progressing PROGRAMMER * Alvina Velez, ROBOTICS TESTING TECHNICIAN-ELECTRIC MOTOR REPAIR SUPERVISOR - 03/27/2024 4:44 PM CST Trauma Floor Progress Note Today's Date: 03/27/24 Admit Date: 03/13/2024 LOS: 11 History: 88yo F BIBEMS after fall. Admitted to trauma ICU for management of polytrauma Injuries: - SDH (left, 7mm) - SAH - Hemorrhagic contusion (right temporal) - Right frontoparietal scalp laceration - Left frontal scalp contusion - ?grade II liver injury Interval History: 03/27: STEPHANIE JAY. Up to chair with therapy, continues to be impulsive but alert. Encouraging PO intake. Continue therapies. 03/26: More alert, up to chair today. Continue therapies, SW for placement as able. 03/25: Patient arouses to verbal stimulation this morning, but drowsy. Up in chair this afternoon. Sitter at bedside. Seroquel stopped. Continue to encourage PO intake and will wean sitter as able. 03/24 Patient remains in lap belt this morning. Granddaughter at bedside reports patient more alert this morning. Ceftriaxone started for UTI; will switch to PO after 24-28 hours. Accuchecks changed to AC/HS and nursing instructed to cluster care, if possible so patient can rest through the night. Appreciate palliative recs. 03/23: SAVAGE JAY, pt remains w/ delirium requires waist belt restraint. Plan for updated therapy recs for dispo planning today. 03/22: SCOTT JAY, plan for updated PT/OT recs for dispo. MEDIA ASSISTANT for updated recs family able to provide patient's dentures 03/21 TTF from ICU overnight. Patient in lap belt andbilateral mittens. Will arouse to verbal stimulation, but drowsy. Encourage PO intake. Wean out of restraints 03/20: Patient extubated to NC yesterday, now stable on RA. Pt failed nursing swallow, if fails formal MEDIA ASSISTANT swallow, will need dobhoff placed. Plan to transfer to trauma floor today. 03/19: Overnight, all sedation turned off, however patient agitated and precedex restarted. AFVSS. Hgb this AM 7.7. Plan to discuss code status with family, perform SBT and possibly attempt to extubate today. 03/18: AFVSS off pressors. Required 1 unit pRBC overnight for hgb 6.8. Patient intubated PEEP 5 andFiO2 of 30. 03/17: AFVSS. NAEO. Pressors and sedation weaned down to 0. Patient remains on Peep of 5 and Fi02 of 30. Plan for SBT today. 03/16: Propofol replaced with Precedex to assist with agitation during sedation wean. Patient with hypotension to 60/30's, increased levophed from 0.03 to 1.5 max. 1L IVF given, stat labs ordered without any significant changes from previous. Trops mildly elevated, EKG with T wave inversions in anterolateral leads, troponins not increasing. Remains on low vent settings. Unchanged neuro exam. [place] continue current management, wean sedation and pressors as able. 03/15: VBG drawn following SBT (PSV 10/5, RR 14) likely lab error however pt placed back on volume control with improvement. Arterial line placed overnight for BP monitoring as pt intermittently hypotensive, requiring titration of levophed and IVF boluses. Per NSGY, repeat CTH without any new changes/concerns, no further neurosurgical intervention. Plan to pause sedation and trial SBT. Discussed possibility of re-intubation with family, family okay with intubation at this time, still DNR. 03/14: ENT/Face consulted for repair of complex scalp laceration. Will follow up CTA and Neurosurgery recommendations. Patient started on Levophed for MAP's 50's. Remains intubated, sedated with fentanyl and propofol, will wean as able. 03/13: Presented by air as level 1 trauma. Admitted to ICU int ubated/sedated with SDH, SAH. Neurosurgery consulted and CTA to be completed. 0.9% NaCl, 3 mL, q8h aspirin, 81 mg, QDAY atorvastatin, 20 mg, AT BEDTIME carvedilol, 25 mg, BID WC cefTRIAXone, 2 g, q24h enoxaparin, 30 mg, q12h lansoprazole (disintegrating), 15 mg, QDAY BEFORE BREAKFAST losartan, 25 mg, QDAY melatonin, 3 mg, AT BEDTIME polyethylene glycol 3350, 17 g, QDAY senna, 8.6 mg, QDAY tamsulosin, 0.4 mg, QDAY 0.9% NaCl, 1-10 mL, PRN acetaminophen, 650 mg, q4h PRN dextrose IV for hypoglycemia, 12.5 g, PRN Or dextrose IV for hypoglycemia, 25 g, PRN Or glucagon, 1 mg, PRN glucose (Diabetic Use) gel, , PRN labetalol, 5 mg, q4h PRN Or hydrALAZINE, 5 mg, q4h PRN Review of Systems Pertinent items are noted in HPI. Objective: Patient Vitals for the past 8 hrs: BP Temp Temp src Pulse SpO2 03/27/24 0956 132/70 98.2 ??F (36.8 ??C) Oral 74 99 % Temp (24hrs), Av.4 ??F (36.9 ??C), Min:98.2 ??F (36.8 ??C), Max:98.5 ??F (36.9 ??C) Intake/Output Summary (Last 24 hours) at 03/27/2024 1644 Last data filed at 03/27/2024 1421 Gross per 24 hour Intake 240 ml Output 1200 ml Net -960 ml Diet: minced/moist (Dys2), thin liquids Last BM: 03/26 Activity: as tolerated WB Limitation: as tolerated General Appearance: alert, distress Head: R scalp laceration intact, R facial ecchymosis Lungs: Normal repiratory effort without retractions Heart: Regular rate and rhythm without murmur Abdomen: Abdomen soft, non-distended without mass or tenderness Extremities: ALVAREZ to command, WWP Data Review: CBC: Recent Labs Component Name 03/25/24 1032 03/23/24 1304 03/23/24 0215 WBC 9.1 11.4* 10.5 HGB 9.6* 8.5* 8.5* HCT 30.9* 26.8* 26.9* Electrolytes: Recent Labs Component Name 03/25/24 1032 03/22/24 0656 03/21/24 0212 03/20/24 0029 NA 143 143 136 138 CL 106 104 102 105 CO2 26 22 28 26 BUN 18 16 16 16 CREATININE 0.71 0.88 0.99* 0.65 CALCIUM 8.7 8.8 8.1* 8.6 MAGNESIUM 2.3 - 2.1 2.3 Coags: Recent Labs Component Name 03/13/24 2209 03/11/24 1435 INR 1.1 1.0 PTT 23.3 - Assessment/Plan: Neuro: Acute post traumatic pain -Continue multimodal analgesia Small tentorial SDH, Bilateral sylvian SAH -NSGY consulted: no acute interventions -VTE ppx ok -can restart ASA 03/23 -no f/u needed TBI, Altered mental status -Monet following: - Fluctuating mental status. High risk given head trauma, limited mobility, disturbed sleep/wake cycle, pain, urinary retention - Stop Quetiapine given sedating effects - Recommend to focus on simple interventions. Keeping her active/awake during the day, blinds up. Avoid nocturnal disturbances - Activity apron during the day - On Ceftriaxone for presumed UTI. No culture obtained - melatonin QHS - sleep hygiene Psych: Dementia-chronic, Depression-chronic -Monet following: on no medications other than prozac for depression sx. Can hold prozac at this time. Will need PT/OT assessment once stabilized/extubated if expected to d/c back to her facility based on functional needs. - 03/23 Palliative consulted: - has history of sundowning, although not taking any medications - can start low dose quetiapine 12.5mg BID during hospitalizations to control agitation with plan to discontinue at discharge - continue to monitor - DC megestrol (no evidence of benefit and high risk of side effects) - please discontinue haldol IV (high risk of CV complications) and doses higher than 1mg should notbe used in elderly patients HEENT: R forehead laceration -ENT consulted: 03/14 s/p laceration repair with 5-0 fast - Recommend applying bacitracin to lacerations, abrasions, twice per day for 5 days then switch to petroleum ointment (Vaseline or similar) daily as needed to prevent crusting. - Activity: If not contraindicated by another service, recommend head elevated >30 degrees for 5-7 days to reduce swelling - Please page on discharge so we can do a wound check prior to discharge vs schedule outpatient follow up. Respiratory: COPD-chronic -stable on RA -IS for pulmonary toilet -OOB as able Cardiovascular: CAD with aortic mural thrombus/ulcer, HLD, HTN - 03/13 discharged from CCU; plan was to follow up with cardiology as outpatient with repeat imaging to see if ulcer has expanded in size - 03/17 TTE: EF ~65-70% - 03/15 EKG: SR with SVC, QTc 481 - holding ASA per NSGY - continue statin GI: Concern for Grade 2 liver injury, GERD-chronic, Dysphagia -Hgb 9.6(8.5) -MEDIA ASSISTANT for swallow: Recommend Minced&Moist/Dys2 -granddaughter reports has dentures but needs adhesive -Bowel regimen -Replace electrolytes daily as needed Endocrine: No acute issues Renal: Urinary retention -bladder scan/straight cath regimen Q4-6h -Monitor I/O -CrCL 63.5 Hematology: Acute blood loss anemia -Hgb 9.6(8.5) - transfusion history: - 03/18 1 unit PRBC -Transfuse for Hgb<7 Infectious Disease: UTI -WBC 9.1(11.4) - cultures: - 03/23 UA: 3+ LE; positive nitrite; > 100 WBC; +1 bacteria - 03/14 UA: negative for infection - antibiotics: - 03/24-03/29 Ceftriaxone - 03/13 Ancef Musculoskeletal: No acute issues PPX: SCDs, LVX PT/OT/ST: Recommend SNF placement Dispo: SNF placement for assistance with mobility and ADLs when able Alvina Velez APRN-ELECTRIC MOTOR REPAIR SUPERVISOR 03/27/2024 4:44 PM PROGRAMMER Associated attestation - Cole Horton MD - 04/06/2024 3:28 PM VBA PROGRAMMER This note was not complete at the time of rounds. Please see my separate note from this date that links to this one. Thank you. * Cole Horton MD - 03/27/2024 2:46 PM CST Pt seen and examined with team History and exam discussed with trauma chief Labs and films reviewed Agree with above assessments and plan Not in restraints Tolerating diet Working on placement Please see resident's note for further details. PROGRAMMER * Kumar Carlos Dwight, ROBOTICS TESTING TECHNICIAN-ELECTRIC MOTOR REPAIR SUPERVISOR - 03/27/2024 11:33 AM CST GERIATRIC MEDICINE FOLLOW UP NOTE 03/27/2024 11:33 AM Reason for Consult: Delirium Consulting Physician and Team: Trauma Acute Events: Grand daughter Ada at bedside this morning Mental status up and down Retaining urine requiring straight cath Up to chair Ate a little breakfast Bowels moved yesterday Subjective: Denied pain Breathing okay Comprehensive Geriatric Assessment: CONFUSION ASSESSMENT METHOD 1) Acute onset or fluctuating course: yes 2) Inattention: yes 3) Disorganized thinking: yes 4) Altered Level of Consciousness: No Level of Consciousness: initially drowsy but awakened when to chair Delirium is suggested if criteria #1 & #2 are positive PLUS criteria #3 OR #4 Is deliirum suggested: yes but much better Current Meds: 0.9% NaCl 3 mL Intracatheter q8h aspirin 81 mg Oral QDAY atorvastatin 20 mg Oral AT BEDTIME carvedilol 25 mg Oral BID WC cefTRIAXone 2 g Intravenous q24h enoxaparin 30 mg Subcutaneous q12h lansoprazole (disintegrating) 15 mg Oral QDAY BEFORE BREAKFAST losartan 25 mg Oral QDAY melatonin 3 mg Oral AT BEDTIME polyethylene glycol 3350 17 g Oral QDAY senna 8.6 mg Oral QDAY tamsulosin 0.4 mg Oral QDAY OBJECTIVE Vitals: Patient Vitals for the past 6 hrs: Temp Pulse BP BP Method 03/27/24 0956 98.2 ??F (36.8 ??C) 74 132/70 Automatic Intake/Output Summary (Last 24 hours) at 03/27/2024 1133 Last data filed at 03/27/2024 0826 Gross per 24 hour Intake 0 ml Output 1200 ml Net -1200 ml Weight: Wt Readings from Last 2 Encounters: 03/19/24 87.8 kg (193 lb 9.6 oz) 03/12/24 65.1 kg (143 lb 8.3 oz) Physical Exam: General: NAD, pleasant frail appearing elderly woman HEENT: EOMI. PERRL Neck: No cervical lymphadenopathy Pulm: CTA-B. Cardio: RRR, S1S2 normal. No MRG Abdomen: Soft, NT, ND. BS x 4 normoactive Extremity: No edema Neuro: A & O x 2. Following commands. More awake and interactive. Skin: Warm and dry Labs: CBC: Recent Labs Component Name 03/25/24 1032 03/23/24 1304 03/23/24 0215 WBC 9.1 11.4* 10.5 HGB 9.6* 8.5* 8.5* BMP: Recent Labs Component Name 03/25/24 1032 03/22/24 0656 03/21/24 0212 NA 143 143 136 CL 106 104 102 CO2 26 22 28 BUN 18 16 16 CREATININE 0.71 0.88 0.99* Recent Labs Component Name 03/25/24 1032 03/22/24 0656 03/21/24 0212 03/20/24 0029 CALCIUM 8.7 8.8 8.1* 8.6 PHOS 3.2 - 3.0 2.9 LFT: Recent Labs Component Name 03/15/24 1626 03/13/24 2209 03/13/24 0936 03/12/24 0330 03/11/24 1435 PROT 4.4* 5.4* - - 6.0 ALB 2.1* 2.8* 2.8* - 3.0* ALKPHOS 44 57 - - 63 AST 12 16 - - 12 ALT 8 9 - - 8 - = values in this interval not displayed. Coagulation: Recent Labs Component Name 03/13/249 03/11/24 1435 PT 13.9 12.9 INR 1.1 1.0 Cardiac markers: Recent Labs Component Name 03/15/24 1626 03/11/24 1435 BNP 50 189* Microbiology: Latest Reference Range & Units 03/23/24 18:27 Color UA Straw, Yellow Ramya ! Clarity UA Clear Cloudy ! Specific Bigelow UA 1.005 - 1.030 1.023 pH UA 5.0 - 8.0 pH 6.0 Protein UA Negative 1+ ! Blood UA Negative 1+ ! Ketone UA Negative Negative Leukocyte Esterase Negative 3+ ! Nitrite UA Negative Positive ! Glucose UA Negative Negative Bilirubin UA Negative Negative Urobilinogen UA Negative mg/dL 2.0 ! WBC UA None Seen, 0-5 /HPF >100 ! RBC UA None Seen, 0-2, 3-5 /HPF 6-10 ! Squamous Epithelial Cells UA None Seen, 0-2, 3-5 /HPF 0-2 Bacteria Urine None /HPF 1+ ! !: Data is abnormal Imaging: CXR Normal cardiomediastinal silhouette. Atherosclerotic aorta. No focal consolidation, pleural effusion, or pneumothorax. ASSESSMENT & RECOMMENDATIONS Delirium -Fluctuating mental status but much better today. High risk given head trauma, limited mobility, disturbed sleep/wake cycle, pain, urinary retention -Quetiapine stopped. More awake today -Recommend to focus on simple interventions. Keeping her active/awake during the day, blinds up. Avoid nocturnal disturbances. Up in chair -Activity apron during the day -On Ceftriaxone for presumed UTI. No culture obtained -Continue to focus on non pharmacological approach with mobilization and redirection for fluctuating mental status. OVerall much better today with this approach. -No restraints. Sitter at bedside if needed at night. Family present during the day. Delirium Recommendations: Delirium is a morbid condition, associated with mortality. It's preventable. - daily CAM assessment - minimize tethers (eg re-assess need for Vasquez daily) - Miralax for prevention of constipation if on opioids - early mobilization - Avoid sedative hypnotics/anticholniergics. Avoid narcotics - Ensure adequate pain control. - Address sensory deficits. Vision and hearing - Provide orienting stimuli: Clock, calendar, minimal staff changes, light during the day, dark at night - please place the following orders in a nursing communication: up in chair with meals TID if activity orders allow blinds up and lights on in the AM. daily family visits Minimize nocturnal disturbances. Avoid unnecessary labs, VS, medications at night. Promote regular sleep/wake cycle Optimize nutritional status. Ensure supplements TID between meals if needed Urinary Retention -Retaining urine requiring straight cath. Should improve with mobilization -Flomax 0.4mg daily Monitor electrolytes QD, Replace K<4, Mg<2, Phos<3 Reviewed today's VS No labs today Thank you for this consult. Please call with questions. Geriatrics will continue to follow along with you. Please note, recommendations are not final until co-signed/attested by attending I have spent total 30 minutes caring for this patient, reviewing available labs, medications, coordinating care with staff (Alvina) , and discussing patient with family (Grand daughter Ada at bedside). I also got the patient to chair this morning with pharmacy customer care specialist assistance. I discussed with Ada that I believe her grandmother is SNF ready once accepted. Patient to be discussed with attending, Dr. Negro Heath, ANP-, Geriatrics 03/27/2024 11:33 AM Pager: [phone] Electronically signed by Carlos Heath, ROBOTICS TESTING TECHNICIAN-ELECTRIC MOTOR REPAIR SUPERVISOR at 03/27/2024 11:43 AM VBA PROGRAMMER * Courtney Ortiz RN - 03/27/2024 11:19 AM CST Care Coordination Progress Note Expected Discharge Date: 03/30/2024 Discharge Plan: Restraints have been discontinued, she continues to have a sitter at the bedside per family request. PT recommending SNF at discharge. SW following for referrals. Family Support (Name and Phone): Extended Emergency Contact Information Primary Emergency Contact: Meri Henderson ([employer]) Mobile Relation: Daughter Preferred language: Icelandic V Belt Curer needed? No Secondary Emergency Contact: shay washington Mobile Relation: Daughter Guardian: MERI HENDERSON [employer] Mobile Relation: Daughter Transportation at Discharge: Family: READMISSION RISK SCORE is 16 at 11:19 AM 03/27/2024.: Name: Courtney Ortiz RN PROGRAMMER * Tish Mireles RN - 03/27/2024 8:41 AM CST Problem: Safety related to restraint use Goal: Absence of injury while restrained Outcome: Progressing Problem: Skin Integrity Goal: Skin integrity is maintained or improved Outcome: Progressing Problem: Impaired Gas Exchange Goal: Resp rate/effort will be within specified limits Outcome: Progressing Problem: Mobility Goal: Patient's mobility/activity will be maintained as optimum level for age, diagnosis and physical limitations Outcome: Progressing Goal: Continuum of care needs are further met through referral to outpatient services when appropriate. Outcome: Progressing Goal: Patient reports the ability to perform Activities of Daily Living. Outcome: Progressing Problem: Fall Risk Goal: Fall risk and fall related injury risk are minimized (interventions related to the fall risk can be found in the flowsheet documentation) Outcome: Progressing Problem: Pain/Discomfort Goal: Patient exhibits reduced pain/discomfort as evidenced by pain scores Outcome: Progressing Goal: Patient uses pharmacological and non-pharmacological pain management strategies. Outcome: Progressing Goal: Patient verbalizes acceptable level of pain relief and ability to engage in desired activity. Outcome: Progressing Problem: Potential for Urinary Catheter-Associated Infection Goal: Signs and Symptoms of urinary catheter-associated infection are avoided Outcome: Progressing Goal: Normal urinary patterns are established within parameters of age and disease process Outcome: Progressing Problem: Risk for Violence: Self-Directed or Other Directed Description: Diagnosis: Risk for self-directed Violence or Risk for Directed Violence Risk Factors: Biochemical/neurologic imbalances, impulsivity, manic excitement, psychotic symptomatology, rage reaction, restlessness Possibly Evidenced By: agitated behaviors, delusional thinking, hallucinations, loud/threatening/profane speech, poor impulse control, provocative behaviors, verbal threats against others, verbal threats against self Goal: Patient will verbalize control of feelings. Outcome: Progressing Goal: Patient will respond to interventions when potential or actual loss of control occurs. Outcome: Progressing Goal: Patient will refrain from provoking others to physical harm. Outcome: Progressing Goal: Patient will display nonviolent behaviors toward others in the hospital, with the aid of medications and nursing interventions. Outcome: Progressing Goal: Patient will seek help when experiencing aggressive impulses. Outcome: Progressing Goal: Patient will refrain from verbal threats and loud, profrane language toward others. Outcome: Progressing Goal: Patient will be safe and free from injury. Outcome: Progressing Problem: Transfers Goal: STG - Patient to transfer to and from sit to supine Outcome: Progressing Problem: Swallowing Goal: LTG - Patient will tolerate the least restrictive diet consistency to allow for safe consumption of daily meals Outcome: Progressing Goal: STG - Patient will tolerate recommended food and liquid consistencies without clinical signs and symptoms of aspiration Outcome: Progressing Problem: Restraint Safety Goal: Free from restraint(s) Description: INTERVENTIONS: Outcome: Progressing Goal: Remains free of injury from restraints Description: INTERVENTIONS: Outcome: Progressing Problem: Skin/Tissue Integrity - Adult Goal: Skin integrity remains intact Description: INTERVENTIONS: Outcome: Progressing Goal: Incisions, wounds, or drain sites healing without S/S of infection Description: INFECTIONS: Outcome: Progressing Goal: Oral mucous membranes remain intact Description: INTERVENTIONS: Outcome: Progressing Problem: Musculoskeletal - Adult Goal: Return mobility to safest level of function Description: INTERVENTIONS: Outcome: Progressing Goal: Maintain proper alignment of affected body part Description: INTERVENTIONS: Outcome: Progressing Goal: Return ADL status to a safe level of function Description: INTERVENTIONS: Outcome: Progressing Problem: Coping Goal: Patient/Healthcare Agent able to verbalize concerns and demonstrate effective coping strategies Description: INTERVENTIONS Outcome: Progressing Problem: Behavior Goal: Pt/Family maintain appropriate behavior and adhere to behavioral management agreement, if implemented Description: INTERVENTIONS Outcome: Progressing Problem: Neurosensory - Adult Goal: Achieves stable or improved neurological status Description: INTERVENTIONS Outcome: Progressing Goal: Remains free of injury related to seizures activity Description: INTERVENTIONS: Outcome: Progressing Goal: Achieves maximal functionality and self care Description: INTERVENTIONS: Outcome: Progressing Problem: Respiratory - Adult Goal: Achieves optimal ventilation and oxygenation Description: INTERVENTIONS: Outcome: Progressing Problem: Cardiovascular - Adult Goal: Maintains optimal cardiac output and hemodynamic stability Description: INTERVENTIONS: Outcome: Progressing Goal: Absence of cardiac dysrhythmias or at baseline Description: INTERVENTIONS: Outcome: Progressing Problem: Gastrointestinal - Adult Goal: Minimal or absence of nausea and vomiting Description: INTERVENTIONS: Outcome: Progressing Goal: Maintains or returns to baseline bowel function Description: INTERVENTIONS: Outcome: Progressing Goal: Maintains adequate nutritional intake Description: INTERVENTIONS: Outcome: Progressing Problem: Genitourinary - Adult Goal: Absence of urinary retention Description: INTERVENTIONS: Outcome: Progressing Goal: Urinary catheter remains patent Description: INTERVENTIONS: Outcome: Progressing Problem: Infection - Adult Goal: Infections are decreased or avoided Description: INTERVENTIONS: Outcome: Progressing Problem: Metabolic/Fluid and Electrolytes - Adult Goal: Electrolytes maintained within normal limits Description: INTERVENTIONS: Outcome: Progressing Goal: Hemodynamic stability and optimal renal function maintained Description: INTERVENTIONS: Outcome: Progressing Goal: Glucose maintained within prescribed range Description: INTERVENTIONS: Outcome: Progressing Problem: Hematologic - Adult Goal: Maintains hematologic stability Description: INTERVENTIONS: Outcome: Progressing Problem: Anxiety Goal: Will report anxiety at manageable levels Description: INTERVENTIONS Outcome: Progressing Problem: Decision Making Goal: Patient/Healthcare Agent able to effectively weigh alternatives and participate in decision making related to treatment and care. Description: INTERVENTIONS Outcome: Progressing PROGRAMMER * Jillian Ramos PT - 03/26/2024 3:[address] [facility] Physical Medicine and Rehabilitation Physical Therapy Progress Note Patient: Emerald [facility] Record Number: [id number] Date of : 1935 Age: [age] year old Recommendations: Discharge PT Discharge Recommendations: Patient would benefit from multidisciplinary therapy This recommendation is made due to ongoing PT functional needs: address functional deficits SUBJECTIVE: I don't know when asked if her name is Marybeth. Pain Assessment: Pain Assessment Pain Scale/Observation: (Pt with no pain behaviors) PRECAUTIONS: Activity Level: Activity as Tolerated OBJECTIVE: At start of therapy session, patient found in bedside chair with family present. General Appearance: NAD Mental Status/Cognition: Orientation Level: Disoriented X4 (Pt knows name with yes/no questions, states birthday is 1971) Cognition: Confused;Poor attention or concentration Follow simple commands with increased cues. Mobility: A gait belt and non-slip socks were used for all out of bed activity this date. Bed Mobility: Supine to Sit: Activity Does Not Occur (Pt sitting in bedside chair upon entrance and exit) Sit to Supine: Activity Does Not Occur Transfers: Sit to Stand: Moderate Assistance;X 2 (progressing to Minimal Assistance x2 then Moderate Assistance x1; 4 stands completed this date) Stand to Sit: Minimal Assistance;Moderate Assistance;X 2 (gravity assisted) Transfer Device: Gait belt;Walker-2 Wheeled Gait: Distance Ambulated (ft): (unable due to incontinence w/every time standing) Balance: Balance Scales/Tests Used: Sitting: Static/Dynamic;Standing: Static/Dynamic Sitting - Static: Fair Sitting - Dynamic: Fair - Standing - Static: Fair -;Poor + Standing - Dynamic: Not tested ACTIVITY TOLERANCE: Patient's activity tolerance: limited by stress incontinence TREATMENT/INTERVENTIONS: transfer training with multiple sit to stands, standing balance with and without device Modified [place]: Current Modified Joel Score: 5 AM-PAC 6 Clicks Mobility Raw Score:: 7 EDUCATION: Patient not appropriate for education at this time secondary to mental status. ASSESSMENT: Patient would benefit from additional Physical Therapy sessions to achieve the following functionalgoals to enhance independence. Short Term Goals: Goal Formation With patient Patient will perform bed mobility with moderate assist of 1 (Upgrade /) Patient will transfer sit to/from stand with moderate assist and of 1 (Upgrade 03/26) Patient will demonstrate sitting balance of Fair minus x 5 minutes Patient to ambulate 25 ft with moderate assist of 1. (Upgrade 03/26) Shelter Goal(s): Patient to discharge to appropriate next level of inpatient care. INFORMED CONSENT TO TREATMENT: Plan of care not given secondary to cognitive impairment Equipment Issued: none Plan: Patient continues to benefit from skilled therapy services. If patient is discharged from the facility, this note serves as a discharge summary if further physical therapy visits did not occur. Refer to filed flowsheet for further details. Following therapy session, patient left in patient bedside chair , with chair alarm on and positioned under patient's buttocks , with call light within reach. PROGRAMMER * Courtney Kern LSW - 03/26/2024 3:15 PM CST SOCIAL WORK PROGRESS NOTE Discharge Level of Care: pending referrals to [facility] and [facility]. Barriers to D/C: has sitter- needs to be sitter free prior to SNF acceptance Comment: SW will continue to follow for d/c planning- SNF placement. Courtney Kern DIRECT CARE PROVIDER, BALLISTIC EXPERT [phone] PROGRAMMER * Alvina Velez, GONZALES-ELECTRIC MOTOR REPAIR SUPERVISOR - 03/26/2024 2:17 PM CST Trauma Floor Progress Note Today's Date: 03/26/24 Admit Date: 03/13/2024 LOS: 10 History: Pt is a 88yo F BIBEMS after fall. Admitted to trauma ICU for management of polytrauma Injuries: - SDH (left, 7mm) - SAH - Hemorrhagic contusion (right temporal) - Right frontoparietal scalp laceration - Left frontal scalp contusion - ?grade II liver injury Interval History: 03/26: More alert, up to chair today. Continue therapies, SW for placement as able. 03/25: Patient arouses to verbal stimulation this morning, but drowsy. Up in chair this afternoon. Sitter at bedside. Seroquel stopped. Continue to encourage PO intake and will wean sitter as able. 03/24 Patient remains in lap belt this morning. Granddaughter at bedside reports patient more alert this morning. Ceftriaxone started for UTI; will switch to PO after 24-28 hours. Accuchecks changed to AC/HS and nursing instructed to cluster care, if possible so patient can rest through the night. Appreciate palliative recs. 03/23: SAVAGE JAY, pt remains w/ delirium requires waist belt restraint. Plan for updated therapy recs for dispo planning today. 03/22: SCOTT JAY, plan for updated PT/OT recs for dispo. MEDIA ASSISTANT for updated recs family able to provide patient's dentures 03/21 TTF from ICU overnight. Patient in lap belt andbilateral mittens. Will arouse to verbal stimulation, but drowsy. Encourage PO intake. Wean out of restraints 03/20: Patient extubated to MN yesterday, now stable on RA. Pt failed nursing swallow, if fails formal MEDIA ASSISTANT swallow, will need dobhoff placed. Plan to transfer to trauma floor today. 03/19: Overnight, all sedation turned off, however patient agitated and precedex restarted. AFVSS. Hgb this AM 7.7. Plan to discuss code status with family, perform SBT and possibly attempt to extubate today. 03/18: AFVSS off pressors. Required 1 unit pRBC overnight for hgb 6.8. Patient intubated PEEP 5 andFiO2 of 30. 03/17: AFVSS. NAEO. Pressors and sedation weaned down to 0. Patient remains on Peep of 5 and Fi02 of 30. Plan for SBT today. 03/16: Propofol replaced with Precedex to assist with agitation during sedation wean. Patient with hypotension to 60/30's, increased levophed from 0.03 to 1.5 max. 1L IVF given, stat labs ordered without any significant changes from previous. Trops mildly elevated, EKG with T wave inversions in anterolateral leads, troponins not increasing. Remains on low vent settings. Unchanged neuro exam. [place] continue current management, wean sedation and pressors as able. 03/15: VBG drawn following SBT (PSV 10/5, RR 14) likely lab error however pt placed back on volume control with improvement. Arterial line placed overnight for BP monitoring as pt intermittently hypotensive, requiring titration of levophed and IVF boluses. Per NSGY, repeat CTH without any new changes/concerns, no further neurosurgical intervention. Plan to pause sedation and trial SBT. Discussed possibility of re-intubation with family, family okay with intubation at this time, still DNR. 03/14: ENT/Face consulted for repair of complex scalp laceration. Will follow up CTA and Neurosurgery recommendations. Patient started on Levophed for MAP's 50's. Remains intubated, sedated with fentanyl and propofol, will wean as able. 03/13: Presented by air as level 1 trauma. Admitted to ICU int ubated/sedated with SDH, SAH. Neurosurgery consulted and CTA to be completed. 0.9% NaCl, 3 mL, q8h aspirin, 81 mg, QDAY atorvastatin, 20 mg, AT BEDTIME carvedilol, 25 mg, BID WC cefTRIAXone, 2 g, q24h enoxaparin, 30 mg, q12h lansoprazole (disintegrating), 15 mg, QDAY BEFORE BREAKFAST losartan, 25 mg, QDAY melatonin, 3 mg, AT BEDTIME polyethylene glycol 3350, 17 g, QDAY senna, 8.6 mg, QDAY tamsulosin, 0.4 mg, QDAY 0.9% NaCl, 1-10 mL, PRN acetaminophen, 650 mg, q4h PRN dextrose IV for hypoglycemia, 12.5 g, PRN Or dextrose IV for hypoglycemia, 25 g, PRN Or glucagon, 1 mg, PRN glucose (Diabetic Use) gel, , PRN labetalol, 5 mg, q4h PRN Or hydrALAZINE, 5 mg, q4h PRN Review of Systems Pertinent items are noted in HPI. Objective: Patient Vitals for the past 8 hrs: BP Pulse SpO2 03/26/24 0747 168/79 (!) 113 98 % Temp (24hrs), Av.2 ??F (36.8 ??C), Min:98.1 ??F (36.7 ??C), Max:98.3 ??F (36.8 ??C) Intake/Output Summary (Last 24 hours) at 03/26/2024 1418 Last data filed at 03/26/2024 0600 Gross per 24 hour Intake 240 ml Output 1300 ml Net -1060 ml Diet: Minced/Moist (DYS2), thin liquids Last BM: 03/26 Activity: as tolerated WB Limitation: as tolerated General Appearance: alert, no distress Head: R scalp laceration intact, R facial ecchymosis Lungs: Normal repiratory effort without retractions Heart: Regular rate and rhythm without murmur Abdomen: Abdomen soft, non-distended without mass or tenderness Neuro: Sensation intact to touch in all extremities Extremities: ALVAREZ to command, WWP Data Review: CBC: Recent Labs Component Name 03/25/24 1032 03/23/24 1304 03/23/24 0215 WBC 9.1 11.4* 10.5 HGB 9.6* 8.5* 8.5* HCT 30.9* 26.8* 26.9* Electrolytes: Recent Labs Component Name 03/25/24 1032 03/22/24 0656 03/21/24 0212 03/20/24 0029 NA 143 143 136 138 CL 106 104 102 105 CO2 26 22 28 26 BUN 18 16 16 16 CREATININE 0.71 0.88 0.99* 0.65 CALCIUM 8.7 8.8 8.1* 8.6 MAGNESIUM 2.3 - 2.1 2.3 Coags: Recent Labs Component Name 03/13/24 2209 03/11/24 1435 INR 1.1 1.0 PTT 23.3 - Assessment/Plan: Neuro: Acute post traumatic pain -Continue multimodal analgesia Small tentorial SDH, Bilateral sylvian SAH -NSGY consulted: no acute interventions -VTE ppx ok -can restart ASA 03/23 -no f/u needed TBI, Altered mental status -[place] following: - Fluctuating mental status. High risk given head trauma, limited mobility, disturbed sleep/wake cycle, pain, urinary retention - Stop Quetiapine given sedating effects - Recommend to focus on simple interventions. Keeping her active/awake during the day, blinds up. Avoid nocturnal disturbances - Activity apron during the day - On Ceftriaxone for presumed UTI. No culture obtained - melatonin QHS - sleep hygiene Psych: Dementia-chronic, Depression-chronic -Monet following: on no medications other than prozac for depression sx. Can hold prozac at this time. Will need PT/OT assessment once stabilized/extubated if expected to d/c back to her facility based on functional needs. - 03/23 Palliative consulted: - has history of sundowning, although not taking any medications - can start low dose quetiapine 12.5mg BID during hospitalizations to control agitation with plan to discontinue at discharge - continue to monitor - DC megestrol (no evidence of benefit and high risk of side effects) - please discontinue haldol IV (high risk of CV complications) and doses higher than 1mg should notbe used in elderly patients HEENT: R forehead laceration -ENT consulted: 03/14 s/p laceration repair with 5-0 fast - Recommend applying bacitracin to lacerations, abrasions, twice per day for 5 days then switch to petroleum ointment (Vaseline or similar) daily as needed to prevent crusting. - Activity: If not contraindicated by another service, recommend head elevated >30 degrees for 5-7 days to reduce swelling - Please page on discharge so we can do a wound check prior to discharge vs schedule outpatient follow up. Respiratory: COPD-chronic -stable on RA -IS for pulmonary toilet -OOB as able Cardiovascular: CAD with aortic mural thrombus/ulcer, HLD, HTN - 03/13 discharged from CCU; plan was to follow up with cardiology as outpatient with repeat imaging to see if ulcer has expanded in size - 03/17 TTE: EF ~65-70% - 03/15 EKG: SR with SVC, QTc 481 - holding ASA per NSGY - continue statin GI: Concern for Grade 2 liver injury, GERD-chronic, Dysphagia -Hgb 9.6(8.5) -MEDIA ASSISTANT for swallow: Recommend Minced&Moist/Dys2 -granddaughter reports has dentures but needs adhesive -Bowel regimen -Replace electrolytes daily as needed Endocrine: No acute issues Renal: Urinary retention -bladder scan/straight cath regimen Q4-6h -Monitor I/O -CrCL 63.5 Hematology: Acute blood loss anemia -Hgb 9.6(8.5) - transfusion history: - 03/18 1 unit PRBC -Transfuse for Hgb<7 Infectious Disease: UTI -WBC 9.1(11.4) - cultures: - 03/23 UA: 3+ LE; positive nitrite; > 100 WBC; +1 bacteria - 03/14 UA: negative for infection - antibiotics: - 03/24-03/29 Ceftriaxone - 03/13 Ancef Musculoskeletal: No acute issues PPX: SCDs, LVX PT/OT/ST: Recommend SNF placement Dispo: SNF placement for assistance with mobility and ADLs when able Alvina Velez, GONZALES-ELECTRIC MOTOR REPAIR SUPERVISOR 03/26/2024 2:18 PM PROGRAMMER Associated attestation - Cole Horton MD - 03/27/2024 2:46 PM VBA PROGRAMMER This note was not complete at the time of rounds. Please see my separate note from this date that links to this one. Thank you. * Cole Horton MD - 03/26/2024 1:06 PM CST Patient seen and examined with Resident and/ or nurse practitioner. Please see their note for further details. I confirm history, exam, assessment and plan except where it differs from mine. In addition I note: Interval history: No adverse events ON. Afebrile. Family history is non-contributory. Exam: Awake Remains out of restraints Tolerating diet Assessment/Plan: Supportive care for ICH, supportive care Local wound care for scalp laceration Liver laceration is stable Working on placement Please see resident's note for further details. 03/26/2024 1:06 PM Cole Horton MD PROGRAMMER * Carlos Heath, ROBOTICS TESTING TECHNICIAN-ELECTRIC MOTOR REPAIR SUPERVISOR - 03/26/2024 1:01 PM CST GERIATRIC MEDICINE FOLLOW UP NOTE 03/26/2024 1:01 PM Reason for Consult: Delirium Consulting Physician and Team: Trauma Acute Events: Grand daughter Crystal at bedside this morning Mental status better today Retaining urine requiring straight cath Up to chair Drank and ensure with breakfast Bowels moved this morning Subjective: Denied pain Breathing okay Comprehensive Geriatric Assessment: CONFUSION ASSESSMENT METHOD 1) Acute onset or fluctuating course: yes 2) Inattention: yes 3) Disorganized thinking: yes 4) Altered Level of Consciousness: No Level of Consciousness: Awake Delirium is suggested if criteria #1 & #2 are positive PLUS criteria #3 OR #4 Is deliirum suggested: yes but much better Current Meds: 0.9% NaCl 3 mL Intracatheter q8h aspirin 81 mg Oral QDAY atorvastatin 20 mg Oral AT BEDTIME carvedilol 25 mg Oral BID WC cefTRIAXone 2 g Intravenous q24h enoxaparin 30 mg Subcutaneous q12h lansoprazole (disintegrating) 15 mg Oral QDAY BEFORE BREAKFAST losartan 25 mg Oral QDAY melatonin 3 mg Oral AT BEDTIME polyethylene glycol 3350 17 g Oral QDAY senna 8.6 mg Oral QDAY tamsulosin 0.4 mg Oral QDAY OBJECTIVE Vitals: Patient Vitals for the past 6 hrs: Pulse BP 03/26/24 0747 (!) 113 168/79 Intake/Output Summary (Last 24 hours) at 03/26/2024 1301 Last data filed at 03/26/2024 0600 Gross per 24 hour Intake 240 ml Output 1300 ml Net -1060 ml Weight: Wt Readings from Last 2 Encounters: 03/19/24 87.8 kg (193 lb 9.6 oz) 03/12/24 65.1 kg (143 lb 8.3 oz) Physical Exam: General: NAD, pleasant frail appearing elderly woman HEENT: EOMI. PERRL Neck: No cervical lymphadenopathy Pulm: CTA-B. Cardio: RRR, S1S2 normal. No MRG Abdomen: Soft, NT, ND. BS x 4 normoactive Extremity: No edema Neuro: A & O x 2-2. Following commands. More awake and interactive. Skin: Warm and dry Labs: CBC: Recent Labs Component Name 03/25/24 1032 03/23/24 1304 03/23/24 0215 WBC 9.1 11.4* 10.5 HGB 9.6* 8.5* 8.5* BMP: Recent Labs Component Name 03/25/24 1032 03/22/24 0656 03/21/24 0212 NA 143 143 136 CL 106 104 102 CO2 26 22 28 BUN 18 16 16 CREATININE 0.71 0.88 0.99* Recent Labs Component Name 03/25/24 1032 03/22/24 0656 03/21/24 0212 03/20/24 0029 CALCIUM 8.7 8.8 8.1* 8.6 PHOS 3.2 - 3.0 2.9 LFT: Recent Labs Component Name 03/15/24 1626 03/13/24 2209 03/13/24 0936 03/12/24 0330 03/11/24 1435 PROT 4.4* 5.4* - - 6.0 ALB 2.1* 2.8* 2.8* - 3.0* ALKPHOS 44 57 - - 63 AST 12 16 - - 12 ALT 8 9 - - 8 - = values in this interval not displayed. Coagulation: Recent Labs Component Name 03/13/24 2209 03/11/24 1435 PT 13.9 12.9 INR 1.1 1.0 Cardiac markers: Recent Labs Component Name 03/15/24 1626 03/11/24 1435 BNP 50 189* Microbiology: Latest Reference Range & Units 03/23/24 18:27 Color UA Straw, Yellow Ramya ! Clarity UA Clear Cloudy ! Specific Bigelow UA 1.005 - 1.030 1.023 pH UA 5.0 - 8.0 pH 6.0 Protein UA Negative 1+ ! Blood UA Negative 1+ ! Ketone UA Negative Negative Leukocyte Esterase Negative 3+ ! Nitrite UA Negative Positive ! Glucose UA Negative Negative Bilirubin UA Negative Negative Urobilinogen UA Negative mg/dL 2.0 ! WBC UA None Seen, 0-5 /HPF >100 ! RBC UA None Seen, 0-2, 3-5 /HPF 6-10 ! Squamous Epithelial Cells UA None Seen, 0-2, 3-5 /HPF 0-2 Bacteria Urine None /HPF 1+ ! !: Data is abnormal Imaging: CXR Normal cardiomediastinal silhouette. Atherosclerotic aorta. No focal consolidation, pleural effusion, or pneumothorax. ASSESSMENT & RECOMMENDATIONS Delirium -Fluctuating mental status but much better today. High risk given head trauma, limited mobility, disturbed sleep/wake cycle, pain, urinary retention -Quetiapine stopped. More awake today -Recommend to focus on simple interventions. Keeping her active/awake during the day, blinds up. Avoid nocturnal disturbances. Up in chair -Activity apron during the day -On Ceftriaxone for presumed UTI. No culture obtained -Continue to focus on non pharmacological approach with mobilization and redirection for fluctuating mental status. OVerall much better today with this approach. Delirium Recommendations: Delirium is a morbid condition, associated with mortality. It's preventable. - daily CAM assessment - minimize tethers (eg re-assess need for Vasquez daily) - Miralax for prevention of constipation if on opioids - early mobilization - Avoid sedative hypnotics/anticholniergics. Avoid narcotics - Ensure adequate pain control. - Address sensory deficits. Vision and hearing - Provide orienting stimuli: Clock, calendar, minimal staff changes, light during the day, dark at night - please place the following orders in a nursing communication: up in chair with meals TID if activity orders allow blinds up and lights on in the AM. daily family visits Minimize nocturnal disturbances. Avoid unnecessary labs, VS, medications at night. Promote regular sleep/wake cycle Optimize nutritional status. Ensure supplements TID between meals if needed Urinary Retention -Retaining urine requiring straight cath. Should improve with mobilization -Flomax 0.4mg daily Monitor electrolytes QD, Replace K<4, Mg<2, Phos<3 Reviewed today's VS No labs today Thank you for this consult. Please call with questions. Geriatrics will continue to follow along with you. Please note, recommendations are not final until co-signed/attested by attending I have spent total 30 minutes caring for this patient, reviewing available labs, medications, coordinating care with staff, and discussing patient with family (Grand abhilash Caballero at bedside). Patient seen and discussed with attending, Dr. Negro Heath, ANP-, Geriatrics 03/26/2024 1:01 PM Pager: [phone] PROGRAMMER Associated attestation - Britta Tom MD - 03/27/2024 9:07 AM VBA PROGRAMMER I saw and examined the patient with the resident and/or medical student and/or nurse practitioner 03/26/24. I have verified all details of the note and agree with his/her documentation with additions and modifications as listed in my separate note. Please refer to the resident's, medical student's, or nurse practitioner's note for plans of active problems not discussed in this note. Seen with grand daughtercornell parker at bedside. She is more awake, reportedly attempted to color earlier. More conversational though confused and tangential. Continue bladder scanning and straight cath if retaining. Continue family support , reorientation startegies * Lorraine Mckenzie - 03/26/2024 12:12 PM CST I attempted follow up per request of pt's granddaughter. Staff was tending to pt and so I introduced myself to a family member I had not yet met. Though there are no immediate pastoral care needs at this time, pastoral care continues to remain available. [address] Lorraine Jonah 03/26/2024 12:13 PM PROGRAMMER * Jessica Marin, OT - 03/26/2024 11:[address] [facility] Physical Medicine and Rehabilitation Occupational Therapy Progress Note Patient: Emerald [facility] Record Number: [id number] Date of : 1935 Age: [age] year old PPE worn by staff: gloves;mask - procedural PPE worn by patient: gown - patient, clean;socks - clean Co-Treatment with PT due to level of skilled assist required, activity tolerance, cognition and need for re-direction Recommendations: Discharge OT Discharge Recommendations: Patient would benefit from multidisciplinary therapy This recommendation is made due to ongoing OT functional needs: address functional deficits Nurse and Physical Therapist contacted regarding patient status and/or discharge plan. Activity Level: as tolerated PRECAUTIONS: Weight Bearing Status: Lower Extremity;Upper Extremity Weight Bearing: WBAT SUBJECTIVE: Subjective: Pt smiling at therapists and more verbally communicative this date. Pt agreeable to therapy. Pain Assessment: Pain Assessment Pain Scale/Observation: (Pt with no pain behaviors) OBJECTIVE: At start of therapy session, patient found in patient bedside chair and with chair alarm on LDAs: Peripheral IV General Appearance: 88 year old female sitting in chair, in NAD. Pt's family present in room. Vitals: (*Assess the 3 levels of oxygen saturations both for room air and 02 unless rest on room air is 88% or less). Post Activity BP: -- HR: 71 Sp02 96% Room Air Observations: Pt without signs or symptoms of distress. Pt denies lightheadedness, dizziness, or shortness of breath. Mental Status/Cognition: Level of Consciousness-Adult: Responds to voice Orientation Level: Disoriented X4 (Pt knows name with yes/no questions, states birthday is 1971) Cognition: Confused;Poor attention or concentration Attention Span: Difficulty attending to directions Memory: Decreased halfway memory;Decreased short term memory Following Commands: Follows one step commands with repetition/cues (follows one step commands ~60% of time with max verbal cueing, repetition, and increased time) Safety Judgement: Decreased awareness of need for safety Awareness of Errors: Decreased awareness of deficits Problem Solving: Assistance required to generate solutions;Assistance required to identify errors made;Assistance required to implement solutions Mobility: a gait belt and non-slip socks were used for all out of bed activity this date. Bed Mobility: Supine to Sit: Activity Does Not Occur (Pt sitting in bedside chair upon entrance and exit) Sit to Supine: Activity Does Not Occur Transfers: Sit to Stand: Moderate Assistance;X 2 (progressing to Minimal Assistance x2 then Moderate Assistance x1; 4 stands completed this date) Stand to Sit: Minimal Assistance;Moderate Assistance;X 2 (gravity assisted) Transfer Device: Gait belt;Walker-2 Wheeled Functional Ambulation: Attempted ambulation, though patient incontinent of urine and requires assist with hygiene. Patientwould benefit from use of mesh underwear with pad for ambulation. Balance: Balance Scales/Tests Used: Sitting: Static/Dynamic;Standing: Static/Dynamic Sitting - Static: Fair Sitting - Dynamic: Fair - Standing - Static: Fair -;Poor +;With Both Upper Extremity's Support Standing - Dynamic: Not tested Activities of Daily Living: Oral Facial Hygiene: Set-up (to comb hair while sitting in the chair; pt benefits from simple, one step commands brush you hair ) Upper Body Dressing: Minimal Assistance (to doff/don gown while sitting in the chair) Lower Body Dressing: Maximal Assistance (to doff/don 2 pairs of socks. Patient attempts to four figure sit and doff sock but unable to sequence task this date.) Toileting: (Patient incontinent of urine on each of the 4 stands. Max Assist provided for jarrett and LE hygiene) ACTIVITY TOLERANCE: Activity Tolerance: Requires rest breaks Modified Joel: Current Modified [place] Score: 5 AM-PAC 6 Clicks Daily Activity Raw Score:: 10 TREATMENT/INTERVENTIONS: ADL training Functional transfer training Safety awareness EDUCATION: While performing OT, Patient was instructed in:functional mobility training, self-care training, safety awareness/fall precautions , discharge planning, use of call light Presented to patient who demonstrates Questionable understanding of instructions given. INFORMED CONSENT TO TREATMENT: Plan of care is discussed but patient with questionable understanding. ASSESSMENT: Patient continues to benefit from skilled Occupational Therapy to achieve the following functional goals. Short Term Goals: Goal Formation With patient/family Patient will perform grooming at edge of bed and with stand by assist Patient will perform upper extremity dressing with minimal assist Patient will perform supine to/from sit with maximal assist Patient will transfer sit to stand with maximal assist Direct Care Staffer Goal(s): Patient to discharge to appropriate next level of inpatient care Plan: Patient continues to benefit from skilled therapy services., Continue with goals as established. If patient is discharged from the facility, this note serves as a discharge summary if further occupational therapy visits did not occur. Refer to filed flowsheet for further details. Following therapy session, patient left in patient bedside chair without purewick, with chair alarmon and positioned under patient's buttocks , with call light within reach, with RNTish aware, with therapy cues visible on white board, and family re-entering room . PROGRAMMER * Tish Mireles RN - 03/26/2024 9:43 AM CST Problem: Safety related to restraint use Goal: Absence of injury while restrained Outcome: Progressing Problem: Skin Integrity Goal: Skin integrity is maintained or improved Outcome: Progressing Problem: Impaired Gas Exchange Goal: Resp rate/effort will be within specified limits Outcome: Progressing Problem: Mobility Goal: Patient's mobility/activity will be maintained as optimum level for age, diagnosis and physical limitations Outcome: Progressing Goal: Continuum of care needs are further met through referral to outpatient services when appropriate. Outcome: Progressing Goal: Patient reports the ability to perform Activities of Daily Living. Outcome: Progressing Problem: Fall Risk Goal: Fall risk and fall related injury risk are minimized (interventions related to the fall risk can be found in the flowsheet documentation) Outcome: Progressing Problem: Pain/Discomfort Goal: Patient exhibits reduced pain/discomfort as evidenced by pain scores Outcome: Progressing Goal: Patient uses pharmacological and non-pharmacological pain management strategies. Outcome: Progressing Goal: Patient verbalizes acceptable level of pain relief and ability to engage in desired activity. Outcome: Progressing Problem: Potential for Urinary Catheter-Associated Infection Goal: Signs and Symptoms of urinary catheter-associated infection are avoided Outcome: Progressing Goal: Normal urinary patterns are established within parameters of age and disease process Outcome: Progressing Problem: Risk for Violence: Self-Directed or Other Directed Description: Diagnosis: Risk for self-directed Violence or Risk for Directed Violence Risk Factors: Biochemical/neurologic imbalances, impulsivity, manic excitement, psychotic symptomatology, rage reaction, restlessness Possibly Evidenced By: agitated behaviors, delusional thinking, hallucinations, loud/threatening/profane speech, poor impulse control, provocative behaviors, verbal threats against others, verbal threats against self Goal: Patient will verbalize control of feelings. Outcome: Progressing Goal: Patient will respond to interventions when potential or actual loss of control occurs. Outcome: Progressing Goal: Patient will refrain from provoking others to physical harm. Outcome: Progressing Goal: Patient will display nonviolent behaviors toward others in the hospital, with the aid of medications and nursing interventions. Outcome: Progressing Goal: Patient will seek help when experiencing aggressive impulses. Outcome: Progressing Goal: Patient will refrain from verbal threats and loud, profrane language toward others. Outcome: Progressing Goal: Patient will be safe and free from injury. Outcome: Progressing Problem: Transfers Goal: STG - Patient to transfer to and from sit to supine Outcome: Progressing Problem: Swallowing Goal: LTG - Patient will tolerate the least restrictive diet consistency to allow for safe consumption of daily meals Outcome: Progressing Goal: STG - Patient will tolerate recommended food and liquid consistencies without clinical signs and symptoms of aspiration Outcome: Progressing Problem: Restraint Safety Goal: Free from restraint(s) Description: INTERVENTIONS: Outcome: Progressing Goal: Remains free of injury from restraints Description: INTERVENTIONS: Outcome: Progressing Problem: Skin/Tissue Integrity - Adult Goal: Skin integrity remains intact Description: INTERVENTIONS: Outcome: Progressing Goal: Incisions, wounds, or drain sites healing without S/S of infection Description: INFECTIONS: Outcome: Progressing Goal: Oral mucous membranes remain intact Description: INTERVENTIONS: Outcome: Progressing Problem: Musculoskeletal - Adult Goal: Return mobility to safest level of function Description: INTERVENTIONS: Outcome: Progressing Goal: Maintain proper alignment of affected body part Description: INTERVENTIONS: Outcome: Progressing Goal: Return ADL status to a safe level of function Description: INTERVENTIONS: Outcome: Progressing Problem: Coping Goal: Patient/Healthcare Agent able to verbalize concerns and demonstrate effective coping strategies Description: INTERVENTIONS Outcome: Progressing Problem: Behavior Goal: Pt/Family maintain appropriate behavior and adhere to behavioral management agreement, if implemented Description: INTERVENTIONS Outcome: Progressing Problem: Neurosensory - Adult Goal: Achieves stable or improved neurological status Description: INTERVENTIONS Outcome: Progressing Goal: Remains free of injury related to seizures activity Description: INTERVENTIONS: Outcome: Progressing Goal: Achieves maximal functionality and self care Description: INTERVENTIONS: Outcome: Progressing Problem: Respiratory - Adult Goal: Achieves optimal ventilation and oxygenation Description: INTERVENTIONS: Outcome: Progressing Problem: Cardiovascular - Adult Goal: Maintains optimal cardiac output and hemodynamic stability Description: INTERVENTIONS: Outcome: Progressing Goal: Absence of cardiac dysrhythmias or at baseline Description: INTERVENTIONS: Outcome: Progressing Problem: Gastrointestinal - Adult Goal: Minimal or absence of nausea and vomiting Description: INTERVENTIONS: Outcome: Progressing Goal: Maintains or returns to baseline bowel function Description: INTERVENTIONS: Outcome: Progressing Goal: Maintains adequate nutritional intake Description: INTERVENTIONS: Outcome: Progressing Problem: Genitourinary - Adult Goal: Absence of urinary retention Description: INTERVENTIONS: Outcome: Progressing Goal: Urinary catheter remains patent Description: INTERVENTIONS: Outcome: Progressing Problem: Infection - Adult Goal: Infections are decreased or avoided Description: INTERVENTIONS: Outcome: Progressing Problem: Metabolic/Fluid and Electrolytes - Adult Goal: Electrolytes maintained within normal limits Description: INTERVENTIONS: Outcome: Progressing Goal: Hemodynamic stability and optimal renal function maintained Description: INTERVENTIONS: Outcome: Progressing Goal: Glucose maintained within prescribed range Description: INTERVENTIONS: Outcome: Progressing Problem: Hematologic - Adult Goal: Maintains hematologic stability Description: INTERVENTIONS: Outcome: Progressing Problem: Anxiety Goal: Will report anxiety at manageable levels Description: INTERVENTIONS Outcome: Progressing Problem: Decision Making Goal: Patient/Healthcare Agent able to effectively weigh alternatives and participate in decision making related to treatment and care. Description: INTERVENTIONS Outcome: Progressing PROGRAMMER * Bethanie Benitez, ROBOTICS TESTING TECHNICIAN-ELECTRIC MOTOR REPAIR SUPERVISOR - 03/25/2024 4:14 PM CST Admit Date: 03/13/2024 Hospital day 10 Subjective: drowsy HPI: Pt is a 88yo F BIBEMS after fall. Admitted to trauma ICU for management of polytrauma Injuries: - SDH (left, 7mm) - SAH - Hemorrhagic contusion (right temporal) - Right frontoparietal scalp laceration - Left frontal scalp contusion - ?grade II liver injury Interval History: Patient arouses to verbal stimulation this morning, but drowsy. Up in chair this afternoon. Sitter at bedside. Seroquel stopped. Continue to encourage PO intake and will wean sitteras able. 03/24 Patient remains in lap belt this morning. Granddaughter at bedside reports patient more alert this morning. Ceftriaxone started for UTI; will switch to PO after 24-28 hours. Accuchecks changed to AC/HS and nursing instructed to cluster care, if possible so patient can rest through the night. Appreciate palliative recs. 03/23: SAVAGE JAY, pt remains w/ delirium requires waist belt restraint. Plan for updated therapy recs for dispo planning today. 03/22: SCOTT JAY, plan for updated PT/OT recs for dispo. MEDIA ASSISTANT for updated recs family able to provide patient's dentures 03/21 TTF from ICU overnight. Patient in lap belt andbilateral mittens. Will arouse to verbal stimulation, but drowsy. Encourage PO intake. Wean out of restraints 03/20: Patient extubated to [place] yesterday, now stable on RA. Pt failed nursing swallow, if fails formal MEDIA ASSISTANT swallow, will need dobhoff placed. Plan to transfer to trauma floor today. 03/19: Overnight, all sedation turned off, however patient agitated and precedex restarted. AFVSS. Hgb this AM 7.7. Plan to discuss code status with family, perform SBT and possibly attempt to extubate today. 03/18: AFVSS off pressors. Required 1 unit pRBC overnight for hgb 6.8. Patient intubated PEEP 5 andFiO2 of 30. 03/17: AFVSS. NAEO. Pressors and sedation weaned down to 0. Patient remains on Peep of 5 and Fi02 of 30. Plan for SBT today. 03/16: Propofol replaced with Precedex to assist with agitation during sedation wean. Patient with hypotension to 60/30's, increased levophed from 0.03 to 1.5 max. 1L IVF given, stat labs ordered without any significant changes from previous. Trops mildly elevated, EKG with T wave inversions in anterolateral leads, troponins not increasing. Remains on low vent settings. Unchanged neuro exam. [place] continue current management, wean sedation and pressors as able. 03/15: VBG drawn following SBT (PSV 10/5, RR 14) likely lab error however pt placed back on volume control with improvement. Arterial line placed overnight for BP monitoring as pt intermittently hypotensive, requiring titration of levophed and IVF boluses. Per NSGY, repeat CTH without any new changes/concerns, no further neurosurgical intervention. Plan to pause sedation and trial SBT. Discussed possibility of re-intubation with family, family okay with intubation at this time, still DNR. 03/14: ENT/Face consulted for repair of complex scalp laceration. Will follow up CTA and Neurosurgery recommendations. Patient started on Levophed for MAP's 50's. Remains intubated, sedated with fentanyl and propofol, will wean as able. 03/13: Presented by air as level 1 trauma. Admitted to ICU int ubated/sedated with SDH, SAH. Neurosurgery consulted and CTA to be completed. Current Facility-Administered Medications Medication Dose Route Frequency Provider Last Rate Last Admin 0.9% NaCl injection 3 mL 3 mL Intracatheter q8h Sanchez Nielson MD 3 mL at 03/25/24 1257 And 0.9% NaCl injection 1-10 mL 1-10 mL Intracatheter PRN Sanchez Nielson MD acetaminophen (Tylenol) tablet 650 mg 650 mg Oral q4h PRN Bethanie Benitez APRN-CNP aspirin chew tablet 81 mg 81 mg Oral QDAY Dian Valera APRN-ELECTRIC MOTOR REPAIR SUPERVISOR 81 mg at 03/25/24 1106 atorvastatin (Lipitor) tablet 20 mg 20 mg Oral AT BEDTIME Lennie Anna MD 20 mg at 03/24/24 2155 carvedilol (Coreg) tablet 25 mg 25 mg Oral BID Dian Valera APRN-ELECTRIC MOTOR REPAIR SUPERVISOR 25 mg at 03/25/24 1106 cefTRIAXone (Rocephin) syringe 2,000 mg 2 g Intravenous q24h Bethanie Benitez APRN-ELECTRIC MOTOR REPAIR SUPERVISOR 2,000 mg at 03/25/24 0719 dextrose IV 12.5 g 12.5 g Intravenous PRN Eddy Samson MD 12.5 g at 03/19/24 1820 Or dextrose IV 25 g 25 g Intravenous PRN Eddy Samson MD Or glucagon (Glucagen) injection 1 mg 1 mg Subcutaneous PRN Eddy Samson MD enoxaparin (Lovenox) injection 30 mg 30 mg Subcutaneous q12h Gillian Cornejo DO 30 mg at 03/25/24 1106 glucose (Diabetic Use) oral gel Oral PRN Eddy Samson MD labetalol (Normodyne; Trandate) injection 5 mg 5 mg Intravenous q4h PRN Dian Valera APRN-CNP Or hydrALAZINE (Apresoline) injection 5 mg 5 mg Intravenous q4h PRN Dian Valera APRN-CNP lansoprazole (disintegrating) (Prevacid Solutab) tablet 15 mg 15 mg Oral QDAY BEFORE BREAKFAST Bethanie Benitez APRN-CNP 15 mg at 03/25/24 0719 losartan (Cozaar) tablet 25 mg 25 mg Oral QDAY Dian Valera APRN-VENKATESH 25 mg at 03/25/24 1106 melatonin tablet 3 mg 3 mg Oral AT BEDTIME Alexander Mohamud MD 3 mg at 03/24/24 2155 polyethylene glycol 3350 (Miralax) packet 17 g 17 g Oral QDLennie Zendejas MD 17 g at 03/24/24 1040 senna (Senokot) tablet 8.6 mg 8.6 mg Oral QDLennie Zendejas MD 8.6 mg at 03/25/24 1106 Review of Systems TOMY patient confused and drowsy Objective: No data found. Temp (24hrs), Av.2 ??F (36.8 ??C), Min:97.7 ??F (36.5 ??C), Max:98.7 ??F (37.1 ??C) Date 03/24/24699 - 03/25/24 0603/25/24699 - 03/26/24 0659 Shift 8592-6523 3001-9701 24 Hour Total 9990-9769 0527-0483 24 Hour Total INTAKE P.O. 170 170 600 600 Shift Total(mL/kg) 170(1.9) 170(1.9) 600(6.8) 600(6.8) OUTPUT Urine(mL/kg/hr) 850(0.8) 700(0.7) 1550(0.7) Shift Total(mL/kg) 850(9.7) 700(8) 1550(17.7) NET -680 -700 -1380 600 600 Weight (kg) 87.8 87.8 87.8 87.8 87.8 87.8 Diet: minced/moist Last BM: 03/24 Activity: AAT WB Limitation: none PHYSICAL EXAM: General: arouses to verbal stimulation, no acute distress Neuro: GCS 13, AxO1 , sensation intact HEENT: R scalp laceration intact with R face ecchymosis(improving) Resp: breath sounds clear and equal bilaterally, no cough, on room air CV: RRR Abdomen: soft, non-tender, non-distended, bowel sounds present, lap belt present Extremities:moves all extremities spontaneously and without difficulty; 2+DP and radial pulse Skin: as above Psych: confused but redirectable and calm Data Review: CBC: Recent Labs Component Name 03/25/24 1032 03/23/24 1304 03/23/24 0215 WBC 9.1 11.4* 10.5 HGB 9.6* 8.5* 8.5* HCT 30.9* 26.8* 26.9* PLTCOUNT 365 271 284 BMP: Recent Labs Component Name 03/25/24 1032 03/22/24 0656 03/21/24 0212 POTASSIUM 4.3 4.4 4.2 CO2 26 22 28 BUN 18 16 16 CREATININE 0.71 0.88 0.99* GLUCOSE 101* 62* 150* CALCIUM 8.7 8.8 8.1* Assessment: Principal Problem: Subarachnoid bleed (HCC) Active Problems: Altered mental status, unspecified altered mental status type Fall, initial encounter Respiratory failure after trauma (HCC) Trauma Impaired mobility and ADLs Acute pain Subdural hematoma (HCC) Plan: Neuro: Small tentorial SDH Bilateral sylvian SAH - NSGY Consulted; recs below - ok for VTE ppx - can restart ASA / - would recommend sodium be kept ~140 over the first week post-injury - no outpatient follow up needed TBI Altered mental status:. - Monet consulted; recs below - Fluctuating mental status. High risk given head trauma, limited mobility, disturbed sleep/wake cycle, pain, urinary retention - Stop Quetiapine given sedating effects - Recommend to focus on simple interventions. Keeping her active/awake during the day, blinds up. Avoid nocturnal disturbances - Activity apron during the day - On Ceftriaxone for presumed UTI. No culture obtained - wean restraints as able - melatonin QHS - sleep hygiene Acute pain related to polytrauma - continue multimodal analgesia regimen Psych: Dementia-chronic Depression-chronic - Monet consulted; recs below - on no medications other than prozac for depression sx. Can hold prozac at this time. Will need PT/OT assessment once stabilized/extubated if expected to d/c back to her facility based on functionalneeds. - 03/23 palliative consulted; recs below - has history of sundowning, although not taking any medications - can start low dose quetiapine 12.5mg BID during hospitalizations to control agitation with plan to discontinue at discharge - continue to monitor - DC megestrol (no evidence of benefit and high risk of side effects) - please discontinue haldol IV (high risk of CV complications) and doses higher than 1mg should notbe used in elderly patients HEENT: R forehead laceration - ENT consulted; recs below - 03/14 s/p laceration repair with 5-0 fast - Recommend applying bacitracin to lacerations, abrasions, twice per day for 5 days then switch to petroleum ointment (Vaseline or similar) daily as needed to prevent crusting. - Activity: If not contraindicated by another service, recommend head elevated >30 degrees for 5-7 days to reduce swelling - Please page on discharge so we can do a wound check prior to discharge vs schedule outpatient follow up. Resp: COPD-chronic - on room air - encourage IS, pulmonary hygiene, OOBAT - CXR PRN CV: CAD with aortic mural thrombus/ulcer HLD HTN - 03/13 discharged from CCU; plan was to follow up with cardiology as outpatient with repeat imaging to see if ulcer has expanded in size - 03/17 TTE: EF ~65-70% - 03/15 EKG: SR with SVC, QTc 481 - holding ASA per NSGY - continue statin - vital signs every 8 hours GI: Concern for Grade 2 liver injury GERD-chronic Dysphagia - Hgb 9.6 from 8.5; no active bleeding - Diet: minced and moist - MEDIA ASSISTANT following - granddaughter states has dentures but just needs adhesive - SUP: prevacid - Last BM: 03/24 - miralax, senna /Renal: urinary retention - CrCl 64; UOP 1.6L over last 24 hours - voiding via straight cath - bladder scans every 4-6 hours; straight cath PRN - intake and output every 6 hours - replace electrolytes PRN - BMP PRN Heme: acute blood loss anemia - Hgb 9.6 from 8.5; no active bleeding - transfusion history: - 03/18 1 unit PRBC - transfuse for Hgb < 7 - CBC PRN ID: UTI - WBC 9.1 from 11.4; afebrile - cultures: - 03/23 UA: 3+ LE; positive nitrite; > 100 WBC; +1 bacteria - 03/14 UA: negative for infection - antibiotics: - 03/24-03/29 Ceftriaxone - 03/13 Ancef - imaging: none - cedillo culture and skin check for temp > 101.5 - CBC PRN MSK: decreased mobility and ADLs - PT/OT: SNF placement Skin: see HEENT - monitor for infection - local wound care Drains/lines/tubes: PIV PT/OT: recommending SNF placement; will need to be out of restraints and without sitter for 24 hours SW: assist with discharge dispo Barriers to discharge: PO intake, wean sitter, UTI Bethanie Benitez, ROBOTICS TESTING TECHNICIAN-ELECTRIC MOTOR REPAIR SUPERVISOR 03/25/2024 4:20 PM PROGRAMMER Associated attestation - Cole Horton MD - 03/27/2024 2:46 PM VBA PROGRAMMER This note was not complete at the time of rounds. Please see my separate note from this date that links to this one. Thank you. * Luther Langley SLP - 03/25/2024 3:[address] [facility] Physical Medicine and Rehabilitation Swallow Therapy Patient: [facility] Record Number: [id number] Date of : 1935 Age: [age] year old PPE: PPE worn by staff: gloves;mask - surgical PPE worn by patient: gown - patient, clean;socks - clean Impressions: Patient's swallow function reassessed at bedside. Patient completed trial of thin liquid, puree and mech soft consistencies. Patient with no difficulties noted. ST recommends continuing with Minced & Moist (5)/Mech Altered (DYS2) and thin liquids with medication crushed in puree. ST will follow patient to assess diet tolerance and upgrade diet as able. Recommendations: Diet Liquids Recommendation: Thin/ Thin (0) Diet Solids Recommendation: Minced & Moist (5)/Mech Altered (DYS2) Recommended Form of Meds: Crushed;With puree Compensatory Swallowing Strategies: 90 Degrees elevation for all oral intake;One to one assist withmeals;Alternate solids and liquids;Small bites/sips;Eat/Feed slowly Recommended Tests/Consults: Recommendations: Dysphagia Treatment Discharge Recommendations: TBD, due to acute medical status Speech therapy is recommended to improve swallow function. SUBJECTIVE: Patient Goals: No goals at this time Pain Assessment: No pain reported at this time OBJECTIVE: Level of Consciousness: alert and drowsy Orientation Level: oriented to person Positioning: Upright in bed Respiratory Status: room air Oral/Motor: Dentition: Edentulous Oral Hygiene : Xerostomic (dry mouth) Labial/Facial: Within Functional Limits Tongue: Within Functional Limits Vocal Quality: Within Functional Limits Velopharyngeal Status: Within Functional Limits Oral Motor Coordination: Impaired Controls Secretions: Yes Swallow Trials: Thin Liquid: Presentation: Straw-Assisted Oral: Delayed Initiation;Increased Anterior to Posterior Transit Pharyngeal: Within Functional LImits Puree: Presentation: Spoon-Assisted Oral: Delayed Initiation;Increased Anterior to Posterior Transit Pharyngeal: Within Functional LImits Assessment: Risk For Aspiration: Mild Primary Diagnostic Impression - Oral: Mild Primary Diagnostic Impression - Pharyngeal: Mild Education/Interventions: While performing MEDIA ASSISTANT, Patient and other:granddaughter was instructed in: goals of treatment , diet/liquid recommendations, swallowing strategies/aspiration precautions, and clinical signs of aspiration . Patient and other:granddaughter demonstrated Good understanding of instructions given. Physician and Nurse contacted regarding results of swallow evaluation and recommendations. Guidelines were posted on Pt's whiteboard and head of bed: yes INFORMED CONSENT TO TREATMENT: Plan of care including recommended therapy, goals and frequency, discussed with patient who understands and agrees to proceed. Short Term Goals Patient will tolerate recommended food and liquid consistencies without clinical signs of aspiration., Patient will understand clinical signs of aspiration and aspiration precautions., Patient will follow recommended swallowing strategies., Patient will demonstrate an improvement in oropharyngeal swallow function to warrant diet upgrade. Shelter Goal (s): Patient to be independent/baseline with functional mobility and self care and be able to safely discharge to prior level of care. Luther Perez M.A., [facility]-MEDIA ASSISTANT Speech Language Pathologist [phone] PROGRAMMER * Cole Horton MD - 03/25/2024 1:44 PM CST Patient seen and examined with Resident and/ or nurse practitioner. Please see their note for further details. I confirm history, exam, assessment and plan except where it differs from mine. In addition I note: Interval history: No adverse events ON. Afebrile. Family history is non-contributory. Exam: Awake Out of lap belt Tolerating diet Assessment/Plan: Supportive care for ICH, supportive care Local wound care for scalp placeration Liver laceration is stable Please see resident's note for further details. 03/25/2024 1:44 PM Cole Horton MD PROGRAMMER * Aysha Hayes RD/SARAIN - 03/25/2024 12:46 PM CST BRIEF SYNOPSIS: Nutrition Risk Identified but does not meet malnutrition criteria. Nutrition Plan: Current diet order: Minced & Moist (5) / Mech Altered (DYS2) +Ensure Plus High Protein (1.5 kcal) (350 kcal, 20 grams pro, 40 grams CHO) TID with meals Recommendation to Physician: N/A CLINICAL NUTRITION ASSESSMENT: Pt scheduled for reassessment. Pt has been extubated and transferred to the floor. PO diet advancedwith assistance of speech therapy. Pt is A&Ox1 per documentation with requirement of assistanceat meals. PO intake has been 30% x last 48hr per documentation. Appears inadequate. One supplement recorded as 100% intake per nursing documentation. RD to adjust supplement to provide >kcal/protein to aid in nutrition status. Weight hx, last BM, lab review, and med review details below. RD to continue to follow per protocol. Med/Surg History and Clinical Diagnoses: PMHx: 88 year old female with dementia for which she resides at a facility presenting as a level 1 trauma following a ground level fall Height: 170.2 cm (5' 7 ) BMI: Body mass index is 30.32 kg/m??. BMI Range: Obese Class 1 IBW/lb (Calculated) Female: 135 Recent Weights/Methods 03/12/2024 0400 03/13/2024 2150 03/14/2024 0349 03/15/2024 0400 03/16/2024 0342 03/17/2024 0045 03/18/2024 0400 03/19/2024 040 Weight: 65.1 kg (143 lb 8.3 oz) 68 kg (150 lb) 68 kg (150 lb) 68 kg (150 lb) 68 kg (150 lb) 83.4 kg(183 lb 14.4 oz) 83.6 kg (184 lb 3.2 oz) 87.8 kg (193 lb 9.6 oz) Weight Method : Bed scale Estimated Bed scale Bed scale Bed scale Bed scale Bed scale -- Weight trending up, possibly r/t fluid (net positive 3.8L) or faulty bedscale; monitoring. Current tube feeding order: d/c'd PO INTAKE Current diet order: Minced & Moist (5) / Mech Altered (DYS2) Nutrition recommendation: agree with current nutrition order Food Allergies: No known food allergies Last % Meal Taken: 10 % (03/25/241127) 48 hr PO INTAKE % Meal Taken Av % Min: 5 % Max: 70 % Current supplement order: Ensure High Protein TID Supplement(s) Consumed- Last 48 hours Date/Time Dietary Supplement Name Liquid Supplement Consumed (mL) Non-Liquid Supplement Consumed (%) 03/25/241127 Ensure High Protein 240 ML -- Pain affecting intake: No Chewing/Swallowing: Dysphagia GI Concerns: None Stools: Monitoring. Last BM Prior to Admission (Date): 03/22/24 Stools (# of stools): 1 (03/24/2451) Stool Appearance : Soft (03/24/2451) Stool Amount: Small (03/24/2451) Skin/Wound: Traumatic wound R forehead Estimated Needs: KCAL: [id number] (25-30) Protein (g): 73 (1.2) Fluid (ml): 1 ml/kcal Needs based on: Kcal/kg- (Comment) (IBW 61kg) Recommended Access Route: PO Labs: Reviewed. Recent Labs Component Name 03/25/24 1032 03/22/24 0656 03/21/24 0212 03/16/24 0137 03/15/24 1626 03/14/24 0749 03/13/24 2209 03/12/24 0330 03/11/24 1435 NA 143 143 136 - 131* - 132* - 140 POTASSIUM 4.3 4.4 4.2 - 3.8 - 4.8* - 4.1 CO2 26 22 28 - 21* - 23 - 24 BUN 18 16 16 - 26 - - 12 CREATININE 0.71 0.88 0.99* - 1.16* - 1.01* - 0.92 GLUCOSE 101* 62* 150* - 155* - 201* - 80 CALCIUM 8.7 8.8 8.1* - 7.6* - 8.2* - 8.7 ALT - - - - ALKPHOS - - - - AST - - - - EGFR 82* 64* 55* - 46* - 54* - 60* - = values in this interval not displayed. Recent Labs Component Name 03/25/24 1032 03/21/24 0212 03/20/24 0029 PHOS 3.2 3.0 2.9 Recent Labs Component Name 03/25/24 1032 03/21/24 0212 03/20/24 0029 MAGNESIUM 2.3 2.1 2.3 Recent Labs Component Name 03/25/24 1032 03/23/24 1304 03/23/24 0215 HGB 9.6* 8.5* 8.5* HCT 30.9* 26.8* 26.9* Recent Labs Component Name 03/14/24 0550 HGBA1C 5.0 No data found. MEDICATIONS FOR CURRENT ENCOUNTER: SCHEDULED MEDICATIONS: 0.9% NaCl injection 3 mL, Intracatheter, q8h aspirin chew tablet 81 mg, Oral, QDAY atorvastatin (Lipitor) tablet 20 mg, Oral, AT BEDTIME carvedilol (Coreg) tablet 25 mg, Oral, BID WC cefTRIAXone (Rocephin) syringe 2,000 mg, Intravenous, q24h enoxaparin (Lovenox) injection 30 mg, Subcutaneous, q12h lansoprazole (disintegrating) (Prevacid Solutab) tablet 15 mg, Oral, QDAY BEFORE BREAKFAST losartan (Cozaar) tablet 25 mg, Oral, QDAY melatonin tablet 3 mg, Oral, AT BEDTIME polyethylene glycol 3350 (Miralax) packet 17 g, Oral, QDAY senna (Senokot) tablet 8.6 mg, Oral, QDAY CONTINUOUS MEDICATIONS: PRN MEDICATIONS: Or Or Or 0.9% NaCl injection 1-10 mL, Intracatheter, PRN acetaminophen (Tylenol) tablet 650 mg, Oral, q4h PRN dextrose IV 12.5 g, Intravenous, PRN dextrose IV 25 g, Intravenous, PRN glucagon (Glucagen) injection 1 mg, Subcutaneous, PRN glucose (Diabetic Use) oral gel, Oral, PRN hydrALAZINE (Apresoline) injection 5 mg, Intravenous, q4h PRN labetalol (Normodyne; Trandate) injection 5 mg, Intravenous, q4h PRN Meds reviewed. Edema Generalized Edema: None (03/24/242029) RUE Edema: +1-mild pitting, slight indentation (03/22/242099) R Hand Edema: +1-mild pitting, slight indentation (03/22/242099) LUE Edema: +1-mild pitting, slight indentation (03/22/242099) L Hand Edema: +1-mild pitting, slight indentation (03/22/242099) Nutrition Diagnostic Statement: Inadequate oral intake related to:: decreased ability to consume ortolerate food and/or fluids due to illness as evidenced by:: oral intake insufficient to meet estimated requirements Nutrition Intervention: Meals and snacks:;Medical Food Supplements: Education needed: None Education Provided: Not appropriate (03/14/24 0700) Monitoring: PO intake, BM, labs, meds, weight Monitor per nutrition guidelines. Risk Level: High Evaluation: Nutrition Goal: Total intake will meet estimated nutrient needs Nutrition Goal Timeframe: Throughout stay Nutrition Goal Progress: Continue with current goal Ascom [id number] PROGRAMMER * Carlos Heath APRN-ELECTRIC MOTOR REPAIR SUPERVISOR - 03/25/2024 12:08 PM CST GERIATRIC MEDICINE FOLLOW UP NOTE 03/25/2024 12:08 PM Reason for Consult: Delirium Consulting Physician and Team: Trauma Acute Events: Grand daughter Crystal at bedside this morning Still delirious requiring intermittent restraints. Retaining urine requiring straight cath Up to chair per myself Subjective: Difficult to obtain ROS given AMS Denied pain Breathing okay Comprehensive Geriatric Assessment: CONFUSION ASSESSMENT METHOD 1) Acute onset or fluctuating course: yes 2) Inattention: yes 3) Disorganized thinking: yes 4) Altered Level of Consciousness: yes Level of Consciousness: Drowsy Delirium is suggested if criteria #1 & #2 are positive PLUS criteria #3 OR #4 Is deliirum suggested: yes Current Meds: 0.9% NaCl 3 mL Intracatheter q8h aspirin 81 mg Oral QDAY atorvastatin 20 mg Oral AT BEDTIME carvedilol 25 mg Oral BID WC cefTRIAXone 2 g Intravenous q24h enoxaparin 30 mg Subcutaneous q12h lansoprazole (disintegrating) 15 mg Oral QDAY BEFORE BREAKFAST losartan 25 mg Oral QDAY melatonin 3 mg Oral AT BEDTIME polyethylene glycol 3350 17 g Oral QDAY QUEtiapine 12.5 mg Oral AT BEDTIME senna 8.6 mg Oral QDAY OBJECTIVE Vitals: No data found. Intake/Output Summary (Last 24 hours) at 03/25/2024 1208 Last data filed at 03/25/2024 1128 Gross per 24 hour Intake 510 ml Output 700 ml Net -190 ml Weight: Wt Readings from Last 2 Encounters: 03/19/24 87.8 kg (193 lb 9.6 oz) 03/12/24 65.1 kg (143 lb 8.3 oz) Physical Exam: General: NAD, Drowsy pleasant frail appearing elderly woman HEENT: EOMI. PERRL Neck: No cervical lymphadenopathy Pulm: CTA-B. Cardio: RRR, S1S2 normal. No MRG Abdomen: Soft, NT, ND. BS x 4 normoactive Extremity: No edema Neuro: A & O x 1-2. Following commands. Stood up to chair and transferred with my assistance. Skin: Warm and dry Labs: CBC: Recent Labs Component Name 03/25/24 1032 03/23/24 1304 03/23/24 0215 WBC 9.1 11.4* 10.5 HGB 9.6* 8.5* 8.5* BMP: Recent Labs Component Name 03/25/24 1032 03/22/24 0656 03/21/24 0212 NA 143 143 136 CL 106 104 102 CO2 26 22 28 BUN 18 16 16 CREATININE 0.71 0.88 0.99* Recent Labs Component Name 03/25/24 1032 03/22/24 0656 03/21/24 0212 03/20/24 0029 CALCIUM 8.7 8.8 8.1* 8.6 PHOS 3.2 - 3.0 2.9 LFT: Recent Labs Component Name 03/15/24 1626 03/13/24 2209 03/13/24 0936 03/12/24 0330 03/11/24 1435 PROT 4.4* 5.4* - - 6.0 ALB 2.1* 2.8* 2.8* - 3.0* ALKPHOS 44 57 - - 63 AST 12 16 - - 12 ALT 8 9 - - 8 - = values in this interval not displayed. Coagulation: Recent Labs Component Name 03/13/24220803/11/24 1435 PT 13.9 12.9 INR 1.1 1.0 Cardiac markers: Recent Labs Component Name 03/15/24 1626 03/11/24 1435 BNP 50 189* Microbiology: Latest Reference Range & Units 03/23/24 18:27 Color UA Straw, Yellow Ramya ! Clarity UA Clear Cloudy ! Specific Bigelow UA 1.005 - 1.030 1.023 pH UA 5.0 - 8.0 pH 6.0 Protein UA Negative 1+ ! Blood UA Negative 1+ ! Ketone UA Negative Negative Leukocyte Esterase Negative 3+ ! Nitrite UA Negative Positive ! Glucose UA Negative Negative Bilirubin UA Negative Negative Urobilinogen UA Negative mg/dL 2.0 ! WBC UA None Seen, 0-5 /HPF >100 ! RBC UA None Seen, 0-2, 3-5 /HPF 6-10 ! Squamous Epithelial Cells UA None Seen, 0-2, 3-5 /HPF 0-2 Bacteria Urine None /HPF 1+ ! !: Data is abnormal Imaging: CXR Normal cardiomediastinal silhouette. Atherosclerotic aorta. No focal consolidation, pleural effusion, or pneumothorax. ASSESSMENT & RECOMMENDATIONS Delirium -Fluctuating mental status. High risk given head trauma, limited mobility, disturbed sleep/wake cycle, pain, urinary retention -Stop Quetiapine given sedating effects -Recommend to focus on simple interventions. Keeping her active/awake during the day, blinds up. Avoid nocturnal disturbances -Activity apron during the day -On Ceftriaxone for presumed UTI. No culture obtained Delirium Recommendations: Delirium is a morbid condition, associated with mortality. It's preventable. - daily CAM assessment - minimize tethers (eg re-assess need for Vasquez daily) - Miralax for prevention of constipation if on opioids - early mobilization - Avoid sedative hypnotics/anticholniergics. Avoid narcotics - Ensure adequate pain control. - Address sensory deficits. Vision and hearing - Provide orienting stimuli: Clock, calendar, minimal staff changes, light during the day, dark at night - please place the following orders in a nursing communication: up in chair with meals TID if activity orders allow blinds up and lights on in the AM. daily family visits Minimize nocturnal disturbances. Avoid unnecessary labs, VS, medications at night. Promote regular sleep/wake cycle Optimize nutritional status. Ensure supplements TID between meals if needed Urinary Retention -Retaining urine requiring straight cath. Should improve with mobilization -Start Flomax 0.4mg daily Monitor electrolytes QD, Replace K<4, Mg<2, Phos<3 Reviewed today's labs and VS Thank you for this consult. Please call with questions. Geriatrics will continue to follow along with you. Please note, recommendations are not final until co-signed/attested by attending I have spent total 45 minutes caring for this patient, reviewing available labs, medications, coordinating care with staff (Bethanie with trauma), mobilized to chair, and discussing patient with family (Grand daughter Ada at bedside). Patient seen and discussed with attending, Dr. Negro Heath, ANP-, Geriatrics 03/25/2024 12:08 PM Pager: [phone] PROGRAMMER Associated attestation - Britta Tom MD - 03/27/2024 9:04 AM VBA PROGRAMMER I saw and examined the patient with the resident and/or medical student and/or nurse practitioner on 03/25/24. I have verified all details of the note and agree with his/her documentation with additions and modifications as listed in my separate note. Please refer to the resident's, medical student's, or nurse practitioner's note for plans of active problems not discussed in this note. Delirious Supportive family. Would do well to d/c seroquel. Allow family to participate in reorientation and keeping her awake during the day. Coloring books and crayons, drawing , activity apron etc. Must get out of bed as much as possible, allow to sit in chair facing window and natural light. * Courtney Ortiz RN - 03/25/2024 10:39 AM CST Care Coordination Progress Note Expected Discharge Date: 03/27/2024 Discharge Plan: Working on getting restraints and lap belt discontinued today. Geriatric medicine to see patient today. SW following for SNF referrals. Family Support (Name and Phone): Extended Emergency Contact Information Primary Emergency Contact: Meri Henderson (POA) Mobile Relation: Daughter Preferred language: Icelandic V Belt Curer needed? No Secondary Emergency Contact: Shay Washington Mobile Relation: Daughter Preferred language: Icelandic V Belt Curer needed? No Guardian: MERI HENDERSON [employer] Mobile Relation: Daughter Transportation at Discharge: Family: READMISSION RISK SCORE is 16 at 10:40 AM 03/25/2024.: Name: Courtney Ortiz RN PROGRAMMER * Jessica Marin OT - 03/25/2024 10:31 AM CST [facility] Department of Physical Medicine & Rehabilitation Progress Note Patient: [facility] Record Number: [id number] Date of : 1935 Age: [age] year old 03/25/24 1031 Missed Visit Missed Visit Other (Comment) Per multidisciplinary rounds, patient is not currently alert enough to participate in skilled therapy session. Will continue to follow and attempt again at a later time/date. PROGRAMMER * Lorraine Henning PT - 03/25/2024 10:30 AM CST [facility] Department of Physical Medicine & Rehabilitation Progress Note Patient: [facility] Record Number: [id number] Date of : 1935 Age: [age] year old 03/25/24 1030 Missed Visit Missed Visit (Per rounding communication patient is not currently alert enough to participate in skilled therapies.) PT to continue to follow. Lorraine Garcia PT, DPT 03/25/2024 4:28 PM PROGRAMMER * Courtney Kern LSW - 03/25/2024 8:17 AM CST Received phone call from pt's granddaughter Crystal this a.m. providing a back up SNF preference [place], [place] with primary preference as [employer] [employer], [place]. Pt's lapbelt was removed this date but pt has a sitter. SW to place SNF referrals but pt not medically ready until sitter free for 24 hrs. SW will continue to follow for d/c planning. Courtney Kern DIRECT CARE PROVIDER, BALLISTIC EXPERT [phone] PROGRAMMER * Carina Tillman RN - 03/24/2024 1:21 PM CST Problem: Safety related to restraint use Goal: Absence of injury while restrained Outcome: Progressing Problem: Nutrient: Increased nutrient needs (specify) Goal: Intake percent from meals/snacks for this admission will be greater than: (specify) Outcome: Progressing Goal: Intake consistent with estimated calorie needs Outcome: Progressing Goal: Total intake will meet estimated nutrient needs Outcome: Progressing Goal: Enteral/parenteral nutrition prescription will be consistent with estimated needs Outcome: Progressing Goal: Fluid intake volume meets estimated needs Outcome: Progressing Goal: Food/nutrition information can be demonstrated Outcome: Progressing Goal: Growth velocity follows curve Outcome: Progressing Problem: Nutrient: Inadequate protein-energy intake Goal: Intake percent from meals/snacks for this admission will be greater than: (specify) Outcome: Progressing Goal: Intake consistent with estimated calorie needs Outcome: Progressing Goal: Total intake will meet estimated nutrient needs Outcome: Progressing Goal: Enteral/parenteral nutrition prescription will be consistent with estimated needs Outcome: Progressing Goal: Fluid intake volume meets estimated needs Outcome: Progressing Goal: Food/nutrition information can be demonstrated Outcome: Progressing Problem: Nutrient: Decreased nutrient needs (specify) Goal: Intake percent from meals/snacks for this admission will be greater than: (specify) Outcome: Progressing Goal: Intake consistent with estimated calorie needs Outcome: Progressing Goal: Total intake will meet estimated nutrient needs Outcome: Progressing Goal: Enteral/parenteral nutrition prescription will be consistent with estimated needs Outcome: Progressing Goal: Fluid intake volume meets estimated needs Outcome: Progressing Goal: Food/nutrition information can be demonstrated Outcome: Progressing Goal: Growth velocity follows curve Outcome: Progressing Problem: Nutrients: Imbalance of nutrients Goal: Intake percent from meals/snacks for this admission will be greater than: (specify) Outcome: Progressing Goal: Intake consistent with estimated calorie needs Outcome: Progressing Goal: Total intake will meet estimated nutrient needs Outcome: Progressing Goal: Enteral/parenteral nutrition prescription will be consistent with estimated needs Outcome: Progressing Goal: Fluid intake volume meets estimated needs Outcome: Progressing Goal: Food/nutrition information can be demonstrated Outcome: Progressing Goal: Growth velocity follows curve Outcome: Progressing Problem: Skin Integrity Goal: Skin integrity is maintained or improved Outcome: Progressing Problem: Pain/Discomfort Goal: Patient exhibits reduced pain/discomfort as evidenced by pain scores Outcome: Progressing Goal: Patient uses pharmacological and non-pharmacological pain management strategies. Outcome: Progressing Goal: Patient verbalizes acceptable level of pain relief and ability to engage in desired activity. Outcome: Progressing Problem: Potential for Urinary Catheter-Associated Infection Goal: Signs and Symptoms of urinary catheter-associated infection are avoided Outcome: Progressing Goal: Normal urinary patterns are established within parameters of age and disease process Outcome: Progressing Problem: Risk for Violence: Self-Directed or Other Directed Description: Diagnosis: Risk for self-directed Violence or Risk for Directed Violence Risk Factors: Biochemical/neurologic imbalances, impulsivity, manic excitement, psychotic symptomatology, rage reaction, restlessness Possibly Evidenced By: agitated behaviors, delusional thinking, hallucinations, loud/threatening/profane speech, poor impulse control, provocative behaviors, verbal threats against others, verbal threats against self Goal: Patient will verbalize control of feelings. Outcome: Progressing Goal: Patient will respond to interventions when potential or actual loss of control occurs. Outcome: Progressing Goal: Patient will refrain from provoking others to physical harm. Outcome: Progressing Goal: Patient will display nonviolent behaviors toward others in the hospital, with the aid of medications and nursing interventions. Outcome: Progressing Goal: Patient will seek help when experiencing aggressive impulses. Outcome: Progressing Goal: Patient will refrain from verbal threats and loud, profrane language toward others. Outcome: Progressing Goal: Patient will be safe and free from injury. Outcome: Progressing Problem: Swallowing Goal: LTG - Patient will tolerate the least restrictive diet consistency to allow for safe consumption of daily meals Outcome: Progressing Goal: STG - Patient will tolerate recommended food and liquid consistencies without clinical signs and symptoms of aspiration Outcome: Progressing Problem: Restraint Safety Goal: Free from restraint(s) Description: INTERVENTIONS: Outcome: Progressing Goal: Remains free of injury from restraints Description: INTERVENTIONS: Outcome: Progressing Problem: Skin/Tissue Integrity - Adult Goal: Skin integrity remains intact Description: INTERVENTIONS: Outcome: Progressing Goal: Incisions, wounds, or drain sites healing without S/S of infection Description: INFECTIONS: Outcome: Progressing Goal: Oral mucous membranes remain intact Description: INTERVENTIONS: Outcome: Progressing PROGRAMMER * Courtney Kern LSW - 03/24/2024 11:57 AM CST SOCIAL WORK PROGRESS NOTE Discharge Level of Care: SNF- recommendations from therapy Discharge Destination: SNF referrals to be made once pt is closer to being out of lapbelt Anticipated Mode of Transportation: ambulance Barriers to D/C: medical readiness, in lapbelt, SNF acceptance Comment: Spoke with Camilla the wholesale account executive at [facility] [phone] who confirmed that upon reviewing pt's medical updates, that pt is not appropriate yet at this time to returnto [facility] and will need SNF placement prior. Spoke with pt's granddaughter at bedside who requested a referral be made to [facility] [employer], [place] when appropriate. Also provided granddaughter with a SNF listing for backup choices. Courtney Kern DIRECT CARE PROVIDER, BALLISTIC EXPERT [phone] PROGRAMMER * Bethanie Benitez APRN-VENKATESH - 03/24/2024 11:44 AM CST Admit Date: 03/13/2024 Hospital day 9 Subjective: pt awake and alert HPI: Pt is a 88yo F BIBEMS after fall. Admitted to trauma ICU for management of polytrauma Injuries: - SDH (left, 7mm) - SAH - Hemorrhagic contusion (right temporal) - Right frontoparietal scalp laceration - Left frontal scalp contusion - ?grade II liver injury Interval History: Patient remains in lap belt this morning. Granddaughter at bedside reports patient more alert this morning. Ceftriaxone started for UTI; will switch to PO after 24-28 hours. Accuchecks changed to AC/HS and nursing instructed to cluster care, if possible so patient can rest throughthe night. Appreciate palliative recs. 03/23: SAVAGE JAY, pt remains w/ delirium requires waist belt restraint. Plan for updated therapy recs for dispo planning today. 03/22: SCOTT JAY, plan for updated PT/OT recs for dispo. MEDIA ASSISTANT for updated recs family able to provide patient's dentures 03/21 TTF from ICU overnight. Patient in lap belt andbilateral mittens. Will arouse to verbal stimulation, but drowsy. Encourage PO intake. Wean out of restraints 03/20: Patient extubated to MN yesterday, now stable on RA. Pt failed nursing swallow, if fails formal MEDIA ASSISTANT swallow, will need dobhoff placed. Plan to transfer to trauma floor today. 03/19: Overnight, all sedation turned off, however patient agitated and precedex restarted. AFVSS. Hgb this AM 7.7. Plan to discuss code status with family, perform SBT and possibly attempt to extubate today. 03/18: AFVSS off pressors. Required 1 unit pRBC overnight for hgb 6.8. Patient intubated PEEP 5 andFiO2 of 30. 03/17: AFVSS. NAEO. Pressors and sedation weaned down to 0. Patient remains on Peep of 5 and Fi02 of 30. Plan for SBT today. 03/16: Propofol replaced with Precedex to assist with agitation during sedation wean. Patient with hypotension to 60/30's, increased levophed from 0.03 to 1.5 max. 1L IVF given, stat labs ordered without any significant changes from previous. Trops mildly elevated, EKG with T wave inversions in anterolateral leads, troponins not increasing. Remains on low vent settings. Unchanged neuro exam. [place] continue current management, wean sedation and pressors as able. 03/15: VBG drawn following SBT (PSV 10/5, RR 14) likely lab error however pt placed back on volume control with improvement. Arterial line placed overnight for BP monitoring as pt intermittently hypotensive, requiring titration of levophed and IVF boluses. Per NSGY, repeat CTH without any new changes/concerns, no further neurosurgical intervention. Plan to pause sedation and trial SBT. Discussed possibility of re-intubation with family, family okay with intubation at this time, still DNR. 03/14: ENT/Face consulted for repair of complex scalp laceration. Will follow up CTA and Neurosurgery recommendations. Patient started on Levophed for MAP's 50's. Remains intubated, sedated with fentanyl and propofol, will wean as able. 03/13: Presented by air as level 1 trauma. Admitted to ICU int ubated/sedated with SDH, SAH. Neurosurgery consulted and CTA to be completed. Current Facility-Administered Medications Medication Dose Route Frequency Provider Last Rate Last Admin 0.9% NaCl injection 3 mL 3 mL Intracatheter q8h Sanchez Nielson MD 3 mL at 03/22/24 0510 And 0.9% NaCl injection 1-10 mL 1-10 mL Intracatheter PRN Sanchez Nielson MD acetaminophen (Tylenol) tablet 650 mg 650 mg Oral q4h PRN Bethanie Benitez APRN-CNP aspirin chew tablet 81 mg 81 mg Oral QDAY Dian Valera APRN-ELECTRIC MOTOR REPAIR SUPERVISOR 81 mg at 03/24/24 0930 atorvastatin (Lipitor) tablet 20 mg 20 mg Oral AT BEDTIME Lennie Anna MD 20 mg at 03/23/24 2101 carvedilol (Coreg) tablet 25 mg 25 mg Oral BID Dian Valera APRN-ELECTRIC MOTOR REPAIR SUPERVISOR 25 mg at 03/24/24 0930 cefTRIAXone (Rocephin) syringe 2,000 mg 2 g Intravenous q24h Bethanie Benitez APRN-CNP 2,000 mg at 03/24/24 1041 dextrose IV 12.5 g 12.5 g Intravenous PRN Eddy Samosn MD 12.5 g at 03/19/24 1820 Or dextrose IV 25 g 25 g Intravenous PRN Eddy Samson MD Or glucagon (Glucagen) injection 1 mg 1 mg Subcutaneous PRN Eddy Samson MD enoxaparin (Lovenox) injection 30 mg 30 mg Subcutaneous q12h Gillian Cornejo DO 30 mg at 03/24/24 0949 glucose (Diabetic Use) oral gel Oral PRN Eddy Samson MD labetalol (Normodyne; Trandate) injection 5 mg 5 mg Intravenous q4h PRN Dian Valera APRN-CNP Or hydrALAZINE (Apresoline) injection 5 mg 5 mg Intravenous q4h PRN Dian Valera APRN-CNP lansoprazole (disintegrating) (Prevacid Solutab) tablet 15 mg 15 mg Oral QDAY BEFORE BREAKFAST Bethanie Benitez APRN-CNP 15 mg at 03/24/24 0500 losartan (Cozaar) tablet 25 mg 25 mg Oral QDAY Dian Valera APRN-CNP 25 mg at 03/24/24 0949 melatonin tablet 3 mg 3 mg Oral AT BEDTIME Alexander Mohamud MD 3 mg at 03/23/24 2101 polyethylene glycol 3350 (Miralax) packet 17 g 17 g Oral QDAY Lennie Anna MD 17 g at 03/24/24 1040 QUEtiapine (SEROquel) tablet 12.5 mg 12.5 mg Oral bid Bethanie Benitez APRN-CNP 12.5 mg at 03/24/24 0930 senna (Senokot) tablet 8.6 mg 8.6 mg Oral QDLennie Zendejas MD 8.6 mg at 03/24/24 0930 Review of Systems TOMY patient confused and drowsy Objective: Patient Vitals for the past 8 hrs: BP Temp Temp src Pulse Resp SpO2 03/24/24 0419 171/90 98.5 ??F (36.9 ??C) Axillary 100 16 96 % Temp (24hrs), Av.9 ??F (36.6 ??C), Min:97.4 ??F (36.3 ??C), Max:98.5 ??F (36.9 ??C) Date 03/23/24 07 - 03/24/24 0659 03/24/24 07 - 03/25/24 0659 Shift [id number] 24 Hour Total 2756-5131 5972-2133 24 Hour Total INTAKE P.O. 120 120 Shift Total(mL/kg) 120(1.4) 120(1.4) OUTPUT Urine(mL/kg/hr) 400(0.4) 825(0.8) 1225(0.6) Shift Total(mL/kg) 400(4.6) 825(9.4) 1225(13.9) NET -280 -196 -1106 Weight (kg) 87.8 87.8 87.8 87.8 87.8 87.8 Diet: minced/moist Last BM: 03/24 Activity: AAT WB Limitation: none PHYSICAL EXAM: General: awake, alert, confused Neuro: GCS 14, AxO1-2, sensation intact HEENT: R scalp laceration intact with R face ecchymosis(improving) Resp: breath sounds clear and equal bilaterally, no cough, on room air CV: RRR Abdomen: soft, non-tender, non-distended, bowel sounds present, lap belt present Extremities:moves all extremities spontaneously and without difficulty; 2+DP and radial pulse Skin: as above Psych: confused but redirectable and calm Data Review: CBC: Recent Labs Component Name 03/23/24 1304 03/23/24 0215 03/21/24 2340 WBC 11.4* 10.5 11.2* HGB 8.5* 8.5* 9.1* HCT 26.8* 26.9* 28.8* PLTCOUNT 271 284 265 BMP: Recent Labs Component Name 03/22/24 0656 03/21/24 02103/20/24 0029 POTASSIUM 4.4 4.2 4.7* CO2 22 28 26 BUN 16 16 16 CREATININE 0.88 0.99* 0.65 GLUCOSE 62* 150* 128* CALCIUM 8.8 8.1* 8.6 Assessment: Principal Problem: Subarachnoid bleed (HCC) Active Problems: Altered mental status, unspecified altered mental status type Fall, initial encounter Respiratory failure after trauma (HCC) Trauma Impaired mobility and ADLs Acute pain Subdural hematoma (HCC) Plan: Neuro: Small tentorial SDH Bilateral sylvian SAH - NSGY Consulted; recs below - ok for VTE ppx - can restart ASA 12/2 - would recommend sodium be kept ~140 over the first week post-injury - no outpatient follow up needed TBI Altered mental status:. - wean restraints as able - melatonin QHS - sleep hygiene Acute pain related to polytrauma - continue multimodal analgesia regimen - 03/23 palliative recs: - continue acetaminophen but consider change to 1g TID can be changed to PRN now - Do not restart tramadol at discharge - remove restrains to be able to discharge, please have her out of bed as much as possible as this can cause restlessness Psych: Dementia-chronic Depression-chronic - Monet consulted; recs below - on no medications other than prozac for depression sx. Can hold prozac at this time. Will need PT/OT assessment once stabilized/extubated if expected to d/c back to her facility based on functionalneeds. - 03/23 palliative consulted; recs below - has history of sundowning, although not taking any medications - can start low dose quetiapine 12.5mg BID during hospitalizations to control agitation with plan to discontinue at discharge - continue to monitor - DC megestrol (no evidence of benefit and high risk of side effects) - please discontinue haldol IV (high risk of CV complications) and doses higher than 1mg should notbe used in elderly patients HEENT: R forehead laceration - ENT consulted; recs below - 03/14 s/p laceration repair with 5-0 fast - Recommend applying bacitracin to lacerations, abrasions, twice per day for 5 days then switch to petroleum ointment (Vaseline or similar) daily as needed to prevent crusting. - Activity: If not contraindicated by another service, recommend head elevated >30 degrees for 5-7 days to reduce swelling - Please page on discharge so we can do a wound check prior to discharge vs schedule outpatient follow up. Resp: COPD-chronic - on room air - encourage IS, pulmonary hygiene, OOBAT - CXR PRN CV: CAD with aortic mural thrombus/ulcer HLD HTN - 03/13 discharged from CCU; plan was to follow up with cardiology as outpatient with repeat imaging to see if ulcer has expanded in size - 03/17 TTE: EF ~65-70% - 03/15 EKG: SR with SVC, QTc 481 - holding ASA per NSGY - continue statin - vital signs every 8 hours GI: Concern for Grade 2 liver injury GERD-chronic Dysphagia - 03/23 Hgb 8.5 from 8.5; no active bleeding - Diet: minced and moist - MEDIA ASSISTANT following - granddaughter states has dentures but just needs adhesive - SUP: prevacid - Last BM: 03/24 - miralax, senna /Renal: no active issues - CrCl 51; UOP 1.7L over last 24 hours - voiding via external female catheter - intake and output every 6 hours - replace electrolytes PRN - BMP PRN Heme: acute blood loss anemia - 03/23 Hgb 8.5 from 8.5; no active bleeding - transfusion history: - 03/18 1 unit PRBC - transfuse for Hgb < 7 - CBC PRN ID: UTI leukocytosis - 03/23 WBC 11.4 from 10.5; Tmax 99.1 - cultures: - 03/23 UA: 3+ LE; positive nitrite; > 100 WBC; +1 bacteria - 03/14 UA: negative for infection - antibiotics: - 03/24 Ceftriaxone - 03/13 Ancef - imaging: none - cedillo culture and skin check for temp > 101.5 - CBC PRN MSK: decreased mobility and ADLs - PT/OT: SNF placement Skin: see HEENT - monitor for infection - local wound care Drains/lines/tubes: PIV, lap belt PT/OT: recommending SNF placement SW: assist with discharge dispo Barriers to discharge: PO intake, wean out of restraints, UTI Bethanie Benitez, ROBOTICS TESTING TECHNICIAN-ELECTRIC MOTOR REPAIR SUPERVISOR 03/24/2024 11:59 AM PROGRAMMER Associated attestation - Cole Horton MD - 03/24/2024 1:48 PM VBA PROGRAMMER Patient seen and examined with Resident and/ or nurse practitioner. Please see their note for further details. I confirm history, exam, assessment and plan except where it differs from mine. In addition I note: Interval history: No adverse events ON. Afebrile. Family history is non-contributory. Exam: Awake Still with confusion but more alert today Requiring lap belt Assessment/Plan: Traumatic ICH -ike has completed -working on SNF placement Local wound care for scalp lacerations Liver laceration -grade II -hgb stable -no intervention Please see resident's note for further details. 03/24/2024 1:47 PM Cole Horton MD * Angelique Cortes MD - 03/23/2024 11:33 PM CST Palliative Care will sign off. Goals of care have been established and support regarding complex decision making achieved for the moment. Symptoms are controlled. Refer to today's note for recommendations. Please don't hesitate to contact us if new concerns arise or additional support is needed from our team. Angelique Cortes MD 03/23/2024 11:34 PM Palliative Care and Geriatrics Attending PROGRAMMER * Angelique Cortes MD - 03/23/2024 11:18 PM CST [facility] Palliative Care [facility] PALLIATIVE MEDICINE PROGRESS NOTE Emerald Villafana Age: [age] year old Date of : 1935 Date of Admission: 03/13/2024 Assessment 88 yo female from assisted living memory care unit, ambulatory, very active in social activities, able to follow a conversation for a few minutes and then gets tangential, with episodes of sundowningwith easy frustration but otherwise very sweet, FAST likely 6E. 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 Same day of discharge with 2 falls, after the initial fall evaluated by EMS without any evidence of abnormalities, but after the second fall evidence of bleeding from scalp and altered mental status. Intubated in the ED for GCS 7, hypotensive. Had evidence of active arterial hemorrhage from right forehead wound and had hemostatic sutures placed and evidence of SDH and bilateral SAH. At admission code status changed to DNR. Hospital admission with marked hypotension although improving and pressors able to be discontinuedand has now episodes of hypertension requiring medication adjustment. She was extubated on 03/19 and was able to pass the swallow evaluation and today has been eating. She remains restless but attention is preserved, indicating improvement of delirium. Today the fiance of granddaughter is at bedside and asks about therapy and if patient is getting out of bed Summary of Recommendations: Pain management: from fall and head trauma. - continue acetaminophen but consider change to 1g TID can be changed to PRN now - Do not restart tramadol at discharge - remove restrains to be able to discharge, please have her out of bed as much as possible as this can cause restlessness - is on seroquel HTN with aortic ulcer, currently hypotensive - continue carvedilol 25mg BID and losartan 25mg daily - monitor for orthostatic hypotension - continue ASA, atorvastatin for now given aortic ulcer Dementia with superimposed encephalopathy - has history of sundowning, although not taking any medications - can start low dose quetiapine 12.5mg BID during hospitalizations to control agitation with plan to discontinue at discharge - continue to monitor - DC megestrol (no evidence of benefit and high risk of side effects) - please discontinue haldol IV (high risk of CV complications) and doses higher than 1mg should notbe used in elderly patients Code status before consult: DNR - If Pulseless No CPR, No Shock Current code status: DNR, should be changed to DNR/DNI Decision maker: Healthcare POA (daughter) Stated Goals: To be comfortable and return home to be able to enjoy her life. Get out of the hospital New Events Restless, more attentive, able to take PO. Denies pain Decision making: Patient does not have decision making capacity currently as all of the following are not true 1) Patient appears to understand the decision options surrounding their condition. 2) Patient understands the risk and benefits of each option. 3) Patient has made a clear decision and can explain the reasoning for that decision 4) Patient has been consistent with medical providers and family about the decision Current Inpatient Medications Scheduled: 0.9% NaCl injection 3 mL, Intracatheter, q8h acetaminophen (Tylenol) tablet 1,000 mg, Oral, TID aspirin chew tablet 81 mg, Oral, QDAY atorvastatin (Lipitor) tablet 20 mg, Oral, AT BEDTIME carvedilol (Coreg) tablet 25 mg, Oral, BID WC enoxaparin (Lovenox) injection 30 mg, Subcutaneous, q12h lansoprazole (disintegrating) (Prevacid Solutab) tablet 15 mg, Oral, QDAY BEFORE BREAKFAST losartan (Cozaar) tablet 25 mg, Oral, QDAY melatonin tablet 3 mg, Oral, AT BEDTIME polyethylene glycol 3350 (Miralax) packet 17 g, Oral, QDAY senna (Senokot) tablet 8.6 mg, Oral, QDAY Continuous: PRN: Or Or Or 0.9% NaCl injection 1-10 mL, Intracatheter, PRN dextrose IV 12.5 g, Intravenous, PRN dextrose IV 25 g, Intravenous, PRN glucagon (Glucagen) injection 1 mg, Subcutaneous, PRN glucose (Diabetic Use) oral gel, Oral, PRN haloperidol lactate (Haldol) injection 2 mg, Intravenous, q8h PRN hydrALAZINE (Apresoline) injection 5 mg, Intravenous, q4h PRN labetalol (Normodyne; Trandate) injection 5 mg, Intravenous, q4h PRN Physical Exam Vitals: 03/23/24 0410 03/23/24 0755 03/23/24 1633 03/23/24 1958 BP: 163/78 122/63 117/69 110/50 Pulse: 95 104 75 82 Resp: 16 17 17 17 Temp: 97.5 ??F (36.4 ??C) 98.3 ??F (36.8 ??C) 97.4 ??F (36.3 ??C) 98.2 ??F (36.8 ??C) SpO2: 99% 100% 100% 93% Weight: Height: Exam: alert, pleasant, not able to maintain a conversation, smiles, does not appear in distress PERRL,EOMI, conjuctiva clear OP moist without exudate Neck: no LAD, or masses Resp: CTA no rales/wheeze, equal BS CV: RRR No murmur or gallop Abd: + BS, soft, NT/ND, no masses Ext: no edema in bilat LE, no pain to palpation, no external lesions DP palp bilat Skin: no ulcers callous or maceration Neuro: alert, oriented, coherent and appropriate speech, symmetrical strength, no abnormal movements, attention preserved. Muscskel: no synovitis in knees ankles, wrists or hands Labs I have personally reviewed lab results CBC: Recent Labs Component Name 03/23/24 1304 WBC 11.4* HGB 8.5* HCT 26.8* BMP: Recent Labs Component Name 03/22/24 0656 03/21/24 0212 POTASSIUM 4.4 4.2 NA 143 136 CL 104 102 CO2 22 28 CREATININE 0.88 0.99* BUN 16 16 CALCIUM 8.8 8.1* PHOS - 3.0 MAGNESIUM - 2.1 LFT: Recent Labs Component Name 03/15/24 1626 PROT 4.4* AST 12 ALT 8 ALKPHOS 44 TBILI 0.4 ALB 2.1* Recent Labs Component Name 03/22/24 0656 03/21/24 0212 CALCIUM 8.8 8.1* PHOS - 3.0 MAGNESIUM - 2.1 COAGULATION: Recent Labs Component Name 03/13/24 2209 PT 13.9 PTT 23.3 INR 1.1 THYROID:No results for input(s): TSH , T3 , T4 in the last 01563 hours. CARDIAC:No results for input(s): TROPONIN in the last 47353 hours. LIPASE: Recent Labs Component Name 03/13/24 220 LIPASE 14 Microbiology Results (past 5 days) No results found for this or any previous visit (from the past 124 hour(s)). Radiology Results - Past 24 Hours I have personally reviewed lab results No results found. Results for orders placed or performed during the hospital encounter of 03/13/24 EKG 12-LEAD Result Value Ref Range Ventricular Rate 76 BPM Atrial Rate 76 BPM P-R Interval 144 ms QRS Duration ms 76 ms Q-T Interval ms 428 ms QTC Calculation (Bezet) 481 ms Calculated P [place] 79 degrees Calculated R [place] 53 degrees Calculated T [place] -131 degrees Interpretation EKG SINUS RHYTHM WITH PREMATURE SUPRAVENTRICULAR COMPLEXES ST & T WAVE ABNORMALITY, CONSIDER INFERIOR ISCHEMIA ST & T WAVE ABNORMALITY, CONSIDER ANTEROLATERAL ISCHEMIA PROLONGED QT ABNORMAL ECG NO PREVIOUS ECGS AVAILABLE Confirmed by JOSE DAVID ALFARO MD ([id number]) on 03/17/2024 9:36:36 AM Thank you for this consult. Palliative will continue to follow but please contact us with additional or new questions. Recommendations were discussed with the team I personally spent critical care time directly and personally managing this patient. My critical care time included obtaining a history; examining the patient; reviewing studies including labs and imaging and using these to develop and adjust pt's treatment plan; recommending additional studies andtreatment plan, evaluation of patient???s response to treatment; evaluating recommendations with treatment team and discussing with the patient and family about current condition and severity of the disease. Angelique Cortes MD 03/23/2024 11:19 PM Palliative Care and Geriatrics Attending PROGRAMMER * Milagros Richard RN - 03/23/2024 10:59 PM CST Problem: Safety related to restraint use Goal: Absence of injury while restrained Outcome: Progressing Problem: Nutrient: Malnutrition Goal: Intake percent from meals/snacks for this admission will be greater than: (specify) Outcome: Progressing Problem: Pain/Discomfort Goal: Patient exhibits reduced pain/discomfort as evidenced by pain scores Outcome: Progressing Goal: Patient uses pharmacological and non-pharmacological pain management strategies. Outcome: Progressing PROGRAMMER * Mariam Small MSW - 03/23/2024 5:22 PM CST Social Work Progress Note Discharge Plan Disposition: [facility] Transportation: Transportation at discharge: Family Anticipated Discharge Date: 03/25/2024 Contacts: Comments: DENISE spoke to YANET Hall from [facility] [phone] to discuss dc plan. Current dc plan is for pt to return to [facility]. Isabel requested SW fax updated clinicals to [phone]. DENISE notified Isabel that pt's expected dc date is 03/25/24. DENISE will continue to follow until final dc. Name/Phone number: JOSE LUIS Castle [phone] PROGRAMMER * Carina Tillman RN - 03/23/2024 2:53 PM CST Problem: Safety related to restraint use Goal: Absence of injury while restrained Outcome: Progressing Problem: Nutrient: Increased nutrient needs (specify) Goal: Intake percent from meals/snacks for this admission will be greater than: (specify) Outcome: Progressing Goal: Intake consistent with estimated calorie needs Outcome: Progressing Goal: Total intake will meet estimated nutrient needs Outcome: Progressing Goal: Enteral/parenteral nutrition prescription will be consistent with estimated needs Outcome: Progressing Goal: Fluid intake volume meets estimated needs Outcome: Progressing Goal: Food/nutrition information can be demonstrated Outcome: Progressing Goal: Growth velocity follows curve Outcome: Progressing Problem: Nutrient: Malnutrition Goal: Intake percent from meals/snacks for this admission will be greater than: (specify) Outcome: Progressing Goal: Intake consistent with estimated calorie needs Outcome: Progressing Goal: Total intake will meet estimated nutrient needs Outcome: Progressing Goal: Enteral/parenteral nutrition prescription will be consistent with estimated needs Outcome: Progressing Goal: Fluid intake volume meets estimated needs Outcome: Progressing Goal: Food/nutrition information can be demonstrated Outcome: Progressing Goal: Growth velocity follows curve Outcome: Progressing Problem: Nutrient: Inadequate protein-energy intake Goal: Intake percent from meals/snacks for this admission will be greater than: (specify) Outcome: Progressing Goal: Intake consistent with estimated calorie needs Outcome: Progressing Goal: Total intake will meet estimated nutrient needs Outcome: Progressing Goal: Enteral/parenteral nutrition prescription will be consistent with estimated needs Outcome: Progressing Goal: Fluid intake volume meets estimated needs Outcome: Progressing Goal: Food/nutrition information can be demonstrated Outcome: Progressing Problem: Nutrient: Decreased nutrient needs (specify) Goal: Intake percent from meals/snacks for this admission will be greater than: (specify) Outcome: Progressing Goal: Intake consistent with estimated calorie needs Outcome: Progressing Goal: Total intake will meet estimated nutrient needs Outcome: Progressing Goal: Enteral/parenteral nutrition prescription will be consistent with estimated needs Outcome: Progressing Goal: Fluid intake volume meets estimated needs Outcome: Progressing Goal: Food/nutrition information can be demonstrated Outcome: Progressing Goal: Growth velocity follows curve Outcome: Progressing Problem: Nutrients: Imbalance of nutrients Goal: Intake percent from meals/snacks for this admission will be greater than: (specify) Outcome: Progressing Goal: Intake consistent with estimated calorie needs Outcome: Progressing Goal: Total intake will meet estimated nutrient needs Outcome: Progressing Goal: Enteral/parenteral nutrition prescription will be consistent with estimated needs Outcome: Progressing Goal: Fluid intake volume meets estimated needs Outcome: Progressing Goal: Food/nutrition information can be demonstrated Outcome: Progressing Goal: Growth velocity follows curve Outcome: Progressing Problem: Skin Integrity Goal: Skin integrity is maintained or improved Outcome: Progressing Problem: Impaired Gas Exchange Goal: Resp rate/effort will be within specified limits Outcome: Progressing Problem: Fall Risk Goal: Fall risk and fall related injury risk are minimized (interventions related to the fall risk can be found in the flowsheet documentation) Outcome: Progressing Problem: Pain/Discomfort Goal: Patient exhibits reduced pain/discomfort as evidenced by pain scores Outcome: Progressing Goal: Patient uses pharmacological and non-pharmacological pain management strategies. Outcome: Progressing Goal: Patient verbalizes acceptable level of pain relief and ability to engage in desired activity. Outcome: Progressing Problem: Potential for Urinary Catheter-Associated Infection Goal: Signs and Symptoms of urinary catheter-associated infection are avoided Outcome: Progressing Goal: Normal urinary patterns are established within parameters of age and disease process Outcome: Progressing Problem: Risk for Violence: Self-Directed or Other Directed Description: Diagnosis: Risk for self-directed Violence or Risk for Directed Violence Risk Factors: Biochemical/neurologic imbalances, impulsivity, manic excitement, psychotic symptomatology, rage reaction, restlessness Possibly Evidenced By: agitated behaviors, delusional thinking, hallucinations, loud/threatening/profane speech, poor impulse control, provocative behaviors, verbal threats against others, verbal threats against self Goal: Patient will verbalize control of feelings. Outcome: Progressing Goal: Patient will respond to interventions when potential or actual loss of control occurs. Outcome: Progressing Goal: Patient will refrain from provoking others to physical harm. Outcome: Progressing Goal: Patient will display nonviolent behaviors toward others in the hospital, with the aid of medications and nursing interventions. Outcome: Progressing Goal: Patient will seek help when experiencing aggressive impulses. Outcome: Progressing Goal: Patient will refrain from verbal threats and loud, profrane language toward others. Outcome: Progressing Goal: Patient will be safe and free from injury. Outcome: Progressing PROGRAMMER * Luther Langley SLP - 03/23/2024 2:[address] [facility] Physical Medicine and Rehabilitation Swallow Therapy Patient: [facility] Record Number: [id number] Date of : 1935 Age: [age] year old PPE: PPE worn by staff: gloves;mask - surgical PPE worn by patient: gown - patient, clean;socks - clean Impressions: Patient's swallow function reassessed at bedside. Patient completed trial of thin liquid, puree and mech soft consistencies. Patient demonstrated delayed initiation and piecemeal swallowbut no overt s/s of aspiration. MEDIA ASSISTANT utilized denture adhesive and attempted to place patient's dentures, however, dentures were unable to remain in place and had to be removed. ST recommends upgrading to Minced & Moist (5)/Mech Altered (DYS2) and thin liquids with medication crushed in puree. ST will follow patient to assess diet tolerance and upgrade diet as able. Recommendations: Diet Liquids Recommendation: Thin/ Thin (0) Diet Solids Recommendation: Minced & Moist (5)/Mech Altered (DYS2) Recommended Form of Meds: Crushed;With puree Compensatory Swallowing Strategies: 90 Degrees elevation for all oral intake;One to one assist withmeals;Alternate solids and liquids;Small bites/sips;Eat/Feed slowly Recommended Tests/Consults: Recommendations: Dysphagia Treatment Discharge Recommendations: TBD, due to acute medical status Speech therapy is recommended to improve swallow function. SUBJECTIVE: Patient Goals: No goals at this time Pain Assessment: No pain reported at this time OBJECTIVE: Level of Consciousness: alert and drowsy Orientation Level: oriented to person Positioning: Upright in bed Respiratory Status: room air Oral/Motor: Dentition: Edentulous Oral Hygiene : Xerostomic (dry mouth) Labial/Facial: Within Functional Limits Tongue: Within Functional Limits Vocal Quality: Within Functional Limits Velopharyngeal Status: Within Functional Limits Oral Motor Coordination: Impaired Controls Secretions: Yes Swallow Trials: Thin Liquid: Presentation: Straw-Assisted Oral: Delayed Initiation;Increased Anterior to Posterior Transit Pharyngeal: Within Functional LImits Puree: Presentation: Spoon-Assisted Oral: Delayed Initiation;Increased Anterior to Posterior Transit Pharyngeal: Within Functional LImits Assessment: Risk For Aspiration: Mild Primary Diagnostic Impression - Oral: Mild Primary Diagnostic Impression - Pharyngeal: Mild Education/Interventions: While performing MEDIA ASSISTANT, Patient and other:granddaughter was instructed in: goals of treatment , diet/liquid recommendations, swallowing strategies/aspiration precautions, and clinical signs of aspiration . Patient and other:granddaughter demonstrated Good understanding of instructions given. Physician and Nurse contacted regarding results of swallow evaluation and recommendations. Guidelines were posted on Pt's whiteboard and head of bed: yes INFORMED CONSENT TO TREATMENT: Plan of care including recommended therapy, goals and frequency, discussed with patient who understands and agrees to proceed. Short Term Goals Patient will tolerate recommended food and liquid consistencies without clinical signs of aspiration., Patient will understand clinical signs of aspiration and aspiration precautions., Patient will follow recommended swallowing strategies., Patient will demonstrate an improvement in oropharyngeal swallow function to warrant diet upgrade. Shelter Goal (s): Patient to be independent/baseline with functional mobility and self care and be able to safely discharge to prior level of care. Luther Perez M.A., CCC-MEDIA ASSISTANT Speech Language Pathologist [phone] PROGRAMMER * Annabella Puckett, PT - 03/23/2024 2:[address] [facility] Physical Medicine and Rehabilitation Physical Therapy Progress Note Patient: [facility] Record Number: [id number] Date of : 1935 Age: [age] year old PPE worn by staff: gloves;mask - procedural PPE worn by patient: gown - patient, clean;socks - clean Cotx w/ OT Jessica d/t assist levels and decreased activity tolerance Recommendations: Discharge PT Discharge Recommendations: Patient would benefit from multidisciplinary therapy This recommendation is made due to ongoing PT functional needs: address functional deficits Recommended Transportation Method: Stretcher/Ambulance SUBJECTIVE: Subjective: Patient agreeable to PT services. Pain Assessment: Pain Assessment Pain Scale/Observation: No/denies pain (no behaviors alluding to pain) PRECAUTIONS: Weight Bearing Status: (No WBing restrictions) Activity Level: Activity as Tolerated OBJECTIVE: At start of therapy session, patient found in bed General Appearance: Patient is an 88 year old female. No acute distress noted at PT entry. Family member at bedside. Vitals: (*Assess the 3 levels of oxygen saturations both for room air and 02 unless rest on room air is 88% or less). Rest BP: 118/51 (62) HR: 80 Sp02 100% Room Air Ex/Gait/Activity Without 02 BP: 94/58 (70) HR: 76 Sp02 99% Room Air Post Activity BP: 104/69 (81) HR: 100 Sp02 95% Room Air Observations: Patient tolerated sitting EOB w/ session focusing on trunk control, command following, and ADLs. Patient w/ L sided lean sitting EOB and required both tactile and physical cueing to achieve midline. Patient w/ L lateral neck flexion w/ rest and required tactile cueing for midline head positioning (+L sided muscle tightness). Patient performed sitting exercises at EOB w/ max cueing -notable global weakness. Mental Status/Cognition: Level of Consciousness-Adult: Responds to voice Orientation Level: (alerts to name) Cognition: Confused;Poor attention or concentration Mobility: A gait belt and non-slip socks were used for all out of bed activity this date. Bed Mobility: Rolling: Maximal Assistance to Right Supine to Sit: Maximum Assistance;X 2 with HOB in semi-fowlers position Sit to Supine: Maximum Assistance Transfers: Sit to Stand: Activity Does Not Occur (due to poor sitting balance, fatigue, and command follow impacting safety) Gait: Weight Bearing Status: (No WBing restrictions) Balance: Balance Scales/Tests Used: Sitting: Static/Dynamic Sitting - Static: Fair - Sitting - Dynamic: Poor + ACTIVITY TOLERANCE: Patient's activity tolerance: fair. TREATMENT/INTERVENTIONS: strengthening exercises and bed mobility training Modified [place]: Current Modified [place] Score: 5 AM-PAC 6 Clicks Mobility Raw Score:: 6 EDUCATION: While performing PT, Patient was instructed in:functional mobility training, self-care training, safety awareness/fall precautions , home exercise program, discharge planning Presented to patient who demonstrates Questionable understanding of instructions given. ASSESSMENT: Patient would benefit from additional Physical Therapy sessions to achieve the following functionalgoals to enhance independence. Short Term Goals: Goal Formation With patient Patient will perform bed mobility with moderate assist and X 2 Patient will transfer sit to/from stand with moderate assist and X 2 Patient will demonstrate sitting balance of Fair minus x 5 minutes Direct Care Staffer Goal(s): Patient to discharge to appropriate next level of inpatient care. INFORMED CONSENT TO TREATMENT: Plan of care including recommended therapy, goals and frequency, discussed with patient who understands and agrees to proceed. Equipment Issued: gait belt Plan: Patient continues to benefit from skilled therapy services., Continue with goals as established. If patient is discharged from the facility, this note serves as a discharge summary if further physical therapy visits did not occur. Refer to filed flowsheet for further details. Following therapy session, patient left in bed, with call light within reach, with family in room, with RNCarina aware, with therapy cues visible on white board, with fall mats in place, all lines/tubes intact. PROGRAMMER * Jessica Marin, OT - 03/23/2024 2:[address] [facility] Physical Medicine and Rehabilitation Occupational Therapy Progress Note Patient: [facility] Record Number: [id number] Date of : 1935 Age: [age] year old PPE worn by staff: gloves;mask - procedural PPE worn by patient: gown - patient, clean;socks - clean Co-Treatment with PT due to level of skilled assist required. Recommendations: Discharge OT Discharge Recommendations: Patient would benefit from multidisciplinary therapy This recommendation is made due to ongoing OT functional needs: address functional deficits Nurse and Physical Therapist contacted regarding patient status and/or discharge plan. Activity Level: as tolerated PRECAUTIONS: Weight Bearing Status: Lower Extremity;Upper Extremity Weight Bearing: WBAT SUBJECTIVE: Subjective: Pt smiling at therapists and shakes head in response to question with few verbalizations throughout. Pain Assessment: Pain Assessment Pain Scale/Observation: (Patient without pain behaviors throughout session.) OBJECTIVE: At start of therapy session, patient found in bed and with bed alarm on LDA: External Catheter General Appearance: 88 year old female semi-reclined in bed, in NAD. Patient's family member present at bedside. Vitals: (*Assess the 3 levels of oxygen saturations both for room air and 02 unless rest on room air is 88% or less). Rest BP: 118/51 (62) HR: 80 Sp02 100% Room Air Ex/Gait/Activity Without 02 BP: 94/58 (70) HR: 76 Sp02 99% Room Air Post Activity BP: 104/69 (81) HR: 100 Sp02 95% Room Air Observations: Patient says yes when asked if she is dizzy while sitting EOB. BP taken, with a significant drop in systolic BP suggesting possible orthostatic hypotension. Mental Status/Cognition: Level of Consciousness-Adult: Responds to voice Orientation Level: (Alerts to name) Cognition: Confused;Poor attention or concentration Attention Span: Difficulty attending to directions Following Commands: (follows one step commands ~50% of time with max verbal cueing, repetition, andincreased time) Safety Judgement: Decreased awareness of need for assistance Awareness of Errors: Decreased awareness of deficits Problem Solving: Assistance required to generate solutions;Assistance required to identify errors made;Assistance required to implement solutions Mobility: a gait belt and non-slip socks were used for all out of bed activity this date. Bed Mobility: Rolling: Maximal Assistance to Right Supine to Sit: Maximum Assistance;X 2 with HOB in semi-fowlers position Sit to Supine: Maximum Assistance Transfers: Sit to Stand: Activity Does Not Occur (due to poor sitting balance, fatigue, and command follow impacting safety) Stand to Sit: Activity Does Not Occur Balance: Balance Scales/Tests Used: Sitting: Static/Dynamic Sitting - Static: Poor +;Fair -;With Both Upper Extremity's Support Sitting - Dynamic: Poor;With Both Upper Extremity's Support Activities of Daily Living: Oral Facial Hygiene: Maximal Assistance (Moderate Assist for sitting balance to complete facial hygiene. Patient requires max verbal cueing and assist to initiate task to wash face while sitting EOB.Patient then requires Maximal Assist for hair hygiene/shampoo cap use due to increased fatigue.) ACTIVITY TOLERANCE: Activity Tolerance: (Patient with increased fatigue, and noted to be closing eyes while sitting EOB) Modified [place]: Current Modified [place] Score: 5 AM-PAC 6 Clicks Daily Activity Raw Score:: 8 TREATMENT/INTERVENTIONS: ADL training Endurance training Bed mobility EDUCATION: While performing OT, Patient and family member was instructed in:self-care training, safety awareness/fall precautions , discharge planning, use of call light Patient not appropriate for education at this time secondary to mental status. INFORMED CONSENT TO TREATMENT: Plan of care is discussed but patient with questionable understanding. ASSESSMENT: Patient continues to benefit from skilled Occupational Therapy to achieve the following functional goals. Short Term Goals: Goal Formation With patient/family Patient will perform grooming at edge of bed and with stand by assist Patient will perform upper extremity dressing with minimal assist Patient will perform supine to/from sit with maximal assist Patient will transfer sit to stand with maximal assist Shelter Goal(s): Patient to discharge to appropriate next level of inpatient care Plan: Patient continues to benefit from skilled therapy services., Continue with goals as established. If patient is discharged from the facility, this note serves as a discharge summary if further occupational therapy visits did not occur. Refer to filed flowsheet for further details. Following therapy session, patient left in bed with mattress inflated, with bed alarm on , with call light within reach, with family in room, with RNCarina aware, with therapy cues visible on whiteboard, with fall mats in place. PROGRAMMER * Courtney Ortiz RN - 03/23/2024 11:16 AM CST Care Coordination Progress Note Expected Discharge Date: 03/24/2024 Discharge Plan: Extubated 03/19. [facility]. Restraints/ Roll belt in place. PT/OT to reconsult patient for discharge recommendations. SNF vs. LTACH. CM/SW following. Family Support (Name and Phone): Extended Emergency Contact Information Primary Emergency Contact: Meri Henderson ([employer]) Mobile Relation: Daughter Preferred language: Icelandic V Belt Curer needed? No Secondary Emergency Contact: Shay [place] Mobile Relation: Daughter Preferred language: Icelandic V Belt Curer needed? No Guardian: MERI HENDERSON [employer] Mobile Relation: Daughter Transportation at Discharge: Family: READMISSION RISK SCORE is 16 at 11:30 AM 03/23/2024.: Name: Courtney Ortiz RN PROGRAMMER * Dian Valera, ROBOTICS TESTING TECHNICIAN-ELECTRIC MOTOR REPAIR SUPERVISOR - 03/23/2024 6:36 AM CST Admit Date: 03/13/2024 Hospital day 10 Subjective: HPI: 88yo F BIBEMS after fall. Admitted to trauma ICU for management of polytrauma Injuries: - SDH (left, 7mm) - SAH - Hemorrhagic contusion (right temporal) - Right frontoparietal scalp laceration - Left frontal scalp contusion - ?grade II liver injury Interval History: 03/23: SAVAGE JAY, pt remains w/ delirium requires waist belt restraint. Plan for updated therapy recs for dispo planning today. 03/22: NAEON, AVFSS, plan for updated PT/OT recs for dispo. MEDIA ASSISTANT for updated recs family able to provide patient's dentures 03/21: TTF from ICU overnight. Patient in lap belt andbilateral mittens. Will arouse to verbal stimulation, but drowsy. Encourage PO intake. Wean out of restraints 03/20: Patient extubated to [place] yesterday, now stable on RA. Pt failed nursing swallow, if fails formal MEDIA ASSISTANT swallow, will need dobhoff placed. Plan to transfer to trauma floor today. 03/19: Overnight, all sedation turned off, however patient agitated and precedex restarted. AFVSS. Hgb this AM 7.7. Plan to discuss code status with family, perform SBT and possibly attempt to extubate today. 03/18: AFVSS off pressors. Required 1 unit pRBC overnight for hgb 6.8. Patient intubated PEEP 5 andFiO2 of 30. 03/17: AFVSS. NAEO. Pressors and sedation weaned down to 0. Patient remains on Peep of 5 and Fi02 of 30. Plan for SBT today. 03/16: Propofol replaced with Precedex to assist with agitation during sedation wean. Patient with hypotension to 60/30's, increased levophed from 0.03 to 1.5 max. 1L IVF given, stat labs ordered without any significant changes from previous. Trops mildly elevated, EKG with T wave inversions in anterolateral leads, troponins not increasing. Remains on low vent settings. Unchanged neuro exam. [place] continue current management, wean sedation and pressors as able. 03/15: VBG drawn following SBT (PSV 10/5, RR 14) likely lab error however pt placed back on volume control with improvement. Arterial line placed overnight for BP monitoring as pt intermittently hypotensive, requiring titration of levophed and IVF boluses. Per NSGY, repeat CTH without any new changes/concerns, no further neurosurgical intervention. Plan to pause sedation and trial SBT. Discussed possibility of re-intubation with family, family okay with intubation at this time, still DNR. 03/14: ENT/Face consulted for repair of complex scalp laceration. Will follow up CTA and Neurosurgery recommendations. Patient started on Levophed for MAP's 50's. Remains intubated, sedated with fentanyl and propofol, will wean as able. 03/13: Presented by air as level 1 trauma. Admitted to ICU intubated/sedated with SDH, SAH. Neurosurgery consulted and CTA to be completed. Current Facility-Administered Medications Medication Dose Route Frequency Provider Last Rate Last Admin 0.9% NaCl injection 3 mL 3 mL Intracatheter q8h Sanchez Nielson MD 3 mL at 03/22/24 0510 And 0.9% NaCl injection 1-10 mL 1-10 mL Intracatheter PRN Sanchez Nielson MD acetaminophen (Tylenol) tablet 1,000 mg 1,000 mg Oral TID Bethanie Benitez APRN- CNP 1,000 mg at 03/22/242038 atorvastatin (Lipitor) tablet 20 mg 20 mg Oral AT BEDTIME Lennie Anna MD 20 mg at 03/22/242038 carvedilol (Coreg) tablet 25 mg 25 mg Oral BID WC Dian Valera APRN-CNP 25 mg at 03/22/24 1652 dextrose IV 12.5 g 12.5 g Intravenous PRN Eddy Samson MD 12.5 g at 03/19/24 1820 Or dextrose IV 25 g 25 g Intravenous PRN Eddy Samson MD Or glucagon (Glucagen) injection 1 mg 1 mg Subcutaneous PRN Eddy Samson MD enoxaparin (Lovenox) injection 30 mg 30 mg Subcutaneous q12h Gillian Cornejo, DO 30 mg at 03/22/24 2040 glucose (Diabetic Use) oral gel Oral PRN Eddy Samson MD haloperidol lactate (Haldol) injection 2 mg 2 mg Intravenous q8h PRN Gillian Cornejo, DO 2 mg at 03/20/24 1458 labetalol (Normodyne; Trandate) injection 5 mg 5 mg Intravenous q4h PRN Dian Valera APRN-CNP Or hydrALAZINE (Apresoline) injection 5 mg 5 mg Intravenous q4h PRN Dian Valera APRN-CNP lansoprazole (disintegrating) (Prevacid Solutab) tablet 15 mg 15 mg Oral QDAY BEFORE BREAKFAST Bethanie Benitez APRN-CNP 15 mg at 03/22/24 0509 melatonin tablet 3 mg 3 mg Oral AT BEDTIME Alexander Mohamud MD 3 mg at 03/22/242038 polyethylene glycol 3350 (Miralax) packet 17 g 17 g Oral QDLennie Zendejas MD senna (Senokot) tablet 8.6 mg 8.6 mg Oral QDLennie Zendejas MD Objective: Patient Vitals for the past 8 hrs: BP Temp Temp src Pulse Resp SpO2 03/23/24 0410 163/78 97.5 ??F (36.4 ??C) Oral 95 16 99 % 03/23/24 0032 125/89 97.4 ??F (36.3 ??C) Oral 104 20 99 % Temp (24hrs), Av.6 ??F (37 ??C), Min:97.4 ??F (36.3 ??C), Max:99.9 ??F (37.7 ??C) Date 03/22/24 07 - 03/23/24 0659 03/23/24 07 - 03/24/24 0659 Shift 9275-1478 2455-9106 24 Hour Total 1684-9760 8911-6819 24 Hour Total INTAKE P.O. 600 600 Shift Total(mL/kg) 600(6.8) 600(6.8) OUTPUT Urine(mL/kg/hr) 600 600 Shift Total(mL/kg) 600(6.8) 600(6.8) NET 600 -600 0 Weight (kg) 87.8 87.8 87.8 87.8 87.8 87.8 Diet: puree Last BM: 03/22 Activity: ad osvaldo WB Limitation: WBAT General Appearance: alert to self, restless Lungs: Normal repiratory effort without retractions, Clear to auscultation bilaterally, and on roomair Heart: Regular rate and rhythm without murmur Abdomen: soft non tender non distended active bowel sounds Neuro: Sensation intact to touch in all extremities and GCS 14, alert to self Extremities: WWP +2 pulses, motor and sensation intact Data Review: CBC: Recent Labs Component Name 03/23/24 0215 03/21/24 2340 03/21/24 0212 WBC 10.5 11.2* 10.9* HGB 8.5* 9.1* 9.5* HCT 26.9* 28.8* 29.5* PLTCOUNT 284 265 272 BMP: Recent Labs Component Name 03/22/24 0656 03/21/24 0212 03/20/24 0029 POTASSIUM 4.4 4.2 4.7* CO2 22 28 26 BUN 16 16 16 CREATININE 0.88 0.99* 0.65 GLUCOSE 62* 150* 128* CALCIUM 8.8 8.1* 8.6 Assessment: Principal Problem: Subarachnoid bleed (HCC) Active Problems: Altered mental status, unspecified altered mental status type Fall, initial encounter Respiratory failure after trauma (HCC) Trauma Impaired mobility and ADLs Acute pain Subdural hematoma (HCC) Neuro: Small tentorial SDH Bilateral sylvian SAH - NSGY Consulted; recs below - ok for VTE ppx - 03/23 ASA restarted - would recommend sodium be kept ~140 over the first week post-injury - no outpatient follow up needed TBI Acute delirium:. - wean restraints as able - melatonin QHS - sleep hygiene acute posttraumatic pain - continue multimodal analgesia regimen Psych: Dementia, chronic Depression, chronic - Monet consulted - on no medications other than prozac for depression sx. Can hold prozac at this time HEENT: R forehead laceration - ENT consulted; recs below - 03/14 s/p laceration repair with 5-0 fast - Recommend applying bacitracin to lacerations, abrasions, twice per day for 5 days then switch to petroleum ointment (Vaseline or similar) daily as needed to prevent crusting. - Activity: If not contraindicated by another service, recommend head elevated >30 degrees for 5-7 days to reduce swelling - Please page on discharge so we can do a wound check prior to discharge vs schedule outpatient follow up. Respiratory: COPD, chronic - on room air - encourage IS, pulmonary hygiene, OOBAT - CXR PRN Cardivascular: CAD w/ aortic mural thrombus/ulcer HLD HTN - Pt was d/c from CCU, plan to f/u outpatient w/ Cardiology for repeat imaging - 03/17 TTE EF 65-70% - 03/15 EKG SR w/ SVC, QTc 481 - Hold ASA per NSGY - continue statin - telemetry -Monitor VS q4 GI/FEN: Concern for grade 2 liver injury GERD, chronic Dysphagia - Hgb stable - Diet: puree w thin liquids - SUP: Prevacid - BM: 03/20 -Bowel regimen Endocrine: Hypoglycemia - Pt with low glucose on AM labs for consecutive days - Blood glucose monitoring Q 6 hours - RN to notify provider for orders for treatment Renal: Elevated Cr, resolved - Cr 0.88 yesterday - CrCl 51, UOP adequate - voiding via external device - intake and output every 6 hours -replete electrolytes as needed - BMP daily Hematology: acute blood loss anemia s/p polytrauma - Recent Labs Component Name 03/23/24 0215 WBC 10.5 HGB 8.5* HCT 26.9* PLTCOUNT 284 - transfusion history: - 03/18 1 unit PRBC - transfuse for hgb <7 - CBC daily Infectious Disease: WBC 10.5 from 11.2; remains afebrile - 03/14 UA negative No results found for: CULTURE - abx: - 03/13 Ancef for OR - imaging: - n/a - CBC daily - cedillo culture and skin check for fevers >101.5 Muscloskeletal: Impaired mobility and ADLs - PT/OT need updated recs SKIN: -daily skin care per nursing Lines/Tubes/Drains: PIV Prophylaxis VTE: LVX, SCDs PT/OT: require updated recs SW: assist w/ dispo needs barrier to discharge: Plan for PT/OT eval today for updated recs for dispo. Patient continues to require restraints via waist belt. Dian Valera, ROBOTICS TESTING TECHNICIAN-ELECTRIC MOTOR REPAIR SUPERVISOR 03/23/2024 6:36 AM PROGRAMMER Associated attestation - Cole Horton MD - 03/23/2024 2:09 PM VBA PROGRAMMER Patient seen and examined with Resident and/ or nurse practitioner. Please see their note for further details. I confirm history, exam, assessment and plan except where it differs from mine. In addition I note: Interval history: pt admitted on 03/13 after fall with traumatic ICH Family history is non-contributory. Exam: Awake Some confusion/delirium Abdomen is soft Assessment/Plan: Traumatic ICH -SAH, SDH, IPH -keppra x 1 week -supportive care Local wound care for scalp lacerations Liver laceration -grade II -hgb stable -will follow Working on placement in SNF Please see resident's note for further details. 03/23/2024 2:06 PM Cole Horton MD * Milagros Richard RN - 03/23/2024 12:54 AM CST Problem: Safety related to restraint use Goal: Absence of injury while restrained Outcome: Progressing Problem: Nutrient: Increased nutrient needs (specify) Goal: Intake percent from meals/snacks for this admission will be greater than: (specify) Outcome: Progressing Problem: Skin Integrity Goal: Skin integrity is maintained or improved Outcome: Progressing Problem: Mobility Goal: Patient's mobility/activity will be maintained as optimum level for age, diagnosis and physical limitations Outcome: Progressing PROGRAMMER * Dian Valera APRN-ELECTRIC MOTOR REPAIR SUPERVISOR - 03/22/2024 12:56 PM CST Admit Date: 03/13/2024 Hospital day 9 Subjective: 88yo F BIBEMS after fall. Admitted to trauma ICU for management of polytrauma Injuries: - SDH (left, 7mm) - SAH - Hemorrhagic contusion (right temporal) - Right frontoparietal scalp laceration - Left frontal scalp contusion - ?grade II liver injury Interval History: 03/22: SCOTT JAY, plan for updated PT/OT recs for dispo. MEDIA ASSISTANT for updated recs family able to provide patient's dentures 03/21: TTF from ICU overnight. Patient in lap belt andbilateral mittens. Will arouse to verbal stimulation, but drowsy. Encourage PO intake. Wean out of restraints 03/20: Patient extubated to NC yesterday, now stable on RA. Pt failed nursing swallow, if fails formal MEDIA ASSISTANT swallow, will need dobhoff placed. Plan to transfer to trauma floor today. 03/19: Overnight, all sedation turned off, however patient agitated and precedex restarted. AFVSS. Hgb this AM 7.7. Plan to discuss code status with family, perform SBT and possibly attempt to extubate today. 03/18: AFVSS off pressors. Required 1 unit pRBC overnight for hgb 6.8. Patient intubated PEEP 5 andFiO2 of 30. 03/17: AFVSS. NAEO. Pressors and sedation weaned down to 0. Patient remains on Peep of 5 and Fi02 of 30. Plan for SBT today. 03/16: Propofol replaced with Precedex to assist with agitation during sedation wean. Patient with hypotension to 60/30's, increased levophed from 0.03 to 1.5 max. 1L IVF given, stat labs ordered without any significant changes from previous. Trops mildly elevated, EKG with T wave inversions in anterolateral leads, troponins not increasing. Remains on low vent settings. Unchanged neuro exam. Planto continue current management, wean sedation and pressors as able. 03/15: VBG drawn following SBT (PSV 10/5, RR 14) likely lab error however pt placed back on volume control with improvement. Arterial line placed overnight for BP monitoring as pt intermittently hypotensive, requiring titration of levophed and IVF boluses. Per NSGY, repeat CTH without any new changes/concerns, no further neurosurgical intervention. Plan to pause sedation and trial SBT. Discussed possibility of re-intubation with family, family okay with intubation at this time, still DNR. 03/14: ENT/Face consulted for repair of complex scalp laceration. Will follow up CTA and Neurosurgery recommendations. Patient started on Levophed for MAP's 50's. Remains intubated, sedated with fentanyl and propofol, will wean as able. 03/13: Presented by air as level 1 trauma. Admitted to ICU intubated/sedated with SDH, SAH. Neurosurgery consulted and CTA to be completed. Current Facility-Administered Medications Medication Dose Route Frequency Provider Last Rate Last Admin 0.9% NaCl injection 3 mL 3 mL Intracatheter q8h Sanchez Nielson MD 3 mL at 03/22/24 0510 And 0.9% NaCl injection 1-10 mL 1-10 mL Intracatheter PRN Sanchez Nielson MD acetaminophen (Tylenol) tablet 1,000 mg 1,000 mg Oral TID Bethanie Benitez APRN- ELECTRIC MOTOR REPAIR SUPERVISOR 1,000 mg at 03/22/24 0812 atorvastatin (Lipitor) tablet 20 mg 20 mg Oral AT BEDTIME Lennie Anna MD 20 mg at 11/30/24 2053 dextrose IV 12.5 g 12.5 g Intravenous PRN Eddy Samson MD 12.5 g at 03/19/24 1820 Or dextrose IV 25 g 25 g Intravenous PRN Eddy Samson MD Or glucagon (Glucagen) injection 1 mg 1 mg Subcutaneous PRN Eddy Samson MD enoxaparin (Lovenox) injection 30 mg 30 mg Subcutaneous q12h KlDavid singeril, DO 30 mg at 03/22/24 0813 glucose (Diabetic Use) oral gel Oral PRN Eddy Samson MD haloperidol lactate (Haldol) injection 2 mg 2 mg Intravenous q8h PRN Gillian Cornejo, DO 2 mg at 03/20/24 1458 labetalol (Normodyne; Trandate) injection 5 mg 5 mg Intravenous q4h PRN Dian Valera APRN-CNP Or hydrALAZINE (Apresoline) injection 5 mg 5 mg Intravenous q4h PRN Dian Valera APRN-CNP lansoprazole (disintegrating) (Prevacid Solutab) tablet 15 mg 15 mg Oral QDAY BEFORE BREAKFAST Bethanie Benitez APRN-CNP 15 mg at 03/22/24 0509 melatonin tablet 3 mg 3 mg Oral AT BEDTIME Alexander Mohamud MD 3 mg at 03/21/242023 polyethylene glycol 3350 (Miralax) packet 17 g 17 g Oral QDAY Lennie Anna MD senna (Senokot) tablet 8.6 mg 8.6 mg Oral QDAY Lennie Anna MD Objective: Patient Vitals for the past 8 hrs: BP Temp Temp src Pulse Resp SpO2 03/22/24 1121 153/63 99.9 ??F (37.7 ??C) Axillary (!) 119 18 100 % 03/22/24 0725 116/85 98.5 ??F (36.9 ??C) Axillary (!) 120 18 99 % 03/22/24 0608 (!) 225/212 -- -- (!) 128 -- 100 % 03/22/24 0607 (!) 187/151 -- -- (!) 124 -- 100 % 03/22/24 0605 (!) 177/117 -- -- (!) 122 -- 100 % 03/22/24 0604 (!) 135/109 98.2 ??F (36.8 ??C) Axillary (!) 121 -- 98 % Temp (24hrs), Av.5 ??F (36.9 ??C), Min:97.6 ??F (36.4 ??C), Max:99.9 ??F (37.7 ??C) Date 03/21/24699 - 03/22/2465803/22/24699 - 03/23/24 0659 Shift 2263-3020 0399-7124 24 Hour Total 2910-4159 6795-6722 24 Hour Total INTAKE P.O. 120 120 300 300 Shift Total(mL/kg) 120(1.4) 120(1.4) 300(3.4) 300(3.4) OUTPUT Urine(mL/kg/hr) 300(0.3) 600(0.6) 900(0.4) Shift Total(mL/kg) 300(3.4) 600(6.8) 900(10.2) NET -180 -600 -780 300 300 Weight (kg) 87.8 87.8 87.8 87.8 87.8 87.8 Diet: puree Last BM: 03/21 Activity: ad osvaldo WB Limitation: WBAT General Appearance: alert to self, Lungs: Normal repiratory effort without retractions, Clear to auscultation bilaterally, and on roomair Heart: Regular rate and rhythm without murmur Abdomen: soft non tender non distended active bowel sounds Neuro: Sensation intact to touch in all extremities and GCS 14, alert to self Extremities: WWP +2 pulses, motor and sensation intact Data Review: CBC: Recent Labs Component Name 03/21/24 2340 03/21/24 0212 03/20/24 0029 WBC 11.2* 10.9* 9.9 HGB 9.1* 9.5* 10.3* HCT 28.8* 29.5* 32.0* PLTCOUNT 265 272 295 BMP: Recent Labs Component Name 03/22/24 0656 03/21/24 0212 03/20/24 0029 POTASSIUM 4.4 4.2 4.7* CO2 22 28 26 BUN 16 16 16 CREATININE 0.88 0.99* 0.65 GLUCOSE 62* 150* 128* CALCIUM 8.8 8.1* 8.6 Assessment: Principal Problem: Subarachnoid bleed (HCC) Active Problems: Altered mental status, unspecified altered mental status type Fall, initial encounter Respiratory failure after trauma (HCC) Trauma Impaired mobility and ADLs Acute pain Subdural hematoma (HCC) Neuro: Small tentorial SDH Bilateral sylvian SAH - NSGY Consulted; recs below - ok for VTE ppx - can restart ASA / - would recommend sodium be kept ~140 over the first week post-injury - no outpatient follow up needed TBI Altered mental status:. - wean restraints as able - melatonin QHS - sleep hygiene acute posttraumatic pain - continue multimodal analgesia regimen Psych: Dementia, chronic Depression, chronic - Monet consulted - on no medications other than prozac for depression sx. Can hold prozac at this time. Will need PT/OT assessment once stabilized/extubated if expected to d/c back to her facility based on functionalneeds. HEENT: R forehead laceration - ENT consulted; recs below - 03/14 s/p laceration repair with 5-0 fast - Recommend applying bacitracin to lacerations, abrasions, twice per day for 5 days then switch to petroleum ointment (Vaseline or similar) daily as needed to prevent crusting. - Activity: If not contraindicated by another service, recommend head elevated >30 degrees for 5-7 days to reduce swelling - Please page on discharge so we can do a wound check prior to discharge vs schedule outpatient follow up. Respiratory: COPD, chronic - on room air - encourage IS, pulmonary hygiene, OOBAT - CXR PRN Cardivascular: CAD w/ aortic mural thrombus/ulcer HLD HTN - Pt was d/c from CCU, plan to f/u outpatient w/ Cardiology for repeat imaging - 03/17 TTE EF 65-70% - 03/15 EKG SR w/ SVC, QTc 481 - Hold ASA per NSGY - continue statin - telemetry -Monitor VS q4 GI/FEN: Concern for grade 2 liver injury GERD, chronic Dysphagia - Hgb stable - Diet: puree w thin liquids - SUP: Prevacid - BM: 03/20 -Bowel regimen Endocrine: DANIAL Renal: Elevated Cr, resolved - Cr 0.88 today - CrCl 51, UOP adequate - voiding via external device - intake and output every 6 hours -replete electrolytes as needed - BMP daily Hematology: acute blood loss anemia s/p polytrauma - Recent Labs Component Name 03/21/24 2340 WBC 11.2* HGB 9.1* HCT 28.8* PLTCOUNT 265 - transfusion history: - 03/18 1 unit PRBC - transfuse for hgb <7 - CBC daily Infectious Disease: WBC 11.2; remains afebrile - 03/14 UA negative No results found for: CULTURE - abx: - 03/13 Ancef for OR - imaging: - n/a - CBC daily - cedillo culture and skin check for fevers >101.5 Muscloskeletal: Impaired mobility and ADLs - PT/OT need updated recs SKIN: -daily skin care per nursing Lines/Tubes/Drains: PIV Prophylaxis VTE: LVX, SCDs PT/OT: require updated recs SW: assist w/ dispo needs barrier to discharge: Per pt grand daughter, [facility] Facility does not offer shelter care. Pt will need updated PT/OT recs for dispo following transfer out of ICU and referrals for recommended placement. Dian Valera, GONZALES-ELECTRIC MOTOR REPAIR SUPERVISOR 03/22/2024 1:12 PM PROGRAMMER * Milagros Richard RN - 03/21/2024 10:18 PM CST Problem: Nutrient: Increased nutrient needs (specify) Goal: Intake percent from meals/snacks for this admission will be greater than: (specify) Outcome: Progressing Problem: Nutrient: Inadequate protein-energy intake Goal: Intake percent from meals/snacks for this admission will be greater than: (specify) Outcome: Progressing Problem: Skin Integrity Goal: Skin integrity is maintained or improved Outcome: Progressing Problem: Mechanical Ventilation Goal: Patent airway Outcome: Completed Goal: Oral health is maintained or improved Outcome: Completed Goal: Tracheostomy will be managed safely Outcome: Completed Goal: ET tube will be managed safely Outcome: Completed Goal: Ability to express needs and understand communication Outcome: Completed Goal: Mobility/activity is maintained at optimum level for patient Outcome: Completed Problem: Ineffective Airway Clearance Goal: Patent airway Outcome: Completed PROGRAMMER * Bethanie Benitez APRN-CNP - 03/21/2024 2:39 PM CST Family Notification Documentation Contact made: 03/21/2024 8:30 AM Person(s) contacted: Granddaughter Method of communication: In-person Duration of discussion: 10 minutes SHANDA Thompson 03/21/2024 2:40 PM PROGRAMMER * Bethanie Benitez APRN-CNP - 03/21/2024 10:30 AM CST Admit Date: 03/13/2024 Hospital day 8 Subjective: pt drowsy HPI: Pt is a 88yo F BIBEMS after fall. Admitted to trauma ICU for management of polytrauma Injuries: - SDH (left, 7mm) - SAH - Hemorrhagic contusion (right temporal) - Right frontoparietal scalp laceration - Left frontal scalp contusion - ?grade II liver injury Interval History: TTF from ICU overnight. Patient in lap belt andbilateral mittens. Will arouse to verbal stimulation, but drowsy. Encourage PO intake. Wean out of restraints 03/20: Patient extubated to NC yesterday, now stable on RA. Pt failed nursing swallow, if fails formal MEDIA ASSISTANT swallow, will need dobhoff placed. Plan to transfer to trauma floor today. 03/19: Overnight, all sedation turned off, however patient agitated and precedex restarted. AFVSS. Hgb this AM 7.7. Plan to discuss code status with family, perform SBT and possibly attempt to extubate today. 03/18: AFVSS off pressors. Required 1 unit pRBC overnight for hgb 6.8. Patient intubated PEEP 5 andFiO2 of 30. 03/17: AFVSS. NAEO. Pressors and sedation weaned down to 0. Patient remains on Peep of 5 and Fi02 of 30. Plan for SBT today. 03/16: Propofol replaced with Precedex to assist with agitation during sedation wean. Patient with hypotension to 60/30's, increased levophed from 0.03 to 1.5 max. 1L IVF given, stat labs ordered without any significant changes from previous. Trops mildly elevated, EKG with T wave inversions in anterolateral leads, troponins not increasing. Remains on low vent settings. Unchanged neuro exam. Planto continue current management, wean sedation and pressors as able. 03/15: VBG drawn following SBT (PSV 10/5, RR 14) likely lab error however pt placed back on volume control with improvement. Arterial line placed overnight for BP monitoring as pt intermittently hypotensive, requiring titration of levophed and IVF boluses. Per NSGY, repeat CTH without any new changes/concerns, no further neurosurgical intervention. Plan to pause sedation and trial SBT. Discussed possibility of re-intubation with family, family okay with intubation at this time, still DNR. 03/14: ENT/Face consulted for repair of complex scalp laceration. Will follow up CTA and Neurosurgery recommendations. Patient started on Levophed for MAP's 50's. Remains intubated, sedated with fentanyl and propofol, will wean as able. 03/13: Presented by air as level 1 trauma. Admitted to ICU intubated/sedated with SDH, SAH. Neurosurgery consulted and CTA to be completed. Current Facility-Administered Medications Medication Dose Route Frequency Provider Last Rate Last Admin 0.9% NaCl injection 3 mL 3 mL Intracatheter q8h Sanchez Nielson MD 3 mL at 03/20/24 1400 And 0.9% NaCl injection 1-10 mL 1-10 mL Intracatheter PRN Sanchez Nielson MD acetaminophen (Tylenol) tablet 1,000 mg 1,000 mg Oral TID Bethanie Benitez, ROBOTICS TESTING TECHNICIAN-ELECTRIC MOTOR REPAIR SUPERVISOR atorvastatin (Lipitor) tablet 20 mg 20 mg Enteral Tube AT BEDTIME Lazaro Barney MD 20 mg at 03/20/242108 dextrose IV 12.5 g 12.5 g Intravenous PRN Eddy Samson MD 12.5 g at 03/19/241819 Or dextrose IV 25 g 25 g Intravenous PRN Eddy Samson MD Or glucagon (Glucagen) injection 1 mg 1 mg Subcutaneous PRN Eddy Samson MD enoxaparin (Lovenox) injection 30 mg 30 mg Subcutaneous q12h Gillian Cornejo DO 30 mg at 11/29/24 2110 glucose (Diabetic Use) oral gel Oral PRN Eddy Samson MD haloperidol lactate (Haldol) injection 2 mg 2 mg Intravenous q8h PRN Gillian Cornejo, DO 2 mg at 03/20/24 1458 insulin aspart (NovoLOG) pen 0-6 Units 0-6 Units Subcutaneous 4X/day - AC & HS Bethanie Benitez, ROBOTICS TESTING TECHNICIAN-ELECTRIC MOTOR REPAIR SUPERVISOR labetalol (Normodyne; Trandate) injection 5 mg 5 mg Intravenous q6h PRN Alexander Mohamud MD melatonin tablet 3 mg 3 mg Oral AT BEDTIME Alexander Mohamud MD 3 mg at 03/20/242109 polyethylene glycol 3350 (Miralax) packet 17 g 17 g Enteral Tube QDAY David Cornejoil, DO 17 g at 03/18/24 0758 senna (Senokot) tablet 8.6 mg 8.6 mg Enteral Tube QDAY Gillian Cornejo, DO 8.6 mg at 03/18/24 0758 Review of Systems TOMY patient confused and drowsy Objective: Patient Vitals for the past 8 hrs: BP Temp Temp src Pulse Resp SpO2 03/21/24 0802 125/81 97.6 ??F (36.4 ??C) Oral 105 15 100 % 03/21/24 0456 148/83 98.7 ??F (37.1 ??C) Oral (!) 111 20 100 % Temp (24hrs), Av.4 ??F (36.9 ??C), Min:97.6 ??F (36.4 ??C), Max:99.1 ??F (37.3 ??C) Date 03/20/24699 - 03/21/2465803/21/24 07 - 03/22/24 0659 Shift 4735-8420 4556-0041 24 Hour Total 6390-6440 5324-4252 24 Hour Total INTAKE I.V.(mL/kg/hr) 2078.3(2) 2078.3(1) Shift Total(mL/kg) 2078.3(23.7) 2078.3(23.7) OUTPUT Urine(mL/kg/hr) 1200(1.1) 500(0.5) 1700(0.8) Shift Total(mL/kg) 1200(13.7) 500(5.7) 1700(19.4) NET 878.3 -500 378.3 Weight (kg) 87.8 87.8 87.8 87.8 87.8 87.8 Diet: pureed Last BM: 03/20 x 2 Activity: AAT WB Limitation: none PHYSICAL EXAM: General: arouses to verbal stimulation, very drowsy Neuro: GCS 13, AxO0, sensation intact HEENT: R scalp laceration intact with R face ecchymosis Resp: breath sounds clear and equal bilaterally, no cough, on room air CV: RRR Abdomen: soft, non-tender, non-distended, bowel sounds present, lap belt present Extremities: - remains in bilateral mittens; moves all extremities spontaneously and without difficulty; 2+DP and radial pulse Skin: as above Psych: very drowsy but calm and cooperative Data Review: CBC: Recent Labs Component Name 03/21/2421103/20/242803/18/24 2358 WBC 10.9* 9.9 7.5 HGB 9.5* 10.3* 7.7* HCT 29.5* 32.0* 23.9* PLTCOUNT 272 295 173 BMP: Recent Labs Component Name 03/21/2421103/20/242803/18/24 2358 POTASSIUM 4.2 4.7* 4.6* CO2 28 26 24 BUN 16 16 23 CREATININE 0.99* 0.65 0.70 GLUCOSE 150* 128* 137* CALCIUM 8.1* 8.6 8.0* Assessment: Principal Problem: Subarachnoid bleed (HCC) Active Problems: Altered mental status, unspecified altered mental status type Fall, initial encounter Respiratory failure after trauma (HCC) Trauma Impaired mobility and ADLs Acute pain Subdural hematoma (HCC) Plan: Neuro: Small tentorial SDH Bilateral sylvian SAH - NSGY Consulted; recs below - ok for VTE ppx - can restart ASA 12/2 - would recommend sodium be kept ~140 over the first week post-injury - no outpatient follow up needed TBI Altered mental status:. - wean restraints as able - melatonin QHS - sleep hygiene Psych: Dementia-chronic Depression-chronic - Monet consulted; recs below - on no medications other than prozac for depression sx. Can hold prozac at this time. Will need PT/OT assessment once stabilized/extubated if expected to d/c back to her facility based on functionalneeds. HEENT: R forehead laceration - ENT consulted; recs below - 03/14 s/p laceration repair with 5-0 fast - Recommend applying bacitracin to lacerations, abrasions, twice per day for 5 days then switch to petroleum ointment (Vaseline or similar) daily as needed to prevent crusting. - Activity: If not contraindicated by another service, recommend head elevated >30 degrees for 5-7 days to reduce swelling - Please page on discharge so we can do a wound check prior to discharge vs schedule outpatient follow up. Resp: COPD-chronic - on room air - encourage IS, pulmonary hygiene, OOBAT - CXR PRN CV: CAD with aortic mural thrombus/ulcer HLD HTN - 03/13 discharged from CCU; plan was to follow up with cardiology as outpatient with repeat imaging to see if ulcer has expanded in size - 03/17 TTE: EF ~65-70% - 03/15 EKG: SR with SVC, QTc 481 - holding ASA per NSGY - continue statin - continuous tele - vital signs every 4 hours GI: Concern for Grade 2 liver injury GERD-chronic Dysphagia - Hgb 9.5 from 10.3; no active bleeding - Diet: pureed with thin liquids - MEDIA ASSISTANT following - granddaughter states has dentures but just needs adhesive - SUP: prevacid - Last BM: 03/20 x 2 - miralax, senna /Renal: elevated Scr - Scr 0.99 from 0.65; encourage PO intake - CrCl 46; UOP 1.7L over last 24 hours - voiding via external female catheter - intake and output every 6 hours - replace electrolytes PRN - AM BMP Heme: acute blood loss anemia - Hgb 9.5 from 10.3; no active bleeding - transfusion history: - 03/18 1 unit PRBC - transfuse for Hgb < 7 - AM CBC ID: leukocytosis - WBC 10.9 from 9.9; Tmax 99.1 - cultures: - 03/14 UA: negative for infection - antibiotics: - 03/13 Ancef - imaging: none - cedillo culture and skin check for temp > 101.5 - AM CBC MSK: decreased mobility and ADLs - PT/OT: eval and treat - likely will need SNF placement Skin: see HEENT - monitor for infection - local wound care Drains/lines/tubes: PIV, bilateral mittens, lap belt, EFC PT/OT: recommending SNF placement SW: assist with discharge dispo Barriers to discharge: PO intake, wean out of restraints, sleep hygiene Bethanie Benitez, ROBOTICS TESTING TECHNICIAN-ELECTRIC MOTOR REPAIR SUPERVISOR 03/21/2024 11:05 AM PROGRAMMER * Lisa Quintanilla RN - 03/20/2024 11:53 PM CST Problem: Safety related to restraint use Goal: Absence of injury while restrained Outcome: Progressing Problem: Mechanical Ventilation Goal: Patent airway Outcome: Progressing Goal: Oral health is maintained or improved Outcome: Progressing Goal: Tracheostomy will be managed safely Outcome: Progressing Goal: ET tube will be managed safely Outcome: Progressing Goal: Ability to express needs and understand communication Outcome: Progressing Goal: Mobility/activity is maintained at optimum level for patient Outcome: Progressing Problem: Nutrient: Increased nutrient needs (specify) Goal: Intake percent from meals/snacks for this admission will be greater than: (specify) Outcome: Progressing Goal: Intake consistent with estimated calorie needs Outcome: Progressing Goal: Total intake will meet estimated nutrient needs Outcome: Progressing Goal: Enteral/parenteral nutrition prescription will be consistent with estimated needs Outcome: Progressing Goal: Fluid intake volume meets estimated needs Outcome: Progressing Goal: Food/nutrition information can be demonstrated Outcome: Progressing Goal: Growth velocity follows curve Outcome: Progressing Problem: Nutrient: Malnutrition Goal: Intake percent from meals/snacks for this admission will be greater than: (specify) Outcome: Progressing Goal: Intake consistent with estimated calorie needs Outcome: Progressing Goal: Total intake will meet estimated nutrient needs Outcome: Progressing Goal: Enteral/parenteral nutrition prescription will be consistent with estimated needs Outcome: Progressing Goal: Fluid intake volume meets estimated needs Outcome: Progressing Goal: Food/nutrition information can be demonstrated Outcome: Progressing Goal: Growth velocity follows curve Outcome: Progressing Problem: Nutrient: Inadequate protein-energy intake Goal: Intake percent from meals/snacks for this admission will be greater than: (specify) Outcome: Progressing Goal: Intake consistent with estimated calorie needs Outcome: Progressing Goal: Total intake will meet estimated nutrient needs Outcome: Progressing Goal: Enteral/parenteral nutrition prescription will be consistent with estimated needs Outcome: Progressing Goal: Fluid intake volume meets estimated needs Outcome: Progressing Goal: Food/nutrition information can be demonstrated Outcome: Progressing Problem: Nutrient: Decreased nutrient needs (specify) Goal: Intake percent from meals/snacks for this admission will be greater than: (specify) Outcome: Progressing Goal: Intake consistent with estimated calorie needs Outcome: Progressing Goal: Total intake will meet estimated nutrient needs Outcome: Progressing Goal: Enteral/parenteral nutrition prescription will be consistent with estimated needs Outcome: Progressing Goal: Fluid intake volume meets estimated needs Outcome: Progressing Goal: Food/nutrition information can be demonstrated Outcome: Progressing Goal: Growth velocity follows curve Outcome: Progressing Problem: Nutrients: Imbalance of nutrients Goal: Intake percent from meals/snacks for this admission will be greater than: (specify) Outcome: Progressing Goal: Intake consistent with estimated calorie needs Outcome: Progressing Goal: Total intake will meet estimated nutrient needs Outcome: Progressing Goal: Enteral/parenteral nutrition prescription will be consistent with estimated needs Outcome: Progressing Goal: Fluid intake volume meets estimated needs Outcome: Progressing Goal: Food/nutrition information can be demonstrated Outcome: Progressing Goal: Growth velocity follows curve Outcome: Progressing Problem: Skin Integrity Goal: Skin integrity is maintained or improved Outcome: Progressing Problem: Impaired Gas Exchange Goal: Resp rate/effort will be within specified limits Outcome: Progressing Problem: Ineffective Airway Clearance Goal: Patent airway Outcome: Progressing Problem: Mobility Goal: Patient's mobility/activity will be maintained as optimum level for age, diagnosis and physical limitations Outcome: Progressing Goal: Continuum of care needs are further met through referral to outpatient services when appropriate. Outcome: Progressing Goal: Patient reports the ability to perform Activities of Daily Living. Outcome: Progressing Problem: Fall Risk Goal: Fall risk and fall related injury risk are minimized (interventions related to the fall risk can be found in the flowsheet documentation) Outcome: Progressing Problem: Pain/Discomfort Goal: Patient exhibits reduced pain/discomfort as evidenced by pain scores Outcome: Progressing Goal: Patient uses pharmacological and non-pharmacological pain management strategies. Outcome: Progressing Goal: Patient verbalizes acceptable level of pain relief and ability to engage in desired activity. Outcome: Progressing Problem: Potential for Urinary Catheter-Associated Infection Goal: Signs and Symptoms of urinary catheter-associated infection are avoided Outcome: Progressing Goal: Normal urinary patterns are established within parameters of age and disease process Outcome: Progressing Problem: Risk for Violence: Self-Directed or Other Directed Description: Diagnosis: Risk for self-directed Violence or Risk for Directed Violence Risk Factors: Biochemical/neurologic imbalances, impulsivity, manic excitement, psychotic symptomatology, rage reaction, restlessness Possibly Evidenced By: agitated behaviors, delusional thinking, hallucinations, loud/threatening/profane speech, poor impulse control, provocative behaviors, verbal threats against others, verbal threats against self Goal: Patient will verbalize control of feelings. Outcome: Progressing Goal: Patient will respond to interventions when potential or actual loss of control occurs. Outcome: Progressing Goal: Patient will refrain from provoking others to physical harm. Outcome: Progressing Goal: Patient will display nonviolent behaviors toward others in the hospital, with the aid of medications and nursing interventions. Outcome: Progressing Goal: Patient will seek help when experiencing aggressive impulses. Outcome: Progressing Goal: Patient will refrain from verbal threats and loud, profrane language toward others. Outcome: Progressing Goal: Patient will be safe and free from injury. Outcome: Progressing PROGRAMMER * Alexander Mohamud MD - 03/20/2024 7:24 PM CST The patient was found to be hypertensive with a systolic in the 170s and tachycardia to 107. Due tothe fact that she has an atherosclerotic ulcer of the aorta, the decision was made to manage her hypertension with 2.5 IV labetalol 1st, and giving her scheduled Seroquel early if her obvious agitation was contributing to her hypertension and tachycardia. She has been hypotensive in the ICU, requiring pressors as recently as yesterday, however for the past day she has been hypertensive with systolics from 140s to 197. We will be judicious with blood pressure lowering medications and reassess frequently. Alexander Mohamud MD Emergency Medicine [facility] PROGRAMMER * Ginny Maza RN - 03/20/2024 6:45 PM CST Report received from Dxion Cardoza RN. Pt A&Ox1 to self at baseline. Patient accompanied by granddaughter. Patient arrived with one personal item. Team notified of arrival. Pt hypertensive and tachycardic. Team notified of occurrence. Patient is fidgeting and attempting to get out of bed. Lap beltorder requested. Sitter order requested. PROGRAMMER * Luther Langley, MEDIA ASSISTANT - 03/20/2024 1:[address] [facility] Physical Medicine and Rehabilitation Bedside Swallow Assessment Patient: Emerald Villafana Med Record Number: [id number] Date of : 1935 Age: [age] year old Patient Active Problem List: Altered mental status, unspecified altered mental status type Fall, initial encounter Subarachnoid bleed (HCC) Respiratory failure after trauma (HCC) Trauma Impaired mobility and ADLs Acute pain Subdural hematoma (HCC) Malignant hypertension Chest pain, unspecified type Penetrating atherosclerotic ulcer of aorta (HCC) Past Medical History: Diagnosis Date CAD (coronary artery disease) COPD (chronic obstructive pulmonary disease) (HCC) Dementia without behavioral disturbance (HCC) GERD (gastroesophageal reflux disease) HLD (hyperlipidemia) HTN (hypertension) In addition to the 1:1 evaluation of the patient, additional eval time was spent completing the chart review prior to the assessment, completing the multidisciplinary plan of care and education plan post evaluation and communicating results of the eval to other treatment team members. PPE: PPE worn by staff: gloves;mask - surgical PPE worn by patient: gown - patient, clean;socks - clean Impressions: Patient's swallow function assessed at bedside. Patient completed trial of ice chips, thin liquids and puree consistencies. Patient demonstrated delayed initiation and piecemeal swallow but no overt s/s of aspiration. MEDIA ASSISTANT placed patient's dentures, but they were ill fitting and required denture adhesive, which was not available. ST recommends Puree (4)/DYS1 and thin liquids with medication crushed in puree. ST will follow patient to assess diet tolerance and upgrade diet as able. Recommendations: Diet Liquids Recommendation: Thin/ Thin (0) Diet Solids Recommendation: Pureed (4)/Pureed Dys 1 Recommended Form of Meds: Crushed;With puree Compensatory Swallowing Strategies: 90 Degrees elevation for all oral intake;One to one assist withmeals;Alternate solids and liquids;Small bites/sips;Eat/Feed slowly Recommended Tests/Consults: Recommendations: Dysphagia Treatment Discharge Recommendations: TBD, due to acute medical status Speech therapy is recommended to improve swallow function. SUBJECTIVE: Patient Goals: No goals at this time Pain Assessment: No pain reported at this time OBJECTIVE: Level of Consciousness: alert and drowsy Orientation Level: oriented to person Positioning: Upright in bed Respiratory Status: room air Oral/Motor: Dentition: Edentulous Oral Hygiene : Xerostomic (dry mouth) Labial/Facial: Within Functional Limits Tongue: Within Functional Limits Vocal Quality: Within Functional Limits Velopharyngeal Status: Within Functional Limits Oral Motor Coordination: Impaired Controls Secretions: Yes Swallow Trials: Ice chips: Presentation: Spoon-Assisted Oral: Delayed Initiation;Increased Anterior to Posterior Transit Pharyngeal: No signs/symptoms of aspiration Thin Liquid: Presentation: Straw-Assisted Oral: Delayed Initiation;Increased Anterior to Posterior Transit Pharyngeal: Within Functional LImits Puree: Presentation: Spoon-Assisted Oral: Delayed Initiation;Increased Anterior to Posterior Transit Pharyngeal: Within Functional LImits Assessment: Risk For Aspiration: Mild Primary Diagnostic Impression - Oral: Mild Primary Diagnostic Impression - Pharyngeal: Mild Education/Interventions: While performing MEDIA ASSISTANT, Patient and other:granddaughter was instructed in: goals of treatment , diet/liquid recommendations, swallowing strategies/aspiration precautions, and clinical signs of aspiration . Patient and other:granddaughter demonstrated Good understanding of instructions given. Physician and Nurse contacted regarding results of swallow evaluation and recommendations. Guidelines were posted on Pt's whiteboard and head of bed: yes INFORMED CONSENT TO TREATMENT: Plan of care including recommended therapy, goals and frequency, discussed with patient who understands and agrees to proceed. Short Term Goals Patient will tolerate recommended food and liquid consistencies without clinical signs of aspiration., Patient will understand clinical signs of aspiration and aspiration precautions., Patient will follow recommended swallowing strategies., Patient will demonstrate an improvement in oropharyngeal swallow function to warrant diet upgrade. Direct Care Staffer Goal (s): Patient to be independent/baseline with functional mobility and self care and be able to safely discharge to prior level of care. Luther Perez M.A., [facility]-MEDIA ASSISTANT Speech Language Pathologist [phone] PROGRAMMER * Gillian Cornejo DO - 03/20/2024 1:10 PM CST [facility] Trauma ICU Progress Note Admit: 03/13/2024 9:48 PM Date: March 20, 2024 Length of Stay: 4 Attending: Lennie Anna, * POD: SUBJECTIVE: History: Emerald Villafana (Emerald Villafana 37) is a 88 year old female with PMH dementia admitted to Trauma ICU s/p GLF x2 at assisted living facility. Patient intubated for airway protection inED. Actively bleeding head laceration sutured. Patient admitted to ICU intubated/sedated. Active Injuries / Issues: - SDH (left, 7mm) - SAH - Hemorrhagic contusion (right temporal) - Right frontoparietal scalp laceration - Left frontal scalp contusion - ?grade II liver injury Incidental Findings: - small penetrating atherosclerotic ulcer noted in the aortic arch - DARYL nodule - centrilobular and paraseptal emphysema HOSPITAL COURSE: 03/20: Patient extubated to MN yesterday, now stable on RA. Pt failed nursing swallow, if fails formal MEDIA ASSISTANT swallow, will need dobhoff placed. Plan to transfer to trauma floor today. 03/19: Overnight, all sedation turned off, however patient agitated and precedex restarted. AFVSS. Hgb this AM 7.7. Plan to discuss code status with family, perform SBT and possibly attempt to extubate today. 03/18: AFVSS off pressors. Required 1 unit pRBC overnight for hgb 6.8. Patient intubated PEEP 5 andFiO2 of 30. 03/17: AFVSS. NAEO. Pressors and sedation weaned down to 0. Patient remains on Peep of 5 and Fi02 of 30. Plan for SBT today. 03/16: Propofol replaced with Precedex to assist with agitation during sedation wean. Patient with hypotension to 60/30's, increased levophed from 0.03 to 1.5 max. 1L IVF given, stat labs ordered without any significant changes from previous. Trops mildly elevated, EKG with T wave inversions in anterolateral leads, troponins not increasing. Remains on low vent settings. Unchanged neuro exam. Planto continue current management, wean sedation and pressors as able. 03/15: VBG drawn following SBT (PSV 10/5, RR 14) likely lab error however pt placed back on volume control with improvement. Arterial line placed overnight for BP monitoring as pt intermittently hypotensive, requiring titration of levophed and IVF boluses. Per NSGY, repeat CTH without any new changes/concerns, no further neurosurgical intervention. Plan to pause sedation and trial SBT. Discussed possibility of re-intubation with family, family okay with intubation at this time, still DNR. 03/14: ENT/Face consulted for repair of complex scalp laceration. Will follow up CTA and Neurosurgery recommendations. Patient started on Levophed for MAP's 50's. Remains intubated, sedated with fentanyl and propofol, will wean as able. 03/13: Presented by air as level 1 trauma. Admitted to ICU intubated/sedated with SDH, SAH. Neurosurgery consulted and CTA to be completed. OBJECTIVE: Vital Signs: BP 167/76 Pulse 107 Temp 98.7 ??F (37.1 ??C) (Axillary) Resp (!) 45 Ht 1.702 m (5' 7 ) Wt87.8 kg (193 lb 9.6 oz) SpO2 100% Temp: [98 ??F (36.7 ??C)-98.7 ??F (37.1 ??C)] 98.7 ??F (37.1 ??C) Pulse: [86-124] 107 Resp: [10-45] 45 BP: (133-192)/(76-139) 167/76 Arterial Line BP #1: (172)/(64) 172/64 Physical Exam: GEN: NAD. Comfortable in bed. SKIN: Warm, dry, intact. HEENT: Right frontal facial laceration s/p repair, resolved, CV: Regular rate and rhythm RESP: Mechanically ventilated via ETT. Bilateral lung sounds. ABD: Soft, nondistended. : Purewick in place. EXT: Warm and well-perfused. 2+ pulses. NEURO: GCS: E4 V3 M6 PSYCH: pleasantly demented Labs: CBC Recent Labs Component Name 03/20/242803/18/24 2358 03/18/24 1542 WBC 9.9 7.5 8.9 HGB 10.3* 7.7* 8.3* HCT 32.0* 23.9* 26.0* PLTCOUNT 295 173 172 BMP Recent Labs Component Name 03/20/242803/18/248 03/18/24 0001 NA 138 139 138 POTASSIUM 4.7* 4.6* 4.4 CL 105 110* 111* BUN CREATININE 0.65 0.70 0.79 GLUCOSE 128* 137* 127* CALCIUM 8.6 8.0* 8.1* CO2 ANIONGAP 7 5* 3* BCR 25* 33* 29* OSMOLALITY 289 294 291 EGFR 85* 84* 72* LFTs Recent Labs Component Name 03/15/24 1626 03/13/24 2209 03/11/24 1435 AST 12 16 12 ALT 8 9 8 ALKPHOS 44 57 63 ABG Recent Labs Component Name 03/16/24 0137 03/15/24 1626 03/15/24 1205 03/15/24 0048 PH 7.41 7.45 7.37 7.45 PO2 134* 155* - 120* PCO2 34* 31* - 31* BE -2.7* -2.1* - -2.0 ASSESSMENT / PLAN: Emerald Villafana is a 88 year old female admitted to the Trauma ICU intubated and sedated s/p GLF. NEURO: #SDH #SAH # Hemorrhagic contusion - Neurosurgery consulted, no acute intervention - CTA 03/14 0600 grossly unchanged, no large vessel injury - repeat CTH ordered per NSGY 03/14 without acute concerns - ok for DVT ppx - Can restart ASA in 7 days if needed - Keep Na approximately 140 mEq #Dementia #Depression - Geriatrics consulted - Prozac - held for now # Acute Posttraumatic Pain/Sedation - Multimodal pain regimen - haldol prn until passes swallow, then will add seroquel PSYCH: - Tox Screen: +fentanyl (given prior to collection) - Alc negative HEENT: # Right frontoparietal laceration - ENT/Face consulted - s/p repair - bacitracin BID for 5 days CARDIO: # Hypotension - Continuous cardiac monitoring - MAP >65 - Vasopressors: PRN, off since 03/16 - acutely worsened 03/15, cardiac workup done - EKG with inverted T waves anterolateral leads - Trop mildly elevated 22 --> 17 --> 19 - BNP nwl # Atherosclerotic ulcer of aorta - Discharged from Cardiac ICU yesterday 03/13 - plan was for dc with BP control, repeat CT in 2 months RESP: # Acute respiratory failure- resolved - Extubated 03/20 - Oxygen Requirements: none, RA GI: # ?Grade 2 liver injury - LFTs wnl - Serial abdominal exams - Trend CBC - Ulcer Prophylaxis: none - Bowel Regimen: miralax, senna RENAL/: - Vasquez: removed 03/15 , purewick in place - Monitor UOP HEME/ONC: # Acute Blood Loss Anemia - Transfuse for Hgb < 7 - QD CBC ID: No acute concerns - Tdap status: completed 03/13 - Antibiotics: Ancef x1 ENDO: - SSI - Maintain euglycemia, 140-180 MSK/SKIN: - Cervical spine status: cleared DIET/FLUIDS/ELECTROLYTES: Diet: NPO until passes swallow Fluids: PRN Electrolytes: Goal K > 4, Phos > 3, Mag > 2; replete PRN ICU Checklist Feeding/fluids: NPO until passes swallow, insert dobhoff and re-start tube feeds if fails Analgesia: MMPC Sedation: none Thromboprophylaxis: Lovenox 30 mg BID Head up position: >30 Ulcer prophylaxis: n/a Glycemic control: SSI Spontaneous breathing trial: as able Bowel Regimen: Miralax, Senna Lines / Drains / Airways: PIVs, right midline, purewick Deescalation of antibiotics: n/a PT/OT: when able MEDIA ASSISTANT: when able Weight Bearing Status: as tolerated C[place] consent: completed Disposition: Transfer to trauma floor Trauma Attending: Dr. Lawrence Cornejo DO Trauma ICU March 20, 2024 1:10 PM PROGRAMMER Associated attestation - Thad Bravo MD - 03/20/2024 4:36 PM VBA PROGRAMMER Patient seen and examined with the residents. Please see note for further details. Patient's lab values and radiology images noted in this report were personally reviewed by me with my interpretations as below, unless otherwise indicated. I confirm history, exam, assessment and plan, except where it may differ from my own as stated below. Thad Bravo MD * Lorraine Mckenzie - 03/20/2024 12:35 PM CST [place] more about the delightful character of Emerald from her granddaughter and close friends. Thesefriends explained that Emerald had taken them in as a sort of second mother. Emerald loved to drive and travel. She is described as loving and a spit fire, some one extraverted and quick to make long lasting friends. One of her friends recounted how she had met one of her long lasting friends [place] she is everyone's friend. Devin Peters Jonah 03/20/2024 12:40 PM PROGRAMMER * Ria Pena RN - 03/20/2024 12:16 PM CST Care Coordination Progress Note Expected Discharge Date: 03/24/2024 Discharge Plan: Patient extubated 03/19. GranddaughterAda at bedside. She states that patientwas at an Assisted Living facility. She states patient was independent. Grand daughter states that patient may not be able to go back . She states that this may be patient new baseline. She asked about facilities. She asked about facilities in [facility] or [address]. Cm provided granddaughter with Medicare list of facilities in the areas. Family Support (Name and Phone): Extended Emergency Contact Information Primary Emergency Contact: Meri Henderson (LENNY) Mobile Relation: Daughter Preferred language: Icelandic V Belt Curer needed? No Secondary Emergency Contact: Shay [place] Mobile Relation: Daughter Preferred language: Icelandic V Belt Curer needed? No Guardian: MERI HENDERSON Mobile Relation: Daughter Transportation at Discharge: Family: READMISSION RISK SCORE is 15 at 12:16 PM 03/20/2024.: Name: Ria Pena RN ext [phone] PROGRAMMER * Annika Cabral RCP - 03/19/2024 12:48 PM CST Extubation procedure: Pt suctioned orally and via ETT. Cuff deflated and + cuff leak noted. Pt successfully extubated. No stridor noted. Breath sounds clear and diminished bilaterally. Pt extubated to nasal cannula 4l and satting 100%. PROGRAMMER * Jack Harmon DO - 03/19/2024 12:45 PM CST Pre Extubation Note Patient doing well on SBT RSBI 10-25 Following commands ABG and vent settings acceptable Extubate to nasal cannula Patient may fail extubation. If she were to fail she will not be re-intubated per discussion with family. Dr. Bravo aware PROGRAMMER * Gillian Cornejo DO - 03/19/2024 5:45 AM CST [facility] Trauma ICU Progress Note Admit: 03/13/2024 9:48 PM Date: March 19, 2024 Length of Stay: 3 Attending: Lennie Anna, * POD: SUBJECTIVE: History: Emerald Villafana (Emerald Villafana 37) is a 88 year old female with PMH dementia admitted to Trauma ICU s/p GLF x2 at assisted living facility. Patient intubated for airway protection inED. Actively bleeding head laceration sutured. Patient admitted to ICU intubated/sedated. Active Injuries / Issues: - SDH (left, 7mm) - SAH - Hemorrhagic contusion (right temporal) - Right frontoparietal scalp laceration - Left frontal scalp contusion - ?grade II liver injury Incidental Findings: - small penetrating atherosclerotic ulcer noted in the aortic arch - DARYL nodule - centrilobular and paraseptal emphysema HOSPITAL COURSE: 03/19: Overnight, all sedation turned off, however patient agitated and precedex restarted. AFVSS. Hgb this AM 7.7. Plan to discuss code status with family, perform SBT and possibly attempt to extubate today. 03/18: AFVSS off pressors. Required 1 unit pRBC overnight for hgb 6.8. Patient intubated PEEP 5 andFiO2 of 30. 11/26: AFVSS. NAEO. Pressors and sedation weaned down to 0. Patient remains on Peep of 5 and Fi02 of 30. Plan for SBT today. 03/16: Propofol replaced with Precedex to assist with agitation during sedation wean. Patient with hypotension to 60/30's, increased levophed from 0.03 to 1.5 max. 1L IVF given, stat labs ordered without any significant changes from previous. Trops mildly elevated, EKG with T wave inversions in anterolateral leads, troponins not increasing. Remains on low vent settings. Unchanged neuro exam. Planto continue current management, wean sedation and pressors as able. 03/15: VBG drawn following SBT (PSV 10/5, RR 14) likely lab error however pt placed back on volume control with improvement. Arterial line placed overnight for BP monitoring as pt intermittently hypotensive, requiring titration of levophed and IVF boluses. Per NSGY, repeat CTH without any new changes/concerns, no further neurosurgical intervention. Plan to pause sedation and trial SBT. Discussed possibility of re-intubation with family, family okay with intubation at this time, still DNR. 03/14: ENT/Face consulted for repair of complex scalp laceration. Will follow up CTA and Neurosurgery recommendations. Patient started on Levophed for MAP's 50's. Remains intubated, sedated with fentanyl and propofol, will wean as able. 03/13: Presented by air as level 1 trauma. Admitted to ICU intubated/sedated with SDH, SAH. Neurosurgery consulted and CTA to be completed. OBJECTIVE: Vital Signs: BP 142/60 Pulse 61 Temp 98.8 ??F (37.1 ??C) (Axillary) Resp 14 Ht 1.702 m (5' 7 ) Wt 87.8 kg (193 lb 9.6 oz) SpO2 100% Temp: [97.8 ??F (36.6 ??C)-99.7 ??F (37.6 ??C)] 98.8 ??F (37.1 ??C) Pulse: [61-102] 61 Resp: [11-18] 14 Arterial Line BP #1: (79-216)/(42-100) 91/50 O2 %: [30 %] 30 % Ventilator Settings: Volumes SET TIDAL VOLUME (mL): 400 ML EXHALED TIDAL VOLUME (ml): 490 ml Spontaneous Tidal Volume (mL): 435 ML Observed Minute Ventilation (L/m): 6.3 Liters/Minute Ventilator Pressures OBSERVED PEAK INSPIRATORY PRESSURE (cm H2O): 30 cm H2O Pressure Support: 8 cm H2O Mean Airway Pressure (cm H2O): 9.9 cm H2O PEEP/CPAP: 5 cm H20 Actual PEEP (Intrinsic): 5.1 cm H20 Physical Exam: GEN: Intubated SKIN: Warm, dry, intact. HEENT: C-collar in place. Right frontal facial laceration s/p repair CV: Regular rate and rhythm. RESP: Mechanically ventilated via ETT. Bilateral lung sounds. ABD: Soft, nondistended. : Purewick in place. EXT: Warm and well-perfused. 2+ pulses. NEURO: GCS: E2 V1 M6 PSYCH: Unable to assess Labs: CBC Recent Labs Component Name 03/18/24 2358 03/18/24 1542 03/18/24 0035 WBC 7.5 8.9 7.7 HGB 7.7* 8.3* 6.8* HCT 23.9* 26.0* 21.2* PLTCOUNT 173 172 141* BMP Recent Labs Component Name 03/18/24 2358 03/18/24 0001 03/17/24 0050 NA 139 138 136 POTASSIUM 4.6* 4.4 4.3 CL 110* 111* 110* BUN 23 23 22 CREATININE 0.70 0.79 0.82 GLUCOSE 137* 127* 140* CALCIUM 8.0* 8.1* 7.8* CO2 24 23 ANIONGAP 5* 3* 3* BCR 33* 29* 27* OSMOLALITY 294 291 288 EGFR 84* 72* 69* LFTs Recent Labs Component Name 03/15/24 1626 03/13/24 2209 03/11/24 1435 AST 12 16 12 ALT 8 9 8 ALKPHOS 44 57 63 ABG Recent Labs Component Name 03/16/24 0137 03/15/24 1626 03/15/24 1205 03/15/24 0048 PH 7.41 7.45 7.37 7.45 PO2 134* 155* - 120* PCO2 34* 31* - 31* BE -2.7* -2.1* - -2.0 ASSESSMENT / PLAN: Emerald Villafana is a 88 year old female admitted to the Trauma ICU intubated and sedated s/p GLF. NEURO: #SDH #SAH # Hemorrhagic contusion - Neurosurgery consulted, no acute intervention - CTA 03/14 0600 grossly unchanged, no large vessel injury - repeat CTH ordered per NSGY 03/14 without acute concerns - ok for DVT ppx - Can restart ASA in 7 days if needed - Keep Na approximately 140 mEq #Dementia #Depression - Geriatrics consulted - Prozac - held for now # Acute Posttraumatic Pain/Sedation - Fentanyl, Precedex gtt - wean as tolerated - Multimodal pain regimen PSYCH: - Tox Screen: +fentanyl (given prior to collection) - Alc negative HEENT: # Right frontoparietal laceration - ENT/Face consulted - s/p repair - bacitracin BID for 5 days CARDIO: # Hypotension - Continuous cardiac monitoring - MAP >65 - Vasopressors: PRN, off since 03/16 - acutely worsened 03/15, cardiac workup done - EKG with inverted T waves anterolateral leads - Trop mildly elevated 22 --> 17 --> 19 - BNP nwl # Atherosclerotic ulcer of aorta - Discharged from Cardiac ICU yesterday 03/13 - plan was for dc with BP control, repeat CT in 2 months RESP: # Acute respiratory failure - Intubated: ETT - Oxygen Requirements: mechanical ventilation - Wean ventilator as tolerated - SBT today - possible extubation following code discussion with family GI: # ?Grade 2 liver injury - LFTs wnl - Serial abdominal exams - Trend CBC - Ulcer Prophylaxis: pepcid - Bowel Regimen: miralax, senna RENAL/: - Vasquez: removed 03/15 , purewick in place - Monitor UOP HEME/ONC: # Acute Blood Loss Anemia - Transfuse for Hgb < 7 - QD CBC ID: No acute concerns - Tdap status: completed 03/13 - Antibiotics: Ancef x1 ENDO: - SSI - Maintain euglycemia, 140-180 MSK/SKIN: - Cervical spine status: continue collar, clear when off sedation/able to participate in exam DIET/FLUIDS/ELECTROLYTES: Diet: TF @ 40 Fluids: PRN Electrolytes: Goal K > 4, Phos > 3, Mag > 2; replete PRN ICU Checklist Feeding/fluids: TF Analgesia: MMPC Sedation: Precedex gtt PRN Thromboprophylaxis: Lovenox 30 mg BID Head up position: >30 Ulcer prophylaxis: Pepcid Glycemic control: SSI Spontaneous breathing trial: as able Bowel Regimen: Miralax, Senna Lines / Drains / Airways: PIVs, right midline, left arterial line, ETT, OGT, purewick Deescalation of antibiotics: n/a PT/OT: when able MEDIA ASSISTANT: when able Weight Bearing Status: as tolerated Cedillo consent: completed Disposition: Trauma ICU Trauma Attending: Dr. Lawrence Cornejo, Trauma ICU March 19, 2024 5:45 AM PROGRAMMER Associated attestation - Thad Bravo MD - 03/19/2024 12:50 PM VBA PROGRAMMER I spent 35 minutes in full attendance with this critically-ill patient. Time spent was exclusive ofseparately billed procedures, treating other patients, and teaching time. I have reviewed and agreewith resident documentation. -Off sedation. On SBT now for last 3 hours. Critical care was necessary to treat or prevent life-threatening deterioration of the following: -SDH -SAH -Scalp laceration -Liver laceration? -Respiratory failure after trauma -Hypotensive shock The plan of care consists of: -SDH, SAH: Nsx consulted, CTA done and repeat had CT done. Normal Na goal, no keppra, SBP<160. -Scalp laceration: Repaired by ENT. Local wound care. -Liver laceration: Likely fatty infiltration, continue to trend H&H, -Respiratory failure after trauma: Intubated and ventilated,SBT now. Family wanting to attempt extubation today and likely will be DNI after extubation. Patient with RSBI 15, awake and alert and following commands, tidal volume 900cc, appropriate for extubation. Had multiple discussions with multiple family members, patient will be DNI after extubation. -Hypotensive shock: Resolved, off pressors at current time. -DM: SSI, blood glucose acceptable -TF to goal -Pepcid -Lovenox chemoppx -Palliative care consult Thad Bravo MD * Lizzie Burch RCP - 03/19/2024 3:23 AM CST ETT will be secured via gupta device to maintain proper tube position. Size 7.5 ETT is currently secured via gupta at 23 cm at [facility]. Pt will be monitored for secretions and will be suctioned as needed to maintain patent airway. Pt failed SBT this morning, pt did not initiate any breaths. RT placed pt back on previous settings. PROGRAMMER * Martha Skaggs RN - 03/18/2024 10:21 PM CST Problem: Nutrient: Increased nutrient needs (specify) Goal: Enteral/parenteral nutrition prescription will be consistent with estimated needs Outcome: Progressing Tube feeds at goal without signs of intolerance. PROGRAMMER * Chen Ghosh RD/HAWA - 03/18/2024 1:13 PM CST BRIEF SYNOPSIS: Nutrition Risk Identified but does not meet malnutrition criteria. Body mass index is 28.85 kg/m??. GI Concerns: Other (Comment) (OGT (placed 03/13)) Nutrition Plan: Current diet order: NPO TUBE FEEDING RECOMMENDATIONS: TF recommendations OFF propofol - current rate of 4.08 ml/hr providing 108 lipid kcals per day - Pivot 1.5 at 40ml/hr. + Yogesh BID - provides 7gm arginine, 7gm glutamine, 2.5g collagen protein, 300mg VIT C, 9.5mg zinc Provides 1440 kcals, 90 g of protein, 166 g carbohydrate, 728 ml of free water + 50 ml q 6 hrs free water flush or per MD if on IVF + 100 ml q4 hrs free water flush or per MD if not on additional fluids Recommendation to Physician: See TF recs above Monitor electrolytes and replete PRN Discharge Needs: N/A CLINICAL NUTRITION ASSESSMENT: Pt scheduled for reassessment. TF of Pivot 1.5 infusing at goal of 40mL/hr. No changes to nutritionplan at this time. Will continue to follow. Infusion Meds: dexmedeTOMIDine, 0-1.5 mcg/kg/hr, Last Rate: 0.2 mcg/kg/hr (03/16/24 0715) fentaNYL, 0-200 mcg/hr, Last Rate: Stopped (03/16/24 1315) norepinephrine, 0-0.4 mcg/kg/min, Last Rate: Stopped (03/16/24 1848) vasopressin, 0-0.04 Units/min Med/Surg History and Clinical Diagnoses: PMHx: 88 year old female with dementia for which she resides at a facility presenting as a level 1 trauma following a ground level fall Height: 170.2 cm (5' 7 ) BMI: Body mass index is 28.85 kg/m??. BMI Range: Normal IBW/lb (Calculated) Female: 135 Recent Weights/Methods 03/11/2024 1900 03/12/2024 0400 03/13/2024 2150 03/14/2024 0349 03/15/2024 0400 03/16/2024 0342 03/17/2024 0045 03/18/2024 0400 Weight: -- 65.1 kg (143 lb 8.3 oz) 68 kg (150 lb) 68 kg (150 lb) 68 kg (150 lb) 68 kg (150 lb) 83.4kg (183 lb 14.4 oz) 83.6 kg (184 lb 3.2 oz) Weight Method : Bed scale Bed scale Estimated Bed scale Bed scale Bed scale Bed scale Bed scale Weight trending up, possibly r/t fluid (net positive 3.8L) or faulty bedscale; monitoring Current tube feeding order: Pivot 1.5 at 40mL/hr PO INTAKE Current diet order: NPO Nutrition recommendation: alter/change nutrition order Food Allergies: No known food allergies Last 48 hr PO INTAKE No data recorded Supplement(s) Consumed- Last 48 hours None Pain affecting intake: No Chewing/Swallowing: Other (Comment) (Intubated (ETT 03/13)) GI Concerns: Other (Comment) (OGT (placed 03/13)) Stools: Last BM 03/14. Last BM (Date): 03/15/24 Stools (# of stools): 1 (03/14/24 1200) Stool Appearance : Soft (03/14/24 1200) Stool Amount: Small (03/14/24 1200) Skin/Wound: Traumatic wound R forehead Estimated Needs: KCAL: 7030-8294 (per VENT protocol - based on 20-25 kcals/kg ABW 68kg) Protein (g): 82-136 (per VENT protocol - based on 1.2-2.0 g/kg ABW 68kg) Fluid (ml): 1 ml/kcal Recommended Access Route: TF Labs: Recent Labs Component Name 03/18/24 0001 03/17/24 0050 03/16/24 0137 03/15/24 1626 03/14/24 0749 03/13/24 2209 03/12/24 0330 03/11/24 1435 NA 138 136 134* 131* - 132* - 140 POTASSIUM 4.4 4.3 3.6 3.8 - 4.8* - 4.1 CO2 21* - BUN CREATININE 0.79 0.82 0.99* 1.16* - 1.01* - 0.92 GLUCOSE 127* 140* 172* 155* - 201* - 80 CALCIUM 8.1* 7.8* 8.0* 7.6* - 8.2* - 8.7 ALT - - - 9 - 8 ALKPHOS - - - AST - - - EGFR 72* 69* 55* 46* - 54* - 60* - = values in this interval not displayed. Recent Labs Component Name 03/18/24 0001 03/17/24 0050 03/16/24136 PHOS 2.7* 3.0 2.5* Recent Labs Component Name 03/18/24 0001 03/17/24 0050 03/16/24 013 MAGNESIUM 2.2 2.1 2.1 Recent Labs Component Name 03/18/24 0035 03/18/24 0001 03/17/24 005 HGB 6.8* 6.7* 7.5* HCT 21.2* 20.9* 22.6* Recent Labs Component Name 03/14/24 0550 HGBA1C 5.0 Patient Vitals for the past 30 hrs: Glucose Bedside (mg/dL) 03/17/24 1707 128 mg/dL 03/17/24 1200 120 mg/dL MEDICATIONS FOR CURRENT ENCOUNTER: SCHEDULED MEDICATIONS: 0.9% NaCl injection 3 mL, Intracatheter, q8h acetaminophen (Tylenol) tablet 650 mg, Oral, q4h artificial tears ophthalmic ointment, Each Eye, q8h atorvastatin (Lipitor) tablet 20 mg, Enteral Tube, AT BEDTIME bacitracin topical ointment, Topical, TID chlorhexidine (Peridex) 0.12 % oral solution 15 mL, Mouth/Throat, BID enoxaparin (Lovenox) injection 30 mg, Subcutaneous, q12h famotidine (Pepcid) tablet 20 mg, Enteral Tube, QDAY insulin aspart (NovoLOG) pen 0-6 Units, Subcutaneous, q6h polyethylene glycol 3350 (Miralax) packet 17 g, Enteral Tube, QDAY senna (Senokot) tablet 8.6 mg, Enteral Tube, QDAY [COMPLETED] sodium phosphate 15 mmol in dextrose 5 % 255 mL bolus, Intravenous, Once [] perflutren lipid microsphere (Definity) injection 0.5 mL, Intravenous, intra-Procedure multiple CONTINUOUS MEDICATIONS: dexmedeTOMIDine (Precedex) 400 mcg in 100 mL NS infusion premix, Intravenous, Continuous fentaNYL 2500 mcg/50mL (Sublimaze) infusion, Intravenous, Continuous norepinephrine (Levophed) 8 mg/250 ml D5 infusion premix, Intravenous, Continuous vasopressin 0.2 units/mL infusion, Intravenous, Continuous PRN MEDICATIONS: Or Or Or 0.9% NaCl infusion rate and volume, Intravenous, Once PRN 0.9% NaCl injection 1-10 mL, Intracatheter, PRN dextrose IV 12.5 g, Intravenous, PRN dextrose IV 25 g, Intravenous, PRN fentaNYL (Sublimaze) bolus from bag 50 mcg, Intravenous, BOLUS FROM BAG PRN glucagon (Glucagen) injection 1 mg, Subcutaneous, PRN glucose (Diabetic Use) oral gel, Oral, PRN oxyCODONE (immediate release) (Roxicodone) tablet 2.5 mg, Enteral Tube, q4h PRN oxyCODONE (immediate release) (Roxicodone) tablet 5 mg, Enteral Tube, q4h PRN Edema Right Upper Extremity Edema: Dependent (03/18/24799) Right Hand Edema: Dependent (03/17/241999) Left Upper Extremity Edema: Dependent (03/18/24799) Left Hand Edema: Dependent (03/18/24799) Nutrition Diagnostic Statement: Inadequate oral intake related to:: decreased ability to consume ortolerate food and/or fluids due to illness as evidenced by:: oral intake insufficient to meet estimated requirements Nutrition Intervention: Enteral nutrition: Education needed: None Education Provided: Not appropriate (03/14/24 0700) Monitoring: TF, BM, labs, meds, weight Monitor per nutrition guidelines. Risk Level: High Evaluation: Nutrition Goal: Total intake will meet estimated nutrient needs Nutrition Goal Timeframe: Throughout stay Nutrition Goal Progress: Continue with current goal [id number] PROGRAMMER * Camilla Soto, OT - 03/18/2024 1:[address] [facility] Physical Medicine and Rehabilitation Occupational Therapy Initial Evaluation Note Patient: Emerald Villafana Med Record Number: [id number] Date of : 1935 Age: [age] year old PPE worn by staff: gloves;mask - surgical Co-evaluation performed with PT this date to safely progress functional activity. RT, Consuelo, present to assist with vent management during session. Recommendations: Discharge OT Discharge Recommendations: Patient would benefit from multidisciplinary therapy (LTAC pending [id number]) Recommended Transportation Method: Stretcher/Ambulance In addition to the 1:1 evaluation of the patient, additional eval time was spent completing the chart review prior to the assessment, completing the multidisciplinary plan of care and education plan post evaluation and communicating results of the eval to other treatment team members. Nurse and Physical Therapy contacted regarding patient status and/or discharge plan. Physician Orders: Evaluation and Treat Activity Level: as tolerated PRECAUTIONS: Falls, skin, b/l wrist restraints DIAGNOSIS: Patient Active Problem List: Altered mental status, unspecified altered mental status type Fall, initial encounter Subarachnoid bleed (HCC) Respiratory failure after trauma (HCC) Trauma Impaired mobility and ADLs Acute pain Subdural hematoma (HCC) Malignant hypertension Chest pain, unspecified type Penetrating atherosclerotic ulcer of aorta (HCC) Past Medical History: Diagnosis Date CAD (coronary artery disease) COPD (chronic obstructive pulmonary disease) (HCC) Dementia without behavioral disturbance (HCC) GERD (gastroesophageal reflux disease) HLD (hyperlipidemia) HTN (hypertension) SUBJECTIVE: Pt attempting to bring BLE over EOB/bedrails, requires redirection to wait until safe to sit up. Home Situation: Type of Residence: Alf (locked memory care unit) Equipment at Home: (rollator) Prior Level of Functioning: Mobility: Ambulate-In Home ;Independent;With Assistive Device (rollator) Have Help at Home?: Yes, there is help at home now Who assists you at home?: Staff How often is assistance provided?: assist required for ADLs/IADLs Pain Assessment: Pain Location #1 Pain Scale/Observation: Behaviors Behaviors/Assumed Pain Present : Fidgeting (reaching for lines/ETT) OBJECTIVE: At start of therapy session, patient found in bed General Appearance: Pt in bed upon arrival in [facility], dtr present in room during session. LDA: ICU: Arterial line, midline, PIV, OG, purewick, ETT, ventilator Vitals: (*Assess the 3 levels of oxygen saturations both for room air and 02 unless rest on room air is 88% or less). Rest BP: 156/64 via arterial line HR: 84 Sp02 100% (S)CMV 30% FiO2 PEEP 5 Post Activity BP: 154/67 via arterial line HR: 84 Sp02 100% (S)CMV 30% FiO2 PEEP 5 Observations: VSS. Mental Status/Cognition: Level of Consciousness-Adult: Alert Orientation Level: Oriented to Person (responds to name intermittently) Cognition: Follows one step commands;Follows Commands-inconsistent;Attention/concentration-decreased ;Processing-delayed;Judgement-decreased;Safety awareness-decreased Following Commands: (pt following commands ~50% of the time) UE ROM: RUE: Deficits noted (dec shoulder AROM) LUE: Deficits noted (dec shoulder AROM) Strength: RUE: deficits noted LUE: deficits noted UE Tone RUE: no abnormal tone noted LUE: no abnormal tone noted UE Sensation RUE: no complaints of numbness or tingling LUE: no complaints of numbness or tingling Mobility: A gait belt and non-slip socks were used for all out of bed activity this date. Bed Mobility: Supine to Sit: Maximum Assistance;X 2 Sit to Supine: Maximum Assistance;X 2 Transfers: Sit to Stand: Activity Does Not Occur Stand to Sit: Activity Does Not Occur Balance: Max A for static sitting EOB. Pt able to partially reach forward with BUE to give dtr a hug while sitting EOB. Activities of Daily Living Upper Body Dressing: Total Assistance (to adjust gown) AM-PAC 6 Clicks Daily Activity Raw Score:: 9 TREATMENT / EDUCATION / INTERVENTIONS: While performing OT, Patient and daugther was instructed in:functional mobility training, self-care training, cognitive retraining, energy conservation, safety awareness/fall precautions , use of call light Presented to patient who demonstrates Questionable understanding of instructions given. INFORMED CONSENT TO TREATMENT: Plan of care is discussed but patient with questionable understanding. ASSESSMENT: Functional performance limited due to: limited activities of daily living, decreased functional mobility, decreased functional balance, decreased cognition , decreased safety awareness, upper extremity functional impairments, and decreased endurance and activity tolerance. Patient continues to benefit from skilled Occupational Therapy to achieve the following functional goals. Equipment Issued: none. Short Term Goals: Goal Formation With patient/family Patient will perform grooming at edge of bed and with stand by assist Patient will perform upper extremity dressing with minimal assist Patient will perform supine to/from sit with maximal assist Patient will transfer sit to stand with maximal assist Shelter Goal(s): Patient to discharge to appropriate next level of inpatient care. Plan: Patient continues to benefit from skilled therapy services., Continue with goals as established. If patient is discharged from the facility, this note serves as a discharge summary if further occupational therapy visits did not occur. Refer to filed flowsheet for further details. Following therapy session, patient left in bed, with bed alarm on , with call light within reach, with family in room, with RNTonia aware, with therapy cues visible on white board. B/l wrist restraints in place post session. PROGRAMMER * Rufina Rooney, PT - 03/18/2024 1:[address] [facility] Physical Medicine and Rehabilitation Physical Therapy Initial Evaluation Note Patient: Emerald Villafana [facility] Record Number: [id number] Date of : 1935 Age: [age] year old PPE worn by staff: gloves;mask - surgical PPE worn by patient: gown - patient, clean;socks - clean Co-eval with OT, RT due to level of assist Recommendations: Discharge PT Discharge Recommendations: Patient would benefit from multidisciplinary therapy (LTAC pending [id number]) This recommendation is made due to ongoing PT functional needs: address functional deficits In addition to the 1:1 evaluation of the patient, additional eval time was spent completing the chart review prior to the assessment, completing the multidisciplinary plan of care and education plan post evaluation and communicating results of the eval to other treatment team members. Nurse contacted regarding patient status and/or discharge plan. Physician Orders: Evaluation and Treat PRECAUTIONS: Weight Bearing Status: (No restrictions) Activity Level: Activity as Tolerated DIAGNOSIS: Patient Active Problem List: Altered mental status, unspecified altered mental status type Fall, initial encounter Subarachnoid bleed (HCC) Respiratory failure after trauma (HCC) Trauma Impaired mobility and ADLs Acute pain Subdural hematoma (HCC) Malignant hypertension Chest pain, unspecified type Penetrating atherosclerotic ulcer of aorta (HCC) Past Medical History: Diagnosis Date CAD (coronary artery disease) COPD (chronic obstructive pulmonary disease) (HCC) Dementia without behavioral disturbance (HCC) GERD (gastroesophageal reflux disease) HLD (hyperlipidemia) HTN (hypertension) SUBJECTIVE: Subjective: Unable to verbalzie due to trach, nods head in agreement to PT PATIENT GOALS: Patient's Primary Concern: Unable to state goals, family agreeable to PT Home Situation: Type of Residence: Alf (locked memory care unit) Equipment at Home: (rollator) Prior Level of Functioning: Prior Level of Function Mobility: Ambulate-In Home ;Independent;With Assistive Device (rollator) Have Help at Home?: Yes, there is help at home now Who assists you at home?: Staff How often is assistance provided?: assist required for ADLs/IADLs Pain Assessment: Pain Location #1 Pain Scale/Observation: Behaviors Behaviors/Assumed Pain Present : Fidgeting (reaching for lines/ETT) OBJECTIVE: At start of therapy session, patient found in bed, with no alarm, and bilateral wrist restraints inplace . General Appearance: 88 year old female laying in the bed, NAD LDAs: ICU: Arterial line, midline, PIV, OG, purewick, ETT, ventilator Edema: minimal edema noted in right lower extremity and minimal edema noted in left lower extremity Vitals: (*Assess the 3 levels of oxygen saturations both for room air and 02 unless rest on room air is 88% or less). Rest BP: 156/64 via arterial line HR: 84 Sp02 100% (S)CMV 30% FiO2 PEEP 5 Post Activity BP: 154/67 via arterial line HR: 84 Sp02 100% (S)CMV 30% FiO2 PEEP 5 Observations: RT present throughout session Mental Status/Cognition: Level of Consciousness-Adult: Alert Orientation Level: Oriented to Person (responds to name intermittently) Cognition: Follows one step commands;Follows Commands-inconsistent;Attention/concentration-decreased ;Processing-delayed;Judgement-decreased;Safety awareness-decreased Attention Span: Difficulty attending to directions Following Commands: Follows one step commands with increased time (Follows 1 step commands 50% of the time) ROM: RLE: WFL with AAROM LLE: WFL with AAROM Strength: RLE: unable to follow commands to complete testing LLE: unable to follow commands to complete testing Sensation: RLE: unable to follow commands to complete testing LLE: unable to follow commands to complete testing Mobility: A gait belt and non-slip socks were used for all out of bed activity this date. Bed Mobility: Supine to Sit: Maximum Assistance;X 2 with HOB in semi-fowlers position Sit to Supine: Maximum Assistance;X 2 Transfers: Sit to Stand: Activity Does Not Occur (due to Poor sitting balance) Gait: Weight Bearing Status: (No restrictions) Distance Ambulated (ft): 0 FEET (due to poor sitting balance) Balance: Balance Scales/Tests Used: Sitting: Static/Dynamic Sitting - Static: Poor Sitting - Dynamic: Poor ACTIVITY TOLERANCE: Patient's activity tolerance: poor plus TREATMENT/INTERVENTIONS: evaluation Modified [place]: Current Modified Joel Score: 5 AM-PAC 6 Clicks Mobility Raw Score:: 7 EDUCATION: While performing PT, Patient was instructed in:functional mobility training, safety awareness/fall precautions , discharge planning, use of call light Presented to patient who demonstrates Questionable understanding of instructions given. INFORMED CONSENT TO TREATMENT: Plan of care is discussed but patient with questionable understanding. ASSESSMENT: Patient would benefit from additional Physical Therapy sessions to achieve the following functionalgoals to enhance independence. Short Term Goals: Goal Formation With patient/family Patient will perform bed mobility with moderate assist and X 2 Patient will transfer sit to/from stand with moderate assist and X 2 Patient will demonstrate sitting balance of Fair minus x 5 minutes Direct Care Staffer Goal(s): Patient to discharge to appropriate next level of inpatient care. Equipment Issued: none Plan: Transfer training Bed mobility training Balance training Safety awareness If patient is discharged from the facility, this note serves as a discharge summary if further physical therapy visits did not occur. Refer to filed flowsheet for further details. Following therapy session, patient left in bed with mattress inflated, with call light within reach, with family in room, with RN, Tonia aware, with therapy cues visible on white board, all lines/tubes intact, bilateral wrist restraints in place . PROGRAMMER * Liseth Barfield, DO - 03/18/2024 6:30 AM CST [facility] Trauma ICU Progress Note Admit: 03/13/2024 9:48 PM Date: March 18, 2024 Length of Stay: 2 Attending: Lennie Anna, * POD: SUBJECTIVE: History: Emerald Villafana (Emerald Villafana 37) is a 88 year old female with PMH dementia admitted to Trauma ICU s/p GLF x2 at assisted living facility. Patient intubated for airway protection inED. Actively bleeding head laceration sutured. Patient admitted to ICU intubated/sedated. Active Injuries / Issues: - SDH (left, 7mm) - SAH - Hemorrhagic contusion (right temporal) - Right frontoparietal scalp laceration - Left frontal scalp contusion - ?grade II liver injury Incidental Findings: - small penetrating atherosclerotic ulcer noted in the aortic arch - DARYL nodule - centrilobular and paraseptal emphysema HOSPITAL COURSE: 03/18: AFVSS off pressors. Required 1 unit pRBC overnight for hgb 6.8. Patient intubated PEEP 5 andFiO2 of 30. 03/17: AFVSS. NAEO. Pressors and sedation weaned down to 0. Patient remains on Peep of 5 and Fi02 of 30. Plan for SBT today. 03/16: Propofol replaced with Precedex to assist with agitation during sedation wean. Patient with hypotension to 60/30's, increased levophed from 0.03 to 1.5 max. 1L IVF given, stat labs ordered without any significant changes from previous. Trops mildly elevated, EKG with T wave inversions in anterolateral leads, troponins not increasing. Remains on low vent settings. Unchanged neuro exam. [place] continue current management, wean sedation and pressors as able. 03/15: VBG drawn following SBT (PSV 10/5, RR 14) likely lab error however pt placed back on volume control with improvement. Arterial line placed overnight for BP monitoring as pt intermittently hypotensive, requiring titration of levophed and IVF boluses. Per NSGY, repeat CTH without any new changes/concerns, no further neurosurgical intervention. Plan to pause sedation and trial SBT. Discussed possibility of re-intubation with family, family okay with intubation at this time, still DNR. 03/14: ENT/Face consulted for repair of complex scalp laceration. Will follow up CTA and Neurosurgery recommendations. Patient started on Levophed for MAP's 50's. Remains intubated, sedated with fentanyl and propofol, will wean as able. 03/13: Presented by air as level 1 trauma. Admitted to ICU intubated/sedated with SDH, SAH. Neurosurgery consulted and CTA to be completed. OBJECTIVE: Vital Signs: BP 142/60 Pulse 67 Temp 97.8 ??F (36.6 ??C) (Axillary) Resp 14 Ht 1.702 m (5' 7 ) Wt 83.6kg (184 lb 3.2 oz) SpO2 100% Temp: [97.8 ??F (36.6 ??C)-100 ??F (37.8 ??C)] 97.8 ??F (36.6 ??C) Pulse: [62-95] 67 Resp: [14-48] 14 BP: (101-142)/(43-60) 142/60 Arterial Line BP #1: (99-147)/(45-84) 130/51 O2 %: [30 %] 30 % Ventilator Settings: Ventilation Rate SET VENTILATION RATE (bpm): 14 bpm OBSERVED VENTILATION RATE (bpm): 16 bpm Insp Time: 0.96 Insp Flow (L/Min): 50 l/Min I:E Ratio: 1:3.5 Actual I:E Ratio: 1:3.5 f/VT (RSBI): 49 Volumes SET TIDAL VOLUME (mL): 400 ML EXHALED TIDAL VOLUME (ml): 505 ml Spontaneous Tidal Volume (mL): 435 ML Observed Minute Ventilation (L/m): 6.2 Liters/Minute Ventilator Pressures OBSERVED PEAK INSPIRATORY PRESSURE (cm H2O): 34 cm H2O Pressure Support: 8 cm H2O Mean Airway Pressure (cm H2O): 11 cm H2O PEEP/CPAP: 5 cm H20 Actual PEEP (Intrinsic): 5.1 cm H20 Physical Exam: GEN: Intubated SKIN: Warm, dry, intact. HEENT: C-collar in place. Right frontal facial laceration s/p repair CV: Borderline bradycardic, infrequent PAC/PVC's on monitor. RESP: Mechanically ventilated via ETT. Bilateral lung sounds. ABD: Soft, nondistended. : Purewick in place. EXT: Warm and well-perfused. 2+ pulses. NEURO: GCS: 10T. PSYCH: Unable to assess Labs: CBC Recent Labs Component Name 03/18/24 0035 03/18/24 0001 03/17/24 0050 WBC 7.7 6.9 10.7 HGB 6.8* 6.7* 7.5* HCT 21.2* 20.9* 22.6* PLTCOUNT 141* 141* 125* BMP Recent Labs Component Name 03/18/24 0001 03/17/24 0050 03/16/24 0137 NA 138 136 134* POTASSIUM 4.4 4.3 3.6 CL 111* 110* 108* BUN 26 CREATININE 0.79 0.82 0.99* GLUCOSE 127* 140* 172* CALCIUM 8.1* 7.8* 8.0* CO2 22 ANIONGAP 3* 3* 4* BCR 29* 27* 26* OSMOLALITY 291 288 287 EGFR 72* 69* 55* LFTs Recent Labs Component Name 03/15/24 1626 03/13/24 2209 AST 12 16 ALT 8 9 ALKPHOS 44 57 ABG Recent Labs Component Name 03/16/24 0137 03/15/24 1626 03/15/24 1205 03/15/24 0048 PH 7.41 7.45 7.37 7.45 PO2 134* 155* - 120* PCO2 34* 31* - 31* BE -2.7* -2.1* - -2.0 ASSESSMENT / PLAN: Emerald Villafana is a 88 year old female admitted to the Trauma ICU intubated and sedated s/p GLF. NEURO: #SDH #SAH # Hemorrhagic contusion - Neurosurgery consulted, no acute intervention - CTA 03/14 0600 grossly unchanged, no large vessel injury - repeat CTH ordered per NSGY 03/14 without acute concerns - ok for DVT ppx - Can restart ASA in 7 days if needed - Keep Na approximately 140 mEq #Dementia #Depression - Geriatrics consulted - Prozac - held for now # Acute Posttraumatic Pain/Sedation - Fentanyl, Precedex gtt - wean as tolerated - Multimodal pain regimen PSYCH: - Tox Screen: +fentanyl (given prior to collection) - Alc negative HEENT: # Right frontoparietal laceration - ENT/Face consulted - s/p repair - bacitracin BID for 5 days CARDIO: # Hypotension - Continuous cardiac monitoring - MAP >65 - Vasopressors: PRN, off since 03/16 - acutely worsened 03/15, cardiac workup done - EKG with inverted T waves anterolateral leads - Trop mildly elevated 22 --> 17 --> 19 - BNP nwl # Atherosclerotic ulcer of aorta - Discharged from Cardiac ICU yesterday 03/13 - plan was for dc with BP control, repeat CT in 2 months RESP: # Acute respiratory failure - Intubated: ETT - Oxygen Requirements: mechanical ventilation - Continuous pulse ox - Wean ventilator as tolerated - SBT - Follow ABG GI: # ?Grade 2 liver injury - LFTs wnl - Serial abdominal exams - Trend CBC - Ulcer Prophylaxis: pepcid - Bowel Regimen: miralax, senna RENAL/: - Vasquez: removed 03/15 , purewick in place - Monitor UOP - 0.5 mL/kg/hr HEME/ONC: # Acute Blood Loss Anemia - Transfuse for Hgb < 7 - QD CBC ID: No acute concerns - Tdap status: completed 03/13 - Antibiotics: Ancef x1 ENDO: - SSI - Maintain euglycemia, 140-180 MSK/SKIN: - Cervical spine status: continue collar, clear when off sedation/able to participate in exam DIET/FLUIDS/ELECTROLYTES: Diet: TF @30 Fluids: PRN Electrolytes: Goal K > 4, Phos > 3, Mag > 2; replete PRN ICU Checklist Feeding/fluids: TF Analgesia: MMPC Sedation: Precedex gtt PRN Thromboprophylaxis: Lovenox 30 mg BID Head up position: >30 Ulcer prophylaxis: Pepcid Glycemic control: SSI Spontaneous breathing trial: as able Bowel Regimen: Miralax, Senna Lines / Drains / Airways: PIVs, right midline, left arterial line, ETT, OGT, purewick Deescalation of antibiotics: n/a PT/OT: when able MEDIA ASSISTANT: when able Weight Bearing Status: as tolerated Cedillo consent: completed Disposition: Trauma ICU Trauma Attending: Dr. Lawrence Barfield DO Trauma ICU March 18, 2024 6:30 AM PROGRAMMER Associated attestation - Thad Bravo MD - 03/18/2024 2:53 PM VBA PROGRAMMER I spent 35 minutes in full attendance with this critically-ill patient. Time spent was exclusive ofseparately billed procedures, treating other patients, and teaching time. I have reviewed and agreewith resident documentation. -NAEON. Critical care was necessary to treat or prevent life-threatening deterioration of the following: -SDH -SAH -Scalp laceration -Liver laceration? -Respiratory failure after trauma -Hypotensive shock The plan of care consists of: -SDH, SAH: Nsx consulted, CTA done and repeat had CT done. Normal Na goal, no keppra, SBP<160. -Scalp laceration: Repaired by ENT. Local wound care. -Liver laceration: Likely fatty infiltration, continue to trend H&H, -Respiratory failure after trauma: Intubated and ventilated,SBT now. Family wanting to attempt extubation tomorrow and likely will be DNI after extubation. -Hypotensive shock: Resolved, off pressors at current time. -DM: SSI, blood glucose acceptable -ABLA: Given 1 PRBC overnight, rechecking now. -TF to goal -Pepcid -Lovenox chemoppx -Palliative care consult Thad Bravo MD * Savana Navarrete RN - 03/17/2024 9:16 PM CST Problem: Safety related to restraint use Goal: Absence of injury while restrained Outcome: Progressing Problem: Mechanical Ventilation Goal: Patent airway Outcome: Progressing Goal: Oral health is maintained or improved Outcome: Progressing Goal: Tracheostomy will be managed safely Outcome: Progressing Goal: ET tube will be managed safely Outcome: Progressing Goal: Ability to express needs and understand communication Outcome: Progressing Goal: Mobility/activity is maintained at optimum level for patient Outcome: Progressing Problem: Nutrient: Increased nutrient needs (specify) Goal: Intake percent from meals/snacks for this admission will be greater than: (specify) Outcome: Progressing Goal: Intake consistent with estimated calorie needs Outcome: Progressing Goal: Total intake will meet estimated nutrient needs Outcome: Progressing Goal: Enteral/parenteral nutrition prescription will be consistent with estimated needs Outcome: Progressing Goal: Fluid intake volume meets estimated needs Outcome: Progressing Goal: Food/nutrition information can be demonstrated Outcome: Progressing Goal: Growth velocity follows curve Outcome: Progressing Problem: Nutrient: Malnutrition Goal: Intake percent from meals/snacks for this admission will be greater than: (specify) Outcome: Progressing Goal: Intake consistent with estimated calorie needs Outcome: Progressing Goal: Total intake will meet estimated nutrient needs Outcome: Progressing Goal: Enteral/parenteral nutrition prescription will be consistent with estimated needs Outcome: Progressing Goal: Fluid intake volume meets estimated needs Outcome: Progressing Goal: Food/nutrition information can be demonstrated Outcome: Progressing Goal: Growth velocity follows curve Outcome: Progressing Problem: Nutrient: Inadequate protein-energy intake Goal: Intake percent from meals/snacks for this admission will be greater than: (specify) Outcome: Progressing Goal: Intake consistent with estimated calorie needs Outcome: Progressing Goal: Total intake will meet estimated nutrient needs Outcome: Progressing Goal: Enteral/parenteral nutrition prescription will be consistent with estimated needs Outcome: Progressing Goal: Fluid intake volume meets estimated needs Outcome: Progressing Goal: Food/nutrition information can be demonstrated Outcome: Progressing Problem: Nutrient: Decreased nutrient needs (specify) Goal: Intake percent from meals/snacks for this admission will be greater than: (specify) Outcome: Progressing Goal: Intake consistent with estimated calorie needs Outcome: Progressing Goal: Total intake will meet estimated nutrient needs Outcome: Progressing Goal: Enteral/parenteral nutrition prescription will be consistent with estimated needs Outcome: Progressing Goal: Fluid intake volume meets estimated needs Outcome: Progressing Goal: Food/nutrition information can be demonstrated Outcome: Progressing Goal: Growth velocity follows curve Outcome: Progressing Problem: Nutrients: Imbalance of nutrients Goal: Intake percent from meals/snacks for this admission will be greater than: (specify) Outcome: Progressing Goal: Intake consistent with estimated calorie needs Outcome: Progressing Goal: Total intake will meet estimated nutrient needs Outcome: Progressing Goal: Enteral/parenteral nutrition prescription will be consistent with estimated needs Outcome: Progressing Goal: Fluid intake volume meets estimated needs Outcome: Progressing Goal: Food/nutrition information can be demonstrated Outcome: Progressing Goal: Growth velocity follows curve Outcome: Progressing Problem: Skin Integrity Goal: Skin integrity is maintained or improved Outcome: Progressing Problem: Impaired Gas Exchange Goal: Resp rate/effort will be within specified limits Outcome: Progressing Problem: Ineffective Airway Clearance Goal: Patent airway Outcome: Progressing Problem: Mobility Goal: Patient's mobility/activity will be maintained as optimum level for age, diagnosis and physical limitations Outcome: Progressing Goal: Continuum of care needs are further met through referral to outpatient services when appropriate. Outcome: Progressing Goal: Patient reports the ability to perform Activities of Daily Living. Outcome: Progressing Problem: Fall Risk Goal: Fall risk and fall related injury risk are minimized (interventions related to the fall risk can be found in the flowsheet documentation) Outcome: Progressing Problem: Pain/Discomfort Goal: Patient exhibits reduced pain/discomfort as evidenced by pain scores Outcome: Progressing Goal: Patient uses pharmacological and non-pharmacological pain management strategies. Outcome: Progressing Goal: Patient verbalizes acceptable level of pain relief and ability to engage in desired activity. Outcome: Progressing Problem: Potential for Urinary Catheter-Associated Infection Goal: Signs and Symptoms of urinary catheter-associated infection are avoided Outcome: Progressing Goal: Normal urinary patterns are established within parameters of age and disease process Outcome: Progressing PROGRAMMER * Tish Rivas RCP - 03/17/2024 9:07 PM CST Received patient on SCMV mode Vt400 r14 +5 30% Ett moved to the right of mouth. Will monitor. PROGRAMMER * Ria Pena RN - 03/17/2024 3:21 PM CST Care Coordination Progress Note Expected Discharge Date: 03/20/2024 Discharge Plan: Plan to wean sedation , pressors and SBT trails. During MDR this morning, team planpalliative care consult Family Support (Name and Phone): Extended Emergency Contact Information Primary Emergency Contact: Meri Henderson (POA) Mobile Relation: Daughter Preferred language: Icelandic V Belt Curer needed? No Secondary Emergency Contact: Shay Washington Mobile Relation: Daughter Preferred language: Icelandic V Belt Curer needed? No Transportation at Discharge: Family: READMISSION RISK SCORE is 16 at 3:21 PM 03/17/2024.: Name: Ria Pena RN ext [phone] PROGRAMMER * Lazaro Barney MD - 03/17/2024 5:01 AM CST [facility] Trauma ICU Progress Note Admit: 03/13/2024 9:48 PM Date: March 17, 2024 Length of Stay: 1 Attending: Lennie Anna, * POD: SUBJECTIVE: History: Emerald Villafana (Emerald Villafana 37) is a 88 year old female with PMH dementia admitted to Trauma ICU s/p GLF x2 at assisted living facility. Patient intubated for airway protection inED. Actively bleeding head laceration sutured. Patient admitted to ICU intubated/sedated. Active Injuries / Issues: - SDH (left, 7mm) - SAH - Hemorrhagic contusion (right temporal) - Right frontoparietal scalp laceration - Left frontal scalp contusion - ?grade II liver injury Incidental Findings: - small penetrating atherosclerotic ulcer noted in the aortic arch - DARYL nodule - centrilobular and paraseptal emphysema HOSPITAL COURSE: 03/17: AFVSS. NAEO. Pressors and sedation weaned down to 0. Patient remains on Peep of 5 and Fi02 of 30. Plan for SBT today. 03/16: Propofol replaced with Precedex to assist with agitation during sedation wean. Patient with hypotension to 60/30's, increased levophed from 0.03 to 1.5 max. 1L IVF given, stat labs ordered without any significant changes from previous. Trops mildly elevated, EKG with T wave inversions in anterolateral leads, troponins not increasing. Remains on low vent settings. Unchanged neuro exam. Planto continue current management, wean sedation and pressors as able. 03/15: VBG drawn following SBT (PSV 10/5, RR 14) likely lab error however pt placed back on volume control with improvement. Arterial line placed overnight for BP monitoring as pt intermittently hypotensive, requiring titration of levophed and IVF boluses. Per NSGY, repeat CTH without any new changes/concerns, no further neurosurgical intervention. Plan to pause sedation and trial SBT. Discussed possibility of re-intubation with family, family okay with intubation at this time, still DNR. 03/14: ENT/Face consulted for repair of complex scalp laceration. Will follow up CTA and Neurosurgery recommendations. Patient started on Levophed for MAP's 50's. Remains intubated, sedated with fentanyl and propofol, will wean as able. 03/13: Presented by air as level 1 trauma. Admitted to ICU intubated/sedated with SDH, SAH. Neurosurgery consulted and CTA to be completed. OBJECTIVE: Vital Signs: BP 111/59 (BP Location: Right arm, Patient Position: Lying) Pulse 82 Temp 97.4 ??F (36.3 ??C) (Axillary) Resp 14 Ht 1.702 m (5' 7 ) Wt 83.4 kg (183 lb 14.4 oz) SpO2 100% Temp: [97.2 ??F (36.2 ??C)-99.2 ??F (37.3 ??C)] 97.4 ??F (36.3 ??C) Pulse: [56-92] 82 Resp: [11-15] 14 Arterial Line BP #1: (106-189)/(42-75) 111/44 O2 %: [30 %] 30 % Ventilator Settings: Ventilation Rate SET VENTILATION RATE (bpm): 14 bpm OBSERVED VENTILATION RATE (bpm): 14 bpm Insp Time: 1 Insp Flow (L/Min): 50 l/Min I:E Ratio: 1:3.3 Actual I:E Ratio: 1:3.5 f/VT (RSBI): 30 Volumes SET TIDAL VOLUME (mL): 400 ML EXHALED TIDAL VOLUME (ml): 413 ml Spontaneous Tidal Volume (mL): 435 ML Observed Minute Ventilation (L/m): 6.3 Liters/Minute Ventilator Pressures OBSERVED PEAK INSPIRATORY PRESSURE (cm H2O): 37 cm H2O Pressure Support: 10 cm H2O Mean Airway Pressure (cm H2O): 9.8 cm H2O PEEP/CPAP: 5 cm H20 Actual PEEP (Intrinsic): 5 cm H20 Physical Exam: GEN: Intubated SKIN: Warm, dry, intact. HEENT: C-collar in place. Right frontal facial laceration s/p repair CV: Borderline bradycardic, infrequent PAC/PVC's on monitor. RESP: Mechanically ventilated via ETT. Bilateral lung sounds. ABD: Soft, nondistended. : Purewick in place. EXT: Warm and well-perfused. 2+ pulses. NEURO: GCS: 10T. PSYCH: Unable to assess Labs: CBC Recent Labs Component Name 03/17/24 0050 03/16/24 0137 03/15/24 1653 WBC 10.7 14.8* 17.7* HGB 7.5* 7.7* 7.9* HCT 22.6* 23.5* 23.3* PLTCOUNT 125* 151 143* BMP Recent Labs Component Name 03/17/24 0050 03/16/24 0137 03/15/24 1626 NA 136 134* 131* POTASSIUM 4.3 3.6 3.8 CL 110* 108* 107 BUN CREATININE 0.82 0.99* 1.16* GLUCOSE 140* 172* 155* CALCIUM 7.8* 8.0* 7.6* CO2 21* ANIONGAP 3* 4* 3* BCR 27* 26* 22 OSMOLALITY 288 287 280 EGFR 69* 55* 46* LFTs Recent Labs Component Name 03/15/24 1626 03/13/24 2209 AST 12 16 ALT 8 9 ALKPHOS 44 57 ABG Recent Labs Component Name 03/16/24 0137 03/15/24 1626 03/15/24 1205 03/15/24 0048 PH 7.41 7.45 7.37 7.45 PO2 134* 155* - 120* PCO2 34* 31* - 31* BE -2.7* -2.1* - -2.0 ASSESSMENT / PLAN: Emerald Villafana is a 88 year old female admitted to the Trauma ICU intubated and sedated s/p GLF. NEURO: #SDH #SAH # Hemorrhagic contusion - Neurosurgery consulted, no acute intervention - CTA 03/14 0600 grossly unchanged, no large vessel injury - repeat CTH ordered per NSGY 03/14 without acute concerns - ok for DVT ppx - Can restart ASA in 7 days if needed - Keep Na approximately 140 mEq #Dementia #Depression - Geriatrics consulted - Prozac - held for now # Acute Posttraumatic Pain/Sedation - Fentanyl, Precedex gtt - wean as tolerated - Multimodal pain regimen PSYCH: - Tox Screen: +fentanyl (given prior to collection) - Alc negative HEENT: # Right frontoparietal laceration - ENT/Face consulted - s/p repair - bacitracin BID for 5 days CARDIO: # Hypotension - Continuous cardiac monitoring - MAP >65 - Vasopressors: Levophed - acutely worsened 03/15, cardiac workup done - EKG with inverted T waves anterolateral leads - Trop mildly elevated 22 --> 17 --> 19 - BNP nwl # Atherosclerotic ulcer of aorta - Discharged from Cardiac ICU yesterday 03/13 - plan was for dc with BP control, repeat CT in 2 months RESP: # Acute respiratory failure - Intubated: ETT - Oxygen Requirements: mechanical ventilation - Continuous pulse ox - Wean ventilator as tolerated - SBT - Follow ABG GI: # ?Grade 2 liver injury - LFTs wnl - Serial abdominal exams - Trend CBC - Ulcer Prophylaxis: pepcid - Bowel Regimen: miralax, senna RENAL/: - Vasquez: removed 03/15 , purewick in place - Monitor UOP - 0.5 mL/kg/hr HEME/ONC: # Acute Blood Loss Anemia - Transfuse for Hgb < 7 - QD CBC ID: No acute concerns - Tdap status: completed 03/13 - Antibiotics: Ancef x1 ENDO: - SSI - Maintain euglycemia, 140-180 MSK/SKIN: - Cervical spine status: continue collar, clear when off sedation/able to participate in exam DIET/FLUIDS/ELECTROLYTES: Diet: TF @30 Fluids: PRN Electrolytes: Goal K > 4, Phos > 3, Mag > 2; replete PRN ICU Checklist Feeding/fluids: TF Analgesia: MMPC Sedation: Precedex gtt PRN Thromboprophylaxis: Lovenox 30 mg BID Head up position: >30 Ulcer prophylaxis: Pepcid Glycemic control: SSI Spontaneous breathing trial: as able Bowel Regimen: Miralax, Senna Lines / Drains / Airways: PIVs, right midline, left arterial line, ETT, OGT, purewick Deescalation of antibiotics: n/a PT/OT: when able MEDIA ASSISTANT: when able Weight Bearing Status: as tolerated Cedillo consent: completed Disposition: Trauma ICU Trauma Attending: Dr. Lawrence Barney MD Trauma ICU March 17, 2024 5:01 AM PROGRAMMER Associated attestation - Thad Bravo MD - 03/17/2024 11:25 AM VBA PROGRAMMER I spent 35 minutes in full attendance with this critically-ill patient. Time spent was exclusive ofseparately billed procedures, treating other patients, and teaching time. I have reviewed and agreewith resident documentation. -NAEON. Critical care was necessary to treat or prevent life-threatening deterioration of the following: -SDH -SAH -Scalp laceration -Liver laceration? -Respiratory failure after trauma -Hypotensive shock The plan of care consists of: -SDH, SAH: Nsx consulted, CTA done and repeat had CT done. Normal Na goal, no keppra, SBP<160. -Scalp laceration: Repaired by ENT. Local wound care. -Liver laceration: Likely fatty infiltration, continue to trend H&H, maintain HGB >7.0 -Respiratory failure after trauma: Intubated and ventilated, SCMV, PEEP 5 FiO2 30%. Will trail another SBT. Off sedation. -Hypotensive shock: Resolved, off pressors at current time. -UOP: Vasquez in place, 0.5 cc/kg/hr -Cardiac: ECHO to assess function, ameena-trac to assess fluid status. -DM: SSI, blood glucose acceptable -TF to goal -Pepcid -Lovenox chemoppx -Palliative care consult Thad Bravo MD * Tish Rivas RCP - 03/16/2024 8:21 PM CST Received patient on SCMV mode Vt400 R14 Peep5 fio2 40% Ett moved to the center of mouth.,Will monitor. PROGRAMMER * Karol Ruiz MSW - 03/16/2024 4:40 PM CST Care Coordination Progress Note Anticipated level of care at discharge: Unknown: Anticipated level of care provider: None: 03/17/2024: Discharge Plan: Sw received a call from pts daughter (Meri) with the request to have pts accounts Merged, due to not being able to access pts second admission on Mar 13 in [facility]. Sw sent a ticket to IT to review. Sw will call pts daughter once response received from IT. Orientation Level: Unable to Obtain: Family Support (Name and Phone): Extended Emergency Contact Information Primary Emergency Contact: Meri Henderson (POA) Mobile Relation: Daughter Preferred language: Icelandic V Belt Curer needed? No Secondary Emergency Contact: Shay Washington Mobile Relation: Daughter Preferred language: Icelandic V Belt Curer needed? No Transportation at Discharge: Family: READMISSION RISK SCORE is 15 at 4:40 PM 03/16/2024.: Name: JOSE LUIS Arriaga PROGRAMMER * Eddy Escalante MD - 03/16/2024 11:00 AM CST Neurosurgery Plan of Care Patient with stable CT head. Exam improving. No further inpatient neurosurgical care required. Patient is OK for DVT PPX and can restart ASA as needed in 7 days. Would recommend sodium be kept at approximately 140mEq over the first week post-injury. No outpatient follow up needed from NSGY standpoint. Eddy Escalante MD PROGRAMMER * Gillian Cornejo DO - 03/16/2024 8:12 AM CST [facility] Trauma ICU Progress Note Admit: 03/13/2024 9:48 PM Date: March 16, 2024 Length of Stay: 2 Attending: Lennie Anna, * POD: SUBJECTIVE: History: Emerald Villafana (Emerald Villafana 37) is a 88 year old female with PMH dementia admitted to Trauma ICU s/p GLF x2 at assisted living facility. Patient intubated for airway protection inED. Actively bleeding head laceration sutured. Patient admitted to ICU intubated/sedated. Active Injuries / Issues: - SDH (left, 7mm) - SAH - Hemorrhagic contusion (right temporal) - Right frontoparietal scalp laceration - Left frontal scalp contusion - ?grade II liver injury Incidental Findings: - small penetrating atherosclerotic ulcer noted in the aortic arch - DARYL nodule - centrilobular and paraseptal emphysema HOSPITAL COURSE: 03/16: Propofol replaced with Precedex to assist with agitation during sedation wean. Patient with hypotension to 60/30's, increased levophed from 0.03 to 1.5 max. 1L IVF given, stat labs ordered without any significant changes from previous. Trops mildly elevated, EKG with T wave inversions in anterolateral leads, troponins not increasing. Remains on low vent settings. Unchanged neuro exam. Planto continue current management, wean sedation and pressors as able. 03/15: VBG drawn following SBT (PSV 10/5, RR 14) likely lab error however pt placed back on volume control with improvement. Arterial line placed overnight for BP monitoring as pt intermittently hypotensive, requiring titration of levophed and IVF boluses. Per NSGY, repeat CTH without any new changes/concerns, no further neurosurgical intervention. Plan to pause sedation and trial SBT. Discussed possibility of re-intubation with family, family okay with intubation at this time, still DNR. 03/14: ENT/Face consulted for repair of complex scalp laceration. Will follow up CTA and Neurosurgery recommendations. Patient started on Levophed for MAP's 50's. Remains intubated, sedated with fentanyl and propofol, will wean as able. 03/13: Presented by air as level 1 trauma. Admitted to ICU intubated/sedated with SDH, SAH. Neurosurgery consulted and CTA to be completed. OBJECTIVE: Vital Signs: BP 111/59 (BP Location: Right arm, Patient Position: Lying) Pulse 56 Temp 98.6 ??F (37 ??C) (Oral) Resp 14 Ht 1.702 m (5' 7 ) Wt 68 kg (150 lb) SpO2 100% Temp: [98.4 ??F (36.9 ??C)-99 ??F (37.2 ??C)] 98.6 ??F (37 ??C) Pulse: [56-96] 56 Resp: [14] 14 Arterial Line BP #1: (59-171)/(31-78) 110/47 O2 %: [30 %] 30 % Ventilator Settings: Ventilation Rate SET VENTILATION RATE (bpm): 14 bpm OBSERVED VENTILATION RATE (bpm): 14 bpm Insp Time: 1 Insp Flow (L/Min): 48 l/Min I:E Ratio: 1:3.3 Actual I:E Ratio: 1:3.3 Volumes SET TIDAL VOLUME (mL): 400 ML EXHALED TIDAL VOLUME (ml): 419 ml Spontaneous Tidal Volume (mL): 446 ML Observed Minute Ventilation (L/m): 6 Liters/Minute Ventilator Pressures OBSERVED PEAK INSPIRATORY PRESSURE (cm H2O): 28 cm H2O Pressure Support: 10 cm H2O Mean Airway Pressure (cm H2O): 9.5 cm H2O PEEP/CPAP: 5 cm H20 Physical Exam: GEN: Intubated, sedated, restrained. SKIN: Warm, dry, intact. HEENT: C-collar in place. Right frontal facial laceration s/p repair CV: Borderline bradycardic, infrequent PAC/PVC's on monitor. RESP: Mechanically ventilated via ETT. Bilateral lung sounds. ABD: Soft, nondistended. : Purewick in place. EXT: Warm and well-perfused. 2+ pulses. NEURO: GCS: E: 3 Points (To voice), V: 1 (Absent), M: 5 (Localizes pain). Moving all extremities spontaneously. Not following commands. PERRL. PSYCH: Unable to assess Labs: CBC Recent Labs Component Name 03/16/24 01303/15/24 1653 03/15/24 0048 WBC 14.8* 17.7* 14.7* HGB 7.7* 7.9* 8.0* HCT 23.5* 23.3* 24.0* PLTCOUNT 151 143* 117* BMP Recent Labs Component Name 03/16/24 01303/15/24 1626 03/15/24 0048 NA 134* 131* 131* POTASSIUM 3.6 3.8 4.0 CL 108* 107 109* BUN 26 26 21 CREATININE 0.99* 1.16* 1.15* GLUCOSE 172* 155* 155* CALCIUM 8.0* 7.6* 8.3* CO2 22 21* 20* ANIONGAP 4* 3* 2* BCR 26* 22 18 OSMOLALITY 287 280 278 EGFR 55* 46* 46* LFTs Recent Labs Component Name 03/15/24 1626 03/13/24 2209 AST 12 16 ALT 8 9 ALKPHOS 44 57 ABG Recent Labs Component Name 03/16/24 0137 03/15/24 1626 03/15/24 1205 03/15/24 0048 PH 7.41 7.45 7.37 7.45 PO2 134* 155* - 120* PCO2 34* 31* - 31* BE -2.7* -2.1* - -2.0 ASSESSMENT / PLAN: Emerald Villafana is a 88 year old female admitted to the Trauma ICU intubated and sedated s/p GLF. NEURO: #SDH #SAH # Hemorrhagic contusion - Neurosurgery consulted, no acute intervention - CTA 03/14 0600 grossly unchanged, no large vessel injury - repeat CTH ordered per NSGY 03/14 without acute concerns - continue to monitor neuro exam #Dementia #Depression - Geriatrics consulted - Prozac - held for now # Acute Posttraumatic Pain/Sedation - Fentanyl, Precedex gtt - wean as tolerated - Multimodal pain regimen PSYCH: - Tox Screen: +fentanyl (given prior to collection) - Alc negative HEENT: # Right frontoparietal laceration - ENT/Face consulted - s/p repair - bacitracin BID for 5 days CARDIO: # Hypotension - Continuous cardiac monitoring - MAP >65 - Vasopressors: Levophed - acutely worsened 03/15, cardiac workup done - EKG with inverted T waves anterolateral leads - Trop mildly elevated 22 --> 17 --> 19 - BNP nwl # Atherosclerotic ulcer of aorta - Discharged from Cardiac ICU yesterday 03/13 - plan was for dc with BP control, repeat CT in 2 months RESP: # Acute respiratory failure - Intubated: ETT - Oxygen Requirements: mechanical ventilation - Continuous pulse ox - Wean ventilator as tolerated - SBT - Follow ABG GI: # ?Grade 2 liver injury - LFTs wnl - Serial abdominal exams - Trend CBC - Ulcer Prophylaxis: pepcid - Bowel Regimen: miralax, senna RENAL/: - Vasquez: removed 03/15 , purewick in place - Monitor UOP - 0.8 mL/kg/hr HEME/ONC: # Acute Blood Loss Anemia - Transfuse for Hgb < 7 - QD CBC ID: No acute concerns - Tdap status: completed 03/13 - Antibiotics: Ancef x1 ENDO: - SSI - Maintain euglycemia, 140-180 MSK/SKIN: - Cervical spine status: continue collar, clear when off sedation/able to participate in exam DIET/FLUIDS/ELECTROLYTES: Diet: TF @30 Fluids: PRN Electrolytes: Goal K > 4, Phos > 3, Mag > 2; replete PRN ICU Checklist Feeding/fluids: TF Analgesia: Fentanyl gtt Sedation: Precedex gtt Thromboprophylaxis: Lovenox Head up position: >30 Ulcer prophylaxis: Pepcid Glycemic control: SSI Spontaneous breathing trial: as able Bowel Regimen: Miralax, Senna Lines / Drains / Airways: PIVs, right midline, left arterial line, ETT, OGT, purewick Deescalation of antibiotics: n/a PT/OT: when able MEDIA ASSISTANT: when able Weight Bearing Status: as tolerated Cedillo consent: completed Disposition: Trauma ICU Discussed / Rounded with the Trauma Attending: Dr. Lawrence Cornejo, Trauma ICU March 16, 2024 8:12 AM PROGRAMMER Associated attestation - Thad Bravo MD - 03/16/2024 1:19 PM VBA PROGRAMMER I spent 35 minutes in full attendance with this critically-ill patient. Time spent was exclusive ofseparately billed procedures, treating other patients, and teaching time. I have reviewed and agreewith resident documentation. Critical care was necessary to treat or prevent life-threatening deterioration of the following: -SDH -SAH -Scalp laceration -Liver laceration? -Respiratory failure after trauma -Hypotensive shock The plan of care consists of: -SDH, SAH: Nsx consulted, CTA done and repeat had CT done. Normal Na goal, no keppra, SBP<160. -Scalp laceration: Repaired by ENT. Local wound care. -Liver laceration: Likely fatty infiltration, continue to trend H&H, maintain HGB >7.0 -Respiratory failure after trauma: Intubated and ventilated, on SBT now. Off precedex. On fent gtt,but will wean off and start oxy down the tube. -Hypotensive shock: Had sarahi/hypo episode yesterday, vasopressin d/c's, on levophed 0.11 now. 500cc bolus now. -UOP: Dropping off this AM, will replace vasquez for strict I&O measurements, IV fluid bolus now -Cardiac: ECHO to assess function, ameena-trac to assess fluid status. -DM: SSI, blood glucose acceptable -TF to goal -Pepcid -Lovenox chemoppx Thad Bravo MD * Eddy Escalante MD - 03/16/2024 7:09 AM CST Neurosurgery Progress Note Emerald Adamschon 03/16/24 Hospital Day: 3 Subjective: Patient remains intubated, no acute issues overnight. Significant Events: Objective: T: 98.6 ??F (37 ??C) [Temp Min: 98.4 ??F (36.9 ??C) Max: 99 ??F (37.2 ??C)] BP: 111/59[BP Min: 111/59 Max: 111/59] MAP: 85[MAP (mmHg) Min: 85 Max: 85] HR: 60[Pulse Min: 57 Max: 96] RR: 14[Resp Min: 14 Max: 14] Sat: 100 %[SpO2 Min: 98 % Max: 100 %] ICP: [No data recorded] EVD: none Input/Output: 03/15 0701 - 03/16 0700 In: 2654.7 [I.V.:1550.7] Out: 1225 [Urine:1225] JANETH/Other Drain: none Respiratory: MEV PEEP/CPAP: 5 cm H20 Pressure Support: 10 cm H2O OBSERVED PEAK INSPIRATORY PRESSURE (cm H2O): 28 cm H2O SET TIDAL VOLUME (mL): 400 ML Spontaneous Tidal Volume (mL): 446 ML EXHALED TIDAL VOLUME (ml): 419 ml Labs: Recent Labs Component Name 03/16/24136 WBC 14.8* HGB 7.7* HCT 23.5* PLTCOUNT 151 Recent Labs Component Name 03/16/24136 NA 134* POTASSIUM 3.6 CO2 22 BUN 26 CREATININE 0.99* CALCIUM 8.0* GLUCOSE 172* Recent Labs Component Name 03/13/24 2209 INR 1.1 PTT 23.3 Imaging: repeat scan stable Diet: DIET NPO Except: NO EXCEPTIONS DIET TUBE FEEDING CONTINUOUS Fluids: per primary MEDICATIONS FOR CURRENT ENCOUNTER: SCHEDULED MEDICATIONS: 0.9% NaCl injection 3 mL, Intracatheter, q8h acetaminophen (Tylenol) tablet 650 mg, Oral, q4h artificial tears ophthalmic ointment, Each Eye, q8h bacitracin topical ointment, Topical, TID chlorhexidine (Peridex) 0.12 % oral solution 15 mL, Mouth/Throat, BID enoxaparin (Lovenox) injection 30 mg, Subcutaneous, q12h famotidine (Pepcid) injection 20 mg, Intravenous, QDAY insulin aspart (NovoLOG) pen 0-6 Units, Subcutaneous, q6h iopamidol (Isovue 370) 76 % contrast, Intravenous, Contrast - Once polyethylene glycol 3350 (Miralax) packet 17 g, Enteral Tube, QDAY potassium phosphate 15 mmol in 250 mL bolus, Intravenous, Once senna (Senokot) tablet 8.6 mg, Enteral Tube, QDAY [COMPLETED] 0.9% NaCl IV bolus, Intravenous, Once [COMPLETED] 0.9% NaCl IV bolus, Intravenous, Once [COMPLETED] calcium gluconate 2 g in 100 mL NaCl 0.675%, Intravenous, Once [] iopamidol (Isovue 370) 76 % contrast, Intravenous, Contrast - Once [] iopamidol (Isovue 370) 76 % contrast, Intravenous, Contrast - Once CONTINUOUS MEDICATIONS: dexmedeTOMIDine (Precedex) 400 mcg in 100 mL NS infusion premix, Intravenous, Continuous fentaNYL 2500 mcg/50mL (Sublimaze) infusion, Intravenous, Continuous norepinephrine (Levophed) 8 mg/250 ml D5 infusion premix, Intravenous, Continuous vasopressin 0.2 units/mL infusion, Intravenous, Continuous PRN MEDICATIONS: Or Or 0.9% NaCl injection 1-10 mL, Intracatheter, PRN dextrose IV 12.5 g, Intravenous, PRN dextrose IV 25 g, Intravenous, PRN fentaNYL (Sublimaze) bolus from bag 50 mcg, Intravenous, BOLUS FROM BAG PRN glucagon (Glucagen) injection 1 mg, Subcutaneous, PRN glucose (Diabetic Use) oral gel, Oral, PRN General: NAD, intubated Neuro: GCS 8T (E2VTM5), +cough, +corneals, od3r, os3r, moving all extremities to stimulation, localizing briskly, opens eyes to stimulation Assessment: 88 year old female s/p fall with bilateral mixed SAH. CTA negative, repeat CT stable. Plan: - Continue to monitor neurologic exam - Normal Na goal, 140-145 - SBP goal < 160 mmHg - Recommend holding anticoagulation/ antiplatelet medications at this time - Ok for SQH/lovenox for DVT prophylaxis - Overall care per Trauma - Page Neurosurgery and obtain STAT head CT with decline in neuro exam Eddy Escalante MD 7:09 AM 03/16/24 PROGRAMMER Associated attestation - Rico Piña MD - 03/17/2024 2:30 PM VBA PROGRAMMER I have seen and examined the patient with the resident/fellow and I agree with the findings and plan of care as documented. * Kirt Nogueira RN - 03/15/2024 8:00 PM CST Problem: Safety related to restraint use Goal: Absence of injury while restrained Outcome: Progressing Problem: Mechanical Ventilation Goal: Patent airway Outcome: Progressing Goal: Oral health is maintained or improved Outcome: Progressing Goal: Tracheostomy will be managed safely Outcome: Progressing Goal: ET tube will be managed safely Outcome: Progressing Goal: Ability to express needs and understand communication Outcome: Progressing Goal: Mobility/activity is maintained at optimum level for patient Outcome: Progressing Problem: Nutrient: Increased nutrient needs (specify) Goal: Intake percent from meals/snacks for this admission will be greater than: (specify) Outcome: Progressing Goal: Intake consistent with estimated calorie needs Outcome: Progressing Goal: Total intake will meet estimated nutrient needs Outcome: Progressing Goal: Enteral/parenteral nutrition prescription will be consistent with estimated needs Outcome: Progressing Goal: Fluid intake volume meets estimated needs Outcome: Progressing Goal: Food/nutrition information can be demonstrated Outcome: Progressing Goal: Growth velocity follows curve Outcome: Progressing Problem: Nutrient: Malnutrition Goal: Intake percent from meals/snacks for this admission will be greater than: (specify) Outcome: Progressing Goal: Intake consistent with estimated calorie needs Outcome: Progressing Goal: Total intake will meet estimated nutrient needs Outcome: Progressing Goal: Enteral/parenteral nutrition prescription will be consistent with estimated needs Outcome: Progressing Goal: Fluid intake volume meets estimated needs Outcome: Progressing Goal: Food/nutrition information can be demonstrated Outcome: Progressing Goal: Growth velocity follows curve Outcome: Progressing Problem: Nutrient: Inadequate protein-energy intake Goal: Intake percent from meals/snacks for this admission will be greater than: (specify) Outcome: Progressing Goal: Intake consistent with estimated calorie needs Outcome: Progressing Goal: Total intake will meet estimated nutrient needs Outcome: Progressing Goal: Enteral/parenteral nutrition prescription will be consistent with estimated needs Outcome: Progressing Goal: Fluid intake volume meets estimated needs Outcome: Progressing Goal: Food/nutrition information can be demonstrated Outcome: Progressing Problem: Nutrient: Decreased nutrient needs (specify) Goal: Intake percent from meals/snacks for this admission will be greater than: (specify) Outcome: Progressing Goal: Intake consistent with estimated calorie needs Outcome: Progressing Goal: Total intake will meet estimated nutrient needs Outcome: Progressing Goal: Enteral/parenteral nutrition prescription will be consistent with estimated needs Outcome: Progressing Goal: Fluid intake volume meets estimated needs Outcome: Progressing Goal: Food/nutrition information can be demonstrated Outcome: Progressing Goal: Growth velocity follows curve Outcome: Progressing Problem: Nutrients: Imbalance of nutrients Goal: Intake percent from meals/snacks for this admission will be greater than: (specify) Outcome: Progressing Goal: Intake consistent with estimated calorie needs Outcome: Progressing Goal: Total intake will meet estimated nutrient needs Outcome: Progressing Goal: Enteral/parenteral nutrition prescription will be consistent with estimated needs Outcome: Progressing Goal: Fluid intake volume meets estimated needs Outcome: Progressing Goal: Food/nutrition information can be demonstrated Outcome: Progressing Goal: Growth velocity follows curve Outcome: Progressing Problem: Skin Integrity Goal: Skin integrity is maintained or improved Outcome: Progressing Problem: Impaired Gas Exchange Goal: Resp rate/effort will be within specified limits Outcome: Progressing Problem: Ineffective Airway Clearance Goal: Patent airway Outcome: Progressing Problem: Mobility Goal: Patient's mobility/activity will be maintained as optimum level for age, diagnosis and physical limitations Outcome: Progressing Goal: Continuum of care needs are further met through referral to outpatient services when appropriate. Outcome: Progressing Goal: Patient reports the ability to perform Activities of Daily Living. Outcome: Progressing Problem: Fall Risk Goal: Fall risk and fall related injury risk are minimized (interventions related to the fall risk can be found in the flowsheet documentation) Outcome: Progressing Problem: Pain/Discomfort Goal: Patient exhibits reduced pain/discomfort as evidenced by pain scores Outcome: Progressing Goal: Patient uses pharmacological and non-pharmacological pain management strategies. Outcome: Progressing Goal: Patient verbalizes acceptable level of pain relief and ability to engage in desired activity. Outcome: Progressing PROGRAMMER * Jailene Abadlla RN - 03/15/2024 12:55 PM CST Problem: Safety related to restraint use Goal: Absence of injury while restrained Outcome: Progressing Problem: Mechanical Ventilation Goal: Patent airway Outcome: Progressing Goal: Oral health is maintained or improved Outcome: Progressing Goal: Tracheostomy will be managed safely Outcome: Progressing Goal: ET tube will be managed safely Outcome: Progressing Goal: Ability to express needs and understand communication Outcome: Progressing Goal: Mobility/activity is maintained at optimum level for patient Outcome: Progressing Problem: Nutrient: Increased nutrient needs (specify) Goal: Intake percent from meals/snacks for this admission will be greater than: (specify) Outcome: Progressing Goal: Intake consistent with estimated calorie needs Outcome: Progressing Goal: Total intake will meet estimated nutrient needs Outcome: Progressing Goal: Enteral/parenteral nutrition prescription will be consistent with estimated needs Outcome: Progressing Goal: Fluid intake volume meets estimated needs Outcome: Progressing Goal: Food/nutrition information can be demonstrated Outcome: Progressing Goal: Growth velocity follows curve Outcome: Progressing Problem: Nutrient: Malnutrition Goal: Intake percent from meals/snacks for this admission will be greater than: (specify) Outcome: Progressing Goal: Intake consistent with estimated calorie needs Outcome: Progressing Goal: Total intake will meet estimated nutrient needs Outcome: Progressing Goal: Enteral/parenteral nutrition prescription will be consistent with estimated needs Outcome: Progressing Goal: Fluid intake volume meets estimated needs Outcome: Progressing Goal: Food/nutrition information can be demonstrated Outcome: Progressing Goal: Growth velocity follows curve Outcome: Progressing Problem: Nutrient: Inadequate protein-energy intake Goal: Intake percent from meals/snacks for this admission will be greater than: (specify) Outcome: Progressing Goal: Intake consistent with estimated calorie needs Outcome: Progressing Goal: Total intake will meet estimated nutrient needs Outcome: Progressing Goal: Enteral/parenteral nutrition prescription will be consistent with estimated needs Outcome: Progressing Goal: Fluid intake volume meets estimated needs Outcome: Progressing Goal: Food/nutrition information can be demonstrated Outcome: Progressing Problem: Nutrient: Decreased nutrient needs (specify) Goal: Intake percent from meals/snacks for this admission will be greater than: (specify) Outcome: Progressing Goal: Intake consistent with estimated calorie needs Outcome: Progressing Goal: Total intake will meet estimated nutrient needs Outcome: Progressing Goal: Enteral/parenteral nutrition prescription will be consistent with estimated needs Outcome: Progressing Goal: Fluid intake volume meets estimated needs Outcome: Progressing Goal: Food/nutrition information can be demonstrated Outcome: Progressing Goal: Growth velocity follows curve Outcome: Progressing Problem: Nutrients: Imbalance of nutrients Goal: Intake percent from meals/snacks for this admission will be greater than: (specify) Outcome: Progressing Goal: Intake consistent with estimated calorie needs Outcome: Progressing Goal: Total intake will meet estimated nutrient needs Outcome: Progressing Goal: Enteral/parenteral nutrition prescription will be consistent with estimated needs Outcome: Progressing Goal: Fluid intake volume meets estimated needs Outcome: Progressing Goal: Food/nutrition information can be demonstrated Outcome: Progressing Goal: Growth velocity follows curve Outcome: Progressing Problem: Skin Integrity Goal: Skin integrity is maintained or improved Outcome: Progressing Problem: Impaired Gas Exchange Goal: Resp rate/effort will be within specified limits Outcome: Progressing Problem: Ineffective Airway Clearance Goal: Patent airway Outcome: Progressing Problem: Mobility Goal: Patient's mobility/activity will be maintained as optimum level for age, diagnosis and physical limitations Outcome: Progressing Goal: Continuum of care needs are further met through referral to outpatient services when appropriate. Outcome: Progressing Goal: Patient reports the ability to perform Activities of Daily Living. Outcome: Progressing Problem: Fall Risk Goal: Fall risk and fall related injury risk are minimized (interventions related to the fall risk can be found in the flowsheet documentation) Outcome: Progressing Problem: Pain/Discomfort Goal: Patient exhibits reduced pain/discomfort as evidenced by pain scores Outcome: Progressing Goal: Patient uses pharmacological and non-pharmacological pain management strategies. Outcome: Progressing Goal: Patient verbalizes acceptable level of pain relief and ability to engage in desired activity. Outcome: Progressing PROGRAMMER * Pramod Soto MD - 03/15/2024 8:26 AM CST Neurosurgery Progress Note Emerald Villafana 03/15/24 Hospital Day: 2 Subjective: Patient is a 88 year old female s/p fall with bilateral SAH. Neuro baseline. Significant Events: Objective: T: 99.5 ??F (37.5 ??C) [Temp Min: 97.9 ??F (36.6 ??C) Max: 101.1 ??F (38.4 ??C)] BP: 114/54[BP Min: 66/50 Max: 159/61] MAP: 68[MAP (mmHg) Min: 49 Max: 125] HR: 82[Pulse Min: 73 Max: 116] RR: 14[Resp Min: 10 Max: 20] Sat: 100 %[SpO2 Min: 91 % Max: 100 %] ICP: [No data recorded] EVD: none Input/Output: 03/14 0701 - 03/15 0700 In: 1582.3 [I.V.:799.3] Out: 605 [Urine:605] JANETH/Other Drain: none Respiratory: MEV PEEP/CPAP: 5 cm H20 Pressure Support: 10 cm H2O OBSERVED PEAK INSPIRATORY PRESSURE (cm H2O): 33 cm H2O SET TIDAL VOLUME (mL): 400 ML Spontaneous Tidal Volume (mL): 446 ML EXHALED TIDAL VOLUME (ml): 439 ml Labs: Recent Labs Component Name 03/15/24 0048 WBC 14.7* HGB 8.0* HCT 24.0* PLTCOUNT 117* Recent Labs Component Name 03/15/24 0048 NA 131* POTASSIUM 4.0 CO2 20* BUN 21 CREATININE 1.15* CALCIUM 8.3* GLUCOSE 155* Recent Labs Component Name 03/13/24 2209 INR 1.1 PTT 23.3 Imaging: repeat scan stable Diet: DIET NPO Except: NO EXCEPTIONS DIET TUBE FEEDING CONTINUOUS Fluids: per primary MEDICATIONS FOR CURRENT ENCOUNTER: SCHEDULED MEDICATIONS: 0.9% NaCl injection 3 mL, Intracatheter, q8h acetaminophen (Tylenol) tablet 650 mg, Oral, q4h artificial tears ophthalmic ointment, Each Eye, q8h bacitracin topical ointment, Topical, TID chlorhexidine (Peridex) 0.12 % oral solution 15 mL, Mouth/Throat, BID famotidine (Pepcid) injection 20 mg, Intravenous, QDAY insulin aspart (NovoLOG) pen 0-6 Units, Subcutaneous, q6h iopamidol (Isovue 370) 76 % contrast, Intravenous, Contrast - Once iopamidol (Isovue 370) 76 % contrast, Intravenous, Contrast - Once iopamidol (Isovue 370) 76 % contrast, Intravenous, Contrast - Once polyethylene glycol 3350 (Miralax) packet 17 g, Enteral Tube, QDAY senna (Senokot) tablet 8.6 mg, Enteral Tube, QDAY [COMPLETED] 0.9% NaCl IV bolus, Intravenous, Once [COMPLETED] 0.9% NaCl IV bolus, Intravenous, Once [COMPLETED] 0.9% NaCl IV bolus, Intravenous, Once [COMPLETED] calcium gluconate 2 g in 100 mL NaCl 0.675%, Intravenous, Once [COMPLETED] lactated ringers IV bolus, Intravenous, Once CONTINUOUS MEDICATIONS: fentaNYL 2500 mcg/50mL (Sublimaze) infusion, Intravenous, Continuous norepinephrine (Levophed) 8 mg/250 ml D5 infusion premix, Intravenous, Continuous propofol (Diprivan) infusion, Intravenous, Continuous PRN MEDICATIONS: Or Or 0.9% NaCl injection 1-10 mL, Intracatheter, PRN dextrose IV 12.5 g, Intravenous, PRN dextrose IV 25 g, Intravenous, PRN fentaNYL (Sublimaze) bolus from bag 50 mcg, Intravenous, BOLUS FROM BAG PRN glucagon (Glucagen) injection 1 mg, Subcutaneous, PRN glucose (Diabetic Use) oral gel, Oral, PRN General: NAD, intubated Neuro: GCS 7T (E1VTM5), +cough, +corneals, od3r, os3r, moving all extremities to stimulation, localizing briskly Assessment: 88 year old female s/p fall with bilateral mixed SAH. CTA negative, repeat CT stable. Plan: - Continue to monitor neurologic exam - Normal Na goal, 140-145 - SBP goal < 160 mmHg - Recommend holding anticoagulation/ antiplatelet medications at this time - Ok for SQH/lovenox for DVT prophylaxis - Overall care per Trauma - Page Neurosurgery and obtain STAT head CT with decline in neuro exam Jose Luis Quach MD 8:26 AM 03/15/24 PROGRAMMER * Gillian Cornejo, DO - 03/15/2024 7:50 AM CST [facility] Trauma ICU Progress Note Admit: 03/13/2024 9:48 PM Date: March 15, 2024 Length of Stay: 1 Attending: Lennie Anna, * POD: SUBJECTIVE: History: Emerald Villafana (Emerald Villafana 37) is a 88 year old female with PMH dementia admitted to Trauma ICU s/p GLF x2 at assisted living facility. Patient intubated for airway protection inED. Actively bleeding head laceration sutured. Patient admitted to ICU intubated/sedated. Active Injuries / Issues: - SDH (left, 7mm) - SAH - Hemorrhagic contusion (right temporal) - Right frontoparietal scalp laceration - Left frontal scalp contusion - ?grade II liver injury Incidental Findings: - small penetrating atherosclerotic ulcer noted in the aortic arch - DARYL nodule - centrilobular and paraseptal emphysema HOSPITAL COURSE: 03/15: VBG drawn following SBT (PSV 10/5, RR 14) likely lab error however pt placed back on volume control with improvement. Arterial line placed overnight for BP monitoring as pt intermittently hypotensive, requiring titration of levophed and IVF boluses. Per NSGY, repeat CTH without any new changes/concerns, no further neurosurgical intervention. Plan to pause sedation and trial SBT. Discussed possibility of re-intubation with family, family okay with intubation at this time, still DNR. 03/14: ENT/Face consulted for repair of complex scalp laceration. Will follow up CTA and Neurosurgery recommendations. Patient started on Levophed for MAP's 50's. Remains intubated, sedated with fentanyl and propofol, will wean as able. 03/13: Presented by air as level 1 trauma. Admitted to ICU intubated/sedated with SDH, SAH. Neurosurgery consulted and CTA to be completed. OBJECTIVE: Vital Signs: BP 114/54 Pulse 82 Temp 99.5 ??F (37.5 ??C) (Oral) Resp 14 Ht 1.702 m (5' 7 ) Wt 68 kg (150 lb) SpO2 100% Temp: [97.7 ??F (36.5 ??C)-101.1 ??F (38.4 ??C)] 99.5 ??F (37.5 ??C) Pulse: [73-116] 82 Resp: [10-20] 14 BP: (66-159)/(43-94) 114/54 Arterial Line BP #1: (96-150)/(43-69) 100/46 O2 %: [30 %-40 %] 30 % Ventilator Settings: Ventilation Rate SET VENTILATION RATE (bpm): 14 bpm OBSERVED VENTILATION RATE (bpm): 14 bpm Insp Time: 1 Insp Flow (L/Min): 48 l/Min I:E Ratio: 1:3.3 Actual I:E Ratio: 1:3.3 Volumes SET TIDAL VOLUME (mL): 400 ML EXHALED TIDAL VOLUME (ml): 439 ml Spontaneous Tidal Volume (mL): 446 ML Observed Minute Ventilation (L/m): 6.1 Liters/Minute Ventilator Pressures OBSERVED [employer] PRESSURE (cm H2O): 33 cm H2O Pressure Support: 10 cm H2O Mean Airway Pressure (cm H2O): 10 cm H2O PEEP/CPAP: 5 cm H20 Physical Exam: GEN: Intubated, sedated, restrained. SKIN: Warm, dry, intact. HEENT: C-collar in place. Right frontal facial laceration s/p repair CV: Regular rate and rhythm. RESP: Mechanically ventilated via ETT. Bilateral lung sounds. ABD: Soft, nondistended. : Vasquez in place EXT: Warm and well-perfused. 2+ pulses. NEURO: GCS: E: 3 Points (To voice), V: 1 (Absent), M: 5 (Localizes pain). Moving all extremities spontaneously. PSYCH: Unable to assess Labs: CBC Recent Labs Component Name 03/15/24 0048 03/14/24 1805 03/14/24 0922 03/13/242208 WBC 14.7* 22.6* 30.6* 10.2 HGB 8.0* 10.4* 9.9* 9.6* HCT 24.0* 32.5* 30.4* 29.8* PLTCOUNT 117* - 159 - BMP Recent Labs Component Name 03/15/244703/14/24 0749 03/13/242208 NA 131* 134* 132* POTASSIUM 4.0 4.4 4.8* CL 109* 107 105 BUN 21 20 21 CREATININE 1.15* 0.92 1.01* GLUCOSE 155* 148* 201* CALCIUM 8.3* 7.9* 8.2* CO2 20* 21* 23 ANIONGAP 2* 6 4* BCR 18 22 21 OSMOLALITY 278 283 283 EGFR 46* 60* 54* LFTs Recent Labs Component Name 03/13/242208 AST 16 ALT 9 ALKPHOS 57 Coags Recent Labs Component Name 03/13/242208 PT 13.9 INR 1.1 PTT 23.3 ABG Recent Labs Component Name 03/15/24 0048 03/14/24 1846 03/14/24 0929 03/14/24 0749 PH 7.45 7.10* 7.42 7.40 PO2 120* - - 177* PCO2 31* - - 35 BE -2.0 - - -2.6* ASSESSMENT / PLAN: Emerald Villafana is a 88 year old female admitted to the Trauma ICU intubated and sedated s/p GLF. NEURO: #SDH #SAH # Hemorrhagic contusion - Neurosurgery consulted, no acute intervention - CTA 03/14 0600 grossly unchanged, no large vessel injury - CTH ordered per NSGY 03/14 1500, follow read - hold AC - continue to monitor neuro exam #Dementia - Geriatrics consult # Acute Posttraumatic Pain/Sedation - Fentanyl, Propofol gtt - wean as tolerated - Multimodal pain regimen PSYCH: - Tox Screen: +fentanyl (given prior to collection) - Alc negative HEENT: # Right frontoparietal laceration - ENT/Face consulted - s/p repair - bacitracin BID for 5 days CARDIO: # Hypotension - Continuous cardiac monitoring - MAP >65 - Vasopressors: Levophed # Atherosclerotic ulcer of aorta - Discharged from Cardiac ICU yesterday 03/13 - plan was for dc with BP control, repeat CT in 2 months RESP: # Acute respiratory failure - Intubated: ETT - Oxygen Requirements: mechanical ventilation - Continuous pulse ox - Wean ventilator as tolerated - SBT - Follow ABG GI: - Ulcer Prophylaxis: pepcid - Bowel Regimen: miralax, senna RENAL/: - Vasquez: yes - Monitor UOP HEME/ONC: # Acute Blood Loss Anemia - Transfuse for Hgb < 7 - QD CBC ID: - Tdap status: completed 03/13 - Antibiotics: Ancef x1 ENDO: - SSI - Maintain euglycemia, 140-180 MSK/SKIN: - Cervical spine status: DIET/FLUIDS/ELECTROLYTES: Diet: NPO Fluids: PRN Electrolytes: Goal K > 4, Phos > 3, Mag > 2; replete PRN ICU Checklist Feeding/fluids: NPO Analgesia: Fentanyl gtt Sedation: Propofol gtt Thromboprophylaxis: held d/t ICH Head up position: >30 Ulcer prophylaxis: Pepcid Glycemic control: SSI Spontaneous breathing trial: as able Bowel Regimen: Miralax, Senna Lines / Drains / Airways: PIVs, ETT, OGT, Vasquez Deescalation of antibiotics: n/a PT/OT: when able MEDIA ASSISTANT: when able Weight Bearing Status: as tolerated Cedillo consent: completed Disposition: Trauma ICU Discussed / Rounded with the Trauma Attending: Dr. Louie Cornejo, DO Trauma ICU March 15, 2024 7:50 AM PROGRAMMER Associated attestation - Nathan Palma MD - 03/17/2024 10:56 AM VBA PROGRAMMER I have seen and examined the patient with Dr. Cornejo , was present for the wong portions, supervised the decision making for this patient, and agree with the documentation below. In brief, Emerald Villafana is a 88 year old female who is admitted [facility] the [facility] Of note she was discharged from this hospital 1 day prior to presentation. Was found to have multiple ICH, was intubated due to altered mental status. Of note she has significant dementia at baseline. She was admitted to the trauma ICU Last 24 Hrs: Overnight arterial line was placed as the patient was hypotensive. No changes on head CT. Remains on minimal ventilator settings. On exam, she is intubated, sedated. 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 Appears stable at this time. Every hour neurologic checks. -Sedation with fentanyl and propofol, switch propofol to Precedex to wean towards extubation Cardiac: # Hypotension-likely secondary to patient's age and sedation. Fluid resuscitate as needed. 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 Pulm: # Intubation and respiratory failure secondary to trauma-minimal vent settings, we will attempt to wean towards extubation. Given her underlying dementia as well as this disease process, I am concerned she will not wean from the ventilator successfully from a mental status standpoint. GI: Stress ulcer prophylaxis and bowel regimen FEN: Continue tube feeds Renal: Trend urine output Heme: No active issues ID: No active issues Endo: Maintain euglycemia MSK: ENT consulted and repaired lacerations. Ppx: Holding thromboprophylaxis L/T/D: PIV, ETT, OG, Vasquez Dispo: Continue ICU care Family/Goals of Care: Given this patient's age and her dementia, this may well be a terminal event for her. We will discuss this with her family as far as what they would like to pursue if she were to fail extubation. I believe that a tracheostomy would be a futile thing to do for this patient. I spent 30 minutes in full attendance with this critically-ill patient in the ICU. Time spent was exclusive of separately billed procedures, treating other patients, and teaching time. The patient has a critical illness or injury with high probability of imminent or life threatening deterioration in their condition. Treatment of this patient involves high complexity decision making to assess, manipulate, and support vital system function(s) for treatment of a single or multiple vital organ system failure and/or to prevent further life- threatening deterioration of the patient's condition. I devoted full attention to the patient on rounds and I was immediately available at all other times. Nathan Palma MD Trauma, Critical Care, and Acute Care Surgery * Xiomara Diaz RCP - 03/15/2024 3:59 AM CST Problem: Mechanical Ventilation Goal: Patent airway Outcome: Progressing Goal: ET tube will be managed safely Outcome: Progressing Problem: Ineffective Airway Clearance Goal: Patent airway Outcome: Progressing Patient does not qualify for SBT at this time due to hypotension PROGRAMMER * Eddy Samson MD - 03/15/2024 1:09 AM CST Trauma ICU Overnight Events: Pt had vbg drawn which resulted with questionable values. Pt has been hard stick for labs. As pt was requiring levophed, accurate hemodynamic monitoring was needed along with adequate blood sampling.Left radial arterial line placed. Subsequent abg and labs were drawn. Discussed with attending Dr Garces. Eddy Samson MD 03/15/24 1:10 AM PROGRAMMER * Kirt Nogueira RN - 03/14/2024 8:00 PM CST Problem: Safety related to restraint use Goal: Absence of injury while restrained Outcome: Progressing Problem: Mechanical Ventilation Goal: Patent airway Outcome: Progressing Goal: Oral health is maintained or improved Outcome: Progressing Goal: Tracheostomy will be managed safely Outcome: Progressing Goal: ET tube will be managed safely Outcome: Progressing Goal: Ability to express needs and understand communication Outcome: Progressing Goal: Mobility/activity is maintained at optimum level for patient Outcome: Progressing Problem: Nutrient: Increased nutrient needs (specify) Goal: Intake percent from meals/snacks for this admission will be greater than: (specify) Outcome: Progressing Goal: Intake consistent with estimated calorie needs Outcome: Progressing Goal: Total intake will meet estimated nutrient needs Outcome: Progressing Goal: Enteral/parenteral nutrition prescription will be consistent with estimated needs Outcome: Progressing Goal: Fluid intake volume meets estimated needs Outcome: Progressing Goal: Food/nutrition information can be demonstrated Outcome: Progressing Goal: Growth velocity follows curve Outcome: Progressing Problem: Nutrient: Malnutrition Goal: Intake percent from meals/snacks for this admission will be greater than: (specify) Outcome: Progressing Goal: Intake consistent with estimated calorie needs Outcome: Progressing Goal: Total intake will meet estimated nutrient needs Outcome: Progressing Goal: Enteral/parenteral nutrition prescription will be consistent with estimated needs Outcome: Progressing Goal: Fluid intake volume meets estimated needs Outcome: Progressing Goal: Food/nutrition information can be demonstrated Outcome: Progressing Goal: Growth velocity follows curve Outcome: Progressing Problem: Nutrient: Inadequate protein-energy intake Goal: Intake percent from meals/snacks for this admission will be greater than: (specify) Outcome: Progressing Goal: Intake consistent with estimated calorie needs Outcome: Progressing Goal: Total intake will meet estimated nutrient needs Outcome: Progressing Goal: Enteral/parenteral nutrition prescription will be consistent with estimated needs Outcome: Progressing Goal: Fluid intake volume meets estimated needs Outcome: Progressing Goal: Food/nutrition information can be demonstrated Outcome: Progressing Problem: Nutrient: Decreased nutrient needs (specify) Goal: Intake percent from meals/snacks for this admission will be greater than: (specify) Outcome: Progressing Goal: Intake consistent with estimated calorie needs Outcome: Progressing Goal: Total intake will meet estimated nutrient needs Outcome: Progressing Goal: Enteral/parenteral nutrition prescription will be consistent with estimated needs Outcome: Progressing Goal: Fluid intake volume meets estimated needs Outcome: Progressing Goal: Food/nutrition information can be demonstrated Outcome: Progressing Goal: Growth velocity follows curve Outcome: Progressing Problem: Nutrients: Imbalance of nutrients Goal: Intake percent from meals/snacks for this admission will be greater than: (specify) Outcome: Progressing Goal: Intake consistent with estimated calorie needs Outcome: Progressing Goal: Total intake will meet estimated nutrient needs Outcome: Progressing Goal: Enteral/parenteral nutrition prescription will be consistent with estimated needs Outcome: Progressing Goal: Fluid intake volume meets estimated needs Outcome: Progressing Goal: Food/nutrition information can be demonstrated Outcome: Progressing Goal: Growth velocity follows curve Outcome: Progressing Problem: Skin Integrity Goal: Skin integrity is maintained or improved Outcome: Progressing Problem: Impaired Gas Exchange Goal: Resp rate/effort will be within specified limits Outcome: Progressing Problem: Ineffective Airway Clearance Goal: Patent airway Outcome: Progressing Problem: Mobility Goal: Patient's mobility/activity will be maintained as optimum level for age, diagnosis and physical limitations Outcome: Progressing Goal: Continuum of care needs are further met through referral to outpatient services when appropriate. Outcome: Progressing Goal: Patient reports the ability to perform Activities of Daily Living. Outcome: Progressing Problem: Fall Risk Goal: Fall risk and fall related injury risk are minimized (interventions related to the fall risk can be found in the flowsheet documentation) Outcome: Progressing PROGRAMMER * Belkys Retana RN - 03/14/2024 6:34 PM CST .. Care Coordination Initial Assessment Expected Discharge Date: 03/17/2024 Expected Discharge Disposition: Other (Comment) (TBD by clinical course) Transportation at Discharge: Family Prior Level of Care: Assisted Living Prior to Admit Provider: Comments: Patient lives in a memory care unit and uses a walker for ambulation at baseline. She needs help with med administration and showering. She is confused at baseline. CM will continue to follow for discharge planning needs as appropriate. Lives with: Other (Comment) (Memory Care ([facility] Physical Limitations: Ambulation with use of DME (walker) Requires Assistance With: Housekeeping;Meal Preparation;Medication Administration;Shopping;Hygiene Preferred Pharmacy: No Pharmacies Listed READMISSION RISK SCORE is 14 at 6:34 PM 03/14/2024. Met with nurse from facility(over the phone) Family Support (name and phone): Extended Emergency Contact Information Primary Emergency Contact: Meri Henderson (POA) Mobile Relation: Daughter Preferred language: Icelandic V Belt Curer needed? No Secondary Emergency Contact: Shay Washington Mobile Relation: Daughter Preferred language: Icelandic V Belt Curer needed? 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 Yes Actual Level of Care/Dispostion Details Cloth Spreader Referral: No Will continue to follow. For any questions or needs please contact: Paralegal Legal Secretary/Social Work Name/Phone number: Belkys Retana RN PROGRAMMER * JuanitaelhamGillian, - 03/14/2024 1:48 PM CST Trauma Tertiary Survey 03/14/2024 Emerald Villafana 88 year old female [id number] Comorbidities: - Dementia - CAD - COPD - HTN - HLD - GERD Admitted for these injuries found on primary/secondary survey: - SDH - SAH - Right frontoparietal [facility]: remained intubated and sedated. Ventilator settings weaned, patient tolerated SBT. Repeat CT head showing grossly stable hemorrhage. Right foreheadlaceration repaired by ENT. At this time, requiring levophed, remains on propofol and fentanyl, will wean as tolerated, continue monitoring neuro exam as sedation is weaned. Consults Service and Faculty: - Neurosurgery - ENT/Face Operations and Faculty: - Intubation 03/13- ED - Right facial laceration repair 03/14 - ENT Physical Exam Blood pressure 116/74, pulse 100, temperature (!) 101.1 ??F (38.4 ??C), resp. rate 14, height 1.702m (5' 7 ), weight 68 kg (150 lb), SpO2 99%. Temp (24hrs) Max:101.1 ??F (38.4 ??C) Intake/Output Intake/Output Summary (Last 24 hours) at 03/14/2024 1348 Last data filed at 03/14/2024 1200 Gross per 24 hour Intake 187.93 ml Output 755 ml Net -567.07 ml BM: No GENERAL Head Ecchymosis to left forehead, ecchymosis surrounding repaired stellate laceration right forehead Eyes Ecchymosis to medial right orbit. No conjunctival injection or traumatic chemosis. Ears No evidence of trauma Nose no evidence of trauma Oropharynx No evidence of trauma and ETT in place Maxillofacial As above Neck no evidence of trauma Cervical Spine: C-collar in place Neurologic Motor and Sensory Sedated; moving all extremities spontaneously Lungs/Thorax no evidence of trauma, mechanically ventilated lungs sounds present bilaterally Heart normal rate and normal rhythm Abdomen/Pelvis non-distended and no evidence of trauma Perineum Vasquez in place, no evidence of trauma RU extremity no deformity RU digits no evidence of trauma and arthritic changes IDALIA extremity no deformity, senile ecchymosis to dorsal surface of hand IDALIA digits no evidence of trauma and arthritic changes RL extremity no deformity and ecchymosis to anterior knee RL digits no evidence of trauma LL extremity no deformity and ecchymosis to anterior knee LL digits no evidence of trauma Back (Thoracic and Lumbar Spines) no evidence of trauma Pulses Carotid: 2+ Radial: 2+ Femoral: 2+ Dorsalis Pedis:2+ Posterior Tibial: 2+ Capillary Refill: less than 2 seconds Skin Color: scattered senile ecchymosis to extremities Skin Temp: Warm ECG Rhythm: normal sinus rhythm Neurologic Sedated/chemical paralysis Pupils 2mm ERRL GCS: E1 V1 M4 Pupils: equal, round, reactive to light and accommodation Labs Recent Labs Component Name 03/14/24 0749 03/13/24 2209 POTASSIUM 4.4 4.8* CO2 21* 23 BUN 20 21 CREATININE 0.92 1.01* GLUCOSE 148* 201* CALCIUM 7.9* 8.2* Recent Labs Component Name 03/14/24 0922 03/13/24 2209 WBC 30.6* 10.2 HGB 9.9* 9.6* HCT 30.4* 29.8* PLTCOUNT 159 - Films: CXR (03/13): Endotracheal tube terminates in the mid-distal thoracic trachea. Mild pulmonary vascular congestion. There is no focal consolidation, pleural effusion, or pneumothorax. The cardiomediastinal silhouette is normal for portable technique. Atherosclerotic aorta. No displaced fractures visualized. XR ABDOMEN (03/13): An enteric tube is seen coursing below the diaphragm and coils in the gastric fundus with the tip projecting over the region of the fundus/GE junction. CT CHEST/ABDOMEN/PELVIS (03/13): 1.An elongated area of low attenuation in [...] calcifications. Recommend correlation with prior mammogram results. CT HEAD/FACIAL BONES/CERVICAL/THORACIC/LUMBAR SPINE (03/13): Head: There are sequelae of traumatic brain [...] infarct in the right caudate head. The guiterrez-white matter differentiation otherwise appears normal. Periventricular white [...] are varying degrees of mild facet osteoarthritis. There are varying degrees [...] most significant at the level of L1-2. Colonic diverticulosis is partially imaged. Extensive atherosclerotic calcification of the abdominal aorta and its branch vessels. There are degenerative changes of the SI joints. Multiple simple renal cysts bilaterally. CT ANGIO BRAIN (03/14): 1.Redemonstration of sequelae of TBI was multilevel [...] hemodynamically significant stenoses identified in the head. Assessment: Cervical Spine Clear Radiologically and Clinically: No Tertiary Survey Complete (mental status adequate for full exam): No Diagnosis List: Active Problems: - SDH (left) - SAH (multi-focal) - Hemorrhagic contusions (right temporal lobe) - right frontoparietal scalp laceration & hematoma - contusion left frontal and parietal scalp - ?anterior nasal spine fx - ?grade II liver injury Incidental Findings: - small, penetrating atherosclerotic ulcer aortic arch - cardiomegaly (right heart dysfunction?) - 5.2 mm DARYL nodule - ex vacuo ventricular dilatation - old right lacunar infarct - chronic small vessel ischemic disease - rightward nasal septum deviation - advanced DDD (cervical, lumbar) - severe cervical, lumbar canal stenosis - centrilobular & paraseptal emphysema - diverticulosis - multiple simple renal cysts bilaterally - bilateral breast calcifications Plan: - Follow up XR of bilateral hands, knees - Follow up CT Chest/Abdomen in 2 months for atherosclerotic aortic ulcer per cardiology recommendations - Continue BP management per Cardiology when able (carvedilol 25mg BID, losartan 25 QD) - Repeat Lung CT in 12 months for follow up of pulmonary nodule - Mammogram screening guidelines stop at age 75, patient can discuss with primary care physician following discharge Gillian Cornejo DO 03/14/24 1:48 PM PROGRAMMER * Norris Ayers RN - 03/14/2024 1:09 PM CST Problem: Nutrient: Increased nutrient needs (specify) Goal: Intake percent from meals/snacks for this admission will be greater than: (specify) Outcome: Not Progressing Goal: Intake consistent with estimated calorie needs Outcome: Not Progressing Goal: Total intake will meet estimated nutrient needs Outcome: Not Progressing Goal: Enteral/parenteral nutrition prescription will be consistent with estimated needs Outcome: Not Progressing Goal: Fluid intake volume meets estimated needs Outcome: Not Progressing Goal: Food/nutrition information can be demonstrated Outcome: Not Progressing Goal: Growth velocity follows curve Outcome: Not Progressing Problem: Nutrient: Malnutrition Goal: Intake percent from meals/snacks for this admission will be greater than: (specify) Outcome: Not Progressing Goal: Intake consistent with estimated calorie needs Outcome: Not Progressing Goal: Total intake will meet estimated nutrient needs Outcome: Not Progressing Goal: Enteral/parenteral nutrition prescription will be consistent with estimated needs Outcome: Not Progressing Goal: Fluid intake volume meets estimated needs Outcome: Not Progressing Goal: Food/nutrition information can be demonstrated Outcome: Not Progressing Goal: Growth velocity follows curve Outcome: Not Progressing Problem: Nutrient: Inadequate protein-energy intake Goal: Intake percent from meals/snacks for this admission will be greater than: (specify) Outcome: Not Progressing Goal: Intake consistent with estimated calorie needs Outcome: Not Progressing Goal: Total intake will meet estimated nutrient needs Outcome: Not Progressing Goal: Enteral/parenteral nutrition prescription will be consistent with estimated needs Outcome: Not Progressing Goal: Fluid intake volume meets estimated needs Outcome: Not Progressing Goal: Food/nutrition information can be demonstrated Outcome: Not Progressing Problem: Nutrient: Decreased nutrient needs (specify) Goal: Intake percent from meals/snacks for this admission will be greater than: (specify) Outcome: Not Progressing Goal: Intake consistent with estimated calorie needs Outcome: Not Progressing Goal: Total intake will meet estimated nutrient needs Outcome: Not Progressing Goal: Enteral/parenteral nutrition prescription will be consistent with estimated needs Outcome: Not Progressing Goal: Fluid intake volume meets estimated needs Outcome: Not Progressing Goal: Food/nutrition information can be demonstrated Outcome: Not Progressing Goal: Growth velocity follows curve Outcome: Not Progressing Problem: Nutrients: Imbalance of nutrients Goal: Intake percent from meals/snacks for this admission will be greater than: (specify) Outcome: Not Progressing Goal: Intake consistent with estimated calorie needs Outcome: Not Progressing Goal: Total intake will meet estimated nutrient needs Outcome: Not Progressing Goal: Enteral/parenteral nutrition prescription will be consistent with estimated needs Outcome: Not Progressing Goal: Fluid intake volume meets estimated needs Outcome: Not Progressing Goal: Food/nutrition information can be demonstrated Outcome: Not Progressing Problem: Mobility Goal: Patient's mobility/activity will be maintained as optimum level for age, diagnosis and physical limitations Outcome: Not Progressing Goal: Continuum of care needs are further met through referral to outpatient services when appropriate. Outcome: Not Progressing Goal: Patient reports the ability to perform Activities of Daily Living. Outcome: Not Progressing Problem: Fall Risk Goal: Fall risk and fall related injury risk are minimized (interventions related to the fall risk can be found in the flowsheet documentation) Outcome: Not Progressing PROGRAMMER * Hansa Wolf RCP - 03/14/2024 6:14 AM CST Transport Start Time: 604 Transport Assisted by 1 # of Therapists Transport From: 330 Transport To: Ct scan and back Total Transport Time: 30 minutes PROGRAMMER * Gillian Cornejo DO - 03/14/2024 6:02 AM CST Images from the original note were not included. [facility] Trauma ICU Progress Note Admit: 03/13/2024 9:48 PM Date: March 14, 2024 Length of Stay: 0 Attending: Lennie Anna, * POD: SUBJECTIVE: [facility]Emerald Villafana 37) is a 88 year old female with PMH dementia admitted to Trauma ICU s/p GLF x2 at assisted living facility. Patient intubated for airway protection in ED. Actively bleeding head laceration sutured. Patient admitted to ICU intubated/sedated. Active Injuries / Issues: - SDH (left, 7mm) - SAH - Right frontoparietal scalp laceration Incidental Findings: - small penetrating atherosclerotic ulcer noted in the aortic arch - cardiomegaly - centrilobular and paraseptal emphysema HOSPITAL COURSE: 03/14: ENT/Face consulted for repair of complex scalp laceration. Will follow up CTA and Neurosurgery recommendations. Patient started on Levophed for MAP's 50's. Remains intubated, sedated with fentanyl and propofol, will wean as able. 03/13: Presented by air as level 1 trauma. Admitted to ICU intubated/sedated with SDH, SAH. Neurosurgery consulted and CTA to be completed. OBJECTIVE: Vital Signs: BP 102/69 (BP Location: Right arm, Patient Position: Lying) Pulse 86 Temp 97.9 ??F (36.6 ??C) Resp 13 Ht 1.702 m (5' 7 ) Wt 68 kg (150 lb) SpO2 100% Temp: [94.6 ??F (34.8 ??C)-97.9 ??F (36.6 ??C)] 97.9 ??F (36.6 ??C) Pulse: [59-93] 86 Resp: [01-11] 13 BP: (79-170)/(43-99) 102/69 O2 %: [30 %-70 %] 30 % Ventilator Settings: Ventilation Rate SET VENTILATION RATE (bpm): 14 bpm OBSERVED VENTILATION RATE (bpm): 14 bpm Insp Time: 1.07 Insp Flow (L/Min): 45 l/Min I:E Ratio: 1:3 Actual I:E Ratio: 1:3 Volumes SET TIDAL VOLUME (mL): 400 ML EXHALED TIDAL VOLUME (ml): 451 ml Observed Minute Ventilation (L/m): 6.4 Liters/Minute Ventilator Pressures OBSERVED PEAK INSPIRATORY PRESSURE (cm H2O): 31 cm H2O Mean Airway Pressure (cm H2O): 11 cm H2O PEEP/CPAP: 5 cm H20 Physical Exam: GEN: Intubated, sedated, restrained. SKIN: Warm, dry, intact. HEENT: C-collar in place. Complex, stellate facial laceration. CV: Regular rate and rhythm. RESP: Mechanically ventilated. Bilateral lung sounds. ABD: Soft, nondistended. : Vasquez in place EXT: Warm and well-perfused. NEURO: GCS: E: 1 Points (Absent), V: 1 (Absent), M: 1 (Absent) PSYCH: Unable to assess Labs: CBC Recent Labs Component Name 03/13/242208 WBC 10.2 HGB 9.6* HCT 29.8* BMP Recent Labs Component Name 03/14/24 0749 03/13/242208 NA 134* 132* POTASSIUM 4.4 4.8* CL 107 105 BUN 20 21 CREATININE 0.92 1.01* GLUCOSE 148* 201* CALCIUM 7.9* 8.2* CO2 21* 23 ANIONGAP 6 4* BCR 22 21 OSMOLALITY 283 283 EGFR 60* 54* LFTs Recent Labs Component Name 03/13/242208 AST 16 ALT 9 ALKPHOS 57 Coags Recent Labs Component Name 03/13/242208 PT 13.9 INR 1.1 PTT 23.3 ABG Recent Labs Component Name 03/14/24 0749 PH 7.40 PO2 177* PCO2 35 BE -2.6* ASSESSMENT / PLAN: Quincy Avelar is a 88 year old female admitted to the Trauma ICU intubated and sedated s/p GLF. NEURO: #SDH #SAH - Neurosurgery consulted - follow repeat CTA - hold AC - continue to monitor neuro exam #Dementia - Geriatrics consult # Acute Posttraumatic Pain/Sedation - Fentanyl, Propofol gtt - Multimodal pain regimen PSYCH: - Tox Screen: +fentanyl (given prior to collection) - Alc negative HEENT: # Right frontoparietal laceration - ENT/Face consulted - s/p repair - bacitracin BID for 5 days CARDIO: # Hypotension - Continuous cardiac monitoring - MAP >65 - Vasopressors: Levophed # Atherosclerotic ulcer of aorta - Discharged from Cardiac ICU yesterday 03/13 - plan was for dc with BP control, repeat CT in 2 months - Possible cards consult RESP: # Acute respiratory failure - Intubated: ETT - Oxygen Requirements: mechanical ventilation - Continuous pulse ox - Wean ventilator as tolerated - SBT when able - Follow VBG GI: - Ulcer Prophylaxis: pepcid - Bowel Regimen: miralax, senna RENAL/: - Vasquez: yes - Monitor UOP HEME/ONC: # Acute Blood Loss Anemia - Transfuse for Hgb < 7 - QD CBC ID: - Tdap status: completed 03/13 - Antibiotics: Ancef x1 ENDO: - SSI - Maintain euglycemia, 140-180 MSK/SKIN: - Cervical spine status: DIET/FLUIDS/ELECTROLYTES: Diet: NPO Fluids: PRN Electrolytes: Goal K > 4, Phos > 3, Mag > 2; replete PRN ICU Checklist Feeding/fluids: NPO Analgesia: Fentanyl gtt Sedation: Propofol gtt Thromboprophylaxis: held d/t ICH Head up position: >30 Ulcer prophylaxis: Pepcid Glycemic control: SSI Spontaneous breathing trial: as able Bowel Regimen: Miralax, Senna Lines / Drains / Airways: PIVs, ETT, OGT, Vasquez Deescalation of antibiotics: n/a PT/OT: when able MEDIA ASSISTANT: when able Weight Bearing Status: as tolerated Cedillo consent: completed Disposition: Trauma ICU Discussed / Rounded with the Trauma Attending: Dr. Louie Cornejo, DO Trauma ICU March 14, 2024 9:03 AM PROGRAMMER Associated attestation - Nathan Palma MD - 03/14/2024 6:03 PM VBA PROGRAMMER I have seen and examined the patient with Dr. Cornejo , was present for the wong portions, supervised the decision making for this patient, and agree with the documentation below. In brief, Emerald Villafana is a 88 year old female who is admitted to the ICU status post ground-levelfall at her [facility] care facility. Of note she was discharged from this hospital 1 day prior to presentation. Was found to have multiple ICH, was intubated due to altered mental status. Of note she has significant dementia at baseline. She was admitted to the ER. Last 24 Hrs: ENT is at bedside repairing scalp laceration On exam, she is intubated, sedated. 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 They requested a CT angiogram of the head. Every hour neurologic checks. No surgical intervention recommended. -Sedation with fentanyl and propofol, wean towards extubation Cardiac: # Hypotension-likely secondary to patient's age and sedation. Fluid resuscitate as needed. 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 Pulm: # Intubation and respiratory failure secondary to trauma-minimal vent settings, we will attempt to wean towards extubation. Given her underlying dementia as well as this disease process, I am concerned she will not wean from the ventilator from a mental status standpoint. GI: Stress ulcer prophylaxis and bowel regimen FEN: We will start tube feeds Renal: Trend urine output Heme: No active issues ID: No active issues Endo: Maintain euglycemia MSK: ENT repairing scalp/facial laceration Ppx: Holding thromboprophylaxis L/T/D: PIV, ETT, OG, Vasquez Dispo: Continue ICU care Family/Goals of Care: Given this patient's age and her dementia, she will likely never successfullyweaned from the ventilator and this is a terminal event for her. We will discuss this with her family as far as what they would like to pursue if she were to fail extubation. I believe that a tracheostomy would be a futile thing to do for this patient. I spent 32 minutes in full attendance with this critically-ill patient in the ICU. Time spent was exclusive of separately billed procedures, treating other patients, and teaching time. The patient has a critical illness or injury with high probability of imminent or life threatening deterioration in their condition. Treatment of this patient involves high complexity decision making to assess, manipulate, and support vital system function(s) for treatment of a single or multiple vital organ system failure and/or to prevent further life- threatening deterioration of the patient's condition. I devoted full attention to the patient on rounds and I was immediately available at all other times. Nathan Palma MD Trauma, Critical Care, and Acute Care Surgery * Eddy Samson MD - 03/14/2024 5:44 AM CST Trauma ICU: Pt right scalp laceration irrigated with sterile saline/betadine. Dressed with WTD saline gauze. Eddy Samson MD 03/14/24 5:45 AM PROGRAMMER * Kirt Nogueira RN - 03/14/2024 4:01 AM CST Problem: Safety related to restraint use Goal: Absence of injury while restrained Outcome: Progressing Problem: Mechanical Ventilation Goal: Patent airway Outcome: Progressing Goal: Oral health is maintained or improved Outcome: Progressing Goal: Tracheostomy will be managed safely Outcome: Progressing Goal: ET tube will be managed safely Outcome: Progressing Goal: Ability to express needs and understand communication Outcome: Progressing Goal: Mobility/activity is maintained at optimum level for patient Outcome: Progressing Problem: Nutrient: Increased nutrient needs (specify) Goal: Intake percent from meals/snacks for this admission will be greater than: (specify) Outcome: Progressing Goal: Intake consistent with estimated calorie needs Outcome: Progressing Goal: Total intake will meet estimated nutrient needs Outcome: Progressing Goal: Enteral/parenteral nutrition prescription will be consistent with estimated needs Outcome: Progressing Goal: Fluid intake volume meets estimated needs Outcome: Progressing Goal: Food/nutrition information can be demonstrated Outcome: Progressing Goal: Growth velocity follows curve Outcome: Progressing Problem: Nutrient: Malnutrition Goal: Intake percent from meals/snacks for this admission will be greater than: (specify) Outcome: Progressing Goal: Intake consistent with estimated calorie needs Outcome: Progressing Goal: Total intake will meet estimated nutrient needs Outcome: Progressing Goal: Enteral/parenteral nutrition prescription will be consistent with estimated needs Outcome: Progressing Goal: Fluid intake volume meets estimated needs Outcome: Progressing Goal: Food/nutrition information can be demonstrated Outcome: Progressing Goal: Growth velocity follows curve Outcome: Progressing Problem: Nutrient: Inadequate protein-energy intake Goal: Intake percent from meals/snacks for this admission will be greater than: (specify) Outcome: Progressing Goal: Intake consistent with estimated calorie needs Outcome: Progressing Goal: Total intake will meet estimated nutrient needs Outcome: Progressing Goal: Enteral/parenteral nutrition prescription will be consistent with estimated needs Outcome: Progressing Goal: Fluid intake volume meets estimated needs Outcome: Progressing Goal: Food/nutrition information can be demonstrated Outcome: Progressing Problem: Nutrient: Decreased nutrient needs (specify) Goal: Intake percent from meals/snacks for this admission will be greater than: (specify) Outcome: Progressing Goal: Intake consistent with estimated calorie needs Outcome: Progressing Goal: Total intake will meet estimated nutrient needs Outcome: Progressing Goal: Enteral/parenteral nutrition prescription will be consistent with estimated needs Outcome: Progressing Goal: Fluid intake volume meets estimated needs Outcome: Progressing Goal: Food/nutrition information can be demonstrated Outcome: Progressing Goal: Growth velocity follows curve Outcome: Progressing Problem: Nutrients: Imbalance of nutrients Goal: Intake percent from meals/snacks for this admission will be greater than: (specify) Outcome: Progressing Goal: Intake consistent with estimated calorie needs Outcome: Progressing Goal: Total intake will meet estimated nutrient needs Outcome: Progressing Goal: Enteral/parenteral nutrition prescription will be consistent with estimated needs Outcome: Progressing Goal: Fluid intake volume meets estimated needs Outcome: Progressing Goal: Food/nutrition information can be demonstrated Outcome: Progressing Goal: Growth velocity follows curve Outcome: Progressing Problem: Skin Integrity Goal: Skin integrity is maintained or improved Outcome: Progressing Problem: Impaired Gas Exchange Goal: Resp rate/effort will be within specified limits Outcome: Progressing Problem: Ineffective Airway Clearance Goal: Patent airway Outcome: Progressing Problem: Mobility Goal: Patient's mobility/activity will be maintained as optimum level for age, diagnosis and physical limitations Outcome: Progressing Goal: Continuum of care needs are further met through referral to outpatient services when appropriate. Outcome: Progressing Goal: Patient reports the ability to perform Activities of Daily Living. Outcome: Progressing PROGRAMMER * Karrie Reid RCP - 03/14/2024 1:20 AM CST Transport Start Time: 29 Transport Assisted by 1 # of Therapists Transport From: ER Transport To: 3S ICU Total Transport Time: 15 min Patient's oral cavity suctioned, including above the airway cuff, prior to transport? yes PROGRAMMER * Hansa Wolf RCP - 03/14/2024 12:53 AM CST Received vented pt from ER @ 0045 PROGRAMMER * Dali Spear - 03/14/2024 12:40 AM CST assisted Pt's family in moving from the ED to [address] [place] [address] waiting area, as Pt was transported. spoke with unit charge nurse of [address] [place] [address] to confirm Pt's 2 family members could come upstairs. Family just wants to see Pt settled into her room and then it is their plan to go home. Family was thankful for the assistance. Pastoral care is available 12/11. Please call [phone] if requested or needed. PROGRAMMER * Karrie Reid RCP - 03/13/2024 10:32 PM CST Date and Time of Intubation: 03/13/242208 Tracheal Tube Type Placed: ETT Size of Tube Placed: 7.5 Tube secured with: securing device Correct Tube Placement Verified by CXR? yes CO2 Detector or Portable Capnometer Used? Co2 detector Breath Sounds Post-Intubation: bilateral Symmetrical Chest Rise and Fall Noted? yes ETT position at teeth or lips: 23@G Pt placed on (S)CMV 14/400/+5 tolerating well PROGRAMMER * Clarissa Combs - 03/13/2024 10:12 PM CST Level 1 trauma: 88 y/o female, ground level fall, forehead hematoma responded to T1. Patient was flown in by [employer]. attempted to contact Patient'Meri erwin, at [phone], but there was no answer. Cloth Spreader will contact if needed after contact made with daughter. can be reached by calling [phone]. T01/T01 PROGRAMMER * Eva Scott MSW - 03/13/2024 10:08 PM CST ED Trauma Note Level of Trauma: 1 Mechanism of Trauma: Fall PTs Name: Emerald Villafana : EMS Company: [employer] location: [facility] Family Contact: LENNY Henderson (stepdaughter) [phone] VOV: NA Substance Abuse: NA Comments: Pt arrived via EMS from her [facility]. Pt noted to have paperwork with her indicating pt is a full code. EMS noted that pts family was at facility and aware pt was being brought to [facility]. Pt working with trauma team, full assessment deferred at this time. SW will continue to follow. PROGRAMMER documented in this encounter H&P Notes * Alexander Mohamud MD - 03/13/2024 10:28 PM CST TRAUMA ADMISSION HISTORY & PHYSICAL Date of Admission:03/13/2024 Date of Consult:03/13/2024 9:56 PM Time Seen: 21:53arrival Activation level: 1 Trauma Team: Attending: Dr. Anna Senior: Roly Iván: Cade PRE-HOSPITAL COURSE: Pre Hospital (mechanism, treatments, clinical course): Description of mechanism: ground level fall, unwitnessed Trauma occurred at ---- 20:00 . Clinical course of patient: Patient arrived by Helicopter from scene Intubated in the field: No Blood given prior to arrival: None IV fluids given: No tourniquet placed in the field: No Medications administered prior to arrival: None Lines present prior to arrival: Peripheral IVs HOSPITAL COURSE (chief complaint): This is a 88 year old female presenting as a level 1 trauma following a ground level fall. The falloccurred at 20:00. There was an unknown LOC. They arrived with a backboard, without a cervical collar. Complains of Pain: unable to obtain due to: acuity of patient condition Products & Meds: [facility] Crystalloid Boluses: No Blood Products: None Other: No TXA: No Tdap: no Antibiotics: Ancef Procedures: Suture of bleeding vessels in ED PAST MEDICAL HISTORY If applicable, unable to obtain due to: acuity of patient condition Allergies: NKDA Medications: Unknown No current outpatient medications on file prior to encounter. Immunizations: up to date Past Medical History: Dementia No past medical history on file. Hospitalized: no recent hospitalizations Surgical History: Unknown No past surgical history on file. Social: Social History Socioeconomic History Marital status: Not on file Spouse name: Not on file Number of children: Not on file Years of education: Not on file Highest education level: Not on file Occupational History Not on file Tobacco Use Smoking status: Not on file Smokeless tobacco: Not on file Substance and Sexual Activity Alcohol use: Not on file Drug use: Not on file Sexual activity: Not on file Other Topics Concern Not on file Social History Narrative Not on file Social Determinants of Health Financial Resource Strain: Not on file Food Insecurity: Not on file Transportation Needs: Not on file Stress: Not on file Housing Stability: Not on file - Alcohol: unknown drinking history - Drug use: Unknown due to patient condition Last Meal: Unknown due to patient condition Last menstrual Period: post-menopausal No family history on file. REVIEW OF SYSTEMS: If applicable, unable to obtain due to: acuity of patient condition PRIMARY SURVEY Airway: patent Breathing: clear to auscultation bilaterally Circulation: intact Cap Refill: <2 seconds Skin: cool Skin Color: appropriate Pulses Carotid: 2+ Radial: 2+ Femoral: 2+ Dorsalis Pedis: 1+ Posterior Tibial: 1+ Disabililty GCS7 Verbal2 (Incomprehensible), Motor4 (Withdraws from pain), Eyes1 Points (Absent) Pupils: normal, equal and reactive to light SECONDARY SURVEY Blood pressure 103/43, pulse 83, temperature 97.8 ??F (36.6 ??C), resp. rate 14, height 1.702 m (5'7 ), weight 68 kg (150 lb), SpO2 99%. Temp Av.8 ??F (36.6 ??C) Min: 97.8 ??F (36.6 ??C) Max: 97.8 ??F (36.6 ??C), Pulse Av.3 Min: 82 Max: 93, Resp Av Min: 14 Max: 22, BP Min: 97/73 Max: 140/90 Intake/Output Summary (Last 24 hours) at 03/13/20242228 Last data filed at 03/13/20242218 Gross per 24 hour Intake 0.22 ml Output -- Net 0.22 ml Physical Exam Head: Actively bleeding laceration to right scalp Eyes: PERRLA 3mm, no conjunctival hemorrhage Ears: Tympanic membranes clear, no hemotympanum Nose: No evidence of trauma, no septal hematoma Oropharynx: pink, atraumatic, no malocclusion Maxillofacial: Face stable, not TTP Neck: no evidence of trauma, no midline tenderness, no step-off, and no gross deformities Cervical Spine: Not TTP, no step offs, no crepitus Lungs: decreased breath sounds-right Chest: no evidence of trauma CV: RRR, no murmurs, rubs, or gallops Abdomen/Pelvis: SNTND, normoactive bowel sounds. Pelvis stable. : Normal female external genitalia Rectal Exam: no gross blood RU extremity: no evidence of trauma IDALIA extremity: no evidence of trauma RL extremity: no evidence of trauma LL extremity: no evidence of trauma Back (Thoracic and Lumbar Spines): Not TTP, no step offs, no crepitus Skin: 4 cm laceration on right forehead SECONDARY DATA ED Trauma FAST Ultrasound Deferred for CT scans Data Review: Results for orders placed or performed during the hospital encounter of 03/13/24 (from the past 24 hour(s)) ALCOHOL ETHYL BLOOD Result Value Ref Range Ethanol (mg/dL) <10 <10 mg/dL Ethanol Calculated (g/dL) <0.010 <=0.010 g/dL CBC W AUTO DIFFERENTIAL Result Value Ref Range WBC 10.2 4.0 - 10.7 x10E9/L RBC Count 3.17 (L) 3.90 - 5.20 x10E12/L Hemoglobin 9.6 (L) 11.9 - 15.8 g/dL Hematocrit 29.8 (L) 34.8 - 46.1 % MCV 94.0 80.0 - 98.0 fL MCH 30.3 26.7 - 33.6 pg MCHC 32.2 31.7 - 36.3 g/dL RDW-CV 13.4 11.3 - 14.8 % Platelet Count MPV Neutrophil % 87.6 (H) 41.0 - 74.0 % Lymphocyte % 6.8 (L) 17.0 - 47.0 % Monocyte % 4.2 3.0 - 11.0 % Eosinophil % 0.7 0.0 - 7.0 % Basophil % 0.2 0.0 - 1.6 % Immature Granulocytes % 0.5 0.0 - 1.0 % Neutrophil Absolute 8.95 (H) 1.60 - 7.50 x10E9/L Lymphocyte Absolute 0.69 (L) 1.00 - 4.40 x10E9/L Monocyte Absolute 0.43 0.15 - 1.00 x10E9/L Eosinophil Absolute 0.07 0.00 - 0.60 x10E9/L Basophil Absolute 0.02 0.00 - 0.13 x10E9/L LIPASE BLOOD Result Value Ref Range Lipase 14 8 - 78 U/L PT-INR [facility] Result Value Ref Range PT 13.9 12.1 - 14.8 Seconds INR 1.1 See Comment TYPE + SCREEN PANEL Result Value Ref Range Antibody Screen NEG ABO Rh O POS COMPREHENSIVE METABOLIC PANEL Result Value Ref Range BUN 21 7 - 26 mg/dL Creatinine 1.01 (H) 0.56 - 0.96 mg/dL Sodium 132 (L) 136 - 145 mmol/L Potassium 4.8 (H) 3.5 - 4.5 mmol/L Chloride 105 98 - 107 mmol/L CO2 23 22 - 29 mmol/L Glucose 201 (H) 70 - 99 mg/dL Calcium 8.2 (L) 8.4 - 10.2 mg/dL Protein Total 5.4 (L) 6.0 - 8.3 g/dL Albumin 2.8 (L) 3.4 - 5.0 g/dL Bilirubin Total 0.8 0.2 - 1.2 mg/dL Alkaline Phosphatase 57 40 - 150 U/L ALT 9 5 - 55 U/L AST 16 5 - 34 U/L Anion Gap 4 (L) 6 - 16 BUN/Creatinine Ratio 21 7 - 23 Osmolality Calculated 283 275 - 295 mOsm/kg Albumin/Globulin Ratio 1.1 1.1 - 2.3 eGFR by CKD-EPI 54 (L) >=90 mL/min/1.73 m2 PTT [facility] Result Value Ref Range APTT 23.3 23.0 - 38.4 Seconds EtOH: None Imaging: CXR: Endotracheal tube terminates in the mid-distal thoracic trachea. Increased pulmonary vascular markings and diffuse subtle interstitial opacities likely represent venous congestion and interstitial edema. There is no focal consolidation, pleural effusion, or pneumothorax. The cardiomediastinal silhouette is normal for portable technique. No displaced fractures visualized. KUB XR: An enteric tube is seen coursing below the diaphragm and coils in the gastric fundus with the tip projecting over the region of the fundus/GE junction. CT Head: Acute subdural hematoma up to 7 mm in maximum thickness layering along the left tentorial leaflet. Subarachnoid blood products most prominent in the bilateral sylvian fissures and in small volume within the basal cisterns which are otherwise patent. No significant mass effect or midline shift. Right frontoparietal scalp laceration, no underlying calvarial fracture. Brain injury guidelines: Skull fracture: No Subdural hematoma: 5-7mm. Epidural hematoma: No epidural hematoma. Intraparenchymal hemorrhage: No intraparenchymal hemorrhage. Subarachnoid hemorrhage: Scattered-bihemispheric. Intraventricular hemorrhage: No. Midline shift: No. CT Facial Bones: No acute facial bone fractures are identified. CT C Spine: No evidence of acute fracture CT T Spine: No evidence of acute fracture CT L Spine: No evidence of acute fracture CT Chest/Abd/Pelvis: 1. No acute visceral, vascular, or osseus injury identified in the chest, abdomen, or pelvis. 2. Suggestion of a small penetrating atherosclerotic ulcer noted in the aortic arch distal to the left subclavian artery. Multiple wall irregularities of the thoracic aorta is noted, likely secondaryto atherosclerotic disease. 3. Cardiomegaly. There is reflux of contrast into the IVC and hepatic veins consistent with right heart dysfunction. 4. Thickening of the intralobular septa suggestive of pulmonary edema. Centrilobular and paraseptalemphysematous changes are noted. 5. Colonic diverticulosis without evidence of diverticulitis. Additional X-rays or Imaging: None Consultants: Service:Neurosurgery Name of Resident: Pramod Soto MD Time of Consult: 23:40 IP CONSULT TO NUTRITIONAL SERV ASSESSMENT: Active Problems: Subarachnoid bleed (HCC) (POA: Unknown) Altered mental status, unspecified altered mental status type (POA: Unknown) Fall, initial encounter (POA: Unknown) Respiratory failure after trauma (HCC) (POA: Unknown) Trauma (POA: Unknown) Impaired mobility and ADLs (POA: Unknown) Acute pain (POA: Unknown) Subdural hematoma (HCC) (POA: Unknown) This is a 88 year old female presenting as a level 1 trauma following ground level fall, unwitnessed with injuries as listed below, trauma assessment ongoing. PLAN: Injuries: Laceration to right scalp Subarachnoid hemorrhage Subdural hematoma Incidental findings: final reads pending Neuro: #subdural hematoma, #subarachnoid hemorrhage, #altered mental status, and - No acute intracranial injury - Continue to monitor neurologic exam - Please obtain repeat head CTA 6 hours after original to assess for stability vs progression of hemorrhage - Recommend holding anticoagulation/ antiplatelet medications at this time - Overall care per trauma - Page Neurosurgery and obtain STAT head CT with decline in neuro exam #acute traumatic pain - Multimodal pain control: Scheduled tylenol, Morphine, and Dilaudid - Urine drug screen: Pending, not yet collected EtOH counseling: None HEENT: #Laceration to left scalp -Appreciate plastics intervention and recommendations Cardiac: - no acute issues - Continuous cardiac monitoring in ED - Telemetry upon admission: Ordered - history of cardiovascular disease - MAP goal >65 Home medications resumed: None Home medications held: All Pulm: #Intubated and #acute respiratory failure secondary to trauma - Continuous pulse oximetry - Encourage hourly IS. - Bronchial hygiene with PEP device every 4 hours while awake - CXR: No acute findings on initial CXR - Smoking cessation counseling: not discussed at this time - Incidental pulmonary nodules: not discussed at this time GI: No acute issues Diet: NPO except for medications IVF: fentaNYL, Last Rate: 25 mcg/hr (03/13/24 2215) propofol, Last Rate: 10 mcg/kg/min (03/13/24 2249) mL/h - Within normal limits, no plan to repeat BMP - Replace lytes PRN /Renal: No acute issues - Strict I/O q1h - UA: not indicated Heme: - No acute issues - No clinical concern for active hemorrhage, no plan to repeat CBC ID: No acute issues - Antibiotics: Ancef - Tdap yes Endo: - - no acute issues MSK: - No acute issues Cervical collar: clearance not yet attempted Activity orders: Bedrest PT/OT: not ordered, intubated and sedated Wound care: Apply bacitracin 4x daily. Dressing changes as needed. Ppx: - GI: Protonix - VTE: No - - contraindicated due to Intracranial hemorrhage L/T/D: Peripheral IVs Dispo: Trauma ICU Emergent Operative Procedure Requiring 15 minutes to OR NO Time OR contacted N/A Time in OR N/A Alexander Mohamud MD [facility] March 13, 2024 10:29 PM PROGRAMMER Associated attestation - Wilfrido, Lennie Donovan MD - 03/16/2024 11:20 AM VBA PROGRAMMER I saw and evaluated the patient on the date of service. I discussed the plan of care with the resident. I reviewed all relevant labs, rads myself. Agree with note, except as documented here. Paged out as a level 1 trauma activation. I was present on patient arrival. 88 yo F S/p fall Active arterial hemorrhage from right forehead wound I placed hemostatic sutures GCS 8 Intubated in the ED for low GCS and to facilitate work up Forehead laceration, stellate with soft tissue loss, down to exposed bone Wash out performed by trauma team Plastic surgery consulted TBI, SAH, SDH Pending repeat CT H 6 hrs Keppra NSGY consutled Q1 hr neurochecks Admit trauma ICU I updated family at the ICU bedside Lennie Anna MD 03/16/2024 11:17 AM documented in this encounter Procedure Notes * Eddy Samson MD - 03/15/2024 12:24 AM CST Procedure: Left Arterial Line Insertion Pre-operative Diagnosis: Need for invasive blood pressure monitoring Post-operative Diagnosis: Same Surgeon: Eddy Samson MD Assistants: None Anesthesia: Fentanyl drip Indication for Procedure: Emerald Villafana is a 88 year old female who requires accurate blood pressure measurements for hemodynamic monitoring. Consent previously obtained due to ICU status. Procedure Details: A timeout was performed prior to the procedure and the correct patient, site, and procedure were identified. All were in agreement and elected to proceed. A site on the left wrist was chosen and a radial artery pulse was palpated. An Hiro test was performed to assess for adequate collateral circulation with the ultrasound and the hand had adequate collateral circulation. The area was prepped anddraped in the usual sterile fashion. Using ultrasound guidance a radial arterial catheter was inserted into the left radial artery using the modified Seldinger technique. An adequate waveform was obtained. The line was sutured in place using a 3-0 silk suture and dressed. The patient tolerated the procedure without difficulty. Dr. Garces was available for all critical portions of the procedure Findings: Successful placement of left arterial line Estimated Blood Loss: 1mL Complications: None. Disposition: ICU Eddy Samson MD 03/15/24 12:25 AM PROGRAMMER Associated attestation - Inez Garces MD - 03/15/2024 1:39 AM VBA PROGRAMMER I was not physically present for the procedure but was immediately available if needed. Alma Rosa Garces MD civil draftsman Trauma, Acute Care Surgery, and Surgical Critical Care * Narinder Nevarez DO - 03/13/2024 10:56 PM CSTAssociated Order(s): Intubation 03/13/2024 10:56 PM Intubation Date/Time: 03/13/2024 10:10 AM Performed by: Narinder Nevarez DO Authorized by: Luther Bridges MD Consent: Consent obtained: Emergent situation [place] protocol: Immediately prior to procedure, a time out was called: yes Patient identity confirmed: Arm band Pre-procedure details: Indications: airway protection Indications comment: Sedation for extensive head laceration due to AMS Patient status: Altered mental status Look externally: no concerns Mouth opening - incisor distance: 3 or more finger widths Obstruction: none C-collar present comment: C-collar removed for intubation and in-line cervical stabilization maintained Pharmacologic strategy: RSI Induction agents: Etomidate Paralytics: Rocuronium Procedure details: Preoxygenation: Nasal cannula CPR in progress: no Number of attempts: 1 Successful intubation attempt details: Intubation method: Oral Intubation technique: video assisted Laryngoscope blade: Hypercurved and Mac 3 Bougie used: no Grade view: II Tube size (mm): 7.5 Tube type: Cuffed Tube visualized through cords: yes Placement assessment: ETT at teeth/gumline (cm): 23 Tube secured with: ETT gupta Breath sounds: Equal Placement verification: chest rise, colorimetric ETCO2, CXR verification, direct visualization, equal breath sounds and tube exhalation CXR findings: Appropriate position Post-procedure details: Procedure completion: Tolerated well, no immediate complications PROGRAMMER Associated attestation - Luther Bridges MD - 03/14/2024 12:17 PM VBA PROGRAMMER I was present for the entirety of the procedure performed by the resident. I was present for the wong and critical portions of the procedure performed by the resident. I attest to the description of the procedure as documented by the resident. Luther Bridges M.D. Emergency Medicine [facility] documented in this encounter Consult Notes * Alexander Ibarra MD - 03/29/2024 10:26 AM CSTAssociated Order(s): IP CONSULT TO UROLOGY Images from the original note were not included. [facility] Division of Urologic Surgery New Consult Note Attending: Joel Morales MD Patient Name: Emerald Vlilafana Age/Gender: 88 year old female : 1935 Date: 03/29/2024 Reason for Consult: Urinary Retention HPI: Emerald Villafana is a 88 year old female who presented on 03/13 after fall. Sustained SDH, SAH, hemorrhagic contusion, scalp laceration/contusion. She had developed urinary retention requiring catheter placement. Did have short course of spontaneous void with purewick, but developed retention again requiring straight cath. Today, vasquez catheter was replaced by nursing and was consulted for further recs. She is AAOx1 limiting history. No prior or abdominal surgery. Former smoker Past Medical History: Diagnosis Date CAD (coronary artery disease) COPD (chronic obstructive pulmonary disease) (HCC) Dementia without behavioral disturbance (HCC) GERD (gastroesophageal reflux disease) HLD (hyperlipidemia) HTN (hypertension) No current facility-administered medications on file prior to encounter. Current Outpatient Medications on File Prior to Encounter Medication Sig Dispense Refill ascorbic acid (Vitamin C) 500 MG tablet Take 1 (one) tablet by mouth once daily aspirin (Aspirin) 81 MG chew tablet Take 1 (one) tablet by mouth once daily 30 tablet 2 atorvastatin (Lipitor) 20 MG tablet Take 1 (one) tablet by mouth at bedtime 30 tablet 3 calcium carbonate (Tums) 500 MG chew tablet Take 3 (three) tablets by mouth 2 times daily with morning and evening meal carvedilol (Coreg) 25 MG tablet Take 1 (one) tablet by mouth 2 times daily with morning and eveningmeal 60 tablet 3 cholestyramine (Questran) 4 g packet Take 1 (one) packet by mouth once daily evolocumab (Repatha) 140 MG/ML prefilled syringe Inject 140 (one hundred forty) mg subcutaneously every 14 days FLUoxetine (PROzac) 20 MG capsule Take 1 (one) capsule by mouth once daily hyoscyamine CR 12hr (Levbid) 0.375 MG tablet Take 1 (one) tablet by mouth once daily lansoprazole (Prevacid) 30 MG capsule Take 1 (one) capsule by mouth daily before breakfast loperamide (Imodium) 2 MG capsule Take 1 (one) capsule by mouth as needed for Diarrhea losartan (Cozaar) 25 MG tablet Take 1 (one) tablet by mouth once daily 30 tablet 3 raloxifene (Evista) 60 MG tablet Take 1 (one) tablet by mouth once daily traMADol (Ultram) 50 MG tablet Take 1 (one) tablet by mouth every 6 hours as needed for Pain Allergies Allergen Reactions Ciprofloxacin Rash Quinolones Unknown Sulfa Antibiotics Unknown Past Surgical History: Procedure Laterality Date Knee Replacement Left Social History Socioeconomic History Marital status: Tobacco Use Smoking status: Former Vaping Use Vaping status: Unknown Social History Narrative Merged History Encounter No family history on file. REVIEW OF SYSTEMS Limited due to AAOx1 PHYSICAL EXAM Vitals: 03/28/24 2001 03/29/24 0050 03/29/24 0449 03/29/24 0812 BP: 127/55 152/56 143/73 162/98 Pulse: 76 71 78 95 Resp: 16 16 16 Temp: 98.3 ??F (36.8 ??C) 97.6 ??F (36.4 ??C) 97.8 ??F (36.6 ??C) 98.2 ??F (36.8 ??C) SpO2: 96% 98% 96% Weight: Height: Estimated body mass index is 30.32 kg/m?? as calculated from the following: Height as of this encounter: 1.702 m (5' 7 ). Weight as of this encounter: 87.8 kg (193 lb 9.6 oz). Gen: No acute distress HEENT: AT/NC, EOMI CV: RRR Pulm: Nonlabored respirations Abd: Soft, NT/ND : Vasquez draining clear yellow urine. MSK: WWP, no cyanosis or edema Skin: Normal color and turgor, no lesions noted Neuro: Moving all extremities spontaneously, no focal deficits Psych: AAOx1 Recent Labs: CBC: Recent Labs Component Name 03/25/24 1032 WBC 9.1 HGB 9.6* HCT 30.9* BMP: Recent Labs Component Name 03/25/24 1032 NA 143 CL 106 CO2 26 BUN 18 CREATININE 0.71 Recent Labs Component Name 03/13/24 2209 PT 13.9 PTT 23.3 INR 1.1 Imaging: CT CAP 1.An elongated area of low attenuation in [...] calcifications. Recommend correlation with prior mammogram results. Microbiology: none Pathology: none Assessment and Plan: Emerald Villafana is a 88 year old female here for GLF, with urinary retention. 2/2 her mobility and recent head injuries. May improve with time. - maintain Vasquez catheter to gravity drainage. - Pt with plans for discharge in next week or so. - can re-attempt void trial closer to discharge in the am times. - if fails, nursing can replace catheter and will schedule outpatient void trial. Staff: Dr. Andrew Ibarra MD PGY4 03/29/24 10:26 AM PROGRAMMER * Angelique Cortes MD - 03/18/2024 10:40 AM CSTAssociated Order(s): IP CONSULT TO PALLIATIVE CARE Images from the original note were not included. [facility] Pall[facility] PALLIATIVE MEDICINE CONSULT NOTE Emerald Villafana Age: [age] year old Date of : 1935 330/ Date of Admission: 03/13/2024 Date of Consult: 03/18/2024 Hospital Day #: LOS: 2 days Primary Care Physician: Physician None Consult requested by: trauma team Reason for consult: complex decision making. Assessment : 88 yo female from assisted living memory care unit, ambulatory, very active in social activities, able to follow a conversation for a few minutes and then gets tangential, with episodes of sundowningwith easy frustration but otherwise very sweet, FAST likely 6E. 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 Same day of discharge with 2 falls, after the initial fall evaluated by EMS without any evidence of abnormalities, but after the second fall evidence of bleeding from scalp and altered mental status. Intubated in the ED for GCS 7, hypotensive. Had evidence of active arterial hemorrhage from right forehead wound and had hemostatic sutures placed and evidence of SDH and bilateral SAH. At admission code status changed to DNR. Has remained intubated, off sedation for 2 days. Requiring RBC transfusions for acute anemia without evidence of bleeding. Hospital admission with marked hypotension although improving and pressors able to be discontinued yesterday. Today more awake and able to follow some commands with possible plan for extubation in the next days. She appears comfortable and asymptomatic. Daughter is at bedside and she states that she has had the help of her sister and daughter to make decisions. She was DNR/DNI but information not available at admisison here. Although she thinks theywould have agreed to intubation to facilitate care (sutures in the ED) and only for a short period of time. They are hoping her mental status improves to the point to be extubated but would not want to intubate her again. We discussed how with the dementia, mental status can take longer to improve and with the admission she might not improve back to her baseline. They have already been thinking about it and think she might need placement afterwards. We also discussed the option of hospice, specially if she is not able to eat appropriately after extubation. They have talked in the past about avoiding feeding tubes and if she is not able to eat, hospice will be considered. Plan is to evaluate how she does in the next days and make decisions accordingly. Blood pressure will need careful adjustment of medications given the aortic ulcer but current hypotension and likely fall leading to admission from hypotension. Currently holding antihypertensives. Summary of Recommendations: Plan: Pain management: from fall and head trauma. - continue acetaminophen but consider change to 1g TID instead of q 4h - continue fentanyl for now that remains intubated - unlikely to require opioids after extubation - Do not restart tramadol at discharge HTN with aortic ulcer, currently hypotensive - continue to hold antihypertensives - should be re-started slowly while monitoring for orthostatic hypotension Dementia with superimposed encephalopathy - DC opioids when possible - has history of sundowning, although not taking any medications - continue to monitor - DC megestrol (no evidence of benefit and high risk of side effects) Code status before consult: DNR - If Pulseless No CPR, No Shock Current code status: DNR, should be changed to DNR/DNI once extubated Decision maker: Healthcare LENNY (daughter) Stated Goals: To be comfortable and return home to be able to enjoy her life. Get out of the hospital Advance Care Planning Advance Care Planning Goals of Care A voluntary discussion was had with the power of regulatory attorney for health care regarding goals of care. The patient has one or more life-limiting conditions. - The patient has the following serious conditions: Advanced dementia and Intracranial hemorrhage, aortic ulcer - Recent functional status: Decline in function - It would not be a surprise if the patient were to within the next year - Patient's goals of care include return home and visit with family Current active code status DNR - IF PULSELESS NO CPR, NO SHOCK - The patient would be OK with admission to the hospital for care - The patient would be OK with admission to the ICU for care - Estimated level of understanding: Good - Additional care recommended: Ongoing goals of care conversations Advance Care Planning Details A voluntary discussion was had with the power of regulatory attorney for health care regarding advance care planning. Details of health status 88yo female with dementia FAST 6E, recent admission with HTN and aortic atherosclerotic ulcer with medical management to reduce blood pressure, with two falls at arrival at home complicated with hemorrhagic contusion and SDH/ICH with altered mental status requiring intubation. - Types of advance directives discussed: goals of care discussion - Prognosis shared with patient/family: continued decline - Patient agrees to the following: being in the hospital and being in the ICU - Patient declines the following: CPR, being on a ventilator, having artificial nutrition and undergoing invasive procedures - Patient's preferred end-of-life care location: home Discussion Emerald lives in memory care from assisted living, she has a big heart always looking at the world with her pink colored lenses , seeing the best in people and every situation, even with hr dementia.She is still ambulatory and likes to interact with other residents and participate in activities, gets confused easily and has sundowning. The goal is for her to be comfortable and enjoy the rest of her life, remain at home although probably she will need to be placed after this admission. Family is clear on the procedures that want to avoid in order to keep her comfortable, recognizing her dementia and age, no surgical interventions, no reintubation after extubation, no feeding tubes. Expected discharge destination: pending PT/OT evaluation, unlikely to return to prior [facility], functional decline is expected. HPI: 88 yo female from assisted living memory care unit, with prior CAD s/p stent, dementia, COPD (not on O2), HLD, HTN, GERD, recent admission from 03/11 to 03/13 with malignant hypertension and a penetrating atherosclerotic ulcer with associated small intramural hematoma along the distal aortic arch with no indication for surgical intervention and was medically managed in the CCU with IV antihypertensives and then transitioned to PO and was discharged home. She presented the evening of discharge after two ground level fall with altered mental status, intubated in the ED for GCS 7, hypotensive. Had evidence of active arterial hemorrhage from right forehead wound and had hemostatic sutures placed and evidence of SDH and bilateral SAH. At admission code status changed to DNR. Has remained intubated, off sedation for 2 days. Requiring RBC transfusions for acute anemia without evidence of bleeding. Hospital admission with marked hypotension although improving and pressors able to be discontinued yesterday. Today more awake and able to follow some commands. Daughter (LENNY) at bedside, states she has remained calmed, does not appear in distress. Palliative Assessment: Patient able to report symptom distress?: No Pain: No Dyspnea: No Nausea and Vomiting: No Last BM: Last BM (Date): 03/15/24 (03/18/2024 8:00 AM) Bowel regimen: docusate, miralax, senna Anxiety: No Depression: No PHQ No data to display Advance Directives Advance Directives: 03/14/2024 Advance Directive Screening Type of Directive Durable Power of Safety Security Officer for Healthcare Copy Available Yes, electronic copy available Is copy reviewed and most current Yes, Reviewed & most current Support system: supportive Living situation: Assisted living facility Support system includes: family Social concerns: none Financial concerns related to healthcare expenses? No Source of strength: family Jehovah'S Witness affiliation: Unknown Spiritual concerns: Peace Are there any specific practices or restrictions we should know about in providing your medical care? No needs identified No issues identified Performance Score/Scales: PPS: Palliative Performance Scale: 80 % - Ambulation: Full, Activity & Evidence of Disease: Normal activity with effort Some evidence of disease, Self-Care: Full, Intake: Normal or reduced, Conscious Level: Full (prior to admisison) ECO - Restricted to physically strenuous activity but ambulatory & able to carry out work of a light or sedentary nature (prior to admission) ESAS : No data to display FRAIL Screening: Fatigue: Does the patient report feeling fatigue? No Resistance: Cannot walk up one flight of stairs? Yes Aerobic: Cannot walk one block? No Illnesses: Does patient have more than 5 illnesses? yes Weight Loss: Has patient lost more than 5% of body weight in last 6 months? No FRAIL Score: 2/5 (one point for each yes) (Scoring: Greater than or equal to 3 = Frail) FAST Scale Stage 6e: Fecal Incontinence, (occasional or more frequently over the past weeks). Current Inpatient Medications Scheduled: 0.9% NaCl injection 3 mL, Intracatheter, q8h acetaminophen (Tylenol) tablet 650 mg, Oral, q4h artificial tears ophthalmic ointment, Each Eye, q8h atorvastatin (Lipitor) tablet 20 mg, Enteral Tube, AT BEDTIME bacitracin topical ointment, Topical, TID chlorhexidine (Peridex) 0.12 % oral solution 15 mL, Mouth/Throat, BID enoxaparin (Lovenox) injection 30 mg, Subcutaneous, q12h famotidine (Pepcid) tablet 20 mg, Enteral Tube, QDAY insulin aspart (NovoLOG) pen 0-6 Units, Subcutaneous, q6h polyethylene glycol 3350 (Miralax) packet 17 g, Enteral Tube, QDAY senna (Senokot) tablet 8.6 mg, Enteral Tube, QDAY [COMPLETED] calcium gluconate 1 g in 50 mL NaCl 0.675%, Intravenous, Once [COMPLETED] sodium phosphate 15 mmol in dextrose 5 % 255 mL bolus, Intravenous, Once [] perflutren lipid microsphere (Definity) injection 0.5 mL, Intravenous, intra-Procedure multiple Continuous: dexmedeTOMIDine (Precedex) 400 mcg in 100 mL NS infusion premix, Intravenous, Continuous fentaNYL 2500 mcg/50mL (Sublimaze) infusion, Intravenous, Continuous norepinephrine (Levophed) 8 mg/250 ml D5 infusion premix, Intravenous, Continuous vasopressin 0.2 units/mL infusion, Intravenous, Continuous PRN: Or Or Or 0.9% NaCl infusion rate and volume, Intravenous, Once PRN 0.9% NaCl injection 1-10 mL, Intracatheter, PRN dextrose IV 12.5 g, Intravenous, PRN dextrose IV 25 g, Intravenous, PRN fentaNYL (Sublimaze) bolus from bag 50 mcg, Intravenous, BOLUS FROM BAG PRN glucagon (Glucagen) injection 1 mg, Subcutaneous, PRN glucose (Diabetic Use) oral gel, Oral, PRN oxyCODONE (immediate release) (Roxicodone) tablet 2.5 mg, Enteral Tube, q4h PRN oxyCODONE (immediate release) (Roxicodone) tablet 5 mg, Enteral Tube, q4h PRN Physical Exam Vitals: 03/18/24 0500 03/18/24 0600 03/18/24 0700 03/18/24 0800 BP: Pulse: 62 67 66 68 Resp: 14 14 14 14 Temp: 97.8 ??F (36.6 ??C) 99.5 ??F (37.5 ??C) SpO2: 100% 100% 100% 100% Weight: Height: alert, able to squeeze my hand, not following more commands, remains intubated, does not appear in distress conjuctiva clear OP moist without exudate Neck: no LAD, or masses Resp: symmetrical respiratory movements, no use of accessory muscles, CV: RRR No murmur or gallop Abd: + BS, soft, NT/ND Ext: no edema in bilat LE, no pain to palpation, no external lesions DP palp bilat Skin: no ulcers callous or maceration, no rash Neuro: no abnormal movements, attention can't be evaluated Muscskel: no synovitis in knees ankles, wrists or hands At the time of exam Emerald Villafana is deemed not decisional by this practitioner. Labs I have personally reviewed lab results CBC: Recent Labs Component Name 03/18/24 0035 WBC 7.7 HGB 6.8* HCT 21.2* BMP: Recent Labs Component Name 03/18/24 0001 POTASSIUM 4.4 NA 138 CL 111* CO2 24 CREATININE 0.79 BUN 23 CALCIUM 8.1* PHOS 2.7* MAGNESIUM 2.2 LFT: Recent Labs Component Name 03/15/24 1626 PROT 4.4* AST 12 ALT 8 ALKPHOS 44 TBILI 0.4 ALB 2.1* Recent Labs Component Name 03/18/24 0001 CALCIUM 8.1* PHOS 2.7* MAGNESIUM 2.2 COAGULATION: Recent Labs Component Name 03/13/242208 PT 13.9 PTT 23.3 INR 1.1 THYROID:No results for input(s): TSH , T3 , T4 in the last 58774 hours. CARDIAC:No results for input(s): TROPONIN in the last 77489 hours. LIPASE: Recent Labs Component Name 03/13/242208 LIPASE 14 Microbiology Results (past 5 days) No results found for this or any previous visit (from the past 124 hour(s)). Radiology Results - Past 24 Hours I have personally reviewed lab results No results found. EKG Results for orders placed or performed during the hospital encounter of 03/13/24 EKG 12-LEAD Result Value Ref Range Ventricular Rate 76 BPM Atrial Rate 76 BPM P-R Interval 144 ms QRS Duration ms 76 ms Q-T Interval ms 428 ms QTC Calculation (Bezet) 481 ms Calculated P [place] 79 degrees Calculated R [place] 53 degrees Calculated T [place] -131 degrees Interpretation EKG SINUS RHYTHM WITH PREMATURE SUPRAVENTRICULAR COMPLEXES ST & T WAVE ABNORMALITY, CONSIDER INFERIOR ISCHEMIA ST & T WAVE ABNORMALITY, CONSIDER ANTEROLATERAL ISCHEMIA PROLONGED QT ABNORMAL ECG NO PREVIOUS ECGS AVAILABLE Confirmed by DOMINIC BLACKMAN, JOSE DAVID ([id number]) on 03/17/2024 9:36:36 AM Educational Material Given: Palliative Care Brochure and Contact information. Spent a total of 80 minutes on this encounter. Including chart review, face to face and discussing with health primary care nurse practitioner, coordination of care, discussing goals and documenting. We deeply appreciate the opportunity to collaborate with you in caring for Emerald Villafana. Please feel free to reach out to our team for any further support or assistance. Angelique Cortes MD 03/18/24 10:40 AM Palliative Medicine and Geriatrics Attending. PROGRAMMER * Ria Pena, ZACH - 03/17/2024 7:23 AM CSTAssociated Order(s): IP CONSULT TO CASE MANAGEMENT CM acknowledge consult. SW will follow up. Ria Pena, RN Ext [phone] PROGRAMMER * Lorraine Mckenzie - 03/16/2024 12:27 PM CSTAssociated Order(s): IP CONSULT TO PASTORAL CARE Unit informatics coordinator responded to a pastoral care consult. I met with pt's granddaughter and great grandson. I provided empathetic support and hospitality. Devin Goldt Jonah 03/16/2024 12:28 PM PROGRAMMER * Karol Ruiz MSW - 03/16/2024 9:37 AM CSTAssociated Order(s): IP CONSULT TO TEMPERING KILN TENDER Care Coordination Progress Note Anticipated level of care at discharge: Unknown: Anticipated level of care provider: None: 03/17/2024: Discharge Plan: Sw unable to speak to pt, due to pt being intubated. Orientation Level: Unable to Obtain: Family Support (Name and Phone): Extended Emergency Contact Information Primary Emergency Contact: Meri Henderson (POA) Mobile Relation: Daughter Preferred language: Icelandic V Belt Curer needed? No Secondary Emergency Contact: Shay Washington Mobile Relation: Daughter Preferred language: Icelandic V Belt Curer needed? No Transportation at Discharge: Family: READMISSION RISK SCORE is 14 at 9:37 AM 03/16/2024.: Name: JOSE LUIS Arriaga PROGRAMMER * Rosalina Meyer MD - 03/14/2024 12:13 PM CSTAssociated Order(s): IP CONSULT TO GERIATRIC MEDICINE [facility] Geriatric New Patient Consult [facility] Edisonanonymous [id number] Age: [age] year old. Date of : 03/13/1936 Admission Date: 03/13/2024 Reason For Consult: Geriatric medicine evaluation in trauma Requesting Physician: Dr. Anna HPI: Emerald Villafana is 88 year old female seen for fall in her [facility] with SAH, scalp laceration and SDH. Patient intubated for airway protection and remains intubated/sedated. Patient recently d/c from [facility] after admission for aortic ulcer perforation and had 2 falls on the day of d/c. 2nd fall resulted in injuries and she returned to [facility] for ongoing care. Family had medications from the hospital but was only at facility 2 hours before return so unlikely she received medications there. At baseline: Can use walker. Is in memory care side of [facility] Can dress, feed, and toilet self. Gets help with shower. Uses a rolator walker. Uses reading glasses, no hearing aids. Has Top and bottom dentures. Doesn't wear a brief but has a bed pad at night. Walks a lot (wandering), does havea dx of dementia. Does get up at night. Has hx of depression or anxiety currently on prozac. Has had frequent falls. Reduced falls since walker. Doesn't eat well and has been losing weight. Does get out with family. Does report dizziness frequently. Talks in full sentences but gets off track with discussion. Has sundowning. Comprehensive Geriatric Assessment: Falls: frequent Weight loss: yes Orthostatic: yes Incontinence: yes UI Vision/Hearing Problems: glasses, no FREGOSO Medication Review: reviewed with family CAM Score : 4/4 PHQ9: yes depression SLUMS: yes dementia SNAQ:weight loss risk ADL: needs help with showering. Other ADL independent IADL: dependent FRAIL score :5 / 5 (3+ indicates frailty) SARC-F score: 10/10 (4+ indicates sarcopenia) Past Medical History: Past Medical History: Diagnosis Date CAD (coronary artery disease) COPD (chronic obstructive pulmonary disease) (HCC) Dementia without behavioral disturbance (HCC) GERD (gastroesophageal reflux disease) HLD (hyperlipidemia) HTN (hypertension) Past Surgical History: Past Surgical History: Procedure Laterality Date Knee Replacement Left Home Medications: Home Medications Current Outpatient Medications Medication Instructions [...] Subcutaneous, EVERY 14 DAYS traMADol (ULTRAM) 50 mg New meds from hospitalization 03/13/24 START taking these medications Instructions Authorizing Provider [...] every 6 hours as needed for Pain Current medication List: 0.9% NaCl 3 mL Intracatheter q8h artificial tears Each Eye q8h bacitracin Topical TID chlorhexidine 15 mL Mouth/Throat BID famotidine 20 mg Intravenous QDAY insulin aspart 0-6 Units Subcutaneous q6h iopamidol Intravenous Contrast - Once iopamidol Intravenous Contrast - Once iopamidol Intravenous Contrast - Once polyethylene glycol 3350 17 g Enteral Tube QDAY senna 8.6 mg Enteral Tube QDAY Allergies: No Known Allergies Family History: NC Social History: Tobacco Use Smoking status: Never Vaping Use Vaping status: Never Used Substance Use Topics Alcohol use: Never Drug use: Review of Systems: Review of Systems - unable due to intubated/sedated Vitals: Vitals: 03/14/24 0915 03/14/24 0930 03/14/24 0945 03/14/24 1000 BP: 84/43 114/85 122/76 124/89 Pulse: 89 95 95 96 Resp: 14 14 13 16 Temp: 98.4 ??F (36.9 ??C) 98.6 ??F (37 ??C) 98.4 ??F (36.9 ??C) 98.6 ??F (37 ??C) SpO2: 91% 100% 99% 100% Weight: Height: Estimated body mass index is 23.49 kg/m?? as calculated from the following: Height as of this encounter: 1.702 m (5' 7 ). Weight as of this encounter: 68 kg (150 lb). Weight: Wt Readings from Last 2 Encounters: 03/14/24 68 kg (150 lb) Physical Exam: Exam: intubated/sedated, not restless; facial scalp ecchymosis and hematoma intubated Resp: CTA no rales/wheeze, equal BS CV: RRR No murmur or gallop Abd: + BS, soft, NT/ND, no masses Ext: no edema in bilat LE Ecchymosis bilat knee Biat hand/wrist dorsal ecchymosis Skin: no ulcers callous or maceration Neuro: no tremor or UE dysmetria Muscskel: no synovitis in ankles bilat Labs: Coagulation: Recent Labs Component Name 03/13/242208 PT 13.9 INR 1.1 Recent Labs Component Name 03/14/24 0922 03/13/242208 WBC 30.6* 10.2 HGB 9.9* 9.6* MCV 94.4 94.0 INR - 1.1 Recent Labs Component Name 03/14/24 0749 03/13/242208 NA 134* 132* CL 107 105 CO2 21* 23 BUN 20 21 CREATININE 0.92 1.01* Recent Labs Component Name 03/13/242208 AST 16 ALT 9 ALKPHOS 57 TBILI 0.8 ALB 2.8* Imaging: CT CHEST ABDOMEN PELVIS W CONT - Abdomen-pelvis trauma, blunt or penetrating Result Date: 03/14/2024 Impression 1.An elongated area of low attenuation in the anterior-inferior aspect of the right hepatic lobe measuring 5 x 1 cm (series 4 image 50-58). This is concerning for a contusion or laceration(grade 2 liver injury), although focal fatty infiltration is possible. 2.Otherwise no evidence of acute visceral, vascular, or osseus injury identified in the chest, abdomen, or pelvis. 3.Small penetrating atherosclerotic ulcer noted in the aortic arch distal to the left subclavian artery. Multiplewall irregularities of the thoracic aorta is noted, likely secondary to atherosclerotic disease. 4.Cardiomegaly. There is reflux of contrast into the IVC and hepatic veins consistent with right heartdysfunction. 5.2 mm left upper lobe lung nodule. [...] on 03/13/2024. Report dictated by Darvin Santos MD(senior resident care director). IYahir MD have personally reviewed and interpreted thisexamination/study. > Interpreting Provider: Yahir Queen MD on 03/14/2024 11:[address] Angio Brain Result Date: 03/14/2024 IMPRESSION: 1.Redemonstration of sequelae of TBI was multilevel compartmental intracranial hemorrhages, including an acute subdural hematoma, along the left tentorial leaflet, as well as well multiple foci of subarachnoid hemorrhages most prominent in the bilateral sylvian fissures and in the basalcisterns, overall similar or slightly conspicuous compared to the prior, allowing for slight differences in the imaging technique and expected redistribution. 2.No significant mass effect or midline shift. 3.No large arterial occlusions or hemodynamically significant stenoses identified in the head. > Interpreting Provider: Gabe Page MD on 03/14/2024 10:[address] HEAD WO CONTRAST - Head Trauma, CSF leak, mental status changes Result Date: 03/14/2024 IMPRESSION: 1.Sequelae of TBI was multilevel compartmental intracranial hemorrhages, including an acute subdural hematoma up to 7 mm in maximum thickness layering along the left tentorial leaflet, aswell as well multiple foci of subarachnoid hemorrhages most prominent in the bilateral sylvian fissu res and in the basal cisterns. 2.No significant [...] findings. Report dictated by Jann Viera MD (senior resident care director). Critical findings were discussed in detail with the patient's care provider, Dr. Samson by Dr. Viera via telephone at 11:34 PM on 03/13/2024 with readback comprehension and verification. Gabe Guzmán MD have personally reviewed and interpreted this examination/study. > Interpreting Provider: Gabe Page MD on 03/14/2024 6:31AM CT CERVICAL SPINE WO CONTRAST - C-Spine Trauma, Spine fracture Result Date: 03/14/2024 IMPRESSION: 1.Sequelae of TBI was multilevel compartmental intracranial hemorrhages, including an acute subdural hematoma up to 7 mm in maximum thickness layering along the left tentorial leaflet, aswell as well multiple foci of subarachnoid hemorrhages most prominent in the bilateral sylvian fissu res and in the basal cisterns. 2.No significant [...] findings. Report dictated by Jann Viera MD (senior resident care director). Critical findings were discussed in detail with the patient's care provider, Dr. Samson by Dr. Viera via telephone at 11:34 PM on 03/13/2024 with readback comprehension and verification. Gabe Guzmán MD have personally reviewed and interpreted this examination/study. > Interpreting Provider: Gabe Page MD on 03/14/2024 6:31AM CT THORACIC SPINE WO CONTRAST - T/L-spine trauma, spine fracture Result Date: 03/14/2024 IMPRESSION: 1.Sequelae of TBI was multilevel compartmental intracranial hemorrhages, including an acute subdural hematoma up to 7 mm in maximum thickness layering along the left tentorial leaflet, aswell as well multiple foci of subarachnoid hemorrhages most prominent in the bilateral sylvian fissu res and in the basal cisterns. 2.No significant [...] findings. Report dictated by Jann Viera MD (senior resident care director). Critical findings were discussed in detail with the patient's care provider, Dr. Samson by Dr. Viera via telephone at 11:34 PM on 03/13/2024 with readback comprehension and verification. Gabe Guzmán MD have personally reviewed and interpreted this examination/study. > Interpreting Provider: Gabe Page MD on 03/14/2024 6:31AM CT LUMBAR SPINE WO CONTRAST - T/L-spine trauma, Spine fracture Result Date: 03/14/2024 IMPRESSION: 1.Sequelae of TBI was multilevel compartmental intracranial hemorrhages, including an acute subdural hematoma up to 7 mm in maximum thickness layering along the left tentorial leaflet, aswell as well multiple foci of subarachnoid hemorrhages most prominent in the bilateral sylvian fissu res and in the basal cisterns. 2.No significant [...] findings. Report dictated by Jann Viera MD (senior resident care director). Critical findings were discussed in detail with the patient's care provider, Dr. Samson by Dr. Viera via telephone at 11:34 PM on 03/13/2024 with readback comprehension and verification. IGabe MD have personally reviewed and interpreted this examination/study. > Interpreting Provider: Gabe Page MD on 03/14/2024 6:31AM CT FACIAL BONES WO CONTRAST - Facial trauma, fx suspected, blunt Result Date: 03/14/2024 IMPRESSION: 1.Sequelae of TBI was multilevel compartmental intracranial hemorrhages, including an acute subdural hematoma up to 7 mm in maximum thickness layering along the left tentorial leaflet, aswell as well multiple foci of subarachnoid hemorrhages most prominent in the bilateral sylvian fissu res and in the basal cisterns. 2.No significant [...] findings. Report dictated by Jann Viera MD (senior resident care director). Critical findings were discussed in detail with the patient's care provider, Dr. Samson by Dr. Viera via telephone at 11:34 PM on 03/13/2024 with readback comprehension and verification. I, Gabe Page MD have personally reviewed and interpreted this examination/study. > Interpreting Provider: Gabe Page MD on 03/14/2024 6:31AM Assessment and Plan Delirium evaluation: likely to have delirium once sedation reduced. Potential risks for delirium include dementia, SDH, SAH, head trauma. Will continue to assess as sedation is reduced. 2. Chronic diarrhea: uses cholestyramine/imodium for mgmt. Monitor for sx but not likely to need medications unless tube feeding started. 3. CAD with aortic mural thrombus/ulcer: current trauma injuries will prevent use of ASA. Suggest referral to cardiology for followup of cardiac ulceration as needed this hospitalization. 4. Dementia with restlessness: on no medications other than prozac for depression sx. Can hold prozac at this time. Will need PT/OT assessment once stabilized/extubated if expected to d/c back to herfacility based on functional needs. 5. SDH/SAH: holding asa. Will monitor cognition but with underlying dementia may have cognitive decline as a result of this injury. Rosalina Meyer MD Geriatric Medicine Attending Pager: 03/14/2024 12:13 PM PROGRAMMER * Santiago Bolden MD - 03/14/2024 8:44 AM CSTAssociated Order(s): IP CONSULT TO OTOLARYNGOLOGY 03/14/2024 Otolaryngology Facial Trauma Consultation Patient ID: Quincy Avelar [id number] 03/13/1936 Reason for Consultation: facial trauma HPI Quincy Avelar is a 88 year old female who presents with a history of facial traumawhich occurred after a ground level fall. The patient fell around 199903/13/24. Unknown LOC. She has a history of dementia and on blood thinners She has a SDH and has been intubated. ENT consulted for a right forehead laceration. Review of Systems: Unable to obtain secondary to patient being sedated and intubated PAST MEDICAL HISTORY No past medical history on file. PAST SURGICAL HISTORY No past surgical history on file. ALLERGIES: No Known Allergies SOCIAL HISTORY: Social History Tobacco Use Smoking status: Unknown Vaping Use Vaping status: Unknown MEDICATIONS No current facility-administered medications on file prior to encounter. No current outpatient medications on file prior to encounter. FAMILY HISTORY Denies known wound healing abnormalities. Physical Exam BP 102/69 (BP Location: Right arm, Patient Position: Lying) Pulse 73 Temp 97.9 ??F (36.6 ??C) Resp 13 Ht 1.702 m (5' 7 ) Wt 68 kg (150 lb) SpO2 100% General appearance: NAD HEENT: Skeletal assessment: -Bony stepoffs were not palpated -Tenderness to palpation was not elicited -The remainder of the cranial skeleton was without clinically palpable irregularity Soft tissue assessment: -Scalp/forehead: 6cm trifurcating stellate laceration over the right frontal scalp through muscle, left frontal ecchymosis -Eyes: right periorbital ecchymosis -Ears: External pinnae atraumatic, bilateral cerumen impaction -Nose: atraumatic with no septal swelling -Cheek: atraumatic -Lips: atraumatic -Chin: atraumatic -Neck: atraumatic anterior-laterally under C-collar Neurologic assessment: -Sedated Oral assessment: -ETT in place Lungs: stable on mechanical ventilation Heart: warm and well perfused centrally Abdomen: non-distended Data Review Imaging: CT FACE (03/14/2024): Personally reviewed: right forehead laceration, no facial fractures Laceration Repair Procedure Note Laceration description: 6cm trifurcating stellate laceration over the right frontal scalp through muscle Informed consent was obtained from the patient. Anesthesia: 3 ml 1% lidocaine with epinephrine Procedure: The wound was injected with local anesthetic and copiously irrigated with normal saline mixed with betadine. It was then cleaned with betadine soaked gauzes. Wound edges were not revised. The deep layer was closed with 3-0 Vicryl in a buried interrupted fashion. The superficial skin layer was closed with 5-0 fast. Patient tolerated procedure well. There were no complications. Dressing: Wound may stay open to air. Bacitracin TID. Laceration repaired by Dr. Zamudio Assessment and Plan 88 year old female here after a fall seen in consultation for a right forehead laceration. This is s/p repair above. -Recommend applying bacitracin to lacerations, abrasions, twice per day for 5 days then switch to petroleum ointment (Vaseline or similar) daily as needed to prevent crusting. -Activity: If not contraindicated by another service, recommend head elevated >30 degrees for 5-7 days to reduce swelling -Please page on discharge so we can do a wound check prior to discharge vs schedule outpatient follow up. Please page ENT with questions/concerns Rob Jaimes MD Otolaryngology/Head & Neck Surgery Resident 03/14/24 Patient seen and evaluated by me with resident. Agree with above. Facial laceration nicely closed. No active bleeding. She is resting comfortably. CT of the face independently reviewed by me today showing no operative facial bone fractures. Santiago Bolden MD 03/16/2024 7:15 AM PROGRAMMER * Sue Valenzuela, SILVIANO/LD - 03/14/2024 7:24 AM CSTAssociated Order(s): IP CONSULT TO NUTRITIONAL SERV BRIEF SYNOPSIS: Nutrition Risk Identified but does not meet malnutrition criteria. Body mass index is 23.49 kg/m??. GI Concerns: Other (Comment) (OGT (placed 03/13)) Nutrition Plan: Current diet order: NPO TUBE FEEDING RECOMMENDATIONS: TF recommendations ON / OFF propofol - current rate of 4.08 ml/hr providing 108 lipid kcals per day- Pivot 1.5 at 40ml/hr. + Yogesh BID - provides 7gm arginine, 7gm glutamine, 2.5g collagen protein, 300mg VIT C, 9.5mg zinc Provides 1440 kcals, 90 g of protein, 166 g carbohydrate, 728 ml of free water + 50 ml q 6 hrs free water flush or per MD if on IVF + 100 ml q4 hrs free water flush or per MD if not on additional fluids Start early enteral nutrition within 24-48 hours of intubation Start TF at 20 ml/hr, advance 20 ml q 24 hrs to be at goal by day 4 of intubation. *ESPEN guidelines recommend slow advancement rate for ICU patients* Recommendation to Physician: Recommend starting tube feedings per recommendations above. Discharge Needs: N/A CLINICAL NUTRITION ASSESSMENT: Consulted per VENT protocol for tube feeding recs. Recommend starting tube feeding per recommendations above. Pt is currently intubated (ETT 03/13) and sedated, noted propofol at rate of 4.08 mL / hr(provided 108 kcals / day). Norepinephrine ordered, not yet given. Labs reviewed, noted low sodium (132), elevated potassium (4.8), elevated creatinine (1.01), low eGFR (54), elevated glucose (201), low calcium (8.2). Last BM 03/14. RD will follow up per clinical nutrition guidelines. Med/Surg History and Clinical Diagnoses: PMHx: 88 year old female with dementia for which she resides at a facility presenting as a level 1 trauma following a ground level fall Height: 170.2 cm (5' 7 ) BMI: Body mass index is 23.49 kg/m??. BMI Range: Normal IBW/lb (Calculated) Female: 135 Recent Weights/Methods 03/13/2024 2150 03/14/2024 0349 Weight: 68 kg (150 lb) 68 kg (150 lb) Weight Method : Estimated Bed scale PO INTAKE Current diet order: NPO Nutrition recommendation: alter/change nutrition order Food Allergies: No known food allergies Last 48 hr PO INTAKE No data recorded Supplement(s) Consumed- Last 48 hours None Pain affecting intake: No Chewing/Swallowing: Other (Comment) (Intubated (ETT 03/13)) GI Concerns: Other (Comment) (OGT (placed 03/13)) Stools: Last BM 03/14. Last BM (Date): 03/14/24 Stools (# of stools): 1 (03/14/24 0600) Stool Appearance : Soft (03/14/24 0600) Stool Amount: Smear (03/14/24 0600) Skin/Wound: Traumatic wound R forehead Estimated Needs: KCAL: 3366-1823 (per VENT protocol - based on 20-25 kcals/kg ABW 68kg) Protein (g): 82-136 (per VENT protocol - based on 1.2-2.0 g/kg ABW 68kg) Fluid (ml): 1 ml/kcal Recommended Access Route: TF Labs: Labs reviewed, noted low sodium (132), elevated potassium (4.8), elevated creatinine (1.01), low eGFR (54), elevated glucose (201), low calcium (8.2). Recent Labs Component Name 03/13/242208 NA 132* POTASSIUM 4.8* CO2 23 BUN 21 CREATININE 1.01* GLUCOSE 201* CALCIUM 8.2* ALT 9 ALKPHOS 57 AST 16 EGFR 54* No results for input(s): PHOS , PHOSPHORUS in the last 19648 hours. No results for input(s): MAGNESIUM in the last 08151 hours. Recent Labs Component Name 03/13/242208 HGB 9.6* HCT 29.8* No results for input(s): HGBA1C in the last 48248 hours.Patient Vitals for the past 30 hrs: Glucose Bedside (mg/dL) 03/14/24 0509 155 mg/dL 03/14/24 0316 150 mg/dL MEDICATIONS FOR CURRENT ENCOUNTER: SCHEDULED MEDICATIONS: 0.9% NaCl injection 3 mL, Intracatheter, q8h artificial tears ophthalmic ointment, Each Eye, q8h chlorhexidine (Peridex) 0.12 % oral solution 15 mL, Mouth/Throat, BID famotidine (Pepcid) injection 20 mg, Intravenous, QDAY insulin aspart (NovoLOG) pen 0-6 Units, Subcutaneous, q6h iopamidol (Isovue 370) 76 % contrast, Intravenous, Contrast - Once iopamidol (Isovue 370) 76 % contrast, Intravenous, Contrast - Once iopamidol (Isovue 370) 76 % contrast, Intravenous, Contrast - Once lactated ringers IV bolus, Intravenous, Once polyethylene glycol 3350 (Miralax) packet 17 g, Enteral Tube, QDAY senna (Senokot) tablet 8.6 mg, Enteral Tube, QDAY [COMPLETED] 0.9% NaCl IV bolus, Intravenous, Now [COMPLETED] ceFAZolin (Ancef) 2 g in sterile water (PF) 20 mL syringe, Intravenous, Now [COMPLETED] Qqliugs-Hekzl-Qhedq Pertussis Vaccine (Boostrix; 7y+) (Tdap) 0.5 mL, Intramuscular, Now CONTINUOUS MEDICATIONS: fentaNYL 2500 mcg/50mL (Sublimaze) infusion, Intravenous, Continuous norepinephrine (Levophed) 8 mg/250 ml D5 infusion premix, Intravenous, Continuous propofol (Diprivan) infusion, Intravenous, Continuous PRN MEDICATIONS: Or Or 0.9% NaCl injection 1-10 mL, Intracatheter, PRN dextrose IV 12.5 g, Intravenous, PRN dextrose IV 25 g, Intravenous, PRN fentaNYL (Sublimaze) bolus from bag 50 mcg, Intravenous, BOLUS FROM BAG PRN glucagon (Glucagen) injection 1 mg, Subcutaneous, PRN glucose (Diabetic Use) oral gel, Oral, PRN Nutrition Diagnostic Statement: Inadequate oral intake related to:: decreased ability to consume ortolerate food and/or fluids due to illness as evidenced by:: oral intake insufficient to meet estimated requirements Nutrition Intervention: Enteral nutrition: Education needed: None Education Provided: Not appropriate (03/14/24 0700) Monitoring: TF initiation and tolerance, BM, labs, meds, weight. Monitor per nutrition guidelines. Risk Level: High Evaluation: Nutrition Goal: Total intake will meet estimated nutrient needs Nutrition Goal Timeframe: Throughout stay Nutrition Goal Progress: New goal established CAITLIN Eller 03/14/2024 7:[address] Pager: PROGRAMMER * Pramod Soto MD - 03/13/2024 11:40 PM CST Neurosurgery Consult Note Name: Quincy Avelar :03/13/1936 Date of Admission:03/13/2024 Date of Consult:1:40 PM Time images reviewed: 11:45 Time patient examined: 1215 and 215 Reason for consult: TBI Consult Requested by: Trauma HISTORY OF PRESENT ILLNESS (HPI): Patient is a 88 year old with PMH dementia otherwise unknown PMH who presents s/p fall. Patient reportedly lives in assisted living and fell twice yesterday. Patientbrought to ED in setting of bleeding from forehead. The patient medication include aspirin. CT scanshowed small SDH and neurosurgery was contacted at that time. [facility] NEUROSURGERY HIGH RISK VARIABLES None\F2 No past medical history on file. No past surgical history on file. Current Facility-Administered Medications Medication 0.9% NaCl injection 3 mL And 0.9% NaCl injection 1-10 mL artificial tears ophthalmic ointment chlorhexidine (Peridex) 0.12 % oral solution 15 mL etomidate (Amidate) injection fentaNYL (Sublimaze) bolus from bag 50 mcg fentaNYL 2500 mcg/50mL (Sublimaze) infusion iopamidol (Isovue 370) 76 % contrast propofol (Diprivan) infusion rocuronium (Zemuron) injection No current outpatient medications on file. No Known Allergies Social History Tobacco Use Smoking status: Unknown Smokeless tobacco: Not on file Substance Use Topics Alcohol use: Not on file Comment: unable to assess due to pt condition No family history on file. PHYSICAL EXAM BP 103/43 Pulse 83 Temp 97.8 ??F (36.6 ??C) Resp 14 Ht 1.702 m (5' 7 ) Wt 68 kg (150 lb) SpO2 99% General: intubated, sedation paused Neuro: GCS: GCS7T, intermittently moving LUE spontaneously, withdrawing LUE strongly and BLE withdrawing, RUE intermittent extension LABORATORY PT/PTT: WNL Plt: clumped TEG: pending RADIOLOGY CTH: Acute subdural hematoma up to 7 mm in maximum thickness layering along the left tentorial leaflet. Subarachnoid blood products most prominent in the bilateral sylvian fissures and in small volume within the basal cisterns which are otherwise patent. No significant mass effect or midline shift. Right frontoparietal scalp laceration, no underlying calvarial fracture. Brain injury guidelines: Skull fracture: No Subdural hematoma: 5-7mm. Epidural hematoma: No epidural hematoma. Intraparenchymal hemorrhage: No intraparenchymal hemorrhage. Subarachnoid hemorrhage: Scattered-bihemispheric. Intraventricular hemorrhage: No. Midline shift: No Assessment/ [facility] 88 year [facility] female with PMH dementia otherwise unknown PMH who presents s/p two GLF yesterday. Neurologically, patient is GCS7T, intermittently moving spontaneously and withdrawing strongly. Patient takes aspirin, she recently started taking it two days ago. CT scan showed small tentorial SDH and bilateral sylvian SAH. - Continue to monitor neurologic exam - Please obtain repeat head CTA 6 hours after original to assess for stability vs progression of hemorrhage - Recommend holding anticoagulation/ antiplatelet medications at this time - Overall care per trauma - Page Neurosurgery and obtain STAT head CT with decline in neuro exam Case discussed with Dr. Piña at 1230. Pramod Soto MD 03/13/2024 11:40 PM PROGRAMMER Associated attestation - Rico Piña MD - 03/17/2024 2:30 PM VBA PROGRAMMER I have seen and examined the patient with the resident/fellow and I agree with the findings and plan of care as documented. documented in this encounter ED Notes * Jonathan Mendiola RN - 03/13/2024 11:35 PM CST Pt BIBair with cc of laceration to the forehead secondary to fall. Air team reports history of dementia. Pt arrived AO1, with a GCS of 8. PROGRAMMER * Santiago Barba MD - 03/13/2024 11:31 PM CST ASSUMED CARE NOTE Patient signed out to me by Dr. Bridges at 11:00 PM. Briefly, [facility] a 88 year old female with PMHx dementia for which she resides at a facility is being evaluated for falls. Prior team reports pt fell twice earlier today. Prior team reports after second fall pt suffered a laceration over her right yarsanism with considerable bleeding. Prior team reports pt is GCS 7 for which the pt was intubated. Prior team reports pt is not on blood thinners. Prior team reports pt's CT head notes significant SAH. Prior team reports pt has been given fentanyl and propofol for sedation and had rocuronium one hour ago. At this time the patient's condition is critical. Pending neurosurgery recommendations, trauma scans. Plan is admit to MICU. Vitals: 03/13/240 03/13/24220403/13/24220703/13/242214 BP: 140/90 97/73 114/99 103/43 Pulse: 82 93 83 83 Resp: 16 14 Temp: 97.8 ??F (36.6 ??C) SpO2: 92% 100% 100% 99% Weight: 68 kg (150 lb) Height: 1.702 m (5' 7 ) ED Course: 2313: Pt has been admitted to the MICU under Dr. Anna. Time critical events not noted above: (These events are recorded by multiple users, and are therefor subject to redundancy and/or error) ED Course as of 03/13/242342Mar 13, [id number] Patient brought into trauma bay by EMS. [RJ] 2158 Patient will be intubated for airway protection and procedure for repair of head laceration. Patient will be given 20 Etomidate and 100 Rock. [RJ] 2201 20 Etomidate and 100 Rock delivered. [RJ] 2202 Patient intubated. Bilateral breath sounds. [RJ] 2299 Transfer of care to Dr. Barba. [RJ] ED Course User Index [RJ] Giorgi Dolan Clinical Impressions as of 03/13/24 2343 Fall, initial encounter Subarachnoid bleed (HCC) Altered mental status, unspecified altered mental status type Respiratory failure after trauma (HCC) Clinical Impression: 1. Altered mental status, unspecified altered mental status type 2. Fall, initial encounter 3. Subarachnoid bleed (HCC) 4. Respiratory failure after trauma (HCC) Disposition: Admit to Trauma ICU By signing my name below, I, Edison Alberto, attest that this documentation has been prepared under the direction and in the presence of Dr. Barba. Signed: Cristian Beth. I, Dr. Barba, personally performed the services described in this documentation. All medical record entries made by the scribe were at my direction and in my presence. I have reviewed the chart andagree that the record reflects my personal performance and is accurate and complete. Electronically signed: Dr. Barba. Santiago Barba MD Emergency Medicine PROGRAMMER * Aroldo Gooden RN - 03/13/2024 11:05 PM CST Patient's daughter and DPOA, Yonis Henderson, PROGRAMMER * Jonathan Mendiola RN - 03/13/2024 10:18 PM CST Pt log rolled to left side while maintaining C spine. No stepoffs, no crepitus, no deformity, no rectal tone. Pt log rolled back to supine while maintaining C spine. PROGRAMMER * Jonathan Mendiola RN - 03/13/2024 9:59 PM CST MD Bridges, MD Barcenas, MD Nielson at bedside preparing for intubation. All equipments ready. 20 of etomidate and 100 of rocoronium for intubation PROGRAMMER * Luther Bridges MD - 03/13/2024 9:57 PM CST Emergency Medicine Attending Physician Note Chief Complaint Patient presents with Fall Pt BIBair with cc of laceration to the forehead secondary to fall. Air team reports history of dementia. Pt arrived AO1, with a GCS of 8. Resident Attestation: Patient seen and evaluated with the resident(s), Dr. Nielson and Dr. Nevarez, who also contributed to this note. I have performed an independent history and physical examination and discussed the patient's management with the resident. I confirm the resident's findings, assessment as documented in his or her note(s), except where revised in this note. HISTORY History obtained from: EMS, [facility] is a 88 year old female with PMHx of dementia who [facility] a level 1 trauma for active forehead bleed. EMS states that patient lives in an assisted living facility and had two ground level falls this evening, with the last fall occurring1 hour ago. Patient's daughter did not want patient transported to ED after first fall. EMS states that patient has an active hematoma on top of forehead and that pressure dressing is barely keeping bleeding under control. EMS is unclear what patient's baseline is. Patient is not on any known anticoagulation medications. She arrives the ED with a GCS of 8. No past medical history on file. No past surgical history on file. No family history on file. Social History Socioeconomic History Marital status: Spouse name: Not on file Number of children: Not on file Years of education: Not on file Highest education level: Not on file Occupational History Not on file Tobacco Use Smoking status: Unknown Smokeless tobacco: Not on file Vaping Use Vaping status: Unknown Substance and Sexual Activity Alcohol use: Not on file Comment: unable to assess due to pt condition Drug use: Not on file Comment: unable to assess due to pt condition Sexual activity: Not on file Other Topics Concern Not on file Social History Narrative Not on file Social Determinants of Health Financial Resource Strain: Not on file Food Insecurity: Not on file Transportation Needs: Not on file Stress: Not on file Housing Stability: Not on file ROS - See HPI. PHYSICAL EXAM BP 103/43 Pulse 83 Temp 97.8 ??F (36.6 ??C) Resp 14 Ht 1.702 m (5' 7 ) Wt 68 kg (150 lb) SpO2 99% Physical Exam Vitals reviewed. Constitutional: General: She is in acute distress. Interventions: Cervical collar in place. HENT: Mouth/Throat: Pharynx: Oropharynx is clear. Eyes: Pupils: Pupils are equal, round, and reactive to light. Cardiovascular: Rate and Rhythm: Normal rate and regular rhythm. Pulses: Normal pulses. Radial pulses are 2+ on the right side and 2+ on the left side. Dorsalis pedis pulses are 2+ on the right side. Heart sounds: Normal heart sounds. Pulmonary: Effort: Pulmonary effort is normal. Breath sounds: Normal breath sounds and air entry. Abdominal: Palpations: Abdomen is soft. Tenderness: There is no abdominal tenderness. Musculoskeletal: General: No swelling. Cervical back: Normal range of motion. Skin: General: Skin is warm. Findings: Laceration present. Comments: Active bleeding head laceration on forehead. Neurological: Comments: Patient moaning. GCS 8. Localizing. Moving all extremities. Psychiatric: Behavior: Behavior normal. MEDICAL DECISION MAKING Problem List: Fall, scalp bleeding, altered mental status DDx: fracture vs dislocation vs contusion vs pneumothorax vs ICH vs solid organ injury vs hollow viscus injury vs other Plan: Intubate due to decreased mental status, trauma workup, Trauma ICU admission RESULTS Labs Reviewed CBC W AUTO DIFFERENTIAL - Abnormal; Notable for the following components: Result Value RBC Count 3.17 (*) Hemoglobin 9.6 (*) Hematocrit 29.8 (*) Neutrophil % 87.6 (*) Lymphocyte % 6.8 (*) Neutrophil Absolute 8.95 (*) Lymphocyte Absolute 0.69 (*) All other components within normal limits COMPREHENSIVE METABOLIC PANEL - Abnormal; Notable for the following components: Creatinine 1.01 (*) Sodium 132 (*) Potassium 4.8 (*) Glucose 201 (*) Calcium 8.2 (*) Protein Total 5.4 (*) Albumin 2.8 (*) Anion Gap 4 (*) eGFR by CKD-EPI 54 (*) All other components within normal limits ALCOHOL ETHYL BLOOD - Normal Narrative: Ethanol Interp <10: None Detected. Depression of HYDRAULIC GOVERNOR ASSEMBLER: >100 mg/dl Potentially Critical: >250 mg/dl Potentially Fatal >400 mg/dl Ethanol in the patient's blood will contribute to the osmolar gap. Ethanol's contribution to the osmolar gap can be estimated by dividing the concentration of ethanol in mg/dL by 4.6. This test is for clinical use only and does not equal a SANDIE for legal purposes. LIPASE BLOOD - Normal Narrative: Lipase results from the [employer] Alinity analyzer may not be comparable with other methodologies. PT-INR [facility] - Normal PTT [facility] - Normal TEG 6 GLOBAL HEMOSTASIS W/ LYSIS TEG 6S PLATELET MAPPING URINE DRUG SCREEN IMMUNOASSAY TYPE + SCREEN PANEL BLOOD TYPE VERIFICATION CT HEAD WO CONTRAST - Head Trauma, CSF leak, mental status changes (Results Pending) CT CERVICAL SPINE WO CONTRAST - C-Spine Trauma, Spine fracture (Results Pending) CT CHEST ABDOMEN PELVIS W CONT - Abdomen-pelvis trauma, blunt or penetrating (Results Pending) CT THORACIC SPINE WO CONTRAST - T/L-spine trauma, spine fracture (Results Pending) CT LUMBAR SPINE WO CONTRAST - T/L-spine trauma, Spine fracture (Results Pending) XR CHEST 1VW PORTABLE (Results Pending) XR PELVIS 1 OR 2VW (Results Pending) CT FACIAL BONES WO CONTRAST - Facial trauma, fx suspected, blunt (Results Pending) XR Abdomen Kub Portable (Results Pending) INTERVENTIONS: Medications 0.9% NaCl injection 3 mL (has no administration in time range) And 0.9% NaCl injection 1-10 mL (has no administration in time range) etomidate (Amidate) injection (20 mg Intravenous $ Given 03/13/242201) rocuronium (Zemuron) injection (100 mg Intravenous $ Given 03/13/242201) fentaNYL 2500 mcg/50mL (Sublimaze) infusion (25 mcg/hr Intravenous $ New Bag/Syringe 03/13/242214) fentaNYL (Sublimaze) bolus from bag 50 mcg (has no administration in time range) propofol (Diprivan) infusion (10 mcg/kg/min ?? 68 kg Intravenous $ New Bag/Syringe 03/13/242248) artificial tears ophthalmic ointment (has no administration in time range) chlorhexidine (Peridex) 0.12 % oral solution 15 mL (has no administration in time range) iopamidol (Isovue 370) 76 % contrast (100 mL Intravenous $ Given - Contrast 03/13/242247) 0.9% NaCl IV bolus (1,000 mL Intravenous $ Bolus New Bag 03/13/242208) Gnoirvm-Blzwb-Qzena Pertussis Vaccine (Boostrix; 7y+) (Tdap) 0.5 mL (0.5 mL Intramuscular $ Given 03/13/242212) ceFAZolin (Ancef) 2 g in sterile water (PF) 20 mL syringe (2 g Intravenous $ Given 03/13/242216) Procedures DATA INTERPRETATION Patient seen and evaluated, available studies reviewed I personally interpreted the following labs: CBC: Grossly unremarkable with exception of mild anemia 9.6 Metabolic Panel: Grossly unremarkable with exception of mild elevation in creatinine 1.01, mild hyperglycemia two O2 I personally interpreted the following imaging studies: CT head with subarachnoid hemorrhage per my read Remainder of trauma cedillo scan pending MEDICAL DECISION MAKING I personally discussed this case with the following Physicians/consultants: Trauma surgery, Neurosurgery Time critical events not noted above: (These events are recorded by multiple users, and are therefore subject to redundancy and/or error) ED Course as of 03/13/24 2340 SatMar 13, [id number] Patient brought into trauma bay by EMS. [RJ] 2158 Patient will be intubated for airway protection and procedure for repair of head laceration. Patient will be given 20 Etomidate and 100 Rock. [RJ] 2201 20 Etomidate and 100 Rock delivered. [RJ] 2202 Patient intubated. Bilateral breath sounds. [RJ] 230 Transfer of care to Dr. Barba. [RJ] ED Course User Index [RJ] Giorgi Dolan Clinical Impressions as of 03/13/24 234 Fall, initial encounter Subarachnoid bleed (HCC) Altered mental status, unspecified altered mental status type Respiratory failure after trauma (HCC) Medications given in ED: Yes - see MAR Medications prescribed: No Revised home medications: No Amount and/or Complexity of Data Reviewed medical complexity: medical complexity, Triage notes and available nursing notes reviewed , Clinical lab tests: ordered and reviewed, Tests in the radiology section of CPT??: ordered and independent interpretation, Independent visualization of images: yes, Decide to obtain previous medical records or to obtain history from someone other than the patient: yes, see HPI , and Discuss the patient with other providers: yes Critical Care Time: Pt. is at high risk for complications and morbidity or mortality Yes Pt. is critically ill with vital organ impairment or failure. Yes There is high probability of imminent or life threatening deterioration in the patient condition. Yes Patient is unable or incompetent to participate in giving a history and/or making decisions and discussion is necessary for determining treatment decisions. Yes Time involved in the performance of separately billable procedures, teaching, reviewing education material was not counted towards critical care time. Time with beside care: 30 minutes Time in discussion with family: 5 minutes Time reviewing old medical records: 0 minutes Time reviewing labs/radiographs: 5 minutes Time with Offset Press Operator services: 5 minutes Time completing documentation: 5 minutes I was directly involved in the patients care for a Total Critical Care Time of: 45 minutes ED FINAL DIAGNOSIS 1. Altered mental status, unspecified altered mental status type 2. Fall, initial encounter 3. Subarachnoid bleed (HCC) 4. Respiratory failure after trauma (HCC) Please see resident note (if present) for further details. DISPOSITION Transfer of care to Dr. Barba. By signing my name below, I, Giorgi Dolan, attest that this documentation has been prepared under the direction and in the presence of Dr. Bridges. Signed: Cristian Nguyen. I, Dr. Bridges, personally performed the services described in this documentation. All medical record entries made by the scribe were at my direction and in my presence. I have reviewed the chart and agree that the record reflects my personal performance and is accurate and complete. Electronically signed: Dr. Bridges. Luther Bridges M.D. Emergency Medicine [facility] PROGRAMMER * Jonathan Mendiola RN - 03/13/2024 9:53 PM CST MD Anna at bedside suturing laceration to the forehead PROGRAMMER * Aroldo Gooden RN - 03/13/2024 9:48 PM CST Bed: T01 Expected date: Expected time: Means of arrival: Comments: LEVEL 2 2135, UPGRADED 2138 PROGRAMMER documented in this encounter Miscellaneous Notes * Code Status Discussion - Luther Bridges MD - 03/13/2024 11:30 PM VBA PROGRAMMER Discussed patient's condition with her daughter (power of regulatory attorney) and granddaughter. I explained the critical nature of her illness and presentation which required intubation shortly after arrival.I explained that the head CT shows a subarachnoid hemorrhage for which Neurosurgery will be evaluating the patient. At this time, the patient's family shared that if the patient were to lose pulses, she would not want compressions or defibrillation. However, family is comfortable with continued resuscitation and would like to be involved in potential interventions for any traumatic injuries the patient has sustained. Luther Bridges MD 03/13/2024 11:35 PM PROGRAMMER documented in this encounter Plan of Treatment Scheduled Referrals Name Type Priority Associated Diagnoses Order Schedule AMB REFERRAL TO PCP Outpatient Referral Routine Fall, initial encounter 1 Occurrences starting 04/08/2024 until 04/08/2025 documented as of this encounter Procedures Procedure Name Priority Date/Time Associated Diagnosis Comments CBC W/O DIFFERENTIAL Routine 04/06/2024 4:42 AM VBA PROGRAMMER BASIC METABOLIC PANEL (CALCIUM TOTAL) Routine 04/06/2024 4:42 AM VBA PROGRAMMER PHOSPHORUS BLOOD Routine 04/06/2024 4:42 AM VBA PROGRAMMER MAGNESIUM BLOOD Routine 04/06/2024 4:[address] HEAD WO CONTRAST STAT 04/04/2024 8 :02 PM VBA PROGRAMMER Fall, initial encounter CBC W/O DIFFERENTIAL Routine 04/01/2024 7:50 PM VBA PROGRAMMER BASIC METABOLIC PANEL (CALCIUM TOTAL) Routine 04/01/2024 7:50 PM VBA PROGRAMMER PHOSPHORUS BLOOD Routine 04/01/2024 7:50 PM VBA PROGRAMMER MAGNESIUM BLOOD Routine 04/01/2024 7:50 PM VBA PROGRAMMER URINALYSIS REFLEX TO MICROSCOPIC NO CULTURE Routine 03/29/2024 1:31 PM VBA PROGRAMMER CBC W AUTO DIFFERENTIAL STAT 03/25/2024 10:32 AM VBA PROGRAMMER BASIC METABOLIC PANEL (CALCIUM TOTAL) STAT 03/25/2024 10:32 AM VBA PROGRAMMER PHOSPHORUS BLOOD STAT 03/25/2024 10:3 2 AM VBA PROGRAMMER MAGNESIUM BLOOD STAT 03/25/2024 10:32 AM VBA PROGRAMMER GLUCOSE - POINT OF CARE Routine 03/24/2024 8:18 PM VBA PROGRAMMER GLUCOSE - POINT OF CARE Routine 03/24/2024 4:53 PM VBA PROGRAMMER GLUCOSE - POINT OF CARE Routine 03/24/2024 11:58 AM VBA PROGRAMMER GLUCOSE - POINT OF CARE Routine 03/24/2024 8:05 AM VBA PROGRAMMER GLUCOSE - POINT OF CARE Routine 03/24/2024 7:04 AM VBA PROGRAMMER GLUCOSE - POINT OF CARE Routine 03/24/2024 12:25 AM VBA PROGRAMMER GLUCOSE - POINT OF CARE Routine 03/23/2024 6:54 PM VBA PROGRAMMER URINALYSIS REFLEX TO MICROSCOPIC NO CULTURE Routine 03/23/2024 6:27 PM VBA PROGRAMMER CBC W AUTO DIFFERENTIAL Timed 03/23/2024 1:04 PM VBA PROGRAMMER CBC W AUTO DIFFERENTIAL Timed 03/23/2024 2:15 AM VBA PROGRAMMER GLUCOSE - POINT OF CARE Routine 03/22/2024 5:50 PM VBA PROGRAMMER BASIC METABOLIC PANEL (CALCIUM TOTAL) AM Draw 03/22/2024 6:56 AM VBA PROGRAMMER CBC W AUTO DIFFERENTIAL Timed 03/21/2024 11:40 PM VBA PROGRAMMER GLUCOSE - POINT OF CARE Routine 03/21/2024 12:36 PM VBA PROGRAMMER GLUCOSE - POINT OF CARE Routine 03/21/2024 6:18 AM VBA PROGRAMMER CALCIUM IONIZED WHOLE BLOOD Timed 03/21/2024 2:12 AM VBA PROGRAMMER CBC W AUTO DIFFERENTIAL Timed 03/21/2024 2:12 AM VBA PROGRAMMER BASIC METABOLIC PANEL (CALCIUM TOTAL) Timed 03/21/2024 2:12 AM VBA PROGRAMMER PHOSPHORUS BLOOD Timed 03/21/2024 2:12 AM VBA PROGRAMMER MAGNESIUM BLOOD Timed 03/21/2024 2:12 AM VBA PROGRAMMER GLUCOSE - POINT OF CARE Routine 03/21/2024 12:20 AM VBA PROGRAMMER GLUCOSE - POINT OF CARE Routine 03/20/2024 5:42 PM VBA PROGRAMMER GLUCOSE - POINT OF CARE Routine 03/20/2024 12:24 PM VBA PROGRAMMER GLUCOSE - POINT OF CARE Routine 03/20/2024 5:08 AM VBA PROGRAMMER GLUCOSE - POINT OF CARE Routine 03/20/2024 1:28 AM VBA PROGRAMMER CALCIUM IONIZED WHOLE BLOOD Timed 03/20/2024 12:29 AM VBA PROGRAMMER CBC W AUTO DIFFERENTIAL Timed 03/20/2024 12:29 AM VBA PROGRAMMER BASIC METABOLIC PANEL (CALCIUM TOTAL) Timed 03/20/2024 12:29 AM VBA PROGRAMMER PHOSPHORUS BLOOD Timed 03/20/2024 12:2 9 AM VBA PROGRAMMER MAGNESIUM BLOOD Timed 03/20/2024 12:29 AM VBA PROGRAMMER GLUCOSE - POINT OF CARE Routine 03/19/2024 6:51 PM VBA PROGRAMMER GLUCOSE - POINT OF CARE Routine 03/19/2024 6:16 PM VBA PROGRAMMER GLUCOSE - POINT OF CARE Routine 03/19/2024 1:09 PM VBA PROGRAMMER GLUCOSE - POINT OF CARE Routine 03/19/2024 5:02 AM VBA PROGRAMMER XR CHEST 1VW PORTABLE Routine 03/19/2024 4:35 AM VBA PROGRAMMER Endotracheal tube present GLUCOSE - POINT OF CARE Routine 03/19/2024 12:00 AM VBA PROGRAMMER CALCIUM IONIZED WHOLE BLOOD Timed 03/18/2024 11:58 PM VBA PROGRAMMER CBC W AUTO DIFFERENTIAL Timed 03/18/2024 11:58 PM VBA PROGRAMMER BASIC METABOLIC PANEL (CALCIUM TOTAL) Timed 03/18/2024 11:58 PM VBA PROGRAMMER PHOSPHORUS BLOOD Timed 03/18/2024 11:5 8 PM VBA PROGRAMMER MAGNESIUM BLOOD Timed 03/18/2024 11:58 PM VBA PROGRAMMER GLUCOSE - POINT OF CARE Routine 03/18/2024 6:39 PM VBA PROGRAMMER CBC W/O DIFFERENTIAL STAT 03/18/2024 3:42 PM VBA PROGRAMMER GLUCOSE - POINT OF CARE Routine 03/18/2024 5:24 AM VBA PROGRAMMER XR CHEST 1VW PORTABLE Routine 03/18/2024 4:20 AM VBA PROGRAMMER Endotracheal tube present TRANSFUSE RED BLOOD CELL LEUKOREDUCED UNIT(S) Routine 03/18/2024 1:41 AM VBA PROGRAMMER PREPARE RBC LEUKOREDUCED UNIT Routine 03/18/2024 1:34 AM VBA PROGRAMMER TYPE + SCREEN PANEL Routine 03/18/2024 1 2:35 AM VBA PROGRAMMER CBC W/O DIFFERENTIAL Routine 03/18/2024 12:35 AM VBA PROGRAMMER CALCIUM IONIZED WHOLE BLOOD Timed 03/18/2024 12:01 AM VBA PROGRAMMER CBC W AUTO DIFFERENTIAL Timed 03/18/2024 12:01 AM VBA PROGRAMMER BASIC METABOLIC PANEL (CALCIUM TOTAL) Timed 03/18/2024 12:01 AM VBA PROGRAMMER PHOSPHORUS BLOOD Timed 03/18/2024 12:0 1 AM VBA PROGRAMMER MAGNESIUM BLOOD Timed 03/18/2024 12:01 AM VBA PROGRAMMER GLUCOSE - POINT OF CARE Routine 03/17/2024 5:07 PM VBA PROGRAMMER GLUCOSE - POINT OF CARE Routine 03/17/2024 12:07 PM VBA PROGRAMMER ECHO COMPLETE W CONTRAST Routine 03/17/2024 11:33 AM VBA PROGRAMMER Trauma GLUCOSE - POINT OF CARE Routine 03/17/2024 6:17 AM VBA PROGRAMMER XR CHEST 1VW PORTABLE Routine 03/17/2024 4:36 AM VBA PROGRAMMER Endotracheal tube present CALCIUM IONIZED WHOLE BLOOD Timed 03/17/2024 12:50 AM VBA PROGRAMMER GLUCOSE - POINT OF CARE Routine 03/17/2024 12:50 AM VBA PROGRAMMER CBC W AUTO DIFFERENTIAL Timed 03/17/2024 12:50 AM VBA PROGRAMMER BASIC METABOLIC PANEL (CALCIUM TOTAL) Timed 03/17/2024 12:50 AM VBA PROGRAMMER PHOSPHORUS BLOOD Timed 03/17/2024 12:5 0 AM VBA PROGRAMMER MAGNESIUM BLOOD Timed 03/17/2024 12:50 AM VBA PROGRAMMER GLUCOSE - POINT OF CARE Routine 03/16/2024 4:44 PM VBA PROGRAMMER GLUCOSE - POINT OF CARE Routine 03/16/2024 11:08 AM VBA PROGRAMMER GLUCOSE - POINT OF CARE Routine 03/16/2024 11:07 AM VBA PROGRAMMER GLUCOSE - POINT OF CARE Routine 03/16/2024 5:32 AM VBA PROGRAMMER XR CHEST 1VW PORTABLE Routine 03/16/2024 3:46 AM VBA PROGRAMMER Endotracheal tube present CALCIUM IONIZED WHOLE BLOOD Timed 03/16/2024 1:37 AM VBA PROGRAMMER CBC W AUTO DIFFERENTIAL Timed 03/16/2024 1:37 AM VBA PROGRAMMER BASIC METABOLIC PANEL (CALCIUM TOTAL) Timed 03/16/2024 1:37 AM VBA PROGRAMMER PHOSPHORUS BLOOD Timed 03/16/2024 1:37 AM VBA PROGRAMMER MAGNESIUM BLOOD Timed 03/16/2024 1:37 AM VBA PROGRAMMER BLOOD GASES ART + COOX PANEL Routine 03/16/2024 1:37 AM VBA PROGRAMMER GLUCOSE - POINT OF CARE Routine 03/16/2024 1:35 AM VBA PROGRAMMER TROPONIN-I HIGH SENSITIVE REFLEX 1HOUR Timed 03/15/2024 9:07 PM VBA PROGRAMMER TROPONIN-I HIGH SENSITIVE BASELINE + 1HR Routine 03/15/2024 6:03 PM VBA PROGRAMMER GLUCOSE - POINT OF CARE Routine 03/15/2024 5:38 PM VBA PROGRAMMER CBC W/O DIFFERENTIAL STAT 03/15/2024 4:53 PM VBA PROGRAMMER PHOSPHORUS BLOOD STAT 03/15/2024 4:53 PM VBA PROGRAMMER MAGNESIUM BLOOD STAT 03/15/2024 4:53 PM VBA PROGRAMMER XR CHEST 1VW PORTABLE Routine 03/15/2024 4:40 PM VBA PROGRAMMER Fall, initial encounter Subarachnoid bleed (HCC) Altered mental status, unspecified altered mental status type Respiratory failure after trauma (HCC) Endotracheal tube present Subdural hematoma (HCC) Acute pain Impaired mobility and ADLs Trauma TROPONIN-I HIGH SENSITIVE STAT 03/15/2024 4:26 PM VBA PROGRAMMER B-TYPE NATRIURETIC PEPTIDE STAT 03/15/2024 4:26 PM VBA PROGRAMMER COMPREHENSIVE METABOLIC PANEL STAT 03/15/2024 4:26 PM VBA PROGRAMMER BLOOD GASES ART + COOX PANEL STAT 03/15/2024 4:26 PM VBA PROGRAMMER EKG 12-LEAD Routine 03/15/2024 4:16 PM VBA PROGRAMMER Fall, initial encounter Subarachnoid bleed (HCC) Altered mental status, unspecified altered mental status type Respiratory failure after trauma (HCC) Endotracheal tube present Subdural hematoma (HCC) Acute pain Impaired mobility and ADLs Trauma BLOOD GASES VASILIY + COOX PANEL Routine 03/15/2024 12:05 PM VBA PROGRAMMER GLUCOSE - POINT OF CARE Routine 03/15/2024 12:03 PM VBA PROGRAMMER GLUCOSE - POINT OF CARE Routine 03/15/2024 6:03 AM VBA PROGRAMMER XR CHEST 1VW PORTABLE Routine 03/15/2024 5:09 AM VBA PROGRAMMER Endotracheal tube present CALCIUM IONIZED WHOLE BLOOD Routine 03/15/2024 12:48 AM VBA PROGRAMMER CBC W AUTO DIFFERENTIAL Timed 03/15/2024 12:48 AM VBA PROGRAMMER BASIC METABOLIC PANEL (CALCIUM TOTAL) Timed 03/15/2024 12:48 AM VBA PROGRAMMER TRIGLYCERIDES BLOOD AM Draw 03/15/2024 1 2:48 AM VBA PROGRAMMER PHOSPHORUS BLOOD Timed 03/15/2024 12:4 8 AM VBA PROGRAMMER MAGNESIUM BLOOD Timed 03/15/2024 12:48 AM VBA PROGRAMMER BLOOD GASES ART + COOX PANEL STAT 03/15/2024 12:48 AM VBA PROGRAMMER GLUCOSE - POINT OF CARE Routine 03/14/2024 11:20 PM VBA PROGRAMMER XR HAND LEFT 2VW Routine 03/14/2024 9:53 PM VBA PROGRAMMER Fall, initial encounter Subarachnoid bleed (HCC) Altered mental status, unspecified altered mental status type Respiratory failure after trauma (HCC) Endotracheal tube present Subdural hematoma (HCC) Acute pain Impaired mobility and ADLs Trauma URINALYSIS REFLEX MICROSCOPIC REFLEX CULTURE Routine 03/14/2024 9:51 PM VBA PROGRAMMER XR HAND RIGHT 2VW Routine 03/14/2024 9:4 2 PM VBA PROGRAMMER Fall, initial encounter Subarachnoid bleed (HCC) Altered mental status, unspecified altered mental status type Respiratory failure after trauma (HCC) Endotracheal tube present Subdural hematoma (HCC) Acute pain Impaired mobility and ADLs Trauma XR KNEE LEFT 2VW OR LESS Routine 03/14/2024 9:31 PM VBA PROGRAMMER Fall, initial encounter Subarachnoid bleed (HCC) Altered mental status, unspecified altered mental status type Respiratory failure after trauma (HCC) Endotracheal tube present Subdural hematoma (HCC) Acute pain Impaired mobility and ADLs Trauma XR KNEE RIGHT 2VW OR LESS Routine 03/14/2024 9:20 PM VBA PROGRAMMER Fall, initial encounter Subarachnoid bleed (HCC) Altered mental status, unspecified altered mental status type Respiratory failure after trauma (HCC) Endotracheal tube present Subdural hematoma (HCC) Acute pain Impaired mobility and ADLs Trauma CALCIUM IONIZED WHOLE BLOOD Timed 03/14/2024 6:46 PM VBA PROGRAMMER BLOOD GASES VASILIY + COOX PANEL STAT 03/14/2024 6:46 PM VBA PROGRAMMER GLUCOSE - POINT OF CARE Routine 03/14/2024 6:08 PM VBA PROGRAMMER CBC W/O DIFFERENTIAL Routine 03/14/2024 6:[address] HEAD WO CONTRAST Routine 03/14/2024 3 :03 PM VBA PROGRAMMER Altered mental status, unspecified altered mental status type GLUCOSE - POINT OF CARE Routine 03/14/2024 11:39 AM VBA PROGRAMMER CALCIUM IONIZED WHOLE BLOOD Routine 03/14/2024 9:29 AM VBA PROGRAMMER BLOOD GASES VASILIY + COOX PANEL Routine 03/14/2024 9:29 AM VBA PROGRAMMER CBC W/O DIFFERENTIAL STAT 03/14/2024 9:22 AM VBA PROGRAMMER BASIC METABOLIC PANEL (CALCIUM TOTAL) STAT 03/14/2024 7:49 AM VBA PROGRAMMER PHOSPHORUS BLOOD STAT 03/14/2024 7:49 AM VBA PROGRAMMER MAGNESIUM BLOOD STAT 03/14/2024 7:49 AM VBA PROGRAMMER BLOOD GASES ART + COOX PANEL STAT 03/14/2024 7:[address] ANGIO BRAIN Routine 03/14/2024 6:50 AM VBA PROGRAMMER Subarachnoid bleed (HCC) BLOOD TYPE VERIFICATION STAT 03/14/2024 5:50 AM VBA PROGRAMMER HEMOGLOBIN A1C Routine 03/14/2024 5:50 AM VBA PROGRAMMER URINE DRUG SCREEN IMMUNOASSAY STAT 03/14/2024 5:23 AM VBA PROGRAMMER GLUCOSE - POINT OF CARE Routine 03/14/2024 5:13 AM VBA PROGRAMMER TEG 6 GLOBAL HEMOSTASIS W/ LYSIS STAT 03/13/2024 11:48 PM VBA PROGRAMMER TEG 6S PLATELET MAPPING STAT 03/13/2024 11:48 PM VBA PROGRAMMER XR ABDOMEN KUB PORTABLE STAT 03/13/2024 11:40 PM VBA PROGRAMMER Fall, initial encounter CT CHEST ABDOMEN PELVIS W CONT STAT 03/13/2024 10:49 PM VBA PROGRAMMER Fall, initial encounter CT LUMBAR SPINE WO CONTRAST STAT 03/13/2024 10:49 PM VBA PROGRAMMER Fall, initial encounter CT THORACIC SPINE WO CONTRAST STAT 03/13/2024 10:49 PM VBA PROGRAMMER Fall, initial encounter CT CERVICAL SPINE WO CONTRAST STAT 03/13/2024 10:49 PM VBA PROGRAMMER Fall, initial encounter CT FACIAL BONES WO CONTRAST STAT 03/13/2024 10:49 PM VBA PROGRAMMER Fall, initial encounter CT HEAD WO CONTRAST STAT 03/13/2024 1 0:49 PM VBA PROGRAMMER Fall, initial encounter XR CHEST 1VW PORTABLE STAT 03/13/2024 10:24 PM VBA PROGRAMMER Fall, initial encounter PTT H STAT 03/13/2024 10:09 PM VBA PROGRAMMER PT-INR [facility] STAT 03/13/2024 10:09 PM VBA PROGRAMMER TYPE + SCREEN PANEL STAT 03/13/2024 1 0:09 PM VBA PROGRAMMER CBC W AUTO DIFFERENTIAL STAT 03/13/2024 10:09 PM VBA PROGRAMMER COMPREHENSIVE METABOLIC PANEL STAT 03/13/2024 10:09 PM VBA PROGRAMMER LIPASE BLOOD STAT 03/13/2024 10:09 PM VBA PROGRAMMER ALCOHOL ETHYL BLOOD STAT 03/13/2024 1 0:09 PM VBA PROGRAMMER ED INTUBATION Routine 03/13/2024 10:10 AM VBA PROGRAMMER documented in this encounter Results * PHOSPHORUS BLOOD (04/06/2024 4:42 AM VBA PROGRAMMER) Phosphorus 3.2 2.9 - 5.1 mg/dL 04/06/2024 5:45 AM VBA PROGRAMMER [facility] Blood BLOOD SPECIMEN / Unknown Lab Venipuncture / Unknown 04/06/2024 4:42 AM VBA PROGRAMMER 04/06/2024 5:17 AM VBA PROGRAMMER Andre Cesar MD LAB - CHEMISTRY O RDERABLES [facility] [address] [place] [address], [facility] [phone] * MAGNESIUM BLOOD (04/06/2024 4:42 AM VBA PROGRAMMER) Pathologist [facility] Magnesium 2.2 1.6 - 2.6 mg/dL 04/06/2024 5:45 AM [facility] Blood BLOOD SPECIMEN / Unknown Lab Venipuncture / Unknown 04/06/2024 4:42 AM VBA PROGRAMMER 04/06/2024 5:17 AM VBA PROGRAMMER Andre Cesar MD LAB - CHEMISTRY O RDERABLES [facility] [address] [place] [address], [facility] [phone] * (ABNORMAL) BASIC METABOLIC PANEL (CALCIUM TOTAL) (04/06/2024 4:42 AM VBA PROGRAMMER) [facility] BUN 25 7 - 26 mg/dL 04/06/2024 [...] Lab Venipuncture / Unknown 04/06/2024 4:42 AM VBA PROGRAMMER 04/06/2024 5:17 AM VBA PROGRAMMER Andre Cesar MD LAB - CHEMISTRY O RDERABLES [facility] [address] [place] [address], [facility] [phone] * (ABNORMAL) CBC W/O DIFFERENTIAL (04/06/2024 4:42 AM VBA PROGRAMMER) WBC 7.4 4.0 - 10.7 x10E9/L 04/06/2024 [...] 7.8 - 11.4 fL 04/06/2024 5:34 AM VBA PROGRAMMER [facility] Blood BLOOD SPECIMEN / Unknown Lab Venipuncture / Unknown 04/06/2024 4:42 AM VBA PROGRAMMER 04/06/2024 5:20 AM VBA PROGRAMMER Andre Cesar MD LAB - HEMATOLOGY ORDERABLES [facility] [address] [place] [address], [facility] [phone] * CT Head Wo Contrast (04/04/2024 8:02 PM VBA PROGRAMMER) Anatomical Region Laterality Modality Head Computed Tomogra phy 04/04/2024 8:30 PM VBA PROGRAMMER Impressions 04/04/2024 11:36 PM VBA PROGRAMMER IMPRESSION: 1.No new intracranial hemorrhage identified. 2.Interval near complete resolution of a small amount of subdural blood products along the left tentorial leaflet and subarachnoid blood products in the bilateral cerebral sulci and cerebral fissures. 3.Bilateral chronic subdural fluid collections are similar in maximum thickness, now decrease in density and now nearly isodense relative to CSF. Report dictated by Jann Viera MD (senior resident care director). I, Gabe Page MD have personally reviewed and interpreted this examination/study. > Interpreting Provider: Gabe Page MD on 04/04/2024 11:36 PM Narrative 04/04/2024 11:36 PM VBA PROGRAMMER PROCEDURE: ??CT HEAD WO CONTRAST, DATE/TIME OF EXAM: ??04/04/2024 8:03 PM, LOCATION ??[facility] INDICATION: W19.XXXA: Fall, initial encounter EXAMINATION: [...] DATE/TIME OF EXAM: 04/04/2024 8:03 PM, LOCATION [facility] INDICATION: W19.XXXA: Fall, initial encounter EXAMINATION: [...] toCSF. Report dictated by Jann Viera MD (senior resident care director). I, Gabe Page MD have personally reviewed and interpretedthis examination/study. > Interpreting Provider: Gabe Page MD on 04/04/2024 11:36PM Isabella Elliott MD CT ORDERABLES * PHOSPHORUS BLOOD (04/01/2024 7:50 PM VBA PROGRAMMER) Phosphorus 3.4 2.9 - 5.1 mg/dL 04/01/2024 9:47 PM VBA PROGRAMMER [facility] Blood BLOOD SPECIMEN / Unknown Lab Venipuncture / Unknown 04/01/2024 7:50 PM VBA PROGRAMMER 04/01/2024 8:51 PM VBA PROGRAMMER Andre Cesar MD LAB - CHEMISTRY O RDERABLES [address] [address], [facility] [phone] * MAGNESIUM BLOOD (04/01/2024 7:50 PM VBA PROGRAMMER) Magnesium 2.2 1.6 - 2.6 mg/dL 04/01/2024 9:47 PM VBA PROGRAMMER [facility] Blood BLOOD SPECIMEN / Unknown Lab Venipuncture / Unknown 04/01/2024 7:50 PM VBA PROGRAMMER 04/01/2024 8:51 PM VBA PROGRAMMER Andre Cesar MD LAB - CHEMISTRY O RDERABLES [address] [address], [place] [phone] * (ABNORMAL) BASIC METABOLIC PANEL (CALCIUM TOTAL) (04/01/2024 7:50 PM VBA PROGRAMMER) BUN 28(H) 7 - 26 mg/dL 04/01/2024 9:47 PM [facility] Creatinine 0.81 0.56 - 0.96 mg/dL 04/01/2024 9:47 PM [facility] Sodium 144 136 - 145 mmol/L 04/01/2024 9:47 PM [facility] Potassium 4.6(H) 3.5 - 4.5 mmol/L 04/01/2024 9:47 PM [facility] Chloride 111(H) 98 - 107 mmol/L 04/01/2024 9:47 PM [facility] CO2 24 22 - 29 mmol/L 04/01/2024 9:47 PM [facility] Glucose 140(H) 70 - 99 mg/dL 04/01/2024 9:47 PM [facility] Calcium 8.6 8.4 - 10.2 mg/dL 04/01/2024 9:47 PM [facility] Anion Gap 9 6 - 16 04/01/2024 9:47 PM [facility] BUN/Creatinine Ratio 35(H) 7 - 23 04/01/2024 9:47 PM [facility] Osmolality Calculated 306(H) 275 - 295 mOsm/kg 04/01/2024 9:47 PM [facility] eGFR by CKD-EPI 70(L) >=90 mL/min/1.7 3 m2 04/01/2024 9:47 PM [facility] Blood BLOOD SPECIMEN / Unknown Lab Venipuncture / Unknown 04/01/2024 7:50 PM VBA PROGRAMMER 04/01/2024 8:51 PM [facility] Andre Cesar MD LAB - CHEMISTRY O RDERABLES [facility] [address] [place] [phone], [facility] [phone] * (ABNORMAL) CBC W/O DIFFERENTIAL (04/01/2024 7:50 PM VBA PROGRAMMER) [facility] WBC 7.3 4.0 - 10.7 x10E9/L 04/01/2024 9:03 PM [facility] RBC Count 3.24(L) 3.90 - 5.20 x10E12/L 04/01/2024 9:03 PM [facility] Hemoglobin 9.1(L) 11.9 - 15.8 g/dL 04/01/2024 9:03 PM [facility] Hematocrit 30.5(L) 34.8 - 46.1 % 04/01/2024 9:03 PM [facility] MCV 94.1 80.0 - 98.0 fL 04/01/2024 9:03 PM [facility] MCH 28.1 26.7 - 33.6 pg 04/01/2024 9:03 PM [facility] MCHC 29.8(L) 31.7 - 36.3 g/dL 04/01/2024 9:03 PM [facility] RDW-CV 14.8 11.3 - 14.8 % 04/01/2024 9:03 PM [facility] Platelet Count 374 150 - 420 x10E9/L 04/01/2024 9:03 PM [facility] MPV 10.6 7.8 - 11.4 fL 04/01/2024 9:03 PM [facility] Blood BLOOD SPECIMEN / Unknown Lab Venipuncture / Unknown 04/01/2024 7:50 PM VBA PROGRAMMER 04/01/2024 8:51 PM VBA PROGRAMMER Andre Cesar MD LAB - HEMATOLOGY ORDERABLES Performing Organization Address [facility]/State/[facility] Co de Phone Number [facility] [address] [place] [phone] [phone] * (ABNORMAL) URINALYSIS REFLEX TO MICROSCOPIC NO CULTURE (03/29/2024 1:31 PM VBA PROGRAMMER) Color UA Yellow Straw, Yellow 03/29/2024 1:54 PM [facility] Clarity UA Turbid(A) Clear 03/29/2024 1:54 PM [facility] Specific Bigelow UA 1.012 1.005 - 1.030 03/29/2024 1:54 PM [facility] pH UA 8.0 5.0 - 8.0 pH [...] Unknown Collection / Unknown 03/29/2024 1:31 PM VBA PROGRAMMER 03/29/2024 1:31 PM [facility] - 03/29/2024 1:54 PM VBA PROGRAMMER Dian Valera ROBOTICS TESTING TECHNICIAN-ELECTRIC MOTOR REPAIR SUPERVISOR LAB - URINALYSIS ORDERABLES [facility] [address] [place] [phone], [facility] [phone] * PHOSPHORUS BLOOD (03/25/2024 10:32 AM VBA PROGRAMMER) Phosphorus 3.2 2.9 - 5.1 mg/dL 03/25/2024 11:10 AM [facility] Blood BLOOD SPECIMEN / Unknown Lab Venipuncture / Unknown 03/25/2024 10:32 AM VBA PROGRAMMER 03/25/2024 10:44 AM VBA PROGRAMMER Bethanie Benitez APRN-VENKATESH LAB - CHEMISTRY O RDCATERINA [address] [address], [facility] [phone] * MAGNESIUM BLOOD (03/25/2024 10:32 AM VBA PROGRAMMER) Magnesium 2.3 1.6 - 2.6 mg/dL 03/25/2024 11:10 AM [facility] Blood BLOOD SPECIMEN / Unknown Lab Venipuncture / Unknown 03/25/2024 10:32 AM VBA PROGRAMMER 03/25/2024 10:44 AM VBA PROGRAMMER Bethanie Benitez APRN-VENKATESH LAB - CHEMISTRY O MORRO Performing Organization Address City/[facility]/ZIP Co de Phone Number [address] [address], [facility] [phone] * (ABNORMAL) BASIC METABOLIC PANEL (CALCIUM TOTAL) (03/25/2024 10:32 AM VBA PROGRAMMER) BUN 18 7 - 26 mg/dL 03/25/2024 11:10 AM [facility] Creatinine 0.71 0.56 - 0.96 mg/dL 03/25/2024 11:10 AM [facility] Sodium 143 136 - 145 mmol/L 03/25/2024 11:10 AM [facility] Potassium 4.3 3.5 - 4.5 mmol/L 03/25/2024 11:10 AM [facility] Chloride 106 98 - 107 mmol/L 03/25/2024 11:10 AM [facility] CO2 26 22 - 29 mmol/L 03/25/2024 11:10 AM [facility] Glucose 101(H) 70 - 99 mg/dL 03/25/2024 11:10 AM [facility] Calcium 8.7 8.4 - 10.2 mg/dL 03/25/2024 11:10 AM [facility] Anion Gap 11 6 - 16 03/25/2024 11:10 AM [facility] BUN/Creatinine Ratio 25(H) 7 - 23 03/25/2024 11:10 AM [facility] Osmolality Calculated 298(H) 275 - 295 mOsm/kg 03/25/2024 11:10 AM [facility] eGFR by CKD-EPI 82(L) >=90 mL/min/1.7 3 m2 03/25/2024 11:10 AM [facility] Blood BLOOD SPECIMEN / Unknown Lab Venipuncture / Unknown 03/25/2024 10:32 AM VBA PROGRAMMER 03/25/2024 10:44 AM [facility] Bethanie Benitez ROBOTICS TESTING TECHNICIAN-ELECTRIC MOTOR REPAIR SUPERVISOR LAB - CHEMISTRY O RDERABLES [facility] [address] [place] [address], [facility] [phone] * (ABNORMAL) CBC W AUTO DIFFERENTIAL (03/25/2024 10:32 AM [facility]) WBC 9.1 4.0 - 10.7 x10E9/L 03/25/2024 [...] Lab Venipuncture / Unknown 03/25/2024 10:32 AM VBA PROGRAMMER 03/25/2024 10:44 AM [facility] Bethanie Benitez ROBOTICS TESTING TECHNICIAN-ELECTRIC MOTOR REPAIR SUPERVISOR LAB - HEMATOLOGY ORDERABLES [facility] [address] [place] [address], [place] [phone] * (ABNORMAL) GLUCOSE - POINT OF CARE (03/24/2024 8:18 PM VBA PROGRAMMER) Glucose WB/POC 123(H) 70 - 99 mg/dL 03/24/2024 8:22 PM VBA PROGRAMMER [facility] Specimen Type Cap Fingerstick 2023 8:22 PM VBA PROGRAMMER [facility] Blood BLOOD SPECIMEN / Unknown 03/24/2024 8:18 PM VBA PROGRAMMER 03/24/2024 8:22 PM VBA PROGRAMMER Lennie Anna MD LAB - POINT OF CARE ORDERABLES [facility] [address] [place] [address], [place] [phone] * (ABNORMAL) GLUCOSE - POINT OF CARE (03/24/2024 4:53 PM VBA PROGRAMMER) Glucose WB/POC 112(H) 70 - 99 mg/dL 03/24/2024 4:59 PM VBA PROGRAMMER [facility] Specimen Type Arterial 03/24/2024 4:59 PM VBA PROGRAMMER [facility] Blood BLOOD SPECIMEN / Unknown 03/24/2024 4:53 PM VBA PROGRAMMER 03/24/2024 4:59 PM VBA PROGRAMMER Lennie Anna MD LAB - POINT OF CARE ORDERABLES [facility] [address] [place] [phone], [place] [phone] * (ABNORMAL) GLUCOSE - POINT OF CARE (03/24/2024 11:58 AM VBA PROGRAMMER) Glucose WB/POC 130(H) 70 - 99 mg/dL 03/24/2024 4:59 PM VBA PROGRAMMER [facility] Specimen Type Arterial 03/24/2024 4:59 PM VBA PROGRAMMER [facility] Blood BLOOD SPECIMEN / Unknown 03/24/2024 11:58 AM VBA PROGRAMMER 03/24/2024 4:59 PM VBA PROGRAMMER Lennie Anna MD LAB - POINT OF CARE ORDERABLES [address] [address], [place] [phone] * (ABNORMAL) GLUCOSE - POINT OF CARE (03/24/2024 8:05 AM VBA PROGRAMMER) Glucose WB/POC 148(H) 70 - 99 mg/dL 03/24/2024 4:59 PM VBA PROGRAMMER [facility] Specimen Type Arterial 03/24/2024 4:59 PM VBA PROGRAMMER [facility] Blood BLOOD SPECIMEN / Unknown 03/24/2024 8:05 AM VBA PROGRAMMER 03/24/2024 4:59 PM VBA PROGRAMMER Lennie Anna MD LAB - POINT OF CARE ORDERABLES Performing Organization Address City/[facility]/ZIP Co de Phone Number [address] [address], [place] [phone] * (ABNORMAL) GLUCOSE - POINT OF CARE (03/24/2024 7:04 AM VBA PROGRAMMER) Glucose WB/POC 115(H) 70 - 99 mg/dL 03/24/2024 7:05 AM [facility] Specimen Type Cap Fingerstick 2023 7:05 AM [facility] Blood BLOOD SPECIMEN / Unknown 03/24/2024 7:04 AM VBA PROGRAMMER 03/24/2024 7:05 AM VBA PROGRAMMER Lennie Anna MD LAB - POINT OF CARE ORDERABLES [facility] [address] [place] [phone], [place] [phone] * (ABNORMAL) GLUCOSE - POINT OF CARE (03/24/2024 12:25 AM VBA PROGRAMMER) Glucose WB/POC 129(H) 70 - 99 mg/dL 03/24/2024 12:30 AM [facility] Specimen Type Cap Fingerstick 2023 12:30 AM [facility] Blood BLOOD SPECIMEN / Unknown 03/24/2024 12:25 AM VBA PROGRAMMER 03/24/2024 12:30 AM VBA PROGRAMMER Lennie Anna MD LAB - POINT OF CARE ORDERABLES [address] [address], [facility] [phone] * (ABNORMAL) GLUCOSE - POINT OF CARE (03/23/2024 6:54 PM VBA PROGRAMMER) Glucose WB/POC 157(H) 70 - 99 mg/dL 03/23/2024 7:48 PM [facility] Specimen Type Cap Fingerstick 2023 7:48 PM [facility] Blood BLOOD SPECIMEN / Unknown 03/23/2024 6:54 PM VBA PROGRAMMER 03/23/2024 7:48 PM VBA PROGRAMMER Lennie Anna MD LAB - POINT OF CARE ORDERABLES [address] [address], [place] [phone] * (ABNORMAL) URINALYSIS REFLEX TO MICROSCOPIC NO CULTURE (03/23/2024 6:27 PM VBA PROGRAMMER) Color UA Ramya(A) Straw, Yellow 03/23/2024 7:28 PM [facility] Clarity UA Cloudy(A) Clear 03/23/2024 7:28 PM [facility] Specific Bigelow UA 1.023 1.005 - 1.030 03/23/2024 7:28 PM [facility] pH UA 6.0 5.0 - 8.0 pH 03/23/2024 7:28 PM [facility] Protein UA 1+(A) Negative 03/23/2024 7:28 PM [facility] Glucose UA Negative Negative 03/23/2024 7:28 PM [facility] Ketone UA Negative Negative 03/23/2024 7:28 PM [facility] Bilirubin UA Negative Negative 03/23/2024 7:28 PM [facility] Blood UA 1+(A) Negative 03/23/2024 7:28 PM [facility] Nitrite UA Positive(A) Negative 03/23/2024 7:28 PM [facility] Leukocyte Esterase 3+(A) Negative 03/23/2024 7:28 PM [facility] Urobilinogen UA 2.0(A) Negative mg/dL 03/23/2024 7:28 PM [facility] RBC UA 6-10(A) None Seen, 0-2, 3-5 /HPF 03/23/2024 7:28 PM [facility] WBC UA >100(A) None Seen, 0-5 /HPF 03/23/2024 7:28 PM [facility] Bacteria UA 1+(A) None /HPF 03/23/2024 7:28 PM [facility] Squamous Epithelial Cells UA 0-2 None Seen, 0-2, 3-5 /HPF 03/23/2024 7:28 PM [facility] Urine URINE SPECIMEN OBTAINED BY CLEAN CATCH PROCEDURE / Unknown Collection / Unknown 03/23/2024 6:27 PM VBA PROGRAMMER 03/23/2024 6:42 PM [facility] - 03/23/2024 7:28 PM VBA PROGRAMMER Dian Valera ROBOTICS TESTING TECHNICIAN-ELECTRIC MOTOR REPAIR SUPERVISOR LAB - URINALYSIS ORDERABLES Performing Organization Address [facility]/State/[facility] Co de Phone Number [facility] [address] [place] [phone], [facility] [phone] * (ABNORMAL) CBC W AUTO DIFFERENTIAL (03/23/2024 1:04 PM VBA PROGRAMMER) WBC 11.4(H) 4.0 - 10.7 x10E9/L 03/23/2024 1:24 PM [facility] RBC Count 2.90(L) 3.90 - 5.20 x10E12/L 03/23/2024 1:24 PM [facility] Hemoglobin 8.5(L) 11.9 - 15.8 g/dL 03/23/2024 1:24 PM [facility] Hematocrit 26.8(L) 34.8 - 46.1 % 03/23/2024 1:24 PM [facility] MCV 92.4 80.0 - 98.0 fL 03/23/2024 1:24 PM [facility] MCH 29.3 26.7 - 33.6 pg 03/23/2024 1:24 PM [facility] MCHC 31.7 31.7 - 36.3 g/dL 03/23/2024 1:24 PM [facility] RDW-CV 15.8(H) 11.3 - 14.8 % 03/23/2024 1:24 PM [facility] Platelet Count 271 150 - 420 x10E9/L 03/23/2024 1:24 PM [facility] MPV 10.0 7.8 - 11.4 fL 03/23/2024 1:24 PM [facility] Neutrophil % 77.9(H) 41.0 - 74.0 % 03/23/2024 1:24 PM [facility] Lymphocyte % 9.8(L) 17.0 - 47.0 % 03/23/2024 1:24 PM [facility] Monocyte % 8.2 3.0 - 11.0 % 03/23/2024 1:24 PM [facility] Eosinophil % 3.3 0.0 - 7.0 % 03/23/2024 1:24 PM [facility] Basophil % 0.3 0.0 - 1.6 % 03/23/2024 1:24 PM [facility] Immature Granulocytes % 0.5 0.0 - 1.0 % 03/23/2024 1:24 PM [facility] Neutrophil Absolute 8.88(H) 1.60 - 7.50 x10E9/L 03/23/2024 1:24 PM [facility] Lymphocyte Absolute 1.11 1.00 - 4.40 x10E9/L 03/23/2024 1:24 PM [facility] Monocyte Absolute 0.93 0.15 - 1.00 x10E9/L 03/23/2024 1:24 PM [facility] Eosinophil Absolute 0.37 0.00 - 0.60 x10E9/L 03/23/2024 1:24 PM [facility] Basophil Absolute 0.03 0.00 - 0.13 x10E9/L 03/23/2024 1:24 PM [facility] Blood BLOOD SPECIMEN / Unknown Lab Venipuncture / Unknown 03/23/2024 1:04 PM VBA PROGRAMMER 03/23/2024 1:13 PM VBA PROGRAMMER Dian Valera ROBOTICS TESTING TECHNICIAN-ELECTRIC MOTOR REPAIR SUPERVISOR LAB - HEMATOLOGY ORDERABLES Performing Organization Address City/State/[facility] Co de Phone Number [facility] [address] [place] [address], [facility] [phone] * (ABNORMAL) CBC W AUTO DIFFERENTIAL (03/23/2024 2:15 AM VBA PROGRAMMER) WBC 10.5 4.0 - 10.7 x10E9/L 03/23/2024 3:03 AM [facility] RBC Count 2.92(L) 3.90 - 5.20 x10E12/L 03/23/2024 3:03 AM [facility] Hemoglobin 8.5(L) 11.9 - 15.8 g/dL 03/23/2024 3:03 AM [facility] Hematocrit 26.9(L) 34.8 - 46.1 % 03/23/2024 3:03 AM [facility] MCV 92.1 80.0 - 98.0 fL 03/23/2024 3:03 AM [facility] MCH 29.1 26.7 - 33.6 pg 03/23/2024 3:03 AM [facility] MCHC 31.6(L) 31.7 - 36.3 g/dL 03/23/2024 3:03 AM [facility] RDW-CV 15.9(H) 11.3 - 14.8 % 03/23/2024 3:03 AM [facility] Platelet Count 284 150 - 420 x10E9/L 03/23/2024 3:03 AM [facility] MPV 9.8 7.8 - 11.4 fL 03/23/2024 3:03 AM [facility] Neutrophil % 74.9(H) 41.0 - 74.0 % 03/23/2024 3:03 AM [facility] Lymphocyte % 13.7(L) 17.0 - 47.0 % 03/23/2024 3:03 AM [facility] Monocyte % 8.5 3.0 - 11.0 % 03/23/2024 3:03 AM [facility] Eosinophil % 2.2 0.0 - 7.0 % 03/23/2024 3:03 AM [facility] Basophil % 0.2 0.0 - 1.6 % 03/23/2024 3:03 AM [facility] Immature Granulocytes % 0.5 0.0 - 1.0 % 03/23/2024 3:03 AM [facility] Neutrophil Absolute 7.90(H) 1.60 - 7.50 x10E9/L 03/23/2024 3:03 AM [facility] Lymphocyte Absolute 1.44 1.00 - 4.40 x10E9/L 03/23/2024 3:03 AM [facility] Monocyte Absolute 0.89 0.15 - 1.00 x10E9/L 03/23/2024 3:03 AM [facility] Eosinophil Absolute 0.23 0.00 - 0.60 x10E9/L 03/23/2024 3:03 AM [facility] Basophil Absolute 0.02 0.00 - 0.13 x10E9/L 03/23/2024 3:03 AM [facility] Blood BLOOD SPECIMEN / Unknown Lab Venipuncture / Unknown 03/23/2024 2:15 AM VBA PROGRAMMER 03/23/2024 2:49 AM [facility] Lennie Anna MD LAB - HEMATOLOG Y ORDERABLES [facility] [address] [place] [phone], [facility] [phone] * (ABNORMAL) GLUCOSE - POINT OF CARE (03/22/2024 5:50 PM VBA PROGRAMMER) Glucose WB/POC 120(H) 70 - 99 mg/dL 03/22/2024 10:24 PM [facility] Specimen Type Arterial 03/22/2024 10:24 PM [facility] Blood BLOOD SPECIMEN / Unknown 03/22/2024 5:50 PM VBA PROGRAMMER 03/22/2024 10:24 PM VBA PROGRAMMER Lennie Anna MD LAB - POINT OF CARE ORDERABLES [facility] [address] [place] [address], [facility] [phone] * (ABNORMAL) BASIC METABOLIC PANEL (CALCIUM TOTAL) (03/22/2024 6:56 AM VBA PROGRAMMER) BUN 16 7 - 26 mg/dL 03/22/2024 8:29 AM [facility] Creatinine 0.88 0.56 - 0.96 mg/dL 03/22/2024 8:29 AM [facility] Sodium 143 136 - 145 mmol/L 03/22/2024 8:29 AM [facility] Potassium 4.4 3.5 - 4.5 mmol/L 03/22/2024 8:29 AM [facility] Chloride 104 98 - 107 mmol/L 03/22/2024 8:29 AM [facility] CO2 22 22 - 29 mmol/L 03/22/2024 8:29 AM [facility] Glucose 62(L) 70 - 99 mg/dL 03/22/2024 8:29 AM [facility] Calcium 8.8 8.4 - 10.2 mg/dL 03/22/2024 8:29 AM [facility] Anion Gap 17(H) 6 - 16 03/22/2024 8:29 AM [facility] BUN/Creatinine Ratio 18 7 - 23 03/22/2024 8:29 AM [facility] Osmolality Calculated 295 275 - 295 mOsm/kg 03/22/2024 8:29 AM [facility] eGFR by CKD-EPI 64(L) >=90 mL/min/1.7 3 m2 03/22/2024 8:29 AM [facility] Blood BLOOD SPECIMEN / Unknown Lab Venipuncture / Unknown 03/22/2024 6:56 AM VBA PROGRAMMER 03/22/2024 7:57 AM VBA PROGRAMMER Bethanie Alvares Eli [employer] TESTING TECHNICIAN-ELECTRIC MOTOR REPAIR SUPERVISOR LAB - CHEMISTRY O RDERABLES [facility] [address] [place] [phone], [facility] [phone] * (ABNORMAL) CBC W AUTO DIFFERENTIAL (03/21/2024 11:40 PM VBA PROGRAMMER) WBC 11.2(H) 4.0 - 10.7 x10E9/L 03/21/2024 11:58 PM [facility] RBC Count 3.14(L) 3.90 - 5.20 x10E12/L 03/21/2024 11:58 PM [facility] Hemoglobin 9.1(L) 11.9 - 15.8 g/dL 03/21/2024 11:58 PM [facility] Hematocrit 28.8(L) 34.8 - 46.1 % 03/21/2024 11:58 PM [facility] MCV 91.7 80.0 - 98.0 fL 03/21/2024 11:58 PM [facility] MCH 29.0 26.7 - 33.6 pg 03/21/2024 11:58 PM [facility] MCHC 31.6(L) 31.7 - 36.3 g/dL 03/21/2024 11:58 PM [facility] RDW-CV 16.0(H) 11.3 - 14.8 % 03/21/2024 11:58 PM [facility] Platelet Count 265 150 - 420 x10E9/L 03/21/2024 11:58 PM [facility] MPV 10.0 7.8 - 11.4 fL 03/21/2024 11:58 PM [facility] Neutrophil % 77.5(H) 41.0 - 74.0 % 03/21/2024 11:58 PM [facility] Lymphocyte % 11.3(L) 17.0 - 47.0 % 03/21/2024 11:58 PM [facility] Monocyte % 8.7 3.0 - 11.0 % 03/21/2024 11:58 PM [facility] Eosinophil % 2.0 0.0 - 7.0 % 03/21/2024 11:58 PM [facility] Basophil % 0.2 0.0 - 1.6 % 03/21/2024 11:58 PM [facility] Immature Granulocytes % 0.3 0.0 - 1.0 % 03/21/2024 11:58 PM [facility] Neutrophil Absolute 8.69(H) 1.60 - 7.50 x10E9/L 03/21/2024 11:58 PM [facility] Lymphocyte Absolute 1.27 1.00 - 4.40 x10E9/L 03/21/2024 11:58 PM [facility] Monocyte Absolute 0.98 0.15 - 1.00 x10E9/L 03/21/2024 11:58 PM [facility] Eosinophil Absolute 0.23 0.00 - 0.60 x10E9/L 03/21/2024 11:58 PM [facility] Basophil Absolute 0.02 0.00 - 0.13 x10E9/L 03/21/2024 11:58 PM [facility] Blood BLOOD SPECIMEN / Unknown Lab Venipuncture / Unknown 03/21/2024 11:40 PM VBA PROGRAMMER 03/21/2024 11:49 PM VBA PROGRAMMER Lennie Anna MD LAB - HEMATOLOG Y ORDERABLES Performing Organization Address [facility]/State/[facility] Co de Phone Number [address] [address], [facility] [phone] * (ABNORMAL) GLUCOSE - POINT OF CARE (03/21/2024 12:36 PM VBA PROGRAMMER) Glucose WB/POC 110(H) 70 - 99 mg/dL 03/21/2024 6:24 PM [facility] Specimen Type Arterial 03/21/2024 6:24 PM [facility] Blood BLOOD SPECIMEN / Unknown 03/21/2024 12:36 PM VBA PROGRAMMER 03/21/2024 6:24 PM VBA PROGRAMMER Lennie Anna MD LAB - POINT OF CARE ORDERABLES [address] [address], [place] [phone] * (ABNORMAL) GLUCOSE - POINT OF CARE (03/21/2024 6:18 AM VBA PROGRAMMER) Glucose WB/POC 141(H) 70 - 99 mg/dL 03/21/2024 6:23 AM [facility] Specimen Type Cap Fingerstick 2023 6:23 AM [facility] Blood BLOOD SPECIMEN / Unknown 03/21/2024 6:18 AM VBA PROGRAMMER 03/21/2024 6:23 AM VBA PROGRAMMER Lennie Anna MD LAB - POINT OF CARE ORDERABLES Performing Organization Address City/[facility]/ZIP Co de Phone Number [address] [address], [place] [phone] * (ABNORMAL) CALCIUM IONIZED WHOLE BLOOD (03/21/2024 2:12 AM VBA PROGRAMMER) [facility] Calcium Ionized 1.15 mmol/L 03/21/2024 2:42 AM [facility] pH 7.39 7.35 - 7.45 pH 03/21/2024 2:42 AM [facility] Ionized Calcium pH Adjusted 1.15(L) 1.19 - 1.34 mmol/L 03/21/2024 2:42 AM [facility] Blood BLOOD SPECIMEN / Unknown Lab Venipuncture / Unknown 03/21/2024 2:12 AM VBA PROGRAMMER 03/21/2024 2:40 AM VBA PROGRAMMER Lennie Anna MD LAB - CHEMISTRY ORDERABLES [address] [address], [place] [phone] * MAGNESIUM BLOOD (03/21/2024 2:12 AM VBA PROGRAMMER) Pathologist [facility] Magnesium 2.1 1.6 - 2.6 mg/dL 03/21/2024 3:09 AM [facility] Blood BLOOD SPECIMEN / Unknown Lab Venipuncture / Unknown 03/21/2024 2:12 AM VBA PROGRAMMER 03/21/2024 2:42 AM VBA PROGRAMMER Lennie Anna MD LAB - CHEMISTRY ORDERABLES Performing Organization Address City/[facility]/ZIP Co de Phone Number [address] [address], [facility] [phone] * PHOSPHORUS BLOOD (03/21/2024 2:12 AM VBA PROGRAMMER) Phosphorus 3.0 2.9 - 5.1 mg/dL 03/21/2024 3:09 AM [facility] Blood BLOOD SPECIMEN / Unknown Lab Venipuncture / Unknown 03/21/2024 2:12 AM VBA PROGRAMMER 03/21/2024 2:42 AM VBA PROGRAMMER Lennie Anna MD LAB - CHEMISTRY ORDERABLES [address] [address], [facility] [phone] * (ABNORMAL) BASIC METABOLIC PANEL (CALCIUM TOTAL) (03/21/2024 2:12 AM VBA PROGRAMMER) BUN 16 7 - 26 mg/dL 03/21/2024 3:17 AM [facility] Creatinine 0.99(H) 0.56 - 0.96 mg/dL 03/21/2024 3:17 AM [facility] Sodium 136 136 - 145 mmol/L 03/21/2024 3:17 AM [facility] Potassium 4.2 3.5 - 4.5 mmol/L 03/21/2024 3:17 AM [facility] Chloride 102 98 - 107 mmol/L 03/21/2024 3:17 AM [facility] CO2 28 22 - 29 mmol/L 03/21/2024 3:17 AM [facility] Glucose 150(H) 70 - 99 mg/dL 03/21/2024 3:17 AM [facility] Calcium 8.1(L) 8.4 - 10.2 mg/dL 03/21/2024 3:17 AM [facility] Anion Gap 6 6 - 16 03/21/2024 3:17 AM [facility] BUN/Creatinine Ratio 16 7 - 23 03/21/2024 3:17 AM [facility] Osmolality Calculated 286 275 - 295 mOsm/kg 03/21/2024 3:17 AM [facility] eGFR by CKD-EPI 55(L) >=90 mL/min/1.7 3 m2 03/21/2024 3:17 AM [facility] Blood BLOOD SPECIMEN / Unknown Lab Venipuncture / Unknown 03/21/2024 2:12 AM VBA PROGRAMMER 03/21/2024 2:42 AM [facility] Lennie Anna MD LAB - CHEMISTRY ORDERABLES [facility] [address] [place] [phone], [facility] [phone] * (ABNORMAL) CBC W AUTO DIFFERENTIAL (03/21/2024 2:12 AM VBA PROGRAMMER) WBC 10.9(H) 4.0 - 10.7 x10E9/L 03/21/2024 2:51 AM [facility] RBC Count 3.24(L) 3.90 - 5.20 x10E12/L 03/21/2024 2:51 AM [facility] Hemoglobin 9.5(L) 11.9 - 15.8 g/dL 03/21/2024 2:51 AM [facility] Hematocrit 29.5(L) 34.8 - 46.1 % 03/21/2024 2:51 AM [facility] MCV 91.0 80.0 - 98.0 fL 03/21/2024 2:51 AM [facility] MCH 29.3 26.7 - 33.6 pg 03/21/2024 2:51 AM [facility] MCHC 32.2 31.7 - 36.3 g/dL 03/21/2024 2:51 AM [facility] RDW-CV 16.1(H) 11.3 - 14.8 % 03/21/2024 2:51 AM [facility] Platelet Count 272 150 - 420 x10E9/L 03/21/2024 2:51 AM [facility] MPV 10.4 7.8 - 11.4 fL 03/21/2024 2:51 AM [facility] Neutrophil % 84.0(H) 41.0 - 74.0 % 03/21/2024 2:51 AM [facility] Lymphocyte % 7.1(L) 17.0 - 47.0 % 03/21/2024 2:51 AM [facility] Monocyte % 8.1 3.0 - 11.0 % 03/21/2024 2:51 AM [facility] Eosinophil % 0.2 0.0 - 7.0 % 03/21/2024 2:51 AM [facility] Basophil % 0.2 0.0 - 1.6 % 03/21/2024 2:51 AM [facility] Immature Granulocytes % 0.4 0.0 - 1.0 % 03/21/2024 2:51 AM [facility] Neutrophil Absolute 9.14(H) 1.60 - 7.50 x10E9/L 03/21/2024 2:51 AM [facility] Lymphocyte Absolute 0.77(L) 1.00 - 4.40 x10E9/L 03/21/2024 2:51 AM [facility] Monocyte Absolute 0.88 0.15 - 1.00 x10E9/L 03/21/2024 2:51 AM [facility] Eosinophil Absolute 0.02 0.00 - 0.60 x10E9/L 03/21/2024 2:51 AM [facility] Basophil Absolute 0.02 0.00 - 0.13 x10E9/L 03/21/2024 2:51 AM [facility] Blood BLOOD SPECIMEN / Unknown Lab Venipuncture / Unknown 03/21/2024 2:12 AM VBA PROGRAMMER 03/21/2024 2:42 AM VBA PROGRAMMER Lennie Anna MD LAB - HEMATOLOG Y ORDERABLES [facility] [address] [place] [address], [place] [phone] * (ABNORMAL) GLUCOSE - POINT OF CARE (03/21/2024 12:20 AM VBA PROGRAMMER) Glucose WB/POC 154(H) 70 - 99 mg/dL 03/21/2024 12:38 AM VBA PROGRAMMER [facility] Specimen Type Cap Fingerstick 2023 12:38 AM VBA PROGRAMMER [facility] Blood BLOOD SPECIMEN / Unknown 03/21/2024 12:20 AM VBA PROGRAMMER 03/21/2024 12:38 AM VBA PROGRAMMER Lennie Anna MD LAB - POINT OF CARE ORDERABLES [place] [id number] [place] [address], [place] [phone] * (ABNORMAL) GLUCOSE - POINT OF CARE (03/20/2024 5:42 PM VBA PROGRAMMER) Glucose WB/POC 122(H) 70 - 99 mg/dL 03/20/2024 5:46 PM VBA PROGRAMMER [facility] Specimen Type Cap Fingerstick 2023 5:46 PM VBA PROGRAMMER [facility] Blood BLOOD SPECIMEN / Unknown 03/20/2024 5:42 PM VBA PROGRAMMER 03/20/2024 5:46 PM VBA PROGRAMMER Lennie Anna MD LAB - POINT OF CARE ORDERABLES [facility] [address] [place] [address], [place] [phone] * (ABNORMAL) GLUCOSE - POINT OF CARE (03/20/2024 12:24 PM VBA PROGRAMMER) Glucose WB/POC 154(H) 70 - 99 mg/dL 03/20/2024 5:46 PM VBA PROGRAMMER [facility] Specimen Type Cap Fingerstick 2023 5:46 PM VBA PROGRAMMER [facility] Blood BLOOD SPECIMEN / Unknown 03/20/2024 12:24 PM VBA PROGRAMMER 03/20/2024 5:46 PM VBA PROGRAMMER Lennie Anna MD LAB - POINT OF CARE ORDERABLES Performing Organization Address City/[facility]/ZIP Co de Phone Number [address] [address], [place] [phone] * (ABNORMAL) GLUCOSE - POINT OF CARE (03/20/2024 5:08 AM VBA PROGRAMMER) Glucose WB/POC 132(H) 70 - 99 mg/dL 03/20/2024 8:14 AM VBA PROGRAMMER [facility] Specimen Type Cap Fingerstick 2023 8:14 AM VBA PROGRAMMER [facility] Blood BLOOD SPECIMEN / Unknown 03/20/2024 5:08 AM VBA PROGRAMMER 03/20/2024 8:14 AM VBA PROGRAMMER Lennie Anna MD LAB - POINT OF CARE ORDERABLES Performing Organization Address City/[facility]/ZIP Co de Phone Number [address] [address], [place] [phone] * (ABNORMAL) GLUCOSE - POINT OF CARE (03/20/2024 1:28 AM VBA PROGRAMMER) Glucose WB/POC 117(H) 70 - 99 mg/dL 03/20/2024 5:08 AM [facility] Specimen Type Cap Fingerstick 2023 5:08 AM VBA PROGRAMMER [facility] Blood BLOOD SPECIMEN / Unknown 03/20/2024 1:28 AM VBA PROGRAMMER 03/20/2024 5:08 AM VBA PROGRAMMER Lennie Anna MD LAB - POINT OF CARE ORDERABLES [address] [address], [place] [phone] * CALCIUM IONIZED WHOLE BLOOD (03/20/2024 12:29 AM VBA PROGRAMMER) Calcium Ionized 1.19 mmol/L 03/20/2024 1:37 AM VBA PROGRAMMER [facility] pH 7.39 7.35 - 7.45 pH 03/20/2024 1:37 AM [facility] Ionized Calcium pH Adjusted 1.19 1.19 - 1.34 mmol/L 03/20/2024 1:37 AM [facility] Blood BLOOD SPECIMEN / Unknown Venipuncture / Unknown 03/20/2024 12:29 AM VBA PROGRAMMER 03/20/2024 1:32 AM VBA PROGRAMMER Lennie Anna MD LAB - CHEMISTRY ORDERABLES [address] [address], [place] [phone] * MAGNESIUM BLOOD (03/20/2024 12:29 AM VBA PROGRAMMER) Magnesium 2.3 1.6 - 2.6 mg/dL 03/20/2024 2:13 AM [facility] Blood BLOOD SPECIMEN / Unknown Venipuncture / Unknown 03/20/2024 12:29 AM VBA PROGRAMMER 03/20/2024 1:44 AM VBA PROGRAMMER Lennie Anna MD LAB - CHEMISTRY ORDERABLES Performing Organization Address City/[facility]/ZIP Co de Phone Number [address] [address], [place] [phone] * PHOSPHORUS BLOOD (03/20/2024 12:29 AM VBA PROGRAMMER) Phosphorus 2.9 2.9 - 5.1 mg/dL 03/20/2024 2:13 AM VBA PROGRAMMER [facility] Blood BLOOD SPECIMEN / Unknown Venipuncture / Unknown 03/20/2024 12:29 AM VBA PROGRAMMER 03/20/2024 1:44 AM VBA PROGRAMMER Lennie Anna MD LAB - CHEMISTRY ORDERABLES [address] [address], [place] [phone] * (ABNORMAL) BASIC METABOLIC PANEL (CALCIUM TOTAL) (03/20/2024 12:29 AM [facility]) BUN 16 7 - 26 mg/dL 03/20/2024 2:13 AM [facility] Creatinine 0.65 0.56 - 0.96 mg/dL 03/20/2024 2:13 AM [facility] Sodium 138 136 - 145 mmol/L 03/20/2024 2:13 AM [facility] Potassium 4.7(H) 3.5 - 4.5 mmol/L 03/20/2024 2:13 AM [facility] Chloride 105 98 - 107 mmol/L 03/20/2024 2:13 AM [facility] CO2 26 22 - 29 mmol/L 03/20/2024 2:13 AM [facility] Glucose 128(H) 70 - 99 mg/dL 03/20/2024 2:13 AM [facility] Calcium 8.6 8.4 - 10.2 mg/dL 03/20/2024 2:13 AM [facility] Anion Gap 7 6 - 16 03/20/2024 2:13 AM [facility] BUN/Creatinine Ratio 25(H) 7 - 23 03/20/2024 2:13 AM [facility] Osmolality Calculated 289 275 - 295 mOsm/kg 03/20/2024 2:13 AM [facility] eGFR by CKD-EPI 85(L) >=90 mL/min/1.7 3 m2 03/20/2024 2:13 AM [facility] Blood BLOOD SPECIMEN / Unknown Venipuncture / Unknown 03/20/2024 12:29 AM [facility] 03/20/2024 1:44 AM [facility] Lennie Anna MD LAB - CHEMISTRY ORDERABLES [facility] [address] [place] [address], [facility] [phone] * (ABNORMAL) CBC W AUTO DIFFERENTIAL (03/20/2024 12:29 AM [facility]) WBC 9.9 4.0 - 10.7 x10E9/L 03/20/2024 2:02 AM [facility] RBC Count 3.49(L) 3.90 - 5.20 x10E12/L 03/20/2024 2:02 AM [facility] Hemoglobin 10.3(L) 11.9 - 15.8 g/dL 03/20/2024 2:02 AM [facility] Hematocrit 32.0(L) 34.8 - 46.1 % 03/20/2024 2:02 AM [facility] MCV 91.7 80.0 - 98.0 fL 03/20/2024 2:02 AM [facility] MCH 29.5 26.7 - 33.6 pg 03/20/2024 2:02 AM [facility] MCHC 32.2 31.7 - 36.3 g/dL 03/20/2024 2:02 AM [facility] RDW-CV 16.4(H) 11.3 - 14.8 % 03/20/2024 2:02 AM [facility] Platelet Count 295 150 - 420 x10E9/L 03/20/2024 2:02 AM [facility] MPV 11.0 7.8 - 11.4 fL 03/20/2024 2:02 AM [facility] Neutrophil % 77.4(H) 41.0 - 74.0 % 03/20/2024 2:02 AM [facility] Lymphocyte % 12.7(L) 17.0 - 47.0 % 03/20/2024 2:02 AM [facility] Monocyte % 6.7 3.0 - 11.0 % 03/20/2024 2:02 AM [facility] Eosinophil % 2.4 0.0 - 7.0 % 03/20/2024 2:02 AM [facility] Basophil % 0.2 0.0 - 1.6 % 03/20/2024 2:02 AM [facility] Immature Granulocytes % 0.6 0.0 - 1.0 % 03/20/2024 2:02 AM [facility] Neutrophil Absolute 7.66(H) 1.60 - 7.50 x10E9/L 03/20/2024 2:02 AM [facility] Lymphocyte Absolute 1.26 1.00 - 4.40 x10E9/L 03/20/2024 2:02 AM VBA PROGRAMMER [facility] Monocyte Absolute 0.66 0.15 - 1.00 x10E9/L 03/20/2024 2:02 AM [facility] Eosinophil Absolute 0.24 0.00 - 0.60 x10E9/L 03/20/2024 2:02 AM [facility] Basophil Absolute 0.02 0.00 - 0.13 x10E9/L 03/20/2024 2:02 AM [facility] Blood BLOOD SPECIMEN / Unknown Venipuncture / Unknown 03/20/2024 12:29 AM VBA PROGRAMMER 03/20/2024 1:44 AM VBA PROGRAMMER Lennie Anna MD LAB - HEMATOLOG Y ORDERABLES [address] [address], [place] [phone] * (ABNORMAL) GLUCOSE - POINT OF CARE (03/19/2024 6:51 PM VBA PROGRAMMER) Glucose WB/POC 147(H) 70 - 99 mg/dL 03/20/2024 12:28 AM [facility] Specimen Type Cap Fingerstick 2023 12:28 AM [facility] Blood BLOOD SPECIMEN / Unknown 03/19/2024 6:51 PM VBA PROGRAMMER 03/20/2024 12:28 AM VBA PROGRAMMER Lennie Anna MD LAB - POINT OF CARE ORDERABLES [address] [address], [place] [phone] * (ABNORMAL) GLUCOSE - POINT OF CARE (03/19/2024 6:16 PM VBA PROGRAMMER) Glucose WB/POC 62(L) 70 - 99 mg/dL 03/20/2024 12:28 AM [facility] Specimen Type Cap Fingerstick 2023 12:28 AM [facility] Blood BLOOD SPECIMEN / Unknown 03/19/2024 6:16 PM VBA PROGRAMMER 03/20/2024 12:28 AM VBA PROGRAMMER Lennie Anna MD LAB - POINT OF CARE ORDERABLES [address] [address], [place] [phone] * (ABNORMAL) GLUCOSE - POINT OF CARE (03/19/2024 1:09 PM VBA PROGRAMMER) Glucose WB/POC 120(H) 70 - 99 mg/dL 03/20/2024 12:28 AM VBA PROGRAMMER [facility] Specimen Type Arterial 03/20/2024 12:28 AM VBA PROGRAMMER [facility] Blood BLOOD SPECIMEN / Unknown 03/19/2024 1:09 PM VBA PROGRAMMER 03/20/2024 12:28 AM VBA PROGRAMMER Lennie Anna MD LAB - POINT OF CARE ORDERABLES [address] [address], [place] [phone] * (ABNORMAL) GLUCOSE - POINT OF CARE (03/19/2024 5:02 AM VBA PROGRAMMER) Glucose WB/POC 132(H) 70 - 99 mg/dL 03/19/2024 5:07 AM VBA PROGRAMMER [facility] Specimen Type Cap Fingerstick 2023 5:07 AM VBA PROGRAMMER [facility] Blood BLOOD SPECIMEN / Unknown 03/19/2024 5:02 AM VBA PROGRAMMER 03/19/2024 5:07 AM VBA PROGRAMMER Lennie Anna MD LAB - POINT OF CARE ORDERABLES [address] [address], [place] [phone] * XR Chest 1Vw Portable (03/19/2024 4:35 AM VBA PROGRAMMER) Anatomical Region Laterality Modality Chest Digital Radiogra phy 03/19/2024 9:57 PM VBA PROGRAMMER Impressions 03/19/2024 9:58 PM VBA PROGRAMMER IMPRESSION: *Stable endotracheal tube and partially imaged enteric tube. Normal cardiomediastinal silhouette. Atherosclerotic aorta. No focal consolidation, pleural effusion, or pneumothorax. > Interpreting Provider: Argenis Morales MD on 03/19/2024 9:58 PM Narrative 03/19/2024 9:58 PM VBA PROGRAMMER PROCEDURE: ??XR CHEST 1VW PORTABLE DATE/TIME OF [...] MD DIAGNOSTIC IMAG ING ORDERABLES * (ABNORMAL) GLUCOSE - POINT OF CARE (03/19/2024 12:00 AM VBA PROGRAMMER) Glucose WB/POC 118(H) 70 - 99 mg/dL 03/19/2024 12:05 AM VBA PROGRAMMER [facility] Specimen Type Arterial 03/19/2024 12:05 AM VBA PROGRAMMER [facility] Blood BLOOD SPECIMEN / Unknown 03/19/2024 12:00 AM VBA PROGRAMMER 03/19/2024 12:05 AM VBA PROGRAMMER Lennie Anna MD LAB - POINT OF CARE ORDERABLES [facility] [address] [place] [address], [place] [phone] * (ABNORMAL) CALCIUM IONIZED WHOLE BLOOD (03/18/2024 11:58 PM VBA PROGRAMMER) Calcium Ionized 1.22 mmol/L 03/19/2024 12:21 AM [facility] pH 7.47(H) 7.35 - 7.45 pH 03/19/2024 12:21 AM [facility] Ionized Calcium pH Adjusted 1.26 1.19 - 1.34 mmol/L 03/19/2024 12:21 AM [facility] Blood BLOOD SPECIMEN / Unknown Venipuncture / Unknown 03/18/2024 11:58 PM VBA PROGRAMMER 03/19/2024 12:13 AM VBA PROGRAMMER Lennie Anna MD LAB - CHEMISTRY ORDERABLES Performing Organization Address City/[facility]/ZIP Co de Phone Number [address] [address], [facility] [phone] * MAGNESIUM BLOOD (03/18/2024 11:58 PM VBA PROGRAMMER) Magnesium 2.2 1.6 - 2.6 mg/dL 03/19/2024 12:47 AM [facility] Blood BLOOD SPECIMEN / Unknown Venipuncture / Unknown 03/18/2024 11:58 PM VBA PROGRAMMER 03/19/2024 12:18 AM VBA PROGRAMMER Lennie Anna MD LAB - CHEMISTRY ORDERABLES [address] [address], [facility] [phone] * (ABNORMAL) PHOSPHORUS BLOOD (03/18/2024 11:58 PM VBA PROGRAMMER) Phosphorus 2.8(L) 2.9 - 5.1 mg/dL 03/19/2024 12:47 AM [facility] Blood BLOOD SPECIMEN / Unknown Venipuncture / Unknown 03/18/2024 11:58 PM VBA PROGRAMMER 03/19/2024 12:18 AM VBA PROGRAMMER Lennie Anna MD LAB - CHEMISTRY ORDERABLES [facility] [address] [place] [address], [facility] [phone] * (ABNORMAL) BASIC METABOLIC PANEL (CALCIUM TOTAL) (03/18/2024 11:58 PM VBA PROGRAMMER) BUN 23 7 - 26 mg/dL 03/19/2024 12:47 AM [facility] Creatinine 0.70 0.56 - 0.96 mg/dL 03/19/2024 12:47 AM [facility] Sodium 139 136 - 145 mmol/L 03/19/2024 12:47 AM [facility] Potassium 4.6(H) 3.5 - 4.5 mmol/L 03/19/2024 12:47 AM [facility] Chloride 110(H) 98 - 107 mmol/L 03/19/2024 12:47 AM [facility] CO2 24 22 - 29 mmol/L 03/19/2024 12:47 AM [facility] Glucose 137(H) 70 - 99 mg/dL 03/19/2024 12:47 AM [facility] Calcium 8.0(L) 8.4 - 10.2 mg/dL 03/19/2024 12:47 AM [facility] Anion Gap 5(L) 6 - 16 03/19/2024 12:47 AM [facility] BUN/Creatinine Ratio 33(H) 7 - 23 03/19/2024 12:47 AM [facility] Osmolality Calculated 294 275 - 295 mOsm/kg 03/19/2024 12:47 AM [facility] eGFR by CKD-EPI 84(L) >=90 mL/min/1.7 3 m2 03/19/2024 12:47 AM [facility] Blood BLOOD SPECIMEN / Unknown Venipuncture / Unknown 03/18/2024 11:58 PM VBA PROGRAMMER 03/19/2024 12:18 AM VBA PROGRAMMER Lennie Anna MD LAB - CHEMISTRY ORDERABLES [facility] [address] [place] [address] [phone] * (ABNORMAL) CBC W AUTO DIFFERENTIAL (03/18/2024 11:58 PM [facility]) [facility] WBC 7.5 4.0 - 10.7 x10E9/L 03/19/2024 12:29 AM [facility] RBC Count 2.62(L) 3.90 - 5.20 x10E12/L 03/19/2024 12:29 AM [facility] Hemoglobin 7.7(L) 11.9 - 15.8 g/dL 03/19/2024 12:29 AM [facility] Hematocrit 23.9(L) 34.8 - 46.1 % 03/19/2024 12:29 AM [facility] MCV 91.2 80.0 - 98.0 fL 03/19/2024 12:29 AM [facility] MCH 29.4 26.7 - 33.6 pg 03/19/2024 12:29 AM [facility] MCHC 32.2 31.7 - 36.3 g/dL 03/19/2024 12:29 AM [facility] RDW-CV 17.0(H) 11.3 - 14.8 % 03/19/2024 12:29 AM [facility] Platelet Count 173 150 - 420 x10E9/L 03/19/2024 12:29 AM [facility] MPV 11.2 7.8 - 11.4 fL 03/19/2024 12:29 AM [facility] Neutrophil % 67.7 41.0 - 74.0 % 03/19/2024 12:29 AM [facility] Lymphocyte % 20.4 17.0 - 47.0 % 03/19/2024 12:29 AM [facility] Monocyte % 8.0 3.0 - 11.0 % 03/19/2024 12:29 AM [facility] Eosinophil % 3.2 0.0 - 7.0 % 03/19/2024 12:29 AM [facility] Basophil % 0.3 0.0 - 1.6 % 03/19/2024 12:29 AM [facility] Immature Granulocytes % 0.4 0.0 - 1.0 % 03/19/2024 12:29 AM [facility] Neutrophil Absolute 5.08 1.60 - 7.50 x10E9/L 03/19/2024 12:29 AM [facility] Lymphocyte Absolute 1.53 1.00 - 4.40 x10E9/L 03/19/2024 12:29 AM [facility] Monocyte Absolute 0.60 0.15 - 1.00 x10E9/L 03/19/2024 12:29 AM [facility] Eosinophil Absolute 0.24 0.00 - 0.60 x10E9/L 03/19/2024 12:29 AM [facility] Basophil Absolute 0.02 0.00 - 0.13 x10E9/L 03/19/2024 12:29 AM [facility] Blood BLOOD SPECIMEN / Unknown Venipuncture / Unknown 03/18/2024 11:58 PM VBA PROGRAMMER 03/19/2024 12:18 AM VBA PROGRAMMER Lennie Anna MD LAB - HEMATOLOG Y ORDERABLES [address] [address], [place] [phone] * (ABNORMAL) GLUCOSE - POINT OF CARE (03/18/2024 6:39 PM VBA PROGRAMMER) Pathologist [facility] Glucose WB/POC 116(H) 70 - 99 mg/dL 03/18/2024 6:44 PM [facility] Specimen Type Cap Fingerstick 2023 6:44 PM [facility] Blood BLOOD SPECIMEN / Unknown 03/18/2024 6:39 PM VBA PROGRAMMER 03/18/2024 6:44 PM VBA PROGRAMMER Lenine Anna MD LAB - POINT OF CARE ORDERABLES [address] [address], [place] [phone] * (ABNORMAL) CBC W/O DIFFERENTIAL (03/18/2024 3:42 PM VBA PROGRAMMER) Pathologist [facility] WBC 8.9 4.0 - 10.7 x10E9/L 03/18/2024 4:11 PM [facility] RBC Count 2.86(L) 3.90 - 5.20 x10E12/L 03/18/2024 4:11 PM [facility] Hemoglobin 8.3(L) 11.9 - 15.8 g/dL 03/18/2024 4:11 PM [facility] Hematocrit 26.0(L) 34.8 - 46.1 % 03/18/2024 4:11 PM [facility] MCV 90.9 80.0 - 98.0 fL 03/18/2024 4:11 PM [facility] MCH 29.0 26.7 - 33.6 pg 03/18/2024 4:11 PM [facility] MCHC 31.9 31.7 - 36.3 g/dL 03/18/2024 4:11 PM [facility] RDW-CV 17.1(H) 11.3 - 14.8 % 03/18/2024 4:11 PM [facility] Platelet Count 172 150 - 420 x10E9/L 03/18/2024 4:11 PM [facility] MPV 11.4 7.8 - 11.4 fL 03/18/2024 4:11 PM [facility] Blood BLOOD SPECIMEN / Unknown Venipuncture / Unknown 03/18/2024 3:42 PM VBA PROGRAMMER 03/18/2024 3:52 PM VBA PROGRAMMER Lennie Anna MD LAB - HEMATOLOG Y ORDERABLES [facility] [address] [place] [phone], [facility] [phone] * (ABNORMAL) GLUCOSE - POINT OF CARE (03/18/2024 5:24 AM VBA PROGRAMMER) Pathologist [facility] Glucose WB/POC 118(H) 70 - 99 mg/dL 03/18/2024 5:25 AM [facility] Specimen Type Cap Fingerstick 2023 5:25 AM VBA PROGRAMMER [facility] Blood BLOOD SPECIMEN / Unknown 03/18/2024 5:24 AM VBA PROGRAMMER 03/18/2024 5:25 AM VBA PROGRAMMER Lennie Anna MD LAB - POINT OF CARE ORDERABLES [facility] [address] [place] [address], [facility] [phone] * XR Chest 1Vw Portable (03/18/2024 4:20 AM VBA PROGRAMMER) Anatomical Region Laterality Modality Chest Digital Radiogra phy 03/19/2024 9:12 AM VBA PROGRAMMER Narrative 03/19/2024 1:01 PM VBA PROGRAMMER PROCEDURE: ??XR CHEST 1VW PORTABLE, DATE/TIME OF EXAM: ??03/18/2024 4:39 AM, LOCATION ??[facility] INDICATION: Z97.8: Endotracheal tube present ADDITIONAL CLINICAL INFORMATION: Ordering Provider Reason For Exam: ??ET tube present COMPARISON: Chest radiograph dated 03/17/2024 FINDINGS/IMPRESSION: Endotracheal tube terminates in the midthoracic trachea. Enteric tube course into the stomach. There is no focal consolidation, pleural effusion, or pneumothorax. The cardiomediastinal silhouette is normal. > Dictated by Dada Moctezuma MD (senior resident care director). IArgenis MD have personally reviewed and interpreted this examination/study. > Interpreting Provider: Argenis Morales MD on 03/19/2024 1:01 PM Procedure Note Argenis Morales MD - 03/19/2024 PROCEDURE: XR CHEST 1VW PORTABLE, DATE/TIME OF EXAM: 03/18/2024 4:39AM, LOCATION [facility] INDICATION: Z97.8: Endotracheal tube present ADDITIONAL CLINICAL INFORMATION: Ordering Provider Reason For Exam: ET tube present COMPARISON: Chest radiograph dated 03/17/2024 FINDINGS/IMPRESSION: Endotracheal tube terminates in the midthoracic trachea. Enteric tube course into the stomach. There is no focal consolidation, pleural effusion, or pneumothorax. The cardiomediastinal silhouette is normal. > Dictated by Dada Moctezuma MD (senior resident care director). I, Argenis Morales MD have personally reviewed and interpreted this examination/study. > Interpreting Provider: Argenis Morales MD on 03/19/2024 1:01 PM Lennie Anna MD DIAGNOSTIC IMAG ING ORDERABLES * TRANSFUSE RED BLOOD CELL LEUKOREDUCED UNIT(S) (03/18/2024 3:24 AM VBA PROGRAMMER) Lennie Anna MD NURSING - BLOOD PROD TRANSFUSION * TRANSFUSE RED BLOOD CELL LEUKOREDUCED UNIT(S), 1 Units (03/18/2024 3:24 AM VBA PROGRAMMER) Lennie Anna MD NURSING - BLOOD PROD TRANSFUSION * PREPARE (CROSSMATCH) RBC UNIT(S), 1 Units (03/18/2024 1:34 AM VBA PROGRAMMER) Unit Description AS1 LR PRBC [facility] Unit ABO O [facility] Unit Rh NEG [facility] Product Number R44 [facility] B[facility] Unit Donor # [id number] [facility] Unit Status transfused [facility] Product Code [id number] [facility] Blood Type Barcode 9500 [facility] Expiration Date S BLOOD BANK LAB Blood Bank BLOOD SPECIMEN / Unknown 03/18/2024 12:43 AM VBA PROGRAMMER Lennie Anna MD LAB - BLOOD BAN K ORDERABLES [facility] [address] [place] [address], [facility] [phone] * TYPE + SCREEN PANEL (03/18/2024 12:35 AM VBA PROGRAMMER) Antibody Screen NEG 1:25 AM VBA PROGRAMMER [facility] ABO Rh O POS 03/18/2024 1:25 AM VBA PROGRAMMER [facility] Blood Bank BLOOD SPECIMEN / Unknown Venipuncture / Unknown 03/18/2024 12:35 AM VBA PROGRAMMER 03/18/2024 12:43 AM VBA PROGRAMMER Lennie Anna MD LAB - BLOOD BAN K ORDERABLES [facility] [address] [place] [address], [facility] [phone] * (ABNORMAL) CBC W/O DIFFERENTIAL (03/18/2024 12:35 AM VBA PROGRAMMER) WBC 7.7 4.0 - 10.7 x10E9/L 03/18/2024 12:46 AM [facility] RBC Count 2.21(L) 3.90 - 5.20 x10E12/L 03/18/2024 12:46 AM [facility] Hemoglobin 6.8(L) 11.9 - 15.8 g/dL 03/18/2024 12:46 AM [facility] Hematocrit 21.2(L) 34.8 - 46.1 % 03/18/2024 12:46 AM [facility] MCV 95.9 80.0 - 98.0 fL 03/18/2024 12:46 AM [facility] MCH 30.8 26.7 - 33.6 pg 03/18/2024 12:46 AM [facility] MCHC 32.1 31.7 - 36.3 g/dL 03/18/2024 12:46 AM [facility] RDW-CV 14.6 11.3 - 14.8 % 03/18/2024 12:46 AM [facility] Platelet Count 141(L) 150 - 420 x10E9/L 03/18/2024 12:46 AM [facility] MPV 11.8(H) 7.8 - 11.4 fL 03/18/2024 12:46 AM [facility] Blood BLOOD SPECIMEN / Unknown Venipuncture / Unknown 03/18/2024 12:35 AM VBA PROGRAMMER 03/18/2024 12:43 AM VBA PROGRAMMER Lennie Anna MD LAB - HEMATOLOG Y ORDERABLES [address] [address], [facility] [phone] * CALCIUM IONIZED WHOLE BLOOD (03/18/2024 12:01 AM VBA PROGRAMMER) Calcium Ionized 1.21 mmol/L 03/18/2024 12:10 AM VBA PROGRAMMER [facility] pH 7.42 7.35 - 7.45 pH 03/18/2024 12:10 AM [facility] Ionized Calcium pH Adjusted 1.22 1.19 - 1.34 mmol/L 03/18/2024 12:10 AM [facility] Blood BLOOD SPECIMEN / Unknown Venipuncture / Unknown 03/18/2024 12:01 AM VBA PROGRAMMER 03/18/2024 12:06 AM VBA PROGRAMMER Lennie Anna MD LAB - CHEMISTRY ORDERABLES [address] [address], [facility] [phone] * MAGNESIUM BLOOD (03/18/2024 12:01 AM VBA PROGRAMMER) Magnesium 2.2 1.6 - 2.6 mg/dL 03/18/2024 12:35 AM [facility] Blood BLOOD SPECIMEN / Unknown Venipuncture / Unknown 03/18/2024 12:01 AM VBA PROGRAMMER 03/18/2024 12:08 AM VBA PROGRAMMER Lennie Anna MD LAB - CHEMISTRY ORDERABLES [address] [address], [facility] [phone] * (ABNORMAL) PHOSPHORUS BLOOD (03/18/2024 12:01 AM VBA PROGRAMMER) Phosphorus 2.7(L) 2.9 - 5.1 mg/dL 03/18/2024 12:35 AM [facility] Blood BLOOD SPECIMEN / Unknown Venipuncture / Unknown 03/18/2024 12:01 AM VBA PROGRAMMER 03/18/2024 12:08 AM VBA PROGRAMMER Lennie Anna MD LAB - CHEMISTRY ORDERABLES [facility] [address] [place] [address] [phone] * (ABNORMAL) BASIC METABOLIC PANEL (CALCIUM TOTAL) (03/18/2024 12:01 AM VBA PROGRAMMER) BUN 23 7 - 26 mg/dL 03/18/2024 12:35 AM [facility] Creatinine 0.79 0.56 - 0.96 mg/dL 03/18/2024 12:35 AM [facility] Sodium 138 136 - 145 mmol/L 03/18/2024 12:35 AM [facility] Potassium 4.4 3.5 - 4.5 mmol/L 03/18/2024 12:35 AM [facility] Chloride 111(H) 98 - 107 mmol/L 03/18/2024 12:35 AM [facility] CO2 24 22 - 29 mmol/L 03/18/2024 12:35 AM [facility] Glucose 127(H) 70 - 99 mg/dL 03/18/2024 12:35 AM [facility] Calcium 8.1(L) 8.4 - 10.2 mg/dL 03/18/2024 12:35 AM [facility] Anion Gap 3(L) 6 - 16 03/18/2024 12:35 AM [facility] BUN/Creatinine Ratio 29(H) 7 - 23 03/18/2024 12:35 AM [facility] Osmolality Calculated 291 275 - 295 mOsm/kg 03/18/2024 12:35 AM [facility] eGFR by CKD-EPI 72(L) >=90 mL/min/1.7 3 m2 03/18/2024 12:35 AM [facility] Blood BLOOD SPECIMEN / Unknown Venipuncture / Unknown 03/18/2024 12:01 AM VBA PROGRAMMER 03/18/2024 12:08 AM VBA PROGRAMMER Lennie Anna MD LAB - CHEMISTRY ORDERABLES [facility] [address] [place] [address], [facility] [phone] * (ABNORMAL) CBC W AUTO DIFFERENTIAL (03/18/2024 12:01 AM [facility]) WBC 6.9 4.0 - 10.7 x10E9/L 03/18/2024 12:19 AM [facility] RBC Count 2.22(L) 3.90 - 5.20 x10E12/L 03/18/2024 12:19 AM [facility] Hemoglobin 6.7(L) 11.9 - 15.8 g/dL 03/18/2024 12:19 AM [facility] Hematocrit 20.9(L) 34.8 - 46.1 % 03/18/2024 12:19 AM [facility] MCV 94.1 80.0 - 98.0 fL 03/18/2024 12:19 AM [facility] MCH 30.2 26.7 - 33.6 pg 03/18/2024 12:19 AM [facility] MCHC 32.1 31.7 - 36.3 g/dL 03/18/2024 12:19 AM [facility] RDW-CV 14.6 11.3 - 14.8 % 03/18/2024 12:19 AM [facility] Platelet Count 141(L) 150 - 420 x10E9/L 03/18/2024 12:19 AM [facility] MPV 11.7(H) 7.8 - 11.4 fL 03/18/2024 12:19 AM [facility] Neutrophil % 67.1 41.0 - 74.0 % 03/18/2024 12:19 AM [facility] Lymphocyte % 20.4 17.0 - 47.0 % 03/18/2024 12:19 AM [facility] Monocyte % 8.9 3.0 - 11.0 % 03/18/2024 12:19 AM [facility] Eosinophil % 2.9 0.0 - 7.0 % 03/18/2024 12:19 AM [facility] Basophil % 0.3 0.0 - 1.6 % 03/18/2024 12:19 AM [facility] Immature Granulocytes % 0.4 0.0 - 1.0 % 03/18/2024 12:19 AM [facility] Neutrophil Absolute 4.61 1.60 - 7.50 x10E9/L 03/18/2024 12:19 AM [facility] Lymphocyte Absolute 1.40 1.00 - 4.40 x10E9/L 03/18/2024 12:19 AM [facility] Monocyte Absolute 0.61 0.15 - 1.00 x10E9/L 03/18/2024 12:19 AM [facility] Eosinophil Absolute 0.20 0.00 - 0.60 x10E9/L 03/18/2024 12:19 AM [facility] Basophil Absolute 0.02 0.00 - 0.13 x10E9/L 03/18/2024 12:19 AM [facility] Blood BLOOD SPECIMEN / Unknown Venipuncture / Unknown 03/18/2024 12:01 AM VBA PROGRAMMER 03/18/2024 12:08 AM VBA PROGRAMMER Lennie Anna MD LAB - HEMATOLOG Y ORDERABLES [address] [address], [place] [phone] * (ABNORMAL) GLUCOSE - POINT OF CARE (03/17/2024 5:07 PM VBA PROGRAMMER) [facility] Glucose WB/POC 128(H) 70 - 99 mg/dL 03/17/2024 5:11 PM [facility] Specimen Type Cap Fingerstick 2023 5:11 PM [facility] Blood BLOOD SPECIMEN / Unknown 03/17/2024 5:07 PM VBA PROGRAMMER 03/17/2024 5:11 PM VBA PROGRAMMER Lennie Anna MD LAB - POINT OF CARE ORDERABLES [address] [address], [place] [phone] * (ABNORMAL) GLUCOSE - POINT OF CARE (03/17/2024 12:07 PM VBA PROGRAMMER) Glucose WB/POC 121(H) 70 - 99 mg/dL 03/17/2024 12:12 PM VBA PROGRAMMER [facility] Specimen Type Cap Fingerstick 2023 12:12 PM VBA PROGRAMMER [facility] Blood BLOOD SPECIMEN / Unknown 03/17/2024 12:07 PM VBA PROGRAMMER 03/17/2024 12:12 PM VBA PROGRAMMER Lennie Anna MD LAB - POINT OF CARE ORDERABLES [address] [address], [facility] [phone] * ECHO COMPLETE W CONTRAST (03/17/2024 11:33 AM VBA PROGRAMMER) IVSd 2D 1.027 cm SSM CV FUJ I PACS LVIDd 3.762 cm SSM CV FUJ I PACS LVIDs 2.463 cm SSM CV FUJ I PACS LVOT diam 1.878 cm SSM CV FUJ I PACS LVPWd 0.831 cm SSM CV FUJ I PACS LVOT pk ruby 73.062 cm/s SSM CV F UJI PACS LVOT VTI 16.201 cm SSM CV FUJ I PACS LA size 3.358 cm SSM CV FUJ I PACS AV mn grad 2.197 mmHg SSM CV FU JI PACS AV pk ruby 106.496 cm/s SSM CV FUJ I PACS AV VTI 18.337 cm SSM CV FUJ I PACS MV A pk ruby 53.647 cm/s SSM CV F UJI PACS MV E pk ruby 46.036 cm/s SSM CV F UJI PACS MV E' lateral ruby 6.533 cm/s SSM CV FUJI PACS MV mn grad 0.937 mmHg SSM CV FU JI PACS MV VTI 16.341 cm SSM CV FUJ I PACS PV pk ruby 84.906 cm/s SSM CV FUJ I PACS PV VTI 15.876 cm SSM CV FUJ I PACS IVC Diam Expiration 2.002 cm SSM CV FUJI PACS Myocardial strain charge 2 unitless [facility] CV Sense Platform PACS Anatomical Region Laterality Modality Ultrasound 03/17/2024 10:3 7 AM VBA PROGRAMMER Narrative 03/17/2024 2:48 PM VBA PROGRAMMER Summary ??* The left ventricle is normal [...] 1935 Gender: ? Female Accession #: ? [id number] Ht: ? 67 in Wt: ? 183 lb BSA: ? 2.00 m2 Exam Date: ? 03/17/2024 10:37 AM Patient Status: ? I/P Study Site: ? [facility] Primary Location: ? [facility] [...] Lennie Anna Attending Physician: ? Lennie Anna Pan Tank Worker: ? Ernesto Leigh Left Ventricle ??The left [...] 2.45 cm2 ?>=2.00 AV Area (Cont Eq Ruby) ? 1.90 cm2 ? AV DI (VTI) ? 0.88 ? AV DI (Ruby) ? 0.69 ? AV Regurgitation 2D LVOT [...] ?35 % ? 27-45 LV EF (2D Teichcharmainez) ? 64 % ? 54-74 Atria Name ? Value ?Normal LA Dimensions LA Dimension (2D) ? 3.4 cm ? 2.7-3.8 LA Dimen Index (2D) ?1.7 cm/m2 Report Signatures Finalized by Jose David Alfaro on 03/17/2024 02:48 PM Procedure Note Jose David Alfaro MD - 03/17/2024 Summary * The [...] of tamponade physiology. Patient Info Name: Emerald Vlilafana Age: 88 years : 1935 Gender: Female Ht: 67 in Wt: 183 lb BSA: 2.00 m2 Exam Date: 03/17/2024 10:37 AM Patient Status: I/P Study Site: [facility] Primary Location: [facility] EStudy [...] Provider: Lennie Anna Attending Physician: Lennie Anna Pan Tank Worker: Ernesto Leigh Left Ventricle The left ventricle [...] 2.45 cm2 >=2.00 AV Area (Cont Eq Ruby) 1.90 cm2 AV DI (VTI) 0.88 AV DI (Ruby) 0.69 AV Regurgitation 2D LVOT Area 2.77 [...] (2D) 1.7 cm/m2 Report Signatures Finalized by Jose David Alfaro on 03/17/2024 02:48 PM Lennie Anna MD ECHO CUPID * (ABNORMAL) GLUCOSE - POINT OF CARE (03/17/2024 6:17 AM VBA PROGRAMMER) Glucose WB/POC 128(H) 70 - 99 mg/dL 03/17/2024 12:12 PM VBA PROGRAMMER [facility] Specimen Type Cap Fingerstick 2023 12:12 PM VBA PROGRAMMER [facility] Blood BLOOD SPECIMEN / Unknown 03/17/2024 6:17 AM VBA PROGRAMMER 03/17/2024 12:12 PM VBA PROGRAMMER Lennie Anna MD LAB - POINT OF CARE ORDERABLES [facility] [address] [place] [phone], [facility] [phone] * XR Chest 1Vw Portable (03/17/2024 4:36 AM VBA PROGRAMMER) Anatomical Region Laterality Modality Chest Digital Radiogra phy 03/17/2024 2:22 PM VBA PROGRAMMER Narrative 03/17/2024 2:52 PM VBA PROGRAMMER PROCEDURE: ??XR CHEST 1VW PORTABLE, DATE/TIME OF EXAM: ??03/17/2024 4:49 AM, LOCATION ??[facility] INDICATION: Z97.8: Endotracheal tube present ADDITIONAL CLINICAL INFORMATION: Ordering Provider Reason For Exam: ??ET tube present COMPARISON: Chest radiograph 03/16/2024 FINDINGS/IMPRESSION: Lines, tubes, hardware: * An endotracheal tube seen with the tip appropriately positioned in the mid thoracic trachea. * Enteric tube is seen with its tip below the diaphragm in the gastric fundus. There is no focal consolidation, pleural effusion, or pneumothorax. The cardiomediastinal silhouette is normal. Atherosclerotic calcification of the aorta is seen. > Dictated by Viktor WELDON, CR ??(senior resident care director). I, Gayle Zhang MD have personally reviewed and interpreted this examination/study. > Interpreting Provider: Gayle Zhang MD on 03/17/2024 2:52 PM Procedure Note Gayle Zhang MD - 03/17/2024 PROCEDURE: XR CHEST 1VW PORTABLE, DATE/TIME OF EXAM: 03/17/2024 4:49AM, LOCATION [facility] INDICATION: Z97.8: Endotracheal tube present ADDITIONAL CLINICAL INFORMATION: Ordering Provider Reason For Exam: ET tube present COMPARISON: Chest radiograph 03/16/2024 FINDINGS/IMPRESSION: Lines, tubes, hardware: * An endotracheal tube seen with the tip appropriately positioned in the mid thoracic trachea. * Enteric tube is seen with its tip below the diaphragm in the gastric fundus. There is no focal consolidation, pleural effusion, or pneumothorax. The cardiomediastinal silhouette is normal. Atherosclerotic calcification of the aorta is seen. > Dictated by Viktor WELDON, [facility] (senior resident care director). IGayle MD have personally reviewed and interpreted this examination/study. > Interpreting Provider: Gayle Zhang MD on 03/17/2024 2:52 PM Lennie Anna MD DIAGNOSTIC IMAG ING ORDERABLES * (ABNORMAL) GLUCOSE - POINT OF CARE (03/17/2024 12:50 AM VBA PROGRAMMER) Glucose WB/POC 143(H) 70 - 99 mg/dL 03/17/2024 12:51 AM VBA PROGRAMMER [facility] Specimen Type Arterial 03/17/2024 12:51 AM VBA PROGRAMMER [facility] Blood BLOOD SPECIMEN / Unknown 03/17/2024 12:50 AM VBA PROGRAMMER 03/17/2024 12:51 AM VBA PROGRAMMER Lennie Anna MD LAB - POINT OF CARE ORDERABLES [address] [address], [facility] [phone] * CALCIUM IONIZED WHOLE BLOOD (03/17/2024 12:50 AM VBA PROGRAMMER) Calcium Ionized 1.21 mmol/L 03/17/2024 12:58 AM VBA PROGRAMMER [facility] pH 7.40 7.35 - 7.45 pH 03/17/2024 12:58 AM VBA PROGRAMMER [facility] Ionized Calcium pH Adjusted 1.21 1.19 - 1.34 mmol/L 03/17/2024 12:58 AM [facility] Blood BLOOD SPECIMEN / Unknown Venipuncture / Unknown 03/17/2024 12:50 AM VBA PROGRAMMER 03/17/2024 12:55 AM VBA PROGRAMMER Lennie Anna MD LAB - CHEMISTRY ORDERABLES [facility] [address] [place] [id number], [place] [phone] * MAGNESIUM BLOOD (03/17/2024 12:50 AM VBA PROGRAMMER) Magnesium 2.1 1.6 - 2.6 mg/dL 03/17/2024 1:22 AM [facility] Blood BLOOD SPECIMEN / Unknown Venipuncture / Unknown 03/17/2024 12:50 AM VBA PROGRAMMER 03/17/2024 12:55 AM VBA PROGRAMMER Lennie Anna MD LAB - CHEMISTRY ORDERABLES Performing Organization Address City/[facility]/ZIP Co de Phone Number [address] [address], [place] [phone] * PHOSPHORUS BLOOD (03/17/2024 12:50 AM VBA PROGRAMMER) Phosphorus 3.0 2.9 - 5.1 mg/dL 03/17/2024 1:22 AM VBA PROGRAMMER [facility] Blood BLOOD SPECIMEN / Unknown Venipuncture / Unknown 03/17/2024 12:50 AM VBA PROGRAMMER 03/17/2024 12:55 AM VBA PROGRAMMER Lennie Anna MD LAB - CHEMISTRY ORDERABLES [address] [address], [place] [phone] * (ABNORMAL) BASIC METABOLIC PANEL (CALCIUM TOTAL) (03/17/2024 12:50 AM VBA PROGRAMMER) BUN 22 7 - 26 mg/dL 03/17/2024 1:22 AM [facility] Creatinine 0.82 0.56 - 0.96 mg/dL 03/17/2024 1:22 AM [facility] Sodium 136 136 - 145 mmol/L 03/17/2024 1:22 AM [facility] Potassium 4.3 3.5 - 4.5 mmol/L 03/17/2024 1:22 AM [facility] Chloride 110(H) 98 - 107 mmol/L 03/17/2024 1:22 AM [facility] CO2 23 22 - 29 mmol/L 03/17/2024 1:22 AM [facility] Glucose 140(H) 70 - 99 mg/dL 03/17/2024 1:22 AM [facility] Calcium 7.8(L) 8.4 - 10.2 mg/dL 03/17/2024 1:22 AM [facility] Anion Gap 3(L) 6 - 16 03/17/2024 1:22 AM [facility] BUN/Creatinine Ratio 27(H) 7 - 23 03/17/2024 1:22 AM [facility] Osmolality Calculated 288 275 - 295 mOsm/kg 03/17/2024 1:22 AM [facility] eGFR by CKD-EPI 69(L) >=90 mL/min/1.7 3 m2 03/17/2024 1:22 AM [facility] Blood BLOOD SPECIMEN / Unknown Venipuncture / Unknown 03/17/2024 12:50 AM VBA PROGRAMMER 03/17/2024 12:55 AM [facility] Lennie Anna MD LAB - CHEMISTRY ORDERABLES [address] [address], [facility] [phone] * (ABNORMAL) CBC W AUTO DIFFERENTIAL (03/17/2024 12:50 AM [facility]) Pathologist [facility] WBC 10.7 4.0 - 10.7 x10E9/L 03/17/2024 1:16 AM [facility] RBC Count 2.44(L) 3.90 - 5.20 x10E12/L 03/17/2024 1:16 AM [facility] Hemoglobin 7.5(L) 11.9 - 15.8 g/dL 03/17/2024 1:16 AM [facility] Hematocrit 22.6(L) 34.8 - 46.1 % 03/17/2024 1:16 AM [facility] MCV 92.6 80.0 - 98.0 fL 03/17/2024 1:16 AM [facility] MCH 30.7 26.7 - 33.6 pg 03/17/2024 1:16 AM [facility] MCHC 33.2 31.7 - 36.3 g/dL 03/17/2024 1:16 AM [facility] RDW-CV 14.4 11.3 - 14.8 % 03/17/2024 1:16 AM [facility] Platelet Count 125(L) 150 - 420 x10E9/L 03/17/2024 1:16 AM [facility] [facility] MPV 11.7(H) 7.8 - 11.4 fL 03/17/2024 1:16 AM [facility] Neutrophil % 78.8(H) 41.0 - 74.0 % 03/17/2024 1:16 AM [facility] Lymphocyte % 11.9(L) 17.0 - 47.0 % 03/17/2024 1:16 AM [facility] Monocyte % 7.1 3.0 - 11.0 % 03/17/2024 1:16 AM [facility] Eosinophil % 1.5 0.0 - 7.0 % 03/17/2024 1:16 AM [facility] Basophil % 0.2 0.0 - 1.6 % 03/17/2024 1:16 AM [facility] Immature Granulocytes % 0.5 0.0 - 1.0 % 03/17/2024 1:16 AM [facility] Neutrophil Absolute 8.45(H) 1.60 - 7.50 x10E9/L 03/17/2024 1:16 AM [facility] Lymphocyte Absolute 1.27 1.00 - 4.40 x10E9/L 03/17/2024 1:16 AM VBA PROGRAMMER [facility] Monocyte Absolute 0.76 0.15 - 1.00 x10E9/L 03/17/2024 1:16 AM VBA PROGRAMMER [facility] Eosinophil Absolute 0.16 0.00 - 0.60 x10E9/L 03/17/2024 1:16 AM VBA PROGRAMMER [facility] Basophil Absolute 0.02 0.00 - 0.13 x10E9/L 03/17/2024 1:16 AM [facility] Blood BLOOD SPECIMEN / Unknown Venipuncture / Unknown 03/17/2024 12:50 AM VBA PROGRAMMER 03/17/2024 12:57 AM VBA PROGRAMMER Lennie Anna MD LAB - HEMATOLOG Y ORDERABLES [address] [address], [place] [phone] * (ABNORMAL) GLUCOSE - POINT OF CARE (03/16/2024 4:44 PM VBA PROGRAMMER) Glucose WB/POC 130(H) 70 - 99 mg/dL 03/16/2024 10:16 PM VBA PROGRAMMER [facility] Specimen Type Cap Fingerstick 2023 10:16 PM [facility] Blood BLOOD SPECIMEN / Unknown 03/16/2024 4:44 PM VBA PROGRAMMER 03/16/2024 10:16 PM VBA PROGRAMMER Lennie Anna MD LAB - POINT OF CARE ORDERABLES [address] [address], [place] [phone] * (ABNORMAL) GLUCOSE - POINT OF CARE (03/16/2024 11:08 AM VBA PROGRAMMER) Glucose WB/POC 141(H) 70 - 99 mg/dL 03/16/2024 4:34 PM VBA PROGRAMMER [facility] Specimen Type Cap Fingerstick 2023 4:34 PM VBA PROGRAMMER [facility] Blood BLOOD SPECIMEN / Unknown 03/16/2024 11:08 AM VBA PROGRAMMER 03/16/2024 4:34 PM VBA PROGRAMMER Lennie Anna MD LAB - POINT OF CARE ORDERABLES Performing Organization Address City/[facility]/ZIP Co de Phone Number [address] [address], [place] [phone] * (ABNORMAL) GLUCOSE - POINT OF CARE (03/16/2024 11:07 AM VBA PROGRAMMER) Glucose WB/POC 35(LL) 70 - 99 mg/dL 03/16/2024 4:34 PM VBA PROGRAMMER [facility] Specimen Type Cap Fingerstick 2023 4:34 PM VBA PROGRAMMER [facility] Blood BLOOD SPECIMEN / Unknown 03/16/2024 11:07 AM VBA PROGRAMMER 03/16/2024 4:34 PM VBA PROGRAMMER Lennie Anna MD LAB - POINT OF CARE ORDERABLES Performing Organization Address City/[facility]/ZIP Co de Phone Number [address] [address], [place] [phone] * (ABNORMAL) GLUCOSE - POINT OF CARE (03/16/2024 5:32 AM VBA PROGRAMMER) Glucose WB/POC 186(H) 70 - 99 mg/dL 03/16/2024 5:33 AM VBA PROGRAMMER [facility] Specimen Type Cap Fingerstick 2023 5:33 AM VBA PROGRAMMER [facility] Blood BLOOD SPECIMEN / Unknown 03/16/2024 5:32 AM VBA PROGRAMMER 03/16/2024 5:33 AM VBA PROGRAMMER Lennie Anna MD LAB - POINT OF CARE ORDERABLES [address] [address], [place] [phone] * XR Chest 1Vw Portable (03/16/2024 3:46 AM VBA PROGRAMMER) Anatomical Region Laterality Modality Chest Digital Radiogra phy 03/17/2024 8:59 AM VBA PROGRAMMER Narrative 03/17/2024 11:04 AM VBA PROGRAMMER PROCEDURE: ??XR CHEST 1VW PORTABLE, DATE/TIME OF EXAM: ??03/16/2024 3:46 AM, LOCATION ??[facility] INDICATION: Z97.8: Endotracheal tube present ADDITIONAL CLINICAL INFORMATION: Ordering Provider Reason For Exam: ??ET tube present COMPARISON: Chest radiograph 03/15/2024 FINDINGS/IMPRESSION: Lines, tubes, hardware: * An endotracheal tube seen with the tip appropriately positioned in the mid thoracic trachea. * Enteric tube is seen with its tip below the diaphragm out of the field of view. *A cervical collar is present. Right lung base granuloma. There is no focal consolidation, pleural effusion, or pneumothorax. The cardiac silhouette is normal. There is atherosclerotic calcification of the aorta. > Dictated by KWAME Willson ??(senior resident care director). Gayle Guzmán MD have personally reviewed and interpreted this examination/study. > Interpreting Provider: Gayle Zhang MD on 03/17/2024 11:04 AM Procedure Note Gayle Zhang MD - 03/17/2024 PROCEDURE: XR CHEST 1VW PORTABLE, DATE/TIME OF EXAM: 03/16/2024 3:46AM, LOCATION [facility] INDICATION: Z97.8: Endotracheal tube present ADDITIONAL CLINICAL INFORMATION: Ordering Provider Reason For Exam: ET tube present COMPARISON: Chest radiograph 03/15/2024 FINDINGS/IMPRESSION: Lines, tubes, hardware: * An endotracheal tube seen with the tip appropriately positioned in the mid thoracic trachea. * Enteric tube is seen with its tip below the diaphragm out of the fieldof view. *A cervical collar is present. Right lung base granuloma. There is no focal consolidation, pleural effusion, or pneumothorax. The cardiac silhouette is normal. There is atherosclerotic calcification of the aorta. > Dictated by KWAME Willson (senior resident care director). Gayle Guzmán MD have personally reviewed and interpreted this examination/study. > Interpreting Provider: Gayle Zhang MD on 03/17/2024 11:04 AM Lennie Anna MD DIAGNOSTIC IMAG ING ORDERABLES * (ABNORMAL) BLOOD GASES ART + COOX PANEL (03/16/2024 1:37 AM [facility]) pH Arterial 7.41 7.35 - 7.45 pH [...] Arterial Puncture / Unknown 03/16/2024 1:37 AM VBA PROGRAMMER 03/16/2024 1:40 AM [facility] - 03/16/2024 1:44 AM [facility] Carboxyhemoglobin Normal Concentration: Non-smokers: 0-2%; Smokers: 0-9%; Toxic: >20% Lennie Anna MD LAB - BLOOD GAS ES ORDERABLES Performing Organization Address City/[facility]/ZIP Co de Phone Number [address] [address], [facility] [phone] * CALCIUM IONIZED WHOLE BLOOD (03/16/2024 1:37 AM VBA PROGRAMMER) Calcium Ionized 1.23 mmol/L 03/16/2024 1:45 AM VBA PROGRAMMER [facility] pH 7.42 7.35 - 7.45 pH 03/16/2024 1:45 AM VBA PROGRAMMER [facility] Ionized Calcium pH Adjusted 1.24 1.19 - 1.34 mmol/L 03/16/2024 1:45 AM VBA PROGRAMMER [facility] Blood BLOOD SPECIMEN / Unknown Venipuncture / Unknown 03/16/2024 1:37 AM VBA PROGRAMMER 03/16/2024 1:40 AM VBA PROGRAMMER Lennie Anna MD LAB - CHEMISTRY ORDERABLES Performing Organization Address [facility]/ZIP Co de Phone Number [address] [address], [facility] [phone] * MAGNESIUM BLOOD (03/16/2024 1:37 AM VBA PROGRAMMER) Magnesium 2.1 1.6 - 2.6 mg/dL 03/16/2024 2:07 AM VBA PROGRAMMER [facility] Blood BLOOD SPECIMEN / Unknown Venipuncture / Unknown 03/16/2024 1:37 AM VBA PROGRAMMER 03/16/2024 1:40 AM VBA PROGRAMMER Lennie Anna MD LAB - CHEMISTRY ORDERABLES [address] [address], [facility] [phone] * (ABNORMAL) PHOSPHORUS BLOOD (03/16/2024 1:37 AM VBA PROGRAMMER) Phosphorus 2.5(L) 2.9 - 5.1 mg/dL 03/16/2024 2:07 AM VBA PROGRAMMER [facility] Blood BLOOD SPECIMEN / Unknown Venipuncture / Unknown 03/16/2024 1:37 AM VBA PROGRAMMER 03/16/2024 1:40 AM VBA PROGRAMMER Lennie Anna MD LAB - CHEMISTRY ORDERABLES [facility] [address] [place] [address], [facility] [phone] * (ABNORMAL) BASIC METABOLIC PANEL (CALCIUM TOTAL) (03/16/2024 1:37 AM VBA PROGRAMMER) BUN 26 7 - 26 mg/dL 03/16/2024 2:07 AM [facility] Creatinine 0.99(H) 0.56 - 0.96 mg/dL 03/16/2024 2:07 AM [facility] Sodium 134(L) 136 - 145 mmol/L 03/16/2024 2:07 AM [facility] Potassium 3.6 3.5 - 4.5 mmol/L 03/16/2024 2:07 AM [facility] Chloride 108(H) 98 - 107 mmol/L 03/16/2024 2:07 AM [facility] CO2 22 22 - 29 mmol/L 03/16/2024 2:07 AM [facility] Glucose 172(H) 70 - 99 mg/dL 03/16/2024 2:07 AM [facility] Calcium 8.0(L) 8.4 - 10.2 mg/dL 03/16/2024 2:07 AM [facility] Anion Gap 4(L) 6 - 16 03/16/2024 2:07 AM [facility] BUN/Creatinine Ratio 26(H) 7 - 23 03/16/2024 2:07 AM [facility] Osmolality Calculated 287 275 - 295 mOsm/kg 03/16/2024 2:07 AM [facility] eGFR by CKD-EPI 55(L) >=90 mL/min/1.7 3 m2 03/16/2024 2:07 AM [facility] Blood BLOOD SPECIMEN / Unknown Venipuncture / Unknown 03/16/2024 1:37 AM VBA PROGRAMMER 03/16/2024 1:40 AM VBA PROGRAMMER Lennie Anna MD LAB - CHEMISTRY ORDERABLES [facility] [address] [place] [address] [phone] * (ABNORMAL) CBC W AUTO DIFFERENTIAL (03/16/2024 1:37 AM VBA PROGRAMMER) WBC 14.8(H) 4.0 - 10.7 x10E9/L 03/16/2024 1:50 AM [facility] RBC Count 2.57(L) 3.90 - 5.20 x10E12/L 03/16/2024 1:50 AM [facility] Hemoglobin 7.7(L) 11.9 - 15.8 g/dL 03/16/2024 1:50 AM [facility] Hematocrit 23.5(L) 34.8 - 46.1 % 03/16/2024 1:50 AM [facility] MCV 91.4 80.0 - 98.0 fL 03/16/2024 1:50 AM [facility] MCH 30.0 26.7 - 33.6 pg 03/16/2024 1:50 AM [facility] MCHC 32.8 31.7 - 36.3 g/dL 03/16/2024 1:50 AM [facility] RDW-CV 14.2 11.3 - 14.8 % 03/16/2024 1:50 AM [facility] Platelet Count 151 150 - 420 x10E9/L 03/16/2024 1:50 AM [facility] MPV 11.5(H) 7.8 - 11.4 fL 03/16/2024 1:50 AM [facility] Neutrophil % 79.0(H) 41.0 - 74.0 % 03/16/2024 1:50 AM [facility] Lymphocyte % 11.5(L) 17.0 - 47.0 % 03/16/2024 1:50 AM [facility] Monocyte % 7.1 3.0 - 11.0 % 03/16/2024 1:50 AM [facility] Eosinophil % 1.7 0.0 - 7.0 % 03/16/2024 1:50 AM [facility] Basophil % 0.2 0.0 - 1.6 % 03/16/2024 1:50 AM [facility] Immature Granulocytes % 0.5 0.0 - 1.0 % 03/16/2024 1:50 AM [facility] Neutrophil Absolute 11.71(H) 1.60 - 7.50 x10E9/L 03/16/2024 1:50 AM [facility] Lymphocyte Absolute 1.70 1.00 - 4.40 x10E9/L 03/16/2024 1:50 AM [facility] Monocyte Absolute 1.06(H) 0.15 - 1.00 x10E9/L 03/16/2024 1:50 AM [facility] Eosinophil Absolute 0.25 0.00 - 0.60 x10E9/L 03/16/2024 1:50 AM [facility] Basophil Absolute 0.03 0.00 - 0.13 x10E9/L 03/16/2024 1:50 AM [facility] Blood BLOOD SPECIMEN / Unknown Venipuncture / Unknown 03/16/2024 1:37 AM VBA PROGRAMMER 03/16/2024 1:44 AM VBA PROGRAMMER Lennie Anna MD LAB - HEMATOLOG Y ORDERABLES Performing Organization Address [facility]/State/[facility] Co de Phone Number [facility] [address] [place] [phone] [phone] * (ABNORMAL) GLUCOSE - POINT OF CARE (03/16/2024 1:35 AM VBA PROGRAMMER) Glucose WB/POC 158(H) 70 - 99 mg/dL 03/16/2024 1:38 AM [facility] Specimen Type Arterial 03/16/2024 1:38 AM [facility] Blood BLOOD SPECIMEN / Unknown 03/16/2024 1:35 AM VBA PROGRAMMER 03/16/2024 1:38 AM VBA PROGRAMMER Lennie Anna MD LAB - POINT OF CARE ORDERABLES [address] [address], [facility] [phone] * (ABNORMAL) TROPONIN-I HIGH SENSITIVE REFLEX 1HOUR (03/15/2024 9:07 PM VBA PROGRAMMER) Pathologist [facility] Troponin I High Sensitive 19(H) <=14 ng/L 03/15/2024 9:51 PM VBA PROGRAMMER [facility] Delta Troponin I HS 03/15/2024 9:51 PM VBA PROGRAMMER [facility] Comment:Delta value intentio nuno not calculated. Baseline to 1 hour specimen collection interval exceeded. Blood BLOOD SPECIMEN / Unknown Venipuncture / Unknown 03/15/2024 9:07 PM VBA PROGRAMMER 03/15/2024 9:14 PM VBA PROGRAMMER Lennie Anna MD LAB - CHEMISTRY ORDERABLES Performing Organization Address [facility]/ZIP Co de Phone Number [address] [address], [facility] [phone] * (ABNORMAL) TROPONIN-I HIGH SENSITIVE BASELINE + 1HR (03/15/2024 6:03 PM VBA PROGRAMMER) [facility] Troponin I High Sensitive 17(H) <=14 ng/L 03/15/2024 6:54 PM VBA PROGRAMMER [facility] Blood BLOOD SPECIMEN / Unknown Venipuncture / Unknown 03/15/2024 6:03 PM VBA PROGRAMMER 03/15/2024 6:21 PM VBA PROGRAMMER Lennie Anna MD LAB - CHEMISTRY ORDERABLES [address] [address], [facility] [phone] * (ABNORMAL) GLUCOSE - POINT OF CARE (03/15/2024 5:38 PM VBA PROGRAMMER) [facility] Glucose WB/POC 164(H) 70 - 99 mg/dL 03/15/2024 5:39 PM VBA PROGRAMMER [facility] Specimen Type Cap Fingerstick 2023 5:39 PM VBA PROGRAMMER [facility] Blood BLOOD SPECIMEN / Unknown 03/15/2024 5:38 PM VBA PROGRAMMER 03/15/2024 5:39 PM VBA PROGRAMMER Lennie Anna MD LAB - POINT OF CARE ORDERABLES Performing Organization Address [facility]/ZIP Co de Phone Number [address] [address], [place] [phone] * (ABNORMAL) PHOSPHORUS BLOOD (03/15/2024 4:53 PM VBA PROGRAMMER) Phosphorus 2.6(L) 2.9 - 5.1 mg/dL 03/15/2024 5:28 PM VBA PROGRAMMER [facility] Blood BLOOD SPECIMEN / Unknown Venipuncture / Unknown 03/15/2024 4:53 PM VBA PROGRAMMER 03/15/2024 5:01 PM VBA PROGRAMMER Lennie Anna MD LAB - CHEMISTRY ORDERABLES Performing Organization Address [facility]/ZIP Co de Phone Number [address] [address], [place] [phone] * MAGNESIUM BLOOD (03/15/2024 4:53 PM VBA PROGRAMMER) Magnesium 2.1 1.6 - 2.6 mg/dL 03/15/2024 5:28 PM VBA PROGRAMMER [facility] Blood BLOOD SPECIMEN / Unknown Venipuncture / Unknown 03/15/2024 4:53 PM VBA PROGRAMMER 03/15/2024 5:01 PM VBA PROGRAMMER Lennie Anna MD LAB - CHEMISTRY ORDERABLES Performing Organization Address [facility]/ZIP Co de Phone Number [address] [address], [place] [phone] * (ABNORMAL) CBC W/O DIFFERENTIAL (03/15/2024 4:53 PM VBA PROGRAMMER) WBC 17.7(H) 4.0 - 10.7 x10E9/L 03/15/2024 5:05 PM [facility] RBC Count 2.58(L) 3.90 - 5.20 x10E12/L 03/15/2024 5:05 PM [facility] Hemoglobin 7.9(L) 11.9 - 15.8 g/dL 03/15/2024 5:05 PM [facility] Hematocrit 23.3(L) 34.8 - 46.1 % 03/15/2024 5:05 PM [facility] MCV 90.3 80.0 - 98.0 fL 03/15/2024 5:05 PM [facility] MCH 30.6 26.7 - 33.6 pg 03/15/2024 5:05 PM [facility] MCHC 33.9 31.7 - 36.3 g/dL 03/15/2024 5:05 PM [facility] RDW-CV 14.2 11.3 - 14.8 % 03/15/2024 5:05 PM [facility] Platelet Count 143(L) 150 - 420 x10E9/L 03/15/2024 5:05 PM [facility] MPV 11.6(H) 7.8 - 11.4 fL 03/15/2024 5:05 PM [facility] Blood BLOOD SPECIMEN / Unknown Venipuncture / Unknown 03/15/2024 4:53 PM VBA PROGRAMMER 03/15/2024 5:01 PM VBA PROGRAMMER Lennie Anna MD LAB - HEMATOLOG Y ORDERABLES Performing Organization Address [facility] de Phone Number [facility] [address] [place] [phone] [phone] * XR Chest 1Vw Portable (03/15/2024 4:40 PM VBA PROGRAMMER) Anatomical Region Laterality Modality Chest Digital Radiogra phy 03/17/2024 8:20 AM VBA PROGRAMMER Narrative 03/17/2024 10:55 AM VBA PROGRAMMER PROCEDURE: ??XR CHEST 1VW PORTABLE, DATE/TIME OF EXAM: ??03/15/2024 4:55 PM, LOCATION ??[facility] INDICATION: W19.XXXA: Fall, initial encounter I60.9: Subarachnoid bleed (HCC) R41.82: Altered mental status, unspecified altered mental status type J96.90: Respiratory failure after trauma (HCC) Z97.8: Endotracheal tube present S06.5XAA: Subdural hematoma (HCC) R52: Acute pain Z74.09: Impaired mobility and ADLs Z78.9: Impaired mobility and ADLs T14.90XA: Trauma ADDITIONAL CLINICAL INFORMATION: Ordering Provider Reason For Exam: ??hypotension COMPARISON: Chest radiograph 03/15/2024 FINDINGS/IMPRESSION: Lines, tubes, hardware: *An endotracheal tube seen with the tip appropriately positioned in the mid thoracic trachea. *Enteric tube seen coursing below the diaphragm with tip outside [id number]. * Coronary stent seen. Right lung base granuloma. There is no pleural effusion or pneumothorax. The cardiac silhouette is normal. There is atherosclerotic calcification of the aorta. > Dictated by Viktor WELDON, [facility] ??(senior resident care director). I, Gayle Zhang MD have personally reviewed and interpreted this examination/study. > Interpreting Provider: Gayle Zhang MD on 03/17/2024 10:55 AM Procedure Note Gayle Zhang MD - 03/17/2024 PROCEDURE: XR CHEST 1VW PORTABLE, DATE/TIME OF EXAM: 03/15/2024 4:55PM, LOCATION [facility] INDICATION: W19.XXXA: Fall, initial encounter I60.9: Subarachnoid bleed (HCC) R41.82: Altered mental status, unspecified altered mental status type J96.90: Respiratory failure after trauma (HCC) Z97.8: Endotracheal tube present S06.5XAA: Subdural hematoma (HCC) R52: Acute pain Z74.09: Impaired mobility and ADLs Z78.9: Impaired mobility and ADLs T14.90XA: Trauma ADDITIONAL CLINICAL INFORMATION: Ordering Provider Reason For Exam: hypotension COMPARISON: Chest radiograph 03/15/2024 FINDINGS/IMPRESSION: Lines, tubes, hardware: *An endotracheal tube seen with the tip appropriately positioned in themid thoracic trachea. *Enteric tube seen coursing below the diaphragm with tip outside [id number]. * Coronary stent seen. Right lung base granuloma. There is no pleural effusion or pneumothorax. The cardiac silhouette is normal. There is atherosclerotic calcificationof the aorta. > Dictated by Viktor WELDON, [facility] (senior resident care director). I, Gayle Zhang MD have personally reviewed and interpreted this examination/study. > Interpreting Provider: aGyle Zhang MD on 03/17/2024 10:55 AM Lennie Anna MD DIAGNOSTIC IMAG ING ORDERABLES * (ABNORMAL) COMPREHENSIVE METABOLIC PANEL (03/15/2024 4:26 PM [facility]) BUN 26 7 - 26 mg/dL 03/15/2024 [...] 5 - 55 U/L 03/15/2024 4:59 PM [facility] AST 12 5 - 34 U/L [...] Unknown Venipuncture / Unknown 03/15/2024 4:26 PM VBA PROGRAMMER 03/15/2024 4:33 PM [facility] Lennie Anna MD LAB - CHEMISTRY ORDERABLES Performing Organization Address City/State/[facility] Co de Phone Number [facility] [address] [place] [phone] [phone] * (ABNORMAL) BLOOD GASES ART + COOX PANEL (03/15/2024 4:26 PM VBA PROGRAMMER) pH Arterial 7.45 7.35 - 7.45 pH 03/15/2024 4:37 PM [facility] pO2 Arterial 155(H) 80 - 100 mmHg 03/15/2024 4:37 PM [facility] pCO2 Arterial 31(L) 35 - 45 mmHg 4:37 PM [facility] HCO3 Arterial 21.5 20.0 - 30.0 mmol/L 03/15/2024 4:37 PM [facility] BE Arterial -2.1(L) -2.0 - 2.0 mmol/L 03/15/2024 4:37 PM [facility] Oxyhemoglobin Arterial 97.2 % 03/15/2024 4:37 PM [facility] Dexoyhemoglobin (HHB) % <1.0 % 03/15/2024 4:37 PM [facility] Methemoglobin 1.5 0.0 - 2.0 % 03/15/2024 4:37 PM [facility] Carboxyhemoglobin 1.3 0.0 - 2.0 % 2023 4:37 PM [facility] O2 Content Arterial 10.8 Interpret within clinical context ml/dL 03/15/2024 4:37 PM [facility] Hemoglobin by COOX 7.6(L) 12.0 - 15.6 g/dL 03/15/2024 4:37 PM [facility] O2 Saturation Arterial 100 90 - 100 % 03/15/2024 4:37 PM [facility] FI O2 Arterial 30.0 % 03/15/2024 4:37 PM [facility] Blood, arterial ARTERIAL BLOOD SPECIMEN / Unknown Arterial Puncture / Unknown 03/15/2024 4:26 PM VBA PROGRAMMER 03/15/2024 4:31 PM [facility] - 03/15/2024 4:37 PM [facility] Carboxyhemoglobin Normal Concentration: Non-smokers: 0-2%; Smokers: 0-9%; Toxic: >20% Lennie Anna MD LAB - BLOOD GAS ES ORDERABLES [facility] [address] [place] [address], [facility] [phone] * B-TYPE NATRIURETIC PEPTIDE (03/15/2024 4:26 PM [facility]) BNP 50 <100 pg/mL 03/15/2024 5:04 PM [facility] Comment: A decision threshold of 100 [...] Unknown Venipuncture / Unknown 03/15/2024 4:26 PM VBA PROGRAMMER 03/15/2024 4:33 PM VBA PROGRAMMER Lennie Anna MD LAB - CHEMISTRY ORDERABLES Performing Organization Address [facility] Phone Number [address] [address], [facility] [phone] * (ABNORMAL) TROPONIN-I HIGH SENSITIVE (03/15/2024 4:26 PM VBA PROGRAMMER) Troponin I High Sensitive 22(H) <=14 ng/L 03/15/2024 5:03 PM VBA PROGRAMMER [facility] Blood BLOOD SPECIMEN / Unknown Venipuncture / Unknown 03/15/2024 4:26 PM VBA PROGRAMMER 03/15/2024 4:33 PM VBA PROGRAMMER Lennie Anna MD LAB - CHEMISTRY ORDERABLES Performing Organization Address City/[facility]/ZIP Co de Phone Number [facility] [address] [place] [address], [facility] [phone] * EKG 12-LEAD (03/15/2024 4:16 PM VBA PROGRAMMER) Ventricular Rate 76 BPM [facility] Atrial Rate 76 BPM [facility] P-R Interval 144 ms [facility] QRS Duration ms 76 ms [facility] Q-T Interval ms 428 ms [facility] QTC Calculation (Bezet) 481 ms [facility] Calculated P [place] 79 degrees [facility] Calculated R [place] 53 degrees [facility] Calculated T [place] -131 degrees [facility] Interpretation EKG SINUS RHYTHM WITH PREMATURE SUPRAVENTRICULAR COMPLEXES ST & T WAVE ABNORMALITY, CONSIDER INFERIOR ISCHEMIA ST & T WAVE ABNORMALITY, CONSIDER ANTEROLATERAL ISCHEMIA PROLONGED QT ABNORMAL ECG NO PREVIOUS ECGS AVAILABLE Confirmed by JOSE DAVID ALFARO MD ([id number]) on 03/17/2024 9:36:36 AM [facility] 03/15/2024 4:1 6 PM VBA PROGRAMMER 03/17/2024 9:36 AM VBA PROGRAMMER Lennie Anna MD ECG ORDERABLES Performing Organization Address [facility] Co de Phone Number [facility] * (ABNORMAL) BLOOD GASES VASILIY + COOX PANEL (03/15/2024 12:05 PM VBA PROGRAMMER) pH Venous 7.37 7.32 - 7.42 pH 03/15/2024 12:24 PM [facility] pO2 Venous 45(H) 35 - 40 mmHg 03/15/2024 12:24 PM [facility] pCO2 Venous 39(L) 40 - 50 mmHg 03/15/2024 12:24 PM [facility] HCO3 Venous 22.5 20 - 30 mmol/L 03/15/2024 12:24 PM [facility] Base Excess Venous -2.6(L) -2.0 - 2.0 mmol/L 03/15/2024 12:24 PM [facility] Oxyhemoglobin Venous 75.3 % 02/21 12:24 [...] Venous 77 >=70 % 02/21 12:24 PM [facility] FI O2 Mixed Venous 30.0 % 2023 12:24 PM [facility] [facility] Blood BLOOD SPECIMEN / Unknown Venipuncture / Unknown 03/15/2024 12:05 PM VBA PROGRAMMER 03/15/2024 12:22 PM VBA PROGRAMMER Narrative [facility] - 03/15/2024 12:24 PM VBA PROGRAMMER Carboxyhemoglobin Normal Concentration: Non-smokers: 0-2%; Smokers: 0-9%; Toxic: >20% Lennie Anna MD LAB - BLOOD GAS ES ORDERABLES Performing Organization Address [facility]/State/ZIP Co de Phone Number [facility] [address] [place] [phone], [facility] [phone] * (ABNORMAL) GLUCOSE - POINT OF CARE (03/15/2024 12:03 PM VBA PROGRAMMER) Glucose WB/POC 132(H) 70 - 99 mg/dL 03/15/2024 12:04 PM [facility] Specimen Type Arterial 03/15/2024 12:04 PM [facility] Blood BLOOD SPECIMEN / Unknown 03/15/2024 12:03 PM VBA PROGRAMMER 03/15/2024 12:04 PM VBA PROGRAMMER Lennie Anna MD LAB - POINT OF CARE ORDERABLES Performing Organization Address City/[facility]/ZIP Co de Phone Number [facility] [address] [place] [address], [facility] [phone] * (ABNORMAL) GLUCOSE - POINT OF CARE (03/15/2024 6:03 AM VBA PROGRAMMER) Glucose WB/POC 136(H) 70 - 99 mg/dL 03/15/2024 6:08 AM VBA PROGRAMMER [facility] Specimen Type Cap Fingerstick 2023 6:08 AM VBA PROGRAMMER [facility] Blood BLOOD SPECIMEN / Unknown 03/15/2024 6:03 AM VBA PROGRAMMER 03/15/2024 6:08 AM VBA PROGRAMMER Lennie Anna MD LAB - POINT OF CARE ORDERABLES Performing Organization Address City/[facility]/ZIP Co de Phone Number [address] [address], [facility] [phone] * XR Chest 1Vw Portable (03/15/2024 5:09 AM VBA PROGRAMMER) Anatomical Region Laterality Modality Chest Digital Radiogra phy 03/15/2024 10:0 4 AM VBA PROGRAMMER Narrative 03/16/2024 12:59 AM VBA PROGRAMMER PROCEDURE: ??XR CHEST 1VW PORTABLE, DATE/TIME OF EXAM: ??03/15/2024 5:09 AM, LOCATION ??[facility] INDICATION: Z97.8: Endotracheal tube present ADDITIONAL CLINICAL INFORMATION: Ordering Provider Reason For Exam: ??ET tube present COMPARISON: Chest radiograph 03/13/2024 FINDINGS/IMPRESSION: Lines, tubes, hardware: * An endotracheal tube seen with the tip appropriately positioned in the mid thoracic trachea. * Enteric tube is seen with its tip below the diaphragm out of the field of view. Right lung base granuloma. There is no focal consolidation, pleural effusion, or pneumothorax. The cardiac silhouette is normal. There is atherosclerotic calcification of the aorta. > Dictated by Viktor Jett, FRCR ??(senior resident care director). I, Todd Garcia MD have personally reviewed and interpreted this examination/study. > Interpreting Provider: Todd Garcia MD on 03/16/2024 12:59 AM Procedure Note Todd Garcia MD - 03/16/2024 PROCEDURE: XR CHEST 1VW PORTABLE, DATE/TIME OF EXAM: 03/15/2024 5:09AM, LOCATION [facility] INDICATION: Z97.8: Endotracheal tube present ADDITIONAL CLINICAL INFORMATION: Ordering Provider Reason For Exam: ET tube present COMPARISON: Chest radiograph 03/13/2024 FINDINGS/IMPRESSION: Lines, tubes, hardware: * An endotracheal tube seen with the tip appropriately positioned in the mid thoracic trachea. * Enteric tube is seen with its tip below the diaphragm out of the fieldof view. Right lung base granuloma. There is no focal consolidation, pleural effusion, or pneumothorax. The cardiac silhouette is normal. There is atherosclerotic calcification of the aorta. > Dictated by Viktor WELDON, [facility] (senior resident care director). ITodd MD have personally reviewed and interpreted this examination/study. > Interpreting Provider: Todd Garcia MD on 03/16/2024 12:59 AM Lennie Anna MD DIAGNOSTIC IMAG ING ORDERABLES * CALCIUM IONIZED WHOLE BLOOD (03/15/2024 12:48 AM VBA PROGRAMMER) Calcium Ionized 1.30 mmol/L 03/15/2024 12:55 AM VBA PROGRAMMER [facility] pH 7.44 7.35 - 7.45 pH 03/15/2024 12:55 AM VBA PROGRAMMER [facility] Ionized Calcium pH Adjusted 1.32 1.19 - 1.34 mmol/L 03/15/2024 12:55 AM VBA PROGRAMMER [facility] Blood BLOOD SPECIMEN / Unknown Venipuncture / Unknown 03/15/2024 12:48 AM VBA PROGRAMMER 03/15/2024 12:51 AM VBA PROGRAMMER Lennie Anna MD LAB - CHEMISTRY ORDERABLES [facility] [address] [place] [phone], [facility] [phone] * (ABNORMAL) BLOOD GASES ART + COOX PANEL (03/15/2024 12:48 AM VBA PROGRAMMER) pH Arterial 7.45 7.35 - 7.45 pH 03/15/2024 12:55 AM [facility] pO2 Arterial 120(H) 80 - 100 mmHg 03/15/2024 12:55 AM [facility] pCO2 Arterial 31(L) 35 - 45 mmHg 12:55 AM [facility] HCO3 Arterial 21.5 20.0 - 30.0 mmol/L 03/15/2024 12:55 AM [facility] BE Arterial -2.0 -2.0 - 2.0 mmol/L 03/15/2024 12:55 AM [facility] Oxyhemoglobin Arterial 97.1 % 03/15/2024 12:55 AM [facility] Dexoyhemoglobin (HHB) % <1.0 % 03/15/2024 12:55 AM [facility] Methemoglobin <0.8 0.0 - 2.0 % 03/15/2024 12:55 AM [facility] Carboxyhemoglobin 2.2(H) 0.0 - 2.0 % 2023 12:55 AM [facility] O2 Content Arterial 11.7 Interpret within clinical context ml/dL 03/15/2024 12:55 AM [facility] Hemoglobin by COOX 8.4(L) 12.0 - 15.6 g/dL 03/15/2024 12:55 AM [facility] O2 Saturation Arterial 100 90 - 100 % 03/15/2024 12:55 AM [facility] FI O2 Arterial 30.0 % 03/15/2024 12:55 AM [facility] Blood, arterial ARTERIAL BLOOD SPECIMEN / Unknown Arterial Puncture / Unknown 03/15/2024 12:48 AM VBA PROGRAMMER 03/15/2024 12:51 AM [facility] - 03/15/2024 12:55 AM [facility] Carboxyhemoglobin Normal Concentration: Non-smokers: 0-2%; Smokers: 0-9%; Toxic: >20% Lennie Anna MD LAB - BLOOD GAS ES ORDERABLES [facility] [address] [place] [address], [place] [phone] * MAGNESIUM BLOOD (03/15/2024 12:48 AM VBA PROGRAMMER) Magnesium 2.0 1.6 - 2.6 mg/dL 03/15/2024 1:14 AM [facility] Blood BLOOD SPECIMEN / Unknown Venipuncture / Unknown 03/15/2024 12:48 AM VBA PROGRAMMER 03/15/2024 1:01 AM VBA PROGRAMMER Lennie Anna MD LAB - CHEMISTRY ORDERABLES [address] [address], [place] [phone] * PHOSPHORUS BLOOD (03/15/2024 12:48 AM VBA PROGRAMMER) Phosphorus 3.1 2.9 - 5.1 mg/dL 03/15/2024 1:14 AM [facility] Blood BLOOD SPECIMEN / Unknown Venipuncture / Unknown 03/15/2024 12:48 AM VBA PROGRAMMER 03/15/2024 1:01 AM VBA PROGRAMMER Lennie Anna MD LAB - CHEMISTRY ORDERABLES [address] [address], [place] [phone] * (ABNORMAL) BASIC METABOLIC PANEL (CALCIUM TOTAL) (03/15/2024 12:48 AM VBA PROGRAMMER) BUN 21 7 - 26 mg/dL 03/15/2024 1:14 AM [facility] Creatinine 1.15(H) 0.56 - 0.96 mg/dL 03/15/2024 1:14 AM [facility] Sodium 131(L) 136 - 145 mmol/L 03/15/2024 1:14 AM [facility] Potassium 4.0 3.5 - 4.5 mmol/L 03/15/2024 1:14 AM [facility] Chloride 109(H) 98 - 107 mmol/L 03/15/2024 1:14 AM [facility] CO2 20(L) 22 - 29 mmol/L 03/15/2024 1:14 AM [facility] Glucose 155(H) 70 - 99 mg/dL 03/15/2024 1:14 AM [facility] Calcium 8.3(L) 8.4 - 10.2 mg/dL 03/15/2024 1:14 AM [facility] Anion Gap 2(L) 6 - 16 03/15/2024 1:14 AM [facility] BUN/Creatinine Ratio 18 7 - 23 03/15/2024 1:14 AM [facility] Osmolality Calculated 278 275 - 295 mOsm/kg 03/15/2024 1:14 AM [facility] eGFR by CKD-EPI 46(L) >=90 mL/min/1.7 3 m2 03/15/2024 1:14 AM [facility] Blood BLOOD SPECIMEN / Unknown Venipuncture / Unknown 03/15/2024 12:48 AM VBA PROGRAMMER 03/15/2024 1:01 AM [facility] Lennie Anna MD LAB - CHEMISTRY ORDERABLES Performing Organization Address City/State/[facility] Co de Phone Number [facility] [address] [place] [phone], [facility] [phone] * (ABNORMAL) CBC W AUTO DIFFERENTIAL (03/15/2024 12:48 AM [facility]) WBC 14.7(H) 4.0 - 10.7 x10E9/L 03/15/2024 3:57 AM [facility] RBC Count 2.63(L) 3.90 - 5.20 x10E12/L 03/15/2024 3:57 AM [facility] Hemoglobin 8.0(L) 11.9 - 15.8 g/dL 03/15/2024 3:57 AM [facility] Hematocrit 24.0(L) 34.8 - 46.1 % 03/15/2024 3:57 AM [facility] MCV 91.3 80.0 - 98.0 fL 03/15/2024 3:57 AM [facility] MCH 30.4 26.7 - 33.6 pg 03/15/2024 3:57 AM [facility] MCHC 33.3 31.7 - 36.3 g/dL 03/15/2024 3:57 AM [facility] RDW-CV 14.1 11.3 - 14.8 % 03/15/2024 3:57 AM [facility] Platelet Count 117(L) 150 - 420 x10E9/L 03/15/2024 3:57 AM [facility] MPV 11.7(H) 7.8 - 11.4 fL 03/15/2024 3:57 AM [facility] Neutrophil % 85.4(H) 41.0 - 74.0 % 03/15/2024 3:57 AM [facility] Lymphocyte % 7.6(L) 17.0 - 47.0 % 03/15/2024 3:57 AM [facility] Monocyte % 6.3 3.0 - 11.0 % 03/15/2024 3:57 AM [facility] Eosinophil % 0.0 0.0 - 7.0 % 03/15/2024 3:57 AM [facility] Basophil % 0.2 0.0 - 1.6 % 03/15/2024 3:57 AM [facility] Immature Granulocytes % 0.5 0.0 - 1.0 % 03/15/2024 3:57 AM [facility] Neutrophil Absolute 12.57(H) 1.60 - 7.50 x10E9/L 03/15/2024 3:57 AM [facility] Lymphocyte Absolute 1.12 1.00 - 4.40 x10E9/L 03/15/2024 3:57 AM [facility] Monocyte Absolute 0.93 0.15 - 1.00 x10E9/L 03/15/2024 3:57 AM [facility] Eosinophil Absolute 0.00 0.00 - 0.60 x10E9/L 03/15/2024 3:57 AM [facility] Basophil Absolute 0.03 0.00 - 0.13 x10E9/L 03/15/2024 3:57 AM [facility] Blood BLOOD SPECIMEN / Unknown Venipuncture / Unknown 03/15/2024 12:48 AM VBA PROGRAMMER 03/15/2024 12:57 AM VBA PROGRAMMER Lennie Anna MD LAB - HEMATOLOG Y ORDERABLES Performing Organization Address [facility]/ZIP Co de Phone Number [address] [address], [place] [phone] * TRIGLYCERIDES BLOOD (03/15/2024 12:48 AM VBA PROGRAMMER) Triglycerides 86 <150 mg/dL 03/15/2024 1:09 AM VBA PROGRAMMER [facility] Comment: ATP III Classification of Triglycerides: ?<150 mg/dL: ??Normal ? 150 - 199 mg/dL: ??Borderline High ? 200 - 400 mg/dL: ??High ?>500 mg/dL: ??Very High Blood BLOOD SPECIMEN / Unknown Venipuncture / Unknown 03/15/2024 12:48 AM VBA PROGRAMMER 03/15/2024 1:01 AM VBA PROGRAMMER Luther Bridges MD LAB - CHEMISTRY ORDE MAU Performing Organization Address [facility] Co de Phone Number [address] [address], [place] [phone] * (ABNORMAL) GLUCOSE - POINT OF CARE (03/14/2024 11:20 PM VBA PROGRAMMER) Glucose WB/POC 108(H) 70 - 99 mg/dL 03/14/2024 11:21 PM VBA PROGRAMMER [facility] Specimen Type Cap Fingerstick 2023 11:21 PM VBA PROGRAMMER [facility] Blood BLOOD SPECIMEN / Unknown 03/14/2024 11:20 PM VBA PROGRAMMER 03/14/2024 11:21 PM VBA PROGRAMMER Lenine Anna MD LAB - POINT OF CARE ORDERABLES Performing Organization Address City/[facility]/ZIP Co de Phone Number [address] [phone] [phone] * XR Hand Left 2Vw (03/14/2024 9:53 PM VBA PROGRAMMER) Anatomical Region Laterality Modality Wrist / Hand Digital Radiogra phy 03/15/2024 10:4 5 AM VBA PROGRAMMER Impressions 03/16/2024 12:34 AM VBA PROGRAMMER IMPRESSION: 1. No fracture. 2.Joint space narrowing, [...] be recommended. > Dictated by Viktor [facility] (senior resident care director). ITodd MD have personally reviewed and interpreted this examination/study. > Interpreting Provider: Todd Garcia MD on 03/16/2024 12:34 AM Narrative 03/16/2024 12:34 AM VBA PROGRAMMER EXAMINATION: XR HAND LEFT 2VW DATE/TIME OF EXAM: ??03/14/2024 9:56 PM, LOCATION ??[facility] HISTORY: W19.XXXA: Fall, initial encounter I60.9: [...] DATE/TIME OF EXAM: 03/14/2024 9:56 PM, LOCATION [facility] HISTORY: W19.XXXA: Fall, initial encounter I60.9: Subarachnoid bleed ([facility]) R41.82: Altered mental status, unspecified altered mental status type J96.90: Respiratory failure after trauma ([facility]) Z97.8: Endotracheal tube present S06.5XAA: Subdural hematoma ([facility]) R52: Acute pain Z74.09: Impaired [...] be recommended. > Dictated by Viktor [facility] (senior resident care director). I, Todd Garcia MD have personally reviewed and interpreted this examination/study. > Interpreting Provider: Todd Garcia MD on 03/16/2024 12:34 AM Lennie Anna MD DIAGNOSTIC IMAG ING ORDERABLES * (ABNORMAL) URINALYSIS REFLEX MICROSCOPIC REFLEX CULTURE (03/14/2024 9:51 PM VBA PROGRAMMER) Color UA Yellow Straw, Yellow 03/14/2024 10:05 PM [facility] Clarity UA Clear Clear 03/14/2024 10:05 PM [facility] Specific [place] UA >1.060(H) 1.005 - 1.030 03/14/2024 10:05 [...] UA Negative Negative mg/dL 03/14/2024 10:05 PM [facility] Comment UA Microscopic not indicated. 03/14/2024 10:05 PM [facility] Urine URINE SPECIMEN OBTAINED VIA INDWELLING URINARY CATHETER / Unknown Collection / Unknown 03/14/2024 9:51 PM VBA PROGRAMMER 03/14/2024 9:56 PM VBA PROGRAMMER Narrative [facility] - 03/14/2024 10:05 PM VBA PROGRAMMER Lennie Anna MD LAB - URINALYSI S ORDERABLES Performing Organization Address City/State/[facility] Co de Phone Number [facility] [address] [place] [phone], [facility] [phone] * XR Hand Right 2Vw (03/14/2024 9:42 PM VBA PROGRAMMER) Anatomical Region Laterality Modality Wrist / Hand Digital Radiogra phy 03/15/2024 10:4 0 AM VBA PROGRAMMER Impressions 03/16/2024 12:33 AM VBA PROGRAMMER IMPRESSION: 1. No fracture. 2. Joint space [...] be recommended. > Dictated by Viktor [facility] (senior resident care director). ITodd MD have personally reviewed and interpreted this examination/study. > Interpreting Provider: Todd Garcia MD on 03/16/2024 12:33 AM Narrative 03/16/2024 12:33 AM VBA PROGRAMMER EXAMINATION: XR HAND RIGHT 2VW DATE/TIME OF EXAM: ??03/14/2024 9:55 PM, LOCATION ??[facility] HISTORY: W19.XXXA: Fall, initial encounter I60.9: [...] DATE/TIME OF EXAM: 03/14/2024 9:55 PM, LOCATION [facility] HISTORY: [id number].XXXA: Fall, initial encounter I60.9: [...] be recommended. > Dictated by Maliha Aldrich (senior resident care director). Todd Guzmán MD have personally reviewed and interpreted this examination/study. 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 > Dictated by Maliha Aldrich (senior resident care director). Todd Guzmán MD have personally reviewed and interpreted this examination/study. > Interpreting Provider: Todd Garcia MD on 03/16/2024 12:30 AM Narrative 03/16/2024 12:30 AM VBA PROGRAMMER EXAMINATION: XR KNEE LEFT 2VW OR LESS DATE/TIME OF EXAM: ??03/14/2024 9:54 PM, LOCATION ??[facility] HISTORY: W19.XXXA: Fall, initial encounter I60.9: Subarachnoid bleed ([facility]) R41.82: Altered mental status, unspecified altered mental status type J96.90: Respiratory failure after trauma ([facility]) Z97.8: Endotracheal tube present S06.5XAA: Subdural hematoma ([facility]) R52: Acute pain Z74.09: Impaired [...] DATE/TIME OF EXAM: 03/14/2024 9:54 PM, LOCATION [facility] HISTORY: W19.XXXA: Fall, initial encounter I60.9: [...] periprosthetic fracture. > Dictated by Maliha Aldrich (senior resident care director). Todd Guzmán MD have personally reviewed and interpreted this examination/study. > Interpreting Provider: Todd Garcia MD on 03/16/2024 12:30 AM Lennie Anna MD DIAGNOSTIC IMAG ING ORDERABLES * XR Knee Right 2Vw or Less (03/14/2024 9:20 PM VBA PROGRAMMER) Anatomical Region Laterality Modality Lower Extremity Digital Radiogra phy 03/15/2024 10:3 6 AM VBA PROGRAMMER Impressions 03/16/2024 12:30 AM VBA PROGRAMMER IMPRESSION: No acute fracture or dislocation of knee identified.Intra-articular ossific densities within the right knee joint are indeterminate and could be degenerative. Right knee intercondylar view can be performed if clinically needed. > Dictated by Maliha Aldrich (senior resident care director). Todd Guzmán MD have personally reviewed and interpreted this examination/study. > Interpreting Provider: Todd Garcia MD on 03/16/2024 12:30 AM Narrative 03/16/2024 12:30 AM VBA PROGRAMMER EXAMINATION: XR KNEE RIGHT 2VW OR LESS DATE/TIME OF EXAM: ??03/14/2024 9:53 PM, LOCATION ??[facility] HISTORY: W19.XXXA: Fall, initial encounter I60.9: [...] DATE/TIME OF EXAM: 03/14/2024 9:53 PM, LOCATION [facility] HISTORY: [id number].XXXA: Fall, initial encounter I60.9: [...] ifclinically needed. > Dictated by Viktor [facility] (senior resident care director). ITodd MD have personally reviewed and interpreted this examination/study. > Interpreting Provider: Todd Garcia MD on 03/16/2024 12:30 AM Lennie Anna MD DIAGNOSTIC IMAG ING ORDERABLES * (ABNORMAL) CALCIUM IONIZED WHOLE BLOOD (03/14/2024 6:46 PM VBA PROGRAMMER) Calcium Ionized 0.77 mmol/L 03/14/2024 7:12 PM [facility] pH 7.10(L) 7.35 - 7.45 pH 03/14/2024 7:12 PM [facility] Ionized Calcium pH Adjusted 0.68(LL) 1.19 - 1.34 mmol/L 03/14/2024 7:12 PM [facility] Blood BLOOD SPECIMEN / Unknown Venipuncture / Unknown 03/14/2024 6:46 PM VBA PROGRAMMER 03/14/2024 6:52 PM VBA PROGRAMMER Lennie Anna MD LAB - CHEMISTRY ORDERABLES [facility] [address] [place] [address], [facility] [phone] * (ABNORMAL) BLOOD GASES VASILIY + COOX PANEL (03/14/2024 6:46 PM VBA PROGRAMMER) pH Venous 7.10(LL) 7.32 - 7.42 pH 03/14/2024 7:13 PM [facility] pO2 Venous 53(H) 35 - 40 mmHg 03/14/2024 7:13 PM [facility] pCO2 Venous 38(L) 40 - 50 mmHg 03/14/2024 7:13 PM [facility] HCO3 Venous 11.8(L) 20 - 30 mmol/L 03/14/2024 7:13 PM [facility] Base Excess Venous -16.7(L) -2.0 - 2.0 mmol/L 03/14/2024 7:13 PM [facility] Oxyhemoglobin Venous 78.1 % 02/21 7:13 PM [facility] Deoxyhemoglobin (HHB) Venous % 19.1 % 03/14/2024 7:13 PM [facility] Methemoglobin <0.8 0.0 - 2.0 % 03/14/2024 7:13 PM [facility] Carboxyhemoglobin 2.3(H) 0.0 - 2.0 % 2023 7:13 PM [facility] O2 Content Venous 9.5 Interpret within clinical context ml/dL 03/14/2024 7:13 PM [facility] Hemoglobin by COOX 8.6(L) 12.0 - 15.6 g/dL 03/14/2024 7:13 PM VBA PROGRAMMER [facility] O2 Saturation Venous 80 >=70 % 02/21 7:13 PM [facility] FI O2 Mixed Venous 30.0 % 2023 7:13 PM [facility] Blood BLOOD SPECIMEN / Unknown Venipuncture / Unknown 03/14/2024 6:46 PM VBA PROGRAMMER 03/14/2024 6:52 PM VBA PROGRAMMER Narrative [facility] - 03/14/2024 7:13 PM VBA PROGRAMMER Carboxyhemoglobin Normal Concentration: Non-smokers: 0-2%; Smokers: 0-9%; Toxic: >20% Lennie Anna MD LAB - BLOOD GAS ES ORDERABLES Performing Organization Address City/[facility]/ZIP Co de Phone Number [address] [address], [place] [phone] * (ABNORMAL) GLUCOSE - POINT OF CARE (03/14/2024 6:08 PM VBA PROGRAMMER) Glucose WB/POC 118(H) 70 - 99 mg/dL 03/14/2024 6:10 PM [facility] Specimen Type Cap Fingerstick 2023 6:10 PM [facility] Blood BLOOD SPECIMEN / Unknown 03/14/2024 6:08 PM VBA PROGRAMMER 03/14/2024 6:10 PM VBA PROGRAMMER Lennie Anna MD LAB - POINT OF CARE ORDERABLES [address] [address], [place] [phone] * (ABNORMAL) CBC W/O DIFFERENTIAL (03/14/2024 6:05 PM VBA PROGRAMMER) WBC 22.6(H) 4.0 - 10.7 x10E9/L 03/14/2024 6:42 PM [facility] RBC Count 3.45(L) 3.90 - 5.20 x10E12/L 03/14/2024 6:42 PM [facility] Hemoglobin 10.4(L) 11.9 - 15.8 g/dL 03/14/2024 6:42 PM [facility] Hematocrit 32.5(L) 34.8 - 46.1 % 03/14/2024 6:42 PM [facility] MCV 94.2 80.0 - 98.0 fL 03/14/2024 6:42 PM [facility] MCH 30.1 26.7 - 33.6 pg 03/14/2024 6:42 PM [facility] MCHC 32.0 31.7 - 36.3 g/dL 03/14/2024 6:42 PM [facility] RDW-CV 14.0 11.3 - 14.8 % 03/14/2024 6:42 PM [facility] Platelet Count 03/14/2024 6:42 PM [facility] Comment:Platelets clumped on slide but appears decreased. Recommend repeat with a sodium citrate blue top tube. MPV 03/14/2024 6:42 PM [facility] Comment:Unable to report Blood BLOOD SPECIMEN / Unknown Venipuncture / Unknown 03/14/2024 6:05 PM VBA PROGRAMMER 03/14/2024 6:10 PM VBA PROGRAMMER Lennie Anna MD LAB - HEMATOLOG Y ORDERABLES Performing Organization Address [facility]/State/[facility] Co de Phone Number [address] [address], [facility] [phone] * CT Head Wo Contrast (03/14/2024 3:03 PM VBA PROGRAMMER) Anatomical Region Laterality Modality Head Computed Tomogra phy 03/14/2024 3:51 PM VBA PROGRAMMER Impressions 03/14/2024 3:57 PM VBA PROGRAMMER IMPRESSION: 1. Slightly increased amount of subarachnoid hemorrhage scattered in the bilateral cerebral sulci, the solid fissures and the ambient and quadrigeminal plate cisterns. 2. A small subdural hematoma along the left tentorial leaflet is grossly unchanged. 3. Increased density of the small bilateral subdural fluid collections measuring up to 7 mm in maximum thickness in the right frontal cerebral convexities is likely related to the presence of residual contrast material. No midline shift. > Interpreting Provider: Barbara Moreno MD on 03/14/2024 3:57 PM Narrative 03/14/2024 3:57 PM VBA PROGRAMMER PROCEDURE: ??CT HEAD WO CONTRAST, DATE/TIME OF EXAM: ??03/14/2024 3:04 PM, LOCATION ??[facility] INDICATION: R41.82: Altered mental status, unspecified altered mental status type ADDITIONAL CLINICAL INFORMATION: Ordering Provider Reason For Exam: ??[facility] Technologist Note: Additional: TECHNIQUE: CT of the head was performed without contrast according to standard protocol. CONTRAST: COMPARISON: 03/13/2024. FINDINGS: The presence of residual intravenous contrast decreases the sensitivity of detecting subtle changes in acute intracranial hemorrhage. Increased density of the small bilateral subdural fluid collections measuring up to 7 mm in maximum thickness in the right frontal cerebral convexities is likely related to the presence of residual contrast material. Slightly increased amount of subarachnoid hemorrhage scattered in the bilateral cerebral sulci, the solid fissures and the ambient and quadrigeminal plate cisterns. A small subdural hematoma along the left tentorial leaflet is grossly unchanged. There is mild cerebral volume loss with associated ex vacuo ventricular dilatation. The basal cisterns are patent. No midline shift. The gutierrez-white matter differentiation is normal. Extensive periventricular white matter hypoattenuation is nonspecific, but can be seen in the setting of chronic small vessel ischemic disease. There is atherosclerotic calcification of the carotid siphons. 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 No acute calvarial fracture is identified. Procedure Note Barbara Moreno MD - 03/16/2024 PROCEDURE: CT HEAD WO CONTRAST, DATE/TIME OF EXAM: 03/14/2024 3:04 PM, LOCATION [facility] INDICATION: R41.82: Altered mental status, unspecified altered mental status type ADDITIONAL CLINICAL INFORMATION: Ordering Provider Reason For Exam: [facility] Technologist Note: Additional: TECHNIQUE: CT of the head was performed without contrast according to standard protocol. CONTRAST: COMPARISON: 03/13/2024. FINDINGS: The presence of residual intravenous contrast decreases the sensitivityof detecting subtle changes in acute intracranial hemorrhage. Increased density of the small bilateral subdural fluid collections measuring up to 7 mm in maximum thickness in the right frontal cerebral convexities is likely related to the presence of residual contrast material. Slightly increased amount of subarachnoid hemorrhage scattered in the bilateral cerebral sulci, the solid fissures and the ambient and quadrigeminal plate cisterns. A small subdural hematoma along the left tentorial leaflet is grossly unchanged. There is mild cerebral volume loss with associated ex vacuo ventricular dilatation. The basal cisterns are patent. No midline shift. Thegray-white matter differentiation is normal. Extensive periventricular white matter hypoattenuation is nonspecific, but can be seen in the setting ofchronic small vessel ischemic disease. There is atherosclerotic calcification of the carotid siphons. Redemonstration of multiple chronic lacunarinfarcts in the basal ganglia The visualized portions of the orbits, paranasal sinuses, and mastoids appear normal. No acute calvarial fracture is identified. IMPRESSION: 1. Slightly increased amount of subarachnoid hemorrhage scattered in the bilateral cerebral sulci, the solid fissures and the ambient and quadrigeminal plate cisterns. 2. A small subdural hematoma along the left tentorial leaflet is grossly unchanged. 3. Increased density of the small bilateral subdural fluid collections measuring up to 7 mm in maximum thickness in the right frontal cerebral convexities is likely related to the presence of residual contrast material. No midline shift. > Interpreting Provider: Barbara Moreno MD on 03/14/2024 3:57 PM Lennie Anna MD CT ORDERABLES * (ABNORMAL) GLUCOSE - POINT OF CARE (03/14/2024 11:39 AM VBA PROGRAMMER) Glucose WB/POC 120(H) 70 - 99 mg/dL 03/14/2024 11:44 AM VBA PROGRAMMER [facility] Specimen Type Cap Fingerstick 2023 11:44 AM VBA PROGRAMMER [facility] Blood BLOOD SPECIMEN / Unknown 03/14/2024 11:39 AM VBA PROGRAMMER 03/14/2024 11:44 AM VBA PROGRAMMER Lennie Anna MD LAB - POINT OF CARE ORDERABLES [facility] [address] [place] [address], [facility] [phone] * (ABNORMAL) CALCIUM IONIZED WHOLE BLOOD (03/14/2024 9:29 AM VBA PROGRAMMER) Calcium Ionized 1.06 mmol/L 03/14/2024 9:44 AM [facility] pH 7.42 7.35 - 7.45 pH 03/14/2024 9:44 AM [facility] Ionized Calcium pH Adjusted 1.07(L) 1.19 - 1.34 mmol/L 03/14/2024 9:44 AM [facility] Blood BLOOD SPECIMEN / Unknown Venipuncture / Unknown 03/14/2024 9:29 AM VBA PROGRAMMER 03/14/2024 9:32 AM [facility] Lennie Anna MD LAB - CHEMISTRY ORDERABLES Performing Organization Address City/State/[facility] Co de Phone Number [phone] [place] [address], [facility] [phone] * (ABNORMAL) BLOOD GASES VASILIY + COOX PANEL (03/14/2024 9:29 AM VBA PROGRAMMER) pH Venous 7.42 7.32 - 7.42 pH 03/14/2024 9:43 AM [facility] pO2 Venous 133(H) 35 - 40 mmHg 03/14/2024 9:43 AM [facility] pCO2 Venous 35(L) 40 - 50 mmHg 03/14/2024 9:43 AM [facility] HCO3 Venous 22.7 20 - 30 mmol/L 03/14/2024 9:43 AM [facility] Base Excess Venous -1.4 -2.0 - 2.0 mmol/L 03/14/2024 9:43 AM [facility] Oxyhemoglobin Venous 96.5 % 02/21 9:43 AM [facility] Deoxyhemoglobin (HHB) Venous % <1.0 % 03/14/2024 9:43 AM [facility] Methemoglobin 1.3 0.0 - 2.0 % 03/14/2024 9:43 AM [facility] Carboxyhemoglobin 1.3 0.0 - 2.0 % 2023 9:43 AM [facility] O2 Content Venous 14.0 Interpret within clinical context ml/dL 03/14/2024 9:43 AM [facility] Hemoglobin by COOX 10.1(L) 12.0 - 15.6 g/dL 03/14/2024 9:43 AM [facility] O2 Saturation Venous 99 >=70 % 02/21 9:43 AM [facility] FI O2 Mixed Venous 40.0 % 2023 9:43 AM [facility] Blood BLOOD SPECIMEN / Unknown Venipuncture / Unknown 03/14/2024 9:29 AM [facility] 03/14/2024 9:32 AM [facility] - 03/14/2024 9:43 AM [facility] Carboxyhemoglobin Normal Concentration: Non-smokers: 0-2%; Smokers: 0-9%; Toxic: >20% Lennie Anna MD LAB - BLOOD GAS ES ORDERABLES [facility] [address] [place] [address], [facility] [phone] * (ABNORMAL) CBC W/O DIFFERENTIAL (03/14/2024 9:22 AM [facility]) WBC 30.6(H) 4.0 - 10.7 x10E9/L 03/14/2024 9:53 AM [facility] RBC Count 3.22(L) 3.90 - 5.20 x10E12/L 03/14/2024 9:53 AM [facility] Hemoglobin 9.9(L) 11.9 - 15.8 g/dL 03/14/2024 9:53 AM [facility] Hematocrit 30.4(L) 34.8 - 46.1 % 03/14/2024 9:53 AM [facility] MCV 94.4 80.0 - 98.0 fL 03/14/2024 9:53 AM [facility] MCH 30.7 26.7 - 33.6 pg 03/14/2024 9:53 AM [facility] MCHC 32.6 31.7 - 36.3 g/dL 03/14/2024 9:53 AM [facility] RDW-CV 13.5 11.3 - 14.8 % 03/14/2024 9:53 AM [facility] Platelet Count 159 150 - 420 x10E9/L 03/14/2024 9:53 AM [facility] MPV 11.5(H) 7.8 - 11.4 fL 03/14/2024 9:53 AM [facility] Blood BLOOD SPECIMEN / Unknown Venipuncture / Unknown 03/14/2024 9:22 AM VBA PROGRAMMER 03/14/2024 9:26 AM VBA PROGRAMMER Lennie Anna MD LAB - HEMATOLOG Y ORDERABLES Performing Organization Address City/[facility]/ZIP Co de Phone Number [address] [address], [facility] [phone] * PHOSPHORUS BLOOD (03/14/2024 7:49 AM VBA PROGRAMMER) Phosphorus 3.6 2.9 - 5.1 mg/dL 03/14/2024 8:27 AM [facility] Blood BLOOD SPECIMEN / Unknown Venipuncture / Unknown 03/14/2024 7:49 AM VBA PROGRAMMER 03/14/2024 7:58 AM VBA PROGRAMMER Lennie Anna MD LAB - CHEMISTRY ORDERABLES [address] [address], [facility] [phone] * MAGNESIUM BLOOD (03/14/2024 7:49 AM VBA PROGRAMMER) Magnesium 2.0 1.6 - 2.6 mg/dL 03/14/2024 8:27 AM [facility] Blood BLOOD SPECIMEN / Unknown Venipuncture / Unknown 03/14/2024 7:49 AM VBA PROGRAMMER 03/14/2024 7:58 AM VBA PROGRAMMER Lennie Anna MD LAB - CHEMISTRY ORDERABLES [address] [address] [phone] * (ABNORMAL) BASIC METABOLIC PANEL (CALCIUM TOTAL) (03/14/2024 7:49 AM VBA PROGRAMMER) BUN 20 7 - 26 mg/dL 03/14/2024 8:27 AM [facility] Creatinine 0.92 0.56 - 0.96 mg/dL 03/14/2024 8:27 AM [facility] Sodium 134(L) 136 - 145 mmol/L 03/14/2024 8:27 AM [facility] Potassium 4.4 3.5 - 4.5 mmol/L 03/14/2024 8:27 AM [facility] Chloride 107 98 - 107 mmol/L 03/14/2024 8:27 AM [facility] CO2 21(L) 22 - 29 mmol/L 03/14/2024 8:27 AM [facility] Glucose 148(H) 70 - 99 mg/dL 03/14/2024 8:27 AM [facility] Calcium 7.9(L) 8.4 - 10.2 mg/dL 03/14/2024 8:27 AM [facility] Anion Gap 6 6 - 16 03/14/2024 8:27 AM [facility] BUN/Creatinine Ratio 22 7 - 23 03/14/2024 8:27 AM [facility] Osmolality Calculated 283 275 - 295 mOsm/kg 03/14/2024 8:27 AM [facility] eGFR by CKD-EPI 60(L) >=90 mL/min/1.7 3 m2 03/14/2024 8:27 AM [facility] Blood BLOOD SPECIMEN / Unknown Venipuncture / Unknown 03/14/2024 7:49 AM VBA PROGRAMMER 03/14/2024 7:58 AM VBA PROGRAMMER Lennie Anna MD LAB - CHEMISTRY ORDERABLES [address] [address] [phone] * (ABNORMAL) BLOOD GASES ART + COOX PANEL (03/14/2024 7:49 AM VBA PROGRAMMER) pH Arterial 7.40 7.35 - 7.45 pH 03/14/2024 7:57 AM [facility] pO2 Arterial 177(H) 80 - 100 mmHg 03/14/2024 7:57 AM [facility] pCO2 Arterial 35 35 - 45 mmHg 7:57 AM [facility] HCO3 Arterial 21.7 20.0 - 30.0 mmol/L 03/14/2024 7:57 AM [facility] BE Arterial -2.6(L) -2.0 - 2.0 mmol/L 03/14/2024 7:57 AM [facility] Oxyhemoglobin Arterial 97.9 % 03/14/2024 7:57 AM [facility] Dexoyhemoglobin (HHB) % <1.0 % 03/14/2024 7:57 AM [facility] Methemoglobin <0.8 0.0 - 2.0 % 03/14/2024 7:57 AM [facility] Carboxyhemoglobin 1.7 0.0 - 2.0 % 2023 7:57 AM [facility] O2 Content Arterial 14.7 Interpret within clinical context ml/dL 03/14/2024 7:57 AM [facility] Hemoglobin by COOX 10.4(L) 12.0 - 15.6 g/dL 03/14/2024 7:57 AM [facility] O2 Saturation Arterial 100 90 - 100 % 03/14/2024 7:57 AM [facility] FI O2 Arterial 40.0 % 03/14/2024 7:57 AM [facility] Blood, arterial ARTERIAL BLOOD SPECIMEN / Unknown Arterial Puncture / Unknown 03/14/2024 7:49 AM VBA PROGRAMMER 03/14/2024 7:53 AM [facility] - 03/14/2024 7:57 AM [facility] Carboxyhemoglobin Normal Concentration: Non-smokers: 0-2%; Smokers: 0-9%; Toxic: >20% Lennie Anna MD LAB - BLOOD GAS ES ORDERABLES [address] [address], [facility] [phone] * CT Angio Brain (03/14/2024 6:50 AM VBA PROGRAMMER) Anatomical Region Laterality Modality Head Computed Tomogra phy 03/14/2024 9:34 AM VBA PROGRAMMER Impressions 03/14/2024 10:31 AM VBA PROGRAMMER IMPRESSION: 1.Redemonstration of sequelae of TBI was [...] 03/14/2024 10:31 AM Narrative 03/14/2024 10:31 AM VBA PROGRAMMER PROCEDURE: ??CT ANGIO BRAIN, DATE/TIME OF EXAM: ??03/14/2024 6:51 AM, LOCATION ??[facility] INDICATION: I60.9: Subarachnoid bleed (HCC) ADDITIONAL [...] DATE/TIME OF EXAM: 03/14/2024 6:51 AM, LOCATION [facility] INDICATION: I60.9: Subarachnoid bleed (HCC) ADDITIONAL [...] calcification of the carotid siphons and the [id number] of the vertebral arteries. No acute calvarial [...] 10:31AM Lennie Anna MD CT ORDERABLES * HEMOGLOBIN A1C (03/14/2024 5:50 AM VBA PROGRAMMER) Hemoglobin A1c 5.0 <=5.6 % 03/14/2024 9:30 AM [facility] Estimated Average Glucose 97 mg/dL 03/14/2024 9:30 AM [facility] Comment: HbA1c Interpretation: Normal : < 5.7% Pre-diabetes: 5.7-6.4% Diabetes: Equal to or greater than 6.5% Test results diagnostic of diabetes should be repeated for confirmation. Treatment target values recommended by ADA and other clinical organizations should be used to evaluate metabolic control in patients. Reference: [place] Diabetes Association, Standards of Care in Diabetes -2020 In patients 70 years and older consider HbA1c target range of 7.0-7.5% (Reference: Wander Greene et al. JAMDA. 2012) The Sebia assay for the measurement of HbA1c is a National Glycohemoglobin Standardization Program (NGSP) certified method. Blood BLOOD SPECIMEN / Unknown Venipuncture / Unknown 03/14/2024 5:50 AM VBA PROGRAMMER 03/14/2024 5:53 AM VBA PROGRAMMER Lennie Anna MD LAB - CHEMISTRY ORDERABLES [address] [address], [place] [phone] * BLOOD TYPE VERIFICATION (03/14/2024 5:50 AM VBA PROGRAMMER) ABO Rh O POS 03/14/2024 6:3 1 AM VBA PROGRAMMER [facility] Blood Bank BLOOD SPECIMEN / Unknown Venipuncture / Unknown 03/14/2024 5:50 AM VBA PROGRAMMER 03/14/2024 5:59 AM VBA PROGRAMMER Luther Bridges MD LAB - BLOOD BANK ORD ERABLES [facility] [address] [place] [address], [place] [phone] * (ABNORMAL) URINE DRUG SCREEN IMMUNOASSAY (03/14/2024 5:23 AM [facility]) Amphetamines Screen Urine Negative Negative : < [...] Unknown Collection / Unknown 03/14/2024 5:23 AM [facility] 03/14/2024 5:53 AM [facility] - 03/14/2024 6:15 AM [facility] The Urine Toxicology Screening Panel does not screen for Propoxyphene, Meprobamate, Carisoprodol, Trazodone, mcnz-abs-xxdjqye medications and/or volatiles (Acetone, Isopropanol, Methanol or Ethylene Glycol). Ethanol, Salicylate, Acetaminophen, Tricyclic Antidepressants and several therapeutic drugs may be individually assayed in serum or plasma specimen. Toxicology testing by the [facility] is an aid to medical diagnosis and treatment of patients. No documented chain of custody was maintained. Results are intended to be used for clinical purposes only. ? Luther Bridges MD LAB - URINE CHEMISTR Y ORDERABLES Performing Organization Address [facility]/ZIP Co de Phone Number [facility] [address] [place] [address], [place] [phone] * (ABNORMAL) GLUCOSE - POINT OF CARE (03/14/2024 5:13 AM VBA PROGRAMMER) [facility] Glucose WB/POC 155(H) 70 - 99 mg/dL 03/14/2024 11:44 AM [facility] Specimen Type Cap Fingerstick 2023 11:44 AM [facility] Blood BLOOD SPECIMEN / Unknown 03/14/2024 5:13 AM VBA PROGRAMMER 03/14/2024 11:44 AM VBA PROGRAMMER Lennie Anna MD LAB - POINT OF CARE ORDERABLES Performing Organization Address [facility] Co de Phone Number [facility] [address] [place] [address], [place] [phone] * (ABNORMAL) TEG 6S PLATELET MAPPING (03/13/2024 11:48 PM VBA PROGRAMMER) Pathologist [facility] TEGPLM (Max Amplitude) Koalin 56.0 53.0 - [...] 0.0 - 17.0 % 03/14/2024 12:50 AM [facility] TEGPLM %Inhibition AA 89.9(H) 0.0 - 11.0 % 03/14/2024 12:50 AM [facility] TEGPLM %Aggregation ADP 12.8(L) 83.0 - 100.0 % 03/14/2024 12:50 AM [facility] TEGPLM % Aggregation AA 10.1(L) 89.0 - 100.0 % 03/14/2024 12:50 AM [facility] Blood BLOOD SPECIMEN / Unknown Venipuncture / Unknown 03/13/2024 11:48 PM VBA PROGRAMMER 03/13/2024 11:53 PM VBA PROGRAMMER Luther Bridges MD LAB - HEMATOLOGY ORD ERABLES [facility] [address] [place] [phone], [facility] [phone] * (ABNORMAL) TEG 6 GLOBAL HEMOSTASIS W/ LYSIS (03/13/2024 11:48 PM VBA PROGRAMMER) Citrated Kaolin R (Reaction Time) 2.4(L) 4.6 [...] 52.0 - 70.0 mm 03/14/2024 12:50 AM VBA PROGRAMMER [facility] Blood BLOOD SPECIMEN / Unknown Venipuncture / Unknown 03/13/2024 11:48 PM VBA PROGRAMMER 03/13/2024 11:53 PM VBA PROGRAMMER Luther Bridges MD LAB - HEMATOLOGY ORD ERABLES [facility] [address] [place] [address], [facility] [phone] * XR Abdomen Kub Portable (03/13/2024 11:40 PM VBA PROGRAMMER) Anatomical Region Laterality Modality Abdomen Digital Radiogra phy 03/14/2024 12:4 1 AM VBA PROGRAMMER Narrative 03/14/2024 7:08 AM VBA PROGRAMMER PROCEDURE: ??XR ABDOMEN KUB PORTABLE DATE/TIME OF EXAM: ??03/13/2024 11:41 PM Indication: W19.XXXA: Fall, initial encounter Additional History: COMPARISON: None. FINDINGS/IMPRESSION: An enteric tube is seen coursing below the diaphragm and coils in the gastric fundus with the tip projecting over the region of the fundus/GE junction. Report dictated by Jann Viera MD (senior resident care director). Argenis Guzmán MD have personally reviewed and interpreted this examination/study. > Interpreting Provider: Aregnis Morales MD on 03/14/2024 7:08 AM Procedure [...] junction. Report dictated by Jann Viera MD (senior resident care director). Argenis Guzmán MD have personally reviewed and interpreted this examination/study. 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 Report dictated by Jann Viera MD (senior resident care director). Critical findings were discussed in detail with the patient's care provider, Dr. Samson by Dr. Viera via telephone at 11:34 PM on 03/13/2024 with readback comprehension and verification. IGabe MD have personally reviewed and interpreted this examination/study. > Interpreting Provider: Gabe Page MD on 03/14/2024 6:31 AM Narrative 03/14/2024 6:31 AM VBA PROGRAMMER PROCEDURE: ??CT HEAD WO CONTRAST, CT FACIAL BONES WO CONTRAST, CT LUMBAR SPINE WO CONTRAST, CT THORACIC SPINE WO CONTRAST, CT CERVICAL SPINE WO CONTRAST, DATE/TIME OF EXAM: ??03/13/2024 10:50 PM, LOCATION ??[facility] INDICATION: Trauma EXAMINATION: 1. Computed tomography [...] DATE/TIME OF EXAM: 03/13/2024 10:50 PM, LOCATION [facility] INDICATION: Trauma EXAMINATION: 1. Computed tomography [...] findings. Report dictated by Jann Viera MD (senior resident care director). Critical findings were discussed in detail with the patient's care provider, Dr. Samson by Dr. Viera via telephone at 11:34 PM on 03/13/2024with readback comprehension and verification. I, Gabe Page MD have personally reviewed and interpretedthis examination/study. 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 Report dictated by Jann Viera MD (senior resident care director). Critical findings were discussed in detail with the patient's care provider, Dr. Samson by Dr. Viera via telephone at 11:34 PM on 03/13/2024 with readback comprehension and verification. I, Gabe Page MD have personally reviewed and interpreted this examination/study. > Interpreting Provider: Gabe Page MD on 03/14/2024 6:31 AM Narrative 03/14/2024 6:31 AM VBA PROGRAMMER PROCEDURE: ??CT HEAD WO CONTRAST, CT FACIAL BONES WO CONTRAST, CT LUMBAR SPINE WO CONTRAST, CT THORACIC SPINE WO CONTRAST, CT CERVICAL SPINE WO CONTRAST, DATE/TIME OF EXAM: ??03/13/2024 10:50 PM, LOCATION ??[facility] INDICATION: Trauma EXAMINATION: 1. Computed tomography [...] DATE/TIME OF EXAM: 03/13/2024 10:50 PM, LOCATION [facility] INDICATION: Trauma EXAMINATION: 1. Computed tomography [...] findings. Report dictated by Jann Viera MD (senior resident care director). 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 Report dictated by Jann Viera MD (senior resident care director). Critical findings were discussed in detail with the patient's care provider, Dr. Samson by Dr. Viera via telephone at 11:34 PM on 03/13/2024 with readback comprehension and verification. I, Gabe Page MD have personally reviewed and interpreted this examination/study. > Interpreting Provider: Gabe Page MD on 03/14/2024 6:31 AM Narrative 03/14/2024 6:31 AM VBA PROGRAMMER PROCEDURE: ??CT HEAD WO CONTRAST, CT FACIAL BONES WO CONTRAST, CT LUMBAR SPINE WO CONTRAST, CT THORACIC SPINE WO CONTRAST, CT CERVICAL SPINE WO CONTRAST, DATE/TIME OF EXAM: ??03/13/2024 10:50 PM, LOCATION ??[facility] INDICATION: Trauma EXAMINATION: 1. Computed tomography [...] DATE/TIME OF EXAM: 03/13/2024 10:50 PM, LOCATION [facility] INDICATION: Trauma EXAMINATION: 1. Computed tomography [...] findings. Report dictated by Jann Viera MD (senior resident care director). Critical findings were discussed in detail with the patient's care provider, Dr. Samson by Dr. Viera via telephone at 11:34 PM on 03/13/2024with readback comprehension and verification. I, Gabe Page MD have personally reviewed and interpretedthis examination/study. > Interpreting Provider: Gabe Page MD on 03/14/2024 6:31 AM Luther Bridges MD CT ORDERABLES * CT CHEST ABDOMEN PELVIS W CONT - Abdomen-pelvis trauma, blunt or penetrating (03/13/2024 10:49 PM VBA PROGRAMMER) Anatomical Region Laterality Modality Chest, Abdomen, Pelvis Computed Tomography 03/13/2024 10:4 4 PM VBA PROGRAMMER Impressions 03/14/2024 11:02 AM VBA PROGRAMMER Impression 1.An elongated area of low attenuation [...] on 03/13/2024. Report dictated by Darvin Santos MD(senior resident care director). I, Yahir Queen MD have personally reviewed and interpreted this examination/study. > Interpreting Provider: Yahir Queen MD on 03/14/2024 11:02 AM Narrative 03/14/2024 11:02 AM VBA PROGRAMMER PROCEDURE: ??CT CHEST ABDOMEN PELVIS W CONT, DATE/TIME OF EXAM: ??03/13/2024 10:50 PM, LOCATION ??[facility] INDICATION: Trauma ADDITIONAL CLINICAL INFORMATION: Ordering Provider Reason For Exam: Technologist Note: Additional: PROCEDURE: ??CT CHEST ABDOMEN PELVIS W CONT, DATE/TIME OF EXAM: 03/13/2024 10:50 PM, LOCATION ??[facility] INDICATION: Trauma COMPARISON: None. EXAMINATION: Computed [...] CONT, DATE/TIME OF EXAM:03/13/2024 10:50 PM, LOCATION [facility] INDICATION: Trauma ADDITIONAL CLINICAL INFORMATION: Ordering Provider Reason For Exam: Technologist Note: Additional: PROCEDURE: CT CHEST ABDOMEN PELVIS W CONT, DATE/TIME OF EXAM: 03/13/2024 10:50 PM, LOCATION [facility] INDICATION: Trauma COMPARISON: None. EXAMINATION: Computed [...] of the right hepatic lobe (series 4 -79). Differential includes a contusion or laceration, focal [...] on 03/13/2024. Report dictated by Darvin Santos MD(senior resident care director). Yahir Guzmán MD have personally reviewed and interpreted this examination/study. 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 Report dictated by Jann Viera MD (senior resident care director). Critical findings were discussed in detail with the patient's care provider, Dr. Samson by Dr. Viera via telephone at 11:34 PM on 03/13/2024 with readback comprehension and verification. Gabe Guzmán MD have personally reviewed and interpreted this examination/study. > Interpreting Provider: Gabe Page MD on 03/14/2024 6:31 AM Narrative 03/14/2024 6:31 AM VBA PROGRAMMER PROCEDURE: ??CT HEAD WO CONTRAST, CT FACIAL BONES WO CONTRAST, CT LUMBAR SPINE WO CONTRAST, CT THORACIC SPINE WO CONTRAST, CT CERVICAL SPINE WO CONTRAST, DATE/TIME OF EXAM: ??03/13/2024 10:50 PM, LOCATION ??[facility] INDICATION: Trauma EXAMINATION: 1. Computed tomography [...] DATE/TIME OF EXAM: 03/13/2024 10:50 PM, LOCATION [facility] INDICATION: Trauma EXAMINATION: 1. Computed tomography [...] findings. Report dictated by Jann Viera MD (senior resident care director). Critical findings were discussed in detail with the patient's care provider, Dr. Samson by Dr. Viera via telephone at 11:34 PM on 03/13/2024with readback comprehension and verification. I, Gabe Page MD have personally reviewed and interpretedthis examination/study. 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 Report dictated by Jann Viera MD (senior resident care director). Critical findings were discussed in detail with the patient's care provider, Dr. Samson by Dr. Viera via telephone at 11:34 PM on 03/13/2024 with readback comprehension and verification. I, Gabe Page MD have personally reviewed and interpreted this examination/study. > Interpreting Provider: Gabe Page MD on 03/14/2024 6:31 AM Narrative 03/14/2024 6:31 AM VBA PROGRAMMER PROCEDURE: ??CT HEAD WO CONTRAST, CT FACIAL BONES WO CONTRAST, CT LUMBAR SPINE WO CONTRAST, CT THORACIC SPINE WO CONTRAST, CT CERVICAL SPINE WO CONTRAST, DATE/TIME OF EXAM: ??03/13/2024 10:50 PM, LOCATION ??[facility] INDICATION: Trauma EXAMINATION: 1. Computed tomography [...] DATE/TIME OF EXAM: 03/13/2024 10:50 PM, LOCATION [facility] INDICATION: Trauma EXAMINATION: 1. Computed tomography [...] findings. Report dictated by Jann Viera MD (senior resident care director). Critical findings were discussed in detail with the patient's care provider, Dr. Samson by Dr. Maximiliano via telephone at 11:34 PM on 03/13/2024with readback comprehension and verification. Gabe Guzmán MD have personally reviewed and interpretedthis examination/study. > Interpreting Provider: Gabe Page MD on 03/14/2024 6:31 AM Luther Bridges MD CT ORDERABLES * XR CHEST 1VW PORTABLE (03/13/2024 10:24 PM VBA PROGRAMMER) Anatomical Region Laterality Modality Chest Digital Radiogra phy 03/14/2024 12:2 8 AM VBA PROGRAMMER Narrative 03/14/2024 7:02 AM VBA PROGRAMMER PROCEDURE: ??XR CHEST 1VW PORTABLE, DATE/TIME OF EXAM: ??03/13/2024 10:25 PM, LOCATION ??[facility] INDICATION: Trauma ADDITIONAL CLINICAL INFORMATION: Ordering Provider Reason For Exam: Comparison: No prior study is available for comparison at the time of this dictation. FINDINGS/IMPRESSION: Endotracheal tube terminates in the mid-distal thoracic trachea. Mild pulmonary vascular congestion. There is no focal consolidation, pleural effusion, or pneumothorax. The cardiomediastinal silhouette is normal for portable technique. Atherosclerotic aorta. No displaced fractures visualized. Report dictated by Jann Viera MD (senior resident care director). Argenis Guzmán MD have personally reviewed and interpreted this examination/study. > Interpreting Provider: Argenis Morales MD on 03/14/2024 7:02 AM Procedure Note Argenis Morales MD - 03/14/2024 PROCEDURE: XR CHEST 1VW PORTABLE, DATE/TIME OF EXAM: 03/13/2024 10:25PM, LOCATION [facility] INDICATION: Trauma ADDITIONAL CLINICAL INFORMATION: Ordering Provider Reason For Exam: Comparison: No prior study is available for comparison at the time ofthis dictation. FINDINGS/IMPRESSION: Endotracheal tube terminates in the mid-distal thoracic trachea. Mild pulmonary vascular congestion. There is no focal consolidation, pleural effusion, or pneumothorax. The cardiomediastinal silhouette is normal for portable technique. Atherosclerotic aorta. No displaced fractures visualized. Report dictated by Jann Viera MD (senior resident care director). I, Argenis Morales MD have personally reviewed and interpreted this examination/study. > Interpreting Provider: Argenis Morales MD on 03/14/2024 7:02 AM Luther Bridges MD DIAGNOSTIC IMAGING O RDERABLES * PTT [facility] (03/13/2024 10:09 PM VBA PROGRAMMER) APTT 23.3 23.0 - 38.4 Seconds 03/13/2024 10:40 PM [facility] Comment:Suggested therapeuti c range for full dose I.V. unfractionated heparin therapy for venous thromboembolism is 71 to 109 seconds. Blood BLOOD SPECIMEN / Unknown Venipuncture / Unknown 03/13/2024 10:09 PM VBA PROGRAMMER 03/13/2024 10:18 PM VBA PROGRAMMER Luther Bridges MD LAB - COAGULATION OR DERABLES [facility] [address] [place] [phone], [facility] [phone] * (ABNORMAL) COMPREHENSIVE METABOLIC PANEL (03/13/2024 10:09 PM VBA PROGRAMMER) BUN 21 7 - 26 mg/dL 03/13/2024 10:44 PM [facility] Creatinine 1.01(H) 0.56 - 0.96 mg/dL 03/13/2024 10:44 PM [facility] Sodium 132(L) 136 - 145 mmol/L 03/13/2024 10:44 PM [facility] Potassium 4.8(H) 3.5 - 4.5 mmol/L 03/13/2024 10:44 PM [facility] Chloride 105 98 - 107 mmol/L 03/13/2024 10:44 PM [facility] CO2 23 22 - 29 mmol/L 03/13/2024 10:44 PM [facility] Glucose 201(H) 70 - 99 mg/dL 03/13/2024 10:44 PM [facility] Calcium 8.2(L) 8.4 - 10.2 mg/dL 03/13/2024 10:44 PM [facility] Protein Total 5.4(L) 6.0 - 8.3 g/dL 03/13/2024 10:44 PM [facility] Albumin 2.8(L) 3.4 - 5.0 g/dL 03/13/2024 10:44 PM [facility] Bilirubin Total 0.8 0.2 - 1.2 mg/dL 03/13/2024 10:44 PM [facility] Alkaline Phosphatase 57 40 - 150 U/L 03/13/2024 10:44 PM [facility] ALT 9 5 - 55 U/L 03/13/2024 10:44 PM [facility] AST 16 5 - 34 U/L 03/13/2024 10:44 PM [facility] Anion Gap 4(L) 6 - 16 03/13/2024 10:44 PM [facility] BUN/Creatinine Ratio 21 7 - 23 03/13/2024 10:44 PM [facility] Osmolality Calculated 283 275 - 295 mOsm/kg 03/13/2024 10:44 PM [facility] Albumin/Globulin Ratio 1.1 1.1 - 2.3 03/13/2024 10:44 PM [facility] eGFR by CKD-EPI 54(L) >=90 mL/min/1.7 3 m2 03/13/2024 10:44 PM [facility] Blood BLOOD SPECIMEN / Unknown Venipuncture / Unknown 03/13/2024 10:09 PM VBA PROGRAMMER 03/13/2024 10:18 PM [facility] Luther Bridges MD LAB - CHEMISTRY NANCI [facility] Organization Address City/State/[facility] Co de Phone Number [facility] [address] [place] [phone], [facility] [phone] * TYPE + SCREEN PANEL (03/13/2024 10:09 PM [facility]) Antibody Screen NEG 10:57 PM [facility] BLOOD BANK LAB ABO Rh O POS 03/13/2024 10:57 PM [facility] BLOOD B[facility] LAB Blood Bank BLOOD SPECIMEN / Unknown Venipuncture / Unknown 03/13/2024 10:09 PM VBA PROGRAMMER 03/13/2024 10:19 PM VBA PROGRAMMER Luther Bridges MD LAB - BLOOD BANK ORD ERABLES Performing Organization Address [facility]/ZIP Co de Phone Number [facility]LOOD [facility] [address] [place] [phone], [facility] [phone] * PT-INR [facility] (03/13/2024 10:09 PM VBA PROGRAMMER) PT 13.9 12.1 - 14.8 Seconds 03/13/2024 10:40 PM VBA PROGRAMMER [facility] INR 1.1 See Comment 03/13/2024 10:40 PM VBA PROGRAMMER [facility] Comment:The suggested therap eutic range for standard coumadin (warfarin) therapy is an INR of 2.0-3.0. For high-risk patients (Mechanical Mitral Valve Prosthesis, etc.), the suggested prophylactic therapeutic range is an INR of 2.5-3.5. Blood BLOOD SPECIMEN / Unknown Venipuncture / Unknown 03/13/2024 10:09 PM VBA PROGRAMMER 03/13/2024 10:18 PM VBA PROGRAMMER Luther Bridges MD LAB - COAGULATION OR DERABLES Performing Organization Address [facility] Co de Phone Number [address] [phone], [facility] [phone] * LIPASE BLOOD (03/13/2024 10:09 PM VBA PROGRAMMER) Lipase 14 8 - 78 U/L 03/13/2024 10:44 PM VBA PROGRAMMER [facility] Blood BLOOD SPECIMEN / Unknown Venipuncture / Unknown 03/13/2024 10:09 PM VBA PROGRAMMER 03/13/2024 10:18 PM VBA PROGRAMMER Narrative [facility] - 03/13/2024 10:44 PM VBA PROGRAMMER Lipase results from the [employer] Al[employer] analyzer may not be comparable with other methodologies. Luther Bridges MD LAB - CHEMISTRY ORDE RABLES Performing Organization Address City/[facility]/ZIP Co de Phone Number [address] [phone], [place] [phone] * (ABNORMAL) CBC W AUTO DIFFERENTIAL (03/13/2024 10:09 PM [facility]) WBC 10.2 4.0 - 10.7 x10E9/L 03/13/2024 11:40 PM [facility] RBC Count 3.17(L) 3.90 - 5.20 x10E12/L 03/13/2024 11:40 PM [facility] Hemoglobin 9.6(L) 11.9 - 15.8 g/dL 03/13/2024 11:40 PM [facility] Hematocrit 29.8(L) 34.8 - 46.1 % 03/13/2024 11:40 PM [facility] MCV 94.0 80.0 - 98.0 fL 03/13/2024 11:40 PM [facility] MCH 30.3 26.7 - 33.6 pg 03/13/2024 11:40 PM [facility] MCHC 32.2 31.7 - 36.3 g/dL 03/13/2024 11:40 PM [facility] RDW-CV 13.4 11.3 - 14.8 % 03/13/2024 11:40 PM [facility] Platelet Count 03/13/2024 11:40 PM [facility] Comment:Platelets clumped on slide but appears decreased. Recommend repeat with a sodium citrate blue top tube. MPV 03/13/2024 11:40 PM [facility] Comment:Unable to report Neutrophil % 87.6(H) 41.0 - 74.0 % 03/13/2024 11:40 PM [facility] Lymphocyte % 6.8(L) 17.0 - 47.0 % 03/13/2024 11:40 PM [facility] Monocyte % 4.2 3.0 - 11.0 % 03/13/2024 11:40 PM [facility] Eosinophil % 0.7 0.0 - 7.0 % 03/13/2024 11:40 PM [facility] Basophil % 0.2 0.0 - 1.6 % 03/13/2024 11:40 PM [facility] Immature Granulocytes % 0.5 0.0 - 1.0 % 03/13/2024 11:40 PM [facility] Neutrophil Absolute 8.95(H) 1.60 - 7.50 x10E9/L 03/13/2024 11:40 PM [facility] Lymphocyte Absolute 0.69(L) 1.00 - 4.40 x10E9/L 03/13/2024 11:40 PM [facility] Monocyte Absolute 0.43 0.15 - 1.00 x10E9/L 03/13/2024 11:40 PM [facility] Eosinophil Absolute 0.07 0.00 - 0.60 x10E9/L 03/13/2024 11:40 PM [facility] Basophil Absolute 0.02 0.00 - 0.13 x10E9/L 03/13/2024 11:40 PM [facility] Blood BLOOD SPECIMEN / Unknown Venipuncture / Unknown 03/13/2024 10:09 PM VBA PROGRAMMER 03/13/2024 11:06 PM [facility] Luther Bridges MD LAB - HEMATOLOGY ORD ERABLES [facility] [address] [place] [phone], [facility] [phone] * ALCOHOL ETHYL BLOOD (03/13/2024 10:09 PM [facility]) Ethanol (mg/dL) <10 <10 mg/dL 10:44 PM [facility] Ethanol Calculated (g/dL) <0.010 <=0.010 g/dL 03/13/2024 10:44 PM [facility] Blood BLOOD SPECIMEN / Unknown Venipuncture / Unknown 03/13/2024 10:09 PM VBA PROGRAMMER 03/13/2024 10:18 PM [facility] - 03/13/2024 10:44 PM [facility] Ethanol Interp <10: None Detected. Depression of HY[employer]AULIC GOVERNOR ASSEMBLER: >100 mg/dl Potentially Critical: >250 mg/dl Potentially [...] Bridges MD LAB - CHEMISTRY NANCI LEÓN [facility] [address] [place] [address], [facility] [phone] * Intubation (03/13/2024 10:10 AM VBA PROGRAMMER) Narrative Luther Bridges MD - 03/13/2024 10:10 AM VBA PROGRAMMER Narinder Nevarez, ? 03/13/2024 11:02 PM Intubation Date/Time: 03/13/2024 10:10 AM Performed by: Narinder Nevarez DO Authorized by: Luther Bridges MD ?? Consent: ??Consent obtained: ??Emergent situation [place] protocol: ??Immediately prior to procedure, a time [...] Luther Bridges MD PROCEDURE/MINOR SURG ICAL ORDERABLES documented in this encounter Visit Diagnoses Diagnosis Subarachnoid bleed (HCC)- Primary Subarachnoid hemorrhage Fall, initial encounter Subarachnoid bleed (HCC) Subarachnoid hemorrhage Altered mental status, unspecified altered mental status type Respiratory failure after trauma (HCC) Endotracheal tube present Subdural hematoma (HCC) Subdural hemorrhage Acute pain Impaired mobility and ADLs Mechanical problems with limbs Trauma Injury, other and unspecified, unspecified site Altered mental status, unspecified altered mental status type Fall, initial encounter Respiratory failure after trauma (HCC) Trauma Injury, other and unspecified, unspecified site Impaired mobility and ADLs Mechanical problems with limbs Acute pain Subdural hematoma (HCC) Subdural hemorrhage documented in this encounter Administered Medications Inactive Administered Medications - up to 3 most recent administrations Medication Order MAR Action Action Date Dose Rate Site 0.9% NaCl injection 3 mL 3 mL, Intracatheter, EVERY 8 HOURS, First dose on Sat03/13/24 at 2230, Until Discontinued, Flush peripheral IV catheter with 3 mL of normal saline every 8 hours. $ Given 04/05/2024 5:16 AM VBA PROGRAMMER 3 mL $ Given 04/01/2024 6:36 AM VBA PROGRAMMER 3 mL $ Given 03/31/2024 8:06 PM VBA PROGRAMMER 3 mL 0.9% NaCl IV bolus 1,000 mL, at 983.61 mL/hr, Administer over 61 Minutes, NOW, 1 dose, On Sat03/13/24 at 2200 $ Bolus New Bag 03/13/2024 10:09 PM VBA PROGRAMMER 1,000 mL 983.61 mL/hr 0.9% NaCl IV bolus 500 mL, at 967.74 mL/hr, Administer over 31 Minutes, ONCE, 1 dose, On Sat03/14/24 at 2130 $ New Bag/Syringe 03/14/2024 10:06 PM VBA PROGRAMMER 500 mL 967.74 mL/hr 0.9% NaCl IV bolus 500 mL, at 967.74 mL/hr, Administer over 31 Minutes, ONCE, 1 dose, On Sat03/15/24 at 0230 Current Rate 03/15/2024 3:00 AM VBA PROGRAMMER 967.74 mL/hr Current Rate 03/15/2024 3:00 AM VBA PROGRAMMER 967.74 mL/h r $ New Bag/Syringe 03/15/2024 2:24 AM VBA PROGRAMMER 500 mL 967.74 mL/hr 0.9% NaCl IV bolus 500 mL, at 491.8 mL/hr, Administer over 61 Minutes, ONCE, 1 dose, On Sat03/15/24 at 0615 $ New Bag/Syringe 03/15/2024 6:05 AM VBA PROGRAMMER 500 mL 491.8 mL/hr 0.9% NaCl IV bolus 1,000 mL, at 983.61 mL/hr, Administer over 61 Minutes, ONCE, 1 dose, On Sat03/15/24 at 1745 $ New Bag/Syringe 03/15/2024 5:45 PM VBA PROGRAMMER 1,000 mL 983.61 mL/hr 0.9% NaCl IV bolus 500 mL, at 491.8 mL/hr, Administer over 61 Minutes, ONCE, 1 dose, On Sat03/16/24 at 1330 $ New Bag/Syringe 03/16/2024 1:26 PM VBA PROGRAMMER 500 mL 491.8 mL/hr acetaminophen (Tylenol) tablet 1,000 mg 1,000 mg, Oral, 3 TIMES DAILY, First dose (after last modification) on 03/21/24 at 0900, Until Discontinued, Patient preference for lesser PRN pain meds may be honored when the patient requests a less strong medication, a lower dose, or a less intrusive route of administration when the lesser drug, dose and route have been ordered for the patient. This patient request must be documented in the MAR. If both oral and IV options are ordered for the same pain severity, give oral first unless patient cannot tolerate oral intake $ Given 03/23/2024 9:01 PM VBA PROGRAMMER 1,000 mg $ Given 03/23/2024 3:47 PM VBA PROGRAMMER 1,000 mg $ Given 03/23/2024 8:46 AM VBA PROGRAMMER 1,000 mg acetaminophen (Tylenol) tablet 650 mg 650 mg, Oral, EVERY 4 HOURS, First dose on 03/14/24 at 1345, Until Discontinued, Patient preference for lesser PRN pain meds may be honored when the patient requests a less strong medication, a lower dose, or a less intrusive route of administration when the lesser drug, dose and route have been ordered for the patient. This patient request must be documented in the MAR. If both oral and IV options are ordered for the same pain severity, give oral first unless patient cannot tolerate oral intake $ Given 03/21/2024 6:13 A M VBA PROGRAMMER 650 mg $ Given 03/20/2024 7:56 PM VBA PROGRAMMER 650 mg $ Given 03/19/2024 8:34 AM VBA PROGRAMMER 650 mg acetaminophen (Tylenol) tablet 650 mg 650 mg, Oral, EVERY 4 HOURS PRN, Mild Pain, Starting on Sat03/24/24 at 0645, Until Sat04/08/24 at 1742, Patient preference for lesser PRN pain meds may be honored when the patient requests a less strong medication, a lower dose, or a less intrusive route of administration when the lesser drug, dose and route have been ordered for the patient. This patient request must be documented in the MAR. If both oral and IV options are ordered for the same pain severity, give oral first unless patient cannot tolerate oral intake $ Given 03/28/2024 8:00 P M VBA PROGRAMMER 650 mg $ Given 03/27/2024 7:50 PM VBA PROGRAMMER 650 mg albuterol-ipratropium (Duo-Neb) nebulizer solution 3 mL 3 mL, Inhalation, EVERY 4 HOURS PRN, Shortness of Breath, Wheezing, Starting on Sat04/04/24 at 1732, Until Sat04/08/24 at 1742 artificial tears ophthalmic ointment Each Eye, EVERY 8 HOURS, First dose on Sat03/13/24 at 2245, Until Discontinued, Place a small strip of ointment into the eye. Wait at least 5 minutes before administering other ophthalmic medications. $ Given 03/20/2024 5:07 AM VBA PROGRAMMER $ Given 03/19/2024 5:03 AM VBA PROGRAMMER $ Given 03/18/2024 8:01 PM VBA PROGRAMMER aspirin chew tablet 81 mg 81 mg, Oral, DAILY, First dose on Sat03/23/24 at 0900, Until Discontinued $ Given 04/08/2024 10:59 AM VBA PROGRAMMER 81 mg $ Given 04/07/2024 8:03 AM VBA PROGRAMMER 81 mg $ Given 04/06/2024 8:07 AM VBA PROGRAMMER 81 mg atorvastatin (Lipitor) tablet 20 mg 20 mg, Enteral Tube, AT BEDTIME, First dose on Sat03/17/24 at 2100, Until Discontinued $ Given 03/20/2024 9:09 PM VBA PROGRAMMER 20 mg NG Tu be $ Given 03/18/2024 7:59 PM VBA PROGRAMMER 20 mg OG Tube $ Given 03/17/2024 8:25 PM VBA PROGRAMMER 20 mg OG Tube atorvastatin (Lipitor) tablet 20 mg 20 mg, Oral, AT BEDTIME, First dose (after last modification) on 03/21/24 at 2100, Until Discontinued $ Given 04/07/2024 9:16 PM VBA PROGRAMMER 20 mg $ Given 04/06/2024 8:18 PM VBA PROGRAMMER 20 mg $ Given 04/05/2024 9:00 PM VBA PROGRAMMER 20 mg bacitracin topical ointment Topical, 3 TIMES DAILY, 15 doses, First dose on Sat03/14/24 at 0945, Last dose on Sat03/18/24 at 2100, Apply to forehead laceration $ Given 03/18/2024 8:01 PM VBA PROGRAMMER $ Given 03/18/2024 2:01 PM VBA PROGRAMMER $ Given 03/18/2024 7:58 AM VBA PROGRAMMER calcium gluconate 1 g in 50 mL NaCl 0.675% 1 g, at 100 mL/hr, Intravenous, ONCE, 1 dose, On Sat03/17/24 at 0930 $ New Bag/Syringe 03/17/2024 9:40 AM VBA PROGRAMMER 1 g 100 mL/hr calcium gluconate 1 g in 50 mL NaCl 0.675% 1 g, at 100 mL/hr, Intravenous, ONCE, 1 dose, On Sat03/17/24 at 1130 $ New Bag/Syringe 03/17/2024 12:05 PM VBA PROGRAMMER 1 g 100 mL/hr calcium gluconate 2 g in 100 mL NaCl 0.675% 2 g, at 100 mL/hr, Intravenous, ONCE, 1 dose, On 03/14/24 at 1930 $ New Bag/Syringe 03/14/2024 10:01 PM VBA PROGRAMMER 2 g 100 mL/hr calcium gluconate 2 g in 100 mL NaCl 0.675% 2 g, at 100 mL/hr, Intravenous, ONCE, 1 dose, On 03/15/24 at 1745, May infuse with BACKFLUSHED common tubing. If IV infiltrates, follow extravasation policy. $ New Bag/Syringe 03/15/2024 5:42 PM VBA PROGRAMMER 2 g 100 mL/hr carvedilol (Coreg) tablet 25 mg 25 mg, Oral, 2 TIMES DAILY WITH MEALS, First dose on Sat03/22/24 at 1630, Until Discontinued, Take with food $ Given 04/08/2024 10:59 AM VBA PROGRAMMER 25 mg $ Given 04/07/2024 5:04 PM VBA PROGRAMMER 25 mg $ Given 04/07/2024 8:03 AM VBA PROGRAMMER 25 mg ceFAZolin (Ancef) 2 g in sterile water (PF) 20 mL syringe 2 g, Intravenous, NOW, 1 dose, On Sat03/13/24 at 2215, Infuse over 3-5 minutes. Dilute vial with 20 ml solution for a final concentration of 100 mg/ml., Indication for anti-infective therapy: Surgical prophylaxis, Site of anti-infective therapy: Wound $ Given 03/13/2024 10:17 PM VBA PROGRAMMER 2 g cefTRIAXone (Rocephin) syringe 2,000 mg 2,000 mg (2 g), Intravenous, EVERY 24 HOURS, 5 doses, First dose on Tu03/24/24 at 0715, Last dose on 03/28/24 at 0900, Infuse over 3-5 minutes. Mix with 19.2 mL diluent for final concentration 2000 mg/20 mL., Indication for anti-infective therapy: Documented infection, Site of anti-infective therapy: Urine/Genitourinary $ Given 03/28/2024 8:53 AM VBA PROGRAMMER 2,000 mg $ Given 03/27/2024 8:25 AM VBA PROGRAMMER 2,000 mg $ Given 03/26/2024 9:03 AM VBA PROGRAMMER 2,000 mg chlorhexidine (Peridex) 0.12 % oral solution 15 mL 15 mL, Mouth/Throat, 2 TIMES DAILY, First dose on Sat03/13/24 at 2245, Until Discontinued, Swab oral mucosa for 30 seconds. Do not brush teeth immediately after use. . WASTE DISPOSAL INSTRUCTIONS: Black Bin Disposal required. $ Given 03/20/2024 8:48 AM VBA PROGRAMMER 15 mL $ Given 03/19/2024 9:42 PM VBA PROGRAMMER 15 mL $ Given 03/19/2024 8:34 AM VBA PROGRAMMER 15 mL dexmedeTOMIDine (Precedex) 400 mcg in 100 mL NS infusion premix 0-1.5 mcg/kg/hr ? 68 kg (0-25.5 mL/hr), Intravenous, CONTINUOUS, Starting on Sat03/15/24 at 1400, Until 03/20/24 at 1309, Above RASS goal: Assess and treat pain first if CPOT greater than 2. If agitation persists Increase rate per order. At RASS goal and no change in 4 hours: Decrease rate per order. Below RASS goal (unarousable): Hold infusion until at goal RASS then restart at 50% previous rate. If significant hemodynamic changes notify physician for instructions. Notify physician for inability to reach goals despite maximal dosage. Note: The CPOT goal should be achieved first with the use of the ordered analgesic medication prior to targeting RASS goal with the sedative. Hold medication and call physician if HR less than 40 bpm, Titration Parameters: Standard Parameters, Indication: Sedation, Initiate infusion at: 0.2 mcg/kg/hr, Titrate infusion by: 0.1 mcg/kg/hr, Titrate every: 30 minutes, Notify Physician: unable to maintain ordered clinical parameter despite max dose, Titration Priority: 1st, Restart Infusion: Medication may be restarted at last dose/rate administered before titrated to off. If infusion has been off for 4 or more hours, contact provider prior to restarting infusion. Rate Change 03/18/2024 10:44 PM VBA PROGRAMMER 0.2 mcg/kg/hr 3.4 mL/hr Rate Change 03/18/2024 10:15 PM VBA PROGRAMMER 0.3 mcg/kg/hr 5.1 mL/h r $ New Bag/Syringe 03/18/2024 9:17 PM VBA PROGRAMMER 0.2 mcg/kg/hr 3.4 mL/hr dextrose 5 % and 0.45% NaCl infusion at 100 mL/hr, Intravenous, CONTINUOUS, Starting on Marily 03/19/24 at 1900, Until 03/21/24 at 0736 $ New Bag/Syringe 03/21/2024 12:47 AM VBA PROGRAMMER 100 mL/h r Current Rate 03/20/2024 4:00 PM VBA PROGRAMMER 100 mL/hr Current Rate 03/20/2024 3:41 PM VBA PROGRAMMER 100 mL/hr dextrose IV 12.5 g 12.5 g, Intravenous, PRN, Other, Bedside Glucose less than 70 mg/dL -If NOT able to eat and/or NPO and with IV Access, Starting on 03/14/24 at 0047, Until 04/08/24 at 1742, If NOT able to eat and/or NPO and with IV Access: For Bedside Glucose 54-69 mg/dL give 12.5 g Dextrose IV STAT For Bedside Glucose LESS than 54 mg/dl verify with a second Bedside Glucose (from a different site) and give 25 g Dextrose IV STAT Re-check and Re-treat blood glucose EVERY , 10-25 minutes until blood glucose GREATER than or equal to 80 mg/dl. NOTIFY PROVIDER OF HYPOGLYCEMIC EVENT. $ Given 03/19/2024 6:20 PM VBA PROGRAMMER 12.5 g dextrose IV 25 g 25 g, Intravenous, PRN, Other, Bedside Glucose less than 70 mg/dL -If NOT able to eat and/or NPO and with IV Access, Starting on 03/14/24 at 0047, Until Sat04/08/24 at 1742, If NOT able to eat and/or NPO and with IV Access: For Bedside Glucose LESS than 54 mg/dl verify with a second Bedside Glucose (from a different site) and give 25 g Dextrose IV STAT Re-check and Re-treat blood glucose EVERY - 10-25 minutes until blood glucose GREATER than or equal to 80 mg/dl. - If repeat bedside glucose 54-79 give 12.5 g Dextrose IV STAT NOTIFY PROVIDER OF HYPOGLYCEMIC EVENT. enoxaparin (Lovenox) injection 30 mg 30 mg, Subcutaneous, EVERY 12 HOURS, First dose on Sat03/15/24 at 1400, Until Discontinued, (for prefilled syringes) do not expel air bubble from the syringe prior to the injection Remind Patient to not rub injection site. Could cause hematoma. $ Given 04/08/2024 10:59 AM VBA PROGRAMMER 30 mg Abd Left Upper Quadr ant $ Given 04/07/2024 9:16 PM VBA PROGRAMMER 30 mg Ab d Left Lower Quadrant $ Given 04/07/2024 8:03 AM VBA PROGRAMMER 30 mg Ab dominal Tissue etomidate (Amidate) injection Intravenous, CODE PRN, Starting on Sat03/13/24 at 2202, Until Sat03/13/24 at 2202 $ Given 03/13/2024 10:02 PM VBA PROGRAMMER 20 mg famotidine (Pepcid) injection 20 mg 20 mg, Intravenous, DAILY, First dose on 03/14/24 at 0900, Until Discontinued, Dilute with 0.9% NaCl, D5W solution, or SWI to a volume of 5 to 10 mL and administer over at least 2 minutes. $ Given 03/17/2024 8:01 AM VBA PROGRAMMER 20 mg $ Given 03/16/2024 8:16 AM VBA PROGRAMMER 20 mg $ Given 03/15/2024 8:34 AM VBA PROGRAMMER 20 mg famotidine (Pepcid) tablet 20 mg 20 mg, Enteral Tube, DAILY, First dose on Sat03/18/24 at 0900, Until Discontinued $ Given 03/19/2024 8:34 AM VBA PROGRAMMER 20 mg OG Tu be $ Given 03/18/2024 7:58 AM VBA PROGRAMMER 20 mg G Tube fentaNYL (Sublimaze) bolus from bag 50 mcg 50 mcg, Intravenous, BOLUS FROM BAG PRN, CPOT goal, Starting on Sat03/13/24 at 2205, Until Sat03/20/24 at 1309, Bolus from bag every 5 minutes to reach CPOT goal. Can give bolus before anticipated painful stimuli. Contact physician if unable to achieve CPOT goal after administering 4 boluses. If a sedative is ordered, titrate/administer opioid first to achieve CPOT goal, followed by titration/administration of sedative to achieve RASS goal. Bolus From Bag 03/15/2024 9:32 AM VBA PROGRAMMER 50 mcg Bolus From Bag 03/15/2024 9:27 AM VBA PROGRAMMER 50 mcg Bolus From Bag 03/15/2024 9:14 AM VBA PROGRAMMER 50 mcg fentaNYL 2500 mcg/50mL (Sublimaze) infusion 0-200 mcg/hr (0-4 mL/hr), Intravenous, CONTINUOUS, Starting on Sat03/13/24 at 2245, Until Sat03/20/24 at 1309, Above CPOT goal: bolus every 5 minutes until goal CPOT then increase rate per order. Can give bolus before anticipated painful stimuli. Contact physician if unable to achieve CPOT goal after administering 4 boluses. At CPOT goal and no change in 4 hours: Decrease rate per order If significant hemodynamic changes, notify physician for instructions. Notify physician for inability to reach goals despite maximal dosage. If a sedative is ordered, titrate/administer opioid first to achieve CPOT goal, followed by titration/administration of sedative to achieve RASS goal., Titration Parameters: Analgesia, Indication: Analgesia, Initiate infusion at: 25 mcg/hr, Titrate infusion by: 25 mcg/hr, Titrate every: 5 minutes, Notify physician if: Unachievable CPOT goal despite max dose Current Rate 03/16/2024 7:15 AM VBA PROGRAMMER 25 mcg/hr 0.5 mL/hr Current Rate 03/16/2024 5:49 AM VBA PROGRAMMER 25 mcg/hr 0.5 mL/hr Current Rate 03/16/2024 3:15 AM VBA PROGRAMMER 25 mcg/hr 0.5 mL/hr glucagon (Glucagen) injection 1 mg 1 mg, Subcutaneous, PRN, Bedside Glucose less than 70 mg/dL - If NOT able to eat and/or NPO and withOUT IV Access, Starting on 03/14/24 at 0047, Until Sat04/08/24 at 1742, If NOT able to eat and/or NPO and NO IV Access: For Bedside glucose 54-69 mg/dL ? - Give 1 mg subcutaneous For Bedside Glucose LESS than 54 mg/dl ? -?verify with a second bedside glucose (from a different site) ? -?Give 1 mg subcutaneous Re-check and Re-treat blood glucose EVERY 10-25 minutes until blood glucose GREATER than or equal to 80 mg/dl.? NOTIFY PROVIDER OF HYPOGLYCEMIC EVENT. Reconstitute vial with 1 mL of sterile water for injection for a final concentration of 1 mg/mL; shake vial gently; use immediately and discard unused portion glucose (Diabetic Use) oral gel Oral, PRN, Other, Bedside Glucose less than 70 mg/dL, Starting on 03/14/24 at 0047, Until Sat04/08/24 at 1742, If able to take oral medications: For Bedside Glucose 54 - 69 mg/dL Give 15 grams of oral carbohydrates - 1 glucose gel (see MAR) If patient refuses glucose gel, then offer: - 4 ounces of fruit juice OR - 4 ounces non-diet soda OR - 8 ounces of fat-free milk For Bedside Glucose LESS than 54 mg/dL verify with a second Bedside Glucose (from a different site) - If pt is symptomatic, do not delay treatment - If accuracy of the POC glucose is in question, confirm glucose with a STAT laboratory test Give 30 grams of oral carbohydrates - 2 glucose gels (see MAR) If patient refuses glucose gel, then offer: - 8 ounces of fruit juice OR - 8 ounces non-diet soda OR - 16 ounces of fat-free milk Re-check and Re-treat blood glucose EVERY 10-25 minutes until blood glucose GREATER than or equal to 80 mg/dl. - If on recheck, bedside glucose 54-79 mg/dL - Give 15 grams of oral carbohydrates (see above for choices) NOTIFY PROVIDER OF HYPOGLYCEMIC EVENT. haloperidol lactate (Haldol) injection 2 mg 2 mg, Intravenous, EVERY 8 HOURS PRN, Agitation, Starting on Sat03/20/24 at 1323, Until Tu03/24/24 at 0645 $ Given 03/20/2024 2:58 PM VBA PROGRAMMER 2 mg insulin aspart (NovoLOG) pen 0-6 Units 0-6 Units, Subcutaneous, EVERY 6 HOURS, First dose on 03/14/24 at 0130, Until Discontinued, Low Dose: Correction Insulin BG (mg/dL) Corrective Action LESS than 70 follow Hypoglycemic guidelines 70-180 NO Correction insulin 181-220 GIVE 2 units of insulin 221-260 GIVE 3 units of insulin 261-300 GIVE 4 units of insulin 301-350 GIVE 5 units of insulin Greater than 350 GIVE 6 units of insulin and notify physician DO NOT HOLD if Patient is NPO. If patient has orders for Mealtime insulin combine and give at same time. $ Given 03/16/2024 6:00 AM VBA PROGRAMMER 2 Units Abd Left Upper Quadrant iopamidol (Isovue 370) 76 % contrast Intravenous, CONTRAST ONCE, Starting on Sat03/13/24 at 2206, Until 03/15/24 at 2205 $ Given - Contrast 03/13/2024 10:48 PM VBA PROGRAMMER 100 mL iopamidol (Isovue 370) 76 % contrast Intravenous, CONTRAST ONCE, Starting on Sat03/14/24 at 0551, Until Sat03/16/24 at 0550 $ Given - Contrast 03/14/2024 6:41 AM VBA PROGRAMMER 75 mL labetalol (Normodyne; Trandate) injection 2.5 mg 2.5 mg, Intravenous, ONCE, 1 dose, On Sat03/20/24 at 1945, Max IV dose is 300mg/24 hours. $ Given 03/20/2024 7:52 PM VBA PROGRAMMER 2.5 mg lactated ringers IV bolus 1,000 mL, at 983.61 mL/hr, Administer over 61 Minutes, ONCE, 1 dose, On 03/14/24 at 0745 $ New Bag/Syringe 03/14/2024 9:34 AM VBA PROGRAMMER 1,000 mL 983.61 mL/hr lansoprazole (disintegrating) (Prevacid Solutab) tablet 15 mg 15 mg, Oral, DAILY BEFORE BREAKFAST, First dose on Sat03/21/24 at 1130, Until Discontinued, For admin via NG tube= in an oral syringe dissolve 30mg tab in 10ml water, shake gently, give via NG tube within 15 min, flush tube with water, DO NOT CRUSH TABLET, dissolve only. $ Given 04/08/2024 5:13 AM VBA PROGRAMMER 15 mg $ Given 04/07/2024 6:01 AM VBA PROGRAMMER 15 mg $ Given 04/06/2024 5:09 AM VBA PROGRAMMER 15 mg losartan (Cozaar) tablet 25 mg 25 mg, Oral, DAILY, First dose on Sat03/23/24 at 0945, Until Discontinued $ Given 03/30/2024 8:28 AM VBA PROGRAMMER 25 mg $ Given 03/29/2024 10:08 AM VBA PROGRAMMER 25 mg $ Given 03/28/2024 8:53 AM VBA PROGRAMMER 25 mg losartan (Cozaar) tablet 50 mg 50 mg, Oral, DAILY, First dose (after last modification) on Sat03/31/24 at 0900, Until Discontinued $ Given 04/08/2024 10:58 AM VBA PROGRAMMER 50 mg $ Given 04/07/2024 8:03 AM VBA PROGRAMMER 50 mg $ Given 04/06/2024 8:07 AM VBA PROGRAMMER 50 mg melatonin tablet 3 mg 3 mg, Oral, AT BEDTIME, First dose on Sat03/20/24 at 2100, Until Discontinued $ Given 04/07/2024 9:16 PM VBA PROGRAMMER 3 mg $ Given 04/06/2024 8:18 PM VBA PROGRAMMER 3 mg $ Given 04/05/2024 9:00 PM VBA PROGRAMMER 3 mg norepinephrine (Levophed) 8 mg/250 ml D5 infusion premix ADS Med 1 dose, Starting on Sat03/14/24 at 0722, Until Sat03/14/24 at 0936, Created by cabinet override Central line required if infused longer than 48 hours or infusing multiple vasopressors norepinephrine (Levophed) 8 mg/250 ml D5 infusion premix 0-0.4 mcg/kg/min ? 68 kg (0-51 mL/hr), Intravenous, CONTINUOUS, Starting on Sat03/14/24 at 0800, Until Sat03/20/24 at 1309, Central line required if infused longer than 48 hours or infusing multiple vasopressors, Titration Parameters: Standard Parameters, Indication: Hypotension, Initiate infusion at: 0.05 mcg/kg/min, Titrate infusion by: 0.01-0.05 mcg/kg/min, Titrate every: 1 minute, To maintain a: MAP greater than or equal to 65 mmHg, Notify Physician: unable to maintain ordered clinical parameter despite max dose, Restart Infusion: Medication may be restarted at last dose/rate administered before titrated to off. If infusion has been off for 4 or more hours, contact provider prior to restarting infusion. Rate Change 03/16/2024 6:13 PM VBA PROGRAMMER 0.01 mcg/kg/min 1.28 mL/hr Rate Change 03/16/2024 4:52 PM VBA PROGRAMMER 0.03 mcg/kg/min 3.83 mL /hr Rate Change 03/16/2024 2:04 PM VBA PROGRAMMER 0.04 mcg/kg/min 5.1 mL/ hr oxyCODONE (immediate release) (Roxicodone) tablet 2.5 mg 2.5 mg, Enteral Tube, EVERY 4 HOURS PRN, Moderate Pain, Starting on Sat03/16/24 at 1316, Until 03/21/24 at 0736, Patient preference for lesser PRN pain meds may be honored when the patient requests a less strong medication, a lower dose, or a less intrusive route of administration when the lesser drug, dose and route have been ordered for the patient. This patient request must be documented in the MAR. If both oral and IV options are ordered for the same pain severity, give oral first unless patient cannot tolerate oral intake $ Given 03/17/2024 3:38 PM VBA PROGRAMMER 2.5 mg G Tub e oxyCODONE (immediate release) (Roxicodone) tablet 5 mg 5 mg, Enteral Tube, EVERY 4 HOURS PRN, Severe Pain, Starting on Sat03/16/24 at 1316, Until 03/21/24 at 0736, Patient preference for lesser PRN pain meds may be honored when the patient requests a less strong medication, a lower dose, or a less intrusive route of administration when the lesser drug, dose and route have been ordered for the patient. This patient request must be documented in the MAR. If both oral and IV options are ordered for the same pain severity, give oral first unless patient cannot tolerate oral intake $ Given 03/18/2024 8:00 PM VBA PROGRAMMER 5 mg OG Tu be $ Given 03/18/2024 3:22 AM VBA PROGRAMMER 5 mg OG Tube $ Given 03/17/2024 8:25 PM VBA PROGRAMMER 5 mg OG Tube perflutren lipid microsphere (Definity) injection 0.5 mL 0.5 mL, Intravenous, INTRA-PROCEDURE MULTIPLE, Starting on Sat03/17/24 at 1132, Until Sat03/17/24 at 1531, For Echo Procedure - Per Protocol Give slowly Shake well before using. $ Given 03/17/2024 11:32 AM VBA PROGRAMMER 0.5 mL polyethylene glycol 3350 (Miralax) packet 17 g 17 g, Enteral Tube, DAILY, First dose on 03/14/24 at 0900, Until Discontinued, Mix in 8 ounces of water, juice, soda, coffee or tea prior to administration $ Given 03/18/2024 7:58 AM VBA PROGRAMMER 17 g G Tube $ Given 03/17/2024 8:01 AM VBA PROGRAMMER 17 g G Tube $ Given 03/16/2024 8:17 AM VBA PROGRAMMER 17 g OG Tube polyethylene glycol 3350 (Miralax) packet 17 g 17 g, Oral, DAILY, First dose (after last modification) on Sat03/22/24 at 0900, Until Discontinued, Mix in 8 ounces of water, juice, soda, coffee or tea prior to administration $ Given 04/08/2024 11:04 AM VBA PROGRAMMER 17 g $ Given 04/06/2024 8:07 AM VBA PROGRAMMER 17 g $ Given 04/05/2024 8:52 AM VBA PROGRAMMER 17 g potassium phosphate 15 mmol in 250 mL bolus 15 mmol, at 62.5 mL/hr, Administer over 4 Hours, Intravenous, ONCE, 1 dose, On 03/16/24 at 0230, 3 mmol phosphate = 4.4 mEq potassium Current Rate 03/16/2024 7:15 AM VBA PROGRAMMER 62.5 mL/hr Current Rate 03/16/2024 5:49 AM VBA PROGRAMMER 62.5 mL/hr $ New Bag/Syringe 03/16/2024 3:37 AM VBA PROGRAMMER 15 mmol 62.5 m L/hr propofol (Diprivan) 1000 mg in 100 mL infusion ADS Med 1 dose, Starting on Sat03/13/24 at 2205, Until Sat03/13/24 at 2212, Created by cabinet override Vial and Tubing should be changed and/or discarded every 12 hours. propofol (Diprivan) infusion 0-50 mcg/kg/min ? 68 kg (0-20.4 mL/hr), Intravenous, CONTINUOUS, Starting on Sat03/13/24 at 2245, Until Sat03/15/24 at 1322, Patient must be mechanically ventilated Above RASS goal: Assess and treat pain first if CPOT greater than 2. If agitation persists increase rate per order. At RASS goal and no change in 4 hours: Decrease rate per order. Below RASS goal (unarousable): Hold infusion until at goal RASS then restart at 50% previous rate. If significant hemodynamic changes notify physician for instructions. Notify physician for inability to reach goals despite maximal dosage. Note: The CPOT goal should be achieved first with the use of the ordered analgesic medication prior to targeting RASS goal with the sedative. Vial and Tubing should be changed and/or discarded every 12 hours., Titration Parameters: Standard Parameters, Indication: Sedation, Initiate infusion at: 5 mcg/kg/min, Titrate infusion by: 5 mcg/kg/min, Titrate every: 2 minutes, Notify physician if: Unachievable RASS goal despite max dose, Titration Priority: 1st, Restart Infusion: Medication may be restarted at last dose/rate administered before titrated to off. If infusion has been off for 4 or more hours, contact provider prior to restarting infusion. Rate Change 03/15/2024 1:19 PM VBA PROGRAMMER 10 mcg/kg/min 4.08 mL/hr $ New Bag/Syringe 03/15/2024 1:13 PM VBA PROGRAMMER 15 mcg/kg/min 6.1 2 mL/hr Rate Change 03/15/2024 12:54 PM VBA PROGRAMMER 15 mcg/kg/min 6.12 mL/ hr QUEtiapine (SEROquel) tablet 12.5 mg 12.5 mg, Oral, 2 TIMES DAILY (,16), First dose on Sat03/24/24 at 0700, Until Discontinued $ Given 03/24/2024 9:30 AM VBA PROGRAMMER 12.5 mg QUEtiapine (SEROquel) tablet 12.5 mg 12.5 mg, Oral, AT BEDTIME, First dose (after last modification) on Sat03/24/24 at 2100, Until Discontinued $ Given 03/24/2024 9:55 PM VBA PROGRAMMER 12.5 mg QUEtiapine (SEROquel) tablet 50 mg 50 mg, Oral, Once, 1 dose, On Sat03/20/24 at 1930 $ Given 03/20/2024 7:56 PM VBA PROGRAMMER 50 mg rocuronium (Zemuron) injection Intravenous, CODE PRN, Starting on Sat03/13/24 at 2202, Until Sat03/13/24 at 2202 $ Given 03/13/2024 10:02 PM VBA PROGRAMMER 100 mg senna (Senokot) tablet 8.6 mg 8.6 mg, Enteral Tube, DAILY, First dose on Sat03/14/24 at 0900, Until Discontinued $ Given 03/18/2024 7:58 AM VBA PROGRAMMER 8.6 mg G Tub e $ Given 03/17/2024 8:01 AM VBA PROGRAMMER 8.6 mg G Tube $ Given 03/16/2024 8:17 AM VBA PROGRAMMER 8.6 mg OG Tube senna (Senokot) tablet 8.6 mg 8.6 mg, Oral, DAILY, First dose (after last modification) on Sat03/22/24 at 0900, Until Discontinued $ Given 03/30/2024 8:28 AM VBA PROGRAMMER 8.6 mg $ Given 03/29/2024 10:08 AM VBA PROGRAMMER 8.6 mg $ Given 03/28/2024 8:53 AM VBA PROGRAMMER 8.6 mg sodium phosphate 15 mmol in dextrose 5 % 255 mL bolus 15 mmol, at 42.5 mL/hr, Administer over 6 Hours, Intravenous, ONCE, 1 dose, On Sat03/18/24 at 0200 $ New Bag/Syringe 03/18/2024 2:35 AM VBA PROGRAMMER 15 mmol 42.5 mL/hr sodium phosphate 15 mmol in dextrose 5 % 255 mL bolus 15 mmol, at 42.5 mL/hr, Administer over 6 Hours, Intravenous, ONCE, 1 dose, On Sat03/19/24 at 0415 Current Rate 03/19/2024 10:00 AM VBA PROGRAMMER 42.5 mL/hr $ New Bag/Syringe 03/19/2024 5:00 AM VBA PROGRAMMER 15 mmol 42.5 m L/hr tamsulosin (Flomax) capsule 0.4 mg 0.4 mg, Oral, DAILY, First dose on Sat03/26/24 at 0900, Until Discontinued, At the same time every day after a meal. Do not crush or chew. May open capsule and administer contents per tube. J-tube administration is not appropriate as the small lumen would necessitate crushing of granules. $ Given 04/08/2024 10:59 AM VBA PROGRAMMER 0.4 mg $ Given 04/07/2024 8:03 AM VBA PROGRAMMER 0.4 mg $ Given 04/06/2024 8:07 AM VBA PROGRAMMER 0.4 mg traZODone (Desyrel) tablet 25 mg 25 mg, Oral, AT BEDTIME PRN, Insomnia, Starting on Sat03/31/24 at 1143, Until Sat04/08/24 at 1742 $ Given 04/07/2024 9:16 PM VBA PROGRAMMER 25 mg $ Given 04/06/2024 8:18 PM VBA PROGRAMMER 25 mg $ Given 04/03/2024 8:23 PM VBA PROGRAMMER 25 mg white petroleum (Vaseline) gel Topical, 3 TIMES DAILY, 42 doses, First dose on Sat03/31/24 at 1400, Last dose on Sat04/14/24 at 0900, Apply to forehead laceration $ Given 04/08/2024 11:04 AM VBA PROGRAMMER $ Given 04/07/2024 9:19 PM VBA PROGRAMMER $ Given 04/07/2024 1:34 PM VBA PROGRAMMER documented in this encounter Active and Recently Administered Medications Times are shown in VBA PROGRAMMER. Scheduled Medication Order 04/06/2024 04/07/2024 04/08/2024 aspirin chew tablet 81 mg 81 mg, Oral, DAILY, First dose on Sat03/23/24 at 0900, Until Discontinued 08 ($ Given - Provider: Lorena Acosta RN) 08 ($ Given - Provider: Lorena Acosta RN) 1059 ($ Given - Provider: Delia Lewis RN) atorvastatin (Lipitor) tablet 20 mg 20 mg, Oral, AT BEDTIME, First dose (after last modification) on 03/21/24 at 2100, Until Discontinued 2017 ($ Given - Provider: Esdras Cowart RN) 2115 ($ Given - Provider: Esdras Cowart RN) carvedilol (Coreg) tablet 25 mg 25 mg, Oral, 2 TIMES DAILY WITH MEALS, First dose on Sat03/22/24 at 1630, Until Discontinued, Take with food 08 ($ Given - Provider: Lorena Acosta RN)1735 ($ Given - Provider: Lorena Acosta RN) 08 ($ Given - Provider: Lorena Acosta RN)170 ($ Given - Provider: Lorena Acosta RN) 1059 ($ Given - Provider: Delia Lewis, ZACH) enoxaparin (Lovenox) injection 30 mg 30 mg, Subcutaneous, EVERY 12 HOURS, First dose on 03/15/24 at 1400, Until Discontinued, (for prefilled syringes) do not expel air bubble from the syringe prior to the injection Remind Patient to not rub injection site. Could cause hematoma. 08 ($ Given - Provider: Lorena Acosta RN)2017 ($ Given - Provider: Esdras Cowart RN) 08 ($ Given - Provider: Lorena Acosta RN)2115 ($ Given - Provider: Esdras Cowart RN) 105 ($ Given - Provider: Delia Lewis, ZACH) lansoprazole (disintegrating) (Prevacid Solutab) tablet 15 mg 15 mg, Oral, DAILY BEFORE BREAKFAST, First dose on 03/21/24 at 1130, Until Discontinued, For admin via NG tube= in an oral syringe dissolve 30mg tab in 10ml water, shake gently, give via NG tube within 15 min, flush tube with water, DO NOT CRUSH TABLET, dissolve only. 0509 ($ Given - Provider: Lakshmi Traore RN) 0601 ($ Given - Provider: Esdras Cowart RN) 0513 ($ Given - Provider: Esdras Cowart RN) losartan (Cozaar) tablet 50 mg 50 mg, Oral, DAILY, First dose (after last modification) on Sat03/31/24 at 0900, Until Discontinued 08 ($ Given - Provider: Lorena Acosta RN) 08 ($ Given - Provider: Lorena Acosta RN) 105 ($ Given - Provider: Delia Lewis, ZACH) melatonin tablet 3 mg 3 mg, Oral, AT BEDTIME, First dose on Sat03/20/24 at 2100, Until Discontinued 2017 ($ Given - Provider: Esdras Cowart RN) 211 ($ Given - Provider: Esdras Cowart RN) polyethylene glycol 3350 (Miralax) packet 17 g 17 g, Oral, DAILY, First dose (after last modification) on Sat03/22/24 at 0900, Until Discontinued, Mix in 8 ounces of water, juice, soda, coffee or tea prior to administration 0807 ($ Given - Provider: Lorena Acosta RN) 0804 (Not Administered - Provider: Lorena Acosta RN - Reason: See Comments - Comment: multiple BMs within 24 hours) 1104 ($ Given - Provider: Delia Lewis RN) tamsulosin (Flomax) capsule 0.4 mg 0.4 mg, Oral, DAILY, First dose on Sat03/26/24 at 0900, Until Discontinued, At the same time every day after a meal. Do not crush or chew. May open capsule and administer contents per tube. J-tube administration is not appropriate as the small lumen would necessitate crushing of granules. 0807 ($ Given - Provider: Lorena Acosta RN) 0803 ($ Given - Provider: Lorena Acosta RN) 1059 ($ Given - Provider: Delia Lewis, ZACH) white petroleum (Vaseline) gel Topical, 3 TIMES DAILY, 42 doses, First dose on Sat03/31/24 at 1400, Last dose on Sat04/14/24 at 0900, Apply to forehead laceration 0811 ($ Given - Provider: Lorena Acosta RN)1340 ($ Given - Provider: Lorena Acosta RN)2020 ($ Given - Provider: Esdras Cowart RN) 0808 ($ Given - Provider: Lorena Acosta RN)1334 ($ Given - Provider: Lorena Acosta RN)2119 ($ Given - Provider: Esdras Cowart RN) 1104 ($ Given - Provider: Delia Lewis, ZACH)1639 (Not Administered - Provider: Delia Lewis RN - Reason: Refused-Parent/Guardi an) PRN Medication Order 04/06/2024 04/07/2024 04/08/2024 acetaminophen (Tylenol) tablet 650 mg 650 mg, Oral, EVERY 4 HOURS PRN, Mild Pain, Starting on Sat03/24/24 at 0645, Until Sat04/08/24 at 1742, Patient preference for lesser PRN pain meds may be honored when the patient requests a less strong medication, a lower dose, or a less intrusive route of administration when the lesser drug, dose and route have been ordered for the patient. This patient request must be documented in the MAR. If both oral and IV options are ordered for the same pain severity, give oral first unless patient cannot tolerate oral intake albuterol-ipratropium (Duo-Neb) nebulizer solution 3 mL 3 mL, Inhalation, EVERY 4 HOURS PRN, Shortness of Breath, Wheezing, Starting on 04/04/24 at 1732, Until Sat04/08/24 at 1742 dextrose IV 12.5 g(Linked Group 1) 12.5 g, Intravenous, PRN, Other, Bedside Glucose less than 70 mg/dL -If NOT able to eat and/or NPO and with IV Access, Starting on 03/14/24 at 0047, Until Sat04/08/24 at 1742, If NOT able to eat and/or NPO and with IV Access: For Bedside Glucose 54-69 mg/dL give 12.5 g Dextrose IV STAT For Bedside Glucose LESS than 54 mg/dl verify with a second Bedside Glucose (from a different site) and give 25 g Dextrose IV STAT Re-check and Re-treat blood glucose EVERY , 10-25 minutes until blood glucose GREATER than or equal to 80 mg/dl. NOTIFY PROVIDER OF HYPOGLYCEMIC EVENT. dextrose IV 25 g(Linked Group 1) 25 g, Intravenous, PRN, Other, Bedside Glucose less than 70 mg/dL -If NOT able to eat and/or NPO and with IV Access, Starting on 03/14/24 at 0047, Until Sat04/08/24 at 1742, If NOT able to eat and/or NPO and with IV Access: For Bedside Glucose LESS than 54 mg/dl verify with a second Bedside Glucose (from a different site) and give 25 g Dextrose IV STAT Re-check and Re-treat blood glucose EVERY - 10-25 minutes until blood glucose GREATER than or equal to 80 mg/dl. - If repeat bedside glucose 54-79 give 12.5 g Dextrose IV STAT NOTIFY PROVIDER OF HYPOGLYCEMIC EVENT. glucagon (Glucagen) injection 1 mg(Linked Group 1) 1 mg, Subcutaneous, PRN, Bedside Glucose less than 70 mg/dL - If NOT able to eat and/or NPO and withOUT IV Access, Starting on 03/14/24 at 0047, Until Sat04/08/24 at 1742, If NOT able to eat and/or NPO and NO IV Access: For Bedside glucose 54-69 mg/dL ? - Give 1 mg subcutaneous For Bedside Glucose LESS than 54 mg/dl ? -?verify with a second bedside glucose (from a different site) ? -?Give 1 mg subcutaneous Re-check and Re-treat blood glucose EVERY 10-25 minutes until blood glucose GREATER than or equal to 80 mg/dl.? NOTIFY PROVIDER OF HYPOGLYCEMIC EVENT. Reconstitute vial with 1 mL of sterile water for injection for a final concentration of 1 mg/mL; shake vial gently; use immediately and discard unused portion glucose (Diabetic Use) oral gel Oral, PRN, Other, Bedside Glucose less than 70 mg/dL, Starting on 03/14/24 at 0047, Until Sat04/08/24 at 1742, If able to take oral medications: For Bedside Glucose 54 - 69 mg/dL Give 15 grams of oral carbohydrates - 1 glucose gel (see MAR) If patient refuses glucose gel, then offer: - 4 ounces of fruit juice OR - 4 ounces non-diet soda OR - 8 ounces of fat-free milk For Bedside Glucose LESS than 54 mg/dL verify with a second Bedside Glucose (from a different site) - If pt is symptomatic, do not delay treatment - If accuracy of the POC glucose is in question, confirm glucose with a STAT laboratory test Give 30 grams of oral carbohydrates - 2 glucose gels (see MAR) If patient refuses glucose gel, then offer: - 8 ounces of fruit juice OR - 8 ounces non-diet soda OR - 16 ounces of fat-free milk Re-check and Re-treat blood glucose EVERY 10-25 minutes until blood glucose GREATER than or equal to 80 mg/dl. - If on recheck, bedside glucose 54-79 mg/dL - Give 15 grams of oral carbohydrates (see above for choices) NOTIFY PROVIDER OF HYPOGLYCEMIC EVENT. traZODone (Desyrel) tablet 25 mg 25 mg, Oral, AT BEDTIME PRN, Insomnia, Starting on Tu03/31/24 at 1143, Until Sat04/08/24 at 1742 2017 ($ Given - Provider: Esdras Cowart, ZACH) 2115 ($ Given - Provider: Esdras Cowart RN) Linked Groups Order Group 1: dextrose IV 12.5 gJump to med 12.5 g, Intravenous, PRN, Other, Bedside Glucose less than 70 mg/dL -If NOT able to eat and/or NPO and with IV Access, Starting on 03/14/24 at 0047, Until Sat04/08/24 at 1742, If NOT able to eat and/or NPO and with IV Access: For Bedside Glucose 54-69 mg/dL give 12.5 g Dextrose IV STAT For Bedside Glucose LESS than 54 mg/dl verify with a second Bedside Glucose (from a different site) and give 25 g Dextrose IV STAT Re-check and Re-treat blood glucose EVERY , 10-25 minutes until blood glucose GREATER than or equal to 80 mg/dl. NOTIFY PROVIDER OF HYPOGLYCEMIC EVENT. Or dextrose IV 25 gJump to med 25 g, Intravenous, PRN, Other, Bedside Glucose less than 70 mg/dL -If NOT able to eat and/or NPO and with IV Access, Starting on 03/14/24 at 0047, Until Sat04/08/24 at 1742, If NOT able to eat and/or NPO and with IV Access: For Bedside Glucose LESS than 54 mg/dl verify with a second Bedside Glucose (from a different site) and give 25 g Dextrose IV STAT Re-check and Re-treat blood glucose EVERY - 10-25 minutes until blood glucose GREATER than or equal to 80 mg/dl. - If repeat bedside glucose 54- 79 give 12.5 g Dextrose IV STAT NOTIFY PROVIDER OF HYPOGLYCEMIC EVENT. Or glucagon (Glucagen) injection 1 mgJump to med 1 mg, Subcutaneous, PRN, Bedside Glucose less than 70 mg/dL - If NOT able to eat and/or NPO and withOUT IV Access, Starting on 03/14/24 at 0047, Until Sat04/08/24 at 1742, If NOT able to eat and/or NPO and NO IV Access: For Bedside glucose 54-69 mg/dL ? - Give 1 mg subcutaneous For Bedside Glucose LESS than 54 mg/dl ? -?verify with a second bedside glucose (from a different site) ? -?Give 1 mg subcutaneous Re-check and Re-treat blood glucose EVERY 10-25 minutes until blood glucose GREATER than or equal to 80 mg/dl.? NOTIFY PROVIDER OF HYPOGLYCEMIC EVENT. 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
--- OUTSIDE RECORDS SUMMARY | 2024-05-01 13:46 | XMS_ITS | Encounter Summary ---
Author Organization [facility] Healthcare Address [address] [place] [address] Care Team Providers Care Critical Care Paramedic Name Role Phone Iris Delgado MD Primary Care Provider [phone] Reason for Referral * Consultation (Routine) - Closed Specialty Diagnoses / Procedures Referred By Pina jean-baptiste Referred To Contact Orthopedic Surgery Diagnoses Closed nondisplaced fracture of fifth metatarsal bone of left foot, initial encounter Tiffani Royal MD [address] [place] [address] Phone: tel: fax: Goldy Bee DO [address] [facility] [address] [address] Phone: tel: fax: Referral ID Status Reason Start Date Expiration Date V isits Requested Visits Authorized [id number] Closed Specialty Services Required 02/11/2023 03/12/2024 1 1 Question Answer Please select the performing region: [facility] Group [[id number]] Please select the performing department: [facility] [[id number]] To provider: GOLDY BEE [[id number]] # of visits: 1 Reason for Visit * Reason Comments Fall * Auth/Cert (Routine) Specialty Diagnoses / Procedures Referred By Pina jean-baptiste Referred To Contact Diagnoses Fall, initial encounter Closed nondisplaced fracture of fifth metatarsal bone of left foot, initial encounter Procedures NA Referral ID Status Reason Start Date Expiration Date Visits Re quested Visits Authorized [id number] 1 1 Encounter Details Date Type Department Care Team (Latest Contact Info) Description 02/08/2023 5:51 PM CDT - 02/11/2023 6:18 PM CDT Hospital Encounter [facility] 4 Med Surg [address] [place] [address] Gabriel Russo MD [facility] [facility] [address] [place] [address] Tiffani Royal MD [facility] [facility] [address] [place] [address] Closed nondisplaced fracture of fifth metatarsal bone of left foot, initial encounter (Primary Dx); Fall, initial encounter Discharge Disposition: Discharge to SNF Social History Tobacco Use Types Packs/Day Years Used Date Smoking Tobacco: Never Smokeless Tobacco: Never Tobacco Cessation:Counseling Given: No [facility] Utilities Answer Date Recorded In the past 12 months has [employer], gas, oil, or water [employer] threatened to shut off services in your home? No 02/09/2023 Social Connection and Isolat ion Panel [NHANES] Answer Date Recorded In a typical week, how many times do you talk on the phone with family, friends, or neighbors? More than three times a week 02/11/2023 How often do you get togethe r with friends or relatives? More than three times a week 02/11/2023 How often do you attend chur ch or zoroastrian services? Never 02/11/2023 Do you belong to any clubs o r organizations such as congregation groups, unions, fraternal or athletic groups, or school groups? No 02/11/2023 How often do you attend meet ings of the clubs or organizations you belong to? Never 02/11/2023 Are you , , di vorced, , never , or living with a partner? 02/11/2023 Overall Financial Resource Strain (CARDIA) Answe r Date Recorded How hard is it for you to pa y for the very basics like food, housing, medical care, and heating? Not hard at all 02/11/2023 Hunger Vital Sign Answer Date Recorded Within the past 12 months, y ou worried that your food would run out before you got the money to buy more. Never true 02/12/20 23 Within the past 12 months, t he food you bought just didn't last and you didn't have money to get more. Never true 02/11/2023 PRAPARE - Transportation Answer Date Re corded In the past 12 months, has l ack of transportation kept you from medical appointments or from getting medications? No 01/21 In the past 12 months, has l ack of transportation kept you from meetings, work, or from getting things needed for daily living? No 02/11/2023 Housing Stability Vital Sign Answer Dharmesh e Recorded In the last 12 months, was t here a time when you were not able to pay the mortgage or rent on time? No 02/11/2023 In the last 12 months, how many places have you lived? 1 02/11/2023 In the last 12 months, was t here a time when you did not have a steady place to sleep or slept in a nursing home (including now)? No 02/11/2023 Personal Safety Answer Date Recorded Have you ever been in or are you currently in a harmful physical or emotional relationship or is someone making you feel afraid or unsafe? 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 Gender Identity Not on file Sexual Orientation Not on file documented as of this encounter Last Filed Vital Signs Vital Sign Reading Time Taken Comments Blood Pressure 110/67 02/11/2023 5:12 PM CDT Pulse 82 02/11/2023 5:12 PM CDT Temperature 36.3 ??C (97.3 ??F) 02/11/2023 5:12 PM CD T Respiratory Rate 20 02/11/2023 5:12 PM CDT Oxygen Saturation 97% 02/11/2023 5:12 PM CDT Inhaled Oxygen Concentration - - Weight 68.7 kg (151 lb 6.4 oz) 02/08/2023 9:49 P M CDT Height 162.6 cm (5' 4 ) 02/08/2023 9:49 PM CDT Body Mass Index 25.99 02/08/2023 9:49 PM CDT documented in this encounter Discharge Summaries * Tiffani Royal MD - 02/11/2023 1:40 PM CDT Inpatient Discharge Summary Patient Name - Emerald Myers Patient Age - 87 yrs Patient - [id number] [facility] - [id number] Document Creation Date: 02/11/2023 Admitting Provider, MD: Gabriel Russo MD Discharge Provider, MD: Tiffani Royal MD Primary Care Physician at Discharge: Iris Delgado MD [phone] Admission Date: 02/08/2023 Discharge Date/time: 02/11/2023 Admission Location: [facility] LOS - LOS: 3 days DETAILS OF HOSPITAL STAY Hospital Problems/Diagnoses Principal Problem: Closed nondisplaced fracture of fifth metatarsal bone of left foot, initial encounter Active Problems: Hypertension GERD (gastroesophageal reflux disease) Reason for Hospitalization: Fall Hospital Course: 87-year-old female with PMH for advanced dementia, hypertension presented to the ED on 02/08/2023 with complaint of pain of the left leg after a fall. In the ED she was found to have a closed nondisplaced fracture of the 5th metatarsal bone of the left foot on CT imaging. She had a cast placed in the ED. Orthopedics was notified and recommended following up outpatient. PT/OT recommend weight-bearing as tolerated and also recommend patient go to SNF rehabilitation. Follow up has been placed to see her PCP within 1 week. Referral has been placed to see Dr. Bee outpatient. Discharge Details Physical Exam at Discharge: Discharge Condition: stable Pulse: 83 Resp: 20 BP: 140/53 Temp: 36.6 ??C (97.9 ??F) Weight: 68.7 kg (151 lb 6.4 oz) Discharge Disposition: Discharge to SNF Code Status at Discharge: Full Code Active Issues & Recommended Plan for Follow-up: PCP, ortho Allergies: Ciprofloxacin, Adhesive tape-silicones, and Sulfa (sulfonamide antibiotics) Discharge Medications: Your medication list START taking these medications Instructions Last Dose Given Next Dose Due traMADoL 50 mg tablet Commonly known as: ULTRAM 50 mg, oral, Every 8 hours PRN CHANGE how you take these medications Instructions Last Dose Given Next Dose Due loperamide 2 mg capsule Commonly known as: IMODIUM What changed: when to take this 2 mg, oral, 4 times daily PRN CONTINUE taking these medications Instructions Last Dose Given Next Dose Due amLODIPine 10 mg tablet Commonly known as: NORVASC 10 mg, oral, Daily ascorbic acid 500 mg tablet,chewable Commonly known as: VITAMIN C 500 mg, oral, 2 times daily calcium carbonate 1,500 mg (600 mg elemental) tablet Commonly known as: OS-JEROD 600 mg of elemental calcium, oral, 2 times daily cholestyramine-aspartame 4 gram powder in packet Commonly known as: QUESTRAN LIGHT 1 packet, oral, Daily FLUoxetine 20 mg tablet Commonly known as: PROzac 20 mg, oral, Daily hyoscyamine ER 0.375 mg 12 hr tablet Commonly known as: LEVBID 0.375 mg, oral, Daily lansoprazole 30 mg capsule Commonly known as: PREVACID 30 mg, oral, Every other day losartan 50 mg tablet Commonly known as: COZAAR 50 mg, oral, Daily raloxifene 60 mg tablet Commonly known as: EVISTA 60 mg, oral, Daily Repatha Syringe syringe syringe Generic drug: evolocumab 140 mg, subcutaneous, Every 14 days, On Where to Get Your Medications You can get these medications from any pharmacy Bring a paper prescription for each of these medications traMADoL 50 mg tablet Time Spent in Discharge Process: I have spent 31 minutes on discharge planning activities. Test Results Pending at Discharge (If Blank, None Found): Operative Procedures Performed (If Blank, None Found): Outpatient Follow-Up: Contact Information for Follow-ups Iris Delgado MD Specialty: Internal Medicine Relationship: PCP - General 0984 REPLACED BY [facility] [address] [facility] [address] [facility] [address] Next Steps: Follow up Instructions: Within 1 week of discharge Questions: Instructions for follow-up (appointment date and time): Within 1 week of discharge To provider: IRIS DELGADO Jason, DO Specialty: Orthopedic Surgery [address] [place] [address] [address] [facility] [address] Next Steps: Follow up Questions: Please select the performing region: [facility] Please select the performing department: [facility] To provider: GOLDY BEE # of visits: 1 Referral Status: Ready for Initial Scheduling Please schedule an appointment with the following provider(s): Iris Delgado MD [address] [facility] [address] Within 1 week of discharge Goldy Bee DO [address] [facility] [address] [facility] [address] ANCILLARY INFORMATION Other Procedures & Diagnostic Tests: CT Cervical Spine WO Contrast Result Date: 02/08/2023 EXAM DESCRIPTION: CT CERVICAL SPINE WO CONTRAST REASON FOR STUDY: Neck trauma (Age >= 65y) Pt arrived via EMS from [facility]. Pt states she stood up from her couch, twisted herleft ankle and fell backward onto her back striking her head on the floor. No LOC. Pt c/o left ankle pain, back pain and neck pain. C collar in place on arrival. TECHNIQUE: Axial images through the cervical spine with sagittal and coronal reformatted images. Automated exposure control was used as adose optimization technique for this examination. COMPARISON: None FINDINGS: ALIGNMENT: Slight anterolisthesis of C 3 on C4 appears to result from facet arthropathy. Other levels are better aligned. V ERTEBRAE: No fracture. Vertebral body heights well-maintained. DISCS: Disc heights well-maintained. HARDWARE: None in the spine. INDIVIDUAL LEVELS: C1-C2: No significant osseous spinal stenosis. C2-C3: Partial neural foraminal narrowing is noted. The canal appears to be patent. C3-C4: The canal appears to be patent. The neural foraminal openings are markedly crowded by spurring. C4- C5: Marginal spurring is noted with neural foraminal narrowing bilaterally. C5- C6: The canal is mildly narrowed. The neural foraminal openings are mildly narrowed by disc material. C6-C7: Partial neural foraminal crowding is noted to a significant degree. The canal is partially narrowed. C7-T1: No significant oss eous spinal stenosis or neural foraminal stenosis. UPPER THORACIC: Incompletely imaged. No significant osseous spinal stenosis or osseous neural foraminal stenosis. SKULL BASE: No significant finding. LUNG APICES: No significant abnormality. NECK SOFT TISSUES: No significant abnormality. OTHER: No other significant findings. IMPRESSION: Significant degenerative and disc pathology is seen particularly affecting the facet joints. Some marginal spurring crowds the neural foraminal openings particularly at C3-C4 and C4-C5. No traumatic injury is seen THIS IS AN ELECTRONICALLY VERIFIED FINAL REPORT 02/08/2023 7:06 PM - Electronically signed by Jeramie JACK: GUERO Report ID: [id number] Reading Location: [id number] CT Head WO Contrast Result Date: 02/08/2023 EXAM DESCRIPTION: CT HEAD WO CONTRAST REASON FOR STUDY: Head trauma, minor (Age => 66y) Pt arrived via EMS from [facility]. Pt states she stood up from her couch, twisted her left ankle and fell backward onto her back striking her head on the floor. No LOC. Pt c/o left ankle pain, back pain and neck pain. C collar in place on arrival. TECHNIQUE: Axial images acquired throughthe brain without intravenous contrast. Images stored on PACS. Automated exposure control was used as a dose optimization technique for this examination. COMPARISON: 10/18/2022 FINDINGS: BRAIN: No hemorrhage, edema or mass effect. No recent infarct. Patchy hypodensity of the cerebral white matter suggests chronic small-vessel ischemic changes. Diffuse atrophy of the brain is noted. EXTRA-AXIAL SPACES: No fluid collections. No masses. CALVARIUM: No fracture. SINUSES/MASTOIDS: No fluid or mucosal thickening. ORBITS: No significant abnormality. OTHER: No other significant abnormality. IMPRESSION: No acute intracranial findings. THIS IS AN ELECTRONICALLY VERIFIED FINAL REPORT 02/08/2023 7:00 PM - Electronically signed by Jeramie JACK: GUERO Report ID: [id number] Reading Location: [id number] XR Foot Left 3 or More Views Result Date: 02/08/2023 EXAM DESCRIPTION: XR FOOT LEFT 3 OR MORE VIEWS REASON FOR STUDY: pain EMS from [facility]. Pt states she stood up from her couch, twisted her left ankle and fell backward onto her back striking her head on the floor. No LOC. Pt c/o left ankle pain, back pain and neck pain. C collar in place on arrival. Pt placed on monitor. V\SS. Pt has no c/o dizziness, cp or illness TECHNIQUE: 3 radiographic view(s) of the left foot . COMPARISON: None FINDINGS: Transverse fracture is seen of the proximal base of the 5th metacarpal without significant displacement of fragments. The bones are osteopenic. No other fracture is identified. IMPRESSION: 5th metatarsal fracture THIS IS AN ELECTR ONICALLY VERIFIED FINAL REPORT 02/08/2023 6:58 PM - Electronically signed by Jeramie JACK: GUERO Report ID: [id number] Reading Location: [id number] XR Ankle Left 3 or More Views Result Date: 02/08/2023 EXAM DESCRIPTION: XR ANKLE LEFT 3 OR MORE VIEWS REASON FOR STUDY: pain EMS from [facility]. Pt states she stood up from her couch, twisted her left ankle and fell backward onto herback striking her head on the floor. No LOC. Pt c/o left ankle pain, back pain and neck pain. C collar in place on arrival. Pt placed on monitor. V\SS. Pt has no c/o dizziness, cp or illness TECHNIQUE: 3 radiographic view(s) of the left ankle . COMPARISON: None FINDINGS: Prominent soft tissue swelling is seen at the lateral aspect of the ankle. The bones are osteopenic. Noted fracture of the proximal aspect of the 5th metacarpal is better seen on the concurrent foot images. No definite fractureis seen of the ankle structures. IMPRESSION: The bones are osteopenic. No definite fracture is seenof the ankle. THIS IS AN ELECTRONICALLY VERIFIED FINAL REPORT 02/08/2023 6:56 PM - Electronically signed by Jeramie JACK: GUERO ReportID: [id number] Reading Location: [id number] XR Hip Left 2 or 3 Views Result Date: 02/08/2023 EXAM DESCRIPTION: XR HIP LEFT 2 OR 3 VIEWS REASON FOR STUDY: pain EMS from [facility]. Pt states she stood up from her couch, twisted her left ankle and fell backward onto her backstriking her head on the floor. No LOC. Pt c/o left ankle pain, back pain and neck pain. C collar in place on arrival. Pt placed on monitor. V\SS. Pt has no c/o dizziness, cp or illness TECHNIQUE: 2 radiographic view(s) of the left hip . COMPARISON: None FINDINGS: BONES/JOINTS: There is no acute fracture, malalignment or osseous abnormality. Minor degenerative changes are noted. The bones are somewhat osteopenic. SOFT TISSUES: Within normal limits. IMPRESSION: No acute osseous abnormality. THISIS AN ELECTRONICALLY VERIFIED FINAL REPORT 02/08/2023 6:53 PM - Electronically signed by Jeramie Newberry M.D. KH: GUERO Report ID: [id number] Reading Location: [place] [address] Recent Labs: Recent Labs Lab Units 02/08/232055 WBC K/cumm 8.8 HEMOGLOBIN g/dL 13.0 HEMATOCRIT % 40.0 PLATELETS K/cumm 204 Recent Labs Lab Units 02/08/232055 WBC K/cumm 8.8 HEMOGLOBIN g/dL 13.0 HEMATOCRIT % 40.0 PLATELETS K/cumm 204 NEUTROS PCT % 66.5 LYMPHS PCT % 23.7 MONOS PCT % 6.4 EOS PCT % 2.4 Recent Labs Lab Units 02/08/232055 SODIUM mmol/L 138 POTASSIUM PLASMA mmol/L 4.0 CHLORIDE mmol/L 103 CO2 mmol/L 28 BUN SERUM mg/dL 23 CREATININE mg/dL 1.00 [id number] mL/min/1.73 m2 55 GLUCOSE mg/dL 96 CALCIUM mg/dL 9.0 ALBUMIN g/dL 3.5 Recent Labs Lab Units 02/08/232055 SODIUM mmol/L 138 POTASSIUM PLASMA mmol/L 4.0 CHLORIDE mmol/L 103 CO2 mmol/L 28 ANIONGAP mmol/L 7 GLUCOSE mg/dL 96 BUN SERUM mg/dL 23 CREATININE mg/dL 1.00 CALCIUM mg/dL 9.0 ALBUMIN g/dL 3.5 ALK PHOS Units/L 84 ALT Units/L 6* AST Units/L 11 BILIRUBIN TOTAL mg/dL 0.3 Recent Labs Lab Units 10/20/23 2056 ALK PHOS Units/L 84 BILIRUBIN TOTAL mg/dL 0.3 TOTAL PROTEIN g/dL 6.3* ALT Units/L 6* AST Units/L 11 Lab Results Component Value Date GLUCOSE 96 02/08/2023 GLUCOSE 93 10/20/2022 GLUCOSE 91 10/19/2022 Implant: Implants No active implants to display in this view. General Precautions (If Blank, None Found): Isolation Status: No active isolations Nutritional Status and in-house recommendations: Dietary Orders (From admission, onward) Start Ordered 02/09/23 1332 Adult Diet Regular Diet effective now Question: (MHB/MHE) Diet type Answer: Regular 02/09/23 1331 Anticoagulation Indication: INR: No results found for requested labs within last 30 days. Warfarin Administrations (last 168 hours) None Oxygen Status: O2 Therapy for the past 12 hrs: O2 Therapy 02/11/23 0739 None (Room air) 02/11/23 0351 None (Room air) Wound Care Instructions Other Instructions Special Instructions Keep cast on until seen Dr. Bee. Weight-bearing as tolerated. Active LDAs (If Blank, None Found): Patient Emergency Contact: Primary Emergency Contact: katharine engel Immunization Status at Discharge Immunization History Administered Date(s) Administered Moderna SARS-CoV-2 Monovalent Vaccination (12+ YRS) 06/17/2020, 07/15/2020, 03/25/2021 Tiffani Royal MD documented in this encounter Discharge Instructions * Attachments The following attachments cannot be sent through Care Everywhere. * Foot Fracture in Adults (Discharge Care) (Russian) * Toe Fracture (Discharge Care) (Russian) * Tramadol (By mouth) (Russian) documented in this encounter Medications at Time of Discharge cholestyramine-a spartame (QUESTRAN LIGHT) 4 gram powder in packet Take 1 packet by mouth daily FLUoxetine (PROzac) 20 mg tablet Take 1 tablet (20 mg total) by mouth daily lansoprazole (PREVACID) 30 mg capsule Take 1 capsule (30 mg total) by mouth every other day raloxifene (EVISTA) 60 mg tablet Take 1 tablet (60 mg total) by mouth daily amLODIPine (NORVASC) 10 mg tablet Take 1 tablet (10 mg total) by mouth daily 30 tablet 10/22/2022 4 ascorbic acid 500 mg tablet,chewable Take 1 tablet/chew tab (500 mg total) by mouth 2 (two) times a day 4 calcium carbonate (OS-JEROD) 1,500 mg (600 mg elemental) tablet Take 1 tablet (1,500 mg total) by mouth 2 (two) times a day 4 evolocumab (Repatha Syringe) syringe syringe Inject 1 mL (140 mg total) under the skin every 14 (fourteen) days On 4 hyoscyamine ER (LEVBID) 0.375 mg 12 hr tabletIndication s:diarrhea Take 1 tablet (0.375 mg total) by mouth daily 4 loperamide (IMODIUM) 2 mg capsule Take 1 capsule (2 mg total) by mouth 4 (four) times a day as needed for diarrhea 12 capsule 04/06/2021 4 losartan (COZAAR) 50 mg tablet Take 1 tablet (50 mg total) by mouth daily 30 tablet 10/22/2022 4 traMADoL (ULTRAM) 50 mg tablet Take 1 tablet (50 mg total) by mouth every 8 (eight) hours as needed for pain 20 tablet 02/11/2023 4 documented as of this encounter Ordered Prescriptions Prescription Sig Dispense Quantity Refills Last Filled Start Date End Date traMADoL (ULTRAM) 50 mg tablet Take 1 tablet (50 mg total) by mouth every 8 (eight) hours as needed for pain 20 tablet 02/11/2023 02/20/2024 traMADoL (ULTRAM) 50 mg tablet Take 1 tablet (50 mg total) by mouth every 8 (eight) hours as needed for pain 20 tablet 02/11/2023 02/11/2023 documented in this encounter Discharge Disposition Disposition Code Departure Means Destination Comment s Discharge to [facility] documented in this encounter Progress Notes * Razia Aguilar LCSW - 02/11/2023 3:21 PM CDT Pt's DIL requesting EMS transport for dc. Per RN, [place] x2 [place] [facility]. [phone] ETA: 02/11, next available (7p) Trip #[id number] EMS arranged d/t: assist x2 for transfer, fall precautions, dementia requiring supervision for trip. Razia Aguilar LCSW [phone] 02/11/2023 3:22 PM * Razia Aguilar LCSW - 02/11/2023 1:56 PM CDT DISCHARGE TO [facility] Social Work has coordinated discharge plan. Patient has been accepted to [facility] SNF. DENISE spoke with mignon Montes to confirm. Will require COVID swab prior to dc. RN informed to call report and fax orders to numbers listed below. Patient, family (SHARONA Tinajeroanne) areaware and are agreeable to plan. In agreement with bringing Repatha medication to [facility]. Transportation has been arranged via private vehicle (DIL). Mode of transport has been discussed with the patient/family, doctors, nurses, and all are agreeable to plan and understand their role to ensure the patient's safe transfer. No further social work intervention is anticipated at this time. [address] [address] Room: [facility] Razia Aguilar LCSW 02/11/2023 1:56 PM * Chauncey Weems, OT - 02/11/2023 10:36 AM CDT Occupational Therapy 02/11/23 1036 General Chart Reviewed Yes Session Type Evaluation OT Received On 02/11/23 Safe Environment Arm band checked;Patient found in supine;Gait belt utilized for all out of bed mobility Subjective Agreeable to Therapy Subjective Comment Pt. very cooperative but is tangential in conversation and confused Additional Pertinent History DX: L 5th metatarsal fx PMH: syncope, dyspnea, falls, HTN, GERD Family/Caregiver Present No Occupational Therapy-Patient Goal Pt. lives at [facility] Current Functional Status OT Functional Mobility min A for functional mobility in room with wwkr 10 ft OT Self Care pt. able to don R sock sitting EOB OT Cognition Alert to self but not oriented to place--seems to be confusing hospital with [facility] OT Communication intact Precautions Precautions Bed/Chair Alarm Weight Bearing Restrictions No Precaution Comments Pt. has very poor safety awareness Home Living Type of Home Assisted Living Facility Additional Comments Pt. has walk in shower with seat and grab bars and accessible toilet Prior Function Level of [place] Needs assistance with ambulation;Needs assistance with homemaking Prior Function Comments [facility]--not sure if she was indep with mobility prior to this fall and fx, needs supervision due to significant cognitive deficits Pain Assessment Pain Assessment 0-10 Pain Score 3 Pain Type Acute pain Pain Location Foot Pain Orientation Left Activity Tolerance Endurance Tolerates less than 10 min activity no significant change in vital signs Activity Tolerance Comments Pt. tolerated sitting EOB to complete donning sock and then completed functional mobility from bed to chair (approximately 10 ft0 with wwkr min A Perception Inattention/Neglect Appears intact Initiation Cues to initiate tasks Perseveration Not present Cognition Cognition Comments impaired--pt. pleasant and oriented to self but not place/time Overall Cognitive Status Impaired Arousal/Alertness Alert Attention Span Appears intact Memory Appears intact Orientation Oriented to person Following Commands Follows one step commands with increased time Safety Judgment Decreased awareness of need for assistance Awareness of Errors Assistance required to identify errors made;Assistance required to correct errors made;Decreased awareness of errors Insight Decreased awareness of deficits Compliance/Behavior Easy to engage Perseveration Not present Motor Planning Motor Planning Appears intact Coordination Movements Are Fluid and Coordinated 1 Hand Preference Hand Preference Right Hand Function Coordination Functional Gross Grasp Functional Reach/Grasp RUE Reach WFL LUE Reach WFL RUE Grasp Gross grasp LUE Grasp Gross grasp Bed Mobility 1 Bed Mobility Comments 1 Pt. SBA for supine-sit EOB Transfer 1 Trials/Comments 1 Min A for sit-stand and for mobility with wwkr to chair, approx 10 ft RUE Assessment RUE Assessment WFL LUE Assessment LUE Assessment WFL OT Treatment/Exercise Comments OT Treatment/Exercise Comments Pt. demonstrates good flexibility to reach distal LE's Safe Environment End of Therapy Session Safe Environment End of Therapy Session Patient left in chair;Chair alarm in place and activated;Call light within reach;Overbed table within reach Assessment Prognosis Good Problem List Decreased cognition;Decreased endurance;Decreased safe judgment during ADL;Decreased functional mobility;Decreased ADL independence;Decreased IADL independence;Gait Plan Plan Plan of care initiated Recommendation/Plan OT Recommendation Long-Term Facility Patient at high risk for Readmission;Falls;Injury due to decreased ability to care for self;Injury due to reduced functional status;Injury due to impaired cognition;Injury due to balance deficits Recommend SNF due to Skilled therapy needed to address care for self in the home;Skilled therapy needed to address functional deficits;Skilled therapy needed for patient to return to prior level of independence OT Recommendation/Plan Comments Pt. would benefit from short SNF stay to improve balance, independence with mobility and ADL's OT Frequency during current admission 3-5x/wk Treatment/Interventions during current admission ADL/IADL retraining;Balance Training;Bed mobility;Functional activity;Functional mobility training;Functional transfer training;Neuromuscular re-educat ion;Strengthening;Therapeutic activity;Therapeutic exercise OT Equipment Recommended Wheeled walker;Toilet raiser;Shower chair OT - Next Appointment 02/25/23 OT Evaluation Complete Yes Pt will benefit from skilled OT in order to increase safety and independence with ADL/IADls, decrease fall risk, promote healing, return to PLOF, decrease pain, and increase quality of life. Multi-Disciplinary Problems (from Occupational Therapy) Active Problems Problem: [place] [facility] [place]: 02/11/23 Goal Start Date Expected End Date End Date [facility] 1 02/11/23 02/18/23 -- Goal Details: 1) LE ADL SBA/MIN ASSIST WITH AE PRN. Goal Start Date Expected End Date End Date OT [facility] 2 02/11/23 02/18/23 -- Goal Details: 2) FUNCTIONAL MOBILITY TO/FROM BATHROOM AND ALL ASPECTS TOILETING MODIFIED INDEP WITHDME. Goal Start Date Expected End Date End Date OT [facility] 3 02/11/23 02/18/23 -- Goal Details: 3) STAND AT SINK X4 MIN FOR ADL WITH GOOD BALANCE. Goal Start Date Expected End Date End Date [facility] 4 02/11/23 02/18/23 -- Goal Details: 4) PERFORM ITEM RETRIEVAL FROM HIGH/LOW POSITIONS WITH GOOD BALANCE/SAFETY. Goal Start Date Expected End Date End Date OT [facility] 5 02/11/23 02/18/23 -- Goal Details: 5) PERFORM SIMULATED TUB/SHOWER TRANSFER TECHS WITH DME PRN. * Shana Coelho, THREAD GRINDER TOOL - 02/11/2023 10:09 AM CDT Physical Therapy 02/11/23 1009 PT Last Visit Session Type Treatment PT Received On 02/11/23 Safe Environment Arm band checked;Patient found in supine Subjective Agreeable to Therapy Family/Caregiver Present No Precautions Precautions Bed/Chair Alarm;Fall risk Pain Assessment Pain Assessment No/denies pain Seated Seated-Exercises Lower extremity;Specific exercises Seated-Exercise Type Hip flexion;Long arc quads Reps/Sets 01/20 Seated-Motion AROM Seated-Exercise Comments Pt required redirection to continue exercises due to just wanting to talk. Bed Mobility 1 Bed Mobility From 1 Supine;Rolling left Bed Mobility Type 1 To and from Bed Mobility to 1 Short sit Level of Assistance 1 Standby Assist Bed Mobility Comments 1 Pt rewquired min vc for rolling to L and sitting edge of bed. Pt required redirection to cont with task. Transfer 1 Trials/Comments 1 Did not attmpt to stand due to pt mentioning she was lightheaded Safe Environment End of Therapy Session Safe Environment End of Therapy Session Patient left supine in bed;Bed alarm in place and activated;Call light within reach;Overbed table within reach Recommendation/Plan PT Recommendation/Plan Long-Term Facility Patient at high risk for Falls;Readmission;Injury due to decreased ability to care for self;Injury due to reduced functional status;Injury due to impaired cognition;Injury due to balance deficits Recommend SNF due to Risk of injury at home;Unable to safely care for self in the home;Skilled therapy needed to address care for self in the home;Skilled therapy needed to address functional deficits;Skilled therapy needed for patient to return to prior level of independence Multi-Disciplinary Problems (from Physical Therapy) Active Problems Problem: Mobility Start Date: 02/09/23 Goal Start Date Expected End Date End Date STG - Patient will ambulate 02/09/23 02/16/23 -- Goal Details: Pt will ambulate with 2ww and CGA 15' Problem: Transfers Start Date: 02/09/23 Goal Start Date Expected End Date End Date STG - Transfer from bed to chair 02/09/23 02/16/23 -- Goal Details: Pt will transfer from bed to chair with 2ww and CGA Goal Start Date Expected End Date End Date STG - Patient will transfer sit to and from stand 02/09/23 02/16/23 -- Goal Details: Pt will transfer sit to and from stand with 2ww IND Pt progressing towards goals. Educated the patient to the role of physical therapy, plan of care, goals of therapy, rationale forprogressing mobility. Patient was left with all needs met and equipment intact. Mobility and ADL status posted at bedsideand within medical record. * Tiffani Royal MD - 02/11/2023 8:52 AM CDT Images from the original note were not included. General Medicine Daily Progress SUBJECTIVE 02/09/2023 Patient seen and examined at bedside. Patient is pleasantly confused, she does endorse pain with moving her left foot. 02/10/2023 Patient seen and examined at bedside. Patient is pleasantly confused, does endorse pain with ambulation. She did have trouble sleeping last night at bedside sitter is present currently. 02/11/2023 Patient seen and examined at bedside. Patient is saturating well on 1 L. Attempted to decrease oxygen to room air, desaturated into the lower 90s. Most of her edema appears to be around her abdominalregion. She denies having any shortness of breath. She said that she ambulated yesterday with oxygen and felt fine. OBJECTIVE Vitals: 24hr Min/Max: Temp Min: 36.6 ??C (97.9 ??F) Max: 37 ??C (98.6 ??F) Pulse Min: 82 Max: 97 BP Min: 112/98 Max: 152/76 Resp Min: 16 Max: 20 SpO2 Min: 95 % Max: 98 % Most Recent : Vitals: 02/11/23 0739 BP: 140/53 Pulse: 83 Resp: 20 Temp: 36.6 ??C (97.9 ??F) SpO2: 97% I/O last 2 completed shifts: In: 400 [P.O.:400] Out: 1100 [Urine:1100] I/O this shift: In: 150 [P.O.:150] Out: - O2 Therapy for the past 12 hrs: O2 Therapy 02/11/23 0739 None (Room air) 02/11/23 0351 None (Room air) 02/10/23 2334 None (Room air) Physical Exam: Physical Exam Constitutional: Appearance: Normal appearance. HENT: Head: Normocephalic and atraumatic. Cardiovascular: Rate and Rhythm: Normal rate and regular rhythm. Pulmonary: Effort: Pulmonary effort is normal. Breath sounds: Normal breath sounds. Abdominal: Palpations: Abdomen is soft. Musculoskeletal: Comments: Pain on palpation of left foot, range of motion limited due to pain Neurological: General: No focal deficit present. Mental Status: She is alert and oriented to person, place, and time. Lab/Current Medication Review: No results found for this or any previous visit (from the past 24 hour(s)). CT Cervical Spine WO Contrast Result Date: 02/08/2023 Narrative: EXAM DESCRIPTION: CT CERVICAL SPINE WO CONTRAST REASON FOR STUDY: Neck trauma (Age >=65y) Pt arrived via EMS from [facility]. Pt states she stood up from her couch, twisted her left ankle and fell backward onto her back striking her head on the floor. No LOC. Pt c/o left ankle pain, back pain and neck pain. C collar in place on arrival. TECHNIQUE: Axial images through the cervical spine with sagittal and coronal reformatted images. Automated exposure control was used as a dose optimization technique for this examination. COMPARISON: None FINDINGS: ALIGNMENT: Slight anterolisthesis of C 3 on C4 appears to result from facet arthropathy. Other levels are better aligned. VERTEBRAE: No fracture. Vertebral body heights well-maintained. DISCS: Disc heights well-maintained. HARDWARE: None in the spine. INDIVIDUAL LEVELS: C1-C2: No significant osseous spinal stenosis. C2-C3: Partial neural foraminal narrowing is noted. The canal appears to be patent. C3-C4: The canal appears to be patent. The neural foraminal openings are markedly crowded by spurring. C4-C5:Marginal spurring is noted with neural foraminal narrowing bilaterally. C5-C6: The canal is mildly narrowed. The neural foraminal openings are mildly narrowed by disc material. C6-C7: Partial neural foraminal crowding is noted to a significant degree. The canal is partially narrowed. C7-T1: No significant osseous spinal stenosis or neural foraminal stenosis. UPPER THORACIC: Incompletely imaged. No significant osseous spinal stenosis or osseous neural foraminal stenosis. SKULL BASE: No significant finding. LUNG APICES: No significant abnormality. NECK SOFT TISSUES: No significant abnormality. OTHER: No other significant findings. IMPRESSION: Significant degenerative and disc pathology is seen particularly affecting the facet joints. Some marginal spurring crowds the neural foraminal openings particularly at C3-C4 and C4-C5. No traumatic injury is seen THIS IS AN ELECTRONICALLY VERIFIED FINAL REPORT 02/08/2023 7:06 PM - Electronically signed by Jeramie JACK: GUERO Report ID: [id number] Reading Location: [place] [id number] CT Head WO Contrast Result Date: 02/08/2023 Narrative: EXAM DESCRIPTION: CT HEAD WO CONTRAST REASON FOR STUDY: Head trauma, minor (Age => 66y) Pt arrived via EMS from [facility]. Pt states she stood up from her couch, twisted her left ankle and fell backward onto her back striking her head on the floor. No LOC. Pt c/o left ankle pain, back pain and neck pain. C collar in place on arrival. TECHNIQUE: Axial images acquired through the brain without intravenous contrast. Images stored on PACS. Automated exposure control was used as a dose optimization technique for this examination. COMPARISON: 10/18/2022 FINDINGS: BRAIN: No hemorrhage, edema or mass effect. No recent infarct. Patchy hypodensity of the cerebral white matter suggests chronic small-vessel ischemic changes. Diffuse atrophy of the brain is noted. EXTRA-AXIAL SPACES: No fluid collections. No masses. CALVARIUM: No fracture. SINUSES/MASTOIDS: No fluid or mucosal thickening. ORBITS: No significant abnormality. OTHER: No other significant abnormality. IMPRESSION: No acute intracranial findings. THIS IS AN ELECTRONICALLY VERIFIED FINAL REPORT 02/08/2023 7:00 PM - Electronically signed by Jeramie JACK: GUERO Report ID: [id number] Reading Location: [id number] XR Foot Left 3 or More Views Result Date: 02/08/2023 Narrative: EXAM DESCRIPTION: XR FOOT LEFT 3 OR MORE VIEWS REASON FOR STUDY: pain EMS from [facility]. Pt states she stood up from her couch, twisted her left ankle and fell backward onto her back striking her head on the floor. No LOC. Pt c/o left ankle pain, back pain and neck pain. C collar in place on arrival. Pt placed on monitor. V\SS. Pt has no c/o dizziness, cp or illness TECHNIQUE: 3 radiographic view(s) of the left foot . COMPARISON: None FINDINGS: Transverse fracture is seen of the proximal base of the 5th metacarpal without significant displacement of fragments. The bones are osteopenic. No other fracture is identified. IMPRESSION: 5th metatarsal fracture THIS IS AN ELECTRONICALLY VERIFIED FINAL REPORT 02/08/2023 6:58 PM - Electronically signed by Jeramie Newberry M.D. KH: GUERO Report ID: [id number] ReadingLocation: [id number] XR Ankle Left 3 or More Views Result Date: 02/08/2023 Narrative: EXAM DESCRIPTION: XR ANKLE LEFT 3 OR MORE VIEWS REASON FOR STUDY: pain EMS from [facility]. Pt states she stood up from her couch, twisted her left ankle and fell backward onto her back striking her head on the floor. No LOC. Pt c/o left ankle pain, back pain and neckpain. C collar in place on arrival. Pt placed on monitor. V\SS. Pt has no c/o dizziness, cp or illness TECHNIQUE: 3 radiographic view(s) of the left ankle . COMPARISON: None FINDINGS: Prominent soft tissue swelling is seen at the lateral aspect of the ankle. The bones are osteopenic. Noted fractureof the proximal aspect of the 5th metacarpal is better seen on the concurrent foot images. No definite fracture is seen of the ankle structures. IMPRESSION: The bones are osteopenic. No definite fracture is seen of the ankle. THIS IS AN ELECTRONICALLY VERIFIED FINAL REPORT 02/08/2023 6:56 PM - Electronically signed by Jeramie JACK: GUERO Report ID: [id number] Reading Location: [id number] XR Hip Left 2 or 3 Views Result Date: 02/08/2023 Narrative: EXAM DESCRIPTION: XR HIP LEFT 2 OR 3 VIEWS REASON FOR STUDY: pain EMS from [facility]. Pt states she stood up from her couch, twisted her left ankle and fell backward onto her back striking her head on the floor. No LOC. Pt c/o left ankle pain, back pain and neck pain.C collar in place on arrival. Pt placed on monitor. V\SS. Pt has no c/o dizziness, cp or illness TECHNIQUE: 2 radiographic view(s) of the left hip . COMPARISON: None FINDINGS: BONES/JOINTS: There is no acute fracture, malalignment or osseous abnormality. Minor degenerative changes are noted. The bones are somewhat osteopenic. SOFT TISSUES: Within normal limits. IMPRESSION: No acute osseous abnormality. THIS IS AN ELECTRONICALLY VERIFIED FINAL REPORT 02/08/2023 6:53 PM - Electronically signed byJeramie Newberry M.D. KH: GUERO Report ID: [id number] Reading Location: [id number] A/P: Principal Problem: Closed nondisplaced fracture of fifth metatarsal bone of left foot, initial encounter Active Problems: Hypertension GERD (gastroesophageal reflux disease) Resolved Problems: No resolved hospital problems. Closed nondisplaced fracture 5th metatarsal bone of left foot Cast placed in ER on 02/08 Dr. Bee will follow up with patient in clinic PT/OT recommending SNF and weight-bearing as tolerated marketing finance manager and social work consulted to assist with placement Pending placement Vitals stable Chronic Comorbidities HTN HLD GERD Dementia Amlodipine 10 mg Fluoxetine 20 mg Losartan 50 mg Protonix 40 mg Raloxifene Code status: Full Code DVT prophylaxis: Lovenox PT/OT: SNF Disposition: Pending placement My total encounter time on 02/11/2023 was 25 minutes which was spent in the activities documented in the note. This includes the time spent prior to the visit and after the visit in direct care of the patient. This time does not include the time spent in any separately reportable services. Voice recognition software [employer] may have been used dictate and transcribe this document. Fashion Styling Intern variances may occur. Despite proofreading, typographical errors may occur. Tiffani Royal MD 02/11/2023 8:52 AM * Razia Aguilar LCSW - 02/11/2023 8:29 AM CDT PASRR completed No Level II required. Individual ID [id number] Assessment ID [id number] Razia Aguilar LCSW 8:29 AM 02/11/2023 * Razia Aguilar LCSW - 02/11/2023 8:19 AM CDT SW continuing to follow for dc planning needs. Weekend SW spoke with pt/family on 02/09 regarding recs for SNF. SNF referrals sent at that time. Updated clinicals sent to SNF via [employer] this am, awaiting accepting facility at this time. SW to continue to follow. UPDATE: 11:40 V/m left for [facility], awaiting response ([phone]). DENISE spoke with Jyoti, mignon with [facility] ([phone]). Reviewing at this time, awaiting determination. Continue to await accepting SNF. Razia Aguilar LCSW [phone] 02/11/2023 8:20 AM * Tiffani Royal MD - 02/10/2023 9:30 AM CDT Images from the original note were not included. General Medicine Daily Progress SUBJECTIVE 02/09/2023 Patient seen and examined at bedside. Patient is pleasantly confused, she does endorse pain with moving her left foot. 02/10/2023 Patient seen and examined at bedside. Patient is pleasantly confused, does endorse pain with ambulation. She did have trouble sleeping last night at bedside sitter is present currently. OBJECTIVE Vitals: 24hr Min/Max: Temp Min: 36.5 ??C (97.7 ??F) Max: 36.9 ??C (98.4 ??F) Pulse Min: 79 Max: 98 BP Min: 109/63 Max: 168/91 Resp Min: 16 Max: 18 SpO2 Min: 94 % Max: 100 % Most Recent : Vitals: 02/10/23727 BP: 168/91 Pulse: 98 Resp: 16 Temp: 36.5 ??C (97.7 ??F) SpO2: 95% I/O last 2 completed shifts: In: 1040 [P.O.:1040] Out: 2250 [Urine:2250] I/O this shift: In: - Out: 300 [Urine:300] O2 Therapy for the past 12 hrs: O2 Therapy 02/10/23727 None (Room air) Physical Exam: Physical Exam Constitutional: Appearance: Normal appearance. HENT: Head: Normocephalic and atraumatic. Cardiovascular: Rate and Rhythm: Normal rate and regular rhythm. Pulmonary: Effort: Pulmonary effort is normal. Breath sounds: Normal breath sounds. Abdominal: Palpations: Abdomen is soft. Musculoskeletal: Comments: Pain on palpation of left foot, range of motion limited due to pain Neurological: General: No focal deficit present. Mental Status: She is alert and oriented to person, place, and time. Lab/Current Medication Review: No results found for this or any previous visit (from the past 24 hour(s)). CT Cervical Spine WO Contrast Result Date: 02/08/2023 Narrative: EXAM DESCRIPTION: CT CERVICAL SPINE WO CONTRAST REASON FOR STUDY: Neck trauma (Age >=65y) Pt arrived via EMS from [facility]. Pt states she stood up from her couch, twisted her left ankle and fell backward onto her back striking her head on the floor. No LOC. Pt c/o left ankle pain, back pain and neck pain. C collar in place on arrival. TECHNIQUE: Axial images through the cervical spine with sagittal and coronal reformatted images. Automated exposure control was used as a dose optimization technique for this examination. COMPARISON: None FINDINGS: ALIGNMENT: Slight anterolisthesis of C 3 on C4 appears to result from facet arthropathy. Other levels are better aligned. VERTEBRAE: No fracture. Vertebral body heights well-maintained. DISCS: Disc heights well-maintained. HARDWARE: None in the spine. INDIVIDUAL LEVELS: C1-C2: No significant osseous spinal stenosis. C2-C3: Partial neural foraminal narrowing is noted. The canal appears to be patent. C3-C4: The canal appears to be patent. The neural foraminal openings are markedly crowded by spurring. C4-C5:Marginal spurring is noted with neural foraminal narrowing bilaterally. C5-C6: The canal is mildly narrowed. The neural foraminal openings are mildly narrowed by disc material. C6-C7: Partial neural foraminal crowding is noted to a significant degree. The canal is partially narrowed. C7-T1: No significant osseous spinal stenosis or neural foraminal stenosis. UPPER THORACIC: Incompletely imaged. No significant osseous spinal stenosis or osseous neural foraminal stenosis. SKULL BASE: No significant finding. LUNG APICES: No significant abnormality. NECK SOFT TISSUES: No significant abnormality. OTHER: No other significant findings. IMPRESSION: Significant degenerative and disc pathology is seen particularly affecting the facet joints. Some marginal spurring crowds the neural foraminal openings particularly at C3-C4 and C4-C5. No traumatic injury is seen THIS IS AN ELECTRONICALLY VERIFIED FINAL REPORT 02/08/2023 7:06 PM - Electronically signed by Jeramie Newberry M.D. KH: GUERO Report ID: [id number] Reading Location: [id number] CT Head WO Contrast Result Date: 02/08/2023 Narrative: EXAM DESCRIPTION: CT HEAD WO CONTRAST REASON FOR STUDY: Head trauma, minor (Age => 66y) Pt arrived via EMS from [facility]. Pt states she stood up from her couch, twisted her left ankle and fell backward onto her back striking her head on the floor. No LOC. Pt c/o left ankle pain, back pain and neck pain. C collar in place on arrival. TECHNIQUE: Axial images acquired through the brain without intravenous contrast. Images stored on PACS. Automated exposure control was used as a dose optimization technique for this examination. COMPARISON: 10/18/2022 FINDINGS: BRAIN: No hemorrhage, edema or mass effect. No recent infarct. Patchy hypodensity of the cerebral white matter suggests chronic small-vessel ischemic changes. Diffuse atrophy of the brain is noted. EXTRA-AXIAL SPACES: No fluid collections. No masses. CALVARIUM: No fracture. SINUSES/MASTOIDS: No fluidor mucosal thickening. ORBITS: No significant abnormality. OTHER: No other significant abnormality.IMPRESSION: No acute intracranial findings. THIS IS AN ELECTRONICALLY VERIFIED FINAL REPORT 02/08/2023 7:00 PM - Electronically signed by Jeramie Newberry M.D. KH: GUERO Report ID: [id number] Reading Location: [id number] XR Foot Left 3 or More Views Result Date: 02/08/2023 Narrative: EXAM DESCRIPTION: XR FOOT LEFT 3 OR MORE VIEWS REASON FOR STUDY: pain EMS from [facility]. Pt states she stood up from her couch, twisted her left ankle and fell backward onto her back striking her head on the floor. No LOC. Pt c/o left ankle pain, back pain and neck pain. C collar in place on arrival. Pt placed on monitor. V\SS. Pt has no c/o dizziness, cp or illness TECHNIQUE: 3 radiographic view(s) of the left foot . COMPARISON: None FINDINGS: Transverse fracture is seen of the proximal base of the 5th metacarpal without significant displacement of fragments. The bones are osteopenic. No other fracture is identified. IMPRESSION: 5th metatarsal fracture THIS IS AN ELECTRONICALLY VERIFIED FINAL REPORT 02/08/2023 6:58 PM - Electronically signed by Jeramie JACK: GUERO Report ID: [id number] ReadingLocation: [id number] XR Ankle Left 3 or More Views Result Date: 02/08/2023 Narrative: EXAM DESCRIPTION: XR ANKLE LEFT 3 OR MORE VIEWS REASON FOR STUDY: pain EMS from [facility]. Pt states she stood up from her couch, twisted her left ankle and fell backward onto her back striking her head on the floor. No LOC. Pt c/o left ankle pain, back pain and neck pain. C collar in place on arrival. Pt placed on monitor. V\SS. Pt has no c/o dizziness, cp or illness TECHNIQUE: 3 radiographic view(s) of the left ankle . COMPARISON: None FINDINGS: Prominent soft tissue swelling is seen at the lateral aspect of the ankle. The bones are osteopenic. Noted fracture of the proximal aspect of the 5th metacarpal is better seen on the concurrent foot images. No definite fracture is seen of the ankle structures. IMPRESSION: The bones are osteopenic. No definite fracture is seen of the ankle. THIS IS AN ELECTRONICALLY VERIFIED FINAL REPORT 02/08/2023 6:56 PM - Electronically signed by Jeramie JACK: GUERO Report ID: [id number] Reading Location: [id number] XR Hip Left 2 or 3 Views Result Date: 02/08/2023 Narrative: EXAM DESCRIPTION: XR HIP LEFT 2 OR 3 VIEWS REASON FOR STUDY: pain EMS from [facility]. Pt states she stood up from her couch, twisted her left ankle and fell backward onto her back striking her head on the floor. No LOC. Pt c/o left ankle pain, back pain and neck pain.C collar in place on arrival. Pt placed on monitor. V\SS. Pt has no c/o dizziness, cp or illness TECHNIQUE: 2 radiographic view(s) of the left hip . COMPARISON: None FINDINGS: BONES/JOINTS: There is no acute fracture, malalignment or osseous abnormality. Minor degenerative changes are noted. The bones are somewhat osteopenic. SOFT TISSUES: Within normal limits. IMPRESSION: No acute osseous abnormality. THIS IS AN ELECTRONICALLY VERIFIED FINAL REPORT 02/08/2023 6:53 PM - Electronically signed byJeramie JACK: GUERO Report ID: [id number] Reading Location: [id number] A/P: Principal Problem: Closed nondisplaced fracture of fifth metatarsal bone of left foot, initial encounter Active Problems: Hypertension GERD (gastroesophageal reflux disease) Resolved Problems: No resolved hospital problems. Closed nondisplaced fracture 5th metatarsal bone of left foot Cast placed in ER on 02/08 Dr. Bee will follow up with patient in clinic PT/OT recommending SNF and weight-bearing as tolerated marketing finance manager and social work consulted to assist with placement Pending placement Chronic Comorbidities HTN HLD GERD Dementia Amlodipine 10 mg Fluoxetine 20 mg Losartan 50 mg Protonix 40 mg Raloxifene Code status: Full Code DVT prophylaxis: Lovenox PT/OT: SNF Disposition: 1-2 days My total encounter time on 02/10/2023 was 25 minutes which was spent in the activities documented in the note. This includes the time spent prior to the visit and after the visit in direct care of the patient. This time does not include the time spent in any separately reportable services. Voice recognition software Bomberbot Direct may have been used dictate and transcribe this document. Fashion Styling Intern variances may occur. Despite proofreading, typographical errors may occur. Tiffani Royal MD 02/10/2023 9:30 AM * Tiffani Royal MD - 02/09/2023 1:36 PM CDT Images from the original note were not included. General Medicine Daily Progress SUBJECTIVE 02/09/2023 Patient seen and examined at bedside. Patient is pleasantly confused, she does endorse pain with moving her left foot. OBJECTIVE Vitals: 24hr Min/Max: Temp Min: 36.6 ??C (97.9 ??F) Max: 36.8 ??C (98.2 ??F) Pulse Min: 79 Max: 93 BP Min: 99/61 Max: 148/81 Resp Min: 16 Max: 23 SpO2 Min: 97 % Max: 100 % Most Recent : Vitals: 02/09/23 1111 BP: 110/60 Pulse: 79 Resp: 16 Temp: 36.6 ??C (97.9 ??F) SpO2: 97% I/O last 2 completed shifts: In: 120 [P.O.:120] Out: - I/O this shift: In: 800 [P.O.:800] Out: 1350 [Urine:1350] O2 Therapy for the past 12 hrs: O2 Therapy 02/09/23 1111 None (Room air) 02/09/23 0724 None (Room air) 02/09/23 0505 None (Room air) Physical Exam: Physical Exam Constitutional: Appearance: Normal appearance. HENT: Head: Normocephalic and atraumatic. Cardiovascular: Rate and Rhythm: Normal rate and regular rhythm. Pulmonary: Effort: Pulmonary effort is normal. Breath sounds: Normal breath sounds. Abdominal: Palpations: Abdomen is soft. Musculoskeletal: Comments: Pain on palpation of left foot, range of motion limited due to pain Neurological: General: No focal deficit present. Mental Status: She is alert and oriented to person, place, and time. Lab/Current Medication Review: Recent Results (from the past 24 hour(s)) CBC with auto differential Collection Time: 02/08/23 8:56 PM Result Value Ref Range WBC 8.8 3.8 - 9.9 K/cumm Hgb 13.0 11.9 - 15.5 g/dL Hct 40.0 35.6 - 45.5 % Plt 204 150 - 400 K/cumm MPV 10.0 9.1 - 12.3 fL RBC 4.10 3.90 - 5.20 M/cumm MCV 97.6 (H) 81.3 - 96.4 fL MCH 31.7 27.1 - 33.3 pg MCHC 32.5 32.3 - 35.7 g/dL RDW CV 13.1 11.1 - 14.9 % RDW SD 47.1 35.7 - 48.1 fL NRBC abs 0.00 0.00 - 0.01 K/cumm Comprehensive metabolic panel Collection Time: 02/08/23 8:56 PM Result Value Ref Range Sodium 138 135 - 145 mmol/L Potassium, pl 4.0 3.3 - 4.9 mmol/L Chloride 103 97 - 110 mmol/L CO2 28 22 - 32 mmol/L Anion gap 7 2 - 15 mmol/L BUN 23 6 - 25 mg/dL Creatinine 1.00 0.60 - 1.10 mg/dL Glucose 96 70 - 199 mg/dL Calcium 9.0 8.5 - 10.3 mg/dL Bilirubin, total 0.3 0.1 - 1.2 mg/dL Protein, pl 6.3 (L) 6.5 - 8.5 g/dL Albumin 3.5 3.5 - 5.0 g/dL Alk phos 84 40 - 130 Units/L ALT 6 (L) 7 - 45 Units/L AST 11 10 - 45 Units/L Creatine kinase (CK), total Collection Time: 02/08/23 8:56 PM Result Value Ref Range CK 51 30 - 200 Units/L Differential, auto Collection Time: 02/08/23 8:56 PM Result Value Ref Range Neutrophil abs 5.8 1.7 - 6.5 K/cumm Imm gran abs 0.0 0.0 - 0.1 K/cumm Lymphocyte abs 2.1 0.8 - 3.3 K/cumm Monocyte abs 0.6 0.2 - 0.8 K/cumm Eosinophil abs 0.2 0.0 - 0.5 K/cumm Basophil abs 0.0 0.0 - 0.1 K/cumm Neutrophil pct 66.5 % Imm gran pct 0.5 % Lymphocyte pct 23.7 % Monocyte pct 6.4 % Eosinophil pct 2.4 % Basophil pct 0.5 % eGFR Collection Time: 02/08/23 8:56 PM Result Value Ref Range eGFR 55 mL/min/1.[address] Cervical Spine WO Contrast Result Date: 02/08/2023 Narrative: EXAM DESCRIPTION: CT CERVICAL SPINE WO CONTRAST REASON FOR STUDY: Neck trauma (Age >=65y) Pt arrived via EMS from [facility]. Pt states she stood up from her couch, twisted her left ankle and fell backward onto her back striking her head on the floor. No LOC. Pt c/o left ankle pain, back pain and neck pain. C collar in place on arrival. TECHNIQUE: Axial images through the cervical spine with sagittal and coronal reformatted images. Automated exposure control was used as a dose optimization technique for this examination. COMPARISON: None FINDINGS: ALIGNMENT: Slight anterolisthesis of C 3 on C4 appears to result from facet arthropathy. Other levels are better aligned. VERTEBRAE: No fracture. Vertebral body heights well-maintained. DISCS: Disc heights well-maintained. HARDWARE: None in the spine. INDIVIDUAL LEVELS: C1-C2: No significant osseous spinal stenosis. C2-C3: Partial neural foraminal narrowing is noted. The canal appears to be patent. C3-C4: The canal appears to be patent. The neural foraminal openings are markedly crowded by spurring. C4-C5:Marginal spurring is noted with neural foraminal narrowing bilaterally. C5-C6: The canal is mildly narrowed. The neural foraminal openings are mildly narrowed by disc material. C6-C7: Partial neural foraminal crowding is noted to a significant degree. The canal is partially narrowed. C7-T1: No significant osseous spinal stenosis or neural foraminal stenosis. UPPER THORACIC: Incompletely imaged. No significant osseous spinal stenosis or osseous neural foraminal stenosis. SKULL BASE: No significant finding. LUNG APICES: No significant abnormality. NECK SOFT TISSUES: No significant abnormality. OTHER: No other significant findings. IMPRESSION: Significant degenerative and disc pathology is seen particularly affecting the facet joints. Some marginal spurring crowds the neural foraminal openings particularly at C3-C4 and C4-C5. No traumatic injury is seen THIS IS AN ELECTRONICALLY VERIFIED FINAL REPORT 02/08/2023 7:06 PM - Electronically signed by Jeramie Newberry M.D. KH: GUERO Report ID: [id number] Reading Location: [id number] CT Head WO Contrast Result Date: 02/08/2023 Narrative: EXAM DESCRIPTION: CT HEAD WO CONTRAST REASON FOR STUDY: Head trauma, minor (Age => 66y) Pt arrived via EMS from [facility]. Pt states she stood up from her couch, twisted her left ankle and fell backward onto her back striking her head on the floor. No LOC. Pt c/o left ankle pain, back pain and neck pain. C collar in place on arrival. TECHNIQUE: Axial images acquired through the brain without intravenous contrast. Images stored on PACS. Automated exposure control was used as a dose optimization technique for this examination. COMPARISON: 10/18/2022 FINDINGS: BRAIN: No hemorrhage, edema or mass effect. No recent infarct. Patchy hypodensity of the cerebral white matter suggests chronic small-vessel ischemic changes. Diffuse atrophy of the brain is noted. EXTRA-AXIAL SPACES: No fluid collections. No masses. CALVARIUM: No fracture. SINUSES/MASTOIDS: No fluidor mucosal thickening. ORBITS: No significant abnormality. OTHER: No other significant abnormality. IMPRESSION: No acute intracranial findings. THIS IS AN ELECTRONICALLY VERIFIED FINAL REPORT 02/08/2023 7:00 PM - Electronically signed by Jeramie JACK: GUERO Report ID: [id number] Reading Location: [id number] XR Foot Left 3 or More Views Result Date: 02/08/2023 Narrative: EXAM DESCRIPTION: XR FOOT LEFT 3 OR MORE VIEWS REASON FOR STUDY: pain EMS from [facility]. Pt states she stood up from her couch, twisted her left ankle and fell backward onto her back striking her head on the floor. No LOC. Pt c/o left ankle pain, back pain and neck pain. C collar in place on arrival. Pt placed on monitor. V\SS. Pt has no c/o dizziness, cp or illness TECHNIQUE: 3 radiographic view(s) of the left foot . COMPARISON: None FINDINGS: Transverse fracture is seen of the proximal base of the 5th metacarpal without significant displacement of fragments. The bones are osteopenic. No other fracture is identified. IMPRESSION: 5th metatarsal fracture THIS IS AN ELECTRONICALLY VERIFIED FINAL REPORT 02/08/2023 6:58 PM - Electronically signed by Jeramie Newberry M.D. KH: GUERO Report ID: [id number] Reading Location: [id number] XR Ankle Left 3 or More Views Result Date: 02/08/2023 Narrative: EXAM DESCRIPTION: XR ANKLE LEFT 3 OR MORE VIEWS REASON FOR STUDY: pain EMS from [facility]. Pt states she stood up from her couch, twisted her left ankle and fell backward onto her back striking her head on the floor. No LOC. Pt c/o left ankle pain, back pain and neck pain. C collar in place on arrival. Pt placed on monitor. V\SS. Pt has no c/o dizziness, cp or illness TECHNIQUE: 3 radiographic view(s) of the left ankle . COMPARISON: None FINDINGS: Prominent soft tissue swelling is seen at the lateral aspect of the ankle. The bones are osteopenic. Noted fracture of the proximal aspect of the 5th metacarpal is better seen on the concurrent foot images. No definite fracture is seen of the ankle structures. IMPRESSION: The bones are osteopenic. No definite fracture is seen of the ankle. THIS IS AN ELECTRONICALLY VERIFIED FINAL REPORT 02/08/2023 6:56 PM - Electronically signed by Jeramie JACK: GUERO Report ID: [id number] Reading Location: [id number] XR Hip Left 2 or 3 Views Result Date: 02/08/2023 Narrative: EXAM DESCRIPTION: XR HIP LEFT 2 OR 3 VIEWS REASON FOR STUDY: pain EMS from [facility]. Pt states she stood up from her couch, twisted her left ankle and fell backward onto her back striking her head on the floor. No LOC. Pt c/o left ankle pain, back pain and neck pain.C collar in place on arrival. Pt placed on monitor. V\SS. Pt has no c/o dizziness, cp or illness TECHNIQUE: 2 radiographic view(s) of the left hip . COMPARISON: None FINDINGS: BONES/JOINTS: There is no acute fracture, malalignment or osseous abnormality. Minor degenerative changes are noted. The bones are somewhat osteopenic. SOFT TISSUES: Within normal limits. IMPRESSION: No acute osseous abnormality. THIS IS AN ELECTRONICALLY VERIFIED FINAL REPORT 02/08/2023 6:53 PM - Electronically signed byJeramie Newberry M.D. KH: GUERO Report ID: [id number] Reading Location: [id number] A/P: Principal Problem: Closed nondisplaced fracture of fifth metatarsal bone of left foot, initial encounter Active Problems: Hypertension GERD (gastroesophageal reflux disease) Resolved Problems: No resolved hospital problems. Closed nondisplaced fracture 5th metatarsal bone of left foot Cast placed in ER on 02/08 Dr. Bee will follow up with patient in clinic PT/OT recommending SNF and weight-bearing as tolerated marketing finance manager and social work consulted to assist with placement Chronic Comorbidities HTN HLD GERD Dementia Amlodipine 10 mg Fluoxetine 20 mg Losartan 50 mg Protonix 40 mg Raloxifene Code status: Full Code DVT prophylaxis: Lovenox PT/OT: SNF Disposition: 1-2 days My total encounter time on 02/09/2023 was 35 minutes which was spent in the activities documented in the note. This includes the time spent prior to the visit and after the visit in direct care of the patient. This time does not include the time spent in any separately reportable services. Voice recognition software [employer] Direct may have been used dictate and transcribe this document. Fashion Styling Intern variances may occur. Despite proofreading, typographical errors may occur. Tiffani Royal MD 02/09/2023 1:36 PM * Radha Argueta MSW - 02/09/2023 1:33 PM CDT IP Social Work Assessment Social History: Prior to admission the patient was independent and lived at [facility]. Home DME: rollator Impressions: FINAL ASSEMBLY WORKER met with patient and adult children to discuss dc planning. Patient was A&Ox 3, pleasant, and cooperative. Patient will likely benefit from Long-Term Facilities at d/c. Patient agreeable with dc plan. Based on a comprehensive family assessment, assistance with instrumental activities of daily livingafter discharge will be provided by SNF. Problem: Patient identified for social work consult due to DC planning. Emerald Myers would benefitfrom continued therapy services at d/c. PT/OT recs for SNF. Goal: Social work will work with Emerald Myers and family for discharge planning needs.Social work assess for possible complex discharge concerns. 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 Social Work Plan: SN[facility] Additional Information: FINAL ASSEMBLY WORKER explained to daughter and patient that patient would need to have a qualifying 3 midnight stay in order to qualify for SNF and FINAL ASSEMBLY WORKER is unsure patient will meet criteria. [facility] is not able to take patient back at this time, so patient may need to private pay at another facility before returning to [facility]. Daughter stated they are not able to afford private pay for 2 different facilities. Primary Care Provider: Iris Delgado MD Assessment: Prior to Admission Support System: Children Home Care Services: No Potential Discharge Needs Patient expects to be discharged to:: Long-Term Facility (02/09/23 1332) Social Determinates of Health: Transportation Needs: No Transportation Needs (02/09/2023) PRAPARE - Transportation Lack of Transportation (Medical): No Lack of Transportation (Non-Medical): No Social Connections: Socially Isolated (02/09/2023) Social Connection and Isolation Panel [NHANES] Frequency of Communication with Friends and Family: More than three times a week Frequency of Social Gatherings with Friends and Family: More than three times a week Attends Taoism Services: Never Active Member of Clubs or Organizations: No Attends Club or Organization Meetings: Never Marital Status: Food Insecurity: No Food Insecurity (02/09/2023) Hunger Vital Sign Worried About Running Out of Food in the Last Year: Never true Ran Out of Food in the Last Year: Never true Housing Stability: Low Risk (02/09/2023) Housing Stability Vital Sign Unable to Pay for Housing in the Last Year: No Number of Places Lived in the Last Year: 1 Unstable Housing in the Last Year: No Financial Resource Strain: Low Risk (02/09/2023) Overall Financial Resource Strain (CARDIA) Difficulty of Paying Living Expenses: Not hard at all Questions encouraged and answered. Will continue to follow progression of care and monitor for further discharge needs. JOSE LUIS Mittal 02/09/2023 1:33 PM * Sruthi Malik, PT - 02/09/2023 9:10 AM CDT Physical Therapy 02/09/23 0590 General Chart Reviewed Yes Session Type Evaluation PT Received On 02/09/23 Safe Environment Arm band checked;Patient found in supine;Gait belt utilized for all out of bed mobility Subjective Agreeable to Therapy Additional Pertinent History Closed nondisplaced fx of L 5th metatarsal, HTN, Syncope Family/Caregiver Present No Precautions Precautions Fall risk Home Living Type of Home Assisted Living Facility (memory care) Prior Function Level of [place] Needs assistance with ADLs;Needs assistance with ambulation;Needs assistance with homemaking Lives With Other (Comment) (memory care) Fall within the last 6 months Yes Cognition Arousal/Alertness Alert Orientation Oriented to person;Oriented to place;Oriented to situation Following Commands Follows one step commands with increased time Bed Mobility Bed Mobility Yes Bed Mobility 1 Bed Mobility From 1 Supine Bed Mobility Type 1 To and from Bed Mobility to 1 Edge of bed Level of Assistance 1 Standby Assist Transfers Transfer Yes Transfer 1 Transfer From 1 Sit Transfer Type 1 To and from Transfer to 1 Stand Technique 1 Sit to stand;Stand to sit Transfer Device 1 Wheeled walker Transfer Level of Assistance 1 Contact Guard Assist Ambulation Ambulation No (Pt unable to shift weight onto her L LE and unable to weightbear through her UE onto walker) RLE Assessment RLE Assessment WFL LLE Assessment LLE Assessment X Strength LLE LLE Overall Strength Deficits Assessment Prognosis Fair Problem List Gait deviations;Decreased strength;Decreased range of motion;Decreased endurance;Impaired balance;Decreased mobility;Decreased coordination;Decreased cognition;Impaired judgement;Decreased safety awareness Barriers to Discharge Current Mobility Status Plan Plan Plan of care initiated Recommendation/Plan PT Recommendation/Plan Long-Term Facility Patient at high risk for Falls;Readmission;Injury due to decreased ability to care for self;Injury due to reduced functional status;Injury due to impaired cognition;Injury due to balance deficits;Injury at home as patient has not returned to prior level of function;Developing impaired skin integrity;Prolonged dependence for self care tasks Recommend SNF due to Risk of injury at home;Unable to safely care for self in the home;Skilled therapy needed to address care for self in the home;Skilled therapy needed to address functional deficits;Skilled therapy needed for patient to return to prior level of independence PT Frequency during current admission Daily Treatment/Interventions during current admission Balance Training;Functional activity;Functional transfer training;Gait training;Range of motion;Stair training;Strengthening;Therapeutic activity;Therapeutic exercise;Transfer training PT Equipment Recommended Walker PT - Next Appointment 02/23/23 PT Evaluation Complete Yes Educated the patient to the role of physical therapy, plan of care, goals of therapy, rationale forprogressing mobility and home safety. Patient was left with all needs met and equipment intact. Mobility and ADL status posted at bedsideand within medical record. Multi-Disciplinary Problems (from Physical Therapy) Active Problems Problem: Mobility Start Date: 02/09/23 Goal Start Date Expected End Date End Date STG - Patient will ambulate 02/09/23 02/16/23 -- Goal Details: Pt will ambulate with 2ww and CGA 15' Problem: Transfers Start Date: 02/09/23 Goal Start Date Expected End Date End Date STG - Transfer from bed to chair 02/09/23 02/16/23 -- Goal Details: Pt will transfer from bed to chair with 2ww and CGA Goal Start Date Expected End Date End Date STG - Patient will transfer sit to and from stand 02/09/23 02/16/23 -- Goal Details: Pt will transfer sit to and from stand with 2ww IND documented in this encounter H&P Notes * Gabriel Russo MD - 02/08/2023 8:42 PM CDT History and Physical Advance Care Planning A family meeting was held to discuss ongoing goals of care. Recommended code status full code Spent >16 min (20 minutes) - 93589 Subjective status post fall HPI: Patient is a 87 y.o. female with chief complaint of pain on left leg after a fall. Patient is poor historian secondary to dementia state. Information is obtained from patient's granddaughter who was at bedside, chart review, and discussion with house staff. From which, it was noted patient was seated on sofa and had attempted to reach for a telephone that was ringing. In doing so, patient lost balance and fell onto the floor and left side of body. As result of which, it is noted patient hit theposterior portion of her head, and it is not noted if patient had lost consciousness as result of this event. Patient resides in a memory care portion of assisted living care facility, and staff were notified of event having taken place. Time of evaluation, patient has had cast placed in emergency room for metatarsal fracture that was identified. Orthopedic surgery consultation was notified in ERand management recommendations for follow-up in clinic setting have been provided. Due to patient residing in memory care site at her current facility, residential administration at the facility haveindicated patient may require rehabilitation assessment prior to return. Patient is referred for observation admission for evaluation by PT OT services and possible placement coordination. Past Medical History: Diagnosis Date Coronary artery disease Dementia (HCC) GERD (gastroesophageal reflux disease) Hypertension Past Surgical History: Procedure Laterality Date CARDIAC CATHETERIZATION N/A Stents x2 Medications Prior to Admission Medication Sig Dispense Refill Last Dose ascorbic acid 500 mg tablet,chewable Take 1 tablet/chew tab (500 mg total) by mouth 2 (two) times aday 02/08/2023 calcium carbonate (OS-JEROD) 1,500 mg (600 mg elemental) tablet Take 1 tablet (1,500 mg total) by mouth 2 (two) times a day 02/08/2023 FLUoxetine (PROzac) 20 mg tablet Take 1 tablet (20 mg total) by mouth daily 02/08/2023 hyoscyamine ER (LEVBID) 0.375 mg 12 hr tablet Take 1 tablet (0.375 mg total) by mouth daily 02/08/2023 loperamide (IMODIUM) 2 mg capsule Take 1 capsule (2 mg total) by mouth 4 (four) times a day as needed for diarrhea (Patient taking differently: Take 1 capsule (2 mg total) by mouth every other day) 12 capsule 0 02/07/2023 raloxifene (EVISTA) 60 mg tablet Take 1 tablet (60 mg total) by mouth daily 02/08/2023 amLODIPine (NORVASC) 10 mg tablet Take 1 tablet (10 mg total) by mouth daily 30 tablet 0 cholestyramine-aspartame (QUESTRAN LIGHT) 4 gram powder in packet Take 1 packet by mouth daily evolocumab (Repatha Syringe) syringe syringe Inject 1 mL (140 mg total) under the skin every 14 (fourteen) days On lansoprazole (PREVACID) 30 mg capsule Take 1 capsule (30 mg total) by mouth every other day losartan (COZAAR) 50 mg tablet Take 1 tablet (50 mg total) by mouth daily 30 tablet 0 Allergies Allergen Reactions Ciprofloxacin Itching Reaction: ITCHING Adhesive Tape-Silicones Other (See comments) Reaction: OTHER REACTION, Sulfa (Sulfonamide Antibiotics) Itching Reaction: ITCHING Social History Tobacco Use Smoking status: Never Smokeless tobacco: Never Substance and Sexual Activity Drug use: Yes Types: Tobacco, Alcohol Comment: (+) smoking stopped more than 30 years ago, (+) alcohol last drink more than 20 years ago,no drug history Sexual activity: None Alcohol Use: Not on file No family history on file. Review of Systems: Review of systems per HPI and otherwise all other systems are negative Objective Vitals: Arrival Vitals Temp 02/08/23 1755 36.7 ??C (98.1 ??F) Pulse 02/08/23 1755 86 Resp 02/08/23 1755 16 BP 02/08/23 1755 143/65 SpO2 02/08/23 1755 99 % Temp src 02/08/23 1755 Oral Heart Rate Source 02/08/23 1800 Monitor Patient Position 02/08/23 1800 Lying BP Location 02/08/23 1800 Left arm FiO2 (%) -- 24hr Min/Max: Temp Min: 36.7 ??C (98.1 ??F) Max: 36.7 ??C (98.1 ??F) Pulse Min: 83 Max: 86 BP Min: 124/69 Max: 148/81 Resp Min: 16 Max: 23 SpO2 Min: 97 % Max: 100 % Most Recent : Vitals: 02/08/23 2149 BP: 138/64 Pulse: 83 Resp: 22 Temp: 36.7 ??C (98.1 ??F) SpO2: 99% No intake/output data recorded. No intake/output data recorded. Physical exam: General Appearance: Alert, cooperative, no distress, appears stated age, well developed, well nourished Head: Normocephalic, without obvious abnormality, atraumatic Eyes: PERRL, conjunctiva/corneas clear, EOM's intact, fundi benign, both eyes, anicteric Ears: Normal TM's and external ear canals, both ears Nose: Nares normal, septum midline, mucosa normal, no drainage or sinus tenderness Throat: Lips, mucosa, and tongue normal; teeth and gums normal, mucous membranes moist Neck: Supple, symmetrical, trachea midline, no adenopathy; thyroid: No enlargement/tenderness/nodules; no carotid bruit or JVD Back: Symmetric, no curvature, ROM normal, no CVA tenderness Lungs: Clear to auscultation bilaterally, respirations unlabored Chest wall: No tenderness or deformity Cardiovascular: Regular rate and rhythm, S1 and S2 normal, no murmur, rub or gallop, no edema, pulses 2+ and symmetric to all extremeties Abdomen: Soft, non-tender, bowel sounds active all four quadrants, no masses, no organomegaly, non-distended Extremities: Lower left extremity insight cast, capillary refill 2+ of all digits Skin: Skin color, texture, turgor normal, no rashes, lesions or bruising Lymph nodes: Cervical, supraclavicular, and axillary nodes normal Neurologic: Alert & oriented x 2, CNII-XII intact. Normal strength, sensation and reflexes throughout Psychosocial: Can not assess Lab/Radiology/Diagnostic Review: Laboratory review: Lab results in the last 24 hours: Recent Results (from the past 24 hour(s)) CBC with auto differential Collection Time: 02/08/23 8:56 PM Result Value Ref Range WBC 8.8 3.8 - 9.9 K/cumm Hgb 13.0 11.9 - 15.5 g/dL Hct 40.0 35.6 - 45.5 % Plt 204 150 - 400 K/cumm MPV 10.0 9.1 - 12.3 fL RBC 4.10 3.90 - 5.20 M/cumm MCV 97.6 (H) 81.3 - 96.4 fL MCH 31.7 27.1 - 33.3 pg MCHC 32.5 32.3 - 35.7 g/dL RDW CV 13.1 11.1 - 14.9 % RDW SD 47.1 35.7 - 48.1 fL NRBC abs 0.00 0.00 - 0.01 K/cumm Comprehensive metabolic panel Collection Time: 02/08/23 8:56 PM Result Value Ref Range Sodium 138 135 - 145 mmol/L Potassium, pl 4.0 3.3 - 4.9 mmol/L Chloride 103 97 - 110 mmol/L CO2 28 22 - 32 mmol/L Anion gap 7 2 - 15 mmol/L BUN 23 6 - 25 mg/dL Creatinine 1.00 0.60 - 1.10 mg/dL Glucose 96 70 - 199 mg/dL Calcium 9.0 8.5 - 10.3 mg/dL Bilirubin, total 0.3 0.1 - 1.2 mg/dL Protein, pl 6.3 (L) 6.5 - 8.5 g/dL Albumin 3.5 3.5 - 5.0 g/dL Alk phos 84 40 - 130 Units/L ALT 6 (L) 7 - 45 Units/L AST 11 10 - 45 Units/L Creatine kinase (CK), total Collection Time: 02/08/23 8:56 PM Result Value Ref Range CK 51 30 - 200 Units/L Differential, auto Collection Time: 02/08/23 8:56 PM Result Value Ref Range Neutrophil abs 5.8 1.7 - 6.5 K/cumm Imm gran abs 0.0 0.0 - 0.1 K/cumm Lymphocyte abs 2.1 0.8 - 3.3 K/cumm Monocyte abs 0.6 0.2 - 0.8 K/cumm Eosinophil abs 0.2 0.0 - 0.5 K/cumm Basophil abs 0.0 0.0 - 0.1 K/cumm Neutrophil pct 66.5 % Imm gran pct 0.5 % Lymphocyte pct 23.7 % Monocyte pct 6.4 % Eosinophil pct 2.4 % Basophil pct 0.5 % eGFR Collection Time: 02/08/23 8:56 PM Result Value Ref Range eGFR 55 mL/min/1.73 m2 , Cardiac Enzymes: No results found for: CKTOTAL , CKMB , CKMBINDEX , TROPONINT , TROPTHS , and POC Glucose: Lab Results Component Value Date GLUCOSE 96 02/08/2023 Imaging review: I have reviewed the result(s) CT head without contrast: IMPRESSION: No acute intracranial findings. CT cervical spine without contrast: IMPRESSION: Significant degenerative and disc pathology is seen particularly affecting the facet joints. Some marginal spurring crowds the neural foraminal openings particularly at C3-C4 and C4-C5. No traumatic injury is seen Left ankle x-ray: IMPRESSION: The bones are osteopenic. No definite fracture is seen of the ankle. Left foot x-ray: IMPRESSION: 5th metatarsal fracture Left hip x-ray: IMPRESSION: No acute osseous abnormality. Electrocardiogram review: I have reviewed the result(s) --- ASSESSMENT/PLAN: Principal Problem: Closed nondisplaced fracture of fifth metatarsal bone of left foot, initial encounter Active Problems: Hypertension GERD (gastroesophageal reflux disease) Resolved Problems: No resolved hospital problems. Assessment /Plan GERD (gastroesophageal reflux disease) Assessment & Plan Continue home regimen Hypertension Assessment & Plan Continue home regimen * Closed nondisplaced fracture of fifth metatarsal bone of left foot, initial encounter Assessment & Plan Status post cast placement PTOT evaluation Orthopedic surgery consultation with outpatient evaluation to be coordinated Social service consult for placement Pain management p.r.n. MDM: LOW Observation admission DVT prophylaxis: Lovenox documented in this encounter Nursing Notes * Marge Zimmer RN - 02/11/2023 6:15 PM CDT [facility] here to transport patient to rehab. Transfer packet with AVS discharge instructions, ortho referral and prescription given to ems. All belongings sent with patient. Discharged with no distress noted. * Marge Zimmer RN - 02/11/2023 3:56 PM CDT Report called and given to Kristen SERRANO at [facility]. All questions answered documented in this encounter ED Notes * Amber Lucas PA - 02/08/2023 6:17 PM CDT ED NOTE Chief Complaint Chief Complaint Patient presents with Fall History of Present Illness The patient is a 87 y.o. female who presents for evaluation s/p fall. Patient reports she got up from the couch to answer the phone when she twisted her left ankle causing her to fall onto her left side and hit the back of her head. Unsure of LOC. patient states she scooted to her door. Complains of slight headache, pain to left hip, left ankle, left foot. Denies dizziness, vision changes, neck pain, chest pain, shortness breath, abdominal pain, back pain. Medical History ALLERGIES: Allergies Allergen Reactions Ciprofloxacin Itching Reaction: ITCHING Adhesive Tape-Silicones Other (See comments) Reaction: OTHER REACTION, Sulfa (Sulfonamide Antibiotics) Itching Reaction: ITCHING MEDICATIONS: Prior to Admission medications Medication Sig Start Date End Date Taking? Authorizing Provider amLODIPine (NORVASC) 10 mg tablet Take 1 tablet (10 mg total) by mouth daily 10/22/22 11/21/22 Rosemary Espitia MD ascorbic acid 500 mg tablet,chewable Take 1 tablet/chew tab (500 mg total) by mouth 2 (two) times aday Sonny Gillespie MD calcium carbonate (OS-JEROD) 1,500 mg (600 mg elemental) tablet Take 1 tablet (1,500 mg total) by mouth 2 (two) times a day Sonny Gillespie MD cholestyramine-aspartame (QUESTRAN LIGHT) 4 gram powder in packet Take 1 packet by mouth daily Sonny Gillespie MD evolocumab (Repatha Syringe) syringe syringe Inject 1 mL (140 mg total) under the skin every 14 (fourteen) days On Sonny Gillespie MD FLUoxetine (PROzac) 20 mg tablet Take 1 tablet (20 mg total) by mouth daily Sonny Gillespie MD hyoscyamine ER (LEVBID) 0.375 mg 12 hr tablet Take 1 tablet (0.375 mg total) by mouth daily Sonny Gillespie MD lansoprazole (PREVACID) 30 mg capsule Take 1 capsule (30 mg total) by mouth every other day Sonny Gillespie MD loperamide (IMODIUM) 2 mg capsule Take 1 capsule (2 mg total) by mouth 4 (four) times a day as needed for diarrhea Patient taking differently: Take 1 capsule (2 mg total) by mouth every other day 04/06/21 Ran Tay DO losartan (COZAAR) 50 mg tablet Take 1 tablet (50 mg total) by mouth daily 10/22/22 11/21/22 Rosemary Espitia MD raloxifene (EVISTA) 60 mg tablet Take 1 tablet (60 mg total) by mouth daily Sonny Gillespie MD PAST MEDICAL HISTORY: Past Medical History: Diagnosis Date Coronary artery disease Dementia (HCC) GERD (gastroesophageal reflux disease) Hypertension PAST SURGICAL HISTORY: Past Surgical History: Procedure Laterality Date CARDIAC CATHETERIZATION N/A Stents x2 FAMILY HISTORY: No family history on file. SOCIAL HISTORY: Social History Tobacco Use Smoking status: Never Smokeless tobacco: Never Substance and Sexual Activity Drug use: Yes Types: Tobacco, Alcohol Comment: (+) smoking stopped more than 30 years ago, (+) alcohol last drink more than 20 years ago,no drug history Sexual activity: None Alcohol Use: Not on file Review of Systems All systems reviewed and are neg or non contributory for this patients presentation today other than as stated in the HPI . Physical Exam BP 138/64 (BP Location: Right arm, Patient Position: Lying) Pulse 83 Temp 36.7 ??C (98.1 ??F) (Oral) Resp 22 Ht 162.6 cm (5' 4 ) Wt 68.7 kg (151 lb 6.4 oz) SpO2 99% BMI 25.99 kg/m?? Physical Exam Vitals and nursing note reviewed. Constitutional: Appearance: Normal appearance. HENT: Head: Normocephalic and atraumatic. Eyes: Extraocular Movements: Extraocular movements intact. Conjunctiva/sclera: Conjunctivae normal. Pupils: Pupils are equal, round, and reactive to light. Neck: Comments: No midline c-spine tenderness. In C-collar Cardiovascular: Rate and Rhythm: Normal rate and regular rhythm. Pulses: Normal pulses. Heart sounds: Normal heart sounds. Pulmonary: Effort: Pulmonary effort is normal. No respiratory distress. Breath sounds: Normal breath sounds. Chest: Chest wall: No tenderness. Abdominal: Palpations: Abdomen is soft. Tenderness: There is no abdominal tenderness. Musculoskeletal: General: Normal range of motion. Cervical back: Normal range of motion and neck supple. Comments: Moving bilateral upper extremities fully. No tenderness. 2+ radial pulses bilaterally. Sensation intact. Full range of motion of right lower extremity. Neurovascularly intact. Tenderness to left lateral hip, left lateral foot dorsal aspect. Swelling ecchymosis to left lateral foot and ankle. 2+ DP pulse. Sensation intact. Good range of motion of left ankle and foot. Skin: General: Skin is warm. Capillary Refill: Capillary refill takes less than 2 seconds. Neurological: General: No focal deficit present. Mental Status: She is alert. Psychiatric: Mood and Affect: Mood normal. Diagnostic Studies / Procedures LABORATORY STUDIES: Labs Reviewed CBC WITH AUTO DIFFERENTIAL - Abnormal Result Value WBC 8.8 Hgb 13.0 Hct 40.0 Plt 204 MPV 10.0 RBC 4.10 MCV 97.6 (*) MCH 31.7 MCHC 32.5 RDW CV 13.1 RDW SD 47.1 NRBC abs 0.00 COMPREHENSIVE METABOLIC PANEL - Abnormal Sodium 138 Potassium, pl 4.0 Chloride 103 CO2 28 Anion gap 7 BUN 23 Creatinine 1.00 Glucose 96 Calcium 9.0 Bilirubin, total 0.3 Protein, pl 6.3 (*) Albumin 3.5 Alk phos 84 ALT 6 (*) AST 11 CREATINE KINASE (CK), TOTAL CK 51 DIFFERENTIAL AUTO Neutrophil abs 5.8 Imm gran abs 0.0 Lymphocyte abs 2.1 Monocyte abs 0.6 Eosinophil abs 0.2 Basophil abs 0.0 Neutrophil pct 66.5 Imm gran pct 0.5 Lymphocyte pct 23.7 Monocyte pct 6.4 Eosinophil pct 2.4 Basophil pct 0.5 EGFR eGFR 55 IMAGING STUDIES: CT Head WO Contrast Final Result CT Cervical Spine WO Contrast Final Result XR Hip Left 2 or 3 Views Final Result XR Ankle Left 3 or More Views Final Result XR Foot Left 3 or More Views Final Result No results found. Procedures ED Course / Medical Decision Making MDM Number of Diagnoses or Management Options Closed nondisplaced fracture of fifth metatarsal bone of left foot, initial encounter Fall, initial encounter Diagnosis management comments: DDX includes: Fracture, dislocation, sprain, contusion, intracranial hemorrhage Amount and/or Complexity of Data Reviewed Tests in the radiology section of CPT??: ordered and reviewed ED Course as of 02/09/23 0356 Time: 02/08 1833 Comment: Patient presents after mechanical fall with headache, left hip pain, left foot ankle pain. By: Amber Lucas PA Time: 02/08 1907 Value: CT Head WO Contrast Comment: IMPRESSION: No acute intracranial findings. By: Amber Lucas PA Time: 02/08 1907 Value: XR Foot Left 3 or More Views Comment: IMPRESSION: 5th metatarsal fracture By: Amber Lucas PA Time: 02/08 1907 Value: XR Ankle Left 3 or More Views Comment: IMPRESSION: The bones are osteopenic. No definite fracture is seen of the ankle. By: Amber Lucas PA Time: 02/09 1908 Value: XR Hip Left 2 or 3 Views Comment: IMPRESSION: No acute osseous abnormality. By: Amber Lucas PA Time: 02/08 1910 Value: CT Cervical Spine WO Contrast Comment: IMPRESSION: Significant degenerative and disc pathology is seen particularly affecting the facet joints. Some marginal spurring crowds the neural foraminal openings particularly at C3-C4 and C4-C5. No traumatic injury is seen By: Amber Lucas PA Time: 02/09 1952 Comment: Attending physician, Dr. Melendez, spoke with Foot and Ankle doctor, Dr. Bee. Recommend put in order for ortho consult and patient can follow up outpatient with him By: Amber Lucas PA Time: 02/09 1952 Comment: Paging hospitalist for admission as patient will likely need rehab By: Amber Lucas PA Time: 02/08 2007 Comment: Dr. Russo accepts admission. By: Amber Lucas PA Medications metoclopramide (REGLAN) 5 mg/mL injection 10 mg (has no administration in time range) ondansetron (ZOFRAN) injection 4 mg (has no administration in time range) baclofen (LIORESAL) tablet 5 mg (has no administration in time range) amLODIPine (NORVASC) tablet 10 mg (10 mg oral Given 02/08/232310) FLUoxetine (PROzac) tab/cap 20 mg (20 mg oral Given 02/08/232310) pantoprazole DR (PROTONIX) extended release tablet 40 mg (40 mg oral Given 02/08/232310) loperamide (IMODIUM) capsule 2 mg (2 mg oral Given 02/08/232311) losartan (COZAAR) tablet 50 mg (50 mg oral Given 02/08/232310) hyoscyamine ER (LEVBID) extended release tablet 375 mcg (375 mcg oral Given 02/08/232311) raloxifene (EVISTA) tablet 60 mg (60 mg oral Given 02/08/232310) traMADoL (ULTRAM) tablet 50 mg (has no administration in time range) enoxaparin (LOVENOX) syringe 40 mg (has no administration in time range) Diagnoses that have been ruled out: None Diagnoses that are still under consideration: None Final diagnoses: Closed nondisplaced fracture of fifth metatarsal bone of left foot, initial encounter Fall, initial encounter Disposition: Admit Follow-Up: No follow-up provider specified. [facility] 02/09/2023 Amber Lucas PA 02/09/23 0356 Cosigned by Viji Melendez DO at 02/10/2023 5:20 AM CDT Associated attestation - Viji Melendez DO - 02/10/2023 5:20 AM CDT ED Attestation I did not see this patient. However, I was personally available for consultation in the ED for thispatient if the Advanced Practice Provider (CURRY) needed any assistance. The CURRY evaluated the patient independently and completed their own examination, documentation, and disposition. * Rocio Drake RN - 02/08/2023 5:51 PM CDT Pt arrived via EMS from [facility]. Pt states she stood up from her couch, twisted her left ankle and fell backward onto her back striking her head on the floor. No LOC. Pt c/o left ankle pain, back pain and neck pain. C collar in place on arrival. Pt placed on monitor. V\SS. Pt has no c/o dizziness, cp or illness. documented in this encounter Miscellaneous Notes * Plan of Care - Marge Zimmer RN - 02/11/2023 3:01 PM CDT Goals: Clinical Goals for the Shift: placement, pain control Summary: Frequent safety checks and comfort rounds provided throughout shift. Safety maintained. Voiding without difficulty. Pain controlled. Remains on room air. Therapy got patient up to chair thisshift, 2 person assist to BSC. Cast remains clean dry and intact to LLE. No complaints voiced at this time. Problem: Health Behavior: Goal: Understanding of discharge needs will improve Outcome: Progressing Problem: Lack of Knowledge: Goal: Ability to state ways to decrease the risk of falls will improve Outcome: Progressing Problem: Safety: Goal: Will remain free from falls Outcome: Progressing Goal: Will remain free from injury from falls Outcome: Progressing Goal: Will remain free from falls and injury in home environment Outcome: Progressing Problem: Activity: Goal: Mobility will improve Outcome: Progressing Problem: Lack of Knowledge: Goal: Understanding of ways to prevent future skin breakdown will improve Outcome: Progressing Goal: Ability to identify appropriate dietary choices will improve Outcome: Progressing Problem: Nutritional: Goal: Dietary intake will improve Outcome: Progressing Goal: Ability to maintain a balanced intake and output will improve Outcome: Progressing Problem: Skin Integrity: Goal: Risk for impaired skin integrity will decrease Outcome: Progressing Goal: Ability to demonstrate warm and dry skin will improve Outcome: Progressing Goal: Circulation will improve to fullest extent possible Outcome: Progressing Problem: Activity: Goal: Ability to perform activities at highest level will improve Outcome: Progressing Goal: Mobility will improve Outcome: Progressing Problem: Lack of Knowledge: Goal: Ability to verbalize activity precautions or restrictions will improve Outcome: Progressing Goal: Verbalization of understanding the information provided will improve Outcome: Progressing Goal: Knowledge of disease or condition will improve Outcome: Progressing Problem: Coping: Goal: Verbalizations of decreased anxiety will increase Outcome: Progressing Goal: Ability to identify and utilize appropriate coping strategies will improve Outcome: Progressing Goal: Ability to maintain and perform role responsibilities to the fullest extent possible will improve Outcome: Progressing Problem: Health Behavior: Goal: Identification of resources available to assist in meeting health care needs will improve Outcome: Progressing Problem: Nutritional: Goal: Maintenance of adequate nutrition will improve Outcome: Progressing Problem: Physical Regulation: Goal: Postoperative complications will be avoided or minimized Outcome: Progressing Goal: Will remain free from infection Outcome: Progressing Goal: Diagnostic test results will improve Outcome: Progressing Problem: Respiratory: Goal: Respiratory status will improve Outcome: Progressing Problem: Safety: Goal: Ability to remain free from injury will improve Outcome: Progressing Problem: Sensory: Goal: Pain level will decrease Outcome: Progressing Problem: Skin Integrity: Goal: Skin integrity will be maintained Outcome: Progressing Problem: Tissue Perfusion: Goal: Peripheral tissue perfusion will improve Outcome: Progressing Problem: Lack of Knowledge: Goal: Ability to develop a pain control plan will improve Outcome: Progressing Goal: Ability to identify pain intensity on a pain scale and rate it consistently will improve Outcome: Progressing Goal: Ability to notify healthcare provider of pain before it becomes unmanageable or unbearable will improve Outcome: Progressing Problem: Medication: Goal: Satisfaction with pain management regimen will improve Outcome: Progressing Problem: Sensory: Goal: Ability to identify factors that increase the pain will improve Outcome: Progressing Goal: Pain level will decrease Outcome: Progressing * Initial Assessments - Ramya Laughlin RN - 02/11/2023 2:04 PM CDT CM Initial Assessment Interview Note Information Obtained From: Adult child (02/11/231401) Admission Source: ED Impression: Pt presented s/p fall at [facility]. Hx dementia, HTN. Plan Includes: XR noted fx of fifth metatarsal of left foot. Cast placed. PT/OT recommending SNF. D/C plan: Pt from memory care [facility]. SW following for SNF placement. Primary Source of Transportation: Does the patient need discharge transport arranged?: No (02/11/231401) Health Insurance Coverage: Medicare Prescription Coverage: [facility] Pharmacy: [place], [place] - [address] [facility] [id number] Primary Care Provider: Iris Delgado MD Prior to Admission: Functional Status: Moderate assist with ADLs Primary Caregiver: Facility staff Support System: Children Home Care Services: No Durable Medical Equipment: Rollator Living Arrangements: Alone Type of Residence: Assisted living Care Facility Name: [facility] (02/09/23 5130) SDOH: Transportation: In the past 12 months, has lack of transportation kept you from medical appointments or from getting medications?: No In the past 12 months, has lack of transportation kept you from meetings, work, or from getting things needed for daily living?: No (02/11/231403) Financial Resource: How hard is it for you to pay for the very basics like food, housing, medical care, and heating?: Not hard at all (02/11/231403) Housing: In the last 12 months, was there a time when you were not able to pay the mortgage or rent on time?: No In the last 12 months, how many places have you lived?: 1 In the last 12 months, was there a time when you did not have a steady place to sleep or slept in ashelter (including now)?: No (10/23/23 1404) Social Connections: In a typical week, how many times do you talk on the phone with family, friends, or neighbors?: More than three times a week How often do you get together with friends or relatives?: More than three times a week How often do you attend congregation or zoroastrian services?: Never Do you belong to any clubs or organizations such as congregation groups, unions, fraternal or athletic groups, or school groups?: No How often do you attend meetings of the clubs or organizations you belong to?: Never Are you , , , , never , or living with a partner?: (02/11/23 1404) Food Insecurity: Within the past 12 months, you worried that your food would run out before you got the money to buymore.: Never true Within the past 12 months, the food you bought just didn't last and you didn't have money to get more.: Never true (02/11/23 140) Patient expects to be Discharged to: Long-Term Facility, (02/11/23 1402) Patient's Identified Problem/Goal Problem: Ensure acute medical needs are met and that patient has a safe discharge plan. Goal: Secure a discharge plan that patient/family are agreeable with and ensure patient has continuum of care. Case management will follow for discharge planning and send referrals as needed. Ramya Laughlin RN * [facility] Note - Razia Aguilar LCSW - 02/11/2023 8:18 AM CDT Images from the original note were not included. Patient Information: Patient Header Patient Information Patient Name: EMERALD MYERS Date of 1935 (87 years) Sex: Female , Comprehensive Nursing Documentation Attending Provider: Tiffani Royal MD Allergies: Ciprofloxacin, Adhesive Tape-silicones, Sulfa (Sulfonamide Antibiotics) Isolation: None Infection: None Code Status: FULL Ht: 162.6 cm (5' 4 ) Wt: 68.7 kg (151 lb 6.4 oz) Admission Cmt: None Principal Problem: Closed nondisplaced fracture of fifth metatarsal bone of left foot, initial encounter [S92.355A] Elopement Risk Date/Time Risk/Reason for Elopement User 02/08/232123 No risk DC Intake/Output 02/08/23 07 - 02/09/23 0659 02/09/23 07 - 02/10/23 0659 02/10/23 0700 - 02/11/23 0659 Total Total 5226-9054 7709-8675 4501-5117 Total Intake (ml) 120 1040 -- 400 -- 400 Output (ml) -- 2250 300 [phone] Net (ml) 120 -1210 -300 -200 -200 -700 Last Weight 68.7 kg (151 lb 6.4 oz) -- -- -- -- -- Patient Lines/Drains/Airways Status Active Airway / Central venous catheter / Drain / Epidural cathether / Intraosseous line / Peripherally inserted central catheter / Peripheral intravenous line / Arterial line None Active Wound Assessment Active Wound / Pressure ulcer / Brice / Negative Pressure Wound / Incision None Gold Fall Risk Flowsheet Row Most Recent Value Prior Fall Event (Autopopulated from EMR) None found ............filed at 02/11/2023699 History of Falling 25 ............filed at 02/11/2023699 Secondary Diagnosis 15 ............filed at 02/11/2023699 Ambulatory Aids 0 ............filed at 02/11/2023699 Intravenous Therapy/Heparin/Saline Lock 0 ............filed at 02/11/2023699 Gait/Transferring 20 ............filed at 02/11/2023699 Mental Status 15 ............filed at 02/11/2023699 Gold Fall Risk Score 75 ............filed at 02/11/2023699 Vital Signs 02/10 Most Recent Temp (??C) 36.5 - 37 36.6 36.6 (97.9) 02/11 739 Pulse 82 - 98 83 83 02/11 739 Resp 16 - 18 20 20 02/11 0739 SpO2 (%) 95 - 98 97 97 02/11 739 BP 112/98 - 168/91 140/53 140/53 02/11 0739 MAP (mmHg) 78 - 113 79 79 02/11 07 Non Violent Restraint Flowsheet Row Most Recent Value Restraint Alternative (NV) Less Restrictive Alternative Bed Exit Alarm filed at 02/11/2023 0118 Restraint Reason (NV) Restraint Type Every 2 Hours (NV) Default Flowsheet Data (most recent) Endurance Tests No documentation. Nursing Nutrition Feeding Level of Assistance 02/10 1300 Able to feed self 02/09 1815 Able to feed self 02/09 1445 Able to feed self 02/09 0955 Able to feed self Appetite 02/10 1300 Good 02/09 1815 Good 02/09 1445 Good 02/09 0955 Good Nursing Mobility Activity 02/11 0756 Resting in bed 02/11 0600 Resting in bed 02/11 0410 Resting in bed 02/11 0200 Resting in bed 02/11 0118 Resting in bed 02/11 0000 Resting in bed 02/10 2300 Resting in bed 02/10 2200 Resting in bed 02/10 2000 Resting in bed 02/10 1925 Resting in bed 02/10 1800 Resting in bed 02/10 1600 Resting in bed 02/10 1400 Sleeping 02/10 1200 Resting in bed 02/10 1000 Sleeping 02/10 0800 Resting in bed 02/10 0510 Resting in bed 02/10 0400 Resting in bed 02/10 0311 Resting in bed 02/10 0150 Resting in bed 02/10 0000 Resting in bed 02/09 2300 Resting in bed 02/09 2100 Resting in bed 02/09 2000 Resting in bed 02/09 1800 Resting in bed 02/09 1600 Resting in bed 02/09 1510 Resting in bed 02/09 1400 Resting in bed 02/09 1352 Resting in bed 02/09 1306 Resting in bed 02/09 1200 Resting in bed 02/09 1139 Resting in bed (Comment: assist with bedpan) 02/09 1041 Resting in bed 02/09 1007 Resting in bed (Comment: assist with bedpan) 02/09 0931 Dangle;Resting in bed (Comment: up to side of bed with PT) 02/09 0859 Sleeping;Resting in bed 02/09 0800 Resting in bed 02/09 0745 Resting in bed 02/09 0710 Resting in bed;Sleeping 02/09 0600 Sleeping;Resting in bed 02/09 0514 Sleeping 02/09 0400 Sleeping;Resting in bed 02/09 0347 Sleeping 02/09 0346 Sleeping 02/09 0200 Sleeping;Resting in bed 02/09 0146 Sleeping 02/09 0000 Sleeping;Resting in bed 02/08 2345 Sleeping 02/08 2200 Sleeping;Resting in bed 02/08 2100 Resting in bed Assistive Device 02/09 0931 Walker Ambulation Response 02/09 1007 Tolerated well 02/09 0931 Tolerated fairly well 02/09 0600 Tolerated fairly well 02/09 0400 Tolerated fairly well 02/09 0200 Tolerated fairly well 02/09 0000 Tolerated fairly well 02/08 2345 Tolerated fairly well 02/08 2200 Tolerated fairly well 02/08 2100 Tolerated fairly well Repositioned 02/11 0756 Bed placed in chair position (Comment: eating breakfast) 02/11 0600 Turns self;Supine 02/11 0410 Turns self;Supine 02/11 0200 Turns self;Semi Regalado's 02/11 0118 Turns self;Semi Regalado's 02/11 0000 Supine;Pillow support 02/10 2300 Supine;Pillow support 02/10 2200 Right side;Pillow support 02/10 2100 Right side;Pillow support 02/10 2000 Turns self;Semi Regalado's;Pillow support 02/10 1925 Turns self;Semi Regalado's 02/10 1800 Turns self;Left side;Pillow support 02/10 1600 Turns self;Semi Regalado's 02/10 1400 Turns self;Right side;Pillow support 02/10 1200 Turns self;Right side;Pillow support 02/10 1100 Turns self;Right side;Pillow support 02/10 1000 Turns self;Semi Regalado's 02/10 0800 Turns self;Right side;Left side;Semi Regalado's 02/10 0510 Turns self;Semi Regalado's 02/10 0400 Turns self;Semi Regalado's 02/10 0311 Turns self;Semi Regalado's 02/10 0150 Turns self;Semi Regalado's 02/10 0000 Turns self;Semi Regalado's 02/09 2300 Turns self;Semi Regalado's 02/09 2100 Turns self;Semi Regalado's 02/09 2000 Turns self;Semi Regalado's 02/09 1900 Turns self;Semi Regalado's 02/09 1800 Turns self;Semi Regalado's 02/09 1600 Turns self;Right side;Pillow support 02/09 1510 Turns self;Semi Regalado's;Pillow support 02/09 1400 Turns self;Right side;Pillow support 02/09 1352 Turns self;Semi Regalado's;Pillow support 02/09 1306 Turns self;Semi Regalado's;Pillow support 02/09 1200 Turns self;Semi Regalado's 02/09 1139 Semi Regalado's;Pillow support 02/09 1041 Turns self;Semi Regalado's;Pillow support 02/09 1037 Turns self;Left side;Pillow support 02/09 1007 Turns self 02/09 0931 Semi Regalado's;Pillow support 02/09 0859 Turns self;Semi Regalado's;Pillow support 02/09 0800 Turns self;Semi Regalado's 02/09 0745 Turns self;Semi Regalado's;Pillow support 02/09 0710 Turns self;Pillow support;Semi Regalado's 02/09 0600 Semi Regalado's;Refused by patient/family 02/09 0514 Semi Regalado's;Pillow support;Refused by patient/family 02/09 0400 Semi Regalado's;Refused by patient/family 02/09 0347 Semi Regalado's;Pillow support;Refused by patient/family 02/09 0346 Semi Regalado's 02/09 0200 Semi Regalado's;Refused by patient/family 02/09 0146 Semi Regalado's;Refused by patient/family 02/09 0000 Semi Regalado's;Refused by patient/family 02/08 2345 Semi Regalado's 02/08 2200 Right side 02/08 2100 Semi Regalado's Positioning Frequency 02/11 0756 Able to turn self 02/11 0600 Able to turn self 02/11 0410 Able to turn self 02/11 0200 Able to turn self 02/11 0118 Able to turn self 02/11 0000 Able to turn self 10 2300 Able to turn self 10/ 2200 Able to turn self 02/10 2000 Able to turn self 10 1925 Able to turn self 10/ 1800 Able to turn self 10/ 1600 Able to turn self 10/ 1400 Able to turn self 10/ 1200 Able to turn self 10/ 1000 Able to turn self 10/ 0800 Able to turn self 10/ 0510 Able to turn self 10/ 0400 Able to turn self 10/ 0311 Able to turn self 10/ 0150 Able to turn self 10/ 0000 Able to turn self 10/21 2300 Able to turn self 10/21 2100 Able to turn self 10/ 2000 Able to turn self 10/21 1900 Able to turn self 10/21 1800 Able to turn self 10/21 1600 Able to turn self 10/ 1510 Able to turn self 10/21 1400 Able to turn self 10/21 1352 Able to turn self 10/ 1306 Able to turn self 10/21 1200 Able to turn self 10/21 1139 Able to turn self 10/21 1041 Able to turn self 10/21 1037 Able to turn self 10/21 1007 Able to turn self 10/ 0931 Able to turn self 10/ 0859 Able to turn self 10/ 0800 Able to turn self 10/ 0745 Able to turn self 10/ 0710 Able to turn self / 0600 Every 2 hours 02/09 0514 Every 2 hours 02/09 0400 Every 2 hours 02/09 0347 Every 2 hours 02/09 0346 Every 2 hours 02/09 0200 Every 2 hours 02/09 0146 Every 2 hours 02/09 0000 Every 2 hours 02/08 2345 Every 2 hours 02/08 2200 Every 2 hours 02/08 2100 Every 2 hours Head of Bed Elevated 02/11 0756 Self regulated 02/11 0600 Self regulated 02/11 0410 Self regulated 02/11 0200 Self regulated 02/11 0118 Self regulated 02/11 0000 Self regulated 02/10 2300 Self regulated 02/10 2200 Self regulated 02/10 2000 Self regulated 02/10 1925 Self regulated 02/10 1800 HOB 30 02/10 1600 HOB 30 02/10 1400 HOB 30 02/10 1200 HOB 30 02/10 1000 HOB 30 10/22 0800 HOB 30 02/10 0510 Self regulated 02/10 0400 Self regulated 02/10 0311 Self regulated 02/10 0150 Self regulated 02/10 0000 Self regulated 02/09 2300 Self regulated 02/09 2100 Self regulated 02/09 2000 Self regulated 02/09 1900 Self regulated 02/09 1800 HOB 30 02/09 1600 HOB 30 02/09 1510 Self regulated 02/09 1400 HOB 30 02/09 1352 Self regulated 02/09 1306 HOB 90 (Comment: eating lunch) 02/09 1200 HOB 30 02/09 1139 HOB 30 02/09 1041 HOB 30 02/09 1037 HOB 30 02/09 1007 Self regulated 02/09 0931 HOB 90 (Comment: sat up for breakfast after PT) 02/09 0859 HOB 30 02/09 0800 HOB 30 02/09 0745 Self regulated 02/09 0710 Self regulated 02/09 0600 HOB 30 02/09 0514 HOB 30 02/09 0400 HOB 30 02/09 0347 HOB 30 02/09 0346 HOB 30 02/09 0200 HOB 30 02/09 0146 HOB 30 02/09 0000 HOB 30 02/08 2345 HOB 30 02/08 2200 HOB 30 02/08 2100 HOB 45 Heels/Feet 02/11 0756 Heels elevated off bed 02/11 0600 Heels elevated off bed;Foot of bed elevated 02/11 0410 Heels elevated off bed;Foot of bed elevated 02/11 0200 Heels elevated off bed;Foot of bed elevated 02/11 0000 Heels elevated off bed;Foot of bed elevated 02/10 2300 Heels elevated off bed;Foot of bed elevated 02/10 2200 Heels elevated off bed 02/10 2000 Heels elevated off bed 02/10 1925 Heels elevated off bed 02/10 1800 Heels elevated off bed 02/10 1600 Heels elevated off bed 02/10 1400 Heels elevated off bed 02/10 1200 Heels elevated off bed 02/10 1000 Heels elevated off bed 02/10 0800 Heels elevated off bed 02/10 0510 Heels elevated off bed 02/10 0400 Heels elevated off bed 02/10 0311 Heels elevated off bed 02/10 0150 Heels elevated off bed 02/10 0000 Heels elevated off bed 02/09 2100 Heels elevated off bed 02/09 2000 Heels elevated off bed 02/09 1900 Heels elevated off bed 02/09 1800 Heels elevated off bed 02/09 1600 Heels elevated off bed 02/09 1510 Heels elevated off bed 10 1400 Heels elevated off bed 02/09 1352 Heels elevated off bed 02/09 1306 Heels elevated off bed 02/09 1200 Heels elevated off bed 02/09 1139 Heels elevated off bed 02/09 1041 Heels elevated off bed 02/09 1037 Heels elevated off bed 02/09 0710 Heels elevated off bed 02/09 0600 Heels elevated off bed 02/09 0514 Heels elevated off bed 02/09 0400 Heels elevated off bed 02/09 0347 Heels elevated off bed 02/09 0346 Heels elevated off bed 02/09 0200 Heels elevated off bed 02/09 0146 Heels elevated off bed 02/09 0000 Heels elevated off bed 02/08 2345 Heels elevated off bed 02/08 2200 Heels elevated off bed 02/08 2100 Heels elevated off bed Range of Motion 02/10 0800 All extremities Default Flowsheet Data (last 24 hours) Sitter Documentation Row Name 02/10/23 1200 02/10/23 1000 Sitter Documentation Sitter Discontinued Continued Sitter Type -- Medical/Safety RN Safety Check -- No unsafe behaviors observed, safe environment maintained , Meds and Admin Active Only All Meds/Most Recent Administrations metoclopramide (REGLAN) 5 mg/mL injection 10 mg [[id number]] Ordering Provider: Gabriel Russo MD Status: Verified Ordered On: 02/08/232043 Start: 02/08/232042 Ordered Dose (Remaining/Total): 10 mg (--/--) Route: intravenous Frequency: Every 6 hours PRN Ordered Rate/Order Duration: -- / 1 Minutes (No admins scheduled or recorded for this medication) baclofen (LIORESAL) tablet 5 mg [[id number]] Ordering Provider: Gabriel Russo MD Status: Verified Ordered On: 02/08/232043 Start: 02/08/232043 Ordered Dose (Remaining/Total): 5 mg (--/--) Route: oral Frequency: Every 8 hours PRN Ordered Rate/Order Duration: -- / -- (No admins scheduled or recorded for this medication) amLODIPine (NORVASC) tablet 10 mg [[id number]] Ordering Provider: Gabriel Russo MD Status: Dispensed Ordered On: 02/08/232046 Start: 02/08/232047 Ordered Dose (Remaining/Total): 10 mg (--/--) Route: oral Frequency: Daily Ordered Rate/Order Duration: -- / -- Timestamps Action Dose Route Other Information 02/11/23752 Given 10 mg oral Performed by: Marge Zimmer RN Scanned Package: [id number] FLUoxetine (PROzac) tab/cap 20 mg [[id number]] Ordering Provider: Gabriel Russo MD Status: Dispensed Ordered On: 02/08/232046 Start: 02/08/232047 Ordered Dose (Remaining/Total): 20 mg (--/--) Route: oral Frequency: Daily Ordered Rate/Order Duration: -- / -- Timestamps Action Dose Route Other Information 02/11/23752 Given 20 mg oral Performed by: Marge Zimmer RN Scanned Package: [id number], [id number] (PROTONIX) extended release tablet 40 mg [[id number]] Ordering Provider: Gabriel Russo MD Status: Dispensed Ordered On: 02/08/232046 Start: 02/08/232047 Ordered Dose (Remaining/Total): 40 mg (--/--) Route: oral Frequency: Daily Ordered Rate/Order Duration: -- / -- Admin Instructions: Do not crush, chew, cut, dissolve, open or otherwise manipulate tablet/capsule. Timestamps Action Dose Route Other Information 02/11/23752 Given 40 mg oral Performed by: Marge Zimmer RN Scanned Package: [id number] loperamide (IMODIUM) capsule 2 mg [[id number]] Ordering Provider: Gabriel Russo MD Status: Dispensed Ordered On: 02/08/232046 Start: 02/08/232047 Ordered Dose (Remaining/Total): 2 mg (--/--) Route: oral Frequency: Every other day Ordered Rate/Order Duration: -- / -- Admin Instructions: Maximum recommended dose 16 mg/day Timestamps Action Dose Route Other Information 02/10/23 0850 Given 2 mg oral Performed by: Jocelynn Cameron RN Scanned Package: [id number] losartan (COZAAR) tablet 50 mg [[id number]] Ordering Provider: Gabriel Russo MD Status: Dispensed Ordered On: 02/08/232046 Start: 02/08/232047 Ordered Dose (Remaining/Total): 50 mg (--/--) Route: oral Frequency: Daily Ordered Rate/Order Duration: -- / -- Timestamps Action Dose Route Other Information 02/11/23752 Given 50 mg oral Performed by: Marge Zimmer RN Scanned Package: [id number] hyoscyamine ER (LEVBID) extended release tablet 375 mcg [[id number]] Ordering Provider: Gabriel Russo MD Status: Dispensed Ordered On: 02/08/232134 Start: 02/08/232214 Ordered Dose (Remaining/Total): 375 mcg (--/--) Route: oral Frequency: Daily Ordered Rate/Order Duration: -- / -- Admin Instructions: Do not crush, break, or open. Timestamps Action Dose Route Other Information 02/11/23752 Given 375 mcg oral Performed by: Marge Zimmer RN Scanned Package: [id number] raloxifene (EVISTA) tablet 60 mg [[id number]] Ordering Provider: Gabriel Russo MD Status: Dispensed Ordered On: 02/08/232136 Start: 02/08/232214 Ordered Dose (Remaining/Total): 60 mg (--/--) Route: oral Frequency: Daily Ordered Rate/Order Duration: -- / -- Admin Instructions: Do not crush, break, or open. Timestamps Action Dose Route Other Information 02/11/23752 Given 60 mg oral Performed by: Marge Zimmer RN Scanned Package: [id number] traMADoL (ULTRAM) tablet 50 mg [[id number]] Ordering Provider: Gabriel Russo MD Status: Dispensed Ordered On: 02/08/232227 Start: 02/08/232227 Ordered Dose (Remaining/Total): 50 mg (--/--) Route: oral Frequency: Every 8 hours PRN Ordered Rate/Order Duration: -- / -- Timestamps Action Dose Route Other Information 02/10/232021 Given 50 mg oral Performed by: Felicia Nino RN Scanned Package: [id number] enoxaparin (LOVENOX) syringe 40 mg [[id number]] Ordering Provider: Gabriel Russo MD Status: Dispensed Ordered On: 02/09/23203 Start: 02/09/232099 Ordered Dose (Remaining/Total): 40 mg (--/--) Route: subcutaneous Frequency: Daily (for enoxaparin) Ordered Rate/Order Duration: -- / -- Timestamps Action Dose Route / Site Other Information 02/10/232022 Given 40 mg subcutaneous Left Lower Abdomen Performed by: Felicia Nino RN Scanned Package: [id number] sodium chloride 0.9% flush 0.5-20 mL [[id number]] Ordering Provider: Tiffani Royal MD Status: Verified Ordered On: 02/09/23745 Start: 02/09/23829 Ordered Dose (Remaining/Total): 0.5-20 mL (--/--) Route: intra-catheter Frequency: Every 8 hours scheduled Ordered Rate/Order Duration: -- / -- Admin Instructions: Flush volume based on line type and size. (No admins scheduled or recorded for this medication) sodium chloride 0.9% flush 0.5-20 mL [[id number]] Ordering Provider: Tiffani Royal MD Status: Verified Ordered On: 02/09/23745 Start: 02/09/23744 Ordered Dose (Remaining/Total): 0.5-20 mL (--/--) Route: intra-catheter Frequency: As needed Ordered Rate/Order Duration: -- / -- Admin Instructions: Flush volume based on line type and size. Flush before and after each use. (No admins scheduled or recorded for this medication) Carrier Fluids for Secondary Infusion - 0.9% Sodium Chloride [[id number]] Ordering Provider: Tiffani Royal MD Status: Verified Ordered On: 02/09/23745 Start: 02/09/23744 Ordered Dose (Remaining/Total): 30 mL (--/--) Route: intravenous Frequency: As needed Ordered Rate/Order Duration: -- / -- Admin Instructions: 0-250 ml/hr to flush line after IV infusions when no maintenance IV ordered. Infuse 30mL at the same rate as the secondary infusion. Run as primary IV, not intended for KVO. (No admins scheduled or recorded for this medication) ondansetron ODT (ZOFRAN-ODT) disintegrating tablet 4 mg [[id number]] Ordering Provider: Tiffani Royal MD Status: Verified Ordered On: 02/09/23745 Start: 02/09/23744 Ordered Dose (Remaining/Total): 4 mg (--/--) Route: oral Frequency: Every 6 hours PRN Ordered Rate/Order Duration: -- / -- (No admins scheduled or recorded for this medication) ondansetron (ZOFRAN) injection 4 mg [[id number]] Ordering Provider: Tiffani Royal MD Status: Verified Ordered On: 02/09/23745 Start: 02/09/23744 Ordered Dose (Remaining/Total): 4 mg (--/--) Route: intravenous Frequency: Every 6 hours PRN Ordered Rate/Order Duration: -- / 2 Minutes (No admins scheduled or recorded for this medication) polyethylene glycol (MIRALAX) packet 17 g [[id number]] Ordering Provider: Tiffani Royal MD Status: Verified Ordered On: 02/09/23745 Start: 02/09/23744 Ordered Dose (Remaining/Total): 17 g (--/--) Route: oral Frequency: Daily PRN Ordered Rate/Order Duration: -- / -- (No admins scheduled or recorded for this medication) acetaminophen (TYLENOL) tablet 650 mg [[id number]] Ordering Provider: Tiffani Royal MD Status: Dispensed Ordered On: 02/09/23745 Start: 02/09/23745 Ordered Dose (Remaining/Total): 650 mg (--/--) Route: oral Frequency: Every 4 hours PRN Ordered Rate/Order Duration: -- / -- Timestamps Action Dose Route Other Information 02/10/23 0850 Given 650 mg oral Performed by: Jocelynn Cameron, RN Comments: lle Scanned Package: [id number], [id number] , OT Eval and Treat Last 72 Hours OT Evaluation No documentation. OT Treatment No documentation. OT Notes Notes from 02/09/23 through 02/11/23 No notes of this type exist for this encounter. , PT Eval and Treat Last 72 Hours PT Evaluation Row Name 02/09/23 0910 Chart Reviewed Yes -KG Session Type Evaluation -KG Safe Environment Arm band checked;Patient found in supine;Gait belt utilized for all out of bed mobility -KG Subjective Agreeable to Therapy -KG Additional Pertinent History Closed nondisplaced fx of L 5th metatarsal, HTN, Syncope -KG Family/Caregiver Present No -KG Precautions Fall risk -KG Type of Home Assisted Living Facility memory care -KG Level of [place] Needs assistance with ADLs;Needs assistance with ambulation;Needs assistance with homemaking -KG Lives With Other (Comment) memory care -KG Fall within the last 6 months Yes -KG Arousal/Alertness Alert -KG Orientation Oriented to person;Oriented to place;Oriented to situation -KG Following Commands Follows one step commands with increased time -KG Bed Mobility Yes -KG Bed Mobility From 1 Supine -KG Bed Mobility Type 1 To and from -KG Bed Mobility to 1 Edge of bed -KG Level of Assistance 1 Standby Assist -KG Transfer Yes -KG Transfer From 1 Sit -KG Transfer Type 1 To and from -KG Transfer to 1 Stand -KG Technique 1 Sit to stand;Stand to sit -KG Transfer Device 1 Wheeled walker -KG Transfer Level of Assistance 1 Contact Guard Assist -KG Ambulation No Pt unable to shift weight onto her L LE and unable to weightbear through her UE onto walker -KG RLE Assessment WFL -KG LLE Assessment X -KG LLE Overall Strength Deficits -KG Prognosis Fair -KG Problem List Gait deviations;Decreased strength;Decreased range of motion;Decreased endurance;Impaired balance;Decreased mobility;Decreased coordination;Decreased cognition;Impaired judgement;Decreased safety awareness -KG Barriers to Discharge Current Mobility Status -KG Plan Plan of care initiated -KG PT Recommendation/Plan Long-Term Facility -KG Patient at high risk for Falls;Readmission;Injury due to decreased ability to care for self;Injury due to reduced functional status;Injury due to impaired cognition;Injury due to balance deficits;Injury at home as patient has not returned to prior level of function;Developing impaired skin integrity;Prolonged dependence for self care tasks -KG Recommend SNF due to Risk of injury at home;Unable to safely care for self in the home;Skilled therapy needed to address care for self in the home;Skilled therapy needed to address functional deficits;Skilled therapy needed for patient to return to prior level of independence -KG PT Frequency during current admission Daily -KG Treatment/Interventions during current admission Balance Training;Functional activity;Functional transfer training;Gait training;Range of motion;Stair training;Strengthening;Therapeutic activity;Therapeutic exercise;Transfer training -KG PT Equipment Recommended Walker -KG PT Evaluation Complete Yes -KG User Connelly (r) = Recorded By, (t) = Taken By, (c) = Cosigned By Initials Name Effective Dates KG Sruthi Malik, PT 12/21/20 - PT TREATMENT (last 168 hours) PT Treatment No documentation. PT Notes 02/09/2023 10:31 AM Progress Notes signed by Sruthi Malik, PT * Plan of Care - Felicia Nino RN - 02/11/2023 3:16 AM CDT Goals: Safety, VSS, decrease pain Summary: Assessment of patient???s baseline is established at the beginning of the shift in flowsheets. Patient reassessed per order, unexpected findings and/or deviations from baseline are captured in flowsheets. Frequent safety checks and comfort rounds provided. Orders and/or nursing care completed as indicated. Patient monitored for response to interventions and treatments as documented in flowsheets. Patient complained of pain to left foot this shift, prn medication given per jun. VSS. Safety maintained, call light in reach, fall precautions. Will continue to monitor. * Plan of Care - Jocelynn Cameron RN - 02/10/2023 5:38 PM CDT Goals: Decrease in pain Summary confused to place and time, reoriented as needed throughout the shift. Bed alarm on. Assisted with turning and repositioning in bed. Lle elevated on pillows. Heels elevated off bed. Medicatedx1 this shift for pain at level 5 per pain scale, good relief noted, denies pain at this time. Tolerating po intake wel. No respiratory distress noted. * Plan of Care - Felicia Nino RN - 02/10/2023 3:52 AM CDT Goals: Safety, fall precautions Summary: Assessment of patient???s baseline is established at the beginning of the shift in flowsheets. Patient reassessed per order, unexpected findings and/or deviations from baseline are captured in flowsheets. Frequent safety checks and comfort rounds provided. Orders and/or nursing care completed as indicated. Patient monitored for response to interventions and treatments as documented in flowsheets. Patient has pain to left foot, prn medication offered. VSS, pleasantly confused. Grandson at bedside. No falls or injuries, call light in reach, fall precautions maintained. Will continue to monitor. * [facility] Note - Radha Argueta MSW - 02/09/2023 1:38 PM CDT Images from the original note were not included. Patient Information: PT Eval and Treat Last 72 Hours PT Evaluation Row Name 02/09/23 7800 Chart Reviewed Yes -KG Session Type Evaluation -KG Safe Environment Arm band checked;Patient found in supine;Gait belt utilized for all out of bed mobility -KG Subjective Agreeable to Therapy -KG Additional Pertinent History Closed nondisplaced fx of L 5th metatarsal, HTN, Syncope -KG Family/Caregiver Present No -KG Precautions Fall risk -KG Type of Home Assisted Living Facility memory care -KG Level of [place] Needs assistance with ADLs;Needs assistance with ambulation;Needs assistance with homemaking -KG Lives With Other (Comment) memory care -KG Fall within the last 6 months Yes -KG Arousal/Alertness Alert -KG Orientation Oriented to person;Oriented to place;Oriented to situation -KG Following Commands Follows one step commands with increased time -KG Bed Mobility Yes -KG Bed Mobility From 1 Supine -KG Bed Mobility Type 1 To and from -KG Bed Mobility to 1 Edge of bed -KG Level of Assistance 1 Standby Assist -KG Transfer Yes -KG Transfer From 1 Sit -KG Transfer Type 1 To and from -KG Transfer to 1 Stand -KG Technique 1 Sit to stand;Stand to sit -KG Transfer Device 1 Wheeled walker -KG Transfer Level of Assistance 1 Contact Guard Assist -KG Ambulation No Pt unable to shift weight onto her L LE and unable to weightbear through her UE onto walker -KG RLE Assessment WFL -KG LLE Assessment X -KG LLE Overall Strength Deficits -KG Prognosis Fair -KG Problem List Gait deviations;Decreased strength;Decreased range of motion;Decreased endurance;Impaired balance;Decreased mobility;Decreased coordination;Decreased cognition;Impaired judgement;Decreased safety awareness -KG Barriers to Discharge Current Mobility Status -KG Plan Plan of care initiated -KG PT Recommendation/Plan Long-Term Facility -KG Patient at high risk for Falls;Readmission;Injury due to decreased ability to care for self;Injury due to reduced functional status;Injury due to impaired cognition;Injury due to balance deficits;Injury at home as patient has not returned to prior level of function;Developing impaired skin integrity;Prolonged dependence for self care tasks -KG Recommend SNF due to Risk of injury at home;Unable to safely care for self in the home;Skilled therapy needed to address care for self in the home;Skilled therapy needed to address functional deficits;Skilled therapy needed for patient to return to prior level of independence -KG PT Frequency during current admission Daily -KG Treatment/Interventions during current admission Balance Training;Functional activity;Functional transfer training;Gait training;Range of motion;Stair training;Strengthening;Therapeutic activity;Therapeutic exercise;Transfer training -KG PT Equipment Recommended Walker -KG PT Evaluation Complete Yes -KG User Connelly (r) = Recorded By, (t) = Taken By, (c) = Cosigned By Initials Name Effective Dates KG Sruthi Malik, PT 12/21/20 - PT TREATMENT (last 168 hours) PT Treatment No documentation. PT Notes 02/09/2023 10:31 AM Progress Notes signed by Sruthi Malik, PT * Assessment & Plan Note - Gabriel Russo MD - 02/09/2023 2:03 AM CDT Associated Problem(s): GERD (gastroesophageal reflux disease) Continue home regimen * Assessment & Plan Note - Gabriel Russo MD - 02/09/2023 2:02 AM CDT Associated Problem(s): Hypertension Continue home regimen * Assessment & Plan Note - Gabriel Russo MD - 02/09/2023 2:02 AM CDT Associated Problem(s): Closed nondisplaced fracture of fifth metatarsal bone of left foot, initial encounter Status post cast placement PTOT evaluation Orthopedic surgery consultation with outpatient evaluation to be coordinated Social service consult for placement Pain management p.r.n. * Plan of Care - Rafiq Narayan RN - 02/09/2023 12:46 AM CDT Problem: Health Behavior: Goal: Understanding of discharge needs will improve Outcome: Ongoing Problem: Lack of Knowledge: Goal: Ability to state ways to decrease the risk of falls will improve Outcome: Ongoing Problem: Safety: Goal: Will remain free from falls Outcome: Ongoing Goal: Will remain free from injury from falls Outcome: Ongoing Goal: Will remain free from falls and injury in home environment Outcome: Ongoing Problem: Activity: Goal: Mobility will improve Outcome: Ongoing Problem: Lack of Knowledge: Goal: Understanding of ways to prevent future skin breakdown will improve Outcome: Ongoing Goal: Ability to identify appropriate dietary choices will improve Outcome: Ongoing Problem: Nutritional: Goal: Dietary intake will improve Outcome: Ongoing Goal: Ability to maintain a balanced intake and output will improve Outcome: Ongoing Problem: Skin Integrity: Goal: Risk for impaired skin integrity will decrease Outcome: Ongoing Goal: Ability to demonstrate warm and dry skin will improve Outcome: Ongoing Goal: Circulation will improve to fullest extent possible Outcome: Ongoing Problem: Activity: Goal: Ability to perform activities at highest level will improve Outcome: Ongoing Goal: Mobility will improve Outcome: Ongoing Problem: Lack of Knowledge: Goal: Ability to verbalize activity precautions or restrictions will improve Outcome: Ongoing Goal: Verbalization of understanding the information provided will improve Outcome: Ongoing Goal: Knowledge of disease or condition will improve Outcome: Ongoing Problem: Coping: Goal: Verbalizations of decreased anxiety will increase Outcome: Ongoing Goal: Ability to identify and utilize appropriate coping strategies will improve Outcome: Ongoing Goal: Ability to maintain and perform role responsibilities to the fullest extent possible will improve Outcome: Ongoing Problem: Health Behavior: Goal: Identification of resources available to assist in meeting health care needs will improve Outcome: Ongoing Problem: Nutritional: Goal: Maintenance of adequate nutrition will improve Outcome: Ongoing Problem: Physical Regulation: Goal: Postoperative complications will be avoided or minimized Outcome: Ongoing Goal: Will remain free from infection Outcome: Ongoing Goal: Diagnostic test results will improve Outcome: Ongoing Problem: Respiratory: Goal: Respiratory status will improve Outcome: Ongoing Problem: Safety: Goal: Ability to remain free from injury will improve Outcome: Ongoing Problem: Sensory: Goal: Pain level will decrease Outcome: Ongoing Problem: Skin Integrity: Goal: Skin integrity will be maintained Outcome: Ongoing Problem: Tissue Perfusion: Goal: Peripheral tissue perfusion will improve Outcome: Ongoing Problem: Lack of Knowledge: Goal: Ability to develop a pain control plan will improve Outcome: Ongoing Goal: Ability to identify pain intensity on a pain scale and rate it consistently will improve Outcome: Ongoing Goal: Ability to notify healthcare provider of pain before it becomes unmanageable or unbearable will improve Outcome: Ongoing Problem: Medication: Goal: Satisfaction with pain management regimen will improve Outcome: Ongoing Problem: Sensory: Goal: Ability to identify factors that increase the pain will improve Outcome: Ongoing Goal: Pain level will decrease Outcome: Ongoing documented in this encounter Plan of Treatment Scheduled Referrals Name Type Priority Associated Diagnoses Orde r Schedule Ambulatory referral to Orthopedic Surgery Outpatient Referral Routine Closed nondisplaced fracture of fifth metatarsal bone of left foot, initial encounter Expected: 02/18/2023 (Approximate), Expires: 02/12/2024 documented as of this encounter Procedures Procedure Name Priority Date/Time Associated Diagnosis Comments COVID-19 CORONAVIRUS RNA Routine 02/11/2023 2:38 PM CDT EGFR STAT 02/08/2023 8:56 PM CDT DIFFERENTIAL AUTO STAT 02/08/2023 8:5 6 PM CDT CBC WITH AUTO DIFFERENTIAL STAT 02/08/2023 8:56 PM CDT CREATINE KINASE (CK), TOTAL STAT 02/08/2023 8:56 PM CDT COMPREHENSIVE METABOLIC PANEL STAT 02/08/2023 8:[address] CERVICAL SPINE WO CONTRAST ED 02/08/2023 6:[address] HEAD WO CONTRAST ED 02/08/2023 6 :42 PM CDT XR FOOT LEFT 3 OR MORE VIEWS ED 02/08/2023 6:35 PM CDT XR ANKLE LEFT 3 OR MORE VIEWS ED 02/08/2023 6:35 PM CDT XR HIP LEFT 2 OR 3 VIEWS ED 02/08/2023 6:35 PM CDT documented in this encounter Results * COVID-19 Coronavirus RNA Nasopharyngeal (02/11/2023 2:38 PM CDT) COVID-19 RNA Negative Negative KALANI HUSAIN Comment:Testing performed by : [facility], [address] [place] [address], [place]., [address] Nasopharyngeal 02/11/2023 2: 38 PM CDT 02/11/2023 2:51 PM CDT Dez HUSAIN - 02/11/2023 3:37 PM CDT Needed for placement Is the patient experiencing any symptoms consistent with COVID (eg. Fever, cough, shortness of breath)?->No What is the reason for testing?->Placement in post-acute care setting (Rapid) ??Interpretive data: Synonyms for this test include: PCR and NAAT . ??This test is performed using the WealthTouch Xpert Xpress plus assay. This is a real-time RT-PCR test intended for the qualitative detection of nucleic acid from the SARS-CoV-2. This assay has been reviewed by the FDA for Emergency Use Authorization (EUA). The performance characteristics have been verified by the performing laboratory. Results must be considered in the clinical context and a negative result does not rule out infection. Interpretive data last revised September 20, 2021. ??Interpretive data: Synonyms for this test include: PCR and NAAT . ??This test is performed using the WealthTouch Xpert Xpress plus assay. This is a real-time RT-PCR test intended for the qualitative detection of nucleic acid from the SARS-CoV-2. This assay has been reviewed by the FDA for Emergency Use Authorization (EUA). The performance characteristics have been verified by the performing laboratory. Results must be considered in the clinical context and a negative result does not rule out infection. Interpretive data last revised September 20, 2021. Tiffani Royal MD LAB MICROBIOLOGY - NERAL ORDERABLES Final Result KALANI [address] [facility] Department [place] [address] * eGFR (02/08/2023 8:56 PM CDT) [facility] eGFR 55 mL/min/1. 73 m2 Comment: Interpretive Data Reference Interval Normal ?>/= 90 mL/min/1.73m2 Mildly decreased* ? 60 - 89 mL/min/1.73m2 Mildly to moderately decreased ?45 - 59 mL/min/1.73m2 Moderately to severely decreased ??30 - 44 mL/min/1.73m2 Severely decreased ?15 - 29 mL/min/1.73m2 Kidney Failure ?< 15 ??mL/min/1.73m2 *Relative to young adult level Estimated glomerular filtration rate is determined by the 2020 CKD-EPI equation recommended by the National Kidney [employer] (A Unifying Approach to GFR Estimation: Recommendations of the NKF-ASK Task Force on Reassessing the Inclusion of Race in Diagnosing Kidney Disease, JASN 202). The CKD-EPI equation should not be used for patients with unstable renal function and has not been validated in children and those over 70. Current interpretive data was last reviewed 2021. Testing performed by: [address] [address] Blood 02/08/2023 8:56 PM CDT 02/08/2023 8:58 PM CDT us Gabriel Russo MD LAB BLOOD ORDERABLES Final Re sult KALANI [address] [facility] Department [place] [address] * Differential, auto (02/08/2023 8:56 PM CDT) Neutrophil abs 5.8 1.7 - 6.5 K/cumm Comment:Testing performed by : [address] [address] Imm gran abs 0.0 0.0 - 0.1 K/cumm KALANI Comment:Testing performed by : [address] [address] Lymphocyte abs 2.1 0.8 - 3.3 K/cumm KALANI Comment:Testing performed by : [address] [address] Monocyte abs 0.6 0.2 - 0.8 K/cumm KALANI Comment:Testing performed by : [address] [address] Eosinophil abs 0.2 0.0 - 0.5 K/cumm KALANI Comment:Testing performed by : [address] [address] Basophil abs 0.0 0.0 - 0.1 K/cumm KALANI Comment:Testing performed by : [address] [address] Neutrophil pct 66.5 % [facility] Comment: Interpretive Data Percent cell count reference ranges are not reported, since discordance with absolute values may lead to misinterpretation of CBC data. Current Interpretive Data was last revised on 2017. Testing performed by: [address] [address] Imm gran pct 0.5 % [facility] Comment: Interpretive Data Percent cell count reference ranges are not reported, since discordance with absolute values may lead to misinterpretation of CBC data. Current Interpretive Data was last revised on 2017. Testing performed by: [address] [address] Lymphocyte pct 23.7 % [facility] Comment: Interpretive Data Percent cell count reference ranges are not reported, since discordance with absolute values may lead to misinterpretation of CBC data. Current Interpretive Data was last revised on 2017. Testing performed by: [address] [address] Monocyte pct 6.4 % [facility] Comment: Interpretive Data Percent cell count reference ranges are not reported, since discordance with absolute values may lead to misinterpretation of CBC data. Current Interpretive Data was last revised on 2017. Testing performed by: [address] [address] Eosinophil pct 2.4 % KALANI Comment: Interpretive Data Percent cell count reference ranges are not reported, since discordance with absolute values may lead to misinterpretation of CBC data. Current Interpretive Data was last revised on 2017. Testing performed by: [address] [address] Basophil pct 0.5 % KALANI HUSAIN Comment: Interpretive Data Percent cell count reference ranges are not reported, since discordance with absolute values may lead to misinterpretation of CBC data. Current Interpretive Data was last revised on 2017. Testing performed by: [address] [address] Blood 02/08/2023 8:56 PM CDT 02/08/2023 8:58 PM CDT Gabriel Russo MD LAB BLOOD ORDERABLES Final Re sult Performing Organization Address [facility] Co de Phone Number [address] [place] [address] * Creatine kinase (CK), total (02/08/2023 8:56 PM CDT) Pathologist [facility] CK 51 30 - 200 Units/L Comment:Testing performed by : [address] [address] Blood 02/08/2023 8:56 PM CDT 02/08/2023 8:58 PM CDT Gabriel Russo MD LAB BLOOD ORDERABLES Final Re sult Performing Organization Address [facility] Co de Phone Number [id number] [address] * (ABNORMAL) Comprehensive metabolic panel (02/08/2023 8:56 PM CDT) Pathologist [facility] Sodium 138 135 - 145 mmol/L Comment:Testing performed by : [address] [address] Potassium, pl 4.0 3.3 - 4.9 mmol/L KALANI HUSAIN Comment:Testing performed by : [address] [address] Chloride 103 97 - 110 mmol/L KALANI HUSAIN Comment:Testing performed by : [address] [address] CO2 28 22 - 32 mmol/L KALANI HUSAIN Comment:Testing performed by : [address] [address] Anion gap 7 2 - 15 mmol/L KALANI Comment:Testing performed by : [address] [address] BUN 23 6 - 25 mg/dL KALANI Comment:Testing performed by : [address] [address] Creatinine 1.00 0.60 - 1.10 mg/dL KALANI Comment:Testing performed by : [address] [address] Glucose 96 70 - 199 mg/dL KALANI Comment: Interpretive Data Fasting glucose >/= 126 mg/dl is diagnostic for diabetes. ?? Fasting is defined as no caloric intake for at least 8 hours. Fasting glucose between 100 mg/dl to 125 mg/dl is diagnostic of prediabetes. In a patient with classic symptoms of hyperglycemia or hyperglycemic crisis, a random glucose >/= 200 mg/dl is diagnostic for diabetes. In the absence of unequivocal hyperglycemia, results should be confirmed by repeat testing. The classification and Diagnosis of Diabetes Diabetes Care 202; 46: S19-S40. Current interpretive data was last revised 2022. Testing performed by: [address] [address] Calcium 9.0 8.5 - 10.3 mg/dL KALANI Comment:Testing performed by : [address] [address] Bilirubin, total 0.3 0.1 - 1.2 mg/dL KALANI Comment:Testing performed by : [address] [address] Protein, pl 6.3(L) 6.5 - 8.5 g/dL KALANI Comment:Testing performed by : [address] [address] Albumin 3.5 3.5 - 5.0 g/dL KALANI Comment:Testing performed by : [address] [address] Alk phos 84 40 - 130 Units/L KALANI Comment:Testing performed by : [address] [place]., [address] ALT 6(L) 7 - 45 Units/L KALANI HUSAIN Comment:Testing performed by : [address] [address] AST 11 10 - 45 Units/L KALANI HUSAIN Comment:Testing performed by : [address] [address] Blood 02/08/2023 8:56 PM CDT 02/08/2023 8:58 PM CDT us Gabriel Russo MD LAB BLOOD ORDERABLES Final Re sult KALANI [address] [facility] Department [place] [address] * (ABNORMAL) CBC with auto differential (02/08/2023 8:56 PM CDT) [facility] WBC 8.8 3.8 - 9.9 K/cumm Comment:Testing performed by : [address] [address] Hgb 13.0 11.9 - 15.5 g/dL KALANI HUSAIN Comment: Interpretive Data A reference range for this assay has not been established for patients with an unknown legal sex. Please refer to the laboratory test catalog for established sex-specific reference intervals. Current interpretive data was last revised on 2023. Testing performed by: [address] [address] Hct 40.0 35.6 - 45.5 % KALANI HUSAIN Comment: Interpretive Data A reference range for this assay has not been established for patients with an unknown legal sex. Please refer to the laboratory test catalog for established sex-specific reference intervals. Current interpretive data was last revised on 2023. Testing performed by: [address] [address] Plt 204 150 - 400 K/cumm KALANI HUSAIN Comment:Testing performed by : [address] [address] MPV 10.0 9.1 - 12.3 fL KALANI HUSAIN Comment:Testing performed by : [address] [address] RBC 4.10 3.90 - 5.20 M/cumm KALANI HUSAIN Comment: Interpretive Data A reference range for this assay has not been established for patients with an unknown legal sex. Please refer to the laboratory test catalog for established sex-specific reference intervals. Current interpretive data was last revised on 2023. Testing performed by: [address] [address] MCV 97.6(H) 81.3 - 96.4 fL KALANI HUSAIN Comment:Testing performed by : [address] [address] MCH 31.7 27.1 - 33.3 pg KALANI HUSAIN Comment:Testing performed by : [address] [address] MCHC 32.5 32.3 - 35.7 g/dL KALANI Comment:Testing performed by : [address] [address] RDW CV 13.1 11.1 - 14.9 % KALANI Comment:Testing performed by : [address] [address] RDW SD 47.1 35.7 - 48.1 fL KALANI Comment:Testing performed by : [address] [address] NRBC abs 0.00 0.00 - 0.01 K/cumm KALANI Comment:Testing performed by : [address] [address] Blood 02/08/2023 8:56 PM CDT 02/08/2023 8:58 PM CDT us Gabriel Russo MD LAB BLOOD ORDERABLES Final Re sult KALANI [address] [facility] Department [place] [address] * CT Cervical Spine WO Contrast (02/08/2023 6:42 PM CDT) Anatomical Region Laterality Modality Spine N/A Computed Tomogra phy 02/08/2023 7:00 PM CDT Narrative 02/08/2023 7:06 PM CDT EXAM DESCRIPTION: ?? CT CERVICAL SPINE WO CONTRAST REASON FOR STUDY: ?? Neck trauma (Age >= 65y) ?? Pt arrived via EMS from [facility]. Pt states she stood up from her couch, twisted her left ankle and fell backward onto her back striking her head on the floor. No LOC. Pt c/o left ankle pain, back pain and neck pain. C collar in ?? place on arrival. ? TECHNIQUE: Axial images through the cervical spine with sagittal and coronal reformatted images. Automated exposure control was used as a dose optimization technique for this examination. COMPARISON: ?? None FINDINGS: ALIGNMENT: ?? Slight anterolisthesis of C 3 on C4 appears to result from facet arthropathy. ??Other levels are better aligned. VERTEBRAE: ?? No fracture. Vertebral body heights well-maintained. DISCS: ?? Disc heights well-maintained. HARDWARE: ?? None in the spine. INDIVIDUAL LEVELS: C1-C2: ?? No significant osseous spinal stenosis. C2-C3: ?? Partial neural foraminal narrowing is noted. ??The canal appears to be patent. C3-C4: ?? The canal appears to be patent. ??The neural foraminal openings are markedly crowded by spurring. C4-C5: ?? Marginal spurring is noted with neural foraminal narrowing bilaterally. C5-C6: ?? The canal is mildly narrowed. ??The neural foraminal openings are mildly narrowed by disc material. C6-C7: ?? Partial neural foraminal crowding is noted to a significant degree. ?? The canal is partially narrowed. C7-T1: ?? No significant osseous spinal stenosis or neural foraminal stenosis. UPPER THORACIC: ?? Incompletely imaged. No significant osseous spinal stenosis or osseous neural foraminal stenosis. SKULL BASE: ?? No significant finding. LUNG APICES: ?? No significant abnormality. NECK SOFT TISSUES: ?? No significant abnormality. OTHER: ?? No other significant findings. IMPRESSION: ?? 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 ??Some marginal spurring crowds the neural foraminal openings particularly at C3-C4 and C4-C5. ??No traumatic injury is seen THIS IS AN ELECTRONICALLY VERIFIED FINAL REPORT 02/08/2023 7:06 PM - Electronically signed by ??Jeramie Newberry M.D. KH: GUERO D: ??02/08/2023 7:06 PM T: ??02/08/2023 7:06 PM Report ID: [id number] Reading Location: ??[id number] Procedure Note Jeramie Newberry MD - 02/08/2023 EXAM DESCRIPTION: CT CERVICAL SPINE WO CONTRAST REASON FOR STUDY: Neck trauma (Age >= 65y) Pt arrived via EMS from [facility]. Pt states she stoodup from her couch, twisted her left ankle and fell backward onto her back striking her head on the floor. No LOC. Pt c/o left ankle pain, back painand neck pain. C collar in place on arrival. TECHNIQUE: Axial images through the cervical spine with sagittal andcoronal reformatted images. Automated exposure control was used as a doseoptimization technique for this examination. COMPARISON: None FINDINGS: ALIGNMENT: Slight anterolisthesis of C 3 on C4 appears to result fromfacet arthropathy. Other levels are better aligned. VERTEBRAE: No fracture. Vertebral body heights well-maintained. DISCS: Disc heights well-maintained. HARDWARE: None in the spine. INDIVIDUAL LEVELS: C1-C2: No significant osseous spinal stenosis. C2-C3: Partial neural foraminal narrowing is noted. The canal appearsto be patent. C3-C4: The canal appears to be patent. The neural foraminal openingsare markedly crowded by spurring. C4-C5: Marginal spurring is noted with neural foraminal narrowing bilaterally. C5-C6: The canal is mildly narrowed. The neural foraminal openings are mildly narrowed by disc material. C6-C7: Partial neural foraminal crowding is noted to a significantdegree. The canal is partially narrowed. C7-T1: No significant osseous spinal stenosis or neural foraminalstenosis. UPPER THORACIC: Incompletely imaged. No significant osseous spinalstenosis or osseous neural foraminal stenosis. SKULL BASE: No significant finding. LUNG APICES: No significant abnormality. NECK SOFT TISSUES: No significant abnormality. OTHER: No other significant findings. IMPRESSION: Significant degenerative and disc pathology is seenparticularly affecting the facet joints. Some marginal spurring crowds the neural foraminal openings particularly at C3-C4 and C4-C5. No traumatic injuryis seen THIS IS AN ELECTRONICALLY VERIFIED FINAL REPORT 02/08/2023 7:06 PM - Electronically signed by Jeramie Newberry M.D. KH: GUERO Report ID: [id number] Reading Location: [id number] Amber EATON IMG CT PROCEDURES Final Resul t * CT Head WO Contrast (02/08/2023 6:42 PM CDT) Anatomical Region Laterality Modality Head and Neck N/A Computed Tomogra phy 02/08/2023 6:58 PM CDT Narrative 02/08/2023 7:00 PM CDT EXAM DESCRIPTION: CT HEAD WO CONTRAST REASON FOR STUDY: Head trauma, minor (Age => 66y) ?? Pt arrived via EMS from [facility]. Pt states she stood up from her couch, twisted her left ankle and fell backward onto her back striking her head on the floor. No LOC. Pt c/o left ankle pain, back pain and neck pain. C collar in ?? place on arrival. ? TECHNIQUE: Axial images acquired through the brain without intravenous contrast. ??Images stored on PACS. ?? Automated exposure control was used as a dose optimization technique for this examination. COMPARISON: 10/18/2022 FINDINGS: BRAIN: ?? No hemorrhage, edema or mass effect. No recent infarct. ? Patchy hypodensity of the cerebral white matter suggests chronic small-vessel ischemic changes. Diffuse atrophy of the brain is noted. ? EXTRA-AXIAL SPACES: ?? No fluid collections. No masses. CALVARIUM: ?? No fracture. SINUSES/MASTOIDS: ?? No fluid or mucosal thickening. ORBITS: ?? No significant abnormality. OTHER: ?? No other significant abnormality. IMPRESSION: No acute intracranial findings. THIS IS AN ELECTRONICALLY VERIFIED FINAL REPORT 02/08/2023 7:00 PM - Electronically signed by ??Jeramie JACK: GUERO D: ??02/08/2023 7:00 PM T: ??02/08/2023 7:00 PM Report ID: [id number] Reading Location: ??[id number] Procedure Note Jeramie Newberry MD - 02/08/2023 EXAM DESCRIPTION: CT HEAD WO CONTRAST REASON FOR STUDY: Head trauma, minor (Age => 66y) Pt arrived via EMS from [facility]. Pt states she stoodup from her couch, twisted her left ankle and fell backward onto her back striking her head on the floor. No LOC. Pt c/o left ankle pain, back painand neck pain. C collar in place on arrival. TECHNIQUE: Axial images acquired through the brain without intravenous contrast. Images stored on PACS. Automated exposure control was used asa dose optimization technique for this examination. COMPARISON: 10/18/2022 FINDINGS: BRAIN: No hemorrhage, edema or mass effect. No recent infarct. Patchy hypodensity of the cerebral white matter suggests chronicsmall-vessel ischemic changes. Diffuse atrophy of the brain is noted. EXTRA-AXIAL SPACES: No fluid collections. No masses. CALVARIUM: No fracture. SINUSES/MASTOIDS: No fluid or mucosal thickening. ORBITS: No significant abnormality. OTHER: No other significant abnormality. IMPRESSION: No acute intracranial findings. THIS IS AN ELECTRONICALLY VERIFIED FINAL REPORT 02/08/2023 7:00 PM - Electronically signed by Jeramie JACK: GUERO Report ID: [id number] Reading Location: [id number] [address] CT PROCEDURES Final Resul t * XR Foot Left 3 or More Views (02/08/2023 6:35 PM CDT) Anatomical Region Laterality Modality Lower Extremities, Foot Left Computed Radiography 02/08/2023 6:56 PM CDT Narrative 02/08/2023 6:58 PM CDT EXAM DESCRIPTION: XR FOOT LEFT 3 OR MORE VIEWS REASON FOR STUDY: pain ?? EMS from [facility]. Pt states she stood up from her couch, twisted her left ankle and fell backward onto her back striking her head on the floor. No LOC. Pt c/o left ankle pain, back pain and neck pain. C collar in place on arrival. ?? Pt placed on monitor. V\SS. Pt has no c/o dizziness, cp or illness ? TECHNIQUE: 3 ??radiographic view(s) of the ??left foot . COMPARISON: None FINDINGS: Transverse fracture is seen of the proximal base of the 5th metacarpal without significant displacement of fragments. ??The bones are osteopenic. ??No other fracture is identified. IMPRESSION: 5th metatarsal fracture THIS IS AN ELECTRONICALLY VERIFIED FINAL REPORT 02/08/2023 6:58 PM - Electronically signed by ??Jeramie Newberry M.D. KH: GUERO D: ??02/08/2023 6:58 PM T: ??02/08/2023 6:58 PM Report ID: [id number] Reading Location: ??[id number] Procedure Note Jeramie Newberry MD - 02/08/2023 EXAM DESCRIPTION: XR FOOT LEFT 3 OR MORE VIEWS REASON FOR STUDY: pain EMS from [facility]. Pt states she stood up from hercouch, twisted her left ankle and fell backward onto her back striking her headon the floor. No LOC. Pt c/o left ankle pain, back pain and neck pain. Ccollar in place on arrival. Pt placed on monitor. V\SS. Pt has no c/odizziness, cp or illness TECHNIQUE: 3 radiographic view(s) of the left foot . COMPARISON: None FINDINGS: Transverse fracture is seen of the proximal base of the 5th metacarpal without significant displacement of fragments. The bones are osteopenic. No other fracture is identified. IMPRESSION: 5th metatarsal fracture THIS IS AN ELECTRONICALLY VERIFIED FINAL REPORT 02/08/2023 6:58 PM - Electronically signed by Jeramie Newberry M.D. KH: GUERO Report ID: [id number] Reading Location: [id number] [facility] XR PROCEDURES Final Resul t * XR Ankle Left 3 or More Views (02/08/2023 6:35 PM CDT) Anatomical Region Laterality Modality Lower Extremities, Ankle Left Compute d Radiography 02/08/2023 6:53 PM CDT Narrative 02/08/2023 6:56 PM CDT EXAM DESCRIPTION: XR ANKLE LEFT 3 OR MORE VIEWS REASON FOR STUDY: pain ?? EMS from [facility]. Pt states she stood up from her couch, twisted her left ankle and fell backward onto her back striking her head on the floor. No LOC. Pt c/o left ankle pain, back pain and neck pain. C collar in place on arrival. ?? Pt placed on monitor. V\SS. Pt has no c/o dizziness, cp or illness ? TECHNIQUE: 3 ??radiographic view(s) of the ??left ankle . COMPARISON: None FINDINGS: Prominent soft tissue swelling is seen at the lateral aspect of the ankle. ??The bones are osteopenic. ??Noted fracture of the proximal aspect of the 5th metacarpal is better seen on the concurrent foot images. ??No definite fracture is seen of the ankle structures. IMPRESSION: The bones are osteopenic. ??No definite fracture is seen of the ankle. THIS IS AN ELECTRONICALLY VERIFIED FINAL REPORT 02/08/2023 6:56 PM - Electronically signed by ??Jeramie Newberry M.D. KH: GUERO D: ??02/08/2023 6:56 PM T: ??02/08/2023 6:56 PM Report ID: [id number] Reading Location: ??[id number] Procedure Note Jeramie Newberry MD - 02/08/2023 EXAM DESCRIPTION: XR ANKLE LEFT 3 OR MORE VIEWS REASON FOR STUDY: pain EMS from [facility]. Pt states she stood up from hercouch, twisted her left ankle and fell backward onto her back striking her headon the floor. No LOC. Pt c/o left ankle pain, back pain and neck pain. Ccollar in place on arrival. Pt placed on monitor. V\SS. Pt has no c/odizziness, cp or illness TECHNIQUE: 3 radiographic view(s) of the left ankle . COMPARISON: None FINDINGS: Prominent soft tissue swelling is seen at the lateral aspect ofthe ankle. The bones are osteopenic. Noted fracture of the proximal aspectof the 5th metacarpal is better seen on the concurrent foot images. Nodefinite fracture is seen of the ankle structures. IMPRESSION: The bones are osteopenic. No definite fracture is seen of the ankle. THIS IS AN ELECTRONICALLY VERIFIED FINAL REPORT 02/08/2023 6:56 PM - Electronically signed by Jeramie JACK: GUERO Report ID: [id number] Reading Location: [id number] XR PROCEDURES Final Resul t * XR Hip Left 2 or 3 Views (02/08/2023 6:35 PM CDT) Anatomical Region Laterality Modality Lower Extremities, Hip, Pelvis Left C omputed Radiography 02/08/2023 6:52 PM CDT Narrative 02/08/2023 6:53 PM CDT EXAM DESCRIPTION: XR HIP LEFT 2 OR 3 VIEWS REASON FOR STUDY: pain ?? EMS from [facility]. Pt states she stood up from her couch, twisted her left ankle and fell backward onto her back striking her head on the floor. No LOC. Pt c/o left ankle pain, back pain and neck pain. C collar in place on arrival. ?? Pt placed on monitor. V\SS. Pt has no c/o dizziness, cp or illness ? TECHNIQUE: 2 ??radiographic view(s) of the ??left hip . COMPARISON: None FINDINGS: BONES/JOINTS: There is no acute fracture, malalignment or osseous abnormality. Minor degenerative changes are noted. ??The bones are somewhat osteopenic. SOFT TISSUES: Within normal limits. ?? IMPRESSION: No acute osseous abnormality. THIS IS AN ELECTRONICALLY VERIFIED FINAL REPORT 02/08/2023 6:53 PM - Electronically signed by ??Jeramie Newberry M.D. KH: GUERO D: ??02/08/2023 6:53 PM T: ??02/08/2023 6:53 PM Report ID: [id number] Reading Location: ??[id number] Procedure Note Jeramie Newberry MD - 02/08/2023 EXAM DESCRIPTION: XR HIP LEFT 2 OR 3 VIEWS REASON FOR STUDY: pain EMS from [facility]. Pt states she stood up from [facility], twisted her left ankle and fell backward onto her back striking her headon the floor. No LOC. Pt c/o left ankle pain, back pain and neck pain. Ccollar in place on arrival. Pt placed on monitor. V\SS. Pt has no c/odizziness, cp or illness TECHNIQUE: 2 radiographic view(s) of the left hip . COMPARISON: None FINDINGS: BONES/JOINTS: There is no acute fracture, malalignment orosseous abnormality. Minor degenerative changes are noted. The bones are somewhat osteopenic. SOFT TISSUES: Within normal limits. IMPRESSION: No acute osseous abnormality. THIS IS AN ELECTRONICALLY VERIFIED FINAL REPORT 02/08/2023 6:53 PM - Electronically signed by Jeramie JACK: GUERO Report ID: [id number] Reading Location: [id number] [facility] XR PROCEDURES Final Resul t documented in this encounter Visit Diagnoses Diagnosis Closed nondisplaced fracture of fifth metatarsal bone of left foot, initial encounter- Primary Closed nondisplaced fracture of fifth metatarsal bone of left foot, initial encounter Fall, initial encounter Hypertension Unspecified essential hypertension GERD (gastroesophageal reflux disease) Esophageal reflux documented in this encounter Admitting Diagnoses Diagnosis Closed nondisplaced fracture of fifth metatarsal bone of left foot, initial encounter documented in this encounter Administered Medications Inactive Administered Medications - up to 3 most recent administrations Medication Order MAR Action Action Date Dose Rate Site acetaminophen (TYLENOL) tablet 650 mg 650 mg, oral, Every 4 hours PRN, 1st line for pain, fever, fever greater than 38.3 C, Starting on 02/09/23 at 0746, Indications: Fever, PainIndications:Fever,Pain Given 02/10/2023 8:50 AM CDT 650 mg amLODIPine (NORVASC) tablet 10 mg 10 mg, oral, Daily, First dose on Sat02/08/23 at 2048 Given 02/11/2023 7:53 AM CDT 10 mg Given 02/10/2023 8:51 AM CDT 10 mg Given 02/09/2023 7:47 AM CDT 10 mg baclofen (LIORESAL) tablet 5 mg 5 mg, oral, Every 8 hours PRN, muscle spasms, Starting on Sat02/08/23 at 2044 Carrier Fluids for Secondary Infusion - 0.9% Sodium Chloride 30 mL, intravenous, As needed, For priming tubing and/or flushing, Starting on 02/09/23 at 0745, 0-250 ml/hr to flush line after IV infusions when no maintenance IV ordered. Infuse 30mL at the same rate as the secondary infusion. Run as primary IV, not intended for KVO. enoxaparin (LOVENOX) syringe 40 mg 40 mg, subcutaneous, Daily (for enoxaparin), First dose on 02/09/23 at 2100, Indications: VTE ProphylaxisIndications:VTE Prophylaxis Given 02/10/2023 8:23 PM CDT 40 mg Left Lower Abdomen Given 02/09/2023 9:03 PM CDT 40 mg Le ft Lower Abdomen FLUoxetine (PROzac) tab/cap 20 mg 20 mg, oral, Daily, First dose on Sat02/08/23 at 2048 Given 02/11/2023 7:53 AM CDT 20 mg Given 02/10/2023 8:50 AM CDT 20 mg Given 02/09/2023 7:47 AM CDT 20 mg hyoscyamine ER (LEVBID) extended release tablet 375 mcg 375 mcg, oral, Daily, First dose (after last modification) on Sat02/08/23 at 2215, Do not crush, break, or open., Indications: diarrheaIndications:diarrhea Given 02/11/2023 7:53 AM CDT 375 mcg Given 02/10/2023 8:49 AM CDT 375 mcg Given 02/09/2023 7:47 AM CDT 375 mcg loperamide (IMODIUM) capsule 2 mg 2 mg, oral, Every other day, First dose on Sat02/08/23 at 2048, Maximum recommended dose 16 mg/day Given 02/10/2023 8:50 AM CDT 2 mg Given 02/08/2023 11:12 PM CDT 2 mg losartan (COZAAR) tablet 50 mg 50 mg, oral, Daily, First dose on Sat02/08/23 at 2048 Given 02/11/2023 7:53 AM CDT 50 mg Given 02/10/2023 8:50 AM CDT 50 mg Given 02/09/2023 7:47 AM CDT 50 mg metoclopramide (REGLAN) 5 mg/mL injection 10 mg 10 mg, intravenous, Administer over 1 Minutes, Every 6 hours PRN, other, Nausea/vomiting, Starting on Sat02/08/23 at 204 ondansetron (ZOFRAN) injection 4 mg 4 mg, intravenous, Administer over 2 Minutes, Every 6 hours PRN, nausea, vomiting, if not tolerating PO, Starting on 02/09/23 at 0745, Indications: Nausea and VomitingIndications:Nausea and Vomiting ondansetron ODT (ZOFRAN-ODT) disintegrating tablet 4 mg 4 mg, oral, Every 6 hours PRN, nausea, vomiting, Starting on 02/09/23 at 0745, Indications: Nausea and VomitingIndications:Nausea and Vomiting pantoprazole DR (PROTONIX) extended release tablet 40 mg 40 mg, oral, Daily, First dose on Sat02/08/23 at 2048, Do not crush, chew, cut, dissolve, open or otherwise manipulate tablet/capsule., Indications: Treatment of Non-Bleeding Gastric DisorderIndications:Treatment of Non-Bleeding Gastric Disorder Given 02/11/2023 7:53 AM CDT 40 mg Given 02/10/2023 8:50 AM CDT 40 mg Given 02/09/2023 7:47 AM CDT 40 mg polyethylene glycol (MIRALAX) packet 17 g 17 g, oral, Daily PRN, constipation, Starting on 02/09/23 at 0745, Indications: constipationIndications:constipation raloxifene (EVISTA) tablet 60 mg 60 mg, oral, Daily, First dose (after last modification) on Sat02/08/23 at 2215, Do not crush, break, or open. Given 02/11/2023 7:53 AM CDT 60 mg Given 02/10/2023 8:51 AM CDT 60 mg Given 02/09/2023 7:47 AM CDT 60 mg sodium chloride 0.9% flush 0.5-20 mL 0.5-20 mL, intra-catheter, Every 8 hours scheduled, First dose on 02/09/23 at 0830, Flush volume based on line type and size. sodium chloride 0.9% flush 0.5-20 mL 0.5-20 mL, intra-catheter, As needed, line care, Starting on 02/09/23 at 0745, Flush volume based on line type and size. Flush before and after each use. traMADoL (ULTRAM) tablet 50 mg 50 mg, oral, Every 8 hours PRN, 1st line for pain, Starting on Sat02/08/23 at 2228 Given 02/10/2023 8:22 PM CDT 50 mg Given 02/09/2023 5:12 AM CDT 50 mg documented in this encounter Discontinued Medications Medication Sig Discontinue Reason Start Date End Da te traMADoL (ULTRAM) 50 mg tablet Take 1 tablet (50 mg total) by mouth every 8 (eight) hours as needed for pain Reorder 02/11/2023 02/11/2023 documented as of this encounter Active and Recently Administered Medications Times are shown in CDT. Scheduled Medication Order 02/09/2023 02/10/2023 02/11/2023 amLODIPine (NORVASC) tablet 10 mg 10 mg, oral, Daily, First dose on Sat02/08/23 at 2048 0747 (Given - Provider: Tosin Willoughby RN) 0851 (Given - Provider: Jocelynn Cameron RN) 0753 (Given - Provider: Marge Zimmer, ZACH) enoxaparin (LOVENOX) syringe 40 mg 40 mg, subcutaneous, Daily (for enoxaparin), First dose on 02/09/23 at 2100, Indications: VTE Prophylaxis 2102 (Given - Provider: Felicia Nino, ZACH) 2022 (Given - Provider: Felicia Nino, ZACH) FLUoxetine (PROzac) tab/cap 20 mg 20 mg, oral, Daily, First dose on Sat02/08/23 at 2048 0747 (Given - Provider: Tosin Willoughby RN) 0850 (Given - Provider: Jocelynn Cameron, RN) 0753 (Given - Provider: Marge Zimmer, ZACH) hyoscyamine ER (LEVBID) extended release tablet 375 mcg 375 mcg, oral, Daily, First dose (after last modification) on Sat02/08/23 at 2215, Do not crush, break, or open., Indications: diarrhea 0747 (Given - Provider: Tosin Willoughby RN) 0849 (Given - Provider: Jocelynn Cameron RN) 0753 (Given - Provider: Marge Zimmer, ZACH) loperamide (IMODIUM) capsule 2 mg 2 mg, oral, Every other day, First dose on Sat02/08/23 at 2047, Maximum recommended dose 16 mg/day 0850 (Given - Provider: Jocelynn Cameron RN) losartan (COZAAR) tablet 50 mg 50 mg, oral, Daily, First dose on Sat02/08/23 at 2047 0747 (Given - Provider: Tosin Willoughby RN) 0850 (Given - Provider: Jocelynn Cameron RN) 0753 (Given - Provider: Marge Zimmer, ZACH) pantoprazole DR (PROTONIX) extended release tablet 40 mg 40 mg, oral, Daily, First dose on Sat02/08/23 at 2047, Do not crush, chew, cut, dissolve, open or otherwise manipulate tablet/capsule., Indications: Treatment of Non-Bleeding Gastric Disorder 0747 (Given - Provider: Tosin Willoughby RN) 0850 (Given - Provider: Jocelynn Cameron RN) 0753 (Given - Provider: Marge Zimmer, ZACH) raloxifene (EVISTA) tablet 60 mg 60 mg, oral, Daily, First dose (after last modification) on Sat02/08/23 at 2215, Do not crush, break, or open. 0747 (Given - Provider: Tosin Willoughby RN) 0851 (Given - Provider: Jocelynn Cameron RN) 0753 (Given - Provider: Marge Zimmer, ZACH) sodium chloride 0.9% flush 0.5-20 mL 0.5-20 mL, intra-catheter, Every 8 hours scheduled, First dose on 02/09/23 at 0830, Flush volume based on line type and size. 0748 (Not Given - Provider: Tosin Willoughby RN - Reason: Loss of IV access)1307 (Not Given - Provider: Tosin Willoughby RN - Reason: Loss of IV access)2104 (Not Given - Provider: Felicia Nino RN - Reason: Other - Comment: no iv access) 0508 (Not Given - Provider: Felicia Nino RN - Reason: Other - Comment: no iv access)1400 (Due)2022 (Not Given - Provider: Felicia Nino RN - Reason: Other - Comment: no IV access) 0600 (Not Given - Provider: Marge Zimmer RN - Reason: Other - Comment: previous shift)1500 (Not Given - Provider: Marge Zimmer RN - Reason: Loss of IV access) PRN Medication Order 02/09/2023 02/10/2023 02/11/2023 acetaminophen (TYLENOL) tablet 650 mg 650 mg, oral, Every 4 hours PRN, 1st line for pain, fever, fever greater than 38.3 C, Starting on 02/09/23 at 0746, Indications: Fever, Pain 0850 (Given - Provider: Jocelynn Cameron RN - Comment: lle) baclofen (LIORESAL) tablet 5 mg 5 mg, oral, Every 8 hours PRN, muscle spasms, Starting on Sat02/08/23 at 2044 Carrier Fluids for Secondary Infusion - 0.9% Sodium Chloride 30 mL, intravenous, As needed, For priming tubing and/or flushing, Starting on 02/09/23 at 0745, 0-250 ml/hr to flush line after IV infusions when no maintenance IV ordered. Infuse 30mL at the same rate as the secondary infusion. Run as primary IV, not intended for KVO. metoclopramide (REGLAN) 5 mg/mL injection 10 mg 10 mg, intravenous, Administer over 1 Minutes, Every 6 hours PRN, other, Nausea/vomiting, Starting on Sat02/08/23 at 2043 ondansetron (ZOFRAN) injection 4 mg(Linked Group 1) 4 mg, intravenous, Administer over 2 Minutes, Every 6 hours PRN, nausea, vomiting, if not tolerating PO, Starting on 02/09/23 at 0745, Indications: Nausea and Vomiting ondansetron ODT (ZOFRAN-ODT) disintegrating tablet 4 mg(Linked Group 1) 4 mg, oral, Every 6 hours PRN, nausea, vomiting, Starting on 02/09/23 at 0745, Indications: Nausea and Vomiting polyethylene glycol (MIRALAX) packet 17 g 17 g, oral, Daily PRN, constipation, Starting on 02/09/23 at 0745, Indications: constipation sodium chloride 0.9% flush 0.5-20 mL 0.5-20 mL, intra-catheter, As needed, line care, Starting on 02/09/23 at 0745, Flush volume based on line type and size. Flush before and after each use. traMADoL (ULTRAM) tablet 50 mg 50 mg, oral, Every 8 hours PRN, 1st line for pain, Starting on Sat02/08/23 at 2228 0512 (Given - Provider: Rafiq Narayan RN) 2021 (Given - Provider: Felicia Nino RN) Linked Groups Order Group 1: ondansetron ODT (ZOFRAN-ODT) disintegrating tablet 4 mgJump to med 4 mg, oral, Every 6 hours PRN, nausea, vomiting, Starting on 02/09/23 at 0745, Indications: Nausea and Vomiting Or ondansetron (ZOFRAN) injection 4 mgJump to med 4 mg, intravenous, Administer over 2 Minutes, Every 6 hours PRN, nausea, vomiting, if not tolerating PO, Starting on 02/09/23 at 0745, Indications: Nausea and Vomiting documented in this encounter Orders Medications Ordered That Scott ht Not Have Been Administered Count Last Ordered Date First Ordered Date Carrier Fluids for Secondary Infusion - 0.9% Sodium Chloride 1 02/09/2023 ondansetron (ZOFRAN) injection 4 mg 2 02/0902/08/2023 ondansetron ODT (ZOFRAN-ODT) disintegrating tablet 4 mg 1 02/09/2023 polyethylene glycol (MIRALAX) packet 17 g 1 02/09/2023 sodium chloride 0.9% flush 0.5-20 mL 2 01/21 baclofen (LIORESAL) tablet 5 mg 1 hyoscyamine ER (LEVBID) exte nded release tablet 375 mcg 2 02/08/2023 metoclopramide (REGLAN) 5 mg /mL injection 10 mg 1 02/08/2023 raloxifene (EVISTA) tablet 60 mg 2 02/09/20 Diet Count Last Ordered Date First Orde red Date ADULT DISCHARGE DIET 1 02/11/2023 Nursing Count Last Ordered Date First Orde red Date DISCHARGE ACTIVITY 1 02/11/2023 DISCHARGE INSTRUCTIONS 1 02/11/2023 FOLLOW UP WITH ESTABLISHED PROVIDER 1 02/11 APPLY SPLINT (SPECIFY) 1 02/08/2023 Admission Count Last Ordered Date First Orde red Date ADMIT TO INPATIENT 1 02/08/2023 Transfer Count Last Ordered Date First Orde red Date ED TO FLOOR BED REQUEST 1 02/08/2023 Discharge Count Last Ordered Date First Orde red Date DISCHARGE PATIENT 1 02/11/2023 CORE MEASURES Count Last Ordered Date First Ord ered Date REASON FOR NO VTE PROPHYLAXIS AT ADMISSION 1 02/09/2023 documented in this encounter Care Teams Critical Care Paramedic Relationship Specialty Start Date End Date Iris Delgado MD [address] [facility] [address] [place] [address] PCP - General Internal Medicine 10/18/22 documented as of this encounter
--- OUTSIDE RECORDS SUMMARY | 2024-05-01 13:46 | XMS_ITS | CONTINUITY OF CARE DOCUMENT ---
Author Name rama, rama Address Unknown Organization [facility] Address [address] [place] [address] Phone [phone] Care Team Providers Care Egg Sorter Name Role Phone Vannesa BLACKMAN, Bello Unavailable [phone] IRIS DELGADO MD Unavailable IRIS DELGADO MD Unavailable PROBLEMS Condition Status Date Provider Notes Flank pain active Dorene Lively HTN-11/30 ECHO EF 60 active Bello Granado MD CCM Enroll GERD active ? Bello Granado MD SHORTNESS OF BREATH-11/30 NUC NEG active ? Alfonso Neumann RN ANEMIA active Bello Granado MD PREMATURE VENTRICULAR CONTRA CTIONS, FREQUENT active Giovani Gao MD DIZZINESS active Giovani Gao MD PVC'S- 07/03 HOLTER [id number] active ? Lissett Gao MD CAD-08/03 3 INTEGRITY STENT TO RCA active Ra cesar Granado MD CCM Enroll SHORTNESS OF BREATH active Bello Granado MD Atrial flutter paroxysmal active Bello simms MD CCM Enroll Family History of CVA or Stroke: active ? Benny Granado MD Carotid bruit, left active Bello Granado MD COPD active Bello Granado MD Anemia, iron deficiency active Jared sheridan MD Hyperlipidemia mixed active Bello Sheridan ENCOUNTERS Date Type Provider Location Encounter Diag nosis - In-person encounter Office Visit Bello Granado MD [facility] - In-person encounter Office Visit Bello Granado MD [facility] - In-person encounter Office Visit Bello Granado MD [facility] - In-person encounter Office Visit Bello Granado MD [facility] - In-person encounter Office Visit Bello Granado MD [facility] - In-person encounter Office Visit Bello Granado MD [facility] - In-person encounter Office Visit Bello Granado MD [facility] - In-person encounter Office Visit Bello Granado MD [facility] - In-person encounter Office Visit Bello Granado MD [facility] - In-person encounter Office Visit Bello Granado MD [facility] - In-person encounter Office Visit Bello Granado MD [facility] - In-person encounter Office Visit Bello Granado MD [facility] - In-person encounter Office Visit Bello Granado MD [facility] - In-person encounter Office Visit Bello Granado MD [facility] - In-person encounter Office Visit Bello Grnaado MD [facility] - In-person encounter Office Visit Bello Granado MD [facility] Hyperlipidemia mixed - In-person encounter Office Visit Jared Simpson MD [facility] - In-person encounter Office Visit Jared Simpson MD [facility] Anemia, iron deficiency - In-person encounter Office Visit Bello Granado MD [facility] - In-person encounter Office Visit Bello Granado MD [facility] COPD - In-person encounter Office Visit Bello Granado MD [facility] Carotid bruit, left - In-person encounter Office Visit Bello Granado MD [facility] Family History of CVA or Stroke: - In-person encounter Office Visit Giovani Gao MD [facility] Atrial flutter paroxysmal - In-person encounter Office Visit Giovani Gao MD [facility] - In-person encounter Office Visit Kurt Morales MD [facility] - In-person encounter Office Visit Bello Granado MD [facility] - In-person encounter Office Visit Bello Granado MD [facility] SHORTNESS OF BREATH - In-person encounter Office Visit Bello Granado MD [facility] CAD-08/03 3 INTEGRITY STENT TO RCA - In-person encounter Office Visit Giovani Gao MD [facility] PVC'S- 07/03 HOLTER [id number] - In-person encounter Office Visit Giovani Gao MD [facility] PREMATURE VENTRICULAR CONTRACTIONS, FREQUENTDIZZINESS - In-person encounter Office Visit Bello Granado MD [facility] - In-person encounter Office Visit Bello Granado MD [facility] - In-person encounter Office Visit Bello Granado MD [facility] HTN-11/30 ECHO EF 60GERDSHORTNESS OF BREATH-11/30 NUC NEGANEMIA VITAL SIGNS Date Observation Value Provider Body Mass Index (Ratio) 23.79 kg/m2 Shashi Granado MD blood pressure, diastolic -1 mm[Hg] Marlene nkLoganand blood pressure, systolic 104 mm[Hg] Nora kLoganand blood pressure, diastolic 74 mm[Hg] Sh paris Bailey blood pressure, systolic 104 mm[Hg] She arlyn Bailey weight E&M 143 [lb_av] Jenna Bailey pulse rate 18 /min Jenna Bailey oxygen saturation, oximetry 95 % Jenna Bailey blood pressure, cuff size regular paris Bailey respiratory rate E&M 20 /min Jenna Bailey height E&M 65 [in_i] Jenna Bailey Body Mass Index (Ratio) 24.79 kg/m2 Shashi Granado MD blood pressure, cuff size regular Tr acmary beth Adrian blood pressure, diastolic 106 mm[Hg] Tr acmary beth Livelilia blood pressure, systolic 149 mm[Hg] Tra batsheva Lively oxygen saturation, oximetry 93 % Dorene Lively pulse rate 127 /min Dorene Lively weight E&M 149 [lb_av] Dorene Lively height E&M 65 [in_i] Dorene Lively Body Mass Index (Ratio) 27.12 kg/m2 Shashi Granado MD blood pressure, cuff size large Ke rri Brad blood pressure, diastolic 82 mm[Hg] Ke rri Brad blood pressure, systolic 126 mm[Hg] Rachel Salinas oxygen saturation, oximetry 98 % Jacqueline Salinas respiratory rate E&M 16 /min Jacqueline vieyra pulse rate 101 /min Jacqueline chiu weight E&M 163 [lb_av] Jacqueline jackson height E&M 65 [in_i] Jacqueline Segura [facility] Body Mass Index (Ratio) 26.62 kg/m2 Shashi Granado MD blood pressure, diastolic 98 mm[Hg] Marlene nkLoganand blood pressure, systolic 156 mm[Hg] Nora kLoganand blood pressure, diastolic 98 mm[Hg] Roxanne Bauer blood pressure, systolic 156 mm[Hg] Morena Bauer blood pressure, cuff size regular Roxanne Bauer respiratory rate E&M 18 /min Talita Bauer pulse rate 95 /min Jonathon kidd oxygen saturation, oximetry 96 % Jonathon Bauer weight E&M 160 [lb_av] Jonathon kidd height E&M 65 [in_i] Jonathon kidd Body Mass Index (Ratio) 26.62 kg/m2 Shashi Granado MD blood pressure, diastolic 76 mm[Hg] Roxanne Bauer blood pressure, systolic 126 mm[Hg] Morena Bauer blood pressure, cuff size regular Roxanne Bauer pulse rate 71 /min Jonathon kidd respiratory rate E&M 18 /min Talita rlmary beth Bauer oxygen saturation, oximetry 91 % Jonathon Bauer weight E&M 160 [lb_av] Jonathon kidd height E&M 65 [in_i] Jonathon kidd Body Mass Index (Ratio) 27.72 kg/m2 Shashi Granado MD blood pressure, diastolic 80 mm[Hg] Travis Kiser blood pressure, systolic 122 mm[Hg] Alka Kiser oxygen saturation, oximetry 93 % Jo Kiser respiratory rate E&M 16 /min Jeremias Kiser pulse rate 97 /min Jo terrazas weight E&M 166.6 [lb_av] Jo rao height E&M 65 [in_i] Jo terrazas Body Mass Index (Ratio) 27.62 kg/m2 Shashi Granado MD blood pressure, diastolic 78 mm[Hg] Cy ntbhumikaa Sylvain blood pressure, systolic 140 mm[Hg] Anita mono Narayan pulse rate 99 /min Carmen Campbel l oxygen saturation, oximetry 94 % Carmenmono Narayan blood pressure, cuff size regular Cy ntkameron Narayan respiratory rate E&M 18 /min Carmne Narayan weight E&M 166 [lb_av] Carmen Campbel l height E&M 65 [in_i] Carmen Campbel l Body Mass Index (Ratio) 28.62 kg/m2 Shashi Granado MD blood pressure, cuff size regular Cy ntkameron Narayan blood pressure, diastolic 70 mm[Hg] Cy ntbhumikaa Sylvain blood pressure, systolic 128 mm[Hg] Anita mono Narayan oxygen saturation, oximetry 95 % Carmen Sylvain respiratory rate E&M 16 /min Carmen Narayan pulse rate 112 /min Carmen Campbel l weight E&M 172 [lb_av] Carmen Campbel l height E&M 65 [in_i] Carmen Campbel l Body Mass Index (Ratio) 29.62 kg/m2 Shashi Granado MD blood pressure, cuff size regular Cy ntbhumikaa Sylvain blood pressure, diastolic 80 mm[Hg] Cy nthia Narayan blood pressure, systolic 128 mm[Hg] Anita Narayan oxygen saturation, oximetry 94 % Caremn Narayan respiratory rate E&M 18 /min Carmen Narayan pulse rate 84 /min Carmen cornejo weight E&M 178 [lb_av] Carmen cornejo height E&M 65 [in_i] Carmen Goodrich l blood pressure, cuff size regular norbert Demecs RN blood pressure, diastolic 80 mm[Hg] norbert Demecs RN blood pressure, systolic 140 mm[Hg] [facility], oximetry 95 % [facility] rate E&M 18 /min Sara [facility] pulse rate 96 /min Desoto Demecs R N Body Mass Index (Ratio) 29.52 kg/m2 Vickie ica N Nicolas blood pressure, cuff size regular Je ssica N Nicolas blood pressure, diastolic 60 mm[Hg] Je ssica N Nicolas blood pressure, systolic 110 mm[Hg] Maritza mira Cleo Valenzuela oxygen saturation, oximetry 95 % Camilla N Nicolas respiratory rate E&M 18 /min Camilla N Nicolas pulse rate 94 /min Camilla N Wilso n weight E&M 177.4 [lb_av] Camilla N Wils on Body Mass Index (Ratio) 29.28 kg/m2 Shashi Granado MD blood pressure, cuff size regular Ke rri Brad blood pressure, diastolic 80 mm[Hg] Ke rri Brad blood pressure, systolic 110 mm[Hg] Rachel ri Brad oxygen saturation, oximetry 96 % Jacqueline Brad respiratory rate E&M 20 /min Jacqueline G rangelesdrascheryl pulse rate 120 /min Jacqueline Segura lder weight E&M 176 [lb_av] Jacqueline Segura lder height E&M 65 [in_i] Jacqueline Segura lder Body Mass Index (Ratio) 29.28 kg/m2 Shashi Granado MD blood pressure, diastolic 80 mm[Hg] Da juan Joy blood pressure, systolic 122 mm[Hg] Dac ia Joy oxygen saturation, oximetry 92 % Kaylie Joy respiratory rate E&M 18 /min Kaylie V oss pulse rate 108 /min Kaylie Joy weight E&M 176 [lb_av] Kaylie Joy height E&M 65 [in_i] Kaylie Joy Body Mass Index (Ratio) 30.18 kg/m2 Shashi Granado MD blood pressure, diastolic 87 mm[Hg] Travis Kiser blood pressure, systolic 139 mm[Hg] Alka Kiser oxygen saturation, oximetry 94 % Jo Kiser respiratory rate E&M 20 /min Jeremias Kiser pulse rate 100 /min oJ terrazas weight E&M 181.4 [lb_av] Jo rao height E&M 65 [in_i] Jo terrazas Body Mass Index (Ratio) 30.55 kg/m2 Shashi Granado MD blood pressure, resting Yes Marybeth Kiser blood pressure, diastolic 82 mm[Hg] Travis Kiser blood pressure, systolic 137 mm[Hg] Alka Kiser oxygen saturation, oximetry 96 % Jo Kiser respiratory rate E&M 20 /min Jeremias Kiser pulse rate 99 /min Jo terrazas weight E&M 183.6 [lb_av] Jo rao height E&M 65 [in_i] Jo terrazas Body Mass Index (Ratio) 30.08 kg/m2 Vickie ica N Nicolas blood pressure, cuff size regular Je ssica N Nicolas blood pressure, diastolic 50 mm[Hg] Je ssica N Nicolas blood pressure, systolic 100 mm[Hg] Maritza mira N Nicolas oxygen saturation, oximetry 95 % Camilla N Nicolas respiratory rate E&M 18 /min Camilla N Nicolas pulse rate 80 /min Camilla N Wilso n weight E&M 180.8 [lb_av] Camilla N Wils on Body Mass Index (Ratio) 30.45 kg/m2 Vickie ica N Nicolas blood pressure, cuff size regular norbert Demecs RN blood pressure, diastolic 80 mm[Hg] norbert Demecs RN blood pressure, systolic 144 mm[Hg] [facility] sta Cyndieecs RN oxygen saturation, oximetry 96 % Desoto Demecs RN respiratory rate E&M 18 /min Desoto Cyndieecs RN pulse rate 90 /min Sara Demecs R N weight E&M 183 [lb_av] Sara Demecs R N Body Mass Index (Ratio) 30.62 kg/m2 Shashi Granado MD oxygen saturation, oximetry 96 % Skyla Mohamud respiratory rate E&M 16 /min Skyla Mohamud pulse rate 105 /min Skyla Mohamud blood pressure, cuff size regular Roxanne Mohamud blood pressure, diastolic 80 mm[Hg] Roxanne Mohamud blood pressure, systolic 126 mm[Hg] Khoa Mohamud weight E&M 184 [lb_av] Skyla Mohamud height E&M 65 [in_i] Skyla Mohamud blood pressure, diastolic 60 mm[Hg] Travis Kiser blood pressure, systolic 126 mm[Hg] Alka Kiser pulse rate 110 /min Jo terrazas oxygen saturation, oximetry 93 % Jo Kiser respiratory rate E&M 18 /min Jeremias Kiser Body Mass Index (Ratio) 30.02 kg/m2 Marybeth Kiser weight E&M 180.4 [lb_av] Jo rao blood pressure, diastolic 72 mm[Hg] Travis Kiser blood pressure, systolic 150 mm[Hg] Alka Kiser pulse rate 108 /min Jo terrazas oxygen saturation, oximetry 96 % Jo Kiser respiratory rate E&M 16 /min Jeremias Kiser Body Mass Index (Ratio) 30.58 kg/m2 Marybeth Kiser weight E&M 183.8 [lb_av] Jo rao blood pressure, diastolic 91 mm[Hg] Me heather Otoole blood pressure, systolic 167 mm[Hg] Annamarie trammella Otoole pulse rate 100 /min Gilda Otoole oxygen saturation, oximetry 96 % Gilda Otoole respiratory rate E&M 16 /min Gilda Otoole Body Mass Index (Ratio) 30.28 kg/m2 [facility] [lb_av] Gilda Otoole Body Mass Index (Ratio) 29.45 kg/m2 [facility], diastolic 86 mm[Hg] Me heather Otoole blood pressure, systolic 141 mm[Hg] Annamarie catracho Otoole pulse rate 100 /min Gilda Otoole oxygen saturation, oximetry 97 % Gilda Ootole respiratory rate E&M 16 /min Gilda Otoole weight E&M 177 [lb_av] Gilda Otoole blood pressure, diastolic 80 mm[Hg] Travis Kiser blood pressure, systolic 131 mm[Hg] Alka Kiser Body Mass Index (Ratio) 29.65 kg/m2 Marybeth Kiser pulse rate 121 /min Jo terrazas oxygen saturation, oximetry 95 % Jo Kiser respiratory rate E&M 18 /min Jeremias Kiser weight E&M 178.2 [lb_av] Jo rao Body Mass Index (Ratio) 29.78 kg/m2 Anea veronica [facility] blood pressure, diastolic 73 mm[Hg] An eatris [facility] blood pressure, systolic 126 mm[Hg] Ane atris [facility] pulse rate 83 /min Aneatris [facility] oxygen saturation, oximetry 96 % Lauritaatris [facility] respiratory rate E&M 18 /min Aneatri s Brown weight E&M 179 [lb_av] Aneatris Brown Body Mass Index (Ratio) 29.62 kg/m2 Anea veronica [facility] blood pressure, diastolic 75 mm[Hg] An eatris [facility] blood pressure, systolic 135 mm[Hg] Ane atris Brown pulse rate 85 /min Aneatris Brown oxygen saturation, oximetry 96 % Aneatris Brown respiratory rate E&M 17 /min Aneatri s Brown weight E&M 178 [lb_av] Aneatris Brown blood pressure, diastolic 73 mm[Hg] An eatris [facility] blood pressure, systolic 132 mm[Hg] Ane atris Brown Body Mass Index (Ratio) 30.62 kg/m2 Anea veronica [facility] pulse rate 80 /min Mario Herndon oxygen saturation, oximetry 98 % Mario Herndon respiratory rate E&M 16 /min Preston gray [facility] weight E&M 184 [lb_av] Mario Herndon blood pressure, diastolic 75 mm[Hg] Me romero tOoole blood pressure, systolic 156 mm[Hg] Annamarie trammella Otoole pulse rate 80 /min Gilda Otoole oxygen saturation, oximetry 97 % Gilda Otoole Body Mass Index (Ratio) 30.28 kg/m2 Aida gay [facility] respiratory rate E&M 16 /min Gilda Otoole weight E&M 182 [lb_av] Gilda Otoole Body Mass Index (Ratio) 30.95 kg/m2 Cherie uday Arriaza blood pressure, ackerman tolic, second observation 58 mm[Hg] Alanis Arriaza blood pressure, syst olic, second observation 110 mm[Hg] Alanis Fragaoney blood pressure, diastolic 58 mm[Hg] Na robeun FragaArriaza blood pressure, systolic 110 mm[Hg] Sofy isabel Arriaza pulse rate 45 /min Alanis Fragaoney oxygen saturation, oximetry 94 % Alanis Fragaoney respiratory rate E&M 20 /min Alanis Fragaoney weight E&M 186 [lb_av] Alanis Fragaoney Body Mass Index (Ratio) 30.73 kg/m2 Aida ssa Otoole blood pressure, diastolic, left arm 59 mm [Hg] Gilda Otoole blood pressure, systolic, left arm 135 mm [Hg] Gilda Otoole blood pressure, diastolic, right arm 63 m m[Hg] Gilda Otoole blood pressure, systolic, right arm 102 m m[Hg] Gilda Otoole blood pressure, diastolic 63 mm[Hg] Me heather Otoole blood pressure, systolic 102 mm[Hg] Annamarie Otoole pulse rate 42 /min Gilda Otoole oxygen saturation, oximetry 99 % Gilda Otoole respiratory rate E&M 18 /min Gilda Otoole weight E&M 184 [lb_av] Gilda Otoole Body Mass Index (Ratio) 30.23 kg/m2 Jasonl mendoza Langleyjonatahn blood pressure, diastolic 70 mm[Hg] As mendoza jonathan blood pressure, systolic 110 mm[Hg] [facility] 71 /min Adeola [facility] oxygen saturation, oximetry 98 % Adeola Langleyjonathan respiratory rate E&M 18 /min Adeola Langleyjonathan weight E&M 181 [lb_av] Adeola Langleyjonathan Body Mass Index (Ratio) 30.56 kg/m2 Aida gay Otoole blood pressure, diastolic 72 mm[Hg] Ar heather blood pressure, systolic 118 mm[Hg] Annamarie hayden O[place]ole pulse rate 70 /min Gilda Otoole oxygen saturation, oximetry 97 % Gilda Otoole respiratory rate E&M 16 /min Gilda Otoole weight E&M 183 [lb_av] Gilda Otoole blood pressure, diastolic 82 mm[Hg] Daniel Neumann RN blood pressure, systolic 137 mm[Hg] Alfonso Neumann RN pulse rate 84 /min Alfonso Neumann RN oxygen saturation, oximetry 96 % Alfonso Neumann RN respiratory rate E&M 14 /min Alfonso harper RN Body Mass Index (Ratio) 30.40 kg/m2 Alfonso Neumann RN weight E&M 182 [lb_av] Alfonso Neumann RN blood pressure, diastolic 50 mm[Hg] Daniel Neumann RN blood pressure, systolic 132 mm[Hg] Alfonso Neumann RN pulse rate 72 /min Alfonso Neumann RN oxygen saturation, oximetry 97 % Alfonso Neumann RN respiratory rate E&M 16 /min Alfonso harper RN Body Mass Index (Ratio) 30.56 kg/m2 Alfonso Del Rios RN weight E&M 183 [lb_av] Alfonso Neumann RN Body Mass Index (Ratio) 30.73 kg/m2 Herr i Brad blood pressure, diastolic 52 mm[Hg] Ke rri Brad blood pressure, systolic 102 mm[Hg] Rachel Salinas pulse rate 44 /min Jacqueline jacksoner oxygen saturation, oximetry 97 % Jacqueline Salinas respiratory rate E&M 16 /min Jacqueline vieyra weight E&M 184 [lb_av] Jacqueline jacksoner height E&M 65 [in_i] Jacqueline jacksoner blood pressure, diastolic 82 mm[Hg] John Paul Alvarez blood pressure, systolic 138 mm[Hg] Angela Alvarez pulse rate 73 /min Emma Alvarez oxygen saturation, oximetry 97 % Emma Alvarez respiratory rate E&M 195 /min Emma lundberg weight E&M 195 [lb_av] Emma Alvarez blood pressure, diastolic 66 mm[Hg] Daniel Neumann RN blood pressure, systolic 119 mm[Hg] Alfonso Neumann RN pulse rate 83 /min Alfonso Neumann RN oxygen saturation, oximetry 96 % Alfonso Neumann RN respiratory rate E&M 18 /min Alfonso harper RN weight E&M 187 [lb_av] Alfonso Neumann RN blood pressure, diastolic 66 mm[Hg] Daniel Neumann RN blood pressure, systolic 118 mm[Hg] Alfonso Del Riomarina SERRANO weight E&M 185 [lb_av] Alfonso Del Riomarina SERRANO pulse rate 83 /min Alfonso Del Riomarina SERRANO oxygen saturation, oximetry 96 % Alfonso Del Riomarina SERRANO respiratory rate E&M 18 /min Alfonso harper RN ALLERGIES Allergy Name Onset Date Reaction Criticality Status SILK TAPE High Criticality suspende d STATINS Low Criticality active SULFA Low Criticality active CIPRO Low Criticality active RESULTS Date Observation Value Provider Reference Range Interpretation Location ferritin, serum 760 ng/mL [facility] 15-150 High iron saturation percent, serum 40 % [facility] 15-55 iron, serum 101 ug/dL [facility] 27-139 iron binding capacity, unsaturated 152 ug/dL [facility] [phone]/06 /08 iron binding capacity, total 253 ug/dL [facility] 515-610 2396/06 /08 basophil count, absolute 0.0 x10E3/uL [facility] 0.0-0.2 Eosinophil Absolute Count 0.2 X10E3/UL [facility] 0.0-0.4 monocyte count, blood, automated 0.5 X10E3/UL [facility] 0.1-0.9 lymphocyte count, blood, automated 1.9 X10E3/UL [facility] 0.7-3.1 Absolute Neutrophils 5.3 X10E3/UL [facility] 1.4-7.0 basophils as percent of blood leukocytes 0 % [facility] Not Estab. eosinophils as percent of blood leukocytes 2 % [facility] Not Estab. monocytes as percent of blood leukocytes 7 % [facility] Not Estab. lymphocytes as percent of blood leukocytes 24 % [facility] Not Estab. neutrophils as percent of blood leukocytes 67 % [facility] Not Estab. platelet count 190 X10E3/UL [facility] [phone]/06 /08 red blood cell distribution width 18.5 % [facility] 12.3-15.4 High mean corpuscular hemoglobin concentration, RBC 31.3 G/DL [facility] 31.5-35.7 Low mean corpuscular hemoglobin, RBC 30.0 pg [facility] 26.6-33.0 mean corpuscular volume, RBC 96 fL [facility] 79-97 hematocrit, blood 48.2 % [facility] 34.0-46.6 High hemoglobin, blood 15.1 g/dL [facility] 11.1-15.9 erythrocyte (RBC) count 5.04 X10E6/UL [facility] 3.77-5.28 leukocyte count, blood 7.9 X10E3/UL [facility] 3.4-10.8 urine culture Final report [facility] Abnormal bacteria, urine microscopy Few [facility] None seen/Few cast type, urinalysis Hyaline casts [facility] N/A hyaline casts, urine Present [facility] None seen Abnormal epithelial cells, urine 0-10 [facility] 0 - 10 RBC, Urine 0-2 /hpf [facility] 0 - 2 WBC urine on microscopy 11-30 /hpf [facility] 0 - 5 Abnormal urinalysis, microscopic examination See below: [facility] nitrate, urine Positive [facility] Negative Abnormal urobilinogen, urine, semiquantitative (dipstick) 0.2 [facility] 0.2-1.0 bilirubin, urine Negative [facility] Negative hemoglobin, urine, by dipstick Negative [facility] Negative ketones, urine, by test strip Trace [facility] Negative Abnormal glucose, urine Negative [facility] Negative protein, urine, semiquantitative (dipstick) Trace [facility] Negative/Tr liborio leukocyte esterase, urine, by dipstick 1+ [facility] Negative Abnormal appearance, urine Cloudy [facility] Clear Abnormal urine color Yellow [facility] Yellow pH, urine, semiquantitative 5.5 [facility] 5.0-7.5 specific gravity, body fluid 1.024 [facility] 1.005-1.030 urine culture Preliminary report [facility] Abnormal ferritin, serum 34 ng/mL [facility] 15-150 iron saturation percent, serum 18 % [facility] 15-55 iron, serum 64 ug/dL [facility] 27-139 iron binding capacity, unsaturated 290 ug/dL [facility] [phone]/03 /06 iron binding capacity, total 354 ug/dL [facility] [phone]/03 /06 basophil count, absolute 0.0 x10E3/uL [facility] 0.0-0.2 Eosinophil Absolute Count 0.2 X10E3/UL [facility] 0.0-0.4 monocyte count, blood, automated 0.3 X10E3/UL [facility] 0.1-0.9 lymphocyte count, blood, automated 1.5 X10E3/UL [facility] 0.7-3.1 Absolute Neutrophils 5.6 X10E3/UL [facility] 1.4-7.0 basophils as percent of blood leukocytes 0 % [facility] Not Estab. eosinophils as percent of blood leukocytes 2 % [facility] Not Estab. monocytes as percent of blood leukocytes 4 % [facility] Not Estab. lymphocytes as percent of blood leukocytes 20 % [facility] Not Estab. neutrophils as percent of blood leukocytes 74 % [facility] Not Estab. platelet count 279 X10E3/UL [facility] 142-107 9529/03 /06 red blood cell distribution width 13.7 % [facility] 12.3-15.4 mean corpuscular hemoglobin concentration, RBC 33.3 G/DL [facility] 31.5-35.7 mean corpuscular hemoglobin, RBC 28.7 pg [facility] 26.6-33.0 mean corpuscular volume, RBC 86 fL [facility] 79-97 hematocrit, blood 43.3 % [facility] 34.0-46.6 hemoglobin, blood 14.4 g/dL [facility] 11.1-15.9 erythrocyte (RBC) count 5.01 X10E6/UL [facility] 3.77-5.28 leukocyte count, blood 7.7 X10E3/UL [facility] 3.4-10.8 ferritin, serum 347.5 ng/mL [facility] 13.0 - 150.0 High red blood cell distribution width, size density 80.7 [facility] granulocytes, percentage of total cells, blood 0.3 % [facility] - nucleated red blood cells as percent of blood leukocytes 0.0 % [facility] - red blood cell (erythrocyte) count, per high power field 0.0 10*3/UL [facility] - eosinophils as percent of blood leukocytes 2.6 % [facility] - neutrophils as percent of blood leukocytes 66.8 % [facility] - Absolute Neutrophils 5.1 CELLS/UL [facility] 1.5 - 7.8 basophils as percent of blood leukocytes 0.4 % [facility] Basophils 0.0 CELLS/UL [facility] 0.0 - 0.2 monocytes as percent of blood leukocytes 7.1 % [facility] - Absolute Monocytes 0.5 CELLS/UL [facility] 0.2 - 1.0 lymphocytes as percent of blood leukocytes 22.8 % [facility] - Absolute Lymphocytes 1.7 CELLS/UL [facility] 0.9 - 3.9 mean platelet volume 11.9 (?) [facility] - platelet count 197.0 THOUSAND/UL [facility] 100.0 - 400.0 mean corpuscular hemoglobin concentration, RBC 30.4 G/DL [facility] 31.0 - 38.0 Low mean corpuscular hemoglobin, RBC 28.6 pg [facility] 25.0 - 35.0 mean corpuscular volume, RBC 94.0 fL [facility] 75.0 - 100.0 hematocrit, blood 47.0 % [facility] 35.0 - 55.0 hemoglobin, blood 14.3 g/dL [facility] 11.5 - 16.5 erythrocyte count, whole blood 5.0 MILLION/UL [facility] 3.5 - 5.5 iron, serum 88.0 ug/dL [facility] 25.0 - 156.0 iron saturation percent, serum 27.9 % [facility] 20.0 - 50.0 iron binding capacity, total 315.0 ug/dL [facility] 250.0 - 450.0 folate, serum 18.2 NG/MLM [facility] 5.6 - 45.8 vitamin b12, serum 1539.0 pg/mL [facility] 211.0 - 946.0 High ferritin, serum 10.1 ng/mL [facility] 13.0 - 150.0 Low red blood cell distribution width, size density 53.9 fL [facility] - immature granulocytes, percentage of total cells, blood 0.2 % [facility] - nucleated red blood cells as percent of blood leukocytes 0.0 % [facility] - red blood cell (erythrocyte) count, per high power field 0.0 10*3/UL [facility] - eosinophils as percent of blood leukocytes 1.6 % [facility] - neutrophils as percent of blood leukocytes 70.9 % [facility] - Absolute Neutrophils 6.3 CELLS/UL [facility] 1.5 - 7.8 basophils as percent of blood leukocytes 0.4 % [facility] - Absolute Basophils 0.0 CELLS/UL [facility] 0.0 - 0.2 monocytes as percent of blood leukocytes 6.5 % [facility] - Absolute Monocytes 0.6 CELLS/UL [facility] 0.2 - 1.0 lymphocytes as percent of blood leukocytes 20.4 % [facility] - Absolute Lymphocytes 1.8 CELLS/UL [facility] 0.9 - 3.9 mean platelet volume 11.5 (?) [facility] - platelet count 330.0 THOUSAND/UL [facility] 100.0 - 400.0 mean corpuscular hemoglobin concentration, RBC 28.8 G/DL [facility] 31.0 - 38.0 Low mean corpuscular hemoglobin, RBC 24.5 pg [facility] 25.0 - 35.0 Low mean corpuscular volume, RBC 85.1 fL [facility] 75.0 - 100.0 hematocrit, blood 44.4 % [facility] 35.0 - 55.0 hemoglobin, blood 12.8 g/dL [facility] 11.5 - 16.5 erythrocyte count, whole blood 5.2 MILLION/UL [facility] 3.5 - 5.5 iron, serum 46.0 ug/dL [facility] 25.0 - 156.0 iron saturation percent, serum 9.0 % [facility]0 Low iron binding capacity, total 511.0 ug/dL [facility] 250.0 - 450.0 High reticulocyte count, absolute 0.140 10*6 [facility]S/[facility] count, blood, uncorrected 2.68 % [facility] 0.50 - 2.00 High very low density lipoproteins 29.8 mg/dL [facility] 5.0 - 40.0 LDL/HDL (low-density lipoprotein/high-de nsity lipoprotein) ratio 0.3 RATIO [facility] - lipoprotein, beta, serum, point, quantitative, calculated 13.2 (?) [facility] 0.0 - 100.0 HDL cholesterol, serum 52.0 mg/dL [facility] 45.0 - 65.0 cholesterol, serum 95.0 mg/dL [facility] 0.0 - 200.0 triglyceride, serum, fasting 149.0 mg/dL [facility] 0.0 - 150.0 anion gap, serum 10.6 [facility] - albumin/globulin ratio, serum 1.3 g/dL [facility] 1.1 - 2.5 globulin, serum 2.9 [facility] 2.3 - 3.8 urea nitrogen/creatinine ratio, serum 17.8 [facility] - Estimated Glomerular Filtration Rate (calc) 64.0 (?) [facility] 59.0 - chloride, serum 103.4 mmol/L [facility] 98.0 - 107.0 potassium, serum 4.9 mmol/L [facility] 3.5 - 5.1 sodium, serum 142.0 mmol/L [facility] 136.0 - 145.0 creatinine, serum 0.9 mg/dL [facility] 0.5 - 1.0 carbon dioxide, venous blood 28.0 mmol/L [facility] 23.0 - 31.0 albumin, serum 3.8 g/dL [facility] 3.5 - 5.2 calcium, serum 8.9 mg/dL [facility] 8.6 - 10.2 aspartate aminotransferase (SGOT), serum 15.0 1/L [facility] 0.0 - 32.0 alkaline phosphatase, serum 94.0 1/L [facility] 40.0 - 130.0 alanine aminotransferase (SGPT), serum 9.0 1/L [facility] 0.0 - 33.0 protein, total, serum 6.7 g/dL [facility] 6.6 - 8.7 bilirubin, serum, total 0.3 mg/dL [facility] 0.0 - 1.2 urea nitrogen, blood 16.0 mg/dL [facility] 8.0 - 23.0 blood glucose, random 111.0 mg/dL [facility] 74.0 - 99.0 High very low density lipoproteins 31.8 mg/dL [facility] 5.0 - 40.0 LDL/HDL (low-density lipoprotein/high-de nsity lipoprotein) ratio 0.6 RATIO [facility] - lipoprotein, beta, serum, point, quantitative, calculated 35.2 (?) [facility] 0.0 - 100.0 HDL cholesterol, serum 55.0 mg/dL [facility] 45.0 - 65.0 cholesterol, serum 122.0 mg/dL [facility] 0.0 - 200.0 triglyceride, serum, fasting 159.0 mg/dL [facility] 0.0 - 150.0 High very low density lipoproteins 46.6 mg/dL [facility] 5.0 - 40.0 High LDL/HDL (low-density lipoprotein/high-de nsity lipoprotein) ratio 2.0 RATIO [facility] - lipoprotein, beta, serum, point, quantitative, calculated 108.4 (?) [facility] 0.0 - 100.0 High HDL cholesterol, serum 55.0 mg/dL [facility] 45.0 - 65.0 cholesterol, serum 210.0 mg/dL [facility] 0.0 - 200.0 High triglyceride, serum, fasting 233.0 mg/dL [facility] 0.0 - 150.0 High anion gap, serum 15.2 [facility] - albumin/globulin ratio, serum 2.2 g/dL [facility] 1.1 - 2.5 globulin, serum 3.4 [facility] 2.3 - 3.8 urea nitrogen/creatinine ratio, serum 23.0 [facility] - Estimated Glomerular Filtration Rate (calc) 57.0 (?) [facility] 59.0 - Low chloride, serum 103.8 mmol/L [facility] 98.0 - 107.0 potassium, serum 5.2 mmol/L [facility] 3.5 - 5.1 High sodium, serum 144.0 mmol/L [facility] 136.0 - 145.0 creatinine, serum 1.0 mg/dL [facility] 0.5 - 0.9 High carbon dioxide, venous blood 25.0 mmol/L [facility] 23.0 - 31.0 albumin, serum 4.1 g/dL [facility] 3.5 - 5.2 calcium, serum 9.3 mg/dL [facility] 8.6 - 10.2 aspartate aminotransferase (SGOT), serum 25.0 1/L [facility] 0.0 - 32.0 alkaline phosphatase, serum 101.0 1/L [facility] 40.0 - 130.0 alanine aminotransferase (SGPT), serum 12.0 1/L [facility] 0.0 - 33.0 protein, total, serum 7.5 g/dL [facility] 6.6 - 8.7 bilirubin, serum, total 0.3 mg/dL [facility] 0.0 - 1.2 urea nitrogen, blood 23.0 mg/dL [facility] 8.0 - 23.0 blood glucose, random 72.0 mg/dL [facility] 74.0 - 99.0 Low coagulation managed by Alfonso Neumann RN international normalized ratio (INR) 4.4 Alfonso Neumann RN Normal prothrombin time (patient) 44.1 s Alfonso Neumann RN coagulation managed by Alfonso Neumann RN international normalized ratio (INR) 1.9 Alfonso Neumann RN Normal prothrombin time (patient) 19 s Alfonso Neumann RN coagulation managed by Alfonso Neumann RN international normalized ratio (INR) 7.5 Alfonso Neumann RN Normal coagulation managed by Alfonso Neumann RN international normalized ratio (INR) 8.4 Alfonso Neumann RN Normal prothrombin time (patient) 96.4 s Alfonso Neumann RN B-type natriuretic peptide 332 pg/mL [facility] <100 High international normalized ratio (INR) 1.00 RATIO [facility] 0.81-1.21 Normal prothrombin time (patient) 13.6 s [facility] 11.5-15.5 Normal basophils, absolute, manual 0.05 K/UL [facility] 0.0-0.1 Normal basophils as percent of blood leukocytes 0.6 % [facility] 0.3-0.9 Normal eosinophils, absolute, manual 0.26 K/UL [facility] 0.1-0.5 Normal eosinophils as percent of blood leukocytes 3.0 % [facility] 1.1-7.6 Normal monocyte count, blood 0.67 10*3/mm3 [facility] 0.2-0.7 Normal monocytes as percent of blood leukocytes 7.8 % [facility] 4.2-11.2 Normal lymphocytes as percent of blood leukocytes 2.42 K/UL [facility] 0.6-3.4 Normal lymphocytes, absolute 28.4 % [facility] 19.8-46.2 Normal neutrophil count, absolute 5.14 K/uL [facility] 1.9-5.9 Normal neutrophils as percent of blood leukocytes 60.2 % [facility] 42.7-72.4 Normal mean platelet volume 10.0 % [facility] 7.4-9.9 High red blood cell distribution width 13.2 % [facility] 10.9-14.6 Normal platelet count 242 10*3/mm3 [facility] 165-429 Normal mean corpuscular hemoglobin concentration, RBC 32.7 % [facility] 32.5-34.5 Normal mean corpuscular hemoglobin, RBC 27.0 pg [facility] 21.5-33.3 Normal mean corpuscular volume, RBC 83 fL [facility] 76-98 Normal hematocrit, blood 39.5 % [facility] 34.4-47.3 Normal hemoglobin, blood 12.9 g/dL [facility] 11.8-15.6 Normal erythrocyte (RBC) count 4.78 M/UL [facility] 3.8-5.5 Normal leukocyte count, blood 8.5 10*3/mm3 [facility] 3.7-8.9 Normal calcium, serum 8.9 mg/dL [facility] 8.6-10.0 Normal blood glucose, random 95 mg/dL [facility] 74-109 Normal eGFR if 89 mL/min/{1.73_ m2} [facility] >60 Normal eGFR if not 74 mL/min/{1.73_ m2} [facility] >60 Normal urea nitrogen/creatinine ratio, serum 18.8 ratio [facility] 8.0-25.0 Normal creatinine, serum 0.8 mg/dL [facility] 0.50-0.90 Normal urea nitrogen, blood 15 mg/dL [facility] 6-20 Normal carbon dioxide, venous blood 26 mmol/L [facility] 22-29 Normal chloride, serum 104 MEQ/L [facility] 98-107 Normal potassium, serum 4.5 MEQ/L [facility] 3.5-5.1 Normal sodium, serum 141 MEQ/L [facility] 136-145 Normal HISTORY OF MEDICATION USE Medication Status Instructions Dates Provider Indications Com ments amlodipine 10 mg tablet active Take 1 tablet by mouth every morning Bello Penaloza 140 mg/mL pen injector active INJECT 140 MG (1 ML) SUBCUTANEOUSLY EVERY 2 WEEKS Marge Chase Calcium 500 + D unspecified unspecified active Take 1 tablet by mouth once a day Jacqueline Penaloza 140 mg/mL pen injector completed INJECT SUBCUTANEOUSLY EVERY 2 WEEKS - Margecharu Chase donepezil 10 mg tablet active Take 1 once a day Jonathon Bauer fluoxetine 10 mg capsule completed Take 1 capsule once a day - Jacqueline Salinas DOXYCYCLINE HYCLATE 100 MG ORAL TABLET completed Take one tablet daily for 7 days - Fernanda Walden RN VITAMIN C TABLET completed as needed - Jacqueline Salinas MULTIVITAMINS ORAL CAPSULE completed 1 tablet once a day - Jacqueline Salinas ATORVASTATIN CALCIUM 10 MG ORAL TABLET completed take one every day at bedtime - Alfonso Hogue SureEspinoza 140 mg/mL pen injector completed Inject subcutaneously every two weeks - Nima Costa Aleve 220 mg capsule completed twice a day - Jacqueline Salinas METOPROLOL SUCCINATE ER 25 MG ORAL TABLET EXTENDED RELEASE 24 HOUR completed 1/2 tab daily - Bello Granado MD ZETIA 10 MG ORAL TABLET completed ONE TAB. DAILY - Jo Kiser Evista 60 mg tablet active 1 tablet once a day Bello Granado MD METOPROLOL SUCCINATE ER 25 MG ORAL TABLET EXTENDED RELEASE 24 HOUR completed one tab. daily - Tanvi Valenzuela COUMADIN 5 MG ORAL TABLET completed ONE TABLET Fri and Sun- 1/2 tab on Sat - Mario Herndon ASPIRIN 81 MG ORAL TABLET active 1 tablet once a day Bello Granado MD EFFIENT 10 MG ORAL TABLET completed One tablet daily - Bello Granado MD CLOPIDOGREL BISULFATE 75 MG ORAL TABLET completed 1 tab daily - Bello Granado MD BRILINTA 90 MG ORAL TABLET completed One tab. twice daily (replaces Effient) - Bello Granado MD EFFIENT 10 MG ORAL TABLET completed One tablet daily - Marybeth Person RN CLOPIDOGREL BISULFATE 75 MG ORAL TABLET completed Take 1 tablet daily by mouth - Alfonso Neumann RN METOPROLOL SUCCINATE ER 25 MG ORAL TABLET EXTENDED RELEASE 24 HOUR completed one tab. daily - Alanis Fragaoney SIMVASTATIN 20 MG ORAL TABLET completed take one pill a day - Adeola Peres ALEVE CAPSULE completed 2 am 1 pm - Gilda Sydnie PROAIR HFA AEROSOL SOLUTION completed as needed - Alfonso Neumann RN IRON TABS completed daily - Emma Alvarez VITAMIN B12 TABLET completed daily - Jo Kiser EQL FISH OIL CAPSULE completed 1 tab daily - Jo Kiser FIBERZYME CONCENTRATE-HP CAPS active 2 every morning Jacqueline Salinas Lactaid 3,000 unit tablet completed 2 once a day - Jacqueline Salinas GNP CALCIUM 600/D TABLET completed 1 tab daily - Skyla Mohamud PREVACID CPDR active as directed Jo Kiser Prozac 20 mg capsule active 1 tablet once a day Bello Granado MD EVISTA 60 MG ORAL TABLET completed 1 tab daily - Bello Granado MD SOCIAL HISTORY Date Observation Value Provider social history E&M Ethnicity: Elizabeth Dudley arital Status: L kendra with family/friends Smoking History: Delia garcia has never smoked. Bello Granado MD social history reviewed E&M revi ewed - no changes required Bello Granado MD smoking status Never smoker Jenna Lynn social history reviewed E&M revi ewed - no changes required Bello Granado MD social history E&M Ethnicity: Elizabeth Dudley arital Status: L kendra with family/friends Smoking History: Delia garcia is a former smoker. Bello Granado MD social history reviewed E&M revi ewed - no changes required Bello Granado MD seatbelt usage 100 % Jacqueline juares exercise type cardiac rehab Jacqueline juares physical exercise, frequency, days per week 3 /wk Jacqueline Salinas caffeine use, averag e drinks per day yes Jacqueline Salinas passive cigarette sm flip exposure no Jacqueline Salinas smoking, year quit 1983 Jacqueline reedpapa number of years as a smoker 10 years or m ore Jacqueline Salinas smoking, date started 1952 Jacqueline Salinas smoking history, tot al pack/year 64 Jacqueline Salinas smoking history, tot al pack/day 1 Jacqueline Salinas cigarette use yes Jacqueline escobar smoking status Former smoker Jacqueline minershawn social history reviewed E&M revi ewed - no changes required Bello Granado MD social history reviewed E&M revi ewed - no changes required Bello Granado MD social history E&M Ethnicity: Ca gauravapplecleo M arital Status: Sarah gardner with family/friends Smoking History: Delia garcia is a former smoker. Bello Granado MD social history reviewed E&M revi ewed - no changes required Bello Granado MD seatbelt usage 100 % Jo Rahman exercise type cardiac rehab Jo Rahman physical exercise, frequency, days per week 3 /wk Jo Kiser caffeine use, averag e drinks per day yes Jo Kiser passive cigarette sm flip exposure no Jo Kiser smoking, year quit 1983 Jo Kiser number of years as a smoker 10 years or m ore Jo Kiser smoking, date started 1953 Cruz Kiser smoking history, tot al pack/year 64 Jo Kiser smoking history, tot al pack/day 1 Jo Kiser cigarette use yes Jo rao smoking status Former smoker Jo Hameed social history E&M Ethnicity: Elizabeth Dudley arital Status: L kendra with family/friends Smoking History: P atient is a former smoker. Bello Granado MD social history reviewed E&M revi ewed - no changes required Bello Granado MD seatbelt usage 100 % Carmen richey exercise type cardiac rehab Carmen richey physical exercise, frequency, days per week 3 /wk Carmen Narayan caffeine use, averag e drinks per day yes Carmen Narayan passive cigarette sm flip exposure no Carmen Narayan smoking, year quit 1983 Carmen hinton number of years as a smoker 10 years or m ore Carmen Narayan smoking, date started 1952 Geraldo Narayan smoking history, tot al pack/year 64 Carmen Narayan smoking history, tot al pack/day 1 Carmen Narayan cigarette use yes Carmen anguiano smoking status Former smoker Carmen hannon social history E&M Ethnicity: Elizabeth Dudley arital Status: L kendra with family/friends Smoking History: P atient is a former smoker. Bello Granado MD social history reviewed E&M revi ewed - no changes required Bello Granado MD seatbelt usage 100 % Carmen richey exercise type cardiac rehab Carmen richey physical exercise, frequency, days per week 3 /wk Carmen Narayan caffeine use, averag e drinks per day yes Carmen Narayan passive cigarette sm flip exposure no Carmen Narayan smoking, year quit 1983 Carmen hinton number of years as a smoker 10 years or m ore Carmen Narayan smoking, date started 1952 Geraldo Narayan smoking history, tot al pack/year 63 Carmen Narayan smoking history, tot al pack/day 1 Carmen Narayan cigarette use yes Carmen Stoneyoung anguiano smoking status Former smoker Carmen Stone hannon social history E&M Ethnicity: Elizabeth Dudley arital Status: L kendra with family/friends Smoking History: P atient is a former smoker. Bello Granado MD social history reviewed E&M revi ewed - no changes required Bello Granado MD seatbelt usage 100 % Carmen Dary richey exercise type cardiac rehab Carmen richey physical exercise, frequency, days per week 3 /wk Carmen Narayan caffeine use, averag e drinks per day yes Carmen Narayan passive cigarette sm flip exposure no Carmen Narayan smoking, year quit 1983 Carmen hinton number of years as a smoker 10 years or m ore Carmen Narayan smoking, date started 1952 Geraldo Narayan smoking history, tot al pack/year 63 Carmen Narayan smoking history, tot al pack/day 1 Carmen Narayan cigarette use yes Carmen Stoneyoung smoking status Former smoker Carmen Stone hannon social history E&M Ethnicity: Elizabeth Dudley arital Status: L kendra with family/friends Smoking History: P atient is a former smoker. Bello Granado MD social history reviewed E&M revi ewed - no changes required Bello Granado MD seatbelt usage 100 % Jacqueline juares exercise type cardiac rehab Jacqueline juares physical exercise, frequency, days per week 3 /wk Jacqueline Tomyonynapoleon alcohol use, average drinks per day social basis only Jacqueline Salinas alcohol use no Jacqueline Segura manueler caffeine use, averag e drinks per day yes Jacqueline Salinas drug use none Jacqueline Segura manueler passive cigarette sm flip exposure no Jacqueline Salinas smoking, year quit 1983 Jacqueline Swartz snehal number of years as a smoker 10 years or m ore Jacqueline Tomyonynapoleon smoking, date started 1953 Jacqueline Tomyonynapoleon smoking history, tot al pack/year 63 Jacqueline Tomyonynapoleon smoking history, tot al pack/day 1 Jacqueline Tomshawn cigarette use yes Jacqueline Tom [facility] smoking status Former smoker Jacqueline Márquez cheryl social history reviewed E&M revi ewed - no changes required Bello Granado MD social history E&M Ethnicity: Elizabeth oscar Octavia arital Status: L kendra with family/friends Smoking History: Delia garcia is a former smoker. Bello Granado MD seatbelt usage 100 % Kaylie Joy exercise type cardiac rehab Kaylie Joy physical exercise, frequency, days per week 3 /wk Kaylie Joy alcohol use, average drinks per day social basis only Kaylie Joy alcohol use no Kaylie Joy caffeine use, averag e drinks per day yes Kaylie Joy drug use none Kaylie Joy passive cigarette sm flip exposure no Kaylie Joy smoking, year quit 1983 Kaylie Tracey s number of years as a smoker 10 years or m ore Kaylie Joy smoking, date started 1952 Kaylie Joy smoking history, tot al pack/year 64 Kaylie Joy smoking history, tot al pack/day 1 Kaylie Joy cigarette use yes Kaylie Joy smoking status Former smoker Kaylie Joy social history E&M Ethnicity: Elizabeth oscar M arital Status: L kendra with family/friends Smoking History: P atient is a former smoker. Bello Granado MD social history reviewed E&M revi ewed - no changes required Bello rGanado MD seatbelt usage 100 % Jo Rahman exercise type cardiac rehab Jo Rahman physical exercise, frequency, days per week 3 /wk Jo Kiser alcohol use, average drinks per day social basis only Jo Kiser alcohol use no Jo terrazas caffeine use, averag e drinks per day yes Jo Kiser drug use none Jo Cardona mk passive cigarette sm flip exposure no Jo Longoenson smoking, year quit 1984 Jo Kiser number of years as a smoker 10 years or m ore Jo Longoenson smoking, date started 1952 MarybethAdalberto aakash Kiser smoking history, tot al pack/year 63 Jo Longoenson smoking history, tot al pack/day 1 Jo Kiser cigarette use yes Jo Donta jalen smoking status Former smoker Jo Hameed social history E&M Ethnicity: Elizabeth Dudley arital Status: L kendra with family/friends Smoking History: P attiti is a former smoker. Bello Granado MD social history reviewed E&M revi ewed - no changes required Bello Granado MD seatbelt usage 100 % Jo Rahman exercise type cardiac rehab Jo Rahman physical exercise, frequency, days per week 3 /wk Jo Kiser alcohol use, average drinks per day social basis only Jo Kiser alcohol use no Jo terrazas caffeine use, averag e drinks per day yes Jo Kiser drug use none Jo terrazas passive cigarette sm flip exposure no Jo Kiser smoking, year quit 1983 Jo Kiser number of years as a smoker 10 years or m ore Jo Kiser smoking, date started 1952 Cruz Kiser smoking history, tot al pack/year 63 Jo Kiser smoking history, tot al pack/day 1 Jo Kiser cigarette use yes Jo rao smoking status Former smoker Jo Hameed social history reviewed E&M joseph terrazas - no changes required Bello Granado MD seatbelt usage 100 % Skyla Mohamud exercise type cardiac rehab Skyla Mohamud physical exercise, frequency, days per week 3 /wk Skyla Mohamud alcohol use, average drinks per day social basis only Skyla Mohamud alcohol use no Skyla Mohamud caffeine use, averag e drinks per day yes Skyla Mohamud drug use none Skyla Mohamud passive cigarette sm flip exposure no Skyla Mohamud smoking, year quit 1984 Skyla Mobley [facility] number of years as a smoker 10 years or m ore Skyla Mohamud smoking, date started 1952 Skyla Mohamud smoking history, tot al pack/year 63 Skyla Mohamud smoking history, tot al pack/day 1 Skyla Mohamud cigarette use yes Skyla Mohamud smoking status Former smoker Skyla Mohamud smoking history, tot al pack/year 63 Ivon Martínez RN social history reviewed E&M revi ewed - no changes required Bello Granado MD seatbelt usage 100 % Jo Rahman exercise type cardiac rehab Jo Rahman physical exercise, frequency, days per week 3 /wk Jo Kiser alcohol use, average drinks per day social basis only Jo Kiser alcohol use no Jo Cardona tauruson caffeine use, averag e drinks per day yes Jo Kiser drug use none Jo Cardona mk passive cigarette sm flip exposure no Jo Kiser smoking, year quit 1983 Jo Rashel number of years as a smoker 10 years or m ore Jo Kiser smoking, date started 1952 MarybethAdalberto aakash Kiser smoking history, tot al pack/year 45 Jo Kiser smoking history, tot al pack/day 1 Jo Kiser cigarette use yes Jo byrddarwin smoking status Former smoker Jo Condeson social history reviewed E&M revi ewed - no changes required Bello Granado MD seatbelt usage 100 % Jo Que paula exercise type cardiac rehab Jo Rahman physical exercise, frequency, days per week 3 /wk Jo Kiser alcohol use, average drinks per day social basis only Jo Kiser alcohol use no Jo Cardona mk caffeine use, averag e drinks per day yes Jo Kiser drug use none Jo Cardona tauruson passive cigarette sm flip exposure no Jo Kiser smoking, year quit 1983 JoBlanche Longoenson number of years as a smoker 10 years or m ore Jo Kiser smoking, date started 1952 Cruz Kiser smoking history, tot al pack/year 46 Jo Kiser smoking history, tot al pack/day 1 Jo Kiser cigarette use yes Jo rao smoking status Former smoker Jo Hameed social history reviewed E&M revi ewed - no changes required Jared Simpson MD smoking, year quit 1984 Gilda Dudley Vicki cigarette use yes Gilda Sydnie smoking status Former smoker Gilda Rodríguezloraine wu social history reviewed E&M revi ewed - no changes required Jared Simpson MD seatbelt usage 100 % Gilda Danika gallo exercise type cardiac rehab Gilda Danika gallo physical exercise, frequency, days per week 3 /wk Gilda Sydnie alcohol use, average drinks per day social basis only Gilda Otoole alcohol use no Gilda Rodríguezann caffeine use, averag e drinks per day yes Gilda Otoole drug use none Gilda Rodríguezann passive cigarette sm flip exposure no Gilda Otoole smoking/tobacco cess ation, patient education and counseling No Gilda Rodríguezann smoking, year quit 1985 Gilda Dudley Vicki number of years as a smoker 10 years or m ore Gilda Rodríguezann smoking, date started 1952 Radha baron Otoole smoking history, tot al pack/year 46 Gilda Rodríguezann smoking history, tot al pack/day 1 Gilda Rodríguezann cigarette use yes Gilda Rodríguezann smoking status Former smoker Gilda Issa bryce social history reviewed E&M revi ewed - no changes required Bello Granado MD seatbelt usage 100 % Jo Rahman exercise type cardiac rehab Jo Rahman physical exercise, frequency, days per week 3 /wk Jo Kiser alcohol use, average drinks per day social basis only Jo Kiser alcohol use no Jo terrazas caffeine use, averag e drinks per day yes Jo Kiser drug use none Jo terrazas passive cigarette sm flip exposure no Jo Kiser smoking/tobacco cess ation, patient education and counseling No Jo Kiser smoking, year quit 1984 Jo Kiser number of years as a smoker 10 years or m ore Jo Kiser smoking, date started 1953 Cruz Kiser smoking history, tot al pack/year 46 Jo Kiser smoking history, tot al pack/day 1 Jo Rashel cigarette use yes Jo byrddarwin smoking status Former smoker Jo Fitch manda smoking/tobacco cess ation, patient education and counseling No Bello Granado MD social history reviewed E&M revi ewed - no changes required Bello Granado MD smoking status Former smoker Mario linares social history reviewed E&M revi ewed - no changes required Bello Granado MD smoking/tobacco cess ation, patient education and counseling No Bello Granado MD alcohol use no Bello Sheridan cigarette use yes Bello Graando MD smoking status Former smoker Bello gallo MD social history reviewed E&M revi ewed - no changes required Bello Granado MD seatbelt usage 100 % Gilda gallo exercise type cardiac rehab Gilda gallo physical exercise, frequency, days per week 3 /wk Gilda Otoole alcohol use, average drinks per day social basis only Gilda Otoole caffeine use, averag e drinks per day yes Gilda Otoole drug use none Gilda Otoole passive cigarette sm flip exposure no Gilda Otoole smoking/tobacco cess ation, patient education and counseling yes Gilda Otoole smoking, year quit 1984 Gilda Cohen number of years as a smoker 10 years or m ore Gilda Otoole smoking, date started 1953 Radha Otoole smoking history, tot al pack/year 46 Gilda Otoole smoking history, tot al pack/day 1 Gilda Otoole cigarette use yes Gilda Otoole smoking status Former smoker Gilda wu smoking, date started 1952 Madelyn Arriaza smoking, year quit 1984 Alanis Octavia le smoking history, tot al pack/day 1 Alanis Arriaza cigarette use yes Alanis Arriaza seatbelt usage 100 % Alanis clinton exercise type cardiac rehab Alanis clinton physical exercise, frequency, days per week 3 /wk Alanis Arriaza alcohol use, average drinks per day social basis only Alanis Arriaza caffeine use, averag e drinks per day yes Alanis Arriaza drug use none Alanis Arriaza passive cigarette sm flip exposure no Alanis Arriaza smoking/tobacco cess ation, patient education and counseling yes Alanis Arriaza smoking status Former smoker Alanis Kathy walker social history reviewed E&M reviewed Kurt Morales MD social history reviewed E&M reviewed Bello Granado MD seatbelt usage 100 % Bello Granado MD physical exercise, frequency, days per week 3 /wk Bello Granado MD exercise type cardiac rehab Bello Granado MD social history reviewed E&M reviewed Bello Granado MD social history E&M Ethnicity: Ca dayne Dudley arital Status: Sarah gardner with family/friends Bello Granado MD social history reviewed E&M reviewed Bello Granado MD passive cigarette sm flip exposure no Giovani Gao MD smoking/tobacco cess ation, patient education and counseling yes Giovani Gao MD social history reviewed E&M reviewed Alfonso Neumann RN social history reviewed E&M reviewed Alfonso Neumann RN smoking history, tot al pack/year 46 Jacqueline Salinas smoking, year quit 1984 Jacqueline brian smoking status former smoker Jacqueline luna social history reviewed E&M reviewed Alfonso Neumann RN social history reviewed E&M reviewed Alfonso Neumann RN drug use none Bello Sheridan social history E&M Marital Statu s: Sarah gardner alone E thnicity: Alfonso Neumann RN social history reviewed E&M reviewed Alfonso Neumann RN physical exercise, frequency, days per week yes [employer] caffeine use, averag e drinks per day yes [employer] alcohol use, average drinks per day social basis only [employer] number of years as a smoker 10 years or m ore [facility] Date Observation Value Provider HRA, CV Assess/Plan, Angina (inactive) Management Plan continue current therapy Bello Granado MD HRA, CV Assess/Plan, Angina (inactive) Management Plan continue current therapy Bello Granado MD HRA, CV Assess/Plan, Angina (inactive) Management Plan continue current therapy Bello Granado MD HRA, CV Assess/Plan, Angina (inactive) Management Plan continue current therapy Bello Granado MD HRA, CV Assess/Plan, Angina (inactive) Management Plan continue current therapy Bello Granado MD HRA, CV Assess/Plan, Angina (inactive) Management Plan continue current therapy Bello Granado MD HRA, CV Assess/Plan, Angina (inactive) Management Plan continue current therapy Bello Granado MD HRA, CV Assess/Plan, Angina (inactive) Management Plan continue current therapy Bello Granado MD HRA, CV Assess/Plan, Angina (inactive) Management Plan continue current therapy Bello Granado MD HRA, CV Assess/Plan, Angina (inactive) Management Plan continue current therapy Bello Granado MD MENTAL STATUS Date Observation Value Provider assessment of judgme nt and insight E&M Alert and oriented to time, place and person. Mood and affect are normal. Kurt Morales MD assessment of judgme nt and insight E&M Alert and oriented to time, place and person. Mood and affect are normal. Bello Granado MD assessment of judgme nt and insight E&M Alert and oriented to time, place and person. Mood and affect are normal. Bello Granado MD assessment of judgme nt and insight E&M Alert and oriented to time, place and person. Mood and affect are normal. Alfonso Neumann RN assessment of judgme nt and insight E&M Alert and oriented to time, place and person. Mood and affect are normal. Alfonso Neumann RN assessment of judgme nt and insight E&M Alert and oriented to time, place and person. Mood and affect are normal. Alfonso Neumann RN assessment of judgme nt and insight E&M Alert and oriented to time, place and person. Mood and affect are normal. Alfonso Neumann RN assessment of judgme nt and insight E&M Alert and oriented to time, place and person. Mood and affect are normal. Alfonso Neumann RN assessment of judgme nt and insight E&M Alert and oriented to time, place and person. Mood and affect are normal. Alfonso Neumann RN FAMILY HISTORY Family Member Condition Mother Family History of CV A or Stroke: INSURANCE PROVIDERS Payer name Policy type / Coverage type [place] red democrat ID [facility] Blue [facility] [id number] [place] MED[place] Medicare [id number] ADVANCE DIRECTIVES Name Date DISCUSSED - NO DECISION MADE TREATMENT PLAN Date Name Performer [id number],S, Bello Ramada n [id number],S, Bello Ramada n [place] [id number],S, Bello Ramada n [place] [id number],S, Bello Ramada n RI [id number],S, Bello Ramada n RI [id number],S, Bello Ramada n RI [id number],S, Bello Ramada n RI [id number],S, Bello Ramada n RI [id number],S, Bello Ramada n RI [id number],S, Bello Ramada n RI [id number],S, Bello Ramada n RI [id number],B, Bello Ramada n RI [id number],S, Bello Ramada n RI [id number],S, Bello Ramada n RI [id number],S, Bello Ramada n RI [id number],S, Bello Ramada n RI [id number],S, Bello Ramada n RI [id number],S, Bello Ramada n RI [id number],S, Bello Ramada n RI [id number],S, Bello Ramada n RI [id number],B, Bello Ramada n RI [id number],S, Bello gallo MD [id number],B, Bello gallo MD [id number],S, Bello gallo MD [id number],S, Bello gallo MD [id number],S, Bello gallo MD [id number],S, Bello gallo MD [id number],S, Bello gallo MD [id number],S, Bello gallo MD [id number],S, Bello gallo MD [id number],W,C ombination of COPD and possibly CHF. Will check ECHO and stress test. Needs inhalers. Bello Granado MD Take your medication s every day as directed. Failing to take your medication properly can have a negative impact on your treatment. Please monitor your blood pressure and heart rate regularly, at least weekly. Sit quietly for 5 minutes before taking your blood pressure and heart rate. Recommend a healthy diet plan which would include lots of vegetables and fruits, poultry and fish, low fat dairy products. It would include lower quantities of carbohydrates, like breads, potatoes, rice and pasta. Only small amounts of sweets should be included. Recommend a low salt, or no added salt diet. Exercise of at least 3 times a week is recommended. Even small amounts of exercise regularly can be less intimidating but still beneficial. Please contact us if you have new Chest Pain, Shortness of Breath, Palpitations, Dizziness, or Edema. [facility] Bello Granado MD Cardiology Bello Granado MD Cardiology Bello Granado MD Cardiology Bello Granado MD Cardiology Bello Granado MD Cardiology Bello Granado MD Cardiology Bello Granado MD Cardiology Bello Granado MD Cardiology Bello Granado MD Cardiology Bello Granado MD Cardiology Bello Granado MD Cardiology Bello Granado MD Cardiology Bello Granado MD Cardiology Bello Granado MD Cardiology Bello Granado MD Cardiology Bello Granado MD Cardiology Bello Granado MD Cardiology Bello Granado MD Cardiology Bello Granado MD Cardiology Bello Granado MD Electrophysiology Bello Granado MD Electrophysiology Bello Granado MD Electrophysiology Bello Granado MD Electrophysiology Bello Granado MD Electrophysiology Bello Granado MD Cardiology Bello Granado MD Cardiology Bello Granado MD Cardiology Bello Granado MD Cardiology Bello Granado MD Cardiology Bello Granado MD Cardiology:Combinati on of COPD and possibly CHF. Will check ECHO and stress test. Needs inhalers. Bello Granado MD Cardiology followup Bello gallo MD Cardiology followup Bello gallo MD Cardiology followup Bello gallo MD Cardiology followup Bello gallo MD Cardiology followup Bello gallo MD Cardiology follow up Bello castillo MD Cardiology follow up Bello castillo MD Cardiology follow up Bello castillo MD Cardiology follow up Bello castillo MD Cardiology follow up Bello castillo MD Cardiology follow up Bello castillo MD Cardiology follow up Bello castillo MD Cardiology follow up Bello castillo MD Cardiology follow up Bello castillo MD Cardiology follow up Bello castillo MD Cardiology follow up Bello castillo MD Cardiology follow up Bello Crystal castillo MD Cardiology follow up Bello castillo MD Cardiology Follow up Bellojyoti castillo MD Cardiology Follow up Bellojyoti castillo MD Cardiology Follow up Bello Crystal castillo MD Cardiology Follow up Bellojyoti castillo MD Cardiology Follow up :Improved a fter EP ablation Bello Granado MD Cardiology follow up Bello castillo MD Cardiology follow up Bello castillo MD Cardiology follow up Bello castillo MD Cardiology follow up Bello castillo MD Cardiology follow up Bello castillo MD Cardiology Bellojyoti Granado MD Cardiology Bellojyoti Granado MD Cardiology Bello Granado MD Cardiology Bello Granado MD Cardiology Bellojyoti Granado MD Cardiology Bello Granado MD Cardiology Bello Granado MD Cardiology Bello Granado MD Cardiology Bello Granado MD Cardiology Bellojyoti Granado MD Cardiology Follow up Bello castillo MD Cardiology Follow up Bello castillo MD Cardiology Follow up Bello castillo MD Cardiology Follow up Bello castillo MD Cardiology Follow up Bello castillo MD Cardiology Follow up Bello castillo MD Cardiology Bello Granado MD Cardiology Bello Granado MD Cardiology Bello Granado MD Cardiology Bellojyoti Granado MD Cardiology Bello Granado MD Cardiology Bello Granado MD Cardiology Bello Granado MD Cardiology Bello Granado MD Cardiology Bello Granado MD Cardiology Bello Granado MD Cardiology Bello Granado MD Cardiology:Has faile d simvastatin, atorvastatin and zetia. W ill start praluent. Bello Granado MD Hem/Onc:The patient prefers to follow with Dr. Velasco regarding her anemia. I will obtain records from Dr. Velasco clinic to evaluate her anemia. I advised her to keep her colonoscopy which is scheduled next month. She may follow up as needed. Future Orders: F ERRITIN (457) ... 05/13/2015 I FRANKIE AND TOTAL IRON BINDING CAPACITY (7573) ... 05/13/2015 R ETICULOCYTE COUNT, MANUAL (8699) ... 05/13/2015 C BC (INCLUDES DIFF/PLT) (6399) ... 05/13/2015 Jared Simpson MD New Patient:The brynn ent has iron deficiency anemia as evidenced by her low ferritin of 8. The patient has been started on ferrous sulfate by mouth twice daily. I advised the patient to take this on empty stomach with vitamin C or orange juice. She will be undergoing colonoscopy in November. She may require upper endoscopy as well as she is on chronic NSAIDs. I will see her back in 3 months to recheck CBC and iron stores. If she is unable to tolerate or does no increment iron stores with oral iron, I can provide IV iron. O rders: 9 9204 MOD Complex (CPT-92331) F ERRITIN (457) I FRANKIE AND TOTAL IRON BINDING CAPACITY (7573) C BC (INCLUDES DIFF/PLT) (6399) Jared Simpson MD fu:Will have her see hematology Bello Granado MD fu Bello Granado MD fu Bello Granado MD fu Bello Granado MD follow up Bello Granado MD follow up Bello Granado MD follow up Bello Granado MD follow up Bellojyoti Granado MD follow up Bello Vannesa BLACKMAN follow up Bellojyoti Granado MD follow up Bellojyoti Granado MD follow up Bello Vannesa BLACKMAN follow up Bello Vannesa BLACKMAN follow up Bellojyoti Granado MD follow up: O rders: C arotid Duplex Bilateral (CPT-66402) Bello Granado MD follow up Bellojyoti Granado MD follow up Bellojyoti Granado MD follow up Bellojyoti Granado MD follow up Bellojyoti Granado MD follow up Bellojyoti Granado MD f/u: H er updated medication list for this problem includes: Metoprolol Succinate 25 Mg Tb24 (Metoprolol succinate) ..... One tab. daily Gnp Calcium 600/d Tabs (Calcium carbonate-vitamin d tabs) ..... 1 tab daily Aspirin Ec 325 Mg Tbec (Aspirin) ..... 1 daily Bello Granado MD f/u: T he following medications were removed from the medication list: Effient 10 Mg Tabs (Prasugrel hcl) ..... One tablet daily Her updated medication list for this problem includes: Metoprolol Succinate 25 Mg Tb24 (Metoprolol succinate) ..... One tab. daily Aspirin Ec 325 Mg Tbec (Aspirin) ..... 1 daily Bello Granado MD f/u: T he following medications were removed from the medication list: Effient 10 Mg Tabs (Prasugrel hcl) ..... One tablet daily Her updated medication list for this problem includes: Metoprolol Succinate 25 Mg Tb24 (Metoprolol succinate) ..... One tab. daily Aspirin Ec 325 Mg Tbec (Aspirin) ..... 1 daily Bello Granado MD f/u: T he following medications were removed from the medication list: Effient 10 Mg Tabs (Prasugrel hcl) ..... One tablet daily Her updated medication list for this problem includes: Metoprolol Succinate 25 Mg Tb24 (Metoprolol succinate) ..... One tab. daily Aspirin Ec 325 Mg Tbec (Aspirin) ..... 1 daily Bello Granado MD f/u: H er updated medication list for this problem includes: Metoprolol Succinate 25 Mg Tb24 (Metoprolol succinate) ..... One tab. daily Gnp Calcium 600/d Tabs (Calcium carbonate-vitamin d tabs) ..... 1 tab daily Aspirin Ec 325 Mg Tbec (Aspirin) ..... 1 daily Bello Granado MD f/u: T he following medications were removed from the medication list: Simvastatin 20 Mg Tabs (Simvastatin) ..... Take one pill a day Effient 10 Mg Tabs (Prasugrel hcl) ..... One tablet daily Her updated medication list for this problem includes: Metoprolol Succinate 25 Mg Tb24 (Metoprolol succinate) ..... One tab. daily Aspirin Ec 325 Mg Tbec (Aspirin) ..... 1 daily Bello Granado MD Follow Up: H er updated medication list for this problem includes: Metoprolol Succinate 25 Mg Tb24 (Metoprolol succinate) ..... One tab. daily Gnp Calcium 600/d Tabs (Calcium carbonate-vitamin d tabs) ..... 1 tab daily Aspirin 81 Mg Tabs (Aspirin) ..... One tab. daily Orders: Rex AJ (*) Bello Granado MD Follow Up: H er updated medication list for this problem includes: Metoprolol Succinate 25 Mg Tb24 (Metoprolol succinate) ..... One tab. daily Aspirin 81 Mg Tabs (Aspirin) ..... One tab. daily Bello Granado MD Follow Up: T he following medications were removed from the medication list: Brilinta 90 Mg Tabs (Ticagrelor) ..... One tab. twice daily (replaces effient) Her updated medication list for this problem includes: Metoprolol Succinate 25 Mg Tb24 (Metoprolol succinate) ..... One tab. daily Aspirin 81 Mg Tabs (Aspirin) ..... One tab. daily Clopidogrel Bisulfate 75 Mg Tabs (Clopidogrel bisulfate) ..... 1 tab daily Bello Granado MD Follow Up: T he following medications were removed from the medication list: Brilinta 90 Mg Tabs (Ticagrelor) ..... One tab. twice daily (replaces effient) Her updated medication list for this problem includes: Metoprolol Succinate 25 Mg Tb24 (Metoprolol succinate) ..... One tab. daily Aspirin 81 Mg Tabs (Aspirin) ..... One tab. daily Clopidogrel Bisulfate 75 Mg Tabs (Clopidogrel bisulfate) ..... 1 tab daily Bello Granado MD Follow Up: T he following medications were removed from the medication list: Brilinta 90 Mg Tabs (Ticagrelor) ..... One tab. twice daily (replaces effient) Her updated medication list for this problem includes: Metoprolol Succinate 25 Mg Tb24 (Metoprolol succinate) ..... One tab. daily Aspirin 81 Mg Tabs (Aspirin) ..... One tab. daily Clopidogrel Bisulfate 75 Mg Tabs (Clopidogrel bisulfate) ..... 1 tab daily Bello Granado MD Follow Up: H er updated medication list for this problem includes: Metoprolol Succinate 25 Mg Tb24 (Metoprolol succinate) ..... One tab. daily Gnp Calcium 600/d Tabs (Calcium carbonate-vitamin d tabs) ..... 1 tab daily Aspirin 81 Mg Tabs (Aspirin) ..... One tab. daily Orders: Rex AJ (*) Bello Granado MD Follow Up: T he following medications were removed from the medication list: Brilinta 90 Mg Tabs (Ticagrelor) ..... One tab. twice daily (replaces effient) Her updated medication list for this problem includes: Metoprolol Succinate 25 Mg Tb24 (Metoprolol succinate) ..... One tab. daily Simvastatin 20 Mg Tabs (Simvastatin) ..... Take one pill a day Aspirin 81 Mg Tabs (Aspirin) ..... One tab. daily Clopidogrel Bisulfate 75 Mg Tabs (Clopidogrel bisulfate) ..... 1 tab daily Orders: Kelton MORALES (CPT-25560) Bello Granado MD : H er updated medication list for this problem includes: Metoprolol Succinate 25 Mg Tb24 (Metoprolol succinate) ..... One tab. daily Bello Granado MD : H er updated medication list for this problem includes: Prevacid Cpdr (Lansoprazole cpdr) ..... As directed Bello Granado MD : H er updated medication list for this problem includes: Metoprolol Succinate 25 Mg Tb24 (Metoprolol succinate) ..... One tab. daily Gnp Calcium 600/d Tabs (Calcium carbonate-vitamin d tabs) ..... 1 tab daily Bello Granado MD : T he following medications were removed from the medication list: Clopidogrel Bisulfate 75 Mg Tabs (Clopidogrel bisulfate) ..... Take 1 tablet daily by mouth Her updated medication list for this problem includes: Metoprolol Succinate 25 Mg Tb24 (Metoprolol succinate) ..... One tab. daily Effient 10 Mg Tabs (Prasugrel hcl) ..... One tablet daily Bello Granado MD : T he following medications were removed from the medication list: Clopidogrel Bisulfate 75 Mg Tabs (Clopidogrel bisulfate) ..... Take 1 tablet daily by mouth Her updated medication list for this problem includes: Metoprolol Succinate 25 Mg Tb24 (Metoprolol succinate) ..... One tab. daily Effient 10 Mg Tabs (Prasugrel hcl) ..... One tablet daily Bello Granado MD : T he following medications were removed from the medication list: Clopidogrel Bisulfate 75 Mg Tabs (Clopidogrel bisulfate) ..... Take 1 tablet daily by mouth Her updated medication list for this problem includes: Metoprolol Succinate 25 Mg Tb24 (Metoprolol succinate) ..... One tab. daily Effient 10 Mg Tabs (Prasugrel hcl) ..... One tablet daily Bello Granado MD : T he following medications were removed from the medication list: Clopidogrel Bisulfate 75 Mg Tabs (Clopidogrel bisulfate) ..... Take 1 tablet daily by mouth Her updated medication list for this problem includes: Metoprolol Succinate 25 Mg Tb24 (Metoprolol succinate) ..... One tab. daily Simvastatin 20 Mg Tabs (Simvastatin) ..... Take one pill a day Effient 10 Mg Tabs (Prasugrel hcl) ..... One tablet daily Bello Granado MD follow up: H er updated medication list for this problem includes: Prevacid Cpdr (Lansoprazole cpdr) ..... As directed BP today: 138/82 Prior BP: 119/66 (01/09/2011) D iscussed lifestyle modifications, diet, antacids/medications, and preventive measures. Handout provided. Bello Granado MD follow up: H er updated medication list for this problem includes: Metoprolol Tartrate 25 Mg Tabs (Metoprolol tartrate) BP today: 138/82 P rior BP: 119/66 (01/09/2011) Bello Granado MD follow up: H er updated medication list for this problem includes: Metoprolol Tartrate 25 Mg Tabs (Metoprolol tartrate) Gnp Calcium 600/d Tabs (Calcium carbonate-vitamin d tabs) ..... 1 tab daily BP today: 138/82 Prior BP: 119/66 (01/09/2011) N uclear Stress Findings: 1. Normal myocardial perfusion imaging after vasodilator stress with Regadenoson. 2 . Abnormal left ventricular systolic function with a calculated ejection fraction of 48%. 3 . No obvious significant scintigraphic evidence of myocardial ischemia or scar. GC (11/23/2010) E chocardiogram: Normal left ventricular systolic function. Normal left ventricular size. Normal left ventricular wall thickness. There is E to A wave reversal consistent with impaired LV relaxation. Normal E/E` 8.5. Left ventricular ejection fraction is estimated at 60%. No significant valvular abnormalities. - GCO (11/23/2010) Orders: E KG (CPT-07016) Bello Granado MD test results : H er updated medication list for this problem includes: Metoprolol Tartrate 25 Mg Tabs (Metoprolol tartrate) Gnp Calcium 600/d Tabs (Calcium carbonate-vitamin d tabs) ..... 1 tab daily BP today: 119/66 Prior BP: 118/66 (11/21/2010) N uclear Stress Findings: 1. Normal myocardial perfusion imaging after vasodilator stress with Regadenoson. 2 . Abnormal left ventricular systolic function with a calculated ejection fraction of 48%. 3 . No obvious significant scintigraphic evidence of myocardial ischemia or scar. GC (11/23/2010) E chocardiogram: Normal left ventricular systolic function. Normal left ventricular size. Normal left ventricular wall thickness. There is E to A wave reversal consistent with impaired LV relaxation. Normal E/E` 8.5. Left ventricular ejection fraction is estimated at 60%. No significant valvular abnormalities. - GCO (11/23/2010) Orders: S pirometry (CPT-85240) Bello Granado MD increasing sob : H er updated medication list for this problem includes: Prevacid Cpdr (Lansoprazole cpdr) ..... As directed BP today: 118/66 Prior BP: / () D iscussed lifestyle modifications, diet, antacids/medications, and preventive measures. Handout provided. Bello Granado MD increasing sob : H er updated medication list for this problem includes: Metoprolol Tartrate 25 Mg Tabs (Metoprolol tartrate) Orders: E KG (CPT-27202) BP today: 118/66 Bello Granado MD increasing sob : H er updated medication list for this problem includes: Metoprolol Tartrate 25 Mg Tabs (Metoprolol tartrate) Gnp Calcium 600/d Tabs (Calcium carbonate-vitamin d tabs) ..... 1 tab daily Orders: C omplete Echo (CPT-37917) S tress Test - Adenosine (49445) BP today: 118/66 Prior BP: / () Bello Granado MD Date Name LIPID PANEL Stress Regadenoson Complete Echo IRON AND TOTAL IRON BINDING CAPACITY FERRITIN CBC (INCLUDES DIFF/P LT) URINALYSIS, COMPLETE W/REFLEX TO CULTURE IRON AND TOTAL IRON BINDING CAPACITY FERRITIN CBC (INCLUDES DIFF/P LT) IRON AND TOTAL IRON BINDING CAPACITY FERRITIN CBC (INCLUDES DIFF/P LT) DLCO - 85783 FRC - 38090 FVC - 13824 VITAMIN B12 RETICULOCYTE COUNT IRON AND TOTAL IRON BINDING CAPACITY FOLATE, SERUM FERRITIN CBC (INCLUDES DIFF/P LT) STR - Adenosine Complete Echo LIPID PANEL COMPREHENSIVE METABO LIC PANEL W/EGFR COMPREHENSIVE METABO LIC PANEL W/EGFR LIPID PANEL LIPID PANEL COMPREHENSIVE METABO LIC PANEL W/EGFR LIPID PANEL Complete Echo STR - Adenosine CBC (INCLUDES DIFF/P LT) RETICULOCYTE COUNT, MANUAL IRON AND TOTAL IRON BINDING CAPACITY FERRITIN CBC (INCLUDES DIFF/P LT) IRON AND TOTAL IRON BINDING CAPACITY FERRITIN Carotid Duplex Bilat eral Holter Monitor 24 Hr ABLATION w/ Anesthes ia B TYPE NATRIURETIC P EPTIDE (BNP) Full PFT Carotid Duplex Bilat eral Complete Echo ABLATION w/ Anesthes ia Cardiac Cath - Left - WCHA Carotid Duplex Bilat eral Complete Echo Holter Monitor 24 Hr Spirometry Stress Test - [place]enos [place] Complete Echo HISTORY OF PROCEDURES Procedure Date Procedure Name Provider Procedure Notes S tatus Spirometry Bello Granado MD complete d FVC / MVV with bronchodilator - 81616 Bello Granado MD completed BLOOD COUNT HEMOGLOBIN Bello Granado MD completed FRC - 12923 Bello Granado MD complet ed SpO2 w/o 6min walk/titration Bello Granado MD completed SVC - 31769 Bello Granado MD complet ed DLCO - 33763 Bello Granado MD comple melyssa EKG Bello Granado MD complete d EKG Bello Granado MD complete d EKG Bello Granado MD complete d EKG Bello Granado MD complete d Injectafer 750mg Bello Granado MD co mpleted Therapeutic IV Infus ion up to 1 hour Bello Granado MD completed Injectafer 750mg Bello Granado MD co mpleted Therapeutic IV Infus ion up to 1 hour Bello Granado MD completed FVC / MVV with bronchodilator - 44271 Bello Granado MD completed BLOOD COUNT HEMOGLOBIN Bello Granado MD completed FRC - 99257 Bello Granado MD complet ed SpO2 w/o 6min walk/titration Bello Granado MD completed DLCO - 00013 Bello Granado MD comple melyssa EKG Bello Granado MD complete d EKG Bello Granado MD complete d SNOMED-CT: [id number] Current Medications Documented Bello Granado MD completed FVC / MVV with bronchodilator - 05597 Bello Granado MD completed BLOOD COUNT HEMOGLOBIN Bello Granado MD completed FRC - 00502 Bello Granado MD complet ed SpO2 - 19886 Bello Granado MD comple melyssa DLCO - 02039 Bello Granado MD comple melyssa SNOMED-CT: [id number] Current Medications Documented Bello Granado MD completed Feraheme 510mg Bello Granado MD comp leted Therapeutic IV Infus ion up to 1 hour Bello Granado MD completed Feraheme 510mg Bello Granado MD comp leted Therapeutic IV Infus ion up to 1 hour Bello Granado MD completed Stress EKG Conchita Castaneda MD completed Regadenoson, 4 units Bello Granado MD completed Cardiolite, 2 units Bello Granado MD completed SPECT Images Conchita Castaneda MD complet ed EKG Bello Granado MD complete d SNOMED-CT: [id number] Current Medications Documented Bello Granado MD completed SNOMED-CT: [id number] Current Medications Documented Bello Granado MD completed Stress EKG Conchita Castaneda MD completed Cardiolite, 2 units Bello Granado MD completed SPECT Images Conchita Castaneda MD complet ed SNOMED-CT: [id number] Current Medications Documented Bello Granado MD completed SNOMED-CT: [id number] Current Medications Documented Jared Simpson MD completed EKG Bello Granado MD complete d EKG Giovani gray MD completed EKG Giovani gray MD completed EKG Kurt Morales MD completed DLCO - 28662 Bello Granado MD comple melyssa FRC - 37286 Bello Granado MD complet ed FVC - 54792 Bello Granado MD complet ed EKG Bello Granado MD complete d Schedule Followup Giovani rivera MD completed EKG Giovani gray MD completed EKG Bello Granado MD complete d GOIVANNY Granado MD complete d
--- OUTSIDE RECORDS SUMMARY | 2024-05-01 13:46 | XMS_ITS | Referral Summary ---
Author Organization [facility] Address [address] [place] [address] Care Team Providers Care Land Clearer Name Role Phone Saurabh Valerio MD Primary Care Provider [phone] Encounters Date Type Department Care Team Description 02/20/2024 3:11 PM CDT - 02/20/2024 6:41 PM CDT Emergency [facility] Emergency Department [address] [place] [id number] Carlos Randolph MD Dementia, unspecified dementia severity, unspecified dementia type, unspecified whether behavioral, psychotic, or mood disturbance or anxiety (HCC) (Primary Dx) Discharge Disposition: Discharge to home or self care from Last 3 Months Allergies Active Allergy Reactions Criticality Noted Date Comments Adhesive Tape-Silicones Other (See comments) Reaction: OTHER REACTION, Ciprofloxacin Itching High Reaction: ITCHING Quinolones Unknown 02/20/2024 Sulfa (Sulfonamide Antibiotics) Itching Low Reaction: ITCHING Medications cholestyramine- aspartame (QUESTRAN LIGHT) 4 gram powder in packet Take 1 packet by mouth daily Active FLUoxetine (PROzac) 20 mg tablet Take 1 tablet (20 mg total) by mouth daily Active lansoprazole (PREVACID) 30 mg capsule Take 1 capsule (30 mg total) by mouth every other day Active raloxifene (EVISTA) 60 mg tablet Take 1 tablet (60 mg total) by mouth daily Active loperamide (IMODIUM) 2 mg capsule Take 1 capsule (2 mg total) by mouth every other day Active cholecalciferol (VITAMIN D-3) 50,000 unit capsule Take 1 capsule (50,000 Units total) by mouth once a week Active famotidine (PEPCID) 20 mg tablet Take 1 tablet (20 mg total) by mouth nightly Active acetaminophen (TYLENOL) 500 mg tablet Take 2 tablets (1,000 mg total) by mouth 2 (two) times a day as needed for pain Active Active Problems Problem Noted Date Diagnosed Date Dizziness 12/02/2023 Vertigo 11/30/2023 Hypertension 02/09/2023 Assessment & Plan (02/09/2023 2:02 AM CDT): Continue home regimen GERD (gastroesophageal reflux disease) Assessment & Plan (02/09/2023 2:03 AM CDT): Continue home regimen Closed nondisplaced fracture of fifth metatarsal bone of left foot, initial encounter 02/08/2023 Assessment & Plan (02/09/2023 2:02 AM CDT): Status post cast placement PTOT evaluation Orthopedic surgery consultation with outpatient evaluation to be coordinated Social service consult for placement Pain management p.r.n. Dyspnea on exertion 10/20/2022 Falls 10/20/2022 Pure hypercholesterolemia 10/20/2022 Elevated troponin 10/20/2022 Syncope and collapse 10/19/2022 Syncope, unspecified syncope type 10/18/2022 Social History Tobacco Use Types Packs/Day Years Used Date Smoking Tobacco: Never Smokeless Tobacco: Never Tobacco Cessation:Counseling Given: Not Answered [facility] Utilities Answer Date Recorded In the past 12 months has Zytoprotec, oil, or water voxapp threatened to shut off services in your home? No 12/02/2023 Social Connection and Isolat ion Panel [NHANES] Answer Date Recorded In a typical week, how many times do you talk on the phone with family, friends, or neighbors? More than three times a week 12/02/2023 How often do you get togethe r with friends or relatives? Once a week 12/02/2023 How often do you attend [facility] or uatsdin services? Never 12/02/2023 Do you belong to any clubs o r organizations such as hoahaoism groups, unions, fraternal or athletic groups, or school groups? No 12/02/2023 How often do you attend meet ings of the clubs or organizations you belong to? Never 12/02/2023 Are you , , di vorced, , never , or living with a partner? 12/02/2023 AUDIT-C Answer Date Recorded Q1: How often do you have a drink containing alcohol? Never 11/30/2023 Q2: How many drinks containi ng alcohol do you have on a typical day when you are drinking? Patient does not drink Q3: How often do you have si x or more drinks on one occasion? Never 11/30/2023 Overall Financial Resource Strain (CARDIA) Answe r Date Recorded How hard is it for you to pa y for the very basics like food, housing, medical care, and heating? Not hard at all 12/02/2023 Hunger Vital Sign Answer Date Recorded Within the past 12 months, y ou worried that your food would run out before you got the money to buy more. Never true 12/02/19 24 Within the past 12 months, t he food you bought just didn't last and you didn't have money to get more. Never true 12/02/2023 PRAPARE - Transportation Answer Date Re corded In the past 12 months, has l ack of transportation kept you from medical appointments or from getting medications? No 11/20 In the past 12 months, has l ack of transportation kept you from meetings, work, or from getting things needed for daily living? No 12/02/2023 Housing Stability Vital Sign Answer Dharmesh e [...] place to sleep or slept in a mcfp (including now)? No 02/11/2023 Housing Stability Vital Sign Answer Dharmesh e Recorded In the last 12 months, was t here a time when you were not able to pay the mortgage or rent on time? No 12/02/2023 In the past 12 months, how m any times have you moved where you were living? 0 12/02/2023 At any time in the past 12 m [facility], were you homeless or living in a mcfp (including now)? No 12/02/2023 Personal Safety Answer Date Recorded Have you ever been in or are you currently in a harmful physical or emotional relationship or is someone making you feel afraid or unsafe? 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 Gender Identity Not on file Sexual Orientation Not on file Last Filed Vital Signs Vital Sign Reading Time Taken Comments Blood Pressure 158/115 02/20/2024 6:00 PM CDT Pulse 99 02/20/2024 6:00 PM CDT Temperature 36.7 ??C (98 ??F) 02/20/2024 3:20 PM CDT Respiratory Rate 17 02/20/2024 6:00 PM CDT Oxygen Saturation 95% 02/20/2024 6:00 PM CDT Inhaled Oxygen Concentration - - Weight 67.3 kg (148 lb 5.9 oz) 02/20/2024 3:20 P M CDT Height 157.5 cm (5' 2.01 ) 02/20/2024 3:20 PM CD T Body Mass Index 27.13 02/20/2024 3:20 PM CDT Plan of Treatment Not on file Procedures Procedure Name Priority Date/Time Associated Diagnosis Comments CT HEAD WO CONTRAST ED 02/20/2024 5 :09 PM CDT XR CHEST 1 VIEW ED 02/20/2024 4:31 PM CDT URINALYSIS AND REFLEX TO MICROSCOPIC AND CULTURE STAT 02/20/2024 4:00 PM CDT ECG 12-LEAD STAT 02/20/2024 3:59 PM CDT EGFR STAT 02/20/2024 3:35 PM CDT DIFFERENTIAL AUTO STAT 02/20/2024 3:3 5 PM CDT COMPREHENSIVE METABOLIC PANEL STAT 02/20/2024 3:35 PM CDT CBC WITH AUTO DIFFERENTIAL STAT 02/20/2024 3:35 PM CDT from Last 3 Months Results * CT Head WO Contrast (02/20/2024 5:09 PM CDT) Anatomical Region Laterality Modality Head and Neck N/A Computed Tomogra phy 02/20/2024 5:23 PM CDT Narrative 02/20/2024 5:25 PM CDT EXAM DESCRIPTION: CT HEAD WO CONTRAST REASON FOR STUDY: Mental status change, unknown cause ?? Pt to ED via [facility] from [facility] Living for c/o increased fatigue and confusion x3 days. Pt has hx of dementia and is baseline AO to self per step daughter but over past 3 days has been more confused than usual. Pt has also been ?? sleeping more. EMS reports facility did a UA and it showed pt has UTI. Denies fever or any c/o pain. ? TECHNIQUE: Axial images acquired through the brain without intravenous contrast. ??Images stored on PACS. ?? Automated exposure control was used as a dose optimization technique for this examination. COMPARISON: 11/30/2023 FINDINGS: BRAIN: ?? No hemorrhage, edema or mass effect. No recent infarct. ?? Periventricular white matter hypoattenuation suggestive of chronic microvascular ischemic change. ??Global cerebral volume loss. EXTRA-AXIAL SPACES: ?? No fluid collections. No masses. CALVARIUM: ?? No fracture. SINUSES/MASTOIDS: ?? No fluid or mucosal thickening. ORBITS: ?? No significant abnormality. OTHER: ?? No other significant abnormality. IMPRESSION: No acute intracranial findings. THIS IS AN ELECTRONICALLY VERIFIED FINAL REPORT 02/20/2024 5:25 PM - Electronically signed by ??Jeramie Grove M.D. KR: NICOLE D: ??02/20/2024 5:25 PM T: ??02/20/2024 5:25 PM Report ID: [id number] Reading Location: ??[id number] Procedure Note Jeramie Grove MD - 02/20/2024 EXAM DESCRIPTION: CT HEAD WO CONTRAST REASON FOR STUDY: Mental status change, unknown cause Pt to ED via [facility] from [facility] Living for c/o increased fatigue and confusion x3 days. Pt has hx of dementia and is baseline AO to self per step daughter but over past 3 days has been more confused thanusual. Pt has also been sleeping more. EMS reports facility did a UA and itshowed pt has UTI. Denies fever or any c/o pain. TECHNIQUE: Axial images acquired through the brain without intravenous contrast. Images stored on PACS. Automated exposure control was used asa dose optimization technique for this examination. COMPARISON: 11/30/2023 FINDINGS: BRAIN: No hemorrhage, edema or mass effect. No recent infarct. Periventricular white matter hypoattenuation suggestive of chronic microvascular ischemic change. Global cerebral volume loss. EXTRA-AXIAL SPACES: No fluid collections. No masses. CALVARIUM: No fracture. SINUSES/MASTOIDS: No fluid or mucosal thickening. ORBITS: No significant abnormality. OTHER: No other significant abnormality. IMPRESSION: No acute intracranial findings. THIS IS AN ELECTRONICALLY VERIFIED FINAL REPORT 02/20/2024 5:25 PM - Electronically signed by Jeramie Grove M.D. KR: NICOLE Report ID: [id number] Reading Location: [place] [address] us Carlos Randolph MD IMG CT PROCEDURES Prema l Result * XR Chest 1 Vw Portable (02/20/2024 4:31 PM CDT) Anatomical Region Laterality Modality Body, Chest N/A Computed Radiogr aphy 02/20/2024 4:41 PM CDT Narrative 02/20/2024 4:41 PM CDT EXAM DESCRIPTION: XR CHEST 1 VIEW REASON FOR STUDY: dyspnea ?? Pt to ED via [facility] from [facility] Living for c/o increased fatigue and confusion x3 days. Pt has hx of dementia and is baseline AO to self per step daughter but over past 3 days has been more confused than usual. Pt has also been ?? sleeping more. EMS reports facility did a UA and it showed pt has UTI. Denies fever or any c/o pain. ? TECHNIQUE: 1 ??radiographic view(s) of the chest. COMPARISON: 10/18/2022 FINDINGS: LUNGS: ??No focal opacity, pleural effusion, or pneumothorax. ?? HEART/MEDIASTINUM: ??Cardiac silhouette normal in size. Mediastinal and hilar contours appear normal. LINES/TUBES: ??None. BONES: ??No acute osseous abnormality. IMPRESSION: No acute cardiopulmonary abnormality. THIS IS AN ELECTRONICALLY VERIFIED FINAL REPORT 02/20/2024 4:41 PM - Electronically signed by ??Jeramie Grove M.D. KR: NICOLE D: ??02/20/2024 4:41 PM T: ??02/20/2024 4:41 PM Report ID: [id number] Reading Location: ??[id number] Procedure Note Jeramie Grove MD - 02/20/2024 EXAM DESCRIPTION: XR CHEST 1 VIEW REASON FOR STUDY: dyspnea Pt to ED via [facility] from [facility] for c/o increased fatigue and confusion x3 days. Pt has hx of dementia and is baseline AO to self per step daughter but over past 3 days has been more confused thanusual. Pt has also been sleeping more. EMS reports facility did a UA and itshowed pt has UTI. Denies fever or any c/o pain. TECHNIQUE: 1 radiographic view(s) of the chest. COMPARISON: 10/18/2022 FINDINGS: LUNGS: No focal opacity, pleural effusion, or pneumothorax. HEART/MEDIASTINUM: Cardiac silhouette normal in size. Mediastinal andhilar contours appear normal. LINES/TUBES: None. BONES: No acute osseous abnormality. IMPRESSION: No acute cardiopulmonary abnormality. THIS IS AN ELECTRONICALLY VERIFIED FINAL REPORT 02/20/2024 4:41 PM - Electronically signed by Jeramie Grove M.D. KR: NICOLE Report ID: [id number] Reading Location: [id number] us Carlos Randolph MD IMG XR PROCEDURES Prema l Result * Urinalysis reflex to microscopic and culture Urine (02/20/2024 4:00 PM CDT) Color, ur Yellow Yellow Comment:Testing performed by : [address] [address] Clarity, ur Clear Clear KALANI Comment:Testing performed by : [address] [address] Specific gravity, ur 1.018 1.003 - 1.030 KALANI Comment:Testing performed by : [address] [address] pH, urine 5.0 KALANI Comment: Interpretive Data ? Urine pH is affected by diet, medications, systemic acid-base disturbances, and renal tubular function. ??pH may affect urinary stone formation. ??For example, urine pH below 6.0 may help reduce the tendency for calcium phosphate stones and pH greater than 6.0 may reduce the tendency for uric acid stone formation. Source: [place] [employer] Current Interpretive Data was last revised on 2017 Testing performed by: [address] [address] Protein, ur ql Negative Negative KALANI Comment:Testing performed by : [address] [address] Glucose, ur ql Negative Negative KALANI Comment:Testing performed by : [address] [address] Ketones, ur Negative Negative KALANI Comment:Testing performed by : [address] [address] Bilirubin, ur Negative Negative KALANI Comment:Testing performed by : [address] [address] Blood, ur Negative Negative KALANI Comment:Testing performed by : [address] [address] Urobilinogen, ur <2.0 <2.0 mg/dL KALANI Comment:Testing performed by : [address] [address] Nitrite, ur Negative Negative KALANI Comment:Testing performed by : [facility], [address] [place] [address]., [address] Leukocyte esterase, ur Negative Negative KALANI Comment:Testing performed by : [address] [address] UA reflex comment Reflex conditions for microscopic UA and culture not met. KALANI Comment:Testing performed by : [address] [address] Urine 02/20/2024 4:00 PM CDT 02/20/2024 4:15 PM CDT us Carlos Randolph MD LAB MICROBIOLOGY - GEN ERAL ORDERABLES Final Result Performing Organization Address City/[facility]/ZIP Co de Phone Number KALANI [address] [facility] [place] [address] * ECG 12 lead (02/20/2024 3:59 PM CDT) Ventricular Rate EKG/Min 86 BPM [facility] Atrial Rate 86 BPM [facility] NM-Interval (MSEC) 140 ms [facility] QRS-Interval (MSEC) 74 ms [facility] QT-Interval (MSEC) 372 ms [facility] QTc 445 ms [facility] P White 79 degrees [facility] R White 49 degrees [facility] T White 80 degrees [facility] Diagnosis Sinus rhythm with marked sinus arrhythmia with occasional Premature ventricular complexes Nonspecific T wave abnormality Abnormal ECG When compared with ECG of 20-OCT-2022 09:28, Premature ventricular complexes are now Present Confirmed by ANA ROSA MUNOZ M.D. ([id number]) on 02/20/2024 11:46:15 PM [facility] 02/20/2024 3:59 PM CDT 02/20/2024 11:46 PM CDT us Carlos Randolph MD ECG ORDERABLES Final Result Performing Organization Address City/[facility]/ZIP Co de Phone Number [facility] * (ABNORMAL) eGFR (02/20/2024 3:35 PM CDT) Pathologist [facility] eGFR 49(L) >=60 mL/min/1. 73 m2 Comment: Interpretive Data Reference [...] of Race in Diagnosing Kidney Disease, JASN 2020). The CKD-EPI equation should not be used for patients with unstable renal function and has not been validated in children and those over 70. Current interpretive data was last reviewed 2021. Testing performed by: [address] [address] Blood 02/20/2024 3:35 PM CDT 02/20/2024 3:38 PM CDT us Carlos Randolph MD LAB BLOOD ORDERABLES F inal Result [facility] [address] [facility] [place] [address] * Differential, auto (02/20/2024 3:35 PM CDT) [facility] Neutrophil abs 5.0 1.5 - 6.5 K/cumm Comment:Testing performed by : [address] [address] Imm gran abs 0.0 0.0 - 0.1 K/cumm [facility] Comment:Testing performed by : [address] [address] Lymphocyte abs 2.0 0.8 - 3.3 K/cumm [facility] Comment:Testing performed by : [address] [address] Monocyte abs 0.6 0.2 - 0.8 K/cumm [facility] Comment:Testing performed by : [address] [address] Eosinophil abs 0.2 0.0 - 0.5 K/cumm [facility] Comment:Testing performed by : [address] [address] Basophil abs 0.0 0.0 - 0.1 K/cumm [facility] Comment:Testing performed by : [address] [address] Neutrophil pct 63.6 % [facility] Comment: Interpretive Data Percent cell count reference ranges are not reported, since discordance with absolute values may lead to misinterpretation of CBC data. Current Interpretive Data was last revised on 2017. Testing performed by: [address] [address] Imm gran pct 0.1 % [facility] Comment: Interpretive Data Percent cell count reference ranges are not reported, since discordance with absolute values may lead to misinterpretation of CBC data. Current Interpretive Data was last revised on 2017. Testing performed by: [address] [address] Lymphocyte pct 25.8 % CERNER Comment: Interpretive Data Percent cell count reference ranges are not reported, since discordance with absolute values may lead to misinterpretation of CBC data. Current Interpretive Data was last revised on 2017. Testing performed by: [address] [address] Monocyte pct 7.7 % CERNER Comment: Interpretive Data Percent cell count reference ranges are not reported, since discordance with absolute values may lead to misinterpretation of CBC data. Current Interpretive Data was last revised on 2017. Testing performed by: [address] [address] Eosinophil pct 2.4 % KALANI HUSAIN Comment: Interpretive Data Percent cell count reference ranges are not reported, since discordance with absolute values may lead to misinterpretation of CBC data. Current Interpretive Data was last revised on 2017. Testing performed by: [address] [address] Basophil pct 0.4 % KALANI HUSAIN Comment: Interpretive Data Percent cell count reference ranges are not reported, since discordance with absolute values may lead to misinterpretation of CBC data. Current Interpretive Data was last revised on 2017. Testing performed by: [address] [address] Blood 02/20/2024 3:35 PM CDT 02/20/2024 3:38 PM CDT Carlos Randolph MD LAB BLOOD ORDERABLES F inal Result [facility] Department of Laboratories [place], [place] [id number] * (ABNORMAL) CBC with auto differential (02/20/2024 3:35 PM CDT) WBC 7.9 3.8 - 9.9 K/cumm Comment:Testing performed by : [address] [address] Hgb 13.0 11.9 - 15.5 g/dL KALANI HUSAIN Comment:Testing performed by : [address] [address] Hct 41.5 35.6 - 45.5 % KALANI HUSAIN Comment:Testing performed by : [address] [address] Plt 175 150 - 400 K/cumm KALANI HUASIN Comment:Testing performed by : [address] [address] MPV 10.9 9.1 - 12.3 fL KALANI HUSAIN Comment:Testing performed by : [address] [place]., [address] RBC 4.24 3.90 - 5.20 M/cumm KALANI Comment:Testing performed by : [address] [address] MCV 97.9(H) 81.3 - 96.4 fL KALANI HUSAIN Comment:Testing performed by : [address] [address] MCH 30.7 27.1 - 33.3 pg KALANI Comment:Testing performed by : [address], [address] MCHC 31.3(L) 32.3 - 35.7 g/dL KALANI Comment:Testing performed by : [address], [address] RDW CV 13.2 11.1 - 14.9 % KALANI Comment:Testing performed by : [address], [address] RDW SD 47.1 35.7 - 48.1 fL KALANI Comment:Testing performed by : [address], [address] NRBC abs 0.00 0.00 - 0.01 K/cumm KALANI Comment:Testing performed by : [address], [address] Blood 02/20/2024 3:35 PM CDT 02/20/2024 3:38 PM CDT us Carlos Randolph MD LAB BLOOD ORDERABLES F inal Result [facility] [address] [facility] [place] [address] * (ABNORMAL) Comprehensive metabolic panel (02/20/2024 3:35 PM CDT) Sodium 142 135 - 145 mmol/L Comment:Testing performed by : [address], [address] Potassium, pl 4.2 3.3 - 4.9 mmol/L KALANI Comment:Testing performed by : [address], [place]., [address] Chloride 105 97 - 110 mmol/L KALANI Comment:Testing performed by : [address], [place]., [address] CO2 29 22 - 32 mmol/L KALANI Comment:Testing performed by : [address], [place]., [address] Anion gap 8 2 - 15 mmol/L KALANI Comment:Testing performed by : [address], [place]., [address] BUN 19 6 - 25 mg/dL KALANI Comment:Testing performed by : [address], [place]., [address] Creatinine 1.10 0.60 - 1.10 mg/dL KALANI Comment:Testing performed by : [address], [place]., [address] Glucose 85 70 - 199 mg/dL KALANI Comment: Interpretive [...] was last revised 2022. Testing performed by: [address] [address] Calcium 9.2 8.5 - 10.3 mg/dL KALANI Comment:Testing performed by : [address] [address] Bilirubin, total 0.3 0.1 - 1.2 mg/dL KALANI Comment:Testing performed by : [address] [address] Protein, pl 6.4(L) 6.5 - 8.5 g/dL KALANI Comment:Testing performed by : [address] [address] Albumin 3.5 3.5 - 5.0 g/dL KALANI HUSAIN Comment:Testing performed by : [address] [address] Alk phos 83 40 - 130 Units/L KALANI HUSAIN Comment:Testing performed by : [address] [address] ALT 9 7 - 45 Units/L KALANI Comment:Testing performed by : [address] [address] AST 11 10 - 45 Units/L KALANI Comment:Testing performed by : [address] [address] Blood 02/20/2024 3:35 PM CDT 02/20/2024 3:38 PM CDT Carlos Randolph MD LAB BLOOD ORDERABLES F inal Result KALANI [address] [facility] [place] [address] from Last 3 Months Insurance [facility] MEDICARE [facility] Address: [address] [place] [address] MEDICARE Advance Directives For more information, please contact: [phone] Documents on File Type Date Recorded Patient Integrated Marketing Specialist Expl anation ADVANCE DIRECTIVE 12/04/2023 8:48 AM POA - Medical ADVANCE DIRECTIVE 02/12/2023 10:[address] - Phys Order for PT Preferences ADVANCE DIRECTIVE 02/12/2023 10:33 AM ADVANCE DIRECTIVE 10/22/2022 2:36 PM Power of Mems Device Scientist-Medical Advance Directives and Living Will 04/05/2021 9:27 PM Living Will Power of Mems Device Scientist 04/05/2021 9:22 PM * Full Code (Latest Code Status on File) Date Activated Date Inactivated Comments 11/30/2023 10:46 PM 12/03/2023 3:22 PM * Full Code Date Activated Date Inactivated Comments 02/09/2023 7:09 AM 02/11/2023 10:23 PM * Full Code Date Activated Date Inactivated Comments 10/18/2022 10:21 PM 10/21/2022 3:44 PM Care Teams Land Clearer Relationship Specialty Start Date End Date Saurabh Valerio MD [address] [facility] [address] [place] [address] PCP - General Internal Medicine 10/18/22
--- OUTSIDE RECORDS SUMMARY | 2024-05-01 13:46 | XMS_ITS | Clinical Summary ---
Author Organization [facility] Address [address] [place] [address] Care Team Providers Care Weigher And Crusher Name Role Phone Saruabh Valerio MD Primary Care Provider [phone]- [phone] Allergies Active Allergy Reactions Criticality Noted Date [...] collapse 10/19/2022 Syncope, unspecified syncope type 10/18/2022 Encounters Date Type Department Care Team Description 02/20/2024 3:11 PM CDT - 02/20/2024 6:41 PM CDT Emergency [facility] Emergency Department [address] [place] [address] Carlos Randolph MD Dementia, unspecified dementia severity, unspecified dementia type, unspecified whether behavioral, psychotic, or mood disturbance or anxiety (HCC) (Primary Dx) Discharge Disposition: Discharge to home or self care from Last 3 Months Surgical History Surgery Date Site/Laterality Comments CARDIAC CATHETERIZATION N/A Stents x2 Medical History Medical History Date Comments Dementia (HCC) Coronary artery disease Hypertension GERD (gastroesophageal reflux disease) Social History Tobacco Use Types Packs/Day Years Used Date Smoking Tobacco: Never Smokeless Tobacco: Never Tobacco Cessation:Counseling Given: Not Answered [facility] Utilities Answer Date Recorded In the past 12 months has [employer], gas, oil, or water company threatened to shut off services in your [...] week 12/02/2023 How often do you attend chur ch or mandaen services? Never 12/02/2023 Do you belong to any clubs o r organizations such as mandaen groups, unions, fraternal or athletic groups, or [...] place to sleep or slept in a long-term (including now)? No 02/11/2023 Housing Stability Vital [...] were you homeless or living in a long-term (including now)? No 12/02/2023 Personal Safety Answer Date Recorded Have you ever been in or are you currently in a harmful physical or emotional relationship or is someone making you feel afraid or unsafe? 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 Gender Identity Not on file Sexual Orientation Not on file Obstetrics History Last Filed Vital Signs Vital Sign Reading [...] 02/20/2024 3:20 PM CDT Plan of Treatment Health Maintenance Due Date Last Done Comments Depression Screening 1935 DTaP/Tdap/Td Vaccine (1 - Tdap) 1946 Hepatitis B Screening 1953 Well Visit 65+ 2001 Zoster Vaccine (2 of 3) 10/04/2016 08/09/2016 Pneumococcal vaccine 65+ (2 of 2 - PCV) 08/09/2017 08/09/2016 Covid-19 Vaccine (4 - season) 2023 03/25/2021, 07/15/2020, 06/17/2020 Influenza Vaccine (#1) 2023 , 02/14/2018, 12/21/2013 Fall Risk Assessment 12/02/2024 12/03/2023 Procedures Procedure Name Priority Date/Time Associated Diagnosis [...] unknown cause ?? Pt to ED via [facility] from [facility] for c/o increased fatigue and confusion x3 [...] 5:25 PM - Electronically signed by ??Jeramie RIVERA: NICOLE D: ??02/20/2024 5:25 PM T: ??02/20/2024 5:25 PM Report ID: [id number] Reading Location: ??[id number] Procedure Note Jeramie Grove MD - 02/20/2024 EXAM DESCRIPTION: CT HEAD WO CONTRAST REASON FOR STUDY: Mental status change, unknown cause Pt to ED via [facility] from [facility] Living for c/o increased fatigue [...] Jeramie Grove M.D. KR: NICOLE Report ID: [id number] Reading Location: [id number] us Carlos Randolph MD IMG CT PROCEDURES Prema l Result * XR Chest 1 Vw Portable (02/20/2024 4:31 PM CDT) Anatomical Region Laterality Modality Body, Chest N/A Computed Radiogr aphy 02/20/2024 4:41 PM CDT Narrative 02/20/2024 4:41 PM CDT EXAM DESCRIPTION: XR CHEST 1 VIEW REASON FOR STUDY: dyspnea ?? Pt to ED via [facility] from [facility] Living for c/o increased fatigue [...] PM T: ??02/20/2024 4:41 PM Report ID: [id number] Reading Location: ??[id number] Procedure Note Jeramie Grove MD - 02/20/2024 EXAM DESCRIPTION: XR CHEST 1 VIEW REASON FOR STUDY: dyspnea Pt to ED via [facility] from [facility] Living for c/o increased fatigue [...] Jeramie Grove M.D. KR: NICOLE Report ID: [id number] Reading Location: [place] [address] Carlos Randolph MD IMG XR PROCEDURES Prema l Result * Urinalysis reflex to microscopic and culture Urine (02/20/2024 4:00 PM CDT) Color, ur Yellow Yellow Comment:Testing performed by : [address] [address] Clarity, ur Clear Clear KALANI Comment:Testing performed by : [address] [address] Specific gravity, ur 1.018 1.003 - 1.030 KALANI Comment:Testing performed by : [address] [address] pH, urine 5.0 KALANI Comment: Interpretive Data ? Urine pH is affected by diet, medications, systemic acid-base disturbances, and renal tubular function. ??pH may affect urinary stone formation. ??For example, urine pH below 6.0 may help reduce the tendency for calcium phosphate stones and pH greater than 6.0 may reduce the tendency for uric acid stone formation. Source: [email or web address] Current Interpretive Data was last revised on 2017 Testing performed by: [address] [address] Protein, ur ql Negative Negative KALANI Comment:Testing performed by : [facility], [address] [place] [address], [place]., [address] Glucose, ur ql Negative Negative KALANI Comment:Testing performed by : [address], [place]., [address] Ketones, ur Negative Negative KALANI Comment:Testing performed by : [address], [place]., [address] Bilirubin, ur Negative Negative KALANI Comment:Testing performed by : [facility], [address] [place] [address], [place]., [address] Blood, ur Negative Negative KALANI Comment:Testing performed by : [address], [place]., [address] Urobilinogen, ur <2.0 <2.0 mg/dL KALANI Comment:Testing performed by : [address], [place]., [address] Nitrite, ur Negative Negative KALANI Comment:Testing performed by : [address], [place]., [address] Leukocyte esterase, ur Negative Negative KALANI Comment:Testing performed by : [address], [place]., [address] UA reflex comment Reflex conditions for microscopic UA and culture not met. KALANI Comment:Testing performed by : [facility], [address] [place] [address], [place]., [address] Urine 02/20/2024 4:00 PM CDT 02/20/2024 4:15 PM CDT us Carlos Randolph MD LAB MICROBIOLOGY - GEN ERAL ORDERABLES Final Result KALANI [address] [facility] Department [place] [address] * ECG 12 lead (02/20/2024 3:59 PM CDT) Ventricular Rate EKG/Min 86 BPM [facility] Atrial Rate 86 BPM [facility] MT-Interval (MSEC) 140 ms [facility] QRS-Interval (MSEC) 74 ms [facility] QT-Interval (MSEC) 372 ms [facility] QTc 445 ms [facility] P [employer] 79 degrees [facility] R [place] 49 degrees [facility] T [employer] 80 degrees [facility] Diagnosis Sinus rhythm with marked sinus arrhythmia with occasional Premature ventricular complexes Nonspecific T wave abnormality Abnormal ECG When compared with ECG of 20-OCT-2022 09:28, Premature ventricular complexes are now Present Confirmed by ANA ROSA MUNOZ M.D. ([id number]) on 02/20/2024 11:46:15 PM [facility] 02/20/2024 3:59 PM CDT 02/20/2024 11:46 PM CDT us Carlos Randolph MD ECG ORDERABLES Final Result [facility] * (ABNORMAL) eGFR (02/20/2024 3:35 PM CDT) eGFR 49(L) >=60 mL/min/1. 73 m2 Comment: [...] was last reviewed 2021. Testing performed by: [address] [address] Blood 02/20/2024 3:35 PM CDT 02/20/2024 3:38 PM CDT us Carlos Randolph MD LAB BLOOD ORDERABLES F inal Result [facility] [address] [facility] Department [place] [address] * Differential, auto (02/20/2024 3:35 PM CDT) Neutrophil abs 5.0 1.5 - 6.5 K/cumm Comment:Testing performed by : [address] [address] Imm gran abs 0.0 0.0 - 0.1 K/cumm KALANI Comment:Testing performed by : [address] [address] Lymphocyte abs 2.0 0.8 - 3.3 K/cumm KALANI Comment:Testing performed by : [address] [address] Monocyte abs 0.6 0.2 - 0.8 K/cumm KALANI Comment:Testing performed by : [address] [address] Eosinophil abs 0.2 0.0 - 0.5 K/cumm KALANI Comment:Testing performed by : [address] [address] Basophil abs 0.0 0.0 - 0.1 K/cumm KALANI Comment:Testing performed by : [address] [address] Neutrophil pct 63.6 % KALANI Comment: Interpretive Data Percent cell count reference ranges are not reported, since discordance with absolute values may lead to misinterpretation of CBC data. Current Interpretive Data was last revised on 2017. Testing performed by: [address] [address] Imm gran pct 0.1 % [facility] Comment: Interpretive Data Percent cell count reference ranges are not reported, since discordance with absolute values may lead to misinterpretation of CBC data. Current Interpretive Data was last revised on 2017. Testing performed by: [address] [address] Lymphocyte pct 25.8 % [facility] Comment: Interpretive Data Percent cell count reference ranges are not reported, since discordance with absolute values may lead to misinterpretation of CBC data. Current Interpretive Data was last revised on 2017. Testing performed by: [address] [address] Monocyte pct 7.7 % [facility] Comment: Interpretive Data Percent cell count reference ranges are not reported, since discordance with absolute values may lead to misinterpretation of CBC data. Current Interpretive Data was last revised on 2017. Testing performed by: [address] [address] Eosinophil pct 2.4 % [facility] Comment: Interpretive Data Percent cell count reference ranges are not reported, since discordance with absolute values may lead to misinterpretation of CBC data. Current Interpretive Data was last revised on 2017. Testing performed by: [address] [address] Basophil pct 0.4 % [facility] Comment: Interpretive Data Percent cell count reference ranges are not reported, since discordance with absolute values may lead to misinterpretation of CBC data. Current Interpretive Data was last revised on 2017. Testing performed by: [address] [address] Blood 02/20/2024 3:35 PM CDT 02/20/2024 3:38 PM CDT us Carlos Randolph MD LAB BLOOD ORDERABLES F inal Result [facility] [address] [facility] Department [place] [address] * (ABNORMAL) CBC with auto differential (02/20/2024 3:35 PM CDT) [facility] Signature WBC 7.9 3.8 - 9.9 K/cumm Comment:Testing performed by : [address], [address] Hgb 13.0 11.9 - 15.5 g/dL KALANI Comment:Testing performed by : [address] [address] Hct 41.5 35.6 - 45.5 % KALANI Comment:Testing performed by : [address] [address] Plt 175 150 - 400 K/cumm KALANI Comment:Testing performed by : [address], [address] MPV 10.9 9.1 - 12.3 fL KALANI Comment:Testing performed by : [address], [address] RBC 4.24 3.90 - 5.20 M/cumm KALANI Comment:Testing performed by : [address], [address] MCV 97.9(H) 81.3 - 96.4 fL KALANI Comment:Testing performed by : [address], [address] MCH 30.7 27.1 - 33.3 pg KALANI Comment:Testing performed by : [address], [address] MCHC 31.3(L) 32.3 - 35.7 g/dL KALANI Comment:Testing performed by : [address], [address] RDW CV 13.2 11.1 - 14.9 % KALANI Comment:Testing performed by : [address], [address] RDW SD 47.1 35.7 - 48.1 fL KALANI Comment:Testing performed by : [address], [address] NRBC abs 0.00 0.00 - 0.01 K/cumm KALANI Comment:Testing performed by : [address] [address] Blood 02/20/2024 3:35 PM CDT 02/20/2024 3:38 PM CDT us Carlos Randolph MD LAB BLOOD ORDERABLES F inal Result [facility] [address] [facility] Department [place] [address] * (ABNORMAL) Comprehensive metabolic panel (02/20/2024 3:35 PM CDT) Sodium 142 135 - 145 mmol/L Comment:Testing performed by : [address] [address] Potassium, pl 4.2 3.3 - 4.9 mmol/L KALANI Comment:Testing performed by : [address] [address] Chloride 105 97 - 110 mmol/L KALANI Comment:Testing performed by : [address] [address] CO2 29 22 - 32 mmol/L KALANI Comment:Testing performed by : [address] [address] Anion gap 8 2 - 15 mmol/L KALANI Comment:Testing performed by : [address] [address] BUN 19 6 - 25 mg/dL KALANI Comment:Testing performed by : [address] [address] Creatinine 1.10 0.60 - 1.10 mg/dL KALANI Comment:Testing performed by : [address] [address] Glucose 85 70 - 199 mg/dL KALANI [...] was last revised 2022. Testing performed by: [address] [address] Calcium 9.2 8.5 - 10.3 mg/dL KALANI Comment:Testing performed by : [address] [address] Bilirubin, total 0.3 0.1 - 1.2 mg/dL KALANI Comment:Testing performed by : [address] [address] Protein, pl 6.4(L) 6.5 - 8.5 g/dL KALANI Comment:Testing performed by : [address] [address] Albumin 3.5 3.5 - 5.0 g/dL KALANI Comment:Testing performed by : [address] [address] Alk phos 83 40 - 130 Units/L KALANI Comment:Testing performed by : [address] [address] ALT 9 7 - 45 Units/L KALANI Comment:Testing performed by : [address] [address] AST 11 10 - 45 Units/L KALANI Comment:Testing performed by : [address] [address] Blood 02/20/2024 3:35 PM CDT 02/20/2024 3:38 PM CDT us Carlos Randolph MD LAB BLOOD ORDERABLES F inal Result [facility] [address] [facility] Department [place] [address] from Last 3 Months Insurance [employer] [place] [address] Advance Directives For more information, please contact: [phone] Documents on File Type Date Recorded Patient Scorekeeper Expl anation ADVANCE DIRECTIVE 12/04/2023 8:48 AM POA - Medical ADVANCE DIRECTIVE 02/12/2023 10:[address] - Phys Order for PT Preferences ADVANCE DIRECTIVE 02/12/2023 10:33 AM ADVANCE DIRECTIVE 10/22/2022 2:36 PM Power of Manuscript Reader-Medical Advance Directives and Living Will 04/05/2021 9:27 PM Living Will Power of Manuscript Reader 04/05/2021 9:22 PM * Full Code (Latest Code Status on File) Date Activated Date Inactivated Comments 11/30/2023 10:46 PM 12/03/2023 3:22 PM * Full Code Date Activated Date Inactivated Comments 02/09/2023 7:09 AM 02/11/2023 10:23 PM * Full Code Date Activated Date Inactivated Comments 10/18/2022 10:21 PM 10/21/2022 3:44 PM Care Teams Weigher And Crusher Relationship Specialty Start Date End Date Saurabh Valerio MD [address] [place] [address] PCP - General Internal Medicine 10/18/22
--- OUTSIDE RECORDS SUMMARY | 2024-05-01 13:46 | XMS_ITS | Encounter Summary ---
Author Organization [facility] Address [address] [place] [address] Care Team Providers Care Rest Room Maid Name Role Phone Saurabh Valerio MD Primary Care Provider +- [phone] Encounter Details Date Type Department Care Team (Late st Contact Info) Description 02/12/2023 Telephone [facility] Medical Group Orthopedics and Sports Medicine [address] [place] [phone] [place] [address] [place] [address] [address] [place] [address] Social History Tobacco Use Types Packs/Day Years Used Date Smoking Tobacco: Never Smokeless Tobacco: Never [facility] Utilities Answer Date Recorded In the past 12 months has [employer], gas, oil, or water company threatened to [...] often do you attend chur ch or pentecostal services? Never 02/11/2023 Do you belong to any clubs o r organizations such as protestant groups, unions, fraternal or athletic groups, or [...] money to buy more. Never true 02/12/20 Within the past 12 months, t he [...] place to sleep or slept in a correction (including now)? No 02/11/2023 Personal Safety Answer Date Recorded Have you ever been in or are you currently in a harmful physical or emotional relationship or is someone making you feel afraid or unsafe? 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 Referral information given to new patient schedulers. Facility will be contacted to schedule once JAW advises when patient needs to be seen for Foot fracture ER follow up. * Telephone Encounter - Emily Tinsley - 02/12/2023 10:18 AM CDT Jaw Needs to know when patient needs her next follow up appointment here so they can schedule it documented in this encounter Plan of Treatment Not on file documented as of this encounter Visit Diagnoses Not on filedocumented in this encounter Care Teams Rest Room Maid Relationship Specialty Start Date End Date Saurabh Valerio MD [address] [facility] [address] [address] PCP - General Internal Medicine 10/18/22 documented as of this encounter
--- OUTSIDE RECORDS SUMMARY | 2024-05-01 13:46 | XMS_ITS | Encounter Summary ---
Author Organization [facility] Healthcare Address [address] [place] [address] Care Team Providers Care Piano Builder Name Role Phone Saurabh Valerio MD Primary Care Provider [phone] Reason for Visit * Reason Comments Fall Back Pain * Auth/Cert (Routine) Specialty Diagnoses / Procedures Referred By Contac t Referred To Contact Diagnoses Vertigo Fall, initial encounter Acute nonintractable headache, unspecified headache type Acute midline low back pain without sciatica Procedures na Referral ID Status Reason Start Date Expiration Date Visits Re quested Visits Authorized [id number] 1 1 Encounter Details Date Type Department Care Team (Latest Contact Info) Description 11/30/2023 6:27 PM CDT - 12/03/2023 11:17 AM CDT Hospital Encounter [facility] 5 Med Surg [facility] [place] [address] Yahir Pickett DO [facility] [place] [address] Jann Osei [place] [address] [place] [address] [place] [address] Kendra Puentes MD [facility] [address] Fall, initial encounter (Primary Dx); Acute midline low back pain without sciatica; Acute nonintractable headache, unspecified headache type Discharge Disposition: Discharge to skilled nursing facility Social History Tobacco Use Types Packs/Day Years Used Date Smoking Tobacco: Never Smokeless Tobacco: Never [facility] Utilities Answer Date Recorded In the past 12 months has th e electric, gas, oil, or water company threatened [...] often do you attend chur ch or rastafarian services? Never 12/02/2023 Do you belong to any clubs o r organizations such as congregational groups, unions, fraternal or athletic groups, or [...] any time in the past 12 m [facility], were you homeless or living in a long-term (including now)? No 12/02/2023 Personal Safety Answer Date Recorded Have you ever been in or are you currently in a harmful physical or emotional relationship or is someone making you feel afraid or unsafe? 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 Gender Identity Not on file Sexual Orientation Not on file documented as of this encounter Last Filed Vital Signs Vital Sign Reading Time Taken Comments Blood Pressure 141/76 12/03/2023 7:15 AM CDT Pulse 84 12/03/2023 7:15 AM CDT Temperature 36.6 ??C (97.9 ??F) 12/03/2023 7:15 AM CD T Respiratory Rate 18 12/03/2023 7:15 AM CDT Oxygen Saturation 94% 12/03/2023 7:15 AM CDT Inhaled Oxygen Concentration - - Weight 64.5 kg (142 lb 4.8 oz) 11/30/2023 11:41 PM CDT Height 157.5 cm (5' 2 ) 11/30/2023 11:41 PM CDT Body Mass Index 26.03 11/30/2023 11:41 PM CDT documented in this encounter Discharge Summaries * Kendra Puentes MD - 12/02/2023 3:05 PM CDT Inpatient Discharge Summary Patient Name - Emerald Myers Patient Age - 88 yrs Patient - [id number] [facility] - [id number] Document Creation Date: 12/02/2023 Admitting Provider, : Jann Oesi MD Discharge Provider, MD: Kendra Puentes MD Primary Care Physician at Discharge: Saurabh Valerio MD [phone] Admission Date: 11/30/2023 Discharge Date/time: 12/02/2023 Admission Location: [facility] LOS - LOS: 0 days DETAILS OF HOSPITAL STAY Hospital Problems/Diagnoses Principal Problem: Vertigo Active Problems: Dizziness Reason for Hospitalization: Orthostatic hypotension Fall Hospital Course: Emerald is a pleasant 88-year-old female with past medical history of CAD, hypertension, GERD, syncope, anemia, COPD, PVCs, dementia presents to the hospital from [facility] with complaints of dizziness and headache with ground level fall. Patient states she was trying to sit on the bowel regime as she fell and hit her buttock. She denies any loss of consciousness. Patient states when she woke up the next morning she was unable to get out of bed due to dizziness every time she sat up she felt very dizzy. CT head without acute intracranial findings. Fractures noted. CT lumbar spine shows severe degenerative disc pathology. Multiple levels of canal and neuroforaminal narrowing. No fractures noted. Discussed CT findings with her daughter in-law Cassie and patient, both declinedfurther evaluation as she would not want surgical intervention any ways. Orthostatic vitals were measured she did have positive orthostatic hypotension blood pressure dropped from 141/62 to 111/56 upon standing from supine position she was given IV fluids. Her symptoms resolved. Repeated orthostatic vitals showing blood pressure of 128/69 to 109/63 upon standing from supine. Christophe hose or compression stockings was recommended for orthostatic hypotension. Recommend that she gets up slowly from supine and sitting position to upright. [place] salt intake. Patient is no longeron amlodipine and losartan. Lifestyle modifications discussed for orthostatic hypotension. Patient is discharged back to [facility]. PCP follow up in One-week. Schedule appt with supervisor grading given difficulty w central vision, and intermittent color change. Pt deny hallucinations. Pt had repatha listed as home med, however is not on med list from [facility], please discuss with PCP or medical information officer if pt has a medical information officer, if need to resume this medication. Discharge Details Physical Exam at Discharge: Discharge Condition: good Pulse: 76 Resp: 18 BP: 149/73 Temp: 36.9 ??C (98.4 ??F) Weight: 64.5 kg (142 lb 4.8 oz) Pertinent Exam Findings at Discharge: General Exam: In no acute distress Skin: Dry, Warm. ABSENT: Jaundice, Rash Head: Atraumatic, Normocephalic Neck: Supple Cardiovascular: Normal range, Regular rhythm, S1S2 normal. ABSENT: Edema Respiratory: CTA bilaterally, Effort normal ABSENT: Crackles, Rhonchi. Abdomen: Bowel sounds present, Soft. ABSENT: Mass, Tenderness, Distention Musculoskeletal/Extremities: Joints normal Neurological: Cranial nerves II-XII WNL. No nystagmous, bilateral LE strength in tack w hip flexion, abduction, adduction, ankle plantar flex/dorsiflexion. Pt sat up from supine for lung exam, w/o sign of dizziness or back pain Psychiatric: Affect appropriate, Alert Psychiatric - Orientation: Oriented to: Time, Place, Person Discharge Disposition: Discharge to home or self care Code Status at Discharge: Full Code Active Issues & Recommended Plan for Follow-up: pcp f/up 1 wk Allergies: Ciprofloxacin, Adhesive tape-silicones, and Sulfa (sulfonamide antibiotics) Discharge Medications: Your medication list ASK your doctor about these medications Instructions Last Dose Given Next Dose Due amLODIPine 10 mg tablet Commonly known as: NORVASC Take 1 tablet (10 mg total) by mouth daily ascorbic acid 500 mg tablet,chewable Commonly known as: VITAMIN C Take 1 tablet/chew tab (500 mg total) by mouth 2 (two) times a day calcium carbonate 1,500 mg (600 mg elemental) tablet Commonly known as: OS-JEROD Take 1 tablet (1,500 mg total) by mouth 2 (two) times a day cholestyramine-aspartame 4 gram powder in packet Commonly known as: QUESTRAN LIGHT Take 1 packet by mouth daily FLUoxetine 20 mg tablet Commonly known as: PROzac Take 1 tablet (20 mg total) by mouth daily hyoscyamine ER 0.375 mg 12 hr tablet Commonly known as: LEVBID Take 1 tablet (0.375 mg total) by mouth daily lansoprazole 30 mg capsule Commonly known as: PREVACID Take 1 capsule (30 mg total) by mouth every other day loperamide 2 mg capsule Commonly known as: IMODIUM Take 1 capsule (2 mg total) by mouth 4 (four) times a day as needed for diarrhea losartan 50 mg tablet Commonly known as: COZAAR Take 1 tablet (50 mg total) by mouth daily raloxifene 60 mg tablet Commonly known as: EVISTA Take 1 tablet (60 mg total) by mouth daily Repatha Syringe syringe syringe Generic drug: evolocumab Inject 1 mL (140 mg total) under the skin every 14 (fourteen) days On traMADoL 50 mg tablet Commonly known as: ULTRAM Take 1 tablet (50 mg total) by mouth every 8 (eight) hours as needed for pain Time Spent in Discharge Process: I have spent 38 minutes on discharge planning activities. Time spent was on Coordination of care, Follow up , Counselling with patient/family, discharge exam, parent/patient education, and PCP communication Test Results Pending at Discharge (If Blank, None Found): Pending Labs Order Current Status Thyroid Function [place] In process Operative Procedures Performed (If Blank, None Found): Outpatient Follow-Up: Contact Information for Follow-ups Saurabh Valerio MD Specialty: Internal Medicine Relationship: PCP - General [address] [place] [address] Next Steps: Schedule an appointment as soon as possible for a visit in 1 week(s) Please schedule an appointment with the following provider(s): Saurabh Valerio MD [address] [place] [address] Schedule an appointment as soon as possible for a visit in 1 week ANCILLARY INFORMATION Other Procedures & Diagnostic Tests: CT Lumbar Spine WO Contrast Result Date: 11/30/2023 EXAM DESCRIPTION: CT LUMBAR SPINE WO CONTRAST REASON FOR STUDY: fall with low back pain Pt arrives from [facility] with chief complaint of low back pain and headache after a ground level fall that occurred last night. Pt states that she was going to sit on the bed and missed the bed andfell onto her buttocks. States that she may have bumped her head. Denies any LOC. States she required assistance with help getting up off the floor after the fall. Family request patient be assessed in ER. Pt alert and oriented to person, self, and place upon arrival. Hx of dementia. Rating low back pain 5/10 pain 2/10. VSLucie. NOTE Chief Complaint Patient presents with Fall Back Pain HPI HPI Emerald Myers is a 88 y.o. female w/ PMHx including dementia, CAD, HTN, HLD, GERD, syncope, anemia, COPD, and PVCs presenting to the ED via EMS from [facility] w/ c/o dizziness and headache after a ground level fall last night. Pt is slightly confused on events but states she was trying to sit on the bed when she missed and fell on her buttocks on the floor. Pt states she did not hit anyth ing on the way down and denies LOC. States she required assistance getting off the floor after the fall. Pt reports she woke up this morning and was unable to get out of bed due to dizziness. She states at this time she is only dizzy if she moves her head in certain positions. She also reports thather head feels diffusely sore and different . Pt denies chest pain, SOB, fever, chills, cough, cold, ABD pain, and any other associated symptoms. Pt also reports low back pain that started 3x weeks ago when she got a new mattress. Pt states that she got new dentures put in 2x days ago. TECHNIQUE: Axial images acquired through the lumbar spine without intravenous contrast. Reconstructed coronal and sagittal MPR images reviewed. All images stored on PACS. Automated exposure control was used as adose optimization technique for this examination. COMPARISON: None FINDINGS: SEGMENTATION: No transitional anatomy. The lowest well-developed disc space is labeled L5-S1. ALIGNMENT: Normal. VERTEBRAE: Slight wedging of the anterior body of T11 is noted. This is of uncertain age. No fracture lines are identified. No retropulsion of fragments is seen. DISC HEIGHT: Vertebral disc narrowing is noted particularly at L1-L2 and L2-L3. Some marginal spurring is seen at these levels. HARDWARE: None in the spine. INDIVIDUAL DISC LEVELS: L1-2: Moderate to broad circumferential bulging is seen. The canalappears to be partially narrowed. Neural foraminal openings are partially narrowed by spurring and disc material. L2-3: Moderate circumferential bulging is seen. The canal is narrowed. Canal contentsare not well discerned. Facet arthropathy is seen. The neural foraminal openings are crowded particu larly on the right. L3-4: Moderate circumferential bulging is seen. Facet arthropathy is seen with hypertrophy. The canal appears to be partially narrowed. The neural foraminal openings are mildly narrowed. L4-5: Moderate circumferential bulging is seen. Bulky facet hypertrophy is noted. There appears to be a tight canal stenosis. Canal contents are not well delineated. The neural foraminal openings are partially crowded. L5-S1: Mild circumferential bulging is suspected. The canal is it least partially narrowed. The neural foraminal openings are partially narrowed VISUALIZED RIBS: No fractures. SOFT TISSUES: No significant or acute finding in adjacent soft tissues. OTHER: No other significant finding. 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 Multiple levels of significant canal and neural foraminal narrowing are suspected. However, canal contents are not well seen by CT. MRI would likely provide better evaluation. Slight loss of height of the anterior body of T11 is of uncertain age. No fracture lines are seen. No retropulsion of fragments is evident. Correlation with clinical symptoms is suggested. MRI could provide additional evaluation. THIS IS AN ELECTRONICALLY VERIFIED FINAL REPORT 11/30/2023 9:23 PM - Electronically signed by Jeramie Newberry M.D. KH: GUERO Report ID: [id number] Reading Location: [place] [address] CT Head WO Contrast Result Date: 11/30/2023 EXAM DESCRIPTION: CT HEAD WO CONTRAST REASON FOR STUDY: head trauma Pt arrives from [facility] with chief complaint of low back pain and headache after a ground level fall that occurred last night. Pt states that she was going to sit on the bed and missed the bed and fell onto her buttocks. States that she may have bumped her head. Denies any LOC. States she required assistance with help getting up off the floor after the fall. Family request patient be assessed in ER. Pt alert and oriented to person, self, and place upon arrival. Hx of dementia. Rating low back pain 5/10 pain 2/10. VSS. NOTE Chief Complaint Patient presents with Fall Back Pain HPI HPI Emerald Myers is a 88 y. o. female w/ PMHx including dementia, CAD, HTN, HLD, GERD, syncope, anemia, COPD, and PVCs presenting to the ED via EMS from [facility] w/ c/o dizziness and headache after a ground level fall last night. Pt is slightly confused on events but states she was trying to sit on the bed when she missed and fell on her buttocks on the floor. Pt states she did not hit anything on the way downand denies LOC. States she required assistance getting off the floor after the fall. Pt reports shewoke up this morning and was unable to get out of bed due to dizziness. She states at this time sheis only dizzy if she moves her head in certain positions. She also reports that her head feels diffusely sore and different . Pt denies chest pain, SOB, fever, chills, cough, cold, ABD pain, and anyother associated symptoms. Pt also reports low back pain that started 3x weeks ago when she got a new mattress. Pt states that she got new dentures put in 2x days ago. TECHNIQUE: Axial images acquired through the brain without intravenous contrast. Images stored on PACS. Automated exposure control was used as a dose optimization technique for this examination. COMPARISON: 02/17/2020 FINDINGS: BRAIN: No hemorrhage, edema or mass effect. No recent infarct. Patchy hypodensity of the cerebral whitematter suggests chronic small- vessel ischemic changes. Diffuse atrophy of the brain is noted. EXTRA-AXIAL SPACES: No fluid collections. No masses. CALVARIUM: No fracture. SINUSES/MASTOIDS: No fluid or mucosal thickening. ORBITS: No significant abnormality. OTHER: No other significant abnormality. IMPRESSION: No acute intracranial findings. Chronic changes are noted. THIS IS AN ELECTRONICALLY VERIFIED FINAL REPORT 11/30/2023 9:22 PM - Electronically signed by Jeramie Newberry M.D. KH:GUERO Report ID: [id number] Reading Location: [id number] Recent Labs: Recent Labs Lab Units 12/01/23 0519 11/30/23 1910 WBC K/cumm 9.3 12.2* HEMOGLOBIN g/dL 13.2 12.4 HEMATOCRIT % 40.0 39.0 PLATELETS K/cumm 262 245 Recent Labs Lab Units 12/01/23 0519 11/30/231909 WBC K/cumm 9.3 12.2* HEMOGLOBIN g/dL 13.2 12.4 HEMATOCRIT % 40.0 39.0 PLATELETS K/cumm 262 245 NEUTROS PCT % 62.7 75.2 LYMPHS PCT % 28.9 16.2 MONOS PCT % 5.4 6.7 EOS PCT % 2.5 1.3 Recent Labs Lab Units 12/01/23 0511/30/231909 SODIUM mmol/L 141 140 POTASSIUM PLASMA mmol/L 3.8 4.0 CHLORIDE mmol/L 105 105 CO2 mmol/L 25 25 BUN SERUM mg/dL 12 15 CREATININE mg/dL 0.80 1.00 [id number] mL/min/1.73 m2 71 55* GLUCOSE mg/dL 84 110 CALCIUM mg/dL 8.4* 8.1* ALBUMIN g/dL 3.2* 3.1* Recent Labs Lab Units 12/01/2351811/30/231909 SODIUM mmol/L 141 140 POTASSIUM PLASMA mmol/L 3.8 4.0 CHLORIDE mmol/L 105 105 CO2 mmol/L 25 25 ANIONGAP mmol/L 11 10 GLUCOSE mg/dL 84 110 BUN SERUM mg/dL 12 15 CREATININE mg/dL 0.80 1.00 CALCIUM mg/dL 8.4* 8.1* ALBUMIN g/dL 3.2* 3.1* ALK PHOS Units/L 80 83 ALT Units/L <5* 6* AST Units/L 11 11 BILIRUBIN TOTAL mg/dL 0.3 0.2 Recent Labs Lab Units 12/01/2351811/30/231909 ALK PHOS Units/L 80 83 BILIRUBIN TOTAL mg/dL 0.3 0.2 TOTAL PROTEIN g/dL 6.2* 5.8* ALT Units/L <5* 6* AST Units/L 11 11 Lab Results Component Value Date GLUCOSE 84 12/01/2023 GLUCOSE 110 11/30/2023 GLUCOSE 96 02/08/2023 Implant: Implants No active implants to display in this view. General Precautions (If Blank, None Found): Isolation Status: No active isolations Nutritional Status and in-house recommendations: Dietary Orders (From admission, onward) Start Ordered 11/30/23 592 Adult Diet Regular Diet effective now Question: (MHB/MHE) Diet type Answer: Regular 11/30/23 7486 Anticoagulation Indication: INR: No results found for requested labs within last 30 days. Warfarin Administrations (last 168 hours) None Oxygen Status: O2 Therapy for the past 12 hrs: O2 Therapy 12/02/23 1201 None (Room air) 12/02/23 0733 None (Room air) Wound Care Instructions Other Instructions Call provider for: Temperature -Temperature greater than 101 degrees F Call provider for: difficulty breathing or chest pain Call provider for: extreme fatigue Call provider for: hives Call provider for: persistent dizziness or light-headedness Call provider for: persistent nausea or vomiting Call provider for: redness, tenderness, or signs of infection (pain, swelling, redness, odor or green/yellow discharge around incision site) Call provider for: severe uncontrolled pain Call provider for: headache, visual disturbances, weakness and speech changes Special Instructions Please obtain compression stockings for orthostatic hypotension to prevent dizziness and falls. Active LDAs (If Blank, None Found): Patient Emergency Contact: Primary Emergency Contact: katharine engel Immunization Status at Discharge Immunization History Administered Date(s) Administered Moderna SARS-CoV-2 Monovalent Vaccination (12+ YRS) 06/17/2020, 07/15/2020, 03/25/2021 Kendra Puentes MD documented in this encounter Discharge Instructions * Discharge Instructions* Yahir Pickett DO - 11/30/2023 10:01 PM CDT Take tylenol as needed for low back pain and headache. * Attachments The following attachments cannot be sent through Care Everywhere. * Fall Prevention for Older Adults (Discharge Care) (Ugandan) * Acute Low Back Pain (Discharge Care) (Ugandan) documented in this encounter Medications at Time [...] tablet (60 mg total) by mouth daily ascorbic acid 500 mg tablet,chewable Take 1 [...] needed for diarrhea 12 capsule 04/06/2021 4 traMADoL (ULTRAM) 50 mg tablet Take 1 tablet (50 mg total) by mouth every 8 (eight) hours as needed for pain 20 tablet 02/11/2023 4 documented as of this encounter Discharge Disposition Disposition Code Departure Means Destination Comment s Discharge to skilled nursing facility [facility] documented in this encounter Progress Notes * Alvina Timmons, PT - 12/02/2023 1:09 PM CDT Physical Therapy 12/02/23 3715 General Chart Reviewed Yes Session Type Evaluation PT Received On 12/02/23 Safe Environment Arm band checked;Gait belt utilized for all out of bed mobility;Patient found in supine Subjective Agreeable to Therapy Subjective Comment States she has been very happy living at [facility]. Additional Pertinent History Dx: fall, dizziness Family/Caregiver Present No Physical Therapy-Patient Goal Return to [facility]. 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 Fall within the last 6 months Yes Fall within the last 6 months comment reason for admission Pain Assessment Pain Assessment Ibarra-Lee FACES Ibarra-Lee FACES Pain Rating 0 Cognition Orientation Oriented X4 (person, place, time, situation) Following Commands Follows all commands and directions without difficulty Compliance/Behavior Easy to engage Bed Mobility 1 Bed Mobility From 1 Supine Bed Mobility Type 1 To Bed Mobility to 1 Edge of bed Level of Assistance 1 Distant Supervision Transfer 1 Transfer From 1 Sit Transfer Type 1 To and from Transfer to 1 Stand Technique 1 Stand and step Transfer Device 1 Wheeled walker Transfer Level of Assistance 1 Standby Assist Ambulation 1 Distance (ft) 1 300 Surface 1 Level tile Device 1 Wheeled walker;No device Assistance 1 Standby Assist Ambulation Comments 1 did not like our walker; started w the walker, but then set it aside and walked w cga of 1. RUE Assessment RUE Assessment WFL LUE Assessment LUE Assessment WFL RLE Assessment RLE Assessment WFL LLE Assessment LLE Assessment WFL Safe Environment End of Therapy Session Safe Environment End of Therapy Session Patient left supine in bed;Bed alarm in place and activated;RN notified;Call light within reach;Overbed table within reach;Bed in lowest position with wheels locked;Bed rails up per protocol Assessment Prognosis Good Barriers to Discharge None Plan Plan Discharge;If this is the last note, consider this the discharge summary Recommendation/Plan PT Recommendation/Plan (S) Assisted Living Facility PT Frequency during current admission One time visit (Discharge from this service) PT - OK to Discharge Yes PT Evaluation Complete Yes Time Calculation Start Time 1309 Stop Time 1330 Time Calculation (min) 21 min * Fanny Garcia, OT - 12/02/2023 1:08 PM CDT Occupational Therapy 12/02/23 1308 General Chart Reviewed Yes Session Type Evaluation OT Received On 12/02/23 Safe Environment Arm band checked;Patient found in supine;Session completed bedside;Gait belt utilized for all out of bed mobility Subjective Agreeable to Therapy Subjective Comment Pt stated, I love it at [facility]; they take great care of me. Additional Pertinent History 88 y.o. female with history significant for dementia, CAD, HTN, HLD, GERD, syncope, anemia, COPD, and PVCs presenting with c/o dizziness and headache after a ground levelfall last night. Family/Caregiver Present No Occupational Therapy-Patient Goal return to [facility] Current Functional Status OT Functional Mobility Pt is lying in bed upon OT arrival. Pt indep with bed mobility. Pt transferssit>stand from bed and tolerates approx 200 ft functional mobility with SBA for safety using ww.Pt even more steady without use of ww. OT Self Care Pt reports indep with ADL routine. Pt takes herself to and from bathroom, transfers totoilet, and completes all aspects of toileting indep'ly. OT Cognition Pt alert and oriented to self/, place, and year. OT Communication Intact Precautions Precautions Bed/Chair Alarm;Fall risk;Safety Precaution Comments tele Home Living Type of Home Assisted Living Facility ([facility]) Home Access Level entry Bathroom Shower/Tub Walk-in shower with threshold Bathroom Toilet Raised Bathroom Equipment Grab bars in shower/tub;Shower chair;Grab bars around toilet;Non-slip surfaces Bathroom Accessibility Accessible via walker Home Mobility Equipment-Available 4-Wheeled walker Home Mobility Equipment-Currently Using 4-Wheeled walker Prior Function Level of [place] Independent with ADLs;Independent functional transfers;Independent with ambulation;Needs assistance with homemaking Lives With Alone Receives Help From Facility staff Driving No Mode of Transportation Driven by others ADL Assistance Independent Instrumental ADL (IADL) Assistance Needs assistance Fall within the last 6 months Yes Fall within the last 6 months comment 1 fall- Prior Function Comments Pt reports that facility staff assists with IADL's and medication mgmt. Pt uses rollator all time. ADL ADLS (WDL) WFL Pain Assessment Pain Assessment No/denies pain Activity Tolerance Endurance Endurance does not limit participation in activity Cognition Arousal/Alertness Alert Attention Span Attends with cues to redirect Memory Appears intact Current communication Appears Intact Orientation Oriented to person;Oriented to place;Oriented to situation (oriented to year) Following Commands Follows all commands and directions without difficulty Safety Judgment Good awareness of safety precautions Insight Decreased awareness of deficits Compliance/Behavior Easy to engage Motor Planning Motor Planning Appears intact Hand Function Coordination Functional Gross Grasp Functional Reach/Grasp RUE Reach WFL LUE Reach WFL RUE Assessment RUE Assessment WFL RUE Comments AROM against gravity, intact. 4/5 strength, grossly. LUE Assessment LUE Assessment WFL LUE Comments AROM against gravity, intact. 4/5 strength, grossly. Safe Environment End of Therapy Session Safe Environment End of Therapy Session RN notified;Call light within reach;Overbed table within reach;Bed in lowest position with wheels locked;Patient left supine in bed;Bed alarm in place and activated Assessment Prognosis Good Plan Plan (S) Discharge (Pt at baseline level. At this time, the patient has no skilled acute OT needs and will be discharged from this service. OT orders will be completed. If a change in functional status were to occur change in discharge plans occur, please re-order OT.) Recommendation/Plan OT Recommendation (S) Home with intermittent assist;Assisted Living Facility Patient at high risk for Injury due to reduced functional status OT Frequency during current admission One-time visit (Discharge from this service) OT Evaluation Complete Yes Time Calculation Start Time 1308 Stop Time 1326 Time Calculation (min) 18 min Senior Billing Consultant Services Utilized: NO Cotx with LPT Alvina for safety of patient and staff due to current diagnosis, medical status, and/or level of physical assist needed due to weakness or equipment management. * Kendra Puentes MD - 12/02/2023 8:35 AM CDT General Medicine Daily Progress SUBJECTIVE Chief complaint of fall back pain. Emerald Myers is a 88 y.o. year old female with history significant for dementia, CAD, HTN, HLD, GERD, syncope, anemia, COPD, and PVCs presenting to the ED via EMS from [facility] w/ c/o dizziness and headache after a ground level fall last night. Pt is slightly confused on events but states she was trying to sit on the bed when she missed and fell on her buttocks on the floor. Pt states she did not hit anything on the way down and denies LOC. States she required assistance getting off the floor after the fall. Pt reports she woke up this morning and was unable to get out of bed due to dizziness. She states at this time she is only dizzy if she moves her head in certain positions . She also reports that her head feels diffusely sore and different . Pt denies chest pain, SOB, fever, chills, cough, cold, ABD pain, and any other associated symptoms. Pt also reports low back pain that started 3x weeks ago when she got a new mattress. Pt states that she got new dentures put in 2x days ago. ED workup was significant for vertigo for which hospital medicine was consulted for admission and management. Interval History: Vss PT OT Pt here with family at bedside Difficult to get concrete answer Less dizzy today, has been voiding lots, Going to the commode No spinning sensation td No significant back pain currently, no numbness pain radiating down legs Able to void well Family stated they would not want any back surgery for pt, pt states the same Dementia for about a yr some days are better than others, 12/01 Positive orthostatic vitals yd Continued short run o f fluids Christophe hose ordered Repeat [place] vitals today PTOT to see Feeling better, less dizzy, ambulated yd Waiting for bfast OBJECTIVE Vitals: 24hr Min/Max: Temp Min: 36.5 ??C (97.7 ??F) Max: 37 ??C (98.6 ??F) Pulse Min: 78 Max: 95 BP Min: 96/70 Max: 143/66 Resp Min: 15 Max: 18 SpO2 Min: 94 % Max: 100 % Most Recent : Vitals: 12/02/23 0733 BP: 136/74 Pulse: 78 Resp: 18 Temp: 36.5 ??C (97.7 ??F) SpO2: 95% I/O last 2 completed shifts: In: - Out: 200 [Urine:200] No intake/output data recorded. Physical Exam: General Exam: In no acute distress Skin: Dry, Warm. ABSENT: Jaundice, Rash Head: Atraumatic, Normocephalic Neck: Supple Cardiovascular: Normal range, Regular rhythm, S1S2 normal. ABSENT: Edema Respiratory: CTA bilaterally, Effort normal ABSENT: Crackles, Rhonchi. Abdomen: Bowel sounds present, Soft. ABSENT: Mass, Tenderness, Distention Musculoskeletal/Extremities: Joints normal Neurological: Cranial nerves II-XII WNL. No nystagmous, bilateral LE strength in tack w hip flexion, abduction, adduction, ankle plantar flex/dorsiflexion. Pt sat up from supine for lung exam, w/o sign of dizziness or back pain Psychiatric: Affect appropriate, Alert Psychiatric - Orientation: Oriented to: Time, Place, Person Lab/Current Medication Review: No results found for this or any previous visit (from the past 24 hour(s)). CT Lumbar Spine WO Contrast Result Date: 11/30/2023 Narrative: EXAM DESCRIPTION: CT LUMBAR SPINE WO CONTRAST REASON FOR STUDY: fall with low back pain Pt arrives from [facility] with chief complaint of low back pain and headache after a ground level fall that occurred last night. Pt states that she was going to sit on the bed and missed the bed and fell onto her buttocks. States that she may have bumped her head. Denies any LOC. Statesshe required assistance with help getting up off the floor after the fall. Family request patient be assessed in ER. Pt alert and oriented to person, self, and place upon arrival. Hx of dementia. Rating low back pain 5/10 pain 2/10. VSS. NOTE Chief Complaint Patient presents with Fall Back Pain HPI HPI Emerald Myers is a 88 y.o. female w/ PMHx including dementia, CAD, HTN, HLD, GERD, syncope, anemia, COPD, and PVCs presenting to the ED via EMS from [facility] w/ c/o dizziness andheadache after a ground level fall last night. Pt is slightly confused on events but states she wastrying to sit on the bed when she missed and fell on her buttocks on the floor. Pt states she did not hit anything on the way down and denies LOC. States she required assistance getting off the floorafter the fall. Pt reports she woke up this morning and was unable to get out of bed due to dizziness. She states at this time she is only dizzy if she moves her head in certain positions. She also reports that her head feels diffusely sore and different . Pt denies chest pain, SOB, fever, chills, cough, cold, ABD pain, and any other associated symptoms. Pt also reports low back pain that started 3x weeks ago when she got a new mattress. Pt states that she got new dentures put in 2x days ago. TECHNIQUE: Axial images acquired through the lumbar spine without intravenous contrast. Reconstructed coronal and sagittal MPR images reviewed. All images stored on PACS. Automated exposure control was used as a dose optimization technique for this examination. COMPARISON: None FINDINGS: SEGMENTATION: No transitional anatomy. The lowest well-developed disc space is labeled L5-S1. ALIGNMENT: Normal. VERTEBRAE: Slight wedging of the anterior body of T11 is noted. This is of uncertain age. No fracture lines are identified. No retropulsion of fragments is seen. DISC HEIGHT: Vertebral disc narrowing is noted particularly at L1-L2 and L2-L3. Some marginal spurring is seen at these levels. HARDWARE: None in the spine. INDIVIDUAL DISC LEVELS: L1-2: Moderate to broad circumferential bulging is seen. The canal appears to be partially narrowed. Neural foraminal openings are partially narrowed by spurring and disc material. L2-3: Moderate circumferential bulging is seen. The canal is narrowed. Canal contents are not well discerned. Facet arthropathy is seen. The neural foraminal openings are crowded particularly on the right. L3-4: Moderate circumferential bulging is seen. Facet arthropathy isseen with hypertrophy. The canal appears to be partially narrowed. The neural foraminal openings are mildly narrowed. L4-5: Moderate circumferential bulging is seen. Bulky facet hypertrophy is noted.There appears to be a tight canal stenosis. Canal contents are not well delineated. The neural foraminal openings are partially crowded. L5-S1: Mild circumferential bulging is suspected. The canal isit least partially narrowed. The neural foraminal openings are partially narrowed VISUALIZED RIBS: No fractures. SOFT TISSUES: No significant or acute finding in adjacent soft tissues. OTHER: No other significant finding. 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 Multiple levels of significant canal and neural foraminal narrowing are suspected. However, canal contents are not well seen by CT. MRI would likely provide better evaluation. Slight loss of height of the anterior body of T11 is of uncertain age. No fracture lines are seen. No retropulsion of fragments is evident. Correlation with clinical symptoms is suggested. MRI could provide additional evaluation. THIS IS AN ELECTRONICALLY VERIFIED FINAL REPORT 11/30/2023 9:23 PM - Electronically signed by Jeramie Newberry M.D. KH: GUERO Report ID: [id number] Reading Location: [id number] CT Head WO Contrast Result Date: 11/30/2023 Narrative: EXAM DESCRIPTION: CT HEAD WO CONTRAST REASON FOR STUDY: head trauma Pt arrives from [facility] with chief complaint of low back pain and headache after a ground level fall thatoccurred last night. Pt states that she was going to sit on the bed and missed the bed and fell onto her buttocks. States that she may have bumped her head. Denies any LOC. States she required assistance with help getting up off the floor after the fall. Family request patient be assessed in ER. Ptalert and oriented to person, self, and place upon arrival. Hx of dementia. Rating low back pain 5/10 pain 2/10. VSS. MD NOTE Chief Complaint Patient presents with Fall Back Pain HPI HPI Emerald Myers is a 88 y.o. female w/ PMHx including dementia, CAD, HTN, HLD, GERD, syncope, anemia, COPD, and PVCs presenting to the ED via EMS from [facility] w/ c/o dizziness and headache after a ground level fall last night. Pt is slightly confused on events but states she was trying to sit on the bed when she missed and fell on her buttocks on the floor. Pt states she did not hit anything on the way down and denies LOC. States she required assistance getting off the floor after the fall. Pt reports she woke up this morning and was unable to get out of bed due to dizziness. She states at this time she is only dizzy if she moves her head in certain positions. She also reports that her headfeels diffusely sore and different . Pt denies chest pain, SOB, fever, chills, cough, cold, ABD pain, and any other associated symptoms. Pt also reports low back pain that started 3x weeks ago when she got a new mattress. Pt states that she got new dentures put in 2x days ago. TECHNIQUE: Axial images acquired through the brain without intravenous contrast. Images stored on PACS. Automated exposure control was used as a dose optimization technique for this examination. COMPARISON: 02/17/2020 FINDINGS: BRAIN: No hemorrhage, edema or mass effect. No recent infarct. Patchy hypodensity of the cerebral white matter suggests chronic small- vessel ischemic changes. Diffuse atrophy of the brain is noted. EXTRA-AXIAL SPACES: No fluid collections. No masses. CALVARIUM: No fracture. SINUSES/MASTOIDS:No fluid or mucosal thickening. ORBITS: No significant abnormality. OTHER: No other significant abnormality. IMPRESSION: No acute intracranial findings. Chronic changes are noted. THIS IS AN ELECTRONICALLY VERIFIED FINAL REPORT 11/30/2023 9:22 PM - Electronically signed by Jeramie Newberry M.D. KH: GUERO Report ID: [id number] Reading Location: [place] [id number] Current Facility-Administered Medications Medication Dose Route Frequency Provider Last Rate Last Admin acetaminophen (TYLENOL) tablet 650 mg 650 mg oral Q4H PRN Jann Osei MD Carrier Fluids for Secondary Infusion - 0.9% Sodium Chloride 30 mL intravenous PRN Jann Osei MD cholestyramine-aspartame (QUESTRAN LIGHT) 4 gram packet 1 packet 1 packet oral Daily Raisa Osei MD 1 packet at 12/02/23 0835 enoxaparin (LOVENOX) syringe 40 mg 40 mg subcutaneous Daily-2100 Jann Osei MD 40 mg at 12/01/23 2208 FLUoxetine (PROzac) tab/cap 20 mg 20 mg oral Daily Jann Osei MD 20 mg at 12/02/23 0835 meclizine (ANTIVERT) tablet 25 mg 25 mg oral BID PRN Jann Osei MD ondansetron ODT (ZOFRAN-ODT) disintegrating tablet 4 mg 4 mg oral Q6H PRN Jann Osei MD Or ondansetron (ZOFRAN) injection 4 mg 4 mg intravenous Q6H PRN Jann Osei MD polyethylene glycol (MIRALAX) packet 17 g 17 g oral Daily PRN Jann Osei MD ramelteon (ROZEREM) tablet 8 mg 8 mg oral Nightly PRN Jann Osei MD 8 mg at 12/01/23 2212 sodium chloride 0.9% flush 0.5-20 mL 0.5-20 mL intra-catheter Q8H [facility] Jann Osei MD10 mL at 12/01/23 1855 sodium chloride 0.9% flush 0.5-20 mL 0.5-20 mL intra-catheter PRN Jann Osei MD traMADoL (ULTRAM) tablet 50 mg 50 mg oral Q8H PRN Jann Osei MD A/P: MDM Principal Problem: Vertigo Resolved Problems: No resolved hospital problems. Vertigo w/mechanical fall Orthostatic hypotension Acute exacerbation of back pain Presents following a mechanical fall, reporting worsening of back pain. Found to have severe dizziness in the ED upon evaluation. Hemodynamically stable, lung grossly unremarkable with the exception of elevated WBC 12.2. Urinalysis unremarkable. CT head without contrast 11/30/2023 - No acute intracranial findings. Chronic changes are noted. CT lumbar spine without 11/30/2023 - Severe degenerative and disc pathology is seen. Multiple levels of significant canal and neural foraminal narrowing are suspected. However, canal contents are not well seen by CT. MRI would likely provide better evaluation. Slight loss of height of the anterior body of T11 is of uncertain age. No fracture lines are seen. No retropulsion of fragments is evident. Correlation with clinical symptoms is suggested. MRI could provide additional evaluation. Admit to inpatient Medicine under observation Supportive care with IV fluid hydration, antiemetics, pain management, fall precaution. PT/OT evaluation, patient may benefit from rehab placement. Monitor for fall. P.r.n. meclizine Orthostatic blood pressure- positive even w IVF, cont fluids another 500cc. Apply christophe hose. Reassess today Tele PVCs, NSR Medical comorbidities Hypertension/hyperlipidemia Dementia CAD/PVC COPD Syncope Continue home regimens, hold antihypertensives Voice recognition software [employer] was used dictate and transcribe this document. [employer] Worker variances may occur. Despite proofreading, typographical errors may occur. For patients or family members viewing this note through [employer]: This note was written as a communication tool between healthcare providers and may contain technical language, terminology and abbreviations that is difficult to interpret without advanced medical training. If you have questions or concerns regarding what is written in this note, please request to speak with the primary medical team taking care of you or your family member. Kendra Puentes MD 12/02/2023 8:35 AM * Kendra Puentes MD - 12/01/2023 8:50 AM CDT General Medicine Daily Progress SUBJECTIVE Chief complaint of fall back pain. Emerald Myers is a 88 y.o. year old female with history significant for dementia, CAD, HTN, HLD, GERD, syncope, anemia, COPD, and PVCs presenting to the ED via EMS from [facility] w/ c/o dizziness and headache after a ground level fall last night. Pt is slightly confused on events but states she was trying to sit on the bed when she missed and fell on her buttocks on the floor. Pt states she did not hit anything on the way down and denies LOC. States she required assistance getting off the floor after the fall. Pt reports she woke up this morning and was unable to get out of bed due to dizziness. She states at this time she is only dizzy if she moves her head in certain positions . She also reports that her head feels diffusely sore and different . Pt denies chest pain, SOB, fever, chills, cough, cold, ABD pain, and any other associated symptoms. Pt also reports low back pain that started 3x weeks ago when she got a new mattress. Pt states that she got new dentures put in 2x days ago. ED workup was significant for vertigo for which hospital medicine was consulted for admission and management. Interval History: Vss PT OT Pt here with family at bedside Difficult to get concrete answer Less dizzy today, has been voiding lots, Going to the commode No spinning sensation td No significant back pain currently, no numbness pain radiating down legs Able to void well Family stated they would not want any back surgery for pt, pt states the same Dementia for about a yr some days are better than others, OBJECTIVE Vitals: 24hr Min/Max: Temp Min: 36.4 ??C (97.5 ??F) Max: 36.9 ??C (98.4 ??F) Pulse Min: 74 Max: 86 BP Min: 109/74 Max: 145/67 Resp Min: 16 Max: 20 SpO2 Min: 94 % Max: 98 % Most Recent : Vitals: 12/01/23 0746 BP: 139/78 Pulse: 80 Resp: 18 Temp: 36.8 ??C (98.2 ??F) SpO2: 96% I/O last 2 completed shifts: In: 480 [I.V.:480] Out: 950 [Urine:950] No intake/output data recorded. Physical Exam: General Exam: In no acute distress Skin: Dry, Warm. ABSENT: Jaundice, Rash Head: Atraumatic, Normocephalic Neck: Supple Cardiovascular: Normal range, Regular rhythm, S1S2 normal. ABSENT: Edema Respiratory: CTA bilaterally, Effort normal ABSENT: Crackles, Rhonchi Abdomen: Bowel sounds present, Soft. ABSENT: Mass, Tenderness, Distention Musculoskeletal/Extremities: Joints normal Neurological: Cranial nerves II-XII WNL. No nystagmous, bilateral LE strength in tack w hip flexion, abduction, adduction, ankle plantar flex/dorsiflexion Psychiatric: Affect appropriate, Alert Psychiatric - Orientation: Oriented to: Time, Place, Person Lab/Current Medication Review: Recent Results (from the past 24 hour(s)) CBC with auto differential Collection Time: 11/30/23 7:10 PM Result Value Ref Range WBC 12.2 (H) 3.8 - 9.9 K/cumm Hgb 12.4 11.9 - 15.5 g/dL Hct 39.0 35.6 - 45.5 % Plt 245 150 - 400 K/cumm MPV 9.9 9.1 - 12.3 fL RBC 3.94 3.90 - 5.20 M/cumm MCV 99.0 (H) 81.3 - 96.4 fL MCH 31.5 27.1 - 33.3 pg MCHC 31.8 (L) 32.3 - 35.7 g/dL RDW CV 13.6 11.1 - 14.9 % RDW SD 50.3 (H) 35.7 - 48.1 fL NRBC abs 0.00 0.00 - 0.01 K/cumm Comprehensive metabolic panel Collection Time: 11/30/23 7:10 PM Result Value Ref Range Sodium 140 135 - 145 mmol/L Potassium, pl 4.0 3.3 - 4.9 mmol/L Chloride 105 97 - 110 mmol/L CO2 25 22 - 32 mmol/L Anion gap 10 2 - 15 mmol/L BUN 15 6 - 25 mg/dL Creatinine 1.00 0.60 - 1.10 mg/dL Glucose 110 70 - 199 mg/dL Calcium 8.1 (L) 8.5 - 10.3 mg/dL Bilirubin, total 0.2 0.1 - 1.2 mg/dL Protein, pl 5.8 (L) 6.5 - 8.5 g/dL Albumin 3.1 (L) 3.5 - 5.0 g/dL Alk phos 83 40 - 130 Units/L ALT 6 (L) 7 - 45 Units/L AST 11 10 - 45 Units/L Differential, auto Collection Time: 11/30/23 7:10 PM Result Value Ref Range Neutrophil abs 9.2 (H) 1.5 - 6.5 K/cumm Imm gran abs 0.1 0.0 - 0.1 K/cumm Lymphocyte abs 2.0 0.8 - 3.3 K/cumm Monocyte abs 0.8 0.2 - 0.8 K/cumm Eosinophil abs 0.2 0.0 - 0.5 K/cumm Basophil abs 0.0 0.0 - 0.1 K/cumm Neutrophil pct 75.2 % Imm gran pct 0.4 % Lymphocyte pct 16.2 % Monocyte pct 6.7 % Eosinophil pct 1.3 % Basophil pct 0.2 % eGFR Collection Time: 11/30/23 7:10 PM Result Value Ref Range eGFR 55 (L) >=60 mL/min/1.73 m2 Thyroid Function [place] Collection Time: 11/30/23 7:10 PM Result Value Ref Range TSH 3.10 0.30 - 4.20 mcIUnit/mL Urinalysis reflex to microscopic and culture Urine Collection Time: 11/30/23 8:48 PM Specimen: Urine Result Value Ref Range Color, ur Yellow Yellow Clarity, ur Clear Clear Specific gravity, ur 1.011 1.003 - 1.030 pH, urine 5.5 Protein, ur ql Negative Negative Glucose, ur ql Negative Negative Ketones, ur Negative Negative Bilirubin, ur Negative Negative Blood, ur Negative Negative Urobilinogen, ur <2.0 <2.0 mg/dL Nitrite, ur Negative Negative Leukocyte esterase, ur Negative Negative UA reflex comment Reflex conditions for microscopic UA and culture not met. Comprehensive metabolic panel Collection Time: 12/01/23 5:19 AM Result Value Ref Range Sodium 141 135 - 145 mmol/L Potassium, pl 3.8 3.3 - 4.9 mmol/L Chloride 105 97 - 110 mmol/L CO2 25 22 - 32 mmol/L Anion gap 11 2 - 15 mmol/L BUN 12 6 - 25 mg/dL Creatinine 0.80 0.60 - 1.10 mg/dL Glucose 84 70 - 199 mg/dL Calcium 8.4 (L) 8.5 - 10.3 mg/dL Bilirubin, total 0.3 0.1 - 1.2 mg/dL Protein, pl 6.2 (L) 6.5 - 8.5 g/dL Albumin 3.2 (L) 3.5 - 5.0 g/dL Alk phos 80 40 - 130 Units/L ALT <5 (L) 7 - 45 Units/L AST 11 10 - 45 Units/L CBC with auto differential Collection Time: 12/01/23 5:19 AM Result Value Ref Range WBC 9.3 3.8 - 9.9 K/cumm Hgb 13.2 11.9 - 15.5 g/dL Hct 40.0 35.6 - 45.5 % Plt 262 150 - 400 K/cumm MPV 9.9 9.1 - 12.3 fL RBC 4.13 3.90 - 5.20 M/cumm MCV 96.9 (H) 81.3 - 96.4 fL MCH 32.0 27.1 - 33.3 pg MCHC 33.0 32.3 - 35.7 g/dL RDW CV 13.7 11.1 - 14.9 % RDW SD 49.1 (H) 35.7 - 48.1 fL NRBC abs 0.00 0.00 - 0.01 K/cumm Differential, auto Collection Time: 12/01/23 5:19 AM Result Value Ref Range Neutrophil abs 5.8 1.5 - 6.5 K/cumm Imm gran abs 0.0 0.0 - 0.1 K/cumm Lymphocyte abs 2.7 0.8 - 3.3 K/cumm Monocyte abs 0.5 0.2 - 0.8 K/cumm Eosinophil abs 0.2 0.0 - 0.5 K/cumm Basophil abs 0.0 0.0 - 0.1 K/cumm Neutrophil pct 62.7 % Imm gran pct 0.2 % Lymphocyte pct 28.9 % Monocyte pct 5.4 % Eosinophil pct 2.5 % Basophil pct 0.3 % eGFR Collection Time: 12/01/23 5:19 AM Result Value Ref Range eGFR 71 >=60 mL/min/1.[address] Lumbar Spine WO Contrast Result Date: 11/30/2023 Narrative: EXAM DESCRIPTION: CT LUMBAR SPINE WO CONTRAST REASON FOR STUDY: fall with low back pain Pt arrives from [facility] with chief complaint of low back pain and headache after a ground level fall that occurred last night. Pt states that she was going to sit on the bed and missed the bed and fell onto her buttocks. States that she may have bumped her head. Denies any LOC. Statesshe required assistance with help getting up off the floor after the fall. Family request patient be assessed in ER. Pt alert and oriented to person, self, and place upon arrival. Hx of dementia. Rating low back pain 5/10 pain 2/10. VSS. NOTE Chief Complaint Patient presents with Fall Back Pain HPI HPI Emerald Myers is a 88 y.o. female w/ PMHx including dementia, CAD, HTN, HLD, GERD, syncope, anemia, COPD, and PVCs presenting to the ED via EMS from [facility] w/ c/o dizziness andheadache after a ground level fall last night. Pt is slightly confused on events but states she wastrying to sit on the bed when she missed and fell on her buttocks on the floor. Pt states she did not hit anything on the way down and denies LOC. States she required assistance getting off the floorafter the fall. Pt reports she woke up this morning and was unable to get out of bed due to dizziness. She states at this time she is only dizzy if she moves her head in certain positions. She also reports that her head feels diffusely sore and different . Pt denies chest pain, SOB, fever, chills, cough, cold, ABD pain, and any other associated symptoms. Pt also reports low back pain that started 3x weeks ago when she got a new mattress. Pt states that she got new dentures put in 2x days ago. TECHNIQUE: Axial images acquired through the lumbar spine without intravenous contrast. Reconstructed coronal and sagittal MPR images reviewed. All images stored on PACS. Automated exposure control was used as a dose optimization technique for this examination. COMPARISON: None FINDINGS: SEGMENTATION: No transitional anatomy. The lowest well-developed disc space is labeled L5-S1. ALIGNMENT: Normal. VERTEBRAE: Slight wedging of the anterior body of T11 is noted. This is of uncertain age. No fracture lines are identified. No retropulsion of fragments is seen. DISC HEIGHT: Vertebral disc narrowing is noted particularly at L1-L2 and L2-L3. Some marginal spurring is seen at these levels. HARDWARE: None in the spine. INDIVIDUAL DISC LEVELS: L1-2: Moderate to broad circumferential bulging is seen. The canal appears to be partially narrowed. Neural foraminal openings are partially narrowed by spurring and disc material. L2-3: Moderate circumferential bulging is seen. The canal is narrowed. Canal contents are not well discerned. Facet arthropathy is seen. The neural foraminal openings are crowded particularly on the right. L3-4: Moderate circumferential bulging is seen. Facet arthropathy isseen with hypertrophy. The canal appears to be partially narrowed. The neural foraminal openings are mildly narrowed. L4-5: Moderate circumferential bulging is seen. Bulky facet hypertrophy is noted.There appears to be a tight canal stenosis. Canal contents are not well delineated. The neural foraminal openings are partially crowded. L5-S1: Mild circumferential bulging is suspected. The canal isit least partially narrowed. The neural foraminal openings are partially narrowed VISUALIZED RIBS: No fractures. SOFT TISSUES: No significant or acute finding in adjacent soft tissues. OTHER: No other significant finding. 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 Multiple levels of significant canal and neural foraminal narrowing are suspected. However, canal contents are not well seen by CT. MRI would likely provide better evaluation. Slight loss of height of the anterior body of T11 is of uncertain age. No fracture lines are seen. No retropulsion of fragments is evident. Correlation with clinical symptoms is suggested. MRI could provide additional evaluation. THIS IS AN ELECTRONICALLY VERIFIED FINAL REPORT 11/30/2023 9:23 PM - Electronically signed by Jeramie Newberry M.D. KH: GUERO Report ID: [id number] Reading Location: [id number] CT Head WO Contrast Result Date: 11/30/2023 Narrative: EXAM DESCRIPTION: CT HEAD WO CONTRAST REASON FOR STUDY: head trauma Pt arrives from [facility] with chief complaint of low back pain and headache after a ground level fall thatoccurred last night. Pt states that she was going to sit on the bed and missed the bed and fell onto her buttocks. States that she may have bumped her head. Denies any LOC. States she required assistance with help getting up off the floor after the fall. Family request patient be assessed in ER. Ptalert and oriented to person, self, and place upon arrival. Hx of dementia. Rating low back pain 5/10 pain 2/10. VSS. NOTE Chief Complaint Patient presents with Fall Back Pain HPI HPI Emerald Myers is a 88 y.o. female w/ PMHx including dementia, CAD, HTN, HLD, GERD, syncope, anemia, COPD, and PVCs presenting to the ED via EMS from [facility] w/ c/o dizziness and headache after a ground level fall last night. Pt is slightly confused on events but states she was trying to sit on the bed when she missed and fell on her buttocks on the floor. Pt states she did not hit anything on the way down and denies LOC. States she required assistance getting off the floor after the fall. Pt reports she woke up this morning and was unable to get out of bed due to dizziness. She states at this time she is only dizzy if she moves her head in certain positions. She also reports that her headfeels diffusely sore and different . Pt denies chest pain, SOB, fever, chills, cough, cold, ABD pain, and any other associated symptoms. Pt also reports low back pain that started 3x weeks ago when she got a new mattress. Pt states that she got new dentures put in 2x days ago. TECHNIQUE: Axial images acquired through the brain without intravenous contrast. Images stored on PACS. Automated exposure control was used as a dose optimization technique for this examination. COMPARISON: 02/17/2020 FINDINGS: BRAIN: No hemorrhage, edema or mass effect. No recent infarct. Patchy hypodensity of the cerebral white matter suggests chronic small- vessel ischemic changes. Diffuse atrophy of the brain is noted. EXTRA-AXIAL SPACES: No fluid collections. No masses. CALVARIUM: No fracture. SINUSES/MASTOIDS:No fluid or mucosal thickening. ORBITS: No significant abnormality. OTHER: No other significant abnormality. IMPRESSION: No acute intracranial findings. Chronic changes are noted. THIS IS AN ELECTRONICALLY VERIFIED FINAL REPORT 11/30/2023 9:22 PM - Electronically signed by Jeramie Newberry M.D. KH: KH Report ID: [id number] Reading Location: [id number] Current Facility-Administered Medications Medication Dose Route Frequency Provider Last Rate Last Admin acetaminophen (TYLENOL) tablet 650 mg 650 mg oral Q4H PRN Jann Osei MD Carrier Fluids for Secondary Infusion - 0.9% Sodium Chloride 30 mL intravenous PRN Jann Osei MD cholestyramine-aspartame (QUESTRAN LIGHT) 4 gram packet 1 packet 1 packet oral Daily Raisa Osei MD enoxaparin (LOVENOX) syringe 40 mg 40 mg subcutaneous Daily-2100 Jann Osei MD FLUoxetine (PROzac) tab/cap 20 mg 20 mg oral Daily Jann Osei MD Lactated Ringer's (LR) infusion 75 mL/hr intravenous Continuous Jann Osei MD 75 mL/hr at 12/01/23 0300 75 mL/hr at 12/01/23 0300 meclizine (ANTIVERT) tablet 25 mg 25 mg oral BID PRN Jann Osei MD ondansetron ODT (ZOFRAN-ODT) disintegrating tablet 4 mg 4 mg oral Q6H PRN Jann Osei MD Or ondansetron (ZOFRAN) injection 4 mg 4 mg intravenous Q6H PRN Jann Osei MD polyethylene glycol (MIRALAX) packet 17 g 17 g oral Daily PRN Jann Osei MD ramelteon (ROZEREM) tablet 8 mg 8 mg oral Nightly PRN Jann Osei MD sodium chloride 0.9% flush 0.5-20 mL 0.5-20 mL intra-catheter Q8H [facility] Jann Osei MD10 mL at 11/30/23 2307 sodium chloride 0.9% flush 0.5-20 mL 0.5-20 mL intra-catheter PRN Jann Osei MD traMADoL (ULTRAM) tablet 50 mg 50 mg oral Q8H PRN Jann Osei MD A/P: MDM Principal Problem: Vertigo Resolved Problems: No resolved hospital problems. Vertigo w/mechanical fall Acute exacerbation of back pain Presents following a mechanical fall, reporting worsening of back pain. Found to have severe dizziness in the ED upon evaluation. Hemodynamically stable, lung grossly unremarkable with the exception of elevated WBC 12.2. Urinalysis unremarkable. CT head without contrast 11/30/2023 - No acute intracranial findings. Chronic changes are noted. CT lumbar spine without 11/30/2023 - Severe degenerative and disc pathology is seen. Multiple levels of significant canal and neural foraminal narrowing are suspected. However, canal contents are not well seen by CT. MRI would likely provide better evaluation. Slight loss of height of the anterior body of T11 is of uncertain age. No fracture lines are seen. No retropulsion of fragments is evident. Correlation with clinical symptomsis suggested. MRI could provide additional evaluation. Admit to inpatient Medicine under observation Supportive care with IV fluid hydration, antiemetics, pain management, fall precaution. PT/OT evaluation, patient may benefit from rehab placement. Monitor for fall. P.r.n. meclizine Orthostatic blood pressure- positive even w IVF, cont fluids another 500cc. Apply christophe hose. Reassess tomorrow am Tele PVCs, NSR Medical comorbidities Hypertension/hyperlipidemia Dementia CAD/PVC COPD Syncope Continue home regimens, hold antihypertensives Voice recognition software [employer] was used dictate and transcribe this document. Cold Storage Worker variances may occur. Despite proofreading, typographical errors may occur. For patients or family members viewing this note through [employer]: This note was written as a communication tool between healthcare providers and may contain technical language, terminology and abbreviations that is difficult to interpret without advanced medical training. If you have questions or concerns regarding what is written in this note, please request to speak with the primary medical team taking care of you or your family member. Kendra Puentes MD 12/01/2023 8:50 AM documented in this encounter H&P Notes * Jann Osei MD - 11/30/2023 10:28 PM CDT Images from the original note were not included. HOSPITAL MEDICINE HISTORY AND PHYSICAL Patient Identifiers: Emerald Myers 88 y.o.female : 1935 ED Bed Date/Time: 11/30/2023 6:27 PM Attending Physician: Jann Osei MD Patient Care Team: Saurabh Valerio MD as PCP - General (Internal Medicine) MDM ASSESSMENT/PLAN Emearld Myers is a 88 y.o. year old female chief complaint of Chief Complaint Patient presents with Fall Back Pain This case was directly dicussed with the EM provider/staff and work-up reviewed together and independently. I have reviewed prior EMR inpatient/outpatient documentation as unique sources of history and information. I will be starting observation status with anticipated length of stay less than two midnights. Vertigo w/mechanical fall Acute exacerbation of back pain Presents following a mechanical fall, reporting worsening of back pain. Found to have severe dizziness in the ED upon evaluation. Hemodynamically stable, lung grossly unremarkable with the exception of elevated WBC 12.2. Urinalysis unremarkable. CT head without contrast 11/30/2023 - No acute intracranial findings. Chronic changes are noted. CT lumbar spine without 11/30/2023 - Severe degenerative and disc pathology is seen. Multiple levels of significant canal and neural foraminal narrowing are suspected. However, canal contents are not well seen by CT. MRI would likely provide better evaluation. Slight loss of height of the anterior body of T11 is of uncertain age. No fracture lines are seen. No retropulsion of fragments is evident. Correlation with clinical symptoms is suggested. MRI could provide additional evaluation. Admit to inpatient Medicine under observation Supportive care with IV fluid hydration, antiemetics, pain management, fall precaution. PT/OT evaluation, patient may benefit from rehab placement. Monitor for fall. P.r.n. meclizine Orthostatic blood pressure Medical comorbidities Hypertension/hyperlipidemia Dementia CAD/PVC COPD Syncope Continue home regimens, hold antihypertensives I have reviewed the relevant elements of the check-list below with the team and addressed the issues pertinent DVT prophylaxis: Lovenox Class: Observation Code Status: Prior Medication Reconciliation Vasquez Catheter: N/A Isolation: N/A No diet orders on file Bowel regimen addressed HPI Chief Complaint Patient presents with Fall Back Pain History of Present Illness: Emerald Myers is a 88 y.o. year old female with history significant for dementia, CAD, HTN, HLD, GERD, syncope, anemia, COPD, and PVCs presenting to the ED via EMS from [facility] w/ c/o dizziness and headache after a ground level fall last night. Pt is slightly confused on events but states she was trying to sit on the bed when she missed and fell on her buttocks on the floor. Pt states she did not hit anything on the way down and denies LOC. States she required assistance getting off the floor after the fall. Pt reports she woke up this morning and was unable to get out of bed due to dizziness. She states at this time she is only dizzy if she moves her head in certain positions . She also reports that her head feels diffusely sore and different . Pt denies chest pain, SOB, fever, chills, cough, cold, ABD pain, and any other associated symptoms. Pt also reports low back pain that started 3x weeks ago when she got a new mattress. Pt states that she got new dentures put in 2x days ago. ED workup was significant for vertigo for which hospital medicine was consulted for admission and management. Review of Systems: Review of Systems Constitutional: Negative for activity change, diaphoresis and fever. HENT: Negative for congestion, rhinorrhea and sore throat. Eyes: Negative for pain and discharge. Respiratory: Negative for apnea, cough, chest tightness, shortness of breath and wheezing. Cardiovascular: Negative for chest pain, palpitations and leg swelling. Gastrointestinal: Negative for abdominal distention, abdominal pain, constipation, diarrhea, nauseaand vomiting. Genitourinary: Negative for dysuria, hematuria and urgency. Musculoskeletal: Negative for back pain, gait problem, neck pain and neck stiffness. Skin: Negative for color change, rash and wound. Neurological: Positive for dizziness, weakness and light-headedness. Negative for syncope, facial asymmetry, speech difficulty and headaches. Mechanical fall Psychiatric/Behavioral: Negative for confusion. Breast: Negative for tenderness. PAST MEDICAL, SURGICAL, SOCIAL, AND FAMILY HISTORY Prior Medical History Prior Surgical History Past Medical History: Diagnosis Date Coronary artery disease Dementia (HCC) GERD (gastroesophageal reflux disease) Hypertension Past Surgical History: Procedure Laterality Date CARDIAC CATHETERIZATION N/A Stents x2 Prior Family History Prior Social History No family history on file. Social History Tobacco Use Smoking status: Never Smokeless tobacco: Never Vaping Use Vaping status: Not on file Substance and Sexual Activity Alcohol use: Not on file Drug use: Yes Types: Tobacco, Alcohol Comment: (+) smoking stopped more than 30 years ago, (+) alcohol last drink more than 20 years ago,no drug history Sexual activity: Not on file MEDICATIONS HOME MEDICATIONS Prior to Admission medications Medication Sig Start [...] times a day as needed for diarrhea 04/06/21 Ran Tay DO losartan (COZAAR) 50 mg tablet Take 1 tablet (50 mg total) by mouth daily 10/22/22 11/21/22 Rosemary Espitia MD raloxifene (EVISTA) 60 mg tablet Take 1 tablet (60 mg total) by mouth daily Provider, MD Sonny traMADoL (ULTRAM) 50 mg tablet Take 1 tablet (50 mg total) by mouth every 8 (eight) hours as neededfor pain 02/11/23 Tiffani Royal MD Home Medications verified and updated by [employer]l Software Engineer: [] Yes, completed [] No, to be verified and completed ALLERGIES Allergies Allergen Reactions Ciprofloxacin Itching Reaction: ITCHING Adhesive Tape-Silicones Other (See comments) Reaction: OTHER REACTION, Sulfa (Sulfonamide Antibiotics) Itching Reaction: ITCHING EXAM PHYSICAL EXAM: VITALS INTAKE/OUTPUT Vitals: 11/30/23 2200 BP: 121/66 Pulse: 86 Resp: 16 Temp: SpO2: 94% Intake/Output Summary (Last 24 hours) at 11/30/20232227 Last data filed at 11/30/20232045 Gross per 24 hour Intake -- Output 250 ml Net -250 ml Physical Exam Vitals and nursing note reviewed. Constitutional: General: She is not in acute distress. Appearance: She is normal weight. She is ill-appearing. She is not toxic- appearing or diaphoretic. HENT: Head: Normocephalic and atraumatic. Mouth/Throat: Mouth: Mucous membranes are moist. Eyes: Extraocular Movements: Extraocular movements intact. Cardiovascular: Rate and Rhythm: Normal rate and regular rhythm. Heart sounds: Normal heart sounds. Pulmonary: Effort: Pulmonary effort is normal. Breath sounds: Normal breath sounds. No wheezing or rales. Abdominal: General: Bowel sounds are normal. There is no distension. Palpations: Abdomen is soft. There is no mass. Tenderness: There is no abdominal tenderness. There is no guarding or rebound. Musculoskeletal: General: No swelling or tenderness. Right lower leg: No edema. Left lower leg: No edema. Skin: General: Skin is warm and dry. Coloration: Skin is not jaundiced. Findings: No lesion or rash. Neurological: General: No focal deficit present. Mental Status: She is alert. Motor: Weakness present. Psychiatric: Mood and Affect: Mood normal. Behavior: Behavior normal. LABS/RADIOLOGY RESULTS Labs: Recent Results (from the past 48 hour(s)) CBC with auto differential Collection Time: 11/30/23 7:10 PM Result Value Ref Range WBC 12.2 (H) 3.8 - 9.9 K/cumm Hgb 12.4 11.9 - 15.5 g/dL Hct 39.0 35.6 - 45.5 % Plt 245 150 - 400 K/cumm MPV 9.9 9.1 - 12.3 fL RBC 3.94 3.90 - 5.20 M/cumm MCV 99.0 (H) 81.3 - 96.4 fL MCH 31.5 27.1 - 33.3 pg MCHC 31.8 (L) 32.3 - 35.7 g/dL RDW CV 13.6 11.1 - 14.9 % RDW SD 50.3 (H) 35.7 - 48.1 fL NRBC abs 0.00 0.00 - 0.01 K/cumm Comprehensive metabolic panel Collection Time: 11/30/23 7:10 PM Result Value Ref Range Sodium 140 135 - 145 mmol/L Potassium, pl 4.0 3.3 - 4.9 mmol/L Chloride 105 97 - 110 mmol/L CO2 25 22 - 32 mmol/L Anion gap 10 2 - 15 mmol/L BUN 15 6 - 25 mg/dL Creatinine 1.00 0.60 - 1.10 mg/dL Glucose 110 70 - 199 mg/dL Calcium 8.1 (L) 8.5 - 10.3 mg/dL Bilirubin, total 0.2 0.1 - 1.2 mg/dL Protein, pl 5.8 (L) 6.5 - 8.5 g/dL Albumin 3.1 (L) 3.5 - 5.0 g/dL Alk phos 83 40 - 130 Units/L ALT 6 (L) 7 - 45 Units/L AST 11 10 - 45 Units/L Differential, auto Collection Time: 11/30/23 7:10 PM Result Value Ref Range Neutrophil abs 9.2 (H) 1.5 - 6.5 K/cumm Imm gran abs 0.1 0.0 - 0.1 K/cumm Lymphocyte abs 2.0 0.8 - 3.3 K/cumm Monocyte abs 0.8 0.2 - 0.8 K/cumm Eosinophil abs 0.2 0.0 - 0.5 K/cumm Basophil abs 0.0 0.0 - 0.1 K/cumm Neutrophil pct 75.2 % Imm gran pct 0.4 % Lymphocyte pct 16.2 % Monocyte pct 6.7 % Eosinophil pct 1.3 % Basophil pct 0.2 % eGFR Collection Time: 11/30/23 7:10 PM Result Value Ref Range eGFR 55 (L) >=60 mL/min/1.73 m2 Urinalysis reflex to microscopic and culture Urine Collection Time: 11/30/23 8:48 PM Specimen: Urine Result Value Ref Range Color, ur Yellow Yellow Clarity, ur Clear Clear Specific gravity, ur 1.011 1.003 - 1.030 pH, urine 5.5 Protein, ur ql Negative Negative Glucose, ur ql Negative Negative Ketones, ur Negative Negative Bilirubin, ur Negative Negative Blood, ur Negative Negative Urobilinogen, ur <2.0 <2.0 mg/dL Nitrite, ur Negative Negative Leukocyte esterase, ur Negative Negative UA reflex comment Reflex conditions for microscopic UA and culture not met. Micro No results found for: URINECULTURE , BLOODCULT Imaging: CT Lumbar Spine WO Contrast Result Date: 11/30/2023 Narrative: EXAM DESCRIPTION: CT LUMBAR SPINE WO CONTRAST REASON FOR STUDY: fall with low back pain Pt arrives from [facility] with chief complaint of low back pain and headache after a ground level fall that occurred last night. Pt states that she was going to sit on the bed and missed the bed and fell onto her buttocks. States that she may have bumped her head. Denies any LOC. Statesshe required assistance with help getting up off the floor after the fall. Family request patient be assessed in ER. Pt alert and oriented to person, self, and place upon arrival. Hx of dementia. Rating low back pain 5/10 pain 2/10. VSS. NOTE Chief Complaint Patient presents with Fall Back Pain HPI HPI Emerald Myers is a 88 y.o. female w/ PMHx including dementia, CAD, HTN, HLD, GERD, syncope, anemia, COPD, and PVCs presenting to the ED via EMS from [facility] w/ c/o dizziness andheadache after a ground level fall last night. Pt is slightly confused on events but states she wastrying to sit on the bed when she missed and fell on her buttocks on the floor. Pt states she did not hit anything on the way down and denies LOC. States she required assistance getting off the floorafter the fall. Pt reports she woke up this morning and was unable to get out of bed due to dizziness. She states at this time she is only dizzy if she moves her head in certain positions. She also reports that her head feels diffusely sore and different . Pt denies chest pain, SOB, fever, chills, cough, cold, ABD pain, and any other associated symptoms. Pt also reports low back pain that started 3x weeks ago when she got a new mattress. Pt states that she got new dentures put in 2x days ago. TECHNIQUE: Axial images acquired through the lumbar spine without intravenous contrast. Reconstructed coronal and sagittal MPR images reviewed. All images stored on PACS. Automated exposure control was used as a dose optimization technique for this examination. COMPARISON: None FINDINGS: SEGMENTATION: No transitional anatomy. The lowest well-developed disc space is labeled L5-S1. ALIGNMENT: Normal. VERTEBRAE: Slight wedging of the anterior body of T11 is noted. This is of uncertain age. No fracture lines are identified. No retropulsion of fragments is seen. DISC HEIGHT: Vertebral disc narrowing is noted particularly at L1-L2 and L2-L3. Some marginal spurring is seen at these levels. HARDWARE: None in the spine. INDIVIDUAL DISC LEVELS: L1-2: Moderate to broad circumferential bulging is seen. The canal appears to be partially narrowed. Neural foraminal openings are partially narrowed by spurring and disc material. L2-3: Moderate circumferential bulging is seen. The canal is narrowed. Canal contents are not well discerned. Facet arthropathy is seen. The neural foraminal openings are crowded particularly on the right. L3-4: Moderate circumferential bulging is seen. Facet arthropathy isseen with hypertrophy. The canal appears to be partially narrowed. The neural foraminal openings are mildly narrowed. L4-5: Moderate circumferential bulging is seen. Bulky facet hypertrophy is noted.There appears to be a tight canal stenosis. Canal contents are not well delineated. The neural foraminal openings are partially crowded. L5-S1: Mild circumferential bulging is suspected. The canal isit least partially narrowed. The neural foraminal openings are partially narrowed VISUALIZED RIBS: No fractures. SOFT TISSUES: No significant or acute finding in adjacent soft tissues. OTHER: No other significant finding. 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 Multiple levels of significant canal and neural foraminal narrowing are suspected. However, canal contents are not well seen by CT. MRI would likely provide better evaluation. Slight loss of height of the anterior body of T11 is of uncertain age. No fracture lines are seen. No retropulsion of fragments is evident. Correlation with clinical symptoms is suggested. MRI could provide additional evaluation. THIS IS AN ELECTRONICALLY VERIFIED FINAL REPORT 11/30/2023 9:23 PM - Electronically signed by Jeramie Newberry M.D. KH: GUERO Report ID: [id number] Reading Location: [id number] CT Head WO Contrast Result Date: 11/30/2023 Narrative: EXAM DESCRIPTION: CT HEAD WO CONTRAST REASON FOR STUDY: head trauma Pt arrives from [facility] with chief complaint of low back pain and headache after a ground level fall thatoccurred last night. Pt states that she was going to sit on the bed and missed the bed and fell onto her buttocks. States that she may have bumped her head. Denies any LOC. States she required assistance with help getting up off the floor after the fall. Family request patient be assessed in ER. Ptalert and oriented to person, self, and place upon arrival. Hx of dementia. Rating low back pain 5/10 pain 2/10. VSS. MD NOTE Chief Complaint Patient presents with Fall Back Pain HPI HPI Emerald Myers is a 88 y.o. female w/ PMHx including dementia, CAD, HTN, HLD, GERD, syncope, anemia, COPD, and PVCs presenting to the ED via EMS from [facility] w/ c/o dizziness and headache after a ground level fall last night. Pt is slightly confused on events but states she was trying to sit on the bed when she missed and fell on her buttocks on the floor. Pt states she did not hit anything on the way down and denies LOC. States she required assistance getting off the floor after the fall. Pt reports she woke up this morning and was unable to get out of bed due to dizziness. She states at this time she is only dizzy if she moves her head in certain positions. She also reports that her headfeels diffusely sore and different . Pt denies chest pain, SOB, fever, chills, cough, cold, ABD pain, and any other associated symptoms. Pt also reports low back pain that started 3x weeks ago when she got a new mattress. Pt states that she got new dentures put in 2x days ago. TECHNIQUE: Axial images acquired through the brain without intravenous contrast. Images stored on PACS. Automated exposure control was used as a dose optimization technique for this examination. COMPARISON: 02/17/2020 FINDINGS: BRAIN: No hemorrhage, edema or mass effect. No recent infarct. Patchy hypodensity of the cerebral white matter suggests chronic small- vessel ischemic changes. Diffuse atrophy of the brain is noted. EXTRA-AXIAL SPACES: No fluid collections. No masses. CALVARIUM: No fracture. SINUSES/MASTOIDS:No fluid or mucosal thickening. ORBITS: No significant abnormality. OTHER: No other significant abnormality. IMPRESSION: No acute intracranial findings. Chronic changes are noted. THIS IS AN ELECTRONICALLY VERIFIED FINAL REPORT 11/30/2023 9:22 PM - Electronically signed by Jeramie Newberry M.D. KH: GUERO Report ID: [id number] Reading Location: [place] [address] My total encounter time on 11/30/2023 was 59 minutes which was spent in the activities documented inthe note. This includes time spent prior to the visit and after the visit in direct care of the patient. This time does not include time spent in any separately reportable services. DISCLAIMER: This chart was created using [employer] dictation software. Efforts were made by me to ensure accuracy, however some errors may be present due to limitations of this technology and occasionally words are not transcribed as intended. Electronically signed: Jann Osei MD 11/30/2023 / 10:28 PM documented in this encounter ED Notes * Yahir Pickett DO - 11/30/2023 7:38 PM CDT Chief Complaint Patient presents with Fall Back Pain HPI HPI Emerald Myers is a 88 y.o. female w/ PMHx including dementia, CAD, HTN, HLD, GERD, syncope, anemia,COPD, and PVCs presenting to the ED via EMS from [facility] w/ c/o dizziness and headache after a ground level fall last night. Pt is slightly confused on events but states she was tryingto sit on the bed when she missed and fell on her buttocks on the floor. Pt states she did not hit anything on the way down and denies LOC. States she required assistance getting off the floor after the fall. Pt reports she woke up this morning and was unable to get out of bed due to dizziness. Shestates at this time she is only dizzy if she moves her head in certain positions. She also reports that her head feels diffusely sore and different . Pt denies chest pain, SOB, fever, chills, cough,cold, ABD pain, and any other associated symptoms. Pt also reports low back pain that started 3x weeks ago when she got a new mattress. Pt states that she got new dentures put in 2x days ago. Past Medical History: Diagnosis Date Coronary artery disease Dementia (HCC) GERD (gastroesophageal reflux disease) Hypertension Past Surgical History: Procedure Laterality Date CARDIAC CATHETERIZATION N/A Stents x2 No family history on file. Social History Tobacco Use Smoking status: Never Smokeless tobacco: Never Substance and Sexual Activity Drug use: Never Comment: (+) smoking stopped more than 30 years ago, (+) alcohol last drink more than 20 years ago,no drug history Sexual activity: None Alcohol Use: Not At Risk (11/30/2023) AUDIT-C Frequency of Alcohol Consumption: Never Average Number of Drinks: Patient does not drink Frequency of Binge Drinking: Never Review of Systems Review of Systems Constitutional: Negative for chills and fever. HENT: Negative for ear pain and sore throat. Eyes: Negative for pain and visual disturbance. Respiratory: Negative for cough and shortness of breath. Cardiovascular: Negative for chest pain and palpitations. Gastrointestinal: Negative for abdominal pain and vomiting. Genitourinary: Negative for dysuria and hematuria. Musculoskeletal: Positive for back pain. Negative for arthralgias. Skin: Negative for color change and rash. Neurological: Positive for dizziness and headaches. Negative for seizures and syncope. All other systems reviewed and are negative. Physical Exam ED Triage Vitals Temp Pulse Resp BP SpO2 11/30/23 1836 11/30/23 1836 11/30/23 18311/30/23183511/30/23 183 36.9 ??C (98.4 ??F) 81 16 120/70 97 % Temp src Heart Rate Source Patient Position BP Location FiO2 (%) 11/30/23 18311/30/23199911/30/23234011/30/23 2341 -- Oral Monitor HOB 30 degrees Left arm Height Height Method Weight Weight Method 11/30/23 23411/30/23 2341 11/30/236 11/30/23 2334 1.575 m (5' 2 ) Stated 68.5 kg (151 lb 0.2 oz) Standing scale Physical Exam Vitals and nursing note reviewed. Constitutional: General: She is not in acute distress. Appearance: She is well-developed. Comments: Pt is elderly and frail. HENT: Head: Normocephalic and atraumatic. Eyes: Conjunctiva/sclera: Conjunctivae normal. Cardiovascular: Rate and Rhythm: Normal rate and regular rhythm. Heart sounds: No murmur heard. Pulmonary: Effort: Pulmonary effort is normal. No respiratory distress. Breath sounds: Normal breath sounds. Abdominal: Palpations: Abdomen is soft. Tenderness: There is no abdominal tenderness. Musculoskeletal: General: No swelling. Cervical back: Neck supple. Comments: Pt has lower back pain around L2 area and across the back. No visible signs of trauma. Skin: General: Skin is warm and dry. Capillary Refill: Capillary refill takes less than 2 seconds. Neurological: Mental Status: She is alert. Comments: Pt is AxO x2. Pt is a poor historian and is confused on some recent events. Psychiatric: Mood and Affect: Mood normal. Procedures Labs Reviewed CBC WITH AUTO DIFFERENTIAL - Abnormal Result Value WBC 12.2 (*) Hgb 12.4 Hct 39.0 Plt 245 MPV 9.9 RBC 3.94 MCV 99.0 (*) MCH 31.5 MCHC 31.8 (*) RDW CV 13.6 RDW SD 50.3 (*) NRBC abs 0.00 COMPREHENSIVE METABOLIC PANEL - Abnormal Sodium 140 Potassium, pl 4.0 Chloride 105 CO2 25 Anion gap 10 BUN 15 Creatinine 1.00 Glucose 110 Calcium 8.1 (*) Bilirubin, total 0.2 Protein, pl 5.8 (*) Albumin 3.1 (*) Alk phos 83 ALT 6 (*) AST 11 DIFFERENTIAL AUTO - Abnormal Neutrophil abs 9.2 (*) Imm gran abs 0.1 Lymphocyte abs 2.0 Monocyte abs 0.8 Eosinophil abs 0.2 Basophil abs 0.0 Neutrophil pct 75.2 Imm gran pct 0.4 Lymphocyte pct 16.2 Monocyte pct 6.7 Eosinophil pct 1.3 Basophil pct 0.2 EGFR - Abnormal eGFR 55 (*) URINALYSIS AND REFLEX TO MICROSCOPIC AND CULTURE Color, ur Yellow Clarity, ur Clear Specific gravity, ur 1.011 pH, urine 5.5 Protein, ur ql Negative Glucose, ur ql Negative Ketones, ur Negative Bilirubin, ur Negative Blood, ur Negative Urobilinogen, ur <2.0 Nitrite, ur Negative Leukocyte esterase, ur Negative UA reflex comment Value: Reflex conditions for microscopic UA and culture not met. THYROID FUNCTION CASCADE TSH 3.10 COMPREHENSIVE METABOLIC PANEL CBC WITH AUTO DIFFERENTIAL THYROID FUNCTION CASCADE CT Head WO Contrast Final Result CT Lumbar Spine WO Contrast Final Result BP 145/69 (BP Location: Left arm, Patient Position: HOB 30 degrees) Pulse 80 Temp 36.7 ??C (98.1 ??F) (Oral) Resp 18 Ht 157.5 cm (5' 2 ) Wt 64.5 kg (142 lb 4.8 oz) SpO2 97% BMI 26.03 kg/m?? MDM Pt given IVF and meclizine---- still very dizzy - labs and CT scans negative for serious injury - pt lives at assisted living and not able to walk with walker due to dizziness - will admit for observation. ED Course as of 12/01/23 0402 Time: 11/30 2219 Comment: Discussed pt's case w/ Dr. Osei, Hospitalist, who agrees to accept the pt for an observation admission. By: Kalpana Funez Final diagnoses: Fall, initial encounter Acute midline low back pain without sciatica Acute nonintractable headache, unspecified headache type This note is prepared by Kalpana Funez, acting as a scribe for Yahir Pickett MD. I electronically signed this note at 4:02 AM on 12/01/2023. I, Yahir Pickett MD, have personally performed the services described in the documentation, reviewed and edited the documentation which was dictated to the scribe in my presence, and it accurately records my words and actions. Yahir Pickett DO 12/01/23 0406 * Cara Batres - 11/30/2023 6:32 PM CDT Pt arrives from [facility] with chief complaint of low back pain and headache after a ground level fall that occurred last night. Pt states that she was going to sit on the bed and missedthe bed and fell onto her buttocks. States that she may have bumped her head. Denies any LOC. States she required assistance with help getting up off the floor after the fall. Family request patient be assessed in ER. Pt alert and oriented to person, self, and place upon arrival. Hx of dementia. Rating low back pain5/10 & headache pain 2/10. VSS. documented in this encounter Miscellaneous Notes * Plan of Care - Liana Gross RN - 12/03/2023 8:50 AM CDT Problem: Discharge Planning Goal: Understanding discharge needs will improve Outcome: Adequate for Discharge Problem: Fall Risk Goal: Ability to state ways to decrease the risk of falls will improve Outcome: Adequate for Discharge Goal: Will remain free from falls Outcome: Adequate for Discharge Goal: Will remain free from injury from falls Outcome: Adequate for Discharge Problem: Skin Integrity Impairment Risk Goal: Mobility will improve Outcome: Adequate for Discharge Goal: Understanding of ways to prevent future skin breakdown will improve Outcome: Adequate for Discharge Goal: Nutritional status will improve Outcome: Adequate for Discharge Goal: Risk for impaired skin integrity will decrease Outcome: Adequate for Discharge Goals: Clinical Goals for the Shift: free from falls and safety management Custodial Patient Centered Goal for Treatment: discharge * Plan of Care - Nisha Buckner RN - 12/03/2023 8:47 AM CDT DISCHARGE PLANNING HAS BEEN FINALIZED AT THIS TIME Care management team spoke with [facility] and finalized discharge planning, please see below. If additional discharge needs arise, please reach out to the care management team. DENILSON: 12/03/23 RETURNING TO ASSISTED LIVING: [facility] [address] [place] [address] Spoke with school admissions representative at facility and pt able to return. 12/03/23 0847 Discharge Summary Discharge Disposition Assisted living Specify Facility [facility] Recommended Discharge Level of Care Assisted living Actual Discharge Level of Care Assisted living Does Actual Level of Care Match Care Team Recommendation? Yes Discharge Additional Assistance Does the patient need discharge transport arranged? No * Plan of Care - Nisha Bucnker RN - 12/03/2023 8:45 AM CDT Received call back from [facility], patient may return to facility. Facility has already reached out to patient's POA/granddaughter Katharine who will transport her back today around noon. * Plan of Care - Nisha Buckner RN - 12/03/2023 8:13 AM CDT Call placed to Isabel at [facility] to discuss discharge back to facility. Isabel not in yet. Message left for her to call back this morning. 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 Goal for Treatment: discharge Summary: all goals ongoing See Flowsheets Problem: Discharge Planning Goal: Understanding discharge needs will improve Outcome: Progressing Problem: Fall Risk Goal: Ability to state ways to decrease the risk of falls will improve Outcome: Progressing Goal: Will remain free from falls Outcome: Progressing Goal: Will remain free from injury from falls Outcome: Progressing Problem: Skin Integrity Impairment Risk Goal: Mobility will improve Outcome: Progressing Goal: Understanding of ways to prevent future skin breakdown will improve Outcome: Progressing Goal: Nutritional status will improve Outcome: Progressing Goal: Risk for impaired skin integrity will decrease Outcome: Progressing * Plan of Care - Nisha Buckner RN - 12/02/2023 2:10 PM CDT Progress notes, MAR, and therapy notes faxed to Isabel at [facility]. Will need to be reviewed prior to being able to return to facility. Orthostatic VSS stable. * Initial Assessments - Nisha Buckner RN - 12/02/2023 11:39 AM CDT CM Initial Assessment Interview Note Information Obtained From: Other (Specify) Name: Katharine GALVEZ (12/02/23 9996) Admission Source: ED from [facility]-memory care unit Impression: Presented with fall at [facility]. Admitted for vertigo. Patient is baseline A/Ox2. VSS on RA.Ambulating in room with SBA Plan Includes: Met with patient. She is pleasantly confused. Call placed to [facility] and spoke with Isabel. Isabel will need progress notes, H&P, and therapy notes before discussing return to facility. Therapy contacted to see and have noted entered. Primary Source of Transportation: Does the patient need discharge transport arranged?: No (12/01/23 0001) Health Insurance Coverage: Primary Coverage Payor Plan Insurance Group Employer/Plan Group MEDICARE MEDICARE PART A & B Payor Plan Address Payor Plan Phone Number Payor Plan Fax Number Effective Dates [address] [address] 05/23/2001 - None Entered [facility] [phone] Subscriber Name Subscriber Date Member ID EMERALD MYERS 1935 [id number] Secondary Coverage Payor Plan Insurance Group Employer/Plan Group BCBS OOS BLUE TRADITIONAL OOS [id number] Payor Plan Address Payor Plan Phone Number Payor Plan Fax Number Effective Dates [phone] 12/22/2015 - None Entered [facility] [address] Subscriber Name Subscriber Date Member ID EMERALD MYERS 1935 [id number] Pharmacy: [facility] [address] [facility] [address] [facility] [address] Primary Care Provider: Saurabh Valerio MD Prior to Admission: Functional Status: Moderate assist with ADLs Primary Caregiver: Facility staff Support System: Children, Family members Home Care Services: No Outpatient Services: No Durable Medical Equipment: Rollator Living Arrangements: Alone Type of Residence: Assisted living Does patient wish to return to care facility?: Yes, wishes to return Will the care facility allow the patient to return?: Yes, patient can return Care Facility Name: [facility], memory care (12/01/23 0001) SDOH: Transportation: In the past 12 months, has lack of transportation kept you from medical appointments or from getting medications?: No In the past 12 months, has lack of transportation kept you from meetings, work, or from getting things needed for daily living?: No (12/02/23 113) Financial Resource: How hard is it for you to pay for the very basics like food, housing, medical care, and heating?: Not hard at all (12/02/23 113) Housing: In the last 12 months, was there a time when you were not able to pay the mortgage or rent on time?: No In the past 12 months, how many times have you moved where you were living?: 0 At any time in the past 12 months, were you homeless or living in a long-term (including now)?: No (12/02/231138) Utilities: No, (12/02/231138) Social Connections: In a typical week, how many times do you talk on the phone with family, friends, or neighbors?: More than three times a week How often do you get together with friends or relatives?: Once a week How often do you attend congregational or rastafarian services?: Never Do you belong to any clubs or organizations such as congregational groups, unions, fraternal or athletic groups, or school groups?: No How often do you attend meetings of the clubs or organizations you belong to?: Never Are you , , , , never , or living with a partner?: (12/02/231138) Food Insecurity: Within the past 12 months, you worried that your food would run out before you got the money to buymore.: Never true Within the past 12 months, the food you bought just didn't last and you didn't have money to get more.: Never true (12/02/231138) Anticipated Level of Care: Anticipated discharge level of care: Assisted living Pt/Family agrees with Anticipated Level of Care: Yes (12/02/231135) Patient expects to be Discharged to: Assisted Living, (12/02/231135) Patient's Identified Problem/Goal Problem: Ensure acute medical needs are met and that patient has a safe discharge plan. Goal: Secure a discharge plan that patient/family are agreeable with and ensure patient has continuum of care. Case management will follow for discharge planning and send referrals as needed. Nisha Buckner RN * Plan of Care - Mandi Rivera RN - 12/02/2023 3:15 AM CDT Problem: Discharge Planning Goal: Understanding discharge needs will improve 12/02/2023314 by Mandi Rivera RN Outcome: Progressing 12/02/2023314 by Mandi Rivera RN Outcome: Progressing 12/02/2023314 by Mandi Rivera RN Outcome: Progressing Problem: Fall Risk Goal: Ability to state ways to decrease the risk of falls will improve 12/02/2023314 by Mandi Rivera RN Outcome: Progressing 12/02/2023314 by Mandi Rivera RN Outcome: Progressing 12/02/2023314 by Mandi Rivera RN Outcome: Progressing Goal: Will remain free from falls 12/02/2023314 by Mandi Rivera RN Outcome: Progressing 12/02/2023314 by Mandi Rivera RN Outcome: Progressing 12/02/2023314 by Mandi Rivera RN Outcome: Progressing Goal: Will remain free from injury from falls 12/02/2023314 by Mandi Rivera RN Outcome: Progressing 12/02/2023314 by Mandi Rivera RN Outcome: Progressing 12/02/2023314 by Mandi Rivera RN Outcome: Progressing Problem: Skin Integrity Impairment Risk Goal: Mobility will improve 12/02/2023314 by Mandi Rivera RN Outcome: Progressing 12/02/2023314 by Mandi Rivera RN Outcome: Progressing 12/02/2023314 by Mandi Rivera RN Outcome: Progressing Goal: Understanding of ways to prevent future skin breakdown will improve 12/02/2023314 by Mandi Rivera RN Outcome: Progressing 12/02/2023314 by Mandi Rivera RN Outcome: Progressing 12/02/2023314 by Mandi Rivera RN Outcome: Progressing Goal: Nutritional status will improve 12/02/2023314 by Mandi Rivera RN Outcome: Progressing 12/02/2023314 by Mandi Rivera RN Outcome: Progressing 12/02/2023314 by Mandi Rivera RN Outcome: Progressing Goal: Risk for impaired skin integrity will decrease 12/02/2023314 by Mandi Rivera RN Outcome: Progressing 12/02/2023314 by Mandi Rivera RN Outcome: Progressing 12/02/2023314 by Mandi Rivera RN Outcome: Progressing Goals: Clinical Goals for the Shift: rest, get fluids, vss Summary: * Plan of Care - Mandi Rivera RN - 12/02/2023 3:15 AM CDT Goals: Clinical Goals for the Shift: rest, get fluids, vss Summary: Problem: Discharge Planning Goal: Understanding discharge needs will improve Outcome: Progressing Problem: Fall Risk Goal: Ability to state ways to decrease the risk of falls will improve Outcome: Progressing Goal: Will remain free from falls Outcome: Progressing Goal: Will remain free from injury from falls Outcome: Progressing Problem: Skin Integrity Impairment Risk Goal: Mobility will improve Outcome: Progressing Goal: Understanding of ways to prevent future skin breakdown will improve Outcome: Progressing Goal: Nutritional status will improve Outcome: Progressing Goal: Risk for impaired skin integrity will decrease Outcome: Progressing * Plan of Care - Ruba Arredondo RN - 12/01/2023 5:46 PM CDT Problem: Discharge Planning Goal: Understanding discharge needs will improve Outcome: Progressing Problem: Fall Risk Goal: Ability to state ways to decrease the risk of falls will improve Outcome: Progressing Goal: Will remain free from falls Outcome: Progressing Goal: Will remain free from injury from falls Outcome: Progressing Problem: Skin Integrity Impairment Risk Goal: Mobility will improve Outcome: Progressing Goal: Understanding of ways to prevent future skin breakdown will improve Outcome: Progressing Goal: Nutritional status will improve Outcome: Progressing Goal: Risk for impaired skin integrity will decrease Outcome: Progressing * Plan of Fidelina - Eda Farris RN - 12/01/2023 3:17 AM CDT Problem: Discharge Planning Goal: Understanding discharge needs will improve Outcome: Progressing Problem: Fall Risk Goal: Ability to state ways to decrease the risk of falls will improve Outcome: Progressing Goal: Will remain free from falls Outcome: Progressing Goal: Will remain free from injury from falls Outcome: Progressing Problem: Skin Integrity Impairment Risk Goal: Mobility will improve Outcome: Progressing Goal: Understanding of ways to prevent future skin breakdown will improve Outcome: Progressing Goal: Nutritional status will improve Outcome: Progressing Goal: Risk for impaired skin integrity will decrease Outcome: Progressing Goals: Clinical Goals for the Shift: vss no falls Summary: pt resting in bed sitter at bedside assist up to bsc pt still complain of dizziness discussed fall precautions with pt continued education needed documented in this encounter Plan of Treatment Pending Results Name Type Priority Associated Diagnoses Date /Time Thyroid Function [place] [facility] STAT 11/30/2023 7:10 PM CDT Scheduled Orders Name Type Priority Associated Diagnoses Orde r Schedule Thyroid Function [facility] STAT Once for 1 Occurrences starting 11/30/2023 until 11/30/2023 documented as of this encounter Procedures Procedure Name Priority Date/Time Associated Diagnosis Comments EGFR Routine 12/01/2023 5:19 AM CDT DIFFERENTIAL AUTO Routine 12/01/2023 5:1 9 AM CDT CBC WITH AUTO DIFFERENTIAL Routine 12/01/2023 5:19 AM CDT COMPREHENSIVE METABOLIC PANEL Routine 12/01/2023 5:19 AM CDT URINALYSIS AND REFLEX TO MICROSCOPIC AND CULTURE STAT 11/30/2023 8:[address] LUMBAR SPINE WO CONTRAST ED 11/30/2023 8:[address] HEAD WO CONTRAST ED 11/30/2023 8 :35 PM CDT EGFR STAT 11/30/2023 7:10 PM CDT DIFFERENTIAL AUTO STAT 11/30/2023 7:1 0 PM CDT THYROID FUNCTION CASCADE STAT 11/30/2023 7:10 PM CDT CBC WITH AUTO DIFFERENTIAL STAT 11/30/2023 7:10 PM CDT COMPREHENSIVE METABOLIC PANEL STAT 11/30/2023 7:10 PM CDT documented in this encounter Results * eGFR (12/01/2023 5:19 AM CDT) eGFR 71 >=60 mL/min/1. 73 m2 Comment: Interpretive Data [...] was last reviewed 2021. Testing performed by: [facility], [address] [place] [address]., [id number] Blood 12/01/2023 5:19 AM CDT 12/01/2023 5:35 AM CDT us Jann Osei MD LAB BLOOD ORDERABLES Final Result [id number] [facility] Department [place] [address] * Differential, auto (12/01/2023 5:19 AM CDT) Pathologist [facility] Neutrophil abs 5.8 1.5 - 6.5 K/cumm Comment:Testing performed by : [address] [address] Imm gran abs 0.0 0.0 - 0.1 K/cumm KALANI Comment:Testing performed by : [address] [address] Lymphocyte abs 2.7 0.8 - 3.3 K/cumm KALANI Comment:Testing performed by : [address] [address] Monocyte abs 0.5 0.2 - 0.8 K/cumm [facility] Comment:Testing performed by : [address] [address] Eosinophil abs 0.2 0.0 - 0.5 K/cumm [facility] Comment:Testing performed by : [address] [address] Basophil abs 0.0 0.0 - 0.1 K/cumm [facility] Comment:Testing performed by : [address] [address] Neutrophil pct 62.7 % [facility] Comment: Interpretive Data Percent cell count reference ranges are not reported, since discordance with absolute values may lead to misinterpretation of CBC data. Current Interpretive Data was last revised on 2017. Testing performed by: [address] [address] Imm gran pct 0.2 % [facility] Comment: Interpretive Data Percent cell count reference ranges are not reported, since discordance with absolute values may lead to misinterpretation of CBC data. Current Interpretive Data was last revised on 2017. Testing performed by: [address] [address] Lymphocyte pct 28.9 % [facility] Comment: Interpretive Data Percent cell count reference ranges are not reported, since discordance with absolute values may lead to misinterpretation of CBC data. Current Interpretive Data was last revised on 2017. Testing performed by: [address] [address] Monocyte pct 5.4 % [facility] Comment: Interpretive Data Percent cell count reference ranges are not reported, since discordance with absolute values may lead to misinterpretation of CBC data. Current Interpretive Data was last revised on 2017. Testing performed by: [address] [address] Eosinophil pct 2.5 % [facility] Comment: Interpretive Data Percent cell count reference ranges are not reported, since discordance with absolute values may lead to misinterpretation of CBC data. Current Interpretive Data was last revised on 2017. Testing performed by: [address] [address] Basophil pct 0.3 % KALANI Comment: Interpretive Data Percent cell count reference ranges are not reported, since discordance with absolute values may lead to misinterpretation of CBC data. Current Interpretive Data was last revised on 2017. Testing performed by: [address] [address] Blood 12/01/2023 5:19 AM CDT 12/01/2023 5:35 AM CDT Jann Osei MD LAB BLOOD ORDERABLES Final Result [facility] [address] [facility] Department [place] [address] * (ABNORMAL) CBC with auto differential (12/01/2023 5:19 AM CDT) Pathologist [facility] WBC 9.3 3.8 - 9.9 K/cumm Comment:Testing performed by : [address] [address] Hgb 13.2 11.9 - 15.5 g/dL KALANI HUSAIN Comment:Testing performed by : [address] [address] Hct 40.0 35.6 - 45.5 % KALANI HUSAIN Comment:Testing performed by : [address] [address] Plt 262 150 - 400 K/cumm KALANI HUSAIN Comment:Testing performed by : [address] [address] MPV 9.9 9.1 - 12.3 fL KALANI HUSAIN Comment:Testing performed by : [address] [address] RBC 4.13 3.90 - 5.20 M/cumm KALANI HUSAIN Comment:Testing performed by : [address] [address] MCV 96.9(H) 81.3 - 96.4 fL KALANI Comment:Testing performed by : [address] [address] MCH 32.0 27.1 - 33.3 pg KALANI HUSAIN Comment:Testing performed by : [address] [address] MCHC 33.0 32.3 - 35.7 g/dL KALANI Comment:Testing performed by : [address] [address] RDW CV 13.7 11.1 - 14.9 % KALANI Comment:Testing performed by : [address] [address] RDW SD 49.1(H) 35.7 - 48.1 fL KALANI HUSAIN Comment:Testing performed by : [address] [address] NRBC abs 0.00 0.00 - 0.01 K/cumm KALANI HUSAIN Comment:Testing performed by : [address] [address] Blood 12/01/2023 5:19 AM CDT 12/01/2023 5:35 AM CDT Jann Osei MD LAB BLOOD ORDERABLES Final Result KALANI HUSAIN [address] [facility] Department [place] [address] * (ABNORMAL) Comprehensive metabolic panel (12/01/2023 5:19 AM CDT) Sodium 141 135 - 145 mmol/L Comment:Testing performed by : [facility], [address] [place] [address], [place]., [address] Potassium, pl 3.8 3.3 - 4.9 mmol/L KALANI Comment:Testing performed by : [address], [place]., [address] Chloride 105 97 - 110 mmol/L KALANI Comment:Testing performed by : [address], [place]., [address] CO2 25 22 - 32 mmol/L KALANI Comment:Testing performed by : [address], [place]., [address] Anion gap 11 2 - 15 mmol/L KALANI Comment:Testing performed by : [address], [place]., [address] BUN 12 6 - 25 mg/dL KALANI Comment:Testing performed by : [address], [place]., [address] Creatinine 0.80 0.60 - 1.10 mg/dL KALANI Comment:Testing performed by : [address], [place]., [address] Glucose 84 70 - 199 mg/dL KALANI Comment: Interpretive [...] last revised 2022. Testing performed by: [address], [place]., [address] Calcium 8.4(L) 8.5 - 10.3 mg/dL KALANI Comment:Testing performed by : [address], [place]., [address] Bilirubin, total 0.3 0.1 - 1.2 mg/dL KALANI Comment:Testing performed by : [address] [address] Protein, pl 6.2(L) 6.5 - 8.5 g/dL KALANI Comment:Testing performed by : [address] [address] Albumin 3.2(L) 3.5 - 5.0 g/dL KALANI Comment:Testing performed by : [address] [address] Alk phos 80 40 - 130 Units/L KALANI Comment:Testing performed by : [address] [address] ALT <5(L) 7 - 45 Units/L KALANI Comment:Testing performed by : [address] [address] AST 11 10 - 45 Units/L KALANI Comment:Testing performed by : [address] [address] Blood 12/01/2023 5:19 AM CDT 12/01/2023 5:35 AM CDT Jann Osei MD LAB BLOOD ORDERABLES Final Result KALANI [address] [facility] Department of Laboratories [place], [place] [id number] * Urinalysis reflex to microscopic and culture Urine (11/30/2023 8:48 PM CDT) Color, ur Yellow Yellow Comment:Testing performed by : [address] [address] Clarity, ur Clear Clear KALANI Comment:Testing performed by : [address] [address] Specific gravity, ur 1.011 1.003 - 1.030 KALANI Comment:Testing performed by : [address] [address] pH, urine 5.5 KALANI Comment: Interpretive Data ? Urine pH is affected by diet, medications, systemic acid-base disturbances, and renal tubular function. ??pH may affect urinary stone formation. ??For example, urine pH below 6.0 may help reduce the tendency for calcium phosphate stones and pH greater than 6.0 may reduce the tendency for uric acid stone formation. Source: [facility] [employer] Current Interpretive Data was last revised on 2017 Testing performed by: [facility], [address] [place] [address]., [address] Protein, ur ql Negative Negative KALANI Comment:Testing performed by : [address] [address] Glucose, ur ql Negative Negative KALANI Comment:Testing performed by : [address], [place]., [address] Ketones, ur Negative Negative KALANI Comment:Testing performed by : [address], [place]., [address] Bilirubin, ur Negative Negative KALANI Comment:Testing performed by : [address], [place]., [address] Blood, ur Negative Negative KALANI Comment:Testing performed by : [address], [place]., [address] Urobilinogen, ur <2.0 <2.0 mg/dL KALANI Comment:Testing performed by : [address] [address] Nitrite, ur Negative Negative KALANI Comment:Testing performed by : [address] [address] Leukocyte esterase, ur Negative Negative KALANI Comment:Testing performed by : [address] [address] UA reflex comment Reflex conditions for microscopic UA and culture not met. KALANI Comment:Testing performed by : [address] [address] Urine 11/30/2023 8:48 PM CDT 11/30/2023 8:52 PM CDT us Yahir Pickett DO LAB MICROBIOLOGY - GENERAL ORD ERABLES Final Result KALANI HUSAIN [address] [facility] Department [place] [address] * CT Lumbar Spine WO Contrast (11/30/2023 8:35 PM CDT) Anatomical Region Laterality Modality Spine N/A Computed Tomogra phy 11/30/2023 9:16 PM CDT Narrative 11/30/2023 9:23 PM CDT EXAM DESCRIPTION: ?? CT LUMBAR SPINE WO CONTRAST REASON FOR STUDY: ?? fall with low back pain ?? Pt arrives from [facility] with chief complaint of low back pain and headache after a ground level fall that occurred last night. Pt states that she was going to sit on the bed and missed the bed and fell onto her buttocks. States that she ?? may have bumped her head. Denies any LOC. States she required assistance with help getting up off the floor after the fall. ? Family request patient be assessed in ER. ?Pt alert and oriented to person, self, and place upon arrival. Hx of dementia. Rating low back pain 08/29 pain 06/01. VSS. ?MD NOTE ??Chief Complaint ?? Patient presents with ? Fall ?Back Pain ?HPI ??HPI ? Emerald Myers is a 88 y.o. female w/ PMHx including dementia, CAD, HTN, HLD, GERD, syncope, anemia, COPD, and PVCs presenting to the ED via EMS from [facility] w/ c/o dizziness and headache after a ground level fall last night. Pt is ?? slightly confused on events but states she was trying to sit on the bed when she missed and fell on her buttocks on the floor. Pt states she did not hit anything on the way down and denies LOC. States she required assistance getting off the floor after ?? the fall. Pt reports she woke up this morning and was unable to get out of bed due to dizziness. She states at this time she is only dizzy if she moves her head in certain positions. She also reports that her head feels diffusely sore and different . ?? Pt denies chest pain, SOB, fever, chills, cough, cold, ABD pain, and any other associated symptoms. Pt also reports low back pain that started 3x weeks ago when she got a new mattress. Pt states that she got new dentures put in 2x days ago. ?? TECHNIQUE: Axial images acquired through the lumbar spine without intravenous contrast. ??Reconstructed coronal and sagittal MPR images reviewed. ??All images stored on PACS. Automated exposure control was used as a dose optimization technique for this examination. COMPARISON: ?? None FINDINGS: SEGMENTATION: ?? No transitional anatomy. The lowest well-developed disc space is labeled L5-S1. ALIGNMENT: ?? Normal. VERTEBRAE: ?? Slight wedging of the anterior body of T11 is noted. ??This is of uncertain age. ??No fracture lines are identified. ??No retropulsion of fragments is seen. DISC HEIGHT: ?? Vertebral disc narrowing is noted particularly at L1-L2 and L2-L3. ??Some marginal spurring is seen at these levels. HARDWARE: ?? None in the spine. INDIVIDUAL DISC LEVELS: L1-2: ?? Moderate to broad circumferential bulging is seen. ??The canal appears to be partially narrowed. ??Neural foraminal openings are partially narrowed by spurring and disc material. L2-3: ?? Moderate circumferential bulging is seen. ??The canal is narrowed. ?? Canal contents are not well discerned. ??Facet arthropathy is seen. ??The neural foraminal openings are crowded particularly on the right. L3-4: ?? Moderate circumferential bulging is seen. ??Facet arthropathy is seen with hypertrophy. ??The canal appears to be partially narrowed. ??The neural foraminal openings are mildly narrowed. L4-5: ?? Moderate circumferential bulging is seen. ??Bulky facet hypertrophy is noted. ??There appears to be a tight canal stenosis. ??Canal contents are not well delineated. ??The neural foraminal openings are partially crowded. L5-S1: ??Mild circumferential bulging is suspected. ??The canal is it least partially narrowed. ??The neural foraminal openings are partially narrowed VISUALIZED RIBS: ?? No fractures. SOFT TISSUES: ?? No significant or acute finding in adjacent soft tissues. OTHER: ?? No other significant finding. IMPRESSION: ?? 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 ??Multiple levels of significant canal and neural foraminal narrowing are suspected. ??However, canal contents are not well seen by CT. ??MRI would likely provide better evaluation. Slight loss of height of the anterior body of T11 is of uncertain age. ??No fracture lines are seen. ??No retropulsion of fragments is evident. ?? Correlation with clinical symptoms is suggested. ??MRI could provide additional evaluation. THIS IS AN ELECTRONICALLY VERIFIED FINAL REPORT 11/30/2023 9:23 PM - Electronically signed by ??Jeramie Newberry M.D. KH: GUERO D: ??11/30/2023 9:21 PM T: ??11/30/2023 9:23 PM Report ID: [id number] Reading Location: ??[id number] Procedure Note Jeramie Newberry MD - 11/30/2023 EXAM DESCRIPTION: CT LUMBAR SPINE WO CONTRAST REASON FOR STUDY: fall with low back pain Pt arrives from [facility] with chief complaint of low backpain and headache after a ground level fall that occurred last night. Pt states that she was going to sit on the bed and missed the bed and fell onto her buttocks. States that she may have bumped her head. Denies any LOC.States she required assistance with help getting up off the floor after the fall. Family request patient be assessed in ER. Pt alert and oriented to person, self, and place upon arrival. Hx of dementia. Rating low back pain 5/10 pain 2/10. VSS. NOTE Chief Complaint Patient presents with Fall Back Pain HPI HPI Emerald Myers is a 88 y.o. female w/PMHx including dementia, CAD, HTN, HLD, GERD, syncope, anemia, COPD, and PVCs presenting to the ED via EMS from [facility] w/ c/o dizzinessand headache after a ground level fall last night. Pt is slightly confusedon events but states she was trying to sit on the bed when she missed andfell on her buttocks on the floor. Pt states she did not hit anything on the waydown and denies LOC. States she required assistance getting off the floor after the fall. Pt reports she woke up this morning and was unable to get out ofbed due to dizziness. She states at this time she is only dizzy if she movesher head in certain positions. She also reports that her head feels diffuselysore and different . Pt denies chest pain, SOB, fever, chills, cough, cold,ABD pain, and any other associated symptoms. Pt also reports low back painthat started 3x weeks ago when she got a new mattress. Pt states that she gotnew dentures put in 2x days ago. TECHNIQUE: Axial images acquired through the lumbar spine withoutintravenous contrast. Reconstructed coronal and sagittal MPR images reviewed. Allimages stored on PACS. Automated exposure control was used as a dose optimization technique forthis examination. COMPARISON: None FINDINGS: SEGMENTATION: No transitional anatomy. The lowestwell-developed disc space is labeled L5-S1. ALIGNMENT: Normal. VERTEBRAE: Slight wedging of the anterior body of T11 is noted. This isof uncertain age. No fracture lines are identified. No retropulsion of fragments is seen. DISC HEIGHT: Vertebral disc narrowing is noted particularly at L1-L2 and L2-L3. Some marginal spurring is seen at these levels. HARDWARE: None in the spine. INDIVIDUAL DISC LEVELS: L1-2: Moderate to broad circumferential bulging is seen. The canalappears to be partially narrowed. Neural foraminal openings are partiallynarrowed by spurring and disc material. L2-3: Moderate circumferential bulging is seen. The canal is narrowed. Canal contents are not well discerned. Facet arthropathy is seen. Theneural foraminal openings are crowded particularly on the right. L3-4: Moderate circumferential bulging is seen. Facet arthropathy isseen with hypertrophy. The canal appears to be partially narrowed. The neural foraminal openings are mildly narrowed. L4-5: Moderate circumferential bulging is seen. Bulky facet hypertrophyis noted. There appears to be a tight canal stenosis. Canal contents arenot well delineated. The neural foraminal openings are partially crowded. L5-S1: Mild circumferential bulging is suspected. The canal is it least partially narrowed. The neural foraminal openings are partially narrowed VISUALIZED RIBS: No fractures. SOFT TISSUES: No significant or acute finding in adjacent soft tissues. OTHER: No other significant finding. 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 Multiplelevels of significant canal and neural foraminal narrowing are suspected.However, canal contents are not well seen by CT. MRI would likely provide better evaluation. Slight loss of height of the anterior body of T11 is of uncertain age. No fracture lines are seen. No retropulsion of fragments is evident. Correlation with clinical symptoms is suggested. MRI could provideadditional evaluation. THIS IS AN ELECTRONICALLY VERIFIED FINAL REPORT 11/30/2023 9:23 PM - Electronically signed by Jeramie Newberry M.D. KH: GUERO Report ID: [id number] Reading Location: [id number] us Yahir Pickett DO IMG CT PROCEDURES Final Result * CT Head WO Contrast (11/30/2023 8:35 PM CDT) Anatomical Region Laterality Modality Head and Neck N/A Computed Tomogra phy 11/30/2023 9:21 PM CDT Narrative 11/30/2023 9:22 PM CDT EXAM DESCRIPTION: CT HEAD WO CONTRAST REASON FOR STUDY: head trauma ?? Pt arrives from [facility] with chief complaint of low back pain and headache after a ground level fall that occurred last night. Pt states that she was going to sit on the bed and missed the bed and fell onto her buttocks. States that she ?? may have bumped her head. Denies any LOC. States she required assistance with help getting up off the floor after the fall. ? Family request patient be assessed in ER. ?Pt alert and oriented to person, self, and place upon arrival. Hx of dementia. Rating low back pain 5/10 pain 2/10. VSS. ?MD NOTE ??Chief Complaint ?? Patient presents with ? Fall ?Back Pain ?HPI ??HPI ? mEerald Myers is a 88 y.o. female w/ PMHx including dementia, CAD, HTN, HLD, GERD, syncope, anemia, COPD, and PVCs presenting to the ED via EMS from [facility] w/ c/o dizziness and headache after a ground level fall last night. Pt is ?? slightly confused on events but states she was trying to sit on the bed when she missed and fell on her buttocks on the floor. Pt states she did not hit anything on the way down and denies LOC. States she required assistance getting off the floor after ?? the fall. Pt reports she woke up this morning and was unable to get out of bed due to dizziness. She states at this time she is only dizzy if she moves her head in certain positions. She also reports that her head feels diffusely sore and different . ?? Pt denies chest pain, SOB, fever, chills, cough, cold, ABD pain, and any other associated symptoms. Pt also reports low back pain that started 3x weeks ago when she got a new mattress. Pt states that she got new dentures put in 2x days ago. ?? TECHNIQUE: Axial images acquired through the brain without intravenous contrast. ??Images stored on PACS. ?? Automated exposure control was used as a dose optimization technique for this examination. COMPARISON: 02/17/2020 FINDINGS: BRAIN: ?? No hemorrhage, edema or [...] significant abnormality. IMPRESSION: No acute intracranial findings. ?? Chronic changes are noted. THIS IS AN ELECTRONICALLY VERIFIED FINAL REPORT 11/30/2023 9:22 PM - Electronically signed by ??Jeramie Newberry M.D. KH: GUERO D: ??11/30/2023 9:22 PM T: ??11/30/2023 9:22 PM Report ID: [id number] Reading Location: ??[id number] Procedure Note Jeramie Newberry MD - 11/30/2023 EXAM DESCRIPTION: CT HEAD WO CONTRAST REASON FOR STUDY: head trauma Pt arrives from [facility] with chief complaint of low backpain and headache after a ground level fall that occurred last night. Pt states that she was going to sit on the bed and missed the bed and fell onto her buttocks. States that she may have bumped her head. Denies any LOC.States she required assistance with help getting up off the floor after the fall. Family request patient be assessed in ER. Pt alert and oriented to person, self, and place upon arrival. Hx of dementia. Rating low back pain 5/10 pain 2/10. VSS. NOTE Chief Complaint Patient presents with Fall Back Pain HPI HPI Emerald Myers is a 88 y.o. female w/PMHx including dementia, CAD, HTN, HLD, GERD, syncope, anemia, COPD, and PVCs presenting to the ED via EMS from [facility] w/ c/o dizzinessand headache after a ground level fall last night. Pt is slightly confusedon events but states she was trying to sit on the bed when she missed andfell on her buttocks on the floor. Pt states she did not hit anything on the waydown and denies LOC. States she required assistance getting off the floor after the fall. Pt reports she woke up this morning and was unable to get out ofbed due to dizziness. She states at this time she is only dizzy if she movesher head in certain positions. She also reports that her head feels diffuselysore and different . Pt denies chest pain, SOB, fever, chills, cough, cold,ABD pain, and any other associated symptoms. Pt also reports low back painthat started 3x weeks ago when she got a new mattress. Pt states that she gotnew dentures put in 2x days ago. TECHNIQUE: Axial images acquired through the brain without intravenous contrast. Images stored on PACS. Automated exposure control was used asa dose optimization technique for this examination. COMPARISON: 02/17/2020 FINDINGS: BRAIN: No hemorrhage, edema or mass effect. No recent infarct. Patchy hypodensity of the cerebral white matter suggests chronicsmall-vessel ischemic changes. Diffuse atrophy of the brain is noted. EXTRA-AXIAL SPACES: No fluid collections. No masses. CALVARIUM: No fracture. SINUSES/MASTOIDS: No fluid or mucosal thickening. ORBITS: No significant abnormality. OTHER: No other significant abnormality. IMPRESSION: No acute intracranial findings. Chronic changes are noted. THIS IS AN ELECTRONICALLY VERIFIED FINAL REPORT 11/30/2023 9:22 PM - Electronically signed by Jeramie Newberry M.D. KH: GUERO Report ID: [id number] Reading Location: [id number] us Yahir Pickett DO IMG CT PROCEDURES Final Result * Thyroid Function [place] (11/30/2023 7:10 PM CDT) Pathologist [facility] TSH 3.10 0.30 - 4.20 mcIUnit/mL Comment:Testing performed by : [facility], [address] [place] [address]., [id number] Blood 11/30/2023 7:10 PM CDT 11/30/2023 7:16 PM CDT us Jann Osei MD LAB BLOOD ORDERABLES Final Result Performing Organization Address City/State/[facility] Phone Number [facility] [address] [facility] Department [place] [address] * (ABNORMAL) eGFR (11/30/2023 7:10 PM CDT) Pathologist [facility] eGFR 55(L) >=60 mL/min/1. 73 m2 Comment: Interpretive Data [...] was last reviewed 2021. Testing performed by: [address] [address] Blood 11/30/2023 7:10 PM CDT 11/30/2023 7:16 PM CDT us Yahir Pickett DO LAB BLOOD ORDERABLES Final Res ult KALANI [address] [facility] Department [place] [address] * (ABNORMAL) Differential, auto (11/30/2023 7:10 PM CDT) Neutrophil abs 9.2(H) 1.5 - 6.5 K/cumm Comment:Testing performed by : [address] [address] Imm gran abs 0.1 0.0 - 0.1 K/cumm KALANI Comment:Testing performed by : [address] [address] Lymphocyte abs 2.0 0.8 - 3.3 K/cumm KAALNI Comment:Testing performed by : [address] [address] Monocyte abs 0.8 0.2 - 0.8 K/cumm KALANI Comment:Testing performed by : [address] [address] Eosinophil abs 0.2 0.0 - 0.5 K/cumm KALANI Comment:Testing performed by : [address] [address] Basophil abs 0.0 0.0 - 0.1 K/cumm KALANI Comment:Testing performed by : [address] [address] Neutrophil pct 75.2 % [facility] Comment: Interpretive Data Percent cell count reference ranges are not reported, since discordance with absolute values may lead to misinterpretation of CBC data. Current Interpretive Data was last revised on 2017. Testing performed by: [address] [address] Imm gran pct 0.4 % [facility] Comment: Interpretive Data Percent cell count reference ranges are not reported, since discordance with absolute values may lead to misinterpretation of CBC data. Current Interpretive Data was last revised on 2017. Testing performed by: [address] [address] Lymphocyte pct 16.2 % [facility] Comment: Interpretive Data Percent cell count reference ranges are not reported, since discordance with absolute values may lead to misinterpretation of CBC data. Current Interpretive Data was last revised on 2017. Testing performed by: [address] [address] Monocyte pct 6.7 % [facility] Comment: Interpretive Data Percent cell count reference ranges are not reported, since discordance with absolute values may lead to misinterpretation of CBC data. Current Interpretive Data was last revised on 2017. Testing performed by: [address] [address] Eosinophil pct 1.3 % [facility] Comment: Interpretive Data Percent cell count reference ranges are not reported, since discordance with absolute values may lead to misinterpretation of CBC data. Current Interpretive Data was last revised on 2017. Testing performed by: [address] [address] Basophil pct 0.2 % [facility] Comment: Interpretive Data Percent cell count reference ranges are not reported, since discordance with absolute values may lead to misinterpretation of CBC data. Current Interpretive Data was last revised on 2017. Testing performed by: [address] [address] Blood 11/30/2023 7:10 PM CDT 11/30/2023 7:16 PM CDT us Yahir Slowik DO LAB BLOOD ORDERABLES Final Res ult KALANI [address] [facility] Department [place] [address] * (ABNORMAL) Comprehensive metabolic panel (11/30/2023 7:10 PM CDT) Sodium 140 135 - 145 mmol/L Comment:Testing performed by : [address] [address] Potassium, pl 4.0 3.3 - 4.9 mmol/L KALANI Comment:Testing performed by : [address] [address] Chloride 105 97 - 110 mmol/L KALANI Comment:Testing performed by : [address] [address] CO2 25 22 - 32 mmol/L KALANI Comment:Testing performed by : [address] [id number] Anion gap 10 2 - 15 mmol/L KALANI Comment:Testing performed by : [address] [address] BUN 15 6 - 25 mg/dL KALANI Comment:Testing performed by : [address] [address] Creatinine 1.00 0.60 - 1.10 mg/dL KALANI Comment:Testing performed by : [address] [address] Glucose 110 70 - 199 mg/dL KALANI Comment: Interpretive [...] classification and Diagnosis of Diabetes Diabetes Care 2021; 46: S19-S40. Current interpretive data was last revised 2022. Testing performed by: [address] [place]., [address] Calcium 8.1(L) 8.5 - 10.3 mg/dL KALANI Comment:Testing performed by : [address] [address] Bilirubin, total 0.2 0.1 - 1.2 mg/dL KALANI Comment:Testing performed by : [address] [address] Protein, pl 5.8(L) 6.5 - 8.5 g/dL KALANI Comment:Testing performed by : [address] [address] Albumin 3.1(L) 3.5 - 5.0 g/dL KALANI Comment:Testing performed by : [address], [address] Alk phos 83 40 - 130 Units/L KALANI Comment:Testing performed by : [address], [address] ALT 6(L) 7 - 45 Units/L KALANI Comment:Testing performed by : [address] [address] AST 11 10 - 45 Units/L KALANI Comment:Testing performed by : [address] [address] Blood 11/30/2023 7:10 PM CDT 11/30/2023 7:16 PM CDT us Yahir Pickett DO LAB BLOOD ORDERABLES Final Res ult KALANI [address] [facility] Department [place] [address] * (ABNORMAL) CBC with auto differential (11/30/2023 7:10 PM CDT) Pathologist [facility] WBC 12.2(H) 3.8 - 9.9 K/cumm Comment:Testing performed by : [address], [address] Hgb 12.4 11.9 - 15.5 g/dL KALANI Comment:Testing performed by : [address] [address] Hct 39.0 35.6 - 45.5 % KALANI Comment:Testing performed by : [address] [address] Plt 245 150 - 400 K/cumm KALANI Comment:Testing performed by : [address] [address] MPV 9.9 9.1 - 12.3 fL KALANI Comment:Testing performed by : [address] [address] RBC 3.94 3.90 - 5.20 M/cumm KALANI Comment:Testing performed by : [address] [address] MCV 99.0(H) 81.3 - 96.4 fL KALANI Comment:Testing performed by : [address] [address] MCH 31.5 27.1 - 33.3 pg KALANI Comment:Testing performed by : [address] [address] MCHC 31.8(L) 32.3 - 35.7 g/dL KALANI Comment:Testing performed by : [address], [address] RDW CV 13.6 11.1 - 14.9 % KALNAI Comment:Testing performed by : [address], [address] RDW SD 50.3(H) 35.7 - 48.1 fL KALANI Comment:Testing performed by : [address] [address] NRBC abs 0.00 0.00 - 0.01 K/cumm KALANI Comment:Testing performed by : [address] [address] Blood 11/30/2023 7:10 PM CDT 11/30/2023 7:16 PM CDT Yahir Slowik DO LAB BLOOD ORDERABLES Final Res ult KALANI 7140 [facility] Department [place] [address] documented in this encounter Visit Diagnoses Diagnosis Vertigo- Primary Dizziness and giddiness Fall, initial encounter Acute midline low back pain without sciatica Acute nonintractable headache, unspecified headache type Dizziness Dizziness and giddiness documented in this encounter Admitting Diagnoses Diagnosis Vertigo Dizziness and giddiness Dizziness Dizziness and giddiness documented in this encounter Administered Medications Inactive Administered Medications - up to 3 most recent administrations Medication Order MAR Action Action Date Dose Rate Site acetaminophen (TYLENOL) tablet 975 mg 975 mg (rounded from 1,000 mg), oral, Once, On 11/30/23 at 1910, For 1 dose Given 11/30/2023 7:17 PM CDT 975 mg cholestyramine-aspartame (QUESTRAN LIGHT) 4 gram packet 1 packet 1 packet, oral, Daily, First dose on 12/01/23 at 0900, Mix with water or juice. Schedule other medications 1 hour before or 4 hours after cholestyramine. Given 12/03/2023 8:49 AM CDT 1 packet Given 12/02/2023 8:35 AM CDT 1 packet Given 12/01/2023 9:32 AM CDT 1 packet enoxaparin (LOVENOX) syringe 40 mg 40 mg, subcutaneous, Daily (for enoxaparin), First dose on 12/01/23 at 2100, Indications: Deep Vein Thrombosis PreventionIndications:Deep Vein Thrombosis Prevention Given 12/02/2023 8:07 PM CDT 40 mg Left Upper Abdomen Given 12/01/2023 10:08 PM CDT 40 mg L eft Lower Abdomen FLUoxetine (PROzac) tab/cap 20 mg 20 mg, oral, Daily, First dose on 12/01/23 at 0900 Given 12/03/2023 8:48 AM CDT 20 mg Given 12/02/2023 8:35 AM CDT 20 mg Given 12/01/2023 9:33 AM CDT 20 mg Lactated Ringer's (LR) infusion 50 mL/hr, intravenous, Continuous, Starting on 11/30/23 at 2247 Rate/Dose Change 12/01/2023 9:35 AM CDT 50 mL/hr 50 mL/hr Rate/Dose Verify 12/01/2023 3:00 AM CDT 75 mL/hr 75 mL/h r Rate/Dose Verify 12/01/2023 1:30 AM CDT 75 mL/hr 75 mL/h r Right Antecubital Lactated Ringer's (LR) infusion 50 mL/hr, intravenous, Continuous, Starting on 12/01/23 at 1345, For 9 hours New Bag 12/01/2023 1:00 PM CDT 50 mL/hr 50 mL/hr meclizine (ANTIVERT) tablet 25 mg 25 mg, oral, Once, On 11/30/23 at 1910, For 1 dose Given 11/30/2023 7:16 PM CDT 25 mg meclizine (ANTIVERT) tablet 25 mg 25 mg, oral, 2 times daily PRN, dizziness, Starting on 11/30/23 at 2239 ondansetron (ZOFRAN) injection 4 mg 4 mg, intravenous, Administer over 2 Minutes, Every 6 hours PRN, nausea, vomiting, if not tolerating PO, Starting on 12/01/23 at 0248, Indications: Nausea and VomitingIndications:Nausea and Vomiting ondansetron ODT (ZOFRAN-ODT) disintegrating tablet 4 mg 4 mg, oral, Every 6 hours PRN, nausea, vomiting, Starting on 12/01/23 at 0248, Indications: Nausea and VomitingIndications:Nausea and Vomiting ramelteon (ROZEREM) tablet 8 mg 8 mg, oral, Nightly PRN, sleep, Starting on 12/01/23 at 0248, Indications: Sleep-Onset InsomniaIndications:Sleep-Onset Insomnia Given 12/02/2023 8:07 PM CDT 8 mg Given 12/01/2023 10:12 PM CDT 8 mg sodium chloride 0.9% flush 0.5-20 mL 0.5-20 mL, intra-catheter, Every 8 hours scheduled, First dose on 11/30/23 at 2249, Flush volume based on line type and size. Given 12/01/2023 6:55 PM CDT 10 mL Given 11/30/2023 11:07 PM CDT 10 mL documented in this encounter Discontinued Medications Medication Sig Discontinue Reason Start Date End Da te amLODIPine (NORVASC) 10 mg tablet Take 1 tablet (10 mg total) by mouth daily Stop Taking at Discharge 10/22/2022 12/03/2023 losartan (COZAAR) 50 mg tablet Take 1 tablet (50 mg total) by mouth daily Stop Taking at Discharge 10/22/2022 12/03/2023 documented as of this encounter Active and Recently Administered Medications Times are shown in CDT. Scheduled Medication Order 12/01/2023 12/02/2023 12/03/2023 cholestyramine-asparta me (QUESTRAN LIGHT) 4 gram packet 1 packet 1 packet, oral, Daily, First dose on 12/01/23 at 0900, Mix with water or juice. Schedule other medications 1 hour before or 4 hours after cholestyramine. 0932 (Given - Provider: Cathy Clark RN) 0835 (Given - Provider: Julia Oneal RN) 0849 (Given - Provider: Liana Gross, ZACH) enoxaparin (LOVENOX) syringe 40 mg 40 mg, subcutaneous, Daily (for enoxaparin), First dose on 12/01/23 at 2100, Indications: Deep Vein Thrombosis Prevention 2207 (Given - Provider: Mandi Rivera, ZACH) 2006 (Given - Provider: Devante Valentine RN) FLUoxetine (PROzac) tab/cap 20 mg 20 mg, oral, Daily, First dose on 12/01/23 at 0900 0933 (Given - Provider: Cathy Clark, ZACH) 0835 (Given - Provider: Julia Oneal, ZACH) 0848 (Given - Provider: Liana Gross RN) sodium chloride 0.9% flush 0.5-20 mL 0.5-20 mL, intra-catheter, Every 8 hours scheduled, First dose on 11/30/23 at 2249, Flush volume based on line type and size. 0536 (Not Given - Provider: Eda Farris RN - Reason: IV Infusing)1855 (Given - Provider: Ruba Arredondo, ZACH)2140 (Not Given - Provider: Mandi Rivera RN - Reason: Loss of IV access) 0508 (Not Given - Provider: Mandi Rivera RN - Reason: Loss of IV access)1508 (Not Given - Provider: Julia Oneal RN - Reason: Other - Comment: pt does not have IV)2006 (Not Given - Provider: Devante Valentine RN - Reason: Loss of IV access) 0506 (Not Given - Provider: Devante Valentine RN - Reason: Loss of IV access)1400 (Hold - Provider: Liana Gross RN - Reason: Other) Continuous Medication Order 12/01/2023 12/02/2023 12/03/2023 Lactated Ringer's (LR) infusion (CANCELED) 50 mL/hr, intravenous, Continuous, Starting on 11/30/23 at 2247 0130 (Rate/Dose Verify - Provider: Eda Farris RN)0300 (Rate/Dose Verify - Provider: Eda Farris RN)0935 (Rate/Dose Change - Provider: Cathy Clark, ZACH)1212 (Stopped - Provider: Ruba Arredondo, ZACH) Lactated Ringer's (LR) infusion () 50 mL/hr, intravenous, Continuous, Starting on 12/01/23 at 1345, For 9 hours 1300 (New Bag - Provider: Ruba Arredondo, ZACH) PRN Medication Order 12/01/2023 12/02/2023 12/03/2023 acetaminophen (TYLENOL) tablet 650 mg 650 mg, oral, Every 4 hours PRN, 1st line for pain, fever, fever greater than 38.3 C, Starting on 12/01/23 at 0248, Indications: Fever, Pain Carrier Fluids for Secondary Infusion - 0.9% Sodium Chloride 30 mL, intravenous, As needed, For priming tubing and/or flushing, Starting on 11/30/23 at 2248, 0-250 ml/hr to flush line after IV infusions when no maintenance IV ordered. Infuse 30mL at the same rate as the secondary infusion. Run as primary IV, not intended for KVO. meclizine (ANTIVERT) tablet 25 mg 25 mg, oral, 2 times daily PRN, dizziness, Starting on 11/30/23 at 2239 ondansetron (ZOFRAN) injection 4 mg(Linked Group 1) 4 mg, intravenous, Administer over 2 Minutes, Every 6 hours PRN, nausea, vomiting, if not tolerating PO, Starting on 12/01/23 at 0248, Indications: Nausea and Vomiting ondansetron ODT (ZOFRAN-ODT) disintegrating tablet 4 mg(Linked Group 1) 4 mg, oral, Every 6 hours PRN, nausea, vomiting, Starting on 12/01/23 at 0248, Indications: Nausea and Vomiting polyethylene glycol (MIRALAX) packet 17 g 17 g, oral, Daily PRN, constipation, Starting on 12/01/23 at 0248, Indications: constipation ramelteon (ROZEREM) tablet 8 mg 8 mg, oral, Nightly PRN, sleep, Starting on 12/01/23 at 0248, Indications: Sleep-Onset Insomnia 2211 (Given - Provider: Mandi Rivera RN) 2006 (Given - Provider: Devante Valentine RN) sodium chloride 0.9% flush 0.5-20 mL 0.5-20 mL, intra-catheter, As needed, line care, Starting on 11/30/23 at 2248, Flush volume based on line type and size. Flush before and after each use. traMADoL (ULTRAM) tablet 50 mg 50 mg, oral, Every 8 hours PRN, 2nd line for pain, Starting on 12/01/23 at 0248 Linked Groups Order Group 1: ondansetron ODT (ZOFRAN-ODT) disintegrating tablet 4 mgJump to med 4 mg, oral, Every 6 hours PRN, nausea, vomiting, Starting on 12/01/23 at 0248, Indications: Nausea and Vomiting Or ondansetron (ZOFRAN) injection 4 mgJump to med 4 mg, intravenous, Administer over 2 Minutes, Every 6 hours PRN, nausea, vomiting, if not tolerating PO, Starting on 12/01/23 at 0248, Indications: Nausea and Vomiting documented in this encounter Orders Medications Ordered That Scott ht Not Have Been Administered Count Last Ordered Date First Ordered Date acetaminophen (TYLENOL) tablet 650 mg 1 02/2024 ondansetron (ZOFRAN) injection 4 mg 1 11/30 ondansetron ODT (ZOFRAN-ODT) disintegrating tablet 4 mg 12/01/2023 polyethylene glycol (MIRALAX) packet 17 g 1 12/01/2023 traMADoL (ULTRAM) tablet 50 mg 1 12/01/2023 Carrier Fluids for Secondary Infusion - 0.9% Sodium Chloride 1 11/30/2023 meclizine (ANTIVERT) tablet 25 mg 1 024 sodium chloride 0.9% flush 0.5-20 mL 1 11/20 Nursing Count Last Ordered Date First Orde red Date DISCHARGE CALL PROVIDER 8 12/02/2023 DISCHARGE INSTRUCTIONS 2 12/02/2023 ORTHOSTATIC BLOOD PRESSURE 3 12/02/2023 0 11/30/2023 ACTIVITY 1 11/30/2023 MAINTAIN IV ACCESS 1 11/30/2023 NOTIFY PROVIDER (SPECIFY) 1 11/30/2023 WEIGH PATIENT 1 11/30/2023 IV Count Last Ordered Date First Orde red Date INSERT PERIPHERAL IV 1 11/30/2023 Admission Count Last Ordered Date First Orde red Date ADMIT TO INPATIENT 1 12/02/2023 INITIATE OBSERVATION SERVICES 1 11/30/2023 Discharge Count Last Ordered Date First Orde red Date DISCHARGE PATIENT 1 12/02/2023 documented in this encounter Care Teams Piano Builder Relationship Specialty Start Date End Date Saurabh Valerio MD [address] [facility] [address] [place] [id number] PCP - General Internal Medicine 10/18/22 documented as of this encounter
--- OUTSIDE RECORDS SUMMARY | 2024-05-01 13:46 | XMS_ITS | Encounter Summary ---
Author Organization [facility] Healthcare Address [address] [place] [address] Care Team Providers Care Pantry Goods Worker Name Role Phone Saurabh Valerio MD Primary Care Provider [phone] Reason for Visit * Reason Comments Pain * Consultation (Routine) - Closed Specialty Diagnoses / Procedures Referred By Contac t Referred To Contact Orthopedic Surgery Diagnoses Closed nondisplaced fracture of fifth metatarsal bone of left foot, initial encounter Tiffani Royal MD [address] [place] [address] [facility] [place] [address] Phone: tel: fax: Goldy Hunt DO [address] [place] [address] DR SHERIFF [address] [place] [id number] Phone: tel: fax: Referral ID Status Reason Start Date Expiration Date V isits Requested Visits Authorized [id number] Closed Specialty Services Required 02/11/2023 03/12/2024 1 1 Encounter Details Date Type Department Care Team (Late st Contact Info) Description 02/18/2023 1:30 PM CDT Office Visit [facility] Orthopedics and Sports Medicine [address] [facility] [address] [place] [address] [place] [address] [place] [address] [address] SHERIFF [address] [place] [address] Closed nondisplaced fracture of fifth metatarsal bone of left foot, initial encounter Social History Tobacco Use Types Packs/Day Years Used Date Smoking Tobacco: Never Smokeless Tobacco: Never Tobacco Cessation:Counseling Given: Not Answered [facility] Utilities Answer Date Recorded In the [...] often do you attend chur ch or congregation services? Never 02/11/2023 Do you belong to any clubs o r organizations such as bahai groups, unions, fraternal or athletic groups, or [...] place to sleep or slept in a longterm (including now)? No 02/11/2023 Personal Safety Answer Date Recorded Have you ever been in or are you currently in a harmful physical or emotional relationship or is someone making you feel afraid or unsafe? 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 NEW PATIENT VISIT Subjective CHIEF COMPLAINT She had concerns including Pain of the Left Foot. HISTORY OF PRESENT ILLNESS Patient presents for evaluation of her left foot. She unfortunately had a fall few weeks ago injuring her left foot. She did have x-rays taken ER showing a minimally displaced 5th metatarsal base fracture. Patient does have baseline dementia and is a poor historian. Her daughter is present on exam.Denies any other injuries. She is not complaining of any pain today. Pain Assessment Pain Assessment: 0-10 Pain Score: 3 Pain Location: Foot Pain Orientation: Left Pain Descriptors: Aching Pain Frequency: With movement/cough Pain Interventions: Home medication PAST MEDICAL HISTORY She has a past medical history of Coronary artery disease, Dementia (HCC), GERD (gastroesophageal reflux disease), and Hypertension. PAST SURGICAL HISTORY She has a past surgical history that includes Cardiac catheterization (N/A). MEDICATIONS She has a current medication list which includes the following prescription(s): ascorbic acid, calcium carbonate, cholestyramine-aspartame, repatha syringe, fluoxetine, hyoscyamine er, lansoprazole, loperamide, raloxifene, tramadol, amlodipine, and losartan. ALLERGIES She is allergic to ciprofloxacin, adhesive tape-silicones, and sulfa (sulfonamide antibiotics). SOCIAL HISTORY She reports that she has never smoked. She has never used smokeless tobacco. She reports current drug use. Drugs: Tobacco and Alcohol. No alcohol history on file. FAMILY HISTORY No family history on file. REVIEW OF SYSTEMS Constitutional: Negative for chills and fever. HENT: Negative for ear pain and sore throat. Eyes: Negative for pain and visual disturbance. Respiratory: Negative for shortness of breath and wheezing. Cardiovascular: Negative for chest pain and palpitations. Gastrointestinal: Negative for abdominal distention and abdominal pain. Genitourinary: Negative for dysuria and hematuria. Skin: Negative for pallor and rash. Neurological: Negative for syncope and numbness. Objective PHYSICAL EXAM Ht 162.6 cm (5' 4 ) Wt 68.5 kg (151 lb) BMI 25.92 kg/m?? Gen: No acute distress, well developed Head: Atraumatic Eyes: EOM are normal Ears: Hearing intact to spoken word Cardiovascular: Rate is regular Pulmonary: No respiratory distress Adominal: soft Neurologic: Patient oriented to person, place and time Psychiatric: Normal mood and affect MSK: Exam left foot shows mild swelling over the lateral midfoot. No pain with ankle or hindfoot motion. Tolerates stressing of the midfoot. Tenderness over her 5th metatarsal base. Pulses palpable. Skin intact REVIEW OF X-RAYS/STUDIES/LABS X-rays reviewed and interpreted today of the left foot showing minimally displaced 5th metatarsal base fracture. No other acute osseous abnormalities. Diffuse osteopenia Diagnoses and all orders for this visit: Closed nondisplaced fracture of fifth metatarsal bone of left foot, initial encounter - Ambulatory referral to Orthopedic Surgery Plan: Discussed x-ray and clinical findings with the patient. I will treat her 5th metatarsal base fracture with closed treatment. She was placed in a short Cam boot. She may weightbear to tolerance. She is okay to come out of the boot for sleeping and skin care. Follow up in 6 weeks with new x-rays. Anticipate transitioning into a shoe at that time. Goldy Hunt DO documented in this encounter Plan of Treatment Not on file documented as of this encounter Visit Diagnoses Diagnosis Closed nondisplaced fracture of fifth metatarsal bone of left foot, initial encounter documented in this encounter Orders Outpatient Referral Count Last Ordered Date Fir st Ordered Date AMB REFERRAL TO ORTHOPEDIC SURGERY 1 2022 documented in this encounter Care Teams Pantry Goods Worker Relationship Specialty Start Date End Date Saurabh Valerio MD [address] [facility] [address] [facility] [address] [place] [address] PCP - General Internal Medicine 10/18/22 documented as of this encounter
--- OUTSIDE RECORDS SUMMARY | 2024-05-01 13:46 | XMS_ITS | Encounter Summary ---
Author Organization [facility] Healthcare Address [address] [place] [address] Care Team Providers Care Direct Chill Casting Operator Name Role Phone Saurabh Valerio MD Primary Care Provider [phone] Reason for Visit * Reason Comments Confusion Fatigue Encounter Details Date Type Department Care Team (Late st Contact Info) Description 02/20/2024 3:11 PM CDT - 02/20/2024 6:41 PM CDT Emergency [facility] Emergency Department [address] [place] [address] Carlos Randolph MD [address] [place] [id number] Dementia, unspecified dementia severity, unspecified dementia type, unspecified whether behavioral, psychotic, or mood disturbance or anxiety (HCC) (Primary Dx) Discharge Disposition: Discharge to home or self care Social History Tobacco Use Types Packs/Day Years Used Date Smoking Tobacco: Never Smokeless Tobacco: Never [facility] Utilities Answer Date Recorded In the past 12 months has [employer] electric, gas, oil, or water company threatened [...] often do you attend chur ch or confucianist services? Never 12/02/2023 Do you belong to any clubs o r organizations such as methodist groups, unions, fraternal or athletic groups, or [...] place to sleep or slept in a detention (including now)? No 02/11/2023 Housing Stability Vital Sign Answer Dharmesh e Recorded In the last 12 months, was t here a time when you were not able to pay the mortgage or rent on time? No 12/02/2023 In the past 12 months, how m any times have you moved where you were living? 0 12/02/2023 At any time in the past 12 m [facility], were you homeless or living in a detention (including now)? No 12/02/2023 Personal Safety Answer Date Recorded Have you ever been in or are you currently in a harmful physical or emotional relationship or is someone making you feel afraid or unsafe? 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 * Attachments The following attachments cannot be sent through Care Everywhere. * Dementia (AfterCare(R) Instructions(ER/ED)) (Thai) documented in this encounter Medications at Time of Discharge acetaminophen (TYLENOL) 500 mg tablet Take 2 tablets (1,000 mg total) by mouth 2 (two) times a day as needed for pain cholecalciferol (VITAMIN D-3) 50,000 unit capsule Take 1 capsule (50,000 Units total) by mouth once a week cholestyramine-as partame (QUESTRAN LIGHT) 4 gram powder in packet Take 1 packet by mouth daily famotidine (PEPCID) 20 mg tablet Take 1 tablet (20 mg total) by mouth nightly FLUoxetine (PROzac) 20 mg tablet Take 1 tablet (20 mg total) by mouth daily lansoprazole (PREVACID) 30 mg capsule Take 1 capsule (30 mg total) by mouth every other day loperamide (IMODIUM) 2 mg capsule Take 1 capsule (2 mg total) by mouth every other day raloxifene (EVISTA) 60 mg tablet Take 1 tablet (60 mg total) by mouth daily documented as of this encounter Discharge Disposition Disposition Code Departure Means Destination Comment s Discharge to home or self care documented in this encounter ED Notes * Carlos Randolph MD - 02/20/2024 4:09 PM CDT HPI Chief Complaint Patient presents with Confusion Fatigue HPI 5:36 PM Emerald Villafana is a 88 y.o. female presenting to the ED [facility] from [facility] for evaluation lethargy and confusion. Symptoms ongoing for 3 days. Patient has known history of dementia. At the facility she had urinalysis done and was diagnosed with UTI. She is accompanied by her daughter and granddaughter nor history well. They described the symptoms have been worsening over last year since she moved into the facility and is now in a memory care. She also has a known history of hypertension and vertigo. Patient History: Past Medical History: Diagnosis Date Coronary artery [...] drug history Sexual activity: Not on file Alcohol Use: Not At Risk (11/30/2023) AUDIT-C Frequency of Alcohol Consumption: Never Average Number of Drinks: Patient does not drink Frequency of Binge Drinking: Never No current facility-administered medications for this encounter. Current Outpatient Medications: cholecalciferol (VITAMIN D-3) 50,000 unit capsule cholestyramine-aspartame (QUESTRAN LIGHT) 4 gram powder in packet famotidine (PEPCID) 20 mg tablet FLUoxetine (PROzac) 20 mg tablet lansoprazole (PREVACID) 30 mg capsule loperamide (IMODIUM) 2 mg capsule raloxifene (EVISTA) 60 mg tablet acetaminophen (TYLENOL) 500 mg tablet Review of Systems Review of Systems All other systems reviewed and are negative. All systems reviewed and are neg or non contributory for this patients presentation today other than as stated in the HPI . Physical Exam ED Triage Vitals [02/20/24 1520] Temp Pulse Resp BP SpO2 36.7 ??C (98 ??F) 83 16 (!) 136/113 96 % Temp src Heart Rate Source Patient Position BP Location FiO2 (%) Oral -- -- -- -- Height Height Method Weight Weight Method 1.575 m (5' 2.01 ) Stated 67.3 kg (148 lb 5.9 oz) Bed scale Physical Exam Vitals reviewed. HENT: Head: Normocephalic. Mouth/Throat: Mouth: Mucous membranes are moist. Pharynx: Oropharynx is clear. Eyes: Pupils: Pupils are equal, round, and reactive to light. Cardiovascular: Rate and Rhythm: Normal rate and regular rhythm. Heart sounds: Normal heart sounds. Pulmonary: Breath sounds: Normal breath sounds. Abdominal: Palpations: Abdomen is soft. Musculoskeletal: General: Normal range of motion. Cervical back: Neck supple. Neurological: General: No focal deficit present. Mental Status: She is alert. Cranial Nerves: No cranial nerve deficit. Psychiatric: Mood and Affect: Mood normal. Procedures MDM Labs Reviewed CBC WITH AUTO DIFFERENTIAL - Abnormal Result Value WBC 7.9 Hgb 13.0 Hct 41.5 Plt 175 MPV 10.9 RBC 4.24 MCV 97.9 (*) MCH 30.7 MCHC 31.3 (*) RDW CV 13.2 RDW SD 47.1 NRBC abs 0.00 COMPREHENSIVE METABOLIC PANEL - Abnormal Sodium 142 Potassium, pl 4.2 Chloride 105 CO2 29 Anion gap 8 BUN 19 Creatinine 1.10 Glucose 85 Calcium 9.2 Bilirubin, total 0.3 Protein, pl 6.4 (*) Albumin 3.5 Alk phos 83 ALT 9 AST 11 EGFR - Abnormal eGFR 49 (*) URINALYSIS AND REFLEX TO MICROSCOPIC AND CULTURE Color, ur Yellow Clarity, ur Clear Specific gravity, ur 1.018 pH, urine 5.0 Protein, ur ql Negative Glucose, ur ql Negative Ketones, ur Negative Bilirubin, ur Negative Blood, ur Negative Urobilinogen, ur <2.0 Nitrite, ur Negative Leukocyte esterase, ur Negative UA reflex comment Value: Reflex conditions for microscopic UA and culture not met. DIFFERENTIAL AUTO Neutrophil abs 5.0 Imm gran abs 0.0 Lymphocyte abs 2.0 Monocyte abs 0.6 Eosinophil abs 0.2 Basophil abs 0.0 Neutrophil pct 63.6 Imm gran pct 0.1 Lymphocyte pct 25.8 Monocyte pct 7.7 Eosinophil pct 2.[address] Head WO Contrast Final Result XR Chest 1 Vw Portable Final Result BP 166/97 Pulse 89 Temp 36.7 ??C (98 ??F) (Oral) Resp 15 Ht 157.5 cm (5' 2.01 ) Wt 67.3 kg (148 lb 5.9 oz) SpO2 94% BMI 27.13 kg/m?? MDM Amount and/or Complexity of Data Reviewed Clinical lab tests: reviewed Tests in the radiology section of CPT??: reviewed Risk of Complications, Morbidity, and/or Mortality Presenting problems: high Diagnostic procedures: high Management options: high General comments: Differential diagnosis includes dehydration, acute kidney injury, UTI, pneumonia,stroke. Workup so far reassuring. Vital signs are stable on room air. ED Course as of 02/20/24 1736 Time: 02/19 1601 Comment: Repeat blood pressure 154/91 By: Carlos Randolph MD Time: 02/19 1601 Comment: EKG at 1559 sinus rhythm rate 86 marked sinus arrhythmia no ST elevation or depression occasional PVC By: Carlos Randolph MD Time: 02/19 1714 Comment: EXAM DESCRIPTION: XR CHEST 1 VIEW REASON FOR STUDY: dyspnea Pt to ED via [facility] from [facility] Living for c/o increased fatigue and confusion [...] osseous abnormality. IMPRESSION: No acute cardiopulmonary abnormality. By: Carlos Randolph MD Time: 02/19 1735 Comment: CT Head: IMPRESSION: No acute intracranial findings. By: Carlos Randolph MD This examination was transcribed using the [employer] voice recognition system without human cutting table operator first. In an effort to expedite patient care, this report has not been adjusted for typographical, grammatical, and syntax by a trained biomedical instrument technician. Clinical Impression: Dementia, unspecified dementia severity, unspecified dementia type, unspecified whether behavioral,psychotic, or mood disturbance or anxiety ([facility]) Carlos Randolph MD 02/20/241735 * Eddy Kapoor RN - 02/20/2024 3:37 PM CDT Pt to ED via [facility] from [facility] Living for c/o increased fatigue and confusion x3days. Pt has hx of dementia and is baseline AO to self per step daughter but over past 3 days has been more confused than usual. Pt has also been sleeping more. EMS reports facility did a UA and it showed pt has UTI. Denies fever or any c/o pain. documented in this encounter Plan of Treatment Not on file documented as of this encounter Procedures Procedure [...] AUTO STAT 02/20/2024 3:3 5 PM CDT CBC WITH AUTO DIFFERENTIAL STAT 02/20/2024 3:35 PM CDT COMPREHENSIVE METABOLIC PANEL STAT 02/20/2024 3:35 PM CDT documented in this encounter Results * CT Head WO Contrast (02/20/2024 5:09 PM CDT) Anatomical Region Laterality Modality Head and Neck N/A Computed Tomogra phy 02/20/2024 5:23 PM CDT Narrative 02/20/2024 5:25 PM CDT EXAM DESCRIPTION: CT HEAD WO CONTRAST REASON FOR STUDY: Mental status change, unknown cause ?? Pt to ED via [facility] from [facility] Living for c/o increased fatigue and confusion [...] Electronically signed by ??Jeramie Grove M.D. KR: KR D: ??02/20/2024 5:25 PM T: ??02/20/2024 5:25 PM Report ID: [id number] Reading Location: ??[id number] Procedure Note Jeramie Grove MD - 02/20/2024 EXAM DESCRIPTION: CT HEAD WO CONTRAST REASON FOR STUDY: Mental status change, unknown cause Pt to ED via [facility] from [facility] for c/o increased fatigue and confusion x3 [...] Jeramie Grove M.D. KR: NICOLE Report ID: [id number] Reading Location: [id number] us Carlos Randolph MD IMG CT PROCEDURES Prema l Result * XR Chest 1 Vw Portable (02/20/2024 4:31 PM CDT) Anatomical Region Laterality Modality Body, Chest N/A Computed Radiogr aphy 02/20/2024 4:41 PM CDT Narrative 02/20/2024 4:41 PM CDT EXAM DESCRIPTION: XR CHEST 1 VIEW REASON FOR STUDY: dyspnea ?? Pt to ED via [facility] from [facility] for c/o increased fatigue and confusion x3 [...] PM T: ??02/20/2024 4:41 PM Report ID: [id number] Reading Location: ??[id number] Procedure Note Jeramie Grove MD - 02/20/2024 EXAM DESCRIPTION: XR CHEST 1 VIEW REASON FOR STUDY: dyspnea Pt to ED via [facility] from [facility] for c/o increased fatigue and confusion x3 [...] Electronically signed by Jeramie Grove M.D. KR: KR Report ID: [id number] Reading Location: [id number] Carlos Randolph MD IMG XR PROCEDURES Prema l Result * Urinalysis reflex to microscopic and culture Urine (02/20/2024 4:00 PM CDT) Color, ur Yellow Yellow Comment:Testing performed by : [address] [address] Clarity, ur Clear Clear KALANI Comment:Testing performed by : [address] [address] Specific gravity, ur 1.018 1.003 - 1.030 KALANI Comment:Testing performed by : [address] [address] pH, urine 5.0 KALANI Comment: Interpretive Data ? Urine pH is affected by diet, medications, systemic acid-base disturbances, and renal tubular function. ??pH may affect urinary stone formation. ??For example, urine pH below 6.0 may help reduce the tendency for calcium phosphate stones and pH greater than 6.0 may reduce the tendency for uric acid stone formation. Source: [facility] [email or web address] Current Interpretive Data was last revised on 2017 Testing performed by: [facility], [address] [place] [address]., [address] Protein, ur ql Negative Negative KALANI Comment:Testing performed by : [address] [address] Glucose, ur ql Negative Negative KALANI Comment:Testing performed by : [address], [place]., [address] Ketones, ur Negative Negative KALANI Comment:Testing performed by : [address], [place]., [address] Bilirubin, ur Negative Negative KALANI Comment:Testing performed by : [address] [address] Blood, ur Negative Negative KALANI Comment:Testing performed by : [address], [place]., [address] Urobilinogen, ur <2.0 <2.0 mg/dL KALANI Comment:Testing performed by : [address] [address] Nitrite, ur Negative Negative KALANI Comment:Testing performed by : [address] [address] Leukocyte esterase, ur Negative Negative KALANI Comment:Testing performed by : [address] [address] UA reflex comment Reflex conditions for microscopic UA and culture not met. KALANI Comment:Testing performed by : [address] [address] Urine 02/20/2024 4:00 PM CDT 02/20/2024 4:15 PM CDT us Carlos Randolph MD LAB MICROBIOLOGY - GEN ERAL ORDERABLES Final Result KALANI [id number] [facility] [place] [phone] * ECG 12 lead (02/20/2024 3:59 PM CDT) [facility] Ventricular Rate EKG/Min 86 BPM [facility] Atrial Rate 86 BPM [facility] [place]-Interval (MSEC) 140 ms [facility] QRS-Interval (MSEC) 74 ms [facility] QT-Interval (MSEC) 372 ms [facility] QTc 445 ms [facility] P [place] 79 degrees [facility] R [place] 49 degrees [facility] T [place] 80 degrees [facility] Diagnosis Sinus rhythm with marked sinus arrhythmia with occasional Premature ventricular complexes Nonspecific T wave abnormality Abnormal ECG When compared with ECG of 20-OCT-2022 09:28, Premature ventricular complexes are now Present Confirmed by ANA ROSA MUNOZ M.D. ([id number]) on 02/20/2024 11:46:15 PM [facility] 02/20/2024 3:59 PM CDT 02/20/2024 11:46 PM CDT us Carlos Randolph MD ECG ORDERABLES Final Result [facility] * (ABNORMAL) eGFR (02/20/2024 3:35 PM CDT) [facility] eGFR 49(L) >=60 mL/min/1. 73 m2 Comment: [...] was last reviewed 2021. Testing performed by: [address] [address] Blood 02/20/2024 3:35 PM CDT 02/20/2024 3:38 PM CDT us Carlos Randolph MD LAB BLOOD ORDERABLES F inal Result [place] [id number] [facility] [place] [address] * Differential, auto (02/20/2024 3:35 PM CDT) Neutrophil abs 5.0 1.5 - 6.5 K/cumm Comment:Testing performed by : [address] [address] Imm gran abs 0.0 0.0 - 0.1 K/cumm KALANI Comment:Testing performed by : [address] [address] Lymphocyte abs 2.0 0.8 - 3.3 K/cumm KALANI Comment:Testing performed by : [address] [address] Monocyte abs 0.6 0.2 - 0.8 K/cumm KALANI Comment:Testing performed by : [address] [address] Eosinophil abs 0.2 0.0 - 0.5 K/cumm KALANI Comment:Testing performed by : [address] [address] Basophil abs 0.0 0.0 - 0.1 K/cumm KALANI Comment:Testing performed by : [address] [address] Neutrophil pct 63.6 % KALANI Comment: Interpretive Data Percent cell count reference ranges are not reported, since discordance with absolute values may lead to misinterpretation of CBC data. Current Interpretive Data was last revised on 2017. Testing performed by: [address] [address] Imm gran pct 0.1 % KALANI Comment: Interpretive Data Percent cell count reference ranges are not reported, since discordance with absolute values may lead to misinterpretation of CBC data. Current Interpretive Data was last revised on 2017. Testing performed by: [address] [address] Lymphocyte pct 25.8 % KALANI Comment: Interpretive Data Percent cell count reference ranges are not reported, since discordance with absolute values may lead to misinterpretation of CBC data. Current Interpretive Data was last revised on 2017. Testing performed by: [address] [address] Monocyte pct 7.7 % [facility] Comment: Interpretive Data Percent cell count reference ranges are not reported, since discordance with absolute values may lead to misinterpretation of CBC data. Current Interpretive Data was last revised on 2017. Testing performed by: [address] [address] Eosinophil pct 2.4 % [facility] Comment: Interpretive Data Percent cell count reference ranges are not reported, since discordance with absolute values may lead to misinterpretation of CBC data. Current Interpretive Data was last revised on 2017. Testing performed by: [address] [address] Basophil pct 0.4 % [facility] Comment: Interpretive Data Percent cell count reference ranges are not reported, since discordance with absolute values may lead to misinterpretation of CBC data. Current Interpretive Data was last revised on 2017. Testing performed by: [address] [address] Blood 02/20/2024 3:35 PM CDT 02/20/2024 3:38 PM CDT us Carlos Randolph MD LAB BLOOD ORDERABLES F inal Result KALANI [address] [facility] Department [place] [address] * (ABNORMAL) Comprehensive metabolic panel (02/20/2024 3:35 PM CDT) Sodium 142 135 - 145 mmol/L Comment:Testing performed by : [address] [address] Potassium, pl 4.2 3.3 - 4.9 mmol/L KALANI Comment:Testing performed by : [address] [address] Chloride 105 97 - 110 mmol/L KALANI Comment:Testing performed by : [address] [address] CO2 29 22 - 32 mmol/L KALANI Comment:Testing performed by : [address] [address] Anion gap 8 2 - 15 mmol/L KALANI Comment:Testing performed by : [address] [address] BUN 19 6 - 25 mg/dL KALANI Comment:Testing performed by : [address] [address] Creatinine 1.10 0.60 - 1.10 mg/dL KALANI Comment:Testing performed by : [address] [address] Glucose 85 70 - 199 mg/dL KALANI [...] was last revised 2022. Testing performed by: [address] [address] Calcium 9.2 8.5 - 10.3 mg/dL KALANI Comment:Testing performed by : [address] [address] Bilirubin, total 0.3 0.1 - 1.2 mg/dL KALANI Comment:Testing performed by : [address] [address] Protein, pl 6.4(L) 6.5 - 8.5 g/dL KALANI Comment:Testing performed by : [address] [address] Albumin 3.5 3.5 - 5.0 g/dL KALANI Comment:Testing performed by : [address], [address] Alk phos 83 40 - 130 Units/L KALANI Comment:Testing performed by : [address] [address] ALT 9 7 - 45 Units/L KALANI Comment:Testing performed by : [address] [address] AST 11 10 - 45 Units/L KALANI Comment:Testing performed by : [address] [address] Blood 02/20/2024 3:35 PM CDT 02/20/2024 3:38 PM CDT us Carlos Randolph MD LAB BLOOD ORDERABLES F inal Result [facility] [address] [facility] Department [place] [address] * (ABNORMAL) CBC with auto differential (02/20/2024 3:35 PM CDT) [facility] WBC 7.9 3.8 - 9.9 K/cumm Comment:Testing performed by : [address] [address] Hgb 13.0 11.9 - 15.5 g/dL KALANI Comment:Testing performed by : [address] [address] Hct 41.5 35.6 - 45.5 % KALANI Comment:Testing performed by : [address] [address] Plt 175 150 - 400 K/cumm KALANI Comment:Testing performed by : [address] [address] MPV 10.9 9.1 - 12.3 fL KALANI Comment:Testing performed by : [address] [address] RBC 4.24 3.90 - 5.20 M/cumm KALANI Comment:Testing performed by : [address] [address] MCV 97.9(H) 81.3 - 96.4 fL KALANI Comment:Testing performed by : [address] [address] MCH 30.7 27.1 - 33.3 pg KALANI Comment:Testing performed by : [address] [address] MCHC 31.3(L) 32.3 - 35.7 g/dL KALANI Comment:Testing performed by : [address] [address] RDW CV 13.2 11.1 - 14.9 % KALANI Comment:Testing performed by : [address] [address] RDW SD 47.1 35.7 - 48.1 fL KALANI Comment:Testing performed by : [address] [address] NRBC abs 0.00 0.00 - 0.01 K/cumm KALANI Comment:Testing performed by : [address] [address] Blood 02/20/2024 3:35 PM CDT 02/20/2024 3:38 PM CDT us Carlos Randolph MD LAB BLOOD ORDERABLES F inal Result [facility] [address] [facility] [place] [address] documented in this encounter Visit Diagnoses Diagnosis Dementia, unspecified dementia severity, unspecified dementia type, unspecified whether behavioral, psychotic, or mood disturbance or anxiety (HCC)- Primary documented in this encounter Discontinued Medications Medication Sig Discontinue Reason Start Date End Da te loperamide (IMODIUM) 2 mg capsule Take 1 capsule (2 mg total) by mouth 4 (four) times a day as needed for diarrhea Alternate therapy 04/06/2021 02/20/2024 evolocumab (Repatha Syringe) syringe syringe Inject 1 mL (140 mg total) under the skin every 14 (fourteen) days On Therapy completed 02/20/2024 calcium carbonate (OS-JEROD) 1,500 mg (600 mg elemental) tablet Take 1 tablet (1,500 mg total) by mouth 2 (two) times a day Therapy completed 02/20/2024 ascorbic acid 500 mg tablet,chewable Take 1 tablet/chew tab (500 mg total) by mouth 2 (two) times a day Therapy completed 02/20/2024 hyoscyamine ER (LEVBID) 0.375 mg 12 hr tabletIndications:diarr hea Take 1 tablet (0.375 mg total) by mouth daily Therapy completed 02/20/2024 traMADoL (ULTRAM) 50 mg tablet Take 1 tablet (50 mg total) by mouth every 8 (eight) hours as needed for pain Therapy completed 02/11/2023 02/20/2024 documented as of this encounter Historical Medications * This list may reflect changes made after this encounter. acetaminophen (TYLENOL) 500 mg tablet Take 2 tablets (1,000 mg total) by mouth 2 (two) times a day as needed for pain famotidine (PEPCID) 20 mg tablet Take 1 tablet (20 mg total) by mouth nightly cholecalciferol (VITAMIN D-3) 50,000 unit capsule Take 1 capsule (50,000 Units total) by mouth once a week loperamide (IMODIUM) 2 mg capsule Take 1 capsule (2 mg total) by mouth every other day added in this encounter Orders Nursing Count Last Ordered Date First Orde red Date CONTINUOUS PULSE OXIMETRY 1 02/20/2024 IV Count Last Ordered Date First Orde red Date SALINE LOCK IV 1 02/20/2024 documented in this encounter Care Teams Direct Chill Casting Operator Relationship Specialty Start Date End Date Saurabh Valerio MD [address] [facility] [address] [place] [address] PCP - General Internal Medicine 10/18/22 documented as of this encounter
--- OUTSIDE RECORDS SUMMARY | 2024-05-01 13:47 | XMS_ITS | Encounter Summary ---
Author Organization [facility] Healthcare Address [address] [place] [address] Care Team Providers Care Enamel Buffer Name Role Phone Unavailable Primary Care Provider Unavailabl e Encounter Details Date Type Department Care Team (Latest Contact Info) Description 01/30/2017 10:12 AM CDT - 01/30/2017 11:59 PM CDT Hospital Encounter [facility] Devin Avery, OFFICE SERVICES MANAGER [id number] [facility] [address] [place] [address] Discharge Disposition: Discharge to home or self care Social History Tobacco Use Types Packs/Day Years Used Date Smoking Tobacco: Never Assessed Comments Unknown Sex and Gender Information Value Date Recorded Sex Assigned at Not on file 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 Gender Identity Not on file Sexual Orientation Not on file documented as of this encounter Discharge Disposition Disposition Code Departure Means Destination Discharge to home or self care documented in this encounter Plan of Treatment Not on file documented as of this encounter Procedures Procedure Name Priority Date/Time Associated Diagnosis Comments XR CHEST PA LATERAL 2 VIEWS Routine 01/30/2017 3:30 PM CDT documented in this encounter Results * XR Chest Pa Lateral 2 Views (01/30/2017 3:30 PM CDT) Anatomical Region Laterality Modality Body, Chest N/A Radiographic Chyna ging 01/30/2017 3:30 PM CDT Narrative 01/30/2017 3:30 PM CDT DATE OF EXAM: ??Jan 30 2017 10:30AM Acc#: ??[id number] ??EDX [id number] - XR Chest 2 Views ?? DIAGNOSIS: ??CHEST-X-RAY CLINICAL HISTORY: ?? SOB RESULT: HISTORY: The patient is an 81-year-old female who presents with shortness of breath. TECHNIQUE: PA and lateral view of the chest. FINDINGS: Lungs clear. ??Heart not enlarged. ??Aortic atherosclerosis. ??No failure. IMPRESSION: No active disease. Electronically signed by: Luiz Lucero M.D. ? PROPERTY MAN: ??PSC TRANSCRIBE DATE/TIME: ??Jan 30 2017 10:47A RADIOLOGIST: ??LUIZ LCUERO M.D. ??READ ON: ??Jan 30 2017 10:49A ORDERING DR: DEVIN AVERY ([facility]) Melany ? THIS DOCUMENT HAS BEEN ELECTRONICALLY SIGNED BY: ??CHRYSTAL Mosley, LUIZ ??ON: ??Jan 30 2017 10:47A Attending: ??GENA ([facility]), ??DEVIN Requesting: ??GENA ([facility]), ??DEVIN Requesting Fax: ??[phone] Attending Fax: ??[phone] Attending ID: ??[id number] Requesting ID: ??[id number] Report To 1 ID: ?? Report To 1 Name: ??, ?? Report To 1 FAX: ??-- Report To 2 ID: ?? Report To 2 Name: ??, ?? Report To 2 FAX: ??-- NextGen Order #: ?? Procedure Note Miscellaneous, Not In File / Provider, MD Sonny - 01/30/2017 DATE OF EXAM: Jan 30 2017 10:30AM Acc#: [id number] EDX [id number] - XR Chest 2 Views DIAGNOSIS: CHEST-X-RAY CLINICAL HISTORY: SOB RESULT: HISTORY: The patient is an 81-year-old female who presents with shortness of breath. TECHNIQUE: PA and lateral view of the chest. FINDINGS: Lungs clear. Heart not enlarged. Aortic atherosclerosis. No failure. IMPRESSION: No active disease. Electronically signed by: Luiz Lucero M.D. PROPERTY MAN: PSC TRANSCRIBE DATE/TIME: Jan 30 2017 10:47A RADIOLOGIST: LUIZ LUCERO M.D. READ ON: Jan 30 2017 10:49A ORDERING DR: DEVIN AVERY ([facility]) Melany THIS DOCUMENT HAS BEEN ELECTRONICALLY SIGNED BY: LUIZ LUCERO M.D. ON: Jan 30 2017 10:47A Attending: GENA ([facility])DEVIN Requesting: GENA ([facility])DEVIN Requesting Attending Attending ID: [id number] Requesting ID: [id number] Report To 1 ID: Report To 1 Name: , Report To 1 FAX: -- Report To 2 ID: Report To 2 Name: , Report To 2 FAX: -- NextGen Order #: Devin Avery OFFICE SERVICES MANAGER IMG XR PROCEDURES Final Result documented in this encounter Visit Diagnoses Not on filedocumented in this encounter
--- OUTSIDE RECORDS SUMMARY | 2024-05-01 13:47 | XMS_ITS | Encounter Summary ---
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 Gender Identity Not on file Sexual Orientation Not on file documented as of this encounter Plan of Treatment Not on file documented as of this encounter Procedures Procedure Name Priority Date/Time Associated Diagnosis Comments PLASMA PROTHROMBIN TIME (PT) Routine 07/20/2013 9:15 AM CDT documented in this encounter Results * Plasma prothrombin time (PT) (07/20/2013 9:15 AM CDT) Prothrombin time (PT) 13.6 11.5 - 15.5 seconds HISTORICAL RESULTS INR 1.00 0.81 - 1.21 HISTORIC AL RESULTS Plasma 07/20/2013 9:15 AM CDT us Historical Provider LAB BLOOD ORDERABLES Prema cornejo Result HISTORICAL RESULTS documented in this encounter Visit Diagnoses Not on filedocumented in this encounter
--- OUTSIDE RECORDS SUMMARY | 2024-05-01 13:47 | XMS_ITS | Encounter Summary ---
Author Organization [facility] Healthcare Address [address] [place] [address] Care Team Providers Care Curb Hop Name Role Phone Saurabh Valerio MD Primary Care Provider [phone] Reason for Visit * Reason Comments Weakness - Generalized * Auth/Cert (Routine) Specialty Diagnoses / Procedures Referred By Contac t Referred To Contact Diagnoses Syncope, unspecified syncope type Procedures na Referral ID Status Reason Start Date Expiration Date Visits Re quested Visits Authorized [id number] 1 1 Encounter Details Date Type Department Care Team (Latest Contact Info) Description 10/18/2022 3:29 PM CDT - 10/21/2022 11:30 AM CDT Hospital Encounter [facility] 5 Med Surg [facility]4 [place] [address] Yahir Pickett, [address] [place] [address] Ken Lennon MD [address] [place] [address] [place] [address] Melchor Rangel MD [address] [place] [address] [place] [address] Rosemary Espitia MD [address] [place] [address] [address] [place], [place] [id number] Syncope, unspecified syncope type (Primary Dx); Syncope and collapse; Fall, subsequent encounter Discharge Disposition: Discharge to care home facility Social History Tobacco Use Types Packs/Day Years Used Date Smoking Tobacco: Unknown Social Connection and Isolat ion Panel [NHANES] Answer Date Recorded In a typical week, how many times do you talk on the phone with family, friends, or neighbors? More than three times a week 10/19/2022 How often do you get togethe r with friends or relatives? More than three times a week 10/19/2022 How often do you attend chur ch or mandaen services? Never 10/19/2022 Do you belong to any clubs o r organizations such as worship groups, unions, fraternal or athletic groups, or school groups? No 10/19/2022 How often do you attend meet ings of the clubs or organizations you belong to? Never 10/19/2022 Are you , , di vorced, , never , or living with a partner? 10/19/2022 Overall Financial Resource Strain (CARDIA) Answe r Date Recorded How hard is it for you to pa y for the very basics like food, housing, medical care, and heating? Not hard at all 10/19/2022 Hunger Vital Sign Answer Date Recorded Within the past 12 months, y ou worried that your food would run out before you got the money to buy more. Never true 10/20/19 23 Within the past 12 months, t he food you bought just didn't last and you didn't have money to get more. Never true 10/19/2022 PRAPARE - Transportation Answer Date Re corded In the past 12 months, has l ack of transportation kept you from medical appointments or from getting medications? No 09/22 In the past 12 months, has l ack of transportation kept you from meetings, work, or from getting things needed for daily living? No 10/19/2022 Housing Stability Vital Sign Answer Dharmesh e Recorded In the last 12 months, was t here a time when you were not able to pay the mortgage or rent on time? No 10/19/2022 Number of Places Lived in the Last Year Not on f ile 10/19/2022 In the last 12 months, was t here a time when you did not have a steady place to sleep or slept in a custodial (including now)? 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 Gender Identity Not on file Sexual Orientation Not on file documented as of this encounter Last Filed Vital Signs Vital Sign Reading Time Taken Comments Blood Pressure 166/84 10/21/2022 9:50 AM CDT Blood pressure re-check Pulse 95 10/21/2022 7:00 AM CDT Temperature 36.9 ??C (98.5 ??F) 10/21/2022 7 :00 AM CDT Respiratory Rate 16 10/21/2022 7:00 AM CDT Oxygen Saturation 95% 10/21/2022 7:0 0 AM CDT Inhaled Oxygen Concentration - - Weight 65 kg (143 lb 6.4 oz) 10/21/2022 5:45 AM CDT Height 157.5 cm (5' 2 ) 10/18/2022 10:5 0 PM CDT Body Mass Index 26.23 10/18/2022 10:50 PM CDT documented in this encounter Discharge Summaries * Rosemary Espitia MD - 10/21/2022 9:55 AM CDT Images from the original note were not included. Inpatient Discharge Summary Patient Name - Emerald Myers Patient Age - 87 yrs Patient - [id number] [facility] - [id number] Document Creation Date: 10/21/2022 Admitting Provider, : Rosemary Espitia MD Discharge Provider, MD: Rosemary Espitia MD Primary Care Physician at Discharge: Saurabh Valerio MD [phone] Admission Date: 10/18/2022 Discharge Date/time: 10/21/2022 Admission Location: [facility] LOS - LOS: 2 days DETAILS OF HOSPITAL STAY Hospital Problems/Diagnoses Principal Problem: Syncope and collapse Active Problems: Syncope, unspecified syncope type Dyspnea on exertion Falls Pure hypercholesterolemia Elevated troponin Reason for Hospitalization: ? Syncope Fall Elevated blood pressure Possible early dementia Hyperlipidemia Hospital Course: This is 87-year-old female with past medical history of GERD, anxiety/depression, possible developing dementia brought to emergency room with complaint of syncopal episode. Patient alert and orientedto time place and person. However she needs prompting to discuss reason for presentation to emergency room. Granddaughter present at bedside. Patient has had frequent falls over past 24 hour described as syncopal episodes. Patient endorsed that she was ambulating from bathroom, went to closet to filler picker a blouse. She was standing there picked 1 out but then turned back to see if there was something else she wanted to wear. She states next thing she recalls is being on the floor. She does not recall falling to the ground. She does endorse hitting her head. Denies any pain or bony injury at current. Denies any chest pain, shortness a breath, palpitation, diaphoresis, nausea, vomiting, headache, lightheadedness, dizziness, fever chills. Granddaughter present at bedside stated patient moved to assisted living facility approximately a year ago. When she moves she was pretty independent with no confusion and memory issue. However over past 6-8 months it seems the patient has been declining cognitively in family's concern about patient developing dementia. Patient admitted initial assessment of syncope, fall. CT head was negative for any acute intracranial pathology. Patient had no symptoms of acute coronary syndrome with no chest breath EKG was negative for ischemia. Troponin for negative. Patient did not meet criteria for sepsis or infection either. Chest x-ray was negative, UA was negative, exam was unremarkable. No sign or symptom of skin infection. Electrolytes within acceptable range no hypo or hyperglycemia noted. Oxygen level was normal. Hemoglobin was within acceptable range. Patient did not show any evidence of cardiac arrhythmia or seizure activity. No new recent medication started that will indicate recurrent fall or syncopal episode. Cardiology consultation was requested for further evaluation. Patient underwent cardiac stress testing which was negative, echocardiogram showed normal ejection fraction. Antihypertensive meds were adjusted during this hospitalization. She also had an EEG performed: Discussed with Dr. Fernandes. Per verbal report EEG is normal. Carotid Doppler is negative for any significant stenosis. No further workup planned during this hospitalization. Patient also evaluated by PT/OT for recurrent fall. Repeat/OT assessment she can be discharged backto assisted living facility. Plan of care discussed with patient's granddaughter: Who reported that patient can continue to get PT/OT at assisted living facility. Encouraged to use cane or walker/assistive device for ambulation Patient is hemodynamically stable for discharge today. Discharge Details Physical Exam at Discharge: Discharge Condition: stable Pulse: 95 Resp: 16 BP: 166/84 (Blood pressure re-check) Temp: 36.9 ??C (98.5 ??F) Weight: 65 kg (143 lb 6.4 oz) Pertinent Exam Findings at Discharge: General Exam: No acute distress Resting in bed Appears pleasant Does not appear to be in pain Ears, Nose, Mouth, Throat: Ext. ears & nose normal, Moist mucous membranes Neck: Supple Cardiovascular: Normal range, Regular rhythm, S1S2 normal. ABSENT: Edema Respiratory: CTA bilaterally, Effort normal ABSENT: Crackles, Rhonchi Abdomen: Bowel sounds present, Soft. ABSENT: Mass, Tenderness, Distention Neurological: No focal deficit Psychiatric: Affect appropriate, Alert Psychiatric - Orientation: Oriented to: Place, Person Discharge Disposition: Discharge to home or self care Code Status at Discharge: Full Code Active Issues & Recommended Plan for Follow-up: Allergies: Ciprofloxacin, Adhesive tape-silicones, and Sulfa (sulfonamide antibiotics) Discharge Medications: Your medication list START taking these medications Instructions Last Dose Given Next Dose Due amLODIPine 10 mg tablet Commonly known as: NORVASC Start taking on: October 22, 2022 10 mg, oral, Daily losartan 50 mg tablet Commonly known as: COZAAR Start taking on: October 22, 2022 50 mg, oral, Daily CONTINUE taking these medications Instructions Last Dose Given Next Dose Due ascorbic acid 500 mg tablet,chewable Commonly known [...] PREVACID 30 mg, oral, Every other day loperamide 2 mg capsule Commonly known as: IMODIUM 2 mg, oral, 4 times daily PRN raloxifene 60 mg tablet Commonly known as: EVISTA 60 mg, oral, Daily Repatha Syringe syringe syringe Generic drug: evolocumab 140 mg, subcutaneous, Every 14 days, On Where to Get Your Medications These medications were sent to [facility] [place], [place] - [address] [facility] [id number] amLODIPine 10 mg tablet losartan 50 mg tablet Time Spent in Discharge Process: I have spent 40 minutes on discharge planning activities. Test Results Pending at Discharge (If Blank, None Found): Operative Procedures Performed (If Blank, None Found): Outpatient Follow-Up: Contact Information for Follow-ups Lore Hendrickson MD Specialty: Interventional Cardiology, Cardiovascular Disease, Nuclear Medicine, Internal Medicine [address] [facility] [address] [facility] [address] Next Steps: Follow up in 2 week(s) Saurabh Valerio MD Specialty: Internal Medicine Relationship: PCP - General [address] [place] [address] [address] [facility] [address] Next Steps: Follow up [facility] Home Care Services Specialty: Home Health and Hospice [address] [facility] [address] Next Steps: Follow up Questions: Service Line: Home Health Primary disciplines requested: Physical Therapy Secondary disciplines requested: Occupational Therapy Home Health Services: Therapy to Eval/Tx Therapy instructions: Evaluation/treatment Requested Start of Care Date: 24-48 hours Physician to follow patient's care (the person listed here will be responsible for signing ongoing orders): PCP I attest that I or another qualified licensed provider saw the patient 90 days prior to or 30 days post admission and this face to face encounter meets the necessary Home Health requirements. The face to face encounter occurred on (date): 10/21/2022 The encounter with the patient was in whole, or in part, for the following medical condition, whichis the primary reason for home health care. (List medical condition): Recurrent fall I certify that, based on my findings, the following services are medically necessary skilled home health services: Therapy to Eval/Tx Clinical findings that support the need for home care: Medical condition requiring skilled assessment/education I certify that my clinical findings support patient's homebound status. Homebound criteria met because: Poor endurance Referral Status: Pending Authorization Please schedule an appointment with the following provider(s): Lore Hendrickson MD [address] [facility] [place] [address] [facility] [address] Follow up in 2 week(s) Saurabh Valerio MD [address] [place] [address] [facility] [address] Follow up [facility] Home Care Services [address] [facility] [address] ANCILLARY INFORMATION Other Procedures & Diagnostic Tests: US Carotids Duplex Bilateral Result Date: 10/20/2022 Amphion Job ID: [id number] Amphion Document ID: [id number] Dictated date/time: [id number] REASON FOR STUDY Syncope. Vertebral artery flow is antegrade bilaterally. There is minimal plaque in both internal carotid arteries of less than 50% diameter stenoses. There is no significant increase in peak systolic velocity in either internal carotid artery. The peak systolic velocity on the right is58 cm/sec and on the left is 100 cm/sec. The external carotid and common carotid artery velocities are normal bilaterally. IMPRESSION No significant stenosis in either internal carotid artery. Job ID/Internal Job ID: [id number] Transthoracic Echo (TTE) Complete W Doppler/CF Result Date: 10/19/2022 Adult Echocardiogram + + :Name: EMERALD MYERS Study Date: 10/19/2022 Status: [facility] : : Patient Location: [address]^[id number]^eit: in : : Weight: 146 lbBP: 149/86 mmHg: :: 1935 Gender: Female BSA: 1.7 m2 : :Reason For Study: Syncope : :Ordering Physician: : :MELCHOR RANGEL : : : :Performed By: Isabel Vasquez, : :RDCS/RVT : +---- + Procedure A two-dimensional transthoracic echocardiogram with color flow and Doppler was performed. Left Ventricle The left ventricle is normal in size. Frfg-pp-cdqwuddg concentric left ventricular hypertrophy. Left ventricular systolic function is normal. Ejection Fraction = 55-60%. The left ventricular wall motion is normal. Right Ventricle The right ventricle is normal size. The right ventricular systolic function is normal. Atria The left atrial size is normal. Right atrial size is normal.Mitral Valve The mitral valve is normal. There is trace mitral regurgitation. Tricuspid Valve The tricuspid valve is normal. There is trace tricuspid regurgitation. Right ventricular systolic pressure is '24-29' mm/HG. Right ventricular systolic pressure is normal. Aortic Valve Aortic valve structure is normal. No aortic stenosis . Aortic valve velocity is 109 cm/s. LVOT velocity is 56 cm/s. Mildaortic regurgitation. Pulmonic Valve The pulmonic valve is not well visualized. Pulmonic valve veloc ity is 71 cm/s. RVOT velocity is 63 cm/s. Mild pulmonic valvular regurgitation. Great Vessels The aortic root is normal size. IVC appears normal in size. Pericardium There is no pericardial effusion.Diastology Mitral inflow shows reversal of E/A ratio, suggestive of diastolic dysfunction of left ventricle. E/E prime ratio is 8 -15 which is in the indeterminate zone. Grade I diastolic dysfunction, (abnormal relaxation pattern). Interpretation Summary Kejo-bx-tcugfidu concentric left ventricularhypertrophy Left ventricular systolic function is normal. Ejection Fraction = 55-60%. The right ventricle is normal size. The right ventricular systolic function is normal. Right ventricular systolicpressure is normal. Mild aortic regurgitation. Mild pulmonic valvular regurgitation. Grade I diastolic dysfunction, (abnormal relaxation pattern). + + :Measurements with Normals : : (0.6-1.2 LVIDd: (3.5- 5.7 Ao root diam: (2.0-3.7 : :IVSd: 1.4 cmcm) 3.9 cm cm) 3.3 cm cm) : :LVPWd: (0.6-1.1 LVIDs: (3.1-4.6 LA dimension: (1.9-4.0 : :1.2 cm cm) 2.7 cm cm) 3.2 cm cm) : + + MMode/2D Measurements & Calculations FS: 29.6 % Ao root area: LVOT diam: 2.0 cm LVLd ap4: 8.3 cm EDV(Teich): 65.5 ml 8.6 cm2 LVOT area: EDV(MOD-sp4): ESV(Teich): 28.0 ml 3.1 cm2 56.4 ml LVLs ap4: 7.6 cm ESV(MOD- sp4): 30.2 ml EF(MOD-sp4): 46.5 % SV(MOD-sp4): EF (BP): 42.1 % 26.2 ml Doppler Measurements & Calculations MV E max ruby: Ao V2 max: AI max ruby: LV V1 max P.8 cm/sec 109.0 cm/sec 356.0 cm/sec 1.3 mmHg MV A max ruby: Ao max PG: AI max P.7 mmHg LV V1 max: 72.4 cm/sec 4.8 mmHg AI decslope: 56.1 cm/sec MV E/A: 0.72 JERRY(V,D): 1.6 cm2 200.0 cm/sec2 AI P1/2t: 521.3 msec TV V2 max: PA V2 max: RV V1 max: TR max ruby: 31.3 cm/sec 70.6 cm/sec 63.0 cm/sec 216.0 cm/sec TV max PG: PA max PG: TR max P.39 mmHg 2.0 mmHg 18.7 mmHg RVSP(TR): 21.7 mmHg RAP systole: 3.0 mmHg Electronically signed by: Lore Hendrickson MD 10/19/2022 04:41 PM XR Hip Right 2 or 3 Views Result Date: 10/18/2022 EXAM DESCRIPTION: XR HIP RIGHT 2 OR 3 VIEWS REASON FOR STUDY: pain Pt states fall today having painTECHNIQUE: 2 radiographic view(s) of the right hip . COMPARISON: None FINDINGS: Overlying soft tissue on the frontal view limits evaluation. There appears to be grossly normal alignment. No definite fracture. Mild right hip osteoarthritis. IMPRESSION: 1. No gross acute osseous abnormality. THIS ISAN ELECTRONICALLY VERIFIED FINAL REPORT 10/18/2022 6:33 PM - Electronically signed by Oneil Puckett M.D. AG: [email or web address] Report ID: [id number] Reading Location: [id number] CT Head WO Contrast Result Date: 10/18/2022 EXAM DESCRIPTION: CT HEAD WO CONTRAST REASON FOR STUDY: multiple falls, confusion Table formattingfrom the original note was not included. Pt arrived from [facility] via EMS. EMS states multiple falls over past 24 hours. HBP. Some skin tears Pt A. Pt c/o multiple falls, unsure if she fell or hit her head. Denies CP, new shortness of breath. TECHNIQUE: Axial images acquired through the brain without intravenous contrast. Images stored on PACS. Automated exposure control was used as a dose optimization technique for this examination. COMPARISON: None FINDINGS: BRAIN: No hemorrhage, edema or mass effect. No recent infarct. Generalized atrophy and periventricular microvascular white matter isc hemic change. 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 EXTRA-AXIAL SPACES: No fluid collections. No masses. CALVARIUM: No fracture. SINUSES/MASTOIDS: No fluid or mucosalthickening. ORBITS: No significant abnormality. OTHER: No other significant abnormality. IMPRESSION: No acute intracranial findings. THIS IS AN ELECTRONICALLY VERIFIED FINAL REPORT 10/18/2022 5:40 PM - Electronically signed by Jeramie Berkowitz M.D. KT: ANI Report ID: [id number] Reading Location: [id number] XR Chest 1 Vw Portable Result Date: 10/18/2022 EXAM DESCRIPTION: XR CHEST 1 VIEW REASON FOR STUDY: weakness, multiple falls over last 24 hours Pt arrived from [facility] via EMS. EMS states multiple falls over past 24 hours. 128 BG. 18G L AC. HBP.Some skin tears Pt A. Pt c/o multiple falls, unsure if she fell or hit her head. Denies CP, new shortness of breath. TECHNIQUE: Single frontal radiographic view(s) of the chest. COMPARISON: 04/05/2021 FINDINGS: The heart, mediastinum, and pulmonary vasculature are grossly stable. There are mild atherosclerotic changes of the aorta. There is no definite evidence of a pneumothorax. There is no definite evidence of a focal consolidation or pleural effusion. There are scattered calcified granulomas noted. The osseous structures are acutely grossly stable. IMPRESSION: No acute cardiopulmonary abnormality. THIS IS AN ELECTRONICALLY VERIFIED FINAL REPORT 10/18/2022 4:25 PM - Electronically signedby Dyan Lennon D.O. PS: PS Report ID: [id number] Reading Location: [id number] Recent Labs: Recent Labs Lab Units 10/19/22 02410/18/22 1541 WBC K/cumm 7.7 6.8 HEMOGLOBIN g/dL 13.4 14.1 HEMATOCRIT % 41.0 43.2 PLATELETS K/cumm 176 202 Recent Labs Lab Units 10/19/22 0245 10/18/22 1541 WBC K/cumm 7.7 6.8 HEMOGLOBIN g/dL 13.4 14.1 HEMATOCRIT % 41.0 43.2 PLATELETS K/cumm 176 202 NEUTROS PCT % -- 67.2 LYMPHS PCT % -- 23.9 MONOS PCT % -- 6.6 EOS PCT % -- 1.6 Recent Labs Lab Units 10/20/22 04310/19/22 0245 10/18/22 1541 SODIUM mmol/L 141 141 141 POTASSIUM PLASMA mmol/L 3.9 3.7 4.0 CHLORIDE mmol/L 106 108 106 CO2 mmol/L 26 22 25 BUN SERUM mg/dL 16 14 13 CREATININE mg/dL 1.00 0.90 1.10 [id number] mL/min/1.73 m2 55 62 49 GLUCOSE mg/dL 93 91 114 CALCIUM mg/dL 8.7 8.8 9.1 ALBUMIN g/dL 3.0* 3.2* 3.5 PHOSPHORUS PLASMA mg/dL -- 3.5 -- Recent Labs Lab Units 10/20/22 04310/19/22 0245 10/18/22 1541 SODIUM mmol/L 141 141 141 POTASSIUM PLASMA mmol/L 3.9 3.7 4.0 CHLORIDE mmol/L 106 108 106 CO2 mmol/L 26 22 25 ANIONGAP mmol/L 9 11 10 GLUCOSE mg/dL 93 91 114 BUN SERUM mg/dL 16 14 13 CREATININE mg/dL 1.00 0.90 1.10 CALCIUM mg/dL 8.7 8.8 9.1 ALBUMIN g/dL 3.0* 3.2* 3.5 ALK PHOS Units/L 67 70 68 ALT Units/L 8 7 8 AST Units/L 12 12 13 BILIRUBIN TOTAL mg/dL 0.4 0.3 0.4 Recent Labs Lab Units 10/20/22 0431 10/19/22 0245 10/18/22 1541 ALK PHOS Units/L 67 70 68 BILIRUBIN TOTAL mg/dL 0.4 0.3 0.4 TOTAL PROTEIN g/dL 5.7* 6.0* 6.5 ALT Units/L 8 7 8 AST Units/L 12 12 13 Recent Labs Lab Units 10/19/22 0245 MAGNESIUM mg/dL 2.1 Lab Results Component Value Date GLUCOSE 93 10/20/2022 GLUCOSE 91 10/19/2022 GLUCOSE 114 10/18/2022 Implant: Implants No active implants to display in this view. General Precautions (If Blank, None Found): Isolation Status: No active isolations Nutritional Status and in-house recommendations: Dietary Orders (From admission, onward) Start Ordered 10/20/22 1130 Adult Diet Restricted; Cardiac (Low Na, Low Chol) Diet effective now Question Answer Comment (MHB/MHE) Diet type Restricted Fat / Sodium Restriction: Cardiac (Low Na, Low Chol) 10/20/22 1129 Anticoagulation Indication: INR: No results found for requested labs within last 30 days. Warfarin Administrations (last 168 hours) None Oxygen Status: O2 Therapy for the past 12 hrs: O2 Therapy 10/21/22 0700 None (Room air) 10/21/22 0545 None (Room air) 10/20/22 2352 None (Room air) Wound Care Instructions Wound 10/18/22 Distal;Right;Posterior Forearm (Active) Wound Status Evolving 10/20/22 1521 Site Assessment Clean;Dry;Fragile 10/20/22 1521 Madhuri-wound Assessment Fragile 10/20/22 1521 Margins Unattached edges 10/20/22 1521 Drainage Amount Scant 10/20/22 1521 Drainage Description Serosanguineous 10/20/22 1521 Dressing Status Changed 10/20/22 1521 Dressing Foam 10/20/22 1521 Interventions Cleansed 10/20/22 1521 Wound Image 10/18/22 2237 Wound 10/18/22 Distal;Posterior;Right;Upper Elbow (Active) Wound Status Healing 10/20/22 1521 Site Assessment Clean;Dry 10/20/22 1521 Madhuri-wound Assessment Fragile 10/20/22 1521 Margins Undefined edges 10/20/22 1521 Drainage Amount None 10/20/22 1521 Drainage Description Sanguineous 10/18/22 2237 Dressing Status Changed 10/20/22 1521 Dressing Foam 10/20/22 1521 Interventions Cleansed 10/20/22 1521 Wound Image 10/18/22 2239 Other Instructions Ambulatory referral to Home Health Service Line: Home Health Primary disciplines requested: Physical Therapy Secondary disciplines requested: Occupational Therapy Home Health Services: Therapy to Eval/Tx Therapy instructions: Evaluation/treatment Requested Start of Care Date: 24-48 hours Physician to follow patient's care (the person listed here will be responsible for signing ongoing orders): PCP I attest that I or another qualified licensed provider saw the patient 90 days prior to or 30 days post admission and this face to face encounter meets the necessary Home Health requirements. The face to face encounter occurred on (date): 10/21/2022 The encounter with the patient was in whole, or in part, for the following medical condition, whichis the primary reason for home health care. (List medical condition): Recurrent fall I certify that, based on my findings, the following services are medically necessary skilled home health services: Therapy to Eval/Tx Clinical findings that support the need for home care: Medical condition requiring skilled assessment/education I certify that my clinical findings support patient's homebound status. Homebound criteria met because: Poor endurance Walker Height: 157.5 cm (5' 2 ) Weight: 66.5 kg (146 lb 8 oz) Type: Adult (163-188 cm tall) Bariatric (>300#): No Wheeled walker: Yes Wheel type: Rollator (Four wheeled with seat) Leg extenders: No Patient has mobility limitation requiring use and patient is able to use walker; and functional mobility deficit is resolved by use of walker?: No DME services provided by: External Agency Active LDAs (If Blank, None Found): Peripheral IV 10/20/22 Anterior;Right Forearm (Active) Placement Date/Time: 10/20/22 1520 Location Orientation: Anterior;Right Location: Forearm Site Prep: Chlorhexidine Technique: Anatomical landmarks Inserted by: zach gil Insertion attempts: 1 Patient Emergency Contact: Primary Emergency Contact: ascencion engel Immunization Status at Discharge Immunization History Administered Date(s) Administered Moderna SARS-CoV-2 Monovalent Vaccination (12+ YRS) 06/17/2020, 07/15/2020, 03/25/2021 Rosemary Espitia MD documented in this encounter Discharge Instructions * Discharge Instr - Diet* Rosa Hi RD - 10/19/2022 3:[address] office at [phone] with any nutrition-related questions. * Attachments The following attachments cannot be sent through Care Everywhere. * Hypertension and Diabetes (AfterCare(R) Instructions(ER/ED)) (Malagasy) documented in this encounter Medications at Time [...] as needed for diarrhea 12 capsule 04/06/2021 losartan (COZAAR) 50 mg tablet Take 1 tablet (50 mg total) by mouth daily 30 tablet 10/22/2022 4 documented as of this encounter Ordered Prescriptions Prescription Sig Dispense Quantity Refills Last Filled Start Date End Date losartan (COZAAR) 50 mg tablet Take 1 tablet (50 mg total) by mouth daily 30 tablet 10/22/2022 12/03/2023 amLODIPine (NORVASC) 10 mg tablet Take 1 tablet (10 mg total) by mouth daily 30 tablet 10/22/2022 12/03/2023 losartan (COZAAR) 50 mg tablet Take 1 tablet (50 mg total) by mouth daily 30 tablet 10/22/2022 10/21/2022 amLODIPine (NORVASC) 10 mg tablet Take 1 tablet (10 mg total) by mouth daily 30 tablet 10/22/2022 10/21/2022 documented in this encounter Discharge Disposition Disposition Code Departure Means Destination Comment s Discharge to care home facility documented in this encounter Progress Notes * Reilly Fuller PTA - 10/21/2022 11:30 AM CDT Physical Therapy 10/21/22 1142 PT Last Visit Session Type Treatment PT Missed Visit Reason Other (comment) (Checked on pt x2 this date. Initial attempt @1038, pt was eating breakfast. On second attempt, pt's daughter is present, and pt is receiving discharge instructions from her nurse.) * Carlos Zhang MD - 10/21/2022 9:33 AM CDT Patient Id: Emerald Myers is a 87 y.o. female. MR#: [id number] CHIEF COMPLAINT: History of falls, shortness of SUBJECTIVE 10/20/2022: Patient seen for Dr. Hendrickson. Patient came in with history of fall. It is not clear whether she had any syncope. When I talked to her she is said she has no loss of consciousness. She gives history of dyspnea on exertion. Currently denies any chest pain or shortness of breath. Other review of systems negative. October 21, 2022: Patient denied any chest pain or shortness of breath. Denies any palpitations, dizziness, near-syncope or syncope. Stress test showed no ischemia. Allergies Allergen Reactions Ciprofloxacin Itching Reaction: ITCHING Adhesive Tape-Silicones Other (See comments) Reaction: OTHER REACTION, Sulfa (Sulfonamide Antibiotics) Itching Reaction: ITCHING HOME MEDICATIONS : ascorbic acid 500 mg tablet,chewable calcium carbonate (OS-JEROD) 1,500 mg (600 mg elemental) tablet cholestyramine-aspartame (QUESTRAN LIGHT) 4 gram powder in packet FLUoxetine (PROzac) 20 mg tablet hyoscyamine ER (LEVBID) 0.375 mg 12 hr tablet lansoprazole (PREVACID) 30 mg capsule loperamide (IMODIUM) 2 mg capsule raloxifene (EVISTA) 60 mg tablet evolocumab (Repatha Syringe) syringe syringe PREVIOUS CARDIOVASCULAR PROCEDURE AND PAST MEDICAL HISTORY Dyspnea on exertion Hypertension Hyponatremia Falls Echo Doppler: Echo Doppler done on the 19 October 2022 showed ejection fraction of 55-60% with mild aortic regurgitation. Normal right heart pressures noted. Mild pulmonic insufficiency and grade 1 diastolic dysfunction noted. REVIEW OF SYMPTOMS General: No fever, chills, malaise or fatigue Pulmonary: No dyspnea, cough or hemoptysis Cardiac: No chest pain, orthopnea, PND or palpitations GI: No nausea, vomiting, diarrhea or constipation Neuro: No headaches, parathesias or focal neurological complaints VITAL SIGNS Arrival Vitals Temp 10/18/22 1536 36.8 ??C (98.3 ??F) Pulse 10/18/22 1536 94 Resp 10/18/22 1536 18 BP 10/18/22 1536 (!) 180/106 SpO2 10/18/22 1536 97 % Temp src 10/18/22 1536 Oral Heart Rate Source 10/18/22 1545 Monitor Patient Position 10/18/22 1545 Sitting BP Location 10/18/22 1545 Right arm FiO2 (%) -- 24hr Min/Max: Temp Min: 36.4 ??C (97.6 ??F) Max: 36.9 ??C (98.5 ??F) Pulse Min: 82 Max: 102 BP Min: 132/78 Max: 189/101 Resp Min: 16 Max: 20 SpO2 Min: 93 % Max: 95 % Most Recent : Vitals: 10/21/22 0700 BP: (!) 189/101 Pulse: 95 Resp: 16 Temp: 36.9 ??C (98.5 ??F) SpO2: 95% PHYSICAL EXAMINATION General: Well appearing, No pain or distress, well nourished Eyes: Conjuctiva Clear ENT: External ears/nose normal Neck: Supple Respiratory: Clear to ausculation bilaterally Cardiovascular: S1 and S2 present. Gastrointestinal: soft, non-tender abdomen Extremities: no cyanosis or clubbing. Musculoskeletal: no obvious joint deformities Psychiatric: normal affect Neurologic: awake/alert Labs Recent Labs Lab Units 10/19/22 0245 10/18/22 1541 WBC K/cumm 7.7 6.8 HEMOGLOBIN g/dL 13.4 14.1 PLATELETS K/cumm 176 202 Recent Labs Lab Units 10/20/22 0431 10/19/22 0245 10/18/22 1541 SODIUM mmol/L 141 141 141 POTASSIUM PLASMA mmol/L 3.9 3.7 4.0 CHLORIDE mmol/L 106 108 106 CO2 mmol/L 26 22 25 ANIONGAP mmol/L 9 11 10 GLUCOSE mg/dL 93 91 114 BUN SERUM mg/dL 16 14 13 CREATININE mg/dL 1.00 0.90 1.10 CALCIUM mg/dL 8.7 8.8 9.1 ALBUMIN g/dL 3.0* 3.2* 3.5 ALK PHOS Units/L 67 70 68 ALT Units/L 8 7 8 AST Units/L 12 12 13 BILIRUBIN TOTAL mg/dL 0.4 0.3 0.4 Recent Labs Lab Units 10/18/22 2202 10/18/22 1928 10/18/22 1728 10/18/22 1541 TROPTHS ng/L 17* 18* 17* 17* Recent Labs Lab Units 10/19/22 0245 TSH mcIUnit/mL 2.00 Recent Labs Lab Units 10/19/22 0245 LDL CALC mg/dL 48 HDL mg/dL 47 I/O last 2 completed shifts: In: 422 [P.O.:422] Out: - No intake/output data recorded. Intake/Output Summary (Last 24 hours) at 10/21/2022 0933 Last data filed at 10/20/2022 1830 Gross per 24 hour Intake 422 ml Output -- Net 422 ml Telemetry: I personally reviewed the telemetry and the rhythm is sinus Hospital Medications: amLODIPine, 5 mg, oral, Daily enoxaparin, 40 mg, subcutaneous, Daily-2099 FLUoxetine, 20 mg, oral, Daily losartan, 50 mg, oral, Daily pantoprazole DR, 40 mg, oral, Daily ASSESSMENTS: Principal Problem: Syncope and collapse Active Problems: Syncope, unspecified syncope type Dyspnea on exertion Falls Pure hypercholesterolemia Elevated troponin Plan: Falls/syncope. Patient denied any loss of consciousness. Dyspnea on exertion: Echo showed normal LV function with mild aortic insufficiency. Proceed with the stress test. If the stress test is normal she can be discharged home. If it is abnormal then consider cardiac catheterization Hypertension controlled. Continue amlodipine and losartan Hyperlipidemia patient and Repatha at home. Management as per primary care physician as an outpatient. Discussed with the hospitalist. 10/21/2022 History of falls: As mentioned above patient denied any loss of consciousness. Encouraged her to use cane or walker. Patient may benefit from gait training also. Encouraged p.o. fluids. Given no dizziness or loss of consciousness no need for any event monitor at this time. Dyspnea on exertion. Stress test findings reviewed with her. False positives and negatives discussed. Given negative stress test she does not need any further cardiac workup at this time. Hypertension: Poorly controlled on I am going to increase the amlodipine to 10 mg p.o. q.day. She can be monitored as an outpatient. Advised her to follow-up with Dr. Hendrickson in 2 weeks. Hyperlipidemia continue Repatha. Discussed with Dr. Espitia Once again thank you for allowing me to participate in the care of your patient. Please feel free to contact me if you have any questions. Carlos Zhang MD This examination was transcribed using the [employer] voice recognition system without human dial screw assembler. In an effort to expedite patient care, this report has not been adjusted for typographical, grammatical, and syntax by a trained medical equipment repair technician. Despite proof reading there may be errors. Please contact me if you have any questions. * Rosemary Espitia MD - 10/20/2022 12:29 PM CDT General Medicine Daily Progress SUBJECTIVE Patient is seen for follow-up of syncope/fall, elevated blood pressure without history of hypertension. Patient is seen examined today. She is resting comfortably in bed. Appears pleasant. Denies any chest pain or shortness a breath Afebrile No overnight issues reported by nursing staff. Plan of care discussed with patient's [id number] over the phone in detail. OBJECTIVE Vitals: 24hr Min/Max: Temp Min: 36.4 ??C (97.6 ??F) Max: 36.7 ??C (98.1 ??F) Pulse Min: 81 Max: 91 BP Min: 119/74 Max: 163/81 Resp Min: 17 Max: 20 SpO2 Min: 94 % Max: 96 % Most Recent : Vitals: 10/20/22 1145 BP: Pulse: Resp: 20 Temp: 36.6 ??C (97.8 ??F) SpO2: I/O last 2 completed shifts: In: 342 [P.O.:342] Out: 600 [Urine:600] No intake/output data recorded. Physical Exam: General Exam: No acute distress Resting in bed Appears pleasant Ears, Nose, Mouth, Throat: Ext. ears & nose normal, Moist mucous membranes Neck: Supple Cardiovascular: Normal range, Regular rhythm, S1S2 normal. ABSENT: Edema Respiratory: CTA bilaterally, Effort normal ABSENT: Crackles, Rhonchi Abdomen: Bowel sounds present, Soft. ABSENT: Mass, Tenderness, Distention Neurological: No focal deficit Psychiatric: Affect appropriate, Alert Psychiatric - Orientation: Oriented to: Place, Person Lab/Current Medication Review: Recent Results (from the past 24 hour(s)) Comprehensive metabolic panel Collection Time: 10/20/22 4:31 AM Result Value Ref Range Sodium 141 135 - 145 mmol/L Potassium, pl 3.9 3.3 - 4.9 mmol/L Chloride 106 97 - 110 mmol/L CO2 26 22 - 32 mmol/L Anion gap 9 2 - 15 mmol/L BUN 16 6 - 25 mg/dL Creatinine 1.00 0.60 - 1.10 mg/dL Glucose 93 70 - 199 mg/dL Calcium 8.7 8.5 - 10.3 mg/dL Bilirubin, total 0.4 0.1 - 1.2 mg/dL Protein, pl 5.7 (L) 6.5 - 8.5 g/dL Albumin 3.0 (L) 3.5 - 5.0 g/dL Alk phos 67 40 - 130 Units/L ALT 8 7 - 45 Units/L AST 12 10 - 45 Units/L eGFR Collection Time: 10/20/22 4:31 AM Result Value Ref Range eGFR 55 mL/min/1.73 m2 XR Hip Right 2 or 3 Views Result Date: 10/18/2022 Narrative: EXAM DESCRIPTION: XR HIP RIGHT 2 OR 3 VIEWS REASON FOR STUDY: pain Pt states fall today having pain TECHNIQUE: 2 radiographic view(s) of the right hip . COMPARISON: None FINDINGS: Overlying soft tissue on the frontal view limits evaluation. There appears to be grossly normal alignment. No definite fracture. Mild right hip osteoarthritis. IMPRESSION: 1. No gross acute osseous abnormality. THIS IS AN ELECTRONICALLY VERIFIED FINAL REPORT 10/18/2022 6:33 PM - Electronically signed by Oneil Puckett M.D. AG: [email or web address] Report ID: [id number] Reading Location: [id number] CT Head WO Contrast Result Date: 10/18/2022 Narrative: EXAM DESCRIPTION: CT HEAD WO CONTRAST REASON FOR STUDY: multiple falls, confusion Table formatting from the original note was not included. Pt arrived from [facility] via EMS. EMS states multiple falls over past 24 hours. HBP. Some skin tears Pt A. Pt c/o multiple falls, unsure if she fell or hit her head. Denies CP, new shortness of breath. TECHNIQUE: Axial images acquired through thebrain without intravenous contrast. Images stored on PACS. Automated exposure control was used as adose optimization technique for this examination. COMPARISON: None FINDINGS: BRAIN: No hemorrhage, edema or mass effect. No recent infarct. Generalized atrophy and periventricular microvascular whitematter ischemic change. 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 EXTRA-AXIAL SPACES: No fluid collections. No masses. CALVARIUM: No fracture. SINUSES/MASTOIDS: No fluid or mucosal thickening. ORBITS: No significant abnormality. OTHER: No other significant abnormality. IMPRESSION: No acute intracranial findings. THIS IS AN ELECTRONICALLY VERIFIED FINAL REPORT 10/18/2022 5:40 PM - Electronically signed by Jeramie Berkowitz M.D. KT: ANI T: 10/18/2022 5:40 PM Report ID: [id number] Reading Location: [id number] XR Chest 1 Vw Portable Result Date: 10/18/2022 Narrative: EXAM DESCRIPTION: XR CHEST 1 VIEW REASON FOR STUDY: weakness, multiple falls over last 24 hours Pt arrived from [facility] via EMS. EMS states multiple falls over past 24 hours. 128 BG. 18GL AC. HBP. Some skin tears Pt A. Pt c/o multiple falls, unsure if she fell or hit her head. DeniesCP, new shortness of breath. TECHNIQUE: Single frontal radiographic view(s) of the chest. COMPARISON: 04/05/2021 FINDINGS: The heart, mediastinum, and pulmonary vasculature are grossly stable. Thereare mild atherosclerotic changes of the aorta. There is no definite evidence of a pneumothorax. There is no definite evidence of a focal consolidation or pleural effusion. There are scattered calcified granulomas noted. The osseous structures are acutely grossly stable. IMPRESSION: No acute cardiopulmonary abnormality. THIS IS AN ELECTRONICALLY VERIFIED FINAL REPORT 10/18/2022 4:25 PM - Electronically signed by Dyan Lennon D.O. PS: PS Report ID: [id number] Reading Location: [id number] Current Facility-Administered Medications Medication Dose Route Frequency Provider Last Rate Last Admin acetaminophen (TYLENOL) tablet 650 mg 650 mg oral Q4H PRN Melchor Rangel MD 650 mg at 10/19/22 2353 amLODIPine (NORVASC) tablet 5 mg 5 mg oral Daily Rosemary Espitia MD 5 mg at 10/20/22 1141 cloNIDine (CATAPRES) tablet 0.1 mg 0.1 mg oral Q8H PRN Melchor Rangel MD 0.1 mg at 10/19/22 0523 enoxaparin (LOVENOX) syringe 40 mg 40 mg subcutaneous Daily-2100 Melchor Rangel MD 40 mgat 10/19/22 210 FLUoxetine (PROzac) tab/cap 20 mg 20 mg oral Daily Melchor Rangel MD 20 mg at 10/20/22 1141 loperamide (IMODIUM) capsule 2 mg 2 mg oral Daily PRN Melchor Ranegl MD losartan (COZAAR) tablet 50 mg 50 mg oral Daily Lore Hendrickson MD 50 mg at 10/20/[address] (PROTONIX) extended release tablet 40 mg 40 mg oral Daily Melchor Rangel MD 40 mg at 10/20/22 1141 ramelteon (ROZEREM) tablet 8 mg 8 mg oral Nightly PRN Melchor Rangel MD A/P: MDM Principal Problem: Syncope and collapse Active Problems: Syncope, unspecified syncope type Dyspnea on exertion Falls Pure hypercholesterolemia Elevated troponin Resolved Problems: No resolved hospital problems. Assessment/plan: Syncope: Status post multiple falls at home: Patient is hemodynamically stable. She is afebrile CT head: Negative Troponin negative so far No cardiac arrhythmia reported Chest x-ray is negative UA is negative No evidence of infection Electrolytes within acceptable range Carotid Doppler/echocardiogram has been requested Requested EEG Cardiology consultation has been requested for further evaluation Urine drug screen was requested earlier which is pending. Fall precautions PT/OT assessment 0 7/0 1: Patient is hemodynamically stable. Remains afebrile There is no focus of infection. Electrolytes are within acceptable range Carotid Doppler: No significant stenosis Patient underwent stress test this morning, results are pending Electrolytes are within acceptable range LFTs normal There is no leukocytosis, hemoglobin is normal 13.4 EEG was completed yesterday: To be read by neurologist. Awaiting on results of EEG and stress test. Repeat orthostatic vitals are negative. No cardiac arrhythmia reported Evaluated by PT and OT during this hospitalization. Fall precautions Elevated blood pressure without previous diagnosis of hypertension: Blood pressure is fluctuating Last blood pressure reading 163/81 Started on amlodipine, continue current dose. History of GERD: Continue PPI Anxiety/depression: Appears anxious Continue home meds Prozac. Low complexity: MDM Plan of care discussed with nursing staff. Voice recognition software [employer] was used dictate and transcribe this document. Personal Shopper variances may occur. Despite proofreading, typographical errors may occur. For patients or family members viewing this note through [facility]: This note was written as a communication tool between healthcare providers and may contain technical language, terminology and abbreviations that is difficult to interpret without advanced medical training. If you have questions or concerns regarding what is written in this note, please request to speak with the primary medical team taking care of you or your family member. Rosemary Espitia MD 10/20/2022 12:29 PM * Carlos Zhang MD - 10/20/2022 9:59 AM CDT Patient Id: Emerald Myers is a 87 y.o. female. MR#: [id number] CHIEF COMPLAINT: History of falls, shortness of SUBJECTIVE 10/20/2022: Patient seen for Dr. Hendrickson. Patient came in with history of fall. It is not clear whether she had any syncope. When I talked to her she is said she has no loss of consciousness. She gives history of dyspnea on exertion. Currently denies any chest pain or shortness of breath. Other review of systems negative. Allergies Allergen Reactions Ciprofloxacin Itching Reaction: ITCHING Adhesive Tape-Silicones Other (See comments) Reaction: OTHER REACTION, Sulfa (Sulfonamide Antibiotics) Itching Reaction: ITCHING HOME MEDICATIONS : ascorbic acid 500 mg tablet,chewable calcium carbonate (OS-JEROD) 1,500 mg (600 mg elemental) tablet cholestyramine-aspartame (QUESTRAN LIGHT) 4 gram powder in packet FLUoxetine (PROzac) 20 mg tablet hyoscyamine ER (LEVBID) 0.375 mg 12 hr tablet lansoprazole (PREVACID) 30 mg capsule loperamide (IMODIUM) 2 mg capsule raloxifene (EVISTA) 60 mg tablet evolocumab (Repatha Syringe) syringe syringe PREVIOUS CARDIOVASCULAR PROCEDURE AND PAST MEDICAL HISTORY Dyspnea on exertion Hypertension Hyponatremia Falls Echo Doppler: Echo Doppler done on the 19 October 2022 showed ejection fraction of 55-60% with mild aortic regurgitation. Normal right heart pressures noted. Mild pulmonic insufficiency and grade 1 diastolic dysfunction noted. REVIEW OF SYMPTOMS General: No fever, chills, malaise or fatigue Pulmonary: No dyspnea, cough or hemoptysis Cardiac: No chest pain, orthopnea, PND or palpitations GI: No nausea, vomiting, diarrhea or constipation Neuro: No headaches, parathesias or focal neurological complaints VITAL SIGNS Arrival Vitals Temp 10/18/22 1536 36.8 ??C (98.3 ??F) Pulse 10/18/22 1536 94 Resp 10/18/22 1536 18 BP 10/18/22 1536 (!) 180/106 SpO2 10/18/22 1536 97 % Temp src 10/18/22 1536 Oral Heart Rate Source 10/18/22 1545 Monitor Patient Position 10/18/22 1545 Sitting BP Location 10/18/22 1545 Right arm FiO2 (%) -- 24hr Min/Max: Temp Min: 36.4 ??C (97.6 ??F) Max: 36.7 ??C (98.1 ??F) Pulse Min: 81 Max: 91 BP Min: 119/74 Max: 163/81 Resp Min: 16 Max: 18 SpO2 Min: 94 % Max: 96 % Most Recent : Vitals: 10/20/22 0928 BP: 163/81 Pulse: 81 Resp: Temp: SpO2: 96% PHYSICAL EXAMINATION General: Well appearing, No pain or distress, well nourished Eyes: Conjuctiva Clear ENT: External ears/nose normal Neck: Supple Respiratory: Clear to ausculation bilaterally Cardiovascular: S1 and S2 present. Gastrointestinal: soft, non-tender abdomen Extremities: no cyanosis or clubbing. Musculoskeletal: no obvious joint deformities Psychiatric: normal affect Neurologic: awake/alert Labs Recent Labs Lab Units 10/19/22 0245 10/18/22 1541 WBC K/cumm 7.7 6.8 HEMOGLOBIN g/dL 13.4 14.1 PLATELETS K/cumm 176 202 Recent Labs Lab Units 10/20/22 0431 10/19/22 0245 10/18/22 1541 SODIUM mmol/L 141 141 141 POTASSIUM PLASMA mmol/L 3.9 3.7 4.0 CHLORIDE mmol/L 106 108 106 CO2 mmol/L 26 22 25 ANIONGAP mmol/L 9 11 10 GLUCOSE mg/dL 93 91 114 BUN SERUM mg/dL 16 14 13 CREATININE mg/dL 1.00 0.90 1.10 CALCIUM mg/dL 8.7 8.8 9.1 ALBUMIN g/dL 3.0* 3.2* 3.5 ALK PHOS Units/L 67 70 68 ALT Units/L 8 7 8 AST Units/L 12 12 13 BILIRUBIN TOTAL mg/dL 0.4 0.3 0.4 Recent Labs Lab Units 10/18/22 2202 10/18/22 1928 10/18/22 1728 10/18/22 1541 TROPTHS ng/L 17* 18* 17* 17* Recent Labs Lab Units 10/19/22 0245 TSH mcIUnit/mL 2.00 Recent Labs Lab Units 10/19/22 0245 LDL CALC mg/dL 48 HDL mg/dL 47 I/O last 2 completed shifts: In: 342 [P.O.:342] Out: 600 [Urine:600] No intake/output data recorded. Intake/Output Summary (Last 24 hours) at 10/20/2022 1002 Last data filed at 10/20/2022 0235 Gross per 24 hour Intake 342 ml Output 600 ml Net -258 ml Telemetry: I personally reviewed the telemetry and the rhythm is sinus Hospital Medications: amLODIPine, 5 mg, oral, Daily enoxaparin, 40 mg, subcutaneous, Daily-2100 FLUoxetine, 20 mg, oral, Daily losartan, 50 mg, oral, Daily pantoprazole DR, 40 mg, oral, Daily ASSESSMENTS: Principal Problem: Syncope and collapse Active Problems: Syncope, unspecified syncope type Dyspnea on exertion Falls Plan: Falls/syncope. Patient denied any loss of consciousness. Dyspnea on exertion: Echo showed normal LV function with mild aortic insufficiency. Proceed with the stress test. If the stress test is normal she can be discharged home. If it is abnormal then consider cardiac catheterization Hypertension controlled. Continue amlodipine and losartan Hyperlipidemia patient and Repatha at home. Management as per primary care physician as an outpatient. Discussed with the hospitalist. Once again thank you for allowing me to participate in the care of your patient. Please feel free to contact me if you have any questions. Carlos Zhang MD This examination was transcribed using the [employer] voice recognition system without human dial screw assembler. In an effort to expedite patient care, this report has not been adjusted for typographical, grammatical, and syntax by a trained medical equipment repair technician. Despite proof reading there may be errors. Please contact me if you have any questions. * John Hernandez - 10/19/2022 3:29 PM CDT 10/19/22 1500 Time Spent Start Time 1137 Patient Spiritual Assessment Spirituality Assessed Yes Hoahaoism Affiliation Orthodoxy Active in [place] Yes Spiritual Needs Prayer Clinical Encounter Type Visited With Patient Response Type Routine visit Routine Visit Introduction Reason for visit Support Patient seemed calm and cheerful. She declined prayer support; she was tired, she said though she appreciated the visit. Follow up visit might be needed. * Marisel Duqeu OT - 10/19/2022 2:14 PM CDT Occupational Therapy 10/19/22 1148 General Chart Reviewed Yes Session Type Evaluation Safe Environment Arm band checked;Patient found in supine Subjective Agreeable to Therapy Subjective Comment I want to get out of bed Additional Pertinent History Patient presented to the ER with c/o syncope and frequent falls at [facility] Occupational Therapy-Patient Goal to feel better Current Functional Status OT Functional Mobility CGA with room mobility using w/w, poor walker safety OT Self Care SBA with LB dressing OT Cognition Alert and oriented to self and situation, decrased STM evident during eval, poor walker safety OT Communication intact Precautions Precautions Bed/Chair Alarm;Fall risk Home Living Type of Home Assisted Living Facility Home Mobility Equipment-Available Wheeled walker Home Mobility Equipment-Currently Using Wheeled walker Prior Function Level of [place] Independent with ADLs;Independent with ambulation Receives Help From fountain attendant Driving No Fall within the last 6 months Yes Fall within the last 6 months comment several falls in past week UE Dressing UE Dressing: Level of assistance Standby Assist LE Dressing LE Dressing: Level of assistance Standby Assist Pain Assessment Pain Assessment No/denies pain Activity Tolerance Endurance Endurance does not limit participation in activity Cognition Orientation Oriented X4 (person, place, time, situation) Following Commands Follows one step commands without difficulty Safety Judgment (poor) Compliance/Behavior Easy to engage Hand Function Coordination Functional Gross Grasp Functional Reach/Grasp RUE Reach WFL LUE Reach WFL Static Sitting Balance Static Sitting-Level of Assistance Independent Static Standing Balance Static Standing-Level of Assistance Contact guard Bed Mobility 1 Bed Mobility From 1 Supine Bed Mobility Type 1 To Bed Mobility to 1 Edge of bed Level of Assistance 1 Contact Guard Assist Transfer 1 Transfer From 1 Sit Transfer Type 1 To Transfer to 1 Chair with arms Technique 1 Sit to stand Transfer Device 1 Wheeled walker Transfer Level of Assistance 1 Contact Guard Assist Safe Environment End of Therapy Session Safe Environment End of Therapy Session Patient left in chair;Chair alarm in place and activated;Call light within reach;Overbed table within reach Assessment Prognosis Good Problem List Decreased endurance;Decreased balance;Decreased functional mobility;Decreased ADL independence Plan Plan Plan of care initiated Recommendation/Plan OT Recommendation Home Health OT Patient at high risk for Falls;Readmission OT Frequency during current admission 3-5x/wk Treatment/Interventions during current admission ADL/IADL retraining;Balance Training;Endurance training;Functional mobility training;Functional transfer training OT - Next Appointment 11/02/22 OT Evaluation Complete Yes Multi-Disciplinary Problems (from Occupational Therapy) Active Problems Problem: Dressings Lower Extremities Start Date: 10/19/22 Goal Start Date Expected End Date End Date STG - Patient will complete lower body dressing 10/19/22 10/26/22 -- Goal Details: Independent Problem: Dressing Upper Extremities Start Date: 10/19/22 Goal Start Date Expected End Date End Date STG - Patient will dress upper body 10/19/22 10/26/22 -- Goal Details: Independent Problem: Grooming Start Date: 10/19/22 Goal Start Date Expected End Date End Date STG - Patient will complete grooming 10/19/22 10/26/22 -- Goal Details: Independent Problem: Toileting Start Date: 10/19/22 Goal Start Date Expected End Date End Date STG - Patient will complete toileting tasks with 10/19/22 10/26/22 -- Goal Details: Independent Problem: Transfers Start Date: 10/19/22 Goal Start Date Expected End Date End Date STG - Patient will perform toilet transfer 10/19/22 10/26/22 -- Goal Details: Mod I with DME PRN Reviewed By Marisel Duque OT 10/19/22 1416 * Alvina Timmons, PT - 10/19/2022 11:47 AM CDT Physical Therapy 10/19/22 1147 General Chart Reviewed Yes Session Type Evaluation PT Received On 10/19/22 Safe Environment Patient found in supine;Arm band checked;Gait belt utilized for all out of bed mobility Subjective Agreeable to Therapy Subjective Comment Pt admits to occasional short term memory loss. Additional Pertinent History DX: syncope w recent falls Patient has had frequent falls over the past 24 hours described as syncopal episodes. Patient endorses that she was ambulating from the bathroom, went to her closet pick out a blouse. She was standing there picked 1 out but then turned back tosee if there was something else she wanted to wear. She states the next thing she recalls is that she was on the floor. She does not fully recall falling to the ground. She does endorse hitting her head. She denies any pain or bony injury at current. She denies associated chest pain, shortness at breath, palpitations, diaphoresis, nausea, vomiting, headache, lightheadedness, dizziness, recent fevers or chills. Granddaughter present at bedside, states that patient moved to the assisted living center approximately 1 year ago. When she moved there she was pretty independent, no confusion or memory issues. However over the past 6-8 months it seems as though patient has been declining cognitively and family's concern about patient developing dementia. Family/Caregiver Present No Physical Therapy-Patient Goal To return to [facility]. Precautions Precautions Bed/Chair Alarm;Fall risk Home Living Type of Home Assisted Living Facility Home Layout One level Home Access Ramped entrance Home Mobility Equipment-Available Wheeled walker Home Mobility Equipment-Currently Using Wheeled walker (states she just started using walker recently because of falling.) Prior Function Level of [place] Needs assistance with homemaking;Independent with ADLs;Independent functionaltransfers;Independent with ambulation Lives With Alone Receives Help From (staff from [facility]) Driving No Mode of Transportation Driven by others Vocational/Occupation Retired Fall within the last 6 months Yes Fall within the last 6 months comment several in past week Pain Assessment Pain Assessment Ibarra-Lee FACES Ibarra-Lee FACES Pain Rating 2 Pain Location Generalized Cognition Cognition Comments admits to occasional short term memory loss Arousal/Alertness Alert;Appropriate responses to stimuli Attention Span Appears intact Current communication Appears Intact Orientation Oriented X4 (person, place, time, situation) Following Commands Follows one step commands without difficulty Compliance/Behavior Easy to engage Bed Mobility 1 Bed Mobility From 1 Supine Bed Mobility Type 1 To Bed Mobility to 1 Edge of bed Level of Assistance 1 Contact Guard Assist Bed Mobility Comments 1 able to sit edge fo bed and laila socks, required help w athletic shoes. Transfer 1 Transfer From 1 Sit Transfer Type 1 To and from Transfer to 1 Stand Technique 1 Sit to stand;Stand to sit Transfer Device 1 Wheeled walker Transfer Level of Assistance 1 Contact Guard Assist;Standby Assist Ambulation 1 Distance (ft) 1 175 Surface 1 Level tile Device 1 Wheeled walker Assistance 1 Contact Guard Assist Gait: Requires assist with 1 Maintaining balance Gait: Requires verbal cues to 1 Increase base of support Gait Deviations 1 Base of support - decreased (very narrow base of support w occ scissoring; states she has always walked that way. Able to self correct w verbal cues.) RUE Assessment RUE Assessment WFL LUE Assessment LUE Assessment WFL RLE Assessment RLE Assessment WFL LLE Assessment LLE Assessment WFL Safe Environment End of Therapy Session Safe Environment End of Therapy Session Patient left in chair;Chair alarm in place and activated;Call light within reach;Overbed table within reach;Bed in lowest position with wheels locked Assessment Prognosis Good Problem List Gait deviations;Decreased strength;Decreased endurance;Impaired balance;Decreased mobility;Decreased safety awareness Barriers to Discharge None Plan Plan Plan of care initiated Recommendation/Plan PT Recommendation/Plan (S) Assisted Living Facility PT Recommendation/Plan Comments pt to continue to use walker PT Frequency during current admission 5-7x/wk Treatment/Interventions during current admission Balance Training;Endurance training;Gait training;Strengthening;Therapeutic exercise;Transfer training PT - Next Appointment 11/02/22 PT Evaluation Complete Yes Multi-Disciplinary Problems (from Physical Therapy) Active Problems Problem: Mobility Start Date: 10/19/22 Goal Start Date Expected End Date End Date LTG - Patient will demonstrate functional mobility with the following level of assist: 10/19/22 11/02/22 -- Goal Details: Pt will transfer and ambulate w walker, 225 feet, sba of 1, w VSS. * Alvina Timmons, PT - 10/19/2022 10:13 AM CDT Physical Therapy 10/19/22 1012 General Chart Reviewed Yes Session Type Evaluation PT Missed Visit Reason Procedure/testing/appointment (off floor for testing) * Rosemary Espitia MD - 10/19/2022 8:58 AM CDT General Medicine Daily Progress SUBJECTIVE Patient is seen for follow-up of syncope/fall, elevated blood pressure without history of hypertension. Patient is seen examined today She is resting comfortably in bed Denies any chest pain or shortness a breath No nausea, vomiting, diarrhea abdominal pain reported She is afebrile Patient is anxious and wants to go home today. OBJECTIVE Vitals: 24hr Min/Max: Temp Min: 36.3 ??C (97.4 ??F) Max: 36.9 ??C (98.4 ??F) Pulse Min: 86 Max: 110 BP Min: 134/82 Max: 186/80 Resp Min: 16 Max: 25 SpO2 Min: 93 % Max: 98 % Most Recent : Vitals: 10/19/22 0759 BP: 153/76 Pulse: 87 Resp: 16 Temp: 36.3 ??C (97.4 ??F) SpO2: 94% I/O last 2 completed shifts: In: - Out: 300 [Urine:300] No intake/output data recorded. Physical Exam: General Exam: No acute distress Clean dressing noted on extensor aspect of right elbow Ears, Nose, Mouth, Throat: Ext. ears & nose normal, Moist mucous membranes Neck: Supple Cardiovascular: Normal range, Regular rhythm, S1S2 normal. ABSENT: Edema Respiratory: CTA bilaterally, Effort normal ABSENT: Crackles, Rhonchi Abdomen: Bowel sounds present, Soft. ABSENT: Mass, Tenderness, Distention Neurological: No focal deficit Psychiatric: Affect appropriate, Alert Psychiatric - Orientation: Oriented to: Place, Person Lab/Current Medication Review: Recent Results (from the past 24 hour(s)) CBC with auto differential Collection Time: 10/18/22 3:41 PM Result Value Ref Range WBC 6.8 3.8 - 9.9 K/cumm Hgb 14.1 11.9 - 15.5 g/dL Hct 43.2 35.6 - 45.5 % Plt 202 150 - 400 K/cumm MPV 10.7 9.1 - 12.3 fL RBC 4.49 3.90 - 5.20 M/cumm MCV 96.2 81.3 - 96.4 fL MCH 31.4 27.1 - 33.3 pg MCHC 32.6 32.3 - 35.7 g/dL RDW CV 13.7 11.1 - 14.9 % RDW SD 48.4 (H) 35.7 - 48.1 fL NRBC abs 0.00 0.00 - 0.01 K/cumm Comprehensive metabolic panel Collection Time: 10/18/22 3:41 PM Result Value Ref Range Sodium 141 135 - 145 mmol/L Potassium, pl 4.0 3.3 - 4.9 mmol/L Chloride 106 97 - 110 mmol/L CO2 25 22 - 32 mmol/L Anion gap 10 2 - 15 mmol/L BUN 13 6 - 25 mg/dL Creatinine 1.10 0.60 - 1.10 mg/dL Glucose 114 70 - 199 mg/dL Calcium 9.1 8.5 - 10.3 mg/dL Bilirubin, total 0.4 0.1 - 1.2 mg/dL Protein, pl 6.5 6.5 - 8.5 g/dL Albumin 3.5 3.5 - 5.0 g/dL Alk phos 68 40 - 130 Units/L ALT 8 7 - 45 Units/L AST 13 10 - 45 Units/L Troponin T high-sensitivity series (baseline, 2hr, 4hr, 6hr) Collection Time: 10/18/22 3:41 PM Result Value Ref Range Trop T hs 17 (H) <=14 ng/L Differential, auto Collection Time: 10/18/22 3:41 PM Result Value Ref Range Neutrophil abs 4.5 1.7 - 6.5 K/cumm Imm gran abs 0.0 0.0 - 0.1 K/cumm Lymphocyte abs 1.6 0.8 - 3.3 K/cumm Monocyte abs 0.5 0.2 - 0.8 K/cumm Eosinophil abs 0.1 0.0 - 0.5 K/cumm Basophil abs 0.0 0.0 - 0.1 K/cumm Neutrophil pct 67.2 % Imm gran pct 0.3 % Lymphocyte pct 23.9 % Monocyte pct 6.6 % Eosinophil pct 1.6 % Basophil pct 0.4 % eGFR Collection Time: 10/18/22 3:41 PM Result Value Ref Range eGFR 49 mL/min/1.73 m2 ECG 12 lead Collection Time: 10/18/22 4:24 PM Result Value Ref Range Ventricular Rate EKG/Min 94 BPM Atrial Rate 94 BPM ME-Interval (MSEC) 140 ms QRS-Interval (MSEC) 78 ms QT-Interval (MSEC) 384 ms QTc 480 ms P Bonham 70 degrees R Bonham 16 degrees T Bonham 78 degrees Diagnosis Normal sinus rhythm Nonspecific ST and T wave abnormality Prolonged QT Abnormal ECG When compared with ECG of 05-APR-2021 19:40, No significant change was found Troponin T high-sensitivity 2-hour Collection Time: 10/18/22 5:28 PM Result Value Ref Range Trop T hs 17 (H) <=14 ng/L Trop T hs delta 0 ng/L Trop T hs interp Insignificant Urinalysis reflex to microscopic and culture Urine Collection Time: 10/18/22 6:09 PM Specimen: Urine Result Value Ref Range Color, ur Straw Yellow Clarity, ur Clear Clear Specific gravity, ur 1.008 1.003 - 1.030 pH, urine 5.0 Protein, ur ql Negative Negative Glucose, ur ql Negative Negative Ketones, ur Negative Negative Bilirubin, ur Negative Negative Blood, ur Negative Negative Urobilinogen, ur <2.0 <2.0 mg/dL Nitrite, ur Negative Negative Leukocyte esterase, ur Negative Negative UA reflex comment Reflex to microscopic UA will be performed. Urinalysis, microscopic only Collection Time: 10/18/22 6:09 PM Result Value Ref Range WBC, ur 0-5 0 - 5 /HPF RBC, ur 0-2 0 - 2 /HPF Epithelial cells, squamous, ur 21-50 (A) 0 - 5 /HPF Bacteria, ur 4+ (A) Culture Reflex Comment Reflex conditions for urine culture (WBC >10) not met. Troponin T high-sensitivity 4-hour Collection Time: 10/18/22 7:28 PM Result Value Ref Range Trop T hs 18 (H) <=14 ng/L Trop T hs delta 1 ng/L Trop T hs interp Insignificant Troponin T high-sensitivity 6-hour Collection Time: 10/18/22 10:02 PM Result Value Ref Range Trop T hs 17 (H) <=14 ng/L Trop T hs delta 0 ng/L Trop T hs interp Insignificant Comprehensive metabolic panel Collection Time: 10/19/22 2:45 AM Result Value Ref Range Sodium 141 135 - 145 mmol/L Potassium, pl 3.7 3.3 - 4.9 mmol/L Chloride 108 97 - 110 mmol/L CO2 22 22 - 32 mmol/L Anion gap 11 2 - 15 mmol/L BUN 14 6 - 25 mg/dL Creatinine 0.90 0.60 - 1.10 mg/dL Glucose 91 70 - 199 mg/dL Calcium 8.8 8.5 - 10.3 mg/dL Bilirubin, total 0.3 0.1 - 1.2 mg/dL Protein, pl 6.0 (L) 6.5 - 8.5 g/dL Albumin 3.2 (L) 3.5 - 5.0 g/dL Alk phos 70 40 - 130 Units/L ALT 7 7 - 45 Units/L AST 12 10 - 45 Units/L Magnesium Collection Time: 10/19/22 2:45 AM Result Value Ref Range Magnesium 2.1 1.4 - 2.5 mg/dL Phosphorus Collection Time: 10/19/22 2:45 AM Result Value Ref Range Phosphorus, pl 3.5 2.3 - 4.5 mg/dL CBC without differential Collection Time: 10/19/22 2:45 AM Result Value Ref Range WBC 7.7 3.8 - 9.9 K/cumm Hgb 13.4 11.9 - 15.5 g/dL Hct 41.0 35.6 - 45.5 % Plt 176 150 - 400 K/cumm MPV 10.5 9.1 - 12.3 fL RBC 4.32 3.90 - 5.20 M/cumm MCV 94.9 81.3 - 96.4 fL MCH 31.0 27.1 - 33.3 pg MCHC 32.7 32.3 - 35.7 g/dL RDW CV 13.5 11.1 - 14.9 % RDW SD 47.0 35.7 - 48.1 fL NRBC abs 0.00 0.00 - 0.01 K/cumm Lipid panel Collection Time: 10/19/22 2:45 AM Result Value Ref Range Cholesterol 121 30 - 199 mg/dL Triglycerides 130 <=149 mg/dL HDL 47 >=40 mg/dL LDL, calculated 48 <=129 mg/dL Non-HDL Cholesterol 74 mg/dL Chol/HDL ratio 3 Hemoglobin A1c Collection Time: 10/19/22 2:45 AM Result Value Ref Range Hgb A1C 4.9 4.0 - 5.6 % Estimated Average Glucose 94 mg/dL TSH reflex to free T4 Collection Time: 10/19/22 2:45 AM Result Value Ref Range TSH 2.00 0.30 - 4.20 mcIUnit/mL eGFR Collection Time: 10/19/22 2:45 AM Result Value Ref Range eGFR 62 mL/min/1.73 m2 XR Hip Right 2 or 3 Views Result Date: 10/18/2022 Narrative: EXAM DESCRIPTION: XR HIP RIGHT 2 OR 3 VIEWS REASON FOR STUDY: pain Pt states fall today having pain TECHNIQUE: 2 radiographic view(s) of the right hip . COMPARISON: None FINDINGS: Overlying soft tissue on the frontal view limits evaluation. There appears to be grossly normal alignment. No definite fracture. Mild right hip osteoarthritis. IMPRESSION: 1. No gross acute osseous abnormality. THIS IS AN ELECTRONICALLY VERIFIED FINAL REPORT 10/18/2022 6:33 PM - Electronically signed by Oneil Puckett M.D. AG: [email or web address] Report ID: [id number] Reading Location: [id number] CT Head WO Contrast Result Date: 10/18/2022 Narrative: EXAM DESCRIPTION: CT HEAD WO CONTRAST REASON FOR STUDY: multiple falls, confusion Table formatting from the original note was not included. Pt arrived from [facility] via EMS. EMS states multiple falls over past 24 hours. HBP. Some skin tears Pt A. Pt c/o multiple falls, unsure if she fell or hit her head. Denies CP, new shortness of breath. TECHNIQUE: Axial images acquired through thebrain without intravenous contrast. Images stored on PACS. Automated exposure control was used as adose optimization technique for this examination. COMPARISON: None FINDINGS: BRAIN: No hemorrhage, edema or mass effect. No recent infarct. Generalized atrophy and periventricular microvascular whitematter ischemic change. 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 EXTRA-AXIAL SPACES: No fluid collections. No masses. CALVARIUM: No fracture. SINUSES/MASTOIDS: No fluid or mucosal thickening. ORBITS: No significant abnormality. OTHER: No other significant abnormality. IMPRESSION: No acute intracranial findings. THIS IS AN ELECTRONICALLY VERIFIED FINAL REPORT 10/18/2022 5:40 PM - Electronically signed by Jeramie Berkowitz M.D. KT: ANI T: 10/18/2022 5:40 PM Report ID: [id number] Reading Location: [id number] XR Chest 1 Vw Portable Result Date: 10/18/2022 Narrative: EXAM DESCRIPTION: XR CHEST 1 VIEW REASON FOR STUDY: weakness, multiple falls over last 24 hours Pt arrived from [facility] via EMS. EMS states multiple falls over past 24 hours. 128 BG. 18GL AC. HBP. Some skin tears Pt A. Pt c/o multiple falls, unsure if she fell or hit her head. DeniesCP, new shortness of breath. TECHNIQUE: Single frontal radiographic view(s) of the chest. COMPARISON: 04/05/2021 FINDINGS: The heart, mediastinum, and pulmonary vasculature are grossly stable. There are mild atherosclerotic changes of the aorta. There is no definite evidence of a pneumothorax. There is no definite evidence of a focal consolidation or pleural effusion. There are scattered calcified granulomas noted. The osseous structures are acutely grossly stable. IMPRESSION: No acute cardiopulmonary abnormality. THIS IS AN ELECTRONICALLY VERIFIED FINAL REPORT 10/18/2022 4:25 PM - Electronically signed by Dyan Lennon D.O. PS: PS Report ID: [id number] Reading Location: [id number] Current Facility-Administered Medications Medication Dose Route Frequency Provider Last Rate Last Admin acetaminophen (TYLENOL) tablet 650 mg 650 mg oral Q4H PRN Melchor Rangel MD cloNIDine (CATAPRES) tablet 0.1 mg 0.1 mg oral Q8H PRN Melchor Rangel MD 0.1 mg at 10/19/22 0523 enoxaparin (LOVENOX) syringe 40 mg 40 mg subcutaneous Daily-2099 Melchor Rangel MD 40 mgat 10/18/22 2322 FLUoxetine (PROzac) tab/cap 20 mg 20 mg oral Daily Melchor Rangel MD 20 mg at 10/19/22 0837 loperamide (IMODIUM) capsule 2 mg 2 mg oral Daily PRN Melchor Rangel MD pantoprazole DR (PROTONIX) extended release tablet 40 mg 40 mg oral Daily Melchor Rangel MD 40 mg at 10/19/22 0837 ramelteon (ROZEREM) tablet 8 mg 8 mg oral Nightly PRN Melchor Rangel MD A/P: [facility] Principal Problem: Syncope, unspecified syncope type Resolved Problems: No resolved hospital problems. Assessment/plan: Syncope: Status post multiple falls at home: Patient is hemodynamically stable. She is afebrile CT head: Negative Troponin negative so far No cardiac arrhythmia reported Chest x-ray is negative UA is negative No evidence of infection Electrolytes within acceptable range Carotid Doppler/echocardiogram has been requested Requested EEG Cardiology consultation has been requested for further evaluation Urine drug screen was requested earlier which is pending. Fall precautions PT/OT assessment Elevated blood pressure without previous diagnosis of hypertension: Blood pressure is fluctuating Last blood pressure reading has improved. Received 1 time dose of 0.1 mg of clonidine earlier this morning. Continue to monitor blood pressure and will adjust antihypertensive meds. History of GERD: Continue PPI Anxiety/depression: Appears anxious Continue home meds Prozac. Moderate complexity: [facility] Voice recognition software MMTeraDiode Fluency Direct was used dictate and transcribe this document. Personal Shopper variances may occur. Despite proofreading, typographical errors may occur. For patients or family members viewing this note through [employer]: This note was written as a communication tool between healthcare providers and may contain technical language, terminology and abbreviations that is difficult to interpret without advanced medical training. If you have questions or concerns regarding what is written in this note, please request to speak with the primary medical team taking care of you or your family member. Rosemary Espitia MD 10/19/2022 8:58 AM documented in this encounter H&P Notes * Melchor Rangel MD - 10/18/2022 7:36 PM CDT Images from the original note were not included. History and Physical Date of Service: 10/18/2022 Primary Care Physician: Saurabh Valerio MD [phone] CHIEF COMPLAINT: Patient is a 87 y.o. female with a PMHx significant for GERD, anxiety/depression, possible developing dementia. Presents to the ED with a chief complaint of syncopal episodes. HPI: Patient is alert, oriented times person place and year. However she needs prompting to discuss reasons for presentation to the emergency room. Granddaughter is present at bedside. Patient has had frequent falls over the past 24 hours described as syncopal episodes. Patient endorses that she was ambu lating from the bathroom, went to her closet pick out a blouse. She was standing there picked 1 outbut then turned back to see if there was something else she wanted to wear. She states the next thing she recalls is that she was on the floor. She does not fully recall falling to the ground. She does endorse hitting her head. She denies any pain or bony injury at current. She denies associated chest pain, shortness at breath, palpitations, diaphoresis, nausea, vomiting, headache, lightheadedness, dizziness, recent fevers or chills. Granddaughter present at bedside, states that patient moved to the assisted living center approximately 1 year ago. When she moved there she was pretty independent, no confusion or memory issues. However over the past 6-8 months it seems as though patient has been declining cognitively and family's concern about patient developing dementia. Past medical history GERD Anxiety/depression CAD PCI x3 No past surgical history on file. (Not in a hospital admission) Allergies Allergen Reactions Ciprofloxacin Itching Reaction: ITCHING Adhesive Tape-Silicones Other (See comments) Reaction: OTHER REACTION, Sulfa (Sulfonamide Antibiotics) Itching Reaction: ITCHING Social History Tobacco Use Smoking status: Not on file Smokeless tobacco: Not on file Substance and Sexual Activity Drug use: Not on file Sexual activity: Not on file Alcohol Use: Not on file Denies current alcohol use Denies illicit drug use Quit smoking cigarettes 1988 No family history on file. Review of Systems: Review of Systems Constitutional: Negative for appetite change, chills, diaphoresis, fatigue and fever. HENT: Negative for congestion and ear pain. Eyes: Negative for pain and redness. Respiratory: Negative for cough and shortness of breath. Cardiovascular: Negative for chest pain, palpitations and leg swelling. Gastrointestinal: Negative for abdominal distention, abdominal pain, nausea and vomiting. Endocrine: Negative for polydipsia and polyphagia. Genitourinary: Negative for dysuria and flank pain. Musculoskeletal: Negative for arthralgias and back pain. Skin: Negative for color change and pallor. Neurological: Positive for syncope. Negative for light-headedness, numbness and headaches. Psychiatric/Behavioral: Positive for confusion. OBJECTIVE: Vitals: Arrival Vitals Temp 10/18/22 1536 36.8 ??C (98.3 ??F) Pulse 10/18/22 1536 94 Resp 10/18/22 1536 18 BP 10/18/22 1536 (!) 180/106 SpO2 10/18/22 1536 97 % Temp src 10/18/22 1536 Oral Heart Rate Source 10/18/22 1545 Monitor Patient Position 10/18/22 1545 Sitting BP Location 10/18/22 1545 Right arm FiO2 (%) -- Most Recent : Vitals: 10/18/22 1830 10/18/22 1845 10/18/22 1900 10/18/22 1915 BP: 160/91 157/84 134/82 159/91 BP Location: Right arm Right arm Patient Position: Sitting Sitting Pulse: 93 91 110 104 Resp: 18 25 24 16 Temp: TempSrc: SpO2: 98% 98% 96% Weight: Physical Exam: Physical Exam Vitals reviewed. Constitutional: General: She is not in acute distress. Appearance: She is not ill-appearing, toxic-appearing or diaphoretic. HENT: Head: Normocephalic and atraumatic. Right Ear: External ear normal. Left Ear: External ear normal. Nose: Nose normal. Mouth/Throat: Mouth: Mucous membranes are moist. Eyes: Extraocular Movements: Extraocular movements intact. Pupils: Pupils are equal, round, and reactive to light. Cardiovascular: Rate and Rhythm: Normal rate and regular rhythm. Pulses: Normal pulses. Heart sounds: Normal heart sounds. Pulmonary: Effort: Pulmonary effort is normal. Breath sounds: Normal breath sounds. Abdominal: General: There is no distension. Palpations: Abdomen is soft. Tenderness: There is no abdominal tenderness. Musculoskeletal: General: Normal range of motion. Cervical back: Normal range of motion and neck supple. Right lower leg: No edema. Left lower leg: No edema. Skin: General: Skin is warm and dry. Neurological: General: No focal deficit present. Mental Status: She is alert and oriented to person, place, and time. Cranial Nerves: No cranial nerve deficit. Sensory: No sensory deficit. Motor: No weakness. Coordination: Coordination normal. Psychiatric: Mood and Affect: Mood normal. Behavior: Behavior normal. Lab/Radiology/Diagnostic Review: Recent Results (from the past 24 hour(s)) CBC with auto differential Collection Time: 10/18/22 3:41 PM Result Value Ref Range WBC 6.8 3.8 - 9.9 K/cumm Hgb 14.1 11.9 - 15.5 g/dL Hct 43.2 35.6 - 45.5 % Plt 202 150 - 400 K/cumm MPV 10.7 9.1 - 12.3 fL RBC 4.49 3.90 - 5.20 M/cumm MCV 96.2 81.3 - 96.4 fL MCH 31.4 27.1 - 33.3 pg MCHC 32.6 32.3 - 35.7 g/dL RDW CV 13.7 11.1 - 14.9 % RDW SD 48.4 (H) 35.7 - 48.1 fL NRBC abs 0.00 0.00 - 0.01 K/cumm Comprehensive metabolic panel Collection Time: 10/18/22 3:41 PM Result Value Ref Range Sodium 141 135 - 145 mmol/L Potassium, pl 4.0 3.3 - 4.9 mmol/L Chloride 106 97 - 110 mmol/L CO2 25 22 - 32 mmol/L Anion gap 10 2 - 15 mmol/L BUN 13 6 - 25 mg/dL Creatinine 1.10 0.60 - 1.10 mg/dL Glucose 114 70 - 199 mg/dL Calcium 9.1 8.5 - 10.3 mg/dL Bilirubin, total 0.4 0.1 - 1.2 mg/dL Protein, pl 6.5 6.5 - 8.5 g/dL Albumin 3.5 3.5 - 5.0 g/dL Alk phos 68 40 - 130 Units/L ALT 8 7 - 45 Units/L AST 13 10 - 45 Units/L Troponin T high-sensitivity series (baseline, 2hr, 4hr, 6hr) Collection Time: 10/18/22 3:41 PM Result Value Ref Range Trop T hs 17 (H) <=14 ng/L Differential, auto Collection Time: 10/18/22 3:41 PM Result Value Ref Range Neutrophil abs 4.5 1.7 - 6.5 K/cumm Imm gran abs 0.0 0.0 - 0.1 K/cumm Lymphocyte abs 1.6 0.8 - 3.3 K/cumm Monocyte abs 0.5 0.2 - 0.8 K/cumm Eosinophil abs 0.1 0.0 - 0.5 K/cumm Basophil abs 0.0 0.0 - 0.1 K/cumm Neutrophil pct 67.2 % Imm gran pct 0.3 % Lymphocyte pct 23.9 % Monocyte pct 6.6 % Eosinophil pct 1.6 % Basophil pct 0.4 % eGFR Collection Time: 10/18/22 3:41 PM Result Value Ref Range eGFR 49 mL/min/1.73 m2 Troponin T high-sensitivity 2-hour Collection Time: 10/18/22 5:28 PM Result Value Ref Range Trop T hs 17 (H) <=14 ng/L Trop T hs delta 0 ng/L Trop T hs interp Insignificant Urinalysis reflex to microscopic and culture Urine Collection Time: 10/18/22 6:09 PM Specimen: Urine Result Value Ref Range Color, ur Straw Yellow Clarity, ur Clear Clear Specific gravity, ur 1.008 1.003 - 1.030 pH, urine 5.0 Protein, ur ql Negative Negative Glucose, ur ql Negative Negative Ketones, ur Negative Negative Bilirubin, ur Negative Negative Blood, ur Negative Negative Urobilinogen, ur <2.0 <2.0 mg/dL Nitrite, ur Negative Negative Leukocyte esterase, ur Negative Negative UA reflex comment Reflex to microscopic UA will be performed. Urinalysis, microscopic only Collection Time: 10/18/22 6:09 PM Result Value Ref Range WBC, ur 0-5 0 - 5 /HPF RBC, ur 0-2 0 - 2 /HPF Epithelial cells, squamous, ur 21-50 (A) 0 - 5 /HPF Bacteria, ur 4+ (A) Culture Reflex Comment Reflex conditions for urine culture (WBC >10) not met. XR Hip Right 2 or 3 Views Result Date: 10/18/2022 Overlying soft tissue on the frontal view limits evaluation. There appears to be grossly normal alignment. No definite fracture. Mild right hip osteoarthritis. IMPRESSION: 1. No gross acute osseous abnormality. CT Head WO Contrast Result Date: 10/18/2022 BRAIN: No hemorrhage, edema or mass effect. No recent infarct. Generalized atrophy and periventricular microvascular white matter ischemic change. 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 EXTRA-AXIAL SPACES: No fluid collections. No masses. CALVARIUM: No fracture. SINUSES/MASTOIDS: No fluid or mucosal thickening. ORBITS: No significant abnormality. OTHER: No other significant abnormality. IMPRESSION: No acute intracranial findings. XR Chest 1 Vw Portable Result Date: 10/18/2022 The heart, mediastinum, and pulmonary vasculature are grossly stable. There are mild atherosclerotic changes of the aorta. There is no definite evidence of a pneumothorax. There is no definite evidence of a focal consolidation or pleural effusion. There are scattered calcified granulomas noted. Theosseous structures are acutely grossly stable. IMPRESSION: No acute cardiopulmonary abnormality. ASSESSMENT/PLAN: Active Problems: No Active Problems: There are no active problems currently on the Problem List. Please update the Problem List and refresh. Resolved Problems: No resolved hospital problems. Syncope: Patient presents with multiple falls described as syncopal in nature, patient does not recall the falls and essentially wakes up on the floor. Workup thus far has been relatively unremarkable. Continue telemetry monitoring, plan for echocardiogram in the morning. Workup has included evaluation for: -CVA: No focal neurological deficits appreciated on examination. NIH of 0. CT of the head negative for acute intracranial pathologies. -orthostatics negative -ACS: No chest pain or shortness a breath. Troponin minimally elevated x2 with insignificant delta.EKG without acute ischemic changes. -infection: 1 of 4 sirs criteria, heart rate greater than 90 beats per minute. Chest x-ray negativefor acute infectious infiltrate. Urinalysis negative for acute cystitis. Abdominal examination unremarkable. No nuchal rigidity. No findings on skin survey to suggest cellulitis. -electrolyte derangements: None appreciated on initial laboratory data. Magnesium phosphorus levelspending. -hypo or hyperglycemia: Glucose 114 on presentation. -hypoxia/hypercapnia: Maintaining appropriate O2 saturations on room air. No respiratory distress or complaints. Bicarb within normal limits on BMP. -anemia: Hemoglobin stable within normal limits -arrhythmia: Monitoring on telemetry throughout the evening. Currently normal sinus rhythm. -seizure: No reported periods of postictal like activity. No history of seizures. No loss of bowel or bladder. -medication effect: No recent new medications reported. No sedating medications appreciated on homemedication list. -urine drug screen pending Elevated blood pressure without history of hypertension: Initially elevated 150s to 180s over 100s.Most recently 130s to 160s over 80s to 90s. Monitor closely and add antihypertensives as needed GERD: Continue PPI Anxiety/depression: Continue Prozac ESTIMATED LENGTH OF STAY: Greater than 2 midnights My total encounter time on 10/18/2022 was 62 minutes which was spent in the activities documented inthe note. This includes time spent prior to the visit and after the visit in direct care of the patient. This time does not include time spent in any separately reportable services. Medical Decision Making Complexity: Moderate DVT prophylaxis: High risk, utilize subcutaneous Lovenox for VTE prophylaxis Full code per discussion with patient and granddaughter at bedside Voice recognition software MModal Fluency Direct may have been used to dictate and transcribe this document. Personal Shopper variances may occur. Despite proofreading, typographical errors may occur. Melchor Rangel MD 10/18/2022 7:36 PM documented in this encounter Procedure Notes * Reilly Brambila MD - 10/21/2022 11:30 AM CDTAssociated Order(s): EEG Reason for exam: passing out episodes Technical: This is a digitally recorded electroencephalogram. It was just over 23 minutes long. The international 10-20 electrode placement system is used for scalp electrode placement. Eighteen channels of scalp EEG are recorded. One channel was used for EOG. Another channel was used for ECG. Thedata are stored digitally and reviewed in reformatted montages for optimal display. Background: 6-7 hertz background activity was seen. Maximal over the posterior head region. These activities are symmetric on both sides. They attenuated with eye opening. Description: No focal slowing was seen. No seizure like activity was observed during this recording. Patient entered into periods of drowsiness and light sleep. Hyperventilation was not performed due to patient's clinical condition. Photic stimulation was performed without any additional abnormalities. Impression: Mild slowing of the PDR, which can sometimes be seen in dementia or mild encephalopathy. No focal slowing no seizure like activity was observed. Correlation with clinical findings is needed. documented in this encounter Consult Notes * Rosa Hi, SILVIANO - 10/19/2022 10:55 AM CDTAssociated Order(s): IP CONSULT TO NUTRITION SERVICES Nutrition Assessment Reason for Assessment: Initial Nutrition Assessment and Consult/Referral Encounter Date: 10/19/22 3:02 PM Patient is a 87 y.o. female. Admit Dx: Syncope, unspecified syncope type [R55]. Admitted on 10/18/2022, current LOS is 0 days. Nutrition Diagnosis 1: Increased energy expenditure Related to: Acute illness/injury Evidenced by: Patient interview ASPEN Malnutrition Assessment: Date of completion (or initial diagnosis): 10/19/22 Patient does not meet criteria for malnutrition based on ASPEN guidelines. Nutrition-focused physical exam (NFPE) findings: ASSESSMENT AND INTERVENTION/RECOMMENDATIONS: Acknowledging consult for family request. Patient was admitted under observation for syncope. Past medical history includes GERD. She was on a regular diet but diet changed to cardiac (no caffeine, low Na, low Chol) with no meals documented as of yet. Patient stated she is not experiencing any GI symptoms. Her appetite is wacky. However she did eat 100% for her lunch. Cardiac diet explained to kandice walls and family member present in room. She thinks she was eating good PA[employer]ARD. She was not sure of herUBW but stated the 146 lbs sounded about right. No recent weight history in EMR/ Care Everywhere over the last year. She is from [facility]. Discharge plan pending hospital course. EDUCATION NEEDED/COMPLETED? N/A GOALS / MONITORING: Goals: Adequate nutrition to meet estimated needs by next assessment, Oral intake to meet 75% estimated nutritional needs by next assessment Interventions: Assess for nutrition changes, Initial assessment, Encouragement, Regular weights Monitoring and Evaluation: Diet-related questions, I/O, Labs, Plan of care, PO intake, Weight changes Anthropometrics: Wt Readings from Last 10 Encounters: 10/19/22 66.5 kg (146 lb 8 oz) 04/05/21 73.8 kg (162 lb 11.2 oz) Anthropometrics Weight: 66.5 kg (146 lb 8 oz) Admission Weight : 73.4 kg Weight Change: 0.00 kg (0.00 lbs) IBW/kg (Calculated) : 49.9 kg Height: 157.5 cm (5' 2 ) Weight in (lb) to have BMI = 25: 136.4 BMI (Calculated): 26.8 Estimated Nutrition Needs: Calories Calculated Energy Needs Using Equations Weight Used for Equation Calculations (RD Determined): 66.5 kg (146 lb 8 oz) Weight: 66.5 kg (146 lb 8 oz) Height: 157.5 cm (5' 2 ) Kcal/kg Type of Weight Used for Estimated Kcals: Current Kcal/k (per Older Adult Recommendation) Total Kcal/kg Estimated Needs : 1661.3 Protein Estimated Protein Needs Type of Weight Used for Estimated Protein : Current Protein Needs Based on g/k.0 Total Protein Estimated Needs (gm): 66.45 Fluid Estimated Fluid Needs Type of Weight Used for Estimated Fluid Needs: Current Fluid Needs Based on : 25 ml/kg Total Fluid Estimated Needs: 1661.3 Medications: Lovenox, Protonix Lab Review: Reviewed No past medical history on file. No past surgical history on file. Dietary Orders (From admission, onward) Start Ordered 10/19/22 1114 Adult Diet Restricted; Cardiac (No caffeine, Low Na, Low Chol) Diet effective now Question Answer Comment (MHB/MHE) Diet type Restricted Fat / Sodium Restriction: Cardiac (No caffeine, Low Na, Low Chol) 10/19/[address] office at [phone] with any nutrition-related questions. Nutrition Follow-Up : 10/24/22 (PO Check) * Lore Hendrickson MD - 10/19/2022 10:27 AM CDTAssociated Order(s): IP CONSULT TO CARDIOLOGY Cardiology Consult Note Patient Name: Emerald Myers : 1935 Date of Service: 10/19/22 Requesting Attending: Rosemary Espitia MD Reason for Consult: Other: syncope Chief Complaint: Falls, HPI Emerald Myers is a 87 y.o. female with a history of GERD come anxiety and depression, dementia. He has been falling frequently over the last 24 hours. It is not clear if he has been just falling or he passed out he did hit his head. Over the last 6-8 months the family has noted I cognitive decline.She is not sure that she is passed out. CT of the head showed no acute intracranial abnormalities. High sensitivity troponin Ts were 17, 17, 18 and 17. Sodium 141 potassium 3.7, BUN 14 creatinine 0.9protein 6.0 albumin 3.2, white blood cell count 7700, hemoglobin 13.4, platelet count [id number], cholesterol 121, HDL 47, LDL 48, triglycerides 130. Chest x-ray shows no acute cardiopulmonary abnormality. I have personally reviewed her EKG which shows normal sinus rhythm with rate of 94 beats minute there is no real significant ST or T-wave changes suspicious for ischemia. She does have a QT corrected of 480 milliseconds done yesterday EKG done today just shows some nonspecific ST abnormality sinus rhythm with some occasional PVCs QT corrected is normal at 459 milliseconds. She does complain of chronic shortness of breath with exertion. She denies any chest pain, paroxsymal nocturnal dyspnea, orthopnea, dizziness, syncope, palpitations or edema. Review of Systems: 12 system review of systems are negative except for what is noted in the HPI PMHX: Depression, dementia, GERD PSHX: None Family Hx: Hypertension Social Hx: No alcohol history on file. Allergies: Allergies Allergen Reactions Ciprofloxacin Itching Reaction: ITCHING Adhesive Tape-Silicones Other (See comments) Reaction: OTHER REACTION, Sulfa (Sulfonamide Antibiotics) Itching Reaction: ITCHING Home Medications: HOME MEDICATIONS : ascorbic acid 500 mg tablet,chewable calcium carbonate (OS-JEROD) 1,500 mg (600 mg elemental) tablet cholestyramine-aspartame (QUESTRAN LIGHT) 4 gram powder in packet FLUoxetine (PROzac) 20 mg tablet hyoscyamine ER (LEVBID) 0.375 mg 12 hr tablet lansoprazole (PREVACID) 30 mg capsule loperamide (IMODIUM) 2 mg capsule raloxifene (EVISTA) 60 mg tablet evolocumab (Repatha Syringe) syringe syringe Current Medications: amLODIPine, 5 mg, oral, Daily enoxaparin, 40 mg, subcutaneous, Daily-2100 FLUoxetine, 20 mg, oral, Daily pantoprazole DR, 40 mg, oral, Daily Objective Vital Signs: 24hr Min/Max: Temp Min: 36.3 ??C (97.4 ??F) Max: 36.9 ??C (98.4 ??F) Pulse Min: 86 Max: 110 BP Min: 134/82 Max: 186/80 Resp Min: 16 Max: 25 SpO2 Min: 93 % Max: 98 % Most Recent: Vitals: 10/19/22 0759 BP: 153/76 Pulse: 87 Resp: 16 Temp: 36.3 ??C (97.4 ??F) SpO2: 94% Intake/Output: Intake/Output Summary (Last 24 hours) at 10/19/2022 1027 Last data filed at 10/19/2022 0642 Gross per 24 hour Intake -- Output 300 ml Net -300 ml Physical Exam: GENERAL APPEARANCE: The patient is in no acute distress. HEAD: Atraumatic, normocephalic. EYES: No scleral icterus. NECK/THYROID: Neck is supple without lymphadenopathy. Carotid pulses 2+, normal carotid upstroke, no carotid bruits. SKIN: No rashes and no jaundice seen. HEART: The rhythm and rate regular. S1 and S2 were auscultated with no murmurs gallops or rubs. LUNGS: Clear to auscultation bilaterally. ABDOMEN: Normal bowel sounds, soft nondistended, no tenderness. EXTREMITIES: No cyanosis, clubbing or edema. NEUROLOGIC: Grossly intact. PSYCH: Alert and oriented x 3. Lab/Radiology/Diagnostic Review: Labs: Recent Labs Lab Units 10/19/22 0245 10/18/22 1541 HEMOGLOBIN g/dL 13.4 14.1 HEMATOCRIT % 41.0 43.2 WBC K/cumm 7.7 6.8 PLATELETS K/cumm 176 202 Recent Labs Lab Units 10/19/22 0245 SODIUM mmol/L 141 POTASSIUM PLASMA mmol/L 3.7 CHLORIDE mmol/L 108 CO2 mmol/L 22 ANIONGAP mmol/L 11 BUN SERUM mg/dL 14 CREATININE mg/dL 0.90 CALCIUM mg/dL 8.8 MAGNESIUM mg/dL 2.1 Recent Labs Lab Units 10/19/22 0245 ALBUMIN g/dL 3.2* ALK PHOS Units/L 70 AST Units/L 12 ALT Units/L 7 BILIRUBIN TOTAL mg/dL 0.3 Recent Labs Lab Units 10/19/22 0245 TSH mcIUnit/mL 2.00 Assessment/Plan Falls, not clear if she had syncope, Dyspnea on exertion Hypertension poorly controlled, amlodipine added by the hospitalist History of anxiety and depression Dementia GERD Hypoproteinemia, hypoalbuminemia Plan-I will check orthostatics and check her blood pressure lying sitting and standing to see if she is orthostatic causing her to fall. I will check a 2D echo with Doppler. I will her monitor on telemetry. I will set her up for a Lexiscan Myoview stress test I was planning to do a today however she had caffeine today so will plan to do it tomorrow. It will be done tomorrow with my associate Dr. Zhang. Recommend physical therapy evaluation for her gait . I will add losartan 50 mg daily to hermedical regimen to better control her blood pressure will check a CMP in the morning. Thank you for allowing me to participate in the patient's care. I will follow along with you. Medical decision: Making moderate Risk: Moderate I communicated my plan of care with the hospitalist caring for the patient Lore Hendrickson MD Cardiology 10:27 AM 10/19/22 documented in this encounter Nursing Notes * Jesse Be RN - 10/21/2022 11:06 AM CDT Patient discharged to home via private accompanied by step daughter. Discharge instructions reviewed with patient and/or international account representative. Mobile pharmacy medications and/or prescriptions provided. Belongings/home medications returned. * Jesse Be RN - 10/21/2022 11:06 AM CDT .surg documented in this encounter ED Notes * Yahir Pickett, - 10/18/2022 4:21 PM CDTAssociated Order(s): ECG 12 lead Chief Complaint Patient presents with Weakness - Generalized HPI HPI Emerald Myers is a 87 y.o. female w/ no pertinent PMHx presenting to the ED w/ c/o LE weakness. Pt states it is difficult to move her legs. Pt endorses associated diarrhea and unexpected weight loss.Pt denies CP, abdominal pain, trouble urinating, dizziness, or any other associated symptoms. Pt reports she has fallen multiple times within the past 24 hours secondary to the leg weakness. Pt statesduring her falls she does not experience LOC and is able to recall the event. Pt states today she experienced a fall and suffered a right arm injury. No past medical history on file. No past surgical history on file. No family history on file. Social History Tobacco Use Smoking status: Unknown Smokeless tobacco: None Substance and Sexual Activity Drug use: None Sexual activity: None Alcohol Use: Not on file Review of Systems Review of Systems Constitutional: Negative for chills, fever and unexpected weight change. HENT: Negative for ear pain and sore throat. Eyes: Negative for pain and visual disturbance. Respiratory: Negative for cough and shortness of breath. Cardiovascular: Negative for chest pain and palpitations. Gastrointestinal: Positive for diarrhea. Negative for abdominal pain and vomiting. Genitourinary: Negative for difficulty urinating, dysuria and hematuria. Musculoskeletal: Negative for arthralgias and back pain. Skin: Negative for color change and rash. Neurological: Positive for weakness. Negative for dizziness, seizures and syncope. All other systems reviewed and are negative. Physical Exam ED Triage Vitals Temp Pulse Resp BP SpO2 10/18/22 1536 10/18/22 1536 10/18/22 1536 10/18/22 1536 10/18/22 1536 36.8 ??C (98.3 ??F) 94 18 (!) 180/106 97 % Temp src Heart Rate Source Patient Position BP Location FiO2 (%) 10/18/22 1536 10/18/22 1545 10/18/22 1545 10/18/22 1545 -- Oral Monitor Sitting Right arm Height Height Method Weight Weight Method 10/18/22224910/18/22 22510/18/22 1536 10/18/22 1536 1.575 m (5' 2 ) Stated 73.4 kg (161 lb 13.1 oz) Bed scale Physical Exam Vitals and nursing note reviewed. Constitutional: General: She is not in acute distress. Appearance: She is well-developed. Comments: Elderly. Frail. HENT: Head: Normocephalic and atraumatic. Eyes: Conjunctiva/sclera: Conjunctivae normal. Cardiovascular: Rate and Rhythm: Normal rate and regular rhythm. Heart sounds: No murmur heard. Pulmonary: Effort: Pulmonary effort is normal. No respiratory distress. Breath sounds: Normal breath sounds. Abdominal: Palpations: Abdomen is soft. Tenderness: There is no abdominal tenderness. Musculoskeletal: General: No swelling. Cervical back: Neck supple. Skin: General: Skin is warm and dry. Capillary Refill: Capillary refill takes less than 2 seconds. Neurological: Mental Status: She is alert. Comments: AxO x2. Poor historian. Psychiatric: Mood and Affect: Mood normal. ECG 12 lead Date/Time: 10/18/2022 4:27 PM Performed by: Jessica Carias Authorized by: Yahir Pickett DO Rate: ECG rate: 94 ECG rate assessment: normal Rhythm: Rhythm: sinus rhythm Ectopy: Ectopy: none QRS: QRS axis: Normal QRS intervals: Normal Conduction: Conduction: normal ST segments: ST segments: Normal T waves: T waves: normal Interpretation: Interpretation: normal Labs Reviewed CBC WITH AUTO DIFFERENTIAL - Abnormal Result Value WBC 6.8 Hgb 14.1 Hct 43.2 Plt 202 MPV 10.7 RBC 4.49 MCV 96.2 MCH 31.4 MCHC 32.6 RDW CV 13.7 RDW SD 48.4 (*) NRBC abs 0.00 TROPONIN T HIGH-SENSITIVITY SERIES (BASELINE, 2HR, 4HR, 6HR) - Abnormal Trop T hs 17 (*) TROPONIN T HIGH-SENSITIVITY 2-HOUR - Abnormal Trop T hs 17 (*) Trop T hs delta 0 Trop T hs interp Insignificant TROPONIN T HIGH-SENSITIVITY 4-HR - Abnormal Trop T hs 18 (*) Trop T hs delta 1 Trop T hs interp Insignificant TROPONIN T HIGH-SENSITIVITY 6-HOUR - Abnormal Trop T hs 17 (*) Trop T hs delta 0 Trop T hs interp Insignificant URINALYSIS, MICROSCOPIC ONLY - Abnormal WBC, ur 0-5 RBC, ur 0-2 Epithelial cells, squamous, ur 21-50 (*) Bacteria, ur 4+ (*) Culture Reflex Comment Value: Reflex conditions for urine culture (WBC >10) not met. COMPREHENSIVE METABOLIC PANEL - Abnormal Sodium 141 Potassium, pl 3.7 Chloride 108 CO2 22 Anion gap 11 BUN 14 Creatinine 0.90 Glucose 91 Calcium 8.8 Bilirubin, total 0.3 Protein, pl 6.0 (*) Albumin 3.2 (*) Alk phos 70 ALT 7 AST 12 COMPREHENSIVE METABOLIC PANEL - Abnormal Sodium 141 Potassium, pl 3.9 Chloride 106 CO2 26 Anion gap 9 BUN 16 Creatinine 1.00 Glucose 93 Calcium 8.7 Bilirubin, total 0.4 Protein, pl 5.7 (*) Albumin 3.0 (*) Alk phos 67 ALT 8 AST 12 URINALYSIS AND REFLEX TO MICROSCOPIC AND CULTURE Color, ur Straw Clarity, ur Clear Specific gravity, ur 1.008 pH, urine 5.0 Protein, ur ql Negative Glucose, ur ql Negative Ketones, ur Negative Bilirubin, ur Negative Blood, ur Negative Urobilinogen, ur <2.0 Nitrite, ur Negative Leukocyte esterase, ur Negative UA reflex comment Reflex to microscopic UA will be performed. Narrative: Urine pH is affected by diet, medications, systemic acid-base disturbances, and renal tubular function. pH may affect urinary stone formation. For example, urine pH below 6.0 may help reduce the tendency for calcium phosphate stones and pH greater than 6.0 may reduce the tendency for uric acid stone formation. Source: [facility] [employer].Last revised 05-02-2017 COMPREHENSIVE METABOLIC PANEL Sodium 141 Potassium, pl 4.0 Chloride 106 CO2 25 Anion gap 10 BUN 13 Creatinine 1.10 Glucose 114 Calcium 9.1 Bilirubin, total 0.4 Protein, pl 6.5 Albumin 3.5 Alk phos 68 ALT 8 AST 13 DIFFERENTIAL AUTO Neutrophil abs 4.5 Imm gran abs 0.0 Lymphocyte abs 1.6 Monocyte abs 0.5 Eosinophil abs 0.1 Basophil abs 0.0 Neutrophil pct 67.2 Imm gran pct 0.3 Lymphocyte pct 23.9 Monocyte pct 6.6 Eosinophil pct 1.6 Basophil pct 0.4 EGFR eGFR 49 MAGNESIUM Magnesium 2.1 PHOSPHORUS Phosphorus, pl 3.5 CBC WITHOUT DIFFERENTIAL WBC 7.7 Hgb 13.4 Hct 41.0 Plt 176 MPV 10.5 RBC 4.32 MCV 94.9 MCH 31.0 MCHC 32.7 RDW CV 13.5 RDW SD 47.0 NRBC abs 0.00 LIPID PANEL Cholesterol 121 Triglycerides 130 HDL 47 LDL, calculated 48 Non-HDL Cholesterol 74 Chol/HDL ratio 3 HEMOGLOBIN A1C Hgb A1C 4.9 Estimated Average Glucose 94 TSH REFLEX TO FREE T4 TSH 2.00 EGFR eGFR 62 EGFR eGFR 55 DRUGS OF ABUSE SCREEN, URINE WITHOUT CONFIRMATION NM MPI Spect (Rest And Stress) Multiple Studies Final Result Stress Test for Myocardial Perfusion Final Result US Carotids Duplex Bilateral Final Result Transthoracic Echo (TTE) Complete W Doppler/CF Final Result XR Hip Right 2 or [address] Head WO Contrast Final Result XR Chest 1 Vw Portable Final Result EEG (Results Pending) BP 162/76 (BP Location: Left arm, Patient Position: Lying;HOB 30 degrees) Pulse 92 Temp 36.6 ??C (97.9 ??F) (Oral) Resp 20 Ht 157.5 cm (5' 2 ) Wt 67.2 kg (148 lb 3.2 oz) SpO2 95% BMI 27.11 kg/m?? [facility] ED Course as of 10/21/22 0535 Time: 10/18 1800 Comment: Signed out to Dr. Lennon at shift change. Pending labs. By: Jessica Carias Final diagnoses: Syncope, unspecified syncope type This note is prepared by Jessica Carias, acting as a scribe for Yahir Pickett MD. I electronically signed this note at 5:35 AM on 10/21/2022. I, Yahir Pickett MD, have personally performed the services described in the documentation, reviewed and edited the documentation which was dictated to the scribe in my presence, and it accurately records my words and actions. Jessica Carias 10/18/22 1628 Yahir Pickett DO 10/21/22 0535 * Shannan Pagan RN - 10/18/2022 3:32 PM CDT Pt arrived from [facility] via EMS. EMS states multiple falls over past 24 hours. 128 BG. 18G L AC. HBP. Some skin tears Pt A&Ox4. Pt c/o multiple falls, unsure if she fell or hit her head. Denies CP, new shortness of breath. documented in this encounter Miscellaneous Notes * Plan of Care - Blessing Avendano RN - 10/21/2022 4:43 AM CDT Goals: Clinical Goals for the Shift: safety, comfort Summary: comfort needs met, safety maintained Problem: Health Behavior: Goal: Understanding of discharge [...] injury in home environment Outcome: Progressing Problem: Lack of Knowledge: Goal: [...] improve to fullest extent possible Outcome: Progressing * Plan of Care - Tosin Arciniega RN - 10/20/2022 12:03 PM CDT Goals: Clinical Goals for the Shift: SAFETY, STRESS TEST Problem: Health Behavior: Goal: Understanding of discharge [...] injury in home environment Outcome: Progressing Problem: Lack of Knowledge: Goal: [...] improve to fullest extent possible Outcome: Progressing * Plan of Fidelina - Blessing Avendano RN - 10/20/2022 3:54 AM CDT Goals: Clinical Goals for the Shift: comfort, safety Summary: Safety maintained, comfort needs met Problem: Health Behavior: Goal: Understanding of discharge [...] injury in home environment Outcome: Progressing Problem: Lack of Knowledge: Goal: [...] improve to fullest extent possible Outcome: Progressing * Plan of Care - Reyna Brasher RN - 10/19/2022 4:33 PM CDT Problem: Health Behavior: Goal: Understanding of [...] injury in home environment Outcome: Progressing Problem: Lack of Knowledge: Goal: Ability to state ways to decrease the risk of falls will improve Outcome: Progressing Problem: Safety: Goal: Will remain free from falls Outcome: Progressing Goal: Will remain free from injury from falls Outcome: Progressing Goal: Will remain free from falls and injury in home environment Outcome: Progressing Goals: Summary: Pt remains free from falls this shift. IKE wolfe walker delivered. Stress test to be performed tomorrow. Pt is not to receive any caffeine prior to stress test. * Initial Assessments - Elvia López RN - 10/19/2022 2:56 PM CDT CM Initial Assessment Interview Note Information Obtained From: Patient (10/19/22 9153) Admission Source: Emergency Impression: Multiple falls within 24 hours Plan Includes: telemetry monitoring, daily weights, TTE, Carotid duplex dopplers, Met with patient and daughter at bedside, daughter is able to transport at discharge. DME Rolator walker ordered from [employer]. [facility]ar able to readmit. Primary Source of Transportation: Does the patient need discharge transport arranged?: No (10/19/22 5755) Health Insurance Coverage: Medicare Pharmacy: No Pharmacies Listed Primary Care Provider: Saurabh Valerio MD Prior to Admission: Functional Status: Minimal assist with ADLs Primary Caregiver: Family Who does the patient or legal guardian want to receive education instruction and discharge plans for after care assistance?: Decline Support System: Family members Durable Medical Equipment: Walker (wheeled) Living Arrangements: Alone Type of Residence: Assisted living Does patient wish to return to care facility?: Yes, wishes to return Will the care facility allow the patient to return?: Yes, patient can return Care [facility] Facility contact name and number:: Hansa [phone] (10/18/222202) SDOH: Transportation: In the past 12 months, has lack of transportation kept you from medical appointments or from getting medications?: No In the past 12 months, has lack of transportation kept you from meetings, work, or from getting things needed for daily living?: No (10/19/22 647) Financial Resource: How hard is it for you to pay for the very basics like food, housing, medical care, and heating?: Not hard at all (10/19/22 806) Housing: In the last 12 months, was there a time when you were not able to pay the mortgage or rent on time?: No In the last 12 months, was there a time when you did not have a steady place to sleep or slept in ashelter (including now)?: No (10/19/22 054) Social Connections: In a typical week, how many times do you talk on the phone with family, friends, or neighbors?: More than three times a week How often do you get together with friends or relatives?: More than three times a week How often do you attend worship or mandaen services?: Never Do you belong to any clubs or organizations such as worship groups, unions, fraternal or athletic groups, or school groups?: No How often do you attend meetings of the clubs or organizations you belong to?: Never Are you , , , , never , or living with a partner?: (10/19/22 574) Food Insecurity: Within the past 12 months, you worried that your food would run out before you got the money to buymore.: Never true Within the past 12 months, the food you bought just didn't last and you didn't have money to get more.: Never true (10/19/221454) Behavioral Health Services: Behavioral Health Services: No (10/19/221438) Patient expects to be Discharged to: Assisted Living, (10/19/221438) Patient's Identified Problem/Goal Problem: Ensure acute medical needs are met and that patient has a safe discharge plan. Goal: Secure a discharge plan that patient/family are agreeable with and ensure patient has continuum of care. Case management will follow for discharge planning and send referrals as needed. Goals include: To assure continuity of care, To maximize coping skills, To assure patient is in a safe environment and To assure access to community resources. Plan includes: 1. Collaboration with patient, MD, direct care nurse, Utility Sales And Service Manager, and other members of the health care team to assure needed interventions completed. 2. Return patient to optimal level of self-care post discharge. 3. Chisel Worker will follow for Discharge Planning - interventions as needed 4. Anticipated level of care at discharge 5. Planned Discharge Disposition Elvia López RN * ED Re-evaluation Note - Ken Lennon MD - 10/18/2022 8:05 PM CDT ED Re-evaluation Pt signed out to me pending further evaluation. Please see original provider note for full H&P. Briefly, Emerald Myers is a 87 y.o. y/o female who presents today with near syncope and frequent falls. Please see initial provider for full H&P. Labs are unremarkable. Orthostatics are negative.Pt ambulated in the ED but was not steady on her gait. Due to concern for recent syncopal episodes,frequent falls, and gait issues, she will be admitted for cardiac workup and possible placement. Plan of care discussed with pt's daughter and grand daughter at bedside and patient who are agreeable with plan of care. Hospitalist accepts the patient. Vitals stable on admission. Vitals: 10/18/221999 BP: 167/83 Pulse: 99 Resp: 22 Temp: SpO2: 95% Clinical Impression: Syncope, unspecified syncope type Ken Lennon MD 10/18/222009 documented in this encounter Plan of Treatment Not on file documented as of this encounter Procedures Procedure Name Priority Date/Time Associated Diagnosis Comments NM MPI SPECT (REST AND/OR STRESS) MULTIPLE STUDIES IP Routine 10/20/2022 11:55 AM CDT STRESS TEST FOR DUAL READ IP Routine 10/20/2022 11:55 AM CDT EGFR Routine 10/20/2022 4:31 AM CDT COMPREHENSIVE METABOLIC PANEL Routine 10/20/2022 4:31 AM CDT EEG Routine 10/19/2022 2:04 PM CDT US CAROTIDS DUPLEX BILATERAL IP Routine 10/19/2022 10:48 AM CDT TRANSTHORACIC ECHO (TTE) COMPLETE W DOPPLER/CF WO CONTRAST Routine 10/19/2022 9:51 AM CDT ECG 12-LEAD Routine 10/19/2022 6:26 AM CDT EGFR Routine 10/19/2022 2:45 AM CDT THYROID FUNCTION CASCADE Routine 10/19/2022 2:45 AM CDT CBC WITHOUT DIFFERENTIAL Routine 10/19/2022 2:45 AM CDT PHOSPHORUS Routine 10/19/2022 2:45 AM CDT MAGNESIUM Routine 10/19/2022 2:45 AM CDT HEMOGLOBIN A1C Routine 10/19/2022 2:45 AM CDT LIPID PANEL Routine 10/19/2022 2:45 AM CDT COMPREHENSIVE METABOLIC PANEL Routine 10/19/2022 2:45 AM CDT TROPONIN T HIGH-SENSITIVITY 6-HOUR Timed 10/18/2022 10:02 PM CDT TROPONIN T HIGH-SENSITIVITY 4-HR Timed 10/18/2022 7:28 PM CDT XR HIP RIGHT 2 OR 3 VIEWS ED 10/18/2022 6:10 PM CDT URINALYSIS AND REFLEX TO MICROSCOPIC AND CULTURE STAT 10/18/2022 6:09 PM CDT URINALYSIS, MICROSCOPIC ONLY STAT 10/18/2022 6:09 PM CDT TROPONIN T HIGH-SENSITIVITY 2-HOUR Timed 10/18/2022 5:[address] HEAD WO CONTRAST ED 10/18/2022 5 :12 PM CDT ECG 12-LEAD STAT 10/18/2022 4:24 PM CDT XR CHEST 1 VIEW ED 10/18/2022 4:22 PM CDT TROPONIN T HIGH-SENSITIVITY SERIES (BASELINE, 2HR, 4HR, 6HR) STAT 10/18/2022 3:41 PM CDT EGFR STAT 10/18/2022 3:41 PM CDT DIFFERENTIAL AUTO STAT 10/18/2022 3:4 1 PM CDT CBC WITH AUTO DIFFERENTIAL STAT 10/18/2022 3:41 PM CDT COMPREHENSIVE METABOLIC PANEL STAT 10/18/2022 3:41 PM CDT documented in this encounter Results * Stress Test for Myocardial Perfusion (10/20/2022 11:55 AM CDT) Anatomical Region Laterality Modality Nuclear Medicine Narrative 10/20/2022 10:09 AM CDT Patient Id: Emerald Myers is a 87 y.o. female. MR#: [id number] Study date:10/20/2022 Indications: Patient is pleasant adult female who had history of falls and questionable syncope, dyspnea on exertion and marginally elevated troponins with negative delta brought in today for Lexiscan Myoview stress test Procedure: Baseline EKG showed a sinus rhythm with nonspecific ST changes noted. ?? Heart rate is 80 beats per minute. ??Blood pressure 163/81 mmHg. ?? Saturating 94%. ?? Patient received 0.4 mg of Lexiscan followed by fluid bolus and Myoview injection During infusion and recovery rhythm is sinus rhythm and heart rate increased to 101 beats per minute. ??Blood pressure decreased to 139/72 mmHg. ??No chest pain noted. ??EKG showed nonspecific ST changes and nondiagnostic. ??Test terminated secondary to end of protocol. Impressions: Tolerate Lexiscan well No chest pain noted during the test EKG negative for ischemia Myoview scan is pending. I personally supervised and reviewed the stress stress. Copy to Saurabh Valerio MD 10/20/2022 This report was transcribed using the [employer] voice recognition system without human dial screw assembler. In an effort to expedite patient care, this report has not been adjusted for typographical, grammatical, and syntax by a trained medical equipment repair technician. ?? Despite proof reading there may be errors. ??Please contact me if you have any questions. us Lore Hendrickson MD CV STRESS PROCEDURES Final R esult * NM MPI Spect (Rest And Stress) Multiple Studies (10/20/2022 11:55 AM CDT) Anatomical Region Laterality Modality Body N/A Nuclear Medicine 10/20/2022 12:4 2 PM CDT Narrative 10/20/2022 12:46 PM CDT EXAM DESCRIPTION: ?? NM MPI SPECT (REST AND/OR STRESS) MULTIPLE STUDIES REASON FOR STUDY: Dyspnea on exertion (CHOU), chou, syncope ?? RADIOPHARMACEUTICAL: Rest: ??11.0 ??mCi Tc-99m tetrofosmin via a ??left antecubital ??IV site. Stress: ??33 ??mCi Tc-99m tetrofosmin via a ??left antecubital ??IV site. TECHNIQUE: Standard myocardial perfusion SPECT images were obtained after resting tracer injection. ??Subsequently, an intravenous infusion of ??0.4 mg Lexiscan ??was performed. ??Standard myocardial perfusion SPECT images were obtained after tracer injection at the peak effect of the drug. COMPARISON: None. FINDINGS: Image quality is adequate at rest and adequate at stress. There are no perfusion abnormalities. The left ventricular cavity size is normal. Gated tomographic images demonstrate normal wall motion and wall thickening with a left ventricular ejection fraction of 68% poststress (normal >45%). ?? IMPRESSION: 1. ?? Normal myocardial perfusion study. 2. ?? No scintigraphic evidence of myocardial ischemia. 3. ?? Normal left ventricular ejection fraction poststress. 4. ?? Normal left ventricular wall motion. ?? THIS IS AN ELECTRONICALLY VERIFIED FINAL REPORT 10/20/2022 12:46 PM - Electronically signed by ??Aroldo Warner M.D. CH: D: ??10/20/2022 12:46 PM T: ??10/20/2022 12:46 PM Report ID: [id number] Reading Location: ??[id number] Procedure Note Aroldo Warner Jr., MD - 10/20/2022 EXAM DESCRIPTION: NM MPI SPECT (REST AND/OR STRESS) MULTIPLE STUDIES REASON FOR STUDY: Dyspnea on exertion (CHOU), chou, syncope RADIOPHARMACEUTICAL: Rest: 11.0 mCi Tc-99m tetrofosmin via a left antecubital IV site. Stress: 33 mCi Tc-99m tetrofosmin via a left antecubital IV site. TECHNIQUE: Standard myocardial perfusion SPECT images were obtained after resting tracer injection. Subsequently, an intravenous infusion of 0.4mg Lexiscan was performed. Standard myocardial perfusion SPECT images were obtained after tracer injection at the peak effect of the drug. COMPARISON: None. FINDINGS: Image quality is adequate at rest and adequate at stress. There are no perfusion abnormalities. The left ventricular cavity size is normal. Gated tomographic images demonstrate normal wall motion and wallthickening with a left ventricular ejection fraction of 68% poststress (normal >45%). IMPRESSION: 1. Normal myocardial perfusion study. 2. No scintigraphic evidence of myocardial ischemia. 3. Normal left ventricular ejection fraction poststress. 4. Normal left ventricular wall motion. THIS IS AN ELECTRONICALLY VERIFIED FINAL REPORT 10/20/2022 12:46 PM - Electronically signed by Aroldo Warner M.D. CH: Report ID: [id number] Reading Location: [place] [address] us Lore Hendrickson MD IMG NM PROCEDURES Final Resu lt * eGFR (10/20/2022 4:31 AM CDT) eGFR 55 mL/min/1. 73 m2 KALANI HUSAIN Comment: Interpretive Data Reference Interval Normal ?>/= [...] was last reviewed 2021. Testing performed by: [address] [address] Blood 10/20/2022 4:31 AM CDT 10/20/2022 5:00 AM CDT us Lore Hendrickson MD LAB BLOOD ORDERABLES Final R esult [facility] Department [place] [address] * (ABNORMAL) Comprehensive metabolic panel (10/20/2022 4:31 AM CDT) Sodium 141 135 - 145 mmol/L KALANI Comment:Testing performed by : [address] [address] Potassium, pl 3.9 3.3 - 4.9 mmol/L KALANI Comment:Testing performed by : [address] [address] Chloride 106 97 - 110 mmol/L KALANI Comment:Testing performed by : [address] [address] CO2 26 22 - 32 mmol/L KALANI Comment:Testing performed by : [address] [address] Anion gap 9 2 - 15 mmol/L KALANI Comment:Testing performed by : [address] [address] BUN 16 6 - 25 mg/dL KALANI Comment:Testing performed by : [address] [address] Creatinine 1.00 0.60 - 1.10 mg/dL KALANI Comment:Testing performed by : [address] [address] Glucose 93 70 - 199 mg/dL KALANI Comment: Interpretive [...] was last revised 2022. Testing performed by: [address] [address] Calcium 8.7 8.5 - 10.3 mg/dL KALANI Comment:Testing performed by : [address] [address] Bilirubin, total 0.4 0.1 - 1.2 mg/dL KALANI Comment:Testing performed by : [address] [address] Protein, pl 5.7(L) 6.5 - 8.5 g/dL KALANI Comment:Testing performed by : [address] [address] Albumin 3.0(L) 3.5 - 5.0 g/dL KALANI Comment:Testing performed by : [address] [address] Alk phos 67 40 - 130 Units/L KALANI Comment:Testing performed by : [address] [address] ALT 8 7 - 45 Units/L KALANI Comment:Testing performed by : [address] [address] AST 12 10 - 45 Units/L KALANI Comment:Testing performed by : [address] [address] Blood 10/20/2022 4:31 AM CDT 10/20/2022 5:00 AM CDT Lore Hendrickson MD LAB BLOOD ORDERABLES Final R esult [facility] [address] [facility] Department [place] [address] * EEG (10/19/2022 2:04 PM CDT) Anatomical Region Laterality Modality Other Narrative 10/21/2022 11:30 AM CDT Reilly Brambila MD ? 10/24/2022 11:40 AM Reason for exam: ??passing out episodes Technical: This is a digitally recorded electroencephalogram. It was just over 23 minutes long. ??The international 10-20 electrode placement system is used for scalp electrode placement. Eighteen channels of scalp EEG are recorded. One channel was used for EOG. Another channel was used for ECG. The data are stored digitally and reviewed in reformatted montages for optimal display. Background: 6-7 hertz background activity was seen. Maximal over the posterior head region. These activities are symmetric on both sides. They attenuated with eye opening. Description: No focal slowing was seen. No seizure like activity was observed during this recording. Patient entered into periods of drowsiness and light sleep. Hyperventilation was not performed due to patient's clinical condition. ?? Photic stimulation was performed without any additional abnormalities. ?? 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 ??No focal slowing no seizure like activity was observed. Correlation with clinical findings is needed. Rosemary Espitia MD NEUROLOGY ORDERABLES Final Res ult * US Carotids Duplex Bilateral (10/19/2022 10:48 AM CDT) Anatomical Region Laterality Modality Vascular Bilateral Ultrasound 10/19/2022 Narrative 10/20/2022 7:40 AM CDT [employer] Job ID: [id number] [employer] Document ID: [id number] Dictated date/time: [id number] REASON FOR STUDY Syncope. Vertebral artery flow is antegrade bilaterally. ??There is minimal plaque in both internal carotid arteries of less than 50% diameter stenoses. ?? There is no significant increase in peak systolic velocity in either internal carotid artery. ??The peak systolic velocity on the right is 58 cm/sec and on the left is 100 cm/sec. ??The external carotid and common carotid artery velocities are normal bilaterally. IMPRESSION No significant stenosis in either internal carotid artery. Job ID/Internal Job ID: ??[id number] us Melchor Rangel MD IMG US PROCEDURES Fin al Result * TRANSTHORACIC ECHO (TTE) COMPLETE W DOPPLER/CF WO CONTRAST (10/19/2022 9:51 AM CDT) Anatomical Region Laterality Modality Ultrasound 10/19/2022 9:51 AM CDT Narrative 10/19/2022 4:41 PM CDT ? Adult Echocardiogram + ----- + :Name: EMERALD MYERS ?Study Date: 10/19/2022 ?Status: E ?: : ?Patient Location: [address]^[id number]^eight: 62 in ?: : ?Weight: 146 lbBP: 149/86 mmHg: :: 1935 ? Gender: Female ?BSA: 1.7 m2 ?: :Reason For Study: Syncope ?: :Ordering Physician: ?: :VOLKERDING, MELCHOR ? : : ? : :Performed By: Isabel Vasquez, ? : :RDCS/RVT ? : + ----- + Procedure A two-dimensional transthoracic echocardiogram with color flow and Doppler was performed. Left Ventricle The left ventricle is normal in size. Kydt-ze-elubkkeg concentric left ventricular hypertrophy. Left ventricular systolic function is normal. Ejection Fraction = 55-60%. The left ventricular wall motion is normal. Right Ventricle The right ventricle is normal size. The right ventricular systolic function is normal. Atria The left atrial size is normal. Right atrial size is normal. Mitral Valve The mitral valve is normal. There is trace mitral regurgitation. Tricuspid Valve The tricuspid valve is normal. There is trace tricuspid regurgitation. Right ventricular systolic pressure is '24-29' mm/HG. Right ventricular systolic pressure is normal. Aortic Valve Aortic valve structure is normal. No aortic stenosis . Aortic valve velocity is 109 cm/s. LVOT velocity is 56 cm/s. Mild aortic regurgitation. Pulmonic Valve The pulmonic valve is not well visualized. Pulmonic valve velocity is 71 cm/s. RVOT velocity is 63 cm/s. Mild pulmonic valvular regurgitation. Great Vessels The aortic root is normal size. IVC appears normal in size. Pericardium There is no pericardial effusion. Diastology Mitral inflow shows reversal of E/A ratio, suggestive of diastolic dysfunction of left ventricle. E/E prime ratio is 8 -15 which is in the indeterminate zone. Grade I diastolic dysfunction, (abnormal relaxation pattern). Interpretation Summary Nnrg-oe-pvwhflac concentric left ventricular hypertrophy Left ventricular systolic function is normal. Ejection Fraction = 55-60%. The right ventricle is normal size. The right ventricular systolic function is normal. Right ventricular systolic pressure is normal. Mild aortic regurgitation. Mild pulmonic valvular regurgitation. Grade I diastolic dysfunction, (abnormal relaxation pattern). + + :Measurements with Normals ?: : ?(0.6-1.2 ?LVIDd: ?(3.5-5.7 ?? Ao root diam: ?(2.0-3.7 ?? : :IVSd: 1.4 cmcm) ? 3.9 cm ?cm) ?3.3 cm ? cm) ?: :LVPWd: ?(0.6-1.1 ?LVIDs: ?(3.1-4.6 ?? LA dimension: ?(1.9-4.0 ?? : :1.2 cm ?cm) ? 2.7 cm ?cm) ?3.2 cm ? cm) ?: + + MMode/2D Measurements & Calculations FS: 29.6 % ?Ao root area: ? LVOT diam: 2.0 cm LVLd ap4: 8.3 cm EDV(Teich): 65.5 ml 8.6 cm2 ? LVOT area: ?EDV(MOD- sp4): ESV(Teich): 28.0 ml ? 3.1 cm2 ? 56.4 ml ?LVLs ap4: 7.6 cm ?ESV(MOD-sp4): ?30.2 ml ?EF(MOD-sp4): 46.5 % ? SV(MOD-sp4): ?EF (BP): 42.1 % 26.2 ml Doppler Measurements & Calculations MV E max ruby: ?Ao V2 max: ? AI max ruby: ?LV V1 max P.8 cm/sec ?109.0 cm/sec ? 356.0 cm/sec ? 1.3 mmHg MV A max ruby: ?Ao max PG: ? AI max P.7 mmHg LV V1 max: 72.4 cm/sec ?4.8 mmHg ? AI dec slope: ?56.1 cm/sec MV E/A: 0.72 ? JERRY(V,D): 1.6 cm2 ??200.0 cm/sec2 ?AI P1/2t: 521.3 msec ? TV V2 max: ? PA V2 max: ? RV V1 max: ? TR max ruby: 31.3 cm/sec ?70.6 cm/sec ?63.0 cm/sec ?216.0 cm/sec TV max PG: ? PA max PG: ?TR max P.39 mmHg ?2.0 mmHg ?18.7 mmHg ? RVSP(TR): 21.7 mmHg ? RAP systole: 3.0 mmHg Electronically signed by: Loer Hendrickson MD 10/19/2022 04:41 PM Procedure Note Lore Hendrickson MD - 10/19/2022 Adult Echocardiogram + ----- + :Name: EMERALD MYERS Study Date: 10/19/2022Status: JOSIE : : Patient Location: [address]^[id number]^MHeight: 62 in : : : 146 lbBP: 149/86 mmHg: :: 1935 Gender: FemaleBSA: 1.7 m2 : :Reason For Study: Syncope: :Ordering Physician:: :MELCHOR RANGEL: :: :Performed By: Isabel Vasquez,: :RDCS/RVT: + ----- + Procedure A two-dimensional transthoracic echocardiogram with color flow and Dopplerwas performed. Left Ventricle The left ventricle is normal in size. Ibln-eb-mywqpukp concentric left ventricular hypertrophy. Left ventricular systolic function is normal. Ejection Fraction = 55-60%. The left ventricular wall motion is normal. Right Ventricle The right ventricle is normal size. The right ventricular systolicfunction is normal. Atria The left atrial size is normal. Right atrial size is normal. Mitral Valve The mitral valve is normal. There is trace mitral regurgitation. Tricuspid Valve The tricuspid valve is normal. There is trace tricuspid regurgitation.Right ventricular systolic pressure is '24-29' mm/HG. Right ventricularsystolic pressure is normal. Aortic Valve Aortic valve structure is normal. No aortic stenosis . Aortic valvevelocity is 109 cm/s. LVOT velocity is 56 cm/s. Mild aortic regurgitation. Pulmonic Valve The pulmonic valve is not well visualized. Pulmonic valve velocity is 71cm/s. RVOT velocity is 63 cm/s. Mild pulmonic valvular regurgitation. Great Vessels The aortic root is normal size. IVC appears normal in size. Pericardium There is no pericardial effusion. Diastology Mitral inflow shows reversal of E/A ratio, suggestive of diastolicdysfunction of left ventricle. E/E prime ratio is 8 -15 which is in theindeterminate zone. Grade I diastolic dysfunction, (abnormal relaxation pattern). Interpretation Summary Nccb-es-yqszjopg concentric left ventricular hypertrophy Left ventricular systolic function is normal. Ejection Fraction = 55-60%. The right ventricle is normal size. The right ventricular systolic function is normal. Right ventricular systolic pressure is normal. Mild aortic regurgitation. Mild pulmonic valvular regurgitation. Grade I diastolic dysfunction, (abnormal relaxation pattern). + + :Measurements with Normals: : (0.6-1.2 LVIDd: (3.5-5.7 Ao root diam:(2.0-3.7 : :IVSd: 1.4 cmcm) 3.9 cm cm) 3.3 cm cm): :LVPWd: (0.6-1.1 LVIDs: (3.1-4.6 LA dimension:(1.9-4.0 : :1.2 cm cm) 2.7 cm cm) 3.2 cm cm): + + MMode/2D Measurements & Calculations FS: 29.6 % Ao root area: LVOT diam: 2.0 cm LVLd ap4: 8.3cm EDV(Teich): 65.5 ml 8.6 cm2 LVOT area: EDV(MOD-sp4): ESV(Teich): 28.0 ml 3.1 cm2 56.4 ml LVLs ap4: 7.6cm ESV(MOD-sp4): 30.2 ml EF(MOD-sp4):46.5 % SV(MOD-sp4): EF (BP): 42.1 % 26.2 ml Doppler Measurements & Calculations MV E max ruby: Ao V2 max: AI max ruby: LV V1 max P.8 cm/sec 109.0 cm/sec 356.0 cm/sec 1.3 mmHg MV A max ruby: Ao max PG: AI max P.7 mmHg LV V1 max: 72.4 cm/sec 4.8 mmHg AI dec slope: 56.1 cm/sec MV E/A: 0.72 JERRY(V,D): 1.6 cm2 200.0 cm/sec2 AI P1/2t: 521.3 msec TV V2 max: PA V2 max: RV V1 max: TR max ruby: 31.3 cm/sec 70.6 cm/sec 63.0 cm/sec 216.0 cm/sec TV max PG: PA max PG: TR max P.39 mmHg 2.0 mmHg 18.7 mmHg RVSP(TR): 21.7mmHg RAP systole: 3.0 mmHg Electronically signed by: Lore Hendrickson MD 10/19/2022 04:41 PM us Melchor Rangel MD CV ECHO PROCEDURES Fi nal Result * ECG 12 lead (10/19/2022 6:26 AM CDT) [facility] Ventricular Rate EKG/Min 87 BPM [facility] Atrial Rate 87 BPM [facility] ME-Interval (MSEC) 146 ms [facility] QRS-Interval (MSEC) 82 ms [facility] QT-Interval (MSEC) 382 ms [facility] QTc 459 ms [facility] P [place] 82 degrees [facility] R [place] 19 degrees [facility] T [place] 86 degrees [facility] Diagnosis Sinus rhythm with occasional Premature ventricular complexes Nonspecific ST and T wave abnormality Abnormal ECG When compared with ECG of 18-OCT-2022 16:24, Premature ventricular complexes are now Present [facility] 10/19/2022 6:26 AM CDT 10/19/2022 10:02 AM CDT us Melchor Rangel MD ECG ORDERABLES Final Result [facility] * eGFR (10/19/2022 2:45 AM CDT) [facility] eGFR 62 mL/min/1. 73 m2 KALANI HUSAIN Comment: Interpretive Data Reference Interval Normal ?>/= [...] was last reviewed 2021. Testing performed by: [address] [address] Blood 10/19/2022 2:45 AM CDT 10/19/2022 3:08 AM CDT us Melchor Rangel MD LAB BLOOD ORDERABLES Final Result Performing Organization Address City/[facility] Co de Phone Number [id number] [place] [address] * TSH reflex to free T4 (10/19/2022 2:45 AM CDT) TSH 2.00 0.30 - 4.20 mcIUnit/mL KALANI Comment:Testing performed by : [address] [address] Blood 10/19/2022 2:45 AM CDT 10/19/2022 3:08 AM CDT Melchor Rangel MD LAB BLOOD ORDERABLES Final Result Performing Organization Address City/[facility] Co de Phone Number [address] [place] [address] * Hemoglobin A1c (10/19/2022 2:45 AM CDT) Hgb A1C 4.9 4.0 - 5.6 % KALANI Comment:Testing performed by : [address] [address] Estimated Average Glucose 94 mg/dL KALANI HUSAIN Comment: The ADA recommends reporting an estimated Average Glucose (eAG) with all Hemoglobin A1c results using the equation derived from a study of 507 normal and diabetic adults. ??Minority populations were underrepresented and children were not included. ?? (Diabetes Care 31:0906-0639, 2008). ??The eAG is not equivalent to a fasting glucose. Testing performed by: [facility], [address] [place] [address]., [address] Blood 10/19/2022 2:45 AM CDT 10/19/2022 3:08 AM CDT us Melchor Rangel MD LAB BLOOD ORDERABLES Final Result KALANI [address] [facility] [place] [address] * Lipid panel (10/19/2022 2:45 AM CDT) [facility] Cholesterol 121 30 - 199 mg/dL KALANI HUSAIN Comment: Interpretive Data Ages < or = 19 years ??Acceptable: ? <170 mg/dL ??Borderline high: ??170-199 mg/dL ??High: ? >or= 200 mg/dL Ages > or = 20 years ??Desirable: ?<200 mg/dL ??Borderline high: ??200-239 mg/dL ??High: ? >or= 240 mg/dL Literature References: 1. Expert Panel on Integrated Guidelines for Cardiovascular Health and Risk Reduction in Children and Adolescents. Pediatrics 2011;128:S213 2. NCEP Expert Panel. Circulation 2004;110:227 Current Interpretive Data was last revised on 2017. Testing performed by: [address] [address] Triglycerides 130 <=149 mg/dL KALANI Comment: Interpretive Data Ages < or = 9 years ??Acceptable: ? <75 mg/dL ??Borderline high: ??75-99 mg/dL ??High: ? >or= 100 mg/dL Ages 10 to 20 years ??Acceptable: ? <90 mg/dL ??Borderline high: ??90-129 mg/dL ??High: ? >or= 130 mg/dL Ages > or = 20 years ??Desirable: ?<150 mg/dL ??Borderline high: ??150-199 mg/dL ??High: ? 200-499 mg/dL ?Very high: ?? >or= 499 mg/dL Literature References: 1. Expert Panel on Integrated Guidelines for Cardiovascular Health and Risk Reduction in Children and Adolescents. Pediatrics 2011;128:S213 2. NCEP Expert Panel. Circulation 2004;110:227 Current Interpretive Data was last revised on 2017. Testing performed by: [address] [address] HDL 47 >=40 mg/dL [facility] Comment: Interpretive Data Ages < or = 19 years ??Acceptable: ? >45 mg/dL ??Borderline low: ?? 40-45 mg/dL ??Low: ? <40 mg/dL Ages > or = 20 years ??Desirable: ?>or= 60 mg/dL ??Low: ? <40 mg/dL Literature References: 1. Expert Panel on Integrated Guidelines for Cardiovascular Health and Risk Reduction in Children and Adolescents. Pediatrics 2011;128:S213 2. NCEP Expert Panel. Circulation 2004;110:227 Current Interpretive Data was last revised on 2017. Testing performed by: [address] [address] LDL, calculated 48 <=129 mg/dL KALANI Comment: Interpretive Data Ages < or = 19 years ??Acceptable: ? <110 mg/dL ??Borderline high: ??110-129 mg/dL ??High: ?>or= 130 mg/dL Ages > or = 20 years ??Optimal: ? <100 mg/dL ??Near optimal: ?100-129 mg/dL ??Borderline high: ?? 130-159 mg/dL ??High: ?>160 mg/dL Literature References: 1. Expert Panel on Integrated Guidelines for Cardiovascular Health and Risk Reduction in Children and Adolescents. Pediatrics 2011;128:S213 2. NCEP Expert Panel. Circulation 2004;110:227 Current Interpretive Data was last revised on 2017. Testing performed by: [address] [address] Non-HDL Cholesterol 74 mg/dL KALANI HUSAIN Comment: Interpretive Data Ages < or = 19 years ??Acceptable: ?<120 mg/dL ??Borderline high: ??120-144 mg/dL ??High: ?>145 mg/dL Ages > or = 20 years ??When triglycerides are >200 mg/dL, Non-HDL cholesterol is a secondary target of ? therapy with treatment goals that are 30 mg/dL greater than the LDL cholesterol target. ? Literature References: 1. Expert Panel on Integrated Guidelines for Cardiovascular Health and Risk Reduction in Children and Adolescents. Pediatrics 2011;128:S213 2. NCEP Expert Panel. Circulation 2004;110:227 Current Interpretive Data was last revised on 2017. Testing performed by: [address] [address] Chol/HDL ratio 3 KALANI Comment:Testing performed by : [address] [address] Blood 10/19/2022 2:45 AM CDT 10/19/2022 3:08 AM CDT us Melchor Rangel MD LAB BLOOD ORDERABLES Final Result KALANI [address] [facility] [place] [address] * CBC without differential (10/19/2022 2:45 AM CDT) [facility] WBC 7.7 3.8 - 9.9 K/cumm KALANI Comment:Testing performed by : [address], [address] Hgb 13.4 11.9 - 15.5 g/dL KALANI Comment:Testing performed by : [address], [address] Hct 41.0 35.6 - 45.5 % KALANI Comment:Testing performed by : [address], [address] Plt 176 150 - 400 K/cumm KALANI Comment:Testing performed by : [address], [address] MPV 10.5 9.1 - 12.3 fL KALANI Comment:Testing performed by : [address], [address] RBC 4.32 3.90 - 5.20 M/cumm KALANI Comment:Testing performed by : [address], [address] MCV 94.9 81.3 - 96.4 fL KALANI Comment:Testing performed by : [address], [address] MCH 31.0 27.1 - 33.3 pg KALANI Comment:Testing performed by : [address], [address] MCHC 32.7 32.3 - 35.7 g/dL KALANI Comment:Testing performed by : [address], [address] RDW CV 13.5 11.1 - 14.9 % KALANI Comment:Testing performed by : [address], [address] RDW SD 47.0 35.7 - 48.1 fL KALANI Comment:Testing performed by : [address], [address] NRBC abs 0.00 0.00 - 0.01 K/cumm KALANI Comment:Testing performed by : [address] [place]., [address] Blood 10/19/2022 2:45 AM CDT 10/19/2022 3:08 AM CDT Melchor Rangel MD LAB BLOOD ORDERABLES Final Result Performing Organization Address City/[facility] Co de Phone Number [address] [place] [address] * Phosphorus (10/19/2022 2:45 AM CDT) Phosphorus, pl 3.5 2.3 - 4.5 mg/dL KALANI Comment:Testing performed by : [facility], [address] [place] [address]., [address] Blood 10/19/2022 2:45 AM CDT 10/19/2022 3:08 AM CDT Melchor Rangel MD LAB BLOOD ORDERABLES Final Result Performing Organization Address [facility] Co de Phone Number [address] [address] * Magnesium (10/19/2022 2:45 AM CDT) [facility] Magnesium 2.1 1.4 - 2.5 mg/dL KALANI Comment:Testing performed by : [facility], [address] [place] [address]., [address] Blood 10/19/2022 2:45 AM CDT 10/19/2022 3:08 AM CDT Melchor Rangel MD LAB BLOOD ORDERABLES Final Result Performing Organization Address City/[facility] Co de Phone Number [address] [address] * (ABNORMAL) Comprehensive metabolic panel (10/19/2022 2:45 AM CDT) Pathologist [facility] Sodium 141 135 - 145 mmol/L KALANI Comment:Testing performed by : [address], [place]., [address] Potassium, pl 3.7 3.3 - 4.9 mmol/L KALANI Comment:Testing performed by : [address], [place]., [address] Chloride 108 97 - 110 mmol/L KALANI Comment:Testing performed by : [address], [place]., [address] CO2 22 22 - 32 mmol/L KALANI Comment:Testing performed by : [address], [place]., [address] Anion gap 11 2 - 15 mmol/L KALANI Comment:Testing performed by : [address], [place]., [address] BUN 14 6 - 25 mg/dL KALANI Comment:Testing performed by : [address], [place]., [address] Creatinine 0.90 0.60 - 1.10 mg/dL KALANI Comment:Testing performed by : [address], [place]., [address] Glucose 91 70 - 199 mg/dL KALANI Comment: Interpretive [...] was last revised 2022. Testing performed by: [address] [address] Calcium 8.8 8.5 - 10.3 mg/dL KALANI Comment:Testing performed by : [address], [place]., [address] Bilirubin, total 0.3 0.1 - 1.2 mg/dL KALANI Comment:Testing performed by : [address], [place]., [address] Protein, pl 6.0(L) 6.5 - 8.5 g/dL KALANI Comment:Testing performed by : [address] [address] Albumin 3.2(L) 3.5 - 5.0 g/dL KALANI HUSAIN Comment:Testing performed by : [address] [address] Alk phos 70 40 - 130 Units/L KALANI Comment:Testing performed by : [address] [address] ALT 7 7 - 45 Units/L KALANI Comment:Testing performed by : [address] [address] AST 12 10 - 45 Units/L KALANI Comment:Testing performed by : [address] [address] Blood 10/19/2022 2:45 AM CDT 10/19/2022 3:08 AM CDT us Melchor Rangel MD LAB BLOOD ORDERABLES Final Result [place] [id number] [facility] Department [place] [address] * (ABNORMAL) Troponin T high-sensitivity 6-hour (10/18/2022 10:02 PM CDT) Trop T hs 17(H) <=14 ng/L KALANI HUSAIN Comment: Ref Range High Interpretive Data For further hscTnT resources including the diagnostic algorithm and an aid in interpretation, copy and paste this link: https://nrl.testcatalog.org/show/hsTrop Current Interpretive Data last revised 2020. Testing performed by: [address] [address] Trop T hs delta 0 ng/L KALANI HUSAIN Comment:Testing performed by : [address] [address] Trop T hs interp Insignificant KALANI HUSAIN Comment:Testing performed by : [address] [address] Blood 10/18/2022 10:0 2 PM CDT 10/18/2022 10:04 PM CDT Yahir Pickett DO LAB BLOOD ORDERABLES Final Res ult Performing Organization Address [facility] Co de Phone Number KALANI [address] [facility] [place] [address] * (ABNORMAL) Troponin T high-sensitivity 4-hour (10/18/2022 7:28 PM CDT) Trop T hs 18(H) <=14 ng/L KALANI HUSAIN Comment: Ref Range High Interpretive Data For further hscTnT resources including the diagnostic algorithm and an aid in interpretation, copy and paste this link: https://nrl.testcatalog.org/show/hsTrop Current Interpretive Data last revised 2020. Testing performed by: [address] [address] Trop T hs delta 1 ng/L KALANI Comment:Testing performed by : [address] [address] Trop T hs interp Insignificant KALANI Comment:Testing performed by : [address] [address] Blood 10/18/2022 7:28 PM CDT 10/18/2022 7:31 PM CDT Yahir Pickett DO LAB BLOOD ORDERABLES Final Res ult Performing Organization Address [facility] Co de Phone Number [facility] [address] [facility] [place] [address] * XR Hip Right 2 or 3 Views (10/18/2022 6:10 PM CDT) Anatomical Region Laterality Modality Lower Extremities, Hip, Pelvis Right C omputed Radiography 10/18/2022 6:27 PM CDT Narrative 10/18/2022 6:33 PM CDT EXAM DESCRIPTION: XR HIP RIGHT 2 OR 3 VIEWS REASON FOR STUDY: pain ?? Pt states fall today having pain ?? TECHNIQUE: 2 ??radiographic view(s) of the ??right hip . COMPARISON: None FINDINGS: Overlying soft tissue on the frontal view limits evaluation. ??There appears to be grossly normal alignment. ??No definite fracture. ??Mild right hip osteoarthritis. IMPRESSION: 1. ?? No gross acute osseous abnormality. THIS IS AN ELECTRONICALLY VERIFIED FINAL REPORT 10/18/2022 6:33 PM - Electronically signed by ??Oneil Puckett M.D. AG: AG D: ??10/18/2022 6:33 PM T: ??10/18/2022 6:33 PM Report ID: [id number] Reading Location: ??[id number] Procedure Note Oneil Puckett MD - 10/18/2022 EXAM DESCRIPTION: XR HIP RIGHT 2 OR 3 VIEWS REASON FOR STUDY: pain Pt states fall today having pain TECHNIQUE: 2 radiographic view(s) of the right hip . COMPARISON: None FINDINGS: Overlying soft tissue on the frontal view limits evaluation.There appears to be grossly normal alignment. No definite fracture. Mild righthip osteoarthritis. IMPRESSION: 1. No gross acute osseous abnormality. THIS IS AN ELECTRONICALLY VERIFIED FINAL REPORT 10/18/2022 6:33 PM - Electronically signed by Oneil Puckett M.D. AG: TAMIKA Report ID: [id number] Reading Location: [id number] Yahir Pickett DO IMG XR PROCEDURES Final Result * (ABNORMAL) Urinalysis, microscopic only (10/18/2022 6:09 PM CDT) WBC, ur 0-5 0 - 5 /HPF KALANI HUSAIN Comment:Testing performed by : [facility], [address] [place] [address]., [address] RBC, ur 0-2 0 - 2 /HPF KALANI HUSAIN Comment:Testing performed by : [address] [address] Epithelial cells, squamous, ur 21-50(A) 0 - 5 /HPF KALANI HUSAIN Comment:Testing performed by : [address] [address] Bacteria, ur 4+(A) KALANI HUSAIN Comment:Testing performed by : [address] [address] Culture Reflex Comment Reflex conditions for urine culture (WBC >10) not met. KALANI Comment:Testing performed by : [address] [address] Urine 10/18/2022 6:09 PM CDT 10/18/2022 6:12 PM CDT Yahir Pickett DO LAB URINE ORDERABLES Final Res ult KALANI HUSAIN [facility] Department [place] [address] * Urinalysis reflex to microscopic and culture Urine (10/18/2022 6:09 PM CDT) Color, ur Straw Yellow KALANI Comment:Testing performed by : [address] [address] Clarity, ur Clear Clear KALANI Comment:Testing performed by : [address] [address] Specific gravity, ur 1.008 1.003 - 1.030 KALANI Comment:Testing performed by : [address] [address] pH, urine 5.0 KALANI Comment:Testing performed by : [address] [address] Protein, ur ql Negative Negative KALANI Comment:Testing performed by : [address] [address] Glucose, ur ql Negative Negative KALANI Comment:Testing performed by : [address] [address] Ketones, ur Negative Negative KALANI Comment:Testing performed by : [address] [address] Bilirubin, ur Negative Negative KALANI Comment:Testing performed by : [facility], [address] [place] [address], [place]., [address] Blood, ur Negative Negative KALANI Comment:Testing performed by : [address], [place]., [address] Urobilinogen, ur <2.0 <2.0 mg/dL KALANI Comment:Testing performed by : [address] [address] Nitrite, ur Negative Negative KALANI Comment:Testing performed by : [facility], [address] [place] [address], [place]., [address] Leukocyte esterase, ur Negative Negative KALANI Comment:Testing performed by : [address], [place]., [address] UA reflex comment Reflex to microscopic UA will be performed. KALANI Comment:Testing performed by : [address], [place]., [address] Urine 10/18/2022 6:09 PM CDT 10/18/2022 6:12 PM CDT Narrative KALANI - 10/18/2022 6:20 PM CDT ?? Urine pH is affected by diet, medications, systemic acid-base disturbances, and renal tubular function. ??pH may affect urinary stone formation. ??For example, urine pH below 6.0 may help reduce the tendency for calcium phosphate stones and pH greater than 6.0 may reduce the tendency for uric acid stone formation. Source: [facility] [employer]. Last revised 05-02-2017 us Yahir Pickett DO LAB MICROBIOLOGY - GENERAL ORD ERABLES Final Result KALANI [address] [facility] [place] [address] * (ABNORMAL) Troponin T high-sensitivity 2-hour (10/18/2022 5:28 PM CDT) Trop T hs 17(H) <=14 ng/L KALANI Comment: Ref Range High Interpretive Data For further hscTnT resources including the diagnostic algorithm and an aid in interpretation, copy and paste this link: https://nrl.testcatalog.org/show/hsTrop Current Interpretive Data last revised 2020. Testing performed by: [facility], [address] [place] [address]., [address] Trop T hs delta 0 ng/L KALANI HUSAIN Comment:Testing performed by : [facility], [address] [place] [address]., [address] Trop T hs interp Insignificant KALANI HUSAIN Comment:Testing performed by : [address] [address] Blood 10/18/2022 5:28 PM CDT 10/18/2022 5:35 PM CDT us Yahir Pickett DO LAB BLOOD ORDERABLES Final Res ult KALANI HUSAIN [address] [facility] [place] [address] * CT Head WO Contrast (10/18/2022 5:12 PM CDT) Anatomical Region Laterality Modality Head and Neck N/A Computed Tomogra phy 10/18/2022 5:38 PM CDT Narrative 10/18/2022 5:40 PM CDT EXAM DESCRIPTION: ?? CT HEAD WO CONTRAST REASON FOR STUDY: ?? multiple falls, confusion ?? Table formatting from the original note was not included. ??Pt arrived from [facility] via EMS. EMS states multiple falls over past 24 hours. HBP. Some skin tears ? Pt A. Pt c/o multiple falls, unsure if she fell or hit her head. Denies CP, new shortness of breath. ? TECHNIQUE: Axial images acquired through the brain without intravenous contrast. ??Images stored on PACS. ?? Automated exposure control was used as a dose optimization technique for this examination. COMPARISON: None FINDINGS: BRAIN: ?? No hemorrhage, edema or mass effect. No recent infarct. ? Generalized atrophy and periventricular microvascular white matter ischemic change. 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 ? EXTRA-AXIAL SPACES: ?? No fluid collections. No masses. CALVARIUM: ?? No fracture. SINUSES/MASTOIDS: ?? No fluid or mucosal thickening. ORBITS: ?? No significant abnormality. OTHER: ?? No other significant abnormality. IMPRESSION: ?? No acute intracranial findings. THIS IS AN ELECTRONICALLY VERIFIED FINAL REPORT 10/18/2022 5:40 PM - Electronically signed by ??Jeramie Berkowitz M.D. KT: ANI D: ??10/18/2022 5:40 PM T: ??10/18/2022 5:40 PM Report ID: [id number] Reading Location: ??[id number] Procedure Note Jeramie Berkowitz MD - 10/18/2022 EXAM DESCRIPTION: CT HEAD WO CONTRAST REASON FOR STUDY: multiple falls, confusion Table formatting from the original note was not included. Pt arrived from [facility] via EMS. EMS states multiple falls over past 24 hours. HBP. Some skin tears Pt A. Pt c/o multiple falls, unsure if she fell or hit her head. Denies CP, new shortness of breath. TECHNIQUE: Axial images acquired through the brain without intravenous contrast. Images stored on PACS. Automated exposure control was used asa dose optimization technique for this examination. COMPARISON: None FINDINGS: BRAIN: No hemorrhage, edema or mass effect. No recent infarct. Generalized atrophy and periventricular microvascular white matterischemic change. Tiny old lacunar infarcts involving the heads of the caudatenuclei and the bilateral lentiform and thalamic nuclei. 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 EXTRA-AXIAL SPACES: No fluid collections. No masses. CALVARIUM: No fracture. SINUSES/MASTOIDS: No fluid or mucosal thickening. ORBITS: No significant abnormality. OTHER: No other significant abnormality. IMPRESSION: No acute intracranial findings. THIS IS AN ELECTRONICALLY VERIFIED FINAL REPORT 10/18/2022 5:40 PM - Electronically signed by Jeramie Berkowitz M.D. KT: ANI Report ID: [id number] Reading Location: [id number] Yahir Pickett DO IMG CT PROCEDURES Final Result * ECG 12 lead (10/18/2022 4:24 PM CDT) Ventricular Rate EKG/Min 94 BPM [facility] Atrial Rate 94 BPM [facility] ME-Interval (MSEC) 140 ms [facility] QRS-Interval (MSEC) 78 ms [facility] QT-Interval (MSEC) 384 ms [facility] QTc 480 ms [facility] P [place] 70 degrees [facility] R [place] 16 degrees [facility] T [place] 78 degrees [facility] Diagnosis Normal sinus rhythm Nonspecific ST and T wave abnormality Prolonged QT Abnormal ECG When compared with ECG of 05-APR-2021 19:40, No significant change was found [facility] 10/18/2022 4:24 PM CDT 10/18/2022 9:30 PM CDT us Yahir Pickett DO ECG ORDERABLES Final Result [facility] * XR Chest 1 Vw Portable (10/18/2022 4:22 PM CDT) Anatomical Region Laterality Modality Body, Chest N/A Computed Radiogr aphy 10/18/2022 4:24 PM CDT Narrative 10/18/2022 4:25 PM CDT EXAM DESCRIPTION: XR CHEST 1 VIEW REASON FOR STUDY: weakness, multiple falls over last 24 hours ?? Pt arrived from [facility] via EMS. EMS states multiple falls over past 24 hours. 128 BG. 18G L AC. HBP. Some skin tears ? Pt A. Pt c/o multiple falls, unsure if she fell or hit her head. Denies CP, new shortness of breath. ?? TECHNIQUE: Single frontal ??radiographic view(s) of the chest. COMPARISON: 04/05/2021 FINDINGS: The heart, mediastinum, and pulmonary vasculature are grossly stable. ??There are mild atherosclerotic changes of the aorta. ??There is no definite evidence of a pneumothorax. ??There is no definite evidence of a focal consolidation or pleural effusion. ??There are scattered calcified granulomas noted. The osseous structures are acutely grossly stable. IMPRESSION: No acute cardiopulmonary abnormality. THIS IS AN ELECTRONICALLY VERIFIED FINAL REPORT 10/18/2022 4:25 PM - Electronically signed by ??Dyan Lennon D.O. PS: PS D: ??10/18/2022 4:25 PM T: ??10/18/2022 4:25 PM Report ID: [id number] Reading Location: ??[id number] Procedure Note Citlalli Dyan Joey, DO - 10/18/2022 EXAM DESCRIPTION: XR CHEST 1 VIEW REASON FOR STUDY: weakness, multiple falls over last 24 hours Pt arrived from [facility] via EMS. EMS states multiple falls over past 24 hours. 128 BG. 18G L AC. HBP. Some skin tears Pt A. Pt c/o multiple falls, unsure if she fell or hit her head. Denies CP, new shortness ofbreath. TECHNIQUE: Single frontal radiographic view(s) of the chest. COMPARISON: 04/05/2021 FINDINGS: The heart, mediastinum, and pulmonary vasculature are grossly stable. There are mild atherosclerotic changes of the aorta. There is no definite evidence of a pneumothorax. There is no definite evidence of afocal consolidation or pleural effusion. There are scattered calcifiedgranulomas noted. The osseous structures are acutely grossly stable. IMPRESSION: No acute cardiopulmonary abnormality. THIS IS AN ELECTRONICALLY VERIFIED FINAL REPORT 10/18/2022 4:25 PM - Electronically signed by Dyan Lennon D.O. PS: PS Report ID: [id number] Reading Location: [id number] us eMlanie EATON IMG XR PROCEDURES Final Res ult * eGFR (10/18/2022 3:41 PM CDT) eGFR 49 mL/min/1. 73 m2 KALANI HUSAIN Comment: Interpretive Data Reference Interval Normal ?>/= [...] was last reviewed 2021. Testing performed by: [address] [address] Blood 10/18/2022 3:41 PM CDT 10/18/2022 4:06 PM CDT us Yahir Pickett DO LAB BLOOD ORDERABLES Final Res ult KALANI [address] [facility] [place] [address] * Differential, auto (10/18/2022 3:41 PM CDT) Neutrophil abs 4.5 1.7 - 6.5 K/cumm KALANI HUSAIN Comment:Testing performed by : [address] [address] Imm gran abs 0.0 0.0 - 0.1 K/cumm KALANI HUSAIN Comment:Testing performed by : [address] [address] Lymphocyte abs 1.6 0.8 - 3.3 K/cumm KALANI HUSAIN Comment:Testing performed by : [address] [address] Monocyte abs 0.5 0.2 - 0.8 K/cumm KALANI Comment:Testing performed by : [address] [address] Eosinophil abs 0.1 0.0 - 0.5 K/cumm KALANI Comment:Testing performed by : [address] [address] Basophil abs 0.0 0.0 - 0.1 K/cumm KALANI Comment:Testing performed by : [address] [address] Neutrophil pct 67.2 % [facility] Comment: Interpretive Data Percent cell count reference ranges are not reported, since discordance with absolute values may lead to misinterpretation of CBC data. Current Interpretive Data was last revised on 2017. Testing performed by: [address] [address] Imm gran pct 0.3 % [facility] Comment: Interpretive Data Percent cell count reference ranges are not reported, since discordance with absolute values may lead to misinterpretation of CBC data. Current Interpretive Data was last revised on 2017. Testing performed by: [address] [address] Lymphocyte pct 23.9 % [facility] Comment: Interpretive Data Percent cell count reference ranges are not reported, since discordance with absolute values may lead to misinterpretation of CBC data. Current Interpretive Data was last revised on 2017. Testing performed by: [address] [address] Monocyte pct 6.6 % [facility] Comment: Interpretive Data Percent cell count reference ranges are not reported, since discordance with absolute values may lead to misinterpretation of CBC data. Current Interpretive Data was last revised on 2017. Testing performed by: [address] [address] Eosinophil pct 1.6 % KALANI Comment: Interpretive Data Percent cell count reference ranges are not reported, since discordance with absolute values may lead to misinterpretation of CBC data. Current Interpretive Data was last revised on 2017. Testing performed by: [address] [address] Basophil pct 0.4 % KALANI Comment: Interpretive Data Percent cell count reference ranges are not reported, since discordance with absolute values may lead to misinterpretation of CBC data. Current Interpretive Data was last revised on 2017. Testing performed by: [facility], [address] [place] [address]., [id number] Blood 10/18/2022 3:41 PM CDT 10/18/2022 4:06 PM CDT Yahir Pickett [facility] LAB BLOOD ORDERABLES Final Res ult Performing Organization Address [facility] Co de Phone Number KALANI [address] [place] [address] * (ABNORMAL) Troponin T high-sensitivity series (baseline, 2hr, 4hr, 6hr) (10/18/2022 3:41 PM CDT) Trop T hs 17(H) <=14 ng/L KALANI Comment: Ref Range High Interpretive Data For further hscTnT resources including the diagnostic algorithm and an aid in interpretation, copy and paste this link: [email or web address] Current Interpretive Data last revised 2020. Testing performed by: [address] [address] Blood 10/18/2022 3:41 PM CDT 10/18/2022 4:06 PM CDT Yahir Pickett DO LAB BLOOD ORDERABLES Edited Re sult - Final Performing Organization Address [facility] Co de Phone Number [place] [id number] [facility] [place] [address] * Comprehensive metabolic panel (10/18/2022 3:41 PM CDT) Sodium 141 135 - 145 mmol/L KALANI Comment:Testing performed by : [address] [address] Potassium, pl 4.0 3.3 - 4.9 mmol/L KALANI HUSAIN Comment:Testing performed by : [address] [address] Chloride 106 97 - 110 mmol/L [facility] Comment:Testing performed by : [address], [place]., [address] CO2 25 22 - 32 mmol/L [facility] Comment:Testing performed by : [address], [place]., [address] Anion gap 10 2 - 15 mmol/L [facility] Comment:Testing performed by : [address], [place]., [address] BUN 13 6 - 25 mg/dL [facility] Comment:Testing performed by : [address], [place]., [address] Creatinine 1.10 0.60 - 1.10 mg/dL [facility] Comment:Testing performed by : [address], [place]., [address] Glucose 114 70 - 199 mg/dL [facility] Comment: Interpretive Data Fasting glucose >/= 126 [...] was last revised 2022. Testing performed by: [address] [address] Calcium 9.1 8.5 - 10.3 mg/dL [facility] Comment:Testing performed by : [address] [address] Bilirubin, total 0.4 0.1 - 1.2 mg/dL [facility] Comment:Testing performed by : [address] [address] Protein, pl 6.5 6.5 - 8.5 g/dL [facility] Comment:Testing performed by : [address] [address] Albumin 3.5 3.5 - 5.0 g/dL KALANI HUSAIN Comment:Testing performed by : [address] [address] Alk phos 68 40 - 130 Units/L KALANI HUSAIN Comment:Testing performed by : [address] [address] ALT 8 7 - 45 Units/L KALANI HUSAIN Comment:Testing performed by : [address] [address] AST 13 10 - 45 Units/L KALANI HUSAIN Comment:Testing performed by : [address] [address] Blood 10/18/2022 3:41 PM CDT 10/18/2022 4:06 PM CDT us Yahir Pickett DO LAB BLOOD ORDERABLES Final Res ult Performing Organization Address City/State/[facility] Co de Phone Number KALANI [address] [facility] Department [place] [address] * (ABNORMAL) CBC with auto differential (10/18/2022 3:41 PM CDT) WBC 6.8 3.8 - 9.9 K/cumm KALANI HUSAIN Comment:Testing performed by : [address] [address] Hgb 14.1 11.9 - 15.5 g/dL KALANI HUSAIN Comment:Testing performed by : [address] [address] Hct 43.2 35.6 - 45.5 % KALANI HUSAIN Comment:Testing performed by : [address] [address] Plt 202 150 - 400 K/cumm KALANI HUSAIN Comment:Testing performed by : [address] [address] MPV 10.7 9.1 - 12.3 fL KALANI HUSAIN Comment:Testing performed by : [address] [address] RBC 4.49 3.90 - 5.20 M/cumm KALANI HUSAIN Comment:Testing performed by : [facility], [address] [place] [address]., [address] MCV 96.2 81.3 - 96.4 fL KALANI HUSAIN Comment:Testing performed by : [facility], [address] [place] [address]., [address] MCH 31.4 27.1 - 33.3 pg KALANI HUSAIN Comment:Testing performed by : [address] [address] MCHC 32.6 32.3 - 35.7 g/dL KALANI HUSAIN Comment:Testing performed by : [address] [address] RDW CV 13.7 11.1 - 14.9 % KALANI Comment:Testing performed by : [address] [address] RDW SD 48.4(H) 35.7 - 48.1 fL KALANI Comment:Testing performed by : [address] [address] NRBC abs 0.00 0.00 - 0.01 K/cumm KALANI Comment:Testing performed by : [address] [address] Blood 10/18/2022 3:41 PM CDT 10/18/2022 4:06 PM CDT us Yahir Pickett DO LAB BLOOD ORDERABLES Final Res ult KALANI [address] [facility] Department of Laboratories [place], [place] [id number] documented in this encounter Visit Diagnoses Diagnosis Syncope and collapse- Primary Syncope, unspecified syncope type Syncope and collapse Fall, subsequent encounter Syncope, unspecified syncope type Dyspnea on exertion Other dyspnea and respiratory abnormality Falls Pure hypercholesterolemia Elevated troponin Other abnormal blood chemistry documented in this encounter Admitting Diagnoses Diagnosis Syncope, unspecified syncope type Syncope and collapse documented in this encounter Administered Medications Inactive Administered Medications - up to 3 most recent administrations Medication Order MAR Action Action Date Dose Rate Site acetaminophen (TYLENOL) tablet 650 mg 650 mg, oral, Every 4 hours PRN, 1st line for pain, fever, fever greater than 38.3 C, Starting on Marily 10/18/22 at 2220, Indications: Fever, PainIndications:Fever,Pain Given 10/21/2022 1:33 AM CDT 650 mg Given 10/19/2022 11:53 PM CDT 650 mg amLODIPine (NORVASC) tablet 10 mg 10 mg, oral, Daily, First dose (after last modification) on Sat10/22/22 at 0900 amLODIPine (NORVASC) tablet 5 mg 5 mg, oral, Daily, First dose on Sat10/19/22 at 0945 Given 10/21/2022 9:57 AM CDT 5 mg Given 10/20/2022 11:41 AM CDT 5 mg Given 10/19/2022 10:43 AM CDT 5 mg amLODIPine (NORVASC) tablet 5 mg 5 mg, oral, Once, On Sat10/21/22 at 1015, For 1 dose Given 10/21/2022 9:58 AM CDT 5 mg cloNIDine (CATAPRES) tablet 0.1 mg 0.1 mg, oral, Every 8 hours PRN, high blood pressure, SBP> 160 mmHg and/or DBP > 100mmHg, Starting on Sat10/19/22 at 0507, Do not administer if heart rate less than 60 beats per minute Given 10/19/2022 5:23 AM CDT 0.1 mg enoxaparin (LOVENOX) syringe 40 mg 40 mg, subcutaneous, Daily (for enoxaparin), First dose on Marily 10/18/22 at 2330, Indications: Deep Vein Thrombosis PreventionIndications:Deep Vein Thrombosis Prevention Given 10/20/2022 9:15 PM CDT 40 mg Left Lower Abdomen Given 10/19/2022 9:01 PM CDT 40 mg Le ft Upper Abdomen Given 10/18/2022 11:22 PM CDT 40 mg L eft Lower Abdomen FLUoxetine (PROzac) tab/cap 20 mg 20 mg, oral, Daily, First dose on Sat10/19/22 at 0900 Given 10/21/2022 9:39 AM CDT 20 mg Given 10/20/2022 11:41 AM CDT 20 mg Given 10/19/2022 8:37 AM CDT 20 mg loperamide (IMODIUM) capsule 2 mg 2 mg, oral, Daily PRN, diarrhea, Starting on Marily 10/18/22 at 2219, Maximum recommended dose 16 mg/day Given 10/20/2022 2:34 PM CDT 2 mg losartan (COZAAR) tablet 50 mg 50 mg, oral, Daily, First dose on Sat10/19/22 at 1200 Given 10/21/2022 9:39 AM CDT 50 mg Given 10/20/2022 11:41 AM CDT 50 mg Given 10/19/2022 12:45 PM CDT 50 mg magnesium sulfate 2 g/50 mL in water (premix) 2 g 2 g, intravenous, Administer over 60 Minutes, Once, On 10/20/22 at 1430, For 1 dose New Bag 10/20/2022 2:34 PM CDT [address] (PROTONIX) extended release tablet 40 mg 40 mg, oral, Daily, First dose on Sat10/19/22 at 0900, Do not crush, chew, cut, dissolve, open or otherwise manipulate tablet/capsule., Indications: Treatment of Non-Bleeding Gastric DisorderIndications:Treatment of Non-Bleeding Gastric Disorder Given 10/21/2022 9:39 AM CDT 40 mg Given 10/20/2022 11:41 AM CDT 40 mg Given 10/19/2022 8:37 AM CDT 40 mg regadenoson (LEXISCAN) 0.4 mg/5 mL injection 0.4 mg 0.4 mg, intravenous, Once, On 10/20/22 at 0945, For 1 dose, Intra-Procedure (CV), Administer IV push over 10 seconds., Indications: Myocardial Perfusion Imaging AdjunctIndications:Myocardi al Perfusion Imaging Adjunct Given 10/20/2022 9:51 AM CDT 0.4 mg Left Antecubital tc-99m tetrofosmin (MYOVIEW) injection 11 millicurie 11 millicurie, intravenous, Once in imaging, radiopharmaceutical, Starting on 10/20/22 at 1151, For 1 dose, Indications: Diagnostic RadiographyIndications:Diag nostic Radiography Given 10/20/2022 11:52 AM CDT 11 millicuries tc-99m tetrofosmin (MYOVIEW) injection 33 millicurie 33 millicurie, intravenous, Once in imaging, radiopharmaceutical, Starting on 10/20/22 at 1152, For 1 dose, Indications: Diagnostic RadiographyIndications:Diag nostic Radiography Given 10/20/2022 11:52 AM CDT 33 millicuries documented in this encounter Discontinued Medications Medication Sig Discontinue Reason Start Date End Da te nitrofurantoin monohydrate (MACROBID) 100 mg capsule Take 1 capsule (100 mg total) by mouth 2 (two) times a day Therapy completed 04/06/2021 10/18/2022 amLODIPine (NORVASC) 10 mg tablet Take 1 tablet (10 mg total) by mouth daily Reorder 10/22/2022 10/21/2022 losartan (COZAAR) 50 mg tablet Take 1 tablet (50 mg total) by mouth daily Reorder 10/22/2022 10/21/2022 documented as of this encounter Historical Medications * This list may reflect changes made after this encounter. raloxifene (EVISTA) 60 mg tablet Take 1 tablet (60 mg total) by mouth daily lansoprazole (PREVACID) 30 mg capsule Take 1 capsule (30 mg total) by mouth every other day FLUoxetine (PROzac) 20 mg tablet Take 1 tablet (20 mg total) by mouth daily cholestyramine-a spartame (QUESTRAN LIGHT) 4 gram powder in packet Take 1 packet by mouth daily ascorbic acid 500 mg [...] (0.375 mg total) by mouth daily 4 added in this encounter Active and Recently Administered Medications Times are shown in CDT. Scheduled Medication Order 10/19/2022 10/20/2022 10/21/2022 amLODIPine (NORVASC) tablet 10 mg 10 mg, oral, Daily, First dose (after last modification) on 10/22/22 at 0900 amLODIPine (NORVASC) tablet 5 mg (CANCELED) 5 mg, oral, Daily, First dose on Sat10/19/22 at 0945 1043 (Given - Provider: Reyna Brasher RN) 1141 (Given - Provider: Tosin Arciniega, ZACH) 0957 (Given - Provider: Jesse Be, ZACH) amLODIPine (NORVASC) tablet 5 mg (COMPLETED) 5 mg, oral, Once, On 10/21/22 at 1015, For 1 dose 0958 (Given - Provider: Jesse Be, ZACH) enoxaparin (LOVENOX) syringe 40 mg 40 mg, subcutaneous, Daily (for enoxaparin), First dose on Marily 10/18/22 at 2330, Indications: Deep Vein Thrombosis Prevention 2100 (Given - Provider: Blessing Avendano RN) 2114 (Given - Provider: Blessing Avendano RN) FLUoxetine (PROzac) tab/cap 20 mg 20 mg, oral, Daily, First dose on Sat10/19/22 at 0900 0837 (Given - Provider: Reyna Brasher RN) 1141 (Given - Provider: Tosin Arciniega RN) 0939 (Given - Provider: Jesse Be, ZACH) losartan (COZAAR) tablet 50 mg 50 mg, oral, Daily, First dose on Sat10/19/22 at 1200 1245 (Given - Provider: Reyna Brasher RN) 1141 (Given - Provider: Tosin Arciniega RN) 0939 (Given - Provider: Jesse Be, ZACH) magnesium sulfate 2 g/50 mL in water (premix) 2 g (COMPLETED) 2 g, intravenous, Administer over 60 Minutes, Once, On 10/20/22 at 1430, For 1 dose 1434 (New Bag - Provider: Tosin Arciniega RN) pantoprazole DR (PROTONIX) extended release tablet 40 mg 40 mg, oral, Daily, First dose on Sat10/19/22 at 0900, Do not crush, chew, cut, dissolve, open or otherwise manipulate tablet/capsule., Indications: Treatment of Non-Bleeding Gastric Disorder 0837 (Given - Provider: Reyna Brasher, RN) 1141 (Given - Provider: Tosin Arciniega, ZACH) 0939 (Given - Provider: Jesse Be, ZACH) regadenoson (LEXISCAN) 0.4 mg/5 mL injection 0.4 mg (COMPLETED) 0.4 mg, intravenous, Once, On 10/20/22 at 0945, For 1 dose, Intra-Procedure (CV), Administer IV push over 10 seconds., Indications: Myocardial Perfusion Imaging Adjunct 0951 (Given - Provider: Vianca Tineo, ZACH) PRN Medication Order 10/19/2022 10/20/2022 10/21/2022 acetaminophen (TYLENOL) tablet 650 mg 650 mg, oral, Every 4 hours PRN, 1st line for pain, fever, fever greater than 38.3 C, Starting on Marily 10/18/22 at 2220, Indications: Fever, Pain 2353 (Given - Provider: Blessing Avendano RN) 0133 (Given - Provider: Blessing Avendano RN) cloNIDine (CATAPRES) tablet 0.1 mg 0.1 mg, oral, Every 8 hours PRN, high blood pressure, SBP> 160 mmHg and/or DBP > 100mmHg, Starting on Sat10/19/22 at 0507, Do not administer if heart rate less than 60 beats per minute 0523 (Given - Provider: Yu Lewis, ZACH) loperamide (IMODIUM) capsule 2 mg 2 mg, oral, Daily PRN, diarrhea, Starting on Marily 10/18/22 at 2219, Maximum recommended dose 16 mg/day 1434 (Given - Provider: Tosin Arciniega, ZACH) ramelteon (ROZEREM) tablet 8 mg 8 mg, oral, Nightly PRN, sleep, Starting on Marily 10/18/22 at 2220, Indications: Sleep-Onset Insomnia tc-99m tetrofosmin (MYOVIEW) injection 11 millicurie (COMPLETED) 11 millicurie, intravenous, Once in imaging, radiopharmaceutical, Starting on 10/20/22 at 1151, For 1 dose, Indications: Diagnostic Radiography 1152 (Given - Provider: Cassie Guzman, RT) tc-99m tetrofosmin (MYOVIEW) injection 33 millicurie (COMPLETED) 33 millicurie, intravenous, Once in imaging, radiopharmaceutical, Starting on 10/20/22 at 1152, For 1 dose, Indications: Diagnostic Radiography 1152 (Given - Provider: Cassie Guzman, RT) documented in this encounter Orders Medications Ordered That Scott ht Not Have Been Administered Count Last Ordered Date First Ordered Date amLODIPine (NORVASC) tablet 10 mg 1 023 ramelteon (ROZEREM) tablet 8 mg 1 3 General Supply Count Last Ordered Date First Or dered Date WALKER 1 10/19/2022 Nursing Count Last Ordered Date First Orde red Date MISCELLANEOUS NURSING CARE ORDER (SPECIFY) 1 10/18/2022 TELEMETRY MONITORING 1 10/18/2022 Consult Count Last Ordered Date First Orde red Date IP CONSULT TO CARDIOLOGY 1 10/18/2022 IP CONSULT TO NUTRITION SERVICES 1 10/19/19 Admission Count Last Ordered Date First Orde red Date ADMIT TO INPATIENT 1 10/19/2022 INITIATE OBSERVATION SERVICES 1 10/18/2022 Transfer Count Last Ordered Date First Orde red Date ED TO FLOOR BED REQUEST 1 10/18/2022 Discharge Count Last Ordered Date First Orde red Date DISCHARGE PATIENT 1 10/21/2022 documented in this encounter Care Teams Curb Hop Relationship Specialty Start Date End Date Saurabh Valerio MD [address] [facility] [address] [place] [address] PCP - General Internal Medicine 10/18/22 documented as of this encounter
--- OUTSIDE RECORDS SUMMARY | 2024-05-01 13:47 | XMS_ITS | Encounter Summary ---
Author Organization [facility] Healthcare Address [address] [place] [address] Care Team Providers Care Med Spa Manager Name Role Phone Unavailable Primary Care Provider Unavailabl e Reason for Visit * Reason Comments Weakness - Generalized Encounter Details Date Type Department Care Team (Late st Contact Info) Description 04/05/2021 11:24 PM DIRECTOR SEARCH MARKETING [employer]ATEGIES - 04/06/2021 1:40 AM [facility] Emergency [facility] Emergency Department [address] [place] [address] Ran Tay, DO [address] [facility] [place], [place] [id number] Diarrhea, unspecified type (Primary Dx); Acute cystitis with hematuria Discharge Disposition: Discharge to home or self care Social History Tobacco Use Types Packs/Day Years Used Date Smoking Tobacco: Never Assessed Comments Unknown Sex and Gender Information Value Date Recorded Sex Assigned at Not on file Legal Sex Female 7:18 PM DIRECTOR SEARCH MARKET[employer] Gender Identity Not on file Sexual Orientation Not on file documented as of this encounter Last Filed Vital Signs Vital Sign Reading Time Taken Comments Blood Pressure 173/109 04/06/2021 1:30 AM DIRECTOR [employer] Pulse 74 04/06/2021 1:30 AM DIRECTOR [employer] Temperature 36.8 ??C (98.3 ??F) 04/05/2021 6:58 PM CS T Respiratory Rate 18 04/06/2021 1:03 AM DIRECTOR SE[employer] MARK[employer]IES Oxygen Saturation 94% 04/06/2021 1:30 AM DIRECTOR [employer] MARK[employer] Inhaled Oxygen Concentration - - Weight 73.8 kg (162 lb 11.2 oz) 04/05/2021 6:58 PM DIRECTOR [employer] Height 156.2 cm (5' 1.5 ) 04/05/2021 6:58 PM DIRECTOR SE[employer] MARK[employer]GIES Body Mass Index 30.24 04/05/2021 6:58 PM DIRECTOR [employer] MARK[employer]GIES documented in this encounter Discharge Instructions * Attachments The following attachments cannot be sent through Care Everywhere. 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) (Irish) documented in this encounter Medications at Time of Discharge loperamide (IMODIUM) 2 mg capsule Take 1 capsule (2 mg total) by mouth 4 (four) times a day as needed for diarrhea 12 capsule 04/06/2021 4 nitrofurantoin monohydrate (MACROBID) 100 mg capsule Take 1 capsule (100 mg total) by mouth 2 (two) times a day 14 capsule 04/06/2021 3 documented as of this encounter Ordered Prescriptions Prescription Sig Dispense Quantity Refills Last Filled Start Date End Date loperamide (IMODIUM) 2 mg capsule Take 1 capsule (2 mg total) by mouth 4 (four) times a day as needed for diarrhea 12 capsule 04/06/2021 4 nitrofurantoin monohydrate (MACROBID) 100 mg capsule Take 1 capsule (100 mg total) by mouth 2 (two) times a day 14 capsule 04/06/2021 3 documented in this encounter Discharge Disposition Disposition Code Departure Means Destination Discharge to home or self care documented in this encounter ED Notes * Ran Tay, - 04/06/2021 12:13 AM CST HPI Chief Complaint Patient presents with ??? Weakness - Generalized 85-year-old female who comes in with diarrhea for 2 weeks. She has had diarrhea in the past and usually it is on and off and she is able to manage and today she is just very weak and so she came in for evaluation. She denies any fevers chills or night sweats no abdominal pain and she has been taking Imodium to try to stop the diarrhea Patient History: There are no problems to display for this patient. No past medical history on file. No past surgical history on file. No family history on file. Social History Tobacco Use ??? Smoking status: Not on file ??? Smokeless tobacco: Not on file Substance Use Topics ??? Alcohol use: Not on file ??? Drug use: Not on file Social History Social History Narrative ??? Not on file Review of Systems Review of Systems Constitutional: Negative for chills and fever. HENT: Negative for ear pain and sore throat. Eyes: Negative for pain and visual disturbance. Respiratory: Negative for cough and shortness of breath. Cardiovascular: Negative for chest pain and palpitations. Gastrointestinal: Positive for diarrhea. Negative for abdominal pain and vomiting. Genitourinary: Negative for dysuria and hematuria. Musculoskeletal: Negative for arthralgias and back pain. Skin: Negative for color change and rash. Neurological: Negative for seizures and syncope. All other systems reviewed and are negative. Physical Exam ED Triage Vitals [04/05/21 1858] Temp Pulse Resp BP SpO2 36.8 ??C (98.3 ??F) 94 18 149/94 91 % Temp src Heart Rate Source Patient Position BP Location FiO2 (%) Oral -- -- -- -- Physical Exam Vitals and nursing note reviewed. Constitutional: General: She is not in acute distress. Appearance: She is well-developed. HENT: Head: Normocephalic and atraumatic. Eyes: Conjunctiva/sclera: Conjunctivae normal. Cardiovascular: Rate and Rhythm: Normal rate and regular rhythm. Heart sounds: Normal heart sounds. No murmur heard. Pulmonary: Effort: Pulmonary effort is normal. No respiratory distress. Breath sounds: Normal breath sounds. Abdominal: General: Bowel sounds are normal. There is no distension. Palpations: Abdomen is soft. Tenderness: There is no abdominal tenderness. There is no guarding. Musculoskeletal: Cervical back: Neck supple. Skin: General: Skin is warm and dry. Neurological: Mental Status: She is alert and oriented to person, place, and time. MDM MDM Final diagnoses: None Ran Tay DO 04/06/21 0015 [employer] * Chary Nevarez RN - 04/05/2021 7:01 PM CST Pt w/weakness X 2 weeks and shortness of breath, diarrhea, nausea and vomiting. Decreased appetite.Denies any pain. [employer] documented in this encounter Miscellaneous Notes * ED Procedure Note - Ran Tay DO - 04/06/2021 12:13 AM DIRECTOR [employer]IES Associated Order(s): ECG 12 lead Procedure ECG 12 lead Date/Time: 04/06/2021 12:13 AM Performed by: Ran Tay DO Authorized by: Harriet Quinones PA Rate: ECG rate: 80 ECG rate assessment: normal Rhythm: Rhythm: sinus rhythm and sinus arrhythmia Ectopy: Ectopy: none QRS: QRS axis: Normal Conduction: Conduction: normal ST segments: ST segments: Non-specific T waves: T waves: non-specific Ran Tay DO 04/06/21 0013 [employer] documented in this encounter Plan of Treatment Not on file documented as of this encounter Procedures Procedure Name Priority Date/Time Associated Diagnosis Comments TROPONIN T HIGH-SENSITIVITY 4-HR Timed 04/05/2021 11:43 PM DIRECTOR [employer] TROPONIN T HIGH-SENSITIVITY 2-HOUR Timed 04/05/2021 9:39 PM DIRECTOR [employer] URINALYSIS AND REFLEX TO MICROSCOPIC AND CULTURE STAT 04/05/2021 7:58 PM DIRECTOR [employer]ING [employer]GIES URINALYSIS, MICROSCOPIC ONLY STAT 04/05/2021 7:58 PM DIRECTOR [employer]IES URINE CULTURE STAT 04/05/2021 7:58 PM DIRECTOR [employer] MARKETING [employer]ATEGIES TROPONIN T HIGH-SENSITIVITY SERIES (BASELINE, 2HR, 4HR, 6HR) STAT 04/05/2021 7:47 PM DIRECTOR [employer] MARKETING [employer]IES INFLUENZA A/B, RSV, AND COVID-19 PCR Routine 04/05/2021 7:47 PM DIRECTOR [employer]IES EGFR STAT 04/05/2021 7:47 PM DIRECTOR [employer]IES DIFFERENTIAL AUTO STAT 04/05/2021 7:4 7 PM DIRECTOR [employer] MARK[employer]IES PRO B-TYPE NATRIURETIC PEPTIDE STAT 04/05/2021 7:47 PM DIRECTOR [employer] MARK[employer]ING [employer]GIES THYROID FUNCTION CASCADE Routine 04/05/2021 7:47 PM DIRECTOR [employer] MARK[employer]ING [employer]GIES CBC WITH AUTO DIFFERENTIAL STAT 04/05/2021 7:47 PM DIRECTOR [employer] MARK[employer]ING [employer]ATEGIES COMPREHENSIVE METABOLIC PANEL STAT 04/05/2021 7:47 PM DIRECTOR [employer] MARK[employer]ING [employer]GIES XR CHEST 1 VIEW ED 04/05/2021 7:43 PM DIRECTOR [employer] MARK[employer]ING [employer]GIES ECG 12-LEAD STAT 04/05/2021 7:40 PM DIRECTOR [employer] documented in this encounter Results * (ABNORMAL) Troponin T high-sensitivity 4-hour (04/05/2021 11:43 PM DIRECTOR [employer] MARKETING [employer]) Trop T hs 16(H) <=14 ng/L KALANI HUSAIN Comment: Ref Range High Interpretive Data For further hscTnT resources including the diagnostic algorithm and an aid in interpretation, copy and paste this link: https://nrl.testcatalog.org/show/hsTrop Current Interpretive Data last revised 2020. Testing performed by: [address] [address] Trop T hs delta -3 ng/L KALANI Comment:Testing performed by : [address] [address] Trop T hs interp Insignificant KALANI Comment:Testing performed by : [address] [address] Blood 04/05/2021 11:4 3 PM DIRECTOR SE[employer] MARKETING [employer]GIES 04/05/2021 11:47 PM DIRECTOR SE[employer] MARKETING [employer]ATEGIES Harriet EATON LAB BLOOD ORDERABLES Final Result Performing Organization Address [facility] Co de Phone Number KALANI [address] [place] [address] * (ABNORMAL) Troponin T high-sensitivity 2-hour (04/05/2021 9:39 PM DIRECTOR [employer] MARKETING [employer]GIES) Trop T hs 17(H) <=14 ng/L KALANI Comment: Ref Range High Interpretive Data For further hscTnT resources including the diagnostic algorithm and an aid in interpretation, copy and paste this link: https://nrl.testcatalog.org/show/hsTrop Current Interpretive Data last revised 2020. Testing performed by: [facility], [address] [place] [address]., [address] Trop T hs delta -2 ng/L KALANI Comment:Testing performed by : [facility], [address] [place] [address]., [address] Trop T hs interp Insignificant KALANI Comment:Testing performed by : [facility], [address] [place] [address]., [id number] Blood 04/05/2021 9:39 PM DIRECTOR [employer] MARKETING [employer]GIES 04/05/2021 9:43 PM DIRECTOR SE[employer] MARKETING [employer]ATEGIES Harriet EATON LAB BLOOD ORDERABLES Final Result Performing Organization Address [facility] Co de Phone Number KALANI [address] [facility] [place] [address] * (ABNORMAL) Urine culture Urine (04/05/2021 7:58 PM DIRECTOR SEARCH MARKETING [employer]ATEGIES) Report Final Report: Greater than or equal to 100,000 colonies/mL of Escherichia coli Plus growth of clinically insignificant bacterial osman. (.) KALANI Comment:Testing performed by : [facility], [address] [facility] [place]., [address] Organism ESCHERICHIA COLI KALANI Organism PLUS GROWTH OF CLINICALLY INSIGNIFICANT OSMAN. KALANI Urine 04/05/2021 7:58 PM DIRECTOR [employer] MARKETING [employer]ATEGIES 04/06/2021 12:34 AM DIRECTOR [employer] MARKETING [employer]GIES Narrative KALANI - 04/09/2021 12:40 PM DIRECTOR SE[employer] MARKETING [employer]ATEGIES Urine culture reflexed based upon urinalysis results. Testing performed by [facility] Microbiology Laboratory ([phone]) Organism Antibiotic Method Susceptibility Escherichia coli Ampicillin INTERPRETATION Resistant Escherichia coli Cefazolin INTERPRETATION Susceptible Escherichia coli Nitrofurantoin INTERPRETATION Susceptible Escherichia coli Gentamicin INTERPRETATION Susceptible Escherichia coli Trimethoprim with Sulfamethoxazole IN TERPRETATION Susceptible Escherichia coli Meropenem INTERPRETATION Susceptible Escherichia coli Cefepime INTERPRETATION Susceptible Escherichia coli Ciprofloxacin INTERPRETATION Intermediate Escherichia coli Ceftazidime INTERPRETATION Susceptible Escherichia coli Ceftriaxone INTERPRETATION Susceptible Escherichia coli Piperacillin/Tazobactam INTERPRETATIO N Susceptible Escherichia coli Cephalexin INTERPRETATION Susceptible Escherichia coli Cefuroxime-axetil INTERPRETATION Susceptible Escherichia coli Cefdinir INTERPRETATION Susceptible us Harriet EATON LAB MICROBIOLOGY - GENERAL ORDERABLES Final Result KALANI [address] [facility] [place] [address] * (ABNORMAL) Urinalysis, microscopic only (04/05/2021 7:58 PM DIRECTOR [employer] MARKET[employer]GIES) WBC, ur 21-50(A) 0 - 5 /HPF KALANI Comment:Testing performed by : [address] [address] RBC, ur 3-5(A) 0 - 2 /HPF KALANI Comment:Testing performed by : [address] [address] Epithelial cells, squamous, ur >50(A) 0 - 5 /HPF KALANI Comment: Suggestive of contamination. Consider recollection by clean catch. Testing performed by: [address] [address] Bacteria, ur 4+(A) KALANI Comment:Testing performed by : [address] [address] Mucous, ur Present(A) KALANI Comment:Testing performed by : [address] [address] Hyaline casts, ur 21-50(A) 0 - 10 /LPF KALANI Comment:Testing performed by : [address] [address] Culture Reflex Comment Reflex to urine culture will be performed. KALANI Comment:Testing performed by : [address] [address] Urine 04/05/2021 7:58 PM DIRECTOR [employer] MARKETING [employer]ATEGIES 04/05/2021 8:11 PM DIRECTOR SEARCH MARKETING [employer]ATEGIES Harriet EATON LAB URINE ORDERABLES Final Result KALANI [address] [facility] Department [place] [address] * (ABNORMAL) Urinalysis reflex to microscopic and culture Urine (04/05/2021 7:58 PM DIRECTOR SE[employer] MARKETING [employer]ATEGIES) Color, ur Ramya Yellow KALANI Comment:Testing performed by : [address] [address] Clarity, ur Cloudy(A) Clear KALANI Comment:Testing performed by : [address] [address] Specific gravity, ur 1.024 1.003 - 1.030 KALANI Comment:Testing performed by : [address] [address] pH, urine 5.0 KALANI Comment:Testing performed by : [address] [address] Protein, ur ql 1+(A) Negative KALANI Comment:Testing performed by : [address] [address] Glucose, ur ql Negative Negative KALANI Comment:Testing performed by : [address] [address] Ketones, ur Trace Negative KALANI Comment:Testing performed by : [address] [address] Bilirubin, ur Negative Negative KALANI Comment:Testing performed by : [address] [address] Blood, ur Negative Negative KALANI Comment:Testing performed by : [address] [address] Urobilinogen, ur 2.0(A) <2.0 mg/dL KALANI Comment:Testing performed by : [facility], [address] [place] [address]., [address] Nitrite, ur Positive(A) Negative KALANI Comment:Testing performed by : [facility], [address] [place] [address]., [address] Leukocyte esterase, ur 2+(A) Negative KALANI Comment:Testing performed by : [address] [address] UA reflex comment Reflex to microscopic UA will be performed. KALANI Comment:Testing performed by : [facility], [address] [place] [address]., [address] Urine 04/05/2021 7:58 PM DIRECTOR [employer] MARKET[employer]ATEGIES 04/05/2021 8:11 PM DIRECTOR SE[employer] MARKETING [employer]ATEGIES Narrative KALANI - 04/05/2021 8:16 PM DIRECTOR SE[employer] MARKETING [employer]ATEGIES ?? Urine pH is affected by diet, medications, systemic acid-base disturbances, and renal tubular function. ??pH may affect urinary stone formation. ??For example, urine pH below 6.0 may help reduce the tendency for calcium phosphate stones and pH greater than 6.0 may reduce the tendency for uric acid stone formation. Source: [facility] [place]. Last revised 05-02-2017 us Harriet EATON LAB MICROBIOLOGY - GENERAL ORDERABLES Final Result KALANI [address] [facility] Department [place] [address] * eGFR (04/05/2021 7:47 PM DIRECTOR SE[employer] MARKETING [employer]ATEGIES) eGFR 50 mL/min/1. 73 m2 KALANI Comment: Interpretive Data Reference Interval Normal ?>/= [...] was last reviewed 2021. Testing performed by: [address] [address] Blood 04/05/2021 7:47 PM DIRECTOR [employer] MARKETING [employer]GIES 04/05/2021 7:54 PM DIRECTOR SEARCH MARKETING STRATEGIES Harriet EATON LAB BLOOD ORDERABLES Final Result [facility] [address] [facility] Department [place] [address] * Differential, auto (04/05/2021 7:47 PM DIRECTOR [employer] MARKET[employer]ATEGIES) Neutrophil abs 4.4 1.7 - 6.5 K/cumm KALANI Comment:Testing performed by : [address] [address] Imm gran abs 0.0 0.0 - 0.1 K/cumm KALANI Comment:Testing performed by : [address] [address] Lymphocyte abs 1.6 0.8 - 3.3 K/cumm KALANI Comment:Testing performed by : [address] [address] Monocyte abs 0.6 0.2 - 0.8 K/cumm KALANI Comment:Testing performed by : [address] [address] Eosinophil abs 0.1 0.0 - 0.5 K/cumm [facility] Comment:Testing performed by : [address] [address] Basophil abs 0.0 0.0 - 0.1 K/cumm [facility] Comment:Testing performed by : [address] [address] Neutrophil pct 64.7 % [facility] Comment: Interpretive Data Percent cell count reference ranges are not reported, since discordance with absolute values may lead to misinterpretation of CBC data. Current Interpretive Data was last revised on 2017. Testing performed by: [address] [address] Imm gran pct 0.3 % [facility] Comment: Interpretive Data Percent cell count reference ranges are not reported, since discordance with absolute values may lead to misinterpretation of CBC data. Current Interpretive Data was last revised on 2017. Testing performed by: [address] [address] Lymphocyte pct 24.0 % [facility] Comment: Interpretive Data Percent cell count reference ranges are not reported, since discordance with absolute values may lead to misinterpretation of CBC data. Current Interpretive Data was last revised on 2017. Testing performed by: [address] [address] Monocyte pct 8.5 % [facility] Comment: Interpretive Data Percent cell count reference ranges are not reported, since discordance with absolute values may lead to misinterpretation of CBC data. Current Interpretive Data was last revised on 2017. Testing performed by: [address] [address] Eosinophil pct 2.1 % [facility] Comment: Interpretive Data Percent cell count reference ranges are not reported, since discordance with absolute values may lead to misinterpretation of CBC data. Current Interpretive Data was last revised on 2017. Testing performed by: [address] [address] Basophil pct 0.4 % [facility] Comment: Interpretive Data Percent cell count reference ranges are not reported, since discordance with absolute values may lead to misinterpretation of CBC data. Current Interpretive Data was last revised on 2017. Testing performed by: [address] [address] Blood 04/05/2021 7:47 PM DIRECTOR SE[employer] MARKETING [employer]ATEGIES 04/05/2021 7:54 PM DIRECTOR SEARCH MARKETING STRATEGIES Harriet EATON LAB BLOOD ORDERABLES Final Result KALANI [address] [facility] Department [place] [address] * Influenza A/B, RSV, and COVID-19 PCR Nasopharyngeal (04/05/2021 7:47 PM DIRECTOR SE[employer] MARKETING [employer]ATEGIES) Pathologist [facility] COVID-19 RNA Negative Negative KALANI Comment:Testing performed by : [address] [address] Influenza A RNA Negative Negative KALANI Comment:Testing performed by : [address] [address] Influenza B RNA Negative Negative KALANI Comment:Testing performed by : [address] [address] RSV RNA Negative Negative KALANI Comment: Interpretive data: This test is performed using the [employer] Xpert Xpress CoV-2/Flu/RSV plus assay. This is a multiplex, real-time reverse transcriptase PCR assay intended for the qualitative detection of nucleic acid from SARS-CoV-2, influenza A, influenza B, and respiratory syncytial virus. This assay has been reviewed by the FDA for Emergency Use Authorization (EUA). The performance characteristics have been verified by the performing laboratory. Results must be considered in the clinical context, and a negative result does not rule out infection. Interpretive Data last revised 2021. Testing performed by: [address] [address] First COVID-19 test? Unknown KALANI Comment:Testing performed by : [address] [address] [employer] in healthcare? Unknown KALANI Comment:Testing performed by : [address] [address] status? No KALANI Comment:Testing performed by : [facility], [address] [place] [address]., [address] Group care resident? Unknown KALANI Comment:Testing performed by : [facility], [address] [place] [address], [place]., [address] Hospitalized? Unknown KALANI Comment:Testing performed by : [address], [place]., [address] Is patient in ICU? Unknown KALANI Comment:Testing performed by : [facility], [address] [place] [address], [place]., [address] Symptomatic as defined by CDC? Yes KALANI Comment:Testing performed by : [address], [place]., [address] Nasopharyngeal 04/05/2021 7: 47 PM DIRECTOR [employer]ATEGIES 04/05/2021 7:54 PM DIRECTOR [employer] MARKETING [employer]ATEGIES Narrative KALANI - 04/05/2021 8:58 PM DIRECTOR [employer] MARKET[employer]ATEGIES Date of Symptom Onset->04/05/21 Reason for testing?->Symptomatic (not immunocompromised) Known exposure to confirmed or suspected COVID-19 case?->No Harriet EATON LAB MICROBIOLOGY - GENERAL ORDERABLES Final Result Performing Organization Address [facility]/ZIP Co de Phone Number [address] [place] [address] * TSH reflex to free T4 (04/05/2021 7:47 PM DIRECTOR [employer] MARKET[employer]ATEGIES) TSH 1.51 0.30 - 4.20 mcIUnit/mL KALANI Comment:Testing performed by : [address] [address] Blood 04/05/2021 7:47 PM DIRECTOR [employer] MARKETING [employer]ATEGIES 04/05/2021 7:54 PM DIRECTOR SEARCH MARKETING STRATEGIES Harriet EATON LAB BLOOD ORDERABLES Final Result Performing Organization Address City/[facility] Co de Phone Number [address] [place] [address] * (ABNORMAL) Troponin T high-sensitivity series (baseline, 2hr, 4hr, 6hr) (04/05/2021 7:47 PM DIRECTOR [employer] MARKET[employer]ATEGIES) Trop T hs 19(H) <=14 ng/L KALANI Comment: Interpretive Data For further hscTnT resources including the diagnostic algorithm and an aid in interpretation, copy and paste this link: https://nrl.testcatalog.org/show/hsTrop Current Interpretive Data last revised 2020. Testing performed by: [address] [address] Blood 04/05/2021 7:47 PM DIRECTOR SE[employer] MARKETING [employer]ATEGIES 04/05/2021 7:54 PM DIRECTOR SEARCH MARKETING STRATEGIES Harriet EATON LAB BLOOD ORDERABLES Final Result KALANI [address] [facility] [place] [address] * Comprehensive metabolic panel (04/05/2021 7:47 PM DIRECTOR SE[employer] MARKETING STRATEGIES) Pathologist [facility] Sodium 143 135 - 145 mmol/L KALANI Comment:Testing performed by : [address] [address] Potassium, pl 4.2 3.3 - 4.9 mmol/L KALANI Comment:Testing performed by : [address] [address] Chloride 106 97 - 110 mmol/L KALANI Comment:Testing performed by : [address] [address] CO2 28 22 - 32 mmol/L KALANI Comment:Testing performed by : [address] [address] Anion gap 9 2 - 15 mmol/L KALANI Comment:Testing performed by : [address] [address] BUN 18 8 - 25 mg/dL KALANI Comment:Testing performed by : [address] [address] Creatinine 1.10 0.60 - 1.10 mg/dL KALANI Comment:Testing performed by : [address] [address] Glucose 100 70 - 199 mg/dL [facility] Comment: Interpretive Data Fasting glucose [...] classification and Diagnosis of Diabetes Diabetes Care 2017;40 (Suppl. 1):S11. Current interpretive data was last revised 2017. Testing performed by: [address] [address] Calcium 9.0 8.5 - 10.3 mg/dL [facility] Comment:Testing performed by : [address] [address] Bilirubin, total 0.4 0.1 - 1.2 mg/dL [facility] Comment:Testing performed by : [address] [address] Protein, pl 6.5 6.5 - 8.5 g/dL [facility] Comment:Testing performed by : [address] [address] Albumin 3.7 3.5 - 5.0 g/dL [facility] Comment:Testing performed by : [address] [address] Alk phos 86 40 - 130 Units/L [facility] Comment:Testing performed by : [address] [address] ALT 16 7 - 45 Units/L [facility] Comment:Testing performed by : [address] [address] [address] AST 25 10 - 45 Units/L [facility] Comment: Slightly HEMOLYZED: Hemolysis interferes with the above test. Testing performed by: [address] [address] Blood 04/05/2021 7:47 PM DIRECTOR SEARCH MARKETING STRATEGIES 04/05/2021 7:54 PM DIRECTOR SEARCH MARKETING STRATEGIES Harriet EATON LAB BLOOD ORDERABLES Final Result KALANI [address] [facility] [place] [address] * (ABNORMAL) CBC with auto differential (04/05/2021 7:47 PM DIRECTOR SEARCH MARKETING STRATEGIES) [facility] WBC 6.7 3.8 - 9.9 K/cumm KALANI Comment:Testing performed by : [address] [address] Hgb 15.2 11.9 - 15.5 g/dL KALANI Comment:Testing performed by : [address] [address] Hct 47.8(H) 35.6 - 45.5 % KALANI Comment:Testing performed by : [address] [address] Plt 211 150 - 400 K/cumm KALANI Comment:Testing performed by : [address] [address] MPV 10.6 9.1 - 12.3 fL KALANI Comment:Testing performed by : [address] [address] RBC 4.93 3.90 - 5.20 M/cumm KALANI Comment:Testing performed by : [address] [address] MCV 97.0(H) 81.3 - 96.4 fL KALANI Comment:Testing performed by : [address] [address] MCH 30.8 27.1 - 33.3 pg KALANI Comment:Testing performed by : [address] [address] MCHC 31.8(L) 32.3 - 35.7 g/dL KALANI Comment:Testing performed by : [address] [address] RDW CV 13.6 11.1 - 14.9 % KALANI HUSAIN Comment:Testing performed by : [facility], [address] [place] [address]., [address] RDW SD 48.6(H) 35.7 - 48.1 fL KALANI HUSAIN Comment:Testing performed by : [facility], [address] [place] [address]., [address] NRBC abs 0.00 0.00 - 0.01 K/cumm KALANI Comment:Testing performed by : [address] [address] Blood 04/05/2021 7:47 PM DIRECTOR SEARCH MARKETING STRATEGIES 04/05/2021 7:54 PM DIRECTOR SEARCH MARKETING STRATEGIES us Harriet EATON LAB BLOOD ORDERABLES Final Result KALANI [address] [facility] [place] [address] * (ABNORMAL) Pro B-type natriuretic peptide (04/05/2021 7:47 PM DIRECTOR SEARCH MARKETING STRATEGIES) NT-proBNP 793(H) <=450 pg/mL KALANI HUSAIN Comment: Interpretive Comments: A. Dyspnea in Acute Care Setting All Ages: ?< 300 pg/ml, acute heart failure unlikely. < 50 yrs: ?300 - 450 pg/ml, further investigation warranted. ? > 450 pg/ml, acute heart failure likely. 50 - 74 yrs: ? 300 - 900 pg/ml, further investigation warranted. ? > 900 pg/ml, acute heart failure likely . > or = 75 yrs: ? 450 - 1800 pg/ml, further investigation warranted. ? > 1800 pg/ml, acute heart failure likely. B. Non-acute Setting < 75 yrs ? < 125 pg/ml, rules out heart failure. ? > or = 125 pg/ml, further investigation warranted. > or = 75 yrs ?< 450 pg/ml, rules out heart failure. ? > or = 450 pg/ml, further investigation warranted. - Knowledge of each individual patient's NT-proBNP range may be more useful than using similar cut-points for every patient. Please note that marked elevations in NT-proBNP levels may be observed in state other than Left Ventricular Congestive Failure, including: acute coronary syndromes, right heart strain/failure (including pulmonary embolism and cor pulmonale), critical illness, renal failure, as well as advanced age. - References: 1. Ching MANZANARES et.al. Eur Heart J. 2006:27:330-337. 2. Racquel HAILE, Margy SOLARES. J. AM Josias Cardiol: Cardiovasc Imag. 2009;2: 216- 225. Interpretive Data Last Revised Date: 2017. Testing performed by: [facility], [address] [place] [address]., [address] Blood 04/05/2021 7:47 PM DIRECTOR SEARCH MARKETING STRATEGIES 04/05/2021 7:54 PM DIRECTOR SEARCH MARKETING STRATEGIES us Harriet EATON LAB BLOOD ORDERABLES Final Result Performing Organization Address City/State/[facility] Co de Phone Number [facility] [address] [facility] [place] [address] * XR Chest 1 Vw Portable (04/05/2021 7:43 PM DIRECTOR SEARCH MARKETING STRATEGIES) Anatomical Region Laterality Modality Body, Chest N/A Computed Radiogr aphy 04/05/2021 8:53 PM DIRECTOR SEARCH MARKETING STRATEGIES Narrative 04/05/2021 8:54 PM DIRECTOR SEARCH MARKETING STRATEGIES EXAM DESCRIPTION: ?? XR CHEST 1 VIEW REASON FOR STUDY: ?? general weakness ?? weakness ??X 2 weeks and shortness of breath, diarrhea, nausea and vomiting. ?? Decreased appetite ?? TECHNIQUE: ?? Frontal ??radiographic view of the chest acquired. COMPARISON: ?? 01/30/2017 FINDINGS: Slight increase in coarse bilateral interstitial opacities compared to 2017. ?? No gross consolidation. ??No pleural effusion or pneumothorax. Heart size and mediastinal contours are normal. IMPRESSION: ?? 1. ?? Increased coarse bilateral interstitial opacities compared to 2017. ??This is favored to represent scarring. ?? THIS IS AN ELECTRONICALLY VERIFIED FINAL REPORT 04/05/2021 8:54 PM - Electronically signed by ??Oneil Puckett M.D. AG: D: ??04/05/2021 8:54 PM T: ??04/05/2021 8:54 PM Report ID: [id number] Reading Location: ??[id number] Procedure Note Oneil Puckett MD - 04/05/2021 EXAM DESCRIPTION: XR CHEST 1 VIEW REASON FOR STUDY: general weakness weakness X 2 weeks and shortness of breath, diarrhea, nausea andvomiting. Decreased appetite TECHNIQUE: Frontal radiographic view of the chest acquired. COMPARISON: 01/30/2017 FINDINGS: Slight increase in coarse bilateral interstitial opacities compared [id number]. No gross consolidation. No pleural effusion or pneumothorax. Heart size and mediastinal contours are normal. IMPRESSION: 1. Increased coarse bilateral interstitial opacities compared to 2017.This is favored to represent scarring. THIS IS AN ELECTRONICALLY VERIFIED FINAL REPORT 04/05/2021 8:54 PM - Electronically signed by Oneil Puckett M.D. AG: [email or web address] Report ID: [id number] Reading Location: [place] [address] Harriet EATON IMG XR PROCEDURES Final Re sult * ECG 12 lead (04/05/2021 7:40 PM DIRECTOR SEARCH MARKETING STRATEGIES) Ventricular Rate EKG/Min 80 BPM [facility] Atrial Rate 80 BPM [facility] MT-Interval (MSEC) 136 ms [facility] QRS-Interval (MSEC) 74 ms [facility] QT-Interval (MSEC) 386 ms [facility] QTc 445 ms [facility] P [place] 86 degrees [facility] R [place] 22 degrees [facility] T [place] 70 degrees [facility] Diagnosis Normal sinus rhythm with sinus arrhythmia Nonspecific ST and T wave abnormality Abnormal ECG No previous ECGs available [facility] 04/05/2021 7:40 PM DIRECTOR SEARCH MARKETING STRATEGIES 04/06/2021 11:37 AM DIRECTOR SEARCH MARKETING STRATEGIES Harriet EATON ECG ORDERABLES Final Resu lt [facility] documented in this encounter Visit Diagnoses Diagnosis Diarrhea, unspecified type- Primary Acute cystitis with hematuria documented in this encounter Administered Medications Inactive Administered Medications - up to 3 most recent administrations Medication Order MAR Action Action Date Dose Rate Site cefTRIAXone (ROCEPHIN) 1,000 mg/10 mL in sterile water (premix) 1,000 mg 1,000 mg, intravenous, at 600 mL/hr, Administer over 1 Minutes, Once, On Sat04/05/21 at 2351, For 1 dose, Indications: Urinary Tract/Genitourinary InfectionIndications:Urinar y Tract/Genitourinary Infection Given 04/06/2021 12:02 AM DIRECTOR SEARCH MARKETING STRATEGIES 1,000 mg 600 mL/hr cloNIDine (CATAPRES) tablet 0.2 mg 0.2 mg, oral, Once, On Marily 04/06/21 at 0120, For 1 dose Given 04/06/2021 1:23 AM DIRECTOR SEARCH MARKETING STRATEGIES 0.2 mg documented in this encounter Active and Recently Administered Medications Times are shown in DIRECTOR SEARCH MARKETING STRATEGIES. Scheduled Medication Order 04/04/2021 04/05/2021 04/06/2021 cefTRIAXone (ROCEPHIN) 1,000 mg/10 mL in sterile water (premix) 1,000 mg (COMPLETED) 1,000 mg, intravenous, at 600 mL/hr, Administer over 1 Minutes, Once, On 04/05/21 at 2351, For 1 dose, Indications: Urinary Tract/Genitourinary Infection 0002 (Given - Provid er: Kelin Cohn) cloNIDine (CATAPRES) tablet 0.2 mg (COMPLETED) 0.2 mg, oral, Once, On Marily 04/06/21 at 0120, For 1 dose 0123 (Given - Provid er: Alexandria Dahl RN) documented in this encounter Orders IV Count Last Ordered Date First Orde red Date SALINE LOCK IV 1 04/05/2021 documented in this encounter
--- OUTSIDE RECORDS SUMMARY | 2024-05-01 13:47 | XMS_ITS | Encounter Summary ---
Author Organization [facility] Healthcare Address [address] [place] [address] Care Team Providers Care Senior Foreman Name Role Phone Unavailable Primary Care Provider Unavailabl e Encounter Details Date Type Department Care Team (Late st Contact Info) Description 11/03/2013 8:36 AM CDT - 11/04/2013 10:55 AM CDT Hospital Encounter [facility] Giovani Meade MD [address] [place] [address] Other specified cardiac dysrhythmias; Coronary atherosclerosis of [place] coronary artery; Postsurgical percutaneous transluminal coronary angioplasty status; Occlusion and stenosis of carotid artery; Essential hypertension; Other and unspecified hyperlipidemia; FDC current use of anticoagulant therapy Social History Tobacco Use Types Packs/Day Years Used Date Smoking Tobacco: Never Assessed Comments Unknown Sex and Gender Information Value Date Recorded Sex Assigned at Not on file Legal Sex Female 7:18 PM [employer] DEVEL[employer] Gender Identity Not on file Sexual Orientation Not on file documented as of this encounter Last Filed Vital Signs Vital Sign Reading Time Taken Comments Blood Pressure 127/49 11/04/2013 8:11 AM CDT Pulse 88 11/04/2013 8:11 AM CDT Temperature - - Respiratory Rate - - Oxygen Saturation - - Inhaled Oxygen Concentration - - Weight 85.7 kg (188 lb 15 oz) 11/04/2013 6:59 AM CDT Height 157.5 cm (5' 2.01 ) 11/03/2013 5:17 PM CD T Body Mass Index 34.55 11/03/2013 5:17 PM CDT documented in this encounter Discharge Summaries * Provider, MD Sonny - 11/04/2013 12:00 AM CDT DISCHARGE SUMMARY Patient: EMERALD MYERS Account: [id number] Room No: 910-01 : 1935 Patient Type: SDS Attend.: Giovani Gao M.D. Admit Date: 11/03/2013 Dict.: Giovani Gao M.D. Disch. Date: 11/04/2013 Discharge Diagnoses: 1. Supraventricular tachycardia, symptomatic. 2. Premature ventricular contractions, symptomatic. 3. Palpitations. 4. Known coronary artery disease. Referring Physician: Dr. Bello Granado Procedures Done: Comprehensive cardiac electrophysiological study right atrial, left atrial, right ventricular pacing with and without provocative medications attempting to induce and reduce arrhythmia. Three-dimensional mapping and ablation of cavotricuspid isthmus dependent flutter. No PVC ablation was done because during anesthesia administration PVCs were totally suppressed and only multifocal rare PVCs were seen with aggressive ventricular pacing. Hospital Course: The patient tolerated the procedure well. She was transferred to a telemetry bed. The patient was seen and examined this morning. Review of Systems: Denies any focal facial or body weakness. Pulmonary: Denies worsening shortness of breath. Cardiac: Denies recurrence of palpitations. Psychiatric: Denies feeling anxious or depressed. Physical Examination: Lungs: Clear. No wheezing. Heart: Regular rate and rhythm. No gallop. Vascular: No hematomas in the right neck or groins site. The patient is steady on her feet when she stands up. Telemetry reviewed. Impression and Recommendation: Will discharge patient home today. Medication on Discharge: Continue same medications, except stop Coumadin. Followup: Follow up with Dr. Gao in about a week. Thank you very much Dr. Granado, for allowing me to participate in this patient's care. Total Care of Patient: More than 30 minutes. Melany Hansen/ct TD: 11/04/2013 18:04 Authenticated by Giovani Gao MD On 11/05/2013 08:21:46 AM documented in this encounter H&P Notes * ProviderSonny MD - 11/03/2013 12:00 AM CDT HISTORY AND PHYSICAL Patient: EMERALD MYERS Account: [id number] Room No: CT-05 : 1935 Patient Type: SDS Attend.: Giovani Gao M.D. Admit Date: 11/03/2013 Dict.: Giovani Gao M.D. Disch. Date: PROCEDURE PLANNED EP study of arrhythmia ablation, possible pacemaker defibrillator implantation. INDICATION PVC's symptomatic, ventricular tachycardia nonsustained. HISTORY The patient is a 78-year-old female who was referred for EP study and arrhythmia ablation due to significant cardiac arrhythmia symptoms. She is known to have coronary artery disease with coronary artery stenting, non-obstructive carotid artery disease, hypertension, hyperlipidemia. She was seen in our office in September 2012. Options of treatment were discussed. After indications, alternatives, risks, complications were discussed in detail including, but not limited to stroke, heart attack, cardiovascular complication requiring surgery, pain, bleeding, inability to ablate arrhythmia, recurrence or need for a second procedure, and in rare case , the patient agreed to proceed with planned procedure and gave informed consent. ALLERGIES MULTIPLE INCLUDING CIPRO, SULFA, ADHESIVE TAPE. MEDICATIONS Reviewed and outlined in medical records. Specifically, the patient is on Coumadin currently. SOCIAL HISTORY . FAMILY HISTORY Significant for heart disease. REVIEW OF SYSTEMS Denies any focal facial or body weakness. Cardiac: Continues to have palpations and irregular beat. Pulmonary: Denies wheezing. Psychiatric: Denied feeling anxious or depressed. PHYSICAL EXAMINATION GENERAL: No focal weakness. Does not appear to be in acute distress. PERTINENT LABORATORIES White count 7.4, H and H 11.7 and 38.5, platelets 267, BUN 16, glucose 115, creatinine 0.81, potassium 4.6 normal, GFR measuring 69, INR 2.85. PERTINENT AVAILABLE INFORMATION Reviewed. IMPRESSION AND PLAN 1. PVC's. 2. Nonsustained ventricular tachycardia. Will proceed with GREY WASHER study, possible arrhythmia ablation. Thank you for allowing me to participate in the care of your patient. Giovani Gao M.D. SK/dd TD: 11/03/2013 09:51 Authenticated and Edited by Giovani Gao MD On 11/04/13 7:24:25 AM documented in this encounter Plan of Treatment Not on file documented as of this encounter Procedures Procedure Name Priority Date/Time Associated Diagnosis Comments DISCHARGE LABORATORY CUMULATIVE REPORT 11/04/2013 BLOOD ABO, RH, INDIRECT AB SCREEN Routine 11/03/2013 11:07 AM CDT CARDIAC CATHETERIZATION Routine 11/04/19 14 9:54 AM CDT PLASMA PROTHROMBIN TIME (PT) Routine 11/03/2013 9:05 AM CDT PLASMA COMPREHENSIVE METABOLIC PANEL Routine 11/03/2013 9:05 AM CDT BLOOD CELL COUNT (CBC) Routine 4 9:05 AM CDT CARDIOLOGY PROCEDURE LOG 11/03/2013 documented in this encounter Results * DISCHARGE LABORATORY CUMULATIVE REPORT (11/04/2013) Narrative 11/04/2013 Ordered by an unspecified provider. us Historical Provider LAB BLOOD ORDERABLES Prema l Result * Blood ABO, Rh, indirect ab screen (11/03/2013 11:07 AM CDT) ABO, Rho(D) O HISTORIC AL RESULTS Rho(D) typing Positive HISTOR ICAL RESULTS Jose Manuel, indirect Negative HISTORICAL RESULTS Blood specimen (specimen) 11/03/2013 11:07 AM CDT Giovani Gao MD LAB BLOOD ORDERABLES Final Result HISTORICAL RESULTS * Cardiac Catheterization (11/03/2013 9:54 AM CDT) Anatomical Region Laterality Modality X-Ray Angiograph y 11/03/2013 9:54 AM CDT Historical Provider CV CARDIAC CATH PROCEDURE S Final Result * (ABNORMAL) Plasma prothrombin time (PT) (11/03/2013 9:05 AM CDT) Prothrombin time (PT) 30.1(H) 11.5 - 15.5 seconds HISTORICAL RESULTS INR 2.85(H) 0.81 - 1.21 HISTORIC AL RESULTS Plasma 11/03/2013 9:05 AM CDT Result [facility] Giovani Gao MD LAB BLOOD ORDERABLES Final Result Performing Organization Address City/[facility] de Phone Number HISTORICAL RESULTS * (ABNORMAL) Blood cell count (CBC) (11/03/2013 9:05 AM CDT) WBC 7.4 5.0 - 10.0 K/cumm HISTORICAL RESULTS RBC 4.80 4.20 - 5.20 M/cumm HISTORICAL RESULTS Hgb 11.7(L) 12.0 - 15.0 g/dl HISTORICAL RESULTS Hct 38.5 37.0 - 47.0 % HISTORICAL RESULTS MCV 80.2(L) 82.0 - 96.0 fl HISTORICAL RESULTS MCH 24.4(L) 27.0 - 32.0 pg HISTORICAL RESULTS MCHC 30.4 29.0 - 35.0 g/dl HISTORICAL RESULTS Platelets 267 150 - 450 K/cumm HISTORICAL RESULTS RDW 47.0(H) 36.4 - 46.3 fl HISTORICAL RESULTS Rdw 16.1(H) 11.5 - 14.5 % HISTORICAL RESULTS MPV 10.9 8.6 - 12.6 fl HISTORICAL RESULTS Blood specimen (specimen) 11/03/2013 9:05 AM CDT Result [facility] Giovani Gao MD LAB BLOOD ORDERABLES Final Result HISTORICAL RESULTS * (ABNORMAL) Plasma comprehensive metabolic panel (11/03/2013 9:05 AM CDT) BUN 16 8 - 24 mg/dl HISTORICAL RESULTS Glucose 115 70 - 199 mg/dl HISTORICAL RESULTS Sodium 138 135 - 145 mmol/L HISTORICAL RESULTS K, pl 4.6 3.5 - 5.1 mmol/L HISTORICAL RESULTS Chloride 109 100 - 114 mmol/L HISTORICAL RESULTS CO2 27 22 - 32 mmol/L HISTORICAL RESULTS Creatinine 0.81 0.60 - 1.30 mg/dl HISTORICAL RESULTS AST 24 7 - 40 Units/L HISTORICAL RESULTS ALT 13 1 - 45 Units/L HISTORICAL RESULTS Alk phos 71 30 - 110 Units/L HISTORICAL RESULTS Calcium 8.5 8.4 - 10.5 mg/dl HISTORICAL RESULTS Bilirubin 0.60 0.10 - 1.30 mg/dl HISTORICAL RESULTS Protein, pl 6.9 6.0 - 8.3 g/dl HISTORICAL RESULTS Alb 3.3 3.2 - 4.8 g/dl HISTORICAL RESULTS Globulin 3.6 2.0 - 4.3 g/dl HISTORICAL RESULTS A. gap 7(L) 8 - 16 mmol/L HISTORICAL RESULTS eGFR 69 90 - 200 ml/min/1.7 3 m2 HISTORICAL RESULTS Comment: If this individual is -Egyptian, multiply result by 1.21 Repeated results of less than 60 is indicative of chronic kidney disease. MDRD formula has not been validated on individuals greater than 70 years old. Plasma 11/03/2013 9:05 AM CDT Giovani Gao MD LAB BLOOD ORDERABLES Final Result HISTORICAL RESULTS * CARDIOLOGY PROCEDURE LOG (11/03/2013) Anatomical Region Laterality Modality X-Ray Angiograph y Narrative 11/03/2013 Ordered by an unspecified provider. Historical Provider CV CARDIAC CATH PROCEDURE S Final Result documented in this encounter Visit Diagnoses Diagnosis Other specified cardiac dysrhythmias Coronary atherosclerosis of [place] coronary artery Postsurgical percutaneous transluminal coronary angioplasty status Occlusion and stenosis of carotid artery Essential hypertension Unspecified essential hypertension Other and unspecified hyperlipidemia FDC current use of anticoagulant therapy documented in this encounter
--- OUTSIDE RECORDS SUMMARY | 2024-05-01 13:49 | XMS_ITS | Continuity of Care Document ---
Author Organization [facility] Address [address] [place] [address] [address] [place] [address] Phone Care Team Providers Care Senior Clinical Research Scientist Name Role Phone Talib Kaplan Unavailable Unavailable Procedures Procedure Date Office/outpatient Visit, Est Progressive Lens, Plastic Tint Photochromatic, Plastic Tax - Medical Eye Exam & Treatment Refraction Eye Exam & Treatment Eye Exam & Treatment Advance Directives Directive Yes / No Effective Date File Name No Information Encounters Encounter Description Practice Location Reason(s) For Visit Diagnoses Date Provider Providers Copied on Encounter Office/outpat ient Visit, Est [facility], [id number] [place] [address] [address], [place], [place], [id number], [place] tel:[phone] [facility] No Information 1 0 Rosaura Mayers. [facility] , [address], [place], [address], [place]. tel:[phone] [facility], [address] [place] [address] [address], [place], [place], [id number], [place] tel:[phone] [facility] No Information 3-[address] [employer] [facility] . [address] [place] [address], [address], [place], [place], [id number], [place]. tel:[phone] Referring Provider: Haris Smith[address], [place], [address]. tel:[phone] Provider: Airam Hildayandy, [address] [facility], [place], [place], [facility]. tel:[phone] [facility] Eye [facility], [address], [place], [place], [id number], tel:[phone] [facility] No Information Mar- [address] , [address], [place], [place], [facility], . tel:[phone] [facility] Eye [facility], [address], [place], [place], [id number], tel:[phone] [facility] No Information Sep- 2-[address]. [address] [facility] , [address], [place], [place], [facility], . tel:[phone] [facility] Eye [facility], [address], [place], [place], [id number], tel:[phone] [facility] No Information [address] [facility] , [address], [place], [place], [facility], . tel:[phone] Family History Family Member Type Diagnosis Age At Onset No Information Payers Payer name Insurance type Covered democrat ID Authorashisha tidarwin(s) Medicare [facility] [id number] [facility] Commercial [id number] Social History Type Description Quantity Date Captured Comments Sex Female Smoking Status No Information Chief Complaint And Reason For Visit No Information Reason For Referral Reason For Referral No Information History Of Present Illness Encounter Date Complaint History Of Prese nt Illness No Information Functional Status Date Functional Assessmen t No Information Instructions Date Instruction Additional Infor mation No Information Assessments Type Assessment Date No Information Patient Care Teams Name Effective Dates (start - stop) Status Members No Information
== END 2024-04-24 11:16 ==
PROVIDERS: Emergency Provider Student in an Organized Health Care Education/Training Program
DX: M47.812 Spondylosis without myelopathy or radiculopathy, cervical region (principal); S06.5XAA Traumatic subdural hemorrhage with loss of consciousness status unknown, initial encounter; M25.552 Pain in left hip; Z87.891 Personal history of nicotine dependence; Z87.440 Personal history of urinary (tract) infections; J44.9 Chronic obstructive pulmonary disease, unspecified; D64.9 Anemia, unspecified; F41.9 Anxiety disorder, unspecified; F32.A Depression, unspecified; E78.5 Hyperlipidemia, unspecified; I25.10 Atherosclerotic heart disease of native coronary artery without angina pectoris; I10 Essential (primary) hypertension; Z96.652 Presence of left artificial knee joint; W19.XXXA Unspecified fall, initial encounter
CPT/HCPCS: 70450; 72125; 73502; 99284